=== PATIENT | female | born 1980 | race Caucasian/White ===

== ENCOUNTER 2017-10-26 11:37 | Emergency (ER) | payer BC, OTHER ==
[2017-10-26] MEDS ORDERED: NA CHLORIDE 0.9% 1,000 ML ONE (12:13)
[2017-10-26] MEDS ORDERED: PROMETHAZINE 25 MG/ML VIAL ONE (12:13)
[2017-10-26] MEDS ORDERED: PANTOPRAZOLE 40 MG INJ ONE (12:13)
[2017-10-26 12:20] LABS: Absolute Lymphocytes (CBC) 2.6 K/uL (0.7-4.9); Absolute Monocytes 1.2 K/uL (0.1-1.3); Absolute Neutrophil 9.5 K/uL (1.8-8.0); Basophils % 0.4 % (0-1.3); Eosinophils % 0.8 % (0-4.4); Hematocrit 29.5 % (36.0-45.0); Lymphocytes % 19.3 % (15.3-44.8); MCH 21.1 pg (27.0-35.0); MCV 67.6 fL (80-100); MPV 8.6 fL (7.6-11.3); Monocytes % 8.7 % (3.3-12.3); RBC Red Blood Cell Count 4.36 M/uL (3.86-4.86)
[2017-10-26 13:02] LABS: Blood Morphology Comment NOTED (NOT SEEN); Hypochromasia 1+; Platelet Estimate ADEQ; Urine White Blood Cell Casts OK
[2017-10-26 13:32] LABS: Urine Amorphous Sediment 3+ /HPF (NONE SEEN); Urine Bacteria <20 /HPF (<20); Urine Culture Reflex Order NOT NEEDED; Urine RBC <5 /HPF (NONE SEEN)
[2017-10-26 14:00] LABS: Potassium 3.3 mmol/L (3.5-5.1); Sodium Level 138 mmol/L (136-145)
[2017-10-26 14:01] LABS: ALT/SGPT 19 U/L (12-78); AST/SGOT 14 U/L (15-37); Alkaline Phosphatase 89 U/L (45-117); BUN Blood Urea Nitrogen 12 mg/dL (7-18); Bicarbonate 29 mmol/L (21-32); Glucose Level 100 mg/dL (74-106)
[2017-10-26 14:02] LABS: Albumin 3.9 g/dL (3.4-5.0); Bilirubin Direct < 0.1 mg/dL (0-0.2); Bilirubin Total 0.4 mg/dL (0.2-1.0); Protein, Total 7.8 g/dL (6.4-8.2)
--- NOTE | 2017-10-26 14:37 | RAD REPORT ---
EXAM DESCRIPTION: CT - Stone Protocol - 10/26/2017 2:28 pm CLINICAL HISTORY: Abdominal pain, possible GI bleed COMPARISON: CT imaging December 2013 TECHNIQUE: All CT scans are performed using dose optimization technique as appropriate and may inclu de automated exposure control or mA/KV adjustment according to patient size. Axial 5 mm thick images were obtained without oral or IV contrast. Sagittal and coronal reformatted i mages were generated and reviewed. FINDINGS: No suspicious findings in the lung bases. The liver, spleen, and pancreas show no suspicious findings for a non IV contrast study. Gallbladder and biliary tree are also without suspicious finding. Gallstones can be occult on CT imaging. No hydronephrosis or suspicious mass in either kidney. Isodense masses and pyelonephritis are not exc luded. No urinary bladder abnormality. Uterus and ovaries show no suspicious findings. No dilated bowel loops or bowel wall thickening. No free air, free fluid or inflammatory stranding. N o bowel mass, wall thickening or adjacent stranding. A few small mesenteric lymph nodes are present. No bulky lymphadenopathy, hernia or omental thickening. No suspicious bony findings. Overall exam sensitivity is decreased when no contrast is administered. IMPRESSION: Non-contrast CT abdomen study shows no significant or suspicious finding.
[2017-10-26 14:39] LABS: Amylase Level 32 U/L (25-115); Lipase 187 U/L (73-393)
--- NOTE | 2017-10-26 15:01 | EDPHYS ---
Physician Documentation [facility] Name: Yohana Reeves Age: 37 yrs Sex: Female : 1980 Arrival Date: 10/26/2017 Time: 11:42 Bed 17 Private MD: Rolo Mckinnon ED Physician Yasmani Gaston HPI: 10/26 13:23 This 37 yrs old Female presents to ER via Ambulatory with complaints of snw Abnormal Lab Results, Vomiting. 13:23 The patient presents to the emergency department fatigue and pt found to be anemic per snw PCP, sent to ED to r/o GIB . Onset: The symptoms/episode began/occurred gradually, at an unknown time. Abdominal pain: described as. Associated signs and symptoms: Pertinent positives: near-syncope, vomiting, fatigue. Severity of symptoms: At their worst the symptoms were moderate. The patient has not experienced similar symptoms in the past. The patient has been recently seen by a physician: the patient's primary care provider, Dr. Jean 1 week(s) ago, with similar presenting complaints, and was sent to the [facility] Emergency Department for further evaluation. 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 - Social history:: Smoking status: Patient uses tobacco products, smokes one-half pack cigarettes per day. - Ebola Screening: : No symptoms or risks identified at this time. ROS: 13:22 Eyes: Negative for injury, pain, redness, and discharge, ENT: Negative for injury, snw pain, and discharge, Neck: Negative for injury, pain, and swelling, Cardiovascular: Negative for chest pain, palpitations, and edema, Respiratory: Negative for shortness of breath, cough, wheezing, and pleuritic chest pain, Back: Negative for injury and pain, : Negative for injury, bleeding, discharge, and swelling, MS/Extremity: Negative for injury and deformity, Skin: Negative for injury, rash, and discoloration, Neuro: Negative for headache, weakness, numbness, tingling, and seizure. 13:22 Constitutional: Positive for body aches, malaise, poor PO intake. 13:22 Abdomen/GI: Positive for nausea, vomiting. Exam: 12:00 Constitutional: This is a well developed, well nourished patient who is awake, alert, snw and in no acute distress. Pt states she has been feeling malaise, fatigue for 1 year, worsened over the past week. Saw Dr. Jean for some labwork. Sent to ED for possible GIB. Head/Face: Normocephalic, atraumatic. Eyes: Pupils equal round and reactive to light, extra-ocular motions intact. Lids and lashes normal. Conjunctiva and sclera are non-icteric and not injected. Cornea within normal limits. Periorbital areas with no swelling, redness, or edema. ENT: Nares patent. No nasal discharge, no septal abnormalities noted. Tympanic membranes are normal and external auditory canals are clear. Oropharynx with no redness, swelling, or masses, exudates, or evidence of obstruction, uvula midline. Mucous membranes moist. Neck: Trachea midline, no thyromegaly or masses palpated, and no cervical lymphadenopathy. Supple, full range of motion without nuchal rigidity, or vertebral point tenderness. No Meningismus. Chest/axilla: Normal chest wall appearance and motion. Nontender with no deformity. No lesions are appreciated. Cardiovascular: Regular rate and rhythm with a normal S1 and S2. No gallops, murmurs, or rubs. Normal PMI, no JVD. No pulse deficits. Respiratory: Lungs have equal breath sounds bilaterally, clear to auscultation and percussion. No rales, rhonchi or wheezes noted. No increased work of breathing, no retractions or nasal flaring. Abdomen/GI: Soft, mildly tender to suprapubic area, with normal bowel sounds. No distension or tympany. No guarding or rebound. Guaiac negative Back: No spinal tenderness. No costovertebral tenderness. Full range of motion. Skin: Warm, dry with normal turgor. Normal color with no rashes, no lesions, and no evidence of cellulitis. MS/ Extremity: Pulses equal, no cyanosis. Neurovascular intact. Full, normal range of motion. Neuro: Awake and alert, GCS 15, oriented to person, place, time, and situation. Cranial nerves II-XII grossly intact. Motor strength 5/5 in all extremities. Sensory grossly intact. Cerebellar exam normal. Normal gait. Vital Signs: 11:47 BP 120 / 60; Pulse 77; Resp 16 S; Temp 97.9(TE); Pulse Ox 97% on R/A; Weight 73.94 kg aa5 (R); Height 5 ft. 2 in. (157.48 cm) (R); Pain 8/10; 13:01 BP 107 / 68; Pulse 63; Resp 13; Pulse Ox 99% on R/A; mh5 13:47 BP 107 / 63; Pulse 68; Resp 15; Pulse Ox 98% on R/A; mh5 14:56 BP 125 / 69; Pulse 67; Resp 15; Pulse Ox 100% on R/A; mh5 11:47 Body Mass Index 29.81 (73.94 kg, 157.48 cm) aa5 MDM: 11:49 Patient medically screened. snw 15:16 Data reviewed: vital signs, nurses notes. Data interpreted: Pulse oximetry: on room air snw is 100 %. Interpretation: normal. Counseling: I had a detailed discussion with the patient and/or guardian regarding: the historical points, exam findings, and any diagnostic results supporting the discharge/admit diagnosis, lab results, radiology results, the need for outpatient follow up, to return to the emergency department if symptoms worsen or persist or if there are any questions or concerns that arise at home. Special discussion: Based on the patient's Hx, exam, and Dx evaluation, there is no indication for emergent surgery or inpatient Tx. It is understood by the patient/guardian that if the Sx's persist or worsen they need to return immediately for re-evaluation. Based on the history and exam findings, there is no indication for further emergent testing or inpatient evaluation. I discussed with the patient/guardian the need to see the producer for further evaluation of the symptoms. I discussed with the patient/guardian the need to see the primary care provider for further evaluation of the symptoms. 10/26 11:59 Order name: Amylase, Serum; Complete Time: 14:58 snw 10/26 11:59 Order name: Basic Metabolic Panel; Complete Time: 14:58 snw 10/26 11:59 Order name: CBC with Diff; Complete Time: 13:12 snw 10/26 11:59 Order name: Creatinine for Radiology; Complete Time: 12:47 snw 10/26 11:59 Order name: Hepatic Function; Complete Time: 14:58 snw 10/26 11:59 Order name: Lipase; Complete Time: 14:58 snw 10/26 11:59 Order name: Urine Microscopic Only; Complete Time: 13:43 snw 10/26 11:59 Order name: TSH; Complete Time: 14:58 snw 10/26 12:20 Order name: CBC Smear Scan; Complete Time: 13:12 EDNY 10/26 12:21 Order name: Type and Screen Tube method; Complete Time: 13:12 EDNY 10/26 12:27 Order name: Urine Dipstick--Ancillary (enter results) 10/26 12:27 Order name: Urine --Ancillary (enter results) 10/26 13:23 Order name: ABO/RH no charge; Complete Time: 13:25 EDNY 10/26 11:59 Order name: Urine Test (obtain specimen); Complete Time: 12:39 snw 10/26 11:59 Order name: IV Saline Lock; Complete Time: 12:01 snw 10/26 11:59 Order name: Labs collected and sent; Complete Time: 12:39 snw 10/26 11:59 Order name: Urine Dipstick-Ancillary (obtain specimen); Complete Time: 12:39 snw 10/26 13:47 Order name: CT Stone Protocol; Complete Time: 14:39 snw Administered Medications: 12:25 Drug: NS 0.9% 1000 ml Route: IV; Rate: 125 ml/hr; Site: right antecubital; jl7 15:17 Follow up: Response: No adverse reaction; IV Status: IV converted to saline lock; Order jl7 to discontinue infusion; IV Intake: 325ml 12:26 Drug: ProTONIX 40 mg Route: IVP; Site: right antecubital; jl7 13:00 Follow up: Response: No adverse reaction jl7 12:28 Drug: Phenergan 6.25 mg Route: IVP; Site: right antecubital; jl7 13:00 Follow up: Response: No adverse reaction; Nausea is decreased jl7 15:10 Drug: TORadol 30 mg Route: IVP; Site: right antecubital; jl7 15:10 Follow up: Response: Medication administered at discharge. jl7 Disposition: 10/26/17 15:00 Discharged to Home. Impression: Iron deficiency anemia, unspecified, Abdominal tenderness. - Condition is Stable. - Discharge Instructions: Iron Deficiency Anemia, Adult, Iron-Rich Diet, Potassium Content of Foods, Abdominal Pain, Women, Hypokalemia. - Prescriptions for Bentyl 20 mg Oral Tablet - take 1 tablet by ORAL route every 6 hours As needed; 20 tablet. promethazine 25 mg Oral Tablet - take 1 tablet by ORAL route every 6 hours As needed; 20 tablet. - Medication Reconciliation Form, Thank You Letter, Antibiotic Education, Prescription Opioid Use, Work release form form. - Follow up: Private Physician; When: 1 - 2 days; Reason: Recheck today's complaints, Continuance of care, Re-evaluation by your physician. Follow up: Emergency Department; When: As needed; Reason: Worsening of condition. Addendum: 10/29/2017 06:17 Co-signature as Attending Physician, Yasmani Gaston MD. g s Signatures: Dispatcher [employer] [facility] Ashley Kingsley, LINUX UNIX ENGINEER-C LINUX UNIX ENGINEER-Csnw Tianna Henry, RN RN aa5 Kb Martinez RN RN jl7 Yasmani Gaston MD MD gs Corrections: (The following items were deleted from the chart) 10/26 12:21 12:00 TYPE AND SCREEN+[id number].BRZ ordered. [facility] 15:31 15:00 10/26/2017 15:00 Discharged to Home. Impression: Iron deficiency anemia, jl7 unspecified; Abdominal tenderness. Condition is Stable. Forms are Medication Reconciliation Form, Thank You Letter, Antibiotic Education, Prescription Opioid Use. Follow up: Private Physician; When: 1 - 2 days; Reason: Recheck today's complaints, Continuance of care, Re-evaluation by your physician. Follow up: Emergency Department; When: As needed; Reason: Worsening of condition. snw
--- NOTE | 2017-10-26 15:01 | ER ---
Nurse's Notes [facility] Name: Yohana Reeves Age: 37 yrs Sex: Female : 1980 Arrival Date: 10/26/2017 Time: 11:42 Bed 17 Private MD: Rolo Mckinnon Diagnosis: Iron deficiency anemia, unspecified;Abdominal tenderness Presentation: 10/26 11:45 Presenting complaint: Patient states: Dr. Jean sent me here for a possible GI bleed. Pt aa5 reports having blood work done 10/20/17 and showed Hemoglobin 8.5, Hematocrit 29.7, and Iron 12. Pt c/o abd pain, N/V. Transition of care: patient was not received from another setting of care. Onset of symptoms was October 2017. Risk Assessment: Do you want to hurt yourself or someone else? Patient reports no desire to harm self or others. Initial Sepsis Screen: Does the patient meet any 2 criteria? No. Patient's initial sepsis screen is negative. Does the patient have a suspected source of infection? No. Patient's initial sepsis screen is negative. Care prior to arrival: None. 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 - Social history:: Smoking status: Patient uses tobacco products, smokes one-half pack cigarettes per day. - Ebola Screening: : No symptoms or risks identified at this time. Screenin:10 Abuse screen: Denies threats or abuse. Denies injuries from another. Nutritional jl7 screening: No deficits noted. Tuberculosis screening: No symptoms or risk factors identified. Fall Risk IV access (20 points). Total Mora Fall Scale indicates No Risk (0-24 pts). Assessment: 12:10 General: Appears in no apparent distress. uncomfortable, Behavior is calm, cooperative, jl7 appropriate for age. Pain: Denies pain. Neuro: Level of Consciousness is awake, alert, obeys commands, Oriented to person, place, time, situation. Cardiovascular: Patient's skin is warm and dry. Respiratory: Airway is patent Respiratory effort is even, unlabored, Respiratory pattern is regular, symmetrical. GI: Abdomen is round non-distended, Reports nausea, vomiting. : No signs and/or symptoms were reported regarding the genitourinary system. EENT: No signs and/or symptoms were reported regarding the EENT system. Derm: Skin is dry, Skin is pale, Skin temperature is warm. 13:00 Reassessment: Patient and/or family updated on plan of care and expected duration. Pain jl7 level reassessed. Patient is alert, oriented x 3, equal unlabored respirations, skin warm/dry/pink. 13:45 Reassessment: Pt reports intermittent lower abdominal pain, rated 7/10, does not jl7 radiate, feels sharp. Provider notified, CT ordered. 13:53 Reassessment: Chemistry orthodontic lab technician reports results will be complete in 10 min. jl7 14:30 Reassessment: Patient and/or family updated on plan of care and expected duration. Pain jl7 level reassessed. Patient is alert, oriented x 3, equal unlabored respirations, skin warm/dry/pink. 15:16 Reassessment: Provider at bedside discussing plan of care. jl7 Vital Signs: 11:47 BP 120 / 60; Pulse 77; Resp 16 S; Temp 97.9(TE); Pulse Ox 97% on R/A; Weight 73.94 kg aa5 (R); Height 5 ft. 2 in. (157.48 cm) (R); Pain 8/10; 13:01 BP 107 / 68; Pulse 63; Resp 13; Pulse Ox 99% on R/A; mh5 13:47 BP 107 / 63; Pulse 68; Resp 15; Pulse Ox 98% on R/A; mh5 14:56 BP 125 / 69; Pulse 67; Resp 15; Pulse Ox 100% on R/A; mh5 11:47 Body Mass Index 29.81 (73.94 kg, 157.48 cm) aa5 ED Course: 11:42 Patient arrived in ED. mr 11:42 Rolo Mckinnon MD is Private Physician. mr 11:47 Triage completed. aa5 11:47 Arm band placed on. aa5 11:48 Ashley Kings[facility]NP-C [facility]. snw 11:49 Yasmani Gaston MD is Attending Physician. snw 12:01 Kb Martinez, FÁTIMA is Primary Nurse. jl7 12:01 Served as a clinical operations manager during rectal exam. jl7 12:04 Initial lab(s) drawn, by me, sent to lab. Urine collected: clean catch specimen. jl7 Inserted saline lock: 20 gauge in right antecubital area, using aseptic technique. Blood collected. 12:10 Patient has correct armband on for positive identification. Placed in gown. Bed in low jl7 position. Call light in reach. Side rails up X 1. Pulse ox on. NIBP on. Warm blanket given. 13:00 Awaiting lab results. jl7 13:53 Awaiting lab results. jl7 14:24 CT completed. Patient tolerated procedure well. Patient moved to CT. Patient moved back mw3 from CT. 14:25 CT Stone Protocol In Process Unspecified. EDMS Administered Medications: 12:25 Drug: NS 0.9% 1000 ml Route: IV; Rate: 125 ml/hr; Site: right antecubital; jl7 15:17 Follow up: Response: No adverse reaction; IV Status: IV converted to saline lock; Order jl7 to discontinue infusion; IV Intake: 325ml 12:26 Drug: ProTONIX 40 mg Route: IVP; Site: right antecubital; jl7 13:00 Follow up: Response: No adverse reaction jl7 12:28 Drug: Phenergan 6.25 mg Route: IVP; Site: right antecubital; jl7 13:00 Follow up: Response: No adverse reaction; Nausea is decreased jl7 15:10 Drug: TORadol 30 mg Route: IVP; Site: right antecubital; jl7 15:10 Follow up: Response: Medication administered at discharge. jl7 Intake: 15:17 IV: 325ml; Total: 325ml. jl7 Outcome: 15:00 Discharge ordered by . snw 15:31 Patient left the ED. jl7 Signatures: Dispatcher [employer] EDMS Ashley Kingsley, JOEL DIAMOND DIE MAKER-Sonya Elkins CarlTianna, RN RN Sonya Jay Kb Rivas RN RN jl7 Ai Victoria mw3 Corrections: (The following items were deleted from the chart) 19:18 16:40 Response: No adverse reaction; Pain is decreased jl7 jl7
[2017-10-26] MEDS ORDERED: KETOROLAC 30 MG/ML INJ ONE (15:16)
[2017-10-26 15:36] VITALS: TEMP 97.9
[2017-10-26 15:40] VITALS: BP 125/69; O2SAT 100
[2017-10-26 15:47] LABS: Urine Blood NEGATIVE (NEG); Urine Glucose NEGATIVE (NEG); Urine Protein TRACE (NEG); Urine Specific Gravity 1.025 (1.005-1.030); Urine pH 5.5 (5.0-7.0)
== END 2017-10-26 15:31 | disposition home or self-care (01) ==
LOC: ER 11:37
DX: D50.9 Iron deficiency anemia, unspecified (principal); R10.819 Abdominal tenderness, unspecified site; F17.210 Nicotine dependence, cigarettes, uncomplicated
CPT/HCPCS: 36415; 74176; 76377; 80048; 80076; 81003; 81015; 81025; 82150; 83690; 84443; 85025; 86850; 86900; 86901; 96361; 96374; 96375; 99284; C9113; J2550; J7030

== ENCOUNTER 2018-03-08 09:43 | Emergency (ER) | payer OTHER ==
--- NOTE | 2018-03-08 11:09 | RAD REPORT ---
EXAM DESCRIPTION: RAD - Chest Pa And Lat (2 Views) - 03/08/2018 11:02 am CLINICAL HISTORY: Cough;Chest pain Chest pain. COMPARISON: Chest Single View dated 08/20/2016; CHEST SINGLE VIEW dated 02/28/2015; CHEST SINGLE VIEW dated 06/28/2013; CHEST SINGLE VIEW dated 03/18/2012 FINDINGS: The lungs are clear. The heart is normal in size. No displaced fractures. IMPRESSION: No acute or concerning finding suspected.
[2018-03-08] MEDS ORDERED: ONDANSETRON 4 MG (ODT) TAB ONE (11:26)
[2018-03-08] MEDS ORDERED: KETOROLAC 30 MG/ML INJ ONE (11:55)
--- NOTE | 2018-03-08 11:56 | EDPHYS ---
Physician Documentation [facility] Name: Yohana Reeves Age: 37 yrs Sex: Female : 1980 Arrival Date: 03/08/2018 Time: 09:46 Bed 20 Private MD: Jordan Jean T ED Physician Blade Haas HPI: 03/08 10:24 This 37 yrs old Female presents to ER via Ambulatory with complaints of Chest rn Pain, Shortness Of Breath. 10:24 The patient or guardian reports cough, that is intermittent, described as mild, with no rn sputum. Onset: The symptoms/episode began/occurred 2 day(s) ago. Severity of symptoms: At their worst the symptoms were mild, in the emergency department the symptoms are unchanged. 10:24 Modifying factors: The symptoms are alleviated by nothing, the symptoms are aggravated rn by nothing. The patient has not experienced similar symptoms in the past. The patient has not recently seen a physician. REports cough, sob, congestion, chest pain that shoots to back, no hemoptysis, + subjective fever. . 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 - Social history:: Smoking status: Patient uses tobacco products, smokes one-half pack cigarettes per day. - Ebola Screening: : Patient negative for fever greater than or equal to 101.5 degrees Fahrenheit, and additional compatible Ebola Virus Disease symptoms Patient denies exposure to infectious person Patient denies travel to an Ebola-affected area in the 21 days before illness onset No symptoms or risks identified at this time. - Family history:: not pertinent. - Hospitalizations: : No recent hospitalization is reported. ROS: 10:24 Constitutional: + fever and chills Eyes: Negative for injury, pain, redness, and internist, ENT: + sore throat and nasal congestion Neck: Negative for injury, pain, and swelling, Cardiovascular: + chest pain Respiratory: + cough and sob Abdomen/GI: Negative for abdominal pain, + nausea and diarrhea MS/Extremity: Negative for injury and deformity, Skin: Negative for injury, rash, and discoloration, Neuro: Negative for numbness, tingling, and seizure. Exam: 10:24 Constitutional: This is a well developed, well nourished patient who is awake, alert, rn and in no acute distress. Head/Face: Normocephalic, atraumatic. Eyes: Pupils equal round and reactive to light, extra-ocular motions intact. Lids and lashes normal. Conjunctiva and sclera are non-icteric and not injected. Cornea within normal limits. Periorbital areas with no swelling, redness, or edema. ENT: + nasal congestion and nasal speech, MMM, no stridor, no exudate or swelling in pharynx, + non-tender bilateral cervical LAD Cardiovascular: Regular rate and rhythm with a normal S1 and S2. No pulse deficits. Respiratory: Lungs have equal breath sounds bilaterally, clear to auscultation. No increased work of breathing, no retractions or nasal flaring. Abdomen/GI: soft, non-tender Skin: Warm, dry MS/ Extremity: Pulses equal, no cyanosis. Neurovascular intact. Full, normal range of motion. Equal circumference. Neuro: Awake and alert, GCS 15, oriented to person, place, time, and situation. Cranial nerves II-XII grossly intact. Motor strength 5/5 in all extremities. Sensory grossly intact. Cerebellar exam normal. Normal gait. Vital Signs: 10:09 BP 122 / 64; Pulse 77; Resp 16; Temp 98.0; Pulse Ox 100% on R/A; Weight 70.31 kg; iw Height 5 ft. 2 in. (157.48 cm); Pain 8/10; 11:10 BP 119 / 86; Pulse 94; Resp 16; Pulse Ox 98% on R/A; ca1 10:09 Body Mass Index 28.35 (70.31 kg, 157.48 cm) iw MDM: 10:13 Patient medically screened. rn 11:45 Differential Diagnosis: Bronchitis Influenza Upper Respiratory Infection Viral Syndrome rn Pneumonia. Data reviewed: vital signs, nurses notes, lab test result(s), EKG, radiologic studies, plain films, and as a result, I will discharge patient. Counseling: I had a detailed discussion with the patient and/or guardian regarding: the historical points, exam findings, and any diagnostic results supporting the discharge/admit diagnosis, lab results, radiology results, the need for outpatient follow up, to return to the emergency department if symptoms worsen or persist or if there are any questions or concerns that arise at home. Special discussion: Based on the patient's history, exam, and Dx evaluation, there is no indication for emergent intervention or inpatient Tx. It is understood by the patient/guardian that if the Sx's persist or worsen they need to return immediately for re-evaluation. I discussed with the patient/guardian in detail that at this point there is no indication for admission to the hospital. It is understood, however, that if the symptoms persist or worsen the patient needs to return immediately for re-evaluation. 03/08 10:16 Order name: Strep; Complete Time: 11:16 ss 03/08 10:16 Order name: Flu; Complete Time: 11:16 ss 03/08 10:17 Order name: XRAY Chest Pa And Lat (2 Views); Complete Time: 11:16 rn 03/08 11:09 Order name: Throat Culture EDMS 03/08 10:17 Order name: EKG; Complete Time: 10:18 rn 03/08 10:17 Order name: EKG - Nurse/Tech; Complete Time: 10:22 rn Administered Medications: 11:25 Drug: Zofran 4 mg Route: PO; ca1 11:52 Follow up: Response: Nausea is decreased hb 11:52 Drug: TORadol 30 mg Route: IM; Site: left deltoid; hb Disposition: 03/08/18 11:46 Discharged to Home. Impression: Pleurisy, Bronchitis, not specified as acute or chronic. - Condition is Stable. - Discharge Instructions: Pleurisy, Cough, Adult. - Prescriptions for Ibuprofen 800 mg Oral Tablet - take 1 tablet by ORAL route every 12 hours As needed take with food; 20 tablet. Zithromax Z- Vaughn 250 mg Oral Tablet - take 1 tablet by ORAL route as directed for 5 days Day 1 - take two (2) tablets one time. Day 2, 3, 4 , 5 take one (1) tablet once daily.; 6 tablet. - Work release form, Medication Reconciliation Form, Thank You Letter, Antibiotic Education, Prescription Opioid Use form. - Follow up: Private Physician; When: As needed; Reason: Recheck today's complaints, Re-evaluation by your physician. - Problem is new. - Symptoms have improved. Signatures: Dispatcher [employer] Rose Morin RN RN iw Nieto, Roman, MD MD rn Baxter, Heather, RN RN Acob, FÁTIMA Chun RN ca1 Corrections: (The following items were deleted from the chart) 12:26 11:46 03/08/2018 11:46 Discharged to Home. Impression: Pleurisy; Bronchitis, not ca1 specified as acute or chronic. Condition is Stable. Forms are Medication Reconciliation Form, Thank You Letter, Antibiotic Education, Prescription Opioid Use. Follow up: Private Physician; When: As needed; Reason: Recheck today's complaints, Re-evaluation by your physician. Problem is new. Symptoms have improved. rn
--- NOTE | 2018-03-08 11:56 | ER ---
Nurse's Notes [facility] Name: Yohana Reeves Age: 37 yrs Sex: Female : 1980 Arrival Date: 03/08/2018 Time: 09:46 Bed 20 Private MD: Jordan Jean T Diagnosis: Pleurisy;Bronchitis, not specified as acute or chronic Presentation: 03/08 10:06 Presenting complaint: Patient states: feels like she has pneumonia, has had non iw productive cough, also has had vomiting and diarrhea, started thurs, this morning stated having left sided chest pain shooting to her back, intermittent fever X 2 days. Transition of care: patient was not received from another setting of care. Onset of symptoms was March 03, 2018. Risk Assessment: Do you want to hurt yourself or someone else? Patient reports no desire to harm self or others. Initial Sepsis Screen: Does the patient meet any 2 criteria? No. Patient's initial sepsis screen is negative. Does the patient have a suspected source of infection? No. Patient's initial sepsis screen is negative. Care prior to arrival: None. 10:06 Method Of Arrival: Ambulatory iw 10:06 Acuity: NICOLASA 3 iw OPERATIONS/DISPATCH: 10:09 LMP 01/11/2018 iw Historical: - Allergies: 10:09 NKDA; iw - Home Meds: 10:09 Ziac 5-6.25 mg Oral tab once daily [Active]; aspirin 81 mg Oral TbEC 1 tab once daily iw [Active]; Zanaflex 4 mg Oral tab nightly [Active]; hydrocodone-acetaminophen 5-325 mg Oral tab twice a day [Active]; - PMHx: 10:09 Myocardial infarction; Herniated disc; mitral valve prolapse; iw - PSHx: 10:09 ; iw 10:10 Tubal ligation; iw - Immunization history:: Adult Immunizations not up to date. - Social history:: Smoking status: Patient uses tobacco products, smokes one-half pack cigarettes per day. - Ebola Screening: : Patient negative for fever greater than or equal to 101.5 degrees Fahrenheit, and additional compatible Ebola Virus Disease symptoms Patient denies exposure to infectious person Patient denies travel to an Ebola-affected area in the 21 days before illness onset No symptoms or risks identified at this time. - Family history:: not pertinent. - Hospitalizations: : No recent hospitalization is reported. Screenin:28 Abuse screen: Denies threats or abuse. Denies injuries from another. Nutritional ss screening: No deficits noted. Tuberculosis screening: No symptoms or risk factors identified. Never had TB. Fall Risk None identified. Assessment: 10:28 General: Appears uncomfortable, ill, Behavior is calm, cooperative, Reports feeling ill ss for x 5 days. fatigue for x 5 days. Denies fever. Pain: Complains of pain in mid-sternal area Pain radiates to back Pain currently is 8 out of 10 on a pain scale. Quality of pain is described as sharp, Pain began "this morning" Is continuous, Aggravated by deep breathing. Neuro: Level of Consciousness is awake, alert, obeys commands, Oriented to person, place, time, situation. Cardiovascular: Capillary refill < 3 seconds is brisk in bilateral fingers Patient's skin is warm and dry. Respiratory: Reports shortness of breath that may be because of nasal congestion Airway is patent Respiratory effort is even, unlabored, Respiratory pattern is regular, symmetrical. GI: Patient currently denies abdominal pain, diarrhea, nausea, vomiting. : No signs and/or symptoms were reported regarding the genitourinary system. EENT: Nares are clear Oral mucosa is moist. Throat is clear Reports nasal congestion since 5 days ago nasal discharge that is watery since 5 days ago. Derm: Skin is intact, is healthy with good turgor, Skin is dry, Skin is pink, warm \\T\\ dry. normal. 11:26 Reassessment: Pt c/o left lateral chest pain and nausea, Dr. Haas notified, Zofran hb administered as ordered. Vital Signs: 10:09 BP 122 / 64; Pulse 77; Resp 16; Temp 98.0; Pulse Ox 100% on R/A; Weight 70.31 kg; iw Height 5 ft. 2 in. (157.48 cm); Pain 8/10; 11:10 BP 119 / 86; Pulse 94; Resp 16; Pulse Ox 98% on R/A; ca1 10:09 Body Mass Index 28.35 (70.31 kg, 157.48 cm) iw ED Course: 09:46 Patient arrived in ED. sb2 09:46 Jordan Jean MD is Private Physician. sb2 10:07 Triage completed. iw 10:09 Arm band placed on. iw 10:13 Blade Haas MD is Attending Physician. rn 10:22 Flu Sent. jmm 10:22 Strep Sent. jmm 10:23 EKG done, by cinetechnician. reviewed by Blade Haas MD. at1 10:28 Rochelle Siddiqui, RN is Primary Nurse. ss 10:28 Patient has correct armband on for positive identification. Bed in low position. Call ss light in reach. Side rails up X 1. Pulse ox on. NIBP on. 10:28 Patient maintains SpO2 saturation greater than 95% on room air. ss 11:01 X-ray completed. Patient tolerated procedure well. Patient moved back from radiology. jb2 11:02 XRAY Chest Pa And Lat (2 Views) In Process Unspecified. EDMS Administered Medications: 11:25 Drug: Zofran 4 mg Route: PO; ca1 11:52 Follow up: Response: Nausea is decreased hb 11:52 Drug: TORadol 30 mg Route: IM; Site: left deltoid; hb Outcome: 11:46 Discharge ordered by MD. rn 12:26 Patient left the ED. ca1 Signatures: Dispatcher [employer] EDMS Lance Smart PA PA Avinash Oliver jb2 Rose Sims, RN RN iw Blade Haas MD MD rn Smirch, Shelby, RN RN Elise Hurd, coin machine collector supervisor EKG Tat1 Adelita Richmond, RN RN Maggie Leal sb2 Lay Montana RN RN ca1
--- NOTE | 2018-03-08 12:39 | EKG ---
Test Date: 2018-03-08 Test Time: 10:17:25 Full Stack Software Developer: CHAD MEASUREMENT RESULTS: Intervals: Rate: 79 MT: 110 QRSD: 82 QT: 400 QTc: 458 [place]: P: 69 MT: 110 QRS: 70 T: 52 INTERPRETIVE STATEMENTS: Sinus rhythm with short MT Otherwise normal ECG Compared to ECG 08/20/2016 14:35:29 Short MT interval now present Sinus tachycardia no longer present T-wave abnormality no longer present Electronically Signed On 03-08-18 12:38:49 CLOUD SUBJECT MATTER EXPERT by Zeyad Brown
[2018-03-08 20:04] VITALS: TEMP 98
[2018-03-08 20:06] VITALS: BP 119/86; O2SAT 98
== END 2018-03-08 12:26 | disposition home or self-care (01) ==
LOC: ER 09:43
DX: J40 Bronchitis, not specified as acute or chronic (principal); F17.210 Nicotine dependence, cigarettes, uncomplicated; I25.2 Old myocardial infarction; I34.1 Nonrheumatic mitral (valve) prolapse; Z79.82 Long term (current) use of aspirin; Z79.891 Long term (current) use of opiate analgesic; Z79.899 Other long term (current) drug therapy
CPT/HCPCS: 71046; 87070; 87081; 87804; 93005; 96372; 99284

== ENCOUNTER 2018-03-08 23:49 | Emergency (ER) | payer OTHER ==
[2018-03-09] MEDS ORDERED: NA CHLORIDE 0.9% 1,000 ML ONE (00:39)
[2018-03-09] MEDS ORDERED: MORPHINE 4 MG/ML SYR ONE ×2 (00:39→03:28)
[2018-03-09] MEDS ORDERED: ONDANSETRON 4 MG/2 ML VIAL ONE (00:39)
[2018-03-09 00:52] LABS: Absolute Lymphocytes (CBC) 3.3 K/uL (0.7-4.9); Absolute Monocytes 0.7 K/uL (0.1-1.3); Absolute Neutrophil 12.3 K/uL (1.8-8.0); Eosinophils % 1.6 % (0-4.4); Hematocrit 33.8 % (36.0-45.0); Lymphocytes % 19.5 % (15.3-44.8); MCV 65.3 fL (80-100); MPV 9.3 fL (7.6-11.3); Monocytes % 4.2 % (3.3-12.3); RBC Red Blood Cell Count 5.17 M/uL (3.86-4.86)
[2018-03-09 01:21] LABS: ALT/SGPT 19 U/L (12-78); AST/SGOT 8 U/L (15-37); Albumin 3.9 g/dL (3.4-5.0); Alkaline Phosphatase 102 U/L (45-117); BUN Blood Urea Nitrogen 16 mg/dL (7-18); Bicarbonate 28 mmol/L (21-32); Bilirubin Direct < 0.1 mg/dL (0-0.2); Bilirubin Total 0.3 mg/dL (0.2-1.0); Glucose Level 115 mg/dL (74-106); Lipase 294 U/L (73-393); Potassium 3.4 mmol/L (3.5-5.1); Protein, Total 7.7 g/dL (6.4-8.2); Sodium Level 137 mmol/L (136-145)
[2018-03-09 02:04] LABS: Blood Morphology Comment NOTED (NOT SEEN); Urine White Blood Cell Casts OK
[2018-03-09 02:06] LABS: Hypochromasia 1+; Platelet Estimate ADEQ
[2018-03-09] MEDS ORDERED: KETOROLAC 30 MG/ML INJ ONE (02:07)
--- NOTE | 2018-03-09 02:45 | ER ---
Nurse's Notes [facility] Name: Yohana Reeves Age: 37 yrs Sex: Female : 1980 Arrival Date: 03/08/2018 Time: 23:51 Bed 5 Private MD: Jordan Jean T Diagnosis: Vomiting;Diarrhea, unspecified;Unspecified abdominal pain Presentation: 03/09 00:02 Presenting complaint: Patient states: LLQ abdominal pain that began at 1600 today, lp1 vomited x 1; Denies any diarrhea, fever. Transition of care: patient was not received from another setting of care. Onset of symptoms was March 08, 2018 at 16:00. Risk Assessment: Do you want to hurt yourself or someone else? Patient reports no desire to harm self or others. Initial Sepsis Screen: Does the patient meet any 2 criteria? No. Patient's initial sepsis screen is negative. Does the patient have a suspected source of infection? No. Patient's initial sepsis screen is negative. Care prior to arrival: None. 00:02 Method Of Arrival: Wheelchair lp1 00:02 Acuity: NICOLASA 3 lp1 WOOL GROWER: 00:06 LMP N/A - Irregular menses lp1 Historical: - Allergies: 00:06 NKDA; lp1 - Home Meds: 00:06 aspirin 81 mg Oral TbEC 1 tab once daily [Active]; Bystolic Oral [Active]; lp1 hydrocodone-acetaminophen 5-325 mg Oral tab twice a day [Active]; Imipramine Oral [Active]; tizanidine Oral [Active]; Xanax Oral [Active]; Zanaflex 4 mg Oral tab nightly [Active]; Ziac 5-6.25 mg Oral tab once daily [Active]; Zolpidem Tartrate Oral [Active]; - PMHx: 00:06 Herniated disc; mitral valve prolapse; Myocardial infarction; Hypertension; Colitis; lp1 - PSHx: 00:06 ; lp1 - Immunization history:: Adult Immunizations up to date. - Social history:: Smoking status: Patient uses tobacco products, smokes one-half pack cigarettes per day. - Ebola Screening: : No symptoms or risks identified at this time. Screenin:06 Abuse screen: Denies threats or abuse. Denies injuries from another. Nutritional lp1 screening: No deficits noted. Tuberculosis screening: No symptoms or risk factors identified. Fall Risk None identified. Assessment: 00:30 General: Appears in no apparent distress. uncomfortable, Behavior is calm, cooperative, tl1 appropriate for age. Pain: Complains of pain in left lower quadrant. Neuro: Level of Consciousness is awake, alert, obeys commands, Oriented to person, place, time, situation. Cardiovascular: Denies chest pain. Respiratory: Reports cough that is Airway is patent Trachea midline Respiratory effort is even, unlabored, Breath sounds are clear bilaterally. GI: Abdomen is non-distended, Bowel sounds present X 4 quads. hyperactive in right upper quadrant, left upper quadrant, right lower quadrant and left lower quadrant Abd is soft Abdomen is tender to palpation in left lower quadrant Reports lower abdominal pain, diarrhea, nausea, vomiting. : No signs and/or symptoms were reported regarding the genitourinary system. EENT: No signs and/or symptoms were reported regarding the EENT system. 02:26 Reassessment: Patient appears in no apparent distress at this time. Patient and/or tl2 family updated on plan of care and expected duration. Pain level reassessed. Patient is alert, oriented x 3, equal unlabored respirations, skin warm/dry/pink. pt having multiple bowel movements. Vital Signs: 00:06 BP 150 / 84; Pulse 87; Resp 18; Temp 98.3(O); Pulse Ox 98% on R/A; Weight 70.31 kg; lp1 Height 5 ft. 2 in. (157.48 cm); Pain 10/10; 01:40 BP 144 / 76; Pulse 59; Resp 18; Pulse Ox 100% on R/A; tl2 02:26 BP 122 / 72; Pulse 67; Resp 18; Pulse Ox 100% on R/A; tl2 03:39 BP 129 / 83; Pulse 69; Resp 17; Temp 98.5; Pulse Ox 99% ; Pain 3/10; tl1 00:06 Body Mass Index 28.35 (70.31 kg, 157.48 cm) lp1 ED Course: 03/08 23:51 Patient arrived in ED. es 23:52 Jordan Jean MD is Private Physician. es 23:59 [facility] pm1 23:59 Yasmani Gaston MD is Attending Physician. pm1 03/09 00:04 Triage completed. lp1 00:06 Arm band placed on left wrist. lp1 00:07 Patient has correct armband on for positive identification. Placed in gown. Bed in low lp1 position. Call light in reach. Pulse ox on. NIBP on. 00:25 Inserted saline lock: 20 gauge in right antecubital area, using aseptic technique. lp1 Blood collected. 00:32 Marilou Yanez RN is Primary Nurse. tl1 01:[address] via wheelchair. kw1 01:26 CT Stone Protocol In Process Unspecified. EDMS 01:26 CT completed. Patient tolerated procedure well. Patient moved back from CT. kw1 02:44 Jordan Jean MD is Referral Physician. pm1 03:40 No provider procedures requiring assistance completed. IV discontinued, intact, tl1 bleeding controlled, No redness/swelling at site. Pressure dressing applied. Administered Medications: 00:37 Drug: Zofran 4 mg Route: IVP; Site: right antecubital; bb 03:00 Follow up: Response: No adverse reaction; Marked relief of symptoms; Nausea is decreasedtl1 00:37 Drug: morphine 4 mg Route: IVP; Site: right antecubital; bb 03:00 Follow up: Response: No adverse reaction; Marked relief of symptoms; Pain is decreased tl1 00:37 Drug: NS 0.9% 1000 ml Route: IV; Rate: 1000 ml; Site: right antecubital; bb 01:30 Follow up: IV Status: Completed infusion tl1 02:05 Drug: TORadol 30 mg Route: IVP; Site: right antecubital; tl2 03:01 Follow up: Response: No adverse reaction; Marked relief of symptoms; Pain is decreased tl1 03:19 Drug: morphine 4 mg Route: IVP; Site: right antecubital; tl2 03:37 Follow up: Response: No adverse reaction; Marked relief of symptoms; Pain is decreased tl1 Outcome: 02:45 Discharge ordered by . pm1 03:40 Discharged to home via wheelchair, with family. tl1 03:40 Condition: improved 03:40 Discharge instructions given to patient, family, Instructed on discharge instructions, follow up and referral plans. medication usage, Demonstrated understanding of instructions, follow-up care, medications, Prescriptions given X 3. 03:41 Patient left the ED. tl1 Signatures: Dispatcher [employer] Iliana Madrigal Brenda, RN RN bb Maite Grijalva, RN RN lp1 Marilou Yanez RN RN tl1 Marcelino Darby, LEE EGG BUYER pm1 Wendy Valencia RN RN tl2 Mary Olivas
--- NOTE | 2018-03-09 02:45 | EDPHYS ---
Physician Documentation [facility] Name: Yohana Reeves Age: 37 yrs Sex: Female : 1980 Arrival Date: 03/08/2018 Time: 23:51 Bed 5 Private MD: Jordan Jean T ED Physician Yasmani Gaston HPI: 03/09 02:00 This 37 yrs old Female presents to ER via Wheelchair with complaints of pm1 Vomiting, Diarrhea, Abdominal Pain. 02:00 The patient presents to the emergency department with vomiting, diarrhea, Left flank pm1 pain. Onset: The symptoms/episode began/occurred 3 day(s) ago. Possible causes: unknown. The symptoms are aggravated by nothing. The symptoms are alleviated by nothing. Associated signs and symptoms: Pertinent negatives: dysuria, fever. Severity of symptoms: in the emergency department the symptoms are worse. The patient has been recently seen at the [facility] Emergency Department, for unrelated complaints, cough - 3 days ago. 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 LMP N/A - Irregular menses lp1 Historical: - Allergies: 00:06 NKDA; lp1 - Home Meds: 00:06 aspirin 81 mg Oral TbEC 1 tab once daily [Active]; Bystolic Oral [Active]; lp1 hydrocodone-acetaminophen 5-325 mg Oral tab twice a day [Active]; Imipramine Oral [Active]; tizanidine Oral [Active]; Xanax Oral [Active]; Zanaflex 4 mg Oral tab nightly [Active]; Ziac 5-6.25 mg Oral tab once daily [Active]; Zolpidem Tartrate Oral [Active]; - PMHx: 00:06 Herniated disc; mitral valve prolapse; Myocardial infarction; Hypertension; Colitis; lp1 - PSHx: 00:06 ; lp1 - Immunization history:: Adult Immunizations up to date. - Social history:: Smoking status: Patient uses tobacco products, smokes one-half pack cigarettes per day. - Ebola Screening: : No symptoms or risks identified at this time. ROS: 02:00 Constitutional: Negative for fever, chills, and weight loss, Eyes: Negative for injury, pm1 pain, redness, and discharge, ENT: Negative for injury, pain, and discharge, Neck: Negative for injury, pain, and swelling, Cardiovascular: Negative for chest pain, palpitations, and edema, Respiratory: Negative for shortness of breath, cough, wheezing, and pleuritic chest pain. 02:00 : Negative for injury, bleeding, discharge, and swelling, MS/Extremity: Negative for injury and deformity, Skin: Negative for injury, rash, and discoloration, Neuro: Negative for headache, weakness, numbness, tingling, and seizure. 02:00 Abdomen/GI: Positive for abdominal pain, nausea, vomiting, and diarrhea, Negative for constipation, bowel movement this AM with solid stool. 02:00 Back: Positive for flank pain, on the left. Exam: 02:00 Constitutional: This is a well developed, well nourished patient who is awake, alert, pm1 and in no acute distress. Head/Face: Normocephalic, atraumatic. Eyes: Pupils equal round and reactive to light, extra-ocular motions intact. Lids and lashes normal. Conjunctiva and sclera are non-icteric and not injected. Cornea within normal limits. Periorbital areas with no swelling, redness, or edema. ENT: Nares patent. No nasal discharge, no septal abnormalities noted. Tympanic membranes are normal and external auditory canals are clear. Oropharynx with no redness, swelling, or masses, exudates, or evidence of obstruction, uvula midline. Mucous membranes moist. Neck: Trachea midline, no thyromegaly or masses palpated, and no cervical lymphadenopathy. Supple, full range of motion without nuchal rigidity, or vertebral point tenderness. No Meningismus. Chest/axilla: Normal chest wall appearance and motion. Nontender with no deformity. No lesions are appreciated. Cardiovascular: Regular rate and rhythm with a normal S1 and S2. No gallops, murmurs, or rubs. Normal PMI, no JVD. No pulse deficits. Respiratory: Lungs have equal breath sounds bilaterally, clear to auscultation and percussion. No rales, rhonchi or wheezes noted. No increased work of breathing, no retractions or nasal flaring. Abdomen/GI: Soft, non-tender, with normal bowel sounds. No distension or tympany. No guarding or rebound. No evidence of tenderness throughout. 02:00 Skin: Warm, dry with normal turgor. Normal color with no rashes, no lesions, and no evidence of cellulitis. MS/ Extremity: Pulses equal, no cyanosis. Neurovascular intact. Full, normal range of motion. 02:00 Back: pain, that is mild, of the left low back, normal spinal alignment noted. 02:00 Neuro: Orientation: is normal, Motor: is normal, moves all fours. Vital Signs: 00:06 BP 150 / 84; Pulse 87; Resp 18; Temp 98.3(O); Pulse Ox 98% on R/A; Weight 70.31 kg; lp1 Height 5 ft. 2 in. (157.48 cm); Pain 10/10; 01:40 BP 144 / 76; Pulse 59; Resp 18; Pulse Ox 100% on R/A; tl2 02:26 BP 122 / 72; Pulse 67; Resp 18; Pulse Ox 100% on R/A; tl2 03:39 BP 129 / 83; Pulse 69; Resp 17; Temp 98.5; Pulse Ox 99% ; Pain 3/10; tl1 00:06 Body Mass Index 28.35 (70.31 kg, 157.48 cm) lp1 MDM: 00:23 Patient medically screened. pm1 02:40 ED course: Patient offered disimpaction or enema. Patient refused. Therefore will send pm1 the patient home with Sánchezcolax. 02:41 Data reviewed: vital signs. Data interpreted: Pulse oximetry: on room air is 100 %. pm1 Interpretation: normal. Counseling: I had a detailed discussion with the patient and/or guardian regarding: the historical points, exam findings, and any diagnostic results supporting the discharge/admit diagnosis, lab results, radiology results, the need for outpatient follow up, to return to the emergency department if symptoms worsen or persist or if there are any questions or concerns that arise at home. 03/09 00:23 Order name: Urine Dipstick--Ancillary (enter results) em1 03/09 00:23 Order name: Urine --Ancillary (enter results) em1 03/09 00:26 Order name: Basic Metabolic Panel; Complete Time: : pm1 03/09 00:26 Order name: CBC with Diff; Complete Time: 02:25 pm1 03/09 00:26 Order name: Hepatic Function; Complete Time: : pm1 03/09 00:26 Order name: Lipase; Complete Time: : pm1 03/09 00:26 Order name: IV Saline Lock; Complete Time: 00:28 pm1 03/09 00:26 Order name: CT Stone Protocol pm1 03/09 01:03 Order name: CBC Smear Scan; Complete Time: 02:25 EDMS 03/09 00:26 Order name: Labs collected and sent; Complete Time: 00:33 pm1 Administered Medications: 00:37 Drug: Zofran 4 mg Route: IVP; Site: right antecubital; bb 03:00 Follow up: Response: No adverse reaction; Marked relief of symptoms; Nausea is decreasedtl1 00:37 Drug: morphine 4 mg Route: IVP; Site: right antecubital; bb 03:00 Follow up: Response: No adverse reaction; Marked relief of symptoms; Pain is decreased tl1 00:37 Drug: NS 0.9% 1000 ml Route: IV; Rate: 1000 ml; Site: right antecubital; bb 01:30 Follow up: IV Status: Completed infusion tl1 02:05 Drug: TORadol 30 mg Route: IVP; Site: right antecubital; tl2 03:01 Follow up: Response: No adverse reaction; Marked relief of symptoms; Pain is decreased tl1 03:19 Drug: morphine 4 mg Route: IVP; Site: right antecubital; tl2 03:37 Follow up: Response: No adverse reaction; Marked relief of symptoms; Pain is decreased tl1 Disposition: 03/09/18 02:45 Discharged to Home. Impression: Vomiting, Diarrhea, unspecified, Unspecified abdominal pain. - Condition is Stable. - Discharge Instructions: Abdominal Pain, Adult, Diarrhea, Adult, Nausea and Vomiting, Adult, Viral Gastroenteritis, Adult. - Prescriptions for Bentyl 20 mg Oral Tablet - take 1 tablet by ORAL route every 6 hours As needed; 20 tablet. Zofran 4 mg Oral Tablet - take 1 tablet by ORAL route every 12 hours As needed; 20 tablet. Dulcolax 10 mg Rectal Suppository - insert 1 suppository by RECTAL route every 6 hours As needed; 10 suppository. - Family Work Release, Medication Reconciliation Form, Thank You Letter, Antibiotic Education, Prescription Opioid Use form. - Follow up: Emergency Department; When: As needed; Reason: Worsening of condition. Follow up: Jordan Jean MD; When: 2 - 3 days; Reason: Recheck today's complaints, Continuance of care, Re-evaluation by your physician. - Problem is new. - Symptoms have improved. Signatures: Dispatcher [employer] EDMS Karmen Harding, RN RN bb Maite Grijalva RN RN lp1 Marilou Yanez RN RN tl1 Marcelino Darby, LEE IRRIGATOR GRAVITY FLOW pm1 Wendy Valencia RN RN tl2 Corrections: (The following items were deleted from the chart) 03:41 02:45 03/09/2018 02:45 Discharged to Home. Impression: Vomiting; Diarrhea, unspecified; tl1 Unspecified abdominal pain. Condition is Stable. Forms are Medication Reconciliation Form, Thank You Letter, Antibiotic Education, Prescription Opioid Use. Follow up: Emergency Department; When: As needed; Reason: Worsening of condition. Follow up: Jordan Jean; When: 2 - 3 days; Reason: Recheck today's complaints, Continuance of care, Re-evaluation by your physician. Problem is new. Symptoms have improved. pm1
[2018-03-09 03:46] LABS: Urine Blood NEGATIVE (NEG); Urine Glucose NEGATIVE (NEG); Urine Protein 1+ (NEG); Urine Specific Gravity >1.030 (1.005-1.030); Urine pH 5.5 (5.0-7.0)
[2018-03-09 05:40] VITALS: BP 129/83; TEMP 98.5; O2SAT 99
--- NOTE | 2018-03-09 08:23 | RAD REPORT ---
EXAM DESCRIPTION: CT - Stone Protocol - 03/09/2018 5:32 am CLINICAL HISTORY: Abdominal pain. Left lower quadrant pain with vomiting COMPARISON: October 2017 TECHNIQUE: Computed axial tomography of the abdomen pelvis was obtained without oral or IV contrast. Lack of IV and oral contrast limits evaluation of solid organs, bowel, and vessels. Coronal reformat alistair images were obtained and reviewed. Preliminary report generated by [facility] radi[employer] and reviewe d prior to dictation All CT scans are performed using dose optimization technique as appropriate and may include automated exposure control or mA/KV adjustment according to patient size. FINDINGS: A renal calculus is not seen. An ureteral calculus is not noted. A bladder calculus is not present. The liver, spleen, pancreas and adrenals appear grossly normal There is no evidence of diverticulitis. The appendix appears normal. Fluid is present within non dilated bowel. Rectum is mildly distended with stool. Tiny umbilical hernia. 23 millimeter left ovarian cyst without significant free fluid IMPRESSION: Negative for a genitourinary calculus Fluid within nondilated bowel may indicate an enteritis
== END 2018-03-09 03:41 | disposition home or self-care (01) ==
LOC: ER 23:49
DX: R19.7 Diarrhea, unspecified (principal); R10.9 Unspecified abdominal pain; F17.210 Nicotine dependence, cigarettes, uncomplicated; I10 Essential (primary) hypertension; I25.2 Old myocardial infarction; Z79.82 Long term (current) use of aspirin
CPT/HCPCS: 36415; 74176; 76377; 80048; 80076; 81003; 81025; 83690; 85025; 96361; 96374; 96375; 99284; J2405; J7030

== ENCOUNTER 2018-05-24 13:41 | Emergency (ER) | payer OTHER ==
[2018-05-24] MEDS ORDERED: ONDANSETRON 4 MG/2 ML VIAL ONE (15:14)
[2018-05-24 15:31] LABS: ALT/SGPT 16 U/L (12-78); AST/SGOT 8 U/L (15-37); Albumin 4.1 g/dL (3.4-5.0); Alkaline Phosphatase 112 U/L (45-117); BUN Blood Urea Nitrogen 9 mg/dL (7-18); Bicarbonate 27 mmol/L (21-32); Bilirubin Direct < 0.1 mg/dL (0-0.2); Bilirubin Total 0.2 mg/dL (0.2-1.0); Glucose Level 97 mg/dL (74-106); Magnesium 2.3 mg/dL (1.8-2.4); NT PRO-BNP 45 pg/mL (<125); Sodium Level 139 mmol/L (136-145); Troponin (Emerg Dept Use Only) < 0.02 ng/mL (0.0-0.045)
--- NOTE | 2018-05-24 15:32 | RAD REPORT ---
EXAM DESCRIPTION: RAD - Chest Single View - 05/24/2018 3:02 pm CLINICAL HISTORY: CHEST PAIN Chest pain. COMPARISON: Chest Pa And Lat (2 Views) dated 03/08/2018; Chest Single View dated 08/20/2016; CHEST SI NGLE VIEW dated 02/28/2015; CHEST SINGLE VIEW dated 06/28/2013 FINDINGS: Portable technique limits examination quality. The lungs are grossly clear. The heart is normal in size. No displaced fractures. IMPRESSION: No acute intrathoracic process suspected.
[2018-05-24 15:33] LABS: Absolute Lymphocytes (CBC) 2.7 K/uL (0.7-4.9); Absolute Monocytes 0.8 K/uL (0.1-1.3); Absolute Neutrophil 7.4 K/uL (1.8-8.0); Basophils % 0.2 % (0-1.3); Eosinophils % 1.8 % (0-4.4); Lymphocytes % 24.6 % (15.3-44.8); MPV 9.7 fL (7.6-11.3); Monocytes % 7.3 % (3.3-12.3); RBC Red Blood Cell Count 5.03 M/uL (3.86-4.86)
[2018-05-24] MEDS ORDERED: KETOROLAC 30 MG/ML INJ ONE (15:38)
[2018-05-24] MEDS ORDERED: ASPIRIN 81 MG CHEWABLE TABLET ONE (15:38)
[2018-05-24] MEDS ORDERED: FENTANYL CITR 100 MCG/2 ML ONE (15:38)
--- NOTE | 2018-05-24 16:07 | ER ---
Nurse's Notes [facility] Name: Yohana Reeves Age: 37 yrs Sex: Female : 1980 Arrival Date: 05/24/2018 Time: 13:46 Bed 28 Private MD: Rolo Mckinnon Diagnosis: Chest pain on breathing;Other chest pain-Chest wall pain Presentation: 05/24 14:04 Presenting complaint: Patient states: mid-sternal chest pain that began today. Pt also aa5 reports headache. Transition of care: patient was not received from another setting of care. Onset of symptoms was May 24, 2018. Risk Assessment: Do you want to hurt yourself or someone else? Patient reports no desire to harm self or others. Initial Sepsis Screen: Does the patient meet any 2 criteria? No. Patient's initial sepsis screen is negative. Does the patient have a suspected source of infection? No. Patient's initial sepsis screen is negative. Care prior to arrival: None. 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 - Social history:: Smoking status: Patient uses tobacco products, smokes one-half pack cigarettes per day. - Ebola Screening: : No symptoms or risks identified at this time. Screenin:26 Abuse screen: Denies threats or abuse. Nutritional screening: No deficits noted. tl3 Tuberculosis screening: No symptoms or risk factors identified. Fall Risk None identified. Assessment: 14:26 Reassessment: pt has OR history, pain is only with cough and deep breathing. General: tl3 Appears uncomfortable, slender, well groomed, well developed, well nourished, Behavior is calm, cooperative, appropriate for age. Pain: Complains of pain in xyphoid area and mid-sternal area Pain does not radiate. Pain began 2-3 days ago. Neuro: Level of Consciousness is awake, alert, obeys commands, Oriented to person, place, time, situation, Appropriate for age. Cardiovascular: Reports chest pain, with deep breathing and cough Heart tones S1 S2 present Patient's skin is warm and dry. Respiratory: Airway is patent Respiratory effort is even, unlabored, Respiratory pattern is regular, symmetrical. GI: No signs and/or symptoms were reported involving the gastrointestinal system. : No signs and/or symptoms were reported regarding the genitourinary system. 16:48 Reassessment: Patient appears in no apparent distress at this time. No changes from tl3 previously documented assessment. Patient and/or family updated on plan of care and expected duration. Pain level reassessed. Patient is alert, oriented x 3, equal unlabored respirations, skin warm/dry/pink. at bedside, pt being discharged. Vital Signs: 14:05 BP 123 / 80; Pulse 77; Resp 16 S; Temp 97.6(TE); Pulse Ox 100% on R/A; Weight 71.21 kg aa5 (R); Height 5 ft. 2 in. (157.48 cm) (R); Pain 7/10; 14:26 BP 111 / 68; Pulse 75; Resp 20; tl3 15:58 BP 103 / 67 Supine; Pulse 54; Resp 12; Pulse Ox 100% on R/A; Pain 6/10; jp3 16:01 BP 109 / 63 RA Sitting (auto/reg); Pulse 60; Resp 12 S; Pulse Ox 100% on R/A; Pain 6/10;jp3 16:03 BP 109 / 73 RA Standing (auto/reg); Pulse 70; Resp 13 S; Pulse Ox 100% on R/A; Pain jp3 8/10; 16:48 BP 108 / 69; Pulse 62; Resp 18; tl3 14:05 Body Mass Index 28.72 (71.21 kg, 157.48 cm) aa5 15:58 Pt reported "Pressure NOT Pain"/ No Dizziness jp3 16:01 "about the same as supine" jp3 16:03 Pt reported "lightheadedness and pressure now 8/10" jp3 ED Course: 13:46 Patient arrived in ED. mr 13:46 Rolo Mckinnon MD is Private Physician. mr 14:03 Arm band placed on. aa5 14:04 Triage completed. aa5 14:07 Debi Calvo, FÁTIMA is Primary Nurse. tl3 14:12 EKG done, by parts technician. reviewed by Yasmani Gaston MD. 3 14:26 Patient has correct armband on for positive identification. Bed in low position. Call tl3 light in reach. Side rails up X 1. outside sales advertising executive on. 14:31 Cyrus Obrien PA is PHCP. jr8 14:31 Yasmani Gaston MD is Attending Physician. jr8 14:46 No provider procedures requiring assistance completed. Inserted saline lock: 20 gauge tl3 in left antecubital area, using aseptic technique. Blood collected. Patient maintains SpO2 saturation greater than 95% on room air. 15:00 X-ray completed. Portable x-ray completed in exam room. Patient tolerated procedure mh1 well. 15:01 XRAY Chest (1 view) In Process Unspecified. EDMO 16:05 Rolo Mckinnon MD is Referral Physician. jr8 16:48 IV discontinued, intact, bleeding controlled, No redness/swelling at site. Pressure tl3 dressing applied. Administered Medications: 15:09 Drug: Zofran 4 mg Route: IVP; Infused Over: 2 mins; Site: left antecubital; tl3 15:37 Follow up: Response: No adverse reaction tl3 15:37 Drug: Aspirin Chewable Tablet 324 mg Route: PO; tl3 16:51 Follow up: Response: No adverse reaction tl3 15:37 Drug: fentaNYL (PF) 50 mcg Route: IVP; Infused Over: 2 mins; Site: left antecubital; tl3 16:50 Follow up: Response: Pain is decreased tl3 16:16 Drug: TORadol 30 mg Route: IVP; Site: left antecubital; mg2 16:49 Follow up: Response: Pain is decreased tl3 Outcome: 16:05 Discharge ordered by . jr8 16:48 Discharged to home ambulatory. tl3 16:48 Condition: stable 16:48 Discharge instructions given to patient, family, Instructed on discharge instructions, follow up and referral plans. Demonstrated understanding of instructions, follow-up care, medications, Prescriptions given X 2. 16:53 Patient left the ED. tl3 Signatures: Dispatcher [employer] [facility] Cherelle Ellsworth Martha mh1 Tianna Henry RN RN aa5 Cyrus Obrien PA PA jr8 Debi Calvo RN RN tl3 Rob Tidwell RN RN mg2 [place] Cramer sm3 Primo Rebolledo jp3
--- NOTE | 2018-05-24 16:07 | EDPHYS ---
Physician Documentation [facility] Name: Yohana Reeves Age: 37 yrs Sex: Female : 1980 Arrival Date: 05/24/2018 Time: 13:46 Bed 28 Private MD: Rolo Mckinnon ED Physician Yasmani Gaston HPI: 05/24 14:47 This 37 yrs old Female presents to ER via Ambulatory with complaints of Chest jr8 Pain. 14:47 The patient or guardian reports chest pain that is located primarily in the substernal jr8 area. The pain does not radiate. Associated signs and symptoms: Pertinent positives: cough, Pertinent negatives: diaphoresis, dizziness, lower extremity swelling, lightheadedness, nausea, near syncope, palpitations, shortness of breath, syncope, vomiting. The chest pain is described as dull. Duration: The patient or guardian reports a single episode, that is still ongoing, and unchanged. Modifying factors: The symptoms are alleviated by nothing. the symptoms are aggravated by deep breath. Severity of pain: At its worst the pain was moderate in the emergency department the pain is unchanged. The patient has not experienced similar symptoms in the past. The patient has not recently seen a physician. 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 - Social history:: Smoking status: Patient uses tobacco products, smokes one-half pack cigarettes per day. - Ebola Screening: : No symptoms or risks identified at this time. ROS: 14:47 Eyes: Negative for injury, pain, redness, and discharge, ENT: Negative for injury, jr8 pain, and discharge, Neck: Negative for injury, pain, and swelling, Respiratory: Negative for shortness of breath, cough, wheezing, and pleuritic chest pain, Abdomen/GI: Negative for abdominal pain, nausea, vomiting, diarrhea, and constipation, Back: Negative for injury and pain, MS/Extremity: Negative for injury and deformity, Skin: Negative for injury, rash, and discoloration, Neuro: Negative for headache, weakness, numbness, tingling, and seizure. 14:47 Cardiovascular: Positive for chest pain, Negative for edema, orthopnea, palpitations, paroxysmal nocturnal dyspnea. Exam: 14:47 Eyes: Pupils equal round and reactive to light, extra-ocular motions intact. Lids and jr8 lashes normal. Conjunctiva and sclera are non-icteric and not injected. Cornea within normal limits. Periorbital areas with no swelling, redness, or edema. ENT: Nares patent. No nasal discharge, no septal abnormalities noted. Tympanic membranes are normal and external auditory canals are clear. Oropharynx with no redness, swelling, or masses, exudates, or evidence of obstruction, uvula midline. Mucous membranes moist. Neck: Trachea midline, no thyromegaly or masses palpated, and no cervical lymphadenopathy. Supple, full range of motion without nuchal rigidity, or vertebral point tenderness. No Meningismus. Cardiovascular: Regular rate and rhythm with a normal S1 and S2. No gallops, murmurs, or rubs. Normal PMI, no JVD. No pulse deficits. Respiratory: Lungs have equal breath sounds bilaterally, clear to auscultation and percussion. No rales, rhonchi or wheezes noted. No increased work of breathing, no retractions or nasal flaring. Abdomen/GI: Soft, non-tender, with normal bowel sounds. No distension or tympany. No guarding or rebound. No evidence of tenderness throughout. Back: No spinal tenderness. No costovertebral tenderness. Full range of motion. Pain to paraspinous region of mid back that reproduces chest pain Skin: Warm, dry with normal turgor. Normal color with no rashes, no lesions, and no evidence of cellulitis. MS/ Extremity: Pulses equal, no cyanosis. Neurovascular intact. Full, normal range of motion. Neuro: Awake and alert, GCS 15, oriented to person, place, time, and situation. Cranial nerves II-XII grossly intact. Motor strength 5/5 in all extremities. Sensory grossly intact. Cerebellar exam normal. Normal gait. 16:04 Chest/axilla: Inspection: normal, Palpation: tenderness, that is mild, of the jr8 mid-sternal area, that partially reproduces the patient's complaints, Axilla: are normal, Breasts: are normal, Lymph nodes: lymphadenopathy is not appreciated. Vital Signs: 14:05 BP 123 / 80; Pulse 77; Resp 16 S; Temp 97.6(TE); Pulse Ox 100% on R/A; Weight 71.21 kg aa5 (R); Height 5 ft. 2 in. (157.48 cm) (R); Pain 7/10; 14:26 BP 111 / 68; Pulse 75; Resp 20; tl3 15:58 BP 103 / 67 Supine; Pulse 54; Resp 12; Pulse Ox 100% on R/A; Pain 6/10; jp3 16:01 BP 109 / 63 RA Sitting (auto/reg); Pulse 60; Resp 12 S; Pulse Ox 100% on R/A; Pain 6/10;jp3 16:03 BP 109 / 73 RA Standing (auto/reg); Pulse 70; Resp 13 S; Pulse Ox 100% on R/A; Pain jp3 8/10; 16:48 BP 108 / 69; Pulse 62; Resp 18; tl3 14:05 Body Mass Index 28.72 (71.21 kg, 157.48 cm) aa5 15:58 Pt reported "Pressure NOT Pain"/ No Dizziness jp3 16:01 "about the same as supine" jp3 16:03 Pt reported "lightheadedness and pressure now 8/10" jp3 MDM: 14:31 Patient medically screened. jr8 16:03 HEART Score: History: Slightly Suspicious (0), ECG: Normal (0), Age: < or = 45 years jr8 (0), Risk Factors: 1 or 2 risk factors (1), [Hypertension] Troponin: < or = 1 x Normal Limit (0). Data reviewed: vital signs, nurses notes, lab test result(s), EKG, radiologic studies, plain films, and as a result, I will discharge patient. Data interpreted: Pulse oximetry: on room air is 100 %. Interpretation: normal. Counseling: I had a detailed discussion with the patient and/or guardian regarding: the historical points, exam findings, and any diagnostic results supporting the discharge/admit diagnosis, lab results, radiology results, the need for outpatient follow up, a family practitioner, to return to the emergency department if symptoms worsen or persist or if there are any questions or concerns that arise at home. 05/24 14:45 Order name: Basic Metabolic Panel; Complete Time: 15:35 tl3 05/24 14:45 Order name: CBC with Diff tl3 05/24 14:45 Order name: LFT's; Complete Time: 15:35 tl3 05/24 14:45 Order name: Magnesium; Complete Time: 15:35 tl3 05/24 14:45 Order name: NT PRO-BNP; Complete Time: 15:35 tl3 05/24 14:45 Order name: PT-INR; Complete Time: 15:26 tl3 05/24 14:45 Order name: Troponin (emerg Dept Use Only); Complete Time: 15:35 tl3 05/24 14:45 Order name: XRAY Chest (1 view); Complete Time: 15:35 tl3 05/24 14:45 Order name: EKG; Complete Time: 14:46 tl3 05/24 15:45 Order name: CBC Smear Scan EDMS 05/24 14:45 Order name: Cardiac monitoring; Complete Time: 14:45 tl3 05/24 14:45 Order name: EKG - Nurse/Tech; Complete Time: 14:45 tl3 05/24 14:45 Order name: IV Saline Lock; Complete Time: 14:45 tl3 05/24 14:45 Order name: Labs collected and sent; Complete Time: 14:45 tl3 05/24 14:45 Order name: O2 Per Protocol; Complete Time: 14:45 tl3 05/24 14:45 Order name: O2 Sat Monitoring; Complete Time: 14:46 tl3 Administered Medications: 15:09 Drug: Zofran 4 mg Route: IVP; Infused Over: 2 mins; Site: left antecubital; tl3 15:37 Follow up: Response: No adverse reaction tl3 15:37 Drug: Aspirin Chewable Tablet 324 mg Route: PO; tl3 16:51 Follow up: Response: No adverse reaction tl3 15:37 Drug: fentaNYL (PF) 50 mcg Route: IVP; Infused Over: 2 mins; Site: left antecubital; tl3 16:50 Follow up: Response: Pain is decreased tl3 16:16 Drug: TORadol 30 mg Route: IVP; Site: left antecubital; mg2 16:49 Follow up: Response: Pain is decreased tl3 Disposition: 17:16 Co-signature as Attending Physician, Yasmani Gaston MD. Disposition: 05/24/18 16:05 Discharged to Home. Impression: Chest pain on breathing, Other chest pain - Chest wall pain. - Condition is Stable. - Discharge Instructions: Chest Wall Pain. - Prescriptions for Ibuprofen 800 mg Oral Tablet - take 1 tablet by ORAL route every 12 hours As needed take with food; 20 tablet. Cyclobenzaprine 10 mg Oral Tablet - take 1 tablet by ORAL route every 8 hours As needed; 30 tablet. - Medication Reconciliation Form, Thank You Letter, Antibiotic Education, Prescription Opioid Use form. - Follow up: Rolo Mckinnon MD; When: 5 - 6 days; Reason: Recheck today's complaints, Continuance of care, Re-evaluation by your physician. - Problem is new. - Symptoms have improved. Signatures: Dispatcher [employer] EDMS Tianna Henry, RN RN aa5 Cyrus Obrien PA PA jr8 Yasmani Gaston MD MD gs Debi Calvo RN RN tl3 Rob Tidwell RN RN mg2 Corrections: (The following items were deleted from the chart) 16:05 14:47 Eyes: Pupils equal round and reactive to light, extra-ocular motions intact. Lids jr8 and lashes normal. Conjunctiva and sclera are non-icteric and not injected. Cornea within normal limits. Periorbital areas with no swelling, redness, or edema. ENT: Nares patent. No nasal discharge, no septal abnormalities noted. Tympanic membranes are normal and external auditory canals are clear. Oropharynx with no redness, swelling, or masses, exudates, or evidence of obstruction, uvula midline. Mucous membranes moist. Neck: Trachea midline, no thyromegaly or masses palpated, and no cervical lymphadenopathy. Supple, full range of motion without nuchal rigidity, or vertebral point tenderness. No Meningismus. Cardiovascular: Regular rate and rhythm with a normal S1 and S2. No gallops, murmurs, or rubs. Normal PMI, no JVD. No pulse deficits. Respiratory: Lungs have equal breath sounds bilaterally, clear to auscultation and percussion. No rales, rhonchi or wheezes noted. No increased work of breathing, no retractions or nasal flaring. Abdomen/GI: Soft, non-tender, with normal bowel sounds. No distension or tympany. No guarding or rebound. No evidence of tenderness throughout. Back: No spinal tenderness. No costovertebral tenderness. Full range of motion. Skin: Warm, dry with normal turgor. Normal color with no rashes, no lesions, and no evidence of cellulitis. MS/ Extremity: Pulses equal, no cyanosis. Neurovascular intact. Full, normal range of motion. Neuro: Awake and alert, GCS 15, oriented to person, place, time, and situation. Cranial nerves II-XII grossly intact. Motor strength 5/5 in all extremities. Sensory grossly intact. Cerebellar exam normal. Normal gait. jr8 16:53 16:05 05/24/2018 16:05 Discharged to Home. Impression: Chest pain on breathing; Other tl3 chest pain - Chest wall pain. Condition is Stable. Forms are Medication Reconciliation Form, Thank You Letter, Antibiotic Education, Prescription Opioid Use. Follow up: Rolo Mckinnon; When: 5 - 6 days; Reason: Recheck today's complaints, Continuance of care, Re-evaluation by your physician. Problem is new. Symptoms have improved. jr8
[2018-05-24 16:46] LABS: Anisocytosis SLIGHT; Blood Morphology Comment NOTED (NOT SEEN); Hypochromasia 1+; Platelet Estimate ADEQ; Urine White Blood Cell Casts OK
--- NOTE | 2018-05-24 17:25 | EKG ---
Test Date: 2018-05-24 Test Time: 14:06:32 Diving Board Assembler: ANEUDY MEASUREMENT RESULTS: Intervals: Rate: 73 [place]: 98 QRSD: 82 QT: 402 QTc: 442 [place]: P: 55 NJ: 98 QRS: 72 T: 56 INTERPRETIVE STATEMENTS: Sinus rhythm with short [place] Otherwise normal ECG Compared to ECG 03/08/2018 10:17:25 No significant changes Electronically Signed On 05-24-18 17:25:04 FIELD WORKER by Zeyad Brown
[2018-05-24 18:33] VITALS: TEMP 97.6; O2SAT 100
[2018-05-24 18:39] VITALS: BP 108/69
== END 2018-05-24 16:53 | disposition home or self-care (01) ==
LOC: ER 13:41
DX: R07.89 Other chest pain (principal); I10 Essential (primary) hypertension; I25.2 Old myocardial infarction; F17.210 Nicotine dependence, cigarettes, uncomplicated
CPT/HCPCS: 36415; 71045; 80048; 80076; 83735; 83880; 84484; 85025; 85610; 93005; 96374; 96375; 99285; J2405; J3010

== ENCOUNTER 2019-11-15 11:20 | Emergency (ER) | payer OTHER ==
--- OUTSIDE RECORDS SUMMARY | 2019-11-15 11:43 | XMS REPORT | Continuity of Care Document ---
:1980 Author Organization [facility] t Address [address] [place] [address] Dr. Perea. [address] [place] [address] Care Team Providers Name Role Phone Stacey Isabel Attending Clinician Payers Payer Name Policy Type Policy Number Effective Date Expiration Date S ource Problems This patient has no known problems. Allergies, Adverse Reactions, Alerts Allergy Allergy Status Severity Reaction(s) Onset Inactive Treating Comm ents Source Name Type Date Date Clinician ally [place] Active [facility] subsalic 7-29 Clear ylate 00:00: Jones 00 [facility] Medications This patient has no known medications. Procedures This patient has no known procedures. Encounters Start End Encounter Admission Attending Care Care Encounter Source Date/Time Date/Time Type Type Clinicians Facility Department ID 2019-06-02 2019-06-02 Emergency Chris [facility] [id number] 11:18:34 14:43:00 Candido Leon [id number] [place] [id number] [place] [id number] Results Test Description Test Time Test Comments Results Result Comments Source - XR CHEST 1 V 2019-02-22 Name: VIC JAMES 19:54:00 [facility] Silviano : 1980 Age/S: 38 / F [address] Unit #: [id number] Loc: [place] [address] Phys: Génesis King MD Acct: [id number] Dis Date: Status: ADM IN PHONE #: [phone] Exam Date: 02/22/20191940 FAX #: Reason: SOB EXAMS: CPT: [id number] XR CHEST 1 V 50456 Fluoro Time: DAP (Gy m2): Air Kerma (mGy): DICTATION LOCATION: 8 HISTORY: Female, 38 years of age with SOB EXAM: CHEST X-RAY, ONE VIEW COMPARISON: Correlation made with CT abdomen and pelvis performed 02/19/2019 COMMENT: Frontal view of the chest is provided. There are mild perihilar interstitial opacities. No lobar consolidation or mass lesion. Small right pleural effusion noted. Cardiac silhouette is within normal limits. No acute bony abnormalities. IMPRESSION: Mild perihilar edema and small right pleural effusion. at 1954 Reported and signed by: Caridad Vyas MD CC: Jordan Jean MD; Cony Partida MD; Génesis King MD PAGE 1 Signed Report Name: VIC JAMES [place] : 1980 Age/S: 38 / F [address] Unit #: [id number] Loc: [place] [address] Phys: Génesis King MD Acct: [id number] Dis Date: Status: ADM IN PHONE #: [phone] Exam Date: 02/22/20191940 FAX #: Reason: SOB EXAMS: CPT: [id number] XR CHEST 1 V 28088 Fluoro Time: DAP (Gy m2): Air Kerma (mGy): <Continued> Technologist: Jordan Chacon, RT(R)(CT) Trnscb Date/Time: 02/22/2019 (1953) [email or web address] Orig Print D/T: S: 02/22/2019 (1956) PAGE 2 Signed Report - [facility] 2019-02-22 Name: 15:32:00 VIC JAMES [place] : 1980 Age/S: 38 / F [address] Unit #: [id number] Loc: [place] [address] Phys: Génesis King MD Acct: [id number] Dis Date: Status: ADM IN PHONE #: [phone] Exam Date: 02/22/2019 1200 FAX #: Reason: back pain EXAMS: CPT: [id number] US RETRO LTD 31000 EXAMINATION: - US RETRO LTD. LOCATION: T18. HISTORY: Back pain, pyelonephritis. COMPARISON: CT abdomen/pelvis 02/19/19. FINDINGS: Sonographic evaluation of the kidneys and bladder was performed utilizing velez scale, pulse Doppler and color flow imaging. The right kidney measures 12.7 cm and the left kidney measures 13 cm. The parenchymal echogenicity is within normal limits on both sides. There is no hydronephrosis. No calculus is identified. Possible 0.9 x 2.0 cm hypoechoic region in right upper pole renal pelvis. Urinary bladder is distended. Bilateral ureteral jets noted. IMPRESSION: No hydronephrosis. Possible 0.9 x 2.0 cm hypoechoic/cystic appearing region in right upper pole renal pelvis, nonspecific. Consider short-term follow-up given history of pyelonephritis and recent CT findings. at 1532 Reported and signed by: Thuan Ricardo M.D. CC: Jordan Jean MD; Cony Partida MD; Génesis King MD Technologist: Nina Andrews, RT(R),RDMS(AB) Trnscb Date/Time: 02/22/2019 (1532) [email or web address] PAGE 1 Signed Report Name: VIC JAMES [facility] : 1980 Age/S: 38 / F [address] Unit #: [id number] Loc: [place] [address] Phys: Génesis King MD Acct: [id number] Dis Date: Status: ADM IN PHONE #: [phone] Exam Date: 02/22/2019 1200 FAX #: Reason: back pain EXAMS: CPT: [id number] US RETRO LTD 92757 <Continued> Orig Print D/T: S: 02/22/2019 (1535) Probe: PAGE 2 Signed Report CBC W/AUTO DIFF 2019-02-22 12:09:00 Test Item Value Reference Range Interpretation Comme nts WHITE BLOOD CELL (test code = 9.9 K/mm3 3.5-11.0 N WBC) RED BLOOD CELL (test code = RBC) 3.37 M/mm3 4.70-6.10 L HEMOGLOBIN (test code = HGB) 8.9 G/DL 10.4-14.9 L HEMATOCRIT (test code = HCT) 28.5 % 31.5-44.1 L MEAN CELL VOLUME (test code = 84.6 Fl 84.5-98.6 N MCV) MEAN CELL HGB (test code = MCH) 26.4 pg 27.0-34.2 L MEAN CELL HGB CONCETRATION (test 31.2 G/DL 31.5-34.0 L code = MCHC) PLATELET COUNT (test code = PLT) 246.0 K/mm3 150-450 N MEAN PLATELET VOLUME (test code 10.10 fL 7.0-10.5 N = MPV) NEUTROPHIL % (test code = NT%) 74.9 % 40-76 N LYMPHOCYTE % (test code = LY%) 14.9 % 20.5-51.1 L MONOCYTE % (test code = MO%) 9.0 % 1.7-9.3 N EOSINOPHIL % (test code = EO%) 1.0 % 0.0-6.0 N BASOPHIL % (test code = BA%) 0.2 % 0.0-2.0 N NEUTROPHIL # (test code = NT#) 7.37 K/mm3 1.8-7.6 N LYMPHOCYTE # (test code = LY#) 1.5 K/mm3 0.6-3.2 N MONOCYTE # (test code = MO#) 0.9 K/mm3 0.3-1.1 N EOSINOPHIL # (test code = EO#) 0.1 K/mm3 0.0-0.4 N BASOPHIL # (test code = BA#) 0.0 K/mm3 0.0-0.1 N MANUAL DIFF REQUIRED (test code NO DIFF/SCN CRITERIA SLIDE REVIEW CONSISTANT WITH = MDIFF) AUTO DIFFERENTI AL. RBC [id number] 12:09:00 Test Item Value Reference Range Interpretation Comments ANISOCYTOSIS (test code = 1+ NONE ANISO) MICROCYTOSIS (test code = 1+ ON SCAN NONE MICR) PLATELET ESTIMATE (test ADEQUATE THOUSAND ADEQUATE code = PLTEST) PLATELET MORPHOLOGY (test NORMAL code = PLTMORPH) CBC W/AUTO [id number] 12:08:00 Test Item Value Reference Range Interpretation Comments WHITE BLOOD CELL (test code = 9.9 K/mm3 3.5-11.0 N WBC) RED BLOOD CELL (test code = RBC) 3.37 M/mm3 4.70-6.10 L HEMOGLOBIN (test code = HGB) 8.9 G/DL 10.4-14.9 L HEMATOCRIT (test code = HCT) 28.5 % 31.5-44.1 L MEAN CELL VOLUME (test code = 84.6 Fl 84.5-98.6 N MCV) MEAN CELL HGB (test code = MCH) 26.4 pg 27.0-34.2 L MEAN CELL HGB CONCETRATION (test 31.2 G/DL 31.5-34.0 L code = MCHC) PLATELET COUNT (test code = PLT) 246.0 K/mm3 150-450 N MEAN PLATELET VOLUME (test code = 10.10 fL 7.0-10.5 N MPV) NEUTROPHIL % (test code = NT%) 74.9 % 40-76 N LYMPHOCYTE % (test code = LY%) 14.9 % 20.5-51.1 L MONOCYTE % (test code = MO%) 9.0 % 1.7-9.3 N EOSINOPHIL % (test code = EO%) 1.0 % 0.0-6.0 N BASOPHIL % (test code = BA%) 0.2 % 0.0-2.0 N NEUTROPHIL # (test code = NT#) 7.37 K/mm3 1.8-7.6 N LYMPHOCYTE # (test code = LY#) 1.5 K/mm3 0.6-3.2 N MONOCYTE # (test code = MO#) 0.9 K/mm3 0.3-1.1 N EOSINOPHIL # (test code = EO#) 0.1 K/mm3 0.0-0.4 N BASOPHIL # (test code = BA#) 0.0 K/mm3 0.0-0.1 N MANUAL DIFF REQUIRED (test code = NO DIFF/SCN CRITERIA MDIFF) CBC W/AUTO [id number] 12:08:00 Test Item Value Reference Range Interpretation Comments WHITE BLOOD CELL (test code = 9.9 K/mm3 3.5-11.0 N WBC) RED BLOOD CELL (test code = RBC) 3.37 M/mm3 4.70-6.10 L HEMOGLOBIN (test code = HGB) 8.9 G/DL 10.4-14.9 L HEMATOCRIT (test code = HCT) 28.5 % 31.5-44.1 L MEAN CELL VOLUME (test code = 84.6 Fl 84.5-98.6 N MCV) MEAN CELL HGB (test code = MCH) 26.4 pg 27.0-34.2 L MEAN CELL HGB CONCETRATION (test 31.2 G/DL 31.5-34.0 L code = MCHC) PLATELET COUNT (test code = PLT) 246.0 K/mm3 150-450 N MEAN PLATELET VOLUME (test code = 10.10 fL 7.0-10.5 N MPV) NEUTROPHIL % (test code = NT%) 74.9 % 40-76 N LYMPHOCYTE % (test code = LY%) 14.9 % 20.5-51.1 L MONOCYTE % (test code = MO%) 9.0 % 1.7-9.3 N EOSINOPHIL % (test code = EO%) 1.0 % 0.0-6.0 N BASOPHIL % (test code = BA%) 0.2 % 0.0-2.0 N NEUTROPHIL # (test code = NT#) 7.37 K/mm3 1.8-7.6 N LYMPHOCYTE # (test code = LY#) 1.5 K/mm3 0.6-3.2 N MONOCYTE # (test code = MO#) 0.9 K/mm3 0.3-1.1 N EOSINOPHIL # (test code = EO#) 0.1 K/mm3 0.0-0.4 N BASOPHIL # (test code = BA#) 0.0 K/mm3 0.0-0.1 N MANUAL DIFF REQUIRED (test code = NO DIFF/SCN CRITERIA MDIFF) RBC [id number] 12:08:00 Test Item Value Reference Range Interpretation Comments ANISOCYTOSIS (test code = 1+ NONE ANISO) MICROCYTOSIS (test code = 1+ ON SCAN NONE MICR) PLATELET ESTIMATE (test ADEQUATE THOUSAND ADEQUATE code = PLTEST) PLATELET MORPHOLOGY (test NORMAL code = PLTMORPH) CBC W/AUTO [id number] 12:08:00 Test Item Value Reference Range Interpretation Comments WHITE BLOOD CELL (test code = 9.9 K/mm3 3.5-11.0 N WBC) RED BLOOD CELL (test code = RBC) 3.37 M/mm3 4.70-6.10 L HEMOGLOBIN (test code = HGB) 8.9 G/DL 10.4-14.9 L HEMATOCRIT (test code = HCT) 28.5 % 31.5-44.1 L MEAN CELL VOLUME (test code = 84.6 Fl 84.5-98.6 N MCV) MEAN CELL HGB (test code = MCH) 26.4 pg 27.0-34.2 L MEAN CELL HGB CONCETRATION (test 31.2 G/DL 31.5-34.0 L code = MCHC) PLATELET COUNT (test code = PLT) 246.0 K/mm3 150-450 N MEAN PLATELET VOLUME (test code = 10.10 fL 7.0-10.5 N MPV) NEUTROPHIL % (test code = NT%) 74.9 % 40-76 N LYMPHOCYTE % (test code = LY%) 14.9 % 20.5-51.1 L MONOCYTE % (test code = MO%) 9.0 % 1.7-9.3 N EOSINOPHIL % (test code = EO%) 1.0 % 0.0-6.0 N BASOPHIL % (test code = BA%) 0.2 % 0.0-2.0 N NEUTROPHIL # (test code = NT#) 7.37 K/mm3 1.8-7.6 N LYMPHOCYTE # (test code = LY#) 1.5 K/mm3 0.6-3.2 N MONOCYTE # (test code = MO#) 0.9 K/mm3 0.3-1.1 N EOSINOPHIL # (test code = EO#) 0.1 K/mm3 0.0-0.4 N BASOPHIL # (test code = BA#) 0.0 K/mm3 0.0-0.1 N MANUAL DIFF REQUIRED (test code = NO DIFF/SCN CRITERIA MDIFF) BASIC METABOLIC [id number] 07:07:00 Test Item Value Reference Range Interpretation Comments SODIUM (test code = NA) 144 mmol/L 134-147 N POTASSIUM (test code = 3.2 mmol/L 3.4-5.0 L K) CHLORIDE (test code = 113 mmol/L 100-108 H CL) CARBON DIOXIDE (test 26 mmol/L 21-32 N code = CO2) ANION GAP (test code = 5.0 GAP calc 4.0-15.0 N GAP) GLUCOSE (test code = 93 MG/DL 70-110 N GLU) BLOOD UREA NITROGEN 5 MG/DL 7-18 L (test code = BUN) GLOMERULAR FILTRATION >=60 max estimate >60 RATE (test code = GFR) estGFR CREATININE (test code = 0.5 MG/DL 0.6-1.0 L CREAT) CALCIUM (test code = CA) 7.8 MG/DL 8.5-10.1 L CBC W/AUTO [id number] 06:58:00 Test Item Value Reference Range Interpretation Comments WHITE BLOOD CELL (test code = 9.9 K/mm3 3.5-11.0 N WBC) RED BLOOD CELL (test code = RBC) 3.37 M/mm3 4.70-6.10 L HEMOGLOBIN (test code = HGB) 8.9 G/DL 10.4-14.9 L HEMATOCRIT (test code = HCT) 28.5 % 31.5-44.1 L MEAN CELL VOLUME (test code = 84.6 Fl 84.5-98.6 N MCV) MEAN CELL HGB (test code = MCH) 26.4 pg 27.0-34.2 L MEAN CELL HGB CONCETRATION (test 31.2 G/DL 31.5-34.0 L code = MCHC) PLATELET COUNT (test code = PLT) 246.0 K/mm3 150-450 N MEAN PLATELET VOLUME (test code = 10.10 fL 7.0-10.5 N MPV) NEUTROPHIL % (test code = NT%) % 40-76 N LYMPHOCYTE % (test code = LY%) % 20.5-51.1 L MONOCYTE % (test code = MO%) % 1.7-9.3 N EOSINOPHIL % (test code = EO%) % 0.0-6.0 N BASOPHIL % (test code = BA%) % 0.0-2.0 N NEUTROPHIL # (test code = NT#) K/mm3 1.8-7.6 N LYMPHOCYTE # (test code = LY#) K/mm3 0.6-3.2 N MONOCYTE # (test code = MO#) K/mm3 0.3-1.1 N EOSINOPHIL # (test code = EO#) K/mm3 0.0-0.4 N BASOPHIL # (test code = BA#) K/mm3 0.0-0.1 N MANUAL DIFF REQUIRED (test code = DIFF/SCN CRITERIA MDIFF) PROCALCITONIN (PCT)2019-02-20 03:05:00 Test Item Value Reference Range Interpretation Comments PROCALCITONIN (PCT) 0.22 ng/mL 0.00-0.05 H PROCALCI TONIN (PCT) (test code = PROCAL) NORMAL RANGE (ADULT): <0.05 NG/ML. * a concentration < 0.5 ng/mL represent s a low risk of severe sepsis and/or septic s hock.* a concentration > 2 ng/mL represents a hi gh risk of severe seps is and/or septic shock.Neverthel ess, concentrations <0.5 ng/mL do not ex clude aninfection, on account of localized in fections (withoutsystemi c signs) which can be as sociated with such lowconcentratio ns, or a systemic infect ion in its initialstag es (< 6 hours). Further more, increased procalcitoninca n occur without infecti on. PCT concentrations between 0.5and 2.0 ng/m L should be interpreted taking into account thepatient's hi story. It is recommend ed to retest PCT with in6-24 hours if any concentrations <2 ng/mL are obtained. PROCALCITONIN (PCT)2019-02-20 03:05:00 Test Item Value Reference Range Interpretation Comments PROCALCITONIN (PCT) 0.22 ng/mL 0.00-0.05 A PROCALCI TONIN (PCT) (test code = PROCAL) NORMAL RANGE (ADULT): <0.05 NG/ML. * a concentration < 0.5 ng/mL represent s a low risk of severe sepsis and/or septic s hock.* a concentration > 2 ng/mL represents a hi gh risk of severe seps is and/or septic shock.Neverthel ess, concentrations <0.5 ng/mL do not ex clude aninfection, on account of localized in fections (withoutsystemi c signs) which can be as sociated with such lowconcentratio ns, or a systemic infect ion in its initialstag es (< 6 hours). Further more, increased procalcitoninca n occur without infecti on. PCT concentrations between 0.5and 2.0 ng/m L should be interpreted taking into account thepatient's hi story. It is recommend ed to retest PCT with in6-24 hours if any concentrations <2 ng/mL are obtained. - CT ABD PELVIS [id number] 20:34:00 Name: [facility]NT[facility] [place] : 1980 Age/S: 38 / F [address] Unit #: [id number] Loc: [place] [address] Phys: Cony Partida MD Acct: [id number] Dis Date: Status: ADM IN PHONE #: [phone] Exam Date: 02/19/20192024 FAX #: Reason: acute PN, possible ureteral stone EXAMS: CPT: [id number] CT ABD PELVIS W/CONT 13789 CT Abdomen and Pelvis with contrast. Location: Clinical indication: 38-year-old with pyelonephritis and possible ureteral stone. Comparison: None Technique: Computed axial images were obtained from the diaphragms through the pubic symphysis following IV administration of 100 mL Isovue-300. Up to date CT equipment and radiation dose reduction technique were utilized. Findings: Abdomen: Lung bases are clear. The liver, gallbladder, spleen, adrenal glands, and pancreas are without acute abnormality. There is heterogeneous enhancement of the right renal cortex, with adjacent mild hazy inflammation. Findings are consistent with pyelonephritis. No ureteral calculus or hydronephrosis. Left kidney is unremarkable. Bowel is unremarkable. Pelvis: Normal appe ndix. Uterus is present. No bladder is partially distended. No free pelvic fluid. No acuteosseous abnormality. Impression: 1. Right renal pyelonephritis. 2. No ureteral calculus or hydronephrosis. at 2033 Reported and signed by: Jatinder Funez M.D. CC: Jordan Jean MD; Cony Partida MD Technologist:Celia Cedeño, RT(R)(CT) CTDI: DLP: Trnscb Date/Time: 02/19/2019 (2033) [id number] Orig Print D/T: S: 02/19/2019 (2036) PAGE 1 Signed ReportUA RFLX MICR CULT IF [id number] 19:43:00 Test Item Value Reference Range Interpretation Comments UA COLOR (test code = YELLOW discript YEL/STRAW COLU) UA APPEARANCE (test code CLEAR discript CLEAR = APPU) UA GLUCOSE DIPSTICK (test NEGATIVE mg/dL NEG code = DGLUU) UA BILIRUBIN DIPSTICK NEGATIVE mg/dL NEG (test code = BILU) UA KETONE DIPSTICK (test 3+ mg/dL NEG A code = KETU) UA SPECIFIC GRAVITY (test 1.020 SG 1.005-1.030 code = SGU) UA BLOOD DIPSTICK (test 2+ mg/DL NEG A code = LUIZA) UA PH DIPSTICK (test code 6.0 pH UNITS 5.0-7.0 = RONNA) UA PROTEIN DIPSTICK (test TRACE mg/dL NEG A code = PROU) UA UROBILINIOGEN DIPSTICK 0.2 mg/dL <2.0 (test code = URO) UA NITRITE DIPSTICK (test NEGATIVE SCREEN NEG code = BRITTA) UA LEUKOCYTE ESTERASE 1+ Leuk/mcL NEGATIVE A DIPSTICK (test code = LEUU) UA WBC (test code = WBCU) 10-20 #WBC/HPF 0-3 A UA RBC (test code = RBCU) 1-3 #RBC/HPF 0-3 UA BACTERIA (test code = TRACE /HPF NONE-TRACE BACU) UA SQUAMOUS CELLS (test TRACE /HPF NONE code = SQU) UA CULTURE NEEDED? (test YES,WBC>10 & EPI<25 Culture CHK code = UACULT) Criteria SOURCE OF URINE: CLEAN CATCHIndication for culture: Flank PainUA RFLX MICR CULT IF [id number] 19:28:00 Test Item Value Reference Range Interpretation Comments UA COLOR (test code = COLU) YELLOW discript YEL/STRAW UA APPEARANCE (test code = CLEAR discript CLEAR APPU) UA GLUCOSE DIPSTICK (test NEGATIVE mg/dL NEG code = DGLUU) UA BILIRUBIN DIPSTICK (test NEGATIVE mg/dL NEG code = BILU) UA KETONE DIPSTICK (test code 3+ mg/dL NEG A = KETU) UA SPECIFIC GRAVITY (test 1.020 SG 1.005-1.030 code = SGU) UA BLOOD DIPSTICK (test code 2+ mg/DL NEG A = LUIZA) UA PH DIPSTICK (test code = 6.0 pH UNITS 5.0-7.0 RONNA) UA PROTEIN DIPSTICK (test TRACE mg/dL NEG A code = PROU) UA UROBILINIOGEN DIPSTICK 0.2 mg/dL <2.0 (test code = URO) UA NITRITE DIPSTICK (test NEGATIVE SCREEN NEG code = BRITTA) UA LEUKOCYTE ESTERASE 1+ Leuk/mcL NEGATIVE A DIPSTICK (test code = LEUU) UA CULTURE NEEDED? (test code Criteria Culture CHK = UACULT) SOURCE OF URINE: CLEAN CATCHIndication for culture: Flank PainHCG SERUM 2019-02-19 19:08:00 Test Item Value Reference Range Interpretation Comments HCG SERUM (test < 1 mi-IU/ML 0-6 N 0 - 6 NOT code = HCG) > 6 SUGGESTIVE OF EARLY RISES TWO FOLD EVERY 2 DAYS; SUGGES T RECONFIRMING AF TER 2 DAYS. 150,000-200,[address] TRIMESTER 10,00 0 - 50,000 2ND & 3RD TRIMESTER LACTIC [id number] 18:52:00 Test Item Value Reference Range Interpretation Comments LACTIC ACID (test code = LACT) 0.7 mmol/L 0.4-2.0 N CBC W/AUTO [id number] 17:55:00 Test Item Value Reference Range Interpretation Comments WHITE BLOOD CELL (test 18.4 K/mm3 3.5-11.0 H code = WBC) RED BLOOD CELL (test 3.88 M/mm3 4.70-6.10 L code = RBC) HEMOGLOBIN (test code 10.2 G/DL 10.4-14.9 L = HGB) HEMATOCRIT (test code 33.0 % 31.5-44.1 N = HCT) MEAN CELL VOLUME (test 85.1 Fl 84.5-98.6 N code = MCV) MEAN CELL HGB (test 26.3 pg 27.0-34.2 L code = MCH) MEAN CELL HGB 30.9 G/DL 31.5-34.0 L CONCETRATION (test code = MCHC) PLATELET COUNT (test 224.0 K/mm3 150-450 N code = PLT) MEAN PLATELET VOLUME 11.00 fL 7.0-10.5 H (test code = MPV) NEUTROPHIL % (test 84.6 % 40-76 H code = NT%) LYMPHOCYTE % (test 5.0 % 20.5-51.1 L code = LY%) MONOCYTE % (test code 10.2 % 1.7-9.3 H = MO%) EOSINOPHIL % (test 0.1 % 0.0-6.0 N code = EO%) BASOPHIL % (test code 0.1 % 0.0-2.0 N = BA%) NEUTROPHIL # (test 15.61 K/mm3 1.8-7.6 H code = NT#) LYMPHOCYTE # (test 0.9 K/mm3 0.6-3.2 N code = LY#) MONOCYTE # (test code 1.9 K/mm3 0.3-1.1 H = MO#) EOSINOPHIL # (test 0.0 K/mm3 0.0-0.4 N code = EO#) BASOPHIL # (test code 0.0 K/mm3 0.0-0.1 N = BA#) MANUAL DIFF REQUIRED NO DIFF/SCN CRITERIA SLIDE R EVIEW (test code = MDIFF) CONSISTA NT WITH AUTO DIFFERENTIAL. RBC [id number] 17:55:00 Test Item Value Reference Range Interpretation Comments ANISOCYTOSIS (test code = ANISO) 1+ NONE CBC W/AUTO [id number] 17:54:00 Test Item Value Reference Range Interpretation Comments WHITE BLOOD CELL (test 18.4 K/mm3 3.5-11.0 H code = WBC) RED BLOOD CELL (test 3.88 M/mm3 4.70-6.10 L code = RBC) HEMOGLOBIN (test code 10.2 G/DL 10.4-14.9 L = HGB) HEMATOCRIT (test code 33.0 % 31.5-44.1 N = HCT) MEAN CELL VOLUME (test 85.1 Fl 84.5-98.6 N code = MCV) MEAN CELL HGB (test 26.3 pg 27.0-34.2 L code = MCH) MEAN CELL HGB 30.9 G/DL 31.5-34.0 L CONCETRATION (test code = MCHC) PLATELET COUNT (test 224.0 K/mm3 150-450 N code = PLT) MEAN PLATELET VOLUME 11.00 fL 7.0-10.5 H (test code = MPV) NEUTROPHIL % (test 84.6 % 40-76 H code = NT%) LYMPHOCYTE % (test 5.0 % 20.5-51.1 L code = LY%) MONOCYTE % (test code 10.2 % 1.7-9.3 H = MO%) EOSINOPHIL % (test 0.1 % 0.0-6.0 N code = EO%) BASOPHIL % (test code 0.1 % 0.0-2.0 N = BA%) NEUTROPHIL # (test 15.61 K/mm3 1.8-7.6 H code = NT#) LYMPHOCYTE # (test 0.9 K/mm3 0.6-3.2 N code = LY#) MONOCYTE # (test code 1.9 K/mm3 0.3-1.1 H = MO#) EOSINOPHIL # (test 0.0 K/mm3 0.0-0.4 N code = EO#) BASOPHIL # (test code 0.0 K/mm3 0.0-0.1 N = BA#) MANUAL DIFF REQUIRED NO DIFF/SCN CRITERIA SLIDE R TOBYW (test code = MDIFF) CONSISTA NT WITH AUTO DIFFERENTIAL. CBC W/AUTO [id number] 17:54:00 Test Item Value Reference Range Interpretation Comments WHITE BLOOD CELL (test 18.4 K/mm3 3.5-11.0 H code = WBC) RED BLOOD CELL (test 3.88 M/mm3 4.70-6.10 L code = RBC) HEMOGLOBIN (test code 10.2 G/DL 10.4-14.9 L = HGB) HEMATOCRIT (test code 33.0 % 31.5-44.1 N = HCT) MEAN CELL VOLUME (test 85.1 Fl 84.5-98.6 N code = MCV) MEAN CELL HGB (test 26.3 pg 27.0-34.2 L code = MCH) MEAN CELL HGB 30.9 G/DL 31.5-34.0 L CONCETRATION (test code = MCHC) PLATELET COUNT (test 224.0 K/mm3 150-450 N code = PLT) MEAN PLATELET VOLUME 11.00 fL 7.0-10.5 H (test code = MPV) NEUTROPHIL % (test 84.6 % 40-76 H code = NT%) LYMPHOCYTE % (test 5.0 % 20.5-51.1 L code = LY%) MONOCYTE % (test code 10.2 % 1.7-9.3 H = MO%) EOSINOPHIL % (test 0.1 % 0.0-6.0 N code = EO%) BASOPHIL % (test code 0.1 % 0.0-2.0 N = BA%) NEUTROPHIL # (test 15.61 K/mm3 1.8-7.6 H code = NT#) LYMPHOCYTE # (test 0.9 K/mm3 0.6-3.2 N code = LY#) MONOCYTE # (test code 1.9 K/mm3 0.3-1.1 H = MO#) EOSINOPHIL # (test 0.0 K/mm3 0.0-0.4 N code = EO#) BASOPHIL # (test code 0.0 K/mm3 0.0-0.1 N = BA#) MANUAL DIFF REQUIRED NO DIFF/SCN CRITERIA SLIDE R EVIEW (test code = MDIFF) CONSISTA NT WITH AUTO DIFFERENTIAL. BASIC METABOLIC [id number] 17:43:00 Test Item Value Reference Range Interpretation Comments SODIUM (test code = NA) 137 mmol/L 134-147 N POTASSIUM (test code = 3.3 mmol/L 3.4-5.0 L K) CHLORIDE (test code = 106 mmol/L 100-108 N CL) CARBON DIOXIDE (test 25 mmol/L 21-32 N code = CO2) ANION GAP (test code = 6.0 GAP calc 4.0-15.0 N GAP) GLUCOSE (test code = 86 MG/DL 70-110 N GLU) BLOOD UREA NITROGEN 7 MG/DL 7-18 N (test code = BUN) GLOMERULAR FILTRATION >=60 max estimate >60 RATE (test code = GFR) estGFR CREATININE (test code = 0.6 MG/DL 0.6-1.0 N CREAT) CALCIUM (test code = CA) 7.4 MG/DL 8.5-10.1 L LACTIC DEHYDROGENASE(LDH)[id number] 17:43:00 Test Item Value Reference Range Interpretation Comments LACTIC DEHYDROGENASE(LDH) (test 131 Unit/L 84-246 N code = LDH) LACTIC [id number] 17:43:00 Test Item Value Reference Range Interpretation Comments LACTIC ACID (test code = LACT) 0.8 mmol/L 0.4-2.0 N BASIC METABOLIC [id number] 17:36:00 Test Item Value Reference Range Interpretation Comments SODIUM (test code = NA) 137 mmol/L 134-147 N POTASSIUM (test code = K) 3.3 mmol/L 3.4-5.0 L CHLORIDE (test code = CL) 106 mmol/L 100-108 N CARBON DIOXIDE (test code = CO2) 25 mmol/L 21-32 N ANION GAP (test code = GAP) 6.0 GAP calc 4.0-15.0 N GLUCOSE (test code = GLU) 86 MG/DL 70-110 N BLOOD UREA NITROGEN (test code = 7 MG/DL 7-18 N BUN) GLOMERULAR FILTRATION RATE (test estGFR >60 code = GFR) CREATININE (test code = CREAT) MG/DL 0.6-1.0 CALCIUM (test code = CA) 7.4 MG/DL 8.5-10.1 L LACTIC DEHYDROGENASE(LDH)2019-02-19 17:36:00 Test Item Value Reference Range Interpretation Comments LACTIC DEHYDROGENASE(LDH) (test code Unit/L 84-246 = LDH) CBC W/AUTO [id number] 17:35:00 Test Item Value Reference Range Interpretation Comments WHITE BLOOD CELL (test code = 18.4 K/mm3 3.5-11.0 H WBC) RED BLOOD CELL (test code = RBC) 3.88 M/mm3 4.70-6.10 L HEMOGLOBIN (test code = HGB) 10.2 G/DL 10.4-14.9 L HEMATOCRIT (test code = HCT) 33.0 % 31.5-44.1 N MEAN CELL VOLUME (test code = 85.1 Fl 84.5-98.6 N MCV) MEAN CELL HGB (test code = MCH) 26.3 pg 27.0-34.2 L MEAN CELL HGB CONCETRATION (test 30.9 G/DL 31.5-34.0 L code = MCHC) PLATELET COUNT (test code = PLT) 224.0 K/mm3 150-450 N MEAN PLATELET VOLUME (test code = 11.00 fL 7.0-10.5 H MPV) NEUTROPHIL % (test code = NT%) % 40-76 H LYMPHOCYTE % (test code = LY%) % 20.5-51.1 L MONOCYTE % (test code = MO%) % 1.7-9.3 H EOSINOPHIL % (test code = EO%) % 0.0-6.0 N BASOPHIL % (test code = BA%) % 0.0-2.0 N NEUTROPHIL # (test code = NT#) K/mm3 1.8-7.6 H LYMPHOCYTE # (test code = LY#) K/mm3 0.6-3.2 N MONOCYTE # (test code = MO#) K/mm3 0.3-1.1 H EOSINOPHIL # (test code = EO#) K/mm3 0.0-0.4 N BASOPHIL # (test code = BA#) K/mm3 0.0-0.1 N MANUAL DIFF REQUIRED (test code = DIFF/SCN CRITERIA MDIFF)
[2019-11-15] MEDS ORDERED: ONDANSETRON 4 MG/2 ML VIAL ONE (11:54)
[2019-11-15] MEDS ORDERED: KETOROLAC 30 MG/ML INJ ONE (11:54)
[2019-11-15] MEDS ORDERED: CEFTRIAXONE/SWI 1gm 1 GM/10 ML SYR ONE (11:54)
[2019-11-15] MEDS ORDERED: MORPHINE 2 MG/ML SYR ONE (11:54)
[2019-11-15] MEDS ORDERED: NA CHLORIDE 0.9% 1,000 ML ONE (11:55)
[2019-11-15 12:14] LABS: Absolute Lymphocytes (CBC) 2.1 K/uL (0.7-4.9); Basophils % 0.5 % (0-1.3); Hematocrit 42.5 % (36.0-45.0); Lymphocytes % 23.5 % (15.3-44.8); MPV 10.1 fL (7.6-11.3); RBC Red Blood Cell Count 4.86 M/uL (3.86-4.86)
[2019-11-15 12:29] LABS: Albumin 3.9 g/dL (3.4-5.0); Bilirubin Total 0.2 mg/dL (0.2-1.0); Potassium 4.1 mmol/L (3.5-5.1); Protein, Total 7.6 g/dL (6.4-8.2)
--- NOTE | 2019-11-15 12:35 | RAD REPORT ---
EXAM DESCRIPTION: CT - Stone Protocol - 11/15/2019 12:26 pm CLINICAL HISTORY: Flank pain. Flank pain;Kidney stones COMPARISON: Stone Protocol dated 03/09/2018 TECHNIQUE: Axial images were obtained without oral or IV contrast. Lack of contrast limits solid org an and vascular assessment. The [id number] spans the entirety of the system partially obscuring uppermost abdomen and lung bases. Coronal reformatted images were obtained and reviewed. All CT scans are performed using dose optimization technique as appropriate and may include automated exposure control or mA/KV adjustment according to patient size. FINDINGS: The lower lung mohan are clear. Imaged portions of the liver and spleen show no suspicious findings on non-contrast imaging. The panc reas and adrenal glands are normal. No pathologic lymphadenopathy in the abdomen or pelvis. No urinary tract stones or obstructive uropathy. No bowel obstruction, free air, free fluid or abscess. Normal appendix noted. No significant bony abnormality. IMPRESSION: No urinary tract stones or obstructive uropathy.
--- NOTE | 2019-11-15 13:51 | ER ---
Nurse's Notes [facility] Name: Yohana Reeves Age: 39 yrs Sex: Female : 1980 Arrival Date: 11/15/2019 Time: 11:21 Bed 6 Private MD: Diagnosis: Dysuria Presentation: 11/14 11:42 Chief complaint: Patient states: trouble urinating, urgency, frequency X 2 days, also iw has left flank pain, hx of kidney stones. Coronavirus screen: Client denies travel out of the [place] in the last 14 days. chills. Ebola Screen: Patient negative for fever greater than or equal to 101.5 degrees Fahrenheit, and additional compatible Ebola Virus Disease symptoms Patient denies exposure to infectious person. Patient denies travel to an Ebola-affected area in the 21 days before illness onset. No symptoms or risks identified at this time. Initial Sepsis Screen: Does the patient meet any 2 criteria? No. Patient's initial sepsis screen is negative. Does the patient have a suspected source of infection? No. Patient's initial sepsis screen is negative. Risk Assessment: Do you want to hurt yourself or someone else? Patient reports no desire to harm self or others. Onset of symptoms was November 14, 2019. 11:42 Method Of Arrival: Ambulatory iw 11:42 Acuity: NICOLASA 3 iw Triage Assessment: 12:09 General: Appears in no apparent distress. uncomfortable, ill, Behavior is calm, bp cooperative, appropriate for age. Pain: Complains of pain in left mid back and left low back. EENT: Reports pain. Neuro: Level of Consciousness is awake, alert, obeys commands. Historical: - Allergies: 11:46 No Known Allergies; iw - Home Meds: 11:46 Prozac 40 mg Oral cap 1 cap once daily [Active]; Abilify 15 mg oral tab 1 tab once iw daily [Active]; hydrocodone-acetaminophen 5-325 mg Oral tab 1 tab every 4-6 hours [Active]; losartan oral oral [Active]; Bystolic oral oral once daily [Active]; - PMHx: 11:46 Kidney stones; iw - PSHx: 11:46 ; iw - Immunization history:: Adult Immunizations not up to date. - Social history:: Smoking status: Patient reports the use of cigarette tobacco products, smokes one-half pack cigarettes per day. - Family history:: not pertinent. Screenin:10 Abuse screen: Denies threats or abuse. Denies injuries from another. Nutritional bp screening: No deficits noted. Tuberculosis screening: No symptoms or risk factors identified. Fall Risk None identified. Assessment: 12:10 General: SEE TRIAGE NOTE. bp 12:47 Reassessment: PT RETURNED FROM CT. ALL CURRENT ORDERS COMPLETED, RESULTS PENDING. GI: bp Bowel sounds present X 4 quads. Abd is soft X 4 quads. 14:17 Reassessment: PT D/C HOME AMBULATORY, DX WITH DYSURIA. bp Vital Signs: 11:42 BP 124 / 93; Pulse 105; Resp 16 S; Temp 97.7; Pulse Ox 99% on R/A; Weight 77.11 kg; iw Height 5 ft. 5 in. (165.10 cm); Pain 8/10; 12:47 BP 126 / 78; Pulse 84; Resp 16; Pulse Ox 97% ; bp 14:17 BP 105 / 85; Pulse 73; Resp 16; Temp 98.1; Pulse Ox 100% ; bp 11:42 Body Mass Index 28.29 (77.11 kg, 165.10 cm) iw ED Course: 11:21 Patient arrived in ED. ag5 11:31 Scott Mari MD is Attending Physician. israel 11:33 Rolo Simental, RN is Primary Nurse. bp 11:43 Triage completed. iw 11:46 Arm band placed on. iw 11:55 Patient has correct armband on for positive identification. Bed in low position. Call bp light in reach. Side rails up X2. 11:55 No provider procedures requiring assistance completed. Inserted saline lock: 20 gauge bp in right forearm, using aseptic technique. Blood collected. 12:26 CT Stone Protocol In Process Unspecified. EDMS 13:49 Brois Myles MD is Referral Physician. israel 14:20 IV discontinued, intact, bleeding controlled, No redness/swelling at site. Pressure bp dressing applied. Administered Medications: 11:55 Drug: NS 0.9% 1000 ml Route: IV; Rate: 1 bolus; Site: right forearm; bp 14:20 Follow up: IV Status: Completed infusion; IV Intake: 1000ml bp 11:55 Drug: TORadol 30 mg Route: IVP; Site: right forearm; bp 14:11 Follow up: Response: Pain is decreased bp 11:55 Drug: Rocephin 1 grams Route: IV; Rate: per protocol; Site: right forearm; bp 14:20 Follow up: IV Status: Completed infusion; IV Intake: 20ml bp 11:55 Drug: Zofran (Ondansetron) 4 mg Route: IVP; Site: right forearm; bp 14:11 Follow up: Response: Nausea is decreased bp 11:55 Drug: morphine 2 mg Route: IVP; Site: right forearm; bp 14:11 Follow up: Response: Pain is decreased bp Intake: 14:20 IV: 1000ml; Total: 1000ml. bp 14:20 IV: 20ml; Total: 1020ml. bp Outcome: 13:50 Discharge ordered by . israel 14:19 Discharged to home ambulatory. bp 14:19 Condition: stable 14:19 Discharge instructions given to patient, Instructed on discharge instructions, follow up and referral plans. medication usage, Demonstrated understanding of instructions, follow-up care, medications, Prescriptions given X 2. 14:20 Patient left the ED. bp Signatures: Dispatcher [employer] EDMT Scott Mari MD MD cha Williams, Irene, RN RN iw Rolo Simental RN RN David Armstrong ag5 Corrections: (The following items were deleted from the chart) 11:46 11:43 Allergies: NKDA [Inactive]; israel lozano
--- NOTE | 2019-11-15 13:51 | EDPHYS ---
Physician Documentation [facility] Name: Yohana Reeves Age: 39 yrs Sex: Female : 1980 Arrival Date: 11/15/2019 Time: 11:21 Bed 6 Private MD: THELMA Physician Scott Mari HPI: 11/14 11:41 This 39 yrs old Female presents to ER via Unassigned with complaints of israel Possible Kidney Stone. 11:41 The patient complains of pain in the left low back and left mid back. The pain radiates israel to the left low back and left mid back. Onset: The symptoms/episode began/occurred 3 day(s) ago. Modifying factors: The symptoms are alleviated by nothing. Associated signs and symptoms: Pertinent positives: dysuria, urinary frequency. Severity of pain: At its worst the pain was moderate in the emergency department the pain is unchanged. The patient has experienced a previous episode, last year. Historical: - Allergies: 11:46 No Known Allergies; iw - Home Meds: 11:46 Prozac 40 mg Oral cap 1 cap once daily [Active]; Abilify 15 mg oral tab 1 tab once iw daily [Active]; hydrocodone-acetaminophen 5-325 mg Oral tab 1 tab every 4-6 hours [Active]; losartan oral oral [Active]; Bystolic oral oral once daily [Active]; - PMHx: 11:46 Kidney stones; iw - PSHx: 11:46 ; iw - Immunization history:: Adult Immunizations not up to date. - Social history:: Smoking status: Patient reports the use of cigarette tobacco products, smokes one-half pack cigarettes per day. - Family history:: not pertinent. ROS: 11:43 Constitutional: Negative for fever, chills, and weight loss, Eyes: Negative for injury, israel pain, redness, and discharge, ENT: Negative for injury, pain, and discharge, Neck: Negative for injury, pain, and swelling, Cardiovascular: Negative for chest pain, palpitations, and edema, Respiratory: Negative for shortness of breath, cough, wheezing, and pleuritic chest pain, Abdomen/GI: Negative for abdominal pain, nausea, vomiting, diarrhea, and constipation, : Negative for injury, bleeding, discharge, and swelling, MS/Extremity: Negative for injury and deformity, Skin: Negative for injury, rash, and discoloration, Neuro: Negative for headache, weakness, numbness, tingling, and seizure, Psych: Negative for depression, anxiety, suicide ideation, homicidal ideation, and hallucinations, Allergy/Immunology: Negative for hives, rash, and allergies, Endocrine: Negative for neck swelling, polydipsia, polyuria, polyphagia, and marked weight changes, Hematologic/Lymphatic: Negative for swollen nodes, abnormal bleeding, and unusual bruising. 11:43 Back: Positive for flank pain, on the left. Exam: 11:43 Constitutional: This is a well developed, well nourished patient who is awake, alert, israel and in no acute distress. Head/Face: Normocephalic, atraumatic. Eyes: Pupils equal round and reactive to light, extra-ocular motions intact. Lids and lashes normal. Conjunctiva and sclera are non-icteric and not injected. Cornea within normal limits. Periorbital areas with no swelling, redness, or edema. ENT: Nares patent. No nasal discharge, no septal abnormalities noted. Tympanic membranes are normal and external auditory canals are clear. Oropharynx with no redness, swelling, or masses, exudates, or evidence of obstruction, uvula midline. Mucous membranes moist. Neck: Trachea midline, no thyromegaly or masses palpated, and no cervical lymphadenopathy. Supple, full range of motion without nuchal rigidity, or vertebral point tenderness. No Meningismus. Chest/axilla: Normal chest wall appearance and motion. Nontender with no deformity. No lesions are appreciated. Cardiovascular: Regular rate and rhythm with a normal S1 and S2. No gallops, murmurs, or rubs. Normal PMI, no JVD. No pulse deficits. Respiratory: Lungs have equal breath sounds bilaterally, clear to auscultation and percussion. No rales, rhonchi or wheezes noted. No increased work of breathing, no retractions or nasal flaring. Abdomen/GI: Soft, non-tender, with normal bowel sounds. No distension or tympany. No guarding or rebound. No evidence of tenderness throughout. Skin: Warm, dry with normal turgor. Normal color with no rashes, no lesions, and no evidence of cellulitis. MS/ Extremity: Pulses equal, no cyanosis. Neurovascular intact. Full, normal range of motion. Neuro: Awake and alert, GCS 15, oriented to person, place, time, and situation. Cranial nerves II-XII grossly intact. Motor strength 5/5 in all extremities. Sensory grossly intact. Cerebellar exam normal. Normal gait. Psych: Awake, alert, with orientation to person, place and time. Behavior, mood, and affect are within normal limits. 11:43 Back: pain, that is mild, that is moderate, ROM is normal, normal spinal alignment noted, CVA tenderness, that is mild, that is moderate, is noted on the left, muscle spasm, is not present. Vital Signs: 11:42 BP 124 / 93; Pulse 105; Resp 16 S; Temp 97.7; Pulse Ox 99% on R/A; Weight 77.11 kg; iw Height 5 ft. 5 in. (165.10 cm); Pain 8/10; 12:47 BP 126 / 78; Pulse 84; Resp 16; Pulse Ox 97% ; bp 14:17 BP 105 / 85; Pulse 73; Resp 16; Temp 98.1; Pulse Ox 100% ; bp 11:42 Body Mass Index 28.29 (77.11 kg, 165.10 cm) iw MDM: 11:32 Patient medically screened. israel 11:46 Data reviewed: vital signs, nurses notes. Data interpreted: bus monitor: rate is israel 105 beats/min, Pulse oximetry: on room air is 99 %. Counseling: I had a detailed discussion with the patient and/or guardian regarding: the historical points, exam findings, and any diagnostic results supporting the discharge/admit diagnosis, lab results, radiology results, the need for outpatient follow up, for definitive care, a urologist. 13:46 Differential diagnosis: nephrolithiasis, pyelonephritis, UTI, diverticulitis. [facility] Medication response: Zofran partially relieved the patient's nausea. ED course: pt still complaines of left flank pain and dysuria, no rash, abd is benign. 11/14 11:38 Order name: CBC with Diff; Complete Time: 13:28 [facility] 11/14 11:38 Order name: Comprehensive Metabolic Panel; Complete Time: 13:28 [facility] 11/14 11:38 Order name: CT Stone Protocol; Complete Time: 13:28 [facility] 11/14 11:38 Order name: Urine Culture [facility] 11/14 12:35 Order name: Urine Dipstick--Ancillary (enter results) 11/14 12:35 Order name: Urine --Ancillary (enter results) 11/14 11:38 Order name: Urine Dipstick-Ancillary (obtain specimen); Complete Time: 12:04 [facility] 11/14 11:38 Order name: Urine Test (obtain specimen); Complete Time: 12:04 [facility] Administered Medications: 11:55 Drug: NS 0.9% 1000 ml Route: IV; Rate: 1 bolus; Site: right forearm; bp 14:20 Follow up: IV Status: Completed infusion; IV Intake: 1000ml bp 11:55 Drug: TORadol 30 mg Route: IVP; Site: right forearm; bp 14:11 Follow up: Response: Pain is decreased bp 11:55 Drug: Rocephin 1 grams Route: IV; Rate: per protocol; Site: right forearm; bp 14:20 Follow up: IV Status: Completed infusion; IV Intake: 20ml bp 11:55 Drug: Zofran (Ondansetron) 4 mg Route: IVP; Site: right forearm; bp 14:11 Follow up: Response: Nausea is decreased bp 11:55 Drug: morphine 2 mg Route: IVP; Site: right forearm; bp 14:11 Follow up: Response: Pain is decreased bp Disposition: 11/15/19 13:50 Discharged to Home. Impression: Dysuria. - Condition is Stable. - Discharge Instructions: Dysuria. - Prescriptions for ketorolac 10 mg Oral tablet - take 1 tablet by ORAL route every 6 hours for up to 5 days total use; 12 tablet. Cipro 250 mg Oral Tablet - take 1 tablet by ORAL route every 12 hours; 14 tablet. - Medication Reconciliation Form, Thank You Letter, Antibiotic Education, Prescription Opioid Use form. - Work release form (11/16/19 10:14). bd - Follow up: Private Physician; When: 2 - 3 days; Reason: Recheck today's complaints, Continuance of care, Re-evaluation by your physician. Follow up: Boris Myles MD; When: 2 - 3 days; Reason: Recheck today's complaints, Re-evaluation by your physician. - Problem is new. - Symptoms have improved. Signatures: Dispatcher [employer] EDMS Scott Mari MD MD cha Williams, Irene, RN RN iw Peltier, Brian, RN RN Makayla Gallego Corrections: (The following items were deleted from the chart) 11:46 11:43 Allergies: NKDA [Inactive]; israel iw 14:20 13:50 11/15/2019 13:50 Discharged to Home. Impression: Dysuria. Condition is Stable. bp Forms are Medication Reconciliation Form, Thank You Letter, Antibiotic Education, Prescription Opioid Use. Follow up: Private Physician; When: 2 - 3 days; Reason: Recheck today's complaints, Continuance of care, Re-evaluation by your physician. Follow up: Boris Myles; When: 2 - 3 days; Reason: Recheck today's complaints, Re-evaluation by your physician. Problem is new. Symptoms have improved. israel
[2019-11-15 13:52] LABS: Urine Blood NEGATIVE (NEG); Urine Glucose NEGATIVE (NEG); Urine Protein NEGATIVE (NEG)
[2019-11-15 14:47] VITALS: BP 105/85; TEMP 98.1; O2SAT 100
== END 2019-11-15 14:20 | disposition home or self-care (01) ==
LOC: ER 11:20
DX: R30.0 Dysuria (principal); Z87.442 Personal history of urinary calculi; F17.210 Nicotine dependence, cigarettes, uncomplicated
CPT/HCPCS: 87088; 85025; 87086; 36415; 81025; 81003; 80053; 76377; 74176; J2270; J0696; J7030; J2405; 96365; 96366; 96375; 99284

== ENCOUNTER 2019-11-17 12:03 | Emergency (ER) | payer OTHER ==
[2019-11-17] MEDS ORDERED: NA CHLORIDE 0.9% 250 ML ONE (13:28)
[2019-11-17] MEDS ORDERED: METOCLOPRAMIDE 10 MG/2mL INJ ONE (13:28)
[2019-11-17] MEDS ORDERED: DIPHENHYDRAMINE 50 MG/ML VIAL ONE (13:28)
[2019-11-17 13:30] LABS: Absolute Lymphocytes (CBC) 2.1 K/uL (0.7-4.9); Basophils % 0.6 % (0-1.3); Hematocrit 42.2 % (36.0-45.0); Lymphocytes % 21.8 % (15.3-44.8); MPV 10.4 fL (7.6-11.3); RBC Red Blood Cell Count 4.87 M/uL (3.86-4.86)
--- OUTSIDE RECORDS SUMMARY | 2019-11-17 13:35 | XMS REPORT | Continuity of Care Document ---
:1980 Author Organization [facility] t Address [address] [place] [address] [address] [place] [address] Care Team Providers Name Role Phone Stacey Isabel Attending Clinician Payers Payer Name Policy Type Policy Number Effective Date Expiration Date S ource Problems This patient has no known problems. Allergies, Adverse Reactions, Alerts Allergy Allergy Status Severity Reaction(s) Onset Inactive Treating Comm ents Source Name Type Date Date Clinician ally [place] Active [facility] 7-29 Clear ylate 00:00: Jones 00 [facility] Medications This patient has no known medications. Procedures This patient has no known procedures. Encounters Start End Encounter Admission Attending Care Care Encounter Source Date/Time Date/Time Type Type Clinicians Facility Department ID 2019-06-02 2019-06-02 Emergency Chris [facility] [id number] 11:18:34 14:43:00 Candido Leon [id number] [place] [id number] [place] [id number] Results Test Description Test Time Test Comments Results Result Comments Source - XR CHEST 1 V 2019-02-22 Name: VCI JAMES 19:54:00 [facility] Silviano : 1980 Age/S: 38 / F [address] Unit #: [id number] Loc: [place] [address] Phys: Génesis King MD Acct: [id number] Dis Date: Status: ADM IN PHONE #: [phone] Exam Date: 02/22/20191940 FAX #: Reason: SOB EXAMS: CPT: [id number] XR CHEST 1 V 20707 Fluoro Time: DAP (Gy m2): Air Kerma [...] PAGE 1 Signed Report Name: VIC JAMES [place] : 1980 Age/S: 38 / F [address] Unit #: [id number] Loc: [place] [address] Phys: Génesis King MD Acct: [id number] Dis Date: Status: ADM IN PHONE #: [phone] Exam Date: 02/22/20191940 FAX #: Reason: SOB EXAMS: CPT: [id number] XR CHEST 1 V 11069 Fluoro Time: DAP (Gy m2): Air Kerma (mGy): <Continued> Technologist: Jordan Chacon, RT(R)(CT) Trnscb Date/Time: 02/22/2019 (1953) tLITW Orig Print D/T: S: 02/22/2019 (1956) PAGE 2 Signed Report - [facility] 2019-02-22 Name: 15:32:00 VIC JAMES [place] : 1980 Age/S: 38 / F [address] Unit #: [id number] Loc: [place] [address] Phys: Génesis King MD Acct: [id number] Dis Date: Status: ADM IN PHONE #: [phone] Exam Date: 02/22/2019 1200 FAX #: Reason: back pain EXAMS: CPT: [id number] [employer] RETRO LTD 61289 EXAMINATION: - US RETRO LTD. LOCATION: T18. [...] PAGE 1 Signed Report Name: VIC JAMES [facility] : 1980 Age/S: 38 / F [address] Unit #: [id number] Loc: [place] [address] Phys: Génesis King MD Acct: [id number] Dis Date: Status: ADM IN PHONE #: [phone] Exam Date: 02/22/2019 1200 FAX #: Reason: back pain EXAMS: CPT: [id number] [employer] [address]2546 <Continued> Orig Print D/T: S: 02/22/2019 (1535) [...] WITH = MDIFF) AUTO DIFFERENTI AL. RBC [id number] 12:09:00 Test Item Value Reference Range Interpretation Comments ANISOCYTOSIS (test code = 1+ NONE ANISO) MICROCYTOSIS (test code = 1+ ON SCAN NONE MICR) PLATELET ESTIMATE (test ADEQUATE THOUSAND ADEQUATE code = PLTEST) PLATELET MORPHOLOGY (test NORMAL code = PLTMORPH) CBC W/AUTO [id number] 12:08:00 Test Item Value Reference Range Interpretation [...] = NO DIFF/SCN CRITERIA MDIFF) CBC W/AUTO [id number] 12:08:00 Test Item Value Reference Range Interpretation [...] code = NO DIFF/SCN CRITERIA MDIFF) RBC [id number] 12:08:00 Test Item Value Reference Range Interpretation Comments ANISOCYTOSIS (test code = 1+ NONE ANISO) MICROCYTOSIS (test code = 1+ ON SCAN NONE MICR) PLATELET ESTIMATE (test ADEQUATE THOUSAND ADEQUATE code = PLTEST) PLATELET MORPHOLOGY (test NORMAL code = PLTMORPH) CBC W/AUTO [id number] 12:08:00 Test Item Value Reference Range Interpretation [...] = NO DIFF/SCN CRITERIA MDIFF) BASIC METABOLIC [id number] 07:07:00 Test Item Value Reference Range Interpretation [...] CA) 7.8 MG/DL 8.5-10.1 L CBC W/AUTO [id number] 06:58:00 Test Item Value Reference Range Interpretation [...] ng/mL are obtained. - CT ABD PELVIS [id number] 20:34:00 [facility] [place] : 1980 Age/S: 38 / F [address] Unit #: [id number] Loc: [place] [address] Phys: Cony Partida MD Acct: [id number] Dis Date: Status: ADM IN PHONE #: [phone] Exam Date: 02/19/20192024 FAX #: Reason: acute PN, possible ureteral stone EXAMS: CPT: [id number] CT ABD PELVIS W/CONT 51763 CT Abdomen and Pelvis with contrast. Location: [...] 1 Signed ReportUA RFLX MICR CULT IF [id number] 19:43:00 Test Item Value Reference Range Interpretation [...] culture: Flank PainUA RFLX MICR CULT IF [id number] 19:28:00 Test Item Value Reference Range Interpretation [...] - 50,000 2ND & 3RD TRIMESTER LACTIC [id number] 18:52:00 Test Item Value Reference Range Interpretation Comments LACTIC ACID (test code = LACT) 0.7 mmol/L 0.4-2.0 N CBC W/AUTO [id number] 17:55:00 Test Item Value Reference Range Interpretation [...] MDIFF) CONSISTA NT WITH AUTO DIFFERENTIAL. RBC [id number] 17:55:00 Test Item Value Reference Range Interpretation Comments ANISOCYTOSIS (test code = ANISO) 1+ NONE CBC W/AUTO [id number] 17:54:00 Test Item Value Reference Range Interpretation [...] CONSISTA NT WITH AUTO DIFFERENTIAL. CBC W/AUTO [id number] 17:54:00 Test Item Value Reference Range Interpretation [...] CONSISTA NT WITH AUTO DIFFERENTIAL. BASIC METABOLIC [id number] 17:43:00 Test Item Value Reference Range Interpretation [...] Unit/L 84-246 N code = LDH) LACTIC [id number] 17:43:00 Test Item Value Reference Range Interpretation Comments LACTIC ACID (test code = LACT) 0.8 mmol/L 0.4-2.0 N BASIC METABOLIC [id number] 17:36:00 Test Item Value Reference Range Interpretation [...] code Unit/L 84-246 = LDH) CBC W/AUTO [id number] 17:35:00 Test Item Value Reference Range Interpretation [...]
[2019-11-17 13:42] LABS: ALT/SGPT 20 U/L (12-78); AST/SGOT 9 U/L (15-37); Albumin 3.8 g/dL (3.4-5.0); Alkaline Phosphatase 105 U/L (45-117); BUN Blood Urea Nitrogen 8 mg/dL (7-18); Bicarbonate 28 mmol/L (21-32); Bilirubin Direct < 0.1 mg/dL (0-0.2); Bilirubin Total 0.2 mg/dL (0.2-1.0); Glucose Level 88 mg/dL (74-106); Lipase 113 U/L (73-393); Potassium 3.9 mmol/L (3.5-5.1); Protein, Total 7.5 g/dL (6.4-8.2); Sodium Level 141 mmol/L (136-145)
--- NOTE | 2019-11-17 14:32 | RAD REPORT ---
EXAM DESCRIPTION: CTAbdomen Pelvis W Contrast - 11/17/2019 2:15 pm CLINICAL HISTORY: Abdominal pain. lower abdominal pain, diarrhea COMPARISON: CT ABD PELVIS W CONTRAST dated 12/22/2013; CT ABD PELVIS W CONTRAST dated 10/13/2013; CT AB D PELVIS W CONTRAST dated 03/18/2012; Stone Protocol dated 11/15/[address]NIQUE: [address] CT imaging of the abdomen and pelvis was performed with 100 ml non-ionic IV cont rast. All CT scans are performed using dose optimization technique as appropriate and may include automated exposure control or mA/KV adjustment according to patient size. FINDINGS: The lung bases are clear. The liver demonstrates fatty liver infiltration. The spleen, pancreas, adrenal glands and kidneys are within normal limits. No bowel obstruction, free air, free fluid or abscess. The appendix is normal. No evidence of signi ficant lymphadenopathy. No suspicious bony findings. IMPRESSION: No acute intra-abdominal or pelvic finding. Fatty liver.
[2019-11-17] MEDS ORDERED: ONDANSETRON 4 MG/2 ML VIAL ONE (14:53)
[2019-11-17] MEDS ORDERED: FENTANYL CITR 100 MCG/2 ML ONE (14:53)
--- NOTE | 2019-11-17 15:37 | ER ---
Nurse's Notes [facility] Name: Yohana Reeves Age: 39 yrs Sex: Female : 1980 Arrival Date: 11/17/2019 Time: 12:04 Bed 19 Private MD: Diagnosis: Gastrointestinal hemorrhage, unspecified;Lower abdominal pain, unspecified Presentation: 11/16 12:26 Chief complaint: Patient states: N/V continues since visit here 2 days ago. Had bright ll1 red blood in stool today. Stopped taking cipro. Coronavirus screen: Client denies travel out of the [place] in the last 14 days. At this time, the client does not indicate any symptoms associated with coronavirus-19. Coronavirus screen: The client reports previous COVID testing was negative. Ebola Screen: Patient denies travel to an Ebola-affected area in the 21 days before illness onset. Initial Sepsis Screen: Does the patient meet any 2 criteria? HR > 90 bpm. Risk Assessment: Do you want to hurt yourself or someone else? Patient reports no desire to harm self or others. Onset of symptoms was November 15, 2019. 12:26 Method Of Arrival: Ambulatory ll1 12:26 Acuity: NICOLASA 3 ll1 15:14 Initial Sepsis Screen: Does the patient have a suspected source of infection? No. ph Patient's initial sepsis screen is negative. Triage Assessment: 12:59 General: Appears. ph Historical: - Allergies: 12:26 No Known Drug Allergies; ll1 - PMHx: 12:26 Kidney stones; GI Bleed; ll1 - PSHx: 12:26 ; ll1 - Immunization history:: Flu vaccine is not up to date. - Social history:: Smoking status: Patient reports the use of cigarette tobacco products, smokes one-half pack cigarettes per day, Patient uses alcohol, occasionally. Patient/guardian denies using street drugs. Screenin:45 Abuse screen: Denies threats or abuse. Denies injuries from another. Nutritional ph screening: No deficits noted. Tuberculosis screening: No symptoms or risk factors identified. Fall Risk None identified. Assessment: 13:15 General: Appears in no apparent distress. comfortable, well groomed, Behavior is ph cooperative, appropriate for age, anxious, Denies fever, feeling ill. Pain: Complains of pain in abdomen. Neuro: Level of Consciousness is awake, alert, obeys commands, Oriented to person, place, time, situation. Cardiovascular: Capillary refill < 3 seconds in bilateral fingers Patient's skin is warm and dry. Respiratory: Airway is patent Respiratory effort is even, unlabored, Respiratory pattern is regular, symmetrical. GI: Abdomen is round non-distended, Reports lower abdominal pain, upper abdominal pain, bloody stool, nausea, vomiting. Derm: Skin is intact, is healthy with good turgor, Skin is pink, warm \T\ dry. Musculoskeletal: Circulation, motion, and sensation intact. Range of motion: intact in all extremities. 14:35 Reassessment: Patient appears in no apparent distress at this time. Patient and/or ph family updated on plan of care and expected duration. Pain level reassessed. Patient is alert, oriented x 3, equal unlabored respirations, skin warm/dry/pink. Pt continues to c/o abdominal pain, ERP notified, see MAR. 15:38 Reassessment: Patient appears in no apparent distress at this time. Patient and/or ph family updated on plan of care and expected duration. Pain level reassessed. Patient is alert, oriented x 3, equal unlabored respirations, skin warm/dry/pink. Pt d/c home, instructed to follow up w/ GI. Vital Signs: 12:26 BP 112 / 76; Pulse 104; Resp 18; Temp 98.3; Pulse Ox 98% ; Weight 77.11 kg; Height 5 ll1 ft. 2 in. (157.48 cm); Pain 8/10; 14:15 BP 118 / 74; Pulse 66; Resp 18; Pulse Ox 100% on R/A; ph 15:12 BP 118 / 84; Pulse 67; Resp 18; Temp 97.8; Pulse Ox 99% on R/A; ph 12:26 Body Mass Index 31.09 (77.11 kg, 157.48 cm) 1 ED Course: 12:04 Patient arrived in ED. fj1 12:29 Triage completed. ll1 12:29 Arm band placed on Patient placed in an exam room, on a stretcher. 1 12:31 Lance Smart PA is PHCP. [facility] 12:31 Alvin Zavala MD is Attending Physician. [facility] 12:36 Jael Dang RN is Primary Nurse. ph 12:45 Patient has correct armband on for positive identification. Placed in gown. Bed in low ph position. Call light in reach. Side rails up X 1. Pulse ox on. NIBP on. Door closed. Noise minimized. Lights dimmed. Warm blanket given. 13:00 Inserted saline lock: 20 gauge in right antecubital area, using aseptic technique. ph Blood collected. 15:13 No provider procedures requiring assistance completed. ph 15:35 Get Treviño MD is Referral Physician. [facility] 15:54 IV discontinued, intact, bleeding controlled, No redness/swelling at site. Pressure ph dressing applied. Administered Medications: 13:28 Drug: NS 0.9% 250 ml Route: IV; Rate: bolus; Site: right antecubital; ph 14:15 Follow up: Response: No adverse reaction; IV Status: Completed infusion; IV Intake: ph 250ml 13:29 Drug: Reglan 20 mg Route: IVP; Site: right antecubital; ph 15:10 Follow up: Response: No adverse reaction ph 13:29 Drug: diphenhydrAMINE 12.5 mg Route: IVP; Site: right antecubital; ph 15:10 Follow up: Response: No adverse reaction ph 14:51 Drug: fentaNYL (PF) 50 mcg Route: IVP; Site: right antecubital; ph 15:10 Follow up: Response: No adverse reaction; Pain is decreased; RASS: Alert and Calm (0) ph Intake: 14:15 IV: 250ml; Total: 250ml. ph Outcome: 15:37 Discharge ordered by . [facility] 15:54 Discharged to home ambulatory. ph 15:54 Condition: good 15:54 Discharge instructions given to patient, Instructed on discharge instructions, follow up and referral plans. medication usage, Demonstrated understanding of instructions, follow-up care, medications, Prescriptions given X 2. 15:55 Patient left the ED. ph Signatures: Lance Smart PA PA jmm Hall, Patricia, RN RN ph Edd Rinaldi 1 Francisca Miller RN RN ll1 Corrections: (The following items were deleted from the chart) 15:10 15:09 Response: No adverse reaction ph ph
--- NOTE | 2019-11-17 15:37 | EDPHYS ---
Physician Documentation [facility] Name: Yohana Reeves Age: 39 yrs Sex: Female : 1980 Arrival Date: 11/17/2019 Time: 12:04 Bed 19 Private MD: ED Physician Alvin Zavala HPI: 11/16 12:43 This 39 yrs old Female presents to ER via Ambulatory with complaints of jmm Bloody Stools, Vomiting. 12:43 The patient presents with abdominal pain. Onset: The symptoms/episode began/occurred jmm gradually, 2 day(s) ago. The symptoms do not radiate. Associated signs and symptoms: Pertinent positives: nausea and vomiting, bloody stools. The symptoms are described as achy, sharp. This is a 39 year old female with a history of kidney stones that presents to the ED with complaints of multiple episodes of vomiting, lower abdominal pain. Patient she noted bright red blood with her bowel movement. Denies rectal pain. Patient states having a history of GI bleeding. Patient recently seen in the ED and prescribed cipro for dysuria. . Historical: - Allergies: 12:26 No Known Drug Allergies; ll1 - PMHx: 12:26 Kidney stones; GI Bleed; ll1 - PSHx: 12:26 ; ll1 - Immunization history:: Flu vaccine is not up to date. - Social history:: Smoking status: Patient reports the use of cigarette tobacco products, smokes one-half pack cigarettes per day, Patient uses alcohol, occasionally. Patient/guardian denies using street drugs. ROS: 12:43 Constitutional: Negative for fever, chills, and weight loss, Cardiovascular: Negative jmm for chest pain, palpitations, and edema, Respiratory: Negative for shortness of breath, cough, wheezing, and pleuritic chest pain. 12:43 Abdomen/GI: Positive for abdominal pain, nausea and vomiting, rectal bleeding. 12:43 : Negative for urinary symptoms. 12:43 All other systems are negative. Exam: 12:43 Constitutional: This is a well developed, well nourished patient who is awake, alert, jmm and in no acute distress. Head/Face: atraumatic. Eyes: EOMI, no conjunctival erythema appreciated ENT: Moist Mucus Membranes Neck: Trachea midline, Supple Chest/axilla: Normal chest wall appearance and motion. Cardiovascular: Regular rate and rhythm. No edema appreciated Respiratory: Normal respirations, no respiratory distress appreciated Back: Normal ROM Skin: General appearance color normal MS/ Extremity: Moves all extremities, no obvious deformities appreciated, no edema noted to the lower extremities Neuro: Awake and alert, normal gait Psych: Behavior is normal, Mood is normal, Patient is cooperative and pleasant 12:43 Abdomen/GI: Inspection: abdomen appears normal, Bowel sounds: normal, Palpation: soft, mild abdominal tenderness, in the suprapubic area, right lower quadrant and left lower quadrant. 12:43 Back: CVA tenderness, that is mild, is noted bilaterally. Vital Signs: 12:26 BP 112 / 76; Pulse 104; Resp 18; Temp 98.3; Pulse Ox 98% ; Weight 77.11 kg; Height 5 ll1 ft. 2 in. (157.48 cm); Pain 8/10; 14:15 BP 118 / 74; Pulse 66; Resp 18; Pulse Ox 100% on R/A; ph 15:12 BP 118 / 84; Pulse 67; Resp 18; Temp 97.8; Pulse Ox 99% on R/A; ph 12:26 Body Mass Index 31.09 (77.11 kg, 157.48 cm) ll1 MDM: 12:43 Patient medically screened. [facility] 15:33 Data reviewed: vital signs, nurses notes. [facility] 15:33 Counseling: I had a detailed discussion with the patient and/or guardian regarding: the [facility] historical points, exam findings, and any diagnostic results supporting the discharge/admit diagnosis, lab results, radiology results, the need for outpatient follow up, to return to the emergency department if symptoms worsen or persist or if there are any questions or concerns that arise at home. ED course: Patient is alert and non toxic in appearance in the ED. Patient is able to tolerate PO. H/H WNL. CT negative. I do not suspect an acutely threatening process. Patient is a patient of Dr. Treviño. Patient is advised to follow up with Dr. Wilkins for reevaluation and otherwise given strict return precautions. Patient understood and agrees with the plan of care. . 08 12:54 Order name: CBC with Diff [facility] 11/16 12:56 Order name: Group A Streptococcus Rapid Sc [facility] 11/16 12:56 Order name: Basic Metabolic Panel [facility] 11/16 12:56 Order name: Hepatic Function [facility] 11/16 12:56 Order name: Lipase [facility] 11/16 12:57 Order name: Type And Screen [facility] 11/16 13:33 Order name: CBC with Automated Diff; Complete Time: 13:47 EDMS 11/16 13:42 Order name: Basic Metabolic Panel; Complete Time: 13:47 EDMS 11/16 13:42 Order name: Liver (Hepatic) Function; Complete Time: 13:47 EDMS 11/16 13:42 Order name: Lipase; Complete Time: 13:47 EDMS 11/16 14:22 Order name: Type and Screen; Complete Time: 14:24 [facility] 11/16 15:02 Order name: Urine Dipstick--Ancillary (enter results) 11/16 12:54 Order name: Urine Dipstick-Ancillary (obtain specimen); Complete Time: 15:11 [facility] 11/16 12:56 Order name: IV Saline Lock; Complete Time: 13:19 [facility] 11/16 12:56 Order name: Labs collected and sent; Complete Time: 13:19 [facility] 11/16 13:48 Order name: CT Abd/Pelvis - IV Contrast Only [facility] 11/16 14:33 Order name: CT; Complete Time: 14:34 [facility] 11/16 15:02 Order name: Urine --Ancillary (enter results) bd Administered Medications: 13:28 Drug: NS 0.9% 250 ml Route: IV; Rate: bolus; Site: right antecubital; ph 14:15 Follow up: Response: No adverse reaction; IV Status: Completed infusion; IV Intake: ph 250ml 13:29 Drug: Reglan 20 mg Route: IVP; Site: right antecubital; ph 15:10 Follow up: Response: No adverse reaction ph 13:29 Drug: diphenhydrAMINE 12.5 mg Route: IVP; Site: right antecubital; ph 15:10 Follow up: Response: No adverse reaction ph 14:51 Drug: fentaNYL (PF) 50 mcg Route: IVP; Site: right antecubital; ph 15:10 Follow up: Response: No adverse reaction; Pain is decreased; RASS: Alert and Calm (0) ph Disposition: 11/17 07:58 Co-signature as Attending Physician, Alvin Zavala MD I agree with the assessment and kdr plan of care. Disposition: 11/17/19 15:37 Discharged to Home. Impression: Gastrointestinal hemorrhage, unspecified, Lower abdominal pain, unspecified. - Condition is Stable. - Discharge Instructions: Abdominal Pain, Adult, Gastrointestinal Bleeding. - Prescriptions for Zofran ODT 4 mg Oral tablet,disintegrating - place 1 tablet by TRANSLINGUAL route every 4-6 hours; 20 tablet. Ultracet 37.5- 325 mg Oral Tablet - take 1 tablet by ORAL route every 6 hours - for up to 5 days; do not exceed 8 tablets per day.; 20 tablet. - Medication Reconciliation Form, Thank You Letter, Antibiotic Education, Prescription Opioid Use, Work release form form. - Follow up: Get Treviño MD; When: 2 - 3 days; Reason: Recheck today's complaints, Continuance of care, Re-evaluation by your physician. Signatures: Dispatcher [employer] EDMS Alvin Zavala MD MD kdr Mickail, Joel, PA PA jmm Hall, Patricia RN RN ph Francisca Milelr RN RN ll1 Corrections: (The following items were deleted from the chart) 11/16 12:56 12:54 IV Saline Lock ordered. shashi danielle 15:55 15:37 11/17/2019 15:37 Discharged to Home. Impression: Gastrointestinal hemorrhage, ph unspecified; Lower abdominal pain, unspecified. Condition is Stable. Forms are Medication Reconciliation Form, Thank You Letter, Antibiotic Education, Prescription Opioid Use. Follow up: Gte Treviño; When: 2 - 3 days; Reason: Recheck today's complaints, Continuance of care, Re-evaluation by your physician. donnie
[2019-11-17 16:18] VITALS: BP 118/84; TEMP 97.8; O2SAT 99
[2019-11-17 16:41] LABS: Urine Blood NEGATIVE (NEG); Urine Glucose NEGATIVE (NEG); Urine Protein NEGATIVE (NEG); Urine Specific Gravity 1.015 (1.005-1.030)
== END 2019-11-17 15:55 | disposition home or self-care (01) ==
LOC: ER 12:03
DX: K92.2 Gastrointestinal hemorrhage, unspecified (principal); F17.210 Nicotine dependence, cigarettes, uncomplicated
CPT/HCPCS: 85025; 80048; 36415; 86900; 86850; 81025; 86901; 80076; 81003; 83690; 74177; Q9967; J2765; J1200; J3010; J7050; J2405; 96361; 96374; 96375; 99284

== ENCOUNTER 2020-05-15 11:56 | Emergency (ER) | payer OTHER ==
--- OUTSIDE RECORDS SUMMARY | 2020-05-15 12:10 | XMS REPORT | Summary of Care ---
:1980 Author Organization [facility] - [facility] Address [address] [place] [id number] Care Team Providers Name Role Phone Pcp, Does Not Have A Primary Care Provider Reason for Referral MRI/CAT Scan (STAT) Status Reason Specialty Diagnoses / Referred By Referred To Procedures Contact Contact New Request Diagnostic Diagnoses Chest pain, unspecified type Ann Cardozo Radiology Procedures CT Head W/O Contrast J, DO [address] [place], [place] [id number] Reason for Visit Reason Comments Headache Auth/Cert Status Reason Specialty Diagnoses / Referred By Referred To Procedures Contact Contact Emergency Medicine [facility] ergency Dept [address] [place] [address] Fax: Encounter Details Date Type Department Care Team Description 04/27/2020 Emergency [facility]-Emergency Ann Cardozo, Chest p ain, unspecified type (Primary Dx); Department DO Migraine without status migrainosus, not intractable, unspecified migraine type [id number] [place] [address] [phone] Allergies No Known Allergiesdocumented as of this encounter (statuses as of 04/27/2020) Medications Medication Sig Dispensed Refills Start Date End Date Status nebivolol HCl Take by mouth 0 A ctive (BYSTOLIC ORAL) daily. zolpidem (AMBIEN) 10 Take 10 mg by 0 Active mg tablet mouth at bedtime. FLUoxetine (PROZAC) Take 80 mg by 0 Active 40 mg capsule mouth daily. ARIPiprazole Take 5 mg by 0 Acti ve (ABILIFY) 5 mg mouth daily. tablet HYDROcodone-acetamin Take 1 tablet 0 Active ophen (NORCO) 5-325 by mouth 2 mg tablet (two) times daily. venlafaxine XR Take 75 mg by 0 A ctive (EFFEXOR XR) 75 mg mouth daily 24 hr capsule with breakfast. ondansetron 4 mg Take 2 tablets 20 tablet 0 01/24/2020 Active tabletIndications: by mouth every Abdominal pain, 8 (eight) unspecified hours as abdominal location, needed for Pyelonephritis Nausea and Vomiting (N/V). traMADoL 50 mg Take 1 tablet 20 tablet 0 01/24/2020 Discontinued tabletIndications: by mouth every 1 acute pain 6 (six) hours as needed for Pain (scale 4-6). Indications: acute pain documented as of this encounter (statuses as of 04/27/2020) Active Problems Problem Noted Date Tachycardia 02/08/2020 Family history of early CAD 02/08/2020 Chest pain 02/07/2020 Obesity (BMI 30-39.9) 02/07/2020 Right lower quadrant abdominal pain 01/04/2019 RLQ abdominal pain 01/04/2019 Anxiety 01/04/2019 Chronic low back pain 01/04/2019 documented as of this encounter (statuses as of 04/27/2020) Social History Tobacco Use Types Packs/Day Years Used Date Former Smoker Cigarettes Quit: 12/05/19 Smokeless Tobacco: Never Used Comments: rarely Alcohol Use Drinks/Week oz/Week Comments Yes occasionally Sex Assigned at Date Recorded Not on file COVID-19 Exposure Response Date Recorded In the last month, have you been in contact with No / Unsure 04/27/2020 11:23 AM QA AUDITOR someone who was confirmed or suspected to have Coronavirus / COVID-19? documented as of this encounter Last Filed Vital Signs Vital Sign Reading Time Taken Comments Blood Pressure 112/87 04/27/2020 5:25 PM QA AUDITOR Pulse 78 04/27/2020 5:25 PM QA AUDITOR Temperature 37.1 C (98.7 F) 04/27/2020 11:24 AM QA AUDITOR Respiratory Rate 18 04/27/2020 5:25 PM QA AUDITOR Oxygen Saturation 99% 04/27/2020 5:25 PM QA AUDITOR Inhaled Oxygen Concentration - - Weight 77.1 kg (170 lb) 04/27/2020 11:24 AM QA AUDITOR Height 157.5 cm (5' 2") 04/27/2020 11:24 AM QA AUDITOR Body Mass Index 31.09 04/27/2020 11:24 AM QA AUDITOR documented in this encounter Discharge Instructions Ann Herron, - 1DIAGNOSIS 1. Migraine Headache NO LIFE-THREATENING FINDINGS ON TODAY'S EXAM. PROCEDURES IN THE ER TODAY: Blood work EKG CT head MEDICATIONS ADMINISTERED IN THE ER TODAY: IV fluids Stadol Decadron Esgic Benadryl Haldol Toradol Ativan Reglan Zofran Phenergan Imitrex IV fluids YOUR PRESCRIPTIONS AND IUPT-HAL-PFDNUAO MEDICATION RECOMMENDATIONS: None SPECIAL CARE INSTRUCTIONS: None FOLLOW-UP RECOMMENDATIONS: RECOMMEND FOLLOW-UP WITH A PRIMARY CARE PROVIDER OR SPECIALIST IN 2-5 DAYS, ESPECIALLY IF NO IMPROVEMENT IN SYMPTOMS. TO FOLLOW-UP WITHIN THE [facility], TRY THESE OPTIONS (CLINIC APPOINTMENTS AVAILABLE ON MNTT-YS-FCPB BASIS): 1. SCHEDULE AN APPOINTMENT ONLINE AT WWW.[facility] 2. OR CALL THE [facility] AT OR 3. OR CALL YOUR [facility] PHYSICIAN'S OFFICE DIRECTLY IF YOU ARE ALREADY AN ESTABLISHED [facility] PATIENT. OR, YOU MAY FOLLOW-UP WITH A PROVIDER OF YOUR CHOICE, SUCH : 1. A PHYSICIAN OF YOUR CHOICE 2. [facility], . LOCATIONS IN [facility] 3. [facility], [address] [place] [address]; [phone] RETURN TO ER FOR WORSENING OF SYMPTOMS. AttachmentsThe following attachments cannot be sent through Care Everywhere. Headache, Migraine: Stages and Treatment ([place]ese)documented in this encounter ED Notes Nayely Tompkins RN - 04/27/2020 11:24 AM CSTHeadache x3 days. Concerned for her loss of appetite. She has taken hydrocodone, Aleve with no relief. Ann Shepard, - 04/27/2020 11:20 AM CST [facility] Emergency Department Note Patient Name: Yohana Reeves Date of : 1980 39 year old female Treatment Room: TX5/TX5 Primary Care Physician: PATIENT DOES NOT HAVE A PCP Patient Escorted by: Self [9] Mode of Arrival: Personal means [1] EMS Treatment Prior to ED Arrival: GROUP PROGRAM MANAGER treatment: Other (comment) GROUP PROGRAM MANAGER treatment comments: aleve Travel and Exposure Screening: Symptoms Does patient have any of these symptoms?: (not recorded) Exposure Screening Has patient had contact with someone with a communicable disease in the last month?: (not recorded) Diseases exposed to:: (not recorded) Is Patient ?: (not recorded) Exposure Date: (not recorded) Chief Complaint: Chief Complaint Patient presents with Headache History of Present Illness: Patient presents for eval for REY x 3 days. No injury or trauma. No fevers. No neck pain or stiffness. No weakness to arms/legs. REY worse with bright lights or loud sounds. Has tried some otc meds and not helping. Had norco around 0800 and it has not helped. Has h/o migraines and this feels likeher priors. Nausea but no vomiting. No cp or sob. No cough or URI sx. Here for eval. Past Medical History/Immunizations: Past Medical History: Diagnosis Date Anxiety and depression Lumbar disc herniation Myocardial infarction in 2003 with child c section Pleurisy Tachycardia Tetanus received in last 5 years: Yes Childhood immunizations: Up-to-date Allergies: No Known Allergies Past Social History: Tobacco Use Former Smoker; Quit 12/04/2018; Smoked: Cigarettes. Smokeless Tobacco: Never used smokeless tobacco. Comments: rarely Alcohol Use Yes. Comments: occasionally Drug Use Never. Past Surgical History: Past Surgical History: Procedure Laterality Date SECTION LAPAROTOMY Review of Systems: Review of Systems Constitutional: Negative for chills and fever. Eyes: Positive for photophobia. Respiratory: Negative for cough and shortness of breath. Cardiovascular: Negative for chest pain. Gastrointestinal: Negative for abdominal pain, nausea and vomiting. Genitourinary: Negative for dysuria. Musculoskeletal: Negative for arthralgias, neck pain and neck stiffness. Skin: Negative for wound. Neurological: Positive for headaches. Psychiatric/Behavioral: Negative for agitation. Physical Exam: ED Triage Vitals [04/27/20 1124] Weight 77.1 kg (170 lb) Actual or estimated Estimated by patient/family report Height 1.575 m (5' 2") BP 121/81 Pulse 89 Resp 17 Temp 37.1 C (98.7 F) Temp source Oral SpO2 99 % Measured on Room air Physical Exam Vitals signs and nursing note reviewed. Constitutional: Appearance: Normal appearance. HENT: Head: Normocephalic and atraumatic. Neck: Musculoskeletal: Normal range of motion and neck supple. No muscular tenderness. Comments: No meningismus Cardiovascular: Rate and Rhythm: Regular rhythm. Pulmonary: Effort: Pulmonary effort is normal. Musculoskeletal: Normal range of motion. Skin: General: Skin is warm and dry. Neurological: General: No focal deficit present. Mental Status: She is alert and oriented to person, place, and time. Radiology: Hospital Encounter on 04/27/20 CT Head W/O Contrast Narrative CT HEAD WITHOUT CONTRAST HISTORY: Headache, acute, normal neuro exam COMPARISON: None. TECHNIQUE: CT axial images of the head were obtained from vertex to skull base. Multiplanar reformats were submitted for review. FINDINGS: The ventricles and sulci are normal in size and configuration. No intracranial abnormality such as hemorrhage, edema, mass-effect, midline shift, hydrocephalus or extra axial fluid collection is appreciated. The basal cisterns are patent. No parenchymal attenuation abnormality. The velez-white matter differentiation is preserved. The calvarium and skull base are intact. The paranasal sinuses and mastoid air cells are clear. Impression No acute intracranial abnormality. Lab Results (24h): Recent Results (from the past 24 hour(s)) Basic Metabolic Panel (NA, K, CL, CO2, GLUCOSE, BUN, CREATININE, CA) Collection Time: 04/27/20 12:41 PM Result Value Ref Range NA 139 135 - 145 mmol/L K 4.1 3.5 - 5.0 mmol/L CL 98 98 - 108 mmol/L CO2 TOTAL 32 (H) 23 - 31 mmol/L AGAP 9 2 - 16 BUN 11 7 - 23 mg/dL GLUCOSE 86 70 - 110 mg/dL CREATININE 0.78 0.50 - 1.04 mg/dL CALCIUM 10.2 8.6 - 10.6 mg/dL eGFR Calculation (Non-) 82.2 mL/min/1.73m2 eGFR Calculation () 99.7 mL/min/1.73m2 Troponin I Collection Time: 04/27/20 12:41 PM Result Value Ref Range TROPONIN I <0.012 <=0.034 ng/mL CBC with Differential Collection Time: 04/27/20 12:41 PM Result Value Ref Range WBC 8.10 4.30 - 11.10 10*3/L RBC 5.23 3.93 - 5.25 10*6/L HGB 15.2 (H) 11.6 - 15.0 g/dL HCT 47.3 (H) 35.7 - 45.2 % MCV 90.4 80.6 - 95.5 fL MCH 29.1 25.9 - 32.8 pg MCHC 32.1 31.6 - 35.1 g/dL RDW-SD 42.5 39.0 - 49.9 fL RDW-CV 12.8 12.0 - 15.5 % PLT 243 166 - 358 10*3/L MPV 11.9 9.5 - 12.9 fL NRBC/100 WBC 0.0 0.0 - 10.0 /100 WBCs NRBC x10^3 <0.01 10*3/L GRAN MAT (NEUT) % 62.6 % IMM GRAN % 0.20 % LYMPH % 26.7 % MONO % 9.0 % EOS % 1.1 % BASO % 0.4 % GRAN MAT x10^3(ANC) 5.07 1.88 - 7.09 10*3/uL IMM GRAN x10^3 <0.03 0.00 - 0.06 10*3/uL LYMPH x10^3 2.16 1.32 - 3.29 10*3/uL MONO x10^3 0.73 0.33 - 0.92 10*3/uL EOS x10^3 0.09 0.03 - 0.39 10*3/uL BASO x10^3 0.03 0.01 - 0.07 10*3/uL Orders and Treatments: Orders Placed This Encounter Procedures CT Head W/O Contrast Basic Metabolic Panel (NA, K, CL, CO2, GLUCOSE, BUN, CREATININE, CA) Troponin I CBC with Differential Orders Placed This Encounter Medications metoclopramide HCl (REGLAN) injection 10 mg diphenhydrAMINE (BENADRYL) injection 25 mg ketorolac (TORADOL) injection 30 mg NaCl 0.9% (NS) bolus infusion 1,000 mL dexamethasone (DECADRON PHOSPHATE) injection 10 mg butorphanol (STADOL) injection 1 mg ondansetron (ZOFRAN (PF)) injection 4 mg SUMAtriptan (IMITREX) injection 6 mg haloperidol lactate (HALDOL) injection 2.5 mg njfqmmzsyd-rqmexohyxgbyo-arki (ESGIC) 50-325-40 mg tablet 1 tablet LORazepam (ATIVAN) injection 1 mg proMETHazine (PHENERGAN) 25 mg in NaCl 0.9% (NS) 50 mL piggyback butorphanol (STADOL) injection 1 mg ED COURSE patient presents for eval for REY x 3 days. Worse with bright lights and loud sounds. No injury or trauma. No fever. No neck pain or stiffness. Tried some otc meds at home and not really helping. Hadnorco around 0800 today. Has h/o migraines. VSS here in the EC. Neck supple without meningismus. No focal neuro deficits. No concern for SAH or bacterial meningitis based on H&P. Will give migraine cocktail. Anticipate discharge home later. 1230 - patient continues with REY and nausea. Will give zofran and stadol. 1320 - patient states nausea improved but REY still present. Will try haldol and imitrex. Will obtain CT head. Will reeval. 1650 - REY improving. Nausea resolved. Patient doing well. Stable here in the EC and is ok for discharge home with PCP f/u. MDM: Coding Scoring Tools: No data recorded Diagnosis/Impression: ICD-10-CM ICD-9-CM 1. Chest pain, unspecified type R07.9 786.50 2. Migraine without status migrainosus, not intractable, unspecified migraine type G43.909 346.90 Disposition/Condition: ED Disposition ED Disposition Condition Comment Disch - Home Stable Discharge Medications: Current Discharge Medication List CONTINUE these medications which have NOT CHANGED Details HYDROcodone-acetaminophen (NORCO) 5-325 mg tablet Take 1 tablet by mouth 2 (two) times daily. ondansetron 4 mg tablet Take 2 tablets by mouth every 8 (eight) hours as needed for Nausea and Vomiting (N/V). Qty: 20 tablet, Refills: 0 Associated Diagnoses: Abdominal pain, unspecified abdominal location; Pyelonephritis venlafaxine XR (EFFEXOR XR) 75 mg 24 hr capsule Take 75 mg by mouth daily with breakfast. ARIPiprazole (ABILIFY) 5 mg tablet Take 5 mg by mouth daily. FLUoxetine (PROZAC) 40 mg capsule Take 80 mg by mouth daily. nebivolol HCl (BYSTOLIC ORAL) Take by mouth daily. zolpidem (AMBIEN) 10 mg tablet Take 10 mg by mouth at bedtime. STOP taking these medications traMADoL 50 mg tablet Comments: Reason for Stopping: Follow-up: Electronically signed by: Ann Cardozo DO 04/27/2020 11:50 AM AUDITOR documented in this encounter Miscellaneous Notes ED Nurse Note - Elise Robins RN - 04/27/2020 5:30 PM CSTPatient assisted to car without incident. Discharge instructions/prscribed medications reviewed with pt with verbalized understanding. NAD, respirations even and unlabored, AOX4. AUDITOR documented in this encounter Plan of Treatment Health Maintenance Due Date Last Done Comments VARICELLA VACCINES (1 of 2 - 1981 2-dose childhood series) Depression Screening 1992 DTaP,Tdap,and Td Vaccines (1 - 10/09/1999 Tdap) PAP SMEAR 2001 INFLUENZA VACCINE (#1) 2019 PNEUMOCOCCAL 0-64 YEARS COMBINED Aged Out No longer eligible based on SERIES patient's age to complete this topic documented as of this encounter Procedures Procedure Name Priority Date/Time Associated Diagnosis Comme nts CT HEAD WO CONTRAST STAT 04/27/2020 1:40 PM Chest pain, R esults for this QA AUDITOR unspecified type procedure a re in the results section. CBC WITH DIFF STAT 04/27/2020 12:41 PM Chest pain, Results for this QA AUDITOR unspecified type procedure a re in the results section. BASIC METABOLIC STAT 04/27/2020 12:41 PM Chest pain, Resul ts for this PANEL (NA, K, CL, QA AUDITOR unspecified type proced ure are in CO2, GLUCOSE, BUN, the resul ts CREATININE, CA) section. TROPONIN I STAT 04/27/2020 12:41 PM Chest pain, Results for this QA AUDITOR unspecified type procedure a re in the results section. HB ECG ROUTINE & STAT 04/27/2020 11:58 AM Chest pain, RHYTHM STRIP QA AUDITOR unspecified type NOTICE OF PRIVACY Routine 04/27/2020 11:21 AM PRACTICES QA AUDITOR CONSENT/REFUSAL FOR Routine 04/27/2020 11:21 AM DIAGNOSIS AND QA AUDITOR TREATMENT documented in this encounter Results CT Head W/O Contrast (04/27/2020 1:40 PM QA AUDITOR) Specimen Impressions Performed At PACS/VR/DOSE No acute intracranial abnormality. Narrative Performed At This result has an attachment that is no t available. CT HEAD WITHOUT CONTRAST PACS/VR/DOSE HISTORY: Headache, acute, normal neuro exam COMPARISON: None. TECHNIQUE: CT axial images of the head were obtained f rom vertex to skull base. Multiplanar reformats were submitted for review. FINDINGS: The ventricles and sulci are normal in size and config uration. No intracranial abnormality such as hemorrhage, edema, ma ss-effect, midline shift, hydrocephalus or extra axial fluid collection i s appreciated. The basal cisterns are patent. No parenchymal attenuation abnormality. The velez-white matter differentiation is preserved. The calvarium and skull base are intact. The paranas al sinuses and mastoid air cells are clear. Procedure Note [facility], Radiant Results Inft User - 2020 1:[address] HEAD WITHOUT CONTRAST HISTORY: Headache, acute, normal neuro e xam COMPARISON: None. TECHNIQUE: CT axial images of the head w ere obtained from vertex to skull base. Multiplanar reformats were submitt ed for review. FINDINGS: The ventricles and sulci are normal in s ize and configuration. No intracranial abnormality such as hemorrh age, edema, mass-effect, midline shift, hydrocephalus or extra axial flui d collection is appreciated. The basal cisterns are patent. No parenchymal attenuation abnormality. The velez-white matter differentiation is preserved. The calvarium and skull base are intact. The paranasal sinuses and mastoid air cells are clear. IMPRESSION No acute intracranial abnormality. Performing Organization Address City/State/Zipcode Phone Number PACS/VR/DOSE CBC with Differential (04/27/2020 12:41 PM QA AUDITOR) [facility] WBC 8.10 4.30 - 11.10 [facility] 10*3/L [facility] RBC 5.23 3.93 - 5.25 [facility] 10*6/L [facility] HGB 15.2 (H) 11.6 - 15.0 [facility] g/dL [facility] HCT 47.3 (H) 35.7 - 45.2 % [facility] MCV 90.4 80.6 - 95.[address] [facility] MCH 29.1 25.9 - 32.[address] [facility] MCHC 32.1 31.6 - 35.1 [facility] g/dL [facility] RDW-SD 42.5 39.0 - 49.[address] [facility] RDW-CV 12.8 12.0 - 15.5 % [facility] PLT 243 166 - 358 [facility] 10*3/L [facility] MPV 11.9 9.5 - 12.[address] [facility] NRBC/100 WBC 0.0 0.0 - 10.0 /100 [facility] WBCs [facility] NRBC x10^3 <0.01 10*3/L [facility] GRAN MAT (NEUT) % 62.6 % [facility] IMM GRAN % 0.20 % [facility] LYMPH % 26.7 % [facility] MONO % 9.0 % [facility] EOS % 1.1 % [facility] BASO % 0.4 % [facility] GRAN MAT x10^3(ANC) 5.07 1.88 - 7.09 [facility] 10*3/uL [facility] IMM GRAN x10^3 <0.03 0.00 - 0.06 [facility] 10*3/uL [facility] LYMPH x10^3 2.16 1.32 - 3.29 [facility] 10*3/uL [facility] MONO x10^3 0.73 0.33 - 0.92 [facility] 10*3/uL [facility] EOS x10^3 0.09 0.03 - 0.39 [facility] 10*3/uL [facility] BASO x10^3 0.03 0.01 - 0.07 [facility] 10*3/uL [facility] Specimen Blood - VENOUS Performing Organization Address City/State/Zipcode Phone Number [facility] CLIA: [id number] [place] [address] LABORATORY [address] [facility] Troponin I (04/27/2020 12:41 PM QA AUDITOR) Pathologist Sig nature TROPONIN I <0.012 <=0.034 ng/mL [facility] Specimen Blood - VENOUS Narrative Performed At Equal or Less than 0.034 ng/ml---Normal [facility] Note: Cardiac troponin begins to rise 3-4 hours after the onset of ischemia. Repeat in 4-6 hours if the sample was drawn within 3-4 hours of the onset of the symptom and found normal. Between 0.035 and 0.120 ng/mL--- Borderline. Questionable myocardial injury or necros is Note: Serial measurement may be necessary to confirm or exclude the diagnosis of myocardial injury or necrosis; Clinical correlation (symptoms, EKGs, imaging studies, and others) required; Repeat in 4-6 hours if clinically indicated. Equal or Higher than 0.121 ng/mL---Abnormal. Myocardial Injury or Necrosis Likely Biotin has been reported to cause a negative bias, interpret results relative to patient's use of biotin. Performing Organization Address City/State/Zipcode Phone Number [facility] CLIA: [id number] [place] [address] LABORATORY 132 [facility] Basic Metabolic Panel (NA, K, CL, CO2, GLUCOSE, BUN, CREATININE, CA) (04/27/2020 12:41 PM QA AUDITOR) [facility] [employer] NA 139 135 - 145 [facility] mmol/L [facility] K 4.1 3.5 - 5.0 [facility] mmol/L [facility] CL 98 98 - 108 mmol/L [facility] CO2 TOTAL 32 (H) 23 - 31 mmol/L [facility] AGAP 9 2 - 16 [facility] BUN 11 7 - 23 mg/dL [facility] GLUCOSE 86 70 - 110 mg/dL [facility] CREATININE 0.78 0.50 - 1.04 [facility] mg/dL [facility] CALCIUM 10.2 8.6 - 10.6 [facility] mg/dL [facility] eGFR Calculation 82.2 mL/min/1.73m2 [facility] (Non-[facility]) [facility] LABOR[facility] Y eGFR Calculation 99.7 mL/min/1.73m2 [facility] LABORATORY Specimen Blood - VENOUS Narrative Performed At [facility] of Glomerular Filtration Rate (GFR) [facility] and Staging of Kidney Disease* + + +- + | GFR (mL/min/1.73 m2) | With Kidney Damage | Without Kidney Damage + + +- + | >90 | Stage one | Normal + + +- + | 60-89 | Stage two | Decreased GFR + + +- + | 30-59 | Stage three | Stage three + + +- + | 15-29 | Stage four | Stage four + + +- + | <15 (or dialysis) | Stage five | Stage five + + +- + *Each stage assumes the associated GFR level has been in effect for at least three months. Stages 1 to 5, with or without kidney disease, indicate chronic kidney disease. Notes: Determination of stages one and two (with eGFR >59mL/min/1.73 m2) requires estimation of kidney damage for at least three months as defined by structural or functional abnormalities of the kidney, manifested by either: Pathological abnormalities or Markers of kidney damage (including abnormalities in the composition of the blood or urine or abnormalities in imaging tests). Performing Organization Address City/State/Zipcode Phone Number [facility] CLIA: [id number] [place], [place] [id number] [address] documented in this encounter Visit Diagnoses Diagnosis Chest pain, unspecified type - Primary Migraine without status migrainosus, not intractable, unspecified migraine type documented in this encounter Administered Medications Medication Order MAR Action Action Date Dose Rate Site yrujmhcctz-sibynqvwbiszk-iwqv Given 04/27/2020 2:40 PM QA AUDITOR 1 ta blet (ESGIC) 50-325-40 mg tablet 1 tablet 1 tablet, Oral, ONCE, 1 dose, Thu04/27/20 at 1530, Routine butorphanol (STADOL) injection 1 mg Given 04/27/2020 12:40 PM QA AUDITOR 1 mg 1 mg, IV Push, ONCE, 1 dose, Thu04/27/20 at 1345, Routine butorphanol (STADOL) injection 1 mg Given 04/27/2020 5:22 PM QA AUDITOR 1 mg 1 mg, IV Push, ONCE, 1 dose, Thu04/27/20 at 1800, Routine dexamethasone (DECADRON PHOSPHATE) injection Given 11:53 AM QA AUDITOR 10 mg 10 mg 10 mg, IV Push, ONCE, 1 dose, 04/27/20 at 1245, STAT diphenhydrAMINE (BENADRYL) injection 25 mg Given 04/27/2020 11:53 AM QA AUDITOR 25 mg 25 mg, Slow IV Push, ONCE, 1 dose, 04/27/20 at 1245, STAT haloperidol lactate (HALDOL) injection 2.5 Given 04/27/2020 1:28 PM QA AUDITOR 2.5 mg mg 2.5 mg, Intravenous, ONCE, 1 dose, Thu04/27/20 at 1430, STAT ketorolac (TORADOL) injection 30 mg Given 04/27/2020 11:53 AM QA AUDITOR 30 mg 30 mg, Slow IV Push, ONCE, 1 dose, Thu04/27/20 at 1200, LORENE, research assistant member approving Restricted medication: ANN CARDOZO LORazepam (ATIVAN) injection 1 mg Given 04/27/2020 2:41 PM QA AUDITOR 1 mg 1 mg, Slow IV Push, ONCE, 1 dose, Thu04/27/20 at 1530, STAT metoclopramide HCl (REGLAN) injection 10 mg Given 04/27/2020 11:53 AM QA AUDITOR 10 mg 10 mg, Slow IV Push, ONCE, 1 dose, Thu04/27/20 at 1245, LORENE NaCl 0.9% (NS) bolus infusion New Bag 04/27/2020 11:52 AM QA AUDITOR 1,000 mL 999 mL/hr 1,000 mL at 999 mL/hr, 1,000 mL, IV Infusion, ONCE, 1 dose, 04/27/20 at 1200, LORENE ondansetron (ZOFRAN (PF)) injection 4 mg Given 04/27/2020 12:40 PM QA AUDITOR 4 mg 4 mg, Slow IV Push, ONCE, 1 dose, 04/27/20 at 1345, LORENE proMETHazine (PHENERGAN) 25 mg in NaCl 0.9% Given 04/27/2020 4:45 PM QA AUDITOR 25 mg (NS) 50 mL piggyback 25 mg, IV Piggyback, ONCE, 1 dose, 04/27/20 at 1645, 50 mL SUMAtriptan (IMITREX) injection 6 mg Given 04/27/2020 1:32 PM QA AUDITOR 6 mg Abdo men-SC 6 mg, Subcutaneous, ONCE, 1 dose, Thu04/27/20 at 1430, LORENE documented in this encounter Insurance Payer Benefit Plan / Subscriber ID Effective Dates Phone Addre ss Type Group [facility] CLAIMS [id number] 2017-Present PPO documented as of this encounter
--- OUTSIDE RECORDS SUMMARY | 2020-05-15 12:10 | XMS REPORT | Continuity of Care Document ---
:1980 Author Organization [facility] t Address [address] [place] [place] [address] Care Team Providers Name Role Phone Edis Sims DO Attending Clinician Travis MALDONADO Attending Clinician Rachelle MALDONADO Attending Clinician Esdras Monterroso Attending Clinician Doctor Unassigned, Name Attending Clinician Unavailable Stacey Isabel Attending Clinician Rachelle MALDONADO Admitting Clinician Payers Payer Name Policy Type Policy Number Effective Date Expiration Date S ource Problems This patient has no known problems. Allergies, Adverse Reactions, Alerts Allergy Allergy Status Severity Reaction(s) Onset Inactive Treating Comm ents Source Name Type Date Date Clinician ally PEARL Active [place] 2009- [facility] subsalic 7-29 Clear ylate 00:00: Jones [address] [place] [address] Medications This patient has no known medications. Procedures This patient has no known procedures. Encounters Start End Encounter Admission Attending Care Care Encounter Source Date/Time Date/Time Type Type Clinicians Facility Department ID 2020-04-27 2020-04-27 Emergency Levi MIJAYE [id number] 11:25:00 18:21:00 Ann Leon 350.1.13.10 [place] 4.2.7.2.686 [place] [address] [id number] 2020-02-07 2020-02-08 Emergency Angelo Robles [facility] 1.2.840. 114 [id number] 14:46:00 14:26:00 ShayyNaun jerry Edward 350.1.13.10 [place] 4.2.7.2.686 [place] [address] [id number] 2020-01-24 2020-01-24 [facility] [id number] 17:12:00 21:15:00 Nohelia Dewitt Edward 350.1.13.10 [place] 4.2.7.2.686 [place] [address] [id number] 2020-01-24 2020-01-24 Orders Doctor LUÍS [id number] 00:00:00 00:00:00 Only Unassigned, SHARON 350.1.13.[address] [facility] 4.2.7.2.686 [id number] 2019-06-02 2019-06-02 [facility] [id number] 11:18:34 14:43:00 Candido Leon 350.1.13.10 [place] 4.2.7.2.686 [place] [address] [id number] Results Test Description Test Time Test Comments Results Result Comments Source - XR CHEST 1 V 2019-02-22 Name: VIC JAMES 19:54:00 [facility] : 1980 Age/S: 38 / F [address] Unit #: [id number] Loc: [place] [address] Phys: Génesis King MD Acct: [id number] Dis Date: Status: ADM IN PHONE #: [phone] Exam Date: 02/22/20191940 FAX #: Reason: SOB EXAMS: CPT: [id number] XR CHEST 1 V 61814 Fluoro Time: DAP (Gy m2): Air Kerma [...] PAGE 1 Signed Report Name: VIC JAMES [facility] : 1980 Age/S: 38 / F [address] Unit #: [id number] Loc: [place] [address] Phys: Génesis King MD Acct: [id number] Dis Date: Status: ADM IN PHONE #: [phone] Exam Date: 02/22/2019 194 FAX #: Reason: SOB EXAMS: CPT: [id number] XR CHEST 1 V 10979 Fluoro Time: DAP (Gy m2): Air Kerma (mGy): <Continued> Technologist: Jordan Chacon, RT(R)(CT) Trnscb Date/Time: 02/22/2019 (1953) tHOMER Orig Print D/T: S: 02/22/2019 (1956) PAGE 2 Signed Report - US RETRO LTD 2019-02-22 Name: 15:32:00 VIC JAMES [facility] : 1980 Age/S: 38 / F [address] Unit #: [id number] Loc: [place] [address] Phys: Génesis King MD Acct: [id number] Dis Date: Status: ADM IN PHONE #: [phone] Exam Date: 02/22/2019 1200 FAX #: Reason: back pain EXAMS: CPT: [id number] [place] [facility] [facility] [address] EXAMINATION: - [facility]. LOCATION: T18. [...] MD; Génesis King MD Technologist: Nina Andrews, RT(R),MILINDMS(AB) Trnpab Date/Time: 02/22/2019 (1538) [email or web address] PAGE 1 Signed Report Name: VIC JAMES [facility] : 1980 Age/S: 38 / F [address] Unit #: [id number] Loc: [place] [address] Phys: Génesis King MD Acct: [id number] Dis Date: Status: ADM IN PHONE #: [phone] Exam Date: 02/22/2019 1200 FAX #: Reason: back pain EXAMS: CPT: [id number] [facility] [address] <Continued> Orig Print D/T: S: 02/22/2019 (5225) Probe: PAGE 2 Signed Report CBC W/AUTO [...] WITH = MDIFF) AUTO DIFFERENTI AL. RBC [id number] 12:09:00 Test Item Value Reference Range Interpretation Comments ANISOCYTOSIS (test code = 1+ NONE ANISO) MICROCYTOSIS (test code = 1+ ON SCAN NONE MICR) PLATELET ESTIMATE (test ADEQUATE THOUSAND ADEQUATE code = PLTEST) PLATELET MORPHOLOGY (test NORMAL code = PLTMORPH) CBC W/AUTO [id number] 12:08:00 Test Item Value Reference Range Interpretation [...] = NO DIFF/SCN CRITERIA MDIFF) CBC W/AUTO [id number] 12:08:00 Test Item Value Reference Range Interpretation [...] code = NO DIFF/SCN CRITERIA MDIFF) RBC [id number] 12:08:00 Test Item Value Reference Range Interpretation Comments ANISOCYTOSIS (test code = 1+ NONE ANISO) MICROCYTOSIS (test code = 1+ ON SCAN NONE MICR) PLATELET ESTIMATE (test ADEQUATE THOUSAND ADEQUATE code = PLTEST) PLATELET MORPHOLOGY (test NORMAL code = PLTMORPH) CBC W/AUTO [id number] 12:08:00 Test Item Value Reference Range Interpretation [...] = NO DIFF/SCN CRITERIA MDIFF) BASIC METABOLIC [id number] 07:07:00 Test Item Value Reference Range Interpretation [...] CA) 7.8 MG/DL 8.5-10.1 L CBC W/AUTO [id number] 06:58:00 Test Item Value Reference Range Interpretation [...] ng/mL are obtained. - CT ABD PELVIS [id number] 20:34:00 Name: VIC JAMES : 1980 Age/S: 38 / F [address] Unit #: [id number] Loc: [place] [address] Phys: Cony Partida MD Acct: [id number] Dis Date: Status: ADM IN PHONE #: [phone] Exam Date: 02/19/20192024 FAX #: Reason: acute PN, possible ureteral stone EXAMS: CPT: [id number] CT ABD PELVIS W/CONT 82462 CT Abdomen and Pelvis with contrast. Location: H9 Clinical indication: 38-year-old with pyelonephritis and possible [...] 1 Signed ReportUA RFLX MICR CULT IF [id number] 19:43:00 Test Item Value Reference Range Interpretation [...] culture: Flank PainUA RFLX MICR CULT IF [id number] 19:28:00 Test Item Value Reference Range Interpretation [...] - 50,000 2ND & 3RD TRIMESTER LACTIC [id number] 18:52:00 Test Item Value Reference Range Interpretation Comments LACTIC ACID (test code = LACT) 0.7 mmol/L 0.4-2.0 N CBC W/AUTO [id number] 17:55:00 Test Item Value Reference Range Interpretation [...] MDIFF) CONSISTA NT WITH AUTO DIFFERENTIAL. RBC [id number] 17:55:00 Test Item Value Reference Range Interpretation Comments ANISOCYTOSIS (test code = ANISO) 1+ NONE CBC W/AUTO [id number] 17:54:00 Test Item Value Reference Range Interpretation [...] CONSISTA NT WITH AUTO DIFFERENTIAL. CBC W/AUTO [id number] 17:54:00 Test Item Value Reference Range Interpretation [...] CONSISTA NT WITH AUTO DIFFERENTIAL. BASIC METABOLIC [id number] 17:43:00 Test Item Value Reference Range Interpretation [...] Unit/L 84-246 N code = LDH) LACTIC [id number] 17:43:00 Test Item Value Reference Range Interpretation Comments LACTIC ACID (test code = LACT) 0.8 mmol/L 0.4-2.0 N BASIC METABOLIC [id number] 17:36:00 Test Item Value Reference Range Interpretation [...] code Unit/L 84-246 = LDH) CBC W/AUTO [id number] 17:35:00 Test Item Value Reference Range Interpretation [...]
--- NOTE | 2020-05-15 16:14 | RAD REPORT ---
EXAM DESCRIPTION: RAD - Foot Right 3 View - 05/15/2020 3:36 pm CLINICAL HISTORY: Swelling;Pain COMPARISON: No comparisons FINDINGS: No fracture, dislocation or periosteal reaction. Patient has early valgus angulation and b union formation at the first MTP joint. No narrowing of the first MTP joint space. No air or foreign body in the soft tissues. IMPRESSION: No fracture or other acute right foot finding. Early valgus angulation/bunion deformity at the first MTP joint.
--- NOTE | 2020-05-15 16:23 | EDPHYS ---
Physician Documentation [facility] Name: Yohana Reeves Age: 39 yrs Sex: Female : 1980 Arrival Date: 05/15/2020 Time: 12:02 Bed 10 Private MD: ED Physician Mayra Panchal HPI: 05/15 18:08 This 39 yrs old Female presents to ER via Wheelchair with complaints of Fall kb Injury. 18:08 Details of fall: The patient fell from an upright position, while standing. Onset: The kb symptoms/episode began/occurred today. Associated injuries: The patient sustained injury to the low back, pain, pain with movement, tenderness, dorsum of right foot. Severity of symptoms: At their worst the symptoms were moderate, in the emergency department the symptoms are unchanged. The patient has not experienced similar symptoms in the past. The patient has not recently seen a physician. Pt reports she rolled her ankle while walking causing her to fall. Reports foot pain and low back pain. States the low back pain is chronic, but the fall made the pain worse. 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 - Social history:: Smoking status: Patient/guardian denies using tobacco, Stopped _ months ago 1. ROS: 17:59 Constitutional: Negative for fever, chills, and weight loss, Cardiovascular: Negative kb for chest pain, palpitations, and edema, Respiratory: Negative for shortness of breath, cough, wheezing, and pleuritic chest pain, Abdomen/GI: Negative for abdominal pain, nausea, vomiting, diarrhea, and constipation, Skin: Negative for injury, rash, and discoloration, Neuro: Negative for headache, weakness, numbness, tingling, and seizure. 17:59 Back: Positive for pain at rest, pain with movement, of the low back area. 17:59 MS/extremity: Positive for pain, swelling, tenderness, of the right ankle. Exam: 18:00 Constitutional: This is a well developed, well nourished patient who is awake, alert, kb and in no acute distress. Head/Face: Normocephalic, atraumatic. Chest/axilla: Normal chest wall appearance and motion. Nontender with no deformity. No lesions are appreciated. Cardiovascular: Regular rate and rhythm with a normal S1 and S2. No gallops, murmurs, or rubs. Normal PMI, no JVD. No pulse deficits. Respiratory: Lungs have equal breath sounds bilaterally, clear to auscultation and percussion. No rales, rhonchi or wheezes noted. No increased work of breathing, no retractions or nasal flaring. Abdomen/GI: Soft, non-tender, with normal bowel sounds. No distension or tympany. No guarding or rebound. No evidence of tenderness throughout. Skin: Warm, dry with normal turgor. Normal color with no rashes, no lesions, and no evidence of cellulitis. Neuro: Awake and alert, GCS 15, oriented to person, place, time, and situation. Cranial nerves II-XII grossly intact. Motor strength 5/5 in all extremities. Sensory grossly intact. Cerebellar exam normal. Normal gait. 18:00 Back: pain, that is moderate, of the low back area, ROM is normal, normal spinal alignment noted. 18:00 Musculoskeletal/extremity: Extremities: grossly normal except: noted in the dorsum of right foot: pain, swelling, tenderness, ROM: limited active range of motion due to pain, Circulation is intact in all extremities. Sensation intact. Weight bearing: able to fully bear weight. Vital Signs: 13:04 BP 107 / 95; Pulse 90; Resp 16; Temp 98.7; Pulse Ox 99% on R/A; Weight 77.11 kg; Height iw 5 ft. 2 in. (157.48 cm); Pain 9/10; 16:42 BP 111 / 86; Pulse 89; Resp 16 S; Pulse Ox 98% on R/A; ca1 13:04 Body Mass Index 31.09 (77.11 kg, 157.48 cm) iw MDM: 14:51 Patient medically screened. kb 16:21 Data reviewed: vital signs, nurses notes. Data interpreted: Pulse oximetry: on room air kb is 99 %. Interpretation: normal. Counseling: I had a detailed discussion with the patient and/or guardian regarding: the historical points, exam findings, and any diagnostic results supporting the discharge/admit diagnosis, radiology results, the need for outpatient follow up, a family practitioner, to return to the emergency department if symptoms worsen or persist or if there are any questions or concerns that arise at home. 05/15 13:37 Order name: Foot Right 3 View XRAY; Complete Time: 16:15 iw 05/15 16:22 Order name: Maciej Wrap; Complete Time: 16:41 kb Administered Medications: 16:08 Drug: [place] (7.5 mg-325 mg) 1 tabs Route: PO; aa5 16:41 Follow up: Response: No adverse reaction; Pain is decreased; RASS: Alert and Calm (0) ca1 Disposition: 18:23 Co-signature as Attending Physician, Mayra Panchal MD. ma2 Disposition: 05/15/20 16:22 Discharged to Home. Impression: Sprain of foot, Low back pain. - Condition is Stable. - Discharge Instructions: Foot Sprain, Musculoskeletal Pain. - Prescriptions for Cyclobenzaprine 10 mg Oral Tablet - take 1 tablet by ORAL route every 8 hours As needed; 21 tablet. Diclofenac Sodium 75 mg Oral Tablet, Delayed Release (E.C.) - take 1 tablet by ORAL route 2 times per day As needed; 30 tablet. - Medication Reconciliation Form, Thank You Letter, Antibiotic Education, Prescription Opioid Use form. - Follow up: Emergency Department; When: As needed; Reason: Worsening of condition. Follow up: Private Physician; When: 2 - 3 days; Reason: Recheck today's complaints, Continuance of care, Re-evaluation by your physician. Signatures: Dispatcher [employer] Dorothy Espinosa FNP-C FNP-[place] RN RN Tianna Espino RN RN aa5 Mayra Panchal MD MD ma2 Lay Montana RN RN ca1 Corrections: (The following items were deleted from the chart) 16:43 16:22 05/15/2020 16:22 Discharged to Home. Impression: Sprain of foot; Low back pain. ca1 Condition is Stable. Forms are Medication Reconciliation Form, Thank You Letter, Antibiotic Education, Prescription Opioid Use. Follow up: Emergency Department; When: As needed; Reason: Worsening of condition. Follow up: Private Physician; When: 2 - 3 days; Reason: Recheck today's complaints, Continuance of care, Re-evaluation by your physician. kb
--- NOTE | 2020-05-15 16:23 | ER ---
Nurse's Notes [facility] Name: Yohana Reeves Age: 39 yrs Sex: Female : 1980 Arrival Date: 05/15/2020 Time: 12:02 Bed 10 Private MD: Diagnosis: Sprain of foot;Low back pain Presentation: 05/15 13:03 Chief complaint: Patient states: tripped over her feet at home and now her back and iw right foot are hurting, landed on her back, did not hit head. 13:03 Acuity: NICOLASA 4 iw 13:03 Method Of Arrival: Wheelchair iw 13:04 Coronavirus screen: At this time, the client does not indicate any symptoms associated iw with coronavirus-19. Ebola Screen: Patient negative for fever greater than or equal to 101.5 degrees Fahrenheit, and additional compatible Ebola Virus Disease symptoms Patient denies exposure to infectious person. Patient denies travel to an Ebola-affected area in the 21 days before illness onset. No symptoms or risks identified at this time. Initial Sepsis Screen: Does the patient meet any 2 criteria? No. Patient's initial sepsis screen is negative. Does the patient have a suspected source of infection? No. Patient's initial sepsis screen is negative. Risk Assessment: Do you want to hurt yourself or someone else? Patient reports no desire to harm self or others. Onset of symptoms was May 15, 2020. 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 - Social history:: Smoking status: Patient/guardian denies using tobacco, Stopped _ months ago 1. Screenin:50 Abuse screen: Denies threats or abuse. Nutritional screening: No deficits noted. aa5 Tuberculosis screening: No symptoms or risk factors identified. Fall Risk None identified. Assessment: 14:50 General: Appears comfortable, Behavior is calm, cooperative. Pain: Complains of pain in aa5 right foot and back. Neuro: Level of Consciousness is awake, alert, obeys commands, Oriented to person, place, time, situation. Cardiovascular: Patient's skin is warm and dry. Respiratory: Airway is patent Respiratory effort is even, unlabored, Respiratory pattern is regular, symmetrical. GI: No signs and/or symptoms were reported involving the gastrointestinal system. : No signs and/or symptoms were reported regarding the genitourinary system. EENT: No signs and/or symptoms were reported regarding the EENT system. Derm: Skin is pink, warm \T\ dry. Musculoskeletal: Range of motion: intact in all extremities. 16:08 Reassessment: Patient is alert, oriented x 3, equal unlabored respirations, skin aa5 warm/dry/pink. Awaiting x-ray results. . 16:42 Reassessment: Patient appears in no apparent distress at this time. Patient is alert, ca1 oriented x 3, equal unlabored respirations, skin warm/dry/pink. Vital Signs: 13:04 BP 107 / 95; Pulse 90; Resp 16; Temp 98.7; Pulse Ox 99% on R/A; Weight 77.11 kg; Height iw 5 ft. 2 in. (157.48 cm); Pain 9/10; 16:42 BP 111 / 86; Pulse 89; Resp 16 S; Pulse Ox 98% on R/A; ca1 13:04 Body Mass Index 31.09 (77.11 kg, 157.48 cm) iw ED Course: 12:02 Patient arrived in ED. ds1 13:04 Triage completed. iw 14:50 Patient has correct armband on for positive identification. aa5 14:51 Dorothy Cedeño FNP-C is PHCP. kb 14:51 Mayra Panchal MD is Attending Physician. kb 15:06 Tianna Henry, FÁTIMA is Primary Nurse. aa5 15:36 Foot Right 3 View XRAY In Process Unspecified. EDMS 16:42 Patient did not have IV access during this emergency room visit. Maciej wrap to right ca1 ankle. 16:42 No provider procedures requiring assistance completed. ca1 Administered Medications: 16:08 Drug: [place] (7.5 mg-325 mg) 1 tabs Route: PO; aa5 16:41 Follow up: Response: No adverse reaction; Pain is decreased; RASS: Alert and Calm (0) ca1 Outcome: 16:22 Discharge ordered by MD. lynn 16:42 Discharged to home via wheelchair, with significant other. ca1 16:42 Condition: stable 16:42 Discharge instructions given to patient. 16:42 Discharge instructions given to patient, Instructed on discharge instructions, follow up and referral plans. medication usage, Demonstrated understanding of instructions, follow-up care, medications, Prescriptions given X 2. 16:43 Patient left the ED. ca1 Signatures: Dispatcher [employer] EDMS Dorothy Cedeño, LOOM TUNER-C LOOM TUNER-Laura Wadsworth ds1 Rose Sims, RN Tianna Holland RN RN aa5 Lay Montana RN RN ca1
[2020-05-15] MEDS ORDERED: HYDROCODONE/APAP 7.5/325 MG TAB ONE (16:24)
[2020-05-15 17:03] VITALS: BP 111/86; O2SAT 98
[2020-05-15 17:04] VITALS: TEMP 98.7
== END 2020-05-15 16:43 | disposition home or self-care (01) ==
LOC: ER 11:56
DX: S93.601A Unspecified sprain of right foot, initial encounter (principal); M54.5 Low back pain; Z87.891 Personal history of nicotine dependence; G89.29 Other chronic pain; W19.XXXA Unspecified fall, initial encounter
CPT/HCPCS: 99284

== ENCOUNTER 2020-07-26 16:01 | Emergency (ER) | payer OTHER ==
--- OUTSIDE RECORDS SUMMARY | 2020-07-26 16:04 | XMS REPORT | Continuity of Care Document ---
:1980 Author Organization [facility] t Address [address] [place] [place] [address] Care Team Providers Name Role Phone Vikas LASSITER Attending Clinician Edis Sims DO Attending Clinician Travis MALDONADO [...] Type Date Date Clinician ally [place]AR[place] Active [place] [facility] subsalic 7-29 Clear ylate 00:00: Jones 00 [facility] Medications This patient has no known medications. Procedures This patient has no known procedures. Encounters Start End Encounter Admission Attending Care Care Encounter Source Date/Time Date/Time Type Type Clinicians Facility Department ID 2020-07-23 2020-07-23 Emergency Bean, [facility] [id number] 11:40:00 15:16:00 Alice Edward 350.1.13.10 [place] 4.2.7.2.686 [place] [address] [id number] 2020-04-27 2020-04-27 Emergency Levi, [facility] [id number] 11:25:00 18:21:00 Ann Randhawa Edward 350.1.13.10 [place] 4.2.7.2.686 [place] [address] [id number] 2020-02-07 2020-02-08 Emergency Angelo Robles [facility] 1.2.840. 114 [id number] 14:46:00 14:26:00 Naun Bush 350.1.13.10 [place] 4.2.7.2.686 [place] [address] [id number] 2020-01-24 2020-01-24 Emergency Bubba [facility] [id number] 17:12:00 21:15:00 Nohelia Leon 350.1.13.10 [place] 4.2.7.2.686 [place] [address] [id number] 2020-01-24 2020-01-24 Orders Doctor LUÍS [id number] 00:00:00 00:00:00 Only Unassigned, SHARON 350.1.13.10 [facility] .2.7.2.686 [id number] 2019-06-02 2019-06-02 Emergency Chris [facility] 1.2.840.114 [id number] 11:18:34 14:43:00 Candido Leon 350.1.13.10 [place] 4.2.7.2.686 [place] [address] [id number] Results Test Description Test Time Test Comments Results Result Comments Source - XR CHEST 1 V 2019-02-22 Name: [facility]CI JAMES 19:54:[address] [facility] : 1980 Age/S: 38 / F [id number] Unit #: [id number] Loc: [place] [address] Phys: Génesis King MD Acct: [id number] Dis Date: Status: ADM IN PHONE #: [phone] Exam Date: 02/22/20191940 FAX #: Reason: SOB EXAMS: CPT: [id number] XR CHEST 1 V 88518 Fluoro Time: DAP (Gy m2): Air Kerma (mGy): DICTATION LOCATION: H48 HISTORY: Female, 38 years of age with [...] PAGE 1 Signed Report [facility] [place] : 1980 Age/S: 38 / F [address] Unit #: [id number] Loc: [place] [address] Phys: Génesis King MD Acct: [id number] Dis Date: Status: ADM IN PHONE #: [phone] Exam Date: 02/22/20191940 FAX #: Reason: SOB EXAMS: CPT: [id number] XR CHEST 1 V 27973 Fluoro Time: DAP (Gy m2): Air Kerma (mGy): <Continued> Technologist: Jordan Chacon, RT(R)(CT) Trnscb Date/Time: 02/22/2019 (1953) DarionW Orig Print D/T: S: 02/22/2019 (1956) PAGE 2 Signed Report - [facility] 2019-02-22 Name: 15:32:00 VIC JAMES [place] : 1980 Age/S: 38 / F [address] Unit #: [id number] Loc: [place] [address] Phys: Génesis King MD Acct: [id number] Dis Date: Status: ADM IN PHONE #: [phone] Exam Date: 02/22/2019 1200 FAX #: Reason: back pain EXAMS: CPT: [id number] US RETRO LTD [address] EXAMINATION: - US RETRO LTD. LOCATION: T18. [...] Nina Andrews, RT(R),RDMS(AB) Trnscb Date/Time: 02/22/2019 (1532) BarbieANS4 PAGE 1 Signed Report Name: VIC JAMES [facility] : 1980 Age/S: 38 / F [address] [address] Unit #: [id number] Loc: [place] [address] Phys: Génesis King MD Acct: [id number] Dis Date: Status: ADM IN PHONE #: [phone] Exam Date: 02/22/2019 1200 FAX #: Reason: back pain EXAMS: CPT: [id number] US RETRO LTD [address] <Continued> Orig Print D/T: S: 02/22/2019 (1535) [...] WITH = MDIFF) AUTO DIFFERENTI AL. RBC [id number] 12:09:00 Test Item Value Reference Range Interpretation Comments ANISOCYTOSIS (test code = 1+ NONE ANISO) MICROCYTOSIS (test code = 1+ ON SCAN NONE MICR) PLATELET ESTIMATE (test ADEQUATE THOUSAND ADEQUATE code = PLTEST) PLATELET MORPHOLOGY (test NORMAL code = PLTMORPH) CBC W/AUTO [id number] 12:08:00 Test Item Value Reference Range Interpretation [...] = NO DIFF/SCN CRITERIA MDIFF) CBC W/AUTO [id number] 12:08:00 Test Item Value Reference Range Interpretation [...] code = NO DIFF/SCN CRITERIA MDIFF) RBC [id number] 12:08:00 Test Item Value Reference Range Interpretation Comments ANISOCYTOSIS (test code = 1+ NONE ANISO) MICROCYTOSIS (test code = 1+ ON SCAN NONE MICR) PLATELET ESTIMATE (test ADEQUATE THOUSAND ADEQUATE code = PLTEST) PLATELET MORPHOLOGY (test NORMAL code = PLTMORPH) CBC W/AUTO [id number] 12:08:00 Test Item Value Reference Range Interpretation [...] = NO DIFF/SCN CRITERIA MDIFF) BASIC METABOLIC [id number] 07:07:00 Test Item Value Reference Range Interpretation [...] CA) 7.8 MG/DL 8.5-10.1 L CBC W/AUTO [id number] 06:58:00 Test Item Value Reference Range Interpretation [...] ng/mL are obtained. - CT ABD PELVIS [id number] 20:34:00 Name: VIC JAMES [place] : 1980 Age/S: 38 / F [address] Unit #: [id number] Loc: [place] [address] Phys: Cony Partida MD Acct: [id number] Dis Date: Status: ADM IN PHONE #: [phone] Exam Date: 02/19/20192024 FAX #: Reason: acute PN, possible ureteral stone EXAMS: CPT: [id number] CT ABD PELVIS W/CONT [address] CT Abdomen and Pelvis with contrast. Location: [...] Jordan Jean MD; Cony Partida MD Technologist:Celia Cedeño RT(R)(CT) CTDI: DLP: Trnscb Date/Time: 02/19/2019 (2033) [email or web address] Orig Print D/T: S: 02/19/2019 (2036) PAGE 1 Signed ReportUA RFLX MICR CULT IF [id number] 19:43:00 Test Item Value Reference Range Interpretation [...] culture: Flank PainUA RFLX MICR CULT IF [id number] 19:28:00 Test Item Value Reference Range Interpretation [...] - 50,000 2ND & 3RD TRIMESTER LACTIC [id number] 18:52:00 Test Item Value Reference Range Interpretation Comments LACTIC ACID (test code = LACT) 0.7 mmol/L 0.4-2.0 N CBC W/AUTO [id number] 17:55:00 Test Item Value Reference Range Interpretation [...] MDIFF) CONSISTA NT WITH AUTO DIFFERENTIAL. RBC [id number] 17:55:00 Test Item Value Reference Range Interpretation Comments ANISOCYTOSIS (test code = ANISO) 1+ NONE CBC W/AUTO [id number] 17:54:00 Test Item Value Reference Range Interpretation [...] CONSISTA NT WITH AUTO DIFFERENTIAL. CBC W/AUTO [id number] 17:54:00 Test Item Value Reference Range Interpretation [...] CONSISTA NT WITH AUTO DIFFERENTIAL. BASIC METABOLIC [id number] 17:43:00 Test Item Value Reference Range Interpretation [...] Unit/L 84-246 N code = LDH) LACTIC [id number] 17:43:00 Test Item Value Reference Range Interpretation Comments LACTIC ACID (test code = LACT) 0.8 mmol/L 0.4-2.0 N BASIC METABOLIC [id number] 17:36:00 Test Item Value Reference Range Interpretation [...] code Unit/L 84-246 = LDH) CBC W/AUTO [id number] 17:35:00 Test Item Value Reference Range Interpretation [...]
[2020-07-26] MEDS ORDERED: MORPHINE 4 MG/ML SYR ONE (20:24)
[2020-07-26] MEDS ORDERED: ONDANSETRON 4 MG/2 ML VIAL ONE ×2 (20:24→21:42)
[2020-07-26] MEDS ORDERED: NA CHLORIDE 0.9% 1,000 ML ONE (20:40)
[2020-07-26 20:47] LABS: Absolute Lymphocytes (CBC) 3.6 K/uL (0.7-4.9); Basophils % 0.5 % (0-1.3); Hematocrit 44.5 % (36.0-45.0); Lymphocytes % 27.8 % (15.3-44.8); MPV 10.3 fL (7.6-11.3); RBC Red Blood Cell Count 5.07 M/uL (3.86-4.86)
[2020-07-26 20:52] LABS: Urine Blood Negative (Negative); Urine Glucose Negative (Negative); Urine Protein Negative (Negative); Urine pH 6.5 (5.0-7.0)
[2020-07-26 21:05] LABS: ALT/SGPT 19 U/L (12-78); AST/SGOT 7 U/L (15-37); Albumin 4.1 g/dL (3.4-5.0); BUN Blood Urea Nitrogen 10 mg/dL (7-18); Bicarbonate 28 mmol/L (21-32); Bilirubin Direct < 0.1 mg/dL (0-0.2); Bilirubin Total 0.2 mg/dL (0.2-1.0); Glucose Level 97 mg/dL (74-106); Lipase 173 U/L (73-393); Potassium 3.7 mmol/L (3.5-5.1); Protein, Total 8.2 g/dL (6.4-8.2); Sodium Level 141 mmol/L (136-145)
[2020-07-26 21:18] LABS: Alkaline Phosphatase 139 U/L (45-117)
[2020-07-26] MEDS ORDERED: METOCLOPRAMIDE 10 MG/2mL INJ ONE (21:48)
[2020-07-26] MEDS ORDERED: LORazepam 2 MG/ML VIAL ONE (21:48)
--- NOTE | 2020-07-26 23:44 | EDPHYS ---
Physician Documentation [facility] Name: Yohana Reeves Age: 39 yrs Sex: Female : 1980 Arrival Date: 07/26/2020 Time: 16:04 Bed 27 Private MD: ED Physician Blade Haas HPI: 07/26 19:44 This 39 yrs old Female presents to ER via Ambulatory with complaints of jmm Abdominal Pain, Vomiting. 19:44 The patient presents with abdominal pain. Onset: The symptoms/episode began/occurred jmm gradually, 4 day(s) ago. The symptoms do not radiate. Associated signs and symptoms: Pertinent positives: vomiting, Pertinent negatives: diarrhea, fever. The symptoms are described as achy, sharp. Modifying factors: The symptoms are alleviated by nothing, the symptoms are aggravated by nothing. This is a 39 year old female with a history of chronic back pain that presents to the ED with complaints of lower abdominal pain beginning this past Thursday. Denies fever. Patient states she has had multiple episodes of vomiting. Denies diarrhea. Was evaluated at [place] ED and discharged with normal CT. Patient states the symptoms have worsened since. . 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 - Social history:: Smoking status: Patient reports the use of cigarette tobacco products, smokes one-half pack cigarettes per day. ROS: 19:44 Constitutional: Negative for fever, chills, and weight loss, Cardiovascular: Negative jmm for chest pain, palpitations, and edema, Respiratory: Negative for shortness of breath, cough, wheezing, and pleuritic chest pain. 19:44 Abdomen/GI: Positive for abdominal pain. 19:44 All other systems are negative. Exam: 19:44 Constitutional: This is a well developed, well nourished patient who is awake, alert, jmm and in no acute distress. Head/Face: atraumatic. Eyes: EOMI, no conjunctival erythema appreciated ENT: Moist Mucus Membranes Neck: Trachea midline, Supple Chest/axilla: Normal chest wall appearance and motion. Cardiovascular: Regular rate and rhythm. No edema appreciated Respiratory: Normal respirations, no respiratory distress appreciated 19:44 Back: Normal ROM Skin: General appearance color normal MS/ Extremity: Moves all extremities, no obvious deformities appreciated, no edema noted to the lower extremities Neuro: Awake and alert, normal gait Psych: Behavior is normal, Mood is normal, Patient is cooperative and pleasant 19:44 Abdomen/GI: Inspection: abdomen appears normal, Bowel sounds: normal, Palpation: soft, mild abdominal tenderness, in the right lower quadrant. Vital Signs: 16:27 BP 103 / 77; Pulse 105; Resp 17; Temp 98.5; Pulse Ox 98% ; Weight 81.65 kg; Height 5 ll1 ft. 2 in. (157.48 cm); Pain 9/10; 20:27 BP 143 / 100; Pulse 72; Resp 16 S; Pulse Ox 100% on R/A; bb 21:34 BP 135 / 86; Pulse 63; Resp 18 S; Pulse Ox 99% on R/A; bb 22:30 BP 126 / 85; Pulse 76; Resp 17; Pulse Ox 98% ; rr5 23:50 BP 117 / 89; Pulse 69; Resp 16; Pulse Ox 98% ; rr5 16:27 Body Mass Index 32.92 (81.65 kg, 157.48 cm) ll1 MDM: 19:44 Patient medically screened. donnie 23:42 Data reviewed: vital signs, nurses notes. Counseling: I had a detailed discussion with shashi the patient and/or guardian regarding: the historical points, exam findings, and any diagnostic results supporting the discharge/admit diagnosis, lab results, radiology results, the need for outpatient follow up, to return to the emergency department if symptoms worsen or persist or if there are any questions or concerns that arise at home. ED course: Patient advised to follow up with gi for further evaluation. patient is otherwise given strict return precautions. Patient understood and agrees with the plan of care. . 07/26 19:46 Order name: Basic Metabolic Panel; Complete Time: 21:22 [facility] 07/26 19:46 Order name: CBC with Diff; Complete Time: 21:02 [facility] 07/26 19:46 Order name: Hepatic Function; Complete Time: 21:22 [facility] 07/26 19:46 Order name: Lipase; Complete Time: 21: [facility] 07/26 20:52 Order name: Urine Dipstick-Ancillary; Complete Time: 21:02 [facility] 07/26 20:57 Order name: Urine --Ancillary (enter results); Complete Time: 21:37 [facility] 07/26 19:46 Order name: CT Abd/Pelvis - IV Contrast Only [facility] 07/26 22:47 Order name: US Pelvis Complete [facility] 07/26 19:46 Order name: IV Saline Lock; Complete Time: 20:24 [facility] 07/26 19:46 Order name: Labs collected and sent; Complete Time: 20:24 [facility] 07/26 19:46 Order name: Urine Dipstick-Ancillary (obtain specimen); Complete Time: 20:45 [facility] 07/26 19:46 Order name: Urine Test (obtain specimen); Complete Time: 20:45 [facility] Administered Medications: 20:15 Drug: Zofran (Ondansetron) 4 mg Route: IVP; Site: right antecubital; bb 21:12 Follow up: Response: No adverse reaction bb 20:17 Drug: morphine 4 mg Route: IVP; Site: right antecubital; bb 21:11 Follow up: Response: No adverse reaction; Pain is decreased; RASS: Alert and Calm (0) bb 20:25 Drug: NS 0.9% 1000 ml Route: IV; Rate: 1 bolus; Site: right antecubital; bb 21:25 Drug: Zofran (Ondansetron) 4 mg Route: IVP; Site: right antecubital; rr5 22:20 Follow up: Response: No adverse reaction rr5 21:34 Drug: Ativan (LORazepam) 1 mg Route: IVP; Site: right antecubital; rr5 22:30 Follow up: Response: No adverse reaction rr5 21:35 Drug: Reglan (metoCLOPramide) 10 mg Route: IVP; Site: right antecubital; rr5 22:30 Follow up: Response: No adverse reaction rr5 23:33 Drug: TORadol (ketorolac) 30 mg Route: IVP; Site: right antecubital; rr5 23:50 Follow up: Response: No adverse reaction; Medication administered at discharge. rr5 Disposition: 07/27 04:48 Co-signature as Attending Physician, Blade Haas MD. rn Disposition: 07/26/20 23:44 Discharged to Home. Impression: Lower abdominal pain, unspecified, Constipation, unspecified. - Condition is Stable. - Discharge Instructions: Abdominal Pain, Adult, Constipation, Adult. - Medication Reconciliation Form, Thank You Letter, Antibiotic Education, Prescription Opioid Use form. - Follow up: Yazan De La Cruz MD; When: 2 - 3 days; Reason: Recheck today's complaints, Continuance of care, Re-evaluation by your physician. Signatures: Dispatcher [employer] EDMS Lance Smart PA PA jmm Ballard, Brenda RN RN Blade Taylor MD MD rn Roque, Raymond, RN RN rr5 Francisca Miller RN RN ll1 Corrections: (The following items were deleted from the chart) 07/26 23:52 23:44 07/26/2020 23:44 Discharged to Home. Impression: Lower abdominal pain, rr5 unspecified; Constipation, unspecified. Condition is Stable. Forms are Medication Reconciliation Form, Thank You Letter, Antibiotic Education, Prescription Opioid Use. Follow up: Yazan De La Cruz; When: 2 - 3 days; Reason: Recheck today's complaints, Continuance of care, Re-evaluation by your physician. shashi
--- NOTE | 2020-07-26 23:44 | ER ---
Nurse's Notes [facility] Name: Yohana Reeves Age: 39 yrs Sex: Female : 1980 Arrival Date: 07/26/2020 Time: 16:04 Bed 27 Private MD: Diagnosis: Lower abdominal pain, unspecified;Constipation, unspecified Presentation: 07/26 16:27 Chief complaint: Patient states: R mid abd pain with N/V for 5 days. Was seen at [address] Thursday, blood work, CT, and ultrasound found nothing specific. Abd pain and N/V has gotten worse so she came in for eval. again. Coronavirus screen: Client denies travel out of the [place] in the last 14 days. fever, nausea, vomiting. Client presents with at least one sign or symptom that may indicate coronavirus-19. Standard/surgical mask placed on the client. Ebola Screen: Patient denies travel to an Ebola-affected area in the 21 days before illness onset. Initial Sepsis Screen: Does the patient meet any 2 criteria? HR > 90 bpm. No. Patient's initial sepsis screen is negative. Does the patient have a suspected source of infection? Yes: Acute abdominal pain. Risk Assessment: Do you want to hurt yourself or someone else? Patient reports no desire to harm self or others. Onset of symptoms was July 21, 2020. 16:27 Method Of Arrival: Ambulatory [facility] 16:27 Acuity: NICOLASA 3 1 Historical: - Allergies: 16:30 No Known Allergies; 1 - PMHx: 16:30 GI Bleed; Kidney stones; heart attack due to trauma; [facility] - PSHx: 16:30 ; 1 - Immunization history:: Client reports receiving the 2nd dose of the Covid vaccine, Flu vaccine is up to date. - Social history:: Smoking status: Patient reports the use of cigarette tobacco products, smokes one-half pack cigarettes per day. Screenin:05 Abuse screen: Denies threats or abuse. Nutritional screening: No deficits noted. bb Tuberculosis screening: No symptoms or risk factors identified. Fall Risk None identified. Assessment: 20:05 General: Appears in no apparent distress. uncomfortable, Behavior is calm, cooperative. bb Pain: Complains of pain in abdomen. Neuro: Level of Consciousness is awake, alert, obeys commands, Oriented to person, place, time, situation. Cardiovascular: No deficits noted. Respiratory: Respiratory effort is even, unlabored, Respiratory pattern is regular. GI: Abdomen is round Bowel sounds present X 4 quads. Abd is soft X 4 quads. Derm: Skin is pink, warm \T\ dry. Musculoskeletal: Circulation, motion, and sensation intact. 21:11 Reassessment: Patient is alert, oriented x 3, equal unlabored respirations, skin bb warm/dry/pink. pt to CT scan via wheelchair accompanied by mechanical laboratory technician. 21:25 Reassessment: Patient appears in no apparent distress at this time. back from CT scan rr5 complaining of nausea and pain, ED provider aware with order made and carried out. 22:30 Reassessment: Patient appears in no apparent distress at this time. Patient is alert, rr5 oriented x 3, equal unlabored respirations, skin warm/dry/pink. provider with order for ultrasound Patient states symptoms have not improved. 23:50 Reassessment: Patient appears in no apparent distress at this time. Patient is alert, rr5 oriented x 3, equal unlabored respirations, skin warm/dry/pink. discharge instruction given and explained without complaints made. Vital Signs: 16:27 BP 103 / 77; Pulse 105; Resp 17; Temp 98.5; Pulse Ox 98% ; Weight 81.65 kg; Height 5 ll1 ft. 2 in. (157.48 cm); Pain 9/10; 20:27 BP 143 / 100; Pulse 72; Resp 16 S; Pulse Ox 100% on R/A; bb 21:34 BP 135 / 86; Pulse 63; Resp 18 S; Pulse Ox 99% on R/A; bb 22:30 BP 126 / 85; Pulse 76; Resp 17; Pulse Ox 98% ; rr5 23:50 BP 117 / 89; Pulse 69; Resp 16; Pulse Ox 98% ; rr5 16:27 Body Mass Index 32.92 (81.65 kg, 157.48 cm) 1 ED Course: 16:04 Patient arrived in ED. mr 16:29 Triage completed. 1 16:30 Arm band placed on. [facility] 19:26 Lance Smart PA is [facility] 19:26 Blade Haas MD is Attending Physician. [facility] 20:05 Patient has correct armband on for positive identification. Placed in gown. Bed in low bb position. Call light in reach. Side rails up X 1. Pulse ox on. NIBP on. Warm blanket given. 20:15 Initial lab(s) drawn, by me, sent to lab. Inserted saline lock: 20 gauge in right bb antecubital area, using aseptic technique. Blood collected. 20:24 Karmen Harding RN is Primary Nurse. bb 23:43 Yazan De La Cruz MD is Referral Physician. shashi 23:50 No provider procedures requiring assistance completed. IV discontinued, intact, rr5 bleeding controlled, No redness/swelling at site. Pressure dressing applied. 07/27 10:09 CT Abd/Pelvis - IV Contrast Only In Process Unspecified. EDMS Administered Medications: 07/26 20:15 Drug: Zofran (Ondansetron) 4 mg Route: IVP; Site: right antecubital; bb 21:12 Follow up: Response: No adverse reaction bb 20:17 Drug: morphine 4 mg Route: IVP; Site: right antecubital; bb 21:11 Follow up: Response: No adverse reaction; Pain is decreased; RASS: Alert and Calm (0) bb 20:25 Drug: NS 0.9% 1000 ml Route: IV; Rate: 1 bolus; Site: right antecubital; bb 21:25 Drug: Zofran (Ondansetron) 4 mg Route: IVP; Site: right antecubital; rr5 22:20 Follow up: Response: No adverse reaction rr5 21:34 Drug: Ativan (LORazepam) 1 mg Route: IVP; Site: right antecubital; rr5 22:30 Follow up: Response: No adverse reaction rr5 21:35 Drug: Reglan (metoCLOPramide) 10 mg Route: IVP; Site: right antecubital; rr5 22:30 Follow up: Response: No adverse reaction rr5 23:33 Drug: TORadol (ketorolac) 30 mg Route: IVP; Site: right antecubital; rr5 23:50 Follow up: Response: No adverse reaction; Medication administered at discharge. rr5 Outcome: 23:44 Discharge ordered by . shashi 23:50 Discharged to home ambulatory. rr5 23:50 Condition: stable 23:50 Discharge instructions given to patient, Instructed on discharge instructions, follow up and referral plans. Demonstrated understanding of instructions, follow-up care. 23:52 Patient left the ED. rr5 Signatures: Dispatcher [employer] EDMS Lance Smart PA PA jmm Rivera, Mary mr HardingKarmen, RN RN bb Yuriy Henning RN RN rr5 Francisca Miller RN RN ll1
[2020-07-26] MEDS ORDERED: KETOROLAC 30 MG/ML INJ ONE (23:49)
[2020-07-27] VITALS: TEMP 98.5
[2020-07-27 00:36] VITALS: BP 135/86; O2SAT 99
--- NOTE | 2020-07-27 08:27 | RAD REPORT ---
EXAM DESCRIPTION: US - Pelvis Complete - 07/26/2020 11:14 pm CLINICAL HISTORY: pelvic pain Pelvic pain. COMPARISON: TRANSVAGINAL STUDY PROBE dated 04/04/2011 FINDINGS: The uterus is normal in size, shape and echotexture. The uterus measures 8.9 x 5.2 x 3.2 c m. The endometrial stripe measures 4 mm, normal. The right ovary was obscured by bowel gas. The left ovary measures 2.2 x 1.8 x 1.4 cm. Normal blood f low is seen to the left ovary. No ovarian or parovarian lesions. No adnexal masses. No significant pelvic ascites. IMPRESSION: Unremarkable examination, except for nonvisualization of the right ovary due to bowel ga s.
--- NOTE | 2020-07-27 11:46 | RAD REPORT ---
EXAM DESCRIPTION: CT Abdomen and Pelvis With Intravenous Contrast CLINICAL HISTORY: Abdominal pain TECHNIQUE: Axial computed tomography images of the abdomen and pelvis with intravenous contrast. S agittal and coronal reformatted images were created and reviewed. This CT exam was performed using one or more of the following dose reduction techniques: automated exposure control, adjustment of t he mA and/or kV according to patient size, and/or use of iterative reconstruction technique. COMPARISON: No relevant prior studies available. FINDINGS: Limitations: None. Lung bases: No abnormality noted. Pleural space: No abnormality noted. Heart: No abnormality noted. Mediastinum: No abnormality noted. ABDOMEN: Liver: No abnormality noted. Gallbladder and bile ducts: No calcified stones or surrounding fluid. Pancreas: Homogeneous enhancement. No mass, inflammation or ductal dilation. Spleen: No abnormality noted. Adrenals: Visualized portions appear normal. Kidneys and ureters: Homogeneous enhancement. No mass, hydronephrosis or stone. Tiny stones could be obscured by contrast. Stomach and bowel: Moderate to large amount of diffuse colonic stool present with scattered diff use diverticula noted. No diverticulitis, obstruction, hemorrhage or thickening. PELVIS: Appendix: Well seen and appears normal. Bladder: No filling defects to suggest mass or large stone. No inflammation. Reproductive: No abnormalities noted. ABDOMEN and PELVIS: Intraperitoneal space: No free air. No significant fluid collection. Bones/joints: No acute change noted. Soft tissues: No abnormality noted. Vasculature: No abdominal aortic aneurysm. Lymph nodes: No pathologically enlarged lymph nodes. IMPRESSION: Moderate to large amounts of diffuse colonic stool and diverticulosis. No obstruction or inflammation. Electronically signed by: Makayla Robles MD 07/26/2020 9:58 PM CDT Due to temporary technical issues with the PACS/Fluency reporting system, reports are being signed by the in house radiologist without review as a courtesy to ensure prompt reporting. The interpreting r adiologist is fully responsible for the content of the report.
== END 2020-07-26 23:52 | disposition home or self-care (01) ==
LOC: ER 16:01
DX: K59.00 Constipation, unspecified (principal); F17.210 Nicotine dependence, cigarettes, uncomplicated
CPT/HCPCS: 85025; 80048; 36415; 81025; 80076; 81003; 83690; 74177; 76856; 96375; 96374; 99284; Q9967; J2765; J7030; J2405 ×2

== ENCOUNTER 2020-10-11 15:18 | Emergency (ER) | payer OTHER ==
--- OUTSIDE RECORDS SUMMARY | 2020-10-11 15:26 | XMS REPORT | Continuity of Care Document ---
:1980 Author Organization [facility] t Address [address] [place] [place] [address] Care Team Providers Name Role Phone Jay Pierce Attending Clinician [phone] Vikas LASSITER Attending Clinician Edis Sims DO [...] Type Date Date Clinician ally [place] Active [place] [facility] subsalic 11-08 Clear ylate 00:00: Jones 00 [facility] Medications This patient has no known medications. Procedures This patient has no known procedures. Encounters Start End Encounter Admission Attending Care Care Encounter Source Date/Time Date/Time Type Type Clinicians Facility Department ID 2020-08-24 2020-08-24 Outpatient TAYLOR Pierce [id number] 00:00:00 00:00:00 Alex [id number] Jay [id number] 2020-07-23 2020-07-23 Emergency Bean, [facility] [id number] 11:40:00 15:16:00 Alice Leon 350.1.13.10 [place] 4.2.7.2.686 [place] [id number] 2020-04-27 2020-04-27 Emergency Levi, [facility] [id number] 11:25:00 18:21:00 Ann Leon 350.1.13.10 [place] 4.2.7.2.686 [place] [id number] 2020-02-07 2020-02-08 Emergency Angelo Robles [facility] 1.2.840. 114 [id number] 14:46:00 14:26:00 Naun Bush 350.1.13.10 [place] 4.2.7.2.686 [place] [id number] 2020-01-24 2020-01-24 Emergency Bubba [facility] [id number] 17:12:00 21:15:00 Nohelia Leon [id number] [place] [id number] [place] [id number] 2020-01-24 2020-01-24 Orders Doctor LUÍS [id number] 00:00:00 00:00:00 Only Unassigned, SHARON 350.1.13.10 [place] [facility] 4.2.7.2.686 [id number] 2019-06-02 2019-06-02 Emergency Chris [facility] 1.2.840.114 [id number] 11:18:34 14:43:00 Candido Leon 350.1.13.10 [place] 4.2.7.2.686 [place] [id number] Results Test Description Test Time Test Comments Results Result Comments Source - XR CHEST 1 V 2019-02-22 Name: VIC JAMES 19:54:00 [facility] : 1980 Age/S: 38 / F [id number] [address] Unit #: [id number] Loc: [place] [address] Phys: Génesis King MD Acct: [id number] Dis Date: Status: ADM IN PHONE #: [phone] Exam Date: 02/22/20191940 FAX #: Reason: SOB EXAMS: CPT: [id number] XR CHEST 1 V 71013 Fluoro Time: DAP (Gy m2): Air Kerma [...] PAGE 1 Signed Report Name: VIC JAMES [facility] : 1980 Age/S: 38 / F [address] [address] Unit #: [id number] Loc: [place] [address] Phys: Génesis King MD Acct: [id number] Dis Date: Status: ADM IN PHONE #: [phone] Exam Date: 02/22/20191940 FAX #: Reason: SOB EXAMS: CPT: [id number] XR CHEST 1 V 22139 Fluoro Time: DAP (Gy m2): Air Kerma (mGy): <Continued> Technologist: Jordan Chacon, RT(R)(CT) Trnscb Date/Time: 02/22/2019 (1953) Talya Orig Print D/T: S: 02/22/2019 (1956) PAGE 2 Signed Report - [facility] 2019-02-22 Name: 15:32:00 VIC JAMES [place] : 1980 Age/S: 38 / F [address] [address] Unit #: [id number] Loc: [place] [address] Phys: Génesis King MD Acct: [id number] Dis Date: Status: ADM IN PHONE #: [phone] Exam Date: 02/22/2019 1200 FAX #: Reason: back pain EXAMS: CPT: [id number] US RETRO LTD 82747 EXAMINATION: - US RETRO LTD. LOCATION: T18. [...] PAGE 1 Signed Report Name: VIC JAMES : 1980 Age/S: 38 / F [address] [address] Unit #: [id number] Loc: [place] [address] Phys: Génesis King MD Acct: [id number] Dis Date: Status: ADM IN PHONE #: [phone] Exam Date: 02/22/2019 1200 FAX #: Reason: back pain EXAMS: CPT: [id number] [facility] [address] <Continued> Orig Print D/T: S: 02/22/2019 (1535) [...] WITH = MDIFF) AUTO DIFFERENTI AL. RBC [id number] 12:09:00 Test Item Value Reference Range Interpretation Comments ANISOCYTOSIS (test code = 1+ NONE ANISO) MICROCYTOSIS (test code = 1+ ON SCAN NONE MICR) PLATELET ESTIMATE (test ADEQUATE THOUSAND ADEQUATE code = PLTEST) PLATELET MORPHOLOGY (test NORMAL code = PLTMORPH) CBC W/AUTO [id number] 12:08:00 Test Item Value Reference Range Interpretation [...] = NO DIFF/SCN CRITERIA MDIFF) CBC W/AUTO [id number] 12:08:00 Test Item Value Reference Range Interpretation [...] code = NO DIFF/SCN CRITERIA MDIFF) RBC [id number] 12:08:00 Test Item Value Reference Range Interpretation Comments ANISOCYTOSIS (test code = 1+ NONE ANISO) MICROCYTOSIS (test code = 1+ ON SCAN NONE MICR) PLATELET ESTIMATE (test ADEQUATE THOUSAND ADEQUATE code = PLTEST) PLATELET MORPHOLOGY (test NORMAL code = PLTMORPH) CBC W/AUTO [id number] 12:08:00 Test Item Value Reference Range Interpretation [...] = NO DIFF/SCN CRITERIA MDIFF) BASIC METABOLIC [id number] 07:07:00 Test Item Value Reference Range Interpretation [...] CA) 7.8 MG/DL 8.5-10.1 L CBC W/AUTO [id number] 06:58:00 Test Item Value Reference Range Interpretation [...] ng/mL are obtained. - CT ABD PELVIS [id number] 20:34:00 Name: VIC JAMES [facility] : 1980 Age/S: 38 / F [address] [facility] [address] Unit #: [id number] Loc: [place] [address] Phys: Cony Partida MD Acct: [id number] Dis Date: Status: ADM IN PHONE #: [phone] Exam Date: 02/19/20192024 FAX #: Reason: acute PN, possible ureteral stone EXAMS: CPT: [id number] CT ABD PELVIS W/CONT [address] CT Abdomen and Pelvis with contrast. Location: [...] CC: Jordan Jean MD; Cony Partida MD Technologist:RT Evita(R)(CT) CTDI: DLP: Trnscb Date/Time: 02/19/2019 (2033) [id number] Orig Print D/T: S: 02/19/2019 (2036) PAGE 1 Signed ReportUA RFLX MICR CULT IF [id number] 19:43:00 Test Item Value Reference Range Interpretation [...] culture: Flank PainUA RFLX MICR CULT IF [id number] 19:28:00 Test Item Value Reference Range Interpretation [...] - 50,000 2ND & 3RD TRIMESTER LACTIC [id number] 18:52:00 Test Item Value Reference Range Interpretation Comments LACTIC ACID (test code = LACT) 0.7 mmol/L 0.4-2.0 N CBC W/AUTO [id number] 17:55:00 Test Item Value Reference Range Interpretation [...] MDIFF) CONSISTA NT WITH AUTO DIFFERENTIAL. RBC [id number] 17:55:00 Test Item Value Reference Range Interpretation Comments ANISOCYTOSIS (test code = ANISO) 1+ NONE CBC W/AUTO [id number] 17:54:00 Test Item Value Reference Range Interpretation [...] CONSISTA NT WITH AUTO DIFFERENTIAL. CBC W/AUTO [id number] 17:54:00 Test Item Value Reference Range Interpretation [...] CONSISTA NT WITH AUTO DIFFERENTIAL. BASIC METABOLIC [id number] 17:43:00 Test Item Value Reference Range Interpretation [...] Unit/L 84-246 N code = LDH) LACTIC [id number] 17:43:00 Test Item Value Reference Range Interpretation Comments LACTIC ACID (test code = LACT) 0.8 mmol/L 0.4-2.0 N BASIC METABOLIC [id number] 17:36:00 Test Item Value Reference Range Interpretation [...] code Unit/L 84-246 = LDH) CBC W/AUTO [id number] 17:35:00 Test Item Value Reference Range Interpretation [...]
--- NOTE | 2020-10-11 17:48 | RAD REPORT ---
EXAM DESCRIPTION: CT - Head Brain Wo Cont - 10/11/2020 5:26 pm CLINICAL HISTORY: PAIN COMPARISON: HEAD BRAIN W O CONTRAST dated 07/02/2015 TECHNIQUE: Axial 5 mm thick images of the head were obtained without IV contrast. All CT scans are performed using dose optimization technique as appropriate and may include automated exposure control or mA/KV adjustment according to patient size. FINDINGS: No intracranial hemorrhage, mass, edema or shift of mid-line structures. No acute infarcti on changes seen. No abnormal extra-axial fluid collections. Ventricles are normal. Mastoid air cells and visualized portions of the paranasal sinuses are clear. No acute bony findings. No significant change from comparison. IMPRESSION: Negative non-contrast CT head examination.
[2020-10-11] MEDS ORDERED: DIPHENHYDRAMINE 50 MG/ML VIAL ONE (18:26)
[2020-10-11] MEDS ORDERED: METOCLOPRAMIDE 10 MG/2mL INJ ONE ×2 (18:26→18:27)
[2020-10-11] MEDS ORDERED: NA CHLORIDE 0.9% 250 ML ONE (18:26)
[2020-10-11] MEDS ORDERED: dexAMETHasone 10 MG/ML VIAL ONE (19:15)
[2020-10-11] MEDS ORDERED: KETOROLAC 30 MG/ML INJ ONE (19:26)
[2020-10-11] MEDS ORDERED: ONDANSETRON 4 MG/2 ML VIAL ONE (19:26)
--- NOTE | 2020-10-11 20:10 | EDPHYS ---
Physician Documentation [facility] Name: Yohana Reeves Age: 40 yrs Sex: Female : 1980 Arrival Date: 10/11/2020 Time: 15:19 Bed 6 Private MD: Scott Plata HPI: 10/11 17:49 This 40 yrs old Female presents to ER via Ambulatory with complaints of jmm Headache, Nausea/Vomiting. 17:49 The patient complains of pain to the forehead, right jainism and left jainism. Onset: The jmm symptoms/episode began/occurred gradually, 3 day(s) ago. Associated signs and symptoms: Pertinent positives: vomiting. The patient has experienced similar episodes in the past. 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 - Social history:: Smoking status: Patient denies any tobacco usage or history of. ROS: 17:49 Constitutional: Negative for fever, chills, and weight loss, Cardiovascular: Negative jmm for chest pain, palpitations, and edema, Respiratory: Negative for shortness of breath, cough, wheezing, and pleuritic chest pain. 17:49 Abdomen/GI: Positive for vomiting. 17:49 Neuro: Positive for headache. 17:49 All other systems are negative. Exam: 17:49 Constitutional: This is a well developed, well nourished patient who is awake, alert, jmm and in no acute distress. Head/Face: atraumatic. Eyes: EOMI, no conjunctival erythema appreciated ENT: Moist Mucus Membranes Neck: Trachea midline, Supple Chest/axilla: Normal chest wall appearance and motion. Cardiovascular: Regular rate and rhythm. No edema appreciated Respiratory: Normal respirations, no respiratory distress appreciated Abdomen/GI: Non distended, soft Back: Normal ROM Skin: General appearance color normal MS/ Extremity: Moves all extremities, no obvious deformities appreciated, no edema noted to the lower extremities Neuro: Awake and alert, normal gait Psych: Behavior is normal, Mood is normal, Patient is cooperative and pleasant Vital Signs: 17:55 BP 122 / 95; Pulse 92; Resp 20; Pulse Ox 100% on R/A; kg 18:30 BP 125 / 83; Pulse 80; Resp 20; Pulse Ox 100% on R/A; kg 20:30 BP 120 / 78; Pulse 78; Resp 18; Pulse Ox 98% ; ea MDM: 17:49 Patient medically screened. [facility] 20:06 Data reviewed: vital signs, nurses notes. Counseling: I had a detailed discussion with shashi the patient and/or guardian regarding: the historical points, exam findings, and any diagnostic results supporting the discharge/admit diagnosis, lab results, radiology results, the need for outpatient follow up, to return to the emergency department if symptoms worsen or persist or if there are any questions or concerns that arise at home. ED course: Headache mildly relieved. Patient advised to follow up with neuro for further evaluation. Patient otherwise given strict return precautions. patient understood and agrees with the plan of care . 10/11 16:39 Order name: CT Head Brain wo Cont; Complete Time: 17:52 ph 10/11 18:00 Order name: Saline Lock; Complete Time: 18:01 [facility] Administered Medications: 18:00 Drug: diphenhydrAMINE 12.5 mg Route: IVP; Site: right antecubital; kg 18:10 Drug: Reglan (metoCLOPramide) 20 mg Route: IVP; Site: right antecubital; kg 18:55 Drug: Decadron - Dexamethasone 10 mg Route: IVP; Site: right antecubital; kg 19:10 Drug: Zofran (Ondansetron) 4 mg Route: IVP; Site: right antecubital; kg 19:10 Drug: Ketorolac 30 mg Route: IVP; Site: right antecubital; kg Disposition: 10/12 07:35 Co-signature as Attending Physician, Scott Mari MD I agree with the assessment and [facility] plan of care. Disposition Summary: 10/11/20 20:09 Discharge Ordered Location: Home [facility] Condition: Stable jm Diagnosis - Headache jmm Followup: jmm - With: Private Physician - When: 2 - 3 days - Reason: Recheck today's complaints, Continuance of care, Re-evaluation by your physician Discharge Instructions: - Discharge Summary Sheet [facility] - Migraine Headache [facility] Forms: - Medication Reconciliation Form jmm - Thank You Letter jmm - Antibiotic Education jmm - Prescription Opioid Use jm Signatures: Dispatcher [employer] Scott Vigil MD MD cha Mickail, Joel, PA PA jmm Hall, Patricia, RN RN Rosi Gonzales RN RN kg
--- NOTE | 2020-10-11 20:10 | ER ---
Nurse's Notes [facility] Name: Yohana Reeves Age: 40 yrs Sex: Female : 1980 Arrival Date: 10/11/2020 Time: 15:19 Bed 6 Private MD: Diagnosis: Headache Presentation: 10/11 15:52 Chief complaint: Patient states: Migraine x 3 days, reports pain in middle of forehead ph area, also reports nausea, sensitivity to light and sound and a short period of blurred vision. OTC meds not working, reports hx of migraines but has not had one in some time. Coronavirus screen: Client denies travel out of the [place] in the last 14 days. Ebola Screen: No symptoms or risks identified at this time. Initial Sepsis Screen: Does the patient meet any 2 criteria? No. Patient's initial sepsis screen is negative. Does the patient have a suspected source of infection? No. Patient's initial sepsis screen is negative. Risk Assessment: Do you want to hurt yourself or someone else? Patient reports no desire to harm self or others. Onset of symptoms was October 11, 2020. 15:52 Method Of Arrival: Ambulatory ph 15:52 Acuity: NICOLASA 3 ph Triage Assessment: 17:49 Headache History: The patient has had previous headaches and this one is similar to kg previous episodes. General: Appears uncomfortable, Behavior is calm, cooperative, appropriate for age, quiet. Pain: Also complains of. Pain: Complains of pain in forehead, right druze and left druze Pain currently is 8 out of 10 on a pain scale. at worst was 9 out of 10 on a pain scale. level that patient reports is acceptable is 3 out of 10 on a pain scale. Quality of pain is described as. 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 - Social history:: Smoking status: Patient denies any tobacco usage or history of. Screenin:49 Abuse screen: Denies threats or abuse. Denies injuries from another. Nutritional kg screening: No deficits noted. Tuberculosis screening: No symptoms or risk factors identified. Fall Risk None identified. No fall in past 12 months (0 pts). No secondary diagnosis (0 pts). No IV (0 pts). Ambulatory Aid- None/Bed Rest/Nurse Assist (0 pts). Gait- Normal/Bed Rest/Wheelchair (0 pts) Mental Status- Oriented to own ability (0 pts). Total Mora Fall Scale indicates No Risk (0-24 pts). Assessment: 17:46 General: Appears in no apparent distress. Behavior is calm, cooperative, appropriate kg for age, quiet. Pain: Complains of pain in forehead, right druze and left druze Pain does not radiate. Pain currently is 8 out of 10 on a pain scale. at worst was 9 out of 10 on a pain scale. level that patient reports is acceptable is 3 out of 10 on a pain scale. Quality of pain is described as throbbing, pulsating, Pt stated, "constant, fullness" Pain began 2-3 days ago. Neuro: No deficits noted. Cardiovascular: No deficits noted. Heart tones S1 S2. Respiratory: Airway is patent Trachea midline Respiratory effort is even, unlabored, relaxed, Respiratory pattern is regular, Breath sounds are clear bilaterally. GI: Reports nausea, vomiting. : No deficits noted. EENT: Reports photophobia since three days ago. Derm: No deficits noted. Musculoskeletal: No deficits noted. 20:48 Reassessment: Patient and/or family updated on plan of care and expected duration. Pain ea level reassessed. Patient is alert, oriented x 3, equal unlabored respirations, skin warm/dry/pink. Discharge instruction given to patient verbalized the understanding of instruction. Pt left ED ambulatory accompanied by family. Pt tolerating well. Vital Signs: 17:55 BP 122 / 95; Pulse 92; Resp 20; Pulse Ox 100% on R/A; kg 18:30 BP 125 / 83; Pulse 80; Resp 20; Pulse Ox 100% on R/A; kg 20:30 BP 120 / 78; Pulse 78; Resp 18; Pulse Ox 98% ; ea ED Course: 15:19 Patient arrived in ED. as 15:55 Triage completed. ph 15:57 Arm band placed on Patient placed in waiting room. ph 17:26 CT Head Brain wo Cont In Process Unspecified. EDMS 17:37 Rosi Gonzales, RN is Primary Nurse. kg 17:38 Lance Smart PA is PHCP. [facility] 17:38 Scott Mari MD is Attending Physician. [facility] 17:49 No provider procedures requiring assistance completed. kg 17:55 Patient has correct armband on for positive identification. Bed in low position. Call kg light in reach. Side rails up X2. 18:00 Inserted saline lock: 20 gauge in right antecubital area, using aseptic technique. kg 20:49 IV discontinued, intact, bleeding controlled, No redness/swelling at site. Pressure ea dressing applied. Administered Medications: 18:00 Drug: diphenhydrAMINE 12.5 mg Route: IVP; Site: right antecubital; kg 18:10 Drug: Reglan (metoCLOPramide) 20 mg Route: IVP; Site: right antecubital; kg 18:55 Drug: Decadron - Dexamethasone 10 mg Route: IVP; Site: right antecubital; kg 19:10 Drug: Zofran (Ondansetron) 4 mg Route: IVP; Site: right antecubital; kg 19:10 Drug: Ketorolac 30 mg Route: IVP; Site: right antecubital; kg Outcome: 20:09 Discharge ordered by . [facility] 20:49 Discharged to home ea 20:49 Condition: stable 20:49 Discharge instructions given to patient, Instructed on discharge instructions, follow up and referral plans. Demonstrated understanding of instructions, follow-up care. 20:50 Patient left the ED. ea Signatures: Dispatcher [employer] EDIA Lance Smart PA PA jmm Martinez, Amelia as Hall, Patricia, RN RN Padmini Perez RN RN ea Rosi Gonzales, RN RN kg
[2020-10-11 21:24] VITALS: BP 120/78; O2SAT 98
== END 2020-10-11 20:50 | disposition home or self-care (01) ==
LOC: ER 15:18
DX: R51.9 Headache, unspecified (principal)
CPT/HCPCS: 70450; 96375; 96374; 99283; J2765 ×2; J1200; J1100; J7050; J2405

== ENCOUNTER 2020-11-19 19:57 | Emergency (ER) | payer OTHER ==
--- OUTSIDE RECORDS SUMMARY | 2020-11-19 20:01 | XMS REPORT | Continuity of Care Document ---
:1980 Author Organization [facility] t Address [address] [place] [place] [address] Care Team Providers Name Role Phone Jay Pierce Attending Clinician [phone] Vikas LASSITER Attending Clinician Edis Sims DO Attending Clinician Travis MALDONADO Attending Clinician Rachelle MALDONADO Attending Clinician Esdras Monterroso Attending Clinician Doctor Unassigned, Name Attending Clinician Unavailable Stacey Isabel Attending Clinician Racehlle MALDONADO Admitting Clinician Payers Payer Name Policy Type Policy Number Effective Date Expiration Date S ource Problems This patient has no known problems. Allergies, Adverse Reactions, Alerts Allergy Allergy Status Severity Reaction(s) Onset Inactive Treating Comm ents Source Name Type Date Date Clinician ally PEARL Active [facility] subsalic 11-08 Clear ylate 00:00: Jones 00 [facility] Medications This patient has no known medications. Procedures This patient has no known procedures. Encounters Start End Encounter Admission Attending Care Care Encounter Source Date/Time Date/Time Type Type Clinicians Facility Department ID 2020-08-24 2020-08-24 Outpatient TAYLOR Pierce [id number] 00:00:00 00:00:00 Alex [id number] Jay [id number] 2020-07-23 2020-07-23 Emergency Bean, [facility] [id number] 11:40:00 15:16:00 Alice Leon 350.1.13.10 [place] 4.2.7.2.686 [place] [id number] 2020-04-27 2020-04-27 Emergency Levi, [facility] [id number] 11:25:00 18:21:00 Ann Leon 350.1.13.10 [place] 4.2.7.2.686 [place] [id number] 2020-02-07 2020-02-08 Emergency Angelo Robles [facility] 1.2.840. 114 [id number] 14:46:00 14:26:00 Naun Bush 350.1.13.10 [place] 4.2.7.2.686 [place] [id number] 2020-01-24 2020-01-24 Emergency Bubba [facility] [id number] 17:12:00 21:15:00 Nohelia Leon 350.1.13.10 [place] 4.2.7.2.686 [place] [id number] 2020-01-24 2020-01-24 Orders Doctor LUÍS [id number] 00:00:00 00:00:00 Only Unassigned, SHARON 350.1.13.10 [place] [facility] 4.2.7.2.686 [id number] 2019-06-02 2019-06-02 Emergency Chris [facility] [id number] 11:18:34 14:43:00 Candido Leon 350.1.13.10 [place] 4.2.7.2.686 [place] [id number] Results Test Description Test Time Test Comments Results Result Comments Source - XR CHEST 1 V 2019-02-22 Name: VIC JAMES 19:54:00 [facility] : 1980 Age/S: 38 / F [address] Unit #: [id number] Loc: [place] [address] Phys: Génesis King MD Acct: [id number] Dis Date: Status: ADM IN PHONE #: [phone] Exam Date: 02/22/20191940 FAX #: Reason: SOB EXAMS: CPT: [id number] XR CHEST 1 V 11115 Fluoro Time: DAP (Gy m2): Air Kerma [...] PAGE 1 Signed Report Name: VIC JAMES [facility] : 1980 Age/S: 38 / F [address] Unit #: [id number] Loc: [place] [address] Phys: Génesis King MD Acct: [id number] Dis Date: Status: ADM IN PHONE #: [phone] Exam Date: 02/22/20191940 FAX #: Reason: SOB EXAMS: CPT: [id number] XR CHEST 1 V 73023 Fluoro Time: DAP (Gy m2): Air Kerma (mGy): <Continued> Technologist: Jordan Chacon, RT(R)(CT) Trnscb Date/Time: 02/22/2019 (1953) Talya Orig Print D/T: S: 02/22/2019 (1956) PAGE 2 Signed Report - RETRO [facility] 2019-02-22 Name: 15:32:00 VIC JAMES [place] : 1980 Age/S: 38 / F [address] Unit #: [id number] Loc: [place] [address] Phys: Génesis King MD Acct: [id number] Dis Date: Status: ADM IN PHONE #: [phone] Exam Date: 02/22/2019 1200 FAX #: Reason: back pain EXAMS: CPT: [id number] US RETRO LTD 70421 EXAMINATION: - US RETRO LTD. LOCATION: T18. [...] JAMES : 1980 Age/S: 38 / F [address] [address] Unit #: [id number] Loc: [place] [address] Phys: Génesis King MD Acct: [id number] Dis Date: Status: ADM IN PHONE #: [phone] Exam Date: 02/22/2019 1200 FAX #: Reason: back pain EXAMS: CPT: [id number] [facility] [address] <Continued> Orig Print D/T: S: 02/22/2019 (1535) [...] WITH = MDIFF) AUTO DIFFERENTI AL. RBC [id number] 12:09:00 Test Item Value Reference Range Interpretation Comments ANISOCYTOSIS (test code = 1+ NONE ANISO) MICROCYTOSIS (test code = 1+ ON SCAN NONE MICR) PLATELET ESTIMATE (test ADEQUATE THOUSAND ADEQUATE code = PLTEST) PLATELET MORPHOLOGY (test NORMAL code = PLTMORPH) CBC W/AUTO [id number] 12:08:00 Test Item Value Reference Range Interpretation [...] = NO DIFF/SCN CRITERIA MDIFF) CBC W/AUTO [id number] 12:08:00 Test Item Value Reference Range Interpretation [...] code = NO DIFF/SCN CRITERIA MDIFF) RBC [id number] 12:08:00 Test Item Value Reference Range Interpretation Comments ANISOCYTOSIS (test code = 1+ NONE ANISO) MICROCYTOSIS (test code = 1+ ON SCAN NONE MICR) PLATELET ESTIMATE (test ADEQUATE THOUSAND ADEQUATE code = PLTEST) PLATELET MORPHOLOGY (test NORMAL code = PLTMORPH) CBC W/AUTO [id number] 12:08:00 Test Item Value Reference Range Interpretation [...] = NO DIFF/SCN CRITERIA MDIFF) BASIC METABOLIC [id number] 07:07:00 Test Item Value Reference Range Interpretation [...] CA) 7.8 MG/DL 8.5-10.1 L CBC W/AUTO [id number] 06:58:00 Test Item Value Reference Range Interpretation [...] ng/mL are obtained. - CT ABD PELVIS [id number] 20:34:00 Name: VIC JAMES [facility] : 1980 Age/S: 38 / F [address] [facility] [address] Unit #: [id number] Loc: [place] [address] Phys: Cony Partida MD Acct: [id number] Dis Date: Status: ADM IN PHONE #: [phone] Exam Date: 02/19/20192024 FAX #: Reason: acute PN, possible ureteral stone EXAMS: CPT: [id number] CT ABD PELVIS W/CONT 30917 CT Abdomen and Pelvis with contrast. Location: [...] 1 Signed ReportUA RFLX MICR CULT IF [id number] 19:43:00 Test Item Value Reference Range Interpretation [...] culture: Flank PainUA RFLX MICR CULT IF [id number] 19:28:00 Test Item Value Reference Range Interpretation [...] - 50,000 2ND & 3RD TRIMESTER LACTIC [id number] 18:52:00 Test Item Value Reference Range Interpretation Comments LACTIC ACID (test code = LACT) 0.7 mmol/L 0.4-2.0 N CBC W/AUTO [id number] 17:55:00 Test Item Value Reference Range Interpretation [...] MDIFF) CONSISTA NT WITH AUTO DIFFERENTIAL. RBC [id number] 17:55:00 Test Item Value Reference Range Interpretation Comments ANISOCYTOSIS (test code = ANISO) 1+ NONE CBC W/AUTO [id number] 17:54:00 Test Item Value Reference Range Interpretation [...] CONSISTA NT WITH AUTO DIFFERENTIAL. CBC W/AUTO [id number] 17:54:00 Test Item Value Reference Range Interpretation [...] CONSISTA NT WITH AUTO DIFFERENTIAL. BASIC METABOLIC [id number] 17:43:00 Test Item Value Reference Range Interpretation [...] Unit/L 84-246 N code = LDH) LACTIC [id number] 17:43:00 Test Item Value Reference Range Interpretation Comments LACTIC ACID (test code = LACT) 0.8 mmol/L 0.4-2.0 N BASIC METABOLIC [id number] 17:36:00 Test Item Value Reference Range Interpretation [...] code Unit/L 84-246 = LDH) CBC W/AUTO [id number] 17:35:00 Test Item Value Reference Range Interpretation [...]
--- NOTE | 2020-11-19 21:19 | RAD REPORT ---
EXAM DESCRIPTION: RAD - Chest Single View - 11/19/2020 9:12 pm CLINICAL HISTORY: Chest pain;Cough COMPARISON: Chest Single View dated 05/24/2018; Chest Pa And Lat (2 Views) dated 03/08/2018; Chest Si ngle View dated 08/20/2016; CHEST SINGLE VIEW dated 02/28/2015 FINDINGS: Decreased lung volumes. No evidence of edema or pneumonia. The heart size is within normal limits.No acute osseous abnormality. No significant pleural effusions or pneumothorax. IMPRESSION: No acute cardiopulmonary disease.
[2020-11-19] MEDS ORDERED: NA CHLORIDE 0.9% 500 ML ONE (22:53)
[2020-11-19] MEDS ORDERED: AZITHROMYCIN 250 MG TAB ONE (22:53)
[2020-11-19] MEDS ORDERED: ASPIRIN 81 MG CHEWABLE TABLET ONE (22:53)
[2020-11-19] MEDS ORDERED: predniSONE 20 MG TAB ONE (22:53)
[2020-11-19 23:09] LABS: Absolute Lymphocytes (CBC) 1.6 K/uL (0.7-4.9); Basophils % 0.3 % (0-1.3); Hematocrit 42.4 % (36.0-45.0); Lymphocytes % 14.6 % (15.3-44.8); MPV 9.8 fL (7.6-11.3); RBC Red Blood Cell Count 4.76 M/uL (3.86-4.86)
[2020-11-19 23:28] LABS: ALT/SGPT 32 U/L (12-78); AST/SGOT 25 U/L (15-37); Albumin 3.8 g/dL (3.4-5.0); Alkaline Phosphatase 140 U/L (45-117); BUN Blood Urea Nitrogen 6 mg/dL (7-18); Bicarbonate 29 mmol/L (21-32); Bilirubin Total 0.3 mg/dL (0.2-1.0); Glucose Level 95 mg/dL (74-106); Potassium 3.8 mmol/L (3.5-5.1); Protein, Total 7.5 g/dL (6.4-8.2); Sodium Level 139 mmol/L (136-145); Troponin (Emerg Dept Use Only) < 0.02 ng/mL (0.0-0.045)
[2020-11-20] MEDS ORDERED: HYDROCODONE/CHLORPHEN 5 ML/OSYR ONE (00:01)
--- NOTE | 2020-11-20 00:25 | EDPHYS ---
Physician Documentation [facility] Name: Yohana Reeves Age: 40 yrs Sex: Female : 1980 Arrival Date: 11/19/2020 Time: 19:59 Bed 12 Private MD: Jordan Jean T ED Physician Scott Mari HPI: 11/19 21:54 This 40 yrs old Female presents to ER via Ambulatory with complaints of + For israel covid, chest pain, cough. 21:54 The patient has shortness of breath at rest, with light activity. Onset: The israel symptoms/episode began/occurred 2 day(s) ago. Duration: The symptoms are intermittent, with episodes lasting seconds at a time. The patient's shortness of breath is aggravated by coughing, is alleviated by rest. The patient or guardian reports cough, difficulty breathing, flu symptoms. Onset: The symptoms/episode began/occurred 1 week(s) ago. Modifying factors: The symptoms are alleviated by nothing. the symptoms are aggravated by nothing. Associated signs and symptoms: The patient has no apparent associated signs or symptoms. Severity of symptoms: At their worst the symptoms were mild in the emergency department the symptoms are unchanged. Associated signs and symptoms: Pertinent positives: chest pain, fever, rhinorrhea. 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 - Social history:: Smoking status: Patient/guardian denies using tobacco, Stopped _ months ago 3. - Family history:: not pertinent. ROS: 21:54 Constitutional: Negative for fever, chills, and weight loss, Eyes: Negative for injury, israel pain, redness, and discharge, ENT: Negative for injury, pain, and discharge, Neck: Negative for injury, pain, and swelling, Cardiovascular: Negative for chest pain, palpitations, and edema, Abdomen/GI: Negative for abdominal pain, nausea, vomiting, diarrhea, and constipation, Back: Negative for injury and pain, : Negative for injury, bleeding, discharge, and swelling, MS/Extremity: Negative for injury and deformity, Skin: Negative for injury, rash, and discoloration, Neuro: Negative for headache, weakness, numbness, tingling, and seizure, Psych: Negative for depression, anxiety, suicide ideation, homicidal ideation, and hallucinations, Allergy/Immunology: Negative for hives, rash, and allergies, Endocrine: Negative for neck swelling, polydipsia, polyuria, polyphagia, and marked weight changes, Hematologic/Lymphatic: Negative for swollen nodes, abnormal bleeding, and unusual bruising. 21:54 Respiratory: Positive for cough, shortness of breath, at rest. Exam: 21:54 Constitutional: This is a well developed, well nourished patient who is awake, alert, israel and in no acute distress. Head/Face: Normocephalic, atraumatic. Eyes: Pupils equal round and reactive to light, extra-ocular motions intact. Lids and lashes normal. Conjunctiva and sclera are non-icteric and not injected. Cornea within normal limits. Periorbital areas with no swelling, redness, or edema. ENT: Nares patent. No nasal discharge, no septal abnormalities noted. Tympanic membranes are normal and external auditory canals are clear. Oropharynx with no redness, swelling, or masses, exudates, or evidence of obstruction, uvula midline. Mucous membranes moist. Neck: Trachea midline, no thyromegaly or masses palpated, and no cervical lymphadenopathy. Supple, full range of motion without nuchal rigidity, or vertebral point tenderness. No Meningismus. Chest/axilla: Normal chest wall appearance and motion. Nontender with no deformity. No lesions are appreciated. Cardiovascular: Regular rate and rhythm with a normal S1 and S2. No gallops, murmurs, or rubs. Normal PMI, no JVD. No pulse deficits. Respiratory: Lungs have equal breath sounds bilaterally, clear to auscultation and percussion. No rales, rhonchi or wheezes noted. No increased work of breathing, no retractions or nasal flaring. Abdomen/GI: Soft, non-tender, with normal bowel sounds. No distension or tympany. No guarding or rebound. No evidence of tenderness throughout. Back: No spinal tenderness. No costovertebral tenderness. Full range of motion. Skin: Warm, dry with normal turgor. Normal color with no rashes, no lesions, and no evidence of cellulitis. MS/ Extremity: Pulses equal, no cyanosis. Neurovascular intact. Full, normal range of motion. Neuro: Awake and alert, GCS 15, oriented to person, place, time, and situation. Cranial nerves II-XII grossly intact. Motor strength 5/5 in all extremities. Sensory grossly intact. Cerebellar exam normal. Normal gait. Psych: Awake, alert, with orientation to person, place and time. Behavior, mood, and affect are within normal limits. 21:54 Musculoskeletal/extremity: DVT Exam: No signs of deep vein thrombosis. no pain, no swelling, no tenderness, negative Homans' sign noted on exam, no appreciated bluish discoloration, no erythema, no increased warmth. 23:27 ECG was reviewed by the Attending Physician. [facility] Vital Signs: 20:54 BP 112 / 84; Pulse 101; Resp 18 S; Temp 98.5(O); Pulse Ox 100% on R/A; Weight 79.38 kg bb (R); Height 5 ft. 2 in. (157.48 cm) (R); Pain 9/10; 20:54 Body Mass Index 32.01 (79.38 kg, 157.48 cm) bb MDM: 21:39 Patient medically screened. [facility] 21:57 Differential diagnosis: bronchitis, flu, URI. Antibiotic administration: The patient is [facility] discharged and will get outpatient antibiotics, Zithromax. The patient's Wells Deep Vein Thrombosis Score was calculated as follows: Total Score: 0-2 Pts- Low Risk. The patient's pulmonary embolism risk score was calculated as follows: Total Score: 0-2 points. This patient was found to be at low risk for a pulmonary embolism by using the Well's assessment criteria. Immunization status:. Data reviewed: vital signs, nurses notes, lab test result(s), EKG, radiologic studies, CT scan, plain films. Data interpreted: cardiac monitor: rate is 101 beats/min, rhythm is regular, Pulse oximetry: on room air is 100 %. Test interpretation: by ED physician or midlevel provider: ECG, plain radiologic studies. Counseling: I had a detailed discussion with the patient and/or guardian regarding: the historical points, exam findings, and any diagnostic results supporting the discharge/admit diagnosis, lab results, radiology results, the need for outpatient follow up, for definitive care, a family practitioner. 11/19 21:53 Order name: CBC with Diff; Complete Time: 23:28 [facility] 11/19 21:53 Order name: Comprehensive Metabolic Panel; Complete Time: 23:47 [place] 11/19 20:59 Order name: XRAY Chest (1 view); Complete Time: 21:50 bb 11/19 21:53 Order name: CT Chest For PE Angio [facility] 11/19 21:53 Order name: Troponin (emerg Dept Use Only); Complete Time: 23:47 [place] 11/19 21:53 Order name: EKG; Complete Time: 21:53 [facility] 11/19 21:53 Order name: EKG - Nurse/Tech; Complete Time: 23:28 [place] EC:27 Rate is 87 beats/min. Rhythm is regular. QRS [place] is Normal. IN interval is normal. QRS [place]rael interval is normal. QT interval is normal. No Q waves. T waves are Normal. No ST changes noted. Clinical impression: NSR w/ Non-specific ST/T Changes and No evidence of ischemia. Interpreted by me. Reviewed by me. Administered Medications: 22:40 Drug: NS 0.9% 500 ml Route: IV; Rate: bolus; Site: right antecubital; kg 23:41 Follow up: Response: No adverse reaction; IV Status: Completed infusion; IV Intake: kg 500ml 22:40 Drug: Aspirin Chewable Tablet 162 mg Route: PO; kg 23:17 Follow up: Response: No adverse reaction kg 22:40 Drug: predniSONE 40 mg Route: PO; kg 23:17 Follow up: Response: No adverse reaction kg 22:40 Drug: Zithromax (azithromycin) 500 mg Route: PO; kg 23:17 Follow up: Response: No adverse reaction kg 23:41 Drug: Tussionex Pennkinetic ER (chlorpheniramine-hydrocodone) Suspension 5 ml Route: PO;kg 11/20 00:04 Follow up: Response: No adverse reaction kg 00:47 Drug: Ketorolac 30 mg Route: IVP; Site: right antecubital; em 00:48 Follow up: Response: Medication administered at discharge. em Disposition Summary: 11/20/20 00:24 Discharge Ordered Location: Home [facility] Problem: new [facility] Symptoms: have improved [facility] Condition: Stable [facility] Diagnosis - Coronavirus infection, unspecified - covid 19 israel - Dyspnea israel - Chest pain, unspecified [place]rael Followup: [facility] - With: - When: 2 - 3 days - Reason: Recheck today's complaints, Continuance of care, Re-evaluation by your physician Followup: [facility] - With: Tip Ojeda MD - When: 2 - 3 days - Reason: Recheck today's complaints, Re-evaluation by your physician Discharge Instructions: - Discharge Summary Sheet [facility] - Nonspecific Chest Pain, Adult [place] - Upper Respiratory Infection, Adult [facility] - Nonspecific Chest Pain, Adult, [id number] [facility] - Viral Respiratory Infection, Haom-Qf-Zion [facility] - Aspirin and Your Heart [facility] - COVID-19 [facility] - Viral Illness, Adult [facility] Forms: - Medication Reconciliation Form [facility] - Thank You Letter [facility] - Antibiotic Education [facility] - Prescription Opioid Use [facility] Prescriptions: - Pepcid 20 mg Oral Tablet - take 1 tablet by ORAL route every 12 hours for 15 days; 30 tablet; Refills: 0, [facility] Product Selection Permitted - Zithromax Z-Vaughn 250 mg Oral Tablet - take 1 tablet by ORAL route as directed for 5 days Day 1 - take two (2) tablets [facility] one time. Day 2, 3, 4 , 5 take one (1) tablet once daily.; 6 tablet; Refills: 0, Product Selection Permitted - Prednisone 20 mg Oral Tablet - take 2 tablets by ORAL route once daily for 5 days; 10 tablet; Refills: 0, [facility] Product Selection Permitted Signatures: Dispatcher [employer] Scott Vigil MD MD cha Munoz, Edgar, RN RN Karmen Cardenas RN RN Rosi Kothari RN RN kg Corrections: (The following items were deleted from the chart) 11/19 20:58 20:56 Immunization history: Adult Immunizations up to date, Client reports receiving bb the 2nd dose of the Covid vaccine, bb 20:58 20:56 Social history: Smoking status: Patient denies any tobacco usage or history of. bbbb
--- NOTE | 2020-11-20 00:25 | ER ---
Nurse's Notes [facility] Name: Yohana Reeves Age: 40 yrs Sex: Female : 1980 Arrival Date: 11/19/2020 Time: 19:59 Bed 12 Private MD: Jordan Jean T Diagnosis: Coronavirus infection, unspecified-covid 19;Dyspnea;Chest pain, unspecified Presentation: 11/19 20:54 Chief complaint: Patient states: she tested positive for Covid a week ago but symptoms bb are getting worse she feels SOB with difficulty breathing which started today. Coronavirus screen: difficulty breathing, shortness of breath, Client reports previous positive COVID test result. Ebola Screen: No symptoms or risks identified at this time. Initial Sepsis Screen: Does the patient meet any 2 criteria? No. Patient's initial sepsis screen is negative. Does the patient have a suspected source of infection? Yes: Productive cough/pneumonia. Risk Assessment: Do you want to hurt yourself or someone else? Patient reports no desire to harm self or others. Onset of symptoms was November 19, 2020. 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 - Social history:: Smoking status: Patient/guardian denies using tobacco, Stopped _ months ago 3. - Family history:: not pertinent. Screenin/10 00:47 Abuse screen: Denies threats or abuse. Nutritional screening: No deficits noted. em Tuberculosis screening: No symptoms or risk factors identified. Fall Risk None identified. Assessment: 00:48 General: Appears in no apparent distress. comfortable, Behavior is calm, cooperative, em appropriate for age. Pain: Complains of pain in chest. Neuro: Level of Consciousness is awake, alert, obeys commands, Oriented to person, place, time, situation. Cardiovascular: Capillary refill < 3 seconds Patient's skin is warm and dry. Respiratory: Airway is patent Respiratory effort is even, unlabored, Respiratory pattern is regular, symmetrical. Derm: Skin is intact, is healthy with good turgor, Skin is pink, warm \T\ dry. Musculoskeletal: Capillary refill < 3 seconds, Range of motion: intact in all extremities. Vital Signs: 11/19 20:54 BP 112 / 84; Pulse 101; Resp 18 S; Temp 98.5(O); Pulse Ox 100% on R/A; Weight 79.38 kg bb (R); Height 5 ft. 2 in. (157.48 cm) (R); Pain 9/10; 20:54 Body Mass Index 32.01 (79.38 kg, 157.48 cm) bb ED Course: 19:59 Patient arrived in ED. es 20:01 Jordan Jean MD is Private Physician. es 20:56 Triage completed. bb 20:56 Arm band placed on Patient placed in waiting room, Patient notified of wait time. bb 21:11 XRAY Chest (1 view) In Process Unspecified. EDMS 21:39 Scott Mari MD is Attending Physician. [place] 22:07 Rosi Gonzales, FÁTIMA is Primary Nurse. kg 22:35 Inserted saline lock: 20 gauge in right antecubital area, using aseptic technique. kg 23:59 CT Chest For PE Angio In Process Unspecified. EDMS 08 00:24 Jordan Jean MD is Referral Physician. [place] 00:24 Tip Ojeda MD is Referral Physician. [place] 00:47 Patient has correct armband on for positive identification. Adult w/ patient. em 00:47 No provider procedures requiring assistance completed. IV discontinued, intact, em bleeding controlled, No redness/swelling at site. Pressure dressing applied. Administered Medications: 11/19 22:40 Drug: NS 0.9% 500 ml Route: IV; Rate: bolus; Site: right antecubital; kg 23:41 Follow up: Response: No adverse reaction; IV Status: Completed infusion; IV Intake: kg 500ml 22:40 Drug: Aspirin Chewable Tablet 162 mg Route: PO; kg 23:17 Follow up: Response: No adverse reaction kg 22:40 Drug: predniSONE 40 mg Route: PO; kg 23:17 Follow up: Response: No adverse reaction kg 22:40 Drug: Zithromax (azithromycin) 500 mg Route: PO; kg 23:17 Follow up: Response: No adverse reaction kg 23:41 Drug: Tussionex Pennkinetic ER (chlorpheniramine-hydrocodone) Suspension 5 ml Route: PO;kg 11/20 00:04 Follow up: Response: No adverse reaction kg 00:47 Drug: Ketorolac 30 mg Route: IVP; Site: right antecubital; em 00:48 Follow up: Response: Medication administered at discharge. em Intake: 11/19 23:41 IV: 500ml; Total: 500ml. kg Outcome: 11/20 00:24 Discharge ordered by . [place]rael 00:47 Discharged to home ambulatory. em 00:47 Condition: stable 00:47 Discharge instructions given to patient, Instructed on discharge instructions, follow up and referral plans. medication usage, Demonstrated understanding of instructions, follow-up care, medications, Prescriptions given X 3. 00:49 Patient left the ED. em Signatures: Dispatcher [employer] EDScott Lindsay MD MD cha Salyer, Jaime Harrell RN RN em Karmen Harding RN RN bb Rosi Gonzales RN RN kg Corrections: (The following items were deleted from the chart) 11/19 20:58 20:56 Immunization history: Adult Immunizations up to date, Client reports receiving bb the 2nd dose of the Covid vaccine, bb 20:58 20:56 Social history: Smoking status: Patient denies any tobacco usage or history of. bbbb
[2020-11-20 00:54] VITALS: BP 112/84; TEMP 98.5; O2SAT 100
[2020-11-20] MEDS ORDERED: KETOROLAC 30 MG/ML INJ ONE (01:00)
--- NOTE | 2020-11-20 07:56 | EKG ---
Test Date: 2020-11-19 Test Time: 23:17:22 Sticker Machine Operator: LEIF MEASUREMENT RESULTS: Intervals: Rate: 87 ID: [id number] QRSD: 80 QT: 372 QTc: 447 Mittie: P: 65 ID: [id number] QRS: 69 T: 43 INTERPRETIVE STATEMENTS: Normal sinus rhythm Normal ECG Compared to ECG 05/24/2018 14:06:32 Short ID interval no longer present Electronically Signed On 11-20-20 07:55:58 CDT by Jr Ernandez
--- NOTE | 2020-11-20 12:35 | RAD REPORT ---
EXAM DESCRIPTION: CT - Chest For Pe Angio - 11/20/2020 6:34 am CLINICAL HISTORY: The patient is 40 years old and is Female; DYSPNEA TECHNIQUE: Axial computed tomographic angiography images of the chest with intravenous contrast. S agittal and coronal reformatted images were created and reviewed. This CT exam was performed using one or more of the following dose reduction techniques: automated exposure control, adjustment of t he mA and/or kV according to patient size, and/or use of iterative reconstruction technique. MIP re constructed images were created and reviewed. COMPARISON: No relevant prior studies available. FINDINGS: Pulmonary arteries: Unremarkable. No pulmonary embolism. Aorta: No acute findings. No thoracic aortic aneurysm. Lungs: Unremarkable. No mass. No consolidation. Pleural space: Unremarkable. No significant effusion. No pneumothorax. Heart: Unremarkable. No cardiomegaly. No significant pericardial effusion. No evidence of R V dysfunction. Bones/joints: No acute fracture. No dislocation. Soft tissues: Unremarkable. Lymph nodes: Unremarkable. No enlarged lymph nodes. IMPRESSION: No acute finding. No evidence of pulmonary embolism. Electronically signed by: Boris Membreno MD 11/20/2020 12:08 AM CDT Due to temporary technical issues with the PACS/Fluency reporting system, reports are being signed by the in house radiologists without review as a courtesy to insure prompt reporting. The interpreting radiologist is fully responsible for the content of the report.
== END 2020-11-20 00:49 | disposition home or self-care (01) ==
LOC: ER 19:57
DX: U07.1 COVID-19 (principal); R06.00 Dyspnea, unspecified; I25.2 Old myocardial infarction
CPT/HCPCS: 96361; 93005; 85025; 36415; 84484; 80053; 71275; 71045; 96374; 99284; Q9967; J7512; J7040

== ENCOUNTER 2021-02-17 17:47 | Inpatient (IN) | payer OTHER ==
--- NOTE | 2021-02-17 18:58 | RAD REPORT ---
EXAM DESCRIPTION: CT - Head Brain Wo Cont - 02/17/2021 6:40 pm CLINICAL HISTORY: Blurred vision COMPARISON: October 2020 TECHNIQUE: Computed axial tomography of the head was obtained. IV contrast was not requested. All CT scans are performed using dose optimization technique as appropriate and may include automated exposure control or mA/KV adjustment according to patient size. FINDINGS: An intracranial bleed is not seen . The ventricles are normal in caliber. No extra-axial fluid collection is noted. Fluid within the sinuses/ mastoids is not seen. IMPRESSION: No acute intracranial abnormality is seen. If patient's symptoms persist MRI of the bra in would be recommended.
[2021-02-17 19:37] LABS: Urine Blood Negative (Negative); Urine Glucose Negative (Negative); Urine Protein Negative (Negative); Urine Specific Gravity 1.025 (1.005-1.030)
[2021-02-17] MEDS ORDERED: METOCLOPRAMIDE 10 MG/2mL INJ ONE (19:51)
[2021-02-17] MEDS ORDERED: DIPHENHYDRAMINE 50 MG/ML VIAL ONE (19:51)
[2021-02-17] MEDS ORDERED: TETRACAINE HCL 0.5% 4ML OPTH ONE (19:51)
[2021-02-17 19:53] LABS: Absolute Lymphocytes (CBC) 2.8 K/uL (0.7-4.9); Basophils % 0.4 % (0-1.3); Lymphocytes % 23.4 % (15.3-44.8); MPV 9.7 fL (7.6-11.3); RBC Red Blood Cell Count 4.81 M/uL (3.86-4.86)
[2021-02-17 20:03] LABS: Protime INR 1.01
[2021-02-17 20:07] LABS: Albumin 4.1 g/dL (3.4-5.0); BUN Blood Urea Nitrogen 12 mg/dL (7-18); Bicarbonate 28 mmol/L (21-32); Bilirubin Direct < 0.1 mg/dL (0-0.2); Glucose Level 92 mg/dL (74-106); Magnesium 2.2 mg/dL (1.8-2.4); Potassium 3.8 mmol/L (3.5-5.1); Sodium Level 139 mmol/L (136-145)
[2021-02-17 20:11] LABS: Barbiturates NEGATIVE (NEGATIVE); Benzodiazepines NEGATIVE (NEGATIVE); Cocaine NEGATIVE (NEGATIVE); METHAMPHETAM NEGATIVE (NEGATIVE); Methadone NEGATIVE (NEGATIVE); Opiates NEGATIVE (NEGATIVE); Phencyclidine NEGATIVE (NEGATIVE); THC Cannibis NEGATIVE (NEGATIVE)
[2021-02-17 20:14] LABS: ALT/SGPT 44 U/L (12-78); AST/SGOT 15 U/L (15-37); Alkaline Phosphatase 135 U/L (45-117); Bilirubin Total 0.3 mg/dL (0.2-1.0); NT PRO-BNP 83 pg/mL (<125); Protein, Total 7.8 g/dL (6.4-8.2); Troponin (Emerg Dept Use Only) < 0.02 ng/mL (0.0-0.045)
--- NOTE | 2021-02-17 20:19 | RAD REPORT ---
EXAM DESCRIPTION: Peter Single View02/17/2021 7:52 pm CLINICAL HISTORY: Hypertension COMPARISON: November 2020 FINDINGS: The lungs appear clear of acute infiltrate. The heart is normal size IMPRESSION: No acute abnormalities displayed
[2021-02-17] MEDS ORDERED: FLUORESCEIN SODIUM 1 MG/WRAP ONE (20:43)
--- NOTE | 2021-02-17 21:12 | ER ---
Nurse's Notes [facility] Name: Yohana Reeves Age: 40 yrs Sex: Female : 1980 Arrival Date: 02/17/2021 Time: 17:48 Bed 7 Private MD: Diagnosis: Blurred Vision, Headache;Gait Abnormality, Memory Abnormality Presentation: 02/17 17:51 Chief complaint: Patient states: i started having blurry vision on Thursday and it has tw2 progressively gotten worse. i woke up this morning and i have a really bad headache. i have taken tylenol and aleve and it hasnt gone away. i took my blood pressure 3 times today and it was elevated. it was 149/109 the last time. Chief complaint: Patient states: this sounds really crazy but i feel like there is pressure in my eye. and my said my pupils look dilated. i saw a neurologist the end of January because i was getting off balance. they scheduled the MRI but it is not until the . i do have a hx of migraines but they never cause me to have any vision problems. also i dont think this correlates but i am having trouble urinating. i feel the urge but it is slow to come out. Coronavirus screen: At this time, the client does not indicate any symptoms associated with coronavirus-19. Ebola Screen: Patient denies travel to an Ebola-affected area in the 21 days before illness onset. Initial Sepsis Screen: Does the patient meet any 2 criteria? HR > 90 bpm. No. Patient's initial sepsis screen is negative. Does the patient have a suspected source of infection? No. Patient's initial sepsis screen is negative. Risk Assessment: Do you want to hurt yourself or someone else? Patient reports no desire to harm self or others. Onset of symptoms was February 17, 2021. 17:51 Method Of Arrival: Ambulatory tw2 17:51 Acuity: NICOLASA 2 tw2 Triage Assessment: 17:55 General: Appears in no apparent distress. uncomfortable, Behavior is calm, cooperative, tw2 appropriate for age. Pain: Complains of pain in "pressure behind my eyes and radiates back". EENT: pupils dilated. 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 - Social history:: Smoking status: Patient denies any tobacco usage or history of. Screenin:23 Abuse screen: Denies threats or abuse. Nutritional screening: No deficits noted. vg1 Tuberculosis screening: No symptoms or risk factors identified. Fall Risk No fall in past 12 months (0 pts). No secondary diagnosis (0 pts). No IV (0 pts). Ambulatory Aid- None/Bed Rest/Nurse Assist (0 pts). Gait- Normal/Bed Rest/Wheelchair (0 pts) Mental Status- Oriented to own ability (0 pts). Total Mora Fall Scale indicates No Risk (0-24 pts). Assessment: 18:16 General: Appears in no apparent distress. comfortable, Behavior is calm, cooperative. vg1 Pain: Complains of pain in head, right eye, left eye Pain currently is 8 out of 10 on a pain scale. Pain began 2-3 days ago. Also complains of nausea. Neuro: Level of Consciousness is awake, alert, obeys commands, Oriented to person, place, time, situation, Pupils are Pupil Size: Right eye appears to be 8 mm and Left eye appears to be 7. MANASA eyes react to light dilated, Reports eye pressure. Cardiovascular: Patient's skin is warm and dry. Respiratory: Airway is patent Respiratory effort is even, unlabored. GI: Abdomen is flat, Reports nausea, Patient currently denies diarrhea, vomiting. : No signs and/or symptoms were reported regarding the genitourinary system. EENT: Eyes MANASA pupil dilation. Derm: Skin is intact, is healthy with good turgor. Musculoskeletal: Circulation, motion, and sensation intact. 19:22 Reassessment: Pt ambulate to bathroom with steady gait noted. Pt is with urine cup and dc2 instructed on sample. at side. NAD. 21:02 Reassessment: Pt updated on POC regarding admission, voices understanding. dc2 Vital Signs: 17:51 BP 120 / 92; Pulse 112; Resp 17; Temp 97.5(TE); Pulse Ox 100% on R/A; Weight 77.11 kg tw2 (R); Height 5 ft. 2 in. (157.48 cm); Pain 8/10; 18:23 BP 132 / 100; Pulse 95; Resp 16; Pulse Ox 100% ; vg1 02/18 00:00 BP 123 / 88; Pulse 78; Resp 17; Temp 97.5; Pulse Ox 99% ; Pain 6/10; dc2 02/17 17:51 Body Mass Index 31.09 (77.11 kg, 157.48 cm) tw2 ED Course: 02/17 17:48 Patient arrived in ED. ds1 17:54 Triage completed. tw2 17:54 Arm band placed on. tw2 18:00 Lelia Shaikh, RN is Primary Nurse. vg1 18:23 Patient has correct armband on for positive identification. Bed in low position. Call vg1 light in reach. Side rails up X 1. 18:40 CT Head Brain wo Cont In Process Unspecified. EDMS 19:01 Jarod Ferris MD is Attending Physician. mh7 19:17 Report given to Zandra SHINE. vg1 19:30 No apparent distress. Resting quietly. 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 Pulse ox on. NIBP on. dc2 19:30 Inserted saline lock: 20 gauge in right antecubital area, using aseptic technique. dc2 Blood collected. 19:40 Assist provider with eye exam using Performed by Zandra Plasencia Patient tolerated. dc2 19:40 EYE exam manasa 20/70 Left 20/200 Right 20/100. dc2 19:42 Basic Metabolic Panel Sent. dc2 19:42 CBC with Diff Sent. dc2 19:42 LFT's Sent. dc2 19:42 Magnesium Sent. dc2 19:43 NT PRO-BNP Sent. dc2 19:52 XRAY Chest (1 view) In Process Unspecified. EDMS 20:52 ED physician to see patient. dc2 21:10 Mayra Carpenter MD is Hospitalizing Provider. 7 21:42 COVID-19 SARS RT PCR (Document "Date of Onset" if Symptomatic) Sent. dc2 23:52 Primary Nurse role handed off by Lelia Shaikh RN tt3 23:57 Zandra Plasencia RN is Primary Nurse. dc2 02/18 00:05 IV is patent, dc2 Administered Medications: 02/17 19:00 Drug: Reglan (metoCLOPramide) 10 mg Route: IVP; Site: right antecubital; dc2 20:00 Follow up: Response: Pain is decreased dc2 19:50 Drug: Benadryl (diphenhydrAMINE) 50 mg Route: IVP; Site: right antecubital; dc2 20:45 Follow up: Response: Pain is decreased dc2 21:00 Drug: Tetracaine Drops 0.5 % 1 drops Route: Ophthalmic; Site: both eyes; dc2 21:30 Follow up: Response: No adverse reaction dc2 21:15 Drug: Fluorescein Strip 2 strip Route: Ophthalmic; Site: both eyes; dc2 21:20 Drug: NS 0.9% 1000 ml Route: IV; Rate: 1000 ml; Infused Over: 1 hrs; Site: right dc2 antecubital; Delivery: Primary tubing; 22:20 Follow up: IV Status: Completed infusion; IV Intake: 1000ml dc2 21:20 Drug: Dilaudid (HYDROmorphone) 1 mg Route: IVP; Site: right antecubital; dc2 21:30 Follow up: Response: Pain is decreased dc2 21:23 Drug: Decadron - Dexamethasone 10 mg Route: IVP; Site: right antecubital; dc2 21:30 Follow up: Response: No adverse reaction dc2 Intake: 22:20 IV: 1000ml; Total: 1000ml. dc2 Outcome: 21:12 Decision to Hospitalize by Provider. 7 02/18 00:06 Admitted to Tele accompanied by tech, room 223, with chart, Report called to FÁTIMA Alexandre dc2 Condition: stable 00:14 Patient left the ED. dc2 Signatures: Dispatcher [employer] EDFL Laura Allen ds1 Greta Campbell RN RN tw2 Lelia Shaikh RN RN vg1 Jarod Ferris MD MD [facility] Estiven Harrison tt3 Shawn Plasenciaise, RN RN dc2 Corrections: (The following items were deleted from the chart) 02/17 17:58 17:51 Chief complaint: Patient states: this sounds really crazy but i feel like there tw2 is pressure in my eye. and my said my pupils look dilated. i saw a neurologist the end of January because i was getting off balance. they scheduled the MRI but it is not until the . i do have a hx of migraines but they never cause me to have any vision problems. tw2
--- NOTE | 2021-02-17 21:13 | EDPHYS ---
Physician Documentation [facility] Name: Yohana Reeves Age: 40 yrs Sex: Female : 1980 Arrival Date: 02/17/2021 Time: 17:48 Bed 7 Private MD: ED Physician Jarod Ferris HPI: 02/17 19:05 This 40 yrs old Female presents to ER via Ambulatory with complaints of mh7 Blurred Vision. 19:05 The patient is experiencing blurred vision, to both eyes, caused by an unknown mh7 mechanism. Onset: The symptoms/episode began/occurred 2 day(s) ago. 19:05 Duration: the symptoms are intermittent. mh7 19:05 Aggravated by nothing. Alleviated by nothing. Associated signs and symptoms: Pertinent mh7 positives: headache, Pertinent negatives: chills, dizziness, ear ache, fever, runny nose. Patient does not utilize any form of vision correction. 19:05 Severity of symptoms: At their worst the symptoms were moderate last night, in the [facility] emergency department the symptoms are unchanged. 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 - Social history:: Smoking status: Patient denies any tobacco usage or history of. ROS: 19:05 Constitutional: Negative for fever, chills, and weight loss, ENT: Negative for injury, mh7 pain, and discharge, Neck: Negative for injury, pain, and swelling, Cardiovascular: Negative for chest pain, palpitations, and edema, Respiratory: Negative for shortness of breath, cough, wheezing, and pleuritic chest pain, Abdomen/GI: Negative for abdominal pain, nausea, vomiting, diarrhea, and constipation, Back: Negative for injury and pain, : Negative for injury, bleeding, discharge, and swelling, MS/Extremity: Negative for injury and deformity, Skin: Negative for injury, rash, and discoloration. 19:05 Psych: Negative for depression, anxiety, suicide ideation, homicidal ideation, and hallucinations, Allergy/Immunology: Negative for hives, rash, and allergies, Endocrine: Negative for neck swelling, polydipsia, polyuria, polyphagia, and marked weight changes, Hematologic/Lymphatic: Negative for swollen nodes, abnormal bleeding, and unusual bruising. 19:05 Neuro: Negative for altered mental status, dizziness, hearing loss, loss of consciousness, numbness, seizure activity, speech changes, syncope, near syncope, tingling, tinnitus, tremor, visual changes, weakness. Exam: 19:05 Constitutional: This is a well developed, well nourished patient who is awake, alert, mh7 and in no acute distress. Head/Face: Normocephalic, atraumatic. ENT: Nares patent. No nasal discharge, no septal abnormalities noted. Tympanic membranes are normal and external auditory canals are clear. Oropharynx with no redness, swelling, or masses, exudates, or evidence of obstruction, uvula midline. Mucous membranes moist. Neck: Trachea midline, no thyromegaly or masses palpated, and no cervical lymphadenopathy. Supple, full range of motion without nuchal rigidity, or vertebral point tenderness. No Meningismus. Chest/axilla: Normal chest wall appearance and motion. Nontender with no deformity. No lesions are appreciated. Cardiovascular: Regular rate and rhythm with a normal S1 and S2. No gallops, murmurs, or rubs. Normal PMI, no JVD. No pulse deficits. Respiratory: Lungs have equal breath sounds bilaterally, clear to auscultation and percussion. No rales, rhonchi or wheezes noted. No increased work of breathing, no retractions or nasal flaring. Abdomen/GI: Soft, non-tender, with normal bowel sounds. No distension or tympany. No guarding or rebound. No evidence of tenderness throughout. Back: No spinal tenderness. No costovertebral tenderness. Full range of motion. Skin: Warm, dry with normal turgor. Normal color with no rashes, no lesions, and no evidence of cellulitis. MS/ Extremity: Pulses equal, no cyanosis. Neurovascular intact. Full, normal range of motion. Neuro: Awake and alert, GCS 15, oriented to person, place, time, and situation. Cranial nerves II-XII grossly intact. Motor strength 5/5 in all extremities. Sensory grossly intact. Cerebellar exam normal. Normal gait. Psych: Awake, alert, with orientation to person, place and time. Behavior, mood, and affect are within normal limits. 20:25 Eyes: Periorbital structures: appear normal, Pupils: equal, round, and reactive to mh7 light and accomodation, Extraocular movements: intact throughout, Conjunctiva: normal, Corneas: are normal, Sclera: no appreciated abnormality, Lids and lashes: appear normal, funduscopic exam reveals no obvious abnormalities, Visual mohan: are intact, Nystagmus: is not appreciated, Intraocular pressure: right eye = 18mmHg, left eye = 18mmHg, No slit-lamp available. 20:45 Visual Acuity: I have reviewed the nursing documentation. [facility] Vital Signs: 17:51 BP 120 / 92; Pulse 112; Resp 17; Temp 97.5(TE); Pulse Ox 100% on R/A; Weight 77.11 kg tw2 (R); Height 5 ft. 2 in. (157.48 cm); Pain 8/10; 18:23 BP 132 / 100; Pulse 95; Resp 16; Pulse Ox 100% ; vg1 02/18 00:00 BP 123 / 88; Pulse 78; Resp 17; Temp 97.5; Pulse Ox 99% ; Pain 6/10; dc2 02/17 17:51 Body Mass Index 31.09 (77.11 kg, 157.48 cm) tw2 MDM: 02/17 21:09 Differential diagnosis: Corneal abrasion of both eyes. Corneal ulcer of both eyes. mh7 Foreign body in both eyes. Acute iritis of both eyes. Acute glaucoma in both eyes. Ultraviolet keratitis in both eyes. Data reviewed: vital signs, nurses notes, old medical records, lab test result(s), cardiac enzymes, CBC, electrolytes, urinalysis, urine drug screen, UPT: negative EKG, radiologic studies, CT scan, plain films. Data interpreted: Pulse oximetry: on room air. 21:09 Counseling: I had a detailed discussion with the patient and/or guardian regarding: the [facility] historical points, exam findings, and any diagnostic results supporting the discharge/admit diagnosis, the presence of at least one elevated blood pressure reading (>120/80) during this emergency department visit, lab results, radiology results, the need for further work-up and treatment in the hospital. Response to treatment: the patient's symptoms have mildly improved after treatment. 21:09 Physician consultation: Leif Qiu MD was contacted at 21:00, regarding patient's [facility] condition, and will see patient in inpatient room, would like admission per Dr. Mayra Carpenter MD. 21:12 Patient medically screened. [facility] 02/17 19:19 Order name: Basic Metabolic Panel [facility] 02/17 19:19 Order name: CBC with Diff [facility] 02/17 19:19 Order name: LFT's; Complete Time: 20:17 [facility] 02/17 19:19 Order name: Magnesium; Complete Time: 20:17 [facility] 02/17 19:19 Order name: NT PRO-BNP; Complete Time: 20:17 [facility] 02/17 19:19 Order name: PT-INR; Complete Time: 20:17 [facility] 02/17 18:03 Order name: CT Head Brain wo Cont; Complete Time: 19:10 sp3 02/17 19:19 Order name: Troponin (emerg Dept Use Only); Complete Time: 20:17 [facility] 02/17 19:19 Order name: UDS; Complete Time: 20:17 [facility] 02/17 19:19 Order name: ESR; Complete Time: 20:29 [facility] 02/17 19:20 Order name: Basic Metabolic Panel; Complete Time: 20:17 [facility] 02/17 19:20 Order name: CBC with Automated Diff; Complete Time: 20:29 [facility] 02/17 19:37 Order name: Urine Dipstick-Ancillary; Complete Time: 20:17 [facility] 02/17 21:39 Order name: COVID-19 SARS RT PCR (Document "Date of Onset" if Symptomatic); Complete tt3 Time: 00:04 02/17 19:19 Order name: XRAY Chest (1 view); Complete Time: 20:29 [facility] 02/17 19:19 Order name: EKG; Complete Time: 19:21 [facility] 02/17 19:19 Order name: Cardiac monitoring; Complete Time: 23:53 7 02/17 19:19 Order name: EKG - Nurse/Tech; Complete Time: 23:53 7 02/17 19:19 Order name: IV Saline Lock; Complete Time: 19:42 7 02/17 19:19 Order name: Labs collected and sent; Complete Time: 19:42 [facility] 02/17 19:19 Order name: O2 Per Protocol; Complete Time: 19:42 [facility] 02/17 19:19 Order name: O2 Sat Monitoring; Complete Time: 19:42 7 02/17 22:25 Order name: CONS Physician Consult; Complete Time: 23:53 [facility] 02/17 19:19 Order name: Urine Dipstick-Ancillary (obtain specimen); Complete Time: 19:43 [facility] 02/17 19:19 Order name: Urine Test (obtain specimen); Complete Time: 19:43 [facility] 02/17 19:20 Order name: Visual Acuity; Complete Time: 20:16 7 Administered Medications: 19:00 Drug: Reglan (metoCLOPramide) 10 mg Route: IVP; Site: right antecubital; dc2 20:00 Follow up: Response: Pain is decreased dc2 19:50 Drug: Benadryl (diphenhydrAMINE) 50 mg Route: IVP; Site: right antecubital; dc2 20:45 Follow up: Response: Pain is decreased dc2 21:00 Drug: Tetracaine Drops 0.5 % 1 drops Route: Ophthalmic; Site: both eyes; dc2 21:30 Follow up: Response: No adverse reaction dc2 21:15 Drug: Fluorescein Strip 2 strip Route: Ophthalmic; Site: both eyes; dc2 21:20 Drug: NS 0.9% 1000 ml Route: IV; Rate: 1000 ml; Infused Over: 1 hrs; Site: right dc2 antecubital; Delivery: Primary tubing; 22:20 Follow up: IV Status: Completed infusion; IV Intake: 1000ml dc2 21:20 Drug: Dilaudid (HYDROmorphone) 1 mg Route: IVP; Site: right antecubital; dc2 21:30 Follow up: Response: Pain is decreased dc2 21:23 Drug: Decadron - Dexamethasone 10 mg Route: IVP; Site: right antecubital; dc2 21:30 Follow up: Response: No adverse reaction dc2 Disposition Summary: 02/17/21 21:12 Hospitalization Ordered Hospitalization Status: Inpatient Admission [facility] Provider: Mayra Carpenter Location: Telemetry/MedSurg (Inpatient) [facility] Condition: Stable [facility] Problem: new mh7 Symptoms: have improved mh7 Bed/Room Type: Standard [facility] Room Assignment: 223(02/17/21 23:28) mw Diagnosis - Blurred Vision, Headache 7 - Gait Abnormality, Memory Abnormality [facility] Forms: - Medication Reconciliation Form [facility] - SBAR form [facility] Signatures: Dispatcher [employer] EDCristel Sandoval RN RN mw Greta Campbell RN RN tw2 Jraod Ferris MD MD [facility] Erinn, FÁTIMA De Paz RN dc2 Corrections: (The following items were deleted from the chart) 19:34 19:05 Severity of symptoms: in the emergency department the symptoms [place] [id number] 23:28 21:12 7 mw
--- NOTE | 2021-02-17 23:24 | P.HP ---
Certification for Inpatient Patient admitted to: Observation With expected LOS: <2 Midnights Patient will require the following post-hospital care: None Practitioner: I am a practitioner with admitting privileges, knowledge of patient current condition, hospital course, and medical plan of care. Services: Services provided to patient in accordance with Admission requirements found in Title 42 Section 412.3 of the Code of Federal Regulations Patient History Date of Service: 02/17/21 Reason for admission: blurry vision, unsteady gait History of Present Illness: Ms. Reeves is a 40 yo F with history of migraines and HTN who presents with blurry vision beginning on Thursday. She also reports dilated pupils and pressure behind both of her eyes as well as a severe headache not relieved with OTC medications. She says the blurry vision has continued to worsen. She has never had vision problems with her migraines in the past. She saw a neurologist last month for intermittent gait disturbance, balance issues and memory loss for the past few months. She is scheduled to have an MRI on 02/28. She also reports numbness in her left leg and trouble urinating. Her BP has also been mor elevated than usual. WBC 12.1, Cr 1.42, GFR 41. CT head without findings. Allergies No Known Drug Allergies Allergy (Verified 06/26/15 08:51) Unknown Home Medications: Zolpidem Tartrate [Ambien*] 10 mg PO BEDTIME 07/07/12 Nebivolol HCl [Bystolic] 5 mg PO DAILY 06/25/15 Topiramate [Topamax] 50 mg PO BEDTIME #60 tablet 06/26/15 - Past Medical/Surgical History Diabetic: No -: migraine -: HTN -: CA- 2003 -: DISC HERNIATION L5 S1 -: AFIB -: MYTRAL VALVE PROLAPSE -: GIB -: RLS -: depression/anxiety -: kidney stone -: x 3 -: exlap secondary to ce section - Family History Father -: Heart disease, Diabetes, Cancer Notes: . recently Mother -: Cancer Notes: ovarian - Social History Smoking Status: Former smoker (quit 6 months ago) Alcohol use: Yes CD- Drugs: No Caffeine use: Yes Place of Residence: Home Review of Systems 10-point ROS is otherwise unremarkable General: Unremarkable Eyes: Vision Change (double vision), As per HPI ENT: Unremarkable Respiratory: Unremarkable Cardiovascular: Unremarkable Gastrointestinal: Unremarkable Genitourinary: Urgency Musculoskeletal: Unremarkable Integumentary: Unremarkable Neurological: Numbness, Incoordination, Confusion, As per HPI Lymphatics: Unremarkable Physical Examination - Physical Exam General: Alert, In no apparent distress HEENT: Atraumatic, PERRLA, Mucous membr. moist/pink, EOMI, Sclerae nonicteric Neck: Supple, 2+ carotid pulse no bruit, No LAD, Without JVD or thyroid abnormality Respiratory: Clear to auscultation bilaterally, Normal air movement Cardiovascular: Regular rate/rhythm, Normal S1 S2 Gastrointestinal: Normal bowel sounds, No tenderness Musculoskeletal: No tenderness Integumentary: No rashes Neurological: Normal speech, Normal strength at 5/5 x4 extr, Normal tone, Normal affect Lymphatics: No axilla or inguinal lymphadenopathy - Studies Laboratory Data (last 24 hrs) 02/17/21 19:30: PT 11.6, INR 1.01 02/17/21 19:30: WBC 12.10 H, Hgb 14.4, Hct 43.0, Plt Count 257 02/17/21 19:30: Sodium 139, Potassium 3.8, BUN 12, Creatinine 1.42 H, Glucose 92, Magnesium 2.2, Total Bilirubin 0.3, AST 15, ALT 44, Alkaline Phosphatase 135 H Assessment and Plan - Problems (Diagnosis) (1) Headache Current Visit: Yes Status: Acute Qualifiers: Headache type: unspecified Headache chronicity pattern: acute headache Intractability: intractable Qualified Code(s): R51.9 - Headache, unspecified (2) Blurry vision Current Visit: Yes Status: Acute (3) HTN (hypertension) Current Visit: Yes Status: Chronic Qualifiers: Hypertension type: primary hypertension Qualified Code(s): I10 - Essential (primary) hypertension - Plan neurology consulted MRI, MRA brain without contrast in the AM hydralazine PRN for BP spikes pain control as needed reconcile and continue home medications thyroid, B13 levels pending gentle IVF hydration DVT ppx Discharge Plan: Home Plan to discharge in: 24 Hours - Advance Directives Does patient have a Living Will: No Does patient have a Durable POA for Healthcare: No - Code Status/Comfort Care Code Status Assessed: Yes (full code ) Critical Care: No Time Spent Managing Pts Care (In Minutes): 70
[2021-02-18] MEDS ORDERED: ACETAMINOPHEN 500 MG TAB PO PRN (00:17)
[2021-02-18] MEDS ORDERED: ONDANSETRON 4 MG/2 ML VIAL IV PRN (00:17)
[2021-02-18] MEDS ORDERED: HYDRALAZINE HCL 20 MG/ML VIAL IV PRN (00:17)
[2021-02-18] MEDS: HYDROCODONE/APAP 5/325 MG TAB PO PRN ×2 (01:28→07:23)
[2021-02-18] MEDS: NA CHLORIDE 0.9% 1,000 ML IV SCH ×2 (01:32→13:09)
[2021-02-18] MEDS ORDERED: HYDROMORPHONE HCL 0.5 MG/0.5 ML INJ IV STA (02:48)
[2021-02-18 04:36] LABS: Absolute Lymphocytes (CBC) 0.8 K/uL (0.7-4.9); Basophils % 0.1 % (0-1.3); Hematocrit 40.1 % (36.0-45.0); Lymphocytes % 8.9 % (15.3-44.8); MPV 9.7 fL (7.6-11.3); RBC Red Blood Cell Count 4.43 M/uL (3.86-4.86)
[2021-02-18 05:10] LABS: Albumin 3.5 g/dL (3.4-5.0); Bilirubin Total 0.3 mg/dL (0.2-1.0); Magnesium 2.2 mg/dL (1.8-2.4); Phosphorus 2.7 mg/dL (2.5-4.9); Potassium 4.4 mmol/L (3.5-5.1); Thyroid Stimulating Hormone 0.979 uIU/mL (0.360-3.740)
[2021-02-18 05:33] LABS: Blood Morphology Comment NOT SEEN (NOT SEEN); Platelet Estimate ADEQ
--- NOTE | 2021-02-18 08:20 | RAD REPORT ---
EXAM DESCRIPTION: MRI - MRA Head Wo Cont - 02/18/2021 8:00 am CLINICAL HISTORY: Blurred vision COMPARISON: None. TECHNIQUE: Magnetic resonance angiogram was performed. 3D MIPS reconstruction performed FINDINGS: The anterior cerebral, middle cerebral, posterior cerebral, distal internal carotid and ba silar arteries do not demonstrate a significant stenosis. origin right posterior cerebral artery An aneurysm is not displayed. IMPRESSION: No acute abnormality is displayed
--- NOTE | 2021-02-18 08:20 | RAD REPORT ---
EXAM DESCRIPTION: MRI - Brain Wo Cont - 02/18/2021 8:00 am CLINICAL HISTORY: Blurred vision COMPARISON: Head CT February 17, 2021 TECHNIQUE: Axial, sagittal, and coronal magnetic resonance images of the brain were obtained. FINDINGS: No significant abnormal signal within the brain Diffusion-weighted/ADC mapping does not reveal evidence of acute infarction. The ventricles are normal caliber. An extra-axial fluid collection is not noted. Fluid within the sinuses/mastoids is not seen IMPRESSION: No acute intracranial abnormality noted
[2021-02-18] MEDS: ENOXAPARIN 40 MG/0.4 ML SQ SCH (08:22)
[2021-02-18] MEDS: MORPHINE 2 MG/ML SYR IV PRN ×2 (12:00→19:59)
[2021-02-18] MEDS ORDERED: UBRELVY 100 MG PO SCH (15:00)
--- NOTE | 2021-02-18 16:27 | P.DS ---
Admission Date: 02/17/21 Discharge Date: 02/18/21 Disposition: ROUTINE DISCHARGE Discharge Condition: FAIR Reason for Admission: blurry vision, unsteady gait - Problems (1) Blurry vision Current Visit: Yes Status: Acute (2) Headache Current Visit: Yes Status: Acute Qualifiers: Headache type: unspecified Headache chronicity pattern: acute headache Intractability: intractable Qualified Code(s): R51.9 - Headache, unspecified (3) HTN (hypertension) Current Visit: Yes Status: Chronic Qualifiers: Hypertension type: primary hypertension Qualified Code(s): I10 - Essential (primary) hypertension (4) Complicated migraine Onset Date: 06/26/15 Current Visit: No Status: Acute Brief History of Present Illness: Ms. Reeves is a 40 yo F with history of migraines and HTN who presented with blurry vision. She also reports dilated pupils and pressure behind both of her eyes as well as a severe headache not relieved with OTC medications. She stated the blurry vision continued to worsen. She has never had vision problems with her migraines in the past. She saw a neurologist last month for intermittent gait disturbance, balance issues and memory loss for the past few months. She was scheduled to have an MRI on 02/28. She also reports numbness in her left leg and trouble urinating. Her BP has also been more elevated than usual. WBC 12.1, Cr 1.42, GFR 41. CT head without findings. Patient hospitalized for further management. Hospital Course: Patient placed on the observation on the medical floor. Headache and eye pain were controlled with IV morphine and oral [place]. MRI of the brain done did not show any acute disease. Patient seen by neurology-Dr. Qiu and complicated migraine suspected. Dr. Qiu recommended a trial of Ubrelvy. There was also a concern for acute glaucoma. Her blood pressure was well controlled during the hospital stay. Patient tolerated diet. She is ambulatory. No acute CVA. No evidence of multiple sclerosis. Patient deemed stable for discharge. She is given referral to see Dr. Pal for evaluation for the blurry vision and possible acute glaucoma. She will also follow with Dr. Fishman as an outpatient. Vital Signs/Physical Exam: Temp Pulse Resp BP Pulse Ox 97.2 F 67 16 123/86 97 02/18/21 16:00 02/18/21 16:00 02/18/21 16:00 02/18/21 16:00 02/18/21 16:00 General: Alert, In no apparent distress, Oriented x3 HEENT: Mucous membr. moist/pink Neck: JVD not distended Respiratory: Clear to auscultation bilaterally, Normal air movement Cardiovascular: Regular rate/rhythm, Normal S1 S2, No murmurs Gastrointestinal: Soft and benign, Non-distended, No tenderness Musculoskeletal: No swelling, No tenderness Integumentary: No rashes, No erythema Neurological: Normal speech, Normal strength at 5/5 x4 extr Laboratory Data at Discharge: WBC 8.80 K/uL (4.3-10.9) D 02/18/21 03:56 Hgb 13.3 g/dL (12.0-15.0) 02/18/21 03:56 Hct 40.1 % (36.0-45.0) 02/18/21 03:56 Plt Count 234 K/uL (152-406) 02/18/21 03:56 PT 11.6 SECONDS (9.5-12.5) 02/17/21 19:30 INR 1.01 02/17/21 19:30 Sodium 137 mmol/L (136-145) 02/18/21 03:56 Potassium 4.4 mmol/L (3.5-5.1) 02/18/21 03:56 BUN 11 mg/dL (7-18) 02/18/21 03:56 Creatinine 0.98 mg/dL (0.55-1.3) 02/18/21 03:56 Glucose 137 mg/dL (74-106) H 02/18/21 03:56 Phosphorus 2.7 mg/dL (2.5-4.9) 02/18/21 03:56 Magnesium 2.2 mg/dL (1.8-2.4) 02/18/21 03:56 Total Bilirubin 0.3 mg/dL (0.2-1.0) 02/18/21 03:56 AST 14 U/L (15-37) L 02/18/21 03:56 ALT 36 U/L (12-78) 02/18/21 03:56 Alkaline Phosphatase 123 U/L (45-117) H 02/18/21 03:56 Triglycerides 70 mg/dL (<150) 02/18/21 03:56 Cholesterol 176 mg/dL (<200) 02/18/21 03:56 HDL Cholesterol 44 mg/dL (40-60) 02/18/21 03:56 Cholesterol/HDL Ratio 4.00 02/18/21 03:56 Home Medications: Fluoxetine HCl [Prozac] 40 mg PO BID 02/18/21 Losartan Potassium [Cozaar] 25 mg PO DAILY 02/18/21 Venlafaxine HCl [Effexor XR] 150 mg PO DAILY 02/18/21 Diet: AHA Activity: Ad francine Followup: Brian Pal MD [OUTSIDE PHYSICIAN] - 1 Week NONE,NONE [Primary Care Provider] - 1-2 Weeks
--- NOTE | 2021-02-18 16:40 | P.PN ---
Subjective Date of Service: 02/18/21 Chief Complaint: blurry vision, unsteady gait Patient complaining of headache, bilateral eye pain. She denies any limb weakness. Also complaining of chest pain. Physical Examination - Vital Signs Temperature: 97.2 F Blood Pressure: 123/86 Pulse: 67 Respirations: 16 Pulse Ox (%): 97 - Physical Exam General: Alert, In no apparent distress, Oriented x3 HEENT: Normocephalic, Mucous membr. moist/pink Neck: Supple, JVD not distended Respiratory: Clear to auscultation bilaterally, Normal air movement Cardiovascular: No edema, Regular rate/rhythm, Normal S1 S2, No murmurs Gastrointestinal: Normal bowel sounds, Soft and benign, Non-distended, No tenderness Musculoskeletal: No swelling Integumentary: No rashes, No erythema Neurological: Normal speech, Normal strength at 5/5 x4 extr, Cranial nerves 3-12 intact - Studies Laboratory Data (last 24 hrs) 02/17/21 19:30: PT 11.6, INR 1.01 02/17/21 19:30: WBC 12.10 H, Hgb 14.4, Hct 43.0, Plt Count 257 02/17/21 19:30: Sodium 139, Potassium 3.8, BUN 12, Creatinine 1.42 H, Glucose 92, Magnesium 2.2, Total Bilirubin 0.3, AST 15, ALT 44, Alkaline Phosphatase 135 H Assessment And Plan - Current Problems (Diagnosis) (1) Blurry vision Current Visit: Yes Status: Acute (2) Headache Current Visit: Yes Status: Acute Qualifiers: Headache type: unspecified Headache chronicity pattern: acute headache Intractability: intractable Qualified Code(s): R51.9 - Headache, unspecified (3) HTN (hypertension) Current Visit: Yes Status: Chronic Qualifiers: Hypertension type: primary hypertension Qualified Code(s): I10 - Essential (primary) hypertension (4) Complicated migraine Onset Date: 06/26/15 Current Visit: No Status: Acute - Plan Dr. Qiu input appreciated. Patient started on Ubrelvy. Continue IV and oral opioids as needed for pain. Patient is ambulatory. MRI of the brain results reviewed and shows no acute disease. MRI of the brain unremarkable. Differential diagnosis: Complex migraine, acute glaucoma. Continue supportive measures. Ophthalmology consult. Blood pressure readings are within normal limits. Continue home antihypertensives. Resume home medications.
--- NOTE | 2021-02-18 18:25 | EKG ---
Test Date: 2021-02-17 Test Time: 19:54:48 Flotation Tender: GERARD MEASUREMENT RESULTS: Intervals: Rate: 87 IN: 116 QRSD: 76 QT: 382 QTc: 459 [place]: P: 72 IN: 116 QRS: 74 T: 74 INTERPRETIVE STATEMENTS: Normal sinus rhythm Normal ECG Compared to ECG 11/19/2020 23:17:22 No significant changes Electronically Signed On 02-18-21 18:23:34 PATHOLOGY LABORATORY DIRECTOR by Jr Ernandez
[2021-02-18] MEDS: FLUOXETINE 20 MG CAP PO SCH (20:00)
[2021-02-18] MEDS ORDERED: HOME MED 1 EA UNK (Fluoxetine Hcl [Prozac] 40 MG Capsule) PO SCH (21:00)
[2021-02-18 23:25] VITALS: BMI 31.1
--- NOTE | 2021-02-18 23:48 | CON ---
Reason For Consultation: Consultation called because of severe headache with blurred vision. History Of Present Illness: Ms. Reeves is a 40-year-old right-handed patient with multipl e medical problems including hypertension, migraine, myocardial infarction, atrial fibrillation, mitr al valve prolapse, restless legs syndrome, and depression who comes to [facility] with a 3- to 4-day history of pain and pressure behind the eyes along with blurred vision. Some difficulty wit h her balance, coordination, and was admitted for neurological workup. Her past history does include severe migraine with which she typically has nausea with some vomiting. Occasionally pounding pain rated at 10/10. She was seen most recently by neurologist, Dr. Dipti Peacock in [place], who did a work up including brain imaging, which did not reveal any significant abnormalities. Prior medications fo r headache prophylaxis include Topamax and Depakote along with Imitrex, which have not worked. At [facility], she received morphine without improvement in headaches. She was ruled out for str araceli as noted and blood work revealed initially slightly elevated white blood cell count, but after hy dration it was normal. Hemoglobin and hematocrit unremarkable. Chemistries showed initially creatin ine of 1.42 consistent with dehydration. Once rehydrated, creatinine is 0.98. Alkaline phosphatase was slightly elevated. Otherwise unremarkable basic metabolic panel with liver function studies. Ur inalysis was negative. Toxicology included a negative urine drug screen and COVID-19 test was negati ve. Her chest x-ray showed no significant abnormalities. MRA of her head showed origin in the right posterior cerebral artery, but was otherwise unremarkable. She was given a sample of Ubrelvy 100 mg for acute headache treatment. Medication is actually being noted by the pharmacy and the dina ent will receive it later today. Past Medical History: As noted. Allergies: NO KNOWN DRUG ALLERGIES. Medications: At home, Ambien 10 mg at bedtime, Bystolic 5 mg daily, Topamax 50 mg at bedtime. Past Surgical History: Three C-sections, exploratory lap following . Family History: Heart disease, diabetes, cancer in father who recently. Mother with can cer and ovarian cancer. Social History: Smoked, but quit 6 months ago. occasionally drinks alcohol and caffeinated beverage s. No IV drug abuse. Review of Systems: As indicated, she has had headaches in the past. Does have some incoordination, balance problems, co nfusion, disorientation, and otherwise no focal numbness or weakness. No respiratory issues. No car diovascular issues. No dermatological issues. She does report some urinary retention complaints. Physical Examination: Vital Signs: Blood pressure 120/86, pulse 67, respiratory rate 16, temperature 97.2, O2 saturation 9 7% to 98% on room air. Weight 170 pounds, height 5 feet 2 inches, BMI 31.1. General: Ms. Reeves is resting in bed. She is in mild distress because of headache. HEENT: She is normocephalic, atraumatic. Sclerae anicteric. Oropharynx is moist and pink. Neck: Supple. Chest: Clear. Heart: Regular. Extremities: Show no significant clubbing, cyanosis, or edema. Neurological: She is alert and oriented to person, place, situation and she follows all commands lise ropriately. She has no cranial nerve deficits. No focal motor, sensory, coordination, or gait abnor malities. Assessment: Ms. Reeves is a 40-year-old patient with significant migraine with aura. She has multi ple comorbid conditions as indicated above. She has failed multiple medications for headache prophyl axis and abortive treatment. Plan: 1.We will start the Ubrelvy 100 mg up to 2 daily for headache abortive treatment. 2.Once the patient is discharged and follow up in clinic, we will start Qulipta 60 mg daily for migr jayy prophylaxis. 3.She is instructed to drink 8 glasses of water daily. 4.She is instructed to start chelated magnesium 100 mg daily. 5.Maintain headache diary. 6.Follow up in Dr. Qiu's clinic 1 month after discharge. Please note, she does have slightly d ilated pupils bilaterally, and it is recommended that she be followed up by an medical director of hospice to rul e out closed angle glaucoma. LB/ALEKSANDR Voice ID: [id number] Report ID: [id number]
[2021-02-19] MEDS: HYDROCODONE/APAP 5/325 MG TAB PO PRN ×2 (01:03→08:52)
[2021-02-19 04:12] LABS: Absolute Lymphocytes (CBC) 3.3 K/uL (0.7-4.9); Basophils % 0.5 % (0-1.3); Hematocrit 39.3 % (36.0-45.0); MPV 9.5 fL (7.6-11.3); RBC Red Blood Cell Count 4.42 M/uL (3.86-4.86)
[2021-02-19 04:32] LABS: C-Reactive Protein 9.48 mg/L (<3.00); Magnesium 2.3 mg/dL (1.8-2.4); Potassium 4.2 mmol/L (3.5-5.1)
[2021-02-19] MEDS: MORPHINE 2 MG/ML SYR IV PRN ×2 (05:46→11:15)
[2021-02-19] MEDS ORDERED: POLYVINYL ALCOHOL 1.4% 15 ML EACH EYE PRN (07:54)
[2021-02-19] MEDS: ENOXAPARIN 40 MG/0.4 ML SQ SCH (08:50)
[2021-02-19] MEDS: FLUOXETINE 20 MG CAP PO SCH (08:51)
[2021-02-19] MEDS ORDERED: LOSARTAN POTASSIUM 50 MG TABLET PO SCH (09:00)
[2021-02-19] MEDS ORDERED: VENLAFAXINE HCL XR 75 MG CAP PO SCH (09:00)
[2021-02-19] MEDS ORDERED: HOME MED 1 EA UNK (Venlafaxine Hcl [Effexor Xr] 150 MG Cap.Er.24h) PO SCH (09:00)
[2021-02-19] MEDS ORDERED: KETOROLAC OPTHALMIC 5 ML BOT EACH EYE SCH (09:00)
[2021-02-19] MEDS ORDERED: HOME MED 1 EA UNK (Losartan Potassium [Cozaar] 25 MG Tablet) PO SCH (09:00)
[2021-02-19 09:49] VITALS: O2SAT 96
[2021-02-19] MEDS ORDERED: PROCHLORPERAZINE 5 MG TAB PO ONE (11:00)
[2021-02-19] MEDS ORDERED: KETOROLAC 30 MG/ML INJ IV ONE (11:45)
--- NOTE | 2021-02-19 14:03 | CON ---
History Of Present Illness: The patient is a white female who was admitted for severe eye pain and headache that was diagnosed as a complicated migraine and acute narrow angle glaucoma. She has been treated with morphine in the hospital. Her eye pain was 8 at the time of admission and is now 5 to 6 on a scale of 10. She states her blood pressure was high during the time of the admission, but not markedly high. She also has had blurred vision that became worse over the weekend. This started the Thursday before admission. She has not taken any eyedrops and has not been given any eyedrops for glaucoma. Her past ocular history is negative. Past ocular procedures are negative. Past Medical History: She has had GA due to blood loss associated with a C- section. She has had 3 C sections. She has had a GI bleed that was repaired. She has a history of migraine and depression. Allergies: SHE HAS NO KNOWN DRUG ALLERGIES. Medications: Include losartan 25 mg p.o. daily, Prozac 80 mg p.o. daily, Ambien 10 mg p.o. daily, Effexor 150 mg p.o. daily, and she has been given morphine and Dilaudid in the hospital for pain. Physical Examination: General: She is alert and oriented x3. Ear, Nose, and Throat: Negative. Lungs: Negative. Cardiovascular: Negative. GI: Negative. : Negative. Musculoskeletal: Negative. Skin and Breasts: Negative. Neurologic: She has a headache. Endocrine: Negative. Immunologic: Negative. Hematologic: Negative. Psychological: She does have depression. Social History: She quit smoking 6 months ago and is . Ocular Examination: On ocular examination, her near vision in each eye is 20/60. Her tactile intra-ocular pressure is within normal limits. Her pupils are sluggish, but reactive and to light and reactive at near. There is no afferent pupillary defect. Her versions are normal. She is orthophoric. Her confrontation mohan are normal in both eyes. On anterior segment examination, she has no lagophthalmos in either eye. Her conjunctiva is clear. There is no injection. Her cornea is clear in both eyes. Her anterior chambers formed. Her iris is round and she may have a mild degree of nuclear sclerotic cataract OU. Dilation was contraindicated due to the possibility of narrow angle, but with 28 diopter lens, was able to examine her optic nerve. She had no disc edema in either eye. Her cup-to-disc ratio was 0.6 with a vertical cup in the right and 0.5 in the left. Her macula appeared normal. Impression: The patient has eye pain of unknown etiology. She has also glaucoma suspect based on her optic nerve. The plan is to use Artificial Tears every 2 hours and Acular b.i.d. in both eyes and she is to follow up with Dr. Vera as soon as possible after discharge for gonioscopy and further evaluation. DANIEL/ALEKSANDR Voice ID: [id number] Report ID: [id number] JOB
--- NOTE | 2021-02-19 15:56 | P.DS ---
Admission Date: 02/18/21 Discharge Date: 02/19/21 Disposition: ROUTINE DISCHARGE Discharge Condition: FAIR Reason for Admission: blurry vision, unsteady gait Procedures: CT head (02/17): FINDINGS: An intracranial bleed is not seen . The ventricles are normal in caliber. No extra-axial fluid collection is noted. Fluid within the sinuses/ mastoids is not seen. IMPRESSION: No acute intracranial abnormality is seen. If patient's symptoms persist MRI of the brain would be recommended. CXR (02/17): IMPRESSION: No acute abnormalities displayed MRI brain (02/18): IMPRESSION: No acute intracranial abnormality noted MRI brain (02/18): IMPRESSION: No acute abnormality is displayed Problem list Ocular pain, with blurry vision, possible glaucoma Migraine, history of migraines Hypertension Brief History of Present Illness: 40 yo F with history of migraines and HTN who presented with blurry vision. She also reports dilated pupils and pressure behind both of her eyes as well as a severe headache not relieved with OTC medications. She stated the blurry vision continued to worsen. She has never had vision problems with her migraines in the past. She saw a neurologist last month for intermittent gait disturbance, balance issues and memory loss for the past few months. She was scheduled to have an MRI on 02/28. She also reports numbness in her left leg and trouble urinating. Her BP has also been more elevated than usual. WBC 12.1, Cr 1.42, GFR 41. CT head without findings. Patient hospitalized for further management. Hospital Course: Patient underwent extensive neuro evaluation as noted above. Imaging negative for any acute process. She was treated symptomatically with opioid pain medication with temporary relief. She had more improvement with Toradol and Compazine. Neurology was consulted, recommended Ubrelvy. Possibly had some improvement with this medication, however reported some slight chest discomfort 1 hour after taking his medication and did not want to continue on this. She was instructed to maintain a headache diary, to consider follow-up with Dr. Qiu. Given her significant migraine history, Dr. Reece also recommended to follow-up with Dr. Peter in [place], a migraine specialist. Ophthalmology was consulted under the recommendation with Dr. Qiu due to concerns/need to rule out closed angle glaucoma. Ophthalmology evaluated patient, noted possible glaucoma, patient was started on ketorolac eyedrops and artificial tears. Patient was deemed stable, and can follow-up LORENE in the office for further evaluation/testing. On day of discharge, patient's vision had improved, headache had improved, and was overall feeling better. Discussed possibly starting steroids/monitoring 1 more night. Patient stated she was ready and requested to be discharged home Vital Signs/Physical Exam: Temp Pulse Resp BP Pulse Ox 97.4 F 73 18 113/71 92 02/19/21 12:00 02/19/21 12:00 02/19/21 12:00 02/19/21 12:00 02/19/21 12:00 General: Alert, In no apparent distress, Oriented x3 HEENT: Mucous membr. moist/pink, EOMI, Sclerae nonicteric Neck: No LAD Respiratory: Clear to auscultation bilaterally Cardiovascular: No edema, Regular rate/rhythm Gastrointestinal: Soft and benign, Non-distended, No tenderness Musculoskeletal: No erythema, No tenderness Integumentary: No rashes, No significant lesion Neurological: Normal speech, Normal strength at 5/5 x4 extr, Normal affect Laboratory Data at Discharge: WBC 11.20 K/uL (4.3-10.9) H D 02/19/21 03:34 Hgb 13.2 g/dL (12.0-15.0) 02/19/21 03:34 Hct 39.3 % (36.0-45.0) 02/19/21 03:34 Plt Count 233 K/uL (152-406) 02/19/21 03:34 PT 11.6 SECONDS (9.5-12.5) 02/17/21 19:30 INR 1.01 02/17/21 19:30 Sodium 137 mmol/L (136-145) 02/19/21 03:34 Potassium 4.2 mmol/L (3.5-5.1) 02/19/21 03:34 BUN 13 mg/dL (7-18) 02/19/21 03:34 Creatinine 0.96 mg/dL (0.55-1.3) 02/19/21 03:34 Glucose 91 mg/dL (74-106) 02/19/21 03:34 Phosphorus 2.7 mg/dL (2.5-4.9) 02/18/21 03:56 Magnesium 2.3 mg/dL (1.8-2.4) 02/19/21 03:34 Total Bilirubin 0.3 mg/dL (0.2-1.0) 02/18/21 03:56 AST 14 U/L (15-37) L 02/18/21 03:56 ALT 36 U/L (12-78) 02/18/21 03:56 Alkaline Phosphatase 123 U/L (45-117) H 02/18/21 03:56 Troponin I < 0.02 ng/mL (0.0-0.045) 02/18/21 17:07 Triglycerides 70 mg/dL (<150) 02/18/21 03:56 Cholesterol 176 mg/dL (<200) 02/18/21 03:56 HDL Cholesterol 44 mg/dL (40-60) 02/18/21 03:56 Cholesterol/HDL Ratio 4.00 02/18/21 03:56 Home Medications: Fluoxetine HCl [Prozac] 40 mg PO BID 02/18/21 Losartan Potassium [Cozaar] 25 mg PO DAILY 02/18/21 Venlafaxine HCl [Effexor XR] 150 mg PO DAILY 02/18/21 Ketorolac Opth [Acular 0.5% Opth Drops*] 1 drops EACH EYE BID bot 02/19/21 POLYV ALC 1.4% Opth [Liquiflim Tears 1.4%*] 1 drops EACH EYE Q2HP PRN btl 02/19/21 Diet: AHA Activity: Ad francine Followup: Brian Pal MD [OUTSIDE PHYSICIAN] - 1 Week NONE,NONE [Primary Care Provider] - 1-2 Weeks Time spent managing pt's care (in minutes): 45
[2021-02-19 18:50] VITALS: BP 97/61; TEMP 97.3
--- NOTE | 2021-02-20 11:25 | EKG ---
Test Date: 2021-02-18 Test Time: 16:59:18 Clocksmith: DARRELL MEASUREMENT RESULTS: Intervals: Rate: 72 WI: 120 QRSD: 78 QT: 406 QTc: 444 [place]: P: 75 WI: 120 QRS: 73 T: 69 INTERPRETIVE STATEMENTS: Normal sinus rhythm Nonspecific T wave abnormality Abnormal ECG Compared to ECG 02/17/2021 19:54:48 T-wave abnormality now present Electronically Signed On 02-20-21 11:20:53 TRANSPORTATION EQUIPMENT PAINTER by Jr Ernandez
--- NOTE | 2021-02-20 11:25 | EKG ---
Test Date: 2021-02-18 Test Time: 17:01:08 [employer]: DARRELL MEASUREMENT RESULTS: Intervals: Rate: 128 OR: QRSD: 136 QT: 162 QTc: 236 [place]: P: OR: QRS: 213 T: 0 INTERPRETIVE STATEMENTS: Less than 4 QRS complexes detected, no interpretation possible Compared to ECG 02/18/2021 16:59:18 Sinus rhythm no longer present T-wave abnormality no longer present Electronically Signed On 02-20-21 11:20:52 TAPERING MACHINE OPERATOR by Jr Ernandez
== END 2021-02-19 16:45 | disposition home or self-care (01) | DRG 125 ==
LOC: ER 17:47 → ERHOLD 22:23 → 2ND 02-18 00:03 → OBSVTOIN 02-18 18:21
PROVIDERS: ADMIT Internal Medicine; ATTEND Hospitalist
DX: H40.213 Acute angle-closure glaucoma, bilateral (principal); G43.109 Migraine with aura, not intractable, without status migrainosus; H57.13 Ocular pain, bilateral; I10 Essential (primary) hypertension; I25.2 Old myocardial infarction; Z79.899 Other long term (current) drug therapy; Z87.891 Personal history of nicotine dependence; Z20.822 Contact with and (suspected) exposure to COVID-19
CPT/HCPCS: 36415; 70450; 70544; 70551; 71045; 80048; 80053; 80061; 80076; 80307; 81003; 82607; 83735; 83880; 84100; 84439; 84443; 84484; 85025; 85610; 85652; 86140; 93005; 94760; 96361; 96374; 96375; 99285; G0378; J1170; J1200; J1650; J2270; J2405; J2765; J7030; Q0164; U0003

== ENCOUNTER 2021-06-28 11:52 | Emergency (ER) | payer BC, OTHER ==
--- OUTSIDE RECORDS SUMMARY | 2021-06-28 11:57 | XMS REPORT | Continuity of Care Document ---
:1980 Author Organization [facility] t Address [address] [place] [address] Dr. [address]. [address] [place] [address] Care Team Providers Name Role Phone Pcp, Does Not Have A Primary Care Physician [facility] Main Attending Clinician Unavailable Flaquita MALDONADO Attending Clinician FLAQUITA Attending Clinician Unavailable Doctor Unassigned, Name Attending Clinician Unavailable Celio Attending Clinician Unavailable Jay Pierce Attending Clinician [phone] Vikas LASSITER Attending Clinician Edis Cardozo DO Attending Clinician Travis MALDONADO Attending Clinician Rachelle MALDONADO Attending Clinician Bubba LLOYD S Attending Clinician James LASSITER B Attending Clinician Stacey RAMIREZ Attending Clinician Unavailable Celio Admitting Clinician Unavailable Rachelle MALDONADO Admitting Clinician Stacey RAMIREZ Admitting Clinician Unavailable Payers Payer Name Policy Type Policy Number Effective Date Expiration Date S freddy TML [employer] CLAIMS [id number] 2017 00:00:00 TML - [facility] [id number] 2017 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 PLAN 00:00:00 [facility] TRUE CHOICE (PPO) Problems Condition Condition Condition Status Onset Resolution Last Treating Co mments Source Name Details Category Date Date Treatment Clinician Date Tachycardi Tachycardi Disease Active 2019-04 U nivers a a 0-28 ity of 00:00: [place] [address] Medical Branch Family Family Disease Active 2019-04 Univers history of history of 0-28 it y of early CAD early CAD 00:00: [address] Branch Chest pain Chest pain Disease Active 2019-04 U nivers 0-27 ity of 00:00: [place] [address] Medical Branch Obesity Obesity Disease Active 2019-04 Univers (BMI (BMI 0-27 ity of 30-39.9) 30-39.9) 00:00: [place] [address] Medical Branch RLQ RLQ Disease Active 2018- Univers abdominal abdominal 9-24 ity of pain pain 00:00: [address] Branch Anxiety Anxiety Disease Active 2019- Univers 9-24 ity of 00:: [place] [address] Medical Branch Chronic Chronic Disease Active 2018- Univers low back low back 9-24 ity of pain pain 00:00: [address] Allergies, Adverse Reactions, Alerts Allergy Allergy Status Severity Reaction(s) Onset Inactive Treating Comm ents Source Name Type Date Date Clinician ally DA Active [facility] subsalic 7-29 Clear ylate 00:00: [address] NO KNOWN Drug Active Univers ALLERGIE Class ity of S [facility] Social History Social Habit Start Date Stop Date Quantity Comments Source Exposure to Not sure [facility] SARS-CoV-2 [place] [facility] (event) Branch Alcohol intake 2020-07-23 2020-07-23 Current drinker of Un iversity of 00:00:00 00:00:00 alcohol (finding) [place] [facility] ed[facility] Branch History SDOH 2020-02-08 2020-02-08 99 University o f Alcohol Frequency 00:00:00 00:00:00 [place] [facility] ed[facility] History SDOH 2020-02-08 2020-02-08 99 University o f Alcohol Std 00:00:00 00:00:00 [place] [facility] Drinks Branch History SDOH 2020-02-08 2020-02-08 99 University o f Alcohol Binge 00:00:00 00:00:00 [place] [facility] Tobacco Comment 2020-02-07 2020-02-07 rarely Universit y of 00:00:00 00:00:00 [facility] Alcohol Comment 2020-02-07 2020-02-07 occasionally Univers ity of 00:00:00 00:00:00 [facility] Cigarettes smoked 2020-01-24 2020-01-24 Univers ity of current (pack per 00:00:00 00:00:00 [facility] ) - Reported [place] Tobacco use and 2019-01-04 2019-01-04 Never used Universit y of exposure 00:00:00 00:00:00 [facility] History of 2018-12-04 Cigarette Smoker Universi ty of tobacco use 00:00:00 [facility] Sex Ass[birth year] At [birth year] Universit y of 00:00:00 00:00:00 [facility] Smoking Status Start Date Stop Date Source Former smoker 2019-01-04 00:00:00 2019-01-04 00:00:00 Universi ty of [facility] Medications Ordered Filled Start Stop Current Ordering Indication Dosage Frequency Signature Comments Components Source Medication Medication Date Date Medication? Clinician (SIG) Name Name morpHINE 2020- No 4mg 4 mg, Slow Un carol injection 4 07-23 IV Push, ity of mg 19:15: 18:10 ONCE, 1 [place] 00 :00 dose, [facility] Medical 07/23/20 at [place] 1415, STAT ondansetron 2020- No 4mg 4 mg, Slow Univers (ZOFRAN 07-23 IV Push, ity of (PF)) 18:00: 16:55 ONCE, 1 [place] injection 4 00 :00 dose, Mon Med ical mg 07/23/20 at [place] 1300, LORENE ketorolac 2020- No 30mg 30 mg, Unive rs (TORADOL) 07-23 Slow IV ity of injection 18:00: 16:55 Push, [place] 30 mg 00 :00 ONCE, 1 Medical dose, [facility] 07/23/20 at 1300, LORENE
Fa culty member approving Restricted medication : MEGAN LYONS iohexol 2020- No [id number] 120mL 120 mL, Univers (OMNIPAQUE 07-23 Intravenou it y of 350 17:15: 17:10 s, ONCE, 1 [place] BULK-150 00 :00 dose, Mon Medica l mL) 07/23/20 at [place] injection 1215, 120 mL Routine ondansetron Yes [id number] 4mg Take 1 Univers (ZOFRAN 4-12 tablet by ity of ODT) 4 mg 00:00: mouth [place] disintegrat 00 every 8 Medic al ing tablet (eight) Branch hours as needed for Nausea and Vomiting (N/V). ondansetron Yes [id number] 4mg Take 1 Univers (ZOFRAN 4-12 tablet by ity of ODT) 4 mg 00:00: mouth [place] disintegrat 00 every 8 Medic al ing tablet (eight) Branch hours as needed for Nausea and Vomiting (N/V). ondansetron Yes [id number] 4mg Take 1 Univers (ZOFRAN 4-12 tablet by ity of ODT) 4 mg 00:00: mouth [place] disintegrat 00 every 8 Medic al ing tablet (eight) Branch hours as needed for Nausea and Vomiting (N/V). butorphanol 2020- No 1mg 1 mg, IV U nivers (STADOL) 04-28 Push, ity of injection 1 00:00: 23:22 ONCE, 1 [place] mg 00 :00 dose, Fri Medical 04/27/20 at Branch 1800, Routine proMETHazin 2020- No 25mg 25 mg, IV Univers e 04-27 Piggyback, ity of (PHENERGAN) 22:45: 22:45 ONCE, 1 [place] 25 mg in 00 :00 dose, Fri Medica l NaCl 0.9% 04/27/20 at [facility] ch (NS) 50 mL 1645, 50 piggyback mL LORazepam 2020- No 1mg 1 mg, Slow U nivers (ATIVAN) 04-27 IV Push, ity of injection 1 21:30: 20:41 ONCE, 1 [place] mg 00 :00 dose, Fri Medical 04/27/20 at Branch 1530, STAT butalbital- 2020- No 1{tbl} 1 tablet, Univers acetaminoph 04-27 Oral, ity of en-caff 21:30: 20:40 ONCE, 1 [place] (ESGIC) 00 :00 dose, Fri Medical 50-325-40 04/27/20 at Bran ch mg tablet 1 1530, tablet Routine haloperidol 2020- No 2.5mg 2.5 mg, U nivers lactate 04-27 Intravenou ity o f (HALDOL) 20:30: 19:28 s, ONCE, 1 [place] injection 00 :00 dose, Fri Medic al 2.5 mg 04/27/20 at Branch 1430, STAT SUMAtriptan 2020- No 6mg 6 mg, Univ ers (IMITREX) 04-27 Subcutaneo ity of injection 6 20:30: 19:32 us, ONCE, [place] mg 00 :00 1 dose, Medical Fri Branch 04/27/20 at 1430, LORENE ondansetron 2020- No 4mg 4 mg, Slow Univers (ZOFRAN 04-27 IV Push, ity of (PF)) 19:45: 18:40 ONCE, 1 [place] injection 4 00 :00 dose, Fri Med ical mg 04/27/20 at Branch 1345, LORENE butorphanol 2020- No 1mg 1 mg, IV U nivers (STADOL) 04-27 Push, ity of injection 1 19:45: 18:40 ONCE, 1 [place] mg 00 :00 dose, Fri Medical 04/27/20 at Branch 1345, Routine dexamethaso 2020- No 10mg 10 mg, IV Univers ne 04-27 Push, ity of (DECADRON 18:45: 17:53 ONCE, 1 [place] PHOSPH[place]) 00 :00 dose, Fri Medi riky injection 04/27/20 at Bran ch 10 mg 1245, STAT diphenhydrA 2020- No 25mg 25 mg, Uni vers MINE 04-27 Slow IV ity of (BENADRYL) 18:45: 17:53 Push, [place] injection 00 :00 ONCE, 1 Medical 25 mg dose, Fri Branch 04/27/20 at 1245, STAT metoclopram 2020- No 10mg 10 mg, Uni vers adarsh HCl 04-27 Slow IV ity of (REGLAN) 18:45: 17:53 Push, [place] injection 00 :00 ONCE, 1 Medical 10 mg dose, Fri Branch 04/27/20 at 1245, LORENE NaCl 0.9% 2020- No 1000mL at 999 Uni vers (NS) bolus 04-27 mL/hr, ity of infusion 18:00: 19:25 1,000 mL, [place] 1,000 mL 00 :00 IV Medical Infusion, Branch ONCE, 1 dose, 04/27/20 at 1200, LORENE ketorolac 2020- No 30mg 30 mg, Unive rs (TORADOL) 04-27 Slow IV ity of injection 18:00: 17:53 Push, [place] 30 mg 00 :00 ONCE, 1 Medical dose, Fri Branch 04/27/20 at 1200, LORENE
Fa culty member approving Restricted medication : ANN CARDOZO nebivolol 2019-04 Yes Take by [facility] ers HCl 0-28 mouth ity of (BYSTOLIC 19:30: daily. [place] ORAL) Medical Branch zolpidem 2019-04 Yes 10mg Take 10 mg Uni vers (AMBIEN) 10 0-28 by mouth ity of mg tablet 19:30: at [place] [address] bedtime. Medical Branch FLUoxetine 2019-04 Yes 80mg Take 80 mg U nivers (PROZAC) 40 0-28 by mouth ity of mg capsule 19:30: daily. [place] [address] Medical Branch ARIPiprazol 2019-04 Yes 5mg Take 5 mg U nivers e (ABILIFY) 0-28 by mouth ity of 5 mg tablet 19:30: daily. [place] HYDROcodone 2019-04 Yes 1{tbl} Take 1 Un carol -acetaminop 0-28 tablet by ity of hen (NORCO) 19:30: mouth 2 [place] 5-325 mg 22 (two) Medical tablet times Branch daily. venlafaxine 2019-04 Yes 75mg Take 75 mg Univers XR (EFFEXOR 0-28 by mouth ity of XR) 75 mg 19:30: daily with [place] 24 hr 22 breakfast. Medical capsule Branch nebivolol 2019-04 Yes Take by [facility] ers HCl 0-28 mouth ity of (BYSTOLIC 19:30: daily. [place] ORAL) 22 Medical Branch zolpidem 2019-04 Yes 10mg Take 10 mg Uni vers (AMBIEN) 10 0-28 by mouth ity of mg tablet 19:30: at [place] [address] bedtime. Medical Branch FLUoxetine 2019-04 Yes 80mg Take 80 mg U nivers (PROZAC) 40 0-28 by mouth ity of mg capsule 19:30: daily. [place] [address] Medical Branch ARIPiprazol 2019-04 Yes 5mg Take 5 mg U nivers e (ABILIFY) 0-28 by mouth ity of 5 mg tablet 19:30: daily. [place] 22 Medical Branch HYDROcodone 2019-04 Yes 1{tbl} Take 1 Un carol -acetaminop 0-28 tablet by ity of hen (NORCO) 19:30: mouth 2 [place] 5-325 mg 22 (two) Medical tablet times Branch daily. venlafaxine 2019-04 Yes 75mg Take 75 mg Univers XR (EFFEXOR 0-28 by mouth ity of XR) 75 mg 19:30: daily with [place] 24 hr 22 breakfast. Medical capsule Branch nebivolol 2019-04 Yes Take by Univ ers HCl 0-28 mouth ity of (BYSTOLIC 19:30: daily. [facility]) Medical Branch zolpidem 2019-04 Yes 10mg Take 10 mg Uni vers (AMBIEN) 10 0-28 by mouth ity of mg tablet 19:30: at [place] [address] bedtime. Medical Branch FLUoxetine 2019-04 Yes 80mg Take 80 mg U nivers (PROZAC) 40 0-28 by mouth ity of mg capsule 19:30: daily. [place] [address] Medical Branch ARIPiprazol 2019-04 Yes 5mg Take 5 mg U nivers e (ABILIFY) 0-28 by mouth ity of 5 mg tablet 19:30: daily. [facility] 22 Medical Branch HYDROcodone 2019-04 Yes 1{tbl} Take 1 Un carol -acetaminop 0-28 tablet by ity of hen (NORCO) 19:30: mouth 2 [place] 5-325 mg 22 (two) Medical tablet times Branch daily. venlafaxine 2019-04 Yes 75mg Take 75 mg Univers XR (EFFEXOR 0-28 by mouth ity of XR) 75 mg 19:30: daily with [place] 24 hr 22 breakfast. Medical capsule Branch nebivolol 2019-04 Yes Take by [facility] ers HCl 0-28 mouth ity of (BYSTOLIC 14:30: daily. [place] ORAL) Medical Branch zolpidem 2019-04 Yes 10mg Take 10 mg Uni vers (AMBIEN) 10 0-28 by mouth ity of mg tablet 14:30: at [place] [address] bedtime. Medical Branch FLUoxetine 2019-04 Yes 80mg Take 80 mg U nivers (PROZAC) 40 0-28 by mouth ity of mg capsule 14:30: daily. [place] [address] Medical Branch ARIPiprazol 2019-04 Yes 5mg Take 5 mg U nivers e (ABILIFY) 0-28 by mouth ity of 5 mg tablet 14:30: daily. [facility] 22 Medical Branch HYDROcodone 2019-04 Yes 1{tbl} Take 1 Un carol -acetaminop 0-28 tablet by ity of hen (NORCO) 14:30: mouth 2 [place] 5-325 mg 22 (two) Medical tablet times Branch daily. venlafaxine 2019-04 Yes 75mg Take 75 mg Univers XR (EFFEXOR 0-28 by mouth ity of XR) 75 mg 14:30: daily with [place] 24 hr 22 breakfast. Medical capsule Branch nebivolol 2019-04 Yes Take by [facility] ers HCl 0-28 mouth ity of (BYSTOLIC 14:30: daily. [place] ORAL) Medical Branch zolpidem 2019-04 Yes 10mg Take 10 mg Uni vers (AMBIEN) 10 0-28 by mouth ity of mg tablet 14:30: at [place] [address] bedtime. Medical Branch FLUoxetine 2019-04 Yes 80mg Take 80 mg U nivers (PROZAC) 40 0-28 by mouth ity of mg capsule 14:30: daily. [place] [address] Medical Branch ARIPiprazol 2019-04 Yes 5mg Take 5 mg U nivers e (ABILIFY) 0-28 by mouth ity of 5 mg tablet 14:30: daily. [facility] 22 Medical Branch HYDROcodone 2019-04 Yes 1{tbl} Take 1 Un carol -acetaminop 0-28 tablet by ity of hen (NORCO) 14:30: mouth 2 [place] 5-325 mg 22 (two) Medical tablet times Branch daily. venlafaxine 2019-04 Yes 75mg Take 75 mg Univers XR (EFFEXOR 0-28 by mouth ity of XR) 75 mg 14:30: daily with [place] 24 hr 22 breakfast. Medical capsule Branch FLUoxetine 2019-04 Yes 80mg 80 mg, Unive rs (PROZAC) 0-28 Oral, ity of capsule 80 14:00: DAILY, [place] mg 00 First dose Medical on Thu02/08/20 at 0900, Until Discontinu ed, Routine ARIPiprazol 2019-04 Yes 5mg 5 mg, Unive rs e (ABILIFY) 0-28 Oral, ity of tablet 5 mg 14:00: DAILY, [place] 00 First dose Medical on Thu02/08/20 at 0900, Until Discontinu ed, Routine pantoprazol 2019-04 Yes 40mg 40 mg, Univ ers e 0-28 Oral, ity of (PROTONIX) 14:00: DAILY, [place] EC tablet 00 First dose Medi riky 40 mg on Thu02/08/20 at 0900, Until Discontinu ed, Routine aspirin 2019-04 Yes 81mg 81 mg, Univers chewable 0- Oral, ity of tablet 81 14:00: DAILY, [place] mg 00 First dose Medical on Thu02/08/20 at 0900, Until Discontinu ed, Routine enoxaparin 2019-04 Yes 40mg 40 mg, Unive rs (LOVENOX) 0- Subcutaneo ity of injection 14:00: us, DAILY, [place] 40 mg 00 First dose Medical on Thu02/08/20 at 0900, Until Discontinu ed, Routine venlafaxine 2019-04 Yes 150mg 150 mg, Un carol XR (EFFEXOR 0-28 Oral, QAM ity of XR) 24 hr 13:00: WITH [place] capsule 150 00 BREAKFAST, Me dical mg First dose Branch on Thu02/08/20 at 0800, Until Discontinu ed, Routine zolpidem 2019-04 Yes 10mg 10 mg, Univers (AMBIEN) 0-28 Oral, QHS, ity o f tablet 10 02:00: First dose [place] mg 00 on [facility] 02/07/20 Branch at 2100, Until Discontinu ed, Routine NaCl 0.9% 2019-04 2020- No IV Univers (NS) IV 0-02-07 Infusion, ity of infusion 02:00: 09:59 at 125 [place] 00 :00 mL/hr, Medical CONTINUOUS Branch , Starting Thu02/07/20 at 2100, Until Thu02/08/20 at 0459, Routine HYDROcodone 2019-04 Yes 1{tbl} 1 tablet, Univers -acetaminop 0 Oral, BID, it y of hen (NORCO 01:00: First dose [place] 5) 5-325 mg 00 on [facility] Medica l tablet 1 02/07/20 Branch tablet at 2000, Until Discontinu ed, Routine nitroglycer 2019-04 Yes .4mg 0.4 mg, Uni vers in Sublingual ity of (NITROSTAT) 00:22: , Q5MIN [place] sublingual 18 PRN, Medical tablet 0.4 Starting Branc h mg 02/07/20 at 192, Until Discontinu ed, Routine, Chest pain morpHINE 2019-04 2020- No 2mg 2 mg, Slow Un carol injection 2 02-08 IV Push, ity of mg 00:21: 00:20 Q4[facility], [place] 44 :44 Starting Medical [facility] Branch 02/07/20 at 192, Until Thu02/08/20 at 192, Routine, Pain (scale 7-10), Chest pain acetaminoph 2019-04 2020- No 1{tbl} 1 tablet, Univers en-codeine 02-09 Oral, ity of (TYLENOL 00:21: 00:20 Q6[facility], [place] #3) 300-30 33 :33 Starting Medic al mg tablet 1 [facility] tablet 02/07/20 at 192, Until [place] 02/09/20 at 192, Routine, Pain (scale 4-6) acetaminoph 2019-04 Yes 650mg 650 mg, Un carol en 0 Oral, ity of (TYLENOL) 00:21: [place], [place] tablet 650 31 Starting Medic al mg [facility] 02/07/20 at 192, Until Discontinu ed, Routine, Pain (scale 1-3) FENTanyl PF 2019-04 2020- No 100ug 100 mcg, Univers (SUBLIMAZE 02-06 Slow IV ity o f (PF)) 23:30: 22:26 Push, [place] injection 00 :00 ONCE, 1 Medical 100 mcg dose, [facility] Branch 02/07/20 at 1830, STAT nitroglycer 2019-04- No .4mg 0.4 mg, Un carol in 02-06 Sublingual ity of (NITROSTAT) 22:30: 21:30 , ONCE, 1 [place] sublingual 00 :00 dose, [facility] Medi riky tablet 0.4 02/07/20 Branc h mg at 1730, LORENE acetaminoph 2019-04- No 975mg 975 mg, U nivers en 02-06 Oral, ity of (TYLENOL) 22:30: 21:30 ONCE, 1 [facility] 975 00 :00 dose, [facility] Medi riky mg 02/07/20 Branch at 1730, LORENE iohexol 2019-04 2020- No 120mL 120 mL, Unive rs (OMNIPAQUE 02-06 Intravenou it y of 350 21:30: 21:30 s, ONCE, 1 [place] BULK-150 00 :00 dose, Tue Medica l mL) 02/07/20 Branch injection at 1630, 120 mL Routine ondansetron 2019-04 2020- No 4mg 4 mg, Slow Univers (ZOFRAN 002-06 IV Push, ity of (PF)) 21:30: 20:30 ONCE, 1 [place] injection 4 00 :00 dose, [facility] Med ical mg 02/07/20 Branch at 1630, LORENE morpHINE 2019-04 2020- No 4mg 4 mg, Slow Un carol injection 4 02-06 IV Push, ity of mg 21:30: 20:30 ONCE, 1 [place] 00 :00 dose, [facility] Medical 02/07/20 Branch at 1630, STAT morpHINE 2019-04 2020- No 4mg 4 mg, Slow Un carol injection 4 0-14 01-24 IV Push, ity of mg 02:15: 01:13 ONCE, 1 [place] 00 :00 dose, [facility] Medical 01/24/20 Branch at 2115, STAT ondansetron 2019-04 2020- No 4mg 4 mg, Slow Univers (ZOFRAN 0-14 - IV Push, ity of (PF)) 02:15: 01:13 ONCE, 1 [place] injection 4 00 :00 dose, Tu Med ical mg 01/24/20 Branch at 2115, [place] HYDROcodone 2019-04 Yes 1{tbl} Take 1 Un carol -acetaminop 0-14 tablet by ity of hen (NORCO) 02:13: mouth 2 [place] 5-325 mg 41 (two) Medical tablet times Branch daily. venlafaxine 2019-04 Yes 75mg Take 75 mg Univers XR (EFFEXOR 0-14 by mouth ity of XR) 75 mg 02:13: daily with [place] 24 hr 41 breakfast. Medical capsule Branch ondansetron 2019-04 2020- No 4mg 4 mg, Slow Univers (ZOFRAN 0-14 10-13 IV Push, ity of (PF)) 01:00: 23:47 ONCE, 1 [place] injection 4 00 :00 dose, [facility] Med ical mg 01/24/20 Branch at 1999, LORENE morpHINE 2019-04 2020- No 4mg 4 mg, Slow Un carol injection 4 0-14 10-13 IV Push, ity of mg 01:00: 23:47 ONCE, 1 [place] 00 :00 dose, Tu Medical 01/24/20 Branch at 2000, STAT iohexol 2019-04 2020- No 120mL 120 mL, Unive rs (OMNIPAQUE 0-13 10-13 Intravenou it y of 350 23:45: 23:45 s, ONCE, 1 [place] BULK-150 00 :00 dose, Tue Medica l mL) 01/24/20 Branch injection at 1845, 120 mL Routine zolpidem 2019-04 Yes 10mg Take 10 mg Uni vers (AMBIEN) 10 0-13 by mouth ity of mg tablet 22:12: at [place] [address] bedtime. Medical Branch FLUoxetine 2019-04 Yes 80mg Take 80 mg U nivers (PROZAC) 40 0-13 by mouth ity of mg capsule 22:12: daily. [place] [address] Medical Branch ARIPiprazol 2019-04 Yes 5mg Take 5 mg U nivers e (ABILIFY) 0-13 by mouth ity of 5 mg tablet 22:12: daily. [place] hydrOXYzine 2019-04 2020- No 25mg Take 25 mg Univers 25 mg 0-13 10-13 by mouth ity of tablet 22:11: 00:00 at bedtime [place] 29 :00 as needed Medical for Branch Itching or Anxiety. HYDROcodone 2019- 2020- No 1{tbl} Take 1 U nivers -acetaminop 0-13 10-13 tablet by it y of hen 7.5-325 22:11: 00:00 mouth 2 [place] mg per 07 :00 (two) Medical tablet times Branch daily. traMADoL 50 2019-04 Yes [id number] 50mg Take 1 Univ ers mg tablet 0-13 tablet by ity o f 00:00: mouth [place] 00 every 6 Medical (six) Branch hours as needed for Pain (scale 4-6). Indication s: acute pain ondansetron 2019- Yes [id number] 8mg Take 2 Univers 4 mg tablet 0-13 tablets by it y of 00:00: mouth [place] 00 every 8 Medical (eight) Branch hours as needed for Nausea and Vomiting (N/V). ondansetron 2019-04 Yes [id number] 8mg Take 2 Univers 4 mg tablet 0-13 tablets by it y of 00:00: mouth [place] 00 every 8 Medical (eight) Branch hours as needed for Nausea and Vomiting (N/V). ondansetron 2019-04 Yes [id number] 8mg Take 2 Univers 4 mg tablet 0-13 tablets by it y of 00:00: mouth [place] 00 every 8 Medical (eight) Branch hours as needed for Nausea and Vomiting (N/V). ondansetron 2019- Yes [id number] 8mg Take 2 Univers 4 mg tablet 0-13 tablets by it y of 00:00: mouth [place] 00 every 8 Medical (eight) Branch hours as needed for Nausea and Vomiting (N/V). ondansetron 2019-04 Yes [id number] 8mg Take 2 Univers 4 mg tablet 0-13 tablets by it y of 00:00: mouth [place] 00 every 8 Medical (eight) Branch hours as needed for Nausea and Vomiting (N/V). ciprofloxac 2019- Yes [id number] 500mg Take 1 Univers in HCl 500 0-13 tablet by ity of mg tablet 00:00: mouth 2 [place] 00 (two) Medical times Branch daily. traMADoL 50 2019- Yes [id number] 50mg Take 1 Univ ers mg tablet 0-13 tablet by ity o f 00:00: mouth [place] 00 every 6 Medical (six) Branch hours as needed for Pain (scale 4-6). Indication s: acute pain ondansetron 2019- Yes [id number] 8mg Take 2 Univers 4 mg tablet 0-13 tablets by it y of 00:00: mouth [place] 00 every 8 Medical (eight) Branch hours as needed for Nausea and Vomiting (N/V). traMADoL 50 2019-04- No [id number] 50mg Take 1 Uni vers mg tablet 0-13 01-15 tablet by ity of 00:00: 00:00 mouth [place] 00 :00 every 6 Medical (six) Branch hours as needed for Pain (scale 4-6). Indication s: acute pain ciprofloxac 2019-04- No [id number] 500mg Take 1 Univers in HCl 500 0-13 10-28 tablet by ity of mg tablet 00:00: 00:00 mouth 2 [place] 00 :00 (two) Medical times Branch daily. dicyclomine 2019- No 20mg 20 mg, Uni vers (BENTYL) -02 06-20 Intramuscu ity of injection 20:45: 20:08 [place], ONCE, [place] 20 mg 00 :00 1 dose, Medical [place] Branch 06/02/19 at 1445, Routine ondansetron 2019- No 4mg 4 mg, Slow Univers (ZOFRAN -02 06-20 IV Push, ity of (PF)) 19:00: 17:54 ONCE, 1 [place] injection 4 00 :00 dose, [place] Med ical mg 06/02/19 at Branch 1300, L[place] morpHINE 2019-2019- No 4mg 4 mg, Slow Un carol injection 4 -02 06-20 IV Push, ity of mg 19:00: 17:54 ONCE, 1 [place] 00 :00 dose, [place] Medical 06/02/19 at Branch 1300, STAT iohexol 2019- 2020- No 120mL 120 mL, Unive rs (OMNIPAQUE -02 06-20 Intravenou it y of 350 18:37: 18:35 s, ONCE, 1 [place] BULK-150 00 :00 dose, [place] Medica l mL) 06/02/19 at Branch injection 1300, 120 mL Routine NaCl 0.9% 2019- 2020- No 1000mL at 999 Uni vers (NS) bolus 2-20 02-20 mL/hr, ity of infusion 17:30: 19:11 1,000 mL, [place] 1,000 mL 00 :00 IV Medical Infusion, Branch ONCE, 1 dose, [place] 06/02/19 at 1130, LORENE dicyclomine 2019-0 Yes [id number] 10mg Take 1 Univers (BENTYL) 10 2-20 capsule by it y of mg capsule 00:00: mouth 4 [place] 00 (four) Medical times Branch daily as needed for Abdominal pain. dicyclomine 2019-0 Yes [id number] 10mg Take 1 Univers (BENTYL) 10 2-20 capsule by it y of mg capsule 00:00: mouth 4 [place] 00 (four) Medical times Branch daily as needed for Abdominal pain. dicyclomine 2020- No [id number] 10mg Take 1 Univers (BENTYL) 10 2-20 10-13 capsule by i ty of mg capsule 00:00: 00:00 mouth 4 [place] 00 :00 (four) Medical times Branch daily as needed for Abdominal pain. traMADol Yes [id number] 50mg Take 1 Univers (ULTRAM) 50 9-28 [id number] tablet by i ty of mg tablet 00:00: mouth [place] 00 every 8 Medical (eight) Branch hours as needed for Pain (scale 4-6). traMADol Yes [id number] 50mg Take 1 Univers (ULTRAM) 50 9-28 [id number] tablet by i ty of mg tablet 00:00: mouth [place] 00 every 8 Medical (eight) Branch hours as needed for Pain (scale 4-6). traMADol 2020- No [id number] 50mg Take 1 Univers (ULTRAM) 50 9-28 10-13 [id number] tablet by ity of mg tablet 00:00: 00:00 mouth [place] 00 :00 every 8 Medical (eight) Branch hours as needed for Pain (scale 4-6). nebivolol 2018- Yes Take by [facility] ers HCl - mouth ity of (BYSTOLIC 20:20: daily. [place] ORAL) 01 Medical Branch zolpidem 2018- Yes 10mg Take 10 mg Uni vers (AMBIEN) 10 -26 by mouth ity of mg tablet 20:20: at [place] 01 bedtime. Medical Branch HYDROcodone 2018- Yes 1{tbl} Take 1 Un carol -acetaminop 9-26 tablet by ity of hen 7.5-325 20:20: mouth 2 [place] mg per (two) Medical tablet times Branch daily. FLUoxetine 2019 Yes 60mg Take 60 mg U nivers (PROZAC) 40 9-26 by mouth ity of mg capsule 20:20: daily. Medical Branch ARIPiprazol Yes 5mg Take 5 mg U nivers e (ABILIFY) 9-26 by mouth ity of 5 mg tablet 20:20: daily. [place] hydrOXYzine Yes 25mg Take 25 mg Univers 25 mg 9-26 by mouth ity of tablet 20:20: at bedtime as needed Medical for Branch Itching or Anxiety. nebivolol Yes Take by [facility] ers HCl 9-26 mouth ity of (BYSTOLIC 20:20: daily. [place] [facility] zolpidem Yes 10mg Take 10 mg Uni vers (AMBIEN) 10 9-26 by mouth ity of mg tablet 20:20: at [place] [id number] bedtime. Medical Branch HYDROcodone Yes 1{tbl} Take 1 Un carol -acetaminop 9-26 tablet by ity of hen 7.5-325 20:20: mouth 2 [place] as mg per (two) Medical tablet times Branch daily. FLUoxetine Yes 60mg Take 60 mg U nivers (PROZAC) 40 9-26 by mouth ity of mg capsule 20:20: daily. Medical Branch ARIPiprazol Yes 5mg Take 5 mg U nivers e (ABILIFY) 9-26 by mouth ity of 5 mg tablet 20:20: daily. [facility] Medical Branch hydrOXYzine Yes 25mg Take 25 mg Univers 25 mg 9-26 by mouth ity of tablet 20:20: at bedtime as needed Medical for Branch Itching or Anxiety. nebivolol Yes Take by [facility] ers HCl 9-26 mouth ity of (BYSTOLIC 20:20: daily. [facility]) Medical Branch Vital Signs Vital Name Observation Time Observation Value Comments Source Heart rate 2020-07-23 19:30:00 75 /min [facility] Oxygen saturation in 2020-07-23 19:30:00 100 /min University of Arterial blood by [facility] riky Pulse oximetry Branch Systolic blood 2020-07-23 18:00:00 142 mm[Hg] Univer sity of pressure [place] [facility] Diastolic blood 2020-07-23 18:00:00 97 mm[Hg] Unive rsity of pressure [place] [facility] Respiratory rate 2020-07-23 18:00:00 20 /min Univ ersity of [place] [facility] Body temperature 2020-07-23 16:37:00 37.11 Elodia Univ ersity of [place] [facility] Body height 2020-07-23 16:37:00 157.5 cm Universi ty [facility] [place] [facility] Body weight 2020-07-23 16:37:00 79.379 kg Universi ty [facility] [place] [facility] BMI 2020-07-23 16:37:00 32.01 kg/m2 Universi [facility] [place] [facility] Heart rate 2020-07-23 19:30:00 75 /min Universi ty [facility] [place] [facility] Oxygen saturation in 2020-07-23 19:30:00 100 /min University of [facility] by [facility] Pulse oximetry Branch Systolic blood 2020-07-23 18:00:00 142 mm[Hg] Univer sity of pressure [place] [facility] Diastolic blood 2020-07-23 18:00:00 97 mm[Hg] Unive rsity of pressure [place] [facility] Respiratory rate 2020-07-23 18:00:00 20 /min Univ ersity of [place] [facility] Body temperature 2020-07-23 16:37:00 37.11 Elodia Univ ersity of [place] [facility] Body height 2020-07-23 16:37:00 157.5 cm Universi ty [facility] [place] [facility] Body weight 2020-07-23 16:37:00 79.379 kg Universi [facility] [place] [facility] BMI 2020-07-23 16:37:00 32.01 kg/m2 [facility] [place] [facility] Systolic blood 2020-04-27 23:25:00 112 mm[Hg] Univer sity of pressure [place] [facility] Diastolic blood 2020-04-27 23:25:00 87 mm[Hg] Unive rsity of pressure [place] [facility] Heart rate 2020-04-27 23:25:00 78 /min Universi ty [facility] [place] [facility] Respiratory rate 2020-04-27 23:25:00 18 /min Univ ersity of [place] [facility] Oxygen saturation in 2020-04-27 23:25:00 99 /min University of [facility] by [facility] Pulse oximetry Branch Body temperature 2020-04-27 17:24:00 37.06 Elodia Univ ersity of [place] [facility] Body height 2020-04-27 17:24:00 157.5 cm Universi ty [facility] [place] [facility] Body weight 2020-04-27 17:24:00 77.111 kg Universi ty [facility] [place] [facility] BMI 2020-04-27 17:24:00 31.09 kg/m2 [facility]i [facility] [place] [facility] Systolic blood 2020-04-27 23:25:00 112 mm[Hg] Univer sity of pressure [place] [facility] Diastolic blood 2020-04-27 23:25:00 87 mm[Hg] Unive rsity of pressure [place] [facility] Heart rate 2020-04-27 23:25:00 78 /min Universi ty [facility] [place] [facility] Respiratory rate 2020-04-27 23:25:00 18 /min Univ ersity of [place] [facility] Oxygen saturation in 2020-04-27 23:25:00 99 /min University [facility] by [facility] Pulse oximetry Branch Body temperature 2020-04-27 17:24:00 37.06 Elodia Univ ersity of [place] [facility] Body height 2020-04-27 17:24:00 157.5 cm Universi ty [facility] [place] [facility] Body weight 2020-04-27 17:24:00 77.111 kg [facility]i [facility] [place] [facility] BMI 2020-04-27 17:24:00 31.09 kg/m2 [facility] [place] [facility] Systolic blood 2020-02-08 16:45:00 114 mm[Hg] Univer sity of pressure [place] [facility] Diastolic blood 2020-02-08 16:45:00 84 mm[Hg] Unive rsity of pressure [place] [facility] Heart rate 2020-02-08 16:45:00 80 /min Universi ty [facility] [place] [facility] Body temperature 2020-02-08 16:45:00 36.06 Elodia Univ ersity of [place] [facility] Respiratory rate 2020-02-08 16:45:00 20 /min Univ ersity of [place] [facility] Oxygen saturation in 2020-02-08 16:45:00 96 /min University of Arterial blood by [place] [facility] riky Pulse oximetry Branch Body height 2020-02-08 00:37:00 152.4 cm Universi ty [facility] [place] [facility] Body weight 2020-02-08 00:37:00 78.019 kg Universi ty [facility] [place] [facility] BMI 2020-02-08 00:37:00 33.59 kg/m2 Universi [facility] [place] [facility] Systolic blood 2020-02-08 16:45:00 114 mm[Hg] Univer sity of pressure [place] [facility] Diastolic blood 2020-02-08 16:45:00 84 mm[Hg] Unive rsity of pressure [place] [facility] Heart rate 2020-02-08 16:45:00 80 /min Universi ty [facility] [place] [facility] Body temperature 2020-02-08 16:45:00 36.06 Elodia Univ ersity of [place] [facility] Respiratory rate 2020-02-08 16:45:00 20 /min Univ ersity of [place] [facility] Oxygen saturation in 2020-02-08 16:45:00 96 /min University of Arterial blood by [place] [facility] riky Pulse oximetry Branch Body height 2020-02-08 00:37:00 152.4 cm Universi ty [facility] [place] [facility] Body weight 2020-02-08 00:37:00 78.019 kg Universi ty [facility] [place] [facility] BMI 2020-02-08 00:37:00 33.59 kg/m2 [facility]i [facility] [place] [facility] Systolic blood 2020-01-25 02:00:00 134 mm[Hg] Univer sity of pressure [place] [facility] Diastolic blood 2020-01-25 02:00:00 94 mm[Hg] Unive rsity of pressure [place] [facility] Heart rate 2020-01-25 02:00:00 83 /min Universi ty [facility] [place] [facility] Oxygen saturation in 2020-01-25 02:00:00 96 /min University of Arterial blood by [facility] riky Pulse oximetry Branch Respiratory rate 2020-01-25 01:00:00 16 /min Univ ersity of [place] [facility] Body temperature 2020-01-24 22:09:00 37.11 Elodia Univ ersity of [place] [facility] Body height 2020-01-24 22:09:00 157.5 cm Universi ty [facility] [place] [facility] Body weight 2020-01-24 22:09:00 78.336 kg Universi [facility] [place] [facility] BMI 2020-01-24 22:09:00 31.59 kg/m2 [facility] [place] [facility] Systolic blood 2020-01-25 02:00:00 134 mm[Hg] Univer sity of pressure [place] [facility] Diastolic blood 2020-01-25 02:00:00 94 mm[Hg] Unive rsity of pressure [place] [facility] Heart rate 2020-01-25 02:00:00 83 /min Universi ty [facility] [place] [facility] Oxygen saturation in 2020-01-25 02:00:00 96 /min University of Arterial blood by [place] [employer] riky Pulse oximetry Branch Respiratory rate 2020-01-25 01:00:00 16 /min Univ ersity of [place] [facility] Body temperature 2020-01-24 22:09:00 37.11 Elodia Univ ersity of [place] [facility] Body height 2020-01-24 22:09:00 157.5 cm Universi ty [facility] [place] [facility] Body weight 2020-01-24 22:09:00 78.336 kg Universi ty [facility] [place] [facility] BMI 2020-01-24 22:09:00 31.59 kg/m2 Universi ty [facility] [place] [facility] Systolic blood 2019-06-02 19:00:00 126 mm[Hg] Univer sity of pressure [place] [facility] Diastolic blood 2019-06-02 19:00:00 81 mm[Hg] Unive rsity of pressure [place] [facility] Heart rate 2019-06-02 19:00:00 86 /min [facility] [place] [facility] Respiratory rate 2019-06-02 19:00:00 17 /min Univ ersity of [place] [facility] Oxygen saturation in 2019-06-02 19:00:00 96 /min University of Arterial blood by [place] [employer] riky Pulse oximetry Branch Body temperature 2019-06-02 17:14:00 36.61 Elodia Univ ersity of [place] [facility] Body height 2019-06-02 17:14:00 157.5 cm Universi ty [facility] [place] [facility] Body weight 2019-06-02 17:14:00 74.844 kg Universi [facility] [place] [facility] BMI 2019-06-02 17:14:00 30.18 kg/m2 [facility] [place] [facility] Systolic blood 2019-06-02 19:00:00 126 mm[Hg] Univer sity of pressure [place] [facility] Diastolic blood 2019-06-02 19:00:00 81 mm[Hg] Unive rsity of pressure [facility] Heart rate 2019-06-02 19:00:00 86 /min [facility] Respiratory rate 2019-06-02 19:00:00 17 /min [facility] Oxygen saturation in 2019-06-02 19:00:00 96 /min [facility] Arterial blood by [facility] Pulse oximetry Branch Body temperature 2019-06-02 17:14:00 36.61 Elodia [facility] Body height 2019-06-02 17:14:00 157.5 cm [facility] Body weight 2019-06-02 17:14:00 74.844 kg [facility] BMI 2019-06-02 17:14:00 30.18 kg/m2 [facility] Procedures Procedure Date / Time Performing Clinician Source Performed ASSIGNMENT OF BENEFITS 2021-06-18 14:59:31 Doctor Unassigned, No [facility] Name [facility] US OVARY TORSION 2020-07-23 19:10:59 Megan Lyons [facility] CT ABDOMEN PELVIS W 2020-07-23 17:15:00 Megan Lyons [facility] CONTRAST [facility] HEPATIC FUNCTION PANEL 2020-07-23 16:49:00 LyonsMegan clark [facility] ([id number]) (ALB,T.PRO,BILI [facility] Branch T,BU/BC,ALT,AST,ALK PHOS) BASIC METABOLIC PANEL 2020-07-23 16:49:00 Megan Lyons [facility] (NA, K, CL, CO2, Medical Branch GLUCOSE, BUN, CREATININE, CA) CBC WITH DIFF 2020-07-23 16:49:00 Megan Lyons [facility] URINALYSIS 2020-07-23 16:49:00 [facility] 2020-07-23 16:48:00 Megan Lyons [facility] NOTICE OF PRIVACY 2020-07-23 16:32:51 Doctor Unassigned, No [facility] PRACTICES Name [facility] CONSENT/REFUSAL FOR 2020-07-23 16:32:01 Doctor Unassigned, No [facility] DIAGNOSIS AND TREATMENT Name Medical [place] HEAD WO CONTRAST 2020-04-27 19:40:14 Ann Cardozo [facility] TROPONIN I 2020-04-27 18:41:00 Ann Cardozo [facility] BASIC METABOLIC PANEL 2020-04-27 18:41:00 Ann Cardozo [facility] (NA, K, CL, CO2, Medical Branch GLUCOSE, BUN, CREATININE, CA) CBC WITH DIFF 2020-04-27 18:41:00 Ann Cardozo [facility] HB ECG ROUTINE & RHYTHM 2020-04-27 17:58:58 Ann Cardozo [facility] NOTICE OF PRIVACY 2020-04-27 17:21:19 Doctor Unassigned, No [facility] PRACTICES Name Medical Branch CONSENT/REFUSAL FOR 2020-04-27 17:21:03 Doctor Unassigned, No [facility]REAT[facility] Name [facility] [place] TROPONIN I 2020-02-08 10:03:00 [facility] METABOLIC PANEL 2020-02-08 10:03:00 Sharon Ovalles [facility] (NA, K, CL, CO2, Medical Branch GLUCOSE, BUN, CREATININE, CA) CBC WITH DIFF 2020-02-08 10:03:00 Josr [facility] TROPONIN I 2020-02-08 04:27:00 Josr [facility] COVID-19 (ID NOW RAPID 2020-02-07 22:40:00 Angelo Robles [facility] TESTING) Medical Branch MAGNESIUM 2020-02-07 22:22:00 Josr [facility] TROPONIN I 2020-02-07 22:22:00 Travis Angelo [facility] THYROID STIMULATING 2020-02-07 22:22:00 Ruby Ovallesherine [facility] HORMONE [facility] LIPID PANEL 2020-02-07 22:22:00 Josr [facility] ([id number])(TOTAL Medical Branch CHOLESTEROL, TRIGLYCERIDES, HDL) CT ABDOMEN PELVIS W 2020-02-07 21:28:58 Angelo Robles [facility] CONTRAST [facility] Branch CT CHEST PULMONARY 2020-02-07 21:28:58 Angelo Robles [facility] ANGIOGRAM [facility] Branch XR CHEST 1 VW 2020-02-07 20:36:36 Angelo Robles [facility] POCT TEST 2020-02-07 20:03:00 Angelo Robles [facility] URINALYSIS 2020-02-07 20:02:00 Angelo Robles [facility] LIPASE 2020-02-07 19:58:00 Angelo Robles [facility] TROPONIN I 2020-02-07 19:58:00 Travis Angelo [facility] HEPATIC FUNCTION PANEL 2020-02-07 19:58:00 Angelo Robles [facility] ([id number]) (ALB,T.PRO,BILI [facility] Branch T,BU/BC,ALT,AST,ALK PHOS) BASIC METABOLIC PANEL 2020-02-07 19:58:00 Angelo Robles [facility] (NA, K, CL, CO2, Medical Branch GLUCOSE, BUN, CREATININE, CA) CBC WITH DIFF 2020-02-07 19:58:00 Angelo Robles [facility] PROTHROMBIN TIME / INR 2020-02-07 19:58:00 Angelo Robles [facility] ACTIVATED PARTIAL 2020-02-07 19:58:00 Angelo Robles [facility] THRMPLAS GLORY [facility] N-TERMINAL PRO-BNP 2020-02-07 19:58:00 Angelo Robles [facility] HB ECG ROUTINE & RHYTHM 2020-02-07 19:51:07 Angelo Robles [facility] CONSENT/REFUSAL FOR 2020-02-07 19:42:57 Doctor Unassigned, No Un [facility] DIAGNOSIS AND TREATMENT Name Medical Branch CT ABDOMEN PELVIS W 2020-01-24 23:32:59 Mark Armijo [facility] CONTRAST [facility] POCT TEST 2020-01-24 23:22:00 Mark Armijo [facility] LIPASE 2020-01-24 22:41:00 Mark Armijo [facility] COMP. METABOLIC PANEL 2020-01-24 22:41:[address] [facility] ([id number]) Medical Branch CBC WITH DIFF 2020-01-24 22:41:00 Bubba [facility] o [facility] URINALYSIS 2020-01-24 22:41:00 Armijo, [facility] o [facility] NOTICE OF PRIVACY 2020-01-24 22:03:28 Doctor Unassigned, No [facility] CONSENT/REFUSAL FOR 2020-01-24 22:03:15 Doctor Unassigned, No Un [facility] [place] DIAGNOSIS AND TREATMENT Name [facility] CT ABDOMEN PELVIS W 2019-06-02 18:46:[address] [facility] CONTRAST [facility] POCT TEST 2019-06-02 17:48:00 Candido Ramirez Univers ity [facility] LIPASE 2019-06-02 17:47:00 Candido Ramirez [facility] COMP. METABOLIC PANEL 2019-06-02 17:47:00 Candido Ramirez Unive [facility] ([id number]) [facility] CBC WITH DIFFERENTIAL 2019-06-02 17:47:00 Candido Ramirez Unive [facility] URINALYSIS 2019-06-02 17:47:00 Candido Ramirez [facility] CONSENT/REFUSAL FOR 2019-06-02 17:08:56 Doctor Unassigned, No Un [facility] [place] DIAGNOSIS AND TREATMENT [facility] Encounters Start End Encounter Admission Attending Care Care Encounter Source Date/Time Date/Time Type Type Clinicians Facility Department ID 2021-02-10 Emergency [facility] [id number] Univers 12:15:04 ity of [facility] 2021-02-09 Emergency [facility] [id number] Univers 17:33:49 ity of [facility] 2021-02-09 Emergency [facility] [id number] Univers 01:23:23 ity of [facility] 2021-02-08 Emergency [facility] [id number] Univers 22:46:53 ity [facility] 2021-06-18 2021-06-18 Publicity Person Radha Smith [facility] Main [facility] 1.2.8 [id number] Univers 08:45:00 09:00:00 Visit Paul [place] [id number] ity [id number] [id number] Ia dical NAL 353 [facility] 2021-06-18 2021-06-18 Outpatient R [facility] [id number] Univers 08:45:00 08:45:00 [id number] ity of [facility] 2021-06-18 2021-06-18 [facility] [id number] Univers 08:45:00 08:45:00 PAUL ity [facility] 2021-06-18 2021-06-18 Orders Doctor LUÍS [id number] Univers 00:00:00 00:00:00 Only Unassigned, SHARON [id number] ity of [place] [facility] [id number] [place] as [phone] [facility] 009 Branch 2020-08-24 2020-08-24 Outpatient GC_[id number] PRIV PRIV [id number] [facility] 02:56:00 02:56:00 Ludwin [id number] [facility] 2020-08-24 2020-08-24 Outpatient Stan, PRIV PRIV [id number] 00:00:00 00:00:00 Alex [id number] tristan [id number] 2020-07-23 2020-07-23 Emergency Lyons, [facility] [id number] 11:40:00 15:16:00 Megan Leon [id number] [place] [id number] [place] [id number] [facility] 2020-07-23 2020-07-23 Emergency Lyons, [facility] [id number] Univers 11:40:00 15:16:00 Megan Leon [id number] i ty of [id number] [id number] [facility] 084 Branch 2020-04-27 2020-04-27 Emergency Levi, [facility] [id number] Univers 11:25:00 18:21:00 Ann [place] [id number] ity of [place] [id number] [facility] [id number] [facility] 084 Branch 2020-04-27 2020-04-27 Emergency Levi [facility] [id number] 11:25:00 18:21:00 Ann Leon [id number] [place] [id number] [place] [id number] [employer] [facility] [employer] 2020-02-07 2020-02-08 Emergency Angelo Robles [facility] 1.2.840. 114 [id number] [facility] 14:46:00 14:26:00 Naun Bush [id number] ity of [place] [id number] [facility] [id number] [place] [id number] Branch 2020-02-07 2020-02-08 Emergency Angelo Robles [facility] 1.2.840. 114 [id number] 14:46:00 14:26:00 Naun Bush [id number] [place] [id number] [place] [id number] [facility] 2020-01-24 2020-01-24 [facility] [id number] [facility] 17:12:00 21:15:00 Mark [place] [id number] i ty of [place] [id number] [facility] [id number] [facility] 084 Branch 2020-01-24 2020-01-24 Emergency [facility] [id number] 17:12:00 21:15:00 Mark [place] [id number] [place] [id number] [place] [id number] [employer] [facility] 2020-01-24 2020-01-24 Orders Doctor LUÍS 1.2.840.114 [id number] 00:00:00 00:00:00 Only Unassigned, SHARON [id number] ity of [place] [facility] [id number] [place] [id number] [facility] 009 Branch 2020-01-24 2020-01-24 Orders Doctor LUÍS 1.2.840.114 [id number] 00:00:00 00:00:00 Only Unassigned, SHARON [id number] [place] [facility] [id number] [facility] 2019-06-02 2019-06-02 Emergency [place], [facility] 1.2.840.114 [id number] Univers 11:18:34 14:43:00 Candido B [place] [id number] i ty [facility] [id number] [facility] [id number] [facility] 084 Branch 2019-06-02 2019-06-02 Emergency X JAMES, [facility] ERT [id number] Univers 11:18:34 14:43:00 CANDIDO ity of [facility] 2019-06-02 2019-06-02 Emergency [place], [facility] 1.2.840.114 [id number] 11:18:34 14:43:00 Candido B [place] [id number] [place] [id number] [place] [id number] [id number] Results Test Test Test Results Result Source Description Time Comments Comments US OVARY 2020-07 Low suspicion for ovarian University of TORSION -12 torsion. Small suspected [facility] 19:26:2 fundal uterine fibroid versus Branch 5 foci of endometrial andsubendometrial microcalcifications.PELVIC ULTRASOUND (TRANSVAGINAL AND LIMITED TRANSABDOMINAL) TECHNIQUE: Transvaginal and limited transabdominal sonography of the pelviswas performed. INDICATION: RLQ pain, CT negative. COMPARISON: Same day CT FINDINGS: Uterus measures 7.9 x 3.3 x 4.3 cm. Few echogenic foci of the uterinefundus are thought to represent a suspected intramural fibroid measuring0.7 x 0.7 x 0.7 cm. This suspected fibroid is in close proximity and/orabuts the endometrial stripe in the region of the fundus. The endometrialecho measures 0.3 cm in thickness, normal. Cervix contains a few nabothiancysts. Evidence of scarring within the lower anterior uterinesegment. Ovaries are normal in size and configuration. The right ovary measures 2.0x 1.4 x 1.7 cm. Right ovary contains a few physiologic follicles. The leftovary measures 2.4 x 1.3 x 2.7 cm and contains a 8 mm follicle. Spectral and color Doppler evaluation of the ovaries demonstrates normalarterial and venous flow. There is no evidence of intraperitoneal fluid. [facility], Radiant Results Inft User - 07/23/2020 2:27 PM CDTPELVIC ULTRASOUND (TRANSVAGINAL AND LIMITED TRANSABDOMINAL)TECHNIQUE: Transvaginal and limited transabdominal sonography of the pelviswas performed.INDICATION: RLQ pain, CT negative. COMPARISON: Same day CTFINDINGS:Uterus measures 7.9 x 3.3 x 4.3 cm. Few echogenic foci of the uterinefundus are thought to represent a suspected intramural fibroid measuring0.7 x 0.7 x 0.7 cm. This suspected fibroid is in close proximity and/orabuts the endometrial stripe in the region of the fundus. The endometrialecho measures 0.3 cm in thickness, normal. Cervix contains a few nabothiancysts. Evidence of scarring within the lower anterior uterinesegment.Ovaries are normal in size and configuration. The right ovary measures 2.0x 1.4 x 1.7 cm. Right ovary contains a few physiologic follicles. The leftovary measures 2.4 x 1.3 x 2.7 cm and contains a 8 mm follicle.Spectral and color Doppler evaluation of the ovaries demonstrates normalarterial and venous flow.There is no evidence of intraperitoneal fluid.IMPRESSIONLow suspicion for ovarian torsion.Small suspected fundal uterine fibroid versus foci of endometrial andsubendometrial microcalcifications. CT ABDOMEN 2020-07 Normal appendix. No Univ ersity of PELVIS W -12 radiographic findings to 365looks ([email or web address]) CONTRAST 17:59:0 explain patient's pain in the Branch [address] ABDOMEN AND PELVIS WITH CONTRAST REASON FOR STUDY: Abdominal pain, fever Nausea/vomiting RLQ abdominal pain,appendicitis suspected (Age >= 14y) COMPARISON: 02/07/2020 and 01/24/2020 TECHNIQUE: Multidetector axial CT images from lung bases through proximalthighs after IV administration of nonionic iodinated contrast material.Coronal and sagittal MPR images also generated. INTRAVENOUS CONTRAST ADMINISTRATION (mL Omnipaque 350): 120. Total DLP: 355 mGy*cm FINDINGS: Lower chest: Bibasilar subsegmental atelectasis. ABDOMEN AND PELVISLiver: Hepatic dome is not fully within [id number]. Mild focal fattyinfiltration at the falciform ligament. No focal suspicious hepaticlesions. Normal hepatic surface contour. Biliary Tract/GB: Partially contracted gallbladder without cholelithiasis.No biliary ductal dilatation. Spleen: No splenomegaly. Pancreas: No pancreatic ductal dilatation. Adrenals: Within normal limits. Kidneys: Kidneys enhance symmetrically. No hydronephrosis ornephrolithiasis. No renal mass. Bowel: Normal appendix. No abnormal bowel dilatation or wall thickening. Peritoneum: No pneumoperitoneum or free fluid. Vasculature: Patent main portal and splenic veins. No appreciableatherosclerotic calcifications in the abdominal aorta. Lymph Nodes: No lymphadenopathy. ? Pelvic organs: Urinary bladder is normal for the degree of distention. Leftovary contains a 1.3 cm follicle. Uterus is present. Abdominal/Pelvic Wall: Tiny fat-containing umbilical hernia. BONES: No acute or aggressive osseous abnormality. Subcentimeter scleroticfoci within the right iliac bone a nonspecific but may represent small boneislands in the absence of history of malignancy (2:93-95), unchanged. [facility], Radiant Results In[facility] User - 07/23/2020 1:00 PM CDTCT ABDOMEN AND PELVIS WITH CONTRASTREASON FOR STUDY: Abdominal pain, fever Nausea/vomiting RLQ abdominal pain,appendicitis suspected (Age >= 14y) COMPARISON: 02/07/2020 and 01/24/2020TECHNIQUE: Multidetector axial CT images from lung bases through proximalthighs after IV administration of nonionic iodinated contrast material.Coronal and sagittal MPR images also generated.INTRAVENOUS CONTRAST ADMINISTRATION (mL Omnipaque 350): 120.Total DLP: 355 mGy*cmFINDINGS: Lower chest: Bibasilar subsegmental atelectasis.ABDOMEN AND PELVISLiver: Hepatic dome is not fully within [id number]. Mild focal fattyinfiltration at the falciform ligament. No focal suspicious hepaticlesions. Normal hepatic surface contour.Biliary Tract/GB: Partially contracted gallbladder without cholelithiasis.No biliary ductal dilatation.Spleen: No splenomegaly.Pancreas: No pancreatic ductal dilatation.Adrenals: Within normal limits.Kidneys: Kidneys enhance symmetrically. No hydronephrosis ornephrolithiasis. No renal mass.Bowel: Normal appendix. No abnormal bowel dilatation or wall thickening.Peritoneum: No pneumoperitoneum or free fluid.Vasculature: Patent main portal and splenic veins. No appreciableatherosclerotic calcifications in the abdominal aorta.Lymph Nodes: No lymphadenopathy. Pelvic organs: Urinary bladder is normal for the degree of distention. Leftovary contains a 1.3 cm follicle. Uterus is present.Abdominal/Pelvic Wall: Tiny fat-containing umbilical hernia.BONES: No acute or aggressive osseous abnormality. Subcentimeter scleroticfoci within the right iliac bone a nonspecific but may represent small boneislands in the absence of history of malignancy (2:93-95), unchanged. IMPRESSIONNormal appendix.No radiographic findings to explain patient's pain in the right lowerquadrant. Basic Metabolic Panel (NA, K, CL, CO2, GLUCOSE, BUN, 2020-07 17:09:38 CREATININE, [place]) Test Item Value Reference Range Interpretation Comme nts NA (test code = 0755811133) 139 mmol/L 135-145 K (test code = 4899113208) 3.9 mmol/L 3.5-5.0 CL (test code = 7394546460) 102 mmol/L 98-108 CO2 TOTAL (test code = 29 mmol/L 23-31 4519498098) AGAP (test code = 4722574008) 2-16 BUN (test code = 0326014861) 13 mg/dL 7-23 GLUCOSE (test code = 2716291708) 98 mg/dL 70-110 CREATININE (test code = 0.76 mg/dL 0.50-1.04 2849682373) CALCIUM (test code = 8835413978) 9.5 mg/dL 8.6-10.6 eGFR (test code = 8892136901) mL/min/1.73m2 JOSH (test code = JOSH) Association of Glomerular Filtration Rate (GFR) and Staging of Kidney Disease* + +--------- + ----+| GFR (mL/min/1.73 m2) ?| With Kidney Damage ?| ?Without Kidney Damage+ +--- + +| ?>90 ?| ?Stage one ?| ? Normal ?+ +-------- + -----+| ?60-89 ?| ?Stage two ?| ? Decreased GFR ? + +--------- + ----+| ?30-59 ?| ?Stage three ?| ? Stage three ? + +--------- + ----+| ?15-29 ?| ?Stage four ? | ? Stage four ?+ +-------- + -----+| ?<15 (or dialysis) ? ?| ?Stage five ? | ? Stage five ?+ +-------- + -----+ *Each stage assumes the associated GFR level has been in effect for at least three months. ?Stages 1 to 5, with or without kidney disease, indicate chronic kidney disease. Notes: Determination of stages one and two (with eGFR >59mL/min/1.73 m2) requires estimation of kidney damage for at least three months as defined by structural or functional abnormalities of the kidney, manifested by either:Pathological abnormalities or Markers of kidney damage (including abnormalities in the composition of the blood or urine or abnormalities in imaging tests). [facility] (ALB, T.PRO, BILI T, BU/BC, ALT, AST, ALK PHOS)2020-07-23 17:09:38 Test Item Value Reference Range Interpretation Comments TOTAL BILI (test code = 4390468046) 0.4 mg/dL 0.1-1.1 BILI UNCON (test code = 4597378387) 0.2 mg/dL 0.1-1.1 BILI CONJ (test code = 3723324551) 0.0 mg/dL 0.0-0.3 T PROTEIN (test code = 4261672247) 6.9 g/dL 6.3-8.2 ALBUMIN (test code = 1071351796) 4.3 g/dL 3.5-5.0 ALK PHOS (test code = 7404274622) 113 U/L 34-122 ALTv (test code = 1742-6) 13 U/L 5-35 AST(SGOT) (test code = 0388708955) 29 U/L 13-40 Lab Interpretation (test code = Normal 26005-7) [facility] HospitalUrinalysis2021-04-12 17:03:52 Test Item Value Reference Range Interpretation Comments APPEARANCE (test code = Clear Clear 7449836090) COLOR (test code = Straw Yellow A 1968305019) PH (test code = 4.8-8.0 6929348197) SP GRAVITY (test code = 1.003-1.030 9655867052) GLU U QUAL (test code = Normal Normal 2400743130) BLOOD (test code = Negative Negative 7769783774) KETONES (test code = Negative Negative 8335520160) PROTEIN (test code = Negative Negative 2887-8) UROBILIN (test code = Normal Normal 5226224886) BILIRUBIN (test code = Negative Negative 2884174938) NITRITE (test code = Negative Negative 8068658579) LEUK ROXANE (test code = 25/uL Negative A 8172265098) RBC/HPF (test code = See_Comment [Autom ated message] 9205430206) The system Team [employer] generated this result transmitted ref erence range: 0 - 3 HP F. The reference range was not used to int erpret this result as normal/abnormal . WBC/HPF (test code = See_Comment [Autom ated message] 8018657974) The system Team [employer] generated this result transmitted ref erence range: 0 - 5 HP F. The reference range was not used to int erpret this result as normal/abnormal . BACTERIA (test code = Few Negative A 7238780795) SQ EPITH (test code = HPF 0406697513) Lab Interpretation (test Abnormal code = 88128-5) [facility] with [id number] 16:55:13 Test Item Value Reference Range Interpretation Comments WBC (test code = See_Comment H [Automated 9262-2) message] The sy stem which generated this result transmitted reference range : 4.30 - 11.10 10*3/?L. The reference range was not used to interpret this result as normal/abnormal . RBC (test code = See_Comment [Automated 069-8) message] The sy stem which generated this result transmitted reference range : 3.93 - 5.25 10*6/?L. The reference range was not used to interpret this result as normal/abnormal . HGB (test code = 14.1 g/dL 11.6-15.0 718-7) HCT (test code = 42.7 % 35.7-45.2 4544-3) MCV (test code = 89.1 fL 80.6-95.5 787-2) MCH (test code = 29.4 pg 25.9-32.8 785-6) MCHC (test code = 33.0 g/dL 31.6-35.1 786-4) RDW-SD (test code = 42.4 fL 39.0-49.9 04474-7) RDW-CV (test code = 12.9 % 12.0-15.5 788-0) PLT (test code = See_Comment [Automated 777-3) message] The sy stem which generated this result transmitted reference range : 166 - 358 10*3/ ?L. The reference r susan was not used to interpret this result as normal/abnormal . MPV (test code = 11.5 fL 9.5-12.9 36419-1) NRBC/100 WBC (test See_Comment [Automat ed code = 0876179084) message] The system which generated this result transmitted reference range : 0.0 - 10.0 /100 WBCs. The refer ence range was not u sed to interpret th is result as normal/abnormal . NRBC x10^3 (test code <0.01 See_Comment [Auto mated = 8508951596) message] The s ystem which generated this result transmitted reference range : 10*3/?L. The reference range was not used to interpret this result as normal/abnormal . GRAN MAT (NEUT) % 65.4 % (test code = 770-8) IMM GRAN % (test code 0.40 % = 3229033861) LYMPH % (test code = 24.9 % 736-9) MONO % (test code = 7.7 % 5905-5) EOS % (test code = 1.1 % 713-8) BASO % (test code = 0.5 % 706-2) GRAN MAT x10^3(ANC) 7.44 10*3/uL 1.88-7.09 H (test code = 6447496147) IMM GRAN x10^3 (test 0.05 10*3/uL 0.00-0.06 code = 5583669504) LYMPH x10^3 (test code 2.83 10*3/uL 1.32-3.29 = 731-0) MONO x10^3 (test code 0.88 10*3/uL 0.33-0.92 = 742-7) EOS x10^3 (test code = 0.12 10*3/uL 0.03-0.39 711-2) BASO x10^3 (test code 0.06 10*3/uL 0.01-0.07 = 704-7) Lab Interpretation Abnormal (test code = 98526-5) [facility] HospitalPO[facility] [id number] 16:48:00 Test Item Value Reference Range Interpretation Comments POCT PREG (test code = 1605) negative On board controls acceptable with C present Line (test code = 3574) Lab Interpretation (test code = Normal 39306-0) [facility] Head W/O Djbsnifd5286-80-71 19:42:08 No acute intracranial abnormality. CT HEAD WITHOUT CONTRAST HISTORY: Headache, acute, normal neuro exam COMPARISON: ?None. TECHNIQUE: CT axial images of the head were obtained from vertex to skullbase. Multiplanar reformats were submitted for review. FINDINGS: The ventricles and sulci are normal in size and configuration. Nointracranial abnormality such as hemorrhage, edema, mass- effect, midlineshift, hydrocephalus or extra axial fluid collection is appreciated. Thebasal cisterns are patent. No parenchymal attenuation abnormality. The velez-white matterdifferentiation is preserved. The calvarium an d skull base are intact. ?The paranasal sinuses and mastoidair cells are clear. [facility], Radiant Results In[facility] User - 04/27/2020 1:43 PM CSTCT HEAD WITHOUT CONTRASTHISTORY: Headache, acute, normal neuro exam COMPARISON: None.TECHNIQUE: CT axial images of the head were obtained from vertex to skullbase. Multiplanar reformats were submitted for review.FINDINGS:The ventricles and sulci are normal in size and configuration. Nointracranial abnormality such as hemorrhage, edema, mass-effect, midlineshift, hydrocephalus or extra axial fluid collection is appreciated. Thebasal cisterns are patent.No parenchymal attenuation abnormality. The velez-white matterdifferentiation is preserved.The calvarium and skull base are intact. The paranasal sinuses and mastoidair cells are clear.IMPRESSIONNo acute intracranial abnormality.[facility] HospitalTroponin [id number] 19:09:00 Test Item Value Reference Range Interpretation Comments TROPONIN I (test <0.012 See_Comment [Automated code = 0424489284) message] The system which generated this result transmitted reference range : <=0.034 ng/mL. The reference range was not used to interpr et this result as normal/abnormal . JOSH (test code = Equal or Less than JOSH) 0.034 ng/ml---Normal ?Note: Cardiac troponin begins to rise 3-4 hours after the onset of ischemia. Repeat in 4-6 hours if the sample was drawn within 3-4 hours of the onset of the symptom and found normal. Between 0.035 and 0.120 ng/mL--- Borderline. Questionable myocardial injury or necrosis ? ?Note: Serial measurement may be necessary to confirm or exclude the diagnosis of myocardial injury or necrosis; Clinical correlation (symptoms, EKGs, imaging studies, and others) required; Repeat in 4-6 hours if clinically indicated. ? Equal or Higher than 0.121 ng/mL---Abnormal. Myocardial Injury or Necrosis Likely ? Biotin has been reported to cause a negative bias, interpret results relative to patient's use of biotin. ? Lab Interpretation Normal (test code = 01688-4) [facility] (NA, K, CL, CO2, GLUCOSE, BUN, CREATININE, [place])2020-04-27 18:58:00 Test Item Value Reference Range Interpretation Comments NA (test code = 139 mmol/L 135-145 4230237964) K (test code = 4.1 mmol/L 3.5-5 0353953451) CL (test code = 98 mmol/L 98-108 4178621269) CO2 TOTAL (test code = 32 mmol/L 23-31 H 5173004059) AGAP (test code = 2-16 6448987362) BUN (test code = 11 mg/dL 7-23 3223967699) GLUCOSE (test code = 86 mg/dL 70-110 1268285203) CREATININE (test code = 0.78 mg/dL 0.5-1.04 0564207507) CALCIUM (test code = 10.2 mg/dL 8.6-10.6 0093341892) eGFR Calculation mL/min/1.73m2 (Non-) (test code = 3175576070) eGFR Calculation mL/min/1.73m2 () (test code = 3975581907) JOSH (test code = JOSH) Association of Glomerular Filtration Rate (GFR) and Staging of Kidney Disease* + --+ --+ ------+| GFR (mL/min/1.73 m2) ?| With Kidney Damage ?| ?Without Kidney Damage+ --------+ --------+ +| ?>90 ?| ?Stage one ?| ? Normal ?+ ---+ ---+ -------+| ?60-89 ?| ?Stage two ?| ? Decreased GFR ? + --+ --+ ------+| ?30-59 ?| ?Stage three ?| ? Stage three ? + --+ --+ ------+| ?15-29 ?| ?Stage four ? | ? Stage four ?+ ---+ ---+ -------+| ?<15 (or dialysis) ? ?| ?Stage five ? | ? Stage five ?+ ---+ ---+ -------+ *Each stage assumes the associated GFR level has been in effect for at least three months. ?Stages 1 to 5, with or without kidney disease, indicate chronic kidney disease. Notes: Determination of stages one and two (with eGFR >59mL/min/1.73 m2) requires estimation of kidney damage for at least three months as defined by structural or functional abnormalities of the kidney, manifested by either:Pathological abnormalities or Markers of kidney damage (including abnormalities in the composition of the blood or urine or abnormalities in imaging tests). Lab Interpretation Abnormal (test code = 44435-9) [facility] with [id number] 18:54:00 Test Item Value Reference Range Interpretation Comments WBC (test code = See_Comment [Automated 0547-2) message] The sy stem which generated this result transmitted reference range : 4.30 - 11.10 10*3/?L. The reference range was not used to interpret this result as normal/abnormal . RBC (test code = See_Comment [Automated 693-6) message] The sy stem which generated this result transmitted reference range : 3.93 - 5.25 10*6/?L. The reference range was not used to interpret this result as normal/abnormal . HGB (test code = 15.2 g/dL 11.6-15 H 718-7) HCT (test code = 47.3 % 35.7-45.2 H 4544-3) MCV (test code = 90.4 fL 80.6-95.5 787-2) MCH (test code = 29.1 pg 25.9-32.8 785-6) MCHC (test code = 32.1 g/dL 31.6-35.1 786-4) RDW-SD (test code = 42.5 fL 39-49.9 69826-9) RDW-CV (test code = 12.8 % 12-15.5 788-0) PLT (test code = See_Comment [Automated 777-3) message] The sy stem which generated this result transmitted reference range : 166 - 358 10*3/ ?L. The reference r susan was not used to interpret this result as normal/abnormal . MPV (test code = 11.9 fL 9.5-12.9 70579-3) NRBC/100 WBC (test See_Comment [Automat ed code = 1261597508) message] The system which generated this result transmitted reference range : 0.0 - 10.0 /100 WBCs. The refer ence range was not u sed to interpret th is result as normal/abnormal . NRBC x10^3 (test code <0.01 See_Comment [Auto mated = 6472167115) message] The s ystem which generated this result transmitted reference range : 10*3/?L. The reference range was not used to interpret this result as normal/abnormal . GRAN MAT (NEUT) % 62.6 % (test code = 770-8) IMM GRAN % (test code 0.20 % = 2750171282) LYMPH % (test code = 26.7 % 736-9) MONO % (test code = 9.0 % 5905-5) EOS % (test code = 1.1 % 713-8) BASO % (test code = 0.4 % 706-2) GRAN MAT x10^3(ANC) 5.07 10*3/uL 1.88-7.09 (test code = 3540186237) IMM GRAN x10^3 (test <0.03 0-0.06 code = 2625197333) LYMPH x10^3 (test code 2.16 10*3/uL 1.32-3.29 = 731-0) MONO x10^3 (test code 0.73 10*3/uL 0.33-0.92 = 742-7) EOS x10^3 (test code = 0.09 10*3/uL 0.03-0.39 711-2) BASO x10^3 (test code 0.03 10*3/uL 0.01-0.07 = 704-7) Lab Interpretation Abnormal (test code = 42884-5) [facility] HospitalRodo [id number] 11:05:00 Test Item Value Reference Range Interpretation Comments TROPONIN I (test <0.012 See_Comment [Automated code = 1174120605) message] The system which generated this result transmitted reference range : <=0.034 ng/mL. The reference range was not used to interpr et this result as normal/abnormal . JOSH (test code = Equal or Less than JOSH) 0.034 ng/ml---Normal ?Note: Cardiac troponin begins to rise 3-4 hours after the onset of ischemia. Repeat in 4-6 hours if the sample was drawn within 3-4 hours of the onset of the symptom and found normal. Between 0.035 and 0.120 ng/mL--- Borderline. Questionable myocardial injury or necrosis ? ?Note: Serial measurement may be necessary to confirm or exclude the diagnosis of myocardial injury or necrosis; Clinical correlation (symptoms, EKGs, imaging studies, and others) required; Repeat in 4-6 hours if clinically indicated. ? Equal or Higher than 0.121 ng/mL---Abnormal. Myocardial Injury or Necrosis Likely ? Biotin has been reported to cause a negative bias, interpret results relative to patient's use of biotin. ? Lab Interpretation Normal (test code = 21845-6) [facility] Metabolic Panel (NA, K, CL, CO2, GLUCOSE, BUN, CREATININE, [place])2020-02-08 10:55:00 Test Item Value Reference Range Interpretation Comments NA (test code = 138 mmol/L 135-145 9334886321) K (test code = 4.1 mmol/L 3.5-5 6367796698) CL (test code = 104 mmol/L 98-108 7282200449) CO2 TOTAL (test code = 26 mmol/L 23-31 2455089137) AGAP (test code = 2-16 1710751061) BUN (test code = 14 mg/dL 7-23 4942930550) GLUCOSE (test code = 94 mg/dL 70-110 4767319568) CREATININE (test code 0.91 mg/dL 0.5-1.04 = 4827078101) CALCIUM (test code = 9.0 mg/dL 8.6-10.6 5949081873) eGFR Calculation mL/min/1.73m2 (Non-) (test code = 2990136079) eGFR Calculation mL/min/1.73m2 () (test code = 9456185377) JOSH (test code = JOSH) Association of Glomerular Filtration Rate (GFR) and Staging of Kidney Disease* + -+ + ---+| GFR (mL/min/1.73 m2) ?| With Kidney Damage ?| ?Without Kidney Damage+ -------+ ------+ ---------+| ?>90 ?| ?Stage one ?| ? Normal ?+ --+ -+ ----+| ?60-89 ?| ?Stage two ?| ? Decreased GFR ? + -+ + ---+| ?30-59 ?| ?Stage three ?| ? Stage three ? + -+ + ---+| ?15-29 ?| ?Stage four ? | ? Stage four ?+ --+ -+ ----+| ?<15 (or dialysis) ? ?| ?Stage five ? | ? Stage five ?+ --+ -+ ----+ *Each stage assumes the associated GFR level has been in effect for at least three months. ?Stages 1 to 5, with or without kidney disease, indicate chronic kidney disease. Notes: Determination of stages one and two (with eGFR >59mL/min/1.73 m2) requires estimation of kidney damage for at least three months as defined by structural or functional abnormalities of the kidney, manifested by either:Pathological abnormalities or Markers of kidney damage (including abnormalities in the composition of the blood or urine or abnormalities in imaging tests). [facility] with [id number] 10:26:00 Test Item Value Reference Range Interpretation Comments WBC (test code = See_Comment [Automated message] 6690-2) The system Team [employer] generated this result transmitted ref erence range: 4.30 - 1 1.10 10*3/?L. The re ference range was not u sed to interpret this result as normal/abnor mal. RBC (test code = See_Comment [Automated message] 789-8) The system Team [employer] generated this result transmitted ref erence range: 3.93 - 5 .25 10*6/?L. The re ference range was not u sed to interpret this result as normal/abnor mal. HGB (test code = 12.3 g/dL 11.6-15 718-7) HCT (test code = 38.1 % 35.7-45.2 4544-3) MCV (test code = 91.4 fL 80.6-95.5 787-2) MCH (test code = 29.5 pg 25.9-32.8 785-6) MCHC (test code = 32.3 g/dL 31.6-35.1 786-4) RDW-SD (test code 45.3 fL 39-49.9 = 06833-1) RDW-CV (test code 13.4 % 12-15.5 = 788-0) PLT (test code = See_Comment [Automated message] 777-3) The system Team [employer] generated this result transmitted ref erence range: 166 - 35 8 10*3/?L. The re ference range was not u sed to interpret this result as normal/abnor mal. MPV (test code = 11.9 fL 9.5-12.9 17656-7) NRBC/100 WBC (test See_Comment [Automat ed message] code = 0736829222) The [employer] which generated this result transmitted ref erence range: 0.0 - 10 .0 /100 WBCs. The refer ence range was not u sed to interpret this result as normal/abnor mal. NRBC x10^3 (test <0.01 See_Comment [Automated message] code = 1343400753) The syste m which generated this result transmitted ref erence range: 10*3/?L. The reference range was not used to interpr et this result as normal/abnormal . GRAN MAT (NEUT) % 63.9 % (test code = 770-8) IMM GRAN % (test 0.40 % code = 2494765307) LYMPH % (test code 26.9 % = 736-9) MONO % (test code 6.7 % = 5905-5) EOS % (test code = 1.6 % 713-8) BASO % (test code 0.5 % = 706-2) GRAN MAT 4.94 10*3/uL 1.88-7.09 x10^3(ANC) (test code = 3110392718) IMM GRAN x10^3 0.03 10*3/uL 0-0.06 (test code = 4946844580) LYMPH x10^3 (test 2.08 10*3/uL 1.32-3.29 code = 731-0) MONO x10^3 (test 0.52 10*3/uL 0.33-0.92 code = 742-7) EOS x10^3 (test 0.12 10*3/uL 0.03-0.39 code = 711-2) BASO x10^3 (test 0.04 10*3/uL 0.01-0.07 code = 704-7) [facility] [id number] 05:34:00 Test Item Value Reference Range Interpretation Comments TROPONIN I (test <0.012 See_Comment [Automated code = 5410716219) message] The system which generated this result transmitted reference range : <=0.034 ng/mL. The reference range was not used to interpr et this result as normal/abnormal . JOSH (test code = Equal or Less than JOSH) 0.034 ng/ml---Normal ?Note: Cardiac troponin begins to rise 3-4 hours after the onset of ischemia. Repeat in 4-6 hours if the sample was drawn within 3-4 hours of the onset of the symptom and found normal. Between 0.035 and 0.120 ng/mL--- Borderline. Questionable myocardial injury or necrosis ? ?Note: Serial measurement may be necessary to confirm or exclude the diagnosis of myocardial injury or necrosis; Clinical correlation (symptoms, EKGs, imaging studies, and others) required; Repeat in 4-6 hours if clinically indicated. ? Equal or Higher than 0.121 ng/mL---Abnormal. Myocardial Injury or Necrosis Likely ? Biotin has been reported to cause a negative bias, interpret results relative to patient's use of biotin. ? Lab Interpretation Normal (test code = 54803-0) [facility] Hospital[facility]ulating Hormone (TSH)2020-02-08 02:02:00 Test Item Value Reference Range Interpretation Comments TSH (test code = See_Comment [Automated message] 9295777631) The system Team [employer] generated this result transmitted ref erence range: 0.45 - 4 .70 mIU/L. The refe rence range was not u sed to interpret this result as normal/abnor mal. Lab Interpretation (test Normal code = 51649-0) [facility] HospitalMagnesium [id number] 01:31:00 Test Item Value Reference Range Interpretation Comments MAGNESIUM (test code = 7566787704) 2.1 mg/dL 1.7-2.4 Lab Interpretation (test code = Normal 57550-2) [facility] Hospital[facility]id Panel (Total Cholesterol, Triglycerides, HDL)2020-02-08 01:31:00 Test Item Value Reference Range Interpretation Comments CHOL (test code = 220 mg/dL 120-200 H 1961340903) HDL (test code = 44 mg/dL >50 L 5581590069) HDLC RATIO (test code = See_Comment H [Au tomated message] 3558685866) The system Team [employer] generated this result transmit alistair reference range : <=4.5. The refe rence range was not u sed to interpret th is result as normal/abnormal . TRIG (test code = 179 mg/dL 30-170 H 3971135193) LDL CHOL (test code = 140 mg/dL See_Comment [Auto mated message] 51348-0) The system Team [employer] generated this result transmit alistair reference range : <=160. The refe rence range was not u sed to interpret th is result as normal/abnormal . VLDL (test code = 36 mg/dL 5-60 2188626215) Lab Interpretation (test Abnormal code = 71773-2) 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 It is used under Emergency Use Authorization (EUA) by FDA. The limit of detection (LOD) of the assay is 125 Genome Equivalents/mL. A positive result is indicative of the presence of SARS-CoV-2 RNA. ?Clinical correlation with patient history and other diagnostic information is necessary to determine patient infection status. A negative (Not Detected) result does not preclude SARS-CoV-2 infection. In patients with clinical symptoms and other tests that are consistent with SARS-CoV-2 infection, negative results should be treated as presumptive negative and a new specimen should be tested with alternative PCR molecular test. Invalid: Please collect a new specimen for repeat patient testing if clinically indicated. Lab Interpretation Normal (test code = 16821-8) [facility] [id number] 22:52:00 Test Item Value Reference Range Interpretation Comments TROPONIN I (test <0.012 See_Comment [Automated code = 8994122071) message] The system which generated this result transmitted reference range : <=0.034 ng/mL. The reference range was not used to interpr et this result as normal/abnormal . JOSH (test code = Equal or Less than JOSH) 0.034 ng/ml---Normal ?Note: Cardiac troponin begins to rise 3-4 hours after the onset of ischemia. Repeat in 4-6 hours if the sample was drawn within 3-4 hours of the onset of the symptom and found normal. Between 0.035 and 0.120 ng/mL--- Borderline. Questionable myocardial injury or necrosis ? ?Note: Serial measurement may be necessary to confirm or exclude the diagnosis of myocardial injury or necrosis; Clinical correlation (symptoms, EKGs, imaging studies, and others) required; Repeat in 4-6 hours if clinically indicated. ? Equal or Higher than 0.121 ng/mL---Abnormal. Myocardial Injury or Necrosis Likely ? Biotin has been reported to cause a negative bias, interpret results relative to patient's use of biotin. ? Lab Interpretation Normal (test code = 16638-5) [facility] W [id number] 21:53:30CT Abdomen and Pelvis with intravenous contrast. CLINICAL HISTORY: Abdominal infection including peritonitis. DOSE: Up-to-date CT equipment and radiation dose reduction techniques wereemployed. CTDIvol: 7.65 mGy. DLP: 371 mGy-cm. TECHNIQUE : Contiguous axial imaging from the level of the lung basesthr ough the pubic symphysis were performed after the uncomplicatedadministration of Omnipaque contrast material. Coronal and sagittalreconstructions were obtained. Auto mA and/or iterative reconstruction wereused to reduce radiation dose. FINDINGS: Comparison is made with 01/24/2020 studies. Lower lungs:Clear. Liver, Gallbladder and Spleen: Liver is slightly enlarged, 17.5 cm inlength. Spleen is approximately 11 x 3.8 cm. No focal lesions detected inthe liver or in the spleen. No calcified gallstones.Biliary ducts and thepancreatic duct appear of normal size. Peritoneum: ?No free air or free fluid. No lymphadenopathy. Pancreas and Adrenals: ?Unremarkable pancreas and adrenal glands. Kidneys and Ureters: ?No visible calculi in the renal collecting systems. No hydroureter or hydronephrosis. Vessels: Normal. Retroperitoneum: No abnormal fluid or lymphadenopathy. Bowel: Mild constipation, generalized diverticulosis of large bowel notedwithout any focal changes of diverticulitis. Normal appendix is v isualized. 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 No large adnexal masses or freefluid in the pelvis. Bones: Mild lumbar levoscoliosis. No acute findings. Soft tissues: Unremarkable. CONCLUSION: No acute intra-abdominal or pelvic abnormalities detected. [facility], Radiant Results Inft User - 02/07/2020 4:54 PM CDTCT Abdomen and Pelvis with intravenous contrast.CLINICAL HISTORY: Abdominal infection including peritonitis.DOSE: Up-to-date CT equipment and radiation dose reduction te rasheed wereemployed. CTDIvol: 7.65 mGy. DLP: 371 mGy-cm.TECHNIQUE : Contiguous axial imaging from the level of the lung basesthrough the pubic symphysis were performed after the uncomplicatedadministration of Omnipaque contrast material. Coronal and sagittalreconstructions were obtained. Auto mA and/or iterative reconstruction wereused to reduce radiation dose.FINDINGS: Comparison is made with 01/24/2020 studies.Lower lungs: Clear.Liver, Gallbladder and Spleen: Liver is slightly enlarged, 17.5 cm inlength. Spleen is approximately 11 x 3.8 cm. No focal lesions detected inthe liver or in the spleen. No calcified gallstones. Biliary ducts and thepancreatic duct appear of normal size.Peritoneum: Nofree air or free fluid. No lymphadenopathy.Pancreas and Adrenals: Unremarkable pancreas and adrenalglands.Kidneys and Ureters: No visible calculi in the renal collecting systems. No hydroureter or hydronephrosis. Vessels: Normal.Retroperitoneum: No abnormal fluid or lymphadenopathy.Bowel: Mild cons tipation, generalized diverticulosis of large bowel notedwithout any focal changes of diverticulitis. 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 No large adn exal masses or free fluid in the pelvis.Bones: Mild lumbar levoscoliosis. No acute findings.Soft tissues: Unremarkable.CONCLUSION: No acute intra-abdominal or pelvic abnormalities detected.[facility] CHEST PULMONARY [id number] 21:48:38 No acute or chronic pulmonary embolus up to the segmental level. Preliminary Report Dictated by Resident: Radha Cee ?MD. Asad, have reviewed this study and agree with theabove report.PROCEDURE: CT ANGIO CHEST WITH CONTRAST - PE PROTOCOL CLINICAL INDICATION: Shortness of breath ? COMPARISON: Chest x-ray dated 02/07/2020. TECHNIQUE: ?Helical CTwas performed and reconstructed at 1.25 mm slicethickness from lung bases to apices using 120 mL Isovue 370 intravenouscontrast, without complication. ? 3D axial MIPS and coronal MPRS weregenerated under radiologist supervision, and reviewed to further defineanatomy and possible pathology. ? (DFOV = 40 cm) FINDINGS: PULMONARY ARTERIES: Enhancement is homogeneous and adequate and there is no acute orchronicpulmonary embolism up to the segmental level. The opacification anddiameter of the main pulmonary trunk, right and left pulmonary arteries arenormal. CHEST: Lower neck/thyroid: Unremarkable. Lungs: No focal consolidation or nodules are identified. Central airway: The central airway is patent. Pleura: No pleural effusion, thickening or pneumothorax. Thoracic aorta and great vessels: ?Common origin of the right innominateartery and left common carotid artery is noted. The opacification anddiameter of the thoracic aorta are normal. Heart and pericardium: No detectable coronary arterial calcific ation.Unremarkable cardiac morphology and pericardium. Lymph nodes: No enlarged thoracic lymph nodes. Mediastinum: Unremarkable. Thoracic spine and chest wall: Unremarkable, with normal thoracic vertebralbody heights. Other Lines/Tubes/Devices/Hardware: None Visualized upper abdomen: The liver is not f ully visualized but thought rolanda enlarged and demonstrates mild diffuse hypodensity, in keeping withfatty infiltration. The remaining visualized upper intradermal structuresappear unremarkable. [facility], Radiant Results Inft User - 02/07/2020 4:49 PM CDTPROCEDURE: CT ANGIOCHEST WITH CONTRAST - PE PROTOCOLCLINICAL INDICATION: Shortness of breath COMPARISON: Chest x-ray dated 02/07/2020.TECHNIQUE: Helical CT was performed and reconstructed at 1.25 mm slicethickness from lung bases to apices using 120 mL Isovue 370 intravenouscontrast, without complication. 3D axial MIPS and coronal MPRS weregenerated under radiologist supervision, and reviewed to further defineanatomy and possible pathology. (DFOV = 40 cm)FINDINGS:PULMONARY ARTERIES: Enhancement is homogeneous and adequate and there is no acute or chronicpulmonary embolism up to the segmental level. The opacification anddiameter of the main pulmonary trunk, right and left pulmonary arteries arenormal.CHEST:Lower neck/thyroid: Unremarkable.Lungs: No focal consolidation or nodules are identified.Central airway:The central airway is patent.Pleura: No pleural effusion, thickening or pneumothorax.Thoracic aorta and great vessels: Common origin of the right innominateartery and left common carotid artery is noted. The opacification anddiameter of the thoracic aorta are normal.Heart and pericardium: No detectable coronary arterial calcification.Unremarkable cardiac morphology and pericardium.Lymph nodes: No enlarged thoracic lymph nodes.Mediastinum: Unremarkable.Thoracic spine and chest wall: Unremarkable, wit h normal thoracic vertebralbody heights.Other Lines/Tubes/Devices/Hardware: NoneVisualized upper abdomen: The liver is not fully visualized but thought rolanda enlarged and demonstrates mild diffuse hypodensity, in keeping withfatty infiltration. The remaining visualized upper intradermal structuresappear unremarkable. IMPRESSIONNo acute or chronic pulmonary embolus up to the segmental level. Preliminary Report Dictated by Resident: Radha Knox MD., have reviewed this study and agree with theabove report.[facility] HospitalUrinalysis2020-10-27 20:52:00 Test Item Value Reference Range Interpretation Comments APPEARANCE (test code = Clear Clear 3291814666) COLOR (test code = Straw Yellow A 5789759788) PH (test code = 4.8-8.0 4872685529) SP GRAVITY (test code = 1.003-1.030 0290337113) GLU U QUAL (test code = Normal Normal 2652619618) BLOOD (test code = Negative Negative 8316100261) KETONES (test code = Negative Negative 3515445109) PROTEIN (test code = Negative Negative 2887-8) UROBILIN (test code = Normal Normal 9564335131) BILIRUBIN (test code = Negative Negative 9291576180) NITRITE (test code = Negative Negative 8014391010) LEUK ROXANE (test code = Negative Negative 5819918851) RBC/HPF (test code = See_Comment [Autom ated message] 1465588565) The system Team [employer] generated this result transmitted ref erence range: 0 - 3 HP F. The reference range was not used to int erpret this result as normal/abnormal . WBC/HPF (test code = See_Comment [Autom ated message] 1842531842) The system Team [employer] generated this result transmitted ref erence range: 0 - 5 HP F. The reference range was not used to int erpret this result as normal/abnormal . BACTERIA (test code = Few Negative A 3216494052) MUCOUS (test code = Slight Negative LPF A 6337048783) SQ EPITH (test code = HPF 3788803729) Lab Interpretation (test Abnormal code = 25505-3) [facility] 1 [id number] 20:38:53HISTORY: Chest pain. TECHNIQUE: Portable AP erect view of the chest is obtained. No prior cheststudyavailable for comparison. FINDINGS: No acute pneumonia. No pneumothorax or pleural effusion orpulmonary congestion detected. Cardiac size is within normal limits. CONCLUSIONS: No signs of acute cardiopulmonary disease.[facility], Radiant Results Inft User - 02/07/2020 3:40 PM CDTHISTORY: Chest pain.TECHNIQUE: Portable AP erect view of the chest is obtained. No prior cheststudy available for comparison.FINDINGS: No acute pneumonia. No pneumothorax or pleural effusion orpulmonary congestion detected. Cardiac size is within normal limits. CONCLUSIONS: No signs of acute cardiopulmonary disease. [facility] [id number] 20:36:00 Test Item Value Reference Range Interpretation Comments TROPONIN I (test <0.012 See_Comment [Automated code = 9937029765) message] The system which generated this result transmitted reference range : <=0.034 ng/mL. The reference range was not used to interpr et this result as normal/abnormal . JOSH (test code = Equal or Less than JOSH) 0.034 ng/ml---Normal ?Note: Cardiac troponin begins to rise 3-4 hours after the onset of ischemia. Repeat in 4-6 hours if the sample was drawn within 3-4 hours of the onset of the symptom and found normal. Between 0.035 and 0.120 ng/mL--- Borderline. Questionable myocardial injury or necrosis ? ?Note: Serial measurement may be necessary to confirm or exclude the diagnosis of myocardial injury or necrosis; Clinical correlation (symptoms, EKGs, imaging studies, and others) required; Repeat in 4-6 hours if clinically indicated. ? Equal or Higher than 0.121 ng/mL---Abnormal. Myocardial Injury or Necrosis Likely ? Biotin has been reported to cause a negative bias, interpret results relative to patient's use of biotin. ? Lab Interpretation Normal (test code = 84973-3) [facility] HospitalN-TERMINAL [id number] 20:33:00 Test Item Value Reference Range Interpretation Comments NT-proBNP (test code 53 pg/mL See_Comment [Autom ated = 0083841910) message] The system which generated this result transmitted reference range : <=125. The reference range was not used to interpret this result as normal/abnormal . JOSH (test code = JOSH) Biotin has been reported to cause a negative bias, interpret results relative to patient's use of biotin. Lab Interpretation Normal (test code = 00458-1) [facility] HospitalaPTT2020-10-27 20:29:00 Test Item Value Reference Range Interpretation Comments APTT Patient (test See_Comment [Automat ed code = 3173-2) message] The system which generated this result transmitted reference range : 23 - 38 Seconds . The reference range was not used to interpr et this result as normal/abnormal . JOSH (test code = JOSH) The [facility] patient population mean normal value for aPTT is 30 seconds. Lab Interpretation Normal (test code = 83662-5) [facility] HospitalProthrombin Time (PT) / [id number] 20:27:00 Test Item Value Reference Range Interpretation Comments PROTIME PATIENT (test See_Comment [Auto mated message] code = 5964-2) The system [employer] generated this result transmitted ref erence range: 12.0 - 1 4.7 Seconds. The re ference range was not u sed to interpret this result as normal/abnor mal. INR (test code = 6301-6) Nor mal INR <1.1; Warfarin Therap eutic range 2.0 to 3. 0 or 2.5 to 3.5, dep ending upon the indica tions. Lab Interpretation (test Normal code = 00936-0) [facility] Metabolic Panel (NA, K, CL, CO2, GLUCOSE, BUN, CREATININE, CA)2020-02-07 20:24:00 Test Item Value Reference Range Interpretation Comments NA (test code = 138 mmol/L 135-145 1925949569) K (test code = 3.9 mmol/L 3.5-5 8439325645) CL (test code = 98 mmol/L 98-108 6986724554) CO2 TOTAL (test code = 32 mmol/L 23-31 H 4314936848) AGAP (test code = 2-16 3630933594) BUN (test code = 13 mg/dL 7-23 8430314033) GLUCOSE (test code = 103 mg/dL 70-110 4827610166) CREATININE (test code = 1.33 mg/dL 0.5-1.04 H 2459925516) CALCIUM (test code = 10.0 mg/dL 8.6-10.6 7637707573) eGFR Calculation mL/min/1.73m2 (Non-) (test code = 8426100630) eGFR Calculation mL/min/1.73m2 () (test code = 3026732579) JOSH (test code = JOSH) Association of Glomerular Filtration Rate (GFR) and Staging of Kidney Disease* + --+ --+ ------+| GFR (mL/min/1.73 m2) ?| With Kidney Damage ?| ?Without Kidney Damage+ --------+ --------+ +| ?>90 ?| ?Stage one ?| ? Normal ?+ ---+ ---+ -------+| ?60-89 ?| ?Stage two ?| ? Decreased GFR ? + --+ --+ ------+| ?30-59 ?| ?Stage three ?| ? Stage three ? + --+ --+ ------+| ?15-29 ?| ?Stage four ? | ? Stage four ?+ ---+ ---+ -------+| ?<15 (or dialysis) ? ?| ?Stage five ? | ? Stage five ?+ ---+ ---+ -------+ *Each stage assumes the associated GFR level has been in effect for at least three months. ?Stages 1 to 5, with or without kidney disease, indicate chronic kidney disease. Notes: Determination of stages one and two (with eGFR >59mL/min/1.73 m2) requires estimation of kidney damage for at least three months as defined by structural or functional abnormalities of the kidney, manifested by either:Pathological abnormalities or Markers of kidney damage (including abnormalities in the composition of the blood or urine or abnormalities in imaging tests). Lab Interpretation Abnormal (test code = 67538-5) [facility] HospitalHepatic Function Panel (ALB, T.PRO, BILI T, BU/BC, ALT, AST, ALK PHOS)2020-02-07 20:24:00 Test Item Value Reference Range Interpretation Comments TOTAL BILI (test code = 9309773067) 0.4 mg/dL 0.1-1.1 BILI UNCON (test code = 4900805212) 0.3 mg/dL 0.1-1.1 BILI CONJ (test code = 7585789268) 0.0 mg/dL 0-0.3 T PROTEIN (test code = 2596655095) 7.4 g/dL 6.3-8.2 ALBUMIN (test code = 2462396074) 4.4 g/dL 3.5-5 ALK PHOS (test code = 0701639875) 99 U/L 34-122 ALTv (test code = 1742-6) 16 U/L 5-35 AST(SGOT) (test code = 4728113729) 19 U/L 13-40 Lab Interpretation (test code = Normal 76566-7) [facility] HospitalLipase [id number] 20:24:00 Test Item Value Reference Range Interpretation Comments LIPASE (test code = 0891151992) 393 U/L 0-220 H Lab Interpretation (test code = Abnormal 21159-8) [facility] with [id number] 20:19:00 Test Item Value Reference Range Interpretation Comments WBC (test code = See_Comment [Automated message] 6690-2) The system Team [employer] generated this result transmitted ref erence range: 4.30 - 1 1.10 10*3/?L. The re ference range was not u sed to interpret this result as normal/abnor mal. RBC (test code = See_Comment [Automated message] 789-8) The system Team [employer] generated this result transmitted ref erence range: 3.93 - 5 .25 10*6/?L. The re ference range was not u sed to interpret this result as normal/abnor mal. HGB (test code = 14.5 g/dL 11.6-15 718-7) HCT (test code = 43.3 % 35.7-45.2 4544-3) MCV (test code = 89.8 fL 80.6-95.5 787-2) MCH (test code = 30.1 pg 25.9-32.8 785-6) MCHC (test code = 33.5 g/dL 31.6-35.1 786-4) RDW-SD (test code 43.5 fL 39-49.9 = 07779-8) RDW-CV (test code 13.2 % 12-15.5 = 788-0) PLT (test code = See_Comment [Automated message] 777-3) The system Team [employer] generated this result transmitted ref erence range: 166 - 35 8 10*3/?L. The re ference range was not u sed to interpret this result as normal/abnor mal. MPV (test code = 12.1 fL 9.5-12.9 65636-9) NRBC/100 WBC (test See_Comment [Automat ed message] code = 9160034939) The syste m which generated this result transmitted ref erence range: 0.0 - 10 .0 /100 WBCs. The refer ence range was not u sed to interpret this result as normal/abnor mal. NRBC x10^3 (test <0.01 See_Comment [Automated message] code = 0619324690) The syste m which generated this result transmitted ref erence range: 10*3/?L. The reference range was not used to interpr et this result as normal/abnormal . GRAN MAT (NEUT) % 62.9 % (test code = 770-8) IMM GRAN % (test 0.50 % code = 8381752490) LYMPH % (test code 26.9 % = 736-9) MONO % (test code 7.8 % = 5905-5) EOS % (test code = 1.2 % 713-8) BASO % (test code 0.7 % = 706-2) GRAN MAT 6.08 10*3/uL 1.88-7.09 x10^3(ANC) (test code = 5636710835) IMM GRAN x10^3 0.05 10*3/uL 0-0.06 (test code = 5414317957) LYMPH x10^3 (test 2.61 10*3/uL 1.32-3.29 code = 731-0) MONO x10^3 (test 0.76 10*3/uL 0.33-0.92 code = 742-7) EOS x10^3 (test 0.12 10*3/uL 0.03-0.39 code = 711-2) BASO x10^3 (test 0.07 10*3/uL 0.01-0.07 code = 704-7) [facility] HospitalPOCT [id number] 20:03:00 Test Item Value Reference Range Interpretation Comments POCT PREG (test code = 1605) Negative On board controls acceptable with Present C Line (test code = 3574) POCT PREG LOT # (test code = 3575) [id number] POCT PREG TEST DATE (test 07/11/2021 code = 3576) Lab Interpretation (test code = Normal 38916-4) [facility] ABDOMEN PELVIS W [id number] 00:58:03Impression: 1. Bilateral pyelonephritis.2. Mild right renal cortical scarring.3. Mild hepatomegaly. RL: 460 End of Report Ordering Physician: MARK ARMIJO History: Acute generalized abdominal pain. Technique: CT abdomen and pelvis with intravenous contrast. Thisexamination was performed according to ALARA principles. Comparison: None. Findings: The liver is mildly enlarged. The gallbladder, spleen, pancreas, andadrenal glands are unremarkable. There is subtle cortical hypoenhancementwithin the superior poles of both kidneys, best appreciated on coronal andsagittal images. There is no hydronephrosis. Right renal cortical scarringispresent. Evaluation of the stomach is limited by lack of distention, butno gross gastric abnormalities are apparent. No uterine or adnexal abnormalities are evident. The urinary bladder isunremarkable in appearance. There is no evidence of colitis ordiverticulitis. The appendix is normal. There is no bowel obstruction.There is no free intraperitoneal fluid or free intraperitoneal air. Theincluded lung bases are clear. The included bony structures areunremarkable. [facility], Radiant Results Inft User - 01/24/2020 7:59 PM CDTOrdering Physician: MARK Dewitt FOLEYHistory: Acute generalized abdominal pain.Technique: CT abdomen and pelvis with intravenous contrast. Thisexamination was performed according to ALARA principles.Comparison: None.Findings: The liver is mildly enlarged. The gallbladder, spleen, pancreas, andadrenal glands are unremarkable. There is subtle cortical hypoenhancementwithin the superior poles of both kidneys, best appreciated on coronal andsagittal images. There is no hydronephrosis. Right renal cortical scarringis present. Evaluation of the stomach is limited by lack of distention, butno gross gastric abnormalities are apparent.No uterine or adnexal abnormalities are evident. The urinary bladder isunremarkable in appearance. There is no evidence of colitis ordiverticulitis. The appendix is normal. There is no bowel obstruction.There is no free intraperitoneal fluid or free intraperitoneal air. Theincluded lung bases are clear. The included bony structures areunremarkable.IMPRESSIONImpression: 1. Bilateral pyelonephritis.2. Mild right renal cortical scarring.3. Mild hepatomegaly.RL: 460End of Report UnSt[facility]PO[facility] TEST 2020-01-24 23:22:00 Test Item Value Reference Range Interpretation Comments POCT PREG (test code = 1605) negative On board controls acceptable with present C Line (test code = 3574) POCT PREG LOT # (test code = 3575) [id number] POCT PREG TEST DATE (test 2020-11-10 code = 3576) Lab Interpretation (test code = Normal 14607-5) [facility] HospitalURINALYSIS2020-10-13 23:21:00 Test Item Value Reference Range Interpretation Comments APPEARANCE (test code = Hazy Clear A 5572696792) COLOR (test code = Yellow Yellow 3374820559) PH (test code = 4.8-8.0 2993654073) SP GRAVITY (test code = 1.003-1.030 7869413086) GLU U QUAL (test code = Normal Normal 0969153738) BLOOD (test code = Negative Negative 5979582195) KETONES (test code = Negative Negative 5731986361) PROTEIN (test code = Negative Negative 2887-8) UROBILIN (test code = Normal Normal 5890048534) BILIRUBIN (test code = Negative Negative 2299684790) NITRITE (test code = Negative Negative 8487605853) LEUK ROXANE (test code = 250/uL Negative A 6442403491) RBC/HPF (test code = See_Comment [Autom ated message] 1684239140) The system Team [employer] generated this result transmitted ref erence range: 0 - 3 HP F. The reference range was not used to int erpret this result as normal/abnormal . WBC/HPF (test code = See_Comment H [Autom ated message] 4723191222) The system Team [employer] generated this result transmitted ref erence range: 0 - 5 HP F. The reference range was not used to int erpret this result as normal/abnormal . BACTERIA (test code = Moderate Negative A 6756483684) MUCOUS (test code = Slight Negative LPF A 1435306939) SQ EPITH (test code = HPF 8834847779) Lab Interpretation (test Abnormal code = 61600-1) [facility] HospitalCOM. METABOLIC PANEL (46675)2020-01-24 23:01:00 Test Item Value Reference Range Interpretation Comments NA (test code = 139 mmol/L 135-145 0098650992) K (test code = 4.0 mmol/L 3.5-5 5128630994) CL (test code = 98 mmol/L 98-108 6631798182) CO2 TOTAL (test code = 30 mmol/L 23-31 5154636623) AGAP (test code = 2-16 4071319046) BUN (test code = 13 mg/dL 7-23 5477933087) GLUCOSE (test code = 105 mg/dL 70-110 0390417434) CREATININE (test code 1.00 mg/dL 0.5-1.04 = 7109700881) TOTAL BILI (test code 0.5 mg/dL 0.1-1.1 = 8584341383) CALCIUM (test code = 10.4 mg/dL 8.6-10.6 7977892675) T PROTEIN (test code = 7.7 g/dL 6.3-8.2 0968400687) ALBUMIN (test code = 4.5 g/dL 3.5-5 5669501940) ALK PHOS (test code = 118 U/L 34-122 2637650078) ALTv (test code = 30 U/L 5-35 1742-6) AST(SGOT) (test code = 22 U/L 13-40 [id number]) eGFR Calculation mL/min/1.73m2 (Non-) (test code = 0979160978) eGFR Calculation mL/min/1.73m2 () (test code = 7222547051) JOSH (test code = JOSH) Association of Glomerular Filtration Rate (GFR) and Staging of Kidney Disease* + -+ + ---+| GFR (mL/min/1.73 m2) ?| With Kidney Damage ?| ?Without Kidney Damage+ -------+ ------+ ---------+| ?>90 ?| ?Stage one ?| ? Normal ?+ --+ -+ ----+| ?60-89 ?| ?Stage two ?| ? Decreased GFR ? + -+ + ---+| ?30-59 ?| ?Stage three ?| ? Stage three ? + -+ + ---+| ?15-29 ?| ?Stage four ? | ? Stage four ?+ --+ -+ ----+| ?<15 (or dialysis) ? ?| ?Stage five ? | ? Stage five ?+ --+ -+ ----+ *Each stage assumes the associated GFR level has been in effect for at least three months. ?Stages 1 to 5, with or without kidney disease, indicate chronic kidney disease. Notes: Determination of stages one and two (with eGFR >59mL/min/1.73 m2) requires estimation of kidney damage for at least three months as defined by structural or functional abnormalities of the kidney, manifested by either:Pathological abnormalities or Markers of kidney damage (including abnormalities in the composition of the blood or urine or abnormalities in imaging tests). [facility] 23:00:00 Test Item Value Reference Range Interpretation Comments LIPASE (test code = 0604556214) 125 U/L 0-220 Lab Interpretation (test code = Normal 14748-1) [facility] WITH [id number] 22:55:00 Test Item Value Reference Range Interpretation Comments WBC (test code = See_Comment [Automated message] 1590-2) The system Team [employer] generated this result transmitted ref erence range: 4.30 - 1 1.10 10*3/?L. The re ference range was not u sed to interpret this result as normal/abnor mal. RBC (test code = See_Comment [Automated message] 679-8) The system Team [employer] generated this result transmitted ref erence range: 3.93 - 5 .25 10*6/?L. The re ference range was not u sed to interpret this result as normal/abnor mal. HGB (test code = 14.8 g/dL 11.6-15 718-7) HCT (test code = 44.7 % 35.7-45.2 4544-3) MCV (test code = 89.6 fL 80.6-95.5 787-2) MCH (test code = 29.7 pg 25.9-32.8 785-6) MCHC (test code = 33.1 g/dL 31.6-35.1 786-4) RDW-SD (test code 43.5 fL 39-49.9 = 21552-1) RDW-CV (test code 13.3 % 12-15.5 = 788-0) PLT (test code = See_Comment [Automated message] 787-3) The system Team [employer] generated this result transmitted ref erence range: 166 - 35 8 10*3/?L. The re ference range was not u sed to interpret this result as normal/abnor mal. MPV (test code = 11.6 fL 9.5-12.9 59708-4) NRBC/100 WBC (test See_Comment [Automat ed message] code = 7231653267) The syste m which generated this result transmitted ref erence range: 0.0 - 10 .0 /100 WBCs. The refer ence range was not u sed to interpret this result as normal/abnor mal. NRBC x10^3 (test <0.01 See_Comment [Automated message] code = 1658918430) The syste m which generated this result transmitted ref erence range: 10*3/?L. The reference range was not used to interpr et this result as normal/abnormal . GRAN MAT (NEUT) % 59.7 % (test code = 770-8) IMM GRAN % (test 0.40 % code = 3027356015) LYMPH % (test code 29.5 % = 736-9) MONO % (test code 8.2 % = 5905-5) EOS % (test code = 1.7 % 713-8) BASO % (test code 0.5 % = 706-2) GRAN MAT 5.93 10*3/uL 1.88-7.09 x10^3(ANC) (test code = 7925148962) IMM GRAN x10^3 0.04 10*3/uL 0-0.06 (test code = 0518172631) LYMPH x10^3 (test 2.93 10*3/uL 1.32-3.29 code = 731-0) MONO x10^3 (test 0.81 10*3/uL 0.33-0.92 code = 742-7) EOS x10^3 (test 0.17 10*3/uL 0.03-0.39 code = 711-2) BASO x10^3 (test 0.05 10*3/uL 0.01-0.07 code = 704-7) [facility] P[facility] W [id number] 19:13:50CT Abdomen and Pelvis with intravenous contrast. CLINICAL HISTORY: Acute generalized abdominal pain.DOSE: Up-to-date CT equipment and radiation dose reduction techniques wereemployed. CTDIvol: 7.23 mGy. DLP: 351 mGy-cm. TECHNIQUE : Contiguous axial imaging from the level of the lung basesthrough the pubic symphysis were performed after the uncomplicatedadministration of Omnipaque contrast material.Coronal and sagittalreconstructions were obtained. Auto mA and/or iterative reconstruction wereused to reduce radiation dose. FINDINGS: ? Lower lungs: Clear. No pleural effusion or pericardial effusion. Liver, Gallbladder and Spleen: Liver is approximately 17.3 cm in length andspleen is 11.5 x 4.5 cm.No focal liver lesions are detected. Unusualanatomy noted with one of the right lower hepatic vein directly enteringIVC just above the right renal vein. No calcified gallstones. Biliary duct is of normal size. Pancreatic duct isslightly dilated without any apparent cause. Peritoneum: ?No free air or free fluid. Subcentimeter lymph nodes are seenin the right lower quadrant of the abdomen. Pancreas andAdrenals: ?Unremarkable pancreas and adrenal glands. Kidneys and Ureters: ?No visible calculi in therenal collecting systems. No hydroureter. The right ureter is slightly dilated without any apparentcause. No enhancing kidney lesions. Vessels: Normal. Retroperitoneum: No abnormal fluid or lymphadenopathy. Bowel: Mild diverticulosis of the sigmoid and descending colon notedwithout any acute changes of diverticulitis. Normal appendix is visualized.Small bowel gas pattern is unremarkable. Bladder and R eproductive Organs: No gross pathology is seen in theunopacified urinary bladder. Cysts are present in both ovaries, largestappears to be in the right ovary of 2.2 cm size, could be physiologic.Minimalfree fluid noted in the cul-de-sac. Bones: Mild lumbar levoscoliosis is noted. No aggressive bone les ions orcompression deformity seen in the lower thoracic or lumbar vertebralbodies. Soft tissues: Unremarkable. CONCLUSION: No acute intra- abdominal or intrapelvic abnormalities detected.Please see additional comments above. [facility], Radiant Results Inft User - 06/02/2019 1:14 PM CSTCT Abdomen and Pelvis with intravenous contrast.CLINICAL HISTORY: Acute generalized abdominal pain.DOSE: Up-to-date CTequipment and radiation dose reduction techniques wereemployed. CTDIvol: 7.23 mGy. DLP: 351 mGy-cm.TECHNIQUE : Contiguous axial imaging from the level of the lung basesthrough the pubic symphysis were performed after the uncomplicatedadministration of Omnipaque contrast material. Coronal and sagittalreconstructions were obtained. Auto mA and/or iterative reconstruction wereused to reduce radiation dose.FINDINGS: Lower lungs: Clear. No pleural effusion or pericardial effusion.Liver, Gallbladder and Spleen: Liver is approximately 17.3 cm in length andspleen is 11.5 x 4.5 cm. No focal liver lesions are detected. Unusualanatomy noted with one of the right lower hepatic vein directly enteringIVC just above the right renal vein.No calcified gallstones. Biliary duct is of normal size. Pancreatic duct isslightly dilated without any apparent cause.Peritoneum: No free air or free fluid. Subcentimeter lymph nodes are seenin the right lower quadrant of the abdomen.Pancreas and Adrenals: Unremarkable pancreas and adrenal glands.Kidneys and Ureters: No visible calculi in the renal collecting systems. Nohydroureter. The right ureter is slightly dilated without any apparentcause. No enhancing kidney lesions. Vessels: Normal.Retroperitoneum: No abnormal fluid or lymphadenopathy.Bowel: Mild diverticulosis of the sigmoid and descending colon notedwithout any acute changes of diverticulitis. Normal appendix is visualized.Small bowel gas pattern is unremarkable.Bladder and Reproductive Organs: No gross pathology is seen in theunopacified urinary bladder. Cysts are present in both ovaries, largestappears to be in the right ovary of 2.2 cm size, could be physiologic.Minimal free fluid noted in the cul-de-sac.Bones: Mild lumbar levoscoliosis is noted. No aggressive bone lesions orcompression deformity seen in the lower thoracic or lumbar vertebralbodies.Soft tissues: Unremarkable.CONCLUSION: No acute intra-abdominal or intrapelvic abnormalities detected.Please see additional comments above.[facility] [id number] 18:13:00 Test Item Value Reference Range Interpretation Comments APPEARANCE (test code = Clear Clear 5957035230) COLOR (test code = Yellow Yellow 5891251413) PH (test code = 4.8-8.0 8690970335) SP GRAVITY (test code = 1.003-1.030 7053629169) GLU U QUAL (test code = Normal Normal 7088790404) BLOOD (test code = Negative Negative 7828890710) KETONES (test code = Negative Negative 1801642652) PROTEIN (test code = Negative Negative 2887-8) UROBILIN (test code = Normal Normal 9280779768) BILIRUBIN (test code = Negative Negative 9511829426) NITRITE (test code = Negative Negative 7290546248) LEUK ROXANE (test code = Negative Negative 8341398458) RBC/HPF (test code = See_Comment [Autom ated message] 9089387440) The system Team [employer] generated this result transmitted ref erence range: 0 - 3 HP F. The reference range was not used to int erpret this result as normal/abnormal . WBC/HPF (test code = See_Comment [Autom ated message] 1013808575) The system Team [employer] generated this result transmitted ref erence range: 0 - 5 HP F. The reference range was not used to int erpret this result as normal/abnormal . BACTERIA (test code = Negative Negative 8255004924) MUCOUS (test code = Slight Negative LPF A 7459577381) SQ EPITH (test code = HPF 6724594780) Lab Interpretation (test Abnormal code = 93953-8) [facility] HospitalCOMP. METABOLIC PANEL (12416)2019-06-02 18:09:00 Test Item Value Reference Range Interpretation Comments NA (test code = 138 mmol/L 135-145 2136200619) K (test code = 4.2 mmol/L 3.5-5 6545061204) CL (test code = 102 mmol/L 98-108 0758985707) CO2 TOTAL (test code = 27 mmol/L 23-31 8278800995) AGAP (test code = 2-16 6434364776) BUN (test code = 12 mg/dL 7-23 7960569623) GLUCOSE (test code = 93 mg/dL 70-110 7706651724) CREATININE (test code 0.73 mg/dL 0.5-1.04 = 1510208851) TOTAL BILI (test code 0.4 mg/dL 0.1-1.1 = 5940512385) CALCIUM (test code = 9.5 mg/dL 8.6-10.6 4132722559) T PROTEIN (test code = 7.3 g/dL 6.3-8.2 4129378964) ALBUMIN (test code = 4.6 g/dL 3.5-5 4461955621) ALK PHOS (test code = 84 U/L 34-122 1636357576) ALTv (test code = 12 U/L 5-35 1742-6) AST(SGOT) (test code = 21 U/L 13-40 3521527286) eGFR Calculation mL/min/1.73m2 (Non-) (test code = 1352325079) eGFR Calculation mL/min/1.73m2 () (test code = 5796519219) JOSH (test code = JOSH) Association of Glomerular Filtration Rate (GFR) and Staging of Kidney Disease* + -+ + ---+| GFR (mL/min/1.73 m2) ?| With Kidney Damage ?| ?Without Kidney Damage+ -------+ ------+ ---------+| ?>90 ?| ?Stage one ?| ? Normal ?+ --+ -+ ----+| ?60-89 ?| ?Stage two ?| ? Decreased GFR ? + -+ + ---+| ?30-59 ?| ?Stage three ?| ? Stage three ? + -+ + ---+| ?15-29 ?| ?Stage four ? | ? Stage four ?+ --+ -+ ----+| ?<15 (or dialysis) ? ?| ?Stage five ? | ? Stage five ?+ --+ -+ ----+ *Each stage assumes the associated GFR level has been in effect for at least three months. ?Stages 1 to 5, with or without kidney disease, indicate chronic kidney disease. Notes: Determination of stages one and two (with eGFR >59mL/min/1.73 m2) requires estimation of kidney damage for at least three months as defined by structural or functional abnormalities of the kidney, manifested by either:Pathological abnormalities or Markers of kidney damage (including abnormalities in the composition of the blood or urine or abnormalities in imaging tests). [facility] HospitalLipase [id number] 18:09:00 Test Item Value Reference Range Interpretation Comments LIPASE (test code = 5506790311) 108 U/L 0-220 Lab Interpretation (test code = Normal 59823-1) [facility] WITH [id number] 18:01:00 Test Item Value Reference Range Interpretation Comments WBC (test code = See_Comment [Automated message] 6690-2) The system Team [employer] generated this result transmitted ref erence range: 4.30 - 1 1.10 10*3/?L. The re ference range was not u sed to interpret this result as normal/abnor mal. RBC (test code = See_Comment [Automated message] 979-8) The system Team [employer] generated this result transmitted ref erence range: 3.93 - 5 .25 10*6/?L. The re ference range was not u sed to interpret this result as normal/abnor mal. HGB (test code = 13.5 g/dL 11.6-15 718-7) HCT (test code = 42.0 % 35.7-45.2 4544-3) MCV (test code = 89.4 fL 80.6-95.5 787-2) MCH (test code = 28.7 pg 25.9-32.8 785-6) MCHC (test code = 32.1 g/dL 31.6-35.1 786-4) RDW-SD (test code 46.2 fL 39-49.9 = 19107-1) RDW-CV (test code 14.1 % 12-15.5 = 788-0) PLT (test code = See_Comment [Automated message] 777-3) The system Team [employer] generated this result transmitted ref erence range: 166 - 35 8 10*3/?L. The re ference range was not u sed to interpret this result as normal/abnor mal. MPV (test code = 10.8 fL 9.5-12.9 47939-7) NRBC/100 WBC (test See_Comment [Automat ed message] code = 3600151300) The syste [employer] which generated this result transmitted ref erence range: 0.0 - 10 .0 /100 WBCs. The refer ence range was not u sed to interpret this result as normal/abnor mal. NRBC x10^3 (test <0.01 See_Comment [Automated message] code = 1571504631) The syste m which generated this result transmitted ref erence range: 10*3/?L. The reference range was not used to interpr et this result as normal/abnormal . GRAN MAT (NEUT) % 69.9 % (test code = 770-8) IMM GRAN % (test 0.70 % code = 2618215769) LYMPH % (test code 21.2 % = 736-9) MONO % (test code 6.2 % = 5905-5) EOS % (test code = 1.4 % 713-8) BASO % (test code 0.6 % = 706-2) GRAN MAT 6.08 10*3/uL 1.88-7.09 x10^3(ANC) (test code = 8151356713) IMM GRAN x10^3 0.06 10*3/uL 0-0.06 (test code = 4654637380) LYMPH x10^3 (test 1.84 10*3/uL 1.32-3.29 code = 731-0) MONO x10^3 (test 0.54 10*3/uL 0.33-0.92 code = 742-7) EOS x10^3 (test 0.12 10*3/uL 0.03-0.39 code = 711-2) BASO x10^3 (test 0.05 10*3/uL 0.01-0.07 code = 704-7) [facility] HospitalPOCT Test, [id number] 17:48:00 Test Item Value Reference Range Interpretation Comments POCT PREG (test code = 1605) negative POCT PREG LOT # (test code = 3575) [id number] POCT PREG TEST DATE (test 11/10/2020 code = 3576) Lab Interpretation (test code = Normal 12960-8) [facility]- XR CHEST 1 [id number] 19:54:00 Name: VIC JAMES [facility] : 1980 Age/S: 38 / F [address] Unit #: [id number] Loc: [place] [address] Phys: Génesis King MD Acct: [id number] Dis Date: Status: ADM IN PHONE #: [phone] Exam Date: 02/22/20191940 FAX #: Reason: SOB EXAMS: CPT: [id number] XR CHEST 1 V 68520 Fluoro Time: DAP (Gy m2): Air Kerma (mGy): DICTATION LOCATION: H48 HISTORY: Female, 38 years of age with SOB EXAM: CHEST X-RAY, ONE VIEW COMPARISON: Correlation made with CT abdomen and pelvis performed 02/19/2019 COMMENT: Frontal view of the chest is provided. There are mild perihilar interstitial opacities. No lobar consolidation or mass lesion. Small right pleural effusion noted. Cardiac silhouette iswithin normal limits. No acute bony abnormalities. IMPRESSION: Mild perihilar edema and small right pleural effusion. at 4 Reported and signed by: Caridad Vyas MD CC: Jordan Jean MD; Cony Partida MD; Génesis King MD PAGE 1 Signed Report Name: VIC JAMES [facility] : 1980 Age/S: 38 / F [address] Unit #: [id number] Loc: [place] [address] Phys: Génesis King MD Acct: [id number] Dis Date: Status: ADM IN PHONE #: [phone] Exam Date: 02/22/20191940 FAX #: Reason: SOB EXAMS: CPT: [id number] XR CHEST 1 V 89064Sbyajs Time: DAP (Gy m2): Air Kerma (mGy): <Continued> Technologist: Jordan Chacon, RT(R)(CT) Trnscb Date/Time: 02/22/2019 (1953) [email or web address] Orig Print D/T: S: 02/22/2019 (1956) PAGE 2 Signed Report- RETRO [id number] 15:32:00 Name: VIC JAMES [place] : 1980 Age/S: 38 / F [address] Unit #: [id number] Loc: [place] [address] Phys: Génesis King MD Acct: [id number] Dis Date: Status: ADM IN PHONE #: [phone] Exam Date: 02/22/2019 1200 FAX #: Reason: back pain EXAMS: CPT: [id number] US RETRO LTD 03503 EXAMINATION: - US RETRO LTD. LOCATION: T18. [...] signed by: Thuan Ricardo M.D. CC: Jordan Cartwright MD; Cony Partida MD; Génesis King MD Technologist: Nina Andrews, RT(R),IMAN(AB) [facility] b Date/Time: 02/22/2019 (1532) tLYR.[email or web address] PAGE 1 Signed Report Name: VIC JAMES [facility] : 1980 Age/S: 38 / F [address] Unit #: [id number] Loc: [place] [address] Phys: Génesis King MD Acct: [id number] Dis Date: Status: ADM IN PHONE #: [phone] Exam Date: 02/22/2019 1200 FAX #: Reason: back pain EXAMS: CPT: [id number] US RETRO LTD [address] <Continued> Orig Print D/T: S: 02/22/2019 (1854) Probe: PAGE 2 Signed ReportCBC W/AUTO DIFF 2019-02-22 12:09:00 Test Item Value Reference Range Interpretation Comments WHITE BLOOD CELL (test 9.9 K/mm3 3.5-11.0 N code = WBC) RED BLOOD CELL (test 3.37 M/mm3 4.70-6.10 L code = RBC) HEMOGLOBIN (test code 8.9 G/DL 10.4-14.9 L = HGB) HEMATOCRIT (test code 28.5 % 31.5-44.1 L = HCT) MEAN CELL VOLUME (test 84.6 Fl 84.5-98.6 N code = MCV) MEAN CELL HGB (test 26.4 pg 27.0-34.2 L code = MCH) MEAN CELL HGB 31.2 G/DL 31.5-34.0 L CONCETRATION (test code = MCHC) PLATELET COUNT (test 246.0 K/mm3 150-450 N code = PLT) MEAN PLATELET VOLUME 10.10 fL 7.0-10.5 N (test code = MPV) NEUTROPHIL % (test 74.9 % 40-76 N code = NT%) LYMPHOCYTE % (test 14.9 % 20.5-51.1 L code = LY%) MONOCYTE % (test code 9.0 % 1.7-9.3 N = MO%) EOSINOPHIL % (test 1.0 % 0.0-6.0 N code = EO%) BASOPHIL % (test code 0.2 % 0.0-2.0 N = BA%) NEUTROPHIL # (test 7.37 K/mm3 1.8-7.6 N code = NT#) LYMPHOCYTE # (test 1.5 K/mm3 0.6-3.2 N code = LY#) MONOCYTE # (test code 0.9 K/mm3 0.3-1.1 N = MO#) EOSINOPHIL # (test 0.1 K/mm3 0.0-0.4 N code = EO#) BASOPHIL # (test code 0.0 K/mm3 0.0-0.1 N = BA#) MANUAL DIFF REQUIRED NO DIFF/SCN CRITERIA SLIDE R TOBYW (test code = MDIFF) CONSISTA NT WITH AUTO DIFFERENTIAL. RBC [id number] 12:09:00 Test Item Value Reference Range Interpretation Comments ANISOCYTOSIS (test code = 1+ NONE ANISO) MICROCYTOSIS (test code = 1+ ON SCAN NONE MICR) PLATELET ESTIMATE (test ADEQUATE THOUSAND ADEQUATE code = PLTEST) PLATELET MORPHOLOGY (test NORMAL code = PLTMORPH) CBC W/AUTO [id number] 12:08:00 Test Item Value Reference Range Interpretation [...] = NO DIFF/SCN CRITERIA MDIFF) CBC W/AUTO [id number] 12:08:00 Test Item Value Reference Range Interpretation [...] code = NO DIFF/SCN CRITERIA MDIFF) RBC [id number] 12:08:00 Test Item Value Reference Range Interpretation Comments ANISOCYTOSIS (test code = 1+ NONE ANISO) MICROCYTOSIS (test code = 1+ ON SCAN NONE MICR) PLATELET ESTIMATE (test ADEQUATE THOUSAND ADEQUATE code = PLTEST) PLATELET MORPHOLOGY (test NORMAL code = PLTMORPH) CBC W/AUTO [id number] 12:08:00 Test Item Value Reference Range Interpretation [...] = NO DIFF/SCN CRITERIA MDIFF) BASIC METABOLIC [id number] 07:07:00 Test Item Value Reference Range Interpretation [...] CA) 7.8 MG/DL 8.5-10.1 L CBC W/AUTO [id number] 06:58:00 Test Item Value Reference Range Interpretation [...] ng/mL are obtained. - CT ABD PELVIS [id number] 20:34:00 Name: VIC JAMES [place] : 1980 Age/S: 38 / F [address] [address] Unit #: [id number] Loc: [place] [address] Phys: Cony Partida MD Acct: [id number] Dis Date: Status: ADM IN PHONE #: [phone] Exam Date: 02/19/20192024 FAX #: Reason: acute PN, possible ureteral stone EXAMS: CPT: [id number] CT ABD PELVIS W/CONT 36829 CT Abdomen and Pelvis with contrast. Location: [...] RT(R)(CT) CTDI: DLP: Trnscb Date/Time: 02/19/2019 (2033) [email or web address] Orig Print D/T: S: 02/19/2019 (2036) PAGE 1 Signed ReportUA RFLX MICR CULT IF [id number] 19:43:00 Test Item Value Reference Range Interpretation [...] culture: Flank PainUA RFLX MICR CULT IF [id number] 19:28:00 Test Item Value Reference Range Interpretation [...] - 50,000 2ND & 3RD TRIMESTER LACTIC [id number] 18:52:00 Test Item Value Reference Range Interpretation Comments LACTIC ACID (test code = LACT) 0.7 mmol/L 0.4-2.0 N CBC W/AUTO [id number] 17:55:00 Test Item Value Reference Range Interpretation [...] MDIFF) CONSISTA NT WITH AUTO DIFFERENTIAL. RBC [id number] 17:55:00 Test Item Value Reference Range Interpretation Comments ANISOCYTOSIS (test code = ANISO) 1+ NONE CBC W/AUTO [id number] 17:54:00 Test Item Value Reference Range Interpretation [...] CONSISTA NT WITH AUTO DIFFERENTIAL. CBC W/AUTO [id number] 17:54:00 Test Item Value Reference Range Interpretation [...] CONSISTA NT WITH AUTO DIFFERENTIAL. BASIC METABOLIC [id number] 17:43:00 Test Item Value Reference Range Interpretation [...] Unit/L 84-246 N code = LDH) LACTIC [id number] 17:43:00 Test Item Value Reference Range Interpretation Comments LACTIC ACID (test code = LACT) 0.8 mmol/L 0.4-2.0 N BASIC METABOLIC [id number] 17:36:00 Test Item Value Reference Range Interpretation [...] code Unit/L 84-246 = LDH) CBC W/AUTO [id number] 17:35:00 Test Item Value Reference Range Interpretation [...] DIFF REQUIRED (test code = DIFF/SCN CRITERIA MDIFF)"
[2021-06-28 15:07] LABS: Urine Blood Trace-intact (Negative); Urine Glucose Negative (Negative); Urine Protein Negative (Negative); Urine Specific Gravity >=1.030 (1.005-1.030); Urine pH 5.5 (5.0-7.0)
[2021-06-28] MEDS ORDERED: ONDANSETRON 4 MG/2 ML VIAL ONE (15:42)
[2021-06-28] MEDS ORDERED: NA CHLORIDE 0.9% 1,000 ML ONE (15:42)
[2021-06-28] MEDS ORDERED: KETOROLAC 30 MG/ML INJ ONE (16:26)
[2021-06-28 16:27] LABS: Absolute Lymphocytes (CBC) 2.5 K/uL (0.7-4.9); Hematocrit 43.4 % (36.0-45.0); Lymphocytes % 21.2 % (15.3-44.8); MPV 9.1 fL (7.6-11.3); RBC Red Blood Cell Count 4.79 M/uL (3.86-4.86)
[2021-06-28 16:32] LABS: Bilirubin Total 0.5 mg/dL (0.2-1.0); Potassium 3.9 mmol/L (3.5-5.1); Protein, Total 8.1 g/dL (6.4-8.2)
[2021-06-28 16:50] LABS: Urine Bacteria >50 /HPF (<20); Urine RBC NONE SEEN /HPF (NONE SEEN)
--- NOTE | 2021-06-28 17:23 | RAD REPORT ---
EXAM DESCRIPTION: CT - Stone Protocol - 06/28/2021 5:10 pm CLINICAL HISTORY: Flank pain. FLANK PAIN COMPARISON: Abdomen Pelvis W Contrast dated 07/26/2020 TECHNIQUE: Axial images were obtained without oral or IV contrast. Lack of contrast limits solid org an and vascular assessment. The gomof-hp-hrtj spans the entirety of the system partially obscuring uppermost abdomen and lung bases. Coronal reformatted images were obtained and reviewed. All CT scans are performed using dose optimization technique as appropriate and may include automated exposure control or mA/KV adjustment according to patient size. FINDINGS: The lower lung mohan are clear. Imaged portions of the liver and spleen show no suspicious findings on non-contrast imaging. The panc reas and adrenal glands are normal. No pathologic lymphadenopathy in the abdomen or pelvis. No urinary tract stones or obstructive uropathy. No bowel obstruction, free air, free fluid or abscess. Normal appendix noted.Mild sigmoid diverticulo sis coli without diverticulitis No significant bony abnormality. IMPRESSION: No urinary tract stones or obstructive uropathy.
[2021-06-28] MEDS ORDERED: FENTANYL CITR 100 MCG/2 ML ONE (17:40)
[2021-06-28] MEDS ORDERED: CEFTRIAXONE 1000 MG/VIAL ONE (17:50)
--- NOTE | 2021-06-28 18:02 | RAD REPORT ---
EXAM DESCRIPTION: US - Abdomen Exam Limited - 06/28/2021 5:53 pm CLINICAL HISTORY: FLANK PAIN COMPARISON: ABDOMINAL EXAM LIMITED dated 12/22/2013 FINDINGS: The gallbladder demonstrates no gallstones. No pericholecystic fluid or gallbladder wall t hickening. The common bile duct is normal measuring 4 mm. The liver demonstrates no findings of intrahepatic biliary dilatation. IMPRESSION: Unremarkable examination.
[2021-06-28] MEDS ORDERED: ONDANSETRON 4 MG (ODT) TAB ONE (18:25)
--- NOTE | 2021-06-28 18:38 | ER ---
Nurse's Notes [facility] Name: Yohana Reeves Age: 40 yrs Sex: Female : 1980 Arrival Date: 06/28/2021 Time: 11:55 Bed 14 Private MD: Diagnosis: UTI/ Urinary tract infection, site not specified;Bradycardia, unspecified Presentation: 06/28 12:10 Chief complaint: Patient states: Oliguria, urinary frequency, L back pain for 3 days. ll1 Feels feverish, but no temp taken. BP and pulse have been lower than her normal for 2 days. Coronavirus screen: Vaccine status: Patient reports receiving the 2nd dose of the covid vaccine. Client denies travel out of the [place] in the last 14 days. At this time, the client does not indicate any symptoms associated with coronavirus-19. Ebola Screen: Patient denies travel to an Ebola-affected area in the 21 days before illness onset. Initial Sepsis Screen: Does the patient meet any 2 criteria? No. Patient's initial sepsis screen is negative. Does the patient have a suspected source of infection? Yes: Dysuria/Frequency/Urgency/UTI. Risk Assessment: Do you want to hurt yourself or someone else? Patient reports no desire to harm self or others. Onset of symptoms was June 26, 2021. 12:10 Method Of Arrival: Ambulatory ll1 12:10 Acuity: NICOLASA 3 ll1 Triage Assessment: 12:13 General: Appears in no apparent distress. Behavior is calm, cooperative, appropriate ll1 for age. Pain: Complains of pain in L back. Neuro: No deficits noted. Cardiovascular: Reports low BP and HR. : Reports urgency, urinary frequency. 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 - Social history:: Smoking status: Patient/guardian denies using tobacco, the patient reports quitting approximately 1 years ago. Screenin:28 Abuse screen: Denies threats or abuse. Nutritional screening: No deficits noted. ss7 Tuberculosis screening: No symptoms or risk factors identified. Fall Risk None identified. Assessment: 15:28 General: Appears in no apparent distress. comfortable, Behavior is calm, cooperative, ss7 appropriate for age. Pain: Complains of pain in abdomen and back. Neuro: No deficits noted. Cardiovascular: Heart tones S1 S2 Rhythm is sinus bradycardia. Respiratory: Breath sounds are clear bilaterally. GI: No deficits noted. Abdomen is distended, Bowel sounds present X 4 quads. : Reports inability to void, urinary frequency. EENT: No deficits noted. Derm: No deficits noted. Musculoskeletal: No deficits noted. 16:17 Reassessment: cbc misplaced by lab. Will send another one. SS. 7 17:41 Reassessment: US at bedside. Will start abx after ultrasound is complete. No ss7 improvement of pain post toradol. MARK Campa notified. VO given for fentanyl 25 IVP. Given prior to US beginning. . Vital Signs: 12:10 BP 132 / 74; Pulse 60; Resp 16; Temp 98.1; Pulse Ox 99% ; Weight 83.91 kg; Height 5 ft. ll1 2 in. (157.48 cm); Pain 8/10; 15:28 BP 127 / 73; Pulse 50; Resp 18; Pulse Ox 100% on R/A; ss7 16:30 BP 122 / 68; Pulse 43; Resp 18; Pulse Ox 100% on R/A; ss7 17:17 BP 113 / 67; Pulse 48; Resp 18; Pulse Ox 100% on R/A; ss7 18:30 BP 102 / 62; Pulse 48; Resp 20; Pulse Ox 100% on R/A; ss7 12:10 Body Mass Index 33.84 (83.91 kg, 157.48 cm) ll1 ED Course: 11:55 Patient arrived in ED. ja2 12:12 Triage completed. ll1 12:13 Arm band placed on. 1 15:07 Urine Dipstick-Ancillary Sent. 5 15:07 Urine collected: clean catch specimen, clear. 5 15:16 Benita Aranda RN is Primary Nurse. 7 15:16 Urine --Ancillary (enter results) Sent. 7 15:19 Scott Campa PA is PHCP. cp 15:19 Mayra Panchal MD is Attending Physician. cp 15:28 Patient has correct armband on for positive identification. Placed in gown. Bed in low ss7 position. Call light in reach. Side rails up X2. 15:28 No provider procedures requiring assistance completed. ss7 15:48 CBC with Automated Diff Sent. ss7 15:48 CBC with Diff Sent. ss7 15:48 CMP Sent. ss7 15:48 Lipase Sent. ss7 17:10 CT Stone Protocol In Process Unspecified. EDMS 17:43 Urine Culture Sent. ss7 17:52 US Abdomen Limited: RUQ In Process Unspecified. EDMS 18:40 EKG done, by ED staff, reviewed by Scott FLORES. dh3 18:54 IV discontinued, intact. ss7 Administered Medications: 15:45 Drug: NS 0.9% 1000 ml Route: IV; Rate: 1 bolus; Site: right antecubital; ss7 15:45 Drug: Zofran (Ondansetron) 4 mg Route: IVP; Site: right antecubital; ss7 16:32 Drug: Ketorolac 15 mg Route: IVP; Site: right antecubital; ss7 17:43 Follow up: Response: Pain is increased ss7 17:40 Drug: fentaNYL (PF) 25 mcg Route: IVP; Site: right antecubital; ss7 17:55 Drug: Rocephin - (cefTRIAXone) 1 grams Route: IVPB; Infused Over: 30 mins; Site: right ss7 antecubital; Outcome: 18:37 Discharge ordered by MD. cp 18:54 Discharged to home ambulatory, with family. ss7 18:54 Condition: good 18:54 Discharge instructions given to patient, Instructed on discharge instructions, follow up and referral plans. Demonstrated understanding of instructions, follow-up care. 19:03 Patient left the ED. ss7 Addendum: 07/01/2021 17:08 Addendum: Culture Results: Positive urine culture. No further action required. Bacteria s s sensitive to prescribed antibiotic. Phone call Attempt #1 MARK Walters recommended to stop Bactrim and call Amoxicillin 875 mg 1 tab PO BID x10 days #20. Called in to pharmacy of choice, [facility] pharmacy in [place]. Signatures: Dispatcher [employer] EDMS Smirch, Rochelle, RN RN ss Scott Campa PA PA cp Martinez, Maria [facility] Gill Ayala [facility] Francisca Miller RN RN 1 Ashlyn Asencio Shana, RN RN ss7 Corrections: (The following items were deleted from the chart) 06/28 15:51 15:31 Home Meds: Lisinopril Oral; 7 7 15:51 15:31 Home Meds: bisoprolol-hydrochlorothiazide oral; ss7 7
--- NOTE | 2021-06-28 18:38 | EDPHYS ---
Physician Documentation [facility] Name: Yohana Reeves Age: 40 yrs Sex: Female : 1980 Arrival Date: 06/28/2021 Time: 11:55 Bed 14 Private MD: ED Physician Mayra Panchal HPI: 06/28 15:20 This 40 yrs old Female presents to ER via Ambulatory with complaints of Urinary cp Problem, LOW BLOOD PRESSURE. 15:20 The patient presents with urinary symptoms, frequency. cp 15:20 Onset: The symptoms/episode began/occurred 3 day(s) ago. cp 15:20 Associated signs and symptoms: Pertinent positives: fever, low back pain, Pertinent cp negatives: constipation, diarrhea, vomiting. Severity of symptoms: in the emergency department the symptoms are unchanged, despite home interventions. Patient reports concern for low blood pressure and low heart rate today. 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 - Social history:: Smoking status: Patient/guardian denies using tobacco, the patient reports quitting approximately 1 years ago. ROS: 15:30 Constitutional: Negative for fever, poor PO intake. cp 15:30 Eyes: Negative for injury, pain, redness, and discharge. cp 15:30 ENT: Negative for drainage from ear(s), ear pain, sore throat, difficulty swallowing, difficulty handling secretions. 15:30 Cardiovascular: Negative for chest pain, edema, palpitations. 15:30 Respiratory: Negative for cough, shortness of breath, wheezing. 15:30 Abdomen/GI: Negative for abdominal pain, vomiting, diarrhea, constipation. 15:30 Back: Positive for low back pain. 15:30 : Positive for urinary symptoms. 15:30 Neuro: Negative for altered mental status, dizziness, headache, numbness, syncope, weakness. 15:30 All other systems are negative. Exam: 15:33 Constitutional: The patient appears in no acute distress, alert, awake, cp non-diaphoretic, non-toxic, well developed, well nourished. 15:33 Head/Face: Normocephalic, atraumatic. cp 15:33 Eyes: Periorbital structures: appear normal, Conjunctiva: normal, no exudate, no injection, Sclera: no appreciated abnormality, Lids and lashes: appear normal, bilaterally. 15:33 ENT: External ear(s): are unremarkable, Nose: is normal, Mouth: Lips: moist, Oral mucosa: normal, Posterior pharynx: Airway: no evidence of obstruction, patent, Tonsils: are normal in appearance, erythema, is not appreciated, exudate, is not appreciated. 15:33 Neck: ROM/movement: is normal, is supple, without pain, no range of motions limitations, no meningismus. 15:33 Chest/axilla: Inspection: normal. 15:33 Cardiovascular: Rate: bradycardic, Rhythm: regular, Edema: is not appreciated, JVD: is not appreciated. 15:33 Respiratory: the patient does not display signs of respiratory distress, Respirations: normal, no use of accessory muscles, no retractions, labored breathing, is not present, Breath sounds: are clear throughout, no decreased breath sounds, no stridor, no wheezing. 15:33 Abdomen/GI: Inspection: abdomen appears normal, Bowel sounds: active, all quadrants, Palpation: abdomen is soft and non-tender, in all quadrants. 15:33 Back: pain, that is moderate, of the low back area and mid back area, ROM is painful, with all movement. 15:33 Neuro: Orientation: to person, place \T\ time. Mentation: is normal, Motor: moves all fours, strength is normal, Sensation: is normal. 18:32 ECG was reviewed by the Attending Physician. cp Vital Signs: 12:10 BP 132 / 74; Pulse 60; Resp 16; Temp 98.1; Pulse Ox 99% ; Weight 83.91 kg; Height 5 ft. ll1 2 in. (157.48 cm); Pain 8/10; 15:28 BP 127 / 73; Pulse 50; Resp 18; Pulse Ox 100% on R/A; ss7 16:30 BP 122 / 68; Pulse 43; Resp 18; Pulse Ox 100% on R/A; ss7 17:17 BP 113 / 67; Pulse 48; Resp 18; Pulse Ox 100% on R/A; ss7 18:30 BP 102 / 62; Pulse 48; Resp 20; Pulse Ox 100% on R/A; ss7 12:10 Body Mass Index 33.84 (83.91 kg, 157.48 cm) ll1 MDM: 15:26 Patient medically screened. cp 16:00 Differential diagnosis: appendicitis, kidney stone, urinary tract infection, sepsis, cp cardiac arrythmia. 18:35 Physician consultation: Jaciel Mathis MD was contacted at 18:35, regarding consult, cp patient's condition, wants patient to stop beta elgin meds and monitor HR and can f/u with him or primary ground support equipment fitter in clinic. 18:36 Data reviewed: vital signs, nurses notes, lab test result(s), EKG, radiologic studies, cp CT scan, I have discussed the patient's presentation/case with the attending Emergency Department Physician;. 18:36 Test interpretation: by ED physician or midlevel provider: ECG. Counseling: I had a cp detailed discussion with the patient and/or guardian regarding: the historical points, exam findings, and any diagnostic results supporting the discharge/admit diagnosis, lab results, radiology results, the need for outpatient follow up, a ground support equipment fitter, a family practitioner, stop beta elign meds and f/u with ground support equipment fitter. 06/28 15:06 Order name: Urine Dipstick-Ancillary; Complete Time: 15:30 EDMS 06/28 15:30 Interpretation: Normal except: UBLD Trace-intact; UESTR Trace. cp 06/28 15:11 Order name: Urine --Ancillary (enter results); Complete Time: 16:21 eb 06/28 15:30 Order name: Urine Microscopic Only; Complete Time: 16:57 cp 06/28 16:58 Interpretation: Normal except: UBACT >50; SQEPI 10-20. cp 06/28 15:32 Order name: CBC with Diff cp 06/28 15:32 Order name: CMP cp 06/28 15:32 Order name: Lipase cp 06/28 15:32 Order name: CT Stone Protocol; Complete Time: 17:26 cp 06/28 15:32 Order name: CBC with Automated Diff; Complete Time: 16:57 EDMS 06/28 16:58 Interpretation: Normal except: WBC 11.60; RDW 15.4. cp 06/28 15:32 Order name: Comprehensive Metabolic Panel; Complete Time: 16:57 EDMS 06/28 18:08 Interpretation: Normal except: AST 14; GLOB 4.1; A/G 1.0. cp 06/28 15:32 Order name: Lipase; Complete Time: 16:57 EDMS 06/28 16:51 Order name: Urine Culture EDUT 06/28 17:27 Order name: US Abdomen Limited: RUQ; Complete Time: 18:06 cp 06/28 18:07 Interpretation: Report reviewed. cp 06/28 15:32 Order name: IV Saline Lock; Complete Time: 15:48 cp 06/28 15:32 Order name: Labs collected and sent; Complete Time: 15:48 cp 06/28 18:07 Order name: EKG; Complete Time: 18:08 cp 06/28 18:07 Order name: EKG - Nurse/Tech; Complete Time: 18:51 cp EC:32 Rate is 48 beats/min. Rhythm is regular. MI interval is normal. QRS interval is normal. cp QT interval is prolonged at 538 msec. T waves are Inverted in lead aVR. Interpreted by me. Reviewed by me. Administered Medications: 15:45 Drug: NS 0.9% 1000 ml Route: IV; Rate: 1 bolus; Site: right antecubital; ss7 15:45 Drug: Zofran (Ondansetron) 4 mg Route: IVP; Site: right antecubital; ss7 16:32 Drug: Ketorolac 15 mg Route: IVP; Site: right antecubital; ss7 17:43 Follow up: Response: Pain is increased ss7 17:40 Drug: fentaNYL (PF) 25 mcg Route: IVP; Site: right antecubital; ss7 17:55 Drug: Rocephin - (cefTRIAXone) 1 grams Route: IVPB; Infused Over: 30 mins; Site: right ss7 antecubital; Disposition Summary: 06/28/21 18:37 Discharge Ordered Location: Home cp Problem: new cp Symptoms: have improved cp Condition: Stable cp Diagnosis - UTI/ Urinary tract infection, site not specified cp - Bradycardia, unspecified cp Followup: cp - With: Private Physician - When: 2 - 3 days - Reason: bradycardia Discharge Instructions: - Discharge Summary Sheet cp - Bradycardia, Adult cp - Urinary Tract Infection, Adult cp Forms: - Medication Reconciliation Form cp - Thank You Letter cp - Antibiotic Education cp - Prescription Opioid Use cp Prescriptions: - Bactrim DS 800-160 mg Oral Tablet - take 1 tablet by ORAL route every 12 hours for 7 days; 14 tablet; Refills: 0, cp Product Selection Permitted - Zofran 4 mg Oral Tablet - take 1 tablet by ORAL route every 12 hours As needed; 20 tablet; Refills: 0, cp Product Selection Permitted - Diclofenac Sodium 75 mg Oral tablet,delayed release (DR/EC) - take 1 tablet by ORAL route 2 times per day; 20 tablet; Refills: 0, Product cp Selection Permitted Signatures: Dispatcher [employer] EDMS Scott Campa PA PA cp Francisca Miller RN RN ll1 Benita Aranda RN RN ss7 Corrections: (The following items were deleted from the chart) 15:51 15:31 Home Meds: Lisinopril Oral; ss7 ss7 15:51 15:31 Home Meds: bisoprolol-hydrochlorothiazide oral; ss7 ss7 18:08 18:08 Normal except: AST 14. cp cp
[2021-06-28 19:18] VITALS: TEMP 98.1
[2021-06-28 19:19] VITALS: O2SAT 100
[2021-06-28 19:23] VITALS: BP 102/62
--- NOTE | 2021-07-01 08:26 | EKG ---
Test Date: 2021-06-28 Test Time: 18:25:21 Appraiser Timber: NADIYA MEASUREMENT RESULTS: Intervals: Rate: 48 ID: [id number] QRSD: 84 QT: 538 QTc: 480 [place]: P: 63 ID: [id number] QRS: 69 T: 54 INTERPRETIVE STATEMENTS: Sinus bradycardia Prolonged QT Abnormal ECG Compared to ECG 02/18/2021 17:02:21 Prolonged QT interval now present Sinus rhythm no longer present T-wave abnormality no longer present Electronically Signed On 07-01-21 08:21:12 CDT by Jr Ernandez
== END 2021-06-28 19:03 | disposition home or self-care (01) ==
LOC: ER 11:52
DX: N39.0 Urinary tract infection, site not specified (principal); R00.1 Bradycardia, unspecified; M54.50 Low back pain, unspecified; I25.2 Old myocardial infarction; Z87.442 Personal history of urinary calculi
CPT/HCPCS: 93005; 87088; 85025; 87086; 36415; 81025; 87077; 87186; 83690; 80053; 76377; 74176; 76705; 96375; 96374; 99284; J3010; J7030; J2405; 81003; 81015

== ENCOUNTER 2022-03-14 10:11 | Emergency (ER) | payer BC ==
--- OUTSIDE RECORDS SUMMARY | 2022-03-14 10:21 | XMS REPORT | Continuity of Care Document ---
:1980 Author Organization [facility] t Address [address] [place] [place] [address] Care Team Providers Name Role Phone Pcp, Patient Does Not Have A Primary Care Physician [phone] ELISE RICE Attending Clinician Unavailable Jagjit LEARNING SUPPORT AIDE, Elise Arvizu Attending Clinician [phone] Pob, [facility] Main Attending Clinician Unavailable Ariel Britt MD Attending Clinician ARIEL BRITT Attending Clinician Unavailable Doctor Unassigned, [place] Attending Clinician Unavailable Paul Sams MD Attending Clinician PAUL SAMS Attending Clinician Unavailable _[email or web address]_Stan_Edis Attending Clinician Unavailable Alex Pierce Attending Clinician [phone] Megan Aranda Attending Clinician Ann Cardozo DO Attending Clinician Angelo Robles MD Attending Clinician Naun Bush MD Attending Clinician Mark Monterroso Attending Clinician Candido Isabel Attending Clinician CANDIDO RAMIREZ Attending Clinician Unavailable [email or web address] Admitting Clinician Unavailable Naun Bush MD Admitting Clinician CANDIDO RAMIREZ Admitting Clinician Unavailable Payers Payer Name Policy Type Policy Number Effective Date Expiration Date Esdras hayes TML GB CLAIMS [id number] 2017 00:00:00 BCBS PPO POS EPO CHOICE [id number] 2021 00:00:00 TML - [facility] [id number] 2017 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 PLAN 00:00:00 [place] TRUE CHOICE (PPO) Problems Condition Condition Condition Status Onset Resolution Last Treating Co mments Source Name Details Category Date Date Treatment Clinician Date Tachycardi Tachycardi Disease Active 2019-04 U nivers a a 0-28 ity of 00:00: [place] [address] Medical Branch Family Family Disease Active 2019-04 Univers history of history of 0-28 it y of early CAD early CAD 00:00: [facility] Medical Branch Chest pain Chest pain Disease Active 2019-04 U nivers 0-27 ity of 00:00: [place] [address] Medical Branch Obesity Obesity Disease Active 2019-04 Univers (BMI (BMI 0-27 ity of 30-39.9) 30-39.9) 00:00: [place] [facility] RLQ RLQ Disease Active 2019- Univers abdominal abdominal 9-24 ity of pain pain 00:00: [place] [facility] Anxiety Anxiety Disease Active 2019 Univers 9-24 ity of 00:: [place] [facility] Chronic Chronic Disease Active 2019- Univers low back low back 9-24 ity of pain pain 00:00: [place] [facility] Anemia Anemia Problem Active [facility] 8-01 Medical 00:00: 00 Hypertensi Hypertensi Problem Active [facility] ve ve 8- Medical disorder Disorder 00:00: 00 Hyperchole Hyperchole Problem Active [facility] sterolemia sterolemia 8- Me dical 00:00: 00 Allergies, Adverse Reactions, Alerts Allergy Allergy Status Severity Reaction(s) Onset Inactive Treating Comm ents Source Name Type Date Date Clinician bismuttavo DA Active [facility] 7-29 Clear ylate 00:00: [facility] NO KNOWN Drug Active Univers ALLERGIE Class ity of [facility] NO KNOWN Allergy Active [facility] Social History Social Habit Start Date Stop Date Quantity Comments Source History of Cigarette Smoker NOREEN Pierce tobacco use [facility] Tobacco use and 2021-10-15 2021-10-[address] Rachel kes exposure 00:00:00 00:00:00 [facility] Alcohol intake 2021-10-15 2021-10-15 Ex-drinker NOREEN Batresk es 00:00:00 00:00:00 (finding) [facility] Exposure to 2021-06-16 2021-07-16 Not sure University of SARS-CoV-2 00:00:00 09:15:00 [facility] (event) Branch History SDOH 2020-02-08 2020-02-08 99 University o f Alcohol Frequency 00:00:00 00:00:00 [facility] edical Branch History SDOH 2020-02-08 2020-02-08 99 University o f Alcohol Std 00:00:00 00:00:00 [place] [facility] Dr[facility] Branch History SDOH 2020-02-08 2020-02-08 99 University o f Alcohol Binge 00:00:00 00:00:00 [place] [facility] Tobacco Comment 2020-02-07 2020-02-07 rarely Universit y of 00:00:00 00:00:00 [facility] Branch Alcohol Comment 2020-02-07 2020-02-07 occasionally Univers ity of 00:00:00 00:00:00 [facility] Cigarettes smoked 2020-01-24 2020-01-24 Univers ity of current (pack per 00:00:00 00:00:00 [facility]) - Reported Branch Sex Assigned At [birth year] NOREEN Fernandez 00:00:00 00:00:00 [facility] Smoking Status Start Date Stop Date Source Heavy Tobacco Smoker [facility] Former smoker 2021-10-15 00:00:00 2021-10-15 00:00:[address] [facility] Medications Ordered Filled Start Stop Current Ordering Indication Dosage Frequency Signature Comments Components Source Medication Medication Date Date Medication? Clinician (SIG) Name Name benzonatate Yes 100mg Take [address] (TESSALON) 7-05 mg by [facility] 100 MG 14:24: mouth 3 Medical capsule 12 (three) Center times daily as needed for Cough. meloxicam Yes 15mg QD Take [address] (MOBIC) 15 7-05 by mouth [facility] MG tablet 14:24: daily. Medica l 12 Center montelukast Yes 10mg QD Take [address] (SINGULAIR) 7-05 by mouth Luke s 10 mg 14:24: nightly. Medical tablet 12 Center butalbital- 2021- No 1{tbl} Take [address] acetaminoph 10-15 07-10 tablet by Rachel whittington en-caffeine 00:00: 23:59 mouth Medi riky (FIORICET, 00 :00 every 6 Center ESGIC) (six) 50-325-40 hours as mg per needed for tablet Headaches for up to 5 days. morpHINE No 4mg 4 mg, Slow Un carol injection 4 07-23 IV Push, ity of mg 19:15: 18:10 ONCE, 1 [place] 00 :00 dose, Mon Medical 07/23/20 at Branch 1415, STAT ondansetron 2020- No 4mg 4 mg, Slow Univers (ZOFRAN 07-23 IV Push, ity of (PF)) 18:00: 16:55 ONCE, 1 [place] injection 4 00 :00 dose, Mon Med ical mg 07/23/20 at Branch 1300, LORENE ketorolac 2020- No 30mg 30 mg, Unive rs (TORADOL) 07-23 Slow IV ity of injection 18:00: 16:55 Push, [place] 30 mg 00 :00 ONCE, 1 Medical dose, Mon [place] 07/23/20 at 1300, LORENE
Fa culty member approving Restricted medication : MEGAN LYONS iohexol 2020- No [id number] 120mL 120 mL, Univers (OMNIPAQUE 07-23 Intravenou it y of 350 17:15: 17:10 s, ONCE, 1 [place] BULK-150 00 :00 dose, Mon Medica l mL) 07/23/20 at Branch injection 1215, 120 mL Routine ondansetron Yes [id number] 4mg Take 1 Univers (ZOFRAN 4-12 tablet by ity of ODT) 4 mg 00:00: mouth [place] disintegrat 00 every 8 Medic al ing tablet (eight) Branch hours as needed for Nausea and Vomiting (N/V). ondansetron 2020-0 Yes [id number] 4mg Take 1 Univers (ZOFRAN 4-12 tablet by ity of ODT) 4 mg 00:00: mouth [place] disintegrat 00 every 8 Medic al ing tablet (eight) Branch hours as needed for Nausea and Vomiting (N/V). ondansetron 2020-0 Yes [id number] 4mg Take 1 Univers (ZOFRAN 4-12 tablet by ity of ODT) 4 mg 00:00: mouth [place] disintegrat 00 every 8 Medic al ing tablet (eight) Branch hours as needed for Nausea and Vomiting (N/V). ondansetron 2020-0 Yes [id number] 4mg Take 1 Univers (ZOFRAN 4-12 tablet by ity of ODT) 4 mg 00:00: mouth [place] disintegrat 00 every 8 Medic al ing tablet (eight) Branch hours as needed for Nausea and Vomiting (N/V). ondansetron 2020-0 Yes [id number] 4mg Take 1 Univers (ZOFRAN 4-12 tablet by ity of ODT) 4 mg 00:00: mouth [place] disintegrat 00 every 8 Medic al ing tablet (eight) Branch hours as needed for Nausea and Vomiting (N/V). ondansetron 2020-0 Yes [id number] 4mg Take 1 Univers (ZOFRAN 4-12 tablet by ity of ODT) 4 mg 00:00: mouth [place] disintegrat 00 every 8 Medic al ing tablet (eight) Branch hours as needed for Nausea and Vomiting (N/V). ondansetron 2020-0 Yes [id number] 4mg Take 1 Univers (ZOFRAN 4-12 tablet by ity of ODT) 4 mg 00:00: mouth [place] disintegrat 00 every 8 Medic al ing tablet (eight) Branch hours as needed for Nausea and Vomiting (N/V). butorphanol 2020-0 2020- No 1mg 1 mg, IV U nivers (STADOL) 16 -15 Push, ity of injection 1 00:00: 23:22 ONCE, 1 [place] mg 00 :00 dose, Fri Medical 04/27/20 at Branch 1800, Routine proMETHazin 2020- No 25mg 25 mg, IV Univers e 04-27 Piggyback, ity of (PHENERGAN) 22:45: 22:45 ONCE, 1 [place] 25 mg in 00 :00 dose, Fri Medica l NaCl 0.9% 04/27/20 at Bran ch (NS) 50 mL 1645, 50 piggyback [...] Fri Branch 04/27/20 at 1245, STAT metoclopram No 10mg 10 mg, Uni vers adarsh HCl 04-27 Slow IV ity of (REGLAN) 18:45: 17:53 Push, [place] injection 00 :00 ONCE, 1 Medical 10 [...] ANN CARDOZO nebivolol 2019-04 Yes Take by Unive rs HCl 0-28 mouth ity of (BYSTOLIC 19:30: daily. [place] ORAL) 22 Medical Branch zolpidem 2019-04 Yes 10mg Take 10 mg Uni vers (AMBIEN) 10 0-28 by mouth ity of mg tablet 19:30: at [place] [address] bedtime. Medical Branch FLUoxetine 2019-04 Yes 80mg Take 80 mg U nivers (PROZAC) 40 0-28 by mouth ity of mg capsule 19:30: daily. [address] ARIPiprazol 2019-04 Yes 5mg Take 5 mg U nivers e (ABILIFY) 0-28 by mouth ity of 5 mg tablet 19:30: daily. [address] Branch HYDROcodone 2019-04 Yes 1{tbl} Take 1 [...] capsule Branch nebivolol 2019-04 Yes Take by Unive rs HCl 0-28 mouth ity of (BYSTOLIC 19:30: daily. [place] [address] Medical Branch zolpidem 2019-04 Yes 10mg Take 10 mg Uni vers (AMBIEN) 10 0-28 by mouth ity of mg tablet 19:30: at [place] [address] bedtime. Medical Branch FLUoxetine 2019-04 Yes 80mg Take 80 mg U nivers (PROZAC) 40 0-28 by mouth ity of mg capsule 19:30: daily. [address] ARIPiprazol 2019-04 Yes 5mg Take 5 mg U nivers e (ABILIFY) 0-28 by mouth ity of 5 mg tablet 19:30: daily. [address] HYDROcodone 2019-04 Yes 1{tbl} Take 1 Un [...] capsule Branch nebivolol 2019-04 Yes Take by Unive rs HCl 0-28 mouth ity of (BYSTOLIC 19:30: daily. [place] ORAL) 22 Medical Branch zolpidem 2019-04 Yes 10mg Take 10 mg Uni vers (AMBIEN) 10 0-28 by mouth ity of mg tablet 19:30: at [place] [address] bedtime. Medical Branch FLUoxetine 2019-04 Yes 80mg Take 80 mg U nivers (PROZAC) 40 0-28 by mouth ity of mg capsule 19:30: daily. [place] [address] Medical Branch ARIPiprazol 2019-04 Yes 5mg Take 5 mg U nivers e (ABILIFY) 0-28 by mouth ity of 5 mg tablet 19:30: daily. [facility] 22 Medical Branch HYDROcodone 2019-04 Yes 1{tbl} [...] capsule Branch nebivolol 2019-04 Yes Take by Unive rs HCl 0-28 mouth ity of (BYSTOLIC 14:30: [facility]. [facility] Medical Branch zolpidem 2019-04 Yes 10mg Take 10 mg Uni vers (AMBIEN) 10 0-28 by mouth ity of mg tablet 14:30: at [place] [address] bedtime. Medical Branch FLUoxetine 2019-04 Yes 80mg Take 80 mg U nivers (PROZAC) 40 0-28 by mouth ity of mg capsule 14:30: daily. [place] [address] Medical Branch ARIPiprazol 2019-04 Yes 5mg Take 5 mg U nivers e (ABILIFY) 0-28 by mouth ity of 5 mg tablet 14:30: daily. [place] [address] Medical Branch HYDROcodone 2019-04 Yes 1{tbl} Take [...] capsule Branch nebivolol 2019-04 Yes Take by Unive rs HCl 0-28 mouth ity of (BYSTOLIC 14:30: daily. [place] ORAL) Medical Branch zolpidem 2019-04 Yes 10mg Take 10 mg Uni vers (AMBIEN) 10 0-28 by mouth ity of mg tablet 14:30: at [place] [address] bedtime. Medical Branch FLUoxetine 2019-04 Yes 80mg Take 80 mg U nivers (PROZAC) 40 0-28 by mouth ity of mg capsule 14:30: daily. [place] [address] Medical Branch ARIPiprazol 2019-04 Yes 5mg Take 5 mg U nivers e (ABILIFY) 0-28 by mouth ity of 5 mg tablet 14:30: daily. [address] Branch HYDROcodone 2019-04 Yes 1{tbl} Take 1 [...] capsule Branch nebivolol 2019-04 Yes Take by Unive rs HCl 0-28 mouth ity of (BYSTOLIC 14:30: daily. [place] ORAL) Medical Branch zolpidem 2019-04 Yes 10mg Take 10 mg Uni vers (AMBIEN) 10 0-28 by mouth ity of mg tablet 14:30: at [place] [address] bedtime. Medical Branch FLUoxetine 2019-04 Yes 80mg Take 80 mg U nivers (PROZAC) 40 0-28 by mouth ity of mg capsule 14:30: daily. [place] [address] Medical Branch ARIPiprazol 2019-04 Yes 5mg Take 5 mg U nivers e (ABILIFY) 0-28 by mouth ity of 5 mg tablet 14:30: daily. [facility] 22 [facility] HYDROcodone 2019-04 Yes 1{tbl} Take 1 [...] capsule Branch nebivolol 2019-04 Yes Take by Unive rs HCl 0-28 mouth ity of (BYSTOLIC 14:30: daily. [place] ORAL) Medical Branch zolpidem 2019-04 Yes 10mg Take 10 mg Uni vers (AMBIEN) 10 0-28 by mouth ity of mg tablet 14:30: at [place] [address] bedtime. Medical Branch FLUoxetine 2019-04 Yes 80mg Take 80 mg U nivers (PROZAC) 40 0-28 by mouth ity of mg capsule 14:30: daily. [place] [address] Medical Branch ARIPiprazol 2019-04 Yes 5mg Take 5 mg U nivers e (ABILIFY) 0-28 by mouth ity of 5 mg tablet 14:30: daily. [facility] s 22 Medical Branch HYDROcodone 2019-04 Yes [...] capsule Branch nebivolol 2019-04 Yes Take by Unive rs HCl 0-28 mouth ity of (BYSTOLIC 14:30: daily. [place] ORAL) Medical Branch zolpidem 2019-04 Yes 10mg Take 10 mg Uni vers (AMBIEN) 10 0-28 by mouth ity of mg tablet 14:30: at [place] [address] bedtime. Medical Branch FLUoxetine 2019-04 Yes 80mg Take 80 mg U nivers (PROZAC) 40 0-28 by mouth ity of mg capsule 14:30: daily. [place] [address] Medical Branch ARIPiprazol 2019-04 Yes 5mg Take 5 mg U nivers e (ABILIFY) 0-28 by mouth ity of 5 mg tablet 14:30: daily. [facility] 22 Medical Branch HYDROcodone 2019-04 Yes 1{tbl} [...] capsule Branch nebivolol 2019-04 Yes Take by Unive rs HCl 0-28 mouth ity of (BYSTOLIC 14:30: daily. [place] ORAL) 22 Medical Branch zolpidem 2019-04 Yes 10mg Take 10 mg Uni vers (AMBIEN) 10 0-28 by mouth ity of mg tablet 14:30: at [place] [address] bedtime. Medical Branch FLUoxetine 2019-04 Yes 80mg Take 80 mg U nivers (PROZAC) 40 0-28 by mouth ity of mg capsule 14:30: daily. [place] [address] Medical Branch ARIPiprazol 2019-04 Yes 5mg Take 5 mg U nivers e (ABILIFY) 0-28 by mouth ity of 5 mg tablet 14:30: daily. [facility] Medical Branch HYDROcodone 2019-04 Yes 1{tbl} Take [...] First dose Medi riky 40 mg on Thu Branch 02/08/20 at 0900, Until Discontinu ed, Routine aspirin 2019-04 Yes 81mg 81 mg, Univers chewable 0-28 Oral, ity of tablet 81 14:00: DAILY, [place] mg 00 First dose Medical on Thu Branch 02/08/20 at 0900, Until Discontinu ed, Routine enoxaparin 2019-04 Yes 40mg 40 mg, Unive rs (LOVENOX) 028 Subcutaneo ity of injection 14:00: [place], DAILY, [place] 40 mg 00 First dose Medical on Thu Branch 02/08/20 at 0900, Until Discontinu ed, Routine venlafaxine 2019-04 Yes 150mg 150 mg, Un carol XR (EFFEXOR 0-28 Oral, QAM ity of XR) 24 hr 13:00: WITH [place] capsule 150 00 BREAKFAST, Me dical mg First dose Branch on Thu02/08/20 at 0800, Until Discontinu ed, Routine zolpidem 2019-04 Yes 10mg 10 mg, Univers (AMBIEN) 0 Oral, QHS, ity o f tablet 10 02:00: First dose [place] mg 00 on [facility] 02/07/20 Branch at 2100, Until Discontinu ed, Routine NaCl 0.9% 2019-04 2020- No IV Univers (NS) IV 002-07 Infusion, ity of infusion 02:00: 09:59 at 125 [place] 00 :00 mL/hr, Medical CONTINUOUS Branch , Starting Thu02/07/20 at 2100, Until Thu02/08/20 at 0459, Routine HYDROcodone 2019-04 Yes 1{tbl} 1 tablet, Univers -acetaminop 0-28 Oral, BID, it y of hen (NORCO 01:00: First dose [place] 5) 5-325 mg 00 on [facility] Medic l tablet 1 02/07/20 Branch tablet at 2000, Until Discontinu ed, Routine nitroglycer 2019-04 Yes .4mg 0.4 mg, Uni vers in 0- Sublingual ity of (NITROSTAT) 00:22: , Q5MIN [place] as sublingual 18 PRN, Medical tablet 0.4 Starting Branc h mg Thu02/07/20 at 1922, Until Discontinu ed, Routine, Chest pain morpHINE 2020-1 2020- No 2mg 2 mg, Slow Un carol injection 2 02-08 IV Push, ity of mg 00:21: 00:20 Q4[facility], [place] 44 :44 Starting Medical [facility] 02/07/20 at 192, Until 02/08/20 at 192, Routine, Pain (scale 7-10), Chest pain acetaminoph 2019-04 2020- No 1{tbl} 1 tablet, Univers en-codeine 02-09 Oral, ity of (TYLENOL 00:21: 00:20 Q6RN, [place] #3) 300-30 33 :33 Starting Medic al mg tablet 1 [facility] tablet 02/07/20 at 192, Until [place] 02/09/20 at 192, Routine, Pain (scale 4-6) acetaminoph 2019-04 Yes 650mg 650 mg, Un carol en Oral, ity of (TYLENOL) 00:21: Q6[place], [place] tablet 650 31 Starting Medic al mg [facility] 02/07/20 at 192, Until Discontinu ed, Routine, Pain (scale 1-3) FENTanyl PF 2019-04- No 100ug 100 mcg, Univers (SUBLIMAZE 02-06 Slow IV ity o f (PF)) 23:30: 22:26 Push, [place] injection 00 :00 ONCE, 1 Medical 100 mcg dose, [facility] 02/07/20 at 1830, STAT nitroglycer 2019-04- No .4mg 0.4 mg, Un carol in 02-06 Sublingual ity of (NITROSTAT) 22:30: 21:30 , ONCE, 1 [place] sublingual 00 :00 dose, [facility] Medi riky tablet 0.4 02/07/20 Branc h mg at 1730, LORENE acetaminoph 2019-04- No 975mg 975 mg, U nivers en 02-06 Oral, ity of (TYLENOL) 22:30: 21:30 ONCE, 1 [place] tablet 975 00 :00 dose, Tue Medi riky mg 02/07/20 Branch at 1730, LORENE iohexol 2019-04 2020- No 120mL 120 mL, Unive rs (OMNIPAQUE 0-27 10-27 Intravenou it y of 350 21:30: 21:30 s, ONCE, 1 [place] BULK-150 00 :00 dose, Tue Medica l mL) 02/07/20 Branch injection at 1630, 120 mL Routine ondansetron 2019-04 2020- No 4mg 4 mg, Slow Univers (ZOFRAN 0-27 10-27 IV Push, ity of (PF)) 21:30: 20:30 ONCE, 1 [place] injection 4 00 :00 dose, Tue Med ical mg 02/07/20 Branch at 1630, LORENE morpHINE 2019-04 2020- No 4mg 4 mg, Slow Un carol injection 4 0-27 10-27 IV Push, ity of mg 21:30: 20:30 ONCE, 1 [place] 00 :00 dose, [facility] Medical 02/07/20 Branch at 1630, STAT morpHINE 2019-04 2020- No 4mg 4 mg, Slow Un carol injection 4 0-14 10-14 IV Push, ity of mg 02:15: 01:13 ONCE, 1 [place] 00 :00 dose, [facility] Medical 01/24/20 Branch at 2115, STAT ondansetron 2019-04 2020- No 4mg 4 mg, Slow Univers (ZOFRAN 0-14 10-14 IV Push, ity of (PF)) 02:15: 01:13 ONCE, 1 [place] injection 4 00 :00 dose, Tue Med ical mg 01/24/20 Branch at 2115, [...] ity of (PF)) 01:00: 23:47 ONCE, 1 [place] injection 4 00 :00 dose, Tue Med ical mg 01/24/20 Branch at 2000, LORENE morpHINE 2020-1 2020- No 4mg 4 mg, Slow Un carol injection 4 0-14 10-13 IV Push, ity of mg 01:00: 23:47 ONCE, 1 [place] 00 :00 dose, Tue Medical 01/24/20 Branch at 2000, STAT iohexol 2019-04 2020- No 120mL 120 mL, Unive rs (OMNIPAQUE 0-13 10-13 Intravenou it y of 350 23:45: 23:45 s, ONCE, 1 [place] BULK-150 00 :00 dose, Tue Medica l mL) 01/24/20 Branch injection at 1845, 120 mL Routine zolpidem 2019- Yes 10mg Take 10 mg Uni vers (AMBIEN) 10 0-13 by mouth ity of mg tablet 22:12: at [place] [address] bedtime. Medical Branch FLUoxetine 2019-04 Yes 80mg Take 80 mg U nivers (PROZAC) 40 0-13 by mouth ity of mg capsule 22:12: daily. Medical Branch ARIPiprazol 2019- Yes 5mg Take 5 mg U nivers e (ABILIFY) 0-13 by mouth ity of 5 mg tablet 22:12: [place]. [place] 07 [place] hydrOXYzine 2019-04 2020- No 25mg Take 25 mg Univers 25 mg 0-13 10-13 by mouth ity of tablet 22:11: 00:00 at [place]time [place] 29 :00 as needed Medical for Branch Itching or Anxiety. HYDROcodone 2019-04 2020- No 1{tbl} Take 1 U nivers -acetaminop 0-13 10-13 tablet by it y of hen 7.5-325 22:11: 00:00 mouth 2 [place] mg per 07 :00 (two) Medical tablet times Branch daily. traMADoL 50 2019- Yes [id number] 50mg Take 1 Univ ers mg tablet 0-13 tablet by ity o f 00:00: mouth [place] 00 every 6 Medical (six) Branch hours as needed for Pain (scale 4-6). Indication s: acute pain ondansetron 2019- Yes [id number] 8mg Take 2 Univers 4 mg tablet 0-13 tablets by it y of 00:00: mouth [place] 00 every 8 Medical (eight) Branch hours as needed for Nausea and Vomiting (N/V). ondansetron 2019- Yes [id number] 8mg Take 2 Univers 4 mg tablet 0-13 tablets by it y of 00:00: mouth [place] 00 every 8 Medical (eight) Branch hours as needed for Nausea and Vomiting (N/V). ondansetron 2020-1 Yes [id number] 8mg Take 2 Univers 4 mg tablet 0-13 tablets by it y of 00:00: mouth [place] 00 every 8 Medical (eight) Branch hours as needed for Nausea and Vomiting (N/V). ondansetron 2020-1 Yes [id number] 8mg Take 2 Univers 4 mg tablet 0-13 tablets by it y of 00:00: mouth [place] 00 every 8 Medical (eight) Branch hours as needed for Nausea and Vomiting (N/V). ondansetron 2020-1 Yes [id number] 8mg Take 2 Univers 4 mg tablet 0-13 tablets by it y of 00:00: mouth [place] 00 every 8 Medical (eight) Branch hours as needed for Nausea and Vomiting (N/V). ondansetron 2020-1 Yes [id number] 8mg Take 2 Univers 4 mg tablet 0-13 tablets by it y of 00:00: mouth [place] 00 every 8 Medical (eight) Branch hours as needed for Nausea and Vomiting (N/V). ondansetron 2020-1 Yes [id number] 8mg Take 2 Univers 4 mg tablet 0-13 tablets by it y of 00:00: mouth [place] 00 every 8 Medical (eight) Branch hours as needed for Nausea and Vomiting (N/V). ondansetron 2020-1 Yes [id number] 8mg Take 2 Univers 4 mg tablet 0-13 tablets by it y of 00:00: mouth [place] 00 every 8 Medical (eight) Branch hours as needed for Nausea and Vomiting (N/V). ondansetron 2020-1 Yes [id number] 8mg Take 2 Univers 4 mg tablet 0-13 tablets by it y of 00:00: mouth [place] 00 every 8 Medical (eight) Branch hours as needed for Nausea and Vomiting (N/V). ciprofloxac 2020-1 Yes [id number] 500mg Take 1 Univers in HCl 500 0-13 tablet by ity of mg tablet 00:00: mouth 2 [place] 00 (two) Medical times Branch daily. traMADoL 50 2020-1 Yes [id number] 50mg Take 1 Univ ers mg tablet 0-13 tablet by ity o f 00:00: mouth [place] 00 every 6 Medical (six) Branch hours as needed for Pain (scale 4-6). Indication s: acute pain ondansetron 2019- Yes [id number] 8mg Take 2 Univers 4 mg tablet [...] Indication s: acute pain ciprofloxac 2019-04- No [id number] 500mg Take 1 Univers in HCl 500 0-13 10-28 tablet by ity of mg tablet 00:00: 00:00 mouth 2 [place] 00 :00 (two) Medical times Branch daily. dicyclomine 2019-2019- No 20mg 20 mg, Uni vers (BENTYL) 06-02- Intramuscu ity of injection 20:45: 20:08 lar, ONCE, [place] 20 mg 00 :00 1 dose, Medical [place] Branch 06/02/19 at 1445, Routine ondansetron 2019- No 4mg 4 mg, Slow Univers (ZOFRAN 06-02- IV Push, ity of (PF)) 19:00: 17:54 ONCE, 1 [place] injection 4 00 :00 dose, [place] Med ical mg 06/02/19 at Branch 1300, LORENE morpHINE 2019-2019- No 4mg 4 mg, Slow Un carol injection 4 06-02-20 IV Push, ity of mg 19:00: 17:54 ONCE, 1 [place] 00 :00 dose, [place] Medical 06/02/19 at Branch 1300, STAT iohexol 2019-2019- No 120mL 120 mL, Unive rs (OMNIPAQUE 06-02- Intravenou it y of 350 18:37: 18:35 s, ONCE, 1 [place] BULK-150 00 :00 dose, [place] Medica l mL) 06/02/19 at Branch injection 1300, 120 mL Routine NaCl 0.9% 2019-2019- No 1000mL at 999 Uni vers (NS) bolus 2-20 02-20 mL/hr, ity of infusion 17:30: 19:11 1,000 mL, [place] 1,000 mL 00 :00 IV Medical Infusion, Branch ONCE, 1 dose, [place] 06/02/19 at 1130, LORENE dicyclomine Yes [id number] 10mg Take 1 Univers (BENTYL) 10 2-20 capsule by it y of mg capsule 00:00: mouth 4 [place] (four) Medical times Branch daily as needed for Abdominal pain. dicyclomine Yes [id number] 10mg Take 1 Univers (BENTYL) 10 2-20 capsule by it y of mg capsule 00:00: mouth 4 [place] 00 (four) Medical times Branch daily as needed for Abdominal pain. dicyclomine 2019- No [id number] 10mg Take 1 Univers (BENTYL) 10 2-20 10-13 capsule by i ty of mg capsule 00:00: 00:00 mouth 4 [place] 00 :00 (four) Medical times Branch daily as needed for Abdominal pain. traMADol Yes [id number] 50mg Take 1 Univers (ULTRAM) 50 9-28 [id number] tablet by i ty of mg tablet 00:00: mouth [place] 00 every 8 Medical (eight) Branch hours as needed for Pain (scale 4-6). traMADol Yes [id number] 50mg Take 1 Univers (ULTRAM) 50 9-28 [id number] tablet by i ty of mg tablet 00:00: mouth [place] 00 every 8 Medical (eight) Branch hours as needed for Pain (scale 4-6). traMADol 2020- No [id number] 50mg Take 1 Univers (ULTRAM) 50 9-28 10-13 [id number] tablet by ity of mg tablet 00:00: 00:00 mouth [place] 00 :00 every 8 Medical (eight) Branch hours as needed for Pain (scale 4-6). nebivolol Yes Take by Unive rs HCl - mouth ity of (BYSTOLIC 20:20: daily. [place] ORAL) 01 Medical Branch zolpidem 2018- Yes 10mg Take 10 mg Uni vers (AMBIEN) 10 - by mouth ity of mg tablet 20:20: at [place] 01 bedtime. Medical Branch HYDROcodone 2018-0 Yes 1{tbl} Take 1 Un carol -acetaminop [...] ity of 5 mg tablet 20:20[place] hydrOXYzine Yes 25mg Take 25 mg Univers 25 mg 9-26 by mouth ity of tablet 20:20: at bedtime as needed Medical for Branch Itching or Anxiety. nebivolol Yes Take by Unive rs HCl 9-26 mouth ity of (BYSTOLIC 20:20: daily. [place] [facility]) [facility] zolpidem Yes 10mg Take 10 mg Uni vers (AMBIEN) 10 9-26 by mouth ity of mg tablet 20:20: at [place] [id number] bedtime. Medical Branch HYDROcodone Yes 1{tbl} Take [...] ity of 5 mg tablet 20:20: [facility] hydrOXYzine Yes 25mg Take 25 mg Univers 25 mg 9-26 by mouth ity of tablet 20:20: at bedtime as needed Medical for Branch Itching or Anxiety. nebivolol Yes Take by Unive rs HCl 9-26 mouth ity of (BYSTOLIC 20:20: daily. [place] [facility] [facility] Branch Abilify Abilify No Abilify [facility] alprazolam alprazolam No alprazolam [facility] 0.5 mg 0.5 mg 0.5 mg Medical tablet TAKE tablet TAKE tablet 1 TABLET BY 1 TABLET BY TAKE 1 MOUTH DAILY MOUTH DAILY TABLET BY NEEDED NEEDED MOUTH ANXIETY MAY ANXIETY MAY DAILY MAKE DROWSY MAKE DROWSY NEEDED ANXIETY MAY MAKE DROWSY aripiprazol aripiprazol No aripiprazo [facility] e 2 mg e 2 mg le 2 mg Medical tablet TAKE tablet TAKE tablet 1 TABLET BY 1 TABLET BY TAKE 1 MOUTH ONCE MOUTH ONCE TABLET BY DAILY DAILY MOUTH ONCE DAILY aripiprazol aripiprazol No aripiprazo [facility] e 5 mg e 5 mg le 5 mg Medical tablet TAKE tablet TAKE tablet 1 & 1/2 1 & 1/2 TAKE 1 & TABLETS BY TABLETS BY 1/2 MOUTH MOUTH TABLETS BY NIGHTLY NIGHTLY MOUTH NIGHTLY azithromyci azithromyci No azithromyc [facility] n 250 mg n 250 mg in 250 mg Me dical tablet TAKE tablet TAKE tablet 2 TABLETS 2 TABLETS TAKE 2 NOW; THEN 1 NOW; THEN 1 TABLETS TABLET TABLET NOW; THEN DAILY UNTIL DAILY UNTIL 1 TABLET ALL TAKEN. ALL TAKEN. DAILY UNTIL ALL TAKEN. benztropine benztropine No benztropin [facility] 0.5 mg 0.5 mg e 0.5 mg Medical tablet TAKE tablet TAKE tablet 1 TABLET BY 1 TABLET BY TAKE 1 MOUTH AT MOUTH AT TABLET BY BEDTIME BEDTIME MOUTH AT BEDTIME bromphenira bromphenira No bromphenir [facility] mine-pseudo mine-pseudo amine-pseu Medical ephedrine-D ephedrine-D doephedrin M 2 mg-30 M 2 mg-30 e-DM 2 mg-10 mg/5 mg-10 mg/5 mg-30 mL oral mL oral mg-10 mg/5 syrup TAKE syrup TAKE mL oral 1 1 syrup TAKE TEASPOONFUL TEASPOONFUL 1 O EVERY 6 O EVERY 6 TEASPOONFU HOURS HOURS L O EVERY NEEDED FOR NEEDED FOR 6 HOURS COUGH COUGH NEEDED FOR COUGH cefuroxime cefuroxime No cefuroxime [facility] axetil 500 axetil 500 axetil 500 Medical mg tablet mg tablet mg tablet TAKE 1 TAKE 1 TAKE 1 TABLET BY TABLET BY TABLET BY MOUTH 2 MOUTH 2 MOUTH 2 TIMES DAILY TIMES DAILY TIMES UNTIL ALL UNTIL ALL DAILY TAKEN TAKEN UNTIL ALL TAKEN clindamycin clindamycin No clindamyci [facility] HCl 300 mg HCl 300 mg n HCl 300 Medical capsule capsule mg capsule TAKE 1 TAKE 1 TAKE 1 CAPSULE BY CAPSULE BY CAPSULE BY MOUTH 4 MOUTH 4 MOUTH 4 TIMES DAILY TIMES DAILY TIMES FOR 10 DAYS FOR 10 DAYS DAILY FOR 10 DAYS clonazepam clonazepam No clonazepam [facility] 0.5 mg 0.5 mg 0.5 mg Medical tablet TAKE tablet TAKE tablet 1 TABLET BY 1 TABLET BY TAKE 1 MOUTH DAILY MOUTH DAILY TABLET BY NEEDED NEEDED MOUTH FOR ANXIETY FOR ANXIETY DAILY MAY MAKE MAY MAKE NEEDED FOR DROWSY DROWSY ANXIETY MAY MAKE DROWSY estradiol-n estradiol-n No 1 Q1D estradiol- [facility] orethindron orethindron norethindr Medical e acet 1 e acet 1 one acet 1 mg-0.5 mg mg-0.5 mg mg-0.5 mg tablet Take tablet Take tablet 1 tablet 1 tablet Take 1 every day every day tablet by oral by oral every day route. route. by oral route. fluoxetine fluoxetine No fluoxetine [facility] 20 mg 20 mg 20 mg Medical capsule capsule capsule TAKE 1 TAKE 1 TAKE 1 CAPSULE BY CAPSULE BY CAPSULE BY MOUTH 3 MOUTH 3 MOUTH 3 TIMES DAILY TIMES DAILY TIMES DAILY fluoxetine fluoxetine No fluoxetine [facility] 40 mg 40 mg 40 mg Medical capsule capsule capsule TAKE 2 TAKE 2 TAKE 2 CAPSULES BY CAPSULES BY CAPSULES MOUTH DAILY MOUTH DAILY BY MOUTH DAILY hydrocodone hydrocodone No hydrocodon [facility] 10 10 e 10 Medical mg-acetamin mg-acetamin mg-acetami ophen 325 ophen 325 nophen 325 mg tablet mg tablet mg tablet TAKE 1 TAKE 1 TAKE 1 TABLET TABLET TABLET TWICE A DAY TWICE A DAY TWICE A DAY hydroxyzine hydroxyzine No hydroxyzin [facility] pamoate 25 pamoate 25 e pamoate Medical mg capsule mg capsule 25 mg TAKE 1 TAKE 1 capsule CAPSULE BY CAPSULE BY TAKE 1 MOUTH AT MOUTH AT CAPSULE BY BEDTIME & 1 BEDTIME & 1 MOUTH AT CAPSULE CAPSULE BEDTIME & NEEDED FOR NEEDED FOR 1 CAPSULE INCREASED INCREASED NEEDED ANXIETY MAY ANXIETY MAY FOR MAKE DROWSY MAKE DROWSY INCREASED ANXIETY MAY MAKE DROWSY ibuprofen ibuprofen No ibuprofen [facility] 600 mg 600 mg 600 mg Medical tablet TAKE tablet TAKE tablet 1 TABLET BY 1 TABLET BY TAKE 1 MOUTH 4 MOUTH 4 TABLET BY TIMES DAILY TIMES DAILY MOUTH 4 NEEDED NEEDED TIMES FOR PAIN FOR PAIN DAILY (SCALE 4 6) (SCALE 4 6) NEEDED FOR PAIN (SCALE 4 6) lorazepam lorazepam No lorazepam [facility] 0.5 mg 0.5 mg 0.5 mg Medical tablet TAKE tablet TAKE tablet 1 TABLET BY 1 TABLET BY TAKE 1 MOUTH DAILY MOUTH DAILY TABLET BY NEEDED NEEDED MOUTH FOR ANXIETY FOR ANXIETY DAILY MAY MAKE MAY MAKE NEEDED FOR DROWSY MUST DROWSY MUST ANXIETY LAST 30 LAST 30 MAY MAKE DAYS DAYS DROWSY MUST LAST 30 DAYS methylpredn methylpredn No methylpred [facility] isolone 4 isolone 4 nisolone 4 Medical mg tablets mg tablets mg tablets in a dose in a dose in a dose pack SEE pack SEE pack SEE PACK; DAY1 PACK; DAY1 PACK; DAY1 6TABS; DAY2 6TABS; DAY2 6TABS; 5TAB; DAY3 5TAB; DAY3 DAY2 5TAB; 4TAB; DAY4 4TAB; DAY4 DAY3 4TAB; 3TAB; DAY5 3TAB; DAY5 DAY4 3TAB; 2TAB; DAY6 2TAB; DAY6 DAY5 2TAB; 1. WITH 1. WITH DAY6 1. FOOD FOOD WITH FOOD oseltamivir oseltamivir No oseltamivi [facility] 75 mg 75 mg r 75 mg Medical capsule capsule capsule TAKE 1 TAKE 1 TAKE 1 CAPSULE BY CAPSULE BY CAPSULE BY MOUTH EVERY MOUTH EVERY MOUTH 12 HOURS 12 HOURS EVERY 12 UNTIL ALL UNTIL ALL HOURS TAKEN TAKEN UNTIL ALL TAKEN prednisone prednisone No prednisone [facility] 10 mg 10 mg 10 mg Medical tablet TAKE tablet TAKE tablet 4 TABLETS 4 TABLETS TAKE 4 BY MOUTH BY MOUTH TABLETS BY ONCE DAILY ONCE DAILY MOUTH ONCE FOR 3 DAYS FOR 3 DAYS DAILY FOR 3 DAYS ProAir HFA ProAir HFA No ProAir HFA [facility] 90 90 90 Medical mcg/actuati mcg/actuati mcg/actuat on aerosol on aerosol ion inhaler inhaler aerosol SHAKE SHAKE inhaler INHALE 2 INHALE 2 SHAKE PUFF(S) PUFF(S) INHALE 2 INTO LUNGS INTO LUNGS PUFF(S) EVERY 4 EVERY 4 INTO LUNGS HOURS HOURS EVERY 4 NEEDED FOR NEEDED FOR HOURS FOR FOR NEEDED FOR WHEEZING WHEEZING FOR WHEEZING quetiapine quetiapine No quetiapine [facility] 400 mg 400 mg 400 mg Medical tablet TAKE tablet TAKE tablet 1/2 TO 1 1/2 TO 1 TAKE 1/2 TABLET BY TABLET BY TO 1 MOUTH AT MOUTH AT TABLET BY BEDTIME BEDTIME MOUTH AT BEDTIME tizanidine tizanidine No tizanidine [facility] 4 mg tablet 4 mg tablet 4 mg M edical TAKE 1 TAKE 1 tablet TABLET BY TABLET BY TAKE 1 MOUTH ONCE MOUTH ONCE TABLET BY DAILY DAILY MOUTH ONCE NEEDED MAY NEEDED MAY DAILY MAKE DROWSY MAKE DROWSY NEEDED MAY MAKE DROWSY tramadol 50 tramadol 50 No tramadol [facility] mg tablet mg tablet 50 mg Medi riky TAKE 1 TAKE 1 tablet TABLET BY TABLET BY TAKE 1 MOUTH ONCE MOUTH ONCE TABLET BY DAILY DAILY MOUTH ONCE NEEDED MAY NEEDED MAY DAILY MAKE DROWSY MAKE DROWSY NEEDED MAY MAKE DROWSY trazodone trazodone No trazodone [facility] 100 mg 100 mg 100 mg Medical tablet TAKE tablet TAKE tablet 2 TABLETS 2 TABLETS TAKE 2 BY MOUTH BY MOUTH TABLETS BY DAILY DAILY MOUTH DAILY trazodone trazodone No trazodone [facility] 150 mg 150 mg 150 mg Medical tablet TAKE tablet TAKE tablet 1 TABLET BY 1 TABLET BY TAKE 1 MOUTH AT MOUTH AT TABLET BY BEDTIME BEDTIME MOUTH AT NEEDED NEEDED BEDTIME NEEDED trazodone trazodone No trazodone [facility] 50 mg 50 mg 50 mg Medical tablet TAKE tablet TAKE tablet 1 OR 2 1 OR 2 TAKE 1 OR TABLETS BY TABLETS BY 2 TABLETS MOUTH ONCE MOUTH ONCE BY MOUTH DAILY DAILY ONCE DAILY NEEDED NEEDED NEEDED Virtussin Virtussin No Virtussin [facility] AC 10 AC 10 AC 10 Medical mg-100 mg/5 mg-100 mg/5 mg-100 mL oral mL oral mg/5 mL liquid TAKE liquid TAKE oral 1-1/2 1-1/2 liquid TEASPOONSFU TEASPOONSFU TAKE 1-1/2 L BY MOUTH L BY MOUTH TEASPOONSF EVERY DAY EVERY DAY UL BY WITH A WITH A MOUTH GLASS OF GLASS OF EVERY DAY WATER MAY WATER MAY WITH A MAKE DROWSY MAKE DROWSY GLASS OF WATER MAY MAKE DROWSY Ziac Ziac No Ziac [facility] Vital Signs Vital Name Observation Time Observation Value Comments Source HEIGHT 2021-10-15 11:42:00 157.5 cm WEIGHT 2021-10-15 11:42:00 83.915 kg HEIGHT 2021-10-15 11:42:00 157.5 cm WEIGHT 2021-10-15 11:42:00 83.915 kg BP Diastolic 2020-08-24 00:00:00 90 mm[Hg] Ting Mauricio edical Height 2020-08-24 00:00:00 62 [in_i] Ting rosado BMI (Body Mass 2020-08-24 00:00:00 32 kg/m2 [facility] Medical Index) BP Systolic 2020-08-24 00:00:00 124 mm[Hg] Ting rosado Body Weight 2020-08-24 00:00:00 175 [lb_av] Ting rosado Heart rate 2020-07-23 19:30:00 75 /min [facility] [place] [facility] Oxygen saturation in 2020-07-23 19:30:00 100 /min [facility] Arterial blood by [facility] Pulse oximetry Branch Systolic blood 2020-07-23 18:00:00 142 mm[Hg] Univer sity of pressure [place] [facility] Diastolic blood 2020-07-23 18:00:00 97 mm[Hg] Unive rsity of pressure [place] [facility] Respiratory rate 2020-07-23 18:00:00 20 /min Univ ersity [facility] [place] [facility] Body temperature 2020-07-23 16:37:00 37.11 Elodia [facility] [place] [facility] Body height 2020-07-23 16:37:00 157.5 cm [facility] [place] [facility] Body weight 2020-07-23 16:37:00 79.379 kg [facility] [place] [facility] BMI 2020-07-23 16:37:00 32.01 kg/m2 [facility] [place] [facility] Heart rate 2020-07-23 19:30:00 75 /min [facility] [place] [facility] Oxygen saturation in 2020-07-23 19:30:00 100 /min [facility] Arterial blood by [facility] Pulse oximetry Branch Systolic blood 2020-07-23 18:00:00 142 mm[Hg] Univer sity of pressure [place] [facility] Diastolic blood 2020-07-23 18:00:00 97 mm[Hg] Unive rsity of pressure [place] [facility] Respiratory rate 2020-07-23 18:00:00 20 /min Univ [facility] [place] [facility] Body temperature 2020-07-23 16:37:00 37.11 Elodia [facility] [place] [facility] Body height 2020-07-23 16:37:00 157.5 cm [facility] [place] [facility] Body weight 2020-07-23 16:37:00 79.379 kg [facility] [place] [facility] BMI 2020-07-23 16:37:00 32.01 kg/m2 [facility] [place] [facility] Systolic blood 2020-04-27 23:25:00 112 mm[Hg] Univer sity of pressure [place] [facility] Diastolic blood 2020-04-27 23:25:00 87 mm[Hg] Unive rsity of pressure [place] [facility] Heart rate 2020-04-27 23:25:00 78 /min [facility] [place] [facility] Respiratory rate 2020-04-27 23:25:00 18 /min [facility] [place] [facility] Oxygen saturation in 2020-04-27 23:25:00 99 /min [facility] Arterial blood by [place] [facility] Pulse oximetry Branch Body temperature 2020-04-27 17:24:00 37.06 Elodia [facility] [place] [facility] Body height 2020-04-27 17:24:00 157.5 cm [facility] [place] [facility] Body weight 2020-04-27 17:24:00 77.111 kg [facility] [place] [facility] BMI 2020-04-27 17:24:00 31.09 kg/m2 [facility] [place] [facility] Systolic blood 2020-04-27 23:25:00 112 mm[Hg] Univer sity of pressure [place] [facility] Diastolic blood 2020-04-27 23:25:00 87 mm[Hg] Unive rsity of pressure [place] [facility] Heart rate 2020-04-27 23:25:00 78 /min [facility] [place] [facility] Respiratory rate 2020-04-27 23:25:00 18 /min Univ [facility] [place] [facility] Oxygen saturation in 2020-04-27 23:25:00 99 /min [facility] Arterial blood by [place] [facility] Pulse oximetry Branch Body temperature 2020-04-27 17:24:00 37.06 Elodia [facility] [place] [facility] Body height 2020-04-27 17:24:00 157.5 cm [facility] [place] [facility] Body weight 2020-04-27 17:24:00 77.111 kg [facility] [place] [facility] BMI 2020-04-27 17:24:00 31.09 kg/m2 [facility] [place] [facility] Systolic blood 2020-02-08 16:45:00 114 mm[Hg] Univer sity of pressure [place] [facility] Diastolic blood 2020-02-08 16:45:00 84 mm[Hg] Unive rsity of pressure [place] [facility] Heart rate 2020-02-08 16:45:00 80 /min [facility] [place] [facility] Body temperature 2020-02-08 16:45:00 36.06 Elodia Univ [facility] [place] [facility] Respiratory rate 2020-02-08 16:45:00 20 /min [facility] [place] [facility] Oxygen saturation in 2020-02-08 16:45:00 96 /min [facility] Arterial blood by [place] [facility] Pulse oximetry Branch Body height 2020-02-08 00:37:00 152.4 cm [facility] [place] [facility] Body weight 2020-02-08 00:37:00 78.019 kg [facility] [place] [facility] BMI 2020-02-08 00:37:00 33.59 kg/m2 [facility] [place] [facility] Systolic blood 2020-02-08 16:45:00 114 mm[Hg] Univer sity of pressure [place] [facility] Diastolic blood 2020-02-08 16:45:00 84 mm[Hg] Unive rsity of pressure [place] [facility] Heart rate 2020-02-08 16:45:00 80 /min [facility] [place] [facility] Body temperature 2020-02-08 16:45:00 36.06 Elodia [facility] [place] [facility] Respiratory rate 2020-02-08 16:45:00 20 /min Univ [facility] [place] [facility] Oxygen saturation in 2020-02-08 16:45:00 96 /min [facility] Arterial blood by [place] [facility] Pulse oximetry Branch Body height 2020-02-08 00:37:00 152.4 cm [facility] [place] [facility] Body weight 2020-02-08 00:37:00 78.019 kg [facility] [place] [facility] BMI 2020-02-08 00:37:00 33.59 kg/m2 [facility] [place] [facility] Systolic blood 2020-01-25 02:00:00 134 mm[Hg] Univer sity of pressure [place] [facility] Diastolic blood 2020-01-25 02:00:00 94 mm[Hg] Unive rsity of pressure [place] [facility] Heart rate 2020-01-25 02:00:00 83 /min [facility] [place] [facility] Oxygen saturation in 2020-01-25 02:00:00 96 /min [facility] Arterial blood by [place] [facility] Pulse oximetry Branch Respiratory rate 2020-01-25 01:00:00 16 /min Univ ers[facility] [place] [facility] Body temperature 2020-01-24 22:09:00 37.11 Elodia [facility] [place] [facility] Body height 2020-01-24 22:09:00 157.5 cm [facility] [place] [facility] Body weight 2020-01-24 22:09:00 78.336 kg [facility] [place] [facility] BMI 2020-01-24 22:09:00 31.59 kg/m2 [facility] [place] [facility] Systolic blood 2020-01-25 02:00:00 134 mm[Hg] Univer sity of pressure [place] [facility] Diastolic blood 2020-01-25 02:00:00 94 mm[Hg] Unive rsity of pressure [place] [facility] Heart rate 2020-01-25 02:00:00 83 /min [facility] [place] [facility] Oxygen saturation in 2020-01-25 02:00:00 96 /min [facility] Arterial blood by [facility] riky Pulse oximetry Branch Respiratory rate 2020-01-25 01:00:00 16 /min Univ [facility] [place] [facility] Body temperature 2020-01-24 22:09:00 37.11 Elodia [facility] [place] [facility] Body height 2020-01-24 22:09:00 157.5 cm [facility] [place] [facility] Body weight 2020-01-24 22:09:00 78.336 kg [facility] [place] [facility] BMI 2020-01-24 22:09:00 31.59 kg/m2 [facility] [place] [facility] Systolic blood 2019-06-02 19:00:00 126 mm[Hg] Univer sity of pressure [place] [facility] Diastolic blood 2019-06-02 19:00:00 81 mm[Hg] Unive rsity of pressure [place] [facility] Heart rate 2019-06-02 19:00:00 86 /min [facility] [place] [facility] Respiratory rate 2019-06-02 19:00:00 17 /min Univ [facility] [place] [facility] Oxygen saturation in 2019-06-02 19:00:00 96 /min [facility] Arterial blood by [place] [facility] Pulse oximetry Branch Body temperature 2019-06-02 17:14:00 36.61 Elodia [facility] [place] [facility] Body height 2019-06-02 17:14:00 157.5 cm [facility] [place] [facility] [place] Body weight 2019-06-02 17:14:00 74.844 kg [facility] [place] [facility] BMI 2019-06-02 17:14:00 30.18 kg/m2 [facility] ty [facility] [place] [facility] Systolic blood 2019-06-02 19:00:00 126 mm[Hg] Univer sity of pressure [place] [facility] Diastolic blood 2019-06-02 19:00:00 81 mm[Hg] Unive rsity of pressure [facility] Heart rate 2019-06-02 19:00:00 86 /min [facility]i ty [facility] [place] [facility] Respiratory rate 2019-06-02 19:00:00 17 /min [facility] in 2019-06-02 19:00:00 96 /min University Arterial blood by [facility] Pulse oximetry Branch Body temperature 2019-06-02 17:14:00 36.61 Elodia [facility] ersity of [place] [facility] Body height 2019-06-02 17:14:00 157.5 cm [facility]i [facility] [place] [facility] Body weight 2019-06-02 17:14:00 74.844 kg [facility] [place] [facility] BMI 2019-06-02 17:14:00 30.18 kg/m2 Univers[facility] ty [facility] [place] [facility] Systolic blood 2021-10-15 17:34:00 121 mm[Hg] [facility] Diastolic blood 2021-10-15 17:34:00 69 mm[Hg] [facility] Heart rate 2021-10-15 17:34:00 68 /min [facility] Respiratory rate 2021-10-15 17:34:00 18 /min [facility] Oxygen saturation in 2021-10-15 17:34:00 100 /min [facility] Arterial blood by Medical nter Pulse oximetry Body temperature 2021-10-15 11:42:00 36.83 Elodia [facility] Body height 2021-10-15 11:42:00 157.5 cm [facility] Body weight 2021-10-15 11:42:00 83.915 kg [facility] BMI 2021-10-15 11:42:00 33.84 kg/m2 [facility] Procedures Procedure Date / Time Performing Clinician Source Performed CT BRAIN WITHOUT IV 2021-10-15 12:42:00 Elise Rice [facility] CONTRAST [facility] PHYSICIAN ORDERS 2021-08-13 05:01:00 [facility] ASSIGNMENT OF BENEFITS 2021-07-16 14:15:53 Doctor Unassigned, No [facility] ASSIGNMENT OF BENEFITS 2021-06-18 14:59:31 Doctor Unassigned, No [facility] ULTRASOUND OF PELVIS 2020-08-24 00:00:00 [facility] US OVARY TORSION 2020-07-23 19:10:59 [facility]BD[facility] PELVIS W 2020-07-23 17:15:00 Megan Lyons [facility] HEPATIC FUNCTION PANEL 2020-07-23 16:49:00 LyonsMegan clark [facility] ([id number]) (ALB,T.PRO,BILI Medical Branch T,BU/BC,ALT,AST,ALK PHOS) BASIC METABOLIC PANEL 2020-07-23 16:49:00 [facility] (NA, K, CL, CO2, Medical [place] GLUCOSE, BUN, CREATININE, CA) CBC WITH DIFF 2020-07-23 16:49:00 [facility] URINALYSIS 2020-07-23 16:49:00 [facility] POCT TEST 2020-07-23 16:48:00 Megan Lyons [facility] NOTICE OF PRIVACY 2020-07-23 16:32:51 Doctor Unassigned, No Univ [facility] PRACTICES [facility] CONSENT/REFUSAL FOR 2020-07-23 16:32:01 Doctor Unassigned, No [facility] CT HEAD WO CONTRAST 2020-04-27 19:40:14 Ann Cardozo [facility] TROPONIN I 2020-04-27 18:41:00 Ann Cardozo [facility] [place] [facility] BASIC METABOLIC PANEL 2020-04-27 18:41:00 Ann Cardozo [facility] (NA, K, CL, CO2, Medical Branch GLUCOSE, BUN, CREATININE, CA) CBC WITH DIFF 2020-04-27 18:41:00 Ann Cardozo [facility] HB ECG ROUTINE & RHYTHM 2020-04-27 17:58:58 Ann Cardozo [facility] Branch NOTICE OF PRIVACY 2020-04-27 17:21:19 Doctor Unassigned, No [facility] PRACTICES Name Medical Branch CONSENT/REFUSAL FOR 2020-04-27 17:21:03 [facility] Name Medical Branch TROPONIN I 2020-02-08 10:03:00 [facility] BASIC METABOLIC PANEL 2020-02-08 10:03:00 [facility] ([facility], K, CL, CO2, Medical Branch GLUCOSE, BUN, CREATININE, CA) CBC WITH DIFF 2020-02-08 10:03:00 [facility] TROPONIN I 2020-02-08 04:27:00 [facility] COVID-19 (ID NOW RAPID 2020-02-07 22:40:00 Angelo Robles [facility] TESTING) Medical Branch MAGNESIUM 2020-02-07 22:22:00 [facility] TROPONIN I 2020-02-07 22:22:00 Angelo Robles [facility] THYROID STIMULATING 2020-02-07 22:22:00 Sharon Ovalles [facility] HORMONE Medical Branch LIPID PANEL 2020-02-07 22:22:00 Josr [facility] ([id number])(TOTAL Medical Branch CHOLESTEROL, TRIGLYCERIDES, HDL) CT ABDOMEN PELVIS W 2020-02-07 21:28:58 Angelo Robles [facility] CONTRAST [facility] Branch CT CHEST PULMONARY 2020-02-07 21:28:58 Angelo Robles [facility] ANGIOGRAM Medical Branch XR CHEST 1 VW 2020-02-07 20:36:36 Angelo Robles [facility] POCT TEST 2020-02-07 20:03:00 Angelo Robles [facility] URINALYSIS 2020-02-07 20:02:00 Angelo Robles [facility] LIPASE 2020-02-07 19:58:00 Robles Angelo [facility] TROPONIN I 2020-02-07 19:58:00 Angelo Robles [facility] HEPATIC FUNCTION PANEL 2020-02-07 19:58:00 Angelo Robles [facility] ([id number]) (ALB,T.PRO,BILI Medical Branch T,BU/BC,ALT,AST,ALK PHOS) BASIC METABOLIC PANEL 2020-02-07 19:58:00 [facility] (NA, K, CL, CO2, Medical Branch GLUCOSE, BUN, CREATININE, CA) CBC WITH DIFF 2020-02-07 19:58:00 Robles [facility] PROTHROMBIN TIME / INR 2020-02-07 19:58:00 Angelo Robles [facility] ACTIVATED PARTIAL 2020-02-07 19:58:00 [facility] THRMPLAS GLORY [facility] N-TERMINAL PRO-BNP 2020-02-07 19:58:00 Angelo Robles [facility] HB ECG ROUTINE & RHYTHM 2020-02-07 19:51:07 Angelo Robles [facility] CONSENT/REFUSAL FOR 2020-02-07 19:42:57 Doctor Unassigned, No Un [facility] DIAGNOSIS AND TREATMENT Name Medical Branch CT ABDOMEN PELVIS W 2020-01-24 23:32:59 Mark Armijo [facility] CONTRAST [facility] POCT TEST 2020-01-24 23:22:00 Mark Armijo [facility] LIPASE 2020-01-24 22:41:00 Mark Armijo [facility] COMP. METABOLIC PANEL 2020-01-24 22:41:00 Mark Armijo [facility] ([id number]) Medical Branch CBC WITH DIFF 2020-01-24 22:41:00 Mark Armijo [facility] URINALYSIS 2020-01-24 22:41:00 Mark Armijo [facility] NOTICE OF PRIVACY 2020-01-24 22:03:28 Doctor Unassigned, No Univ [facility] PRACTICES Name [facility] CONSENT/REFUSAL FOR 2020-01-24 22:03:15 Doctor Unassigned, No Un iversity [facility] DIAGNOSIS AND TREATMENT Name [facility] CT ABDOMEN PELVIS W 2019-06-02 18:46:40 Candido Ramirez [facility] CONTRAST [facility] POCT TEST 2019-06-02 17:48:00 Candido Ramirez [facility] LIPASE 2019-06-02 17:47:00 Candido Ramirez [facility] COMP. METABOLIC PANEL 2019-06-02 17:47:00 Candido Ramirez [facility] ([id number]) [facility] [facility] CBC WITH DIFFERENTIAL 2019-06-02 17:47:00 [facility] URINALYSIS 2019-06-02 17:47:00 Candido Ramirez [facility] CONSENT/REFUSAL FOR 2019-06-02 17:08:56 Doctor Unassigned, No [facility] [place] [facility] TREATMENT Name [facility] Gi Tract Capsule 2017-11-10 00:00:00 [facility] Medical Plan of Care Planned Activity Planned Date Details Comments Source Future Scheduled 2022-10-[address] [facility] Test 00:00:00 [facility] r Screening (12+) [code = Tobacco Cessation Counseling and Screening (12+)] Future Scheduled 2021-12-[address] [facility] Test 00:00:00 (#1) [code = [facility] INFLUENZA VACCINE (#1)] Future Scheduled 2021-04-[address] [facility] Test 00:00:00 (12+) [code = [facility] DEPRESSION SCREENING (12+)] Future Scheduled [address] [facility] 00:[facility]:00 malignant neoplasm of Medica l Center cervix (procedure) [code = 746256593] Future Scheduled [address] [facility] 00:[facility]:00 (procedure) [code = [facility] 67626576] Future Scheduled 1999-10-09 DTAP/TDAP/TD VACCINES [facility] 00:00:00 (1 - Tdap) [code = Medical C enter DTAP/TDAP/TD VACCINES (1 - Tdap)] Future Scheduled 1998 HEPATITIS C SCREENING [facility] 00:00:00 [code = HEPATITIS C Medical Center SCREENING] Future Scheduled 1981-04-09 COVID-19 VACCINE (#1) [facility] Test 00:00:00 [code = COVID-[address] VACCINE (#1)] Encounters Start End Encounter Admission Attending Care Care Encounter Source Date/Time Date/Time Type Type Clinicians Facility Department ID 2021-02-10 Emergency [facility] [id number] Univers 12:15:04 ity [facility] 2021-02-09 Emergency [facility] [id number] Univers 17:33:49 ity [facility] 2021-02-09 Emergency [facility] [id number] Univers 01:23:23 ity [facility] 2021-02-08 Emergency [facility] [id number] Univers 22:46:53 ity [facility] 2021-10-15 2021-10-15 Emergency ER JAGJIT, [facility] Emergency [id number] [facility] 14:24:00 17:37:00 [place] 2021-10-15 2021-10-15 Emergency Jagjit [facility] [id number] [facility] [address] 14:24:00 17:37:00 [facility] 2021-10-15 2021-10-[address] [facility] [id number] [facility] 00:00:00 00:00:00 [facility] 2021-08-13 2021-08-13 Real Property Evaluator Luis, Radha Lab Main [facility] 1.2.8 40.114 [id number] Univers 12:15:00 12:30:00 Visit Ariel Britt 350.1.13.1 0 Kapil 4.2.7.2.686 Jessica BRADFORD [id number] Va dical [address] 2021-08-13 2021-08-13 Outpatient R BALWINDER [facility] [id number] Univers 12:15:00 12:15:00 ARIEL feliciano [facility] 2021-08-13 2021-08-13 Orders Doctor STALEY 1.2.840.114 [id number] Univers 00:00:00 00:00:00 Only Unassigned, SHARON 350.1.13.10 ity of [place] [facility] 4.2.7.2.686 Craig as [id number] [address] 2021-07-16 2021-07-16 Real Property Evaluator Luis, Adc Lab Main [facility] 1.2.8 40.114 [id number] Univers 09:30:00 09:45:00 Visit Paul Sams 350.1.13.10 [place] [phone] [place] dic[address] 2021-07-16 2021-07-16 [facility] [id number] [facility] 09:30:00 09:30:00 PAUL itgraciela [facility] 2021-07-16 2021-07-16 Orders Doctor STALEY 1.2.840.114 [id number] Univers 00:00:00 00:00:00 Only Unassigned, SHARON 350.1.13.10 ity of [place] [facility] 4.2.7.2.686 [place] [id number] [address] 2021-06-18 2021-06-18 Outpatient [facility] [id number] Univers 08:45:00 10:27:48 PAUL itgraciela [facility] 2021-06-18 2021-06-18 Real Property Evaluator Luis, Adc Lab Main [facility] 1.2.8 40.114 [id number] Univers 08:45:00 09:00:00 Visit Paul Sams 350.1.13.10 [place] [id number] [place] [address] 2021-06-18 2021-06-18 Orders Doctor LUÍS Del Cid2.840.114 [id number] Univers 00:00:00 00:00:00 Only Unassigned, SHARON 350.1.13.10 ity of [place] [facility] 4.2.7.2.686 [facility] [id number] [facility] 009 Branch 2020-08-24 2020-08-24 Outpatient GC_SWHAOMC_ PRIV PRIV [id number] [facility] 02:56:00 02:56:00 Ludwin [id number] Medic al 2020-08-24 2020-08-24 Outpatient Stan PRIV PRIV [id number] 00:00:00 00:00:00 Alex [id number] Rodgertristan [id number] 2020-08-24 2020-08-24 Alex PRIV [facility] 14 [facility] 00:00:00 00:00:00 tristan [facility] - Medic al DILLON Pierce_LARRY_ MD: [id number] [facility], [address], [place] [address] , Ph. 2020-07-23 2020-07-23 Emergency [facility], [facility] 1.2.840.114 [id number] [facility] 11:40:00 15:16:00 Megan Leon 350.1.13.10 i ty of [place] 4.2.7.2.686 [facility] [id number] [facility] 084 Branch 2020-07-23 2020-07-23 Emergency [facility], [facility] 1.2.840.114 [id number] 11:40:00 15:16:00 Megan Leon 350.1.13.10 [place] 4.2.7.2.686 [place] [id number] [facility] 2020-04-27 2020-04-27 Emergency [facility] 1.2.840.114 [id number] [facility] 11:25:00 18:21:00 Ann Leon 350.1.13.10 ity of [place] 4.2.7.2.686 [facility] [id number] [facility] 084 Branch 2020-04-27 2020-04-27 Emergency [facility] 1.2.840.114 [id number] 11:25:00 18:21:00 Ann Leon 350.1.13.10 [place] 4.2.7.2.686 [place] [id number] 2020-02-07 2020-02-08 Emergency Angelo Robles [facility] 1.2.840. 114 [id number] [facility] 14:46:00 14:26:00 Naun [place] 350.1.13.10 ity of [place] 4.2.7.2.686 [facility] [id number] [facility] 081 Branch 2020-02-07 2020-02-08 Emergency Angelo Robles [facility] 1.2.840. 114 [id number] 14:46:00 14:26:00 ShayyNaun jerryton 350.1.13.10 [place] 4.2.7.2.686 [place] [id number] 08 2020-01-24 2020-01-24 Emergency Armijo, [facility] 1.2.619.618 [id number] [facility] 17:12:00 21:15:00 Mark Esdras Leon 350.1.13.10 i ty of [place] 4.2.7.2.686 [facility] [id number] [place] [id number] Branch 2020-01-24 2020-01-24 Emergency Armijo, [facility] 1.2.467.416 [id number] 17:12:00 21:15:00 Mark Dewitt Edward 350.1.13.10 [place] 4.2.7.2.686 [place] [id number] 08 2020-01-24 2020-01-24 Orders Doctor STALEY 1.2.840.114 [id number] Univers 00:00:00 00:00:00 Only Unassigned, SHARON 350.1.13.10 ity of [place] [facility] 4.2.7.2.686 [facility] [id number] [facility] 009 Branch 2020-01-24 2020-01-24 Orders Doctor STALEY 1.2.840.114 [id number] 00:00:00 00:00:00 Only Unassigned, SHARON 350.1.13.10 [place] [facility] 4.2.7.2.686 [id number] 2019-06-02 2019-06-02 Emergency James [facility] 1.2.840.114 [id number] Univers 11:18:34 14:43:00 Candido Leon 350.1.13.10 i ty of [place] 4.2.7.2.686 [facility] [id number] [facility] 08 Branch 2019-06-02 2019-06-02 Emergency X JAMES, [facility] ERT [id number] [facility] 11:18:34 14:43:00 CANDIDO ity of [facility] 2019-06-02 2019-06-[address] [facility] 1.2.840.114 [id number] 11:18:34 14:43:00 Candido Leon 350.1.13.10 [place] 4.2.7.2.686 [place] [id number] 084 Results Test Test Test Results Result Source Description Time Comments Comments CT, BRAIN, 2021-10 Unlisted WITHOUT -05 Reason for CONTRAST 12:56:0 Exam - [facility] 0 Click Yes CENTERName: VIC JAMES and Tammie BOWLES : 1980 Sex: Reason F Below->No FINAL REPORT CT Head without contrast CLINICAL HISTORY: Headache, acute, normal neuro exam TECHNIQUE: Contiguous axial CT images through the head without contrast. This exam was performed according to the departmental dose optimization program which includes automated exposure control, adjustment of the mA and/or kV according to the patient size, and/or use of an iterative reconstruction technique. COMPARISON: None FINDINGS: There is no CT evidence of acute infarct or intracranial hemorrhage. There is no hydrocephalus, midline shift, or apparent mass effect. There are no extra-axial fluid collections. The skull is intact. The visualized paranasal sinuses are well-aerated. IMPRESSION: No CT evidence of acute infarct, hemorrhage, or hydrocephalus. Signed: Michael Maciel MDReport Verified Date/Time: 10/15/2021 12:56:49 OVARY 2020-07 Low suspicion for ovarian [facility] of TORSION -12 torsion. Small suspected [facility] 19:26:2 fundal uterine fibroid versus Branch 5 [...] of PELVIS W -12 radiographic findings to [employer] CONTRAST 17:59:0 explain patient's pain in the [...] PELVISLiver: Hepatic dome is not fully within kdgji-cv-gaeu. Mild focal fattyinfiltration at the falciform ligament. [...] absence of history of malignancy (2:93-95), unchanged. [facility], Radiant Results Inft User - 07/23/2020 1:00 [...] PELVISLiver: Hepatic dome is not fully within mcvlp-sy-cviy. Mild focal fattyinfiltration at the falciform ligament. [...] Interpretation Comme nts NA (test code = 6343085845) 139 mmol/L 135-145 K (test code = 9805003504) 3.9 mmol/L 3.5-5.0 CL (test code = 2723135431) 102 mmol/L 98-108 CO2 TOTAL (test code = 29 mmol/L 23-31 2369792139) AGAP (test code = 3330822452) 2-16 BUN (test code = 4220310176) 13 mg/dL 7-23 GLUCOSE (test code = 4865109514) 98 mg/dL 70-110 CREATININE (test code = 0.76 mg/dL 0.50-1.04 8876299879) CALCIUM (test code = 1251712771) 9.5 mg/dL 8.6-10.6 eGFR (test code = 6140328042) mL/min/1.73m2 JOSH (test code = JOSH) Association [...] or urine or abnormalities in imaging tests). [facility] (ALB, T.PRO, BILI T, BU/BC, ALT, AST, ALK PHOS)2020-07-23 17:09:38 Test Item Value Reference Range Interpretation Comments TOTAL BILI (test code = 0633708893) 0.4 mg/dL 0.1-1.1 BILI UNCON (test code = 6825736547) 0.2 mg/dL 0.1-1.1 BILI CONJ (test code = 9524908237) 0.0 mg/dL 0.0-0.3 T PROTEIN (test code = 8821987452) 6.9 g/dL 6.3-8.2 ALBUMIN (test code = 7269885261) 4.3 g/dL 3.5-5.0 ALK PHOS (test code = 1685978762) 113 U/L 34-122 ALTv (test code = 1742-6) 13 U/L 5-35 AST(SGOT) (test code = 7978000990) 29 U/L 13-40 Lab Interpretation (test code = Normal 80115-4) [facility] CenterUrinalysis2021-04-12 17:03:52 Test Item Value Reference Range Interpretation Comments APPEARANCE (test code = Clear Clear 5226864645) COLOR (test code = Straw Yellow A 1211825688) PH (test code = 4.8-8.0 2303623413) SP GRAVITY (test code = 1.003-1.030 9912403519) GLU U QUAL (test code = Normal Normal 4968714787) BLOOD (test code = Negative Negative 2257675668) KETONES (test code = Negative Negative 4626725199) PROTEIN (test code = Negative Negative 2887-8) UROBILIN (test code = Normal Normal 4111522568) BILIRUBIN (test code = Negative Negative 7887615519) NITRITE (test code = Negative Negative 1161927237) LEUK ROXANE (test code = 25/uL Negative A 0444129496) RBC/HPF (test code = See_Comment [Autom ated message] 8138857598) The system [employer] generated this result transmitted ref erence range: 0 - 3 HP F. The reference range was not used to int erpret this result as normal/abnormal . WBC/HPF (test code = See_Comment [Autom ated message] 4653329063) The system [employer] generated this result transmitted ref erence range: 0 - 5 HP F. The reference range was not used to int erpret this result as normal/abnormal . BACTERIA (test code = Few Negative A 1745513576) SQ EPITH (test code = HPF 9050440339) Lab Interpretation (test Abnormal code = 07105-4) [facility] with [id number] 16:55:13 Test Item Value Reference Range Interpretation Comments WBC (test code = See_Comment H [Automated 6690-2) message] The sy stem which generated this result transmitted reference range : 4.30 - 11.10 10*3/?L. The reference range was not used to interpret this result as normal/abnormal . RBC (test code = See_Comment [Automated 789-8) message] The sy stem which generated this [...] RDW-SD (test code = 42.4 fL 39.0-49.9 39880-4) RDW-CV (test code = 12.9 % 12.0-15.5 788-0) PLT (test code = See_Comment [Automated 777-3) message] The sy stem which generated this result transmitted reference range : 166 - 358 10*3/ ?L. The reference r susan was not used to interpret this result as normal/abnormal . MPV (test code = 11.5 fL 9.5-12.9 73609-5) NRBC/100 WBC (test See_Comment [Automat ed code = 3348396373) message] The system which generated this result transmitted reference range : 0.0 - 10.0 /100 WBCs. The refer ence range was not u sed to interpret th is result as normal/abnormal . NRBC x10^3 (test code <0.01 See_Comment [Auto mated = 3055884877) message] The s ystem which generated this result transmitted reference range : 10*3/?L. The reference range was not used to interpret this result as normal/abnormal . GRAN MAT (NEUT) % 65.4 % (test code = 770-8) IMM GRAN % (test code 0.40 % = 3306798105) LYMPH % (test code = 24.9 % 736-9) MONO % (test code = 7.7 % 5905-5) EOS % (test code = 1.1 % 713-8) BASO % (test code = 0.5 % 706-2) GRAN MAT x10^3(ANC) 7.44 10*3/uL 1.88-7.09 H (test code = 1364580969) IMM GRAN x10^3 (test 0.05 10*3/uL 0.00-0.06 code = 0777170179) LYMPH x10^3 (test code 2.83 10*3/uL 1.32-3.29 = 731-0) MONO x10^3 (test code 0.88 10*3/uL 0.33-0.92 = 742-7) EOS x10^3 (test code = 0.12 10*3/uL 0.03-0.39 711-2) BASO x10^3 (test code 0.06 10*3/uL 0.01-0.07 = 704-7) Lab Interpretation Abnormal (test code = 02585-8) [facility] Center[facility] [id number] 16:48:00 Test Item Value Reference Range Interpretation Comments POCT PREG (test code = 1605) negative On board controls acceptable with C present Line (test code = 3574) Lab Interpretation (test code = Normal 80026-4) [facility] Head W/O [id number] 19:42:08 No acute intracranial abnormality. CT HEAD [...] The velez-white matterdifferentiation is preserved. The calvarium and skull base are intact. ?The paranasal sinuses and mastoidair cells are clear. [facility], Radiant ResultsInft User - 04/27/2020 1:43 PM CSTCT HEAD WITHOUT CONTRASTHISTORY: Headache, acute, normal neuro exam COMPARISON: None.TECHNIQUE: CT axial images of the head were obtained from vertex to skullbase. Multiplanar reformats were submitted for review.FINDINGS:The ventricles and sulci are normal in size andconfiguration. Nointracranial abnormality such as hemorrhage, edema, mass-effect, midlineshift, hydrocephalus or extra axial fluid collection is appreciated. Thebasal cisterns are patent.No parenchymalattenuation abnormality. The velez-white matterdifferentiation is preserved.The calvarium and skull base are intact. The paranasal sinuses and mastoidair cells are clear.IMPRESSIONNo acute intracranial abnormality.[facility] CenterTroponin I 2020-04-27 19:09:00 Test Item Value Reference Range Interpretation Comments TROPONIN I (test <0.012 See_Comment [Automated code = 2494910321) message] The system which generated this result [...] ? Lab Interpretation Normal (test code = 12862-9) [facility] (NA, K, CL, CO2, GLUCOSE, BUN, CREATININE, CA)2020-04-27 18:58:00 Test Item Value Reference Range Interpretation Comments NA (test code = 139 mmol/L 135-145 0171169217) K (test code = 4.1 mmol/L 3.5-5 4399540927) CL (test code = 98 mmol/L 98-108 3351128665) CO2 TOTAL (test code = 32 mmol/L 23-31 H 9367527033) AGAP (test code = 2-16 6172109571) BUN (test code = 11 mg/dL 7-23 7029243246) GLUCOSE (test code = 86 mg/dL 70-110 2792866069) CREATININE (test code = 0.78 mg/dL 0.5-1.04 5306160017) CALCIUM (test code = 10.2 mg/dL 8.6-10.6 7454636799) eGFR Calculation mL/min/1.73m2 (Non-) (test code = 8718703333) eGFR Calculation mL/min/1.73m2 () (test code = 2860316574) JOSH (test code = JOSH) Association of [...] tests). Lab Interpretation Abnormal (test code = 71415-9) [facility] with [id number] 18:54:00 Test Item Value Reference Range Interpretation Comments WBC (test code = See_Comment [Automated 7703-2) message] The sy stem which generated this result transmitted reference range : 4.30 - 11.10 10*3/?L. The reference range was not used to interpret this result as normal/abnormal . RBC (test code = See_Comment [Automated 962-8) message] The sy stem which generated this [...] RDW-SD (test code = 42.5 fL 39-49.9 44350-1) RDW-CV (test code = 12.8 % 12-15.5 788-0) PLT (test code = See_Comment [Automated 977-3) message] The sy stem which generated this result transmitted reference range : 166 - 358 10*3/ ?L. The reference r susan was not used to interpret this result as normal/abnormal . MPV (test code = 11.9 fL 9.5-12.9 52509-7) NRBC/100 WBC (test See_Comment [Automat ed code = 2008760304) message] The system which generated this result transmitted reference range : 0.0 - 10.0 /100 WBCs. The refer ence range was not u sed to interpret th is result as normal/abnormal . NRBC x10^3 (test code <0.01 See_Comment [Auto mated = 1155376867) message] The s ystem which generated this result transmitted reference range : 10*3/?L. The reference range was not used to interpret this result as normal/abnormal . GRAN MAT (NEUT) % 62.6 % (test code = 770-8) IMM GRAN % (test code 0.20 % = 5262032237) LYMPH % (test code = 26.7 % 736-9) MONO % (test code = 9.0 % 5905-5) EOS % (test code = 1.1 % 713-8) BASO % (test code = 0.4 % 706-2) GRAN MAT x10^3(ANC) 5.07 10*3/uL 1.88-7.09 (test code = 0642218042) IMM GRAN x10^3 (test <0.03 0-0.06 code = 5341941868) LYMPH x10^3 (test code 2.16 10*3/uL 1.32-3.29 = 731-0) MONO x10^3 (test code 0.73 10*3/uL 0.33-0.92 = 742-7) EOS x10^3 (test code = 0.09 10*3/uL 0.03-0.39 711-2) BASO x10^3 (test code 0.03 10*3/uL 0.01-0.07 = 704-7) Lab Interpretation Abnormal (test code = 65762-8) [facility] CenterRodo [id number] 11:05:00 Test Item Value Reference Range Interpretation Comments TROPONIN I (test <0.012 See_Comment [Automated code = 9890263164) message] The system which generated this result [...] ? Lab Interpretation Normal (test code = 08395-3) [facility] Metabolic Panel (NA, K, CL, CO2, GLUCOSE, BUN, CREATININE, CA)2020-02-08 10:55:00 Test Item Value Reference Range Interpretation Comments NA (test code = 138 mmol/L 135-145 8567453049) K (test code = 4.1 mmol/L 3.5-5 2488608944) CL (test code = 104 mmol/L 98-108 1274345255) CO2 TOTAL (test code = 26 mmol/L 23-31 5785802073) AGAP (test code = 2-16 8479984351) BUN (test code = 14 mg/dL 7-23 2647138037) GLUCOSE (test code = 94 mg/dL 70-110 9274036484) CREATININE (test code 0.91 mg/dL 0.5-1.04 = 2199922891) CALCIUM (test code = 9.0 mg/dL 8.6-10.6 0494911305) eGFR Calculation mL/min/1.73m2 (Non-) (test code = 6107009504) eGFR Calculation mL/min/1.73m2 () (test code = 8252626676) JOSH (test code = JOSH) Association of [...] or urine or abnormalities in imaging tests). [facility] with Mbpjkmedzghd9624-57-07 10:26:00 Test Item Value Reference Range Interpretation Comments WBC (test code = See_Comment [Automated message] 6690-2) The system [employer] generated this result transmitted ref erence range: 4.30 - 1 1.10 10*3/?L. The re ference range was not u sed to interpret this result as normal/abnor mal. RBC (test code = See_Comment [Automated message] 789-8) The system [employer] generated this result transmitted ref erence range: [...] RDW-SD (test code 45.3 fL 39-49.9 = 37733-1) RDW-CV (test code 13.4 % 12-15.5 = 788-0) PLT (test code = See_Comment [Automated message] 777-3) The system [employer] generated this result transmitted ref erence range: 166 - 35 8 10*3/?L. The re ference range was not u sed to interpret this result as normal/abnor mal. MPV (test code = 11.9 fL 9.5-12.9 72757-1) NRBC/100 WBC (test See_Comment [Automat ed message] code = 4437631016) The syste m which generated this result transmitted ref erence range: 0.0 - 10 .0 /100 WBCs. The refer ence range was not u sed to interpret this result as normal/abnor mal. NRBC x10^3 (test <0.01 See_Comment [Automated message] code = 4887509865) The syste m which generated this result transmitted ref erence range: 10*3/?L. The reference range was not used to interpr et this result as normal/abnormal . GRAN MAT (NEUT) % 63.9 % (test code = 770-8) IMM GRAN % (test 0.40 % code = 5873560835) LYMPH % (test code 26.9 % = 736-9) MONO % (test code 6.7 % = 5905-5) EOS % (test code = 1.6 % 713-8) BASO % (test code 0.5 % = 706-2) GRAN MAT 4.94 10*3/uL 1.88-7.09 x10^3(ANC) (test code = 3070872568) IMM GRAN x10^3 0.03 10*3/uL 0-0.06 (test code = 2775349260) LYMPH x10^3 (test 2.08 10*3/uL 1.32-3.29 code = 731-0) MONO x10^3 (test 0.52 10*3/uL 0.33-0.92 code = 742-7) EOS x10^3 (test 0.12 10*3/uL 0.03-0.39 code = 711-2) BASO x10^3 (test 0.04 10*3/uL 0.01-0.07 code = 704-7) [facility] CenterTroponin [id number] 05:34:00 Test Item Value Reference Range Interpretation Comments TROPONIN I (test <0.012 See_Comment [Automated code = 2884405589) message] The system which generated this result [...] ? Lab Interpretation Normal (test code = 66991-2) [facility] CenterThyroid Stimulating Hormone (TSH)2020-02-08 02:02:00 Test Item Value Reference Range Interpretation Comments TSH (test code = See_Comment [Automated message] 7324879387) The system [employer] generated this result transmitted ref erence range: 0.45 - 4 .70 mIU/L. The refe rence range was not u sed to interpret this result as normal/abnor mal. Lab Interpretation (test Normal code = 35650-4) [facility] CenterMagnesium [id number] 01:31:00 Test Item Value Reference Range Interpretation Comments MAGNESIUM (test code = 7955481271) 2.1 mg/dL 1.7-2.4 Lab Interpretation (test code = Normal 00625-9) [facility] CenterLipid Panel (Total Cholesterol, Triglycerides, HDL)2020-02-08 01:31:00 Test Item Value Reference Range Interpretation Comments CHOL (test code = 220 mg/dL 120-200 H 8222347752) HDL (test code = 44 mg/dL >50 L 9937221658) HDLC RATIO (test code = See_Comment H [Au tomated message] 9019123294) The system [employer] generated this result transmit alistair reference range : <=4.5. The refe rence range was not u sed to interpret th is result as normal/abnormal . TRIG (test code = 179 mg/dL 30-170 H 8072637996) LDL CHOL (test code = 140 mg/dL See_Comment [Auto mated message] 53927-0) The system [employer] generated this result transmit alistair reference range : <=160. The refe rence range was not u sed to interpret th is result as normal/abnormal . VLDL (test code = 36 mg/dL 5-60 3095737130) Lab Interpretation (test Abnormal code = 64593-3) [facility] CenterCOVID-19 (ID NOW RAPID TESTING)2020-02-07 23:26:00 Test Item Value Reference Range Interpretation Comments SARS-CoV-2 Rapid ID NOW Not Detected Not Detected (test code = 72199-5) JOSH (test code = JOSH) ID NOW COVID-19 Assay is an isothermal nucleic acid amplification test intended for the qualitative detection of nucleic acid from SARS-CoV-2 viral RNA in nasopharyngeal (LEARNING SUPPORT AIDE) specimens. It is used under Emergency Use [...] indicated. Lab Interpretation Normal (test code = 74081-4) [facility] [id number] 22:52:00 Test Item Value Reference Range Interpretation Comments TROPONIN I (test <0.012 See_Comment [Automated code = 2774973869) message] The system which generated this result [...] ? Lab Interpretation Normal (test code = 25020-9) [facility] [id number] 21:53:30CT Abdomen and Pelvis with intravenous contrast. [...] Comparison is made with 01/24/2020 studies. Lower lungs: Clear. Liver, Gallbladder and Spleen: Liver is slightly [...] focal changes of diverticulitis. Normal appendix is visualized. Bladder and Reproductive Organs: Unremarkable unopacified urinary bladder.Bicornuate shapeduterus noted with thickened endometrium which could bephysiologic. No large adnexal masses or free fluid in the pelvis. Bones: Mild lumbar levoscoliosis. No acute findings. Soft tissues: Unremarkable. CONCLUSION: No acute intra-abdominal or pelvic abnormalities detected. [facility], Radiant Results Inft User - 02/07/2020 4:54 PM CDTCT Abdomen and Pelvis with intravenous contrast.CLINICAL HISTORY: Abdominal infection including peritonitis.DOSE: Up-to-date CT equipment and radiation dose reduction techniques wereemployed. CTDIvol: 7.65 mGy. DLP: 371 mGy-cm.TECHNIQUE [...] and thepancreatic duct appear of normal size.Peritoneum: No free airor free fluid. No lymphadenopathy.Pancreas and Adrenals: Unremarkable pancreas and adrenal glands.Kidneys and Ureters: No visible calculi in the renal collecting systems. No hydroureter or hydronephrosi s. Vessels: Normal.Retroperitoneum: No abnormal fluid or lymphadenopathy.Bowel: Mild constipation, generalized diverticulosis of large bowel notedwithout any focal changes of diverticulitis. 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 No large adnexal massesor free fluid in the pelvis.Bones: Mild lumbar levoscoliosis. No acute findings.Soft tissues: Unremarkable.CONCLUSION: No acute intra-abdominal or pelvic abnormalities detected.[facility] CHEST PULMONARY [id number] 21:48:38 No acute or chronic pulmonary embolus up to the segmental level. Preliminary Report Dictated by Resident: Radha Cee ?MD. Asad, have reviewed this study and agree with theabove report.PROCEDURE: CT ANGIO CHEST WITH CONTRAST - PE PROTOCOL CLINICAL INDICATION: Shortness of breath ? COMPARISON: Chest x-ray dated 02/07/2020. TECHNIQUE: ?Helical CT was performed and reconstructed at 1.25 mm slicethickness from lung bases to apices using 120 mL Isovue 370 intravenouscontrast, without complication. ? 3D axial MIPS and coronal MPRS weregenerated under radiologist supervision, and reviewed to further defineanatomy and possible pathology. ? (DFOV = 40cm) FINDINGS: PULMONARY ARTERIES: Enhancement is homogeneous and [...] Heart and pericardium: No detectable coronary arterial calcificati on.Unremarkable cardiac morphology and pericardium. Lymph nodes: No enlarged thoracic lymph nodes. Mediastinum: Unremarkable. Thoracic spine and chest wall: Unremarkable, with normal thoracic vertebralbody heights. Other Lines/Tubes/Devices/Hardware: None Visualized upper abdomen: The liver is not fully visualized but thought rolanda enlarged and demonstrates mild diffuse hypodensity, in keeping withfatty infiltration. The remaining visualized upper intradermal structuresappear unremarkable. [facility], Radiant Results Inft User - 02/07/2020 4:49 PM CDTPROCEDURE: CT ANGIO CHEST WITH CONTRAST - PE PROTOCOLCLINICAL INDICATION: Shortness [...] 40 cm)FINDINGS:PULMONARY ARTERIES: Enhancement is homogeneous and adequateand there is no acute or chronicpulmonary embolism up to the segmental level. The opacification anddiameter of the main pulmonary trunk, right and left pulmonary arteries arenormal.CHEST:Lower neck/thyroid: Unremarkable.Lungs: No focal consolidation or nodules are identified.Central airway: The central airway is patent.Pleura: No pleural effusion, thickening or pneumothorax.Thoracic aorta and great vessels: Common origin of the right innominateartery and left common carotid artery is noted. The opacification anddiameter of the thoracic aorta are normal.Heart and pericardium: No detectable coronary arterial calcification.Unremarkable cardiac morphology and pericardium.Lymph nodes: No enlarged thoracic lymph nodes.Mediastinum: Unremarkable.Thoracic spine and chest wall: Unremarkable, with normal thoracic vertebralbody heights.Other Lines/Tubes/Devices/Hardware: NoneVisualized upper abdomen: The liver is not fully visualized but thought rolanda enlarged and demonstrates mild diffuse hypodensity, in keeping withfatty infiltration. The remaining visualized upper intradermal structuresappear unremarkable. IMPRESSIONNo acute or chronic pulmonary embolus up to the segmental level. Preliminary Report Dictated by Resident: Radha Knox MD., have reviewed this study and agree with theabove report.[facility] CenterUrinalysis2020-10-27 20:52:00 Test Item Value Reference Range Interpretation Comments APPEARANCE (test code = Clear Clear 8257709844) COLOR (test code = Straw Yellow A 6768815812) PH (test code = 4.8-8.0 3888200922) SP GRAVITY (test code = 1.003-1.030 5481308649) GLU U QUAL (test code = Normal Normal 7498965393) BLOOD (test code = Negative Negative 1374883309) KETONES (test code = Negative Negative 8855636841) PROTEIN (test code = Negative Negative 2887-8) UROBILIN (test code = Normal Normal 1008458922) BILIRUBIN (test code = Negative Negative 2406338070) NITRITE (test code = Negative Negative 0563393066) LEUK ROXANE (test code = Negative Negative 7407120317) RBC/HPF (test code = See_Comment [Autom ated message] 6523629243) The system Spotzer generated this result transmitted ref erence range: 0 - 3 HP F. The reference range was not used to int erpret this result as normal/abnormal . WBC/HPF (test code = See_Comment [Autom ated message] 6404618857) The system Spotzer generated this result transmitted ref erence range: 0 - 5 HP F. The reference range was not used to int erpret this result as normal/abnormal . BACTERIA (test code = Few Negative A 6314625930) MUCOUS (test code = Slight Negative LPF A 8026469526) SQ EPITH (test code = HPF 7006469206) Lab Interpretation (test Abnormal code = 72725-6) [facility] 1 [id number] 20:38:53HISTORY: Chest pain. TECHNIQUE: Portable AP erect [...] CONCLUSIONS: No signs of acute cardiopulmonary disease. [facility] [id number] 20:36:00 Test Item Value Reference Range Interpretation Comments TROPONIN I (test <0.012 See_Comment [Automated code = 0327343052) message] The system which generated this result [...] ? Lab Interpretation Normal (test code = 10481-6) [facility] [id number] 20:33:00 Test Item Value Reference Range Interpretation Comments NT-proBNP (test code 53 pg/mL See_Comment [Autom ated = 2924562313) message] The system which generated this result transmitted reference range : <=125. The reference range was not used to interpret this result as normal/abnormal . JOSH (test code = JOSH) Biotin has been reported to cause a negative bias, interpret results relative to patient's use of biotin. Lab Interpretation Normal (test code = 04965-8) [facility] CenteraPTT2020-10-27 20:29:00 Test Item Value Reference Range Interpretation Comments APTT Patient (test See_Comment [Automat ed code = 3173-2) message] The system which generated this result transmitted reference range : 23 - 38 Seconds . The reference range was not used to interpr et this result as normal/abnormal . JOSH (test code = JOSH) The [facility] patient population mean normal value for aPTT is 30 seconds. Lab Interpretation Normal (test code = 84983-2) [facility] CenterProthrombin Time (PT) / [id number] 20:27:00 Test Item Value Reference Range Interpretation Comments PROTIME PATIENT (test See_Comment [Auto mated message] code = 5964-2) The system wh ich generated this result transmitted ref erence range: 12.0 - 1 4.7 Seconds. The re ference range was not u sed to interpret this result as normal/abnor mal. INR (test code = 6301-6) Nor mal INR <1.1; Warfarin Therap eutic range 2.0 to 3. 0 or 2.5 to 3.5, dep ending upon the indica tions. Lab Interpretation (test Normal code = 80708-9) [facility] CenterBasi Metabolic Panel (NA, K, CL, CO2, GLUCOSE, BUN, CREATININE, CA)2020-02-07 20:24:00 Test Item Value Reference Range Interpretation Comments NA (test code = 138 mmol/L 135-145 4147241830) K (test code = 3.9 mmol/L 3.5-5 6391552242) CL (test code = 98 mmol/L 98-108 6573451278) CO2 TOTAL (test code = 32 mmol/L 23-31 H 1951175229) AGAP (test code = 2-16 0197022815) BUN (test code = 13 mg/dL 7-23 0029281432) GLUCOSE (test code = 103 mg/dL 70-110 0594727562) CREATININE (test code = 1.33 mg/dL 0.5-1.04 H 0076797731) CALCIUM (test code = 10.0 mg/dL 8.6-10.6 2634475108) eGFR Calculation mL/min/1.73m2 (Non-) (test code = 5506232888) eGFR Calculation mL/min/1.73m2 () (test code = 2676057656) JOSH (test code = OJSH) Association of Glomerular Filtration Rate (GFR) and [...] tests). Lab Interpretation Abnormal (test code = 80038-8) [facility] CenterHepatic Function Panel (ALB, T.PRO, BILI T, BU/BC, ALT, AST, ALK PHOS)2020-02-07 20:24:00 Test Item Value Reference Range Interpretation Comments TOTAL BILI (test code = 2882535756) 0.4 mg/dL 0.1-1.1 BILI UNCON (test code = 2973544011) 0.3 mg/dL 0.1-1.1 BILI CONJ (test code = 0725577307) 0.0 mg/dL 0-0.3 T PROTEIN (test code = 7153597853) 7.4 g/dL 6.3-8.2 ALBUMIN (test code = 5466299347) 4.4 g/dL 3.5-5 ALK PHOS (test code = 9676661650) 99 U/L 34-122 ALTv (test code = 1742-6) 16 U/L 5-35 AST(SGOT) (test code = 9818929047) 19 U/L 13-40 Lab Interpretation (test code = Normal 24252-9) [facility] CenterLipase [id number] 20:24:00 Test Item Value Reference Range Interpretation Comments LIPASE (test code = 4931267606) 393 U/L 0-220 H Lab Interpretation (test code = Abnormal 09268-7) [facility] CenterCB with [id number] 20:19:00 Test Item Value Reference Range Interpretation Comments WBC (test code = See_Comment [Automated message] 6690-2) The system Spotzer generated this result transmitted ref erence range: 4.30 - 1 1.10 10*3/?L. The re ference range was not u sed to interpret this result as normal/abnor mal. RBC (test code = See_Comment [Automated message] 789-8) The system Spotzer generated this result transmitted ref erence range: [...] RDW-SD (test code 43.5 fL 39-49.9 = 11265-8) RDW-CV (test code 13.2 % 12-15.5 = 788-0) PLT (test code = See_Comment [Automated message] 777-3) The system whic h generated this result transmitted ref erence range: 166 - 35 8 10*3/?L. The re ference range was not u sed to interpret this result as normal/abnor mal. MPV (test code = 12.1 fL 9.5-12.9 11101-0) NRBC/100 WBC (test See_Comment [Automat ed message] code = 2285726838) The syste m which generated this result transmitted ref erence range: 0.0 - 10 .0 /100 WBCs. The refer ence range was not u sed to interpret this result as normal/abnor mal. NRBC x10^3 (test <0.01 See_Comment [Automated message] code = 3079023680) The syste m which generated this result transmitted ref erence range: 10*3/?L. The reference range was not used to interpr et this result as normal/abnormal . GRAN MAT (NEUT) % 62.9 % (test code = 770-8) IMM GRAN % (test 0.50 % code = 3463286443) LYMPH % (test code 26.9 % = 736-9) MONO % (test code 7.8 % = 5905-5) EOS % (test code = 1.2 % 713-8) BASO % (test code 0.7 % = 706-2) GRAN MAT 6.08 10*3/uL 1.88-7.09 x10^3(ANC) (test code = 6057553402) IMM GRAN x10^3 0.05 10*3/uL 0-0.06 (test code = 8395418836) LYMPH x10^3 (test 2.61 10*3/uL 1.32-3.29 code = 731-0) MONO x10^3 (test 0.76 10*3/uL 0.33-0.92 code = 742-7) EOS x10^3 (test 0.12 10*3/uL 0.03-0.39 code = 711-2) BASO x10^3 (test 0.07 10*3/uL 0.01-0.07 code = 704-7) [facility] CenterPOCT [id number] 20:03:00 Test Item Value Reference Range Interpretation Comments POCT PREG (test code = 1605) Negative On board controls acceptable with Present C Line (test code = 3574) POCT PREG LOT # (test code = 3575) [id number] POCT PREG TEST DATE (test 07/11/2021 code = 3576) Lab Interpretation (test code = Normal 52940-0) [facility] ABDOMEN PELVIS W [id number] 00:58:03Impression: 1. Bilateral pyelonephritis.2. Mild right renal [...] by lack of distention, butno gross gastric abnormalitiesare apparent. No uterine or adnexal abnormalities are evident. The urinary bladder isunremarkable in appearance. There is no evidence of colitis ordiverticulitis. The appendix is normal. There is no bowel obstruction.There is no free intraperitoneal fluid or free intraperitoneal air. Theincluded lung bases are clear. The included bony structures areunremarkable. [facility], Radiant Results Inft User - 01/24/2020 7:59 PM CDTOrdering Physician: MARK ARMIJOHistory: Acute generalized abdominal pain.Technique: CT abdomen and pelvis with intravenous contrast. Thisexamination was performed according to ALARA principles.Comparison: None.Findings: The liver is mildly enlarged. The gallbladder, spleen, pancreas, andadrenal glands are unremarkable. There is subtle cortical hypoenhancementwithin the superior poles of both kidneys, best appreciated on coronal andsagittal images. There is no hydronephrosis. Rightrenal cortical scarringis present. Evaluation of the stomach is limited by lack of distention, butnogross gastric abnormalities are apparent.No uterine or adnexal [...] cortical scarring.3. Mild hepatomegaly.RL: 460End of Report UnHouston Methodist West HospitalPOMA TEST 2020-01-24 23:22:00 Test Item Value Reference Range Interpretation Comments POCT PREG (test code = 1605) negative On board controls acceptable with present C Line (test code = 3574) POCT PREG LOT # (test code = 3575) [id number] POCT PREG TEST DATE (test 2020-11-10 code = 3576) Lab Interpretation (test code = Normal 67825-4) [facility] CenterURINALYSIS2020-10-13 23:21:00 Test Item Value Reference Range Interpretation Comments APPEARANCE (test code = Hazy Clear A 0377515308) COLOR (test code = Yellow Yellow 1100568706) PH (test code = 4.8-8.0 5493065843) SP GRAVITY (test code = 1.003-1.030 7854046247) GLU U QUAL (test code = Normal Normal 5423552393) BLOOD (test code = Negative Negative 5161677628) KETONES (test code = Negative Negative 7982435694) PROTEIN (test code = Negative Negative 2887-8) UROBILIN (test code = Normal Normal 6437812662) BILIRUBIN (test code = Negative Negative 2390020561) NITRITE (test code = Negative Negative 0495746234) LEUK ROXANE (test code = 250/uL Negative A 8434292987) RBC/HPF (test code = See_Comment [Autom ated message] 7425223463) The system Spotzer generated this result transmitted ref erence range: 0 - 3 HP F. The reference range was not used to int erpret this result as normal/abnormal . WBC/HPF (test code = See_Comment H [Autom ated message] 7164408147) The system Spotzer generated this result transmitted ref erence range: 0 - 5 HP F. The reference range was not used to int erpret this result as normal/abnormal . BACTERIA (test code = Moderate Negative A 0221597733) MUCOUS (test code = Slight Negative LPF A 1386059354) SQ EPITH (test code = HPF 0179525275) Lab Interpretation (test Abnormal code = 62282-8) [facility]. METABOLIC PANEL (47477)2020-01-24 23:01:00 Test Item Value Reference Range Interpretation Comments NA (test code = 139 mmol/L 135-145 6564997484) K (test code = 4.0 mmol/L 3.5-5 0978370184) CL (test code = 98 mmol/L 98-108 0605903920) CO2 TOTAL (test code = 30 mmol/L 23-31 1849333300) AGAP (test code = 2-16 6008519393) BUN (test code = 13 mg/dL 7-23 3102433348) GLUCOSE (test code = 105 mg/dL 70-110 5570998786) CREATININE (test code 1.00 mg/dL 0.5-1.04 = 2026507809) TOTAL BILI (test code 0.5 mg/dL 0.1-1.1 = 7641979831) CALCIUM (test code = 10.4 mg/dL 8.6-10.6 0824624739) T PROTEIN (test code = 7.7 g/dL 6.3-8.2 9861761156) ALBUMIN (test code = 4.5 g/dL 3.5-5 1472600610) ALK PHOS (test code = 118 U/L 34-122 0225497210) ALTv (test code = 30 U/L 5-35 1742-6) AST(SGOT) (test code = 22 U/L 13-40 0864756157) eGFR Calculation mL/min/1.73m2 (Non-) (test code = 2356487966) eGFR Calculation mL/min/1.73m2 () (test code = 3969372794) JOSH (test code = JOSH) Association of [...] or urine or abnormalities in imaging tests). [facility] CenterLIPASE2020-10-13 23:00:00 Test Item Value Reference Range Interpretation Comments LIPASE (test code = 1466308376) 125 U/L 0-220 Lab Interpretation (test code = Normal 75155-2) [facility] CenterCB WITH [id number] 22:55:00 Test Item Value Reference Range Interpretation Comments WBC (test code = See_Comment [Automated message] 6690-2) The system Spotzer generated this result transmitted ref erence range: 4.30 - 1 1.10 10*3/?L. The re ference range was not u sed to interpret this result as normal/abnor mal. RBC (test code = See_Comment [Automated message] 789-8) The system Spotzer generated this result transmitted ref erence range: [...] RDW-SD (test code 43.5 fL 39-49.9 = 29315-0) RDW-CV (test code 13.3 % 12-15.5 = 788-0) PLT (test code = See_Comment [Automated message] 777-3) The system Spotzer generated this result transmitted ref erence range: 166 - 35 8 10*3/?L. The re ference range was not u sed to interpret this result as normal/abnor mal. MPV (test code = 11.6 fL 9.5-12.9 92548-6) NRBC/100 WBC (test See_Comment [Automat ed message] code = 2470779545) The syste m which generated this result transmitted ref erence range: 0.0 - 10 .0 /100 WBCs. The refer ence range was not u sed to interpret this result as normal/abnor mal. NRBC x10^3 (test <0.01 See_Comment [Automated message] code = 0669276620) The syste m which generated this result transmitted ref erence range: 10*3/?L. The reference range was not used to interpr et this result as normal/abnormal . GRAN MAT (NEUT) % 59.7 % (test code = 770-8) IMM GRAN % (test 0.40 % code = 9895390203) LYMPH % (test code 29.5 % = 736-9) MONO % (test code 8.2 % = 5905-5) EOS % (test code = 1.7 % 713-8) BASO % (test code 0.5 % = 706-2) GRAN MAT 5.93 10*3/uL 1.88-7.09 x10^3(ANC) (test code = 7149305350) IMM GRAN x10^3 0.04 10*3/uL 0-0.06 (test code = 7598453735) LYMPH x10^3 (test 2.93 10*3/uL 1.32-3.29 code = 731-0) MONO x10^3 (test 0.81 10*3/uL 0.33-0.92 code = 742-7) EOS x10^3 (test 0.17 10*3/uL 0.03-0.39 code = 711-2) BASO x10^3 (test 0.05 10*3/uL 0.01-0.07 code = 704-7) [facility] W [id number] 19:13:50CT Abdomen and Pelvis with intravenous contrast. [...] right lower quadrant of the abdomen. Pancreas and Adrenals: ?Unremarkable pancreas and adrenal glands. Kidneys and Ureters: ?No visible calculi in the renal collecting systems. No hydroureter. The right ureter is slightly dilated without any apparentcause. No enhancing kidney lesions. Vessels: Normal. Retroperitoneum: No abnormal fluid or lymphadenopathy. Bowel: Mild diverticulosis of the sigmoid and descending colon notedwithout any acute changes ofdiverticulitis. Normal appendix is visualized.Small bowel gas pattern is unremarkable. Bladder and Reproductive Organs: No gross pathology is seen in theunopacified urinary bladder. Cysts are present in both ovaries, largestappears to be in the right ovary of 2.2 cm size, could be physiologic.Minimal free fluid noted in the cul-de-sac. Bones: Mild lumbar levoscoliosis is noted. No aggressive bone lesions orcompression deformity seen in the lower thoracic or lumbar vertebralbodies. Soft tissues: Unremarkable. CONCLUSION: No acute intra-abdominal or intrapelvic abnormalities detected.Please see additional comments above. [facility], Radiant Results Inft User - 06/02/2019 1:14 PM CSTCT Abdomen and Pelvis with intravenous contrast.CLINICAL HISTORY: Acute generalized abdominal pain.DOSE: Up-to-date CT [...] pleural effusion or pericardial effusion.Liver, Gallbladder and Spleen:Liver is approximately 17.3 cm in length andspleen [...] of the abdomen.Pancreas and Adrenals: Unremarkable pancreas andadrenal glands.Kidneys and Ureters: No visible calculi in the renal collecting systems. No hydroureter. The right ureter is slightly dilated without any apparentcause. No enhancing kidney lesions. Vessels: Normal.Retroperitoneum: No abnormal fluid or lymphadenopathy.Bowel: Mild diverticulosis of the sigmoid and descending colon notedwithout any acute changes of diverticulitis. Normal appendix is visua lized.Small bowel gas pattern is unremarkable.Bladder and Reproductive Organs: No gross pathology isseen in theunopacified urinary bladder. Cysts are present in both ovaries, largestappears to be in the right ovary of 2.2 cm size, could be physiologic.Minimal free fluid noted in the cul-de-sac.Bones:Mild lumbar levoscoliosis is noted. No aggressive bone lesions orcompression deformity seen in the lower thoracic or lumbar vertebralbodies.Soft tissues: Unremarkable.CONCLUSION: No acute intra-abdominal or intrapelvic abnormalities detected.Please see additional comments above.[facility] [id number] 18:13:00 Test Item Value Reference Range Interpretation Comments APPEARANCE (test code = Clear Clear 4570151821) COLOR (test code = Yellow Yellow 5826737318) PH (test code = 4.8-8.0 6440112397) SP GRAVITY (test code = 1.003-1.030 2015660608) GLU U QUAL (test code = Normal Normal 0191794683) BLOOD (test code = Negative Negative 4026761232) KETONES (test code = Negative Negative 1531445958) PROTEIN (test code = Negative Negative 2887-8) UROBILIN (test code = Normal Normal 9751712818) BILIRUBIN (test code = Negative Negative 2213057379) NITRITE (test code = Negative Negative 3755630520) LEUK ROXANE (test code = Negative Negative 5994901395) RBC/HPF (test code = See_Comment [Autom ated message] 4035704039) The system Spotzer generated this result transmitted ref erence range: 0 - 3 HP F. The reference range was not used to int erpret this result as normal/abnormal . WBC/HPF (test code = See_Comment [Autom ated message] 5618175697) The system Spotzer generated this result transmitted ref erence range: 0 - 5 HP F. The reference range was not used to int erpret this result as normal/abnormal . BACTERIA (test code = Negative Negative 1829603574) MUCOUS (test code = Slight Negative LPF A 6605237558) SQ EPITH (test code = HPF 5442645235) Lab Interpretation (test Abnormal code = 92363-8) [facility] CenterCOM. METABOLIC PANEL (62470)2019-06-02 18:09:00 Test Item Value Reference Range Interpretation Comments NA (test code = 138 mmol/L 135-145 4321328472) K (test code = 4.2 mmol/L 3.5-5 2227947895) CL (test code = 102 mmol/L 98-108 2558423506) CO2 TOTAL (test code = 27 mmol/L 23-31 4777741481) AGAP (test code = 2-16 8642895693) BUN (test code = 12 mg/dL 7-23 3403169073) GLUCOSE (test code = 93 mg/dL 70-110 9263349897) CREATININE (test code 0.73 mg/dL 0.5-1.04 = 3806695055) TOTAL BILI (test code 0.4 mg/dL 0.1-1.1 = 0031683600) CALCIUM (test code = 9.5 mg/dL 8.6-10.6 1243819851) T PROTEIN (test code = 7.3 g/dL 6.3-8.2 2081884677) ALBUMIN (test code = 4.6 g/dL 3.5-5 5927860073) ALK PHOS (test code = 84 U/L 34-122 2954682736) ALTv (test code = 12 U/L 5-35 1742-6) AST(SGOT) (test code = 21 U/L 13-40 0762897838) eGFR Calculation mL/min/1.73m2 (Non-) (test code = 1033869489) eGFR Calculation mL/min/1.73m2 () (test code = 2933679596) JOSH (test code = JOSH) Association of [...] or urine or abnormalities in imaging tests). [facility] [id number] 18:09:00 Test Item Value Reference Range Interpretation Comments LIPASE (test code = 3131762092) 108 U/L 0-220 Lab Interpretation (test code = Normal 14909-7) [facility] WITH [id number] 18:01:00 Test Item Value Reference Range Interpretation Comments WBC (test code = See_Comment [Automated message] 6690-2) The system [employer] generated this result transmitted ref erence range: 4.30 - 1 1.10 10*3/?L. The re ference range was not u sed to interpret this result as normal/abnor mal. RBC (test code = See_Comment [Automated message] 789-8) The system [employer] generated this result transmitted ref erence range: [...] RDW-SD (test code 46.2 fL 39-49.9 = 21425-8) RDW-CV (test code 14.1 % 12-15.5 = 788-0) PLT (test code = See_Comment [Automated message] 777-3) The system whic h generated this result transmitted ref erence range: 166 - 35 8 10*3/?L. The re ference range was not u sed to interpret this result as normal/abnor mal. MPV (test code = 10.8 fL 9.5-12.9 53754-3) NRBC/100 WBC (test See_Comment [Automat ed message] code = 5617662550) The syste m which generated this result transmitted ref erence range: 0.0 - 10 .0 /100 WBCs. The refer ence range was not u sed to interpret this result as normal/abnor mal. NRBC x10^3 (test <0.01 See_Comment [Automated message] code = 2735688512) The syste m which generated this result transmitted ref erence range: 10*3/?L. The reference range was not used to interpr et this result as normal/abnormal . GRAN MAT (NEUT) % 69.9 % (test code = 770-8) IMM GRAN % (test 0.70 % code = 4639401141) LYMPH % (test code 21.2 % = 736-9) MONO % (test code 6.2 % = 5905-5) EOS % (test code = 1.4 % 713-8) BASO % (test code 0.6 % = 706-2) GRAN MAT 6.08 10*3/uL 1.88-7.09 x10^3(ANC) (test code = 9686632744) IMM GRAN x10^3 0.06 10*3/uL 0-0.06 (test code = 8072979235) LYMPH x10^3 (test 1.84 10*3/uL 1.32-3.29 code = 731-0) MONO x10^3 (test 0.54 10*3/uL 0.33-0.92 code = 742-7) EOS x10^3 (test 0.12 10*3/uL 0.03-0.39 code = 711-2) BASO x10^3 (test 0.05 10*3/uL 0.01-0.07 code = 704-7) [facility] Test, [id number] 17:48:00 Test Item Value Reference Range Interpretation Comments POCT PREG (test code = 1605) negative POCT PREG LOT # (test code = 3575) [id number] POCT PREG TEST DATE (test 11/10/2020 code = 3576) Lab Interpretation (test code = Normal 79914-4) [facility]- XR CHEST 1 [id number] 19:54:00 [facility] [place] [facility] 1980 Age/S: 38 / F [address] [address] Unit #: [id number] Loc: [place] [address] Phys: Génesis King MD Acct: [id number] Dis Date: Status: ADM IN PHONE #: [phone] Exam Date: 02/22/20191940 FAX #: Reason: SOB EXAMS: CPT: [id number] XR CHEST 1 V 29133 Fluoro Time: DAP (Gy m2): Air Kerma [...] MD; Cony Partida MD; Génesis King MD PAGE1 Signed Report [facility]: [facility] [place] [facility] 1980 Age/S: 38 / F [address] Unit #: [id number] Loc: [place] [address] Phys: Génesis King MD Acct: [id number] Dis Date: Status: ADM IN PHONE #: [phone] Exam Date: 02/22/2019 1941 FAX #: Reason: SOB EXAMS: CPT: [id number] CHEST 1 V 68997 Fluoro Time: DAP (Gy m2): Air Kerma (mGy): (Continued) Technologist: Jordan Chacon, RT(R)(CT) Trnscb Date/Time: 02/22/2019 (1953) [email or web address] Orig Print D/T: S: 02/22/2019 (1956) PAGE 2 Signed Report- US RETRO [id number] 15:32:00 Name: VIC JAMES [place] : 1980 Age/S: 38 / F [address] [address] Unit #: [id number] Loc: [place] [address] Phys: Génesis King MD Acct: [id number] Dis Date: Status: ADM IN PHONE #: [phone] Exam Date: 02/22/2019 1200 FAX #: Reason: back pain EXAMS: CPT: [id number] US RETRO LTD 98697 EXAMINATION: - US RETRO LTD. LOCATION: T18. HISTORY: Back pain, pyelonephritis. COMPARISON:CT abdomen/pelvis 02/19/19. FINDINGS: Sonographic evaluation of the kidneys and bladder was performed utilizing velez scale, pulse Doppler and color flow imaging. The right kidney measures 12.7 cm and the left kidney measures 13 cm. The parenchymal echogenicity is within normal limits on both sides. There is no hydronephrosis. No calculus is identified. Possible 0.9 x 2.0 cm hypoechoic region in right u pper pole renal pelvis. Urinary bladder is distended. Bilateral ureteral jets noted. IMPRESSION: Nohydronephrosis. Possible 0.9 x 2.0 cm hypoechoic/cystic appearing region in right upper pole renal pelvis, nonspecific. Consider short- term follow-up given history of pyelonephritis and recent CT findings. at 1532 Reported andsigned by: Thuan Ricardo M.D. CC: Jordan Jean MD; Cony Partida MD; Génesis King MD Technologist: Nina Andrews, RT(R),IMAN(AB) Trnscb Date/Time: 02/22/2019 (1532) BarbieANS4 PAGE 1 Signed Report Name: VIC JAMES [place] : 1980 Age/S: 38 / F [address] [address] Unit #: [id number] Loc: [place] [address] Phys: Génesis King MD Acct: [id number] Dis Date: Status: ADM IN PHONE #: [phone] Exam Date: 02/22/2019 1200 FAX #: Reason: back pain EXAMS: CPT: [id number] [facility] [address] (Continued) Orig Print D/T: S: 02/22/2019 (1535) Probe: PAGE 2 Signed ReportCBC W/AUTO [id number] 12:09:00 Test Item Value Reference Range Interpretation [...] MDIFF) CONSISTA NT WITH AUTO DIFFERENTIAL. RBC [id number] 12:09:00 Test Item Value Reference Range Interpretation Comments ANISOCYTOSIS (test code = 1+ NONE ANISO) MICROCYTOSIS (test code = 1+ ON SCAN NONE MICR) PLATELET ESTIMATE (test ADEQUATE THOUSAND ADEQUATE code = PLTEST) PLATELET MORPHOLOGY (test NORMAL code = PLTMORPH) CBC W/AUTO [id number] 12:08:00 Test Item Value Reference Range Interpretation [...] = NO DIFF/SCN CRITERIA MDIFF) CBC W/AUTO [id number] 12:08:00 Test Item Value Reference Range Interpretation [...] code = NO DIFF/SCN CRITERIA MDIFF) RBC [id number] 12:08:00 Test Item Value Reference Range Interpretation Comments ANISOCYTOSIS (test code = 1+ NONE ANISO) MICROCYTOSIS (test code = 1+ ON SCAN NONE MICR) PLATELET ESTIMATE (test ADEQUATE THOUSAND ADEQUATE code = PLTEST) PLATELET MORPHOLOGY (test NORMAL code = PLTMORPH) CBC W/AUTO [id number] 12:08:00 Test Item Value Reference Range Interpretation [...] = NO DIFF/SCN CRITERIA MDIFF) BASIC METABOLIC [id number] 07:07:00 Test Item Value Reference Range Interpretation [...] CA) 7.8 MG/DL 8.5-10.1 L CBC W/AUTO [id number] 06:58:00 Test Item Value Reference Range Interpretation [...] represents a hi gh risk of severe sepsi s and/or septic shock.Neverthel ess, concentrations <0.5 ng/mL [...] represents a hi gh risk of severe sepsi s and/or septic shock.Neverthel ess, concentrations <0.5 ng/mL [...] ng/mL are obtained. - CT ABD PELVIS [id number] 20:34:00 Name: VIC JAMES [facility] : 1980 Age/S: 38 / F [address] [facility] Unit #: [id number] Loc: [place] [address] Phys: Cony Partida MD Acct: [id number] Dis Date: Status: ADM IN PHONE #: [phone] Exam Date: 02/19/20192024 FAX #: Reason: acute PN, possible ureteral stone EXAMS: CPT: [id number] CT ABD PELVIS W/CONT 379[address] CT Abdomen and Pelvis with contrast. Location: [...] is heterogeneous enhancement of the right renal cortex,with adjacent mild hazy inflammation. Findings are consistent with pyelonephritis. No ureteral calculus or hydronephrosis. Left kidney is unremarkable. Bowel is unremarkable. Pelvis: Normal appendix. Uterus is present. No bladder is partially distended. No free pelvic fluid. No acute osseous abnormality. Impression: 1. Right renal pyelonephritis. 2. No ureteral calculus or hydronephrosis. at 2033 Reported and signed by: Jatinder Funez M.D. CC: Jordan Jean MD; Cony Partida MD Technologist:Celia Cedeño RT(R)(CT) CTDI: DLP: Trnscb Date/Time: 02/19/2019 (2033) t.[email or web address] Orig Print D/T: S: 02/19/2019 (2036) PAGE 1 Signed ReportUA RFLX MICR CULT IF [id number] 19:43:00 Test Item Value Reference Range Interpretation [...] culture: Flank PainUA RFLX MICR CULT IF [id number] 19:28:00 Test Item Value Reference Range Interpretation [...] mi-IU/ML 0-6 N 0 - 6 NOT P REGNANT > 6 code = HCG) SUGGESTIVE OF E LOAN RISES TWO FOLD EVERY 2 DAYS; S UGGEST RECONFIRMING AF TER 2 DAYS. 150,000-2 00[address] TRIMESTER 10 ,000 - 50,000 2ND & 3R D TRIMESTER LACTIC [id number] 18:52:00 Test Item Value Reference Range Interpretation Comments LACTIC ACID (test code = LACT) 0.7 mmol/L 0.4-2.0 N CBC W/AUTO [id number] 17:55:00 Test Item Value Reference Range Interpretation [...] MDIFF) CONSISTA NT WITH AUTO DIFFERENTIAL. RBC [id number] 17:55:00 Test Item Value Reference Range Interpretation Comments ANISOCYTOSIS (test code = ANISO) 1+ NONE CBC W/AUTO [id number] 17:54:00 Test Item Value Reference Range Interpretation [...] CONSISTA NT WITH AUTO DIFFERENTIAL. CBC W/AUTO [id number] 17:54:00 Test Item Value Reference Range Interpretation [...] CONSISTA NT WITH AUTO DIFFERENTIAL. BASIC METABOLIC [id number] 17:43:00 Test Item Value Reference Range Interpretation [...] Unit/L 84-246 N code = LDH) LACTIC [id number] 17:43:00 Test Item Value Reference Range Interpretation Comments LACTIC ACID (test code = LACT) 0.8 mmol/L 0.4-2.0 N BASIC METABOLIC [id number] 17:36:00 Test Item Value Reference Range Interpretation [...] code Unit/L 84-246 = LDH) CBC W/AUTO [id number] 17:35:00 Test Item Value Reference Range Interpretation [...]
[2022-03-14 10:57] LABS: Absolute Lymphocytes (CBC) 1.7 K/uL (0.7-4.9); Hematocrit 41.9 % (36.0-45.0); Lymphocytes % 21.4 % (15.3-44.8); MCV 84.2 fL (80-100); MPV 9.1 fL (7.6-11.3); RBC Red Blood Cell Count 4.98 M/uL (3.86-4.86)
[2022-03-14 11:04] LABS: Protime INR 0.96
[2022-03-14 11:16] LABS: Bilirubin Total 0.4 mg/dL (0.2-1.0); Potassium 4.1 mmol/L (3.5-5.1); Protein, Total 7.7 g/dL (6.4-8.2)
[2022-03-14 11:34] LABS: Urine Blood Negative (Negative); Urine Glucose Negative (Negative); Urine Protein Negative (Negative); Urine Specific Gravity 1.015 (1.005-1.030)
[2022-03-14] MEDS ORDERED: ONDANSETRON 4 MG/2 ML VIAL ONE (11:38)
[2022-03-14] MEDS ORDERED: NA CHLORIDE 0.9% 1,000 ML ONE (11:38)
[2022-03-14] MEDS ORDERED: KETOROLAC 30 MG/ML INJ ONE (11:38)
--- NOTE | 2022-03-14 11:56 | RAD REPORT ---
EXAM DESCRIPTION: CTAbdomen Pelvis W Contrast - 03/14/2022 11:43 am CLINICAL HISTORY: r/o pyelonephritis COMPARISON: Abdomen Pelvis W Contrast dated 07/26/2020; Abdomen Pelvis W Contrast dated 11/17/2019; CT ABD PELVIS W CONTRAST dated 12/22/2013; CT ABD PELVIS W CONTRAST dated 10/13/2013 TECHNIQUE: CT of the abdomen and pelvis was performed with IV contrast. All CT scans are performed using dose optimization technique as appropriate and may include automated exposure control or mA/KV adjustment according to patient size. FINDINGS: Lower chest: No acute abnormality. Liver: No acute abnormality or suspicious lesions. Biliary: No biliary ductal dilatation. Stomach: No significant focal abnormality. Duodenum: No significant focal abnormality. Pancreas: No significant abnormality. Spleen: No significant abnormality. Adrenal: No suspicious lesions. Kidney/ureter: No hydronephrosis. No renal calculi. Retroperitoneum: No retroperitoneal adenopathy. Vascular: No aneurysm. Bowel: No significant focal abnormality. Normal appendix. Peritoneum: No ascites or free air. Bladder: Grossly unremarkable. Reproductive: No adnexal masses. Bones: No acute fracture. Other: n/a IMPRESSION: No acute intra-abdominal or pelvic finding. No urinary tract calculi or hydronephrosis. Normal appendix.
--- NOTE | 2022-03-14 13:08 | EDPHYS ---
Physician Documentation [facility] Name: Yohana Reeves Age: 41 yrs Sex: Female : 1980 Arrival Date: 03/14/2022 Time: 10:15 Bed 7 Private MD: ED Physician Blade Haas HPI: 03/14 14:33 This 41 yrs old Female presents to ER via Ambulatory with complaints of Flu Symptoms. kb 14:33 The patient complains of pain in the left flank. The pain does not radiate. Onset: The kb symptoms/episode began/occurred yesterday. Modifying factors: The symptoms are alleviated by nothing. the symptoms are aggravated by nothing. Associated signs and symptoms: Pertinent positives: dysuria, fever. Severity of pain: At its worst the pain was moderate in the emergency department the pain is unchanged. The patient has experienced similar episodes in the past. The patient has been recently seen by a physician: 1 week(s) ago. Pt reports she recently took a course of cipro for a UTI. States she started having low grade fever, left flank pian and dysuria since yesterday. 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 kb3 Historical: - Allergies: 10:24 No Known Allergies; kb3 - Home Meds: 10:24 Ambien 10 mg Oral tab 1 tab once daily [Active]; bisoprolol-hydrochlorothiazide Oral kb3 [Active]; hydrocodone-acetaminophen 5-325 mg Oral tab 1 tab every 4-6 hours [Active]; Lopressor 50 mg Oral tab [Active]; Prozac 20 mg Oral cap 1 cap 2 times per day [Active]; Latuda 80 mg oral tab 1 tab once daily [Active]; Lamictal 200 mg Oral tab 1 tab once daily [Active]; - PMHx: 10:24 GI Bleed; heart attack due to trauma; Kidney stones; Migraine; Depressive disorder; kb3 Chronic back pain; - Immunization history:: Adult Immunizations up to date, Client reports receiving the 2nd dose of the Covid vaccine, Last tetanus immunization: up to date. - Social history:: Smoking status: Patient denies any tobacco usage or history of. ROS: 14:28 Respiratory: Negative for shortness of breath, cough, wheezing, and pleuritic chest kb pain. 14:28 Constitutional: Positive for fever, malaise. 14:28 Back: Positive for flank pain, on the left. 14:28 : Positive for burning with urination. 14:28 All other systems are negative. Exam: 14:28 Constitutional: This is a well developed, well nourished patient who is awake, alert, kb and in no acute distress. Head/Face: Normocephalic, atraumatic. ENT: Moist Mucous membranes Cardiovascular: Regular rate and rhythm with a normal S1 and S2. No gallops, murmurs, or rubs. No pulse deficits. Respiratory: Respirations even and unlabored. No increased work of breathing. Talking in full sentences Abdomen/GI: Soft, non-tender. No distention Skin: Warm, dry with normal turgor. Normal color. MS/ Extremity: Pulses equal, no cyanosis. Neurovascular intact. Full, normal range of motion. Neuro: Awake and alert, GCS 15, oriented to person, place, time, and situation. Moves all extremities. Normal gait. Psych: Awake, alert, with orientation to person, place and time. Behavior, mood, and affect are within normal limits. 14:28 Back: CVA tenderness, that is mild, is noted on the left. Vital Signs: 10:21 BP 93 / 82; Pulse 82; Resp 91; Temp 98.5; Pulse Ox 99% ; Weight 86.18 kg; Height 5 ft. kb3 2 in. (157.48 cm); Pain 9/10; 10:32 BP 128 / 90; Pulse 76; Resp 16; Pulse Ox 97% on R/A; vg1 11:00 BP 113 / 74; Pulse 68; Resp 14; Pulse Ox 99% on R/A; vg1 10:21 Body Mass Index 34.75 (86.18 kg, 157.48 cm) kb3 MDM: 10:20 Patient medically screened. kb 14:28 Data reviewed: vital signs, nurses notes. Data interpreted: Pulse oximetry: on room air kb is 99 %. Interpretation: normal. Counseling: I had a detailed discussion with the patient and/or guardian regarding: the historical points, exam findings, and any diagnostic results supporting the discharge/admit diagnosis, lab results, radiology results, the need for outpatient follow up, a family practitioner, to return to the emergency department if symptoms worsen or persist or if there are any questions or concerns that arise at home. 03/14 10:25 Order name: Blood Culture Adult (2) kb 03/14 10:25 Order name: CBC with Diff; Complete Time: 11:06 kb 03/14 10:25 Order name: CMP; Complete Time: 11:23 kb 03/14 10:25 Order name: Lactate w/ 2H reflex if indic.; Complete Time: 11:23 kb 03/14 10:25 Order name: Protime (+inr); Complete Time: 11:06 kb 03/14 10:25 Order name: Ptt, Activated; Complete Time: 11:06 kb 03/14 10:25 Order name: Urine Microscopic Only; Complete Time: 11:59 kb 03/14 10:25 Order name: CT Abd/Pelvis - IV Contrast Only; Complete Time: 11:59 kb 03/14 11:35 Order name: Urine Dipstick-Ancillary; Complete Time: 11:40 EDMS 03/14 11:58 Order name: Urine --Ancillary (enter results); Complete Time: 13:14 eb 03/14 10:25 Order name: IV Saline Lock - Large Bore; Complete Time: 10:45 kb 03/14 10:25 Order name: Labs collected and sent; Complete Time: 10:45 kb Administered Medications: 11:48 Drug: NS 0.9% 1000 ml Route: IV; Rate: 1000 ml; Site: right antecubital; vg1 11:49 Drug: Zofran (Ondansetron) 4 mg Route: IVP; Site: right antecubital; vg1 11:51 Drug: Ketorolac 15 mg Route: IVP; Site: right antecubital; vg1 Disposition: 18:53 Co-signature as Attending Physician, Blade Haas MD. rn Disposition Summary: 03/14/22 13:08 Discharge Ordered Location: Home kb Problem: new kb Symptoms: are unchanged kb Condition: Stable kb Diagnosis - UTI/ Urinary tract infection, site not specified kb Followup: kb - With: Emergency Department - When: As needed - Reason: Worsening of condition Followup: kb - With: Private Physician - When: 2 - 3 days - Reason: Recheck today's complaints, Continuance of care, Re-evaluation by your physician Discharge Instructions: - Discharge Summary Sheet kb - Urinary Tract Infection, Adult, [id number]-jp-Iubt kb Forms: - Medication Reconciliation Form kb - Thank You Letter kb - Antibiotic Education kb - Prescription Opioid Use kb - Work release form ss Prescriptions: - Augmentin 875-125 mg Oral Tablet - take 1 tablet by ORAL route every 12 hours for 10 days; 20 tablet; Refills: 0, kb Product Selection Permitted Signatures: Dispatcher [employer] EDMS Dorothy Cedeño, NATHANC SRAVANI-Blade Stovall MD MD rn Garcia, Victoria, RN RN vg1 Carol Kelly RN RN kb3 Corrections: (The following items were deleted from the chart) 10:25 10:24 Home Meds: losartan 50 mg Oral tab 1 tab once daily; kb3 kb3
--- NOTE | 2022-03-14 13:08 | ER ---
Nurse's Notes [facility] Name: Yohana Reeves Age: 41 yrs Sex: Female : 1980 Arrival Date: 03/14/2022 Time: 10:15 Bed 7 Private MD: Diagnosis: UTI/ Urinary tract infection, site not specified Presentation: 03/14 10:21 Chief complaint: Patient states: kidney infection 2 weeks ago, took Cipro x7 days. kb3 States she began feeling unwell again yesterday with nausea, dysuria, left lower abdominal pain radiating into left flank. Coronavirus screen: Vaccine status: Patient reports receiving the 2nd dose of the covid vaccine. Client denies travel out of the [place] in the last 14 days. Ebola Screen: Patient negative for fever greater than or equal to 101.5 degrees Fahrenheit, and additional compatible Ebola Virus Disease symptoms Patient denies exposure to infectious person. Patient denies travel to an Ebola-affected area in the 21 days before illness onset. No symptoms or risks identified at this time. Initial Sepsis Screen: Does the patient meet any 2 criteria? No. Patient's initial sepsis screen is negative. Does the patient have a suspected source of infection? No. Patient's initial sepsis screen is negative. Risk Assessment: Do you want to hurt yourself or someone else? Patient reports no desire to harm self or others. Onset of symptoms was March 13, 2022. 10:21 Method Of Arrival: Ambulatory kb3 10:21 Acuity: NICOLASA 3 kb3 Triage Assessment: 10:24 General: Appears in no apparent distress. Behavior is calm, cooperative. Pain: kb3 Complains of pain in left low back Pain radiates to left lower quadrant Pain currently is 9 out of 10 on a pain scale. : Reports burning with urination, cramping, urgency, urinary frequency. 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 kb3 Historical: - Allergies: 10:24 No Known Allergies; kb3 - Home Meds: 10:24 Ambien 10 mg Oral tab 1 tab once daily [Active]; bisoprolol-hydrochlorothiazide Oral kb3 [Active]; hydrocodone-acetaminophen 5-325 mg Oral tab 1 tab every 4-6 hours [Active]; Lopressor 50 mg Oral tab [Active]; Prozac 20 mg Oral cap 1 cap 2 times per day [Active]; Latuda 80 mg oral tab 1 tab once daily [Active]; Lamictal 200 mg Oral tab 1 tab once daily [Active]; - PMHx: 10:24 GI Bleed; heart attack due to trauma; Kidney stones; Migraine; Depressive disorder; kb3 Chronic back pain; - Immunization history:: Adult Immunizations up to date, Client reports receiving the 2nd dose of the Covid vaccine, Last tetanus immunization: up to date. - Social history:: Smoking status: Patient denies any tobacco usage or history of. Screenin:35 Abuse screen: Denies threats or abuse. Nutritional screening: No deficits noted. vg1 Tuberculosis screening: No symptoms or risk factors identified. Fall Risk No fall in past 12 months (0 pts). No secondary diagnosis (0 pts). IV access (20 points). Ambulatory Aid- None/Bed Rest/Nurse Assist (0 pts). Gait- Normal/Bed Rest/Wheelchair (0 pts) Mental Status- Oriented to own ability (0 pts). Total Mora Fall Scale indicates No Risk (0-24 pts). Assessment: 10:35 General: Appears in no apparent distress. uncomfortable, Behavior is calm, cooperative. vg1 Pain: Complains of pain in posterior aspect of left lateral abdomen and left lower quadrant Pain currently is 9 out of 10 on a pain scale. Pain began 1 day ago. Neuro: Level of Consciousness is awake, alert, obeys commands, Oriented to person, place, time, situation. Cardiovascular: Patient's skin is warm and dry. Respiratory: Airway is patent Respiratory effort is even, unlabored. GI: Abdomen is flat, non-distended, Reports diarrhea, nausea. : Reports pain with urination, urinary frequency. EENT: No signs and/or symptoms were reported regarding the EENT system. Derm: Skin is pink, warm \T\ dry. 11:38 Reassessment: Patient appears in no apparent distress at this time. No changes from vg1 previously documented assessment. Patient and/or family updated on plan of care and expected duration. Pain level reassessed. Patient is alert, oriented x 3, equal unlabored respirations, skin warm/dry/pink. Vital Signs: 10:21 BP 93 / 82; Pulse 82; Resp 91; Temp 98.5; Pulse Ox 99% ; Weight 86.18 kg; Height 5 ft. kb3 2 in. (157.48 cm); Pain 9/10; 10:32 BP 128 / 90; Pulse 76; Resp 16; Pulse Ox 97% on R/A; vg1 11:00 BP 113 / 74; Pulse 68; Resp 14; Pulse Ox 99% on R/A; vg1 10:21 Body Mass Index 34.75 (86.18 kg, 157.48 cm) kb3 ED Course: 10:15 Patient arrived in ED. rg4 10:19 Dorothy Cedeño, [facility] kb 10:19 Blade Haas MD is Attending Physician. kb 10:24 Triage completed. kb3 10:24 Arm band placed on right wrist. kb3 10:27 Lelia Shaikh, RN is Primary Nurse. vg1 10:33 Patient has correct armband on for positive identification. Placed in gown. Bed in low mm9 position. Call light in reach. Side rails up X 1. Warm blanket given. Pulse ox on. NIBP on. 10:35 Initial lab(s) drawn, by me, sent to lab. Inserted saline lock: 20 gauge in right vg1 antecubital area, using aseptic technique. Blood collected. 10:39 First set of blood cultures drawn R AC. vg1 10:58 Second set of blood cultures drawn L AC. vg1 11:45 CT Abd/Pelvis - IV Contrast Only In Process Unspecified. EDMS 13:41 No provider procedures requiring assistance completed. ss 13:41 IV discontinued, intact, bleeding controlled, No redness/swelling at site. Pressure ss dressing applied. Administered Medications: 11:48 Drug: NS 0.9% 1000 ml Route: IV; Rate: 1000 ml; Site: right antecubital; vg1 11:49 Drug: Zofran (Ondansetron) 4 mg Route: IVP; Site: right antecubital; vg1 11:51 Drug: Ketorolac 15 mg Route: IVP; Site: right antecubital; vg1 Medication: 10:35 VIS not applicable for this client. vg1 Outcome: 13:08 Discharge ordered by . kb 13:41 Discharged to home ambulatory. ss 13:41 Condition: good 13:41 Discharge instructions given to patient, Instructed on discharge instructions, follow up and referral plans. medication usage, Demonstrated understanding of instructions, follow-up care, medications, Prescriptions given X 1. 13:41 Patient left the ED. ss Signatures: Dispatcher [employer] EDDorothy Mancia, JOEL LASSITER-Rochelle Murphy RN RN ss Mabel Shaikh4 Lelia Shaikh RN RN vg1 Carol Kelly RN RN kb3 Sonya Rodriguez mm9 Corrections: (The following items were deleted from the chart) 10:25 10:24 Home Meds: losartan 50 mg Oral tab 1 tab once daily; kb3 kb3 13:41 13:41 Patient did not have IV access during this emergency room visit. ss ss
[2022-03-14 13:11] LABS: Urine Specific Gravity/Preg 1.015 (1.005-1.030)
[2022-03-14 13:46] VITALS: TEMP 98.5
[2022-03-14 13:48] VITALS: BP 113/74; O2SAT 99
== END 2022-03-14 13:41 | disposition home or self-care (01) ==
LOC: ER 10:11
DX: N39.0 Urinary tract infection, site not specified (principal)
CPT/HCPCS: 87040 ×2; 85025; 36415; 81025; 85610; 83605; 85730; 80053; 74177; 96375; 96374; 99284; Q9967; J7030; J2405; 81003; 81015

== ENCOUNTER 2022-03-20 11:55 | Emergency (ER) | payer BC ==
--- OUTSIDE RECORDS SUMMARY | 2022-03-20 12:04 | XMS REPORT | Continuity of Care Document ---
:1980 Author Organization [facility] t Address [address] [place] [address] Dr. Perea. [address] [place] [address] Care Team Providers Name Role Phone No, Pcp [facility] Primary Care Physician Unavailable Dwayne HOWARD, Elise Arvizu Attending Clinician [phone] ELISE RICE Attending Clinician Unavailable Pob, [facility] Main Attending Clinician Unavailable Ariel Britt MD Attending Clinician ARIEL BRITT Attending Clinician Unavailable Doctor Unassigned, [place] Attending Clinician Unavailable Paul Sams MD Attending Clinician PAUL SAMS Attending Clinician Unavailable _[facility] Attending Clinician Unavailable Alex Pierce Attending Clinician [phone] Megan Aranda Attending Clinician Ann Cardozo DO Attending Clinician Angelo Robles MD Attending Clinician Naun Bush MD Attending Clinician Mark Monterroso Attending Clinician Candido Isabel Attending Clinician CANDIDO RAMIREZ Attending Clinician Unavailable _[facility]oper_J Admitting Clinician Unavailable Naun Bush MD Admitting Clinician CANDIDO RAMIREZ Admitting Clinician Unavailable Payers Payer Name Policy Type Policy Number Effective Date Expiration Date Esdras hayes TML GBRP CLAIMS [id number] 2017 00:00:00 [facility] [id number] 2017 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 PLAN 00:00:00 [place] TRUE CHOICE (PPO) Problems Condition Condition Condition Status Onset Resolution Last Treating Co mments Source Name Details Category Date Date Treatment Clinician Date Tachycardi Tachycardi Disease Active 2019- U nivers a a 0-28 ity of 00:00: [address] Branch Family Family Disease Active 2019- Univers history of history of 0-28 it y of early CAD early CAD 00:00: [address] Chest pain Chest pain Disease Active 2019-04 U nivers 0-27 ity of 00:00: [address] Branch Obesity Obesity Disease Active 2019-04 Univers (BMI (BMI 0-27 ity of 30-39.9) 30-39.9) 00:00: [address] Branch RLQ RLQ Disease Active 2019- Univers abdominal abdominal 9-24 ity of pain pain 00:00: [address] Branch Anxiety Anxiety Disease Active 2019- Univers 9-24 ity of 00:00: [address] Branch Chronic Chronic Disease Active 2019-0 Univers low back low back 9-24 ity of pain pain 00:00: [address] Branch Anemia Anemia Problem Active [facility]- Medical 00:00: 00 Hypertensi Hypertensi Problem Active [facility] ve ve 8- Medical disorder Disorder 00:00: 00 Hyperchole Hyperchole Problem Active [facility] sterolemia sterolemia 8- Me dical 00:00: 00 Allergies, Adverse Reactions, Alerts Allergy Allergy Status Severity Reaction(s) Onset Inactive Treating Comm ents Source Name Type Date Date Clinician bismutmendez DA Active [facility] subsalic 7-29 Clear ylate 00:00: Jones 00 [facility] NO KNOWN Drug Active [facility] ALLERGIE Class ity of S [facility] NO KNOWN Allergy Active [facility] Social History Social Habit Start Date Stop Date Quantity Comments Source History of Cigarette Smoker [facility] Tobacco use and 2021-10-15 2021-10-15 Never used NOREEN Fernandez exposure 00:00:00 00:00:00 [facility] Alcohol intake 2021-10-15 2021-10-15 Ex-drinker NOREEN Lynn es 00:00:00 00:00:00 [facility]finding[facility] Exposure to 2021-06-16 2021-07-16 Not sure University SARS-CoV-2 00:00:00 09:15:00 [facility] (event) Branch History SDOH 2020-02-08 2020-02-08 99 University o f Alcohol Frequency 00:00:00 00:00:00 [facility] edical Branch History SDOH 2020-02-08 2020-02-08 99 University o f Alcohol Std 00:00:00 00:00:00 [place] [facility] Branch History SDCA 2020-02-08 2020-02-08 99 University o f Alcohol Binge 00:00:00 00:00:00 [place] [facility] Tobacco Comment 2020-02-07 2020-02-07 rarely Universit y of 00:00:00 00:00:00 [facility] Alcohol Comment 2020-02-07 2020-02-07 occasionally Univers ity of 00:00:00 00:00:00 [facility] Cigarettes smoked 2020-01-24 2020-01-24 Univers ity of current (pack per 00:00:00 00:00:00 [facility] ) - Reported Branch Sex Assigned At [birth year] NOREEN Fernandez 00:00:00 00:00:00 [facility] Smoking Status Start Date Stop Date Source Heavy Tobacco Smoker [facility] Former smoker 2021-10-15 00:00:00 2021-10-15 00:00:00 [facility] Medications Ordered Filled Start Stop Current Ordering Indication Dosage Frequency Signature Comments Components Source Medication Medication Date Date Medication? Clinician (SIG) Name Name benzonatate Yes 100mg Take [address] (TESSALON) 7-05 mg by [facility] 100 MG 14:24: mouth 3 Medical capsule 12 (three) Center times daily as needed for Cough. meloxicam 2022-0 Yes 15mg QD Take [address] (MOBIC) 15 7-05 by mouth [facility] MG tablet 14:24: daily. Medica l 12 [place] benzonatate 0 Yes 100mg Take [address] (TESSALON) 7-05 mg by [facility] 100 MG 14:24: mouth 3 Medical capsule 12 (three) Center times daily as needed for Cough. meloxicam 0 Yes 15mg QD Take [address] (MOBIC) 15 7-05 by mouth [facility] MG tablet 14:24: daily. Medica l 12 [place] montelukast Yes 10mg QD Take [address] [facility] (SINGULAIR) 7-05 by mouth Luke [facility] 10 mg 14:24: nightly. Medical tablet 12 [place] montelukast Yes 10mg QD Take [address] (SINGULAIR) 7-05 by mouth Luke s 10 mg 14:24: nightly. Medical tablet 12 [place] butalbital- 2021- No 1{tbl} Take [address] acetaminoph 7-05 07-10 tablet by Rachel kes en-caffeine 00:00: 23:59 mouth Medi riky (FIORICET, 00 :00 every 6 Center ESGIC) (six) 50-325-40 hours as mg per needed for tablet Headaches for up to 5 days. butalbital- 2021- No 1{tbl} Take [address] acetaminoph 7-05 07-10 tablet by Rachel kes en-caffeine 00:00: 23:59 mouth Medi riky (FIORICET, 00 :00 every 6 Center ESGIC) (six) 50-325-40 hours as mg per needed for tablet Headaches for up to 5 days. morpHINE 2020- No 4mg 4 mg, Slow Un carol injection 4 07-23 IV Push, ity of mg 19:15: 18:10 ONCE, 1 [place] 00 :00 dose, [facility] Medical 07/23/20 at Branch 1415, STAT ondansetron 2020- No 4mg 4 mg, Slow Univers (ZOFRAN 07-2312 IV Push, ity of (PF)) 18:00: 16:55 ONCE, 1 [place] injection 4 00 :00 dose, Mon Med ical mg 4/12/21 at Branch 1300, LOR[place] ketorolac 2020- No 30mg 30 mg, Unive rs (TORADOL) 07-23 Slow IV ity of injection 18:00: 16:55 Push, [place] 30 mg 00 :00 ONCE, 1 Medical dose, Mon Branch 07/23/20 at 1300, LORENE
Fa culty member approving Restricted medication : MEGAN LYONS iohexol 2020- No [id number] 120mL 120 mL, Univers (OMNIPAQUE 07-23 Intravenou it y of 350 17:15: 17:10 s, ONCE, 1 [place] BULK-150 00 :00 dose, Mon Medica l mL) 07/23/20 at Branch injection 1215, 120 mL Routine ondansetron Yes [id number] 4mg Take 1 Univers (ZOFRAN 4-12 tablet by ity of ODT) 4 mg 00:00: mouth [place] disintegrat 00 every 8 Medic al ing tablet (eight) Branch hours as needed for Nausea and Vomiting (N/V). ondansetron Yes [id number] 4mg Take 1 Univers (ZOFRAN 4-12 tablet by ity of ODT) 4 mg 00:00: mouth [place] disintegrat 00 every 8 Medic al ing tablet (eight) Branch hours as needed for Nausea and Vomiting (N/V). ondansetron Yes [id number] 4mg Take 1 Univers (ZOFRAN 4-12 tablet by ity of ODT) 4 mg 00:00: mouth [place] disintegrat 00 every 8 Medic al ing tablet (eight) Branch hours as needed for Nausea and Vomiting (N/V). ondansetron Yes [id number] 4mg Take 1 Univers (ZOFRAN 4-12 tablet by ity of ODT) 4 mg 00:00: mouth [place] disintegrat 00 every 8 Medic al ing tablet (eight) Branch hours as needed for Nausea and Vomiting (N/V). ondansetron Yes [id number] 4mg Take 1 Univers (ZOFRAN 4-12 tablet by ity of ODT) 4 mg 00:00: mouth [place] disintegrat 00 every 8 Medic al ing tablet (eight) Branch hours as needed for Nausea and Vomiting (N/V). ondansetron Yes [id number] 4mg Take 1 Univers (ZOFRAN 4-12 tablet by ity of ODT) 4 mg 00:00: mouth [place] disintegrat 00 every 8 Medic al ing tablet (eight) Branch hours as needed for Nausea and Vomiting (N/V). ondansetron Yes [id number] 4mg Take 1 Univers (ZOFRAN 4-12 tablet [...] Medical 04/27/20 at Branch 1800, Routine proMETHazin No 25mg 25 mg, IV Univers e 04-27 Piggyback, ity of (PHENERGAN) 22:45: 22:45 ONCE, 1 [place] 25 mg in 00 :00 dose, Fri Medica l NaCl 0.9% 04/27/20 at Bran ch (NS) 50 mL 1645, 50 piggyback mL LORazepam No 1mg 1 mg, Slow U nivers (ATIVAN) 04-27 IV Push, ity of injection 1 21:30: 20:41 ONCE, 1 [place] mg 00 :00 dose, Fri Medical 04/27/20 at Branch 1530, STAT butalbital- 2020- No 1{tbl} 1 tablet, Univers acetaminoph 04-27 Oral, ity of en-caff 21:30: 20:40 ONCE, 1 [place] (ESGIC) 00 :00 dose, Fri Medical 50-325-40 04/27/20 at [facility] ch mg tablet 1 1530, tablet Routine [...] 1 dose, 04/27/20 at 1200, [place] ketorolac 0 2020- No 30mg 30 mg, Unive rs (TORADOL) 04-27 Slow IV ity of injection 18:00: 17:53 Push, [place] 30 mg 00 :00 ONCE, 1 Medical dose, Fri Branch 04/27/20 at 1200, LORENE
Fa culty member approving Restricted medication : ANN CARDOZO nebivolol 2019-04 Yes Take by Unive rs HCl 0-28 mouth ity of (BYSTOLIC 19:30: daily. [place] ORAL) Medical Branch zolpidem 2019-04 Yes 10mg Take 10 mg Uni vers (AMBIEN) 10 0-28 by mouth ity of mg tablet 19:30: at [place] [address] bedtime. Medical Branch FLUoxetine 2019-04 Yes 80mg Take 80 mg U nivers (PROZAC) 40 0-28 by mouth ity of mg capsule 19:30: daily. [place] [address] Medical Branch ARIPiprazol 2019-04 Yes 5mg Take 5 mg U nivers e (ABILIFY) 0-28 by mouth ity of 5 mg tablet 19:30: [place]. [place] HYDROcodone 2019-04 Yes [...] 0-28 mouth ity of (BYSTOLIC 19:30: daily. [place] ORAL) Medical Branch zolpidem 2019-04 Yes 10mg Take 10 mg Uni vers (AMBIEN) 10 0-28 by mouth ity of mg tablet 19:30: at [place] [address] bedtime. Medical Branch FLUoxetine 2019-04 Yes 80mg Take 80 mg U nivers (PROZAC) 40 0-28 by mouth ity of mg capsule 19:30: daily. [address] Branch ARIPiprazol 2019-04 Yes 5mg Take 5 mg U nivers e (ABILIFY) 0-28 by mouth ity of 5 mg tablet 19:30: daily. [facility] Branch HYDROcodone 2019-04 Yes 1{tbl} Take 1 [...] 0-28 mouth ity of (BYSTOLIC 19:30: daily. [place] ORAL) Medical Branch zolpidem 2019-04 Yes 10mg Take 10 mg Uni vers (AMBIEN) 10 0-28 by mouth ity of mg tablet 19:30: at [place] [address] bedtime. Medical Branch FLUoxetine 2019-04 Yes 80mg Take 80 mg U nivers (PROZAC) 40 0-28 by mouth ity of mg capsule 19:30: daily. [address] Branch ARIPiprazol 2019-04 Yes 5mg Take 5 mg U nivers e (ABILIFY) 0-28 by mouth ity of 5 mg tablet 19:30: daily. [facility] [address] [facility] Branch HYDROcodone 2019-04 Yes 1{tbl} Take 1 [...] 0-28 mouth ity of (BYSTOLIC 14:30: daily. [place] ORAL) 22 Medical Branch zolpidem 2019-04 Yes 10mg Take 10 mg Uni vers (AMBIEN) 10 0-28 by mouth ity of mg tablet 14:30: at [place] [address] bedtime. Medical Branch FLUoxetine 2019-04 Yes 80mg Take 80 mg U nivers (PROZAC) 40 0-28 by mouth ity of mg capsule 14:30: daily. [address] Branch ARIPiprazol 2019-04 Yes 5mg Take 5 mg U nivers e (ABILIFY) 0-28 by mouth ity of 5 mg tablet 14:30: daily. [facility] [address] [facility] Branch HYDROcodone 2019-04 Yes 1{tbl} Take 1 [...] 0-28 mouth ity of (BYSTOLIC 14:30: daily. [place] [address] Medical Branch zolpidem 2019-04 Yes 10mg Take 10 mg Uni vers (AMBIEN) 10 0-28 by mouth ity of mg tablet 14:30: at [place] [address] bedtime. Medical Branch FLUoxetine 2019-04 Yes 80mg Take 80 mg U nivers (PROZAC) 40 0-28 by mouth ity of mg capsule 14:30: daily. [address] ARIPiprazol 2019-04 Yes 5mg Take 5 mg U nivers e (ABILIFY) 0-28 by mouth ity of 5 mg tablet 14:30: daily. [facility] 22 Medical Branch HYDROcodone 2019-04 Yes 1{tbl} [...] 0-28 mouth ity of (BYSTOLIC 14:30: daily. [place] [address] Medical Branch zolpidem 2019-04 Yes 10mg Take 10 mg Uni vers (AMBIEN) 10 0-28 by mouth ity of mg tablet 14:30: at [place] [address] bedtime. Medical Branch FLUoxetine 2019-04 Yes 80mg Take 80 mg U nivers (PROZAC) 40 0-28 by mouth ity of mg capsule 14:30: daily. [address] ARIPiprazol 2019-04 Yes 5mg Take 5 mg U nivers e (ABILIFY) 0-28 by mouth ity of 5 mg tablet 14:30: daily. [address] Branch HYDROcodone 2019-04 Yes 1{tbl} Take [...] 0-28 mouth ity of (BYSTOLIC 14:30: daily. [place] [address] Medical Branch zolpidem 2019-04 Yes 10mg Take 10 mg Uni vers (AMBIEN) 10 0-28 by mouth ity of mg tablet 14:30: at [place] [address] bedtime. Medical Branch FLUoxetine 2019-04 Yes 80mg Take 80 mg U nivers (PROZAC) 40 0-28 by mouth ity of mg capsule 14:30: daily. [address] ARIPiprazol 2019-04 Yes 5mg Take 5 mg U nivers e (ABILIFY) 0-28 by mouth ity of 5 mg tablet 14:30: daily. [address] HYDROcodone 2019-04 Yes 1{tbl} Take 1 [...] 0-28 mouth ity of (BYSTOLIC 14:30: daily. [place] ORAL) 22 Medical Branch zolpidem 2019-04 Yes 10mg Take 10 mg Uni vers (AMBIEN) 10 0-28 by mouth ity of mg tablet 14:30: at [place] [address] bedtime. Medical Branch FLUoxetine 2019-04 Yes 80mg Take 80 mg U nivers (PROZAC) 40 0-28 by mouth ity of mg capsule 14:30: daily. [place] [address] Medical Branch ARIPiprazol 2019-04 Yes 5mg Take 5 mg U nivers e (ABILIFY) 0-28 by mouth ity of 5 mg tablet 14:30: daily. [place] [address] Medical Branch HYDROcodone 2019-04 Yes 1{tbl} Take [...] 0-28 mouth ity of (BYSTOLIC 14:30: daily. [facility]) Medical Branch zolpidem 2019-04 Yes 10mg Take 10 mg Uni vers (AMBIEN) 10 0-28 by mouth ity of mg tablet 14:30: at [place] [address] bedtime. Medical Branch FLUoxetine 2019-04 Yes 80mg Take 80 mg U nivers (PROZAC) 40 0-28 by mouth ity of mg capsule 14:30: daily. [place] [address] Medical Branch ARIPiprazol 2019-04 Yes 5mg Take 5 mg U nivers e (ABILIFY) 0-28 by mouth ity of 5 mg tablet 14:30: daily. [facility] [address] [facility] Branch HYDROcodone 2019-04 Yes 1{tbl} Take 1 [...] 02/08/20 at 0900, Until Discontinu ed, Routine ARIPiprazol [...] Yes 40mg 40 mg, Unive rs (LOVENOX) 0-28 Subcutaneo ity of injection 14:00: us, DAILY, [...] First dose [place] mg 00 on [facility] 02/07/20 Branch at 2100, Until Discontinu ed, Routine NaCl 0.9% 2019-04 2020- No IV Univers (NS) IV 0-07 02- Infusion, ity of infusion 02:00: 09:59 at 125 [place] 00 :00 mL/hr, Medical CONTINUOUS Branch , Starting Thu02/07/20 at 2100, Until Thu02/08/20 at 0459, Routine HYDROcodone 2019-04 Yes 1{tbl} 1 tablet, Univers -acetaminop 0-28 Oral, BID, it y of hen (NORCO 01:00: First dose [place] 5) 5-325 mg 00 on [facility] Medica l tablet 1 02/07/20 Branch tablet at 2000, Until Discontinu ed, Routine nitroglycer 2019-04 Yes .4mg 0.4 mg, Uni vers in 0-28 Sublingual ity of (NITROSTAT) 00:22: , Q5MIN [place] as sublingual 18 PRN, Medical tablet 0.4 Starting Branc h mg [facility] 02/07/20 at 192, Until Discontinu ed, Routine, Chest pain morpHINE 2019-04 2020- No 2mg 2 mg, Slow Un carol injection 2 0- 10- IV Push, ity of mg 00:21: 00:20 [place], [place] 44 :44 Starting Medical [facility] 02/07/20 at 192, Until Thu02/08/20 at 1920, Routine, Pain (scale 7-10), Chest pain acetaminoph 2019-04 2020- No 1{tbl} 1 tablet, Univers en-codeine 0- 10-30 Oral, ity of (TYLENOL 00:21: 00:20 Q6[facility], [place] #3) 300-30 33 :33 Starting Medic al mg tablet 1 [facility] tablet 02/07/20 at 192, Until [place] 02/09/20 at 1920, Routine, Pain (scale 4-6) acetaminoph 2019-04 Yes 650mg 650 mg, Un carol en 0-28 Oral, ity of (TYLENOL) 00:21: [place], [place] tablet 650 31 Starting Medic al mg [facility] 02/07/20 at 192, Until Discontinu ed, Routine, Pain (scale 1-3) FENTanyl PF 2019-04 2020- No 100ug 100 mcg, Univers (SUBLIMAZE 0-06 02- Slow IV ity o f (PF)) 23:30: 22:26 Push, [place] injection 00 :00 ONCE, 1 Medical 100 mcg dose, [facility] 02/07/20 at 1830, STAT nitroglycer 2019-04- No .4mg 0.4 mg, Un carol in 02-06 Sublingual ity of (NITROSTAT) 22:30: 21:30 , ONCE, 1 [place] sublingual 00 :00 dose, e Medi riky tablet 0.4 02/07/20 Branc h mg at 1730, LORENE acetaminoph 2019-04- No 975mg 975 mg, U nivers en 02-06 Oral, ity of (TYLENOL) 22:30: 21:30 [facility] dose, Tue Medi riky mg 02/07/20 Branch at 1730, LORENE iohexol 2019-04- No 120mL 120 mL, Unive rs (OMNIPAQUE 02-06 Intravenou it y of 350 21:30: 21:30 s, ONCE, 1 [place] BULK-150 00 :00 dose, Tue Medica l mL) 02/07/20 Branch injection at 1630, 120 mL Routine ondansetron 2019-04 2020- No 4mg 4 mg, Slow Univers (ZOFRAN 0-27 IV Push, ity of (PF)) 21:30: 20:30 ONCE, 1 [place] injection 4 00 :00 dose, Tue Med ical mg 02/07/20 Branch at 1630, LOR[place] morpHINE 2019-04- No 4mg 4 mg, Slow Un carol injection 4 027 -27 IV Push, ity of mg 21:30: 20:30 ONCE, 1 [place] 00 :00 dose, [facility] Medical 02/07/20 Branch at 1630, STAT morpHINE 2019-04 2020- No 4mg 4 mg, Slow Un carol injection 4 0-14 10-14 IV Push, ity of mg 02:15: 01:13 ONCE, 1 [place] 00 :00 dose, [facility] 01/24/20 Branch at 2115, STAT ondansetron 2019-04 2020- No 4mg 4 mg, Slow Univers (ZOFRAN 0-14 10-14 IV Push, ity of (PF)) 02:15: 01:13 ONCE, 1 [place] injection 4 00 :00 dose, Tue Med ical mg 10/13/20 Branch at 2115, [place] HYDROcodone 2019-04 Yes [...] hr 41 breakfast. Medical capsule Branch ondansetron 2019-04- No 4mg 4 mg, Slow Univers (ZOFRAN 0-14 10-13 IV Push, ity of (PF)) 01:00: 23:47 ONCE, 1 [place] injection 4 00 :00 dose, [facility] Med ical mg 01/24/20 Branch at 1999, LORENE morpHINE 2019-04- No 4mg 4 mg, Slow Un carol injection 4 0-14 10-13 IV Push, ity of mg 01:00: 23:47 ONCE, 1 [place] 00 :00 dose, [facility] Medical 01/24/20 Branch at 1999, STAT iohexol 2019-04- No 120mL 120 mL, Unive rs (OMNIPAQUE 0-13 10-13 Intravenou it y of 350 23:45: 23:45 s, ONCE, 1 [place] BULK-150 00 :00 dose, Tue Medica l mL) 01/24/20 Branch injection at 1845, 120 mL Routine zolpidem 2019-04 Yes 10mg Take 10 mg Uni vers (AMBIEN) 10 0-13 by mouth ity of mg tablet 22:12: at [place] [address] bedtime. Medical Branch FLUoxetine 2019-04 Yes 80mg Take 80 mg U nivers (PROZAC) 40 0-13 by mouth ity of mg capsule 22:12: daily. [place] [address] Medical Branch ARIPiprazol 2019-04 Yes 5mg Take 5 mg U nivers e (ABILIFY) 0-13 by mouth ity of 5 mg tablet 22:12: [place]. [place] hydrOXYzine 2019-04 2020- No 25mg Take 25 mg Univers 25 mg 0-13 10-13 by mouth ity of tablet 22:11: 00:00 at [place]time [place] :00 as needed Medical for Branch Itching or Anxiety. HYDROcodone 2020-1 2020- No 1{tbl} Take 1 U nivers [...] Indication s: acute pain ondansetron 2019- Yes [id number] 8mg Take 2 Univers 4 mg tablet 0-13 tablets by it y of 00:00: mouth [place] 00 every 8 Medical (eight) Branch hours as needed for Nausea and Vomiting (N/V). ondansetron 2019- Yes [id number] 8mg Take 2 Univers 4 mg tablet 0-13 tablets by it y of 00:00: mouth [place] 00 every 8 Medical (eight) Branch hours as needed for Nausea and Vomiting (N/V). ondansetron 2019- Yes [id number] 8mg Take 2 Univers 4 mg tablet 0-13 tablets by it y of 00:00: mouth [place] 00 every 8 Medical (eight) Branch hours as needed for Nausea and Vomiting (N/V). ondansetron 2019- Yes [id number] 8mg Take 2 Univers 4 mg tablet 0-13 tablets by it y of 00:00: mouth [place] 00 every 8 Medical (eight) Branch hours as needed for Nausea and Vomiting (N/V). ondansetron 2019- Yes [id number] 8mg Take 2 Univers 4 mg tablet 0-13 tablets by it y of 00:00: mouth [place] 00 every 8 Medical (eight) Branch hours as needed for Nausea and Vomiting (N/V). ondansetron 2019- Yes [id number] 8mg Take 2 Univers 4 mg tablet 0-13 tablets by it y of 00:00: mouth [place] 00 every 8 Medical (eight) Branch hours as needed for Nausea and Vomiting (N/V). ondansetron 2019- Yes [id number] 8mg Take 2 Univers 4 mg tablet 0-13 tablets by it y of 00:00: mouth [place] 00 every 8 Medical (eight) Branch hours as needed for Nausea and Vomiting (N/V). ondansetron 2019-04 Yes [id number] 8mg Take 2 Univers 4 mg tablet 0-13 tablets by it y of 00:00: mouth [place] 00 every 8 Medical (eight) Branch hours as needed for Nausea and Vomiting (N/V). ondansetron 2019-04 Yes [id number] 8mg Take 2 Univers 4 mg tablet 0-13 tablets by it y of 00:00: mouth [place] 00 every 8 Medical (eight) Branch hours as needed for Nausea and Vomiting (N/V). ciprofloxac 2019-04 Yes [id number] 500mg Take 1 Univers in HCl 500 0-13 tablet by ity of mg tablet 00:00: mouth 2 [place] 00 (two) Medical times Branch daily. traMADoL 50 2019-04 Yes [id number] 50mg Take 1 Univ ers mg tablet 0-13 tablet by ity o f 00:00: mouth [place] 00 every 6 Medical (six) Branch hours as needed for Pain (scale 4-6). Indication s: acute pain ondansetron 2019-04 Yes [id number] 8mg Take 2 Univers 4 mg tablet [...] Indication s: acute pain ciprofloxac 2019-04- No [id number] 500mg Take 1 Univers in HCl 500 0-13 10-28 tablet by ity of mg tablet 00:00: 00:00 mouth 2 [place] :00 (two) Medical times Branch daily. dicyclomine 2019- No 20mg 20 mg, Uni vers (BENTYL) 2-20 02-20 Intramuscu ity of injection 20:45: 20:08 lar, ONCE, [place] 20 mg 00 :00 1 dose, Medical [place] Branch 06/02/19 at 1445, Routine ondansetron 2019- No 4mg 4 mg, Slow Univers (ZOFRAN 2-20 02-20 IV Push, ity of (PF)) 19:00: 17:54 ONCE, 1 [place] injection 4 00 :00 dose, [place] Med ical mg 06/02/19 at Branch 1300, LORENE morpHINE 2019-2019- No 4mg 4 mg, Slow Un carol injection 4 -20 -20 IV Push, ity of mg 19:00: 17:54 ONCE, 1 [place] 00 :00 dose, [place] Medical 06/02/19 at Branch 1300, STAT iohexol 2019-2019- No 120mL 120 mL, Unive rs (OMNIPAQUE 2-20 -20 Intravenou it y of 350 18:37: 18:35 s, ONCE, 1 [place] BULK-150 00 :00 dose, [place] Medica l mL) 06/02/19 at Branch injection 1300, 120 mL Routine NaCl 0.9% 2019- No 1000mL at 999 Uni vers (NS) bolus 2-20 02-20 mL/hr, ity of infusion 17:30: 19:11 1,000 mL, [place] 1,000 mL 00 :00 IV Medical Infusion, Branch ONCE, 1 dose, [place] 06/02/19 at 1130, LORENE dicyclomine 2020-0 Yes [id number] 10mg Take 1 Univers (BENTYL) 10 2-20 capsule by it y of mg capsule 00:00: mouth 4 [place] (four) Medical times Branch daily as needed for Abdominal pain. dicyclomine 2020-0 Yes [id number] 10mg Take 1 Univers (BENTYL) 10 2-20 capsule by it y of mg capsule 00:00: mouth 4 [place] (four) Medical times Branch daily as needed for Abdominal pain. dicyclomine 2019-0 2020- No [id number] 10mg Take 1 Univers (BENTYL) 10 2-20 10-13 capsule by i ty of mg capsule 00:00: 00:00 mouth 4 [place] 00 :00 (four) Medical times Branch daily as needed for Abdominal pain. traMADol Yes [id number] 50mg Take 1 Univers (ULTRAM) 50 9-28 [id number] tablet by i ty of mg tablet 00:00: mouth [place] 00 every 8 Medical (eight) Branch hours as needed for Pain (scale 4-6). traMADol Yes [id number] 50mg Take 1 Univers (ULTRAM) 50 9-28 [id number] tablet by i ty of mg tablet 00:00: mouth [place] 00 every 8 Medical (eight) Branch hours as needed for Pain (scale 4-6). traMADol 2019- 2020- No [id number] 50mg Take 1 Univers (ULTRAM) 50 01-08 [id number] tablet by ity of mg tablet 00:00: 00:00 mouth [place] 00 :00 every 8 Medical (eight) Branch hours as needed for Pain (scale 4-6). nebivolol Yes Take by Unive rs HCl - mouth ity of (BYSTOLIC 20:20: daily. [place] ORAL) Medical Branch zolpidem Yes 10mg Take 10 mg Uni vers (AMBIEN) 10 - by mouth ity of mg tablet 20:20: at [place] [address] bedtime. Medical Branch HYDROcodone Yes 1{tbl} Take 1 Un carol -acetaminop -26 tablet by ity of hen 7.5-325 20:20: mouth 2 [place] mg per (two) Medical tablet times Branch daily. FLUoxetine Yes 60mg Take 60 mg U nivers (PROZAC) 40 01-06 by mouth ity of mg capsule 20:20: daily. Medical Branch ARIPiprazol Yes 5mg Take 5 mg U nivers e (ABILIFY) - by mouth ity of 5 mg tablet 20:20: [place] hydrOXYzine Yes 25mg Take 25 mg Univers 25 mg 01-06 by mouth ity of tablet 20:20: at bedtime [place] [id number] as needed Medical for Branch Itching or Anxiety. nebivolol Yes Take by Unive rs HCl - mouth ity of (BYSTOLIC 20:20: daily. [place] ORAL[place] [facility] zolpidem Yes 10mg Take 10 mg Uni vers (AMBIEN) 10 - by mouth ity of mg tablet 20:20: at [place] [address] bedtime. Medical Branch HYDROcodone 2019 Yes 1{tbl} Take 1 Un carol -acetaminop 9-26 tablet by ity of hen 7.5-325 20:20: mouth 2 [place] as mg per (two) Medical tablet times Branch daily. FLUoxetine 2019-0 Yes 60mg Take 60 mg U nivers (PROZAC) 40 01-06 by mouth ity of mg capsule 20:20: daily. [place] [facility] ARIPiprazol Yes 5mg Take 5 mg U nivers e (ABILIFY) 01-06 by mouth ity of 5 mg tablet 20:20: [facility] hydrOXYzine Yes 25mg Take 25 mg Univers 25 mg 01-06 by mouth ity of tablet 20:20: at bedtime [place] [id number] as needed Medical for Branch Itching or Anxiety. nebivolol Yes Take by Unive rs HCl 01-06 mouth ity of (BYSTOLIC 20:20: daily. [place] OR[place] [facility] Branch Abilify Abilify No Abilify [...] MAY MAKE DROWSY Ziac Ziac No Ziac [facility] Medical Vital Signs Vital Name Observation Time Observation Value Comments Source HEIGHT 2021-10-15 11:42:00 157.5 cm WEIGHT 2021-10-15 11:42:00 83.915 kg HEIGHT 2021-10-15 11:42:00 157.5 cm WEIGHT 2021-10-15 11:42:00 83.915 kg HEIGHT 2021-10-15 11:42:00 157.5 cm WEIGHT 2021-10-15 11:42:00 83.915 kg BP Diastolic 2020-08-24 00:00:00 90 mm[Hg] Ting rosado Height 2020-08-24 00:00:00 62 [in_i] [facility] BMI (Body Mass 2020-08-24 00:00:00 32 kg/m2 [facility] Index) BP Systolic 2020-08-24 00:00:00 124 mm[Hg] Ting rosado Body Weight 2020-08-24 00:00:00 175 [lb_av] Ting [facility] Heart rate 2020-07-23 19:30:00 75 /min [facility] Oxygen saturation in 2020-07-23 19:30:00 100 /min [facility] Arterial blood by [facility] Pulse oximetry Branch Systolic blood 2020-07-23 18:00:00 142 mm[Hg] Univer sity of pressure [facility] Diastolic blood 2020-07-23 18:00:00 97 mm[Hg] Unive rsity of pressure [facility] Respiratory rate 2020-07-23 18:00:00 20 /min [facility] Body temperature 2020-07-23 16:37:00 37.11 Elodia [facility] Body height 2020-07-23 16:37:00 157.5 cm [facility] Body weight 2020-07-23 16:37:00 79.379 kg [facility] BMI 2020-07-23 16:37:00 32.01 kg/m2 [facility] [place] [facility] Heart rate 2020-07-23 19:30:00 75 /min [facility] [place] [facility] Oxygen saturation in 2020-07-23 19:30:00 100 /min University of Arterial blood by [facility] Pulse oximetry Branch Systolic blood 2020-07-23 18:00:00 142 mm[Hg] Univer sity of pressure [place] [facility] Diastolic blood 2020-07-23 18:00:00 97 mm[Hg] Unive rsity of pressure [place] [facility] Respiratory rate 2020-07-23 18:00:00 20 /min Univ ersity [facility] [place] [facility] Body temperature 2020-07-23 16:37:00 37.11 Elodia Univ ersity [facility] [place] [facility] Body height 2020-07-23 16:37:00 157.5 cm [facility] [place] [facility] Body weight 2020-07-23 16:37:00 79.379 kg [facility] [place] [facility] BMI 2020-07-23 16:37:00 32.01 kg/m2 [facility] [place] [facility] Systolic blood 2020-04-27 23:25:00 112 mm[Hg] Univer sity of pressure [place] [facility] Diastolic blood 2020-04-27 23:25:00 87 mm[Hg] Unive rsity of pressure [place] [facility] Heart rate 2020-04-27 23:25:00 78 /min [facility] [place] [facility] Respiratory rate 2020-04-27 23:25:00 18 /min Univ ersity [facility] [place] [facility] Oxygen saturation in 2020-04-27 23:25:00 99 /min University of Arterial blood by [facility] Pulse oximetry Branch Body temperature 2020-04-27 17:24:00 37.06 Elodia Univ ersity [facility] [place] [facility] Body height 2020-04-27 17:24:00 157.5 cm [facility] [place] [facility] Body weight 2020-04-27 17:24:00 77.111 kg [facility] [place] [facility] BMI 2020-04-27 17:24:00 31.09 kg/m2 [facility] [place] [facility] Systolic blood 2020-04-27 23:25:00 112 mm[Hg] Univer sity of pressure [place] [facility] Diastolic blood 2020-04-27 23:25:00 87 mm[Hg] Unive rsity of pressure [place] [facility] Heart rate 2020-04-27 23:25:00 78 /min [facility] [place] [facility] Respiratory rate 2020-04-27 23:25:00 18 /min Univ ersity [facility] [place] [facility] Oxygen saturation in 2020-04-27 23:25:00 99 /min University of Arterial blood by [place] [email or web address] riky Pulse oximetry Branch Body temperature 2020-04-27 17:24:00 37.06 Elodia Univ ersity [facility] [place] [facility] Body height 2020-04-27 17:24:00 157.5 cm [facility] [place] [facility] Body weight 2020-04-27 17:24:00 77.111 kg [facility] [place] [facility] BMI 2020-04-27 17:24:00 31.09 kg/m2 [facility] [place] [facility] Systolic blood 2020-02-08 16:45:00 114 mm[Hg] Univer sity of pressure [place] [facility] Diastolic blood 2020-02-08 16:45:00 84 mm[Hg] Unive rsity of pressure [place] [facility] Heart rate 2020-02-08 16:45:00 80 /min [facility] [place] [facility] Body temperature 2020-02-08 16:45:00 36.06 Elodia Univ ersity [facility] [place] [facility] Respiratory rate 2020-02-08 16:45:00 20 /min Univ ersity [facility] [place] [facility] Oxygen saturation in 2020-02-08 16:45:00 96 /min University of Arterial blood by [place] [email or web address] riky Pulse oximetry Branch Body height 2020-02-08 00:37:00 152.4 cm [facility] [place] [facility] Body weight 2020-02-08 00:37:00 78.019 kg [facility] [place] [facility] BMI 2020-02-08 00:37:00 33.59 kg/m2 [facility] [place] [facility] Systolic blood 2020-02-08 16:45:00 114 mm[Hg] Univer sity of pressure [place] [facility] Diastolic blood 2020-02-08 16:45:00 84 mm[Hg] Unive rsity of pressure [place] [facility] Heart rate 2020-02-08 16:45:00 80 /min [facility] [place] [facility] Body temperature 2020-02-08 16:45:00 36.06 Elodia Univ ersity [facility] [place] [facility] Respiratory rate 2020-02-08 16:45:00 20 /min Univ ersity [facility] [place] [facility] Oxygen saturation in 2020-02-08 16:45:00 96 /min University of Arterial blood by [place] [facility] Pulse oximetry Branch Body height 2020-02-08 00:37:00 152.4 cm [facility] [place] [facility] Body weight 2020-02-08 00:37:00 78.019 kg [facility] [place] [facility] BMI 2020-02-08 00:37:00 33.59 kg/m2 [facility] [place] [facility] Systolic blood 2020-01-25 02:00:00 134 mm[Hg] Univer sity of pressure [place] [facility] Diastolic blood 2020-01-25 02:00:00 94 mm[Hg] Unive rsity of pressure [place] [facility] Heart rate 2020-01-25 02:00:00 83 /min [facility] [place] [facility] Oxygen saturation in 2020-01-25 02:00:00 96 /min University of Arterial blood by [place] [email or web address] riky Pulse oximetry Branch Respiratory rate 2020-01-25 01:00:00 16 /min Univ ersity [facility] [place] [facility] Body temperature 2020-01-24 22:09:00 37.11 Elodia Univ ersity [facility] [place] [facility] Body height 2020-01-24 22:09:00 157.5 cm [facility] [place] [facility] Body weight 2020-01-24 22:09:00 78.336 kg [facility] [place] [facility] BMI 2020-01-24 22:09:00 31.59 kg/m2 [facility] [place] [facility] Systolic blood 2020-01-25 02:00:00 134 mm[Hg] Univer sity of pressure [place] [facility] Diastolic blood 2020-01-25 02:00:00 94 mm[Hg] Unive rsity of pressure [place] [facility] Heart rate 2020-01-25 02:00:00 83 /min [facility] [place] [facility] Oxygen saturation in 2020-01-25 02:00:00 96 /min University of Arterial blood by [place] [email or web address] riky Pulse oximetry Branch Respiratory rate 2020-01-25 01:00:00 16 /min Univ ersity [facility] [place] [facility] Body temperature 2020-01-24 22:09:00 37.11 Elodia Univ [facility] [place] [facility] Body height 2020-01-24 22:09:00 157.5 cm [facility] [place] [facility] Body weight 2020-01-24 22:09:00 78.336 kg [facility] [place] [facility] BMI 2020-01-24 22:09:00 31.59 kg/m2 [facility] [place] [facility] Systolic blood 2019-06-02 19:00:00 126 mm[Hg] Univer sity of pressure [place] [facility] Diastolic blood 2019-06-02 19:00:00 81 mm[Hg] Unive rsity of pressure [place] [facility] Heart rate 2019-06-02 19:00:00 86 /min [facility] [place] [facility] Respiratory rate 2019-06-02 19:00:00 17 /min Univ [facility] [place] [facility] Oxygen saturation in 2019-06-02 19:00:00 96 /min University of Arterial blood by [place] [facility] Pulse oximetry Branch Body temperature 2019-06-02 17:14:00 36.61 Elodia Univ ersity [facility] [place] [facility] Body height 2019-06-02 17:14:00 157.5 cm [facility] [place] [facility] Body weight 2019-06-02 17:14:00 74.844 kg [facility] [place] [facility] BMI 2019-06-02 17:14:00 30.18 kg/m2 [facility] [place] [facility] Systolic blood 2019-06-02 19:00:00 126 mm[Hg] Univer sity of pressure [place] [facility] Diastolic blood 2019-06-02 19:00:00 81 mm[Hg] Unive rsity of pressure [place] [facility] Heart rate 2019-06-02 19:00:00 86 /min [facility] [place] [facility] Respiratory rate 2019-06-02 19:00:00 17 /min Univ [facility] [place] [facility] Oxygen saturation in 2019-06-02 19:00:00 96 /min University of Arterial blood by [place] [facility] Pulse oximetry Branch Body temperature 2019-06-02 17:14:00 36.61 Elodia Univ [facility] [place] [facility] Body height 2019-06-02 17:14:00 157.5 cm [facility] [place] [facility] Body weight 2019-06-02 17:14:00 74.844 kg [facility] [place] [facility] BMI 2019-06-02 17:14:00 30.18 kg/m2 [facility] Systolic blood 2021-10-15 17:34:00 121 mm[Hg] [facility] pressure [facility] Diastolic blood 2021-10-15 17:34:00 69 mm[Hg] [facility] Heart rate 2021-10-15 17:34:00 68 /min [facility] Respiratory rate 2021-10-15 17:34:00 18 /min [facility] Oxygen saturation in 2021-10-15 17:34:00 100 /min [facility] Arterial blood by Medical Ce nter Pulse oximetry Body temperature 2021-10-15 11:42:00 36.83 Elodia [facility] Body height 2021-10-15 11:42:00 157.5 cm [facility] Body weight 2021-10-15 11:42:00 83.915 kg [facility] BMI 2021-10-15 11:42:00 33.84 kg/m2 [facility] Procedures Procedure Date / Time Performing Clinician Source Performed CT BRAIN WITHOUT IV 2021-10-15 12:42:00 Elise [facility] PHYSICIAN ORDERS 2021-08-13 05:01:00 Doctor Unassigned, No [facility] ASSIGNMENT OF BENEFITS 2021-07-16 14:15:53 Doctor Unassigned, No [facility] ASSIGNMENT OF BENEFITS 2021-06-18 14:59:31 Doctor Unassigned, No [facility] ULTRASOUND OF PELVIS 2020-08-24 00:00:00 [facility] US OVARY TORSION 2020-07-23 19:10:59 Megan Lyons [facility] CT ABDOMEN PELVIS W 2020-07-23 17:15:00 Megan Lyons [facility] CONTRAST [facility] Branch HEPATIC FUNCTION PANEL 2020-07-23 16:49:00 Megan Lyons [facility] ([id number]) (ALB,T.PRO,BILI Medical Branch T,BU/BC,ALT,AST,ALK PHOS) BASIC METABOLIC PANEL 2020-07-23 16:49:00 Lyons, [facility] (NA, K, CL, CO2, Medical Branch GLUCOSE, BUN, CREATININE, CA) CBC WITH DIFF 2020-07-23 16:49:00 Megan Lyons [facility] URINALYSIS 2020-07-23 16:49:00 Megan Lyons [facility] POCT TEST 2020-07-23 16:48:00 Megan Lyons [facility] NOTICE OF PRIVACY 2020-07-23 16:32:51 Doctor Unassigned, No [facility] CONSENT/REFUSAL FOR 2020-07-23 16:32:01 Doctor Unassigned, No [facility] [place] DIAGNOSIS AND TREATMENT Name [facility] CT HEAD WO CONTRAST 2020-04-27 19:40:14 Ann Cardozo [facility] TROPONIN I 2020-04-27 18:41:00 Ann Cardozo [facility] BASIC METABOLIC PANEL 2020-04-27 18:41:00 Ann Cardozo [facility] (NA, K, CL, CO2, Medical Branch GLUCOSE, BUN, CREATININE, CA) CBC WITH DIFF 2020-04-27 18:41:00 Ann Cardozo [facility] HB ECG ROUTINE & RHYTHM 2020-04-27 17:58:58 Ann Cardozo [facility] NOTICE OF PRIVACY 2020-04-27 17:21:19 Doctor Unassigned, No [facility] CONSENT/REFUSAL FOR 2020-04-27 17:21:03 Doctor [facility]igned, No [facility] Name [facility] TROPONIN I 2020-02-08 10:03:00 Sharon Ovalles [facility] BASIC METABOLIC PANEL 2020-02-08 10:03:00 Sharon Ovalles [facility] (NA, K, CL, CO2, Medical Branch GLUCOSE, BUN, CREATININE, CA) CBC WITH DIFF 2020-02-08 10:03:00 Josr Sharon [facility] TROPONIN I 2020-02-08 04:27:00 Josr [facility] COVID-19 (ID NOW RAPID 2020-02-07 22:40:00 Angelo Robles [facility] TESTING) Medical Branch MAGNESIUM 2020-02-07 22:22:00 Josr [facility] TROPONIN I 2020-02-07 22:22:[address] [facility] [place] THYROID STIMULATING 2020-02-07 22:22:00 Josr [facility] HORMONE [facility] Branch LIPID PANEL 2020-02-07 22:22:00 Josr [facility] ([id number])(TOTAL Medical Branch CHOLESTEROL, TRIGLYCERIDES, HDL) CT ABDOMEN PELVIS W 2020-02-07 21:28:58 Travis [facility] CONTRAST [facility] CT CHEST PULMONARY 2020-02-07 21:28:58 Travis Angelo [facility] ANGIOGRAM [facility] Branch XR CHEST 1 VW 2020-02-07 20:36:[address] [facility] [place] POCT TEST 2020-02-07 20:03:00 Angelo Robles [facility] URINALYSIS 2020-02-07 20:02:00 Travis Angelo [facility] LIPASE 2020-02-07 19:58:[address] [facility] [place] TROPONIN I 2020-02-07 [facility]:58:[facility] 2020-02-07 19:58:00 Angelo Robles [facility] ([id number]) (ALB,T.PRO,BILI [facility] Branch T,BU/BC,ALT,AST,ALK PHOS) BASIC METABOLIC PANEL 2020-02-07 19:58:00 Angelo Robles [facility] (NA, K, CL, CO2, Medical Branch GLUCOSE, BUN, CREATININE, CA) CBC WITH DIFF 2020-02-07 19:58:[address] [facility] [place] PROTHROMBIN TIME / INR 2020-02-07 19:58:00 Angelo Robles [facility] ACTIVATED PARTIAL 2020-02-07 19:58:00 Travis [facility] THRMPLAS GLORY [facility] N-TERMINAL PRO-BNP 2020-02-07 19:58:00 Travis Angelo [facility] HB ECG ROUTINE & RHYTHM 2020-02-07 19:51:07 Angelo Robles [facility] Medical Branch CONSENT/REFUSAL FOR 2020-02-07 19:42:57 Doctor Unassigned, No [facility] [place] DIAGNOSIS AND TREATMENT Name Medical Branch CT ABDOMEN PELVIS W 2020-01-24 23:32:59 Mark Armijo [facility] CONTRAST Medical Branch POCT TEST 2020-01-24 23:22:00 Mark Armijo [facility] Medical Branch LIPASE 2020-01-24 22:41:00 Mark Armijo [facility] o [facility] COMP. METABOLIC PANEL 2020-01-24 22:41:00 Mark Armijo [facility] ([id number]) Medical Branch CBC WITH DIFF 2020-01-24 22:41:00 Armijo, [facility] URINALYSIS 2020-01-24 22:41:00 [place] [facility] NOTICE OF PRIVACY 2020-01-24 22:03:28 Doctor Unassigned, No [facility] PRACTICES Name Medical Branch CONSENT/REFUSAL FOR 2020-01-24 22:03:15 Doctor Unassigned, No [facility] [place] DIAGNOSIS AND TREATMENT Name Medical Branch CT ABDOMEN PELVIS W 2019-06-02 18:46:40 Candido Ramirez [facility] POCT TEST 2019-06-02 17:48:00 Candido Ramirez [facility] LIPASE 2019-06-02 17:47:00 Candido Ramirez [facility] COMP. METABOLIC PANEL 2019-06-02 17:47:00 Candido Ramirez [facility] ([id number]) Medical Branch CBC WITH DIFFERENTIAL 2019-06-02 17:47:00 Candido Ramirez [facility] URINALYSIS 2019-06-02 17:47:00 Candido Ramirez [facility] CONSENT/REFUSAL FOR 2019-06-02 17:08:56 Doctor Unassigned, No [facility] [place] DIAGNOSIS AND TREATMENT Name Medical Branch Gi Tract Capsule 2017-11-10 00:00:00 [facility] Plan of Care Planned Activity Planned Date Details Comments Source Future Scheduled 2022-10-[address] [facility] Test 00:00:00 [facility] Scre[facility] (12+) [code = Tobacco Cessation Counseling and Screening (12+)] Future Scheduled 2022-10-[address] [facility] Test 00:00:00 [facility] Screening (12+) [code = Tobacco Cessation Counseling and Screening (12+)] Future Scheduled 2021-12-[address] [facility] Test 00:00:00 (#1) [code = [facility] Center INFLUENZA VACCINE (#1)] Future Scheduled 2021-12-[address] [facility] Test 00:00:00 (#1) [code = [facility] INFLUENZA VACCINE (#1)] Future Scheduled 2021-04-[address] [facility] Test 00:00:00 (12+) [code = [facility] DEPRESSION SCREENING (12+)] Future Scheduled 2021-04-[address] [facility] Test 00:00:00 (12+) [code = [facility] DEPRESSION SCREENING (12+)] Future Scheduled [address] [facility] 00:[facility]:00 malignant neoplasm of Medica l Center cervix (procedure) [code = 054291888] Future Scheduled [address] [facility] Test 00:00:00 malignant neoplasm of Medica l Center cervix (procedure) [code = 794870003] Future Scheduled [address] [facility] Test 00:00:00 (procedure) [code = [facility] [id number]] Future Scheduled [address] [facility] Test 00:00:00 (procedure) [code = [facility] [id number]] Future Scheduled 1999-10-09 DTAP/TDAP/TD VACCINES [facility] 00:00:00 (1 - Tdap) [code = Medical C enter DTAP/TDAP/TD VACCINES (1 - Tdap)] Future Scheduled 1999-10-09 DTAP/TDAP/TD VACCINES [facility] Test 00:00:00 (1 - Tdap) [code = Medical C enter DTAP/TDAP/TD VACCINES (1 - Tdap)] Future Scheduled 1998 HEPATITIS C [facility]CRE[facility]ING [facility] 00:00:00 [code = HEPATITIS C Medical Center SCREENING] Future Scheduled 1998 HEPATITIS C [facility] 00:00:00 [code = HEPATITIS C Medical Center SCREENING] Future Scheduled 1981-04-09 COVID-19 VACCINE (#1) [facility] 00:00:00 [code = COVID-[address] VACCINE (#1)] Future Scheduled 1981-04-09 COVID-19 VACCINE (#1) [facility] 00:00:00 [code = COVID-[address] VACCINE (#1)] Encounters Start End Encounter Admission Attending Care Care Encounter Source Date/Time Date/Time Type Type Clinicians Facility Department ID 2021-02-10 Emergency [facility] [id number] Univers 12:15:04 ity [facility] 2021-02-09 Emergency [facility] [id number] Univers [facility] Emergency [facility] [id number] Univers 01:23:23 ity [facility] 2021-02-08 Emergency [facility] [id number] Univers 22:46[facility]53 [facility] 2021-10-15 2021-10-15 Emergency Rice, [facility] [id number] 14:24:00 17:37:00 [facility] 2021-10-15 2021-10-15 Emergency Rice, [facility] [id number] 14:24:00 17:37:00 [facility] 2021-10-15 2021-10-15 Emergency ER RICE, [facility] Emergency [id number] SLS 14:24:00 17:37:00 BAYAMON 2021-10-15 2021-10-15 Travel [facility] [id number] [facility] 00:00:00 [facility] 2021-10-15 2021-10-15 Travel [facility] [id number] [facility] 00:[facility] 00:[facility]00 [facility] 2021-08-13 2021-08-13 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 Luis, Adc Lab Main [facility] 1.2.8 40.114 [id number] Univers 12:15:00 12:30:00 Visit Ariel BrittKALEIGH [id number] 0 ity [facility] [id number] [id number] [address] 2021-08-13 2021-08-13 [facility] [id number] Univers 12:15:00 12:15:00 ARIEL itgraciela [facility] 2021-08-13 2021-08-13 Orders Doctor LUÍS [id number] Univers 00:00:00 00:00:00 Only Unassigned, SHARON [id number] ity of [place] [facility] [id number] Craig as [phone] [address] 2021-07-16 2021-07-16 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 Luis, Adc Lab Main [facility] 1.2.8 40.114 [id number] Univers 09:30:00 09:45:00 Visit Brittany Paul HERNANDEZ [id number] ity [facility] [id number] [phone] [address] 2021-07-16 2021-07-16 Outpatient [facility] [id number] Univers 09:30:00 09:30:00 PAUL feliciano [facility] 2021-07-16 2021-07-16 Orders Doctor STALEY 1.2.840.114 [id number] Univers 00:00:00 00:00:00 Only Unassigned, SHARON [id number] ity of [place] [facility] [id number] Craig as [phone] [address] 2021-06-18 2021-06-18 [facility]patient [facility] [id number] Univers 08:45:00 10:27:48 PAUL feliciano [facility] 2021-06-18 2021-06-18 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 Luis, Adc Lab Main [facility] 1.2.8 40.114 [id number] Univers 08:45:00 09:00:00 Visit Paul Sams [id number] ity of [id number] [id number] Vt dical NAL [address] [facility] 2021-06-18 2021-06-18 Orders Doctor LUÍS [id number] Univers 00:00:00 00:00:00 Only Unassigned, SHARON [id number] ity of [place] [facility] [id number] Craig as [phone] [facility] riky 009 Branch 2020-08-24 2020-08-24 Outpatient _RONAL_ PRIV PRIV [id number] [facility] 02:56:00 02:56:00 Ludwin [id number] Medic al 2020-08-24 2020-08-24 Outpatient TAYLOR Pierce PRIV [id number] 00:00:00 00:00:00 Alex [id number] Jay [id number] 2020-08-24 2020-08-24 Alex PRIV [facility] [id number] [facility] 00:00:00 00:00:00 tristan [facility] - Medic darian Pierce GC_LARRY_ MD: [id number]* [place], [address], [place] [address] , Ph. 2020-07-23 2020-07-23 Emergency Lyons, [facility] [id number] Univers 11:40:00 15:16:00 Megan Hernandez [id number] i ty of [id number] [id number] [facility] 084 Branch 2020-07-23 2020-07-23 Emergency Lyons, [facility] 1.2.840.114 [id number] 11:40:00 15:16:00 Megan Vivian [id number] [place] [id number] [place] [id number] [id number] 2020-04-27 2020-04-27 Emergency Levi, [facility] 1.2.840.114 [id number] [facility] 11:25:00 18:21:00 Ann Edis Hernandez [id number] ity of [place] [id number] [facility] [id number] [address] 2020-04-27 2020-04-27 [facility] 1.2.840.114 [id number] 11:25:00 18:21:00 Ann Edis Hernandez [id number] [place] [id number] [place] [id number] [facility] 2020-02-07 2020-02-08 Emergency Angelo Robles [facility] 1.2.840. 114 [id number] [facility] 14:46:00 14:26:00 Naun Bush 350.1.13.10 ity of [place] 4.2.7.[address] [place] [phone] 2020-02-07 2020-02-08 Emergency Angelo Robles [facility] 1.2.840. 114 [id number] 14:46:00 14:26:00 Naun Bush 350.1.13.10 [place] 4.2.7.2.686 [place] [phone] [facility] 2020-01-24 2020-01-24 [facility] 1.2.026.724 [id number] [facility] 17:12:00 21:15:00 Mark Hernandez 350.1.13.10 i ty of [place] 4.2.7.[address] [place] [phone] 2020-01-24 2020-01-[address] [facility] 1.2.093.531 [id number] 17:12:00 21:15:00 Mark Hernandez 350.1.13.10 [place] 4.2.7.2.686 [place] [phone] [facility] 2020-01-24 2020-01-24 Orders Doctor LUÍS 1.2.840.114 [id number] [facility] 00:00:00 00:00:00 Only Unassigned, SHARON 350.1.13.10 ity of [place] [facility] 4.2.7.2.686 [place] [phone] [facility] [address] 2020-01-24 2020-01-24 Orders Doctor LUÍS 1.2.840.114 [id number] 00:00:00 00:00:00 Only Unassigned, SHARON 350.1.13.10 [place] [facility] 4.2.7.2.686 [phone] 009 2019-06-02 2019-06-02 Emergency [facility] 1.2.840.114 [id number] Univers 11:18:34 14:43:00 Candido B Edward 350.1.13.10 i ty [facility] 4.2.7.2.686 [facility] [place] [phone] [facility] [address] 2019-06-02 2019-06-02 Emergency [facility] [id number] Univers 11:18:34 14:43:00 CANDIDO ity of [facility] 2019-06-02 2019-06-02 Emergency [facility] 1.2.840.114 [id number] 11:18:34 14:43:00 Candido B Edward 350.1.13.[address]686 [place] [phone] 084 Results Test Test Test Results Result Source Description Time Comments Comments CT, BRAIN, 2021-10 Unlisted WITHOUT -05 Reason for CONTRAST 12:56:0 Exam - [facility] 0 Click Yes CENTERName: VIC JAMES [...] TORSION -12 torsion. Small suspected [facility] 19:26:2 fundal uterine fibroid versus Branch 5 [...] of PELVIS W -12 radiographic findings to [place] [employer] CONTRAST 17:59:0 explain patient's pain in the [...] PELVISLiver: Hepatic dome is not fully within nqjqu-ah-hwso. Mild focal fattyinfiltration at the falciform ligament. [...] PELVISLiver: Hepatic dome is not fully within nwnst-ah-icvg. Mild focal fattyinfiltration at the falciform ligament. [...] Interpretation Comme nts NA (test code = 1979233659) 139 mmol/L 135-145 K (test code = 5762440036) 3.9 mmol/L 3.5-5.0 CL (test code = 2644998614) 102 mmol/L 98-108 CO2 TOTAL (test code = 29 mmol/L 23-31 1011061649) AGAP (test code = 7347025275) 2-16 BUN (test code = 5253944936) 13 mg/dL 7-23 GLUCOSE (test code = 3201014776) 98 mg/dL 70-110 CREATININE (test code = 0.76 mg/dL 0.50-1.04 7013187995) CALCIUM (test code = 2786935575) 9.5 mg/dL 8.6-10.6 eGFR (test code = 6347513858) mL/min/1.73m2 JOSH (test code = JOSH) Association [...] or urine or abnormalities in imaging tests). [facility] (ALB, T.PRO, BILI T, BU/BC, ALT, AST, ALK PHOS)2020-07-23 17:09:38 Test Item Value Reference Range Interpretation Comments TOTAL BILI (test code = 0876822092) 0.4 mg/dL 0.1-1.1 BILI UNCON (test code = 8013845620) 0.2 mg/dL 0.1-1.1 BILI CONJ (test code = 2987456397) 0.0 mg/dL 0.0-0.3 T PROTEIN (test code = 3994071810) 6.9 g/dL 6.3-8.2 ALBUMIN (test code = 5166759740) 4.3 g/dL 3.5-5.0 ALK PHOS (test code = 9876342452) 113 U/L 34-122 ALTv (test code = 1742-6) 13 U/L 5-35 AST(SGOT) (test code = 4607955061) 29 U/L 13-40 Lab Interpretation (test code = Normal 38889-4) [facility] HospitalUrinalysis2021-04-12 17:03:52 Test Item Value Reference Range Interpretation Comments APPEARANCE (test code = Clear Clear 2396012559) COLOR (test code = Straw Yellow A 2162876009) PH (test code = 4.8-8.0 3388615566) SP GRAVITY (test code = 1.003-1.030 4199636585) GLU U QUAL (test code = Normal Normal 6203298323) BLOOD (test code = Negative Negative 9751091866) KETONES (test code = Negative Negative 4775088439) PROTEIN (test code = Negative Negative 2887-8) UROBILIN (test code = Normal Normal 5132392673) BILIRUBIN (test code = Negative Negative 6063500464) NITRITE (test code = Negative Negative 9964947018) LEUK ROXANE (test code = 25/uL Negative A 6354645829) RBC/HPF (test code = See_Comment [Autom ated message] 4272426469) The system [employer] generated this result transmitted ref erence range: 0 - 3 HP F. The reference range was not used to int erpret this result as normal/abnormal . WBC/HPF (test code = See_Comment [Autom ated message] 4043153398) The system [employer] generated this result transmitted ref erence range: 0 - 5 HP F. The reference range was not used to int erpret this result as normal/abnormal . BACTERIA (test code = Few Negative A 7755617628) SQ EPITH (test code = HPF 4077691024) Lab Interpretation (test Abnormal code = 48120-2) [facility] with Ywblbdtgelrj3381-31-74 16:55:13 Test Item Value Reference Range Interpretation [...] RDW-SD (test code = 42.4 fL 39.0-49.9 02854-1) RDW-CV (test code = 12.9 % 12.0-15.5 788-0) PLT (test code = See_Comment [Automated 777-3) message] The sy stem which generated this result transmitted reference range : 166 - 358 10*3/ ?L. The reference r susan was not used to interpret this result as normal/abnormal . MPV (test code = 11.5 fL 9.5-12.9 62786-3) NRBC/100 WBC (test See_Comment [Automat ed code = 4191248056) message] The system which generated this result transmitted reference range : 0.0 - 10.0 /100 WBCs. The refer ence range was not u sed to interpret th is result as normal/abnormal . NRBC x10^3 (test code <0.01 See_Comment [Auto mated = 3433320197) message] The s ystem which generated this result transmitted reference range : 10*3/?L. The reference range was not used to interpret this result as normal/abnormal . GRAN MAT (NEUT) % 65.4 % (test code = 770-8) IMM GRAN % (test code 0.40 % = 1225213737) LYMPH % (test code = 24.9 % 736-9) MONO % (test code = 7.7 % 5905-5) EOS % (test code = 1.1 % 713-8) BASO % (test code = 0.5 % 706-2) GRAN MAT x10^3(ANC) 7.44 10*3/uL 1.88-7.09 H (test code = 4001949837) IMM GRAN x10^3 (test 0.05 10*3/uL 0.00-0.06 code = 1395834128) LYMPH x10^3 (test code 2.83 10*3/uL 1.32-3.29 = 731-0) MONO x10^3 (test code 0.88 10*3/uL 0.33-0.92 = 742-7) EOS x10^3 (test code = 0.12 10*3/uL 0.03-0.39 711-2) BASO x10^3 (test code 0.06 10*3/uL 0.01-0.07 = 704-7) Lab Interpretation Abnormal (test code = 59311-5) [facility] Fkbt5380-61-44 16:48:00 Test Item Value Reference Range Interpretation Comments POCT PREG (test code = 1605) negative On board controls acceptable with C present Line (test code = 3574) Lab Interpretation (test code = Normal 74181-5) [facility] HospitalCT Head W/O Hgcglgnw0024-58-39 19:42:08 No acute intracranial abnormality. CT HEAD [...] and mastoidair cells are clear.IMPRESSIONNo acute intracranial abnormality.[facility] HospitalTroponin I 2020-04-27 19:09:00 Test Item Value Reference Range Interpretation Comments TROPONIN I (test <0.012 See_Comment [Automated code = 9128987852) message] The system which generated this result [...] ? Lab Interpretation Normal (test code = 43323-2) [facility] (NA, K, CL, CO2, GLUCOSE, BUN, CREATININE, CA)2020-04-27 18:58:00 Test Item Value Reference Range Interpretation Comments NA (test code = 139 mmol/L 135-145 1065200985) K (test code = 4.1 mmol/L 3.5-5 7294724003) CL (test code = 98 mmol/L 98-108 3935609395) CO2 TOTAL (test code = 32 mmol/L 23-31 H 3633358754) AGAP (test code = 2-16 1247885786) BUN (test code = 11 mg/dL 7-23 9097609431) GLUCOSE (test code = 86 mg/dL 70-110 9817602348) CREATININE (test code = 0.78 mg/dL 0.5-1.04 4464074096) CALCIUM (test code = 10.2 mg/dL 8.6-10.6 2378312694) eGFR Calculation mL/min/1.73m2 (Non-) (test code = 8618820432) eGFR Calculation mL/min/1.73m2 () (test code = 6243799962) JOSH (test code = JOSH) Association of [...] tests). Lab Interpretation Abnormal (test code = 38859-5) [facility] with Bsnlmtcyuded2625-77-65 18:54:00 Test Item Value Reference Range Interpretation Comments WBC (test code = See_Comment [Automated 4261-2) message] The sy stem which generated this result transmitted reference range : 4.30 - 11.10 10*3/?L. The reference range was not used to interpret this result as normal/abnormal . RBC (test code = See_Comment [Automated 201-8) message] The sy stem which generated this [...] RDW-SD (test code = 42.5 fL 39-49.9 89147-1) RDW-CV (test code = 12.8 % 12-15.5 788-0) PLT (test code = See_Comment [Automated 777-3) message] The sy stem which generated this result transmitted reference range : 166 - 358 10*3/ ?L. The reference r susan was not used to interpret this result as normal/abnormal . MPV (test code = 11.9 fL 9.5-12.9 50010-6) NRBC/100 WBC (test See_Comment [Automat ed code = 5602890897) message] The system which generated this result transmitted reference range : 0.0 - 10.0 /100 WBCs. The refer ence range was not u sed to interpret th is result as normal/abnormal . NRBC x10^3 (test code <0.01 See_Comment [Auto mated = 6893603927) message] The s ystem which generated this result transmitted reference range : 10*3/?L. The reference range was not used to interpret this result as normal/abnormal . GRAN MAT (NEUT) % 62.6 % (test code = 770-8) IMM GRAN % (test code 0.20 % = 4995957945) LYMPH % (test code = 26.7 % 736-9) MONO % (test code = 9.0 % 5905-5) EOS % (test code = 1.1 % 713-8) BASO % (test code = 0.4 % 706-2) GRAN MAT x10^3(ANC) 5.07 10*3/uL 1.88-7.09 (test code = 8087744273) IMM GRAN x10^3 (test <0.03 0-0.06 code = 5176537296) LYMPH x10^3 (test code 2.16 10*3/uL 1.32-3.29 = 731-0) MONO x10^3 (test code 0.73 10*3/uL 0.33-0.92 = 742-7) EOS x10^3 (test code = 0.09 10*3/uL 0.03-0.39 711-2) BASO x10^3 (test code 0.03 10*3/uL 0.01-0.07 = 704-7) Lab Interpretation Abnormal (test code = 23220-2) [facility] HospitalTramandan [id number] 11:05:00 Test Item Value Reference Range Interpretation Comments TROPONIN I (test <0.012 See_Comment [Automated code = 1474202495) message] The system which generated this result [...] ? Lab Interpretation Normal (test code = 57148-7) [facility] HospitalBasi Metabolic Panel (NA, K, CL, CO2, GLUCOSE, BUN, CREATININE, CA)2020-02-08 10:55:00 Test Item Value Reference Range Interpretation Comments NA (test code = 138 mmol/L 135-145 5299324141) K (test code = 4.1 mmol/L 3.5-5 8223776050) CL (test code = 104 mmol/L 98-108 2818317345) CO2 TOTAL (test code = 26 mmol/L 23-31 5748035999) AGAP (test code = 2-16 7539042538) BUN (test code = 14 mg/dL 7-23 3611421110) GLUCOSE (test code = 94 mg/dL 70-110 5490195082) CREATININE (test code 0.91 mg/dL 0.5-1.04 = 6651297614) CALCIUM (test code = 9.0 mg/dL 8.6-10.6 0205153357) eGFR Calculation mL/min/1.73m2 (Non-) (test code = 4212228351) eGFR Calculation mL/min/1.73m2 () (test code = 9038443318) JOSH (test code = JOSH) Association of [...] or urine or abnormalities in imaging tests). [facility] with Rvwzsexenbqw6560-42-08 10:26:00 Test Item Value Reference Range Interpretation Comments WBC (test code = See_Comment [Automated message] 6690-2) The system [employer] generated this result transmitted ref erence range: 4.30 - 1 1.10 10*3/?L. The re ference range was not u sed to interpret this result as normal/abnor mal. RBC (test code = See_Comment [Automated message] 889-8) The system [employer] generated this result transmitted ref erence range: [...] RDW-SD (test code 45.3 fL 39-49.9 = 81604-3) RDW-CV (test code 13.4 % 12-15.5 = 788-0) PLT (test code = See_Comment [Automated message] 267-3) The system [employer] generated this result transmitted ref erence range: 166 - 35 8 10*3/?L. The re ference range was not u sed to interpret this result as normal/abnor mal. MPV (test code = 11.9 fL 9.5-12.9 86538-9) NRBC/100 WBC (test See_Comment [Automat ed message] code = 8399905096) The syste [employer] which generated this result transmitted ref erence range: 0.0 - 10 .0 /100 WBCs. The refer ence range was not u sed to interpret this result as normal/abnor mal. NRBC x10^3 (test <0.01 See_Comment [Automated message] code = 1641601690) The syste m which generated this result transmitted ref erence range: 10*3/?L. The reference range was not used to interpr et this result as normal/abnormal . GRAN MAT (NEUT) % 63.9 % (test code = 770-8) IMM GRAN % (test 0.40 % code = 5088115888) LYMPH % (test code 26.9 % = 736-9) MONO % (test code 6.7 % = 5905-5) EOS % (test code = 1.6 % 713-8) BASO % (test code 0.5 % = 706-2) GRAN MAT 4.94 10*3/uL 1.88-7.09 x10^3(ANC) (test code = 6102560180) IMM GRAN x10^3 0.03 10*3/uL 0-0.06 (test code = 3211660774) LYMPH x10^3 (test 2.08 10*3/uL 1.32-3.29 code = 731-0) MONO x10^3 (test 0.52 10*3/uL 0.33-0.92 code = 742-7) EOS x10^3 (test 0.12 10*3/uL 0.03-0.39 code = 711-2) BASO x10^3 (test 0.04 10*3/uL 0.01-0.07 code = 704-7) [facility] [id number] 05:34:00 Test Item Value Reference Range Interpretation Comments TROPONIN I (test <0.012 See_Comment [Automated code = 3325333249) message] The system which generated this result [...] ? Lab Interpretation Normal (test code = 86951-7) [facility] HospitalThyroid Stimulating Hormone (TSH)2020-02-08 02:02:00 Test Item Value Reference Range Interpretation Comments TSH (test code = See_Comment [Automated message] 6092919825) The system [employer] generated this result transmitted ref erence range: 0.45 - 4 .70 mIU/L. The refe rence range was not u sed to interpret this result as normal/abnor mal. Lab Interpretation (test Normal code = 67936-3) [facility] HospitalMagnesium Fbvwn1350-18-22 01:31:00 Test Item Value Reference Range Interpretation Comments MAGNESIUM (test code = 0538336621) 2.1 mg/dL 1.7-2.4 Lab Interpretation (test code = Normal 84806-5) [facility] HospitalLipid Panel (Total Cholesterol, Triglycerides, HDL)2020-02-08 01:31:00 Test Item Value Reference Range Interpretation Comments CHOL (test code = 220 mg/dL 120-200 H 5270318608) HDL (test code = 44 mg/dL >50 L 8549457606) HDLC RATIO (test code = See_Comment H [Au tomated message] 4046146623) The system [employer] generated this result transmit alistair reference range : <=4.5. The refe rence range was not u sed to interpret th is result as normal/abnormal . TRIG (test code = 179 mg/dL 30-170 H 4509675676) LDL CHOL (test code = 140 mg/dL See_Comment [Auto mated message] 41892-5) The system [employer] generated this result transmit alistair reference range : <=160. The refe rence range was not u sed to interpret th is result as normal/abnormal . VLDL (test code = 36 mg/dL 5-60 1646877929) Lab Interpretation (test Abnormal code = 45295-4) [facility] HospitalCOVID-19 (ID NOW RAPID TESTING)2020-02-07 23:26:00 Test Item Value Reference Range Interpretation Comments SARS-CoV-2 Rapid ID NOW Not Detected Not Detected (test code = 91903-2) JOSH (test code = JOSH) ID NOW COVID-19 Assay is an isothermal nucleic acid amplification test intended for the qualitative detection of nucleic acid from SARS-CoV-2 viral RNA in nasopharyngeal (EDUCATIONAL TECHNOLOGY SPECIALIST) specimens. It is used under Emergency Use [...] indicated. Lab Interpretation Normal (test code = 31917-1) [facility] HospitalTROPONIN [id number] 22:52:00 Test Item Value Reference Range Interpretation Comments TROPONIN I (test <0.012 See_Comment [Automated code = 3054628524) message] The system which generated this result [...] ? Lab Interpretation Normal (test code = 39210-0) [facility] HospitalCT ABDOMEN PELVIS W PEVLXIEC6611-37-51 21:53:30CT Abdomen and Pelvis with intravenous contrast. [...] Unremarkable.CONCLUSION: No acute intra-abdominal or pelvic abnormalities detected.[facility] CHEST PULMONARY PJLSVGLHQ4370-49-03 21:48:38 No acute or chronic pulmonary embolus up to the segmental level. Preliminary Report Dictated by Resident: Radha Cee MD., have reviewed this study and agree [...] reviewed this study and agree with theabove report.[facility] HospitalUrinalysis2020-10-27 20:52:00 Test Item Value Reference Range Interpretation Comments APPEARANCE (test code = Clear Clear 1026708668) COLOR (test code = Straw Yellow A 2227575795) PH (test code = 4.8-8.0 0811949902) SP GRAVITY (test code = 1.003-1.030 4047783241) GLU U QUAL (test code = Normal Normal 3688989657) BLOOD (test code = Negative Negative 4927394658) KETONES (test code = Negative Negative 1787494982) PROTEIN (test code = Negative Negative 2887-8) UROBILIN (test code = Normal Normal 5433210451) BILIRUBIN (test code = Negative Negative 4152575122) NITRITE (test code = Negative Negative 9681247676) LEUK ROXANE (test code = Negative Negative 8844299594) RBC/HPF (test code = See_Comment [Autom ated message] 3693060037) The system [employer] generated this result transmitted ref erence range: 0 - 3 HP F. The reference range was not used to int erpret this result as normal/abnormal . WBC/HPF (test code = See_Comment [Autom ated message] 7015276913) The system [employer] generated this result transmitted ref erence range: 0 - 5 HP F. The reference range was not used to int erpret this result as normal/abnormal . BACTERIA (test code = Few Negative A 2205014019) MUCOUS (test code = Slight Negative LPF A 9981995290) SQ EPITH (test code = HPF 4108525558) Lab Interpretation (test Abnormal code = 67323-7) [facility] 1 [id number] 20:38:53HISTORY: Chest pain. TECHNIQUE: Portable AP erect [...] CONCLUSIONS: No signs of acute cardiopulmonary disease. [facility] [id number] 20:36:00 Test Item Value Reference Range Interpretation Comments TROPONIN I (test <0.012 See_Comment [Automated code = 9220293131) message] The system which generated this result [...] ? Lab Interpretation Normal (test code = 10454-8) [facility] HospitalN-TERMINAL OUK-FDH8936-07-27 20:33:00 Test Item Value Reference Range Interpretation Comments NT-proBNP (test code 53 pg/mL See_Comment [Autom ated = 5216662295) message] The system which generated this result transmitted reference range : <=125. The reference range was not used to interpret this result as normal/abnormal . JOSH (test code = JOSH) Biotin has been reported to cause a negative bias, interpret results relative to patient's use of biotin. Lab Interpretation Normal (test code = 17416-4) [facility] HospitalaPTT2020-10-27 20:29:00 Test Item Value Reference Range Interpretation Comments APTT Patient (test See_Comment [Automat ed code = 3173-2) message] The system which generated this result transmitted reference range : 23 - 38 Seconds . The reference range was not used to interpr et this result as normal/abnormal . JOSH (test code = JOSH) The [facility] patient population mean normal value for aPTT is 30 seconds. Lab Interpretation Normal (test code = 37443-8) [facility] HospitalProthrombin Time (PT) / [id number] 20:27:00 Test Item Value Reference Range Interpretation [...] tions. Lab Interpretation (test Normal code = 93915-7) [facility]Bab[facility] Metabolic Panel (NA, K, CL, CO2, GLUCOSE, BUN, CREATININE, CA)2020-02-07 20:24:00 Test Item Value Reference Range Interpretation Comments NA (test code = 138 mmol/L 135-145 1396703497) K (test code = 3.9 mmol/L 3.5-5 0440232199) CL (test code = 98 mmol/L 98-108 5705586839) CO2 TOTAL (test code = 32 mmol/L 23-31 H 5231336971) AGAP (test code = 2-16 1983719846) BUN (test code = 13 mg/dL 7-23 5958140286) GLUCOSE (test code = 103 mg/dL 70-110 9728444032) CREATININE (test code = 1.33 mg/dL 0.5-1.04 H 7781598067) CALCIUM (test code = 10.0 mg/dL 8.6-10.6 1357990070) eGFR Calculation mL/min/1.73m2 (Non-) (test code = 0695323211) eGFR Calculation mL/min/1.73m2 () (test code = 3786214058) JOSH (test code = JOSH) Association of [...] tests). Lab Interpretation Abnormal (test code = 88567-1) [facility] HospitalHepatic Function Panel (ALB, T.PRO, BILI T, BU/BC, ALT, AST, ALK PHOS)2020-02-07 20:24:00 Test Item Value Reference Range Interpretation Comments TOTAL BILI (test code = 1897794375) 0.4 mg/dL 0.1-1.1 BILI UNCON (test code = 8579437001) 0.3 mg/dL 0.1-1.1 BILI CONJ (test code = 1629287538) 0.0 mg/dL 0-0.3 T PROTEIN (test code = 9730491157) 7.4 g/dL 6.3-8.2 ALBUMIN (test code = 0764120173) 4.4 g/dL 3.5-5 ALK PHOS (test code = 5958035092) 99 U/L 34-122 ALTv (test code = 1742-6) 16 U/L 5-35 AST(SGOT) (test code = 9842901568) 19 U/L 13-40 Lab Interpretation (test code = Normal 39337-6) [facility] HospitalLipase [id number] 20:24:00 Test Item Value Reference Range Interpretation Comments LIPASE (test code = 5503840770) 393 U/L 0-220 H Lab Interpretation (test code = Abnormal 46370-4) [facility] HospitalCBC with Tucmghmolcci1430-85-48 20:19:00 Test Item Value Reference Range Interpretation Comments WBC (test code = See_Comment [Automated message] 6690-2) The system [employer] generated this result transmitted ref erence range: 4.30 - 1 1.10 10*3/?L. The re ference range was not u sed to interpret this result as normal/abnor mal. RBC (test code = See_Comment [Automated message] 789-8) The system whic h generated this result [...] RDW-SD (test code 43.5 fL 39-49.9 = 06382-9) RDW-CV (test code 13.2 % 12-15.5 = 788-0) PLT (test code = See_Comment [Automated message] 777-3) The system [employer] generated this result transmitted ref erence range: 166 - 35 8 10*3/?L. The re ference range was not u sed to interpret this result as normal/abnor mal. MPV (test code = 12.1 fL 9.5-12.9 50158-2) NRBC/100 WBC (test See_Comment [Automat ed message] code = 4864502731) The syste m which generated this result transmitted ref erence range: 0.0 - 10 .0 /100 WBCs. The refer ence range was not u sed to interpret this result as normal/abnor mal. NRBC x10^3 (test <0.01 See_Comment [Automated message] code = 8148366011) The syste m which generated this result transmitted ref erence range: 10*3/?L. The reference range was not used to interpr et this result as normal/abnormal . GRAN MAT (NEUT) % 62.9 % (test code = 770-8) IMM GRAN % (test 0.50 % code = 6512411488) LYMPH % (test code 26.9 % = 736-9) MONO % (test code 7.8 % = 5905-5) EOS % (test code = 1.2 % 713-8) BASO % (test code 0.7 % = 706-2) GRAN MAT 6.08 10*3/uL 1.88-7.09 x10^3(ANC) (test code = 1399252249) IMM GRAN x10^3 0.05 10*3/uL 0-0.06 (test code = 3388370726) LYMPH x10^3 (test 2.61 10*3/uL 1.32-3.29 code = 731-0) MONO x10^3 (test 0.76 10*3/uL 0.33-0.92 code = 742-7) EOS x10^3 (test 0.12 10*3/uL 0.03-0.39 code = 711-2) BASO x10^3 (test 0.07 10*3/uL 0.01-0.07 code = 704-7) [facility] HospitalPOIN Mnqr7250-13-21 20:03:00 Test Item Value Reference Range Interpretation Comments POCT PREG (test code = 1605) Negative On board controls acceptable with Present C Line (test code = 3574) POCT PREG LOT # (test code = 3575) [id number] POCT PREG TEST DATE (test 07/11/2021 code = 3576) Lab Interpretation (test code = Normal 28399-6) [facility] ABDOMEN PELVIS W GOLLVWGS6172-09-14 00:58:03Impression: 1. Bilateral pyelonephritis.2. Mild right renal [...] cortical scarring.3. Mild hepatomegaly.RL: 460End of Report [facility]PO[facility] 2020-01-24 23:22:00 Test Item Value Reference Range Interpretation Comments POCT PREG (test code = 1605) negative On board controls acceptable with present C Line (test code = 3574) POCT PREG LOT # (test code = 3575) [id number] POCT PREG TEST DATE (test 2020-11-10 code = 3576) Lab Interpretation (test code = Normal 11825-7) [facility]00 Test Item Value Reference Range Interpretation Comments APPEARANCE (test code = Hazy Clear A 4817873474) COLOR (test code = Yellow Yellow 9180746598) PH (test code = 4.8-8.0 6643089255) SP GRAVITY (test code = 1.003-1.030 8735970123) GLU U QUAL (test code = Normal Normal 9189786374) BLOOD (test code = Negative Negative 1888142732) KETONES (test code = Negative Negative 0548635688) PROTEIN (test code = Negative Negative 2887-8) UROBILIN (test code = Normal Normal 7691884420) BILIRUBIN (test code = Negative Negative 8728135633) NITRITE (test code = Negative Negative 9165883391) LEUK ROXANE (test code = 250/uL Negative A 5548279311) RBC/HPF (test code = See_Comment [Autom ated message] 1065051458) The system [employer] generated this result transmitted ref erence range: 0 - 3 HP F. The reference range was not used to int erpret this result as normal/abnormal . WBC/HPF (test code = See_Comment H [Autom ated message] 1680898555) The system [employer] generated this result transmitted ref erence range: 0 - 5 HP F. The reference range was not used to int erpret this result as normal/abnormal . BACTERIA (test code = Moderate Negative A 8459381044) MUCOUS (test code = Slight Negative LPF A 7567655363) SQ EPITH (test code = HPF 6242573668) Lab Interpretation (test Abnormal code = 44125-5) [facility] (30737)2020-01-24 23:01:00 Test Item Value Reference Range Interpretation Comments NA (test code = 139 mmol/L 135-145 1377137549) K (test code = 4.0 mmol/L 3.5-5 3890771910) CL (test code = 98 mmol/L 98-108 6434098011) CO2 TOTAL (test code = 30 mmol/L 23-31 8618569913) AGAP (test code = 2-16 5456097554) BUN (test code = 13 mg/dL 7-23 1599400305) GLUCOSE (test code = 105 mg/dL 70-110 8400487707) CREATININE (test code 1.00 mg/dL 0.5-1.04 = 2444373047) TOTAL BILI (test code 0.5 mg/dL 0.1-1.1 = 7202632458) CALCIUM (test code = 10.4 mg/dL 8.6-10.6 7092129610) T PROTEIN (test code = 7.7 g/dL 6.3-8.2 4510211847) ALBUMIN (test code = 4.5 g/dL 3.5-5 0849331933) ALK PHOS (test code = 118 U/L 34-122 1523118042) ALTv (test code = 30 U/L 5-35 1742-6) AST(SGOT) (test code = 22 U/L 13-40 6702568821) eGFR Calculation mL/min/1.73m2 (Non-) (test code = 5231294440) eGFR Calculation mL/min/1.73m2 () (test code = 6666234566) JOSH (test code = JOSH) Association of [...] or urine or abnormalities in imaging tests). [facility]:00 Test Item Value Reference Range Interpretation Comments LIPASE (test code = 3684606210) 125 U/L 0-220 Lab Interpretation (test code = Normal 58877-6) [facility] WITH [id number] 22:55:00 Test Item Value Reference Range Interpretation Comments WBC (test code = See_Comment [Automated message] 6690-2) The system [employer] generated this result transmitted ref erence range: 4.30 - 1 1.10 10*3/?L. The re ference range was not u sed to interpret this result as normal/abnor mal. RBC (test code = See_Comment [Automated message] 789-8) The system [employer] generated this result transmitted ref erence range: [...] RDW-SD (test code 43.5 fL 39-49.9 = 01992-1) RDW-CV (test code 13.3 % 12-15.5 = 788-0) PLT (test code = See_Comment [Automated message] 777-3) The system [employer] generated this result transmitted ref erence range: 166 - 35 8 10*3/?L. The re ference range was not u sed to interpret this result as normal/abnor mal. MPV (test code = 11.6 fL 9.5-12.9 62295-0) NRBC/100 WBC (test See_Comment [Automat ed message] code = 2199743792) The [employer] which generated this result transmitted ref erence range: 0.0 - 10 .0 /100 WBCs. The refer ence range was not u sed to interpret this result as normal/abnor mal. NRBC x10^3 (test <0.01 See_Comment [Automated message] code = 9754909015) The syste m which generated this result transmitted ref erence range: 10*3/?L. The reference range was not used to interpr et this result as normal/abnormal . GRAN MAT (NEUT) % 59.7 % (test code = 770-8) IMM GRAN % (test 0.40 % code = 1933955169) LYMPH % (test code 29.5 % = 736-9) MONO % (test code 8.2 % = 5905-5) EOS % (test code = 1.7 % 713-8) BASO % (test code 0.5 % = 706-2) GRAN MAT 5.93 10*3/uL 1.88-7.09 x10^3(ANC) (test code = 6103783681) IMM GRAN x10^3 0.04 10*3/uL 0-0.06 (test code = 9873743435) LYMPH x10^3 (test 2.93 10*3/uL 1.32-3.29 code = 731-0) MONO x10^3 (test 0.81 10*3/uL 0.33-0.92 code = 742-7) EOS x10^3 (test 0.17 10*3/uL 0.03-0.39 code = 711-2) BASO x10^3 (test 0.05 10*3/uL 0.01-0.07 code = 704-7) [facility] [id number] 19:13:50CT Abdomen and Pelvis with intravenous contrast. [...] intrapelvic abnormalities detected.Please see additional comments above. [facility], Radiant Results Inft User - 06/02/2019 1:14 [...] or intrapelvic abnormalities detected.Please see additional comments above.[facility] [id number] 18:13:00 Test Item Value Reference Range Interpretation Comments APPEARANCE (test code = Clear Clear 7907254819) COLOR (test code = Yellow Yellow 2581308301) PH (test code = 4.8-8.0 4880824867) SP GRAVITY (test code = 1.003-1.030 2128673479) GLU U QUAL (test code = Normal Normal 7887890025) BLOOD (test code = Negative Negative 1282137107) KETONES (test code = Negative Negative 6062411595) PROTEIN (test code = Negative Negative 2887-8) UROBILIN (test code = Normal Normal 8114098884) BILIRUBIN (test code = Negative Negative 1901207101) NITRITE (test code = Negative Negative 1287141665) LEUK ROXANE (test code = Negative Negative 5050578574) RBC/HPF (test code = See_Comment [Autom ated message] 3471630176) The system whic h generated this result transmitted ref erence range: 0 - 3 HP F. The reference range was not used to int erpret this result as normal/abnormal . WBC/HPF (test code = See_Comment [Autom ated message] 9075487966) The system [employer] generated this result transmitted ref erence range: 0 - 5 HP F. The reference range was not used to int erpret this result as normal/abnormal . BACTERIA (test code = Negative Negative 5663673496) MUCOUS (test code = Slight Negative LPF A 9306706089) SQ EPITH (test code = HPF 0821672115) Lab Interpretation (test Abnormal code = 15754-2) [facility]. METABOLIC PANEL (13091)2019-06-02 18:09:00 Test Item Value Reference Range Interpretation Comments NA (test code = 138 mmol/L 135-145 9446044364) K (test code = 4.2 mmol/L 3.5-5 1898376021) CL (test code = 102 mmol/L 98-108 3072340344) CO2 TOTAL (test code = 27 mmol/L 23-31 8433359357) AGAP (test code = 2-16 1095503306) BUN (test code = 12 mg/dL 7-23 2049791256) GLUCOSE (test code = 93 mg/dL 70-110 7525898659) CREATININE (test code 0.73 mg/dL 0.5-1.04 = 2812724529) TOTAL BILI (test code 0.4 mg/dL 0.1-1.1 = 2886443402) CALCIUM (test code = 9.5 mg/dL 8.6-10.6 3605880113) T PROTEIN (test code = 7.3 g/dL 6.3-8.2 1940195751) ALBUMIN (test code = 4.6 g/dL 3.5-5 1269252732) ALK PHOS (test code = 84 U/L 34-122 4596532346) ALTv (test code = 12 U/L 5-35 1742-6) AST(SGOT) (test code = 21 U/L 13-40 6309014488) eGFR Calculation mL/min/1.73m2 (Non-) (test code = 7216967497) eGFR Calculation mL/min/1.73m2 () (test code = 3696775436) JOSH (test code = JOSH) Association of [...] or urine or abnormalities in imaging tests). [facility] [id number] 18:09:00 Test Item Value Reference Range Interpretation Comments LIPASE (test code = 8164957963) 108 U/L 0-220 Lab Interpretation (test code = Normal 52227-4) [facility]CBC WITH [id number] 18:01:00 Test Item Value Reference Range Interpretation Comments WBC (test code = See_Comment [Automated message] 6690-2) The system [employer] generated this result transmitted ref erence range: 4.30 - 1 1.10 10*3/?L. The re ference range was not u sed to interpret this result as normal/abnor mal. RBC (test code = See_Comment [Automated message] 789-8) The system whic h generated this result [...] RDW-SD (test code 46.2 fL 39-49.9 = 36206-5) RDW-CV (test code 14.1 % 12-15.5 = 788-0) PLT (test code = See_Comment [Automated message] 777-3) The system [employer] generated this result transmitted ref erence range: 166 - 35 8 10*3/?L. The re ference range was not u sed to interpret this result as normal/abnor mal. MPV (test code = 10.8 fL 9.5-12.9 46325-6) NRBC/100 WBC (test See_Comment [Automat ed message] code = 5780455144) The syste m which generated this result transmitted ref erence range: 0.0 - 10 .0 /100 WBCs. The refer ence range was not u sed to interpret this result as normal/abnor mal. NRBC x10^3 (test <0.01 See_Comment [Automated message] code = 0087298892) The syste m which generated this result transmitted ref erence range: 10*3/?L. The reference range was not used to interpr et this result as normal/abnormal . GRAN MAT (NEUT) % 69.9 % (test code = 770-8) IMM GRAN % (test 0.70 % code = 1062385891) LYMPH % (test code 21.2 % = 736-9) MONO % (test code 6.2 % = 5905-5) EOS % (test code = 1.4 % 713-8) BASO % (test code 0.6 % = 706-2) GRAN MAT 6.08 10*3/uL 1.88-7.09 x10^3(ANC) (test code = 1183388459) IMM GRAN x10^3 0.06 10*3/uL 0-0.06 (test code = 5913253261) LYMPH x10^3 (test 1.84 10*3/uL 1.32-3.29 code = 731-0) MONO x10^3 (test 0.54 10*3/uL 0.33-0.92 code = 742-7) EOS x10^3 (test 0.12 10*3/uL 0.03-0.39 code = 711-2) BASO x10^3 (test 0.05 10*3/uL 0.01-0.07 code = 704-7) [facility] Test, [id number] 17:48:00 Test Item Value Reference Range Interpretation Comments POCT PREG (test code = 1605) negative POCT PREG LOT # (test code = 3575) [id number] POCT PREG TEST DATE (test 11/10/2020 code = 3576) Lab Interpretation (test code = Normal 06202-7) [facility]- XR CHEST 1 [id number] 19:54:00 [facility] 1980 Age[facility]S: 38 / F [address] Unit #: [id number] Loc: [place] [address] Phys: Génesis King MD Acct: [id number] Dis Date: Status: ADM IN PHONE #: [phone] Exam Date: 02/22/20191940 FAX #: Reason: SOB EXAMS: CPT: [id number] XR CHEST 1 V 29019 Fluoro Time: DAP (Gy m2): Air Kerma [...] PAGE 1 Signed Report Name: VIC JAMES [place] : 1980 Age/S: 38 / F [address] #: [id number] Loc: [place] [address] Phys: Génesis King MD Acct: [id number] Dis Date: Status: ADM IN PHONE #: [phone] Exam Date: 02/22/2019 194 FAX #: Reason: SOB EXAMS: CPT: [id number] XR CHEST 1 V 16989 Fluoro Time: DAP (Gy m2): Air Kerma (mGy): (Continued) Technologist: Jordan Chacon, RT(R)(CT) Trnscb Date/Time: 02/22/2019 (1953) BarbieCLW Orig Print D/T: S: 02/22/2019 (1956)PAGE 2 Signed Report- US RETRO [id number] 15:32:00 Name: VIC JAMES [place] : 1980 Age/S: 38 / F [address] Unit #: [id number] Loc: [place] [address] Phys: Génesis King MD Acct: [id number] Dis Date: Status: ADM IN PHONE #: [phone] Exam Date: 02/22/2019 1200 FAX #: Reason: back pain EXAMS: CPT: [id number] US RET[facility] LTD [address] EXAMINATION: - US RETRO LTD. LOCATION: T18. [...] hypoechoic/cystic appearing region in right upper pole renalpelvis, nonspecific. Consider short- term follow-up given history of pyelonephritis and recent CT findings. at 1532 Reported and signed by: Thuan Ricardo M.D. CC: Jordan Jean MD; Cony Partida MD; Génesis King MD Technologist: Nina Andrews, RT(R),IMAN(AB) Trnneb Date/Time: 02/22/2019 (1532) BarbieANS4 PAGE 1 Signed Report Name: VIC JAMES [place] : 1980 Age/S: 38 / F [address] Unit #: [id number] Loc: [place] [address] Phys: Génesis King MD Acct: [id number] Dis Date: Status: ADM IN PHONE #: [phone] Exam Date: 02/22/2019 1200 FAX #: Reason: back pain EXAMS: CPT: [id number] [facility] [address] (Continued) Orig Print D/T: S: 02/22/2019 (1535) Probe: PAGE 2 Signed ReportCBC W/AUTO [id number] 12:09:00 Test Item Value Reference Range Interpretation [...] MDIFF) CONSISTA NT WITH AUTO DIFFERENTIAL. RBC [id number] 12:09:00 Test Item Value Reference Range Interpretation Comments ANISOCYTOSIS (test code = 1+ NONE ANISO) MICROCYTOSIS (test code = 1+ ON SCAN NONE MICR) PLATELET ESTIMATE (test ADEQUATE THOUSAND ADEQUATE code = PLTEST) PLATELET MORPHOLOGY (test NORMAL code = PLTMORPH) CBC W/AUTO [id number] 12:08:00 Test Item Value Reference Range Interpretation [...] = NO DIFF/SCN CRITERIA MDIFF) CBC W/AUTO [id number] 12:08:00 Test Item Value Reference Range Interpretation [...] code = NO DIFF/SCN CRITERIA MDIFF) RBC [id number] 12:08:00 Test Item Value Reference Range Interpretation Comments ANISOCYTOSIS (test code = 1+ NONE ANISO) MICROCYTOSIS (test code = 1+ ON SCAN NONE MICR) PLATELET ESTIMATE (test ADEQUATE THOUSAND ADEQUATE code = PLTEST) PLATELET MORPHOLOGY (test NORMAL code = PLTMORPH) CBC W/AUTO [id number] 12:08:00 Test Item Value Reference Range Interpretation [...] = NO DIFF/SCN CRITERIA MDIFF) BASIC METABOLIC [id number] 07:07:00 Test Item Value Reference Range Interpretation [...] CA) 7.8 MG/DL 8.5-10.1 L CBC W/AUTO [id number] 06:58:00 Test Item Value Reference Range Interpretation [...] ng/mL are obtained. - CT ABD PELVIS [id number] 20:34:00 Name: V[facility] J[facility] : 1980 Age/S: 38 / F [address] [facility] [address] Unit #: [id number] Loc: [place] [address] Phys: Cony Partida MD Acct: [id number] Dis Date: Status: ADM IN PHONE#: [phone] Exam Date: 02/19/20192024 FAX #: Reason: acute PN, possible ureteral stone EXAMS: CPT: [id number] CT ABD PELVIS W/CONT 92222 CT Abdomen and Pelvis with contrast. Location: H9 Clinicalindication: 38-year-old with pyelonephritis and possible ureteral stone. Comparison: None Technique: Computed axial images were obtained from the diaphragms through the pubic symphysis following IV administration of 100 mL Isovue-300. Up to date CT equipment and radiation dose reduction technique wereutilized. Findings: Abdomen: Lung bases are clear. The liver, gallbladder, spleen, adrenal glands, a nd pancreas are without acute abnormality. There is [...] RT(R)(CT) CTDI: DLP: Trnscb Date/Time: 02/19/2019 (2033) tLYR.RB24 Orig Print D/T: S: 02/19/2019 (2036) PAGE 1 Signed ReportUA RFLX MICR CULT IF [id number] 19:43:00 Test Item Value Reference Range Interpretation [...] culture: Flank PainUA RFLX MICR CULT IF [id number] 19:28:00 Test Item Value Reference Range Interpretation [...] LOAN RISES TWO FOLD EVERY 2 DAYS; SUGGEST RECONFIRMING AF TER 2 DAYS. 150,000-2 [address] TRIMESTER 10 ,000 - 50,000 2ND & 3R D TRIMESTER LACTIC [id number] 18:52:00 Test Item Value Reference Range Interpretation Comments LACTIC ACID (test code = LACT) 0.7 mmol/L 0.4-2.0 N CBC W/AUTO [id number] 17:55:00 Test Item Value Reference Range Interpretation [...] MDIFF) CONSISTA NT WITH AUTO DIFFERENTIAL. RBC [id number] 17:55:00 Test Item Value Reference Range Interpretation Comments ANISOCYTOSIS (test code = ANISO) 1+ NONE CBC W/AUTO [id number] 17:54:00 Test Item Value Reference Range Interpretation [...] MANUAL DIFF REQUIRED NO DIFF/SCN CRITERIA SLIDE Judy MASTERSON (test code = MDIFF) CONSISTA NT WITH AUTO DIFFERENTIAL. CBC W/AUTO [id number] 17:54:00 Test Item Value Reference Range Interpretation [...] MANUAL DIFF REQUIRED NO DIFF/SCN CRITERIA SLIDE Judy MASTERSON (test code = MDIFF) CONSISTA NT WITH AUTO DIFFERENTIAL. BASIC METABOLIC [id number] 17:43:00 Test Item Value Reference Range Interpretation [...] Unit/L 84-246 N code = LDH) LACTIC [id number] 17:43:00 Test Item Value Reference Range Interpretation Comments LACTIC ACID (test code = LACT) 0.8 mmol/L 0.4-2.0 N BASIC METABOLIC [id number] 17:36:00 Test Item Value Reference Range Interpretation [...] code Unit/L 84-246 = LDH) CBC W/AUTO [id number] 17:35:00 Test Item Value Reference Range Interpretation [...]
[2022-03-20 12:30] LABS: Absolute Lymphocytes (CBC) 2.3 K/uL (0.7-4.9); Hematocrit 41.3 % (36.0-45.0); MCV 84.6 fL (80-100); MPV 9.1 fL (7.6-11.3); RBC Red Blood Cell Count 4.89 M/uL (3.86-4.86)
[2022-03-20] MEDS ORDERED: ONDANSETRON 4 MG/2 ML VIAL ONE (12:44)
[2022-03-20] MEDS ORDERED: KETOROLAC 30 MG/ML INJ ONE (12:44)
[2022-03-20] MEDS ORDERED: ASPIRIN 81 MG CHEWABLE TABLET ONE (12:50)
[2022-03-20 12:53] LABS: Albumin 3.7 g/dL (3.4-5.0); Bilirubin Direct 0.1 mg/dL (0-0.2); Bilirubin Total 0.3 mg/dL (0.2-1.0); Magnesium 2.4 mg/dL (1.8-2.4); Potassium 3.9 mmol/L (3.5-5.1); Protein, Total 7.2 g/dL (6.4-8.2); Troponin High Sensitivity 3.5 pg/mL (<58.9)
--- NOTE | 2022-03-20 12:57 | RAD REPORT ---
EXAM DESCRIPTION: RAD - Chest Single View - 03/20/2022 12:45 pm CLINICAL HISTORY: CHEST PAIN Chest pain. COMPARISON: Chest Single View dated 02/17/2021; Chest Single View dated 11/19/2020; Chest Single View d ated 05/24/2018; Chest Pa And Lat (2 Views) dated 03/08/2018 FINDINGS: Portable technique limits examination quality. The lungs are grossly clear. The heart is normal in size. No displaced fractures. IMPRESSION: No acute intrathoracic process suspected.
[2022-03-20 13:12] LABS: SARS-COV-2 RT PCR NEGATIVE (NEGATIVE)
--- NOTE | 2022-03-20 13:26 | ER ---
Nurse's Notes [facility] Name: Yohana Reeves Age: 41 yrs Sex: Female : 1980 Arrival Date: 03/20/2022 Time: 11:58 Bed 7 Private MD: Diagnosis: Chest pain, unspecified Presentation: 03/20 12:05 Chief complaint: Patient states: While in ED w/ daughter pt began to experience L sided ph chest pain radiating to L side of neck, describes as "sharp and heavy feeling." Also reports SOB and mild nausea, hx of MT "due to trauma" 18 years ago, also reports hx of anxiety. Coronavirus screen: Vaccine status: Patient reports receiving the 2nd dose of the covid vaccine. Ebola Screen: No symptoms or risks identified at this time. Initial Sepsis Screen: Does the patient meet any 2 criteria? No. Patient's initial sepsis screen is negative. Does the patient have a suspected source of infection? No. Patient's initial sepsis screen is negative. Risk Assessment: Do you want to hurt yourself or someone else? Patient reports no desire to harm self or others. Onset of symptoms was March 20, 2022. 12:05 Method Of Arrival: Ambulatory ph 12:05 Acuity: NICOLASA 3 ph Triage Assessment: 12:09 General: Appears in no apparent distress. uncomfortable, Behavior is cooperative, ph appropriate for age, anxious. Pain: Complains of pain in anterior aspect of left upper chest Pain radiates to neck. Neuro: Level of Consciousness is awake, alert, obeys commands, Oriented to person, place, time, situation. Cardiovascular: Reports chest pain, nausea, shortness of breath, Capillary refill < 3 seconds in bilateral fingers Patient's skin is warm and dry. Rhythm is sinus rhythm. Respiratory: Airway is patent Respiratory effort is even, unlabored, Respiratory pattern is regular, symmetrical. Derm: Skin is healthy with good turgor, Skin is pink, warm \\T\\ dry. Musculoskeletal: Circulation, motion, and sensation intact. Range of motion: intact in all extremities. Historical: - Allergies: 12:10 No Known Drug Allergies; ph - Home Meds: 12:08 Ambien 10 mg Oral tab 1 tab once daily [Active]; Lamictal 200 mg Oral tab 1 tab once ph daily [Active]; Latuda 80 mg Oral tab 1 tab once daily [Active]; Prozac 20 mg Oral cap 1 cap 2 times per day [Active]; - PMHx: 12:08 chronic back pain; depressive disorder; GI Bleed; heart attack due to trauma; Kidney ph stones; Migraine; - PSHx: 12:08 section; Emergency laparotomy; ph - Immunization history:: Adult Immunizations unknown. - Social history:: Smoking status: Patient denies any tobacco usage or history of. Screenin:10 Abuse screen: Denies threats or abuse. Denies injuries from another. Nutritional ph screening: No deficits noted. Tuberculosis screening: No symptoms or risk factors identified. Fall Risk None identified. Assessment: 12:11 General: SEE TRIAGE ASSESSMENT. ph 13:15 Reassessment: NAD, VSS, pt c/o chest pain 8-12/21, RESEARCH STUDY ASSISTANT Ashley notified, no new orders at this time. Vital Signs: 12:05 BP 140 / 92; Pulse 86; Resp 18; Temp 97.8; Pulse Ox 100% on R/A; Weight 87.09 kg; ph Height 5 ft. 2 in. (157.48 cm); 13:00 BP 120 / 88; Pulse 77; Resp 18; Pulse Ox 99% on R/A; ph 13:45 BP 118 / 78; Pulse 71; Resp 18; Temp 98.0; Pulse Ox 99% on R/A; ph 12:05 Body Mass Index 35.12 (87.09 kg, 157.48 cm) ph ED Course: 11:58 Patient arrived in ED. ph 12:02 Ashley Taylor FNP-C [facility]. snw 12:02 Blade Haas MD is Attending Physician. snw 12:08 Triage completed. ph 12:09 Arm band placed on Patient placed in an exam room, on a stretcher, on application technical designer, ph on pulse oximetry. 12:10 Patient has correct armband on for positive identification. Bed in low position. Call ph light in reach. Side rails up X 1. Client placed on continuous cardiac and pulse oximetry monitoring. NIBP monitoring applied. 12:11 Patient maintains SpO2 saturation greater than 95% on room air. ph 12:20 Inserted saline lock: 22 gauge in right antecubital area, using aseptic technique. ph Blood collected. 12:47 XRAY Chest (1 view) In Process Unspecified. EDMS 12:48 Jael Dang, RN is Primary Nurse. ph 13:48 No provider procedures requiring assistance completed. IV discontinued, intact, ph bleeding controlled, No redness/swelling at site. Pressure dressing applied. Administered Medications: 12:46 Drug: Zofran (Ondansetron) 4 mg Route: IVP; Site: right antecubital; ph 13:00 Follow up: Response: No adverse reaction ph 12:52 Drug: Aspirin Chewable Tablet 324 mg Route: PO; ph 13:00 Follow up: Response: No adverse reaction ph 12:52 Drug: Ketorolac 30 mg Route: IVP; Site: right antecubital; ph 13:00 Follow up: Response: No adverse reaction ph Medication: 12:10 VIS not applicable for this client. ph Outcome: 13:26 Discharge ordered by . snw 13:48 Patient left the ED. ph 13:48 Discharged to home ambulatory, with family. ph 13:48 Condition: good 13:48 Discharge instructions given to patient, Instructed on discharge instructions, follow up and referral plans. medication usage, Demonstrated understanding of instructions, follow-up care, medications, Prescriptions given X 1. Signatures: Dispatcher [employer] EDMS Ashley Taylor, HELPER COORDINATOR-C HELPER COORDINATOR-Csnw Jael Dang, RN RN ph
--- NOTE | 2022-03-20 13:27 | EDPHYS ---
Physician Documentation [facility] Name: Yohana Reeves Age: 41 yrs Sex: Female : 1980 Arrival Date: 03/20/2022 Time: 11:58 Bed 7 Private MD: ED Physician Blade Haas HPI: 03/20 13:18 This 41 yrs old Female presents to ER via Ambulatory with complaints of Chest Pain. snw 13:18 The patient or guardian reports chest pain that is located primarily in the substernal snw area. Onset: suddenly, while awaiting Daughter's test results in ED. The pain does not radiate. Associated signs and symptoms: The patient has no apparent associated signs or symptoms. The chest pain is described as a pressure. Duration: The patient or guardian reports a single episode, that is still ongoing. Severity of pain: At its worst the pain was moderate. The patient has not recently seen a physician. Historical: - Allergies: 12:10 No Known Drug Allergies; ph - Home Meds: 12:08 Ambien 10 mg Oral tab 1 tab once daily [Active]; Lamictal 200 mg Oral tab 1 tab once ph daily [Active]; Latuda 80 mg Oral tab 1 tab once daily [Active]; Prozac 20 mg Oral cap 1 cap 2 times per day [Active]; - PMHx: 12:08 chronic back pain; depressive disorder; GI Bleed; heart attack due to trauma; Kidney ph stones; Migraine; - PSHx: 12:08 section; Emergency laparotomy; ph - Immunization history:: Adult Immunizations unknown. - Social history:: Smoking status: Patient denies any tobacco usage or history of. ROS: 13:24 Constitutional: Negative for fever, chills, and weight loss, Eyes: Negative for injury, snw pain, redness, and discharge, ENT: Negative for injury, pain, and discharge, Neck: Negative for injury, pain, and swelling, Respiratory: Negative for shortness of breath, cough, wheezing, and pleuritic chest pain, Abdomen/GI: Negative for abdominal pain, nausea, vomiting, diarrhea, and constipation, Back: Negative for injury and pain, : Negative for injury, bleeding, discharge, and swelling, MS/Extremity: Negative for injury and deformity, Skin: Negative for injury, rash, and discoloration, Neuro: Negative for headache, weakness, numbness, tingling, and seizure, Psych: Negative for depression, anxiety, suicide ideation, homicidal ideation, and hallucinations. 13:24 Cardiovascular: Positive for chest pain, of the chest. Exam: 13:27 Constitutional: This is a well developed, well nourished patient who is awake, alert, snw and in no acute distress. Head/Face: Normocephalic, atraumatic. Eyes: Pupils equal round and reactive to light, extra-ocular motions intact. Lids and lashes normal. Conjunctiva and sclera are non-icteric and not injected. Cornea within normal limits. Periorbital areas with no swelling, redness, or edema. ENT: Nares patent. No nasal discharge, no septal abnormalities noted. Tympanic membranes are normal and external auditory canals are clear. Oropharynx with no redness, swelling, or masses, exudates, or evidence of obstruction, uvula midline. Mucous membranes moist. Neck: Trachea midline, no thyromegaly or masses palpated, and no cervical lymphadenopathy. Supple, full range of motion without nuchal rigidity, or vertebral point tenderness. No Meningismus. Chest/axilla: Normal chest wall appearance and motion. Nontender with no deformity. No lesions are appreciated. Cardiovascular: Regular rate and rhythm with a normal S1 and S2. No gallops, murmurs, or rubs. Normal PMI, no JVD. No pulse deficits. Respiratory: Lungs have equal breath sounds bilaterally, clear to auscultation and percussion. No rales, rhonchi or wheezes noted. No increased work of breathing, no retractions or nasal flaring. Abdomen/GI: Soft, non-tender, with normal bowel sounds. No distension or tympany. No guarding or rebound. No evidence of tenderness throughout. Back: No spinal tenderness. No costovertebral tenderness. Full range of motion. Skin: Warm, dry with normal turgor. Normal color with no rashes, no lesions, and no evidence of cellulitis. MS/ Extremity: Pulses equal, no cyanosis. Neurovascular intact. Full, normal range of motion. Neuro: Awake and alert, GCS 15, oriented to person, place, time, and situation. Cranial nerves II-XII grossly intact. Motor strength 5/5 in all extremities. Sensory grossly intact. Cerebellar exam normal. Normal gait. Psych: Awake, alert, with orientation to person, place and time. Behavior, mood, and affect are within normal limits. Vital Signs: 12:05 BP 140 / 92; Pulse 86; Resp 18; Temp 97.8; Pulse Ox 100% on R/A; Weight 87.09 kg; ph Height 5 ft. 2 in. (157.48 cm); 13:00 BP 120 / 88; Pulse 77; Resp 18; Pulse Ox 99% on R/A; ph 13:45 BP 118 / 78; Pulse 71; Resp 18; Temp 98.0; Pulse Ox 99% on R/A; ph 12:05 Body Mass Index 35.12 (87.09 kg, 157.48 cm) ph MDM: 12:03 Patient medically screened. snw 13:24 HEART Score: History: Slightly Suspicious (0), ECG: Non specific repolarization snw disturbance / LBTB / PM (1), Age: < or = 45 years (0), Risk Factors: No Risk Factors Known (0), Troponin: < or = 1 x Normal Limit (0), Total Score = 1. The patient was given aspirin in the Emergency Department. Data reviewed: vital signs, nurses notes. 13:27 Special discussion: Based on the patient's history, exam, and Dx evaluation, there is snw no indication for emergent intervention or inpatient Tx. It is understood by the patient/guardian that if the Sx's persist or worsen they need to return immediately for re-evaluation. Based on the history and exam findings, there is no indication for further emergent testing or inpatient evaluation. I discussed with the patient/guardian the need to see the emg technician for further evaluation of the symptoms. I discussed with the patient/guardian the need to see the primary care provider for further evaluation of the symptoms. 12 12:01 Order name: Basic Metabolic Panel; Complete Time: 12:54 snw 03/20 12:01 Order name: CBC with Diff; Complete Time: 12:42 snw 03/20 12:01 Order name: LFT's; Complete Time: 12:54 snw 03/20 12:01 Order name: Magnesium; Complete Time: 12:54 snw 03/20 12:01 Order name: Troponin HS; Complete Time: 12:54 snw 12/08 12:01 Order name: COVID-19/FLU A+B/RSV; Complete Time: 13:17 snw 03/20 12:01 Order name: XRAY Chest (1 view); Complete Time: 13:02 snw 03/20 12:01 Order name: EKG; Complete Time: 12:02 snw 03/20 12:01 Order name: Cardiac monitoring; Complete Time: 12:10 snw 03/20 12:01 Order name: EKG - Nurse/Tech; Complete Time: 12:52 snw 03/20 12:01 Order name: IV Saline Lock; Complete Time: 12:52 snw 03/20 12:01 Order name: Labs collected and sent; Complete Time: 12:52 snw 03/20 12:01 Order name: O2 Per Protocol; Complete Time: 12:10 snw 03/20 12:01 Order name: O2 Sat Monitoring; Complete Time: 12:10 snw EC:42 Rate is 79 beats/min. Rhythm is regular. QRS Simms is Normal. T waves are Inverted in snw leads III, aVR. T waves are Flattened in leads V4, V5, V6. Clinical impression: NSR w/ Non-specific ST/T Changes. Administered Medications: 12:46 Drug: Zofran (Ondansetron) 4 mg Route: IVP; Site: right antecubital; ph 13:00 Follow up: Response: No adverse reaction ph 12:52 Drug: Aspirin Chewable Tablet 324 mg Route: PO; ph 13:00 Follow up: Response: No adverse reaction ph 12:52 Drug: Ketorolac 30 mg Route: IVP; Site: right antecubital; ph 13:00 Follow up: Response: No adverse reaction ph Disposition: 14:20 Co-signature as Attending Physician, Blade Haas MD. rn Disposition Summary: 03/20/22 13:26 Discharge Ordered Location: Home snw Condition: Stable snw Diagnosis - Chest pain, unspecified snw Followup: snw - With: Emergency Department - When: As needed - Reason: Worsening of condition Followup: snw - With: Private Physician - When: 2 - 3 days - Reason: Recheck today's complaints, Continuance of care, Re-evaluation by your physician Discharge Instructions: - Discharge Summary Sheet snw - Nonspecific Chest Pain, Adult snw - Hypertension, Adult snw - How to Take Your Blood Pressure, [id number] snw - Aspirin and Your Heart snw Forms: - Medication Reconciliation Form snw - Thank You Letter snw - Antibiotic Education snw - Prescription Opioid Use snw Prescriptions: - Pepcid 20 mg Oral Tablet - take 1 tablet by ORAL route once daily; 20 tablet; Refills: 0, Product snw Selection Permitted Signatures: Dispatcher [employer] EDAshley Combs FNP-C FIELD CASE MANAGER-Csnw Blade Haas MD MD rn Jael Dang RN RN ph
[2022-03-20 15:30] VITALS: TEMP 97.8
[2022-03-20 15:35] VITALS: BP 120/88; O2SAT 99
--- NOTE | 2022-03-21 17:40 | EKG ---
Test Date: 2022-03-20 Test Time: 12:36:41 On Air Announcer: PH MEASUREMENT RESULTS: Intervals: Rate: 79 RI: 134 QRSD: 80 QT: 396 QTc: 454 Gratz: P: 53 RI: 134 QRS: 55 T: 27 INTERPRETIVE STATEMENTS: Normal sinus rhythm Nonspecific T wave abnormality Abnormal ECG Compared to ECG 06/28/2021 18:25:21 T-wave abnormality now present Sinus bradycardia no longer present Prolonged QT interval no longer present Electronically Signed On 03-21-22 17:37:56 G[employer] WELL DRILLING MANAGER by Jaciel Mathis
== END 2022-03-20 13:48 | disposition home or self-care (01) ==
LOC: ER 11:55
DX: R07.89 Other chest pain (principal); Z20.822 Contact with and (suspected) exposure to COVID-19; F32.A Depression, unspecified
CPT/HCPCS: 93005; 85025; 80048; 36415; 83735; 80076; 84484; 0241U; 71045; 96375; 96374; 99285; J2405

== ENCOUNTER 2022-06-03 14:22 | Emergency (ER) | payer BC ==
--- OUTSIDE RECORDS SUMMARY | 2022-06-03 14:30 | XMS REPORT | Continuity of Care Document ---
:1980 Author Organization [facility] t Address [address] [place] [place] [address] Care Team Providers Name Role Phone No, Pcp [facility] Primary Care Physician Unavailable ANGEL ATKINS Attending Clinician Unavailable ELISE RICE Attending Clinician Unavailable Jagjit DRYWALL FINISHER, Elise Arvizu Attending Clinician [phone] Pob, [facility] Attending Clinician Unavailable Ariel Britt MD Attending Clinician ARIEL BRITT Attending Clinician Unavailable Doctor Unassigned, [place] Attending Clinician Unavailable Paul Sams MD Attending Clinician PAUL SAMS Attending Clinician Unavailable DILLON_[email or web address]_Ludwin Attending Clinician Unavailable Alex Pierce Attending Clinician [phone] Megan Aranda Attending Clinician Ann Cardozo DO Attending Clinician Angelo Robles MD Attending Clinician Naun Bush MD Attending Clinician Mark Monterroso Attending Clinician Candido Isabel Attending Clinician CANDIDO RAMIREZ Attending Clinician Unavailable [email or web address] Admitting Clinician Unavailable Naun Bush MD Admitting Clinician CANDIDO RAMIREZ Admitting Clinician Unavailable Payers Payer Name Policy Type Policy Number Effective Date Expiration Date Esdras hayes [id number] PPO AND OUT OF [id number] 2021 [facility] 00:00:00 TML GBRP CLAIMS [id number] 2017 00:00:00 BCBS PPO POS EPO CHOICE [id number] 2021 00:00:00 TML - INTERGOVERNMENTAL [id number] 2017 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 PLAN 00:00:00 - [place] TRUE CHOICE (PPO) Problems Condition Condition Condition Status Onset Resolution Last Treating Co mments Source Name Details Category Date Date Treatment Clinician Date Tachycardi Tachycardi Disease Active 2019- U nivers a a 0-28 ity of 00:: [place] [facility] Family Family Disease Active 2019- Univers history of history of 0-28 it y of early CAD early CAD [place] [facility] Chest pain Chest pain Disease Active 2019- U nivers 0-27 ity of 00:00: [place] [facility] Obesity Obesity Disease Active 2019- Univers (BMI (BMI 0-27 ity of 30-39.9) 30-39.9) 00:00: [place] [facility] RLQ RLQ Disease Active 2019- Univers abdominal abdominal 9-24 ity of pain pain 00:00: Medical Branch Anxiety Anxiety Disease Active 2019- Univers 9-24 ity of 00:00: [place] [facility] Chronic Chronic Disease Active 2019- Univers low back low back 9-24 ity of pain pain 00:00: [place] [facility] Hyperchole Hyperchole Problem Active [facility] sterolemia sterolemia 11-11 Me dical 00:00: 00 Anemia Anemia Problem Active [facility]- Medical 00:00: 00 Hypertensi Hypertensi Problem Active [facility] ve ve 11-11 Medical disorder Disorder 00:00: 00 Allergies, Adverse Reactions, Alerts Allergy Allergy Status Severity Reaction(s) Onset Inactive Treating Comm ents Source Name Type Date Date Clinician ally PEARL Active RI 2009- [facility] subsalic 7-29 Clear ylate 00:00: Jones 00 [facility] NO KNOWN Allergy Active [facility] NO KNOWN Drug Active Univers ALLERGIE Class ity of S [facility] Social History Social Habit Start Date Stop Date Quantity Comments Source History of Cigarette Smoker [facility] tobacco use [facility] Tobacco use and 2021-10-15 2021-10-[address] [facility] [address] [facility] exposure 00:00:00 00:00:00 [facility] Alcohol intake 2021-10-15 2021-10-15 Ex-drinker [facility] 00:[facility] Exposure to 2021-06-16 2021-07-16 Not sure University of SARS-CoV-2 00:00:00 09:15:00 [place] [facility] (event) Branch History SDOH 2020-02-08 2020-02-08 99 University o f Alcohol Frequency 00:00:00 00:00:00 [place] [facility] edical [facility] History SDOH 2020-02-08 2020-02-08 99 University o f Alcohol Std 00:00:00 00:00:00 [place] [facility] Drinks Branch History SDOH 2020-02-08 2020-02-08 99 University o f Alcohol Binge 00:00:00 00:00:00 [place] [facility] Tobacco Comment 2020-02-07 2020-02-07 rarely Universit y of 00:00:00 00:00:00 [facility] Alcohol Comment 2020-02-07 2020-02-07 occasionally Univers ity of 00:00:00 00:00:00 [facility] Cigarettes smoked 2020-01-24 2020-01-24 Univers ity of current (pack per 00:00:00 00:00:00 [facility] ed) - Reported Branch Sex Assigned At [address] [facility] 00:00:00 00:00:00 [facility] Smoking Status Start Date Stop Date Source Heavy Tobacco Smoker [facility] Former smoker 2021-10-15 00:00:00 2021-10-15 00:00:00 [facility] Medications Ordered Filled Start Stop Current Ordering Indication Dosage Frequency Signature Comments Components Source Medication Medication Date Date Medication? Clinician (SIG) Name Name benzonatate Yes 100mg Take [address] (TESSALON) 7-05 mg by [facility] 100 MG 14:24: mouth 3 Medical capsule 12 (three) Center times daily as needed for Cough. meloxicam 2021-0 Yes 15mg QD Take [address] (MOBIC) 15 7-05 by mouth [facility] MG tablet 14:24: daily. Medica l [address] [place] montelukast Yes 10mg QD Take [address] (SINGULAIR) 7-05 by mouth Luke s 10 mg 14:24: nightly. Medical tablet [address] [place] benzonatate Yes 100mg Take [address] (TESSALON) 7-05 mg by [facility] 100 MG 14:24: mouth 3 Medical capsule 12 (three) Center times daily as needed for Cough. meloxicam Yes 15mg QD Take [address] (MOBIC) 15 7-05 by mouth [facility] MG tablet 14:24: daily. Medica l [address] [place] [address] montelukast Yes 10mg QD Take [address] (SINGULAIR) 7-05 by mouth Luke s 10 mg 14:24: nightly. Medical tablet 12 [place] benzonatate Yes 100mg Take [address] (TESSALON) 7-05 mg by [facility] 100 MG 14:24: mouth 3 Medical capsule 12 (three) Center times daily as needed for Cough. meloxicam 0 Yes 15mg QD Take [address] (MOBIC) 15 7-05 by mouth [facility] MG tablet 14:24: daily. Medica l [address] [place] [address] montelukast Yes 10mg QD Take [address] (SINGULAIR) 7-05 by mouth Luke s 10 mg 14:24: nightly. Medical tablet 12 [place] butalbital- 2021- No 1{tbl} Take [address] acetaminoph 7-05 07-10 tablet by Rachel [place] en-caffeine 00:00: 23:59 mouth Medi riky (FIORICET, 00 :00 every 6 Center ESGIC) (six) 50-325-40 hours as mg per needed for tablet Headaches for up to 5 days. butalbital- 2021- No 1{tbl} Take [address] acetaminoph 7-05 07-10 tablet by Rachel [place] en-caffeine 00:00: [...] ity of mg 19:15: 18:10 ONCE, 1 [place] 00 :00 dose, Mon Medical 07/23/20 at Branch 1415, STAT ondansetron 2020- No 4mg 4 mg, Slow Univers (ZOFRAN 07-23 IV Push, ity of (PF)) 18:00: 16:55 ONCE, 1 [place] injection 4 00 :00 dose, Mon Med ical mg 07/23/20 at Branch 1300, LORENE ketorolac 2020- No 30mg 30 mg, Unive rs (TORADOL) 07-23 Slow IV ity of injection 18:00: 16:55 Push, [place] 30 mg 00 :00 ONCE, 1 Medical dose, Mon [place] 07/23/20 at 1300, LORENE
Fa culty member approving Restricted medication : MEGAN LYONS iohexol 2020- No [id number] 120mL 120 mL, Univers (OMNIPAQUE 07-23 Intravenou it y of 350 17:15: 17:10 s, ONCE, 1 [place] BULK-150 00 :00 dose, Mon Medica l mL) 07/23/20 at Branch injection 1215, 120 mL Routine ondansetron Yes [id number] 4mg Take 1 Univers (ZOFRAN -12 tablet by ity of ODT) 4 mg 00:00: mouth [place] disintegrat 00 every 8 Medic al ing tablet (eight) Branch hours as needed for Nausea and Vomiting (N/V). ondansetron 2020-0 Yes [id number] 4mg Take 1 Univers (ZOFRAN 4-12 tablet by ity of ODT) 4 mg 00:00: mouth [place] disintegrat 00 every 8 Medic al ing tablet (eight) Branch hours as needed for Nausea and Vomiting (N/V). ondansetron 2020-0 Yes [id number] 4mg Take 1 Univers (ZOFRAN 4-12 tablet by ity of ODT) 4 mg 00:00: mouth [place] disintegrat 00 every 8 Medic al ing tablet (eight) Branch hours as needed for Nausea and Vomiting (N/V). ondansetron 2020-0 Yes [id number] 4mg Take 1 Univers (ZOFRAN 4-12 tablet by ity of ODT) 4 mg 00:00: mouth [place] disintegrat 00 every 8 Medic al ing tablet (eight) Branch hours as needed for Nausea and Vomiting (N/V). ondansetron 2020-0 Yes [id number] 4mg Take 1 Univers (ZOFRAN 4-12 tablet by ity of ODT) 4 mg 00:00: mouth [place] disintegrat 00 every 8 Medic al ing tablet (eight) Branch hours as needed for Nausea and Vomiting (N/V). ondansetron 2020-0 Yes [id number] 4mg Take 1 Univers (ZOFRAN 4-12 tablet by ity of ODT) 4 mg 00:00: mouth [place] disintegrat 00 every 8 Medic al ing tablet (eight) Branch hours as needed for Nausea and Vomiting (N/V). ondansetron 2020-0 Yes [id number] 4mg Take 1 Univers (ZOFRAN 4-12 tablet by ity of ODT) 4 mg 00:00: mouth [place] disintegrat 00 every 8 Medic al ing tablet (eight) Branch hours as needed for Nausea and Vomiting (N/V). butorphanol 0 2020- No 1mg 1 mg, IV U nivers (STADOL) 16 15 Push, ity of injection 1 00:00: 23:22 [...] :00 dose, Fri Medical 50-325-40 04/27/20 at [facility] ch mg tablet 1 1530, tablet [...] mg 00 :00 1 dose, Medical Fri [place] 04/27/20 at 1430, LORENE ondansetron 2020- No [...] Medical 04/27/20 at Branch 1345, Routine dexamethaso No 10mg 10 mg, IV Univers ne [...] 0-28 mouth ity of (BYSTOLIC 19:30: daily. [place] ORAL) 22 Medical Branch zolpidem 2019-04 Yes 10mg Take 10 mg Uni vers (AMBIEN) 10 0-28 by mouth ity of mg tablet 19:30: at [place] 22 bedtime. Medical Branch FLUoxetine 2019-04 Yes 80mg Take 80 mg U nivers (PROZAC) 40 0-28 by mouth ity of mg capsule 19:30: daily. [address] Branch ARIPiprazol 2019-04 Yes 5mg Take 5 mg U nivers e (ABILIFY) 0-28 by mouth ity of 5 mg tablet 19:30: daily. [address] Branch HYDROcodone 2019-04 Yes 1{tbl} Take [...] 0-28 mouth ity of (BYSTOLIC 19:30: daily. [place] [address] Medical Branch zolpidem 2019-04 Yes 10mg Take 10 mg Uni vers (AMBIEN) 10 0-28 by mouth ity of mg tablet 19:30: at [place] [address] bedtime. Medical Branch FLUoxetine 2019-04 Yes 80mg Take 80 mg U nivers (PROZAC) 40 0-28 by mouth ity of mg capsule 19:30: daily. [address] ARIPiprazol 2019-04 Yes 5mg Take 5 mg U nivers e (ABILIFY) 0-28 by mouth ity of 5 mg tablet 19:30: daily. [address] HYDROcodone 2019-04 Yes 1{tbl} Take 1 [...] 0-28 mouth ity of (BYSTOLIC 19:30: daily. [place] [address] Medical Branch zolpidem 2019-04 Yes 10mg Take 10 mg Uni vers (AMBIEN) 10 0-28 by mouth ity of mg tablet 19:30: at [place] [address] bedtime. Medical Branch FLUoxetine 2019-04 Yes 80mg Take 80 mg U nivers (PROZAC) 40 0-28 by mouth ity of mg capsule 19:30: daily. [address] ARIPiprazol 2019-04 Yes 5mg Take 5 mg U nivers e (ABILIFY) 0-28 by mouth ity of 5 mg tablet 19:30: daily. [address] HYDROcodone 2019-04 Yes 1{tbl} Take 1 [...] 0-28 mouth ity of (BYSTOLIC 14:30: daily. [address] zolpidem 2019-04 Yes 10mg Take 10 mg Uni vers (AMBIEN) 10 0-28 by mouth ity of mg tablet 14:30: at [place] [address] bedtime. Medical Branch FLUoxetine 2019-04 Yes 80mg Take 80 mg U nivers (PROZAC) 40 0-28 by mouth ity of mg capsule 14:30: daily. [address] ARIPiprazol 2019-04 Yes 5mg Take 5 mg U nivers e (ABILIFY) 0-28 by mouth ity of 5 mg tablet 14:30: daily. [address] HYDROcodone 2019-04 Yes 1{tbl} Take 1 [...] 0-28 mouth ity of (BYSTOLIC 14:30: daily. [place] ORAL) 22 Medical Branch zolpidem 2019-04 Yes 10mg Take 10 mg Uni vers (AMBIEN) 10 0-28 by mouth ity of mg tablet 14:30: at [place] [address] bedtime. Medical Branch FLUoxetine 2019-04 Yes 80mg Take 80 mg U nivers (PROZAC) 40 0-28 by mouth ity of mg capsule 14:30: daily. [place] [address] Medical Branch ARIPiprazol 2019-04 Yes 5mg Take 5 mg U nivers e (ABILIFY) 0-28 by mouth ity of 5 mg tablet 14:30: daily. [place] 22 [place] Branch HYDROcodone [...] 0-28 mouth ity of (BYSTOLIC 14:30: daily. [facility]) Medical Branch zolpidem 2019-04 Yes 10mg Take 10 mg Uni vers (AMBIEN) 10 0-28 by mouth ity of mg tablet 14:30: at [place] [address] bedtime. Medical Branch FLUoxetine 2019-04 Yes 80mg Take 80 mg U nivers (PROZAC) 40 0-28 by mouth ity of mg capsule 14:30: daily. [place] [address] Medical Branch ARIPiprazol 2019-04 Yes 5mg Take 5 mg U nivers e (ABILIFY) 0-28 by mouth ity of 5 mg tablet 14:30: daily. [place] 22 Medical Branch HYDROcodone [...] 0-28 mouth ity of (BYSTOLIC 14:30: daily. [place] ORAL) Medical Branch zolpidem 2019-04 Yes 10mg Take 10 mg Uni vers (AMBIEN) 10 0-28 by mouth ity of mg tablet 14:30: at [place] [address] bedtime. Medical Branch FLUoxetine 2019-04 Yes 80mg Take 80 mg U nivers (PROZAC) 40 0-28 by mouth ity of mg capsule 14:30: daily. [place] [address] Medical Branch ARIPiprazol 2019-04 Yes 5mg Take 5 mg U nivers e (ABILIFY) 0-28 by mouth ity of 5 mg tablet 14:30: daily. [place] [address] Medical Branch HYDROcodone 2019-04 Yes 1{tbl} Take [...] 0-28 mouth ity of (BYSTOLIC 14:30: daily. [place] ORAL) Medical Branch zolpidem 2019-04 Yes 10mg Take 10 mg Uni vers (AMBIEN) 10 0-28 by mouth ity of mg tablet 14:30: at [place] [address] bedtime. Medical Branch FLUoxetine 2019-04 Yes 80mg Take 80 mg U nivers (PROZAC) 40 0-28 by mouth ity of mg capsule 14:30: daily. [place] [address] Medical Branch ARIPiprazol 2019-04 Yes 5mg Take 5 mg U nivers e (ABILIFY) 0-28 by mouth ity of 5 mg tablet 14:30: daily. [facility] 22 Medical Branch HYDROcodone 2019-04 [...] 0-28 mouth ity of (BYSTOLIC 14:30: daily. [place] ORAL) 22 Medical Branch zolpidem 2019-04 Yes 10mg Take 10 mg Uni vers (AMBIEN) 10 0-28 by mouth ity of mg tablet 14:30: at [place] [address] bedtime. Medical Branch FLUoxetine 2019-04 Yes 80mg Take 80 mg U nivers (PROZAC) 40 0-28 by mouth ity of mg capsule 14:30: daily. [place] 22 Medical Branch ARIPiprazol 2019-04 Yes 5mg Take 5 mg U nivers e (ABILIFY) 0-28 by mouth ity of 5 mg tablet 14:30: daily. [place] 22 [place] Branch HYDROcodone [...] 0-28 Oral, ity of (PROTONIX) 14:00: DAILY, [place] EC tablet 00 First dose Medi riky [...] ity of XR) 24 hr 13:00: WITH [place] capsule 150 00 BREAKFAST, Me dical mg First dose Branch on Thu02/08/20 at 0800, Until Discontinu ed, Routine zolpidem 2019-04 Yes 10mg 10 mg, Univers (AMBIEN) 0-28 Oral, QHS, ity o f tablet 10 02:00: First dose [place] mg 00 on Thu [facility] 02/07/20 Branch at 2100, Until Discontinu ed, Routine NaCl 0.9% 2019-04- No IV Univers (NS) IV 002-07 Infusion, ity of infusion 02:00: 09:59 at 125 [place] 00 :00 mL/hr, Medical CONTINUOUS Branch , Starting Thu02/07/20 at 2100, Until Thu02/08/20 at 0459, Routine HYDROcodone 2019-04 Yes 1{tbl} 1 tablet, Univers -acetaminop 0-28 Oral, BID, it y of hen (NORCO 01:00: First dose [place] 5) 5-325 mg 00 on [facility] l tablet 1 02/07/20 Branch tablet at 2000, Until Discontinu ed, Routine nitroglycer 2019-04 Yes .4mg 0.4 mg, Uni vers in 0-28 Sublingual ity of (NITROSTAT) 00:22: , Q5MIN [place] as sublingual 18 PRN, Medical tablet 0.4 Starting Branc h mg 02/07/20 at 1922, Until Discontinu ed, Routine, Chest pain morpHINE 2019-04 2020- No 2mg 2 mg, Slow Un carol injection 2 0- IV Push, ity of mg 00:21: 00:20 Q4HPRN, [place] 44 :44 Starting Medical [facility] 02/07/20 at 192, Until 02/08/20 at 192, Routine, Pain (scale 7-10), Chest pain acetaminoph 2019-04 2020- No 1{tbl} 1 tablet, Univers en-codeine 030 Oral, ity of (TYLENOL 00:21: 00:20 Q6HPRN, [place] #3) 300-30 33 :33 Starting Medic al mg tablet 1 [facility] tablet 02/07/20 at 192, Until [facility] 02/09/20 at 192, Routine, Pain (scale 4-6) acetaminoph 2019-04 Yes 650mg 650 mg, Un carol en Oral, ity of (TYLENOL) 00:21: [facility] [place] tablet 650 31 Starting Medic al mg [facility] 02/07/20 at 192, Until Discontinu ed, Routine, Pain (scale 1-3) FENTanyl PF 2019-04 2020- No 100ug 100 mcg, Univers (SUBLIMAZE 02-06 Slow IV ity o f (PF)) 23:30: 22:26 Push, [place] injection 00 :00 ONCE, 1 Medical 100 mcg dose, [facility] 02/07/20 at 1830, STAT nitroglycer 2019-04 2020- No .4mg 0.4 mg, Un carol in 02-06 Sublingual ity of (NITROSTAT) 22:30: 21:30 , ONCE, 1 [place] sublingual 00 :00 dose, [facility] Medi riky tablet 0.4 02/07/20 Branc h mg at 1730, LORENE acetaminoph 2019-04 2020- No 975mg 975 mg, U nivers en 02-06 Oral, ity of (TYLENOL) 22:30: 21:30 ONCE, 1 [place] tablet 975 00 :00 dose, e Medi riky mg 02/07/20 Branch at 1730, LORENE iohexol 2019-04 2020- No 120mL 120 mL, Unive rs (OMNIPAQUE 02-06 Intravenou it y of 350 21:30: 21:30 s, ONCE, 1 [place] BULK-150 00 :00 dose, Tue Medica l mL) 02/07/20 Branch injection at 1630, 120 mL Routine ondansetron 2019-04- No 4mg 4 mg, Slow Univers (ZOFRAN 0-27 10-27 IV Push, ity of (PF)) 21:30: 20:30 ONCE, 1 [place] injection 4 00 :00 dose, Tue Med ical mg 02/07/20 Branch at 1630, LORENE morpHINE 2019-04 2020- No 4mg 4 mg, Slow Un carol injection 4 0-27 10-27 IV Push, ity of mg 21:30: 20:30 ONCE, 1 [place] 00 :00 dose, [facility] Medical 02/07/20 Branch at 1630, STAT morpHINE 2019-04 2020- No 4mg 4 mg, Slow Un carol injection 4 0-14 10-14 IV Push, ity of mg 02:15: 01:13 ONCE, 1 [place] 00 :00 dose, [facility] 01/24/20 Branch at 2115, STAT ondansetron 2019-04- No 4mg 4 mg, Slow Univers (ZOFRAN 0-14 10-14 IV Push, ity of (PF)) 02:15: 01:13 ONCE, 1 [place] injection 4 00 :00 dose, Tue Med [...] ity of (PF)) 01:00: 23:47 ONCE, 1 [place] injection 4 00 :00 dose, Tue Med ical mg 01/24/20 Branch at 2000, LORENE morpHINE 2019-04 2020- No 4mg 4 mg, Slow Un carol injection 4 0-14 10-13 IV Push, ity of mg 01:00: 23:47 ONCE, 1 [place] 00 :00 dose, Tue Medical 01/24/20 Branch at 2000, STAT iohexol 2019-04 2020- No 120mL 120 mL, Unive rs (OMNIPAQUE 0-13 10-13 Intravenou it y of 350 23:45: 23:45 s, ONCE, 1 [place] BULK-150 00 :00 dose, Tue Medica l mL) 01/24/20 Branch injection at 1845, 120 mL Routine zolpidem 2019-04 Yes 10mg Take 10 mg Uni vers (AMBIEN) 10 0-13 by mouth ity of mg tablet 22:12: at [place] [address] bedtime. Medical Branch FLUoxetine 2019-04 Yes 80mg [...] tablet by ity o f 00:00: mouth [place] 00 every 6 Medical (six) Branch hours as needed for Pain (scale 4-6). Indication s: acute pain ondansetron 2019-04 Yes [id number] 8mg Take 2 Univers 4 mg tablet 0-13 tablets by it y of 00:00: mouth [place] 00 every 8 Medical (eight) Branch hours as needed for Nausea and Vomiting (N/V). ondansetron 2019-04 Yes [id number] 8mg Take 2 Univers 4 mg tablet 0-13 tablets by it y of 00:00: mouth [place] 00 every 8 Medical (eight) Branch hours as needed for Nausea and Vomiting (N/V). ondansetron 2020-1 Yes [id number] 8mg Take 2 Univers 4 mg tablet 0-13 tablets by it y of 00:00: mouth [place] 00 every 8 Medical (eight) Branch hours as needed for Nausea and Vomiting (N/V). ondansetron 2020-1 Yes [id number] 8mg Take 2 Univers 4 mg tablet 0-13 tablets by it y of 00:00: mouth [place] 00 every 8 Medical (eight) Branch hours as needed for Nausea and Vomiting (N/V). ondansetron 2020-1 Yes [id number] 8mg Take 2 Univers 4 mg tablet 0-13 tablets by it y of 00:00: mouth [place] 00 every 8 Medical (eight) Branch hours as needed for Nausea and Vomiting (N/V). ondansetron 2020-1 Yes [id number] 8mg Take 2 Univers 4 mg tablet 0-13 tablets by it y of 00:00: mouth [place] 00 every 8 Medical (eight) Branch hours as needed for Nausea and Vomiting (N/V). ondansetron 2020-1 Yes [id number] 8mg Take 2 Univers 4 mg tablet 0-13 tablets by it y of 00:00: mouth [place] 00 every 8 Medical (eight) Branch hours as needed for Nausea and Vomiting (N/V). ondansetron 2020-1 Yes [id number] 8mg Take 2 Univers 4 mg tablet 0-13 tablets by it y of 00:00: mouth [place] 00 every 8 Medical (eight) Branch hours as needed for Nausea and Vomiting (N/V). ondansetron 2020-1 Yes [id number] 8mg Take 2 Univers 4 mg tablet 0-13 tablets by it y of 00:00: mouth [place] 00 every 8 Medical (eight) Branch hours as needed for Nausea and Vomiting (N/V). ciprofloxac 2020-1 Yes [id number] 500mg Take 1 Univers in HCl 500 0-13 tablet by ity of mg tablet 00:00: mouth 2 [place] 00 (two) Medical times Branch daily. traMADoL 50 2020-1 Yes [id number] 50mg Take 1 Univ ers mg tablet 0-13 tablet by ity o f 00:00: mouth [place] 00 every 6 Medical (six) Branch hours as needed for Pain (scale 4-6). Indication s: acute pain ondansetron 2020-1 Yes [id number] 8mg Take 2 Univers 4 mg tablet [...] Indication s: acute pain ciprofloxac 2019-04- No [id number] 500mg Take 1 Univers in HCl 500 [...] No 4mg 4 mg, Slow Univers (ZOFRAN 2-02 06-20 IV Push, ity of (PF)) 19:00: 17:54 ONCE, 1 [place] injection 4 00 :00 dose, [place] Med ical mg 06/02/19 at Branch 1300, LORENE morpHINE 2019-2019- No 4mg 4 mg, Slow Un carol injection 4 -02 06-20 IV Push, ity of mg 19:00: 17:54 ONCE, 1 [place] 00 :00 dose, [place] Medical 06/02/19 at Branch 1300, STAT iohexol 2019- No 120mL 120 mL, Unive rs (OMNIPAQUE 06-02-20 Intravenou it y of 350 18:37: 18:35 s, ONCE, 1 [place] BULK-150 00 :00 dose, [place] Medica l mL) 06/02/19 at Branch injection 1300, 120 mL Routine NaCl 0.9% 2019-2019- No 1000mL at 999 Uni vers (NS) bolus 2-20 02-20 mL/hr, ity of infusion 17:30: 19:11 1,000 mL, [place] 1,000 mL 00 :00 IV Medical Infusion, Branch ONCE, 1 dose, [place] 06/02/19 at 1130, LORENE dicyclomine 2019-0 Yes [id number] 10mg Take 1 Univers (BENTYL) 10 2-20 capsule by it y of mg capsule 00:00: mouth 4 [place] 00 (four) Medical times Branch daily as needed for Abdominal pain. dicyclomine 2019-0 Yes [id number] 10mg Take 1 Univers (BENTYL) 10 2-20 capsule by it y of mg capsule 00:00: mouth 4 [place] 00 (four) Medical times Branch daily as needed for Abdominal pain. dicyclomine 2019- 2020- No [id number] 10mg Take 1 Univers (BENTYL) 10 2-20 10-13 capsule by i ty of mg capsule 00:00: 00:00 mouth 4 [place] 00 :00 (four) Medical times Branch daily as needed for Abdominal pain. traMADol Yes [id number] 50mg Take 1 Univers (ULTRAM) 50 9- [id number] tablet by i ty of mg tablet 00:00: mouth [place] 00 every 8 Medical (eight) Branch hours as needed for Pain (scale 4-6). traMADol Yes [id number] 50mg Take 1 Univers (ULTRAM) 50 9-28 [id number] tablet by i ty of mg tablet 00:00: mouth [place] 00 every 8 Medical (eight) Branch hours as needed for Pain (scale 4-6). traMADol 2020- No [id number] 50mg Take 1 Univers (ULTRAM) 50 9-28 10-13 [id number] tablet by ity of mg tablet 00:00: 00:00 mouth [place] 00 :00 every 8 Medical (eight) Branch hours as needed for Pain (scale 4-6). nebivolol 2018- Yes Take by Unive rs HCl - mouth ity of (BYSTOLIC 20:20: daily. [place] ORAL) 01 Medical Branch zolpidem 2018-0 Yes 10mg Take 10 mg Uni vers [...] ity of 5 mg tablet 20:20: daily. [facility] s Medical Branch hydrOXYzine Yes 25mg Take 25 mg Univers 25 mg 9-26 by mouth ity of tablet 20:20: at bedtime [place] as needed Medical for Branch Itching or Anxiety. nebivolol Yes Take by Unive rs HCl 9- mouth ity of (BYSTOLIC 20:20: daily. [facility] Medical Branch zolpidem Yes 10mg Take 10 mg Uni vers (AMBIEN) 10 9- by mouth ity of mg tablet 20:20: at [place] [address] bedtime. Medical Branch HYDROcodone Yes 1{tbl} Take 1 Un carol -acetaminop 9- tablet by ity of hen 7.5-325 20:20: mouth 2 [place] mg per (two) Medical tablet times Branch daily. FLUoxetine Yes 60mg Take 60 mg U nivers (PROZAC) 40 9-26 by mouth ity of mg capsule 20:20: daily. Medical Branch ARIPiprazol Yes 5mg Take 5 mg U nivers e (ABILIFY) 9-26 by mouth ity of 5 mg tablet 20:20: daily. [facility] s Medical Branch hydrOXYzine Yes 25mg Take 25 mg Univers 25 mg 9-26 by mouth ity of tablet 20:20: at bedtime [place] as needed Medical for Branch Itching or Anxiety. nebivolol Yes Take by Unive rs HCl 9-26 mouth ity of (BYSTOLIC 20:20: daily. [facility]) Medical Branch Abilify Abilify No Abilify [facility] [...] rosado Height 2020-08-24 00:00:00 62 [in_i] Ting rosado BMI (Body Mass 2020-08-24 00:00:00 32 kg/m2 [facility] Medical Index) BP Systolic 2020-08-24 00:00:00 124 mm[Hg] Ting rosado Body Weight 2020-08-24 00:00:00 175 [lb_av] Ting rosado Heart rate 2020-07-23 19:30:00 75 /min Universi ty of [place] Medical Branch Oxygen saturation in 2020-07-23 19:30:00 100 /min University of Arterial blood by [facility] Pulse oximetry Branch Systolic blood 2020-07-23 18:00:00 142 mm[Hg] [facility] Diastolic blood 2020-07-23 18:00:00 97 mm[Hg] [facility] Respiratory rate 2020-07-23 18:00:00 20 /min [facility] Body temperature 2020-07-23 16:37:00 37.11 Elodia [facility] Body height 2020-07-23 16:37:00 157.5 cm [facility] Body weight 2020-07-23 16:37:00 79.379 kg [facility] BMI 2020-07-23 16:37:00 32.01 kg/m2 [facility] Heart rate 2020-07-23 19:30:00 75 /min [facility] Oxygen saturation in 2020-07-23 19:30:00 100 /min University of Arterial blood by [facility] riky Pulse oximetry Branch Systolic blood 2020-07-23 18:00:00 142 mm[Hg] [facility] Diastolic blood 2020-07-23 18:00:00 97 mm[Hg] [facility] Respiratory rate 2020-07-23 18:00:00 20 /min [facility] Body temperature 2020-07-23 16:37:00 37.11 Elodia [facility] Body height 2020-07-23 16:37:00 157.5 cm [facility] Body weight 2020-07-23 16:37:00 79.379 kg [facility] BMI 2020-07-23 16:37:00 32.01 kg/m2 [facility] Systolic blood 2020-04-27 23:25:00 112 mm[Hg] [facility] Diastolic blood 2020-04-27 23:25:00 87 mm[Hg] [facility] Heart rate 2020-04-27 23:25:00 78 /min [facility] Respiratory rate 2020-04-27 23:25:00 18 /min [facility] Oxygen saturation in 2020-04-27 23:25:00 99 /min University of Arterial blood by [place] [employer] riky Pulse oximetry Branch Body temperature 2020-04-27 17:24:00 37.06 Elodia [facility] Body height 2020-04-27 17:24:00 157.5 cm [facility] Body weight 2020-04-27 17:24:00 77.111 kg [facility] BMI 2020-04-27 17:24:00 31.09 kg/m2 [facility] Systolic blood 2020-04-27 23:25:00 112 mm[Hg] [facility] Diastolic blood 2020-04-27 23:25:00 87 mm[Hg] [facility] Heart rate 2020-04-27 23:25:00 78 /min [facility] Respiratory rate 2020-04-27 23:25:00 18 /min [facility] Oxygen saturation in 2020-04-27 23:25:00 99 /min University of Arterial blood by [place] [employer] riky Pulse oximetry Branch Body temperature 2020-04-27 17:24:00 37.06 Elodia [facility] Body height 2020-04-27 17:24:00 157.5 cm [facility] Body weight 2020-04-27 17:24:00 77.111 kg [facility] BMI 2020-04-27 17:24:00 31.09 kg/m2 [facility] Systolic blood 2020-02-08 16:45:00 114 mm[Hg] [facility] Diastolic blood 2020-02-08 16:45:00 84 mm[Hg] [facility] Heart rate 2020-02-08 16:45:00 80 /min [facility] Body temperature 2020-02-08 16:45:00 36.06 Elodia [facility] Respiratory rate 2020-02-08 16:45:00 20 /min [facility] Oxygen saturation in 2020-02-08 16:45:00 96 /min University of Arterial blood by [place] [employer] riky Pulse oximetry Branch Body height 2020-02-08 00:37:00 152.4 cm [facility] Body weight 2020-02-08 00:37:00 78.019 kg [facility] BMI 2020-02-08 00:37:00 33.59 kg/m2 [facility] Systolic blood 2020-02-08 16:45:00 114 mm[Hg] [facility] Diastolic blood 2020-02-08 16:45:00 84 mm[Hg] [facility] Heart rate 2020-02-08 16:45:00 80 /min [facility] Body temperature 2020-02-08 16:45:00 36.06 Elodia [facility] Respiratory rate 2020-02-08 16:45:00 20 /min [facility] Oxygen saturation in 2020-02-08 16:45:00 96 /min University of Arterial blood by [place] [employer] riky Pulse oximetry Branch Body height 2020-02-08 00:37:00 152.4 cm [facility] Body weight 2020-02-08 00:37:00 78.019 kg [facility] BMI 2020-02-08 00:37:00 33.59 kg/m2 [facility] Systolic blood 2020-01-25 02:00:00 134 mm[Hg] [facility] Diastolic blood 2020-01-25 02:00:00 94 mm[Hg] [facility] Heart rate 2020-01-25 02:00:00 83 /min [facility] Oxygen saturation in 2020-01-25 02:00:00 96 /min [facility] blood by [place] [facility]xim[facility] Respiratory rate 2020-01-25 01:00:00 16 /min [facility] Body temperature 2020-01-24 22:09:00 37.11 Elodia [facility] Body height 2020-01-24 22:09:00 157.5 cm [facility] Body weight 2020-01-24 22:09:00 78.336 kg [facility] BMI 2020-01-24 22:09:00 31.59 kg/m2 [facility] Systolic blood 2020-01-25 02:00:00 134 mm[Hg] [facility] Diastolic blood 2020-01-25 02:00:00 94 mm[Hg] [facility] Heart rate 2020-01-25 02:00:00 83 /min [facility] Oxygen saturation in 2020-01-25 02:00:00 96 /min University of Arterial blood by [facility] riky Pulse oximetry Branch Respiratory rate 2020-01-25 01:00:00 16 /min [facility] Body temperature 2020-01-24 22:09:00 37.11 Elodia [facility] Body height 2020-01-24 22:09:00 157.5 cm [facility] Body weight 2020-01-24 22:09:00 78.336 kg [facility] BMI 2020-01-24 22:09:00 31.59 kg/m2 [facility] Systolic blood 2019-06-02 19:00:00 126 mm[Hg] [facility] Diastolic blood 2019-06-02 19:00:00 81 mm[Hg] [facility] Heart rate 2019-06-02 19:00:00 86 /min [facility] Respiratory rate 2019-06-02 19:00:00 17 /min [facility] Oxygen saturation in 2019-06-02 19:00:00 96 /min [facility]ial blood by [place] [facility]xim[facility] Body temperature 2019-06-02 17:14:00 36.61 Elodia [facility] Body height 2019-06-02 17:14:00 157.5 cm Universi ty of [facility] Body weight 2019-06-02 17:14:00 74.844 kg Universi ty of [facility] BMI 2019-06-02 17:14:00 30.18 kg/m2 Universi ty of [facility] Systolic blood 2019-06-02 19:00:00 126 mm[Hg] Univer sity of pressure [facility] Diastolic blood 2019-06-02 19:00:00 81 mm[Hg] Unive rsity of [facility] Heart rate 2019-06-02 19:00:00 86 /min Universi ty of [facility] Respiratory rate 2019-06-02 19:00:00 17 /min [facility] O[facility] saturation in 2019-06-02 19:00:00 96 /min University Arterial blood by [facility] Pulse oximetry Branch Body temperature 2019-06-02 17:14:00 36.61 Elodia [facility] Body height 2019-06-02 17:14:00 157.5 cm [facility] [place] [facility] [place] Body weight 2019-06-02 17:14:00 74.844 kg Universi ty of [facility] BMI 2019-06-02 17:14:00 30.18 kg/m2 Universi ty [facility] Systolic blood 2021-10-15 17:34:00 121 mm[Hg] [facility] Diastolic blood 2021-10-15 17:34:00 69 mm[Hg] [facility] Heart rate 2021-10-15 17:34:00 68 /min [facility] Respiratory rate 2021-10-15 17:34:00 18 /min [facility] Oxygen saturation in 2021-10-15 17:34:00 100 /min [facility] Arterial blood by Medical nter Pulse oximetry Body temperature 2021-10-15 11:42:00 36.83 Elodia [facility] Body height 2021-10-15 11:42:00 157.5 cm [facility] Body weight 2021-10-15 11:42:00 83.915 kg [facility] BMI 2021-10-15 11:42:00 33.84 kg/m2 [facility] Procedures Procedure Date / Time Performing Clinician Source Performed CT BRAIN WITHOUT IV 2021-10-15 12:42:00 Elise Rice [facility] PHYSICIAN ORDERS 2021-08-13 05:01:00 Doctor Unassigned, No [facility] ASSIGNMENT OF BENEFITS 2021-07-16 14:15:53 Doctor Unassigned, No [facility] ASSIGNMENT OF BENEFITS 2021-06-18 14:59:31 Doctor Unassigned, No [facility] ULTRASOUND OF PELVIS 2020-08-24 00:00:00 [facility] OVARY TORSION 2020-07-23 19:10:59 [facility] W 2020-07-23 17:15:00 Megan Lyons [facility] HEPATIC FUNCTION PANEL 2020-07-23 16:49:00 LyonsMegan clark [facility] ([id number]) (ALB,T.PRO,BILI [facility] T,BU/BC,ALT,AST,ALK PHOS) BASIC METABOLIC PANEL 2020-07-23 16:49:00 [facility] Megan [facility] (NA, K, CL, CO2, Medical [place] GLUCOSE, BUN, CREATININE, CA) CBC WITH DIFF 2020-07-23 16:49:00 Vikas [facility] URINALYSIS 2020-07-23 16:49:00 Vikas [facility] POCT TEST 2020-07-23 16:48:[address] [facility] NOTICE OF PRIVACY 2020-07-23 16:32:51 Doctor Unassigned, No Univ [facility] PRACTICES [facility] CONSENT/REFUSAL FOR 2020-07-23 16:32:01 Doctor Unassigned, No [facility] HEAD WO CONTRAST 2020-04-27 19:40:14 Ann [facility] TROPONIN I 2020-04-27 18:41:[address] [facility] BASIC METABOLIC PANEL 2020-04-27 18:41:00 Ann Cardozo [facility] (NA, K, CL, CO2, Medical Branch GLUCOSE, BUN, CREATININE, CA) CBC WITH DIFF 2020-04-27 18:41:[address] [facility] HB ECG ROUTINE & RHYTHM 2020-04-27 17:58:58 Ann Cardozo [facility] Branch NOTICE OF PRIVACY 2020-04-27 17:21:19 Doctor Unassigned, No [facility] PRACTICES Name Medical Branch CONSENT/REFUSAL FOR 2020-04-27 17:21:03 Doctor Unassigned, No [facility] DIAGNOSIS AND TREATMENT Name Medical Branch TROPONIN I 2020-02-08 10:03:00 Josr [facility] BASIC METABOLIC PANEL 2020-02-08 10:03:00 Ruby Ovallesherine [facility] (NA, K, CL, CO2, Medical Branch GLUCOSE, BUN, CREATININE, CA) CBC WITH DIFF 2020-02-08 10:03:00 Josr [facility] TROPONIN I 2020-02-08 04:27:00 Josr [facility] COVID-19 (ID NOW RAPID 2020-02-07 22:40:00 Angelo Robles [facility] TESTING) Medical Branch MAGNESIUM 2020-02-07 22:22:00 Josr [facility] TROPONIN I 2020-02-07 22:22:00 Angelo Robles [facility] THYROID STIMULATING 2020-02-07 22:22:00 Sharon Ovalles [facility] HORMONE [facility] LIPID PANEL 2020-02-07 22:22:00 Josr [facility] ([id number])(TOTAL Medical Branch CHOLESTEROL, TRIGLYCERIDES, HDL) CT ABDOMEN PELVIS W 2020-02-07 21:28:58 Angleo Robles [facility] CONTRAST [facility] CT CHEST PULMONARY 2020-02-07 21:28:58 Angelo Robles [facility] ANGIOGRAM Medical Branch XR CHEST 1 VW 2020-02-07 20:36:36 Angelo Robles [facility] POCT TEST 2020-02-07 20:03:00 Angelo Robles [facility] URINALYSIS 2020-02-07 20:02:00 Angelo Robles [facility] LIPASE 2020-02-07 19:58:00 Travis Angelo [facility] TROPONIN I 2020-02-07 19:58:00 Angelo Robles [facility] HEPATIC FUNCTION PANEL 2020-02-07 19:58:00 Angelo Robles [facility] ([id number]) (ALB,T.PRO,BILI [facility] T,BU/BC,ALT,AST,ALK PHOS) BASIC METABOLIC PANEL 2020-02-07 19:58:00 Angelo Robles [facility] (NA, K, CL, CO2, Medical Branch GLUCOSE, BUN, CREATININE, CA) CBC WITH DIFF 2020-02-07 19:58:00 Angelo Robles [facility] PROTHROMBIN TIME / INR 2020-02-07 19:58:00 Angelo Robles [facility] ACTIVATED PARTIAL 2020-02-07 19:58:00 Angelo Robles [facility] THRMPLAS [facility] N-TERMINAL PRO-BNP 2020-02-07 19:58:[address] [facility] HB ECG ROUTINE & RHYTHM 2020-02-07 19:51:07 Angelo Robles [facility] CONSENT/REFUSAL FOR 2020-02-07 19:42:57 Doctor Unassigned, No Un [facility] DIAGNOSIS AND TREATMENT Name Medical Branch CT ABDOMEN PELVIS W 2020-01-24 23:32:59 Mark Armijo [facility] CONTRAST [facility] POCT TEST 2020-01-24 23:22:00 Mark Armijo [facility] LIPASE 2020-01-24 22:41:00 Mark Armijo [facility] COMP. METABOLIC PANEL 2020-01-24 22:41:00 Mark Armijo [facility] ([id number]) Medical Branch CBC WITH DIFF 2020-01-24 22:41:00 Mark Armijo [facility] URINALYSIS 2020-01-24 22:41:00 Mark Armijo [facility] NOTICE OF PRIVACY 2020-01-24 22:03:28 Doctor Unassigned, No [facility] Name [facility] CONSENT/REFUSAL FOR 2020-01-24 22:03:15 Doctor Unassigned, No [facility] [place] DIAGNOSIS AND TREATMENT Name [facility] CT ABDOMEN PELVIS W 2019-06-02 18:46:40 Candido Ramirez [facility] CONTRAST [facility] POCT TEST 2019-06-02 17:48:[address] [facility] LIPASE 2019-06-02 17:47:00 Candido Ramirez [facility] COMP. METABOLIC PANEL 2019-06-02 17:47:00 Candiod Ramirez [facility] ([id number]) [facility] CBC WITH DIFFERENTIAL 2019-06-02 17:47:00 Candido Ramirez [facility] URINALYSIS 2019-06-02 17:47:00 Candido Ramirez [facility] CONSENT/REFUSAL FOR 2019-06-02 17:08:56 Doctor Unassigned, No [facility] TREATMENT Name [facility] Gi Tract Capsule 2017-11-10 00:00:00 [facility] Medical Plan of Care Planned Activity Planned [...] Cessation Counseling and Screening (12+)] Future Scheduled 2022-04-[address] [facility] Test 00:00:00 (12+) [code = [facility] DEPRESSION SCREENING (12+)] Future Scheduled 2021-12-[address] [facility] Test 00:00:00 (#1) [code = [facility] INFLUENZA VACCINE (#1)] Future Scheduled 2021-12-[address] [facility] Test 00:00:00 (#1) [code = Medical Center INFLUENZA VACCINE (#1)] Future Scheduled 2021-12-[address] [facility] Test 00:00:00 (#1) [code = [facility] INFLUENZA VACCINE (#1)] Future Scheduled 2021-04-[address] [facility] Test 00:00:00 (12+) [code = [facility] DEPRESSION SCREENING (12+)] Future Scheduled 2021-04-[address] [facility] Test 00:00:00 (12+) [code = [facility] DEPRESSION SCREENING (12+)] Future Scheduled [address] [facility] 00:[facility]00 [facility]procedure) [code = 121111787] Future Scheduled [address] [facility] Test 00:00:00 [facility] cervix (procedure) [code = 456329696] Future Scheduled [address] [facility] Test 00:00:00 [facility] cervix (procedure) [code = 345708668] Future Scheduled [address] [facility] Test 00:00:00 (procedure) [code = [facility] 83991481] Future Scheduled [address] [facility] Test 00:00:00 (procedure) [code = [facility] 47359874] Future Scheduled [address] [facility] Test 00:00:00 (procedure) [code = [facility] 57499859] Future Scheduled 1999-10-09 DTAP/TDAP/TD VACCINES CH I [...] Date/Time Type Type Clinicians Facility Department ID 2022-04-02 Outpatient [facility] [id number] [place] 13:15:41 [id number] [facility] 2021-02-10 Emergency [facility] [id number] Univers 12:15:04 ity [facility] 2021-02-09 Emergency [facility] [id number] Univers 17:33:49 ity [facility] 2021-02-09 Emergency [facility] [id number] Univers 01:23:23 ity [facility] 2021-02-08 Emergency [facility] [id number] [facility]-21 2022-05-21 Outpatient [facility] [id number] [place] 09:30:00 09:30:00 ANGEL Key [facility] 2021-10-15 2021-10-15 Emergency [id number] [facility] 14:24:00 17:37:00 ELISE 2021-10-15 2021-10-[address] [id number] 14:24:00 17:37:00 [facility] 2021-10-15 2021-10-15 Emergency Jagjit [facility] [id number] 14:24:00 17:37:00 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 Aide Teacher Luis, Adc Lab Main [facility] 1.2.8 40.114 [id number] Univers 12:15:00 12:30:00 Visit Ariel Britt [id number] 0 ity [id number] [phone] Ga dical NAL [address] [place] [address] 2021-08-13 2021-08-13 [facility] [id number] Univers 12:15:00 12:15:00 ARIEL ity [facility] 2021-08-13 2021-08-13 Orders Doctor LUÍS [id number] Univers 00:00:00 00:00:00 Only Unassigned, SHARON [id number] ity of [place] [facility] [id number] Craig as [phone] [address] 2021-07-16 2021-07-16 Paraprofessional Aide Teacher Luis, Adc Lab Main [facility] 1.2.8 40.114 [id number] Univers 09:30:00 09:45:00 Visit Paul Sams [id number] [id number] [id number] Ga dical NAL [address] [place] [address] 2021-07-16 2021-07-16 Outpatient [facility] [id number] Univers 09:30:00 09:30:00 PAUL itgraciela [facility] 2021-07-16 2021-07-16 Orders Doctor LUÍS 1.2.840.114 [id number] Univers 00:00:00 00:00:00 Only Unassigned, SHARON [id number] ity of [place] [facility] [id number] Craig as [phone] [address] 2021-06-18 2021-06-18 Outpatient R FLAQUITA [facility] [id number] Univers 08:45:00 10:27:48 PAUL [facility] 2021-06-18 2021-06-18 Paraprofessional Aide Teacher Luis, Adc Lab Main [facility] 1.2.8 40.114 [id number] Univers 08:45:00 09:00:00 Visit Paul Sams [id number] [place]y [id number] [id number] Ga dic[address] 2021-06-18 2021-06-18 Orders Doctor LUÍS 1.2.840.114 [id number] Univers 00:00:00 00:00:00 Only Unassigned, SHARON [id number] ity of [place] [facility] [id number] Craig as [phone] [address] 2020-08-24 2020-08-24 Outpatient GC_RONAL_ PRIV PRIV [id number] [facility] 02:56:00 02:56:00 Lduwin [id number] Medic al 2020-08-24 2020-08-24 Outpatient TAYLOR Pirece [id number] 00:00:00 00:00:00 Alex [id number] Jay [id number] 2020-08-24 2020-08-24 Alex VAZQUEZ HI - [facility] 14 [facility] 00:00:00 00:00:00 Jay [facility] - Medic KAREN Colmenares_ MD: [id number] [facility]* [place], [address], [place] [address] , Ph. 2020-07-23 2020-07-23 Emergency Lyons, [facility] 1.2.840.114 [id number] 11:40:00 15:16:00 Megan Edward [id number] [place] [id number] [place] [id number] [id number] 2020-07-23 2020-07-23 Emergency Lyons, [facility] 1.2.840.114 [id number] [facility] 11:40:00 15:16:00 Meganleeann Leon [id number] i ty of [place] [id number] [facility] [id number] [address] 2020-04-27 2020-04-27 Emergency Levi, [facility] 1.2.840.114 [id number] 11:25:00 18:21:00 Ann Leon [id number] [place] [address] [place] [address] [id number] [facility] 2020-04-27 2020-04-27 Emergency Levi, [facility] 1.2.840.114 [id number] [facility] 11:25:00 18:21:00 Ann Leon [id number] ity of [place] 4.2.7.2.6 [facility] [id number] [address] 2020-02-07 2020-02-08 Emergency Angelo Robles [facility] 1.2.840. 114 [id number] 14:46:00 14:26:00 Naun Bush [id number] [place] [id number] [place] [id number] [facility] 2020-02-07 2020-02-08 Emergency Angelo Robles [place] 1.2.840. 114 [id number] [facility] 14:46:00 14:26:00 Naun Bush [id number] ity of [place] 4.2.7.2.[address] [place] [id number] 2020-01-24 2020-01-24 Emergency Bubba, [facility] [id number] 17:12:00 21:15:00 Mark Leon [id number] [place] [id number] [place] [id number] [facility] 2020-01-24 2020-01-24 Emergency Armijo, [facility] [id number] [facility] 17:12:00 21:15:00 Mark [place] [id number] i ty of [place] [id number] [facility] [id number] [address] 2020-01-24 2020-01-24 Orders Doctor LUÍS 1.2.840.114 [id number] 00:00:00 00:00:00 Only Unassigned, SHARON [id number] [place] [facility] 4.2.7.2.68 [id number] [facility] 2020-01-24 2020-01-24 Orders Doctor LUÍS 1.2.840.114 [id number] [facility] 00:00:00 00:00:00 Only Unassigned, SHARON [id number] ity of [place] [facility] [id number] [facility] [phone] [address] 2019-06-02 2019-06-02 Emergency [facility] 1.2.840.114 [id number] 11:18:34 14:43:00 Candidograciela [place] [id number] [place] [id number] [place] [id number] [facility] 2019-06-02 2019-06-02 [facility] 1.2.840.114 [id number] Univers 11:18:34 14:43:00 Candido B [place] [id number] i ty of [place] [id number] [facility] [id number] [address] 2019-06-02 2019-06-02 Emergency X JAMES, [facility] ERT [id number] Univers 11:18:34 14:43:00 CANDIDO ity of [facility] Results Test Test Test Results Result Source Description Time Comments Comments CT, BRAIN, 2021-10 Unlisted WITHOUT -05 Reason for CONTRAST 12:56:0 Exam - [facility] 0 Click Yes CENTERName: Mallory JAMES : 1980 Sex: Reason F Below->No FINAL [...] University of TORSION -12 torsion. Small suspected [facility] 19:26:2 fundal uterine fibroid versus Branch 5 [...] There is no evidence of intraperitoneal fluid. [facility] [facility], Radiant Results Inft User - 07/23/2020 2:27 [...] PELVIS W -12 radiographic findings to [facility] CONTRAST 17:59:0 explain patient's pain in the [...] PELVISLiver: Hepatic dome is not fully within [id number]-jf-ygdw. Mild focal fattyinfiltration at the falciform ligament. [...] PELVISLiver: Hepatic dome is not fully within gsvbw-wl-bqcg. Mild focal fattyinfiltration at the falciform ligament. [...] Interpretation Comme nts NA (test code = 6245477193) 139 mmol/L 135-145 K (test code = 1457627988) 3.9 mmol/L 3.5-5.0 CL (test code = 6581611379) 102 mmol/L 98-108 CO2 TOTAL (test code = 29 mmol/L 23-31 1295983654) AGAP (test code = 0812875884) 2-16 BUN (test code = 4630791980) 13 mg/dL 7-23 GLUCOSE (test code = 7119894116) 98 mg/dL 70-110 CREATININE (test code = 0.76 mg/dL 0.50-1.04 2265993241) CALCIUM (test code = 4411776366) 9.5 mg/dL 8.6-10.6 eGFR (test code = 1920001983) mL/min/1.73m2 JOSH (test code = JOSH) Association [...] or urine or abnormalities in imaging tests). [facility] (ALB, T.PRO, BILI T, BU/BC, ALT, AST, ALK PHOS)2020-07-23 17:09:38 Test Item Value Reference Range Interpretation Comments TOTAL BILI (test code = 8634970143) 0.4 mg/dL 0.1-1.1 BILI UNCON (test code = 0420509018) 0.2 mg/dL 0.1-1.1 BILI CONJ (test code = 7035924293) 0.0 mg/dL 0.0-0.3 T PROTEIN (test code = 8146439241) 6.9 g/dL 6.3-8.2 ALBUMIN (test code = 5242892940) 4.3 g/dL 3.5-5.0 ALK PHOS (test code = 6811280600) 113 U/L 34-122 ALTv (test code = 1742-6) 13 U/L 5-35 AST(SGOT) (test code = 4944490247) 29 U/L 13-40 Lab Interpretation (test code = Normal 87947-9) [facility]ennial[facility]inalysis2021-04-12 17:03:52 Test Item Value Reference Range Interpretation Comments APPEARANCE (test code = Clear Clear 3181723456) COLOR (test code = Straw Yellow A 9712681404) PH (test code = 4.8-8.0 3823469260) SP GRAVITY (test code = 1.003-1.030 6977202243) GLU U QUAL (test code = Normal Normal 7661398440) BLOOD (test code = Negative Negative 1441419891) KETONES (test code = Negative Negative 2952188043) PROTEIN (test code = Negative Negative 2887-8) UROBILIN (test code = Normal Normal 9898119445) BILIRUBIN (test code = Negative Negative 3066328747) NITRITE (test code = Negative Negative 7334060472) LEUK ROXANE (test code = 25/uL Negative A 7789216133) RBC/HPF (test code = See_Comment [Autom ated message] 6020710376) The system [employer] generated this result transmitted ref erence range: 0 - 3 HP F. The reference range was not used to int erpret this result as normal/abnormal . WBC/HPF (test code = See_Comment [Autom ated message] 4898351642) The system [employer] generated this result transmitted ref erence range: 0 - 5 HP F. The reference range was not used to int erpret this result as normal/abnormal . BACTERIA (test code = Few Negative A 0199370995) SQ EPITH (test code = HPF 3314444416) Lab Interpretation (test Abnormal code = 75432-0) [facility] with Mcchhoillwsf3000-74-35 16:55:13 Test Item Value Reference Range Interpretation Comments WBC (test code = See_Comment H [Automated 7590-2) message] The sy stem which generated this result transmitted reference range : 4.30 - 11.10 10*3/?L. The reference range was not used to interpret this result as normal/abnormal . RBC (test code = See_Comment [Automated 489-8) message] The sy stem which generated this [...] RDW-SD (test code = 42.4 fL 39.0-49.9 34690-6) RDW-CV (test code = 12.9 % 12.0-15.5 788-0) PLT (test code = See_Comment [Automated 777-3) message] The sy stem which generated this result transmitted reference range : 166 - 358 10*3/ ?L. The reference r susan was not used to interpret this result as normal/abnormal . MPV (test code = 11.5 fL 9.5-12.9 49098-4) NRBC/100 WBC (test See_Comment [Automat ed code = 2948510410) message] The system which generated this result transmitted reference range : 0.0 - 10.0 /100 WBCs. The refer ence range was not u sed to interpret th is result as normal/abnormal . NRBC x10^3 (test code <0.01 See_Comment [Auto mated = 1257805858) message] The s ystem which generated this result transmitted reference range : 10*3/?L. The reference range was not used to interpret this result as normal/abnormal . GRAN MAT (NEUT) % 65.4 % (test code = 770-8) IMM GRAN % (test code 0.40 % = 5855639114) LYMPH % (test code = 24.9 % 736-9) MONO % (test code = 7.7 % 5905-5) EOS % (test code = 1.1 % 713-8) BASO % (test code = 0.5 % 706-2) GRAN MAT x10^3(ANC) 7.44 10*3/uL 1.88-7.09 H (test code = 1806204890) IMM GRAN x10^3 (test 0.05 10*3/uL 0.00-0.06 code = 9084820933) LYMPH x10^3 (test code 2.83 10*3/uL 1.32-3.29 = 731-0) MONO x10^3 (test code 0.88 10*3/uL 0.33-0.92 = 742-7) EOS x10^3 (test code = 0.12 10*3/uL 0.03-0.39 711-2) BASO x10^3 (test code 0.06 10*3/uL 0.01-0.07 = 704-7) Lab Interpretation Abnormal (test code = 15623-5) [facility]ennialPOMD Jtdb2051-36-45 16:48:00 Test Item Value Reference Range Interpretation Comments POCT PREG (test code = 1605) negative On board controls acceptable with C present Line (test code = 3574) Lab Interpretation (test code = Normal 37676-9) [facility] Head W/O Dhczxyxi2914-92-39 19:42:08 No acute intracranial abnormality. CT HEAD [...] paranasal sinuses and mastoidair cells are clear. [facility], Radiant ResultsInft User - 04/27/2020 1:43 PM [...] and mastoidair cells are clear.IMPRESSIONNo acute intracranial abnormality.[facility]ennialTroponin I 2020-04-27 19:09:00 Test Item Value Reference Range Interpretation Comments TROPONIN I (test <0.012 See_Comment [Automated code = 1263372623) message] The system which generated this result [...] ? Lab Interpretation Normal (test code = 43833-0) [facility] Met[facility] (NA, K, CL, CO2, GLUCOSE, BUN, CREATININE, CA)2020-04-27 18:58:00 Test Item Value Reference Range Interpretation Comments NA (test code = 139 mmol/L 135-145 4981179350) K (test code = 4.1 mmol/L 3.5-5 5759192891) CL (test code = 98 mmol/L 98-108 1855606156) CO2 TOTAL (test code = 32 mmol/L 23-31 H 6302550502) AGAP (test code = 2-16 5578515674) BUN (test code = 11 mg/dL 7-23 9423552944) GLUCOSE (test code = 86 mg/dL 70-110 7996760120) CREATININE (test code = 0.78 mg/dL 0.5-1.04 3107886509) CALCIUM (test code = 10.2 mg/dL 8.6-10.6 6169978052) eGFR Calculation mL/min/1.73m2 (Non-) (test code = 8983817854) eGFR Calculation mL/min/1.73m2 () (test code = 3473101066) JOSH (test code = JOSH) Association of [...] tests). Lab Interpretation Abnormal (test code = 49243-8) [facility] with Qckudjflibnh0689-77-54 18:54:00 Test Item Value Reference Range Interpretation Comments WBC (test code = See_Comment [Automated 6690-2) message] The sy stem which [...] RDW-SD (test code = 42.5 fL 39-49.9 61105-4) RDW-CV (test code = 12.8 % 12-15.5 788-0) PLT (test code = See_Comment [Automated 777-3) message] The sy stem which generated this result transmitted reference range : 166 - 358 10*3/ ?L. The reference r susan was not used to interpret this result as normal/abnormal . MPV (test code = 11.9 fL 9.5-12.9 35964-5) NRBC/100 WBC (test See_Comment [Automat ed code = 1162982600) message] The system which generated this result transmitted reference range : 0.0 - 10.0 /100 WBCs. The refer ence range was not u sed to interpret th is result as normal/abnormal . NRBC x10^3 (test code <0.01 See_Comment [Auto mated = 8251653539) message] The s ystem which generated this result transmitted reference range : 10*3/?L. The reference range was not used to interpret this result as normal/abnormal . GRAN MAT (NEUT) % 62.6 % (test code = 770-8) IMM GRAN % (test code 0.20 % = 7151463622) LYMPH % (test code = 26.7 % 736-9) MONO % (test code = 9.0 % 5905-5) EOS % (test code = 1.1 % 713-8) BASO % (test code = 0.4 % 706-2) GRAN MAT x10^3(ANC) 5.07 10*3/uL 1.88-7.09 (test code = 8258685122) IMM GRAN x10^3 (test <0.03 0-0.06 code = 8856534205) LYMPH x10^3 (test code 2.16 10*3/uL 1.32-3.29 = 731-0) MONO x10^3 (test code 0.73 10*3/uL 0.33-0.92 = 742-7) EOS x10^3 (test code = 0.09 10*3/uL 0.03-0.39 711-2) BASO x10^3 (test code 0.03 10*3/uL 0.01-0.07 = 704-7) Lab Interpretation Abnormal (test code = 20750-7) [id number] 11:05:00 Test Item Value Reference Range Interpretation Comments TROPONIN I (test <0.012 See_Comment [Automated code = 0684767935) message] The system which generated this result [...] ? Lab Interpretation Normal (test code = 46704-7) [facility] Metabolic Panel (NA, K, CL, CO2, GLUCOSE, BUN, CREATININE, CA)2020-02-08 10:55:00 Test Item Value Reference Range Interpretation Comments NA (test code = 138 mmol/L 135-145 9472758468) K (test code = 4.1 mmol/L 3.5-5 5423950655) CL (test code = 104 mmol/L 98-108 7631634477) CO2 TOTAL (test code = 26 mmol/L 23-31 6383472250) AGAP (test code = 2-16 7212352877) BUN (test code = 14 mg/dL 7-23 0011170524) GLUCOSE (test code = 94 mg/dL 70-110 7822496556) CREATININE (test code 0.91 mg/dL 0.5-1.04 = 7122466616) CALCIUM (test code = 9.0 mg/dL 8.6-10.6 5367250950) eGFR Calculation mL/min/1.73m2 (Non-) (test code = 8966622530) eGFR Calculation mL/min/1.73m2 () (test code = 7445179930) JOSH (test code = JOSH) Association of [...] or urine or abnormalities in imaging tests). [facility] with Hxfmhkbghtfr8060-29-53 10:26:00 Test Item Value Reference Range Interpretation Comments WBC (test code = See_Comment [Automated message] 1390-2) The system [employer] generated this result transmitted ref erence range: 4.30 - 1 1.10 10*3/?L. The re ference range was not u sed to interpret this result as normal/abnor mal. RBC (test code = See_Comment [Automated message] 629-8) The system [employer] generated this result transmitted ref erence range: [...] RDW-SD (test code 45.3 fL 39-49.9 = 42039-0) RDW-CV (test code 13.4 % 12-15.5 = 788-0) PLT (test code = See_Comment [Automated message] 867-3) The system [employer] generated this result transmitted ref erence range: 166 - 35 8 10*3/?L. The re ference range was not u sed to interpret this result as normal/abnor mal. MPV (test code = 11.9 fL 9.5-12.9 90524-9) NRBC/100 WBC (test See_Comment [Automat ed message] code = 9716916812) The syste m which generated this result transmitted ref erence range: 0.0 - 10 .0 /100 WBCs. The refer ence range was not u sed to interpret this result as normal/abnor mal. NRBC x10^3 (test <0.01 See_Comment [Automated message] code = 0809054020) The syste m which generated this result transmitted ref erence range: 10*3/?L. The reference range was not used to interpr et this result as normal/abnormal . GRAN MAT (NEUT) % 63.9 % (test code = 770-8) IMM GRAN % (test 0.40 % code = 1492528318) LYMPH % (test code 26.9 % = 736-9) MONO % (test code 6.7 % = 5905-5) EOS % (test code = 1.6 % 713-8) BASO % (test code 0.5 % = 706-2) GRAN MAT 4.94 10*3/uL 1.88-7.09 x10^3(ANC) (test code = 3953552249) IMM GRAN x10^3 0.03 10*3/uL 0-0.06 (test code = 7191383931) LYMPH x10^3 (test 2.08 10*3/uL 1.32-3.29 code = 731-0) MONO x10^3 (test 0.52 10*3/uL 0.33-0.92 code = 742-7) EOS x10^3 (test 0.12 10*3/uL 0.03-0.39 code = 711-2) BASO x10^3 (test 0.04 10*3/uL 0.01-0.07 code = 704-7) [facility] CentennialRodo [id number] 05:34:00 Test Item Value Reference Range Interpretation Comments TROPONIN I (test <0.012 See_Comment [Automated code = 8630666930) message] The system which generated this result [...] ? Lab Interpretation Normal (test code = 74989-5) [facility]ennialThyroid Stimulating Hormone (TSH)2020-02-08 02:02:00 Test Item Value Reference Range Interpretation Comments TSH (test code = See_Comment [Automated message] 4865824694) The system [employer] generated this result transmitted ref erence range: 0.45 - 4 .70 mIU/L. The refe rence range was not u sed to interpret this result as normal/abnor mal. Lab Interpretation (test Normal code = 82106-1) [facility] CentennialMagnesium [id number] 01:31:00 Test Item Value Reference Range Interpretation Comments MAGNESIUM (test code = 0163393086) 2.1 mg/dL 1.7-2.4 Lab Interpretation (test code = Normal 89842-8) [facility]ennialLipid Panel (Total Cholesterol, Triglycerides, HDL)2020-02-08 01:31:00 Test Item Value Reference Range Interpretation Comments CHOL (test code = 220 mg/dL 120-200 H 5352201020) HDL (test code = 44 mg/dL >50 L 3147779794) HDLC RATIO (test code = See_Comment H [Au tomated message] 0379226388) The system [employer] generated this result transmit alistair reference range : <=4.5. The refe rence range was not u sed to interpret th is result as normal/abnormal . TRIG (test code = 179 mg/dL 30-170 H 0412915482) LDL CHOL (test code = 140 mg/dL See_Comment [Auto mated message] 39698-7) The system [employer] generated this result transmit alistair reference range : <=160. The refe rence range was not u sed to interpret th is result as normal/abnormal . VLDL (test code = 36 mg/dL 5-60 2635735604) Lab Interpretation (test Abnormal code = 31764-2) [facility]ennialCOVID-19 (ID NOW RAPID TESTING)2020-02-07 23:26:00 Test Item Value Reference Range Interpretation Comments SARS-CoV-2 Rapid ID NOW Not Detected Not Detected (test code = 89544-3) JOSH (test code = JOSH) ID NOW COVID-19 Assay is an isothermal nucleic acid amplification test intended for the qualitative detection of nucleic acid from SARS-CoV-2 viral RNA in nasopharyngeal ([employer]) specimens. It is used under Emergency Use [...] indicated. Lab Interpretation Normal (test code = 50151-1) [facility] CentennialTROPONIN [id number] 22:52:00 Test Item Value Reference Range Interpretation Comments TROPONIN I (test <0.012 See_Comment [Automated code = 9419520811) message] The system which generated this result [...] ? Lab Interpretation Normal (test code = 09609-8) [facility] CentennialCT ABDOMEN PELVIS W [id number] 21:53:30CT Abdomen and Pelvis with intravenous contrast. [...] No acute intra-abdominal or pelvic abnormalities detected. [facility], Radiant Results Inft User - 02/07/2020 4:54 [...] Unremarkable.CONCLUSION: No acute intra-abdominal or pelvic abnormalities detected.[facility] CentennialCT CHEST PULMONARY [id number] 21:48:38 No acute or chronic pulmonary embolus [...] reviewed this study and agree with theabove report.[facility] CentennialUrinalysis2020-10-27 20:52:00 Test Item Value Reference Range Interpretation Comments APPEARANCE (test code = Clear Clear 1235664259) COLOR (test code = Straw Yellow A 1225687026) PH (test code = 4.8-8.0 2968951141) SP GRAVITY (test code = 1.003-1.030 3121384466) GLU U QUAL (test code = Normal Normal 6880624716) BLOOD (test code = Negative Negative 4152283509) KETONES (test code = Negative Negative 8448184260) PROTEIN (test code = Negative Negative 2887-8) UROBILIN (test code = Normal Normal 0350253310) BILIRUBIN (test code = Negative Negative 4065411165) NITRITE (test code = Negative Negative 6151657766) LEUK ROXANE (test code = Negative Negative 8566533259) RBC/HPF (test code = See_Comment [Autom ated message] 6643818989) The system [employer] generated this result transmitted ref erence range: 0 - 3 HP F. The reference range was not used to int erpret this result as normal/abnormal . WBC/HPF (test code = See_Comment [Autom ated message] 9576053508) The system [employer] generated this result transmitted ref erence range: 0 - 5 HP F. The reference range was not used to int erpret this result as normal/abnormal . BACTERIA (test code = Few Negative A 4314241844) MUCOUS (test code = Slight Negative LPF A 0062144698) SQ EPITH (test code = HPF 6767787601) Lab Interpretation (test Abnormal code = 06515-6) [facility] 1 Maqv0891-05-39 20:38:53HISTORY: Chest pain. TECHNIQUE: Portable AP erect view of the chest is obtained. No prior cheststudyavailable for comparison. FINDINGS: No acute pneumonia. No pneumothorax or pleural effusion orpulmonary congestion detected. Cardiac size is within normal limits. CONCLUSIONS: No signs of acute cardiopulmonary disease.[facility], Radiant Results Inft User - 02/07/2020 3:40 PM CDTHISTORY: Chest pain.TECHNIQUE: Portable AP erect view of the chest is obtained. No prior cheststudy available for comparison.FINDINGS: No acute pneumonia. No pneumothorax or pleural effusion orpulmonary congestion detected. Cardiac size is within normal limits. CONCLUSIONS: No signs of acute cardiopulmonary disease. [facility] [id number] 20:36:00 Test Item Value Reference Range Interpretation Comments TROPONIN I (test <0.012 See_Comment [Automated code = 2308967955) message] The system which generated this result [...] ? Lab Interpretation Normal (test code = 40582-0) [facility] CentennialN-TERMINAL [id number]-[id number] 20:33:00 Test Item Value Reference Range Interpretation Comments NT-proBNP (test code 53 pg/mL See_Comment [Autom ated = 7523241526) message] The system which generated this result transmitted reference range : <=125. The reference range was not used to interpret this result as normal/abnormal . JOSH (test code = JOSH) Biotin has been reported to cause a negative bias, interpret results relative to patient's use of biotin. Lab Interpretation Normal (test code = 26790-4) [facility] CentennialaPTT2020-10-27 20:29:00 Test Item Value Reference Range Interpretation Comments APTT Patient (test See_Comment [Automat ed code = 3173-2) message] The system which generated this result transmitted reference range : 23 - 38 Seconds . The reference range was not used to interpr et this result as normal/abnormal . JOSH (test code = JOSH) The [facility] patient population mean normal value for aPTT is 30 seconds. Lab Interpretation Normal (test code = 47130-7) [facility] CentennialProthrombin Time (PT) / [id number] 20:27:00 Test Item Value Reference Range Interpretation Comments PROTIME PATIENT (test See_Comment [Auto mated message] code = 5964-2) The system [employer] generated this result transmitted ref erence range: 12.0 - 1 4.7 Seconds. The re ference range was not u sed to interpret this result as normal/abnor mal. INR (test code = 6301-6) Nor mal INR <1.1; Warfarin Therap eutic range 2.0 to 3. 0 or 2.5 to 3.5, dep ending upon the indica tions. Lab Interpretation (test Normal code = 81341-3) [facility] (NA, K, CL, CO2, GLUCOSE, BUN, CREATININE, CA)2020-02-07 20:24:00 Test Item Value Reference Range Interpretation Comments NA (test code = 138 mmol/L 135-145 8067120878) K (test code = 3.9 mmol/L 3.5-5 2771738481) CL (test code = 98 mmol/L 98-108 2271833078) CO2 TOTAL (test code = 32 mmol/L 23-31 H 3993383395) AGAP (test code = 2-16 2001680270) BUN (test code = 13 mg/dL 7-23 7945050211) GLUCOSE (test code = 103 mg/dL 70-110 9315304890) CREATININE (test code = 1.33 mg/dL 0.5-1.04 H 1327593410) CALCIUM (test code = 10.0 mg/dL 8.6-10.6 9815040768) eGFR Calculation mL/min/1.73m2 (Non-) (test code = 0740039855) eGFR Calculation mL/min/1.73m2 () (test code = 0748061695) JOSH (test code = JOSH) Association of [...] tests). Lab Interpretation Abnormal (test code = 68326-0) [facility]ennialHepatic Function Panel (ALB, T.PRO, BILI T, BU/BC, ALT, AST, ALK PHOS)2020-02-07 20:24:00 Test Item Value Reference Range Interpretation Comments TOTAL BILI (test code = 7923658156) 0.4 mg/dL 0.1-1.1 BILI UNCON (test code = 4043826803) 0.3 mg/dL 0.1-1.1 BILI CONJ (test code = 2636365152) 0.0 mg/dL 0-0.3 T PROTEIN (test code = 1906746564) 7.4 g/dL 6.3-8.2 ALBUMIN (test code = 4470883824) 4.4 g/dL 3.5-5 ALK PHOS (test code = 4182854200) 99 U/L 34-122 ALTv (test code = 1742-6) 16 U/L 5-35 AST(SGOT) (test code = 0536405497) 19 U/L 13-40 Lab Interpretation (test code = Normal 18044-3) [facility] CentennialLipase Kregt9291-25-63 20:24:00 Test Item Value Reference Range Interpretation Comments LIPASE (test code = 5291230904) 393 U/L 0-220 H Lab Interpretation (test code = Abnormal 94279-3) [facility]ennialCBC with Afznaqdkcviy9162-42-17 20:19:00 Test Item Value Reference Range Interpretation Comments WBC (test code = See_Comment [Automated message] 6690-2) The system [employer] generated this result transmitted ref erence range: 4.30 - 1 1.10 10*3/?L. The re ference range was not u sed to interpret this result as normal/abnor mal. RBC (test code = See_Comment [Automated message] 649-8) The system [employer] generated this result transmitted ref erence range: [...] RDW-SD (test code 43.5 fL 39-49.9 = 88246-2) RDW-CV (test code 13.2 % 12-15.5 = 788-0) PLT (test code = See_Comment [Automated message] 587-3) The system [employer] generated this result transmitted ref erence range: 166 - 35 8 10*3/?L. The re ference range was not u sed to interpret this result as normal/abnor mal. MPV (test code = 12.1 fL 9.5-12.9 26370-2) NRBC/100 WBC (test See_Comment [Automat ed message] code = 4965810970) The syste [place] which generated this result transmitted ref erence range: 0.0 - 10 .0 /100 WBCs. The refer ence range was not u sed to interpret this result as normal/abnor mal. NRBC x10^3 (test <0.01 See_Comment [Automated message] code = 3527629021) The syste m which generated this result transmitted ref erence range: 10*3/?L. The reference range was not used to interpr et this result as normal/abnormal . GRAN MAT (NEUT) % 62.9 % (test code = 770-8) IMM GRAN % (test 0.50 % code = 2627992888) LYMPH % (test code 26.9 % = 736-9) MONO % (test code 7.8 % = 5905-5) EOS % (test code = 1.2 % 713-8) BASO % (test code 0.7 % = 706-2) GRAN MAT 6.08 10*3/uL 1.88-7.09 x10^3(ANC) (test code = 2099285114) IMM GRAN x10^3 0.05 10*3/uL 0-0.06 (test code = 5813808602) LYMPH x10^3 (test 2.61 10*3/uL 1.32-3.29 code = 731-0) MONO x10^3 (test 0.76 10*3/uL 0.33-0.92 code = 742-7) EOS x10^3 (test 0.12 10*3/uL 0.03-0.39 code = 711-2) BASO x10^3 (test 0.07 10*3/uL 0.01-0.07 code = 704-7) [facility]ennialPOMD Qoqb4425-78-86 20:03:00 Test Item Value Reference Range Interpretation Comments POCT PREG (test code = 1605) Negative On board controls acceptable with Present C Line (test code = 3574) POCT PREG LOT # (test code = 3575) [id number] POCT PREG TEST DATE (test 07/11/2021 code = 3576) Lab Interpretation (test code = Normal 07878-5) [facility] ABDOMEN PELVIS W [id number] 00:58:03Impression: 1. Bilateral pyelonephritis.2. Mild right renal [...] cortical scarring.3. Mild hepatomegaly.RL: 460End of Report UnB[facility] PflugervillePOCT TEST 2020-01-24 23:22:00 Test Item Value Reference Range Interpretation Comments POCT PREG (test code = 1605) negative On board controls acceptable with present C Line (test code = 3574) POCT PREG LOT # (test code = 3575) [id number] POCT PREG TEST DATE (test 2020-11-10 code = 3576) Lab Interpretation (test code = Normal 47447-5) [facility]ennialURINALYSIS2020-10-13 23:21:00 Test Item Value Reference Range Interpretation Comments APPEARANCE (test code = Hazy Clear A 2450082823) COLOR (test code = Yellow Yellow 5929794056) PH (test code = 4.8-8.0 2659236998) SP GRAVITY (test code = 1.003-1.030 4154146700) GLU U QUAL (test code = Normal Normal 0335483454) BLOOD (test code = Negative Negative 0266136870) KETONES (test code = Negative Negative 6201207540) PROTEIN (test code = Negative Negative 2887-8) UROBILIN (test code = Normal Normal 2483324320) BILIRUBIN (test code = Negative Negative 9786891483) NITRITE (test code = Negative Negative 8538324581) LEUK ROXANE (test code = 250/uL Negative A 6907567303) RBC/HPF (test code = See_Comment [Autom ated message] 3148695418) The system [employer] generated this result transmitted ref erence range: 0 - 3 HP F. The reference range was not used to int erpret this result as normal/abnormal . WBC/HPF (test code = See_Comment H [Autom ated message] 8543474559) The system [employer] generated this result transmitted ref erence range: 0 - 5 HP F. The reference range was not used to int erpret this result as normal/abnormal . BACTERIA (test code = Moderate Negative A 5149399173) MUCOUS (test code = Slight Negative LPF A 0802320939) SQ EPITH (test code = HPF 1688051350) Lab Interpretation (test Abnormal code = 13416-2) [facility] MET[facility]OLIC PANEL (76563)2020-01-24 23:01:00 Test Item Value Reference Range Interpretation Comments NA (test code = 139 mmol/L 135-145 5898668618) K (test code = 4.0 mmol/L 3.5-5 8985842549) CL (test code = 98 mmol/L 98-108 3193940038) CO2 TOTAL (test code = 30 mmol/L 23-31 7985746675) AGAP (test code = 2-16 3086653983) BUN (test code = 13 mg/dL 7-23 0248659689) GLUCOSE (test code = 105 mg/dL 70-110 7436305134) CREATININE (test code 1.00 mg/dL 0.5-1.04 = 5357519351) TOTAL BILI (test code 0.5 mg/dL 0.1-1.1 = 6008516425) CALCIUM (test code = 10.4 mg/dL 8.6-10.6 6303708079) T PROTEIN (test code = 7.7 g/dL 6.3-8.2 9415669501) ALBUMIN (test code = 4.5 g/dL 3.5-5 2689986137) ALK PHOS (test code = 118 U/L 34-122 3039008749) ALTv (test code = 30 U/L 5-35 1742-6) AST(SGOT) (test code = 22 U/L 13-40 3081014140) eGFR Calculation mL/min/1.73m2 (Non-) (test code = 0148280998) eGFR Calculation mL/min/1.73m2 () (test code = 2146722020) JOSH (test code = JOSH) Association of [...] or urine or abnormalities in imaging tests). [facility]2020-10-13 23:00:00 Test Item Value Reference Range Interpretation Comments LIPASE (test code = 1939292717) 125 U/L 0-220 Lab Interpretation (test code = Normal 78989-9) [facility] WITH [id number] 22:55:00 Test Item Value Reference Range Interpretation Comments WBC (test code = See_Comment [Automated message] 6690-2) The system [employer] generated this result transmitted ref erence range: 4.30 - 1 1.10 10*3/?L. The re ference range was not u sed to interpret this result as normal/abnor mal. RBC (test code = See_Comment [Automated message] 789-8) The system [employer] generated this result transmitted ref erence range: [...] RDW-SD (test code 43.5 fL 39-49.9 = 21039-7) RDW-CV (test code 13.3 % 12-15.5 = 788-0) PLT (test code = See_Comment [Automated message] 777-3) The system [employer] generated this result transmitted ref erence range: 166 - 35 8 10*3/?L. The re ference range was not u sed to interpret this result as normal/abnor mal. MPV (test code = 11.6 fL 9.5-12.9 51741-9) NRBC/100 WBC (test See_Comment [Automat ed message] code = 7741727184) The syste m which generated this result transmitted ref erence range: 0.0 - 10 .0 /100 WBCs. The refer ence range was not u sed to interpret this result as normal/abnor mal. NRBC x10^3 (test <0.01 See_Comment [Automated message] code = 7644882124) The syste m which generated this result transmitted ref erence range: 10*3/?L. The reference range was not used to interpr et this result as normal/abnormal . GRAN MAT (NEUT) % 59.7 % (test code = 770-8) IMM GRAN % (test 0.40 % code = 4903432780) LYMPH % (test code 29.5 % = 736-9) MONO % (test code 8.2 % = 5905-5) EOS % (test code = 1.7 % 713-8) BASO % (test code 0.5 % = 706-2) GRAN MAT 5.93 10*3/uL 1.88-7.09 x10^3(ANC) (test code = 3346067239) IMM GRAN x10^3 0.04 10*3/uL 0-0.06 (test code = 6830622666) LYMPH x10^3 (test 2.93 10*3/uL 1.32-3.29 code = 731-0) MONO x10^3 (test 0.81 10*3/uL 0.33-0.92 code = 742-7) EOS x10^3 (test 0.17 10*3/uL 0.03-0.39 code = 711-2) BASO x10^3 (test 0.05 10*3/uL 0.01-0.07 code = 704-7) [facility] P[facility] W [id number] 19:13:50CT Abdomen and Pelvis with intravenous contrast. [...] intrapelvic abnormalities detected.Please see additional comments above. [facility], Radiant Results Inft User - 06/02/2019 1:14 [...] or intrapelvic abnormalities detected.Please see additional comments above.[facility] [id number] 18:13:00 Test Item Value Reference Range Interpretation Comments APPEARANCE (test code = Clear Clear 4192779379) COLOR (test code = Yellow Yellow 0094858326) PH (test code = 4.8-8.0 5315392622) SP GRAVITY (test code = 1.003-1.030 7342902282) GLU U QUAL (test code = Normal Normal 9763351993) BLOOD (test code = Negative Negative 8896148073) KETONES (test code = Negative Negative 4676560650) PROTEIN (test code = Negative Negative 2887-8) UROBILIN (test code = Normal Normal 6948657200) BILIRUBIN (test code = Negative Negative 3330821200) NITRITE (test code = Negative Negative 7559426017) LEUK ROXANE (test code = Negative Negative 6738063301) RBC/HPF (test code = See_Comment [Autom ated message] 6508976761) The system [employer] generated this result transmitted ref erence range: 0 - 3 HP F. The reference range was not used to int erpret this result as normal/abnormal . WBC/HPF (test code = See_Comment [Autom ated message] 2238858840) The system [employer] generated this result transmitted ref erence range: 0 - 5 HP F. The reference range was not used to int erpret this result as normal/abnormal . BACTERIA (test code = Negative Negative 0087215486) MUCOUS (test code = Slight Negative LPF A 5584440131) SQ EPITH (test code = HPF 4104962383) Lab Interpretation (test Abnormal code = 43110-6) [facility]. METABOLIC PANEL (69703)2019-06-02 18:09:00 Test Item Value Reference Range Interpretation Comments NA (test code = 138 mmol/L 135-145 6688457853) K (test code = 4.2 mmol/L 3.5-5 4210468532) CL (test code = 102 mmol/L 98-108 6266455162) CO2 TOTAL (test code = 27 mmol/L 23-31 1316827211) AGAP (test code = 2-16 9472556799) BUN (test code = 12 mg/dL 7-23 3087833940) GLUCOSE (test code = 93 mg/dL 70-110 4145889545) CREATININE (test code 0.73 mg/dL 0.5-1.04 = 9034603887) TOTAL BILI (test code 0.4 mg/dL 0.1-1.1 = 4495868077) CALCIUM (test code = 9.5 mg/dL 8.6-10.6 3982509226) T PROTEIN (test code = 7.3 g/dL 6.3-8.2 4815971184) ALBUMIN (test code = 4.6 g/dL 3.5-5 3091910882) ALK PHOS (test code = 84 U/L 34-122 3650329636) ALTv (test code = 12 U/L 5-35 1742-6) AST(SGOT) (test code = 21 U/L 13-40 2960561472) eGFR Calculation mL/min/1.73m2 (Non-) (test code = 2810028040) eGFR Calculation mL/min/1.73m2 () (test code = 4754537143) JOSH (test code = JOSH) Association of [...] or urine or abnormalities in imaging tests). [facility] [id number] 18:09:00 Test Item Value Reference Range Interpretation Comments LIPASE (test code = 9258269566) 108 U/L 0-220 Lab Interpretation (test code = Normal 85136-4) [facility] WITH [id number] 18:01:00 Test Item Value Reference Range Interpretation Comments WBC (test code = See_Comment [Automated message] 6690-2) The system [employer] generated this result transmitted ref erence range: 4.30 - 1 1.10 10*3/?L. The re ference range was not u sed to interpret this result as normal/abnor mal. RBC (test code = See_Comment [Automated message] 309-8) The system [employer] generated this result transmitted ref erence range: [...] RDW-SD (test code 46.2 fL 39-49.9 = 95275-4) RDW-CV (test code 14.1 % 12-15.5 = 788-0) PLT (test code = See_Comment [Automated message] 347-3) The system [employer] generated this result transmitted ref erence range: 166 - 35 8 10*3/?L. The re ference range was not u sed to interpret this result as normal/abnor mal. MPV (test code = 10.8 fL 9.5-12.9 65839-3) NRBC/100 WBC (test See_Comment [Automat ed message] code = 4067949651) The syste [place] which generated this result transmitted ref erence range: 0.0 - 10 .0 /100 WBCs. The refer ence range was not u sed to interpret this result as normal/abnor mal. NRBC x10^3 (test <0.01 See_Comment [Automated message] code = 8268161989) The syste m which generated this result transmitted ref erence range: 10*3/?L. The reference range was not used to interpr et this result as normal/abnormal . GRAN MAT (NEUT) % 69.9 % (test code = 770-8) IMM GRAN % (test 0.70 % code = 0661418645) LYMPH % (test code 21.2 % = 736-9) MONO % (test code 6.2 % = 5905-5) EOS % (test code = 1.4 % 713-8) BASO % (test code 0.6 % = 706-2) GRAN MAT 6.08 10*3/uL 1.88-7.09 x10^3(ANC) (test code = 1075077321) IMM GRAN x10^3 0.06 10*3/uL 0-0.06 (test code = 2885775410) LYMPH x10^3 (test 1.84 10*3/uL 1.32-3.29 code = 731-0) MONO x10^3 (test 0.54 10*3/uL 0.33-0.92 code = 742-7) EOS x10^3 (test 0.12 10*3/uL 0.03-0.39 code = 711-2) BASO x10^3 (test 0.05 10*3/uL 0.01-0.07 code = 704-7) [facility] Test, [id number] 17:48:00 Test Item Value Reference Range Interpretation Comments POCT PREG (test code = 1605) negative POCT PREG LOT # (test code = 3575) [id number] POCT PREG TEST DATE (test 11/10/2020 code = 3576) Lab Interpretation (test code = Normal 74737-3) [facility] X[facility] CHEST 1 [id number] 19:54:00 Name: VIC JAMES [facility] : 1980 Age/S: 38 / F [address] [place] Unit #: [id number] Loc: [place] [address] Phys: Génesis King MD Acct: [id number] Dis Date: Status: ADM IN PHONE #: [phone] Exam Date: 02/22/20191940 FAX #: Reason: SOB EXAMS: CPT: [id number] XR CHEST 1 V 96909 Fluoro Time: DAP (Gy m2): Air Kerma [...] edema and small right pleural effusion. at [facility]4 Reported and signed by: Caridad Vyas MD CC: Jordan Jean MD; Cony Partida MD; Génesis King MD PAGE 1 Signed Report Name: VIC JAMES [place] : 1980 Age/S: 38 / F [address] [place] Unit #: [id number] Loc: [place] [address] Phys: Génesis King MD Acct: [id number] Dis Date: Status: ADM IN PHONE #: [phone] Exam Date: 02/22/20191940 FAX #: Reason: SOB EXAMS: CPT: [id number] XR CHEST 1 V 98700 Fluoro Time: DAP (Gy m2): Air Kerma (mGy): (Continued) Technologist: Jordan Chacon, RT(R)(CT) Trnscb Date/Time: 02/22/2019 (1953) Talya Orig Print D/T: S: 02/22/2019 (1956) PAGE 2 Signed Report- RETRO [id number] 15:32:00 Name: VIC JAMES [place] : 1980 Age/S: 38 / F [address] [place] Unit #: [id number] Loc: [place] [address] Phys: Génesis King MD Acct: [id number] Dis Date: Status: ADM IN PHON E #: [phone] Exam Date: 02/22/2019 1200 FAX #: Reason: back pain EXAMS: CPT: [id number] US RETRO LTD 43036 EXAMINATION: - US RETRO LTD. LOCATION: T18. [...] Nina Andrews, RT(R),RDMS(AB) Trnscb Date/Time: 02/22/2019 (1532) [email or web address] PAGE 1 Signed Report Name: VIC JAMES [place] : 1980 Age/S: 38 / F [address] [place] Unit #: [id number] Loc: [place] [address] Phys: Génesis King MD Acct: [id number] Dis Date: Status: ADM IN PHONE #: [phone] Exam Date: 02/22/2019 1200 FAX #: Reason: back pain EXAMS: CPT: [id number] USRETRO LTD 33608 (Continued) Orig Print D/T: S: 02/22/2019 (1535) Probe: PAGE 2 Signed ReportCBC W/AUTO [id number] 12:09:00 Test Item Value Reference Range Interpretation [...] MDIFF) CONSISTA NT WITH AUTO DIFFERENTIAL. RBC [id number] 12:09:00 Test Item Value Reference Range Interpretation Comments ANISOCYTOSIS (test code = 1+ NONE ANISO) MICROCYTOSIS (test code = 1+ ON SCAN NONE MICR) PLATELET ESTIMATE (test ADEQUATE THOUSAND ADEQUATE code = PLTEST) PLATELET MORPHOLOGY (test NORMAL code = PLTMORPH) CBC W/AUTO [id number] 12:08:00 Test Item Value Reference Range Interpretation [...] = NO DIFF/SCN CRITERIA MDIFF) CBC W/AUTO [id number] 12:08:00 Test Item Value Reference Range Interpretation [...] code = NO DIFF/SCN CRITERIA MDIFF) RBC [id number] 12:08:00 Test Item Value Reference Range Interpretation Comments ANISOCYTOSIS (test code = 1+ NONE ANISO) MICROCYTOSIS (test code = 1+ ON SCAN NONE MICR) PLATELET ESTIMATE (test ADEQUATE THOUSAND ADEQUATE code = PLTEST) PLATELET MORPHOLOGY (test NORMAL code = PLTMORPH) CBC W/AUTO [id number] 12:08:00 Test Item Value Reference Range Interpretation [...] = NO DIFF/SCN CRITERIA MDIFF) BASIC METABOLIC [id number] 07:07:00 Test Item Value Reference Range Interpretation [...] CA) 7.8 MG/DL 8.5-10.1 L CBC W/AUTO [id number] 06:58:00 Test Item Value Reference Range Interpretation [...] ng/mL are obtained. - CT ABD PELVIS [id number] 20:34:00 Name: VIC JAMES [facility] : 1980 Age/S: 38 / F [address] [place] Unit #: [id number] Loc: [place] [address] Phys: Cony Partida MD Acct: [id number] Dis Date: Status: ADM IN PHONE#: [phone] Exam Date: 02/19/20192024 FAX #: Reason: acute PN, possible ureteral stone EXAMS: CPT: [id number] CT ABD PELVIS W/CONT 72500 CT Abdomen and Pelvis with contrast. Location: Clinicalindication: 38-year-old with pyelonephritis and possible ureteral [...] 2. No ureteral calculus or hydronephrosis. at 2034 Reported and signed by: Jatinder Funez M.D. CC: Jordan Jean MD; Cony Partida MD Technologist:Celia Davidson, RT(R)(CT) CTDI: DLP: Trnscb Date/Time: 02/19/2019 (2033) BarbieRB24 Orig Print D/T: S: 02/19/2019 (2036) PAGE 1 Signed ReportUA RFLX MICR CULT IF [id number] 19:43:00 Test Item Value Reference Range Interpretation [...] culture: Flank PainUA RFLX MICR CULT IF [id number] 19:28:00 Test Item Value Reference Range Interpretation [...] 50,000 2ND & 3R D TRIMESTER LACTIC [id number] 18:52:00 Test Item Value Reference Range Interpretation Comments LACTIC ACID (test code = LACT) 0.7 mmol/L 0.4-2.0 N CBC W/AUTO [id number] 17:55:00 Test Item Value Reference Range Interpretation [...] MDIFF) CONSISTA NT WITH AUTO DIFFERENTIAL. RBC [id number] 17:55:00 Test Item Value Reference Range Interpretation Comments ANISOCYTOSIS (test code = ANISO) 1+ NONE CBC W/AUTO [id number] 17:54:00 Test Item Value Reference Range Interpretation [...] CONSISTA NT WITH AUTO DIFFERENTIAL. CBC W/AUTO [id number] 17:54:00 Test Item Value Reference Range Interpretation [...] CONSISTA NT WITH AUTO DIFFERENTIAL. BASIC METABOLIC [id number] 17:43:00 Test Item Value Reference Range Interpretation [...] Unit/L 84-246 N code = LDH) LACTIC [id number] 17:43:00 Test Item Value Reference Range Interpretation Comments LACTIC ACID (test code = LACT) 0.8 mmol/L 0.4-2.0 N BASIC METABOLIC [id number] 17:36:00 Test Item Value Reference Range Interpretation [...] code Unit/L 84-246 = LDH) CBC W/AUTO [id number] 17:35:00 Test Item Value Reference Range Interpretation [...]
[2022-06-03] MEDS ORDERED: METOCLOPRAMIDE 10 MG/2mL INJ ONE (16:39)
[2022-06-03] MEDS ORDERED: DIPHENHYDRAMINE 50 MG/ML VIAL ONE (16:40)
[2022-06-03] MEDS ORDERED: dexAMETHasone 10 MG/ML VIAL ONE (16:40)
[2022-06-03] MEDS ORDERED: NA CHLORIDE 0.9% 500 ML ONE (16:40)
[2022-06-03] MEDS ORDERED: KETOROLAC 30 MG/ML INJ ONE (16:40)
--- NOTE | 2022-06-03 17:55 | ER ---
Nurse's Notes [facility] Name: Yohana Reeves Age: 41 yrs Sex: Female : 1980 Arrival Date: 06/03/2022 Time: 14:34 Bed 10 Private MD: Diagnosis: Headache Presentation: 06/03 14:44 Chief complaint: Patient states: she has had a headache, nausea, vomiting, and blurry ap3 vision for three days now. patient reports that it feels like someone is trying to "squeeze my head" patient states she has a history of migraines. Coronavirus screen: At this time, the client does not indicate any symptoms associated with coronavirus-19. Ebola Screen: No symptoms or risks identified at this time. Initial Sepsis Screen: Does the patient meet any 2 criteria? No. Patient's initial sepsis screen is negative. Does the patient have a suspected source of infection? No. Patient's initial sepsis screen is negative. Risk Assessment: Do you want to hurt yourself or someone else? Patient reports no desire to harm self or others. Onset of symptoms was May 31, 2022. 14:44 Method Of Arrival: Ambulatory ap3 14:44 Acuity: NICOLASA 3 ap3 Triage Assessment: 14:46 Headache History: The patient has had previous headaches and this one is similar to ap3 previous episodes. General: Appears uncomfortable, Behavior is calm, cooperative. Pain: Complains of pain in whole head Pain radiates to neck Pain currently is 7 out of 10 on a pain scale. Pain began gradually, 2-3 days ago. Also complains of nausea, photophobia. Neuro: Level of Consciousness is awake, alert, obeys commands, Oriented to person, place, time, situation, Gait is steady, Speech is normal. Cardiovascular: Patient's skin is warm and dry. Respiratory: Airway is patent Respiratory effort is even, unlabored, Respiratory pattern is regular, symmetrical. GI: Reports nausea, vomiting. Historical: - Allergies: 14:46 No Known Allergies; ap3 - PMHx: 14:46 chronic back pain; depressive disorder; GI Bleed; heart attack due to trauma; Kidney ap3 stones; Migraine; - Immunization history:: Client reports receiving the 2nd dose of the Covid vaccine, Flu vaccine is not up to date. - Social history:: Smoking status: Patient denies any tobacco usage or history of. Screenin:47 [facility] ED Fall Risk Assessment (Adult) History of falling in the last 3 months, ap3 including since admission No falls in past 3 months (0 pts). Abuse screen: Denies threats or abuse. Nutritional screening: No deficits noted. Tuberculosis screening: No symptoms or risk factors identified. Assessment: 16:40 Reassessment: Patient is alert, oriented x 3, equal unlabored respirations, skin aa5 warm/dry/pink. Pain: Complains of pain in head. 16:59 Reassessment: Patient appears in no apparent distress at this time. Patient is alert, ap3 oriented x 3, equal unlabored respirations, skin warm/dry/pink. Vital Signs: 14:44 BP 134 / 79; Pulse 96; Resp 18; Temp 98.5; Pulse Ox 99% ; Weight 83.91 kg; Height 5 ft. ap3 2 in. (157.48 cm); Pain 7/10; 16:59 BP 129 / 77; Pulse 89; Resp 18; Pulse Ox 99% on R/A; ap3 14:44 Body Mass Index 33.84 (83.91 kg, 157.48 cm) ap3 ED Course: 14:34 Patient arrived in ED. as 14:46 Triage completed. ap3 14:48 Lance Smart PA is PHCP. jmm 14:48 Arm band placed on left wrist. ap3 14:49 Blade Haas MD is Attending Physician. jmm 16:40 Inserted saline lock: 20 gauge in right antecubital area, using aseptic technique. aa5 16:59 Elise Forde, FÁTIMA is Primary Nurse. ap3 16:59 Patient has correct armband on for positive identification. Placed in gown. Bed in low ap3 position. Call light in reach. Side rails up X2. Pulse ox on. NIBP on. Door closed. Noise minimized. Warm blanket given. 16:59 No provider procedures requiring assistance completed. ap3 17:54 Leif Qiu MD is Referral Physician. jmm 18:18 IV discontinued, intact, bleeding controlled, No redness/swelling at site. ld1 Administered Medications: 16:40 Drug: NS 0.9% 500 ml Route: IV; Rate: bolus; Site: right antecubital; aa5 16:40 Drug: diphenhydrAMINE 12.5 mg Route: IVP; Site: right antecubital; aa5 16:40 Drug: Ketorolac 30 mg Route: IVP; Site: right antecubital; aa5 16:42 Drug: Decadron - Dexamethasone 10 mg Route: IVP; Site: right antecubital; aa5 16:44 Drug: Reglan (metoCLOPramide) 20 mg Route: IVP; Site: right antecubital; aa5 Medication: 14:48 VIS not applicable for this client. ap3 Outcome: 17:54 Discharge ordered by MD. shashi 18:17 Discharged to home ambulatory, with family. ld1 18:17 Condition: stable 18:17 Discharge instructions given to patient, Instructed on discharge instructions, follow up and referral plans. Demonstrated understanding of instructions, follow-up care, medications, Prescriptions given X 3. 18:18 Patient left the ED. ld1 Signatures: Lance Smart PA PA jmm Martinez, Amelia as Calderon, Audri RN RN aa5 Elise Forde RN RN ap3 Treasure Echols RN RN ld1
--- NOTE | 2022-06-03 17:55 | EDPHYS ---
Physician Documentation [facility] – [place], [place] Name: Yohana Reeves Age: 41 yrs Sex: Female : 1980 Arrival Date: 06/03/2022 Time: 14:34 Bed 10 Private MD: ED Physician Blade Haas HPI: 06/03 14:49 This 41 yrs old Female presents to ER via Ambulatory with complaints of Headache, jmm Nausea/Vomiting. 14:49 This is a 41-year-old female with history of chronic back pain, depression, migraines jmm that presents emerged part with complaints of migraine which has been ongoing for 3 days without any relief from prescribed Imitrex. Also complains of nausea and vomiting which she states is consistent with previous migraines. Denies fever, neck stiffness, unilateral weakness, different character of migraine.. Historical: - Allergies: 14:46 No Known Allergies; ap3 - PMHx: 14:46 chronic back pain; depressive disorder; GI Bleed; heart attack due to trauma; Kidney ap3 stones; Migraine; - Immunization history:: Client reports receiving the 2nd dose of the Covid vaccine, Flu vaccine is not up to date. - Social history:: Smoking status: Patient denies any tobacco usage or history of. ROS: 14:49 Constitutional: Negative for fever, chills, and weight loss, Cardiovascular: Negative jmm for chest pain, palpitations, and edema, Respiratory: Negative for shortness of breath, cough, wheezing, and pleuritic chest pain. 14:49 Neuro: Positive for headache. 14:49 All other systems are negative. Exam: 14:49 Constitutional: This is a well developed, well nourished patient who is awake, alert, jmm and in no acute distress. Head/Face: atraumatic. Eyes: EOMI, no conjunctival erythema appreciated ENT: Moist Mucus Membranes Neck: Trachea midline, Supple Chest/axilla: Normal chest wall appearance and motion. Cardiovascular: Regular rate and rhythm. No edema appreciated Respiratory: Normal respirations, no respiratory distress appreciated Abdomen/GI: Non distended Back: Normal ROM Skin: General appearance color normal MS/ Extremity: Moves all extremities, no obvious deformities appreciated, no edema noted to the lower extremities Neuro: Awake and alert Psych: Behavior is normal, Mood is normal, Patient is cooperative and pleasant Vital Signs: 14:44 BP 134 / 79; Pulse 96; Resp 18; Temp 98.5; Pulse Ox 99% ; Weight 83.91 kg; Height 5 ft. ap3 2 in. (157.48 cm); Pain 7/10; 16:59 BP 129 / 77; Pulse 89; Resp 18; Pulse Ox 99% on R/A; ap3 14:44 Body Mass Index 33.84 (83.91 kg, 157.48 cm) ap3 MDM: 14:[address] [facility] 17:53 Data reviewed: vital signs, nurses notes. Management of patient was discussed with the jmm following:. I considered the following discharge prescriptions or medication management in the emergency department Medications were administered in the Emergency Department. See MAR. Test considered but Not performed: CT: Same character as previous headaches. Counseling: I had a detailed discussion with the patient and/or guardian regarding: the historical points, exam findings, and any diagnostic results supporting the discharge/admit diagnosis, the need for outpatient follow up, to return to the emergency department if symptoms worsen or persist or if there are any questions or concerns that arise at home. ED course: Headache is relieved in the ED. I do not currently suspect subarachnoid hemorrhage or meningitis. Patient advised to follow-up with her neurologist and otherwise given strict return precautions. Patient understood and agrees plan of care.. 06/03 14:49 Order name: Saline Lock; Complete Time: 16:50 [facility] Administered Medications: 16:40 Drug: NS 0.9% 500 ml Route: IV; Rate: bolus; Site: right antecubital; aa5 16:40 Drug: diphenhydrAMINE 12.5 mg Route: IVP; Site: right antecubital; aa5 16:40 Drug: Ketorolac 30 mg Route: IVP; Site: right antecubital; aa5 16:42 Drug: Decadron - Dexamethasone 10 mg Route: IVP; Site: right antecubital; aa5 16:44 Drug: Reglan (metoCLOPramide) 20 mg Route: IVP; Site: right antecubital; aa5 Disposition Summary: 06/03/22 17:54 Discharge Ordered Location: Home [facility] Condition: Stable [facility] Diagnosis - Headache [facility] Followup: [facility] - With: Leif Qiu MD - When: 2 - 3 days - Reason: Recheck today's complaints, Continuance of care, Re-evaluation by your physician Discharge Instructions: - Discharge Summary Sheet jm - Migraine Headache [facility] Forms: - Medication Reconciliation Form [facility] - Thank You Letter shashi - Antibiotic Education darius - Prescription Opioid Use [facility] Addendum: 06/04/2022 19:53 Co-signature as Attending Physician, Blade Haas MD I reviewed the patient's care r n provided by the Advanced Practice Provider and agree with the diagnosis and treatment plan. Signatures: Lance Smart PA PA jmm Nieto, Roman, MD MD rn Calderon, Audri RN RN aa5 Elise Forde RN RN ap3
[2022-06-03 18:25] VITALS: BP 129/77; O2SAT 99
[2022-06-03 18:26] VITALS: TEMP 98.5
== END 2022-06-03 18:18 | disposition home or self-care (01) ==
LOC: ER 14:22
DX: R51.9 Headache, unspecified (principal); R11.2 Nausea with vomiting, unspecified
CPT/HCPCS: 96375; 96374; 99284; J2765; J1200; J1100; J7040

== ENCOUNTER 2022-09-23 11:10 | Emergency (ER) | payer BC ==
--- OUTSIDE RECORDS SUMMARY | 2022-09-23 11:18 | XMS REPORT | Continuity of Care Document ---
:1980 Author Organization [facility] t Address [address] [place] [address] [place] [id number] Care Team Providers Name Role Phone None, None Primary Care Physician CAITIE SHIPLEY Attending Clinician Unavailable Caitie Klein Attending Clinician ANGEL ATKINS Attending Clinician Unavailable ELISE RICE Attending Clinician Unavailable Jagjit CERTIFIED CODER, Elise Attending Clinician Pob, [facility] Main Attending Clinician Unavailable Ariel Britt MD Attending Clinician ARIEL BRITT Attending Clinician Unavailable Doctor Unassigned, [place] Attending Clinician Unavailable Paul Sams MD Attending Clinician PAUL SAMS Attending Clinician Unavailable _SWAMBER_Stan_Edis Attending Clinician Unavailable Alex Pierce Attending Clinician [phone] Megan Aranda Attending Clinician Ann Cardozo DO Attending Clinician Angelo Robles MD Attending Clinician Naun Bush MD Attending Clinician Mark Monterroso Attending Clinician Candido Isabel Attending Clinician CANDIDO RAMIREZ Attending Clinician Unavailable CAITIE SHIPLEY Admitting Clinician Unavailable [email or web address] Admitting Clinician Unavailable Naun Bush MD Admitting Clinician CANDIDO RAMIREZ Admitting Clinician Unavailable Payers Payer Name Policy Type Policy Number Effective Date Expiration Date S ource [place] OF [id number] 2021 [facility] 00:00:00 TML GBRP CLAIMS [id number] 2017 00:00:00 [place] [id number] 2021 00:00:00 BCBS PPO POS EPO CHOICE [id number] 2021 00:00:00 [facility] [id number] 2017 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 PLAN 00:00:00 [place] ([place] Problems Condition Condition Condition Status Onset Resolution Last Treating Co mments Source Name Details Category Date Date Treatment Clinician Date Tachycardi Tachycardi Disease Active 2019-04 U nivers a a 0-28 ity of 00:: [place] [facility] Family Family Disease Active 2019-04 Univers history of history of 0-28 it y of early CAD early CAD 00:[facility] Chest pain Chest pain Disease Active 2019-04 U nivers 0-27 ity of 00:: [facility] Obesity Obesity Disease Active 2019-04 Univers (BMI (BMI 0-27 ity of 30-39.9) 30-39.9) 00:00: [facility] RLQ RLQ Disease Active 2019- Univers abdominal abdominal 9-24 ity of pain pain 00:00: [facility] Anxiety Anxiety Disease Active 2019- Univers 9-24 ity of 00:00: [facility] Chronic Chronic Disease Active 2019 Univers low back low back 9-24 ity of pain pain 00:00: [facility] Anemia Anemia Problem Active [facility]- Medical 00:00: 00 Hypertensi Hypertensi Problem Active [facility] ve ve 11-11 Medical disorder Disorder 00:00: 00 Hyperchole Hyperchole Problem Active [facility] sterolemia sterolemia 11-11 Me dical 00:00: 00 Allergies, Adverse Reactions, Alerts Allergy Allergy Status Severity Reaction(s) Onset Inactive Treating Comm ents Source Name Type Date Date Clinician ally PEALR Active [place] [facility] subsalic 7-29 Clear ylate 00:00: Jones 00 [facility] NO KNOWN Drug Active [facility] ALLERGIE Class ity of S [facility] NO KNOWN Allergy Active [facility] Social History Social Habit Start Date Stop Date Quantity Comments Source History of Cigarette [facility]oker [facility] tobacco use Exposure to 2022-06-23 2022-07-03 Not sure [facility] SARS-CoV-2 00:00:00 10:38:00 (event) Tobacco use and 2022-07-03 2022-07-03 Smokeless tobacco [facility] exposure 00:00:00 00:00:00 non-user Alcohol intake 2021-10-15 2021-10-15 Ex-drinker [facility] 00:00:00 00:00:00 (finding) [facility] History SDOH 2020-02-08 2020-02-08 99 University o f Alcohol Frequency 00:00:00 00:00:00 [facility] History SDOH 2020-02-08 2020-02-08 99 University o f Alcohol Std 00:00:00 00:00:00 [place] [facility] History SDOH 2020-02-08 2020-02-08 99 University o f Alcohol Binge 00:00:00 00:00:00 [place] [facility] Tobacco Comment 2020-02-07 2020-02-07 rarely Universit y of 00:00:00 00:00:00 [place] [facility] Alcohol Comment 2020-02-07 2020-02-07 occasionally Univers ity of 00:00:00 00:00:00 [facility] Branch Cigarettes smoked 2020-01-24 2020-01-24 Univers ity of current (pack per 00:00:00 00:00:00 [facility]) - Reported Branch Sex Assigned At [birth year] NOREEN Batres kes 00:00:00 00:00:00 [facility] Center Smoking Status Start Date Stop Date Source Heavy Tobacco Smoker [facility] Ex-smoker 2022-07-03 00:00:00 2022-07-03 00:00:00 [facility] Medications Ordered Filled Start Stop Current Ordering Indication Dosage Frequency Signature Comments Components Source Medication Medication Date Date Medication? Clinician (SIG) Name Name naomie- 2022- No 1{tbl} 1 tablet, Univers acetaminoph 09-15 Oral, ity of en-caff 15:00: 16:51 ONCE, 1 [place] (ESGIC) 00 :00 dose, On Medical 50-325-40 Thu09/15/22 Bran ch mg tablet 1 at 1000, tablet LORENE FENTanyl PF No 25ug 25 mcg, Un carol (SUBLIMAZE 09-15 Slow IV ity o f (PF)) 14:45: 14:33 Push, [place] injection 00 :00 ONCE, 1 Medical 25 mcg dose, On Branch Thu09/15/22 at 0945, STAT dicyclomine No 20mg 20 mg, Uni vers (BENTYL) 09-15 Intramuscu ity of injection 14:45: 13:48 lar, ONCE, [place] 20 mg 00 :00 1 dose, On Medical Thu09/15/22 Branch at 0945, LORENE NaCl 0.9% 2022- No 1000mL at 999 Uni vers (NS) bolus 09-15 mL/hr, ity of infusion 14:45: 15:49 1,000 mL, [place] as 1,000 mL 00 :00 IV Medical Infusion, Branch ONCE, 1 dose, On Thu09/15/22 at 0945, STAT iopamidol 2022- No [id number] 130mL 130 mL, Univers (ISOVUE 09-15 Intravenou ity o f 370-500 mL) 14:20: 14:20 s, ONCE, 1 [place] injection 00 :00 dose, On Medica l 130 mL Thu09/15/22 Branch at 0945, Routine cefTRIAXone 2022- No 1000mg 1,000 mg, Univers (ROCEPHIN) 09-15 IV ity of 1,000 mg in 14:15: 14:25 Piggyback, [place] NaCl 0.9% 00 :00 ONCE, 1 Medical (NS) 100 mL dose, On Bran ch MINI-BAG Thu09/15/22 at 0915, Administer over 30 Minutes, 100 mL
Reas on for Anti-Infec tive: Documented Infection< br>Documen alistair Infection Site: Urine<br&g t;Duration of Therapy: 7 days ketorolac 2022- No 30mg 30 mg, Unive rs (TORADOL) 09-15 Slow IV ity of injection 14:00: 13:48 Push, [place] 30 mg 00 :00 ONCE, 1 Medical dose, On Branch Thu09/15/22 at 0900, LORENE famotidine No 20mg 20 mg, Univ ers (PEPCID 09-15 Slow IV ity of (PF)) 13:45: 13:49 Push, [place] injection 00 :00 ONCE, 1 Medical 20 mg dose, On Branch Thu09/15/22 at 0845, LORENE diphenhydrA No 12.5mg 12.5 mg, Univers MINE 09-15 Slow IV ity of (BENADRYL) 13:45: 13:49 Push, [place] injection 00 :00 ONCE, 1 Medical 12.5 mg dose, On Branch Thu09/15/22 at 0845, LORENE metoclopram 2022- No 5mg 5 mg, Slow Univers adarsh HCl 09-15 IV Push, ity of (REGLAN) 13:45: 13:49 ONCE, 1 [place] injection 5 00 :00 dose, On Medi riky mg Thu09/15/22 Branch at 0845, LORENE dicyclomine Yes [id number] 20mg Take 1 Univers 20 mg 09-15 tablet by ity of tablet 00:00: mouth 4 [place] 00 (four) Medical times Branch daily as needed for Abdominal pain. cefdinir 2022- Yes [id number] 300mg Take 1 Univers 300 mg 09-15 capsule by ity of capsule 00:00: 04:59 mouth [place] 00 :00 every 12 Medical (twelve) Branch hours for 7 days. lamoTRIgine Yes 200mg QD Take 200 U T (LaMICtal) 3-23 mg by Health 200 MG 11:03: mouth 1 tablet 19 (one) time each day. Lurasidone 2022-0 Yes 120mg QD Take 120 UT HCl 3-23 mg by Health (Latuda) 11:02: mouth 1 120 MG 47 (one) time tablet each day with breakfast. venlafaxine 2022-0 Yes 75mg Take 75 mg UT XR 3-23 by mouth. Health (Effexor-XR 11:02: ) 75 MG 24 08 hr capsule montelukast 2022-0 Yes 10mg Take 10 mg UT (Singulair) 3-23 by mouth Heal th 10 MG 11:02: if needed. tablet 08 HYDROcodone 0 Yes 1{tbl} Take 1 UT -acetaminop 3-23 tablet by [facility] hen (Stacy) 11:02: mouth if 5-325 MG 08 needed. tablet zolpidem 2022-0 Yes 10mg Take 10 mg UT (Ambien) 10 3-23 by mouth. Hea lth MG tablet 11:02: 07 FLUoxetine 0 Yes 80mg Take 80 mg U T (PROzac) 40 3-23 by mouth. Hea lth MG capsule 11:02: 07 meloxicam 0 Yes 15mg QD Take [address] [facility] [address] (MOBIC) 15 7-05 by mouth [facility] tablet 14:24: daily. Medica l [place] montelukast Yes 10mg QD Take [address] [facility] (SINGULAIR) 7-05 by mouth [facility] 10 mg 14:24: nightly. Medical tablet 12 Center benzonatate 0 Yes 100mg Take [address] (TESSALON) 7-05 mg by [facility] 100 MG 14:24: mouth 3 Medical capsule 12 (three) Center times daily as needed for Cough. meloxicam 0 Yes 15mg QD Take [address] (MOBIC) 15 7-05 by mouth [facility] MG tablet 14:24: daily. Medica l 12 [place] montelukast 0 Yes 10mg QD Take [address] [facility] (SINGULAIR) 7-05 by mouth Luke [facility] 10 mg 14:24: nightly. Medical tablet 12 [place] benzonatate 0 Yes 100mg Take [address] (TESSALON) 7-05 mg by [facility] 100 MG 14:24: mouth 3 Medical capsule 12 (three) Center times daily as needed for Cough. meloxicam 2021-0 Yes 15mg QD Take [address] (MOBIC) 15 7-05 by mouth [facility] MG tablet 14:24: daily. Medica l 12 [place] montelukast 0 Yes 10mg QD Take [address] [facility] (SINGULAIR) 7-05 by mouth Luke s 10 mg 14:24: nightly. Medical tablet 12 [place] benzonatate 2021-0 Yes 100mg Take [address] (TESSALON) 7-05 mg by [facility] 100 MG 14:24: mouth 3 Medical capsule 12 (three) Center times daily as needed for Cough. meloxicam 2021-0 Yes 15mg QD Take [address] (MOBIC) 15 7-05 by mouth [facility] MG tablet 14:24: daily. Medica l [address] [place] [address] montelukast 0 Yes 10mg QD Take [address] [facility] (SINGULAIR) 7-05 by mouth Luke s 10 mg 14:24: nightly. Medical tablet [address] [place] [address] benzonatate 0 Yes 100mg Take [address] (TESSALON) 7-05 mg by [facility] 100 MG 14:24: mouth 3 Medical capsule 12 (three) Center times daily as needed for Cough. meloxicam 2021-0 Yes 15mg QD Take [address] (MOBIC) 15 7-05 by mouth [facility] MG tablet 14:24: daily. Medica l [address] [place] [address] montelukast 0 Yes 10mg QD Take [address] (SINGULAIR) 7-05 by mouth Luke [facility] 10 mg 14:24: nightly. Medical tablet 12 [place] benzonatate 2021-0 Yes 100mg Take [address] (TESSALON) 7-05 mg by [facility] 100 MG 14:24: mouth 3 Medical capsule 12 (three) Center times daily as needed for Cough. butalbital- 2021- No 1{tbl} Take [address] acetaminoph 7-05 07-10 tablet by Rachel kes en-caffeine 00:00: 23:59 mouth Medi riky (FIORICET, 00 :00 every 6 Center ESGIC) (six) 50-325-40 hours as mg per needed for tablet Headaches for up to 5 days. butalbital- 2021-2021- No 1{tbl} Take [address] [...] 4 mg, Slow Un carol injection 4 07-23-12 IV Push, ity of mg 19:15: 18:10 ONCE, 1 [place] 00 :00 dose, Mon Medical 07/23/20 at Branch 1415, STAT ondansetron No 4mg 4 mg, Slow Univers (ZOFRAN 07-23-12 IV Push, ity of (PF)) 18:00: 16:55 [...] medication : MEGAN LYONS iohexol 2020- No [id number] 120mL 120 mL, Univers (OMNIPAQUE 07-23 Intravenou it y of 350 17:15: 17:10 s, ONCE, 1 [place] BULK-150 00 :00 dose, Mon Medica l mL) 07/23/20 at Branch injection 1215, 120 mL Routine ondansetron Yes [id number] 4mg Take 1 Univers (ZOFRAN 4-12 tablet by ity of ODT) 4 mg 00:00: mouth [place] disintegrat 00 every 8 Medic al ing tablet (eight) Branch hours as needed for Nausea and Vomiting (N/V). ondansetron Yes [id number] 4mg Take 1 Univers (ZOFRAN 4-12 tablet by ity of ODT) 4 mg 00:00: mouth [place] disintegrat 00 every 8 Medic al ing tablet (eight) Branch hours as needed for Nausea and Vomiting (N/V). ondansetron Yes [id number] 4mg Take 1 Univers (ZOFRAN 4-12 tablet by ity of ODT) 4 mg 00:00: mouth [place] disintegrat 00 every 8 Medic al ing tablet (eight) Branch hours as needed for Nausea and Vomiting (N/V). ondansetron Yes [id number] 4mg Take 1 Univers (ZOFRAN 4-12 tablet by ity of ODT) 4 mg 00:00: mouth [place] disintegrat 00 every 8 Medic al ing tablet (eight) Branch hours as needed for Nausea and Vomiting (N/V). ondansetron 2020-0 Yes [id number] 4mg Take 1 Univers (ZOFRAN 4-12 tablet by ity of ODT) 4 mg 00:00: mouth [place] disintegrat 00 every 8 Medic al ing tablet (eight) Branch hours as needed for Nausea and Vomiting (N/V). ondansetron 0 Yes [id number] 4mg Take 1 Univers (ZOFRAN 4-12 tablet by ity of ODT) 4 mg 00:00: mouth [place] disintegrat 00 every 8 Medic al ing tablet (eight) Branch hours as needed for Nausea and Vomiting (N/V). ondansetron 2020-0 Yes [id number] 4mg Take 1 Univers (ZOFRAN 4-12 tablet by ity of ODT) 4 mg 00:00: mouth [place] disintegrat 00 every 8 Medic al ing tablet (eight) Branch hours as needed for Nausea and Vomiting (N/V). ondansetron 0 Yes [id number] 4mg Take 1 Univers (ZOFRAN 4-12 tablet [...] mg tablet 1 1530, tablet Routine haloperidol 0 2020- No 2.5mg 2.5 mg, U nivers [...] 0-28 mouth ity of (BYSTOLIC 19:30: daily. [place] ORAL) 22 Medical Branch zolpidem 2019-04 Yes 10mg Take 10 mg Uni vers (AMBIEN) 10 0-28 by mouth ity of mg tablet 19:30: at [place] [address] bedtime. Medical Branch FLUoxetine 2019-04 Yes 80mg Take 80 mg U nivers (PROZAC) 40 0-28 by mouth ity of mg capsule 19:30: daily. [place] [address] Medical Branch ARIPiprazol 2019-04 Yes 5mg Take [...] 0-28 mouth ity of (BYSTOLIC 19:30: daily. [facility]) 22 Medical Branch zolpidem 2019-04 Yes 10mg Take 10 mg Uni vers (AMBIEN) 10 0-28 by mouth ity of mg tablet 19:30: at [place] [address] bedtime. Medical Branch FLUoxetine 2019-04 Yes 80mg Take 80 mg U nivers (PROZAC) 40 0-28 by mouth ity of mg capsule 19:30: daily. [address] ARIPiprazol 2019-04 Yes 5mg Take 5 mg U nivers e (ABILIFY) 0-28 by mouth ity of 5 mg tablet 19:30: daily. [address] HYDROcodone 2019-04 Yes 1{tbl} Take 1 [...] 0-28 mouth ity of (BYSTOLIC 19:30: daily. [address] Branch zolpidem 2019-04 Yes 10mg Take 10 mg Uni vers (AMBIEN) 10 0-28 by mouth ity of mg tablet 19:30: at [place] [address] bedtime. Medical Branch FLUoxetine 2019-04 Yes 80mg Take 80 mg U nivers (PROZAC) 40 0-28 by mouth ity of mg capsule 19:30: daily. [address] ARIPiprazol 2019-04 Yes 5mg Take 5 mg U nivers e (ABILIFY) 0-28 by mouth ity of 5 mg tablet 19:30: daily. [address] HYDROcodone 2019-04 Yes 1{tbl} Take 1 [...] 0-28 mouth ity of (BYSTOLIC 14:30: daily. [place] ORAL) 22 Medical Branch zolpidem 2019-04 Yes 10mg Take 10 mg Uni vers (AMBIEN) 10 0-28 by mouth ity of mg tablet 14:30: at [place] [address] bedtime. Medical Branch FLUoxetine 2019-04 Yes 80mg Take 80 mg U nivers (PROZAC) 40 0-28 by mouth ity of mg capsule 14:30: daily. [place] [address] Medical Branch ARIPiprazol 2019-04 Yes 5mg Take 5 mg U nivers e (ABILIFY) 0-28 by mouth ity of 5 mg tablet 14:30: daily. [facility] 22 Medical Branch HYDROcodone 2019-04 Yes [...] 0-28 mouth ity of (BYSTOLIC 14:30: daily. [facility]) Medical Branch zolpidem 2019-04 Yes 10mg Take 10 mg Uni vers (AMBIEN) 10 0-28 by mouth ity of mg tablet 14:30: at [place] [address] bedtime. Medical Branch FLUoxetine 2019-04 Yes 80mg Take 80 mg U nivers (PROZAC) 40 0-28 by mouth ity of mg capsule 14:30: daily. [place] [address] Medical Branch ARIPiprazol 2019-04 Yes 5mg Take 5 mg U nivers e (ABILIFY) 0-28 by mouth ity of 5 mg tablet 14:30: daily. [place] [address] Medical Branch HYDROcodone 2019-04 Yes 1{tbl} Take [...] 0-28 mouth ity of (BYSTOLIC 14:30: daily. [place] ORAL) Medical Branch zolpidem 2019-04 Yes 10mg Take 10 mg Uni vers (AMBIEN) 10 0-28 by mouth ity of mg tablet 14:30: at [place] [address] bedtime. Medical Branch FLUoxetine 2019-04 Yes 80mg Take 80 mg U nivers (PROZAC) 40 0-28 by mouth ity of mg capsule 14:30: daily. [place] [address] Medical Branch ARIPiprazol 2019-04 Yes 5mg Take 5 mg U nivers e (ABILIFY) 0-28 by mouth ity of 5 mg tablet 14:30: daily. [address] Branch HYDROcodone 2019-04 Yes 1{tbl} Take [...] 0-28 mouth ity of (BYSTOLIC 14:30: daily. [place] ORAL) Medical Branch zolpidem 2019-04 Yes 10mg Take 10 mg Uni vers (AMBIEN) 10 0-28 by mouth ity of mg tablet 14:30: at [place] [address] bedtime. Medical Branch FLUoxetine 2019-04 Yes 80mg Take 80 mg U nivers (PROZAC) 40 0-28 by mouth ity of mg capsule 14:30: daily. [place] [address] Medical Branch ARIPiprazol 2019-04 Yes 5mg Take 5 mg U nivers e (ABILIFY) 0-28 by mouth ity of 5 mg tablet 14:30: daily. [facility] 22 Medical Branch HYDROcodone 2019-04 Yes [...] 0-28 mouth ity of (BYSTOLIC 14:30: daily. [place] ORAL) Medical Branch zolpidem 2019-04 Yes 10mg Take 10 mg Uni vers (AMBIEN) 10 0-28 by mouth ity of mg tablet 14:30: at [place] [address] bedtime. Medical Branch FLUoxetine 2019-04 Yes 80mg Take 80 mg U nivers (PROZAC) 40 0-28 by mouth ity of mg capsule 14:30: daily. [place] [address] Medical Branch ARIPiprazol 2019-04 Yes 5mg Take 5 mg U nivers e (ABILIFY) 0-28 by mouth ity of 5 mg tablet 14:30: daily. [facility] 22 Medical Branch HYDROcodone 2019-04 Yes [...] 0-28 mouth ity of (BYSTOLIC 14:30: daily. [place] ORAL) Medical Branch zolpidem 2019-04 Yes 10mg Take 10 mg Uni vers (AMBIEN) 10 0-28 by mouth ity of mg tablet 14:30: at [place] [address] bedtime. Medical Branch FLUoxetine 2019-04 Yes 80mg Take 80 mg U nivers (PROZAC) 40 0-28 by mouth ity of mg capsule 14:30: daily. [place] [address] Medical Branch ARIPiprazol 2019-04 Yes 5mg Take 5 mg U nivers e (ABILIFY) 0-28 by mouth ity of 5 mg tablet 14:30: daily. [facility] 22 Medical Branch HYDROcodone 2019-04 Yes [...] 0-28 mouth ity of (BYSTOLIC 14:30: daily. [place] ORAL) Medical Branch zolpidem 2019-04 Yes 10mg Take 10 mg Uni vers (AMBIEN) 10 0-28 by mouth ity of mg tablet 14:30: at [place] [address] bedtime. Medical Branch FLUoxetine 2019-04 Yes 80mg Take 80 mg U nivers (PROZAC) 40 0-28 by mouth ity of mg capsule 14:30: daily. [place] [address] Medical Branch ARIPiprazol 2019-04 Yes 5mg Take 5 mg U nivers e (ABILIFY) 0-28 by mouth ity of 5 mg tablet 14:30: daily. [facility] Medical Branch HYDROcodone 2019-04 Yes 1{tbl} [...] 0-28 Oral, ity of (PROTONIX) 14:00: DAILY, [place] EC tablet 00 First dose Medi riky [...] ity of XR) 24 hr 13:00: WITH [place] capsule 150 00 BREAKFAST, Me dical mg First dose Branch on Thu02/08/20 at 0800, Until Discontinu ed, Routine zolpidem 2019-04 Yes 10mg 10 mg, Univers (AMBIEN) 0 Oral, QHS, ity o f tablet 10 02:00: First dose [place] mg 00 on [facility] 02/07/20 Branch at 2100, Until Discontinu ed, Routine NaCl 0.9% 2019-04 No IV Univers (NS) IV 002-07 Infusion, ity of infusion 02:00: 09:59 at 125 [place] 00 :00 mL/hr, Medical CONTINUOUS Branch , Starting Thu02/07/20 at 2100, Until Thu02/08/20 at 0459, Routine HYDROcodone 2019-04 Yes 1{tbl} 1 tablet, Univers -acetaminop 0 Oral, BID, it y of hen (NORCO 01:00: First dose [place] 5) 5-325 mg 00 on [facility] l tablet 1 02/07/20 Branch tablet at 2000, Until Discontinu ed, Routine nitroglycer 2019-04 Yes .4mg 0.4 mg, Uni vers in 0 Sublingual ity of (NITROSTAT) 00:22: , Q5MIN [place] as sublingual 18 PRN, Medical tablet 0.4 Starting Branc h mg 02/07/20 at 1922, Until Discontinu ed, Routine, Chest pain morpHINE 2019-04- No 2mg 2 mg, Slow Un carol injection 2 02-08 IV Push, ity [facility] mg 00:21: [facility] [place] 44 :44 Starting Medical [facility] 02/07/20 at 192, Until 02/08/20 at 192, Routine, Pain (scale 7-10), Chest pain acetaminoph 2019-04 2020- No 1{tbl} 1 tablet, Univers en-codeine 02-09 Oral, ity of (TYLENOL 00:21: 00:20 Q6RN, [place] #3) 300-30 33 :33 Starting Medic al mg tablet 1 [facility] tablet 02/07/20 at 192, Until [place] 02/09/20 at 192, Routine, Pain (scale 4-6) acetaminoph 2019-04 Yes 650mg 650 mg, Un carol en Oral, ity of (TYLENOL) 00:21: Q6[place], [place] tablet 650 31 Starting Medic al mg [facility] 02/07/20 at 192, Until Discontinu ed, Routine, Pain (scale 1-3) FENTanyl PF 2019-04- No 100ug 100 mcg, Univers (SUBLIMAZE 02-06 Slow IV ity o f (PF)) 23:30: 22:26 Push, [place] injection 00 :00 ONCE, 1 Medical 100 mcg dose, [facility] 02/07/20 at 1830, STAT nitroglycer 2019-04- No .4mg 0.4 mg, Un carol in 02-06 Sublingual ity of (NITROSTAT) 22:30: 21:30 , ONCE, 1 [place] sublingual 00 :00 dose, [facility] Medi riky tablet 0.4 02/07/20 [...] of 350 21:30: 21:30 s, ONCE, 1 [place] BULK-150 00 :00 dose, Tue Medica l mL) 02/07/20 Branch injection at 1630, 120 mL Routine ondansetron 2019-04 2020- No 4mg 4 mg, Slow Univers (ZOFRAN 0-27 10-27 IV Push, ity of (PF)) 21:30: 20:30 ONCE, 1 [place] injection 4 00 :00 dose, Tue Med ical mg 02/07/20 Branch at 1630, LORENE morpHINE 2019-04 2020- No 4mg 4 mg, Slow Un carol injection 4 0-27 10-27 IV Push, ity of mg 21:30: 20:30 ONCE, 1 [place] 00 :00 dose, [facility] Medical 02/07/20 Branch at 1630, STAT morpHINE 2019-04 2020- No 4mg 4 mg, Slow Un carol injection 4 0-14 10-14 IV Push, ity of mg 02:15: 01:13 ONCE, 1 [place] 00 :00 dose, [facility] Medical 01/24/20 Branch at 2115, STAT ondansetron 2019-04 2020- No 4mg 4 mg, Slow Univers (ZOFRAN 0-14 10-14 IV Push, ity of (PF)) 02:15: 01:13 ONCE, 1 [place] injection 4 00 :00 dose, Tue Med [...] ity of (PF)) 01:00: 23:47 ONCE, 1 [place] injection 4 00 :00 dose, Tue Med ical mg 01/24/20 Branch at 2000, LORENE morpHINE 2019-04 2020- No 4mg 4 mg, Slow Un carol injection 4 0-14 10-13 IV Push, ity of mg 01:00: 23:47 ONCE, 1 [place] 00 :00 dose, Tue Medical 01/24/20 Branch at 2000, STAT iohexol 2019-04 2020- No 120mL 120 mL, Unive rs (OMNIPAQUE 0-13 10-13 Intravenou it y of 350 23:45: 23:45 s, ONCE, 1 [place] BULK-150 00 :00 dose, Tue Medica l mL) 01/24/20 Branch injection at 1845, 120 mL Routine zolpidem 2019-04 Yes 10mg Take 10 mg Uni vers (AMBIEN) 10 0-13 by mouth ity of mg tablet 22:12: at [place] [address] bedtime. Medical Branch FLUoxetine 2019-04 Yes 80mg Take 80 mg U nivers (PROZAC) 40 0-13 by mouth ity of mg capsule 22:12: daily. [place] [address] Medical Branch ARIPiprazol 2019- Yes 5mg Take [...] tablet by ity o f 00:00: mouth [place] 00 every 6 Medical (six) Branch hours as needed for Pain (scale 4-6). Indication s: acute pain ondansetron 2019- Yes [id number] 8mg Take 2 Univers 4 mg tablet 0-13 tablets by it y of 00:00: mouth [place] [address] every 8 Medical (eight) Branch hours as needed for Nausea and Vomiting (N/V). ondansetron 2019-1 Yes [id number] 8mg Take 2 Univers 4 mg tablet 0-13 tablets by it y of 00:00: mouth [place] 00 every 8 Medical (eight) Branch hours as needed for Nausea and Vomiting (N/V). ondansetron 2020-1 Yes [id number] 8mg Take 2 Univers 4 mg tablet 0-13 tablets by it y of 00:00: mouth [place] 00 every 8 Medical (eight) Branch hours as needed for Nausea and Vomiting (N/V). ondansetron 2020-1 Yes [id number] 8mg Take 2 Univers 4 mg tablet 0-13 tablets by it y of 00:00: mouth [place] 00 every 8 Medical (eight) Branch hours as needed for Nausea and Vomiting (N/V). ondansetron 2020-1 Yes [id number] 8mg Take 2 Univers 4 mg tablet 0-13 tablets by it y of 00:00: mouth [place] 00 every 8 Medical (eight) Branch hours as needed for Nausea and Vomiting (N/V). ondansetron 2020-1 Yes [id number] 8mg Take 2 Univers 4 mg tablet 0-13 tablets by it y of 00:00: mouth [place] 00 every 8 Medical (eight) Branch hours as needed for Nausea and Vomiting (N/V). ondansetron 2020-1 Yes [id number] 8mg Take 2 Univers 4 mg tablet 0-13 tablets by it y of 00:00: mouth [place] 00 every 8 Medical (eight) Branch hours as needed for Nausea and Vomiting (N/V). ondansetron 2020-1 Yes [id number] 8mg Take 2 Univers 4 mg tablet 0-13 tablets by it y of 00:00: mouth [place] 00 every 8 Medical (eight) Branch hours as needed for Nausea and Vomiting (N/V). ondansetron 2020-1 Yes [id number] 8mg Take 2 Univers 4 mg tablet 0-13 tablets by it y of 00:00: mouth [place] 00 every 8 Medical (eight) Branch hours as needed for Nausea and Vomiting (N/V). ondansetron 2020-1 Yes [id number] 8mg Take 2 Univers 4 mg tablet 0-13 tablets by it y of 00:00: mouth [place] 00 every 8 Medical (eight) Branch hours as needed for Nausea and Vomiting (N/V). ciprofloxac 2020-1 Yes [id number] 500mg Take 1 Univers in HCl 500 [...] Indication s: acute pain ondansetron 2019-04 Yes [id number] 8mg Take 2 Univers 4 mg tablet [...] Indication s: acute pain ciprofloxac 2019-04- No [id number] 500mg Take 1 Univers in HCl 500 [...] No 4mg 4 mg, Slow Univers (ZOFRAN 06-02 IV Push, ity of (PF)) 19:00: 17:54 [...] 06/02/19 at 1130, LORENE dicyclomine 2019-0 Yes [id number] 10mg Take 1 Univers (BENTYL) 10 2-20 capsule by it y of mg capsule [place]:00[place] (four[place] Medical times Branch daily as needed for Abdominal pain. dicyclomine 2019-0 Yes [id number] 10mg Take 1 Univers (BENTYL) 10 2-20 capsule by [place] y of mg capsule [place] ([place] Medical times Branch daily as needed for Abdominal pain. dicyclomine 0 2019- No [id number] 10mg Take 1 Univers (BENTYL) 10 2-20 10-13 capsule by i ty of mg capsule 00:00: 00:00 mouth 4 [place] 00 :00 (four) Medical times Branch daily as needed for Abdominal pain. traMADol Yes [id number] 50mg Take 1 Univers (ULTRAM) 50 9- [id number] tablet by i ty of mg tablet 00:00: mouth [place] 00 every 8 Medical (eight) Branch hours as needed for Pain (scale 4-6). traMADol Yes [id number] 50mg Take 1 Univers (ULTRAM) 50 9-28 [id number] tablet by i ty of mg tablet 00:00: mouth [place] 00 every 8 Medical (eight) Branch hours as needed for Pain (scale 4-6). traMADol 2020- No [id number] 50mg Take 1 Univers (ULTRAM) 50 9-28 10-13 [id number] tablet by ity of mg tablet 00:00: 00:00 mouth [place] 00 :00 every 8 Medical (eight) Branch hours as needed for Pain (scale 4-6). nebivolol Yes Take by Unive rs HCl - mouth ity of (BYSTOLIC 20:20: daily. [place] ORAL) 01 Medical Branch zolpidem Yes 10mg Take 10 mg Uni vers (AMBIEN) 10 9-26 by mouth ity of mg tablet 20:20: at [place] bedtime. Medical Branch HYDROcodone 2019 Yes 1{tbl} [...] ity of 5 mg tablet 20:20: daily. [facility] Medical Branch hydrOXYzine Yes 25mg Take 25 mg Univers 25 mg 9-26 by mouth ity of tablet 20:20: at bedtime [place] as needed Medical for Branch Itching or Anxiety. nebivolol Yes Take by Unive rs HCl 9-26 mouth ity of (BYSTOLIC 20:20: daily. [place] ORAL) Medical Branch zolpidem Yes 10mg Take 10 mg Uni vers (AMBIEN) 10 9-26 by mouth ity of mg tablet 20:20: at [place] [address] bedtime. Medical Branch HYDROcodone Yes 1{tbl} Take [...] ity of 5 mg tablet 20:20: daily. [facility] Medical Branch hydrOXYzine Yes 25mg Take 25 mg Univers 25 mg 9-26 by mouth ity of tablet 20:20: at bedtime [place] as needed Medical for Branch Itching or Anxiety. nebivolol Yes Take by Unive rs HCl 9 mouth ity of (BYSTOLIC 20:20: daily. [place] ORAL) 01 Medical Branch Abilify Abilify No Abilify [facility] [...] Name Observation Time Observation Value Comments Source Systolic blood 2022-09-15 17:00:00 107 mm[Hg] Univer sity of pressure [facility] Diastolic blood 2022-09-15 17:00:00 79 mm[Hg] Unive rsity of pressure [facility] Heart rate 2022-09-15 17:00:00 86 /[facility] 2022-09-15 17:00:00 16 /min Univ [facility] Oxygen saturation in 2022-09-15 17:00:00 100 /min [facility] blood by [facility] Pulse oximetry Branch Body temperature 2022-09-15 13:03:00 36.61 Elodia [facility] [place] [facility] Body weight 2022-09-15 13:03:00 79.379 kg Universi [facility] BMI 2022-09-15 13:03:00 32.01 kg/m2 [facility] Systolic blood 2022-07-03 15:56:00 117 mm[facility]Hg] [facility] Diastolic blood 2022-07-03 15:56:00 78 mm[Hg] [facility] Heart rate 2022-07-03 15:56:00 77 [facility] Body height 2022-07-03 15:56:00 [facility]5 [facility] Body weight 2022-07-03 15:56:00 83[facility]915 [facility] BMI 2022-07-03 15:56:00 33.84 [facility] HEIGHT 2021-10-15 11:42:00 157.5 cm WEIGHT 2021-10-15 11:42:00 83.915 kg HEIGHT 2021-10-15 11:42:00 157.5 cm WEIGHT 2021-10-15 11:42:00 83.915 kg HEIGHT 2021-10-15 11:42:00 157.5 cm WEIGHT 2021-10-15 11:42:00 83.915 kg BP Diastolic 2020-08-24 00:00:00 90 mm[Hg] Ting Mauricio edical Height 2020-08-24 00:00:00 62 [in_i] Ting rosado BMI (Body Mass 2020-08-24 00:00:00 32 kg/m2 [facility] Medical Index) BP Systolic 2020-08-24 00:00:00 124 mm[Hg] Ting Mauricio edical Body Weight 2020-08-24 00:00:00 175 [lb_av] Ting rosado Heart rate 2020-07-23 19:30:00 75 /min [facility] [place] [facility] Oxygen saturation in 2020-07-23 19:30:00 100 /min University of Arterial blood by [facility] Pulse oximetry Branch Systolic blood 2020-07-23 18:00:00 142 mm[Hg] Univer sity of pressure [place] [facility] Diastolic blood 2020-07-23 18:00:00 97 mm[Hg] Unive rsity of pressure [place] [facility] Respiratory rate 2020-07-23 18:00:00 20 /min Univ ers[facility] [place] [facility] Body temperature 2020-07-23 16:37:00 37.11 Elodia Univ [facility] [place] [facility] Body height 2020-07-23 16:37:00 157.5 cm [facility] [place] [facility] Body weight 2020-07-23 16:37:00 79.379 kg [facility] [place] [facility] BMI 2020-07-23 16:37:00 32.01 kg/m2 [facility] [place] [facility] Heart rate 2020-07-23 19:30:00 75 /min [facility] [place] [facility] Oxygen saturation in 2020-07-23 19:30:00 100 /min University of Arterial blood by [facility] Pulse oximetry Branch Systolic blood 2020-07-23 18:00:00 142 mm[Hg] Univer sity of pressure [place] [facility] Diastolic blood 2020-07-23 18:00:00 97 mm[Hg] Unive rsity of pressure [place] [facility] Respiratory rate 2020-07-23 18:00:00 20 /min Univ ers[facility] [place] [facility] Body temperature 2020-07-23 16:37:00 37.11 Elodia Univ [facility] [place] [facility] Body height 2020-07-23 16:37:00 157.5 cm [facility] [place] [facility] Body weight 2020-07-23 16:37:00 79.379 kg [facility] [place] [facility] BMI 2020-07-23 16:37:00 32.01 kg/m2 [facility] [place] [facility] Systolic blood 2020-04-27 23:25:00 112 mm[Hg] Univer sity of pressure [place] [facility] Diastolic blood 2020-04-27 23:25:00 87 mm[Hg] Unive rsity of pressure [place] [facility] Heart rate 2020-04-27 23:25:00 78 /min [facility] [place] [facility] Respiratory rate 2020-04-27 23:25:00 18 /min Univ [facility] [place] [facility] Oxygen saturation in 2020-04-27 23:25:00 99 /min University of Arterial blood by [facility] Pulse oximetry Branch Body temperature 2020-04-27 17:24:00 37.06 Elodia Univ [facility] [place] [facility] Body height 2020-04-27 17:24:00 157.5 cm [facility] [place] [facility] Body weight 2020-04-27 17:24:00 77.111 kg [facility] [place] [facility] BMI 2020-04-27 17:24:00 31.09 kg/m2 [facility] [place] [facility] Systolic blood 2020-04-27 23:25:00 112 mm[Hg] Univer sity of pressure [place] [facility] Diastolic blood 2020-04-27 23:25:00 87 mm[Hg] Unive rsity of pressure [place] [facility] Heart rate 2020-04-27 23:25:00 78 /min [facility] [place] [facility] Respiratory rate 2020-04-27 23:25:00 18 /min Univ [facility] [place] [facility] Oxygen saturation in 2020-04-27 23:25:00 99 /min University of Arterial blood by [facility] Pulse oximetry Branch Body temperature 2020-04-27 17:24:00 37.06 Elodia Univ ersity [facility] [place] [facility] Body height 2020-04-27 17:24:00 157.5 cm [facility] [place] [facility] Body weight 2020-04-27 17:24:00 77.111 kg [facility] [place] [facility] BMI 2020-04-27 17:24:00 31.09 kg/m2 [facility] [place] [facility] Systolic blood 2020-02-08 16:45:00 114 mm[Hg] Univer sity of pressure [place] [facility] Diastolic blood 2020-02-08 16:45:00 84 mm[Hg] Unive rsity of pressure [place] [facility] Heart rate 2020-02-08 16:45:00 80 /min [facility] [place] [facility] Body temperature 2020-02-08 16:45:00 36.06 Elodia Univ [facility] [place] [facility] Respiratory rate 2020-02-08 16:45:00 20 /min Univ ersity [facility] [place] [facility] Oxygen saturation in 2020-02-08 16:45:00 96 /min University of Arterial blood by [facility] riky Pulse oximetry Branch Body height 2020-02-08 00:37:00 152.4 cm [facility] [place] [facility] Body weight 2020-02-08 00:37:00 78.019 kg [facility] [place] [facility] BMI 2020-02-08 00:37:00 33.59 kg/m2 [facility] [place] [facility] Systolic blood 2020-02-08 16:45:00 114 mm[Hg] Univer sity of pressure [place] [facility] Diastolic blood 2020-02-08 16:45:00 84 mm[Hg] Unive rsity of pressure [place] [facility] Heart rate 2020-02-08 16:45:00 80 /min [facility] [place] [facility] Body temperature 2020-02-08 16:45:00 36.06 Elodia Univ [facility] [place] [facility] Respiratory rate 2020-02-08 16:45:00 20 /min Univ [facility] [place] [facility] Oxygen saturation in 2020-02-08 16:45:00 96 /min University of Arterial blood by [facility] Pulse oximetry Branch Body height 2020-02-08 00:37:00 152.4 cm [facility] [place] [facility] Body weight 2020-02-08 00:37:00 78.019 kg [facility] [place] [facility] BMI 2020-02-08 00:37:00 33.59 kg/m2 [facility] [place] [facility] Systolic blood 2020-01-25 02:00:00 134 mm[Hg] Univer sity of pressure [place] [facility] Diastolic blood 2020-01-25 02:00:00 94 mm[Hg] Unive rsity of pressure [place] [facility] Heart rate 2020-01-25 02:00:00 83 /min [facility] [place] [facility] Oxygen saturation in 2020-01-25 02:00:00 96 /min University of Arterial blood by [facility] Pulse oximetry Branch Respiratory rate 2020-01-25 01:00:00 16 /min Univ ers[facility] [place] [facility] Body temperature 2020-01-24 22:09:00 37.11 Elodia Univ [facility] [place] [facility] Body height 2020-01-24 22:09:00 157.5 cm [facility] [place] [facility] Body weight 2020-01-24 22:09:00 78.336 kg [facility] [place] [facility] BMI 2020-01-24 22:09:00 31.59 kg/m2 [facility] [place] [facility] Systolic blood 2020-01-25 02:00:00 134 mm[Hg] Univer sity of pressure [place] [facility] Diastolic blood 2020-01-25 02:00:00 94 mm[Hg] Unive rsity of pressure [place] [facility] Heart rate 2020-01-25 02:00:00 83 /min [facility] [place] [facility] Oxygen saturation in 2020-01-25 02:00:00 96 /min University of Arterial blood by [place] [employer] riky Pulse oximetry Branch Respiratory rate 2020-01-25 01:00:00 16 /min Univ ersity [facility] [place] [facility] Body temperature 2020-01-24 22:09:00 37.11 Elodia Univ [facility] [place] [facility] Body height 2020-01-24 22:09:00 157.5 cm [facility] [place] [facility] Body weight 2020-01-24 22:09:00 78.336 kg [facility] [place] [facility] BMI 2020-01-24 22:09:00 31.59 kg/m2 [facility] [place] [facility] Systolic blood 2019-06-02 19:00:00 126 mm[Hg] Univer sity of pressure [place] [facility] Diastolic blood 2019-06-02 19:00:00 81 mm[Hg] Unive rsity of pressure [place] [facility] Heart rate 2019-06-02 19:00:00 86 /min [facility] [place] [facility] Respiratory rate 2019-06-02 19:00:00 17 /min Univ [facility] [place] [facility] Oxygen saturation in 2019-06-02 19:00:00 96 /min [facility] of Arterial blood by [place] [employer] riky Pulse oximetry Branch Body temperature 2019-06-02 17:14:00 36.61 Elodia Univ [facility] [place] [facility] Body height 2019-06-02 17:14:00 157.5 cm [facility] [place] [facility] Body weight 2019-06-02 17:14:00 74.844 kg [facility] [place] [facility] BMI 2019-06-02 17:14:00 30.18 kg/m2 [facility] [place] [facility] Systolic blood 2019-06-02 19:00:00 126 mm[Hg] Univer sity of pressure [facility] Diastolic blood 2019-06-02 19:00:00 81 mm[Hg] Unive rsity of [facility] Heart rate 2019-06-02 19:00:00 86 /min Universi ty [facility] Respiratory rate 2019-06-02 19:00:00 17 /min [facility] Oxygen saturation in 2019-06-02 19:00:00 96 /min University Arterial blood by [facility] Pulse oximetry Branch Body temperature 2019-06-02 17:14:00 36.61 Elodia [facility] Body height 2019-06-02 17:14:00 157.5 [facility] Body weight 2019-06-02 17:14:00 74.844 kg [facility] BMI 2019-06-02 17:14:00 30.18 kg/m2 [facility] Systolic blood 2021-10-15 17:34:00 121 mm[Hg] [facility] Diastolic blood 2021-10-15 17:34:00 69 mm[Hg] [facility] Heart rate 2021-10-15 17:34:00 68 /min [facility] Respiratory rate 2021-10-15 17:34:00 18 /min [facility] Oxygen saturation in 2021-10-15 17:34:00 100 /min [facility] Arterial blood by Medical nter Pulse oximetry Body temperature 2021-10-15 11:42:00 36.83 Elodia [facility] Body height 2021-10-15 11:42:00 157.5 cm [facility] Body weight 2021-10-15 11:42:00 83.915 kg [facility] BMI 2021-10-15 11:42:00 33.84 kg/m2 [facility] Procedures Procedure Date / Time Performing Clinician Source Performed CT ANGIOGRAM 2022-09-15 14:32:00 Violetta, [facility] ABDOMEN/PELVIS Medical Branch LIPASE 2022-09-15 13:30[facility] 2022-09-15 13:30:00 [facility] ([id number]) (ALB,T.PRO,BILI Medical Branch T,BU/BC,ALT,AST,ALK PHOS) BASIC METABOLIC PANEL 2022-09-15 13:30:00 Caitie Shipley [facility] (NA, K, CL, CO2, Medical Branch GLUCOSE, BUN, CREATININE, CA) CBC WITH DIFF 2022-09-15 13:30:00 Violetta [facility] URINALYSIS 2022-09-15 13:30[facility] 2022-09-15 13:30[facility] FOR 2022-09-15 12:57:18 [facility] CT BRAIN WITHOUT IV 2021-10-15 12:42:00 Elise Rice [facility] CONTRAST Center PHYSICIAN ORDERS 2021-08-13 05:01:00 Doctor Unassigned, No General acute hospital ASSIGNMENT OF BENEFITS 2021-07-16 14:15:53 Doctor Unassigned, No [facility] ASSIGNMENT OF BENEFITS 2021-06-18 14:59:31 Doctor Unassigned, No [facility] ULTRASOUND OF PELVIS 2020-08-24 00:00:00 [facility] US OVARY TORSION 2020-07-23 19:10:59 Megan Lyons [facility] CT ABDOMEN PELVIS W 2020-07-23 17:15:00 Megan Lyons [facility] CONTRAST [facility] HEPATIC FUNCTION PANEL 2020-07-23 16:49:00 Megan Lyons [facility] ([id number]) (ALB,T.PRO,[facility] Medical [place] T,BU/BC,ALT,AST,ALK PHOS) BASIC METABOLIC PANEL 2020-07-23 16:49:00 Megan Lyons [facility] (NA, K, CL, CO2, Medical Branch GLUCOSE, BUN, CREATININE, CA) CBC WITH DIFF 2020-07-23 16:49:00 Megan Lyons [facility] URINALYSIS 2020-07-23 16:49:00 Megan Lyons [facility] POCT TEST 2020-07-23 16:48:00 Megan Lyons [facility] NOTICE OF PRIVACY 2020-07-23 16:32:51 Doctor Unassigned, No [facility] [place] [facility]USAL FOR 2020-07-23 16:32:01 Doctor Unassigned, No [facility] [place] DIAGNOSIS AND TREATMENT Name [facility] CT HEAD WO CONTRAST 2020-04-27 19:40:14 Ann Card[facility] TROPONIN I 2020-04-27 18:41:00 Ann Cardozo [facility] BASIC METABOLIC PANEL 2020-04-27 18:41:00 Ann Cardozo [facility] (NA, K, CL, CO2, Medical Branch GLUCOSE, BUN, CREATININE, CA) CBC WITH DIFF 2020-04-27 18:41:00 Ann Cardozo [facility] HB ECG ROUTINE & RHYTHM 2020-04-27 17:58:58 Ann Cardozo [facility] NOTICE OF PRIVACY 2020-04-27 17:21:19 Doctor Unassigned, No [facility] CONSENT/REFUSAL FOR 2020-04-27 17:21:03 Doctor Unassigned, No [facility] [place] DIAGNOSIS AND TREATMENT Name [facility] TROPONIN I 2020-02-08 10:03:00 Sharon Ovalles [facility] BASIC METABOLIC PANEL 2020-02-08 10:03:00 Sharon Ovalles [facility] (NA, K, CL, CO2, Medical Branch GLUCOSE, BUN, CREATININE, CA) CBC WITH DIFF 2020-02-08 10:03:00 Ruby Ovallesherine [facility] TROPONIN I 2020-02-08 04:27:00 Josr, [facility] COVID-19 (ID NOW RAPID 2020-02-07 22:40:00 Angelo Robles [facility] TESTING) Medical Branch MAGNESIUM 2020-02-07 22:22:00 Josr [facility] TROPONIN I 2020-02-07 22:22:00 Travis [facility] THYROID STIMULATING 2020-02-07 22:22:00 Josr [facility] HORMONE [facility] LIPID PANEL 2020-02-07 22:22:00 [id number]TOTAL Medical Branch CHOLESTEROL, TRIGLYCERIDES, HDL) CT ABDOMEN PELVIS W 2020-02-07 21:28:58 Angelo Robles [facility] CONTRAST [facility] CT CHEST PULMONARY 2020-02-07 21:28:58 Angelo Robles [facility] ANGIOGRAM [facility] XR CHEST 1 VW 2020-02-07 20:36:36 Travis [facility] POCT TEST 2020-02-07 20:03:00 Angelo Robles [facility] URINALYSIS 2020-02-07 20:02:00 Angelo Robles [facility] LIPASE 2020-02-07 19:58:00 Travis [facility] TROPONIN I 2020-02-07 19:58:00 Travis Angelo [facility] HEPATIC FUNCTION PANEL 2020-02-07 19:58:00 Angelo Robles [facility] ([id number]) (ALB,T.PRO,BILI [facility] [place] [facility] T,BU/BC,ALT,AST,ALK PHOS) BASIC METABOLIC PANEL 2020-02-07 19:58:00 Angelo Robles [facility] (NA, K, CL, CO2, Medical Branch GLUCOSE, BUN, CREATININE, CA) CBC WITH DIFF 2020-02-07 19:58:00 Angelo Robles [facility] PROTHROMBIN TIME / INR 2020-02-07 19:58:00 Angelo Robles [facility] ACTIVATED PARTIAL 2020-02-07 19:58:00 Angelo Robles [facility] N-TERMINAL PRO-BNP 2020-02-07 19:58:00 Angelo Robles [facility] HB ECG ROUTINE & RHYTHM 2020-02-07 19:51:07 Angelo Robles [facility] CONSENT/REFUSAL FOR 2020-02-07 19:42:57 Doctor Unassigned, No [facility] [place] DIAGNOSIS AND TREATMENT Name Medical Branch CT ABDOMEN PELVIS W 2020-01-24 23:32:59 Mark Armijo [facility] CONTRAST Medical Branch POCT TEST 2020-01-24 23:22:00 Mark Armijo [facility] Medical Branch LIPASE 2020-01-24 22:41:00 Mark [facility] COMP. METABOLIC PANEL 2020-01-24 22:41:00 Mark Armijo [facility] ([id number]) Medical Branch CBC WITH DIFF 2020-01-24 22:41:00 Mark Armijo [facility] Branch URINALYSIS 2020-01-24 22:41:00 Mark Armijo [facility] NOTICE OF PRIVACY 2020-01-24 22:03:28 Doctor Unassigned, No [facility] CONSENT/REFUSAL FOR 2020-01-24 22:03:15 Doctor Unassigned, No [facility] [place] DIAGNOSIS AND TREATMENT Name Medical Branch CT ABDOMEN PELVIS W 2019-06-02 18:46:40 Candido Ramirez [facility] CONTRAST Medical Branch POCT TEST 2019-06-02 17:48:00 Candido Ramirez [facility] Medical Branch LIPASE 2019-06-02 17:47:00 Candido Ramirez [facility] Medical [place] COMP. METABOLIC PANEL 2019-06-02 17:47:00 Candido Ramirez [facility] ([id number]) Medical Branch CBC WITH DIFFERENTIAL 2019-06-02 17:47:00 Candido Ramirez [facility] URINALYSIS 2019-06-02 17:47:00 Candido Ramirez [facility] CONSENT/REFUSAL FOR 2019-06-02 17:08:56 Doctor Unassigned, No [facility] [place] DIAGNOSIS AND TREATMENT Name Medical Branch Gi Tract Capsule 2017-11-10 00:00:00 [facility] Tubal [facility] Caesarean Section [facility] Medical Plan of Care Planned Activity Planned Date Details Comments Source Future Scheduled 2022-12-[address] [facility] Test 00:00:00 (Season Ended) [code Medical Center = INFLUENZA VACCINE (Season Ended)] Future Scheduled 2022-12-[address] [facility] Test 00:00:00 (Season Ended) [code Medical Center = Influenza Vaccine (Season Ended)] Future Scheduled 2022-10-[address] [facility]00 (12+) [code = Medical Center DEPRESSION SCREENING (12+)] Future Scheduled 2022-04-[address] [facility] Test 00:00:00 (12+) [code = Medical Center DEPRESSION SCREENING (12+)] Future Scheduled 2022-04-[address] [facility] Test 00:00:00 (12+) [code = Medical Center DEPRESSION SCREENING (12+)] Future Scheduled 2021-12-[address] [facility] Test 00:00:00 (#1) [code = [facility] INFLUENZA VACCINE (#1)] Future Scheduled 2021-12-[address] [facility] Test 00:00:00 (#1) [code = [facility] INFLUENZA VACCINE (#1)] Future Scheduled 2021-12-[address] [facility] Test 00:00:00 (#1) [code = [facility] INFLUENZA VACCINE (#1)] Future Scheduled 2021-04-[address] [facility] Test 00:00:00 (12+) [code = [facility] DEPRESSION SCREENING (12+)] Future Scheduled 2021-04-[address] [facility] Test 00:00:00 (12+) [code = [facility] DEPRESSION SCREENING (12+)] Future Scheduled [address] [facility] 00:[facility]:00 malignant neoplasm of Medica l Center cervix (procedure) [code = 088124494] Future Scheduled [address] [facility] 00:00:00 malignant neoplasm of [facility] Center cervix (procedure) [code = 723487963] Future Scheduled [address] [facility] [facility] 00:00:00 malignant neoplasm of Medica [facility] Center cervix (procedure) [code = 900364859] Future Scheduled [address] [facility] 00:00:00 malignant neoplasm of Medica [facility] Center cervix (procedure) [code = 270796262] Future Scheduled [address] [facility] 00:00:00 malignant neoplasm of Medica l Center cervix (procedure) [code = 954562324] Future Scheduled [address] [facility] 00:[facility]:00 (procedure) [code = [facility] [id number]] Future Scheduled [address] [facility] 00:00:00 (procedure) [code = [facility] 30140569] Future Scheduled [address] [facility] 00:00:00 (procedure) [code = [facility] 78814520] Future Scheduled [address] [facility] 00:00:00 (procedure) [code = [facility] 98686058] Future Scheduled [address] [facility] 00:00:00 (procedure) [code = [facility] 76363880] Future Scheduled 1999-10-09 DTAP/TDAP/TD VACCINES CH I [...] 1981-04-09 COVID-19 VACCINE (#1) [facility] 00:00:00 [code = COVID-[address] VACCINE (#1)] Encounters Start End Encounter Admission Attending Care Care Encounter Source Date/Time Date/Time Type Type Clinicians Facility Department ID 2022-08-[address] [facility] [id number] [place] 15:19:06 [id number] [facility] 2022-07-[address] [facility] [id number] [place] 10:37:25 [id number] [facility] 2022-07-[address] [facility] [id number] [place] 15:48:54 [id number] [facility] 2022-04-[address] [facility] [id number] [place] 13:15:41 [id number] [facility] 2021-02-10 Emergency [facility] [id number] Univers 12:15:04 ity [facility] 2021-02-09 Emergency [facility] [id number] Univers 17:33:49 ity [facility] 2021-02-09 Emergency [facility] [id number] Univers 01:23:23 ity [facility] 2021-02-08 Emergency [facility] [id number] Univers 22:46:53 ity [facility] 2022-09-15 2022-09-15 Emergency X [facility] ERT [id number] Univers 08:09:00 13:17:00 CYNISE ity [facility] 2022-09-15 2022-09-15 Emergency [facility] 1.2.022.434 [id number] Univers 08:09:00 13:17:00 Caitie HERNANDEZ 350.1.13.10 i ty [facility] 4.2.7.2.686 [facility] [id number] [facility] [address] 2022-08-25 2022-08-25 Outpatient [facility] [id number] [place] 13:45:00 13:45:00 ANGEL [facility] 2022-07-03 2022-07-03 Office ATKINS, RUST 6400 1.2.840.114 [id number] [place] 10:45:00 10:45:00 Visit ANGEL NAGEL 350.1.13.58 [facility] 9.2.7.2.686 [id number] 1 2022-05-21 2022-05-[address] [facility] [id number] [place] 09:30:00 09:30:00 ANGEL [facility] 2021-10-15 2021-10-15 Emergency ER JAGJIT, [facility] Emergency [id number] [facility] 14:24:00 17:37:00 [place] 2021-10-15 2021-10-15 Emergency [place], [facility] [id number] 14:24:00 17:37:00 [facility] 2021-10-15 2021-10-15 Emergency Rice, [facility] [id number] 14:24:00 17:37:00 [facility] 2021-10-15 2021-10-[address] [facility] [id number] [facility] 00:[facility]00 [facility] 2021-10-15 2021-10-[address] [facility] [id number] [facility] 00:[facility] 00:[facility]:00 [facility] 2021-08-13 2021-08-13 Mental Hygienist Radha Smith Lab Main [facility] 1.2.8 40.114 [id number] Univers 12:15:00 12:30:00 Visit Ariel Britt 350.1.13.1 0 ity [facility] 4.2.7.2.686 Jessica BRADFORD [id number] [address] 2021-08-13 2021-08-13 Outpatient Judy BRITT [facility] [id number] Univers 12:15:00 12:15:00 ARIEL ity [facility] 2021-08-13 2021-08-13 Orders Doctor LUÍS 1.2.840.114 [id number] 00:00:00 00:00:00 Only Unassigned, SHARON 350.1.13.10 ity of [place] [facility] 4.2.7.2.686 Craig as [phone] [address] 2021-07-16 2021-07-16 Mental Hygienist Luis, Adc Lab Main [facility] 1.2.8 40.114 [id number] Univers 09:30:00 09:45:00 Visit Paul Sams 350.1.13.10 it[place] [id number] Ne dical NAL 353 [facility] 2021-07-16 2021-07-16 [facility] [id number] Univers 09:30:00 09:30:00 PAUL itgraciela [facility] 2021-07-16 2021-07-16 Orders Doctor LUÍS 1.2.840.114 [id number] Univers 00:00:00 00:00:00 Only Unassigned, SHARON 350.1.13.10 ity of [place] [facility] 4.2.7.2.686 Rcaig as [phone] [address] 2021-06-18 2021-06-18 [facility] [id number] Univers 08:45:00 10:27:48 PAUL itgraciela [facility] 2021-06-18 2021-06-18 Mental Hygienist Luis, Adc Lab Main [facility] 1.2.8 40.114 [id number] Univers 08:45:00 09:00:00 Visit Paul Sams DAVID 350.1.13.10 it[place] [id number] Ne dical NAL [address] [place] [address] 2021-06-18 2021-06-18 Orders Doctor STALEY 1.2.840.114 [id number] Univers 00:00:00 00:00:00 Only Unassigned, SHARON 350.1.13.10 ity of [place] [facility] 4.2.7.2.686 Craig as [id number] [address] 2020-08-24 2020-08-24 Outpatient GC_SWHAOMC_ PRIV PRIV [id number] [facility] 02:56:00 02:56:00 Ludwin [id number] [facility] 2020-08-24 2020-08-24 Outpatient TAYLOR Pierce [facility] [id number] 00:00:00 00:00:00 Alex [id number] Jay [id number] 2020-08-24 2020-08-24 Alex [facility] [id number] [facility] 00:00:00 00:00:00 [facility] darian Pierce, GC_SWHAOMC_ : [address]* [place], [address], [place] [address] , Ph. 2020-07-23 2020-07-23 Emergency [facility], [facility] 1.2.840.114 [id number] 11:40:00 15:16:00 Megan Hernandez 350.1.13.10 [place] 4.2.7.2.686 [place] [id number] 084 2020-07-23 2020-07-23 Emergency [facility], IAMB 1.2.840.114 [id number] [facility] 11:40:00 15:16:00 Megan Hernandez 350.1.13.10 i ty of [place] 4.2.7.2.686 [facility] [phone] [place] [address] [address] 2020-04-27 2020-04-27 Emergency Levi, [facility] 1.2.840.114 [id number] 11:25:00 18:21:00 Ann Hernandez 350.1.13.10 [place] 4.2.7.2.686 [place] [id number] [facility] 2020-04-27 2020-04-27 Emergency Levi, [facility] 1.2.840.114 [id number] [facility] 11:25:00 18:21:00 Ann Hernandez 350.1.13.10 ity of [place] 4.2.7.2.686 [facility] [id number] [place] 166844 [place] 2020-02-07 2020-02-08 Emergency Angelo Robles [facility] 1.2.840. 114 [id number] 14:46:00 14:26:00 Naun Bush 350.1.13.10 [place] 4.2.7.2.686 [place] [id number] 081 2020-02-07 2020-02-08 Emergency Angelo Robles [facility] 1.2.840. 114 [id number] [facility] 14:46:00 14:26:00 Naun Bush 350.1.13.10 ity of [place] 4.2.7.2.686 [facility] [id number] [address] 2020-01-24 2020-01-24 Emergency [place], [facility] 1.2.428.120 [id number] 17:12:00 21:15:00 Mark Dewitt [place] 350.1.13.[address] [place] [address] [place] [address] [id number] [facility] 2020-01-24 2020-01-24 Emergency Armijo, [facility] 1.2.003.168 [id number] [facility] 17:12:00 21:15:00 Mark Dewitt David 350.1.13.10 i ty of [place] 4.2.7.2.[address] [place] [phone] 2020-01-24 2020-01-24 Orders Doctor LUÍS 1.2.840.114 [id number] 00:00:00 00:00:00 Only Unassigned, SHARON 350.1.13.[address] [place] [facility] 4.2.7.2.686 [id number] [facility] 2020-01-24 2020-01-24 Orders Doctor LUÍS 1.2.840.114 [id number] [facility] 00:00:00 00:00:00 Only Unassigned, SHARON 350.1.13.10 ity of [place] [facility] 4.2.7.2.686 [facility] [phone] [place] [address] [address] 2019-06-02 2019-06-02 Emergency [place], [facility] 1.2.840.114 [id number] 11:18:34 14:43:00 Candido B [place] 350.1.13.10 [place] 4.2.7.2.686 [place] [phone] [facility] 2019-06-02 2019-06-02 Emergency [place], [facility] 1.2.840.114 [id number] [facility] 11:18:34 14:43:00 Candido B [place] 350.1.13.10 i [place] 4.2.7.2.686 [facility] [id number] [place] [address] [address] 2019-06-02 2019-06-02 Emergency Duc RAMIREZ [facility] ERT [id number] Univers 11:18:34 14:43:00 CANDIDO feliciano of [facility] Results Test Description Test Time Test Comments Results Result Comments Source BASIC METABOLIC PANEL (NA, K, CL, CO2, GLUCOSE, BUN, 2022-09 14:12:52 CREATININE, CA) Test Item Value Reference Range Interpretation Comme nts NA (test code = 4620904279) 140 mmol/L 135-145 K (test code = 3751243493) 4.2 mmol/L 3.5-5.0 CL (test code = 0131935668) 104 mmol/L 98-108 CO2 TOTAL (test code = 3156822552) 21 mmol/L 23-31 L AGAP (test code = 2091491343) 15 2-16 BUN (test code = 6440039029) 11 mg/dL 7-23 GLUCOSE (test code = 1431774825) 125 mg/dL 70-110 H CREATININE (test code = 0.81 mg/dL 0.50-1.04 6800574904) CALCIUM (test code = 3945615742) 10.4 mg/dL 8.6-10.6 eGFR (test code = 8217310663) 77.9 mL/min/1.73m2 JOSH (test code = JOSH) Association of Glomerular Filtration Rate (GFR) and Staging of Kidney Disease* + +-------- + ------+| GFR (mL/min/1.73 m2) ?| With Kidney Damage ?| ?Without Kidney Damage+ +-- + +| ?>90 ?| ?Stage one ?| ? Normal ?+ +------- + -------+| ?60-89 ?| ?Stage two ?| ? Decreased GFR ? + +-------- + ------+| ?30-59 ?| ?Stage three ?| ? Stage three ? + +-------- + ------+| ?15-29 ?| ?Stage four ? | ? Stage four ?+ +------- + -------+| ?<15 (or dialysis) ? ?| ?Stage five ? | ? Stage five ?+ +------- + -------+ *Each stage assumes the associated GFR [...] or abnormalities in imaging tests). Lab Interpretation (test code = Abnormal 26857-0) [facility] (18115) (ALB,T.PRO,BILI T,BU/BC,ALT,AST,ALK PHOS)2022-09-15 14:12:52 Test Item Value Reference Range Interpretation Comments TOTAL BILI (test code = 8107896107) 0.5 mg/dL 0.1-1.1 BILI UNCON (test code = 9924990817) 0.3 mg/dL 0.1-1.1 BILI CONJ (test code = 4764797560) 0.0 mg/dL 0.0-0.3 T PROTEIN (test code = 5630480820) 7.7 g/dL 6.3-8.2 ALBUMIN (test code = 1155154310) 4.9 g/dL 3.5-5.0 ALK PHOS (test code = 5445814968) 100 U/L 34-122 ALTv (test code = 1742-6) 29 U/L 5-35 AST(SGOT) (test code = 8223659708) 28 U/L 13-40 Lab Interpretation (test code = Normal 55857-1) [facility] Center[facility]IPASE2023-06-05 14:12:52 Test Item Value Reference Range Interpretation Comments LIPASE (test code = 5896679972) 137 U/L 0-220 Lab Interpretation (test code = Normal 78588-0) [facility] CenterCBC WITH [id number] 13:49:51 Test Item Value Reference Range Interpretation Comments WBC (test code = 10.62 See_Comment [Automated 0090-2) message] The sy stem which generated this result transmitted reference range : 4.30 - 11.10 10*3/?L. The reference range was not used to interpret this result as normal/abnormal . RBC (test code = 5.32 See_Comment H [Automated 789-8) message] The sy stem which generated this result transmitted reference range : 3.93 - 5.25 10*6/?L. The reference range was not used to interpret this result as normal/abnormal . HGB (test code = 15.7 g/dL 11.6-15.0 H 718-7) HCT (test code = 46.4 % 35.7-45.2 H 4544-3) MCV (test code = 87.2 fL 80.6-95.5 787-2) MCH (test code = 29.5 pg 25.9-32.8 785-6) MCHC (test code = 33.8 g/dL 31.6-35.1 786-4) RDW-SD (test code = 43.9 fL 39.0-49.9 42428-0) RDW-CV (test code = 13.9 % 12.0-15.5 788-0) PLT (test code = 308 See_Comment [Automated 777-3) message] The sy stem which generated this result transmitted reference range : 166 - 358 10*3/ ?L. The reference r susan was not used to interpret this result as normal/abnormal . MPV (test code = 11.2 fL 9.5-12.9 09478-3) NRBC/100 WBC (test 0.0 See_Comment [Automat ed code = 0247628746) message] The system which generated this result transmitted reference range : 0.0 - 10.0 /100 WBCs. The refer ence range was not u sed to interpret th is result as normal/abnormal . NRBC x10^3 (test code See_Comment [Auto mated = 2584310107) message] The s ystem which generated this result transmitted reference range : 10*3/?L. The reference range was not used to interpret this result as normal/abnormal . GRAN MAT (NEUT) % 71.0 % (test code = 770-8) IMM GRAN % (test code 0.40 % = 5006352058) LYMPH % (test code = 21.0 % 736-9) MONO % (test code = 5.8 % 5905-5) EOS % (test code = 1.3 % 713-8) BASO % (test code = 0.5 % 706-2) GRAN MAT x10^3(ANC) 7.54 10*3/uL 1.88-7.09 H (test code = 7585436121) IMM GRAN x10^3 (test 0.04 10*3/uL 0.00-0.06 code = 7145523300) LYMPH x10^3 (test code 2.23 10*3/uL 1.32-3.29 = 731-0) MONO x10^3 (test code 0.62 10*3/uL 0.33-0.92 = 742-7) EOS x10^3 (test code = 0.14 10*3/uL 0.03-0.39 711-2) BASO x10^3 (test code 0.05 10*3/uL 0.01-0.07 = 704-7) Lab Interpretation Abnormal (test code = 76792-4) [facility] CenterPO[facility] [id number] 13:30:00 Test Item Value Reference Range Interpretation Comments POCT PREG (test code = 1605) Negative On board controls acceptable with C Yes Line (test code = 3574) POCT PREG LOT # (test code = 3575) [id number] POCT PREG TEST DATE (test 57322391 code = 3576) Lab Interpretation (test code = Normal 85777-1) [facility] CenterCT, BRAIN, WITHOUT [id number] 12:56:00 Unlisted Reason for Exam - Click Yes and Enter Reason Below->No [facility] CENTERName: VIC REEVESANINE : 1980 Sex: FFINAL REPORT CT Head without contrast CLINICAL HISTORY: [...] Michael Maciel MDReport Verified Date/Time: 10/15/2021 12:56:49 US OVARY [id number] 19:26:25 Low suspicion for ovarian torsion. Small suspected fundal uterine fibroid versus foci of endometrial andsubendometrial microcalcifications.PELVIC ULTRASOUND (TRANSVAGINAL [...] 2.0x 1.4 x 1.7 cm. Right ovary containsa few physiologic follicles. The leftovary measures 2.4 [...] uterine fibroid versus foci of endometrial andsubendometrial microcalcifications.[facility] CenterCT ABDOMEN PELVIS W [id number] 17:59:04 Normal appendix. No radiographic findings to explain patient's pain in the right lowerquadrant.CT AB DOMEN AND PELVIS WITH CONTRAST REASON FOR STUDY: Abdominal pain, fever Nausea/vomiting RLQ abdominalpain,appendicitis suspected (Age >= 14y) COMPARISON: 02/07/2020 and 01/24/2020 TECHNIQUE: Multidetector axial CT images from lung bases through proximalthighs after IV administration of nonionic iodi nated contrast material.Coronal and sagittal MPR images also generated. INTRAVENOUS CONTRAST ADMINISTRATION (mL Omnipaque 350): 120. Total DLP: 355 mGy*cm FINDINGS: Lower chest: Bibasilar subsegmental atelectasis. ABDOMEN AND PELVISLiver: Hepatic dome is not fully within ybrxe-kr-feiv. Mild focal fatty infiltration at the falciform ligament. No focal suspicious [...] fever Nausea/vomiting RLQ abdominal pain,appendicitis suspected (Age >=14y) COMPARISON: 02/07/2020 and 01/24/2020TECHNIQUE: Multidetector axial CT images from lung bases through proximalthighs after IV administration of nonionic iodinated contrast material.Coronal and sagittal MPR images also generated.INTRAVENOUS CONTRAST ADMINISTRATION (mL Omnipaque 350): 120.Total DLP: 355 mGy*cmFINDINGS: Lower chest: Bibasilar subsegmental atelectasis.ABDOMEN AND PELVISLiver: Hepatic dome is not fully within ibdch-rh-fuhm. Mild focal fattyinfiltration at the falciform ligament. No focal suspicious hepaticlesions. Normal hepatic surface contour.Biliary Tract/GB: Partially contracted gallbladder without cholelithiasis.No biliary ductal dilatation.Spleen: No splenomegaly.Pancreas: No pancreatic ductal dilatation.Adrenals: Within normal limits.Kidneys: Kidneys enhance symmetrically.No hydronephrosis ornephrolithiasis. No renal mass.Bowel: Normal appendix. [...] to explain patient's pain in the right lowerquadrant.[facility] Metabolic Panel (NA, K, CL, CO2, GLUCOSE, BUN, CREATININE, CA)2020-07-23 17:09:38 Test Item Value Reference Range Interpretation Comments NA (test code = 139 mmol/L 135-145 4445563712) K (test code = 3.9 mmol/L 3.5-5.0 6177553756) CL (test code = 102 mmol/L 98-108 8680595753) CO2 TOTAL (test code 29 mmol/L 23-31 = 7985031049) AGAP (test code = 2-16 6234299490) BUN (test code = 13 mg/dL 7-23 3804339322) GLUCOSE (test code = 98 mg/dL 70-110 1330974513) CREATININE (test code 0.76 mg/dL 0.50-1.04 = 1945437577) CALCIUM (test code = 9.5 mg/dL 8.6-10.6 2714786867) eGFR (test code = mL/min/1.73m2 4093160279) JOSH (test code = JOSH) Association of Glomerular Filtration Rate (GFR) and Staging of Kidney Disease* + + +- +| GFR (mL/min/1.73 m2) ?| With Kidney Damage ?| ?Without Kidney Damage+ ------+ ----+ ------+| ?>90 ?| ?Stage one ?| ? Normal ?+ -+ + -+| ?60-89 ?| ?Stage two ?| ? Decreased GFR ? + + +- +| ?30-59 ?| ?Stage three ?| ? Stage three ? + + +- +| ?15-29 ?| ?Stage four ? | ? Stage four ?+ -+ + -+| ?<15 (or dialysis) ? ?| ?Stage five ? | ? Stage five ?+ -+ + -+ *Each stage assumes the associated GFR level [...] or urine or abnormalities in imaging tests). [facility] Function Panel (ALB, T.PRO, BILI T, BU/BC, ALT, AST, ALK PHOS)2020-07-23 17:09:38 Test Item Value Reference Range Interpretation Comments TOTAL BILI (test code = 9859953946) 0.4 mg/dL 0.1-1.1 BILI UNCON (test code = 9392897569) 0.2 mg/dL 0.1-1.1 BILI CONJ (test code = 3638359947) 0.0 mg/dL 0.0-0.3 T PROTEIN (test code = 3880162386) 6.9 g/dL 6.3-8.2 ALBUMIN (test code = 9473275518) 4.3 g/dL 3.5-5.0 ALK PHOS (test code = 5962560227) 113 U/L 34-122 ALTv (test code = 1742-6) 13 U/L 5-35 AST(SGOT) (test code = 4584903504) 29 U/L 13-40 Lab Interpretation (test code = Normal 12679-8) [facility] CenterUrinalysis2021-04-12 17:03:52 Test Item Value Reference Range Interpretation Comments APPEARANCE (test code = Clear Clear 1769215780) COLOR (test code = Straw Yellow A 4823917597) PH (test code = 4.8-8.0 4274592310) SP GRAVITY (test code = 1.003-1.030 3496107897) GLU U QUAL (test code = Normal Normal 1906590077) BLOOD (test code = Negative Negative 5824683089) KETONES (test code = Negative Negative 6938945634) PROTEIN (test code = Negative Negative 2887-8) UROBILIN (test code = Normal Normal 4390137097) BILIRUBIN (test code = Negative Negative 1977799433) NITRITE (test code = Negative Negative 1093246580) LEUK ROXANE (test code = 25/uL Negative A 8818663293) RBC/HPF (test code = See_Comment [Autom ated message] 6661921861) The system [employer] generated this result transmitted ref erence range: 0 - 3 HP F. The reference range was not used to int erpret this result as normal/abnormal . WBC/HPF (test code = See_Comment [Autom ated message] 3203717570) The system [employer] generated this result transmitted ref erence range: 0 - 5 HP F. The reference range was not used to int erpret this result as normal/abnormal . BACTERIA (test code = Few Negative A 4036251678) SQ EPITH (test code = HPF 4055796430) Lab Interpretation (test Abnormal code = 80466-2) [facility] with [id number] 16:55:13 Test Item Value Reference Range Interpretation Comments WBC (test code = See_Comment H [Automated 8790-2) message] The sy stem which generated this result transmitted reference range : 4.30 - 11.10 10*3/?L. The reference range was not used to interpret this result as normal/abnormal . RBC (test code = See_Comment [Automated 609-8) message] The sy stem which generated this [...] RDW-SD (test code = 42.4 fL 39.0-49.9 14233-4) RDW-CV (test code = 12.9 % 12.0-15.5 788-0) PLT (test code = See_Comment [Automated 777-3) message] The sy stem which generated this result transmitted reference range : 166 - 358 10*3/ ?L. The reference r susan was not used to interpret this result as normal/abnormal . MPV (test code = 11.5 fL 9.5-12.9 48610-0) NRBC/100 WBC (test See_Comment [Automat ed code = 0840220457) message] The system which generated this result transmitted reference range : 0.0 - 10.0 /100 WBCs. The refer ence range was not u sed to interpret th is result as normal/abnormal . NRBC x10^3 (test code <0.01 See_Comment [Auto mated = 5928396364) message] The s ystem which generated this result transmitted reference range : 10*3/?L. The reference range was not used to interpret this result as normal/abnormal . GRAN MAT (NEUT) % 65.4 % (test code = 770-8) IMM GRAN % (test code 0.40 % = 8839683016) LYMPH % (test code = 24.9 % 736-9) MONO % (test code = 7.7 % 5905-5) EOS % (test code = 1.1 % 713-8) BASO % (test code = 0.5 % 706-2) GRAN MAT x10^3(ANC) 7.44 10*3/uL 1.88-7.09 H (test code = 3738694753) IMM GRAN x10^3 (test 0.05 10*3/uL 0.00-0.06 code = 6113350693) LYMPH x10^3 (test code 2.83 10*3/uL 1.32-3.29 = 731-0) MONO x10^3 (test code 0.88 10*3/uL 0.33-0.92 = 742-7) EOS x10^3 (test code = 0.12 10*3/uL 0.03-0.39 711-2) BASO x10^3 (test code 0.06 10*3/uL 0.01-0.07 = 704-7) Lab Interpretation Abnormal (test code = 96346-0) [facility] CenterPO[facility] [id number] 16:48:00 Test Item Value Reference Range Interpretation Comments POCT PREG (test code = 1605) negative On board controls acceptable with C present Line (test code = 3574) Lab Interpretation (test code = Normal 52587-8) [facility] Head W/O [id number] 19:42:08 No acute intracranial abnormality. CT HEAD [...] paranasal sinuses and mastoidair cells are clear. [facility], Radiant ResultsInft User - 04/27/2020 [...] and mastoidair cells are clear.IMPRESSIONNo acute intracranial abnormality.[facility] CenterTroponin I 2020-04-27 19:09:00 Test Item Value Reference Range Interpretation Comments TROPONIN I (test <0.012 See_Comment [Automated code = 0444397517) message] The system which generated this result [...] ? Lab Interpretation Normal (test code = 31977-4) [facility] (NA, K, CL, CO2, GLUCOSE, BUN, CREATININE, CA)2020-04-27 18:58:00 Test Item Value Reference Range Interpretation Comments NA (test code = 139 mmol/L 135-145 7114788943) K (test code = 4.1 mmol/L 3.5-5 2848829082) CL (test code = 98 mmol/L 98-108 8036663909) CO2 TOTAL (test code = 32 mmol/L 23-31 H 6834161536) AGAP (test code = 2-16 0604059202) BUN (test code = 11 mg/dL 7-23 7273129953) GLUCOSE (test code = 86 mg/dL 70-110 9864784024) CREATININE (test code = 0.78 mg/dL 0.5-1.04 3948179531) CALCIUM (test code = 10.2 mg/dL 8.6-10.6 0193240526) eGFR Calculation mL/min/1.73m2 (Non-) (test code = 6557555649) eGFR Calculation mL/min/1.73m2 () (test code = 5274420249) JOSH (test code = JOSH) Association of [...] tests). Lab Interpretation Abnormal (test code = 15494-4) [facility] with Thfcjvcpdchw9807-98-10 18:54:00 Test Item Value Reference Range Interpretation Comments WBC (test code = See_Comment [Automated 3754-2) message] The sy stem which generated this result transmitted reference range : 4.30 - 11.10 10*3/?L. The reference range was not used to interpret this result as normal/abnormal . RBC (test code = See_Comment [Automated 583-1) message] The sy stem which generated this [...] RDW-SD (test code = 42.5 fL 39-49.9 92077-1) RDW-CV (test code = 12.8 % 12-15.5 788-0) PLT (test code = See_Comment [Automated 777-3) message] The sy stem which generated this result transmitted reference range : 166 - 358 10*3/ ?L. The reference r susan was not used to interpret this result as normal/abnormal . MPV (test code = 11.9 fL 9.5-12.9 12528-4) NRBC/100 WBC (test See_Comment [Automat ed code = 9576584288) message] The system which generated this result transmitted reference range : 0.0 - 10.0 /100 WBCs. The refer ence range was not u sed to interpret th is result as normal/abnormal . NRBC x10^3 (test code <0.01 See_Comment [Auto mated = [id number]) message] The s ystem which generated this result transmitted reference range : 10*3/?L. The reference range was not used to interpret this result as normal/abnormal . GRAN MAT (NEUT) % 62.6 % (test code = 770-8) IMM GRAN % (test code 0.20 % = [id number]) LYMPH % (test code = 26.7 % 736-9) MONO % (test code = 9.0 % 5905-5) EOS % (test code = 1.1 % 713-8) BASO % (test code = 0.4 % 706-2) GRAN MAT x10^3(ANC) 5.07 10*3/uL 1.88-7.09 (test code = [id number]) IMM GRAN x10^3 (test <0.03 0-0.06 code = [id number]) LYMPH x10^3 (test code 2.16 10*3/uL 1.32-3.29 = 731-0) MONO x10^3 (test code 0.73 10*3/uL 0.33-0.92 = 742-7) EOS x10^3 (test code = 0.09 10*3/uL 0.03-0.39 711-2) BASO x10^3 (test code 0.03 10*3/uL 0.01-0.07 = 704-7) Lab Interpretation Abnormal (test code = 56139-6) [facility] CenterTroponin [id number] 11:05:00 Test Item Value Reference Range Interpretation Comments TROPONIN I (test <0.012 See_Comment [Automated code = 1064345430) message] The system which generated this result [...] ? Lab Interpretation Normal (test code = 15751-3) [facility] CenterBasi Metabolic Panel (NA, K, CL, CO2, GLUCOSE, BUN, CREATININE, CA)2020-02-08 10:55:00 Test Item Value Reference Range Interpretation Comments NA (test code = 138 mmol/L 135-145 3849559027) K (test code = 4.1 mmol/L 3.5-5 5739586607) CL (test code = 104 mmol/L 98-108 0582407649) CO2 TOTAL (test code = 26 mmol/L 23-31 4963215735) AGAP (test code = 2-16 6273096047) BUN (test code = 14 mg/dL 7-23 6027238180) GLUCOSE (test code = 94 mg/dL 70-110 4152109403) CREATININE (test code 0.91 mg/dL 0.5-1.04 = 3159599321) CALCIUM (test code = 9.0 mg/dL 8.6-10.6 8734952010) eGFR Calculation mL/min/1.73m2 (Non-) (test code = 4117196573) eGFR Calculation mL/min/1.73m2 () (test code = 8181890204) JOSH (test code = JOSH) Association of [...] or urine or abnormalities in imaging tests). [facility] with Yprvbmqtcefx7471-13-82 10:26:00 Test Item Value Reference Range Interpretation Comments WBC (test code = See_Comment [Automated message] 6690-2) The system [employer] generated this result transmitted ref erence range: 4.30 - 1 1.10 10*3/?L. The re ference range was not u sed to interpret this result as normal/abnor mal. RBC (test code = See_Comment [Automated message] 789-8) The system [employer] generated this result transmitted ref erence range: [...] RDW-SD (test code 45.3 fL 39-49.9 = 88968-3) RDW-CV (test code 13.4 % 12-15.5 = 788-0) PLT (test code = See_Comment [Automated message] 777-3) The system [employer] generated this result transmitted ref erence range: 166 - 35 8 10*3/?L. The re ference range was not u sed to interpret this result as normal/abnor mal. MPV (test code = 11.9 fL 9.5-12.9 73132-2) NRBC/100 WBC (test See_Comment [Automat ed message] code = 8962358287) The [employer] which generated this result transmitted ref erence range: 0.0 - 10 .0 /100 WBCs. The refer ence range was not u sed to interpret this result as normal/abnor mal. NRBC x10^3 (test <0.01 See_Comment [Automated message] code = 1503977539) [employer] which generated this result transmitted ref erence range: 10*3/?L. The reference range was not used to interpr et this result as normal/abnormal . GRAN MAT (NEUT) % 63.9 % (test code = 770-8) IMM GRAN % (test 0.40 % code = 1109214857) LYMPH % (test code 26.9 % = 736-9) MONO % (test code 6.7 % = 5905-5) EOS % (test code = 1.6 % 713-8) BASO % (test code 0.5 % = 706-2) GRAN MAT 4.94 10*3/uL 1.88-7.09 x10^3(ANC) (test code = 3486504379) IMM GRAN x10^3 0.03 10*3/uL 0-0.06 (test code = 4783029224) LYMPH x10^3 (test 2.08 10*3/uL 1.32-3.29 code = 731-0) MONO x10^3 (test 0.52 10*3/uL 0.33-0.92 code = 742-7) EOS x10^3 (test 0.12 10*3/uL 0.03-0.39 code = 711-2) BASO x10^3 (test 0.04 10*3/uL 0.01-0.07 code = 704-7) [facility] CenterSebmillie e. hale hospitalerasmo [id number] 05:34:00 Test Item Value Reference Range Interpretation Comments TROPONIN I (test <0.012 See_Comment [Automated code = 6435907050) message] The system which generated this result [...] ? Lab Interpretation Normal (test code = 41399-9) [facility] CenterThyroid Stimulating Hormone (TSH)2020-02-08 02:02:00 Test Item Value Reference Range Interpretation Comments TSH (test code = See_Comment [Automated message] 8333320195) The system [employer] generated this result transmitted ref erence range: 0.45 - 4 .70 mIU/L. The refe rence range was not u sed to interpret this result as normal/abnor mal. Lab Interpretation (test Normal code = 31107-2) [facility] CenterMagnesium [id number] 01:31:00 Test Item Value Reference Range Interpretation Comments MAGNESIUM (test code = 1015582169) 2.1 mg/dL 1.7-2.4 Lab Interpretation (test code = Normal 37828-9) [facility] CenterLipid Panel (Total Cholesterol, Triglycerides, HDL)2020-02-08 01:31:00 Test Item Value Reference Range Interpretation Comments CHOL (test code = 220 mg/dL 120-200 H 1921450375) HDL (test code = 44 mg/dL >50 L 1025440028) HDLC RATIO (test code = See_Comment H [Au tomated message] 6514098887) The system [employer] generated this result transmit alistair reference range : <=4.5. The refe rence range was not u sed to interpret th is result as normal/abnormal . TRIG (test code = 179 mg/dL 30-170 H 9302270279) LDL CHOL (test code = 140 mg/dL See_Comment [Auto mated message] 66922-6) The system [employer] generated this result transmit alistair reference range : <=160. The refe rence range was not u sed to interpret th is result as normal/abnormal . VLDL (test code = 36 mg/dL 5-60 1314173421) Lab Interpretation (test Abnormal code = 53799-6) [facility] CenterCOVID-19 (ID NOW RAPID TESTING)2020-02-07 23:26:00 Test Item Value Reference Range Interpretation Comments SARS-CoV-2 Rapid ID NOW Not Detected Not Detected (test code = 11744-4) JOSH (test code = JOSH) ID NOW COVID-19 Assay is an isothermal nucleic acid amplification test intended for the qualitative detection of nucleic acid from SARS-CoV-2 viral RNA in nasopharyngeal (CERTIFIED CODER) specimens. It is used under Emergency Use [...] indicated. Lab Interpretation Normal (test code = 13835-7) [facility] CenterTROPONIN [id number] 22:52:00 Test Item Value Reference Range Interpretation Comments TROPONIN I (test <0.012 See_Comment [Automated code = 0269128605) message] The system which generated this result [...] ? Lab Interpretation Normal (test code = 81691-3) [facility] CenterCT ABDOMEN PELVIS W [id number] 21:53:30CT Abdomen and Pelvis with intravenous contrast. [...] Unremarkable.CONCLUSION: No acute intra-abdominal or pelvic abnormalities detected.[facility] CenterCT CHEST PULMONARY EAWLSYPBH7910-14-07 21:48:38 No acute or chronic pulmonary embolus [...] reviewed this study and agree with theabove report.[facility] CenterUrinalysis2020-10-27 20:52:00 Test Item Value Reference Range Interpretation Comments APPEARANCE (test code = Clear Clear 6858823489) COLOR (test code = Straw Yellow A 9052280714) PH (test code = 4.8-8.0 0070157379) SP GRAVITY (test code = 1.003-1.030 5949100125) GLU U QUAL (test code = Normal Normal 5103178279) BLOOD (test code = Negative Negative 8194088532) KETONES (test code = Negative Negative 0688318601) PROTEIN (test code = Negative Negative 2887-8) UROBILIN (test code = Normal Normal 6438423954) BILIRUBIN (test code = Negative Negative 7561917912) NITRITE (test code = Negative Negative 9219606499) LEUK ROXANE (test code = Negative Negative 6492177961) RBC/HPF (test code = See_Comment [Autom ated message] 0338150752) The system [employer] generated this result transmitted ref erence range: 0 - 3 HP F. The reference range was not used to int erpret this result as normal/abnormal . WBC/HPF (test code = See_Comment [Autom ated message] 6601288553) The system [employer] generated this result transmitted ref erence range: 0 - 5 HP F. The reference range was not used to int erpret this result as normal/abnormal . BACTERIA (test code = Few Negative A 0728760354) MUCOUS (test code = Slight Negative LPF A 4015701968) SQ EPITH (test code = HPF 9899929016) Lab Interpretation (test Abnormal code = 33220-9) [facility] 1 [id number] 20:38:53HISTORY: Chest pain. TECHNIQUE: Portable AP erect [...] CONCLUSIONS: No signs of acute cardiopulmonary disease. [facility] [id number] 20:36:00 Test Item Value Reference Range Interpretation Comments TROPONIN I (test <0.012 See_Comment [Automated code = 1716445578) message] The system which generated this result [...] ? Lab Interpretation Normal (test code = 87290-8) [facility] CenterN-TERMINAL [id number] 20:33:00 Test Item Value Reference Range Interpretation Comments NT-proBNP (test code 53 pg/mL See_Comment [Autom ated = 4153442472) message] The system which generated this result transmitted reference range : <=125. The reference range was not used to interpret this result as normal/abnormal . JOSH (test code = JOSH) Biotin has been reported to cause a negative bias, interpret results relative to patient's use of biotin. Lab Interpretation Normal (test code = 65718-7) [facility] CenteraPTT2020-10-27 20:29:00 Test Item Value Reference Range Interpretation Comments APTT Patient (test See_Comment [Automat ed code = 3173-2) message] The system which generated this result transmitted reference range : 23 - 38 Seconds . The reference range was not used to interpr et this result as normal/abnormal . JOSH (test code = JOSH) The [facility] patient population mean normal value for aPTT is 30 seconds. Lab Interpretation Normal (test code = 27424-0) [facility] CenterProthrombin Time (PT) / [id number] 20:27:00 Test Item Value Reference Range Interpretation [...] tions. Lab Interpretation (test Normal code = 22217-5) [facility] Metabolic Panel (NA, K, CL, CO2, GLUCOSE, BUN, CREATININE, CA)2020-02-07 20:24:00 Test Item Value Reference Range Interpretation Comments NA (test code = 138 mmol/L 135-145 1757872873) K (test code = 3.9 mmol/L 3.5-5 3962307597) CL (test code = 98 mmol/L 98-108 3507451669) CO2 TOTAL (test code = 32 mmol/L 23-31 H 2862750622) AGAP (test code = 2-16 3076337799) BUN (test code = 13 mg/dL 7-23 7493485063) GLUCOSE (test code = 103 mg/dL 70-110 4834445673) CREATININE (test code = 1.33 mg/dL 0.5-1.04 H 9578747929) CALCIUM (test code = 10.0 mg/dL 8.6-10.6 4143005517) eGFR Calculation mL/min/1.73m2 (Non-) (test code = 9246901107) eGFR Calculation mL/min/1.73m2 () (test code = 8449793894) JOSH (test code = JOSH) Association of [...] tests). Lab Interpretation Abnormal (test code = 01321-3) [facility] CenterHepatic Function Panel (ALB, T.PRO, BILI T, BU/BC, ALT, AST, ALK PHOS)2020-02-07 20:24:00 Test Item Value Reference Range Interpretation Comments TOTAL BILI (test code = 2370741391) 0.4 mg/dL 0.1-1.1 BILI UNCON (test code = 6079291558) 0.3 mg/dL 0.1-1.1 BILI CONJ (test code = 2776808677) 0.0 mg/dL 0-0.3 T PROTEIN (test code = 4860647603) 7.4 g/dL 6.3-8.2 ALBUMIN (test code = 0552492862) 4.4 g/dL 3.5-5 ALK PHOS (test code = 6142878306) 99 U/L 34-122 ALTv (test code = 1742-6) 16 U/L 5-35 AST(SGOT) (test code = 9141638807) 19 U/L 13-40 Lab Interpretation (test code = Normal 25374-9) [facility] CenterLipase [id number] 20:24:00 Test Item Value Reference Range Interpretation Comments LIPASE (test code = 5169050149) 393 U/L 0-220 H Lab Interpretation (test code = Abnormal 33988-9) [facility] CenterCBC with Urtzvruioxnl0091-77-28 20:19:00 Test Item Value Reference Range Interpretation Comments WBC (test code = See_Comment [Automated message] 6690-2) The system [employer] generated this result transmitted ref erence range: 4.30 - 1 1.10 10*3/?L. The re ference range was not u sed to interpret this result as normal/abnor mal. RBC (test code = See_Comment [Automated message] 769-8) The system [employer] generated this result transmitted ref erence range: [...] RDW-SD (test code 43.5 fL 39-49.9 = 07893-0) RDW-CV (test code 13.2 % 12-15.5 = 788-0) PLT (test code = See_Comment [Automated message] 777-3) The system [employer] generated this result transmitted ref erence range: 166 - 35 8 10*3/?L. The re ference range was not u sed to interpret this result as normal/abnor mal. MPV (test code = 12.1 fL 9.5-12.9 62823-3) NRBC/100 WBC (test See_Comment [Automat ed message] code = 0729235501) The [employer] which generated this result transmitted ref erence range: 0.0 - 10 .0 /100 WBCs. The refer ence range was not u sed to interpret this result as normal/abnor mal. NRBC x10^3 (test <0.01 See_Comment [Automated message] code = 9692857625) The syste m which generated this result transmitted ref erence range: 10*3/?L. The reference range was not used to interpr et this result as normal/abnormal . GRAN MAT (NEUT) % 62.9 % (test code = 770-8) IMM GRAN % (test 0.50 % code = 8064447869) LYMPH % (test code 26.9 % = 736-9) MONO % (test code 7.8 % = 5905-5) EOS % (test code = 1.2 % 713-8) BASO % (test code 0.7 % = 706-2) GRAN MAT 6.08 10*3/uL 1.88-7.09 x10^3(ANC) (test code = 1595977859) IMM GRAN x10^3 0.05 10*3/uL 0-0.06 (test code = 8647525814) LYMPH x10^3 (test 2.61 10*3/uL 1.32-3.29 code = 731-0) MONO x10^3 (test 0.76 10*3/uL 0.33-0.92 code = 742-7) EOS x10^3 (test 0.12 10*3/uL 0.03-0.39 code = 711-2) BASO x10^3 (test 0.07 10*3/uL 0.01-0.07 code = 704-7) [facility] CenterPOCT [id number] 20:03:00 Test Item Value Reference Range Interpretation Comments POCT PREG (test code = 1605) Negative On board controls acceptable with Present C Line (test code = 3574) POCT PREG LOT # (test code = 3575) [id number] POCT PREG TEST DATE (test 07/11/2021 code = 3576) Lab Interpretation (test code = Normal 21492-3) [facility] ABDOMEN PELVIS W [id number] 00:58:03Impression: 1. Bilateral pyelonephritis.2. Mild right renal [...] cortical scarring.3. Mild hepatomegaly.RL: 460End of Report UnD[facility]coll [facility] HospitalPOCT TEST 2020-01-24 23:22:00 Test Item Value Reference Range Interpretation Comments POCT PREG (test code = 1605) negative On board controls acceptable with present C Line (test code = 3574) POCT PREG LOT # (test code = 3575) [id number] POCT PREG TEST DATE (test 2020-11-10 code = 3576) Lab Interpretation (test code = Normal 88800-1) [facility] CenterURINALYSIS2020-10-13 23:21:00 Test Item Value Reference Range Interpretation Comments APPEARANCE (test code = Hazy Clear A 6223847483) COLOR (test code = Yellow Yellow 9412306527) PH (test code = 4.8-8.0 1095034744) SP GRAVITY (test code = 1.003-1.030 4923059088) GLU U QUAL (test code = Normal Normal 9664785033) BLOOD (test code = Negative Negative 1286212353) KETONES (test code = Negative Negative 0545363367) PROTEIN (test code = Negative Negative 2887-8) UROBILIN (test code = Normal Normal 7120476357) BILIRUBIN (test code = Negative Negative 0048495977) NITRITE (test code = Negative Negative 5621053573) LEUK ROXANE (test code = 250/uL Negative A 3101485154) RBC/HPF (test code = See_Comment [Autom ated message] 6166114355) The system [employer] generated this result transmitted ref erence range: 0 - 3 HP F. The reference range was not used to int erpret this result as normal/abnormal . WBC/HPF (test code = See_Comment H [Autom ated message] 9107144043) The system [employer] generated this result transmitted ref erence range: 0 - 5 HP F. The reference range was not used to int erpret this result as normal/abnormal . BACTERIA (test code = Moderate Negative A 8599393322) MUCOUS (test code = Slight Negative LPF A 3246309407) SQ EPITH (test code = HPF 6674592718) Lab Interpretation (test Abnormal code = 56913-4) [facility]. METABOLIC PANEL (79697)2020-01-24 23:01:00 Test Item Value Reference Range Interpretation Comments NA (test code = 139 mmol/L 135-145 2760292959) K (test code = 4.0 mmol/L 3.5-5 4849881030) CL (test code = 98 mmol/L 98-108 0898890295) CO2 TOTAL (test code = 30 mmol/L 23-31 0349305117) AGAP (test code = 2-16 0398525131) BUN (test code = 13 mg/dL 7-23 0815588582) GLUCOSE (test code = 105 mg/dL 70-110 2560784508) CREATININE (test code 1.00 mg/dL 0.5-1.04 = 8331820374) TOTAL BILI (test code 0.5 mg/dL 0.1-1.1 = 0399132635) CALCIUM (test code = 10.4 mg/dL 8.6-10.6 4662833712) T PROTEIN (test code = 7.7 g/dL 6.3-8.2 2936592822) ALBUMIN (test code = 4.5 g/dL 3.5-5 0964097087) ALK PHOS (test code = 118 U/L 34-122 8562061811) ALTv (test code = 30 U/L 5-35 1742-6) AST(SGOT) (test code = 22 U/L 13-40 5009894959) eGFR Calculation mL/min/1.73m2 (Non-) (test code = 2375202940) eGFR Calculation mL/min/1.73m2 () (test code = 7463951430) JOSH (test code = JOSH) Association of [...] or urine or abnormalities in imaging tests). [facility] CenterLIPASE2020-10-13 23:00:00 Test Item Value Reference Range Interpretation Comments LIPASE (test code = 0724404835) 125 U/L 0-220 Lab Interpretation (test code = Normal 58051-6) [facility] CenterCB WITH [id number] 22:55:00 Test Item Value Reference Range Interpretation Comments WBC (test code = See_Comment [Automated message] 6690-2) The system [employer] generated this result transmitted ref erence range: 4.30 - 1 1.10 10*3/?L. The re ference range was not u sed to interpret this result as normal/abnor mal. RBC (test code = See_Comment [Automated message] 799-8) The system [employer] generated this result transmitted ref erence range: [...] RDW-SD (test code 43.5 fL 39-49.9 = 52182-0) RDW-CV (test code 13.3 % 12-15.5 = 788-0) PLT (test code = See_Comment [Automated message] 777-3) The system [employer] generated this result transmitted ref erence range: 166 - 35 8 10*3/?L. The re ference range was not u sed to interpret this result as normal/abnor mal. MPV (test code = 11.6 fL 9.5-12.9 95037-8) NRBC/100 WBC (test See_Comment [Automat ed message] code = 7299118672) The syste m which generated this result transmitted ref erence range: 0.0 - 10 .0 /100 WBCs. The refer ence range was not u sed to interpret this result as normal/abnor mal. NRBC x10^3 (test <0.01 See_Comment [Automated message] code = 0963904085) The syste m which generated this result transmitted ref erence range: 10*3/?L. The reference range was not used to interpr et this result as normal/abnormal . GRAN MAT (NEUT) % 59.7 % (test code = 770-8) IMM GRAN % (test 0.40 % code = 5148851296) LYMPH % (test code 29.5 % = 736-9) MONO % (test code 8.2 % = 5905-5) EOS % (test code = 1.7 % 713-8) BASO % (test code 0.5 % = 706-2) GRAN MAT 5.93 10*3/uL 1.88-7.09 x10^3(ANC) (test code = 2119601292) IMM GRAN x10^3 0.04 10*3/uL 0-0.06 (test code = 7854953292) LYMPH x10^3 (test 2.93 10*3/uL 1.32-3.29 code = 731-0) MONO x10^3 (test 0.81 10*3/uL 0.33-0.92 code = 742-7) EOS x10^3 (test 0.17 10*3/uL 0.03-0.39 code = 711-2) BASO x10^3 (test 0.05 10*3/uL 0.01-0.07 code = 704-7) [facility] CenterCT ABDOMEN PELVIS W [id number] 19:13:50CT Abdomen and Pelvis with intravenous contrast. [...] intrapelvic abnormalities detected.Please see additional comments above. [facility], Radiant Results Inft User - [...] or intrapelvic abnormalities detected.Please see additional comments above.[facility] Wvuxsdrvei7372-92-14 18:13:00 Test Item Value Reference Range Interpretation Comments APPEARANCE (test code = Clear Clear 0965364580) COLOR (test code = Yellow Yellow 9939955413) PH (test code = 4.8-8.0 3711446068) SP GRAVITY (test code = 1.003-1.030 9092772286) GLU U QUAL (test code = Normal Normal 1361666276) BLOOD (test code = Negative Negative 8788610413) KETONES (test code = Negative Negative 1916913415) PROTEIN (test code = Negative Negative 2887-8) UROBILIN (test code = Normal Normal 1639774674) BILIRUBIN (test code = Negative Negative 5821910006) NITRITE (test code = Negative Negative 6687730511) LEUK ROXANE (test code = Negative Negative 5995809860) RBC/HPF (test code = See_Comment [Autom ated message] 1006008406) The system [employer] generated this result transmitted ref erence range: 0 - 3 HP F. The reference range was not used to int erpret this result as normal/abnormal . WBC/HPF (test code = See_Comment [Autom ated message] 6854749713) The system [employer] generated this result transmitted ref erence range: 0 - 5 HP F. The reference range was not used to int erpret this result as normal/abnormal . BACTERIA (test code = Negative Negative 8172972093) MUCOUS (test code = Slight Negative LPF A 8822746380) SQ EPITH (test code = HPF 8309357952) Lab Interpretation (test Abnormal code = 50756-3) [facility]. METABOLIC PANEL (14001)2019-06-02 18:09:00 Test Item Value Reference Range Interpretation Comments NA (test code = 138 mmol/L 135-145 6145240465) K (test code = 4.2 mmol/L 3.5-5 7648542067) CL (test code = 102 mmol/L 98-108 5227386757) CO2 TOTAL (test code = 27 mmol/L 23-31 3092975226) AGAP (test code = 2-16 5681751089) BUN (test code = 12 mg/dL 7-23 8101218436) GLUCOSE (test code = 93 mg/dL 70-110 1063778468) CREATININE (test code 0.73 mg/dL 0.5-1.04 = 8405270477) TOTAL BILI (test code 0.4 mg/dL 0.1-1.1 = 6346444684) CALCIUM (test code = 9.5 mg/dL 8.6-10.6 2973407650) T PROTEIN (test code = 7.3 g/dL 6.3-8.2 0994838214) ALBUMIN (test code = 4.6 g/dL 3.5-5 0684239631) ALK PHOS (test code = 84 U/L 34-122 8714397231) ALTv (test code = 12 U/L 5-35 1742-6) AST(SGOT) (test code = 21 U/L 13-40 1729136553) eGFR Calculation mL/min/1.73m2 (Non-) (test code = 3603695642) eGFR Calculation mL/min/1.73m2 () (test code = 3944350011) JOSH (test code = JOSH) Association of [...] or urine or abnormalities in imaging tests). [facility] CenterLipase Kjmhb2986-25-94 18:09:00 Test Item Value Reference Range Interpretation Comments LIPASE (test code = 8664014970) 108 U/L 0-220 Lab Interpretation (test code = Normal 63922-9) [facility] CenterCBC WITH [id number] 18:01:00 Test Item Value Reference Range Interpretation Comments WBC (test code = See_Comment [Automated message] 6690-2) The system [employer] generated this result transmitted ref erence range: 4.30 - 1 1.10 10*3/?L. The re ference range was not u sed to interpret this result as normal/abnor mal. RBC (test code = See_Comment [Automated message] 049-8) The system [employer] generated this result transmitted ref erence range: [...] RDW-SD (test code 46.2 fL 39-49.9 = 28060-7) RDW-CV (test code 14.1 % 12-15.5 = 788-0) PLT (test code = See_Comment [Automated message] 777-3) The system [employer] generated this result transmitted ref erence range: 166 - 35 8 10*3/?L. The re ference range was not u sed to interpret this result as normal/abnor mal. MPV (test code = 10.8 fL 9.5-12.9 68312-5) NRBC/100 WBC (test See_Comment [Automat ed message] code = 2910017392) The [employer]ste [employer] which generated this result transmitted ref erence range: 0.0 - 10 .0 /100 WBCs. The refer ence range was not u sed to interpret this result as normal/abnor mal. NRBC x10^3 (test <0.01 See_Comment [Automated message] code = 1834658428) The syste m which generated this result transmitted ref erence range: 10*3/?L. The reference range was not used to interpr et this result as normal/abnormal . GRAN MAT (NEUT) % 69.9 % (test code = 770-8) IMM GRAN % (test 0.70 % code = 1570351373) LYMPH % (test code 21.2 % = 736-9) MONO % (test code 6.2 % = 5905-5) EOS % (test code = 1.4 % 713-8) BASO % (test code 0.6 % = 706-2) GRAN MAT 6.08 10*3/uL 1.88-7.09 x10^3(ANC) (test code = 3408680489) IMM GRAN x10^3 0.06 10*3/uL 0-0.06 (test code = 0886422553) LYMPH x10^3 (test 1.84 10*3/uL 1.32-3.29 code = 731-0) MONO x10^3 (test 0.54 10*3/uL 0.33-0.92 code = 742-7) EOS x10^3 (test 0.12 10*3/uL 0.03-0.39 code = 711-2) BASO x10^3 (test 0.05 10*3/uL 0.01-0.07 code = 704-7) [facility] CenterPOCT Test, Aihak6690-08-48 17:48:00 Test Item Value Reference Range Interpretation Comments POCT PREG (test code = 1605) negative POCT PREG LOT # (test code = 3575) [id number] POCT PREG TEST DATE (test 11/10/2020 code = 3576) Lab Interpretation (test code = Normal 50423-7) [facility]- XR CHEST 1 [id number] 19:54:00 Name: VIC REEVES [facility] : 1980 Age/S: 38 / F [address] Unit #: [id number] Loc: [place] [address] Phys: Génesis King MD Acct: [id number] Dis Date: Status: ADM IN PHONE #: [phone] Exam Date: 02/22/20191940 FAX #: Reason: SOB EXAMS: CPT: [id number] XR CHEST 1 V 24890 Fluoro Time: DAP (Gy m2): Air Kerma (mGy): DICTATION LOCATION: H48 HISTORY: Female, 38 years ofage with SOB EXAM: CHEST X-RAY, ONE VIEW [...] King MD PAGE1 Signed Report Name: VIC REEVES [place] : 1980 Age/S: 38 / F [address] [id number] Loc: [place] [address] Phys: Génesis King MD Acct: [id number] Dis Date: Status: ADM IN PHONE #: [phone] Exam Date: 02/22/2019 194 FAX #: Reason: SOB EXAMS: CPT: [id number] XR CHEST 1 V 32801 Fluoro Time: DAP (Gy m2): Air Kerma (mGy): (Continued) Technologist: Jordan Chacon, RT(R)(CT) Trnscb Date/Time: 02/22/2019 (1953) [email or web address] Orig Print D/T: S: 02/22/2019 (1956) PAGE 2 Signed Report- US RETRO [id number] 15:32:00 Name: VIC REEVES [place] : 1980 Age/S: 38 / F [address] Unit #: [id number] Loc: [place] [address] Phys: Génesis King MD Acct: [id number] Dis Date: Status: ADM IN DUTCH NE #: [phone] Exam Date: 02/22/2019 1200 FAX #: Reason: back pain EXAMS: CPT: [id number] US RETRO LTD 54969 EXAMINATION: - US RETRO LTD. LOCATION: T18. HISTORY: Back pain, pyelonephritis. COMPARISON: CT abdomen/pelvis 02/19/19. FINDINGS: Sonographic evaluation of the kidneys and bladder was performed utilizing velez scale, pulse Doppler and color flow imaging. The right kidney measures 12.7 cm and the left kidney measures 13 cm. The parenchymal echogenicity is within normal limits on both sides.There is no hydronephrosis. No calculus is identified. [...] Génesis King MD Technologist: Nina Andrews, RT(R),MILINDMS(AB) Trnmdb Date/Time: 02/22/2019 (1532) [email or web address] PAGE 1 Signed Report Name: VIC REEVES [place] : 1980 Age/S: 38 / F [address] Unit #: [id number] Loc: [place] [address] Phys: Génesis King MD Acct: [id number] Dis Date: Status: ADM IN PHONE #: [phone] Exam Date: 02/22/2019 1200 FAX #: Reason: back pain EXAMS: CPT: [id number] RETRO LTD 09649 (Continued) Orig Print D/T: S: 02/22/2019 (1535) Probe: PAGE 2 Signed ReportCBC W/AUTO [id number] 12:09:00 Test Item Value Reference Range Interpretation [...] MDIFF) CONSISTA NT WITH AUTO DIFFERENTIAL. RBC [id number] 12:09:00 Test Item Value Reference Range Interpretation Comments ANISOCYTOSIS (test code = 1+ NONE ANISO) MICROCYTOSIS (test code = 1+ ON SCAN NONE MICR) PLATELET ESTIMATE (test ADEQUATE THOUSAND ADEQUATE code = PLTEST) PLATELET MORPHOLOGY (test NORMAL code = PLTMORPH) CBC W/AUTO [id number] 12:08:00 Test Item Value Reference Range Interpretation [...] = NO DIFF/SCN CRITERIA MDIFF) CBC W/AUTO [id number] 12:08:00 Test Item Value Reference Range Interpretation [...] code = NO DIFF/SCN CRITERIA MDIFF) RBC [id number] 12:08:00 Test Item Value Reference Range Interpretation Comments ANISOCYTOSIS (test code = 1+ NONE ANISO) MICROCYTOSIS (test code = 1+ ON SCAN NONE MICR) PLATELET ESTIMATE (test ADEQUATE THOUSAND ADEQUATE code = PLTEST) PLATELET MORPHOLOGY (test NORMAL code = PLTMORPH) CBC W/AUTO [id number] 12:08:00 Test Item Value Reference Range Interpretation [...] = NO DIFF/SCN CRITERIA MDIFF) BASIC METABOLIC [id number] 07:07:00 Test Item Value Reference Range Interpretation [...] CA) 7.8 MG/DL 8.5-10.1 L CBC W/AUTO [id number] 06:58:00 Test Item Value Reference Range Interpretation [...] ng/mL are obtained. - CT ABD PELVIS [id number] 20:34:00 Name: VIC REEVES [place] : 1980 Age/S: 38 / F [address] Unit #: [id number] Loc: [place] [address] Phys: Cony Partida MD Acct: [id number] Dis Date: Status: ADM IN PHONE#: [phone] Exam Date: 02/19/20192024 FAX #: Reason: acute PN, possible ureteral stone EXAMS: CPT: [id number] CT ABD PELVIS W/CONT 370[address] CT Abdomen and Pelvis with contrast. Location: H9 Clinical indication: 38-year-old with pyelonephritis and possible ureteral stone. Comparison: None Technique: C omputed axial images were obtained from the diaphragms [...] hydronephrosis. at 2033 Reported and signed by: Idania Lawrence CC: Jordan Jean MD; Cony Partida MD Technologist:Celia Cedeño RT(R)(CT) CTDI: DLP: Trnscb Date/Time: 02/19/2019 (2033) [email or web address] Orig Print D/T: S: 02/19/2019 (2036) PAGE 1 Signed ReportUA RFLX MICR CULT IF [id number] 19:43:00 Test Item Value Reference Range Interpretation [...] culture: Flank PainUA RFLX MICR CULT IF [id number] 19:28:00 Test Item Value Reference Range Interpretation [...] code = HCG) SUGGESTIVE OF E LOAN RISE S TWO FOLD EVERY 2 DA YS; SUGGEST RECONFI RMING AFTER 2 DAYS. 150,000-200,[address] TRIMESTER 10,00 0 - 50,000 2ND & 3R D TRIMESTER LACTIC [id number] 18:52:00 Test Item Value Reference Range Interpretation Comments LACTIC ACID (test code = LACT) 0.7 mmol/L 0.4-2.0 N CBC W/AUTO [id number] 17:55:00 Test Item Value Reference Range Interpretation [...] MDIFF) CONSISTA NT WITH AUTO DIFFERENTIAL. RBC [id number] 17:55:00 Test Item Value Reference Range Interpretation Comments ANISOCYTOSIS (test code = ANISO) 1+ NONE CBC W/AUTO [id number] 17:54:00 Test Item Value Reference Range Interpretation [...] CONSISTA NT WITH AUTO DIFFERENTIAL. CBC W/AUTO [id number] 17:54:00 Test Item Value Reference Range Interpretation [...] DIFF REQUIRED NO DIFF/SCN CRITERIA SLIDE R [place] (test code = MDIFF) CONSISTA NT WITH AUTO DIFFERENTIAL. BASIC METABOLIC [id number] 17:43:00 Test Item Value Reference Range Interpretation [...] Unit/L 84-246 N code = LDH) LACTIC [id number] 17:43:00 Test Item Value Reference Range Interpretation Comments LACTIC ACID (test code = LACT) 0.8 mmol/L 0.4-2.0 N BASIC METABOLIC [id number] 17:36:00 Test Item Value Reference Range Interpretation [...] code Unit/L 84-246 = LDH) CBC W/AUTO [id number] 17:35:00 Test Item Value Reference Range Interpretation [...] REQUIRED (test code = DIFF/SCN CRITERIA MDIFF) Notes Date/Time Note Provider Source 2019-02-23 09:00:00-00:00 [facility] ([facility]) Discharge Summary REPORT#:[id number] REPORT STATUS: Signed DATE:02/23/19 TIME:899 PATIENT: VIC REEVES UNIT #: [id number] ROOM/BED: [place] [address] : 80 AGE: 38 SEX: F ATTEND: Kushal Partida MD ADM AUTHOR: Génesis King MD * ALL edits or amendments must be made on the [employer]computer document * General Information Date of admission: Observation Start Date: Date of admission: 02/19/19 Date of discharge: 02/23/19 Admission diagnosis: R flank pain Discharge diagnosis: OBSTRUCTIVE UROPATHY / R pyelonephrtitis - migdalia r with IVF and Antibx - cultures neg and patient feels better R pyelonephritis R upper pole renal cyst Severe sepsis secondary to R Pyelonephritis Depression and other comorbidities resume home meds and adjust as needed better with IVF and Antibx, will dc home on 10 days of PO antibx, patient better and wants to go home Hospital course: OBSTRUCTIVE UROPATHY / R pyelonephrtitis - migdalia r with IVF and Antibx - cultures neg and patient feels better R pyelonephritis R upper pole renal cyst Severe sepsis secondary to R Pyelonephritis Depression and other comorbidities resume home meds and adjust as needed better with IVF and Antibx, will dc home on 10 days of PO antibx, patient better and wants to go home Consultants: urology Pt. condition on discharge: improved, stable Objective VS/I O Last Documented: Result Date Time Pulse Ox 96 02/23 718 B/P 158/97 02/23 718 B/P Mean 117.4 02/23 718 O2 Delivery Room air 02/23 718 Temp 98.1 02/23 718 Pulse 60 02/23 718 Resp 18 02/23 718 O2 Flow Rate 2.214180 02/22 2014 24 hour I O ending at 0700: 02/23 0700 02/22 1900 Intake Total 960.00 280 Output Total Balance 960.00 280 Intake, IV 600.00 Intake, Oral 360 280 Number Voids 1 Patient Weight Weight (lb): 155 Weight (oz): 6.81 Weight (kg): 70.500 General appearance: alert ENT: normal nose Cardiovascular: regular rate rhythm GI: soft Extremities: moves all Skin: dry Discharge Instructions Activity: as tolerated Prescriptions: on chart Discharge management: greater than 30 mins at 0905 RPT #: [id number] END OF REPORT 2019-02-22 22:45:00-00:00 [facility] Urology Progress Note REPORT#:[id number] REPORT STATUS: Signed DATE:02/22/19 TIME:2244 PATIENT: VIC REEVES UNIT #: [id number] ROOM/BED: [place] [address] : 80 AGE: 38 SEX: F ATTEND: Kushal Partida MD ADM AUTHOR: Art Nguyen MD * ALL edits or amendments must be made on the [employer]/computer document * Subjective Chief Complaint: pyelonephritis Comments: having pain on right side, now bilateral flank no dysuria Objective Physical Exam VS/I O: Last Documented: Result Date Time O2 Delivery Nasal cannula 02/22 2014 O2 Flow Rate 2.238241 02/22 2014 Pulse Ox 100 02/22 1954 B/P 130/69 02/22 1954 B/P Mean 89.2 02/22 1954 Temp 98.8 02/22 1954 Pulse 69 02/22 1954 Resp 16 02/22 1954 24 hour I O ending at 0700: 02/22 0700 02/21 1900 Intake Total Output Total Balance Number 1 Bowel Movements Patient Weight Weight (lb): 155 Weight (oz): 6.81 Weight (kg): 70.500 Head/Eyes: atraumatic, EOMI, normocephalic Respiratory: no distress, aerating well, symmetr ic expansion Extremities: no edema, no clubbing, no cyanosis Diagnosis, Assessment Plan Free Text A P: A: pyelonephritis ? passed stone, though more likely ureteritis/py elonephritis P:On rocephin abx per primary cultures negative, though urine culture contamin ated no urologic procedural intervention repeat renal US noted, no hydronephrosis ?right renal cyst likely artifcat Electronically Signed by Art Nguyen MD on 02/11 06/01 at 2248 RPT #: [id number] END OF REPORT 2019-02-22 09:58:00-00:00 [facility] ([facility]) Hospitalist Progress Note REPORT#:[id number] REPORT STATUS: Signed DATE:02/22/19 TIME:957 PATIENT: VIC REEVES UNIT #: [id number] ROOM/BED: [place] [address] : 80 AGE: 38 SEX: F ATTEND: Kushal Partida MD ADM AUTHOR: Génesis King MD * ALL edits or amendments must be made on the [employer]/computer document * Subjective Chief Complaint: c/o L flank pain, no nausea, no vomiting, no fev er Review of Systems Constitutional: Reports: chills, fever, generalized weakness. Skin: Denies: bruising. Allergy/Immun: Denies: itching. Eyes: Denies: redness, discharge. ENT: Denies: hearing loss. Respiratory: Denies: SOB. Cardiovascular: Denies: chest pain. GI: Reports: nausea, vomiting. : Reports: dysuria, flank pain. Musculoskeletal: Denies: extremity swelling. Heme: Denies: bleeding. Neuro: Denies: confusion. Psych: Denies: agitation. Objective General VS/I O: Vital Signs: Date Time Temp Pulse Resp B/P B/P Pulse O2 O2 F low FiO2 Mean Ox Delivery Rate 02/22 0703 98.4 61 17 117/73 87.9 96 Room air 02/22 0339 99.3 69 18 118/77 90.8 94 02/22 0025 98.4 61 15 128/77 93.9 95 02/21 1901 98.6 58 18 122/79 93.1 94 02/21 1530 98.1 75 18 129/86 100.3 98 Room air 02/21 1143 98.1 51 17 106/64 77.6 96 Room air 24 hour I O ending at 0700: 02/22 0700 02/21 1900 Intake Total Output Total Balance Number 1 Bowel Movements Patient Weight Weight (lb): 155 Weight (oz): 6.81 Weight (kg): 70.500 Physical Exam General appearance: alert Head/Eyes: atraumatic ENT: normal nose Neck: full range of motion Cardiovascular: normal capillary refill, regular rate rhythm Respiratory: aerating well, no distress Abdomen: tenderness, normal bowel sounds, soft, no distention, no guarding Genitourinary: urine Rectal: deferred Extremities: moves all, normal capillary refill, normal range of motion, no edema Neuro/FUEL HANDLER: alert, 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 OBSTRUCTIVE UROPATHY with minimal dil atation of R ureter- report from [facility] CT A/P WITHOUT CONTRAST possibly passed ureteral stone will do Toradol prn for inflammatory pain consulted urology Dr Nguyen Repeat CT shows no stone but R Pyelo 2, Acute PN ua from outside ER with moderate leucocytes, nit rites, proteinuria and large blood continue IV ceftriaxone repeat UA here with pyuria Blood cx pending and lactic acid neg PCT 0.22 3. Severe sepsis with low BP, tachycradia here, leucocytosis wbc 18.4 2/2 acute PN IV abx IVF 4. Depression and other comorbidities resume home meds and adjust as needed DVT Px- no anticoagulation needed patient young and ambulatory Continue antibx, appreciate urology consult, fol low up labs L flank pain today , new, check renal US, likely ms spasm, add dilaudid at 1000 RPT #: [id number] END OF REPORT 2019-02-21 20:37:00-00:00 [facility] ([facility]) Urology Progress Note REPORT#:[id number] REPORT STATUS: Signed DATE:02/21/19 TIME:2036 PATIENT: VIC REEVES UNIT #: [id number] ROOM/BED: [place] [address] : 80 AGE: 38 SEX: F ATTEND: Kristopher Partida MD ADM AUTHOR: Art Nguyen MD * ALL edits or amendments must be made on the [employer]/computer document * Subjective Chief Complaint: pyelonephritis Comments: pain improving along with fevers eating well denies dysuria, hematuria Objective Physical Exam VS/I O: Last Documented: Result Date Time Pulse Ox 94 02/21 1901 B/P 122/79 02/21 1901 B/P Mean 93.1 02/21 1901 Temp 98.6 02/21 1901 Pulse 58 02/21 1901 Resp 18 02/21 1901 O2 Delivery Room air 02/21 1530 24 hour I O ending at 0700: 02/21 0700 02/20 1900 Intake Total 2550.00 520 Output Total Balance 2550.00 520 Intake, IV 1750.00 Intake, Oral 800 520 Number Voids 3 1 Patient Weight Weight (lb): 155 Weight (oz): 6.81 Weight (kg): 70.500 General appearance: alert, awake, oriented, no a cute distress, pleasant Head/Eyes: atraumatic, EOMI, normocephalic Respiratory: no distress, aerating well, symmetr ic expansion Extremities: no edema, no clubbing, no cyanosis Results Results: no new labs Diagnosis, Assessment Plan Free Text A P: A: pyelonephritis ? passed stone, though more likely ureteritis P:On rocephin abx per primary cultures prelim negative, though urine culture c ontaminated no urologic procedural intervention Electronically Signed by Art Nguyen MD on 02/11 05/01 at 2047 RPT #: [id number] END OF REPORT 2019-02-21 10:37:00-00:00 [facility] Hospitalist Progress Note REPORT#:[id number] REPORT STATUS: Signed DATE:02/21/19 TIME:1037 PATIENT: VIC REEVES UNIT #: [id number] ROOM/BED: 309-1 : 80 AGE: 38 SEX: F ATTEND: Kushal Partida MD ADM AUTHOR: Génesis King MD * ALL edits or amendments must be made on the [employer] document * Subjective Chief Complaint: R flank pain 09/20 today fevers improving, no nausea, no vomiting Review of Systems Constitutional: Reports: chills, fever, generalized weakness. Skin: Denies: bruising. Allergy/Immun: Denies: itching. Eyes: Denies: redness, discharge. ENT: Denies: hearing loss. Respiratory: Denies: SOB. Cardiovascular: Denies: chest pain. GI: Reports: nausea, vomiting. : Reports: dysuria, flank pain. Musculoskeletal: Denies: extremity swelling. Heme: Denies: bleeding. Neuro: Denies: confusion. Psych: Denies: agitation. Objective General VS/I O: Vital Signs: Date Time Temp Pulse Resp B/P B/P Pulse O2 O2 Flow FiO2 Mean Ox Delivery Rate 02/21 0731 98.6 65 16 118/80 92.6 95 Room air 02/21 0357 100.6 78 16 120/81 94.0 97 02/21 0038 99.1 73 16 116/79 91.5 96 02/20 2109 74 16 110/72 85.0 99 02/20 2109 74 16 110/72 85.0 99 02/20 1958 98.8 64 16 91/65 73.5 99 02/20 1651 98.8 65 18 98/56 70.1 97 02/20 1651 98.8 65 18 98/56 70.1 97 02/20 1209 98.4 86 16 92/56 67.7 97 02/20 1209 98.4 86 16 92/56 67.7 97 24 hour I O ending at 0700: 02/21 0700 02/20 1900 Intake Total 2550.00 520 Output Total Balance 2550.00 520 Intake, IV 1750.00 Intake, Oral 800 520 Number Voids 3 1 Patient Weight Weight (lb): 155 Weight (oz): 6.81 Weight (kg): 70.500 Physical Exam General appearance: alert, awake Head/Eyes: atraumatic ENT: normal nose Neck: full range of motion Cardiovascular: normal capillary refill, regular rate rhythm Respiratory: aerating well, no distress Abdomen: tenderness, normal bowel sounds, soft, no distention, no guarding Genitourinary: urine Rectal: deferred Extremities: moves all, normal capillary refill, normal range of motion, no edema Neuro/FUEL HANDLER: alert, 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 OBSTRUCTIVE UROPATHY with minimal dil atation of R ureter- report from [facility] ER CT A/P WITHOUT CONTRAST possibly passed ureteral stone will do Toradol prn for inflammatory pain consulted urology Dr Nguyen Repeat CT shows no stone but R Pyelo 2, Acute PN ua from outside ER with moderate leucocytes, nit rites, proteinuria and large blood continue IV ceftriaxone repeat UA here with pyuria Blood cx pending and lactic acid neg PCT 0.22 3. Severe sepsis with low BP, tachycradia here, leucocytosis wbc 18.4 2/2 acute PN IV abx IVF 4. Depression and other comorbidities resume home meds and adjust as needed DVT Px- no anticoagulation needed patient young and ambulatory Continue antibx, await urology consult, follow u p labs at 1039 RPT #: [id number] END OF REPORT 2019-02-20 22:11:00-00:00 [id number] [address] PATIENT NAME: VIC REEVES ADMIT DATE: 9 ACCOUNT NO: [id number] ROOM NO: L.309 AGE: 38 REPORT TYPE: CONSULTATION SEX: F ADMITTING PHYSICIAN: Cnoy Partida MD ATTENDING PHYSICIAN: Cony Partida MD CONSULTATION DATE: 02/20/2019 CONSULTING PHYSICIAN: Art Nguyen MD CONSULTING PHYSICIAN: Art Nguyen MD REQUESTING PHYSICIAN: Cony Partida MD REASON FOR REQUEST: Hydronephrosis. HISTORY OF PRESENT ILLNESS: Ms. Reeves is a ple asant 38-year-old female who went to an outside Emergency Room yesterday seco ndary to severe right-sided flank pain. The pain was reported to radiate to the right lower quadrant, she underwent CT imaging. There were no findings of any calculus; however, there were findings of dilation of the right ureter, l eft foot inflammatory changes of the right kidney. The patient was admitted se condary to continued pain. REVIEW OF SYSTEMS: No fevers, no chills. No naus ea, no vomiting. No chest pain, no shortness of breath. No dysuria, no elyse ss hematuria. Otherwise, negative on 10-point review of systems. PAST MEDICAL HISTORY: Depression, chronic back p ain and some tachycardia. PAST SURGICAL HISTORY: None. SOCIAL HISTORY: Negative x3. FAMILY HISTORY: Noncontributory. PHYSICAL EXAMINATION: VITAL SIGNS: Her T-max is 98.8, pulse 64, blood pressure 110/72. GENERAL: The patient in no acute distress, alert , awake and oriented. HEENT: Atraumatic and normocephalic. EOMI. NECK: Supple. Trachea midline. LUNGS: Normal respiratory effort. ABDOMEN: Nondistended. Moderate right CVA tender ness. EXTREMITIES: No gross deficits or edema. LABORATORY DATA: Creatinine of 0.7, BUN 7. Her white count is 18.4, hemoglobin count of 10.2. Urinalysis on admission shows pos itive for rbc's, negative nitrites, 1+ leukocyte esterase. PATIENT NAME: VIC REEVES 3001 Imaging shows a right pyelonephritis, right uret eral calculus. Her medical history is unremarkable. ASSESSMENT AND PLAN: This is a 38-year-old female, presentation consistent with a right pyelonephritis, including dilati on, unclear whether she passed a stone and she has continued to experience significant pain symptoms along with leukocytosis. I agree with broad-spectrum antibi otics with Rocephin, will follow up with the urine culture which will be w ith symptomatic control with Toradol as needed. We will continue to follow a long with you. Further recommendations are pending. Dictated By: Art Nguyen MD WT: CON:L.YANET/NAVARRO/LEX Conf#: [id number]/DID#: [id number] Authenticated and Edited by Art Nguyen MD On 10:33:45 PM Electronically Signed by Art Nguyen MD on at 2235 PATIENT NAME: VIC REEVES [id number] 2019-02-20 12:46:00-00:00 [facility] Hospitalist Progress Note REPORT#:[id number] REPORT STATUS: Signed DATE:02/20/19 TIME:1246 PATIENT: VIC REEVES UNIT #: [id number] ROOM/BED: [place] [address] : 80 AGE: 38 SEX: F ATTEND: Kushal Partida MD ADM AUTHOR: Cony Partida MD * ALL edits or amendments must be made on the [employer]/computer document * Subjective Chief Complaint: R flank pain fevers Review of Systems Neuro: Denies: confusion. Objective General VS/I O: Vital Signs: Date Time Temp Pulse Resp B/P B/P Pulse O2 O2 F low FiO2 Mean Ox Delivery Rate 02/20 1209 36.9 86 16 92/56 67.7 97 02/20 0740 36.8 77 16 102/65 77.6 97 02/20 0428 38.1 85 16 92/48 63.0 100 02/20 0011 36.9 70 16 109/71 83.6 96 02/19 1919 37.4 89 16 98/61 73.1 99 Room air 02/19 1747 36.7 111 104/69 80.9 99 Room air 02/19 1650 38.1 80 19 96/57 70 Nasal cannula 24 hour I O ending at 0700: 02/20 0700 02/19 1900 Intake Total 800.00 Output Total Balance 800.00 Intake, IV 800.00 Number Voids 4 Patient 70.5 kg Weight Weight Bed scale Measurement Method Patient Weight Weight (lb): 155 Weight (oz): 6.81 Weight (kg): 70.500 Physical Exam General appearance: alert, awake Cardiovascular: normal capillary refill, regular rate rhythm Respiratory: aerating well, no distress Abdomen: tenderness, normal bowel sounds, soft, no distention, no guarding Extremities: moves all, normal capillary refill, normal range of motion, no edema Neuro/FUEL HANDLER: alert, oriented X 3 Psychiatry: normal affect Results Findings/Data: Laboratory Tests 02/19 02/19 02/19 1815 1815 1700 Chemistry Lactic Acid (0.4 - 2.0 mmol/L) 0.7 0.8 Procalcitonin (0.00 - 0.05 ng/mL) 0.22 H 02/19 1700 Chemistry Sodium (134 - 147 mmol/L) 137 Potassium (3.4 - 5.0 mmol/L) 3.3 L Chloride (100 - 108 mmol/L) 106 Carbon Dioxide (21 - 32 mmol/L) 25 Anion Gap (4.0 - 15.0 GAP calc) 6.0 BUN (7 - 18 MG/DL) 7 Creatinine (0.6 - 1.0 MG/DL) 0.6 Glomerular Filtr Rate (>60 estGFR) >=60 max est imate Glucose (70 - 110 MG/DL) 86 Calcium (8.5 - 10.1 MG/DL) 7.4 L Lactate Dehydrogenase (84 - 246 Unit/L) 131 Laboratory Tests 02/19 1700 Hematology WBC (3.5 - 11.0 K/mm3) 18.4 H RBC (4.70 - 6.10 M/mm3) 3.88 L Hgb (10.4 - 14.9 G/DL) 10.2 L Hct (31.5 - 44.1 %) 33.0 MCV (84.5 - 98.6 Fl) 85.1 MCH (27.0 - 34.2 pg) 26.3 L MCHC (31.5 - 34.0 G/DL) 30.9 L Plt Count (150 - 450 K/mm3) 224.0 MPV (7.0 - 10.5 fL) 11.00 H Neut % (Auto) (40 - 76 %) 84.6 H Lymph % (Auto) (20.5 - 51.1 %) 5.0 L [place] % (Auto) (1.7 - 9.3 %) 10.2 H Eos % (Auto) (0.0 - 6.0 %) 0.1 Baso % (Auto) (0.0 - 2.0 %) 0.1 Neut # (Auto) (1.8 - 7.6 K/mm3) 15.61 H Lymph # (Auto) (0.6 - 3.2 K/mm3) 0.9 [place] # (Auto) (0.3 - 1.1 K/mm3) 1.9 H Eos # (Auto) (0.0 - 0.4 K/mm3) 0.0 Baso # (Auto) (0.0 - 0.1 K/mm3) 0.0 Add Manual Diff (CRITERIA DIFF/SCN) NO Anisocytosis (NONE) 1+ Laboratory Tests 02/19 1830 Miscellaneous Maternal Serum HCG (0 - 6 mi-IU/ML) < 1 Laboratory Tests 02/19 1900 Urines Urine Color (YEL/STRAW discript) YELLOW Urine Appearance (CLEAR discript) CLEAR Urine pH (5.0 - 7.0 pH UNITS) 6.0 Ur Specific [place] (1.005 - 1.030 SG) 1.020 Urine Protein (NEG mg/dL) TRACE H Urine Glucose (UA) (NEG mg/dL) NEGATIVE Urine Ketones (NEG mg/dL) 3+ H Urine Blood (NEG mg/DL) 2+ H Urine Nitrite (NEG SCREEN) NEGATIVE Urine Bilirubin (NEG mg/dL) NEGATIVE Urine Urobilinogen (<2.0 mg/dL) 0.2 Ur Leukocyte Esterase (NEGATIVE Leuk/mcL) 1+ H Urine RBC (0 - 3 #RBC/HPF) 1-3 Urine WBC (0 - 3 #WBC/HPF) 10-20 H Ur Squamous Epith Cells (NONE /HPF) TRACE Urine Bacteria (NONE - TRACE /HPF) TRACE Urine Culture Screen (Culture CHK Criteria) YES ,WBC>10 EPI<25 Radiology data: Recent Impressions: CAT SCAN - CT ABD PELVIS W/CONT 02/19 2021 Report Impression - Status: SIGNED Entered: 02/19/20192036 Impression: 1. Right renal pyelonephritis. 2. No ureteral calculus or hydronephrosis. Impression By: [email or web address] - Jatinder Funez M.D. Diagnosis, Assessment Plan Free Text DxA P Notes Free Text DxA P Notes: 1. OBSTRUCTIVE UROPATHY with minimal dil atation of R ureter- report from [facility] ER CT A/P WITHOUT CONTRAST possibly passed ureteral stone will do Toradol prn for inflammatory pain consulted urology Dr Nguyen will get further imaging to evaluate the obstruc tive uropathy. CT A/P with contrast neg 2, Acute PN ua from outside ER with moderate leucocytes, nit rites, proteinuria and large blood continue IV ceftriaxone repeat UA here with pyuria Blood cx pending and lactic acid neg PCT 0.22 3. Severe sepsis with low BP, tachycradia here, leucocytosis wbc 18.4 2/2 acute PN IV abx IVF 4. Depression and other comorbidities resume home meds and adjust as needed DVT Px- no anticoagulation needed patient young and ambulatory I have ordered a PICC line as BP has been border line low Electronically Signed by Cony Partida MD on 02/11 at 1251 RPT #: [id number] END OF REPORT 2019-02-19 17:53:00-00:00 [facility] ([facility]) Hospitalist History Physical REPORT#:[id number] REPORT STATUS: Signed DATE:02/19/19 TIME:1753 PATIENT: VIC REEVES UNIT #: [id number] ROOM/BED: [place] [id number] : 80 AGE: 38 SEX: F ATTEND: Kushal Partida MD ADM AUTHOR: Cony Partida MD * ALL edits or amendments must be made on the [employer]/computer document * History of Present Illness HPI Chief complaint: R flank pain PCP: PCP: Jordan Jean MD HPI: 38 yo white female admitted as a transfe r from [facility] ER. She has PMH of depression, insomnia, chronic back pain. 1 week now has severe R flan k pain that radiates to the RLQ and pelvic area and is constant up to 10/10 [place] rity. No ameliorating factor. had N/V x 1 today. she has been having dysuria and hematuria. Now has w eakness and dizziness. CT at [facility] ER with d ocumentation of likely recent passage of right sided ureteral stone as no urolith iasis but residual obstructive uropathy with minimal dilatation of ureter. She was given 3 L NS and IV ceftriaxone 1 g and sent over here. At bedside BP has been borderline low down to 80 s but responds to IVF and currently 110 systolic. She has abd pain, dizzin ess and headache PMH depression insomina chronic back pain tachycardia PSH none SH no smoking, alcohol or illicit drug use FH Reviewed and non contributpry to current illness Allergies NKDA Home meds reviewd, see MAR History Medication/Allergy-Vaccine Hx Home Medications: ARIPiprazole (ABILIFY) 5 MG PO DAILY FLUoxetine (PROzac) 80 MG PO DAILY HYDROcodone/APAP (NORCO 5/325) 1 TAB PO BID NEBIVOLOL (BYSTOLIC) 5 MG PO DAILY traZODone (DESYREL) 150 MG PO BEDTIME Allergies: Coded Allergies: bismuth subsalicylate (From Pepto-Bismol) (Mild, RASH 11/08/09) Review of Systems Constitutional: Reports: chills, fever, generalized weakness. Skin: Denies: bruising. Allergy/Immun: Denies: itching. Eyes: Denies: redness, discharge. ENT: Denies: hearing loss. Respiratory: Denies: SOB. Cardiovascular: Denies: chest pain. GI: Reports: nausea, vomiting. : Reports: dysuria, flank pain. Musculoskeletal: Denies: extremity swelling. Heme: Denies: bleeding. Neuro: Reports: dizziness. Psych: Denies: agitation. Objective General VS/I O: Vital Signs: Date Time Temp Pulse Resp B/P B/P Pulse O2 O2 F low FiO2 Mean Ox Delivery Rate 02/19 1747 36.7 111 104/69 80.9 99 Room air 02/19 1650 38.1 80 19 96/57 70 Nasal cannula Patient Weight Weight (lb): 155 Weight (oz): 6.81 Weight (kg): 70.500 Physical Exam General appearance: alert, awake Cardiovascular: normal capillary refill, regular rate rhythm Respiratory: aerating well, no distress Abdomen: tenderness, normal bowel sounds, soft, no distention, no guarding Extremities: moves all, normal capillary refill, normal range of motion, no edema Neuro/FUEL HANDLER: alert, oriented X 3 Psychiatry: normal affect Results Findings/Data: Laboratory Tests 02/19 02/19 1700 1700 Chemistry Sodium (134 - 147 mmol/L) 137 Potassium (3.4 - 5.0 mmol/L) 3.3 L Chloride (100 - 108 mmol/L) 106 Carbon Dioxide (21 - 32 mmol/L) 25 Anion Gap (4.0 - 15.0 GAP calc) 6.0 BUN (7 - 18 MG/DL) 7 Creatinine (0.6 - 1.0 MG/DL) 0.6 Glomerular Filtr Rate (>60 estGFR) >=60 max est imate Glucose (70 - 110 MG/DL) 86 Lactic Acid (0.4 - 2.0 mmol/L) 0.8 Calcium (8.5 - 10.1 MG/DL) 7.4 L Lactate Dehydrogenase (84 - 246 Unit/L) 131 Laboratory Tests 02/19 1700 Hematology WBC (3.5 - 11.0 K/mm3) 18.4 H RBC (4.70 - 6.10 M/mm3) 3.88 L Hgb (10.4 - 14.9 G/DL) 10.2 L Hct (31.5 - 44.1 %) 33.0 MCV (84.5 - 98.6 Fl) 85.1 MCH (27.0 - 34.2 pg) 26.3 L MCHC (31.5 - 34.0 G/DL) 30.9 L Plt Count (150 - 450 K/mm3) 224.0 MPV (7.0 - 10.5 fL) 11.00 H Neut % (Auto) (40 - 76 %) 84.6 H Lymph % (Auto) (20.5 - 51.1 %) 5.0 L [place] % (Auto) (1.7 - 9.3 %) 10.2 H Eos % (Auto) (0.0 - 6.0 %) 0.1 Baso % (Auto) (0.0 - 2.0 %) 0.1 Neut # (Auto) (1.8 - 7.6 K/mm3) 15.61 H Lymph # (Auto) (0.6 - 3.2 K/mm3) 0.9 [place] # (Auto) (0.3 - 1.1 K/mm3) 1.9 H Eos # (Auto) (0.0 - 0.4 K/mm3) 0.0 Baso # (Auto) (0.0 - 0.1 K/mm3) 0.0 Add Manual Diff (CRITERIA DIFF/SCN) NO Anisocytosis (NONE) 1+ Diagnosis, Assessment Plan Free Text DxA P Notes Free Text DxA P Notes: 1. OBSTRUCTIVE UROPATHY with minimal dil atation of R ureter- report from [facility] CT A/P WITHOUT CONTRAST possibly passed ureteral stone will do Toradol prn for inflammatory pain consult urology Dr Nguyen will get further imaging to evaluate the obstruc tive uropathy. With contrast 2, Acute PN ua from outside ER with moderate leucocytes, nit rites, proteinuria and large blood continue IV ceftriaxone repeat UA here Blood cx and lactic acid 3. Severe sepsis with low BP, tachycradia here, leucocytosis wbc 18.4 2/2 acute PN IV abx IVF 4. Depression and other comorbidities resume home meds and adjust as needed DVT Px- no anticoagulation needed patient young and ambulatory Electronically Signed by Cony Partida MD on 12/30 at 1810 RPT #: [id number] END OF REPORT"
[2022-09-23] MEDS ORDERED: MORPHINE 4 MG/ML SYR ONE ×2 (11:54→13:08)
[2022-09-23] MEDS ORDERED: ONDANSETRON 4 MG/2 ML VIAL ONE (11:54)
[2022-09-23] MEDS ORDERED: METOCLOPRAMIDE 10 MG/2mL INJ ONE (11:54)
[2022-09-23] MEDS ORDERED: NA CHLORIDE 0.9% 1,000 ML ONE (11:54)
[2022-09-23] MEDS ORDERED: dexAMETHasone 10 MG/ML VIAL ONE (11:54)
[2022-09-23 12:00] LABS: Absolute Lymphocytes (CBC) 2.7 K/uL (0.7-4.9); Hematocrit 40.6 % (36.0-45.0); Lymphocytes % 25.3 % (15.3-44.8); MPV 8.9 fL (7.6-11.3); RBC Red Blood Cell Count 4.72 M/uL (3.86-4.86)
[2022-09-23 12:11] LABS: Protime INR 0.93
[2022-09-23 12:14] LABS: Potassium 3.8 mEq/L (3.5-5.1)
--- NOTE | 2022-09-23 12:19 | RAD REPORT ---
EXAM DESCRIPTION: CT - Head Brain Wo Cont - 09/23/2022 12:06 pm CLINICAL HISTORY: HEADACHE COMPARISON: Head Brain Wo Cont dated 02/17/2021; Head Brain Wo Cont dated 10/11/2020 TECHNIQUE: All CT scans are performed using dose optimization technique as appropriate and may inclu de automated exposure control or mA/KV adjustment according to patient size. FINDINGS: No intracranial hemorrhage, hydrocephalus or extra-axial fluid collection.No areas of brai n edema or evidence of midline shift. The paranasal sinuses and mastoids are clear. The calvarium is intact. IMPRESSION: No acute intracranial abnormality.
[2022-09-23] MEDS ORDERED: KETOROLAC 30 MG/ML INJ ONE ×2 (13:09→14:11)
[2022-09-23] MEDS ORDERED: KETAMINE HCL IN 0.9 % NACL 50 MG/5 ML SYRINGE IV ONE (14:24)
[2022-09-23] MEDS ORDERED: NA CHLORIDE 0.9% 50 ML ONE (14:25)
--- NOTE | 2022-09-23 15:09 | ER ---
Nurse's Notes [facility] Name: Yohana Reeves Age: 41 yrs Sex: Female : 1980 Arrival Date: 09/23/2022 Time: 11:10 Bed 16 Private MD: Diagnosis: Migraine without aura, not intractable Presentation: 09/23 11:15 Chief complaint: Patient states: Migraine headache x 1 week, seen previously at [facility] and given meds that helped temporarily, chest pain that started last night, worse w/ deep breathing, also reports nausea but no vomiting, sensitive to light and sound, has hx of migraines. Is alos currently on antibiotics for UTI. Coronavirus screen: Vaccine status: Patient reports receiving the 2nd dose of the covid vaccine. Ebola Screen: No symptoms or risks identified at this time. Initial Sepsis Screen: Does the patient meet any 2 criteria? No. Patient's initial sepsis screen is negative. Does the patient have a suspected source of infection? No. Patient's initial sepsis screen is negative. Risk Assessment: Do you want to hurt yourself or someone else? Patient reports no desire to harm self or others. Onset of symptoms was September 23, 2022. 11:15 Method Of Arrival: Ambulatory 11:15 Acuity: NICOLASA 3 ph Historical: - Allergies: 11:18 No Known Drug Allergies; ph - PMHx: 11:18 chronic back pain; depressive disorder; GI Bleed; heart attack due to trauma; Kidney ph stones; Migraine; - PSHx: 11:18 section; Emergency laparotomy; ph - Immunization history:: Adult Immunizations unknown. - Social history:: Smoking status: Patient denies any tobacco usage or history of. - Family history:: not pertinent. - Hospitalizations: : No recent hospitalization is reported. Screenin:29 [facility] ED Fall Risk Assessment (Adult) History of falling in the last 3 months, kc6 including since admission No falls in past 3 months (0 pts) Confusion or Disorientation No (0 pts) Intoxicated or Sedated No (0 pts) Impaired Gait No (0 pts) Mobility Assist Device Used No (0 pt) Altered Elimination No (0 pt) Score/Fall Risk Level 0 - 2 = Low Risk Oriented to surroundings, Maintained a safe environment, Educated pt \T\ family on fall prevention, incl call for assistance when getting out of bed, Assessed \T\ reinforced patient's understanding of fall precautions, Hourly rounding (assess needs \T\ fall precautionary measures) done. Abuse screen: Denies threats or abuse. Denies injuries from another. Nutritional screening: No deficits noted. Tuberculosis screening: No symptoms or risk factors identified. Assessment: 11:30 General: Appears in no apparent distress. comfortable, Behavior is calm, cooperative, kc6 appropriate for age. Pain: Complains of pain in chest and forehead Pain does not radiate. Pain currently is 10 out of 10 on a pain scale. Quality of pain is described as throbbing, Pain began 2-3 days ago. Is continuous. Neuro: Batres Agitation-Sedation Scale (RASS): 0 - Alert and Calm Level of Consciousness is awake, alert, obeys commands, Oriented to person, place, time, situation, Appropriate for age. Cardiovascular: Capillary refill < 3 seconds. Respiratory: Airway is patent Trachea midline Respiratory effort is even, unlabored, Respiratory pattern is regular, symmetrical. GI: No signs and/or symptoms were reported involving the gastrointestinal system. : No signs and/or symptoms were reported regarding the genitourinary system. EENT: No signs and/or symptoms were reported regarding the EENT system. Derm: No signs and/or symptoms reported regarding the dermatologic system. Skin is intact, Skin is pink, warm \T\ dry. Musculoskeletal: No signs and/or symptoms reported regarding the musculoskeletal system. Circulation, motion, and sensation intact. Capillary refill < 3 seconds, Range of motion: intact in all extremities. 12:30 Reassessment: Patient appears in no apparent distress at this time. No changes from kc6 previously documented assessment. Patient and/or family updated on plan of care and expected duration. Pain level reassessed. Patient is alert, oriented x 3, equal unlabored respirations, skin warm/dry/pink. 13:30 Reassessment: Patient appears in no apparent distress at this time. No changes from kc6 previously documented assessment. Patient and/or family updated on plan of care and expected duration. Pain level reassessed. Patient is alert, oriented x 3, equal unlabored respirations, skin warm/dry/pink. 14:30 Reassessment: Patient appears in no apparent distress at this time. No changes from kc6 previously documented assessment. Patient and/or family updated on plan of care and expected duration. Pain level reassessed. Patient is alert, oriented x 3, equal unlabored respirations, skin warm/dry/pink. Vital Signs: 11:15 BP 132 / 75; Pulse 92; Resp 18; Temp 99.1; Pulse Ox 98% on R/A; Weight 86.18 kg; Height mb9 5 ft. 2 in. ; 12:13 BP 114 / 64; Pulse 72; Resp 17; Pulse Ox 99% on R/A; mb9 13:09 BP 119 / 63; Pulse 78; Resp 14 S; Pulse Ox 95% on R/A; Pain 10/10; kc6 14:09 BP 103 / 55; Pulse 82; Resp 14 S; Pulse Ox 92% on R/A; Pain 10/10; kc6 15:03 BP 103 / 55; Pulse 71; Resp 14 S; Pulse Ox 95% on R/A; kc6 11:15 Body Mass Index 34.75 (86.18 kg, 157.48 cm) mb9 13:09 Pain Scale: Adult kc6 14:09 Pain Scale: Adult kc6 Goodman Coma Score: 15:07 Eye Response: spontaneous(4). Motor Response: obeys commands(6). Verbal Response: rn oriented(5). Total: 15. ED Course: 11:12 Patient arrived in ED. mr 11:14 Blade Haas MD is Attending Physician. rn 11:18 Triage completed. ph 11:19 Arm band placed on Patient placed in an exam room. ph 11:21 Susannah Hameed, RN is Primary Nurse. kc6 11:29 Patient has correct armband on for positive identification. Placed in gown. Bed in low kc6 position. Call light in reach. Side rails up X2. Adult w/ patient. Client placed on continuous cardiac and pulse oximetry monitoring. NIBP monitoring applied. trousseau consultant on. 11:45 Inserted saline lock: 20 gauge in left wrist, using aseptic technique. Blood collected. kc6 Patient maintains SpO2 saturation greater than 95% on room air. 12:08 CT Head Brain wo Cont In Process Unspecified. EDMS 15:21 No provider procedures requiring assistance completed. IV discontinued, intact, kc6 bleeding controlled, No redness/swelling at site. Pressure dressing applied. Administered Medications: 11:55 Drug: metoCLOPramide IVP 10 mg Route: IVP; Site: left wrist; kc6 13:42 Follow up: Response: No adverse reaction kc6 11:55 Drug: Decadron - Dexamethasone IVP 10 mg Route: IVP; Site: left wrist; kc6 13:42 Follow up: Response: No adverse reaction kc6 11:55 Drug: morphine IVP or IV 4 mg Route: IVP; Infused Over: 4 mins; Site: left wrist; kc6 13:42 Follow up: Response: No adverse reaction; Pain is unchanged, physician notified; RASS: kc6 Alert and Calm (0) 11:55 Drug: NS 0.9% IV 1000 ml Route: IV; Rate: 1000 ml; Site: left wrist; kc6 13:42 Follow up: Response: No adverse reaction; IV Status: Completed infusion; IV Intake: kc6 1000ml 11:55 Drug: Ondansetron IVP 4 mg Route: IVP; Site: left wrist; kc6 13:42 Follow up: Response: No adverse reaction kc6 13:08 Drug: Ketorolac IVP 30 mg Route: IVP; Site: left wrist; kc6 13:42 Follow up: Response: No adverse reaction kc6 13:08 Drug: morphine IVP or IV 4 mg Route: IVP; Infused Over: 4 mins; Site: left wrist; kc6 13:42 Follow up: Response: No adverse reaction; RASS: Alert and Calm (0) kc6 14:25 Drug: Ketorolac IVP 15 mg Route: IVP; Site: left wrist; kc6 15:22 Follow up: Response: No adverse reaction; Pain is decreased kc6 14:25 Drug: Ketamine IVP 0.2 mg/kg Route: IVP; Site: left wrist; kc6 15:22 Follow up: Response: No adverse reaction; Pain is decreased; RASS: Alert and Calm (0) kc6 Medication: 15:22 VIS not applicable for this client. kc6 Intake: 13:42 IV: 1000ml; Total: 1000ml. kc6 Outcome: 15:08 Discharge ordered by rn 15:21 Discharged to home ambulatory, with significant other. kc6 15:21 Condition: stable 15:21 Discharge instructions given to patient, Instructed on discharge instructions, follow up and referral plans. medication usage, Demonstrated understanding of instructions, follow-up care, medications, Prescriptions given X 1. 15:22 Patient left the ED. kc6 Signatures: Dispatcher [employer] THELMAMS Ellsworth Cherelle jones Blade Haas MD MD rn Hall, Patricia, RN RN Susannah Thurman RN RN kc6 Cherelle Baires RN RN mb9 Corrections: (The following items were deleted from the chart) 12:18 11:15 BP 132 / 75; Pulse 92bpm; Resp 18bpm; Pulse Ox 98% RA; Temp 99.1F; 8.62 kg; mb9 Height 5 ft. 2 in.; BMI: 3.48; ph
--- NOTE | 2022-09-23 15:09 | EDPHYS ---
Physician Documentation [facility] Name: Yohana Reeves Age: 41 yrs Sex: Female : 1980 Arrival Date: 09/23/2022 Time: 11:10 Bed 16 Private MD: ED Physician Blade Haas HPI: 09/23 11:42 This 41 yrs old Female presents to ER via Ambulatory with complaints of Headache. rn 11:42 The patient complains of pain to the forehead. The patient describes the headache as rn aching, throbbing. Onset: The symptoms/episode began/occurred 1 week(s) ago. Associated signs and symptoms: Pertinent positives: nausea, Pertinent negatives: altered mental status, fever, neck stiffness, vision changes, vision loss. Severity of symptoms: At its worst the pain was moderate, "similar to past headaches", in the emergency department the pain is unchanged. Headache History: The patient has had previous headaches and this one is more severe than previous episodes. The symptoms are alleviated by nothing. the symptoms are aggravated by nothing. The patient has experienced similar episodes in the past. Pt reports used to get more frequent migraines, stopped taking Topamax because hadn't had a headache in a while, now migraine for 1 week, no trauma, no fever. Was seen at [facility], discharged, hasn't resolved so came here for reeval. . Historical: - Allergies: 11:18 No Known Drug Allergies; ph - PMHx: 11:18 chronic back pain; depressive disorder; GI Bleed; heart attack due to trauma; Kidney ph stones; Migraine; - PSHx: 11:18 section; Emergency laparotomy; ph - Immunization history:: Adult Immunizations unknown. - Social history:: Smoking status: Patient denies any tobacco usage or history of. - Family history:: not pertinent. - Hospitalizations: : No recent hospitalization is reported. ROS: 11:42 Constitutional: Negative for fever, chills, and weight loss, Eyes: Negative for injury, rn pain, redness, and discharge, ENT: Negative for injury, pain, and discharge, Neck: Negative for injury, pain, and swelling, Cardiovascular: Negative for palpitations, and edema, Respiratory: Negative for shortness of breath, cough, wheezing, and pleuritic chest pain, Abdomen/GI: Negative for abdominal pain, vomiting, diarrhea, and constipation, Back: Negative for injury and pain, MS/Extremity: Negative for injury and deformity, Skin: Negative for injury, rash, and discoloration, Neuro: Negative for weakness, numbness, tingling, and seizure. Exam: 11:42 Constitutional: This is a well developed, well nourished patient who is awake, alert, rn and in no acute distress. Head/Face: Normocephalic, atraumatic. Eyes: Pupils equal round and reactive to light, extra-ocular motions intact. Neck: Trachea midline, no masses palpated, and no cervical lymphadenopathy. Supple, full range of motion without nuchal rigidity, or vertebral point tenderness. No Meningismus. Cardiovascular: Regular rate and rhythm. No pulse deficits. Respiratory: No increased work of breathing, no retractions or nasal flaring. Abdomen/GI: Soft, non-tender Skin: Warm, dry MS/ Extremity: Pulses equal, no cyanosis. Neuro: Awake and alert, GCS 15, oriented to person, place, time, and situation. Cranial nerves II-XII grossly intact. Motor strength 5/5 in all extremities. Sensory grossly intact. Cerebellar exam normal. 12:57 ECG was reviewed by the Attending Physician. rn Vital Signs: 11:15 BP 132 / 75; Pulse 92; Resp 18; Temp 99.1; Pulse Ox 98% on R/A; Weight 86.18 kg; Height mb9 5 ft. 2 in. ; 12:13 BP 114 / 64; Pulse 72; Resp 17; Pulse Ox 99% on R/A; mb9 13:09 BP 119 / 63; Pulse 78; Resp 14 S; Pulse Ox 95% on R/A; Pain 10/10; kc6 14:09 BP 103 / 55; Pulse 82; Resp 14 S; Pulse Ox 92% on R/A; Pain 10/10; kc6 15:03 BP 103 / 55; Pulse 71; Resp 14 S; Pulse Ox 95% on R/A; kc6 11:15 Body Mass Index 34.75 (86.18 kg, 157.48 cm) mb9 13:09 Pain Scale: Adult kc6 14:09 Pain Scale: Adult kc6 Nasra Coma Score: 15:07 Eye Response: spontaneous(4). Motor Response: obeys commands(6). Verbal Response: rn oriented(5). Total: 15. MDM: 11:14 Patient medically screened. rn 15:07 Differential diagnosis: cluster headache, hypertensive headache, intracerebral rn hemorrhage, migraine, tension headache, vasomotor headache. Data reviewed: vital signs, nurses notes, lab test result(s), radiologic studies, CT scan, and as a result, I will discharge patient. Counseling: I had a detailed discussion with the patient and/or guardian regarding: the historical points, exam findings, and any diagnostic results supporting the discharge/admit diagnosis, lab results, radiology results, the need for outpatient follow up, to return to the emergency department if symptoms worsen or persist or if there are any questions or concerns that arise at home. Response to treatment: the patient's symptoms have mildly improved after treatment, and as a result, I will discharge patient. Special discussion: I discussed with the patient/guardian in detail that at this point there is no indication for admission to the hospital. It is understood, however, that if the symptoms persist or worsen the patient needs to return immediately for re-evaluation. 09/23 11:36 Order name: CBC with Diff; Complete Time: 12:16 rn 09/23 11:36 Order name: Basic Metabolic Panel; Complete Time: 12:16 rn 09/23 11:36 Order name: Protime (+inr); Complete Time: 12:16 rn 09/23 11:36 Order name: Ptt, Activated; Complete Time: 12:16 rn 09/23 14:15 Order name: LAB Add On bd 09/23 14:21 Order name: Troponin High Sensitivity; Complete Time: 14:35 EDMS 09/23 11:36 Order name: CT Head Brain wo Cont; Complete Time: 12:43 rn 09/23 11:36 Order name: IV Start; Complete Time: 11:45 rn EC:57 Rate is 88 beats/min. Rhythm is regular. QRS [place] is Normal. [place] interval is normal. QRS rn interval is normal. QT interval is normal. No Q waves. T waves are Normal. No ST changes noted. Clinical impression: Normal ECG. Interpreted by me. Reviewed by me. Administered Medications: 11:55 Drug: metoCLOPramide IVP 10 mg Route: IVP; Site: left wrist; kc6 13:42 Follow up: Response: No adverse reaction [facility] 11:55 Drug: Decadron - Dexamethasone IVP 10 mg Route: IVP; Site: left wrist; kc6 13:42 Follow up: Response: No adverse reaction kc6 11:55 Drug: morphine IVP or IV 4 mg Route: IVP; Infused Over: 4 mins; Site: left wrist; kc6 13:42 Follow up: Response: No adverse reaction; Pain is unchanged, physician notified; RASS: kc6 Alert and Calm (0) 11:55 Drug: NS 0.9% IV 1000 ml Route: IV; Rate: 1000 ml; Site: left wrist; kc6 13:42 Follow up: Response: No adverse reaction; IV Status: Completed infusion; IV Intake: kc6 1000ml 11:55 Drug: Ondansetron IVP 4 mg Route: IVP; Site: left wrist; kc6 13:42 Follow up: Response: No adverse reaction kc6 13:08 Drug: Ketorolac IVP 30 mg Route: IVP; Site: left wrist; kc6 13:42 Follow up: Response: No adverse reaction kc6 13:08 Drug: morphine IVP or IV 4 mg Route: IVP; Infused Over: 4 mins; Site: left wrist; kc6 13:42 Follow up: Response: No adverse reaction; RASS: Alert and Calm (0) kc6 14:25 Drug: Ketorolac IVP 15 mg Route: IVP; Site: left wrist; kc6 15:22 Follow up: Response: No adverse reaction; Pain is decreased kc6 14:25 Drug: Ketamine IVP 0.2 mg/kg Route: IVP; Site: left wrist; kc6 15:22 Follow up: Response: No adverse reaction; Pain is decreased; RASS: Alert and Calm (0) kc6 Disposition Summary: 09/23/22 15:08 Discharge Ordered Location: Home rn Problem: an acute exacerbation rn Symptoms: have improved rn Condition: Stable rn Diagnosis - Migraine without aura, not intractable rn Followup: rn - With: Private Physician - When: As needed - Reason: Recheck today's complaints, Re-evaluation by your physician Discharge Instructions: - Discharge Summary Sheet rn - Migraine Headache rn Forms: - Medication Reconciliation Form rn - Thank You Letter rn - Antibiotic cardiac cath rn - Prescription Opioid Use rn - Work release form kc6 Prescriptions: - Topamax 200 mg Oral tablet - take 1 tablet by ORAL route once For migraines; 15 tablet; Refills: 0, Product rn Selection Permitted Signatures: Dispatcher [employer] Blade Viveros MD MD rn Hall, Patricia, RN RN ph Sims, Marcus, DO DO ms3 Susannah Hameed RN RN kc6
[2022-09-23 16:27] VITALS: TEMP 99.1
[2022-09-23 16:32] VITALS: BP 103/55
[2022-09-23 16:34] VITALS: O2SAT 95
--- NOTE | 2022-09-25 13:58 | EKG ---
Test Date: 2022-09-23 Test Time: 11:37:10 Handicapped Teacher: EZRA MEASUREMENT RESULTS: Intervals: Rate: 88 FL: 118 QRSD: 80 QT: 378 QTc: 457 [place]: P: 74 FL: 118 QRS: 73 T: 63 INTERPRETIVE STATEMENTS: Normal sinus rhythm Normal ECG Compared to ECG 03/20/2022 12:36:41 T-wave abnormality no longer present Electronically Signed On 09-25-22 13:55:52 CDT by Jaciel Mathis
== END 2022-09-23 15:22 | disposition home or self-care (01) ==
LOC: ER 11:10
DX: G43.009 Migraine without aura, not intractable, without status migrainosus (principal)
CPT/HCPCS: 96361; 85025; 80048; 36415; 85610; 85730; 84484; 70450; 96375; 96374; 99285; J2765; J1100; J2405; J7030; 93005

== ENCOUNTER 2022-09-24 19:17 | Emergency (ER) | payer BC ==
--- OUTSIDE RECORDS SUMMARY | 2022-09-24 19:24 | XMS REPORT | Continuity of Care Document ---
:1980 Author Organization [facility] t Address [address] [place] [address] [place] [id number] Care Team Providers Name Role Phone None, None Primary Care Physician CAITIE SHIPLEY Attending Clinician Unavailable Caitie Klein Attending Clinician ANGEL ATKINS Attending Clinician Unavailable ELISE RICE Attending Clinician Unavailable Jagjit ALTERATION WORKROOM SUPERVISOR, Elise Attending Clinician Pob, [facility] Main Attending Clinician Unavailable Ariel Britt MD Attending Clinician ARIEL BRITT Attending Clinician Unavailable Doctor Unassigned, [place] Attending Clinician Unavailable Paul Sams MD Attending Clinician PAUL SAMS Attending Clinician Unavailable _SWAMBER_Stan_Edis Attending Clinician Unavailable Alex Pierce Attending Clinician [phone] Megan Aranda Attending Clinician Ann Cardozo DO Attending Clinician Angelo Robles MD Attending Clinician Naun Bush MD Attending Clinician Mark Monterroso Attending Clinician Candido Isabel Attending Clinician CANDIDO RAMIREZ Attending Clinician Unavailable CAITIE SHIPLEY Admitting Clinician Unavailable DILOLN_[email or web address]_J Admitting Clinician Unavailable Naun Bush MD Admitting Clinician CANDIDO RAMIREZ Admitting Clinician Unavailable Payers Payer Name Policy Type Policy Number Effective Date Expiration Date S ource [place] OF [id number] 2021 [facility] 00:00:00 TML GBRP CLAIMS [id number] 2017 00:00:00 [place] [id number] 2021 00:00:00 BCBS PPO POS EPO CHOICE [id number] 2021 00:00:00 [id number] 2017 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 PLAN 00:00:00 - [place] TRUE CHOICE (PPO) Problems Condition Condition Condition Status Onset Resolution Last Treating Co mments Source Name Details Category Date Date Treatment Clinician Date Tachycardi Tachycardi Disease Active 2019-04 U nivers a a 0-28 ity of 00:: [place] [facility] Family Family Disease Active 2019-04 Univers history of history of 0-28 it y of early CAD [place] CAD [place] [facility] Chest pain Chest pain Disease Active 2019-04 U nivers 0-27 ity of 00:: [place] [facility] Obesity Obesity Disease Active 2019-04 Univers (BMI (BMI 0-27 ity of 30-39.9) 30-39.9) 00:00: [facility] RLQ RLQ Disease Active 2019- Univers abdominal abdominal 9-24 ity of pain pain 00:00: [facility] Anxiety Anxiety Disease Active 2019- Univers 9-24 ity of 00:00: [place] [facility] Chronic Chronic Disease Active 2019 Univers low back low back 9-24 ity of pain pain 00:00: [facility] Anemia Anemia Problem Active [facility] 8- Medical 00:00: 00 Hypertensi Hypertensi Problem Active [facility] ve ve 11-11 Medical disorder Disorder 00:00: 00 Hyperchole Hyperchole Problem Active [facility] sterolemia sterolemia 11-11 Me dical 00:00: 00 Allergies, Adverse Reactions, Alerts Allergy Allergy Status Severity Reaction(s) Onset Inactive Treating Comm ents Source Name Type Date Date Clinician ally PEARL Active [facility] subsalic 7-29 Clear ylate 00:00: Jones 00 [facility] NO KNOWN Drug Active [facility] ALLERGIE Class ity of S [facility] NO KNOWN Allergy Active [facility] Social History Social Habit Start Date Stop Date Quantity Comments Source History of Cigarette [facility] tobacco use Exposure to 2022-06-23 2022-07-03 Not sure [facility] SARS-CoV-2 00:00:00 10:38:00 (event) Tobacco use and 2022-07-03 2022-07-03 Smokeless tobacco [facility] exposure 00:00:00 00:00:00 non-user Alcohol intake 2021-10-15 2021-10-15 Ex-drinker [facility] 00:00:00 00:00:00 (finding) [facility] History SDOH 2020-02-08 2020-02-08 99 University o f Alcohol Frequency 00:00:00 00:00:00 [facility] edical Branch History SDOH 2020-02-08 2020-02-08 99 University o f Alcohol Std 00:00:00 00:00:00 [place] [facility] Branch History SDOH 2020-02-08 2020-02-08 99 University o f Alcohol Binge 00:00:00 00:00:00 [place] [facility] Tobacco Comment 2020-02-07 2020-02-07 rarely Universit y of 00:00:00 00:00:00 [place] [facility] Alcohol Comment 2020-02-07 2020-02-07 occasionally Univers ity of 00:00:00 00:00:00 [facility] Branch Cigarettes smoked 2020-01-24 2020-01-24 Univers ity of current (pack per 00:00:00 00:00:00 [facility]) - Reported Branch Sex Assigned At 1980 [...] ity o f (PF)) 14:45: 14:33 Push, [place] injection 00 :00 ONCE, 1 Medical 25 [...] Thu09/15/22 at 0945, STAT iopamidol 2022- No [id number] 130mL 130 mL, Univers (ISOVUE 09-15 Intravenou ity o f 370-500 mL) 14:20: 14:20 s, ONCE, 1 [place] injection 00 :00 dose, On Medica l 130 mL Thu09/15/22 Branch at 0945, Routine cefTRIAXone 2022- No 1000mg 1,000 mg, Univers (ROCEPHIN) 09-15 IV ity of 1,000 mg in 14:15: 14:25 Piggyback, [place] NaCl 0.9% 00 :00 ONCE, 1 Medical [...] IV ity of (PF)) 13:45: 13:49 Push, [place] injection 00 :00 ONCE, 1 Medical 20 mg dose, On Branch Thu09/15/22 at 0845, [place] diphenhydrA No 12.5mg 12.5 mg, Univers MINE 09-15 Slow IV ity of (BENADRYL) 13:45: 13:49 Push, [place] injection 00 :00 ONCE, 1 Medical 12.5 mg dose, On Branch Thu09/15/22 at 0845, L[place] metoclopram 2022- No 5mg 5 mg, Slow Univers adarsh HCl 09-15 IV Push, ity of (REGLAN) 13:45: 13:49 ONCE, 1 [place] injection 5 00 :00 dose, On Medi riky mg Thu09/15/22 Branch at 0845, LORENE dicyclomine Yes [id number] 20mg Take 1 Univers 20 mg 09-15 tablet by ity of tablet 00:00: mouth 4 [place] 00 (four) Medical times Branch daily as needed for Abdominal pain. cefdinir 2022- Yes [id number] 300mg Take 1 Univers 300 mg 09-15 [...] Take 1 UT -acetaminop 3-23 tablet by [facility] hen ([place]) 11:02: mouth if 5-325 MG 08 needed. [...] MG tablet 14:24: daily. Medica l [address] [place] montelukast Yes 10mg QD Take 10 mg [...] MG tablet 14:24: daily. Medica l [address] [place] montelukast 0 Yes 10mg QD Take [address] [facility] (SINGULAIR) 7-05 by mouth Luke s 10 mg 14:24: nightly. Medical tablet 12 [place] benzonatate 0 Yes 100mg Take [address] (TESSALON) 7-05 mg by [facility] 100 MG 14:24: mouth 3 Medical capsule 12 (three) Center times daily as needed for Cough. meloxicam 2-0 Yes 15mg QD Take [address] (MOBIC) 15 7-05 by mouth [facility]ukes MG tablet 14:24: daily. Medica l [address] [place] montelukast 2021-0 Yes 10mg QD Take [address] [facility] [address] (SINGULAIR) 7-05 by mouth Luke s 10 mg 14:24: nightly. Medical tablet 12 [place] benzonatate 2021-0 Yes 100mg Take [address] (TESSALON) 7-05 mg by [facility] 100 MG 14:24: mouth 3 Medical capsule 12 (three) Center times daily as needed for Cough. meloxicam 2021-0 Yes 15mg QD Take [address] (MOBIC) 15 7-05 by mouth [facility]ukes MG tablet 14:24: daily. Medica l [address] [place] [address] montelukast 0 Yes 10mg QD Take [address] [facility] (SINGULAIR) 7-05 by mouth Luke s 10 mg 14:24: nightly. Medical tablet [address] [place] [address] benzonatate 2021-0 Yes 100mg Take [address] (TESSALON) 7-05 mg by [facility] 100 MG 14:24: mouth 3 Medical capsule 12 (three) Center times daily as needed for Cough. meloxicam 2-0 Yes 15mg QD Take [address] (MOBIC) 15 7-05 by mouth [facility]ukes MG tablet 14:24: daily. Medica l [address] [place] [address] montelukast 2021-0 Yes 10mg QD Take [address] [facility] (SINGULAIR) 7-05 by mouth Luke s 10 mg 14:24: nightly. Medical tablet 12 [place] benzonatate 2-0 Yes 100mg Take [address] (TESSALON) 7-05 mg by [facility] 100 MG 14:24: mouth 3 Medical capsule 12 (three) Center times daily as needed for Cough. meloxicam 2-0 Yes 15mg QD Take [address] (MOBIC) 15 7-05 by mouth [facility]ukes MG tablet 14:24: daily. Medica l [address] [place] [address] montelukast 2021-0 Yes 10mg QD Take [address] (SINGULAIR) 7-05 by mouth Luke s 10 mg 14:24: nightly. Medical tablet 12 Center benzonatate Yes 100mg Take 100 C HI [...] ity of mg 19:15: 18:10 ONCE, 1 [place] 00 :00 dose, Mon Medical 07/23/20 at Branch 1415, STAT ondansetron 2020- No 4mg 4 mg, Slow Univers (ZOFRAN 07-23 IV Push, ity of (PF)) 18:00: 16:55 ONCE, 1 [place] injection 4 00 :00 dose, Mon Med ical mg 07/23/20 at Branch 1300, LORENE ketorolac 2020- No 30mg 30 mg, Unive rs (TORADOL) 07-23 Slow IV ity of injection 18:00: 16:55 Push, [place] 30 mg 00 :00 ONCE, 1 Medical dose, [facility] 07/23/20 at 1300, LORENE
Fa culty member approving Restricted medication : MEGAN LYONS iohexol 2020- No [id number] 120mL 120 mL, Univers (OMNIPAQUE 07-23 Intravenou it y of 350 17:15: 17:10 s, ONCE, 1 [place] BULK-150 00 :00 dose, Mon Medica l mL) 07/23/20 at [place] injection 1215, 120 mL Routine ondansetron Yes [id number] 4mg Take 1 Univers (ZOFRAN 4-12 tablet by ity of ODT) 4 mg 00:00: mouth [place] disintegrat 00 every 8 Medic al ing tablet (eight) Branch hours as needed for Nausea and Vomiting (N/V). ondansetron Yes [id number] 4mg Take 1 Univers (ZOFRAN 4-12 tablet by ity of ODT) 4 mg 00:00: mouth [place] disintegrat 00 every 8 Medic al ing tablet (eight) Branch hours as needed for Nausea and Vomiting (N/V). ondansetron 2020-0 Yes [id number] 4mg Take 1 Univers (ZOFRAN 4-12 tablet by ity of ODT) 4 mg 00:00: mouth [place] disintegrat 00 every 8 Medic al ing tablet (eight) Branch hours as needed for Nausea and Vomiting (N/V). ondansetron 2020-0 Yes [id number] 4mg Take 1 Univers (ZOFRAN 4-12 tablet by ity of ODT) 4 mg 00:00: mouth [place] disintegrat 00 every 8 Medic al ing tablet (eight) Branch hours as needed for Nausea and Vomiting (N/V). ondansetron 2020-0 Yes [id number] 4mg Take 1 Univers (ZOFRAN 4-12 tablet by ity of ODT) 4 mg 00:00: mouth [place] disintegrat 00 every 8 Medic al ing tablet (eight) Branch hours as needed for Nausea and Vomiting (N/V). ondansetron 2020-0 Yes [id number] 4mg Take 1 Univers (ZOFRAN 4-12 tablet by ity of ODT) 4 mg 00:00: mouth [place] disintegrat 00 every 8 Medic al ing tablet (eight) Branch hours as needed for Nausea and Vomiting (N/V). ondansetron 2020-0 Yes [id number] 4mg Take 1 Univers (ZOFRAN 4-12 tablet by ity of ODT) 4 mg 00:00: mouth [place] disintegrat 00 every 8 Medic al ing tablet (eight) Branch hours as needed for Nausea and Vomiting (N/V). ondansetron 2020-0 Yes [id number] 4mg Take 1 Univers (ZOFRAN 4-12 tablet [...] ity of en-caff 21:30: 20:40 ONCE, 1 [place] (ESGIC) 00 :00 dose, Fri Medical 50-325-40 04/27/20 at [facility] ch mg tablet 1 1530, tablet [...] mg 00 :00 1 dose, Medical Fri [place] 04/27/20 at 1430, LORENE ondansetron 2020- No [...] 0-28 mouth ity of (BYSTOLIC 19:30: daily. [place] ORAL) 22 Medical Branch zolpidem 2019-04 Yes 10mg Take 10 mg Uni vers (AMBIEN) 10 0-28 by mouth ity of mg tablet 19:30: at [place] 22 bedtime. Medical Branch FLUoxetine 2019-04 Yes 80mg Take 80 mg U nivers (PROZAC) 40 0-28 by mouth ity of mg capsule 19:30: daily. [address] Branch ARIPiprazol 2019-04 Yes 5mg Take 5 mg U nivers e (ABILIFY) 0-28 by mouth ity of 5 mg tablet 19:30: daily. [facility] 22 [facility] Branch HYDROcodone 2019-04 Yes 1{tbl} [...] 0-28 mouth ity of (BYSTOLIC 19:30: daily. [place] [address] Medical Branch zolpidem 2019-04 Yes 10mg Take 10 mg Uni vers (AMBIEN) 10 0-28 by mouth ity of mg tablet 19:30: at [place] [address] bedtime. Medical Branch FLUoxetine 2019-04 Yes 80mg Take 80 mg U nivers (PROZAC) 40 0-28 by mouth ity of mg capsule 19:30: daily. [address] Branch ARIPiprazol 2019-04 Yes 5mg Take 5 mg U nivers e (ABILIFY) 0-28 by mouth ity of 5 mg tablet 19:30: daily. [facility] 22 [facility] Branch HYDROcodone 2019-04 Yes 1{tbl} [...] 0-28 mouth ity of (BYSTOLIC 19:30: daily. [facility]) Medical Branch zolpidem 2019-04 Yes 10mg Take 10 mg Uni vers (AMBIEN) 10 0-28 by mouth ity of mg tablet 19:30: at [place] [address] bedtime. Medical Branch FLUoxetine 2019-04 Yes 80mg Take 80 mg U nivers (PROZAC) 40 0-28 by mouth ity of mg capsule 19:30: daily. [address] Branch ARIPiprazol 2019-04 Yes 5mg Take 5 mg U nivers e (ABILIFY) 0-28 by mouth ity of 5 mg tablet 19:30: daily. [address] Branch HYDROcodone 2019-04 Yes 1{tbl} Take 1 Un caorl -acetaminop 0-28 tablet by ity of hen [...] 0-28 mouth ity of (BYSTOLIC 14:30: daily. [place] [address] Medical Branch zolpidem 2019-04 Yes 10mg Take 10 mg Uni vers (AMBIEN) 10 0-28 by mouth ity of mg tablet 14:30: at [place] [address] bedtime. Medical Branch FLUoxetine 2019-04 Yes 80mg Take 80 mg U nivers (PROZAC) 40 0-28 by mouth ity of mg capsule 14:30: daily. [address] ARIPiprazol 2019-04 Yes 5mg Take 5 mg U nivers e (ABILIFY) 0-28 by mouth ity of 5 mg tablet 14:30: daily. [facility] HYDROcodone 2019-04 Yes 1{tbl} Take 1 Un [...] 0-28 mouth ity of (BYSTOLIC 14:30: daily. [place] [address] Medical Branch zolpidem 2019-04 Yes 10mg Take 10 mg Uni vers (AMBIEN) 10 0-28 by mouth ity of mg tablet 14:30: at [place] [address] bedtime. Medical Branch FLUoxetine 2019-04 Yes 80mg Take 80 mg U nivers (PROZAC) 40 0-28 by mouth ity of mg capsule 14:30: daily. [address] Branch ARIPiprazol 2019-04 Yes 5mg Take 5 mg U nivers e (ABILIFY) 0-28 by mouth ity of 5 mg tablet 14:30: daily. [place] [address] Medical Branch HYDROcodone 2019-04 Yes 1{tbl} Take [...] 0-28 mouth ity of (BYSTOLIC 14:30: daily. [place] ORAL) Medical Branch zolpidem 2019-04 Yes 10mg Take 10 mg Uni vers (AMBIEN) 10 0-28 by mouth ity of mg tablet 14:30: at [place] [address] bedtime. Medical Branch FLUoxetine 2019-04 Yes 80mg Take 80 mg U nivers (PROZAC) 40 0-28 by mouth ity of mg capsule 14:30: daily. [address] Branch ARIPiprazol 2019-04 Yes 5mg Take 5 mg U nivers e (ABILIFY) 0-28 by mouth ity of 5 mg tablet 14:30: daily. [address] Branch HYDROcodone 2019-04 Yes 1{tbl} Take [...] 0-28 mouth ity of (BYSTOLIC 14:30: daily. [place] ORAL) Medical Branch zolpidem 2019-04 Yes 10mg Take 10 mg Uni vers (AMBIEN) 10 0-28 by mouth ity of mg tablet 14:30: at [place] [address] bedtime. Medical Branch FLUoxetine 2019-04 Yes 80mg Take 80 mg U nivers (PROZAC) 40 0-28 by mouth ity of mg capsule 14:30: daily. [place] [address] Medical Branch ARIPiprazol 2019-04 Yes 5mg Take 5 mg U nivers e (ABILIFY) 0-28 by mouth ity of 5 mg tablet 14:30: daily. [address] Branch HYDROcodone 2019-04 Yes 1{tbl} Take [...] 0-28 mouth ity of (BYSTOLIC 14:30: daily. [facility]) Medical Branch zolpidem 2019-04 Yes 10mg Take 10 mg Uni vers (AMBIEN) 10 0-28 by mouth ity of mg tablet 14:30: at [place] [address] bedtime. Medical Branch FLUoxetine 2019-04 Yes 80mg Take 80 mg U nivers (PROZAC) 40 0-28 by mouth ity of mg capsule 14:30: daily. [place] [address] Medical Branch ARIPiprazol 2019-04 Yes 5mg Take 5 mg U nivers e (ABILIFY) 0-28 by mouth ity of 5 mg tablet 14:30: daily. [address] Branch HYDROcodone 2019-04 Yes 1{tbl} Take [...] 0-28 mouth ity of (BYSTOLIC 14:30: daily. [place] ORAL) Medical Branch zolpidem 2019-04 Yes 10mg Take 10 mg Uni vers (AMBIEN) 10 0-28 by mouth ity of mg tablet 14:30: at [place] [address] bedtime. Medical Branch FLUoxetine 2019-04 Yes 80mg Take 80 mg U nivers (PROZAC) 40 0-28 by mouth ity of mg capsule 14:30: daily. [place] [address] Medical Branch ARIPiprazol 2019-04 Yes 5mg Take 5 mg U nivers e (ABILIFY) 0-28 by mouth ity of 5 mg tablet 14:30: daily. [facility] 22 Medical Branch HYDROcodone 2019-04 Yes [...] 0-28 mouth ity of (BYSTOLIC 14:30: daily. [place] ORAL) Medical Branch zolpidem 2019-04 Yes 10mg Take 10 mg Uni vers (AMBIEN) 10 0-28 by mouth ity of mg tablet 14:30: at [place] [address] bedtime. Medical Branch FLUoxetine 2019-04 Yes 80mg Take 80 mg U nivers (PROZAC) 40 0-28 by mouth ity of mg capsule 14:30: daily. [place] [address] Medical Branch ARIPiprazol 2019-04 Yes 5mg Take [...] First dose [place] mg 00 on Thu02/07/20 Branch at 2100, Until Discontinu ed, Routine NaCl 0.9% 2019-04 2020- No IV Univers (NS) IV 02-07 Infusion, ity of infusion 02:00: 09:59 at 125 [place] 00 :00 mL/hr, Medical CONTINUOUS Branch , Starting Thu02/07/20 at 2100, Until Thu02/08/20 at 0459, Routine HYDROcodone 2019-04 Yes 1{tbl} 1 tablet, Univers -acetaminop 0 Oral, BID, it y of hen ([place] 01:00: First dose [place] 5) 5-325 mg 00 on Thu Medica l tablet 1 02/07/20 Branch tablet [...] IV Push, ity of mg 00:21: 00:20 [facility], [place] 44 :44 Starting Medical [facility] 02/07/20 at 192, Until Thu02/08/20 at 192, Routine, Pain (scale 7-10), Chest pain acetaminoph 2019-04 2020- No 1{tbl} 1 tablet, Univers en-codeine 02-09 Oral, ity of (TYLENOL 00:21: [facility] [place] [facility] 300-30 33 :33 Starting Medic al mg tablet 1 [facility] tablet 02/07/20 at 192, Until [place] 02/09/20 at 1920, Routine, Pain (scale 4-6) acetaminoph 2019-04 Yes 650mg 650 mg, Un carol en 0 Oral, ity of (TYLENOL) 00:21: [place], [place] tablet 650 31 Starting Medic al mg [facility] 02/07/20 at 192, Until Discontinu ed, Routine, Pain (scale 1-3) FENTanyl PF 2019-04 2020- No 100ug 100 mcg, Univers (SUBLIMAZE 02-06 Slow IV ity o f (PF)) 23:30: 22:26 Push, [place] injection 00 :00 ONCE, 1 Medical 100 mcg dose, Tue Branch 02/07/20 at 1830, STAT nitroglycer 2019-04- No .4mg 0.4 mg, Un carol in 02-06 Sublingual ity of (NITROSTAT) 22:30: 21:30 , ONCE, 1 [place] sublingual 00 :00 dose, Tue Medi riky tablet 0.4 02/07/20 Branc h [...] of 350 21:30: 21:30 s, ONCE, 1 [place] BULK-150 00 :00 dose, Tue Medica l mL) 02/07/20 Branch injection at 1630, 120 mL Routine ondansetron 2019-04 2020- No 4mg 4 mg, Slow Univers (ZOFRAN 02-06 IV Push, ity of (PF)) 21:30: 20:30 ONCE, 1 [place] injection 4 00 :00 dose, Tue Med ical mg 02/07/20 Branch at 1630, LORENE morpHINE 2019-04 2020- No 4mg 4 mg, Slow Un carol injection 4 02-06 IV Push, ity of mg 21:30: 20:30 ONCE, 1 [place] 00 :00 dose, [facility] Medical 02/07/20 Branch at 1630, STAT morpHINE 2019-04 2020- No 4mg 4 mg, Slow Un carol injection 4 0-01-24 IV Push, ity of mg 02:15: 01:13 ONCE, 1 [place] 00 :00 dose, [facility] Medical 01/24/20 Branch at 2115, STAT ondansetron 2019-04 2020- No 4mg 4 mg, Slow Univers (ZOFRAN 0-01-24 IV Push, ity of (PF)) 02:15: 01:13 [...] ity of (PF)) 01:00: 23:47 ONCE, 1 [place] injection 4 00 :00 dose, [facility] Med ical mg 01/24/20 Branch at 2000, LORENE morpHINE 2019-04 2020- No 4mg 4 mg, Slow Un carol injection 4 0-14 10-13 IV Push, ity of mg 01:00: 23:47 ONCE, 1 [place] 00 :00 dose, Tu Medical 01/24/20 Branch at 2000, STAT iohexol 2019-04 2020- No 120mL 120 mL, Unive rs (OMNIPAQUE 0-13 10- Intravenou it y of 350 23:45: 23:45 s, ONCE, 1 [place] BULK-150 00 :00 dose, e Medica l mL) 01/24/20 Branch injection at 1845, 120 mL Routine zolpidem 2019-04 Yes 10mg Take 10 mg Uni vers (AMBIEN) 10 0-13 by mouth ity of mg tablet 22:12: at [place] [address] bedtime. Medical Branch FLUoxetine 2019-04 Yes 80mg Take 80 mg U nivers (PROZAC) 40 0-13 by mouth ity of mg capsule 22:12: daily. [place] [address] Medical Branch ARIPiprazol 2019-04 Yes 5mg Take [...] Indication s: acute pain ondansetron 2019- Yes [id number] 8mg Take 2 Univers 4 mg tablet 0-13 tablets by it y of 00:00: mouth [place] 00 every 8 Medical (eight) Branch hours as needed for Nausea and Vomiting (N/V). ondansetron 2019-04 Yes [id number] 8mg Take 2 Univers 4 mg tablet 0-13 tablets by it y of 00:00: mouth [place] 00 every 8 Medical (eight) Branch hours as needed for Nausea and Vomiting (N/V). ondansetron 2019-04 Yes [id number] 8mg Take 2 Univers 4 mg tablet 0-13 tablets by it y of 00:00: mouth [place] 00 every 8 Medical (eight) Branch hours as needed for Nausea and Vomiting (N/V). ondansetron 2019- Yes [id number] 8mg Take 2 Univers 4 mg tablet 0-13 tablets by it y of 00:00: mouth [place] 00 every 8 Medical (eight) Branch hours as needed for Nausea and Vomiting (N/V). ondansetron 2019-1 Yes [id number] 8mg Take 2 Univers 4 mg tablet 0-13 tablets by it y of 00:00: mouth [place] 00 every 8 Medical (eight) Branch hours as needed for Nausea and Vomiting (N/V). ondansetron 2019-1 Yes [id number] 8mg Take 2 Univers 4 mg tablet 0-13 tablets by it y of 00:00: mouth [place] 00 every 8 Medical (eight) Branch hours as needed for Nausea and Vomiting (N/V). ondansetron 2019- Yes [id number] 8mg Take 2 Univers 4 mg tablet 0-13 tablets by it y of 00:00: mouth [place] 00 every 8 Medical (eight) Branch hours as needed for Nausea and Vomiting (N/V). ondansetron 2019-04 Yes [id number] 8mg Take 2 Univers 4 mg tablet 0-13 tablets by it y of 00:00: mouth [place] 00 every 8 Medical (eight) Branch hours as needed for Nausea and Vomiting (N/V). ondansetron 2019-04 Yes [id number] 8mg Take 2 Univers 4 mg tablet 0-13 tablets by it y of 00:00: mouth [place] 00 every 8 Medical (eight) Branch hours as needed for Nausea and Vomiting (N/V). ondansetron 2019-04 Yes [id number] 8mg Take 2 Univers 4 mg tablet 0-13 tablets by it y of 00:00: mouth [place] 00 every 8 Medical (eight) Branch hours as needed for Nausea and Vomiting (N/V). ciprofloxac 2019-04 Yes [id number] 500mg Take 1 Univers in HCl 500 [...] Indication s: acute pain ondansetron 2019-04 Yes [id number] 8mg Take 2 Univers 4 mg tablet 0-13 tablets by it y of 00:00: mouth [place] 00 every 8 Medical (eight) Branch hours as needed for Nausea and Vomiting (N/V). traMADoL 50 2019-04 No [id number] 50mg Take 1 Uni vers mg tablet 0-13 01-15 tablet by ity of 00:00: 00:00 mouth [place] 00 :00 every 6 Medical (six) Branch hours as needed for Pain (scale 4-6). Indication s: acute pain ciprofloxac 2019-04- No [id number] 500mg Take 1 Univers in HCl 500 0-13 10-28 tablet by ity of mg tablet 00:00: 00:00 mouth 2 [place] 00 :00 (two) Medical times Branch daily. dicyclomine No 20mg 20 mg, Uni vers (BENTYL) 2-20 02-20 Intramuscu ity of injection 20:45: 20:08 lar, ONCE, [place] 20 mg 00 :00 1 dose, Medical [place] Branch 06/02/19 at 1445, Routine ondansetron 2019-0 2020- No 4mg 4 mg, Slow Univers (ZOFRAN 2-20 02-20 IV Push, ity of (PF)) 19:00: 17:54 ONCE, 1 [place] injection 4 00 :00 dose, [place] Med ical mg 06/02/19 at Branch 1300, LORENE morpHINE 2019-0 2020- No 4mg 4 mg, Slow Un carol injection 4 -20 02-20 IV Push, ity of mg 19:00: 17:54 ONCE, 1 [place] 00 :00 dose, [place] Medical 06/02/19 at Branch 1300, STAT iohexol 2019-0 2020- No 120mL 120 mL, Unive rs (OMNIPAQUE -02 06- Intravenou it y of 350 18:37: 18:35 s, ONCE, 1 [place] BULK-150 00 :00 dose, [place] Medica l mL) 06/02/19 at Branch injection 1300, 120 mL Routine NaCl 0.9% 2019-0 2020- No 1000mL at 999 Uni vers (NS) bolus 2-20 02-20 mL/hr, ity of infusion 17:30: 19:11 1,000 mL, [place] 1,000 mL 00 :00 IV Medical Infusion, Branch ONCE, 1 dose, [place] 06/02/19 at 1130, LORENE dicyclomine 2020-0 Yes [id number] 10mg Take 1 Univers (BENTYL) 10 2-20 capsule by it y of mg capsule 00:00: mouth 4 [place] 00 (four) Medical times Branch daily as needed for Abdominal pain. dicyclomine 2020-0 Yes [id number] 10mg Take 1 Univers (BENTYL) 10 2-20 capsule by it y of mg capsule 00:00: mouth 4 [place] 00 (four) Medical times Branch daily as needed for Abdominal pain. dicyclomine 2020-0 2020- No [id number] 10mg Take 1 Univers (BENTYL) 10 2-20 10-13 capsule by i ty of mg capsule 00:00: 00:00 mouth 4 [place] 00 :00 (four) Medical times Branch daily as needed for Abdominal pain. traMADol Yes [id number] 50mg Take 1 Univers (ULTRAM) 50 9-28 [id number] tablet by i ty of mg tablet 00:00: mouth [place] 00 every 8 Medical (eight) Branch hours as needed for Pain (scale 4-6). traMADol Yes [id number] 50mg Take 1 Univers (ULTRAM) 50 9-28 [id number] tablet by i ty of mg tablet 00:00: mouth [place] 00 every 8 Medical (eight) Branch hours as needed for Pain (scale 4-6). traMADol 2020- No [id number] 50mg Take 1 Univers (ULTRAM) 50 9-28 10-13 [id number] tablet by ity of mg tablet 00:00: 00:00 mouth [place] 00 :00 every 8 Medical (eight) Branch hours as needed for Pain (scale 4-6). nebivolol Yes Take by Unive rs HCl 9-26 mouth ity of (BYSTOLIC 20:20: daily. [place] ORAL) Medical Branch zolpidem Yes 10mg Take 10 mg Uni vers (AMBIEN) 10 9-26 by mouth ity of mg tablet 20:20: at [place] [address] bedtime. Medical Branch HYDROcodone Yes 1{tbl} Take 1 Un carol -acetaminop 9-26 tablet by ity of hen 7.5-325 20:20: mouth 2 [place] as mg per 01 (two) Medical tablet times Branch daily. FLUoxetine [...] mouth ity of tablet 20:20: at bedtime [place] [address] as needed Medical for Branch Itching or Anxiety. nebivolol Yes Take by Unive rs HCl 9-26 mouth ity of (BYSTOLIC 20:20: daily. [place] ORAL) Medical Branch zolpidem Yes 10mg Take 10 mg Uni vers (AMBIEN) 10 01-06 by mouth ity of mg tablet 20:20: at [place] [address] bedtime. Medical Branch HYDROcodone Yes 1{tbl} Take 1 Un carol -acetaminop 01-06 tablet by ity of hen 7.5-325 20:20: mouth 2 [place] as mg per (two) Medical tablet times Branch daily. FLUoxetine Yes 60mg Take 60 mg U nivers (PROZAC) 40 01-06 by mouth ity of mg capsule 20:20: daily. [place] [facility] ARIPiprazol Yes 5mg Take 5 mg U nivers e (ABILIFY) 01-06 by mouth ity of 5 mg tablet 20:20[place] hydrOXYzine Yes 25mg Take 25 mg Univers 25 mg 01-06 by mouth ity of tablet 20:20: at bedtime [place] [address] as needed Medical for Branch Itching or Anxiety. nebivolol Yes Take by Unive rs HCl 01-06 mouth ity of (BYSTOLIC 20:20: daily. [place] ORAL) Medical Branch Abilify Abilify No Abilify [...] Source Systolic blood 2022-09-15 17:00:00 107 mm[Hg] [facility] [place] Diastolic blood 2022-09-15 17:00:00 79 mm[Hg] [facility] Heart rate 2022-09-15 17:00:00 86 /min [facility] Respiratory rate 2022-09-15 17:00:00 16 /min [facility] Oxygen saturation in 2022-09-15 17:00:00 100 /min [facility] Arterial blood by [facility] Pulse oximetry [place] Body temperature 2022-09-15 13:03:00 36.61 Elodia [facility] Body weight 2022-09-15 13:03:00 79.379 kg [facility] BMI 2022-09-15 13:03:00 32.01 kg/m2 [facility] Systolic blood 2022-07-03 15:56:00 117 mm[Hg] [facility] Diastolic blood 2022-07-03 15:56:00 78 mm[Hg] [facility] Heart rate 2022-07-03 15:56:00 77 /min [facility] height 2022-07-03 15:56:00 157[facility]5 [facility] weight 2022-07-03 15:56:00 83.915 [facility] BMI 2022-07-03 15:56:00 33.84 kg/m2 [facility] HEIGHT 2021-10-15 11:42:00 157.5 cm WEIGHT 2021-10-15 11:42:00 83.915 kg HEIGHT 2021-10-15 11:42:00 157.5 cm WEIGHT 2021-10-15 11:42:00 83.915 kg HEIGHT 2021-10-15 11:42:00 157.5 cm WEIGHT 2021-10-15 11:42:00 83.915 kg BP Diastolic 2020-08-24 00:00:00 90 mm[Hg] [facility] Height 2020-08-24 00:00:00 62 [in_i] [facility] BMI (Body Mass 2020-08-24 00:00:00 32 kg/m2 [facility] Index) BP Systolic 2020-08-24 00:00:00 124 mm[Hg] [facility] Body Weight 2020-08-24 00:00:00 175 [lb_av] Ting rosado Heart rate 2020-07-23 19:30:00 75 /min Universi ty of [facility] Oxygen saturation in 2020-07-23 19:30:00 100 /min University of Arterial blood by [facility] Pulse oximetry Branch Systolic blood 2020-07-23 18:00:00 142 mm[Hg] Univer sity of [facility] Diastolic blood 2020-07-23 18:00:00 97 mm[Hg] Unive rsity of [facility] Respiratory rate 2020-07-23 18:00:00 20 /min [facility] 2020-07-23 16:37:00 37.11 Elodia [facility] height 2020-07-23 16:37:00 157.5 cm Universi ty [facility] Branch Body weight 2020-07-23 16:37:00 79.379 kg Universi ty [facility] Branch BMI 2020-07-23 16:37:00 32.01 kg/m2 Universi ty [facility] Branch Heart rate 2020-07-23 19:30:00 75 /min Universi ty [facility] Oxygen saturation in 2020-07-23 19:30:00 100 /min University of Arterial blood by [facility] Pulse oximetry Branch Systolic blood 2020-07-23 18:00:00 142 mm[Hg] Univer sity of pressure [place] [facility] Diastolic blood 2020-07-23 18:00:00 97 mm[Hg] Unive rsity of pressure [place] [facility] Respiratory rate 2020-07-23 18:00:00 20 /min Univ ersity of [place] [facility] Body temperature 2020-07-23 16:37:00 37.11 Elodia Univ ersity of [place] [facility] Body height 2020-07-23 16:37:00 157.5 cm [facility]i ty [facility] [place] [facility] Body weight 2020-07-23 16:37:00 79.379 kg [facility] [place] [facility] BMI 2020-07-23 16:37:00 32.01 kg/m2 [facility] [place] [facility] Systolic blood 2020-04-27 23:25:00 112 mm[Hg] Univer sity of pressure [place] [facility] Diastolic blood 2020-04-27 23:25:00 87 mm[Hg] Unive rsity of pressure [place] [facility] Heart rate 2020-04-27 23:25:00 78 /min [facility]i ty [facility] [place] [facility] Respiratory rate 2020-04-27 23:25:00 18 /min Univ ersity [facility] [place] [facility] Oxygen saturation in 2020-04-27 23:25:00 99 /min University of Arterial blood by [facility] Pulse oximetry Branch Body temperature 2020-04-27 17:24:00 37.06 Elodia Univ ersity of [place] [facility] Body height 2020-04-27 17:24:00 157.5 cm Universi ty [facility] [place] [facility] Body weight 2020-04-27 17:24:00 77.111 kg [facility]i ty [facility] [place] [facility] BMI 2020-04-27 17:24:00 31.09 kg/m2 [facility] [place] [facility] Systolic blood 2020-04-27 23:25:00 112 mm[Hg] Univer sity of pressure [place] [facility] Diastolic blood 2020-04-27 23:25:00 87 mm[Hg] Unive rsity of pressure [place] [facility] Heart rate 2020-04-27 23:25:00 78 /min Universi ty [facility] [place] [facility] Respiratory rate 2020-04-27 23:25:00 18 /min Univ ersity of [place] [facility] Oxygen saturation in 2020-04-27 23:25:00 99 /min University of Arterial blood by [place] [employer] Pulse oximetry Branch Body temperature 2020-04-27 17:24:00 37.06 Elodia Univ ersity of [place] [facility] Body height 2020-04-27 17:24:00 157.5 cm Universi ty [facility] [place] [facility] Body weight 2020-04-27 17:24:00 77.111 kg [facility] [place] [facility] BMI 2020-04-27 17:24:00 31.09 kg/m2 [facility] [place] [facility] Systolic blood 2020-02-08 16:45:00 114 mm[Hg] Univer sity of pressure [place] [facility] Diastolic blood 2020-02-08 16:45:00 84 mm[Hg] Unive rsity of pressure [place] [facility] Heart rate 2020-02-08 16:45:00 80 /min Universi ty [facility] [place] [facility] Body temperature 2020-02-08 16:45:00 36.06 Elodia Univ ersity of [place] [facility] Respiratory rate 2020-02-08 16:45:00 20 /min Univ ersity of [place] [facility] Oxygen saturation in 2020-02-08 16:45:00 96 /min University of Arterial blood by [employer] Pulse oximetry Branch Body height 2020-02-08 00:37:00 152.4 cm Universi ty [facility] [place] [facility] Body weight 2020-02-08 00:37:00 78.019 kg [facility]i ty [facility] [place] [facility] BMI 2020-02-08 00:37:00 33.59 kg/m2 [facility] [place] [facility] Systolic blood 2020-02-08 16:45:00 114 mm[Hg] Univer sity of pressure [place] [facility] Diastolic blood 2020-02-08 16:45:00 84 mm[Hg] Unive rsity of pressure [place] [facility] Heart rate 2020-02-08 16:45:00 80 /min [facility]i ty [facility] [place] [facility] Body temperature 2020-02-08 16:45:00 36.06 Elodia Univ ersity of [place] [facility] Respiratory rate 2020-02-08 16:45:00 20 /min Univ ersity of [place] [facility] Oxygen saturation in 2020-02-08 16:45:00 96 /min University of Arterial blood by [employer] Pulse oximetry Branch Body height 2020-02-08 00:37:00 152.4 cm [facility]i ty [facility] [place] [facility] Body weight 2020-02-08 00:37:00 78.019 kg [facility] [place] [facility] BMI 2020-02-08 00:37:00 33.59 kg/m2 [facility] [place] [facility] Systolic blood 2020-01-25 02:00:00 134 mm[Hg] Univer sity of pressure [place] [facility] Diastolic blood 2020-01-25 02:00:00 94 mm[Hg] Unive rsity of pressure [place] [facility] Heart rate 2020-01-25 02:00:00 83 /min Universi ty [facility] [place] [facility] Oxygen saturation in 2020-01-25 02:00:00 96 /min University of Arterial blood by [place] [employer] Pulse oximetry Branch Respiratory rate 2020-01-25 01:00:00 16 /min Univ ersity of [place] [facility] Body temperature 2020-01-24 22:09:00 37.11 Elodia Univ ersity [facility] [place] [facility] Body height 2020-01-24 22:09:00 157.5 cm [facility]i ty [facility] [place] [facility] Body weight 2020-01-24 22:09:00 78.336 kg [facility] [place] [facility] BMI 2020-01-24 22:09:00 31.59 kg/m2 [facility] [place] [facility] Systolic blood 2020-01-25 02:00:00 134 mm[Hg] Univer sity of pressure [place] [facility] Diastolic blood 2020-01-25 02:00:00 94 mm[Hg] Unive rsity of pressure [place] [facility] Heart rate 2020-01-25 02:00:00 83 /min [facility]i ty [facility] [place] [facility] Oxygen saturation in 2020-01-25 02:00:00 96 /min University of Arterial blood by [place] [employer] Pulse oximetry Branch Respiratory rate 2020-01-25 01:00:00 16 /min Univ ersity of [place] [facility] Body temperature 2020-01-24 22:09:00 37.11 Elodia Univ ersity [facility] [place] [facility] Body height 2020-01-24 22:09:00 157.5 cm [facility] [place] [facility] Body weight 2020-01-24 22:09:00 78.336 kg [facility]i [facility] [place] [facility] BMI 2020-01-24 22:09:00 31.59 kg/m2 [facility] [place] [facility] Systolic blood 2019-06-02 19:00:00 126 mm[Hg] Univer sity of pressure [place] [facility] Diastolic blood 2019-06-02 19:00:00 81 mm[Hg] Unive rsity of pressure [place] [facility] Heart rate 2019-06-02 19:00:00 86 /min [facility]i ty [facility] [place] [facility] Respiratory rate 2019-06-02 19:00:00 17 /min Univ ersity [facility] [place] [facility] Oxygen saturation in 2019-06-02 19:00:00 96 /min University of Arterial blood by [facility] Pulse oximetry Branch Body temperature 2019-06-02 17:14:00 36.61 Elodia Univ ersity of [place] [facility] Body height 2019-06-02 17:14:00 157.5 cm Universi ty [facility] [place] [facility] [place] Body weight 2019-06-02 17:14:00 74.844 kg [facility]i ty [facility] [place] [facility] BMI 2019-06-02 17:14:00 30.18 kg/m2 [facility] [place] [facility] Systolic blood 2019-06-02 19:00:00 126 mm[Hg] Univer sity of pressure [place] [facility] Diastolic blood 2019-06-02 19:00:00 81 mm[Hg] Unive rsity of pressure [place] [facility] Heart rate 2019-06-02 19:00:00 86 /min [facility]i ty [facility] [place] [facility] Respiratory rate 2019-06-02 19:00:00 17 /min Univ ersity [facility] [place] [facility] Oxygen saturation in 2019-06-02 19:00:00 96 /min [facility] of Arterial blood by [facility] Pulse oximetry Branch Body temperature 2019-06-02 17:14:00 36.61 Elodia Univ ersity [facility] [place] [facility] Body height 2019-06-02 17:14:00 157.5 cm [facility]i ty [facility] [place] [facility] Body weight 2019-06-02 17:14:00 74.844 kg [facility] [place] [facility] BMI 2019-06-02 17:14:00 30.18 kg/m2 Universi ty of [facility] Systolic blood 2021-10-15 17:34:00 121 mm[Hg] [facility] Diastolic blood 2021-10-15 17:34:00 69 mm[Hg] [facility] Heart rate 2021-10-15 17:34:00 68 /min [facility] Respiratory rate 2021-10-15 17:34:00 18 /min [facility] Oxygen saturation in 2021-10-15 17:34:00 100 /min [facility] Arterial blood by Medical Ce nter Pulse oximetry Body temperature 2021-10-15 11:42:00 36.83 Elodia [facility] Body height 2021-10-15 11:42:00 157.5 cm [facility] Body weight 2021-10-15 11:42:00 83.915 kg [facility] BMI 2021-10-15 11:42:00 33.84 kg/m2 [facility] Procedures Procedure Date / Time Performing Clinician Source Performed CT ANGIOGRAM 2022-09-15 14:32:00 Caitie Shipley [facility] ABDOMEN/PELVIS Medical Branch LIPASE 2022-09-15 13:30:00 [facility] HEPATIC FUNCTION PANEL 2022-09-15 13:30:[address] [facility] ([id number]) (ALB,T.PRO,BILI Medical Branch T,BU/BC,ALT,AST,ALK PHOS) BASIC METABOLIC PANEL 2022-09-15 13:30:00 C[facility]ie [facility] (NA, K, CL, CO2, Medical Branch GLUCOSE, BUN, CREATININE, CA) CBC WITH DIFF 2022-09-15 13:30:00 [facility] URINALYSIS 2022-09-15 13:30:00 [facility] POCT TEST 2022-09-15 13:30:00 Caitie Shipley [facility] CONSENT/REFUSAL FOR 2022-09-15 12:57:18 Doctor Unassigned, No [facility] CT BRAIN WITHOUT IV 2021-10-15 12:42:00 Elise Rice [facility] PHYSICIAN ORDERS 2021-08-13 05:01:00 Doctor Unassigned, No [facility] Name [facility] Branch ASSIGNMENT OF BENEFITS 2021-07-16 14:15:53 Doctor Unassigned, No [facility] ASSIGNMENT OF BENEFITS 2021-06-18 14:59:31 Doctor Unassigned, No [facility] ULTRASOUND OF PELVIS 2020-08-24 00:00:00 [facility] OVARY TORSION 2020-07-23 19:10:[facility]EL[facility] W 2020-07-23 17:15:00 Megan Lyons [facility] CONTRAST [facility] Branch HEPATIC FUNCTION PANEL 2020-07-23 16:49:00 Vikas [facility] ([id number]) (ALB,T.PRO,BILI Medical Branch T,BU/BC,ALT,AST,ALK PHOS) BASIC METABOLIC PANEL 2020-07-23 16:49:00 [facility] ([facility], K, CL, CO2, Medical Branch GLUCOSE, BUN, CREATININE, CA) CBC WITH DIFF 2020-07-23 16:49:00 Vikas [facility] URINALYSIS 2020-07-23 16:49:00 Vikas [facility] POCT TEST 2020-07-23 16:48:00 Megan [facility] NOTICE OF PRIVACY 2020-07-23 16:32:51 Doctor Unassigned, No [facility] CONSENT/REFUSAL FOR 2020-07-23 16:32:01 Doctor Unassigned, No [facility] DIAGNOSIS AND TREATMENT [facility] CT HEAD WO CONTRAST 2020-04-27 19:40:14 [facility] TROPONIN I 2020-04-27 18:41:00 Ann Cardozo [facility] BASIC METABOLIC PANEL 2020-04-27 18:41:00 Ann Cardozo [facility] (NA, K, CL, CO2, Medical Branch GLUCOSE, BUN, CREATININE, CA) CBC WITH DIFF 2020-04-27 18:41:00 Ann Cardozo [facility] HB ECG ROUTINE & RHYTHM 2020-04-27 17:58:58 Ann Cardozo [facility] NOTICE OF PRIVACY 2020-04-27 17:21:19 Doctor Unassigned, No [facility] PRACTICES Name Medical Branch CONSENT/REFUSAL FOR 2020-04-27 17:21:03 Doctor Unassigned, No [facility] DIAGNOSIS AND TREATMENT Name Medical Branch TROPONIN I 2020-02-08 10:03:00 Josr [facility] BASIC METABOLIC PANEL 2020-02-08 10:03:00 [facility] (NA, K, CL, CO2, Medical Branch GLUCOSE, BUN, CREATININE, CA) CBC WITH DIFF 2020-02-08 10:03:00 [facility] TROPONIN I 2020-02-08 04:27:00 [facility] COVID-19 (ID NOW RAPID 2020-02-07 22:40:[address] [facility] TESTING) Medical Branch MAGNESIUM 2020-02-07 22:22:00 Jos[facility] TROPONIN I 2020-02-07 22:22:00 Travis Angelo [facility] THYROID STIMULATING 2020-02-07 22:22:00 Josr Sharon [facility] HORMONE [facility] Branch LIPID PANEL 2020-02-07 22:22:00 Josr Sharon [facility] ([id number])(TOTAL Medical Branch CHOLESTEROL, TRIGLYCERIDES, HDL) CT ABDOMEN PELVIS W 2020-02-07 21:28:58 Angelo Robles [facility] CONTRAST Medical Branch CT CHEST PULMONARY 2020-02-07 21:28:58 Angelo Robles [facility] ANGIOGRAM Medical Branch XR CHEST 1 VW 2020-02-07 20:36:36 Angelo Robles [facility] POCT TEST 2020-02-07 20:03:00 Angelo Robles [facility] URINALYSIS 2020-02-07 20:02:00 Angelo Robles [facility] LIPASE 2020-02-07 19:58:00 Angelo Robles [facility] TROPONIN I 2020-02-07 19:58:00 Angelo Robles [facility] HEPATIC FUNCTION PANEL 2020-02-07 19:58:[address] [facility] ([id number]) (ALB,T.PRO,BILI Medical Branch T,BU/BC,ALT,AST,ALK PHOS) BASIC METABOLIC PANEL 2020-02-07 19:58:00 Angelo [facility]les [facility] (NA, K, CL, CO2, Medical Branch GLUCOSE, BUN, CREATININE, CA) CBC WITH DIFF 2020-02-07 19:58:00 Angelo Robles [facility] PROTHROMBIN TIME / INR 2020-02-07 19:58:00 Angelo [facility] ACTIVATED PARTIAL 2020-02-07 19:58[facility] N-TERMINAL PRO-BNP 2020-02-07 19:58:00 Angelo Robles [facility] HB ECG ROUTINE & RHYTHM 2020-02-07 19:51:07 Angelo Robles [facility] CONSENT/REFUSAL FOR 2020-02-07 19:42:57 Doctor Unassigned, No [facility] Name Medical [place] CT ABDOMEN PELVIS W 2020-01-24 23:32:59 Mark Armijo [facility] CONTRAST [facility] POCT TEST 2020-01-24 23:22:00 Mark Armijo [facility] LIPASE 2020-01-24 22:41:00 Mark Armijo [facility] COMP. METABOLIC PANEL 2020-01-24 22:41:00 Mark Armijo [facility] ([id number]) Medical Branch CBC WITH DIFF 2020-01-24 22:41:00 Mark Armijo [facility] URINALYSIS 2020-01-24 22:41:00 [place] [facility] NOTICE OF PRIVACY 2020-01-24 22:03:28 Doctor Unassigned, No [facility] PRACTICES Name Medical [place] CONSENT/REFUSAL FOR 2020-01-24 22:03:15 Doctor Unassigned, [facility] Name Medical [place] CT ABDOMEN PELVIS W 2019-06-02 18:46:40 Candido Ramirez [facility] Branch POCT TEST 2019-06-02 17:48:00 Candido [facility] LIPASE 2019-06-02 17:47:00 Candido Ramirez [facility] COMP. METABOLIC PANEL 2019-06-02 17:47:[address] [facility] ([id number]) [facility] CBC WITH DIFFERENTIAL 2019-06-02 17:47:00 Candido [facility] URINALYSIS 2019-06-02 17:47:00 Candido Ramirez [facility] CONSENT/REFUSAL FOR 2019-06-02 17:08:56 Doctor Unassigned, No Un [facility] DIAGNOSIS AND TREATMENT Name Medical Branch Gi Tract Capsule 2017-11-10 00:00:[address] [facility] Medi riky Endoscopy Tubal Ligation [facility] Medical Caesarean Section [facility] Medical Plan of Care Planned Activity Planned Date Details Comments Source Future Scheduled 2022-12-[address] [facility] Test 00:00:00 (Season Ended) [code Medical Center = INFLUENZA VACCINE (Season Ended)] Future Scheduled 2022-12-[address] [facility] Test 00:00:00 (Season Ended) [code Medical Center = Influenza Vaccine (Season Ended)] Future Scheduled 2022-12-[address] [facility] Test 00:00:00 (Season Ended) [code [facility] Center = Influenza Vaccine (Season Ended)] Future [...] Medical Center INFLUENZA VACCINE (#1)] Future Scheduled 2021-04-[address] [facility] Test 00:00:00 (12+) [code = Medical Center DEPRESSION SCREENING (12+)] Future Scheduled 2021-04-[address] [facility] Test 00:00:00 (12+) [code = Medical Center DEPRESSION SCREENING (12+)] Future Scheduled [address] [facility] 00:[facility]:00 malignant neoplasm of Medica l Center cervix (procedure) [code = 360059792] Future Scheduled [address] [facility] 00[facility]00:00 malignant neoplasm of Medica l Center cervix (procedure) [code = 547945784] Future Scheduled [address] [facility] Test 00:00:00 malignant neoplasm of Medica l Center cervix (procedure) [code = 433262834] Future Scheduled [address] [facility] Test 00:00:00 malignant neoplasm of Medica l Center cervix (procedure) [code = 794843999] Future Scheduled [address] [facility] Test 00:00:00 malignant neoplasm of Medica l Center cervix (procedure) [code = 977882042] Future Scheduled [address] [facility] Test 00:00:00 malignant neoplasm of Medica l Center cervix (procedure) [code = 907159931] Future Scheduled [address] [facility] Test 00:00:00 (procedure) [code = [facility] [id number]] Future Scheduled [address] [facility] Test 00:00:00 (procedure) [code = [facility] [id number]] Future Scheduled [address] [facility] Test 00:00:00 (procedure) [code = [facility] [id number]] Future Scheduled [address] [facility] Test 00:00:00 (procedure) [code = [facility] [id number]] Future Scheduled [address] [facility] Test 00:00:00 (procedure) [code = [facility] [id number]] Future Scheduled [address] [facility] Test 00:00:00 (procedure) [code = [facility] [id number]] Future Scheduled 1999-10-09 DTAP/TDAP/TD VACCINES CH I [...] Type Clinicians Facility Department ID 2022-08-16 Outpatient [facility] [id number] [place] 15:19:06 [id number] [facility] 2022-07-03 Outpatient [facility] [id number] [place] 10:37:25 [id number] [facility] 2022-07-02 Outpatient [facility] [id number] [place] 15:48:54 [id number] [facility] 2022-04-02 Outpatient [facility] [id number] [place] 13:15:41 [id number] [facility] 2021-02-10 Emergency [facility] [id number] Univers 12:15:04 ity [facility] 2021-02-09 Emergency [facility] [id number] Univers 17:33:49 ity [facility] 2021-02-09 Emergency [facility] [id number] Univers 01:23:23 ity [facility] 2021-02-08 Emergency [facility] [id number] Univers [facility] 2022-09-15 Emergency X [facility] ERT [id number] Univers 08:09:00 13:17:00 CYNISE ity [facility] 2022-09-15 2022-09-15 Emergency [facility] [id number] Univers 08:09:00 13:17:00 Caitie HERNANDEZ [id number] i ty of [facility] [id number] [facility] [id number] [facility] 084 [place] 2022-08-25 2022-08-25 Outpatient [facility] [id number] [place] 13:45:00 13:45:00 ANGEL [facility] 2022-07-03 2022-07-03 Office [facility] [id number] [place] 10:45:00 10:45:00 Visit ANGEL MOSQUEDA [id number] [facility] [id number] 2022-05-21 2022-05-21 Outpatient [facility] [id number] [place] 09:30:00 09:30:00 ANGEL [facility] 2021-10-15 2021-10-15 Emergency ER JAGJIT, [facility] Emergency [id number] SLS 14:24:00 17:37:00 WILLIS WHARF 2021-10-15 2021-10-15 Emergency [place], [facility] [id number] 14:24[facility] 17:37:[address] [facility] 2021-10-15 2021-10-15 Emergency [place], [facility] [id number] 14:24:[facility] 17:37:00 [facility] 2021-10-15 2021-10-15 Travel [facility] [id number] [facility] St 00:00:00 00:00:00 [facility] 2021-10-15 2021-10-15 Travel [facility] [id number] [facility] 00:[facility]00 [facility] 2021-08-13 2021-08-13 Road Passenger Firer Luis, Radha Lab Main [facility] 1.2.8 40.114 [id number] [facility] 12:15:00 12:30:00 Visit Ariel Britt 350.1.13.1 0 braden [facility] 4.2.7.2.686 Jessica BRADFORD [phone] [address] 2021-08-13 2021-08-13 Outpatient Judy BRITT [facility] [id number] [facility] 12:15:00 12:15:00 ARIEL feliciano [facility] 2021-08-13 2021-08-13 Orders Doctor STALEY 1.2.840.114 [id number] Univers 00:00:00 00:00:00 Only Unassigned, SHARON 350.1.13.10 ity of [place] [facility] 4.2.7.2.686 Craig as [phone] [address] 2021-07-16 2021-07-16 Road Passenger Firer Luis, Adc Lab Main [facility] 1.2.8 40.114 [id number] Univers 09:30:00 09:45:00 Visit Paul Sams 350.1.13.10 [place] [phone] Mi dical NAL 353 [facility] 2021-07-16 2021-07-16 Outpatient [facility] [id number] Univers 09:30:00 09:30:00 PAUL feliciano [facility] 2021-07-16 2021-07-16 Orders Doctor LUÍS Del Cid2.840.114 [id number] Univers 00:00:00 00:00:00 Only Unassigned, SHARON 350.1.13.10 ity of [place] [facility] 4.2.7.2.686 Craig as [id number] [address] 2021-06-18 2021-06-18 Outpatient R [facility] [id number] Univers 08:45:00 10:27:48 PAUL feliciano [facility] 2021-06-18 2021-06-18 Road Passenger Firer Luis, Adc Lab Main [facility] 1.2.8 40.114 [id number] Univers 08:45:00 09:00:00 Visit Paul Sams 350.1.13.10 [place] [phone] Mi dical NAL 353 [facility] 2021-06-18 2021-06-18 Orders Doctor LUÍS Del Cid2.840.114 [id number] Univers 00:00:00 00:00:00 Only Unassigned, SHARON 350.1.13.10 ity of [place] [facility] 4.2.7.2.686 Craig as [phone] [address] 2020-08-24 2020-08-24 Outpatient _[facility]_ PRIV PRIV 506 [id number] [facility] 02:56:00 02:56:00 Ludwin 113501 Medic al 2020-08-24 2020-08-24 Outpatient TAYLOR Pierce [id number] 1-2 00:00:00 00:00:00 Alex [id number] Jay [id number] 2020-08-24 2020-08-24 Alex VAZQUEZ DC - [facility] 14 [facility] 00:00:00 00:00:00 [facility] - Medic al Stan GC_LARRY_ : [address] [facility]* [place], [address], [place] [address] , Ph. 2020-07-23 2020-07-23 Emergency Lyons, [facility] 1.2.840.114 [id number] 11:40:00 15:16:00 Megan eHrnandez 350.1.13.[address] [place] [address] [place] [address] [phone] [facility] 2020-07-23 2020-07-23 Emergency Lyons, [facility] 1.2.840.114 [id number] [facility] 11:40:00 15:16:00 Megan Hernandez 350.1.13.10 i ty of [place] 4.2.7.2.686 [facility] [phone] [address] 2020-04-27 2020-04-27 Emergency Levi, [facility] 1.2.840.114 [id number] 11:25:00 18:21:00 Ann Hernandez 350.1.13.10 [place] [address] [place] [address] [phone] [facility] 2020-04-27 2020-04-27 Emergency Levi, [facility] 1.2.840.114 [id number] [facility] 11:25:00 18:21:00 Ann Hernandez 350.1.13.10 ity of [place] 4.2.7.[address] [place] [address] [phone] [place] [address] [place] 2020-02-07 2020-02-08 Emergency Angeol Robles [facility] 1.2.840. 114 [id number] 14:46:00 14:26:00 Naun Bush Edward 350.1.13.10 [place] 4.2.7.2.686 [place] [phone] 081 2020-02-07 2020-02-08 Emergency Angelo Robles [facility] 1.2.840. 114 [id number] [facility] 14:46:00 14:26:00 Naun Bush 350.1.13.10 ity of [place] 4.2.7.2.686 [facility] [phone] [place] [address] Branch 2020-01-24 2020-01-[address] [facility] 1.2.808.331 [id number] 17:12:00 21:15:00 Mark Dewitt Edward 350.1.13.10 [place] 4.2.7.2.686 [place] [phone] [facility] 2020-01-24 2020-01-[address] [facility] 1.2.673.198 [id number] [facility] 17:12:00 21:15:00 Mark Dewitt Edward 350.1.13.10 i ty of [place] 4.2.7.2.686 [facility] [phone] [place] [address] Branch 2020-01-24 2020-01-24 Orders Doctor STALEY 1.2.840.114 [id number] 00:00:00 00:00:00 Only Unassigned, SHARON 350.1.13.10 [place] [facility] 4.2.7.2.686 [phone] [facility] 2020-01-24 2020-01-24 Orders Doctor STALEY 1.2.840.114 [id number] [facility] 00:00:00 00:00:00 Only Unassigned, SHARON 350.1.13.10 ity of [place] [facility] 4.2.7.2.686 [place] [phone] [place] [address] Branch 2019-06-02 2019-06-02 [facility] 1.2.840.114 [id number] 11:18:34 14:43:00 Candidograciela Hernandez 350.1.13.10 [place] 4.2.7.2.686 [place] [phone] [facility] 2019-06-02 2019-06-02 Emergency [facility] 1.2.840.114 [id number] Univers 11:18:34 14:43:00 Candido Hernandez 350.1.13.10 i ej nisa [place] 4.2.7.2.686 [facility] [phone] [place] [address] [place] 2019-06-02 2019-06-02 Emergency X JAMES, [facility] ERT [id number] Univers 11:18:34 14:43:00 CANDIDO ity of [facility] Results Test Description Test Time Test Comments Results Result Comments Source BASIC METABOLIC PANEL (NA, K, CL, CO2, GLUCOSE, BUN, 2022-09 14:12:52 CREATININE, CA) Test Item Value Reference Range Interpretation Comme nts NA (test code = 2231638227) 140 mmol/L 135-145 K (test code = 6724773707) 4.2 mmol/L 3.5-5.0 CL (test code = 5937527903) 104 mmol/L 98-108 CO2 TOTAL (test code = 7525141154) 21 mmol/L 23-31 L AGAP (test code = 4052864778) 15 2-16 BUN (test code = 6330787923) 11 mg/dL 7-23 GLUCOSE (test code = 2808091850) 125 mg/dL 70-110 H CREATININE (test code = 0.81 mg/dL 0.50-1.04 2248826758) CALCIUM (test code = 8751396778) 10.4 mg/dL 8.6-10.6 eGFR (test code = 0176460617) 77.9 mL/min/1.73m2 JOSH (test code = JOSH) [...] tests). Lab Interpretation (test code = Abnormal 35227-7) [facility]HEPAT[facility] FUNCTION PANEL (67208) (ALB,T.PRO,BILI T,BU/BC,ALT,AST,ALK PHOS)2022-09-15 14:12:52 Test Item Value Reference Range Interpretation Comments TOTAL BILI (test code = 9535601335) 0.5 mg/dL 0.1-1.1 BILI UNCON (test code = 1966510380) 0.3 mg/dL 0.1-1.1 BILI CONJ (test code = 9627940462) 0.0 mg/dL 0.0-0.3 T PROTEIN (test code = 2134791021) 7.7 g/dL 6.3-8.2 ALBUMIN (test code = 9576254526) 4.9 g/dL 3.5-5.0 ALK PHOS (test code = 9480019534) 100 U/L 34-122 ALTv (test code = 1742-6) 29 U/L 5-35 AST(SGOT) (test code = 3113657107) 28 U/L 13-40 Lab Interpretation (test code = Normal 46259-3) [facility] CampusLIPASE2023-06-05 14:12:52 Test Item Value Reference Range Interpretation Comments LIPASE (test code = 7145923421) 137 U/L 0-220 Lab Interpretation (test code = Normal 38912-3) [facility] CampusCBC WITH [id number] 13:49:51 Test Item Value Reference Range Interpretation Comments WBC (test code = 10.62 See_Comment [Automated 6690-2) message] The sy stem [...] RDW-SD (test code = 43.9 fL 39.0-49.9 72599-3) RDW-CV (test code = 13.9 % 12.0-15.5 788-0) PLT (test code = 308 See_Comment [Automated 777-3) message] The sy stem which generated this result transmitted reference range : 166 - 358 10*3/ ?L. The reference r susan was not used to interpret this result as normal/abnormal . MPV (test code = 11.2 fL 9.5-12.9 71735-1) NRBC/100 WBC (test 0.0 See_Comment [Automat ed code = 6384640036) message] The system which generated this result transmitted reference range : 0.0 - 10.0 /100 WBCs. The refer ence range was not u sed to interpret th is result as normal/abnormal . NRBC x10^3 (test code See_Comment [Auto mated = 7431094305) message] The s ystem which generated this result transmitted reference range : 10*3/?L. The reference range was not used to interpret this result as normal/abnormal . GRAN MAT (NEUT) % 71.0 % (test code = 770-8) IMM GRAN % (test code 0.40 % = 2235859979) LYMPH % (test code = 21.0 % 736-9) MONO % (test code = 5.8 % 5905-5) EOS % (test code = 1.3 % 713-8) BASO % (test code = 0.5 % 706-2) GRAN MAT x10^3(ANC) 7.54 10*3/uL 1.88-7.09 H (test code = 3569560880) IMM GRAN x10^3 (test 0.04 10*3/uL 0.00-0.06 code = 1046965865) LYMPH x10^3 (test code 2.23 10*3/uL 1.32-3.29 = 731-0) MONO x10^3 (test code 0.62 10*3/uL 0.33-0.92 = 742-7) EOS x10^3 (test code = 0.14 10*3/uL 0.03-0.39 711-2) BASO x10^3 (test code 0.05 10*3/uL 0.01-0.07 = 704-7) Lab Interpretation Abnormal (test code = 24029-3) [facility] CampusPOCT [id number] 13:30:00 Test Item Value Reference Range Interpretation Comments POCT PREG (test code = 1605) Negative On board controls acceptable with C Yes Line (test code = 3574) POCT PREG LOT # (test code = 3575) [id number] POCT PREG TEST DATE (test 43829724 code = 3576) Lab Interpretation (test code = Normal 40756-7) [facility] CampusCT, BRAIN, WITHOUT [id number] 12:56:00 Unlisted Reason for Exam - Click Yes and Enter Reason Below->No [facility] 1980 Sex: FFINAL REPORT CT Head [...] MDReport Verified Date/Time: 10/15/2021 12:56:49 US OVARY [id number] 19:26:25 Low suspicion for ovarian torsion. Small [...] fibroid versus foci of endometrial andsubendometrial microcalcifications.[facility] CampusCT ABDOMEN PELVIS W [id number] 17:59:04 Normal appendix. No radiographic findings to [...] PELVISLiver: Hepatic dome is not fully within nkdfo-ay-pwmy. Mild focal fatty infiltration at the falciform [...] PELVISLiver: Hepatic dome is not fully within gxqmr-lh-jktz. Mild focal fattyinfiltration at the falciform ligament. [...] to explain patient's pain in the right lowerquadrant.[facility] CampusB[facility] Metabolic Panel (NA, K, CL, CO2, GLUCOSE, BUN, CREATININE, CA)2020-07-23 17:09:38 Test Item Value Reference Range Interpretation Comments NA (test code = 139 mmol/L 135-145 0505320142) K (test code = 3.9 mmol/L 3.5-5.0 9058761974) CL (test code = 102 mmol/L 98-108 9078726157) CO2 TOTAL (test code 29 mmol/L 23-31 = 1020303093) AGAP (test code = 2-16 7037076459) BUN (test code = 13 mg/dL 7-23 9926545560) GLUCOSE (test code = 98 mg/dL 70-110 4567275506) CREATININE (test code 0.76 mg/dL 0.50-1.04 = 0867140725) CALCIUM (test code = 9.5 mg/dL 8.6-10.6 9274425548) eGFR (test code = mL/min/1.73m2 5179082550) JOSH (test code = JOSH) Association of [...] urine or abnormalities in imaging tests). [facility] CampusHepatic Function Panel (ALB, T.PRO, BILI T, BU/BC, ALT, AST, ALK PHOS)2020-07-23 17:09:38 Test Item Value Reference Range Interpretation Comments TOTAL BILI (test code = 8761262250) 0.4 mg/dL 0.1-1.1 BILI UNCON (test code = 5308818226) 0.2 mg/dL 0.1-1.1 BILI CONJ (test code = 1043373236) 0.0 mg/dL 0.0-0.3 T PROTEIN (test code = 4198653374) 6.9 g/dL 6.3-8.2 ALBUMIN (test code = 3208531870) 4.3 g/dL 3.5-5.0 ALK PHOS (test code = 9500638662) 113 U/L 34-122 ALTv (test code = 1742-6) 13 U/L 5-35 AST(SGOT) (test code = 5326859685) 29 U/L 13-40 Lab Interpretation (test code = Normal 42731-6) [facility] CampusUrinalysis2021-04-12 17:03:52 Test Item Value Reference Range Interpretation Comments APPEARANCE (test code = Clear Clear 1997197339) COLOR (test code = Straw Yellow A 5011805189) PH (test code = 4.8-8.0 1772448286) SP GRAVITY (test code = 1.003-1.030 4444434551) GLU U QUAL (test code = Normal Normal 7001878649) BLOOD (test code = Negative Negative 3676032868) KETONES (test code = Negative Negative 0769124718) PROTEIN (test code = Negative Negative 2887-8) UROBILIN (test code = Normal Normal 9048353270) BILIRUBIN (test code = Negative Negative 1881451415) NITRITE (test code = Negative Negative 6193689712) LEUK ROXANE (test code = 25/uL Negative A 5858534565) RBC/HPF (test code = See_Comment [Autom ated message] 4567754775) The system [employer] generated this result transmitted ref erence range: 0 - 3 HP F. The reference range was not used to int erpret this result as normal/abnormal . WBC/HPF (test code = See_Comment [Autom ated message] 5371868776) The system [employer] generated this result transmitted ref erence range: 0 - 5 HP F. The reference range was not used to int erpret this result as normal/abnormal . BACTERIA (test code = Few Negative A 4736589580) SQ EPITH (test code = HPF 5352864936) Lab Interpretation (test Abnormal code = 59918-1) [facility] with Tiaujsvqvfyc6395-41-35 16:55:13 Test Item Value Reference Range Interpretation Comments WBC (test code = See_Comment H [Automated 4790-2) message] The sy stem which generated this result transmitted reference range : 4.30 - 11.10 10*3/?L. The reference range was not used to interpret this result as normal/abnormal . RBC (test code = See_Comment [Automated 197-8) message] The sy stem which generated this [...] RDW-SD (test code = 42.4 fL 39.0-49.9 64200-7) RDW-CV (test code = 12.9 % 12.0-15.5 788-0) PLT (test code = See_Comment [Automated 777-3) message] The sy stem which generated this result transmitted reference range : 166 - 358 10*3/ ?L. The reference r susan was not used to interpret this result as normal/abnormal . MPV (test code = 11.5 fL 9.5-12.9 96329-4) NRBC/100 WBC (test See_Comment [Automat ed code = 6456841313) message] The system which generated this result transmitted reference range : 0.0 - 10.0 /100 WBCs. The refer ence range was not u sed to interpret th is result as normal/abnormal . NRBC x10^3 (test code <0.01 See_Comment [Auto mated = 5461790839) message] The s ystem which generated this result transmitted reference range : 10*3/?L. The reference range was not used to interpret this result as normal/abnormal . GRAN MAT (NEUT) % 65.4 % (test code = 770-8) IMM GRAN % (test code 0.40 % = 5671330238) LYMPH % (test code = 24.9 % 736-9) MONO % (test code = 7.7 % 5905-5) EOS % (test code = 1.1 % 713-8) BASO % (test code = 0.5 % 706-2) GRAN MAT x10^3(ANC) 7.44 10*3/uL 1.88-7.09 H (test code = 2685657869) IMM GRAN x10^3 (test 0.05 10*3/uL 0.00-0.06 code = 0264384386) LYMPH x10^3 (test code 2.83 10*3/uL 1.32-3.29 = 731-0) MONO x10^3 (test code 0.88 10*3/uL 0.33-0.92 = 742-7) EOS x10^3 (test code = 0.12 10*3/uL 0.03-0.39 711-2) BASO x10^3 (test code 0.06 10*3/uL 0.01-0.07 = 704-7) Lab Interpretation Abnormal (test code = 74049-5) [facility] CampusPOCT [id number] 16:48:00 Test Item Value Reference Range Interpretation Comments POCT PREG (test code = 1605) negative On board controls acceptable with C present Line (test code = 3574) Lab Interpretation (test code = Normal 10868-4) [facility] CampusCT Head W/O [id number] 19:42:08 No acute intracranial abnormality. CT HEAD [...] paranasal sinuses and mastoidair cells are clear. [facility], Radiant ResultsInft User - 04/27/2020 1:43 PM [...] mastoidair cells are clear.IMPRESSIONNo acute intracranial abnormality.[facility] CampusTroponin I 2020-04-27 19:09:00 Test Item Value Reference Range Interpretation Comments TROPONIN I (test <0.012 See_Comment [Automated code = 7942301286) message] The system which generated this result [...] ? Lab Interpretation Normal (test code = 90666-0) [facility] CampusBasi Metabolic Panel (NA, K, CL, CO2, GLUCOSE, BUN, CREATININE, CA)2020-04-27 18:58:00 Test Item Value Reference Range Interpretation Comments NA (test code = 139 mmol/L 135-145 6309405596) K (test code = 4.1 mmol/L 3.5-5 2746902159) CL (test code = 98 mmol/L 98-108 2859826693) CO2 TOTAL (test code = 32 mmol/L 23-31 H 5703268278) AGAP (test code = 2-16 3499416889) BUN (test code = 11 mg/dL 7-23 1892071719) GLUCOSE (test code = 86 mg/dL 70-110 4133665435) CREATININE (test code = 0.78 mg/dL 0.5-1.04 5496575067) CALCIUM (test code = 10.2 mg/dL 8.6-10.6 7816123289) eGFR Calculation mL/min/1.73m2 (Non-) (test code = 6353280862) eGFR Calculation mL/min/1.73m2 () (test code = 7290908939) JOSH (test code = JOSH) Association of [...] tests). Lab Interpretation Abnormal (test code = 58156-1) [facility] with [id number] 18:54:00 Test Item Value Reference Range Interpretation Comments WBC (test code = See_Comment [Automated 9515-2) message] The sy stem which generated this result transmitted reference range : 4.30 - 11.10 10*3/?L. The reference range was not used to interpret this result as normal/abnormal . RBC (test code = See_Comment [Automated 819-8) message] The sy stem which generated this [...] RDW-SD (test code = 42.5 fL 39-49.9 32889-0) RDW-CV (test code = 12.8 % 12-15.5 788-0) PLT (test code = See_Comment [Automated 777-3) message] The sy stem which generated this result transmitted reference range : 166 - 358 10*3/ ?L. The reference r susan was not used to interpret this result as normal/abnormal . MPV (test code = 11.9 fL 9.5-12.9 55608-5) NRBC/100 WBC (test See_Comment [Automat ed code = 9444874399) message] The system which generated this result transmitted reference range : 0.0 - 10.0 /100 WBCs. The refer ence range was not u sed to interpret th is result as normal/abnormal . NRBC x10^3 (test code <0.01 See_Comment [Auto mated = 4189258803) message] The s ystem which generated this result transmitted reference range : 10*3/?L. The reference range was not used to interpret this result as normal/abnormal . GRAN MAT (NEUT) % 62.6 % (test code = 770-8) IMM GRAN % (test code 0.20 % = 2682855580) LYMPH % (test code = 26.7 % 736-9) MONO % (test code = 9.0 % 5905-5) EOS % (test code = 1.1 % 713-8) BASO % (test code = 0.4 % 706-2) GRAN MAT x10^3(ANC) 5.07 10*3/uL 1.88-7.09 (test code = 3391434271) IMM GRAN x10^3 (test <0.03 0-0.06 code = 8887519904) LYMPH x10^3 (test code 2.16 10*3/uL 1.32-3.29 = 731-0) MONO x10^3 (test code 0.73 10*3/uL 0.33-0.92 = 742-7) EOS x10^3 (test code = 0.09 10*3/uL 0.03-0.39 711-2) BASO x10^3 (test code 0.03 10*3/uL 0.01-0.07 = 704-7) Lab Interpretation Abnormal (test code = 73037-4) [facility] [id number] 11:05:00 Test Item Value Reference Range Interpretation Comments TROPONIN I (test <0.012 See_Comment [Automated code = 7727311834) message] The system which generated this result [...] ? Lab Interpretation Normal (test code = 83210-4) [facility]Basi Metabolic Panel (NA, K, CL, CO2, GLUCOSE, BUN, CREATININE, CA)2020-02-08 10:55:00 Test Item Value Reference Range Interpretation Comments NA (test code = 138 mmol/L 135-145 6824214832) K (test code = 4.1 mmol/L 3.5-5 0177924694) CL (test code = 104 mmol/L 98-108 9623607119) CO2 TOTAL (test code = 26 mmol/L 23-31 8999953117) AGAP (test code = 2-16 2368858746) BUN (test code = 14 mg/dL 7-23 0216350921) GLUCOSE (test code = 94 mg/dL 70-110 9433303399) CREATININE (test code 0.91 mg/dL 0.5-1.04 = 9057505288) CALCIUM (test code = 9.0 mg/dL 8.6-10.6 9365954671) eGFR Calculation mL/min/1.73m2 (Non-) (test code = 2187429322) eGFR Calculation mL/min/1.73m2 () (test code = 9937137979) JOSH (test code = JOSH) Association of [...] imaging tests). [facility] with Tqltsiuxnaau8037-90-80 10:26:00 Test Item Value Reference Range Interpretation Comments WBC (test code = See_Comment [Automated message] 6690-2) The system [employer] generated this result transmitted ref erence range: 4.30 - 1 1.10 10*3/?L. The re ference range was not u sed to interpret this result as normal/abnor mal. RBC (test code = See_Comment [Automated message] 329-8) The system [employer] generated this result transmitted ref erence range: [...] RDW-SD (test code 45.3 fL 39-49.9 = 71338-4) RDW-CV (test code 13.4 % 12-15.5 = 788-0) PLT (test code = See_Comment [Automated message] 907-3) The system [employer] generated this result transmitted ref erence range: 166 - 35 8 10*3/?L. The re ference range was not u sed to interpret this result as normal/abnor mal. MPV (test code = 11.9 fL 9.5-12.9 39315-8) NRBC/100 WBC (test See_Comment [Automat ed message] code = 8156228809) The [employer] which generated this result transmitted ref erence range: 0.0 - 10 .0 /100 WBCs. The refer ence range was not u sed to interpret this result as normal/abnor mal. NRBC x10^3 (test <0.01 See_Comment [Automated message] code = 2476953329) The [employer] which generated this result transmitted ref erence range: 10*3/?L. The reference range was not used to interpr et this result as normal/abnormal . GRAN MAT (NEUT) % 63.9 % (test code = 770-8) IMM GRAN % (test 0.40 % code = 8263503782) LYMPH % (test code 26.9 % = 736-9) MONO % (test code 6.7 % = 5905-5) EOS % (test code = 1.6 % 713-8) BASO % (test code 0.5 % = 706-2) GRAN MAT 4.94 10*3/uL 1.88-7.09 x10^3(ANC) (test code = 4996493576) IMM GRAN x10^3 0.03 10*3/uL 0-0.06 (test code = 9997945112) LYMPH x10^3 (test 2.08 10*3/uL 1.32-3.29 code = 731-0) MONO x10^3 (test 0.52 10*3/uL 0.33-0.92 code = 742-7) EOS x10^3 (test 0.12 10*3/uL 0.03-0.39 code = 711-2) BASO x10^3 (test 0.04 10*3/uL 0.01-0.07 code = 704-7) [facility] [id number] 05:34:00 Test Item Value Reference Range Interpretation Comments TROPONIN I (test <0.012 See_Comment [Automated code = 1702221852) message] The system which generated this result [...] ? Lab Interpretation Normal (test code = 14103-9) [facility] CampusThyroid Stimulating Hormone (TSH)2020-02-08 02:02:00 Test Item Value Reference Range Interpretation Comments TSH (test code = See_Comment [Automated message] 6230060026) The system [employer] generated this result transmitted ref erence range: 0.45 - 4 .70 mIU/L. The refe rence range was not u sed to interpret this result as normal/abnor mal. Lab Interpretation (test Normal code = 49381-4) [facility] CampusMagnesium [id number] 01:31:00 Test Item Value Reference Range Interpretation Comments MAGNESIUM (test code = 6336672504) 2.1 mg/dL 1.7-2.4 Lab Interpretation (test code = Normal 11577-1) [facility] CampusLipid Panel (Total Cholesterol, Triglycerides, HDL)2020-02-08 01:31:00 Test Item Value Reference Range Interpretation Comments CHOL (test code = 220 mg/dL 120-200 H 7449123419) HDL (test code = 44 mg/dL >50 L 9311152496) HDLC RATIO (test code = See_Comment H [Au tomated message] 7533423105) The system [employer] generated this result transmit alistair reference range : <=4.5. The refe rence range was not u sed to interpret th is result as normal/abnormal . TRIG (test code = 179 mg/dL 30-170 H [id number]) LDL CHOL (test code = 140 mg/dL See_Comment [Auto mated message] 96310-4) The system [employer] generated this result transmit alistair reference range : <=160. The refe rence range was not u sed to interpret th is result as normal/abnormal . VLDL (test code = 36 mg/dL 5-60 [id number]) Lab Interpretation (test Abnormal code = 82862-4) [facility] NOW RAPID TESTING)2020-02-07 23:26:00 Test Item Value Reference Range Interpretation Comments SARS-CoV-2 Rapid ID NOW Not Detected Not Detected (test code = 32879-2) JOSH (test code = JOSH) ID NOW COVID-19 Assay is an isothermal nucleic acid amplification test intended for the qualitative detection of nucleic acid from SARS-CoV-2 viral RNA in nasopharyngeal ([employer]) specimens. It is used under Emergency Use [...] indicated. Lab Interpretation Normal (test code = 43076-9) [facility] CampusTROPOEDWARD [id number] 22:52:00 Test Item Value Reference Range Interpretation Comments TROPONIN I (test <0.012 See_Comment [Automated code = 3693199030) message] The system which generated this result [...] ? Lab Interpretation Normal (test code = 85041-0) [facility] CampusCT ABDOMEN PELVIS W [id number] 21:53:30CT Abdomen and Pelvis with intravenous contrast. [...] Unremarkable.CONCLUSION: No acute intra-abdominal or pelvic abnormalities detected.[facility] CHEST PULMONARY [id number] 21:48:38 No acute or chronic pulmonary embolus [...] segmental level. Preliminary Report Dictated by Resident: Regino Schofield, Radha Kamara MD., have reviewed this study and agree with theabove report.[facility] CampusUrinalysis2020-10-27 20:52:00 Test Item Value Reference Range Interpretation Comments APPEARANCE (test code = Clear Clear 3220597891) COLOR (test code = Straw Yellow A 6256154750) PH (test code = 4.8-8.0 1172452980) SP GRAVITY (test code = 1.003-1.030 4740041325) GLU U QUAL (test code = Normal Normal 3743122083) BLOOD (test code = Negative Negative 4018308489) KETONES (test code = Negative Negative 9323065513) PROTEIN (test code = Negative Negative 2887-8) UROBILIN (test code = Normal Normal 6823287373) BILIRUBIN (test code = Negative Negative 3592379762) NITRITE (test code = Negative Negative 0791253844) LEUK ROXANE (test code = Negative Negative 9809928912) RBC/HPF (test code = See_Comment [Autom ated message] 5613851713) The system [employer] generated this result transmitted ref erence range: 0 - 3 HP F. The reference range was not used to int erpret this result as normal/abnormal . WBC/HPF (test code = See_Comment [Autom ated message] 7551307341) The system [employer] generated this result transmitted ref erence range: 0 - 5 HP F. The reference range was not used to int erpret this result as normal/abnormal . BACTERIA (test code = Few Negative A 6474035692) MUCOUS (test code = Slight Negative LPF A 6964298519) SQ EPITH (test code = HPF 9078827302) Lab Interpretation (test Abnormal code = 60812-4) [facility] 1 [id number] 20:38:53HISTORY: Chest pain. TECHNIQUE: Portable AP erect view of the chest is obtained. No prior cheststudyavailable for comparison. FINDINGS: No acute pneumonia. No pneumothorax or pleural effusion orpulmonary congestion detected. Cardiac size is within normal limits. CONCLUSIONS: No signs of acute cardiopulmonary disease.[facility], Radiant Results Inft User - 02/07/2020 3:40 PM CDTHISTORY: Chest pain.TECHNIQUE: Portable AP erect view of the chest is obtained. No prior cheststudy available for comparison.FINDINGS: No acute pneumonia. No pneumothorax or pleural effusion orpulmonary congestion detected. Cardiac size is within normal limits. CONCLUSIONS: No signs of acute cardiopulmonary disease. [facility] [id number] 20:36:00 Test Item Value Reference Range Interpretation Comments TROPONIN I (test <0.012 See_Comment [Automated code = 5181411378) message] The system which generated this result [...] ? Lab Interpretation Normal (test code = 61728-5) [facility] CampusN-TERMINAL [id number] 20:33:00 Test Item Value Reference Range Interpretation Comments NT-proBNP (test code 53 pg/mL See_Comment [Autom ated = 5425573858) message] The system which generated this result transmitted reference range : <=125. The reference range was not used to interpret this result as normal/abnormal . JOSH (test code = JOSH) Biotin has been reported to cause a negative bias, interpret results relative to patient's use of biotin. Lab Interpretation Normal (test code = 37174-4) [facility] CampusaPTT2020-10-27 20:29:00 Test Item Value Reference Range Interpretation Comments APTT Patient (test See_Comment [Automat ed code = 3173-2) message] The system which generated this result transmitted reference range : 23 - 38 Seconds . The reference range was not used to interpr et this result as normal/abnormal . JOSH (test code = JOSH) The [facility] patient population mean normal value for aPTT is 30 seconds. Lab Interpretation Normal (test code = 95952-7) [facility] CampusProthrombin Time (PT) / [id number] 20:27:00 Test Item Value Reference Range Interpretation [...] tions. Lab Interpretation (test Normal code = 41840-4) [facility] Metabolic Panel (NA, K, CL, CO2, GLUCOSE, BUN, CREATININE, CA)2020-02-07 20:24:00 Test Item Value Reference Range Interpretation Comments NA (test code = 138 mmol/L 135-145 3082519475) K (test code = 3.9 mmol/L 3.5-5 6913801518) CL (test code = 98 mmol/L 98-108 7050192544) CO2 TOTAL (test code = 32 mmol/L 23-31 H 1200181229) AGAP (test code = 2-16 7702941038) BUN (test code = 13 mg/dL 7-23 2055984610) GLUCOSE (test code = 103 mg/dL 70-110 2334469520) CREATININE (test code = 1.33 mg/dL 0.5-1.04 H 5372255171) CALCIUM (test code = 10.0 mg/dL 8.6-10.6 3374915862) eGFR Calculation mL/min/1.73m2 (Non-) (test code = 4411528239) eGFR Calculation mL/min/1.73m2 () (test code = 6108359021) JOSH (test code = JOSH) Association of [...] tests). Lab Interpretation Abnormal (test code = 76718-9) [facility] CampusHepatic Function Panel (ALB, T.PRO, BILI T, BU/BC, ALT, AST, ALK PHOS)2020-02-07 20:24:00 Test Item Value Reference Range Interpretation Comments TOTAL BILI (test code = 2993381473) 0.4 mg/dL 0.1-1.1 BILI UNCON (test code = 5141596289) 0.3 mg/dL 0.1-1.1 BILI CONJ (test code = 8745481072) 0.0 mg/dL 0-0.3 T PROTEIN (test code = 1847895056) 7.4 g/dL 6.3-8.2 ALBUMIN (test code = 7944684194) 4.4 g/dL 3.5-5 ALK PHOS (test code = 7873532677) 99 U/L 34-122 ALTv (test code = 1742-6) 16 U/L 5-35 AST(SGOT) (test code = 0494263679) 19 U/L 13-40 Lab Interpretation (test code = Normal 94982-3) [facility] CampusLipase [id number] 20:24:00 Test Item Value Reference Range Interpretation Comments LIPASE (test code = 4896820542) 393 U/L 0-220 H Lab Interpretation (test code = Abnormal 48075-3) [facility] CampusCBC with Xyvwiagdlqpg1953-25-41 20:19:00 Test Item Value Reference Range Interpretation Comments WBC (test code = See_Comment [Automated message] 6690-2) The system [employer] generated this result transmitted ref erence range: 4.30 - 1 1.10 10*3/?L. The re ference range was not u sed to interpret this result as normal/abnor mal. RBC (test code = See_Comment [Automated message] 179-8) The system [employer] generated this result transmitted ref erence range: [...] RDW-SD (test code 43.5 fL 39-49.9 = 76959-7) RDW-CV (test code 13.2 % 12-15.5 = 788-0) PLT (test code = See_Comment [Automated message] 777-3) The system [employer] generated this result transmitted ref erence range: 166 - 35 8 10*3/?L. The re ference range was not u sed to interpret this result as normal/abnor mal. MPV (test code = 12.1 fL 9.5-12.9 74980-6) NRBC/100 WBC (test See_Comment [Automat ed message] code = 2792334360) The syste m which generated this result transmitted ref erence range: 0.0 - 10 .0 /100 WBCs. The refer ence range was not u sed to interpret this result as normal/abnor mal. NRBC x10^3 (test <0.01 See_Comment [Automated message] code = 1009725978) The syste m which generated this result transmitted ref erence range: 10*3/?L. The reference range was not used to interpr et this result as normal/abnormal . GRAN MAT (NEUT) % 62.9 % (test code = 770-8) IMM GRAN % (test 0.50 % code = 2783905671) LYMPH % (test code 26.9 % = 736-9) MONO % (test code 7.8 % = 5905-5) EOS % (test code = 1.2 % 713-8) BASO % (test code 0.7 % = 706-2) GRAN MAT 6.08 10*3/uL 1.88-7.09 x10^3(ANC) (test code = 6820889973) IMM GRAN x10^3 0.05 10*3/uL 0-0.06 (test code = 7459008745) LYMPH x10^3 (test 2.61 10*3/uL 1.32-3.29 code = 731-0) MONO x10^3 (test 0.76 10*3/uL 0.33-0.92 code = 742-7) EOS x10^3 (test 0.12 10*3/uL 0.03-0.39 code = 711-2) BASO x10^3 (test 0.07 10*3/uL 0.01-0.07 code = 704-7) [facility] CampusPOOK [id number] 20:03:00 Test Item Value Reference Range Interpretation Comments POCT PREG (test code = 1605) Negative On board controls acceptable with Present C Line (test code = 3574) POCT PREG LOT # (test code = 3575) [id number] POCT PREG TEST DATE (test 07/11/2021 code = 3576) Lab Interpretation (test code = Normal 29612-7) [facility] ABDOMEN PELVIS W [id number] 00:58:03Impression: 1. Bilateral pyelonephritis.2. Mild right renal [...] cortical scarring.3. Mild hepatomegaly.RL: 460End of Report UnSouth [facility]burgPOCT TEST 2020-01-24 23:22:00 Test Item Value Reference Range Interpretation Comments POCT PREG (test code = 1605) negative On board controls acceptable with present C Line (test code = 3574) POCT PREG LOT # (test code = 3575) [id number] POCT PREG TEST DATE (test 2020-11-10 code = 3576) Lab Interpretation (test code = Normal 62024-5) [facility] CampusURINALYSIS2020-10-13 23:21:00 Test Item Value Reference Range Interpretation Comments APPEARANCE (test code = Hazy Clear A 1338002378) COLOR (test code = Yellow Yellow 5202621291) PH (test code = 4.8-8.0 7072943407) SP GRAVITY (test code = 1.003-1.030 8974131526) GLU U QUAL (test code = Normal Normal 7428218083) BLOOD (test code = Negative Negative 8699982247) KETONES (test code = Negative Negative 7901035107) PROTEIN (test code = Negative Negative 2887-8) UROBILIN (test code = Normal Normal 1305203529) BILIRUBIN (test code = Negative Negative 4203141273) NITRITE (test code = Negative Negative 5502614197) LEUK ROXANE (test code = 250/uL Negative A 9847295962) RBC/HPF (test code = See_Comment [Autom ated message] 3962118896) The system [employer] generated this result transmitted ref erence range: 0 - 3 HP F. The reference range was not used to int erpret this result as normal/abnormal . WBC/HPF (test code = See_Comment H [Autom ated message] 1541908370) The system [employer] generated this result transmitted ref erence range: 0 - 5 HP F. The reference range was not used to int erpret this result as normal/abnormal . BACTERIA (test code = Moderate Negative A 5641795983) MUCOUS (test code = Slight Negative LPF A 7369223465) SQ EPITH (test code = HPF 0783446616) Lab Interpretation (test Abnormal code = 11018-8) [facility] CampusCOMP. METABOLIC PANEL (86100)2020-01-24 23:01:00 Test Item Value Reference Range Interpretation Comments NA (test code = 139 mmol/L 135-145 8614499143) K (test code = 4.0 mmol/L 3.5-5 5058971283) CL (test code = 98 mmol/L 98-108 6722435850) CO2 TOTAL (test code = 30 mmol/L - 3099306151) AGAP (test code = 2-16 7311075747) BUN (test code = 13 mg/dL 7-23 5860518144) GLUCOSE (test code = 105 mg/dL 70-110 3454114132) CREATININE (test code 1.00 mg/dL 0.5-1.04 = 0306617141) TOTAL BILI (test code 0.5 mg/dL 0.1-1.1 = 2043510009) CALCIUM (test code = 10.4 mg/dL 8.6-10.6 9999796981) T PROTEIN (test code = 7.7 g/dL 6.3-8.2 2640862779) ALBUMIN (test code = 4.5 g/dL 3.5-5 7335360149) ALK PHOS (test code = 118 U/L 34-122 3307089920) ALTv (test code = 30 U/L 5-35 2-6) AST(SGOT) (test code = 22 U/L 13-40 4888328521) eGFR Calculation mL/min/1.73m2 (Non-) (test code = 6529190524) eGFR Calculation mL/min/1.73m2 () (test code = 0418278258) JOSH (test code = JOSH) Association of [...] urine or abnormalities in imaging tests). [facility] CampusLIPASE2020-10-13 23:00:00 Test Item Value Reference Range Interpretation Comments LIPASE (test code = 4777594452) 125 U/L 0-220 Lab Interpretation (test code = Normal 59084-2) [facility] CampusCB WITH [id number] 22:55:00 Test Item Value Reference Range Interpretation Comments WBC (test code = See_Comment [Automated message] 5590-2) The system [employer] generated this result transmitted ref erence range: 4.30 - 1 1.10 10*3/?L. The re ference range was not u sed to interpret this result as normal/abnor mal. RBC (test code = See_Comment [Automated message] 419-8) The system [employer] generated this result transmitted ref erence range: [...] RDW-SD (test code 43.5 fL 39-49.9 = 87813-1) RDW-CV (test code 13.3 % 12-15.5 = 788-0) PLT (test code = See_Comment [Automated message] 497-3) The system [employer] generated this result transmitted ref erence range: 166 - 35 8 10*3/?L. The re ference range was not u sed to interpret this result as normal/abnor mal. MPV (test code = 11.6 fL 9.5-12.9 67533-7) NRBC/100 WBC (test See_Comment [Automat ed message] code = 3571112607) The syste m which generated this result transmitted ref erence range: 0.0 - 10 .0 /100 WBCs. The refer ence range was not u sed to interpret this result as normal/abnor mal. NRBC x10^3 (test <0.01 See_Comment [Automated message] code = 0342109838) The syste m which generated this result transmitted ref erence range: 10*3/?L. The reference range was not used to interpr et this result as normal/abnormal . GRAN MAT (NEUT) % 59.7 % (test code = 770-8) IMM GRAN % (test 0.40 % code = 3503512465) LYMPH % (test code 29.5 % = 736-9) MONO % (test code 8.2 % = 5905-5) EOS % (test code = 1.7 % 713-8) BASO % (test code 0.5 % = 706-2) GRAN MAT 5.93 10*3/uL 1.88-7.09 x10^3(ANC) (test code = 5375967042) IMM GRAN x10^3 0.04 10*3/uL 0-0.06 (test code = 2303496361) LYMPH x10^3 (test 2.93 10*3/uL 1.32-3.29 code = 731-0) MONO x10^3 (test 0.81 10*3/uL 0.33-0.92 code = 742-7) EOS x10^3 (test 0.17 10*3/uL 0.03-0.39 code = 711-2) BASO x10^3 (test 0.05 10*3/uL 0.01-0.07 code = 704-7) [facility] CampusCT ABDOMEN PELVIS W [id number] 19:13:50CT Abdomen and Pelvis with intravenous contrast. [...] intrapelvic abnormalities detected.Please see additional comments above. [facility], Radiant Results Inft User - 06/02/2019 [...] intrapelvic abnormalities detected.Please see additional comments above.[facility] Mexwcurrzg1608-30-05 18:13:00 Test Item Value Reference Range Interpretation Comments APPEARANCE (test code = Clear Clear 1390833335) COLOR (test code = Yellow Yellow 8250546956) PH (test code = 4.8-8.0 6033423455) SP GRAVITY (test code = 1.003-1.030 1470358656) GLU U QUAL (test code = Normal Normal 5151914952) BLOOD (test code = Negative Negative 7877655898) KETONES (test code = Negative Negative 1805106697) PROTEIN (test code = Negative Negative 2887-8) UROBILIN (test code = Normal Normal 9380959401) BILIRUBIN (test code = Negative Negative 7791544326) NITRITE (test code = Negative Negative 8786442046) LEUK ROXANE (test code = Negative Negative 0524553192) RBC/HPF (test code = See_Comment [Autom ated message] 6276453290) The system [employer] generated this result transmitted ref erence range: 0 - 3 HP F. The reference range was not used to int erpret this result as normal/abnormal . WBC/HPF (test code = See_Comment [Autom ated message] 8232542329) The system [employer] generated this result transmitted ref erence range: 0 - 5 HP F. The reference range was not used to int erpret this result as normal/abnormal . BACTERIA (test code = Negative Negative 0049587835) MUCOUS (test code = Slight Negative LPF A 3991620468) SQ EPITH (test code = HPF 5523050546) Lab Interpretation (test Abnormal code = 53952-9) [facility]. METABOLIC PANEL (10254)2019-06-02 18:09:00 Test Item Value Reference Range Interpretation Comments NA (test code = 138 mmol/L 135-145 5152839291) K (test code = 4.2 mmol/L 3.5-5 4079630640) CL (test code = 102 mmol/L 98-108 9018880276) CO2 TOTAL (test code = 27 mmol/L 23-31 5651023864) AGAP (test code = 2-16 7308235006) BUN (test code = 12 mg/dL 7-23 8250077195) GLUCOSE (test code = 93 mg/dL 70-110 8864176535) CREATININE (test code 0.73 mg/dL 0.5-1.04 = 0254613557) TOTAL BILI (test code 0.4 mg/dL 0.1-1.1 = 7757608562) CALCIUM (test code = 9.5 mg/dL 8.6-10.6 1138654823) T PROTEIN (test code = 7.3 g/dL 6.3-8.2 9408294011) ALBUMIN (test code = 4.6 g/dL 3.5-5 5672577940) ALK PHOS (test code = 84 U/L 34-122 1300883889) ALTv (test code = 12 U/L 5-35 1742-6) AST(SGOT) (test code = 21 U/L 13-40 6987829558) eGFR Calculation mL/min/1.73m2 (Non-) (test code = 4755511340) eGFR Calculation mL/min/1.73m2 () (test code = 8680731883) JOSH (test code = JOSH) Association of [...] urine or abnormalities in imaging tests). [facility] CampusLipase Poxpk8783-46-08 18:09:00 Test Item Value Reference Range Interpretation Comments LIPASE (test code = 8723522788) 108 U/L 0-220 Lab Interpretation (test code = Normal 72306-6) [facility] CampusCBC WITH [id number] 18:01:00 Test Item Value Reference Range Interpretation Comments WBC (test code = See_Comment [Automated message] 6690-2) The system [employer] generated this result transmitted ref erence range: 4.30 - 1 1.10 10*3/?L. The re ference range was not u sed to interpret this result as normal/abnor mal. RBC (test code = See_Comment [Automated message] 789-8) The system [employer] generated this result transmitted ref erence range: [...] RDW-SD (test code 46.2 fL 39-49.9 = 48652-9) RDW-CV (test code 14.1 % 12-15.5 = 788-0) PLT (test code = See_Comment [Automated message] 707-3) The system [employer] generated this result transmitted ref erence range: 166 - 35 8 10*3/?L. The re ference range was not u sed to interpret this result as normal/abnor mal. MPV (test code = 10.8 fL 9.5-12.9 36022-2) NRBC/100 WBC (test See_Comment [Automat ed message] code = 9984670379) The syste m which generated this result transmitted ref erence range: 0.0 - 10 .0 /100 WBCs. The refer ence range was not u sed to interpret this result as normal/abnor mal. NRBC x10^3 (test <0.01 See_Comment [Automated message] code = 8076341114) The syste m which generated this result transmitted ref erence range: 10*3/?L. The reference range was not used to interpr et this result as normal/abnormal . GRAN MAT (NEUT) % 69.9 % (test code = 770-8) IMM GRAN % (test 0.70 % code = 1555853235) LYMPH % (test code 21.2 % = 736-9) MONO % (test code 6.2 % = 5905-5) EOS % (test code = 1.4 % 713-8) BASO % (test code 0.6 % = 706-2) GRAN MAT 6.08 10*3/uL 1.88-7.09 x10^3(ANC) (test code = 3771948732) IMM GRAN x10^3 0.06 10*3/uL 0-0.06 (test code = 1210955826) LYMPH x10^3 (test 1.84 10*3/uL 1.32-3.29 code = 731-0) MONO x10^3 (test 0.54 10*3/uL 0.33-0.92 code = 742-7) EOS x10^3 (test 0.12 10*3/uL 0.03-0.39 code = 711-2) BASO x10^3 (test 0.05 10*3/uL 0.01-0.07 code = 704-7) [facility] CampusPOCT Test, [id number] 17:48:00 Test Item Value Reference Range Interpretation Comments POCT PREG (test code = 1605) negative POCT PREG LOT # (test code = 3575) [id number] POCT PREG TEST DATE (test 11/10/2020 code = 3576) Lab Interpretation (test code = Normal 89682-2) [facility]- XR CHEST 1 [id number] 19:54:00 Name: VIC REEVES [facility] : 1980 Age/S: 38 / F [address] Unit #: [id number] Loc: [place] [address] Phys: Génesis King MD Acct: [id number] Dis Date: Status: ADM IN PHONE #: [phone] Exam Date: 02/22/20191940 FAX #: Reason: SOB EXAMS: CPT: [id number] XR CHEST 1 L41171 Fluoro Time: DAP (Gy m2): Air Kerma [...] MD PAGE 1 Signed Report Name: VIC REEVES [place] : 1980 Age/S: 38 / F [address] #: [id number] Loc: [place] [address] Phys: Génesis King MD Acct: [id number] Dis Date: Status: ADM IN PHONE #: [phone] Exam Date: 02/22/2019 1941 FAX #: Reason: SOB EXAMS: CPT: [id number] XR CHEST 1 V 00826 Fluoro Time: DAP (Gy m2): Air Kerma (mGy): (Continued) Technologist: Jordan Chacon, RT(R)(CT) Trnscb Date/Time: 02/22/2019 (1953) [email or web address] Orig Print D/T: S: 02/22/2019 (1956) PAGE 2 Signed Report- US RETRO [id number] 15:32:00 Name: VIC REEVES [place] : 1980 Age/S: 38 / F [address] Unit #: [id number] Loc: [place] [address] Phys: Génesis King MD Acct: [id number] Dis Date: Status: ADM IN PHONE #: [phone] Exam Date: 02/22/2019 1200 FAX #: Reason: back pain EXAMS: CPT: [id number] US RETRO LTD 10867 EXAMINATION: - US RETRO LTD. LOCATION: T18. [...] bladder is distended. Bilateral ureteral jets noted. IMPRESSION:No hydronephrosis. Possible 0.9 x 2.0 cm hypoechoic/cystic appearing region in right upper pole renal pelvis, nonspecific. Consider short- term follow-up given history of pyelonephritis and recent CT findings. at 1532 Reportedand signed by: Thuan Ricardo M.D. CC: Jordan Jean MD; Cony Partida MD; Génesis King MD Technologist: Nina Andrews, RT(R),RDMS(AB) Trnscb Date/Time: 02/22/2019 (1532) BarbieANS4 PAGE 1 SignedReport Name: VIC REEVES [place] : 1980 Age/S: 38 / F [address] Unit #: [id number] Loc: [place] [address] Phys: Génesis King MD Acct: [id number] Dis Date: Status: ADMIN PHONE #: [phone] Exam Date: 02/22/2019 1200 FAX #: Reason: back pain EXAMS: CPT: [id number] US RETRO LTD 36335 (Continued) Orig Print D/T: S: 02/22/2019 (1535) Probe: PAGE 2 Signed ReportCBC W/AUTO DIFF [...] MDIFF) CONSISTA NT WITH AUTO DIFFERENTIAL. RBC [id number] 12:09:00 Test Item Value Reference Range Interpretation Comments ANISOCYTOSIS (test code = 1+ NONE ANISO) MICROCYTOSIS (test code = 1+ ON SCAN NONE MICR) PLATELET ESTIMATE (test ADEQUATE THOUSAND ADEQUATE code = PLTEST) PLATELET MORPHOLOGY (test NORMAL code = PLTMORPH) CBC W/AUTO [id number] 12:08:00 Test Item Value Reference Range Interpretation [...] = NO DIFF/SCN CRITERIA MDIFF) CBC W/AUTO [id number] 12:08:00 Test Item Value Reference Range Interpretation [...] code = NO DIFF/SCN CRITERIA MDIFF) RBC [id number] 12:08:00 Test Item Value Reference Range Interpretation Comments ANISOCYTOSIS (test code = 1+ NONE ANISO) MICROCYTOSIS (test code = 1+ ON SCAN NONE MICR) PLATELET ESTIMATE (test ADEQUATE THOUSAND ADEQUATE code = PLTEST) PLATELET MORPHOLOGY (test NORMAL code = PLTMORPH) CBC W/AUTO [id number] 12:08:00 Test Item Value Reference Range Interpretation [...] = NO DIFF/SCN CRITERIA MDIFF) BASIC METABOLIC [id number] 07:07:00 Test Item Value Reference Range Interpretation [...] CA) 7.8 MG/DL 8.5-10.1 L CBC W/AUTO [id number] 06:58:00 Test Item Value Reference Range Interpretation [...] ng/mL are obtained. - CT ABD PELVIS [id number] 20:34:00 [place] : 1980 Age/S: 38 / F [address] Unit #: [id number] Loc: [place] [address] Phys: Cony Partida MD Acct: [id number] Dis Date: Status: ADM IN PHONE#: [phone] Exam Date: 02/19/20192024 FAX #: Reason: acute PN, possible ureteral stone EXAMS: CPT: [id number] CT ABD PELVIS W/CONT 12604 CT Abdomen and Pelvis with contrast. Location: [...] RT(R)(CT) CTDI: DLP: Trnscb Date/Time: 02/19/2019 (2033) Marian.[email or web address] Orig Print D/T: S: 02/19/2019 (2036) PAGE 1 Signed ReportUA RFLX MICR CULT IF [id number] 19:43:00 Test Item Value Reference Range Interpretation [...] culture: Flank PainUA RFLX MICR CULT IF [id number] 19:28:00 Test Item Value Reference Range Interpretation [...] 50,000 2ND & 3R D TRIMESTER LACTIC [id number] 18:52:00 Test Item Value Reference Range Interpretation Comments LACTIC ACID (test code = LACT) 0.7 mmol/L 0.4-2.0 N CBC W/AUTO [id number] 17:55:00 Test Item Value Reference Range Interpretation [...] MDIFF) CONSISTA NT WITH AUTO DIFFERENTIAL. RBC [id number] 17:55:00 Test Item Value Reference Range Interpretation Comments ANISOCYTOSIS (test code = ANISO) 1+ NONE CBC W/AUTO [id number] 17:54:00 Test Item Value Reference Range Interpretation [...] CONSISTA NT WITH AUTO DIFFERENTIAL. CBC W/AUTO [id number] 17:54:00 Test Item Value Reference Range Interpretation [...] CONSISTA NT WITH AUTO DIFFERENTIAL. BASIC METABOLIC [id number] 17:43:00 Test Item Value Reference Range Interpretation [...] Unit/L 84-246 N code = LDH) LACTIC [id number] 17:43:00 Test Item Value Reference Range Interpretation Comments LACTIC ACID (test code = LACT) 0.8 mmol/L 0.4-2.0 N BASIC METABOLIC [id number] 17:36:00 Test Item Value Reference Range Interpretation [...] code Unit/L 84-246 = LDH) CBC W/AUTO [id number] 17:35:00 Test Item Value Reference Range Interpretation [...] Notes Date/Time Note Provider Source 2019-02-23 09:00:00-00:00 [facility] ([facility]) Discharge Summary REPORT#:[id number] REPORT STATUS: Signed DATE:02/23/19 TIME:899 PATIENT: VIC REEVES UNIT #: [id number] ROOM/BED: [place] [address] : 80 AGE: 38 SEX: F ATTEND: Kushal Partida MD ADM AUTHOR: Génesis King MD * ALL edits or amendments must be made on the [employer]/computer document * General Information Date of admission: [...] Documented: Result Date Time Pulse Ox 96 11/13 0718 B/P 158/97 02/23 718 B/P Mean 117.4 02/23 718 O2 Delivery Room air 02/23 718 Temp 98.1 02/23 718 Pulse 60 02/23 718 Resp 18 02/23 718 O2 Flow Rate 2.531240 02/22 2014 24 hour I O ending [...] than 30 mins at 0905 RPT #: [id number] END OF REPORT 2019-02-22 22:45:00-00:00 [facility] ([facility] Urology Progress Note REPORT#:[id number] REPORT STATUS: Signed DATE:02/22/19 TIME:2244 PATIENT: VIC REEVES UNIT #: [id number] ROOM/BED: [place] [address] : 80 AGE: 38 SEX: F ATTEND: Kushal Partida MD ADM AUTHOR: Art Nguyen MD * ALL edits or amendments must be made on the [employer]/computer document * Subjective Chief Complaint: pyelonephritis Comments: having pain on right side, now bilateral flank no dysuria Objective Physical Exam VS/I O: Last Documented: Result Date Time O2 Delivery Nasal cannula 02/22 2014 O2 Flow Rate 2.132018 02/22 2014 Pulse Ox 100 02/22 1954 [...] on 02/11 06/01 at 2248 RPT #: [id number] END OF REPORT 2019-02-22 09:58:00-00:00 [facility] ([facility]) Hospitalist Progress Note REPORT#:[id number] REPORT STATUS: Signed DATE:02/22/19 TIME:09 PATIENT: VIC REEVES UNIT #: [id number] ROOM/BED: [place] [address] : 80 AGE: 38 SEX: F ATTEND: Kushal Partida MD ADM AUTHOR: Génesis King MD * ALL edits or amendments must be made on the [employer]/computer document * Subjective Chief Complaint: c/o L [...] 61 17 117/73 87.9 96 Room air 11/12 0339 99.3 69 18 118/77 90.8 94 [...] refill, normal range of motion, no edema 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 OBSTRUCTIVE UROPATHY with minimal dil atation of R ureter- report from [place] ER CT A/P WITHOUT CONTRAST possibly passed [...] spasm, add dilaudid at 1000 RPT #: [id number] END OF REPORT 2019-02-21 20:37:00-00:00 [facility] ([facility]) Urology Progress Note REPORT#:[id number] REPORT STATUS: Signed DATE:02/21/19 TIME:2036 PATIENT: VIC REEVES UNIT #: [id number] ROOM/BED: [facility] : 80 AGE: 38 SEX: F ATTEND: Kushal Partida MD ADM AUTHOR: Art Nguyen MD * ALL edits or amendments must be made on the [employer] document * Subjective Chief Complaint: pyelonephritis Comments: pain improving along with fevers eating well denies dysuria, hematuria Objective Physical Exam VS/I O: Last Documented: Result Date Time Pulse Ox 94 02/21 1901 B/P 122/79 02/21 1901 B/P Mean 93.1 02/21 1901 Temp 98.6 02/21 1901 Pulse 58 02/21 190 Resp 18 02/21 190 O2 Delivery Room air 02/21 1530 24 [...] on 02/11 05/01 at 2047 RPT #: [id number] END OF REPORT 2019-02-21 10:37:00-00:00 [facility] ([facility]) Hospitalist Progress Note REPORT#:[id number] REPORT STATUS: Signed DATE:02/21/19 TIME:1037 PATIENT: VIC REEVES UNIT #: [id number] ROOM/BED: [place] [address] : 80 AGE: 38 SEX: F ATTEND: Kushal Partida MD ADM AUTHOR: Génesis King MD * ALL edits or amendments must be made on the [employer]/computer document * Subjective Chief Complaint: R flank [...] F low FiO2 Mean Ox Delivery Rate 02/21 0731 98.6 65 16 118/80 92.6 95 Room air 02/21 0357 100.6 78 16 120/81 94.0 97 02/21 0038 99.1 73 16 116/79 91.5 96 02/20 210 74 16 110/72 85.0 99 02/20 2109 [...] refill, normal range of motion, no edema 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 OBSTRUCTIVE UROPATHY with minimal dil atation of R ureter- report from [place] ER CT A/P WITHOUT CONTRAST possibly passed [...] u p labs at 1039 RPT #: [id number] END OF REPORT 2019-02-20 22:11:00-00:00 [id number] [facility] [address] [place] [id number] PATIENT NAME: VIC REEVES ADMIT DATE: 9 ACCOUNT NO: [id number] ROOM NO: L.309 AGE: 38 REPORT TYPE: CONSULTATION SEX: F ADMITTING PHYSICIAN: Cony Partida MD ATTENDING PHYSICIAN: Cony Partida MD [...] By: Art Nguyen MD WT: CON:L.YANET/NAVARRO/LEX Conf#: [id number]/DID#: [id number] Authenticated and Edited by Art Nguyen MD On 10:33:45 PM Electronically Signed by Art Nguyen MD on at 2235 PATIENT NAME: VIC REEVES 3001 2019-02-20 12:46:00-00:00 [facility] ([facility] Hospitalist Progress Note REPORT#:[id number] REPORT STATUS: Signed DATE:02/20/19 TIME:1246 PATIENT: VIC REEVES UNIT #: [id number] ROOM/BED: [place] [address] : 80 AGE: 38 SEX: F ATTEND: Kushal Partida MD ADM AUTHOR: Cony Partida MD * ALL edits or amendments must be made on the [employer]/computer document * Subjective Chief Complaint: R flank [...] refill, normal range of motion, no edema 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, 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 X 3 Psychiatry: normal affect Results Findings/Data: Laboratory Tests 02/19 02/19 02/19 1815 1815 1700 Chemistry Lactic Acid (0.4 - 2.0 mmol/L) 0.7 0.8 Procalcitonin (0.00 - 0.05 ng/mL) 0.22 H 02/19 170 Chemistry Sodium (134 - 147 mmol/L) 137 [...] - 246 Unit/L) 131 Laboratory Tests 02/19 170 Hematology WBC (3.5 - 11.0 K/mm3) 18.4 [...] (Auto) (20.5 - 51.1 %) 5.0 L [place] % (Auto) (1.7 - 9.3 %) 10.2 H Eos % (Auto) (0.0 - 6.0 %) 0.1 Baso % (Auto) (0.0 - 2.0 %) 0.1 Neut # (Auto) (1.8 - 7.6 K/mm3) 15.61 H Lymph # (Auto) (0.6 - 3.2 K/mm3) 0.9 [place] # (Auto) (0.3 - 1.1 K/mm3) 1.9 H Eos # (Auto) (0.0 - 0.4 K/mm3) 0.0 Baso # (Auto) (0.0 - 0.1 K/mm3) 0.0 Add Manual Diff (CRITERIA DIFF/SCN) NO Anisocytosis (NONE) 1+ Laboratory Tests 02/19 183 Miscellaneous Maternal Serum HCG (0 - 6 mi-IU/ML) < 1 Laboratory Tests 02/19 1900 Urines Urine Color (YEL/STRAW discript) YELLOW Urine Appearance (CLEAR discript) CLEAR Urine pH (5.0 - 7.0 pH UNITS) 6.0 Ur Specific [place] (1.005 - 1.030 SG) 1.020 Urine Protein [...] dil atation of R ureter- report from [place] ER CT A/P WITHOUT CONTRAST possibly passed [...] MD on 02/11 at 1251 RPT #: [id number] END OF REPORT 2019-02-19 17:53:00-00:00 [facility] ([facility]) Hospitalist History Physical REPORT#:[id number] REPORT STATUS: Signed DATE:02/19/19 TIME:1753 PATIENT: VIC REEVES UNIT #: [id number] ROOM/BED: [place] [address] : 80 AGE: 38 SEX: F ATTEND: Kushal Partida MD ADM AUTHOR: Cony Partida MD * ALL edits or amendments must be made on the [employer]/computer document * History of Present Illness HPI Chief complaint: R flank pain PCP: PCP: Jordan Jean MD HPI: 38 yo white female admitted as a transfe r from [facility] ER. She has PMH of depression, insomnia, chronic back pain. 1 week now has severe R flan k pain that radiates to the RLQ and pelvic area and is constant up to 10/10 [place]. No ameliorating factor. had N/V x 1 today. she has been having dysuria and hematuria. Now has w eakness and dizziness. 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
[2022-09-24] MEDS ORDERED: METOCLOPRAMIDE 10 MG/2mL INJ ONE (19:45)
[2022-09-24] MEDS ORDERED: DIPHENHYDRAMINE 50 MG/ML VIAL ONE (19:45)
[2022-09-24] MEDS ORDERED: KETOROLAC 30 MG/ML INJ ONE (19:46)
[2022-09-24] MEDS ORDERED: dexAMETHasone 4 MG/ML VIAL ONE (19:46)
[2022-09-24] MEDS ORDERED: NA CHLORIDE 0.9% 1,000 ML ONE (19:46)
[2022-09-24] MEDS ORDERED: MORPHINE 4 MG/ML SYR ONE (21:07)
--- NOTE | 2022-09-24 21:48 | RAD REPORT ---
EXAM DESCRIPTION: CT - Head Brain Wo Cont - 09/24/2022 9:36 pm CLINICAL HISTORY: HEADACHE COMPARISON: Head Brain Wo Cont dated 09/23/2022; Head Brain Wo Cont dated 02/17/2021 TECHNIQUE: Noncontrast head CT images ad were obtained without IV contrast. Multiplanar reformats we re generated and reviewed. All CT scans are performed using dose optimization technique as appropriate and may include automated exposure control or mA/KV adjustment according to patient size. FINDINGS: No intracranial hemorrhage, mass, or edema. Midline structures are unremarkable. Normal ventricular caliber for age. Parikh-white matter differentiation is preserved, without evidence of acute infarct. No abnormal extra- axial fluid collections. Mastoid air cells and visualized portions of the paranasal sinuses are clear. No acute bony findings. IMPRESSION: No evidence of an acute intracranial process.
--- NOTE | 2022-09-24 21:57 | RAD REPORT ---
EXAM DESCRIPTION: CT - Head angio - 09/24/2022 9:36 pm CLINICAL HISTORY: HEADACHE COMPARISON: Head Brain Wo Cont dated 09/24/2022; Head Brain Wo Cont dated 09/23/2022 TECHNIQUE: Axial CT angiography images of the head was performed with multiplanar and maximum intens ity projection reconstructions. Images performed following intravenous administration of 98mL Isovue 370. All CT scans are performed using dose optimization technique as appropriate and may include automated exposure control or mA/KV adjustment according to patient size. FINDINGS: No evidence of large vessel occlusion. No evidence of aneurysm or dissection flap is detec alistair. No flow-limiting stenosis or vascular malformation identified. Antegrade flow is seen in the vertebral arteries. The vertebral arteries are codominant. The visualized dural venous sinuses are grossly patent. IMPRESSION: No evidence of large vessel occlusion or flow-limiting stenosis.
--- NOTE | 2022-09-24 22:03 | RAD REPORT ---
EXAM DESCRIPTION: CT - Neck Angio - 09/24/2022 9:36 pm CLINICAL HISTORY: HEADACHE COMPARISON: Head Brain Wo Cont dated 09/24/2022; Head angio dated 09/24/2022 TECHNIQUE: Axial CT angiography images of the head was performed with multiplanar and maximum intens ity projection reconstructions. Images performed following intravenous administration of 98mL Isovue 370. All CT scans are performed using dose optimization technique as appropriate and may include automated exposure control or mA/KV adjustment according to patient size. Quantification of carotid stenosis, if any, is performed according to NASCET criteria. FINDINGS: A left aortic arch is identified with normal three vessel configuration of the great vesse ls. No significant flow abnormality is seen of the common carotid bilaterally. No significant stenosis is identified involving the cervical segments of both internal carotid arteri es. Normal flow is seen within both vertebral arteries. IMPRESSION: No significant flow abnormality of the neck vessels is identified. CAROTID STENOSIS REFERENCE USING NASCET CRITERIA: % ICA stenosis = (1 - narrowest ICA diameter/diameter of distal cervical ICA) x 100. Mild - <50% stenosis. Moderate - 50-69% stenosis. Severe - 70-94% stenosis. Near occlusion - 95-99% stenosis. Occluded - 100% stenosis.
[2022-09-24] MEDS ORDERED: PROMETHAZINE INJ 25 MG/ML AMP ONE (22:27)
--- NOTE | 2022-09-24 22:40 | EDPHYS ---
Physician Documentation [facility] Name: Yohana Reeves Age: 41 yrs Sex: Female : 1980 Arrival Date: 09/24/2022 Time: 19:17 Bed 13 Private MD: Edd Friedman ED Physician Violeta Shin HPI: 09/24 19:45 This 41 yrs old Female presents to ER via Ambulatory with complaints of Headache, cp Nausea, Blood Pressure Problem. 19:45 The patient complains of pain to the top of head and forehead. The patient describes cp the headache as aching, constant. Onset: The symptoms/episode began/occurred 1 week(s) ago. Associated signs and symptoms: Pertinent positives: nausea, Photophobia Pertinent negatives: altered mental status, fever, neck stiffness, paresthesias, sinus congestion, sinus tenderness, weakness. Severity of symptoms: in the emergency department the pain is unchanged, despite home interventions. Headache History: Other patient reports history of migraines. The patient has been recently seen at the [facility] Emergency Department, yesterday, for similar complaints prescribed Imitrex for home use w/o relief. Historical: - Allergies: 19:26 No Known Allergies; mb9 - Home Meds: 19:47 Ambien 10 mg Oral tab 1 tab once daily [Active]; bisoprolol-hydrochlorothiazide Oral rv [Active]; hydrocodone-acetaminophen 5-325 mg Oral tab 1 tab every 4-6 hours [Active]; Lamictal 200 mg Oral tab 1 tab once daily [Active]; Latuda 80 mg Oral tab 1 tab once daily [Active]; Lopressor 50 mg Oral tab [Active]; losartan 50 mg Oral tab 1 tab once daily [Active]; Prozac 20 mg Oral cap 1 cap 2 times per day [Active]; Rexulti oral [Active]; - PMHx: 19:26 chronic back pain; heart attack due to trauma; Migraine; GI Bleed; depressive disorder; mb9 Kidney stones; - PSHx: 19:26 section; Emergency laparotomy; mb9 - Immunization history:: Adult Immunizations up to date. - Social history:: Smoking status: Patient denies any tobacco usage or history of. ROS: 19:50 Constitutional: Negative for body aches, chills, fever, poor PO intake. cp 19:50 Eyes: Positive for photophobia. cp 19:50 Neck: Negative for pain with movement, pain at rest, stiffness. 19:50 Cardiovascular: Negative for chest pain, edema, palpitations. 19:50 Respiratory: Negative for cough, shortness of breath, wheezing. 19:50 Abdomen/GI: Positive for nausea, Negative for diarrhea, constipation, active vomiting. 19:50 Neuro: Positive for headache, Negative for altered mental status, weakness. 19:50 All other systems are negative. Exam: 19:55 Constitutional: The patient appears in no acute distress, alert, awake, cp non-diaphoretic, non-toxic, well developed, well nourished, uncomfortable. 19:55 Head/Face: Normocephalic, atraumatic. cp 19:55 Eyes: Periorbital structures: appear normal, Pupils: equal, round, and reactive to light and accomodation, Extraocular movements: intact throughout, Conjunctiva: normal, no exudate, no injection, Sclera: no appreciated abnormality, Lids and lashes: appear normal, bilaterally. 19:55 ENT: External ear(s): are unremarkable, Nose: is normal, Mouth: Lips: moist, Oral mucosa: pink and intact, moist, Posterior pharynx: is normal, airway is patent, no erythema, no exudate. 19:55 Neck: ROM/movement: is normal, is supple, without pain, no range of motions limitations, no meningismus, no nuchal rigidity. 19:55 Chest/axilla: Inspection: normal. 19:55 Cardiovascular: Rate: normal, Rhythm: regular, Edema: is not appreciated, JVD: is not appreciated. 19:55 Respiratory: the patient does not display signs of respiratory distress, Respirations: normal, no use of accessory muscles, no retractions, labored breathing, is not present, Breath sounds: are clear throughout, no decreased breath sounds, no stridor, no wheezing. 19:55 Abdomen/GI: Exam negative for discomfort, distension, guarding, Inspection: abdomen appears normal. 19:55 Back: pain, is absent, ROM is normal. 19:55 Neuro: Orientation: to person, place \T\ time. Mentation: is normal, Motor: moves all fours, strength is normal, Sensation: no obvious gross deficits, Gait: is steady, at a normal pace, without difficulty. Vital Signs: 19:23 BP 127 / 75; Pulse 79; Resp 18; Temp 97.9; Pulse Ox 100% ; Weight 86.18 kg; Height 5 mb9 ft. 2 in. ; Pain 10/10; 20:31 BP 116 / 67; Pulse 71; Resp 17; Pulse Ox 100% on R/A; rv 22:30 BP 118 / 66; Pulse 76; Resp 17; Temp 98; Pulse Ox 99% on R/A; rv 19:23 Body Mass Index 34.75 (86.18 kg, 157.48 cm) mb9 19:23 Pain Scale: Adult mb9 [place] Coma Score: 22:30 Eye Response: spontaneous(4). Motor Response: obeys commands(6). Verbal Response: rv oriented(5). Total: 15. MDM: 19:29 Patient medically screened. cp 20:00 Differential diagnosis: intracerebral hemorrhage, meningitis, meningoencephalitis, cp migraine, sinusitis, subarachnoid bleed, subdural hematoma, tension headache, traumatic injuries. 22:38 Data reviewed: vital signs, nurses notes, radiologic studies, CT scan. 22:38 Consideration of Admission/Observation Escalation of care including cp admission/observation considered. I considered the following discharge prescriptions or medication management in the emergency department Medications were administered in the Emergency Department. See MAR. Test considered but Not performed: Other Details spinal tap. Counseling: I had a detailed discussion with the patient and/or guardian regarding: the historical points, exam findings, and any diagnostic results supporting the discharge/admit diagnosis, radiology results, the need for outpatient follow up, for definitive care, a neurologist, to return to the emergency department if symptoms worsen or persist or if there are any questions or concerns that arise at home. Response to treatment: the patient's symptoms have markedly improved after treatment, and as a result, I will discharge patient. 09/24 20:52 Order name: CT Head Angio; Complete Time: 22: cp 09/24 20:52 Order name: CT Neck Angio; Complete Time: 22: cp 09/24 21:09 Order name: CT Head Brain wo Cont; Complete Time: 22: 09/24 22:10 Interpretation: Report reviewed. 09/24 19:36 Order name: IV; Complete Time: 19:42 cp Administered Medications: 19:45 Drug: NS 0.9% IV 1000 ml Route: IV; Rate: 1 bolus; Site: right antecubital; rv 21:01 Follow up: IV Status: Completed infusion; IV Intake: 1000ml rv 19:45 Drug: metoCLOPramide IVP 10 mg Route: IVP; Site: right antecubital; rv 20:32 Follow up: Response: No adverse reaction rv 19:45 Drug: diphenhydrAMINE IVP 25 mg Route: IVP; Site: right antecubital; rv 20:32 Follow up: Response: No adverse reaction rv 19:45 Drug: Ketorolac IVP 15 mg Route: IVP; Site: right antecubital; rv 20:32 Follow up: Response: No adverse reaction rv 19:45 Drug: Decadron - Dexamethasone IVP 10 mg Route: IVP; Site: right antecubital; rv 20:32 Follow up: Response: No adverse reaction rv 21:01 Drug: morphine IVP or IV 4 mg Route: IVP; Infused Over: 4 mins; Site: right antecubital;rv 22:22 Drug: Promethazine IM 25 mg Route: IM; Site: right deltoid; rv 22:52 Follow up: Response: No adverse reaction rv 22:51 Drug: HYDROmorphone IVP 1 mg Route: IVP; Site: right antecubital; rv 22:52 Follow up: Response: Medication administered at discharge. rv Disposition Summary: 09/24/22 22:39 Discharge Ordered Location: Home cp Problem: an ongoing problem cp Symptoms: have improved cp Condition: Stable cp Diagnosis - Headache cp Followup: cp - With: Leif Qiu MD - When: 1 - 2 days - Reason: Recheck today's complaints Discharge Instructions: - Discharge Summary Sheet cp - Migraine Headache cp Forms: - Medication Reconciliation Form cp - Thank You Letter cp - Antibiotic Education cp - Prescription Opioid Use cp - Work release form eb Prescriptions: - Reglan 10 mg Oral Tablet - take 1 tablet by ORAL route every 6 hours take 30 minutes before meals and at cp bedtime; 20 tablet; Refills: 0, Product Selection Permitted Signatures: Dispatcher [employer] Scott Moss PA PA cp Vicente, Ronaldo, RN RN rv Cherelle Baires RN RN mb9 Corrections: (The following items were deleted from the chart) 19:49 19:31 Urine Microscopic+U.LAB.BRZ ordered. EDMS EDMS 49 19:31 Test, Urine+UC.LAB.BRZ ordered. EDMS EDMS 19:36 CBC+H.LAB.BRZ ordered. EDMS EDMS 19:36 BASIC METABOLIC PANEL+C.LAB.BRZ ordered. EDMS EDMS
--- NOTE | 2022-09-24 22:40 | ER ---
Nurse's Notes [facility] Name: Yohana Reeves Age: 41 yrs Sex: Female : 1980 Arrival Date: 09/24/2022 Time: 19:17 Bed 13 Private MD: Edd Friedman Diagnosis: Headache Presentation: 09/24 19:23 Chief complaint: Patient states: "I've had a migraine over a week and it still hasn't mb9 gone away. I was here yesterday for the same thing. I've been N/V. I took Excedrin migraine, Zofran, and Topamax, nothing is helping. I tried calling a neurologist to make a appointment but they didn't answer. I was told to come here and be reevaluated. Coronavirus screen: Vaccine status: Patient reports receiving the 2nd dose of the covid vaccine. Ebola Screen: No symptoms or risks identified at this time. Initial Sepsis Screen: Does the patient meet any 2 criteria? No. Patient's initial sepsis screen is negative. Does the patient have a suspected source of infection? No. Patient's initial sepsis screen is negative. Risk Assessment: Do you want to hurt yourself or someone else? Patient reports no desire to harm self or others. Onset of symptoms was September 24, 2022. 19:23 Method Of Arrival: Ambulatory [facility] 19:23 Acuity: NICOLASA 3 mb9 Triage Assessment: 19:26 Headache History: The patient has had previous headaches and this one is similar to mb9 previous episodes. General: Appears uncomfortable, Behavior is crying. Pain: Complains of pain in head Pain does not radiate. Pain currently is 10 out of 10 on a pain scale. Quality of pain is described as pulsating, Pain began 1 week agp Is continuous. Neuro: Level of Consciousness is awake, alert, obeys commands, Oriented to person, place, time, situation, Appropriate for age Reports blurred vision dizziness, headache. Respiratory: Airway is patent. GI: Reports nausea. Derm: Skin is pink, warm \\T\\ dry. 19:49 Pain: Also complains of photophobia. rv Historical: - Allergies: 19:26 No Known Allergies; mb9 - Home Meds: 19:47 Ambien 10 mg Oral tab 1 tab once daily [Active]; bisoprolol-hydrochlorothiazide Oral rv [Active]; hydrocodone-acetaminophen 5-325 mg Oral tab 1 tab every 4-6 hours [Active]; Lamictal 200 mg Oral tab 1 tab once daily [Active]; Latuda 80 mg Oral tab 1 tab once daily [Active]; Lopressor 50 mg Oral tab [Active]; losartan 50 mg Oral tab 1 tab once daily [Active]; Prozac 20 mg Oral cap 1 cap 2 times per day [Active]; Rexulti oral [Active]; - PMHx: 19:26 chronic back pain; heart attack due to trauma; Migraine; GI Bleed; depressive disorder; mb9 Kidney stones; - PSHx: 19:26 section; Emergency laparotomy; mb9 - Immunization history:: Adult Immunizations up to date. - Social history:: Smoking status: Patient denies any tobacco usage or history of. Screenin:[address] [facility] ED Fall Risk Assessment (Adult) History of falling in the last 3 months, rv including since admission No falls in past 3 months (0 pts) Confusion or Disorientation No (0 pts) Intoxicated or Sedated No (0 pts) Impaired Gait No (0 pts) Mobility Assist Device Used No (0 pt) Altered Elimination No (0 pt) Score/Fall Risk Level 0 - 2 = Low Risk Oriented to surroundings, Maintained a safe environment, Educated pt \\T\\ family on fall prevention, incl call for assistance when getting out of bed, Assessed \\T\\ reinforced patient's understanding of fall precautions, Provided non-skid footwear, Hourly rounding (assess needs \\T\\ fall precautionary measures) done, Used ambulatory aids as needed (educated on \\T\\ assisted with), Used gait belt as appropriate. Abuse screen: Denies threats or abuse. Denies injuries from another. Nutritional screening: No deficits noted. Tuberculosis screening: No symptoms or risk factors identified. Assessment: 19:45 General: Appears uncomfortable, Behavior is calm, cooperative. Pain: Complains of pain rv in HEAD Pain currently is 8 out of 10 on a pain scale. Neuro: Level of Consciousness is awake, alert, obeys commands, Oriented to person, place, time, situation, Reports headache that is the "worst ever", photophobia. Cardiovascular: Capillary refill < 3 seconds. Respiratory: Airway is patent Respiratory effort is even, unlabored. Derm: Skin is intact. Vital Signs: 19:23 BP 127 / 75; Pulse 79; Resp 18; Temp 97.9; Pulse Ox 100% ; Weight 86.18 kg; Height 5 mb9 ft. 2 in. ; Pain 10/10; 20:31 BP 116 / 67; Pulse 71; Resp 17; Pulse Ox 100% on R/A; rv 22:30 BP 118 / 66; Pulse 76; Resp 17; Temp 98; Pulse Ox 99% on R/A; rv 19:23 Body Mass Index 34.75 (86.18 kg, 157.48 cm) mb9 19:23 Pain Scale: Adult mb9 Nasra Coma Score: 22:30 Eye Response: spontaneous(4). Motor Response: obeys commands(6). Verbal Response: rv oriented(5). Total: 15. ED Course: 19:20 Patient arrived in ED. es 19:21 Edd Friedman MD is Private Physician. es 19:25 Scott Campa PA is PHCP. cp 19:25 Violeta Shin MD is Attending Physician. cp 19:26 Triage completed. mb9 19:26 Arm band placed on. mb9 19:28 Zacarias Morse, FÁTIMA is Primary Nurse. rv 19:30 Inserted saline lock: 20 gauge in right antecubital area, using aseptic technique. rv Blood collected. 19:48 Patient has correct armband on for positive identification. Bed in low position. Call rv light in reach. Side rails up X2. Adult w/ patient. Client placed on continuous cardiac and pulse oximetry monitoring. NIBP monitoring applied. 19:49 No provider procedures requiring assistance completed. rv 21:38 CT Head Angio In Process Unspecified. EDMS 21:38 CT Neck Angio In Process Unspecified. EDMS 21:38 CT Head Brain wo Cont In Process Unspecified. EDMS 22:38 Leif Qiu MD is Referral Physician. cp 22:52 IV discontinued, intact, bleeding controlled, No redness/swelling at site. Pressure rv dressing applied. Administered Medications: 19:45 Drug: NS 0.9% IV 1000 ml Route: IV; Rate: 1 bolus; Site: right antecubital; rv 21:01 Follow up: IV Status: Completed infusion; IV Intake: 1000ml rv 19:45 Drug: metoCLOPramide IVP 10 mg Route: IVP; Site: right antecubital; rv 20:32 Follow up: Response: No adverse reaction rv 19:45 Drug: diphenhydrAMINE IVP 25 mg Route: IVP; Site: right antecubital; rv 20:32 Follow up: Response: No adverse reaction rv 19:45 Drug: Ketorolac IVP 15 mg Route: IVP; Site: right antecubital; rv 20:32 Follow up: Response: No adverse reaction rv 19:45 Drug: Decadron - Dexamethasone IVP 10 mg Route: IVP; Site: right antecubital; rv 20:32 Follow up: Response: No adverse reaction rv 21:01 Drug: morphine IVP or IV 4 mg Route: IVP; Infused Over: 4 mins; Site: right antecubital;rv 22:22 Drug: Promethazine IM 25 mg Route: IM; Site: right deltoid; rv 22:52 Follow up: Response: No adverse reaction rv 22:51 Drug: HYDROmorphone IVP 1 mg Route: IVP; Site: right antecubital; rv 22:52 Follow up: Response: Medication administered at discharge. rv Medication: 19:49 VIS not applicable for this client. rv Intake: 21:01 IV: 1000ml; Total: 1000ml. rv Outcome: 22:39 Discharge ordered by MD. cp 22:52 Discharged to home ambulatory, with family. rv 22:52 Condition: improved 22:52 Discharge instructions given to patient, Instructed on discharge instructions, follow up and referral plans. medication usage, Demonstrated understanding of instructions, follow-up care, medications, Prescriptions given X 1. 22:53 Patient left the ED. rv Signatures: Dispatcher [employer] Iliana Madrigal Corey, PA PA cp Zacarias Morse RN RN rv Cherelle Baires RN RN mb9
[2022-09-24] MEDS ORDERED: HYDROMORPHONE HCL 1 MG/ML INJ ONE (22:52)
[2022-09-25 00:21] VITALS: BP 118/66; TEMP 98; O2SAT 99
== END 2022-09-24 22:53 | disposition home or self-care (01) ==
LOC: ER 19:17
DX: R51.9 Headache, unspecified (principal); F32.A Depression, unspecified
CPT/HCPCS: 96361; 70450; 70496; 70498; 96375; 96372; 96374; 99284; Q9967; J2550; J1100; J2765; J1200; J1170; J7030

== ENCOUNTER 2022-09-25 10:11 | Emergency (ER) | payer BC ==
--- OUTSIDE RECORDS SUMMARY | 2022-09-25 10:33 | XMS REPORT | Continuity of Care Document ---
:1980 Author Organization [facility] t Address [address] [place] [address] [place] [id number] Care Team Providers Name Role Phone None, None Primary Care Physician CAITIE SHIPLEY Attending Clinician Unavailable Caitie Klein Attending Clinician ANGEL ATKINS Attending Clinician Unavailable ELISE RICE Attending Clinician Unavailable Jagjit HANGER OFF, Elise Attending Clinician Pob, [facility] Main Attending Clinician Unavailable Ariel Britt MD Attending Clinician ARIEL BRITT Attending Clinician Unavailable Doctor Unassigned, [place] Attending Clinician Unavailable Paul Sams MD Attending Clinician PAUL SAMS Attending Clinician Unavailable _SWAMBER_Stan_Edis Attending Clinician Unavailable Alex Pierce Attending Clinician [phone] Megan Aranda Attending Clinician Ann Cardozo DO Attending Clinician Angelo Robles MD Attending Clinician Naun Bush MD Attending Clinician Mark Monterroso Attending Clinician Candido Isabel Attending Clinician CANDIDO RAMIREZ Attending Clinician Unavailable CAITIE SHIPLEY Admitting Clinician Unavailable [email or web address]_[email or web address]_J Admitting Clinician Unavailable Naun Bush MD Admitting Clinician CANDIDO RAMIREZ Admitting Clinician Unavailable Payers Payer Name Policy Type Policy Number Effective Date Expiration Date S ource [place] OF [id number] 2021 [facility] 00:00:00 TML GBRP CLAIMS [id number] 2017 00:00:00 [place] [id number] 2021 00:00:00 BCBS PPO POS EPO CHOICE [id number] 2021 00:00:00 [facility] [id number] 2017 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 PLAN 00:00:00 [place] TRUE CHOICE (PPO) Problems Condition Condition Condition Status Onset Resolution Last Treating Co mments Source Name Details Category Date Date Treatment Clinician Date Tachycardi Tachycardi Disease Active 2019-04 U nivers a a 0-28 ity of 00:: [place] [facility] Family Family Disease Active 2019-04 Univers history of history of 0-28 it y of early CAD [place] [facility] Chest pain Chest pain Disease Active 2019-04 U nivers 0-27 ity of 00:: [place] [facility] Obesity Obesity Disease Active 2019-04 Univers (BMI (BMI 0-27 ity of 30-39.9) 30-39.9) 00:00: [facility] RLQ RLQ Disease Active 2019- Univers abdominal abdominal 9-24 ity of pain pain 00:00: [facility] Anxiety Anxiety Disease Active 2019- Univers 9-24 ity of 00:00: [place] [facility] Chronic Chronic Disease Active 2019 Univers low back low back 9-24 ity of pain pain 00:00: [facility] Anemia Anemia Problem Active [facility]- Medical 00:00: 00 Hypertensi Hypertensi Problem Active [facility] ve ve 11-11 Medical disorder Disorder 00:00: 00 Hyperchole Hyperchole Problem Active [facility] sterolemia sterolemia 11-11 Me dical 00:00: 00 Allergies, Adverse Reactions, Alerts Allergy Allergy Status Severity Reaction(s) Onset Inactive Treating Comm ents Source Name Type Date Date Clinician ally [place] Active [place] [facility] subsalic 7-29 Clear ylate 00:00: [facility] 00 [facility] NO KNOWN Drug Active Univers ALLERGIE Class ity of S [facility] NO KNOWN Allergy Active [facility] Social History Social Habit Start Date Stop Date Quantity Comments Source History of Cigarette [facility] tobacco use Exposure to 2022-06-23 2022-07-03 Not sure [facility] SARS-CoV-2 00:00:00 10:38:00 (event) Alcohol intake 2022-07-03 2022-07-03 [facility] 00:00:00 00:00:00 Tobacco use and 2022-07-03 2022-07-03 Smokeless tobacco [facility] exposure 00:00:00 00:00:00 non-user History SDOH 2020-02-08 2020-02-08 99 University o f Alcohol Frequency 00:00:00 00:00:00 [facility] edical Branch History SDOH 2020-02-08 2020-02-08 99 University o f Alcohol Std 00:00:00 00:00:00 [place] [facility] Branch History SDOH 2020-02-08 2020-02-08 99 University o f Alcohol Binge 00:00:00 00:00:00 [facility] al Branch Tobacco Comment 2020-02-07 2020-02-07 rarely Universit y of 00:00:00 00:00:00 [facility] Branch Alcohol Comment 2020-02-07 2020-02-07 occasionally Univers ity of 00:00:00 00:00:00 [facility] Cigarettes smoked 2020-01-24 2020-01-24 Univers ity of current (pack per 00:00:00 00:00:00 [facility] ) - Reported Branch Sex Assigned At [birth year] [facility] 00:00:00 00:00:00 Smoking Status Start Date Stop Date Source Heavy Tobacco Smoker [facility] Ex-smoker 2022-07-03 00:00:00 2022-07-03 [facility] Start Stop Current [...] ity o f (PF)) 14:45: 14:33 Push, [place] injection 00 :00 ONCE, 1 Medical 25 mcg dose, On Branch Thu09/15/22 at 0945, STAT dicyclomine No 20mg 20 mg, Uni vers (BENTYL) 09-15 Intramuscu ity of injection 14:45: 13:48 lar, ONCE, [place] 20 mg 00 :00 1 dose, On Medical Thu09/15/22 Branch at 0945, LORENE NaCl 0.9% No 1000mL at 999 Uni vers (NS) bolus 09-15 mL/hr, ity of infusion 14:45: 15:49 1,000 mL, [place] as 1,000 mL 00 :00 IV Medical Infusion, Branch ONCE, 1 dose, On Thu09/15/22 at 0945, STAT iopamidol 2022- No [id number] 130mL 130 mL, Univers (ISOVUE 09-15 Intravenou ity o f 370-500 mL) 14:20: 14:20 s, ONCE, 1 [place] injection 00 :00 dose, On Medica l 130 mL Thu09/15/22 Branch at 0945, Routine cefTRIAXone No 1000mg 1,000 mg, Univers (ROCEPHIN) 09-1505 IV ity of 1,000 mg in 14:15: 14:25 Piggyback, [place] NaCl 0.9% 00 :00 ONCE, 1 Medical [...] On Branch Thu09/15/22 at 0900, [place]OR[place] famotidine 2022- No 20mg 20 mg, Univ ers (PEPCID 09-15 Slow IV ity of (PF)) 13:45: 13:49 Push, [place] injection 00 :00 ONCE, 1 Medical 20 mg dose, On Branch Thu09/15/22 at 0845, [place] diphenhydrA 2022- No 12.5mg 12.5 mg, Univers MINE 09-15 Slow IV ity of (BENADRYL) 13:45: 13:49 Push, [place] injection 00 :00 ONCE, 1 Medical 12.5 mg dose, On Branch Thu09/15/22 at 0845, [place] metoclopram 2022- No 5mg 5 mg, Slow Univers adarsh HCl 09-15 IV Push, ity of (REGLAN) 13:45: 13:49 ONCE, 1 [place] injection 5 00 :00 dose, On Medi riky mg Thu09/15/22 Branch at 0845, [place] dicyclomine Yes [id number] 20mg Take 1 Univers 20 mg 09-15 tablet by ity of tablet 00:00: mouth 4 [place] 00 (four) Medical times Branch daily as needed for Abdominal pain. cefdinir 0 2022- Yes [id number] 300mg Take 1 Univers 300 mg 09-15 capsule by ity of capsule 00:00: 04:59 mouth [place] 00 :00 every 12 Medical (twelve) Branch hours for 7 days. lamoTRIgine 0 Yes 200mg QD Take 200 U T (LaMICtal) 3-23 mg by Health 200 MG 11:03: mouth 1 tablet 19 (one) time each day. Lurasidone 0 Yes 120mg QD Take 120 UT HCl 3-23 mg by Health (Latuda) 11:02: mouth 1 120 MG 47 (one) time tablet each day with breakfast. venlafaxine 0 Yes 75mg Take 75 mg UT XR 3-23 by mouth. Health (Effexor-XR 11:02: ) 75 MG 24 08 hr capsule montelukast 0 Yes 10mg Take 10 mg UT (Singulair) 3-23 by mouth Heal th 10 MG 11:02: if needed. tablet 08 HYDROcodone 0 Yes 1{tbl} Take 1 UT -acetaminop 3-23 tablet by a lt hen ([place]) 11:02: mouth if 5-325 MG 08 needed. tablet zolpidem 0 Yes 10mg Take 10 mg UT (Ambien) 10 3-23 by mouth. Hea lth MG tablet 11:02: 07 FLUoxetine Yes 80mg Take 80 mg U T (PROzac) 40 3-23 by mouth. Hea lth MG capsule 11:02: 07 benzonatate 2021-0 Yes 100mg Take [address] (TESSALON) 7-05 mg [facility] 100 MG 14:24: mouth 3 Medical capsule 12 (three) Center times daily as needed for Cough. meloxicam 0 Yes 15mg QD Take [address] (MOBIC) 15 7-05 by mouth [facility] MG tablet 14:24: daily. Medica l 12 [place] montelukast 0 Yes 10mg QD Take 10 [...] MG tablet 14:24: daily. Medica l 12 [place] montelukast 0 Yes 10mg QD Take [address] (SINGULAIR) 7-05 by mouth Luke s 10 mg 14:24: nightly. Medical tablet 12 [place] benzonatate 2-0 Yes 100mg Take [address] (TESSALON) 7-05 mg by [facility] 100 MG 14:24: mouth 3 Medical capsule 12 (three) Center times daily as needed for Cough. meloxicam 2-0 Yes 15mg QD Take [address] (MOBIC) 15 7-05 by mouth [facility] MG tablet 14:24: daily. Medica l [address] [place] [address] montelukast 2021-0 Yes 10mg QD Take [address] (SINGULAIR) 7-05 by mouth Luke s 10 mg 14:24: nightly. Medical tablet [address] [place] [address] benzonatate 2021-0 Yes 100mg Take [address] (TESSALON) 7-05 mg by [facility] 100 MG 14:24: mouth 3 Medical capsule 12 (three) Center times daily as needed for Cough. meloxicam 2-0 Yes 15mg QD Take [address] (MOBIC) 15 7-05 by mouth [facility] MG tablet 14:24: daily. Medica l [address] [place] [address] montelukast 2021-0 Yes 10mg QD Take [address] (SINGULAIR) 7-05 by mouth Luke s 10 mg 14:24: nightly. Medical tablet [address] [place] [address] benzonatate 2021-0 Yes 100mg Take [address] (TESSALON) 7-05 mg by [facility] 100 MG 14:24: mouth 3 Medical capsule 12 (three) Center times daily as needed for Cough. meloxicam 2-0 Yes 15mg QD Take [address] (MOBIC) 15 7-05 by mouth [facility] MG tablet 14:24: daily. Medica l [address] [place] [address] montelukast 2021-0 Yes 10mg QD Take [address] (SINGULAIR) 7-05 by mouth Luke s 10 mg 14:24: nightly. Medical tablet [address] [place] [address] benzonatate 2-0 Yes 100mg Take 100 C [...] mg 14:24: nightly. Medical tablet 12 Center butalbitnv- 2021- No 1{tbl} Take 1 C HI [...] tablet Headaches for up to 5 days. butalbitnv- 2021- No 1{tbl} Take [address] acetaminoph 7-05 07-10 tablet by Rachel kes en-caffeine 00:00: 23:59 mouth Medi riky (FIORICET, 00 :00 every 6 Center ESGIC) (six) 50-325-40 hours as mg per needed for tablet Headaches for up to 5 days. butalbitnv- 2021- No 1{tbl} Take 1 C HI [...] ity of mg 19:15: 18:10 ONCE, 1 [place] 00 :00 dose, Mon Medical 07/23/20 at [...] mg 00 :00 ONCE, 1 Medical dose, [facility] 07/23/20 at 1300, LORENE
Fa culty member approving Restricted medication : MEGAN LYONS iohexol 2020- No [id number] 120mL 120 mL, Univers (OMNIPAQUE 07-23 Intravenou it y of 350 17:15: 17:10 s, ONCE, 1 [place] BULK-150 00 :00 dose, Mon Medica l mL) 07/23/20 at Branch injection 1215, 120 mL Routine ondansetron Yes [id number] 4mg Take 1 Univers (ZOFRAN 4-12 tablet by ity of ODT) 4 mg 00:00: mouth [place] disintegrat 00 every 8 Medic al ing tablet (eight) Branch hours as needed for Nausea and Vomiting (N/V). ondansetron Yes [id number] 4mg Take 1 Univers (ZOFRAN 4-12 tablet by ity of ODT) 4 mg 00:00: mouth [place] disintegrat 00 every 8 Medic al ing tablet (eight) Branch hours as needed for Nausea and Vomiting (N/V). ondansetron 2020-0 Yes [id number] 4mg Take 1 Univers (ZOFRAN 4-12 tablet by ity of ODT) 4 mg 00:00: mouth [place] disintegrat 00 every 8 Medic al ing tablet (eight) Branch hours as needed for Nausea and Vomiting (N/V). ondansetron 2020-0 Yes [id number] 4mg Take 1 Univers (ZOFRAN 4-12 tablet by ity of ODT) 4 mg 00:00: mouth [place] disintegrat 00 every 8 Medic al ing tablet (eight) Branch hours as needed for Nausea and Vomiting (N/V). ondansetron 2020-0 Yes [id number] 4mg Take 1 Univers (ZOFRAN 4-12 tablet by ity of ODT) 4 mg 00:00: mouth [place] disintegrat 00 every 8 Medic al ing tablet (eight) Branch hours as needed for Nausea and Vomiting (N/V). ondansetron 2020-0 Yes [id number] 4mg Take 1 Univers (ZOFRAN 4-12 tablet by ity of ODT) 4 mg 00:00: mouth [place] disintegrat 00 every 8 Medic al ing tablet (eight) Branch hours as needed for Nausea and Vomiting (N/V). ondansetron 2020-0 Yes [id number] 4mg Take 1 Univers (ZOFRAN 4-12 tablet by ity of ODT) 4 mg 00:00: mouth [place] disintegrat 00 every 8 Medic al ing tablet (eight) Branch hours as needed for Nausea and Vomiting (N/V). ondansetron 2020-0 Yes [id number] 4mg Take 1 Univers (ZOFRAN 4-12 tablet by ity of ODT) 4 mg 00:00: mouth [place] disintegrat 00 every 8 Medic al ing tablet (eight) Branch hours as needed for Nausea and Vomiting (N/V). butorphanol 2020-2020- No 1mg 1 mg, IV U nivers (STADOL) 04-28 Push, ity of injection 1 00:00: 23:22 ONCE, 1 [place] mg 00 :00 dose, Fri Medical 04/27/20 at Branch 1800, Routine proMETHazin 2020- No 25mg 25 mg, IV Univers e 1-15 01-15 Piggyback, ity of (PHENERGAN) 22:45: 22:45 ONCE, [...] :00 dose, Fri Medical 50-325-40 04/27/20 at [facility] ch mg tablet 1 1530, tablet [...] mg 00 :00 1 dose, Medical Fri [place] 04/27/20 at 1430, LORENE ondansetron 2020- No [...] 0-28 mouth ity of (BYSTOLIC 19:30: daily. [place] ORAL) Medical Branch zolpidem 2019-04 Yes 10mg Take 10 mg Uni vers (AMBIEN) 10 0-28 by mouth ity of mg tablet 19:30: at [place] [address] bedtime. Medical Branch FLUoxetine 2019-04 Yes 80mg Take 80 mg U nivers (PROZAC) 40 0-28 by mouth ity of mg capsule 19:30: daily. [place] 22 Medical Branch ARIPiprazol 2019-04 Yes 5mg Take 5 mg U nivers e (ABILIFY) 0-28 by mouth ity of 5 mg tablet 19:30: daily. [facility] 22 [facility] HYDROcodone 2019-04 Yes 1{tbl} Take 1 Un [...] 0-28 mouth ity of (BYSTOLIC 19:30: daily. [place] [address] Medical Branch zolpidem 2019-04 Yes 10mg Take 10 mg Uni vers (AMBIEN) 10 0-28 by mouth ity of mg tablet 19:30: at [place] [address] bedtime. Medical Branch FLUoxetine 2019-04 Yes 80mg Take 80 mg U nivers (PROZAC) 40 0-28 by mouth ity of mg capsule 19:30: daily. [address] Branch ARIPiprazol 2019-04 Yes 5mg Take 5 mg U nivers e (ABILIFY) 0-28 by mouth ity of 5 mg tablet 19:30: daily. [address] HYDROcodone 2019-04 Yes 1{tbl} Take 1 [...] 0-28 mouth ity of (BYSTOLIC 19:30: daily. [place] [address] Medical Branch zolpidem 2019-04 Yes 10mg Take 10 mg Uni vers (AMBIEN) 10 0-28 by mouth ity of mg tablet 19:30: at [place] [address] bedtime. Medical Branch FLUoxetine 2019-04 Yes 80mg Take 80 mg U nivers (PROZAC) 40 0-28 by mouth ity of mg capsule 19:30: daily. [address] Branch ARIPiprazol 2019-04 Yes 5mg Take 5 mg U nivers e (ABILIFY) 0-28 by mouth ity of 5 mg tablet 19:30: daily. [address] Branch HYDROcodone 2019-04 Yes 1{tbl} Take [...] 0-28 mouth ity of (BYSTOLIC 14:30: daily. [place] [address] Medical Branch zolpidem 2019-04 Yes 10mg Take 10 mg Uni vers (AMBIEN) 10 0-28 by mouth ity of mg tablet 14:30: at [place] [address] bedtime. Medical Branch FLUoxetine 2019-04 Yes 80mg Take 80 mg U nivers (PROZAC) 40 0-28 by mouth ity of mg capsule 14:30: daily. [address] ARIPiprazol 2019-04 Yes 5mg Take 5 mg U nivers e (ABILIFY) 0-28 by mouth ity of 5 mg tablet 14:30: daily. [address] HYDROcodone 2019-04 Yes 1{tbl} Take 1 [...] 0-28 mouth ity of (BYSTOLIC 14:30: daily. [place] [address] Medical Branch zolpidem 2019-04 Yes 10mg Take 10 mg Uni vers (AMBIEN) 10 0-28 by mouth ity of mg tablet 14:30: at [place] [address] bedtime. Medical Branch FLUoxetine 2019-04 Yes 80mg Take 80 mg U nivers (PROZAC) 40 0-28 by mouth ity of mg capsule 14:30: daily. [address] ARIPiprazol 2019-04 Yes 5mg Take 5 mg U nivers e (ABILIFY) 0-28 by mouth ity of 5 mg tablet 14:30: daily. [address] HYDROcodone 2019-04 Yes 1{tbl} Take 1 Un carol -acetaminop 0-28 tablet by ity of hen (NORCO) 14:30: mouth 2 [place] as 5-325 mg 22 (two) Medical tablet times [place] daily. venlafaxine 2019-04 Yes 75mg Take 75 mg Univers XR (EFFEXOR 0-28 by mouth ity of XR) 75 mg 14:30: daily with [place] 24 hr 22 breakfast. Medical capsule Branch nebivolol 2019-04 Yes Take by Unive rs HCl 0-28 mouth ity of (BYSTOLIC 14:30: daily. [address] zolpidem 2019-04 Yes 10mg Take 10 mg Uni vers (AMBIEN) 10 0-28 by mouth ity of mg tablet 14:30: at [place] [address] bedtime. Medical Branch FLUoxetine 2019-04 Yes 80mg Take 80 mg U nivers (PROZAC) 40 0-28 by mouth ity of mg capsule 14:30: daily. [address] ARIPiprazol 2019-04 Yes 5mg Take 5 mg U nivers e (ABILIFY) 0-28 by mouth ity of 5 mg tablet 14:30: daily. [address] HYDROcodone 2019-04 Yes 1{tbl} Take 1 [...] 0-28 mouth ity of (BYSTOLIC 14:30: daily. [place] ORAL) 22 Medical Branch zolpidem 2019-04 Yes 10mg Take 10 mg Uni vers (AMBIEN) 10 0-28 by mouth ity of mg tablet 14:30: at [place] [address] bedtime. Medical Branch FLUoxetine 2019-04 Yes 80mg Take 80 mg U nivers (PROZAC) 40 0-28 by mouth ity of mg capsule 14:30: daily. [place] [address] Medical Branch ARIPiprazol 2019-04 Yes 5mg Take [...] 0-28 mouth ity of (BYSTOLIC 14:30: daily. [facility]) Medical Branch zolpidem 2019-04 Yes 10mg Take 10 mg Uni vers (AMBIEN) 10 0-28 by mouth ity of mg tablet 14:30: at [place] [address] bedtime. Medical Branch FLUoxetine 2019-04 Yes 80mg Take 80 mg U nivers (PROZAC) 40 0-28 by mouth ity of mg capsule 14:30: daily. [place] [address] Medical Branch ARIPiprazol 2019-04 Yes 5mg Take [...] 0-28 mouth ity of (BYSTOLIC 14:30: daily. [place] ORAL) Medical Branch zolpidem 2019-04 Yes 10mg Take 10 mg Uni vers (AMBIEN) 10 0-28 by mouth ity of mg tablet 14:30: at [place] [address] bedtime. Medical Branch FLUoxetine 2019-04 Yes 80mg Take 80 mg U nivers (PROZAC) 40 0-28 by mouth ity of mg capsule 14:30: daily. [place] [address] Medical Branch ARIPiprazol 2019-04 Yes 5mg Take 5 mg U nivers e (ABILIFY) 0-28 by mouth ity of 5 mg tablet 14:30: daily. [place] [address] Medical Branch HYDROcodone 2019-04 Yes 1{tbl} Take [...] 0-28 mouth ity of (BYSTOLIC 14:30: daily. [place] ORAL) Medical Branch zolpidem 2019-04 Yes 10mg Take 10 mg Uni vers (AMBIEN) 10 0-28 by mouth ity of mg tablet 14:30: at [place] [address] bedtime. Medical Branch FLUoxetine 2019-04 Yes 80mg Take 80 mg U nivers (PROZAC) 40 0-28 by mouth ity of mg capsule 14:30: daily. [place] [address] Medical Branch ARIPiprazol 2019-04 Yes 5mg Take 5 mg U nivers e (ABILIFY) 0-28 by mouth ity of 5 mg tablet 14:30: daily. [facility] 22 Medical Branch HYDROcodone [...] Yes 40mg 40 mg, Univ ers e 0- Oral, ity of (PROTONIX) 14:00: DAILY, [place] [...] dose [place] mg 00 on Thu [facility] 02/07/20 Branch at 2100, Until Discontinu ed, Routine NaCl 0.9% 2019-04 2020- No IV Univers (NS) IV 002-07 Infusion, ity of infusion 02:00: 09:59 at 125 [place] 00 :00 mL/hr, Medical CONTINUOUS Branch , Starting Thu02/07/20 at 2100, Until Thu02/08/20 at 0459, Routine HYDROcodone 2019-04 Yes 1{tbl} 1 tablet, Univers -acetaminop 0 Oral, BID, it y of hen (NORCO 01:00: First dose [place] 5) 5-325 mg 00 on Medica l tablet 1 02/07/20 Branch tablet [...] IV Push, ity of mg 00:21: 00:20 Q4[facility], [place] 44 :44 Starting Medical [facility] Branch 02/07/20 at 192, Until Thu02/08/20 at 192, Routine, Pain (scale 7-10), Chest pain acetaminoph 2019-04 2020- No 1{tbl} 1 tablet, Univers en-codeine 02-09 Oral, ity of (TYLENOL 00:21: [facility] [place] #[facility] 300-30 33 :33 Starting Medic al mg tablet [address] [facility] tablet 02/07/20 at 192, Until [place] 02/09/20 at 192, Routine, Pain (scale 4-6) acetaminoph 2019-04 Yes 650mg 650 mg, Un carol en 0 Oral, ity of (TYLENOL) 00:21: Q6[place], [place] tablet 650 31 Starting Medic al mg [facility] 02/07/20 at 192, Until Discontinu ed, Routine, Pain (scale 1-3) FENTanyl PF 2019-04 2020- No 100ug 100 mcg, Univers (SUBLIMAZE 02-06 Slow IV ity o f (PF)) 23:30: 22:26 Push, [place] injection 00 :00 ONCE, 1 Medical 100 mcg dose, [facility] Branch 02/07/20 at 1830, STAT nitroglycer 2019-04- No .4mg 0.4 mg, Un carol in 02-06 Sublingual ity of (NITROSTAT) 22:30: 21:30 , ONCE, 1 [place] sublingual 00 :00 dose, [facility] Medi riky tablet 0.4 02/07/20 Branc h mg at 1730, [facility] acetaminoph 2019-04- No 975mg 975 mg, U nivers en 02-06 Oral, ity of (TYLENOL) 22:30: 21:30 [facility] dose, [facility] Medi riky mg 02/07/20 Branch at 1730, [facility] iohexol 2019-04 2020- No 120mL 120 mL, Unive rs (OMNIPAQUE 02-06 Intravenou it y of 350 21:30: 21:30 s, ONCE, 1 [place] BULK-150 00 :00 dose, Tue Medica l mL) 02/07/20 Branch injection at 1630, 120 mL Routine ondansetron 2019-04 2020- No 4mg 4 mg, Slow Univers (ZOFRAN 002-06 IV Push, ity of (PF)) 21:30: 20:30 ONCE, 1 [place] injection 4 00 :00 dose, [facility] Med ical mg 02/07/20 Branch at 1630, L[place] morpHINE 2019-04 2020- No 4mg 4 mg, Slow Un carol injection 4 02-06 IV Push, ity of mg 21:30: 20:30 ONCE, 1 [place] 00 :00 dose, [facility] Medical 02/07/20 Branch at 1630, STAT morpHINE 2019-04 2020- No 4mg 4 mg, Slow Un carol injection 4 0-14 01-24 IV Push, ity of mg 02:15: 01:13 ONCE, 1 [place] 00 :00 dose, [facility] Medical 01/24/20 Branch at 2115, STAT [...] ity of (PF)) 01:00: 23:47 ONCE, 1 [place] injection 4 00 :00 dose, [facility] Med ical mg 01/24/20 Branch at 1999, L[place] morpHINE 2019-04 2020- No 4mg 4 mg, Slow Un carol injection 4 0-14 10-13 IV Push, ity of mg 01:00: 23:47 ONCE, 1 [place] 00 :00 dose, Tue Medical 01/24/20 Branch at 2000, STAT iohexol 2019-04 2020- No 120mL 120 mL, Unive rs (OMNIPAQUE 0-13 10-13 Intravenou it y of 350 23:45: 23:45 s, ONCE, 1 [place] BULK-150 00 :00 dose, Tue Medica l mL) 01/24/20 Branch injection at 1845, 120 mL Routine zolpidem 2019-04 Yes 10mg Take 10 mg Uni vers (AMBIEN) 10 0-13 by mouth ity of mg tablet 22:12: at [place] [address] bedtime. Medical Branch FLUoxetine 2019-04 Yes 80mg Take 80 mg U nivers (PROZAC) 40 0-13 by mouth ity of mg capsule 22:12: daily. [place] [address] Medical Branch ARIPiprazol 2019-04 Yes 5mg Take [...] tablet by ity o f 00:00: mouth [place] 00 every 6 Medical (six) Branch hours as needed for Pain (scale 4-6). Indication s: acute pain ondansetron 2019- Yes [id number] 8mg Take 2 Univers 4 mg tablet 0-13 tablets by it y of 00:00: mouth every 8 Medical (eight) Branch hours as needed for Nausea and Vomiting (N/V). ondansetron 2019-04 Yes [id number] 8mg Take 2 Univers 4 mg tablet 0-13 tablets by it y of 00:00: mouth every 8 Medical (eight) Branch hours as needed for Nausea and Vomiting (N/V). ondansetron 2019-04 Yes [id number] 8mg Take 2 Univers 4 mg tablet 0-13 tablets by it y of 00:00: mouth [place] 00 every 8 Medical (eight) Branch hours as needed for Nausea and Vomiting (N/V). ondansetron 2019-1 Yes [id number] 8mg Take 2 Univers 4 mg tablet 0-13 tablets by it y of 00:00: mouth 00 every 8 Medical (eight) Branch hours as needed for Nausea and Vomiting (N/V). ondansetron 2019- Yes [id number] 8mg Take 2 Univers 4 mg tablet 0-13 tablets by it y of 00:00: mouth 00 every 8 Medical (eight) Branch hours as needed for Nausea and Vomiting (N/V). ondansetron 2020-1 Yes [id number] 8mg Take 2 Univers 4 mg tablet 0-13 tablets by it y of 00:00: mouth 00 every 8 Medical (eight) Branch hours as needed for Nausea and Vomiting (N/V). ondansetron 2019- Yes [id number] 8mg Take 2 Univers 4 mg tablet 0-13 tablets by it y of 00:00: mouth [place] 00 every 8 Medical (eight) Branch hours as needed for Nausea and Vomiting (N/V). ondansetron 2019-04 Yes [id number] 8mg Take 2 Univers 4 mg tablet 0-13 tablets by it y of 00:00: mouth [place] 00 every 8 Medical (eight) Branch hours as needed for Nausea and Vomiting (N/V). ondansetron 2019-04 Yes [id number] 8mg Take 2 Univers 4 mg tablet 0-13 tablets by it y of 00:00: mouth [place] 00 every 8 Medical (eight) Branch hours as needed for Nausea and Vomiting (N/V). ondansetron 2019-04 Yes [id number] 8mg Take 2 Univers 4 mg tablet 0-13 tablets by it y of 00:00: mouth [place] 00 every 8 Medical (eight) Branch hours as needed for Nausea and Vomiting (N/V). ciprofloxac 2019-04 Yes [id number] 500mg Take 1 Univers in HCl 500 [...] Indication s: acute pain ondansetron 2019-04 Yes [id number] 8mg Take 2 Univers 4 mg tablet [...] Indication s: acute pain ciprofloxac 2019-04- No [id number] 500mg Take 1 Univers in HCl 500 0-13 10-28 tablet by ity of mg tablet 00:00: 00:00 mouth 2 [place] 00 :00 (two) Medical times Branch daily. dicyclomine 2019- No 20mg 20 mg, Uni vers (BENTYL) 2-20 02-20 Intramuscu ity of injection 20:45: 20:08 lar, ONCE, [place] 20 mg 00 :00 1 dose, Medical [place] Branch 06/02/19 at 1445, Routine ondansetron 2019-2019- No 4mg 4 mg, Slow Univers (ZOFRAN [...] No 120mL 120 mL, Unive rs (OMNIPAQUE -20 -20 Intravenou it y of 350 18:37: 18:35 s, ONCE, 1 [place] BULK-150 00 :00 dose, Consuelo Medica l mL) 06/02/19 at Branch injection 1300, 120 mL Routine NaCl 0.9% 2019- No 1000mL at 999 Uni vers (NS) bolus 2-20 02-20 mL/hr, ity of infusion 17:30: 19:11 1,000 mL, [place] as 1,000 mL 00 :00 IV Medical Infusion, Branch ONCE, 1 dose, Consuelo 06/02/19 at 1130, LORENE dicyclomine 2020-0 Yes [id number] 10mg Take 1 Univers (BENTYL) 10 2-20 capsule by it y of mg capsule 00:00: mouth [place] (four) Medical times Branch daily as needed for Abdominal pain. dicyclomine 2020-0 Yes [id number] 10mg Take 1 Univers (BENTYL) 10 2-20 capsule by it y of mg capsule 00:00: [place] (four[place] Medical times Branch daily as needed for Abdominal pain. dicyclomine 2020-0 2020- No [id number] 10mg Take 1 Univers (BENTYL) 10 2-20 10-13 capsule by i ty of mg capsule 00:00: 00:00 mouth 4 [place] 00 :00 (four) Medical times Branch daily as needed for Abdominal pain. traMADol 2018-0 Yes [id number] 50mg Take 1 Univers (ULTRAM) 50 9-28 [id number] tablet by i ty of mg tablet 00:00: mouth [place] 00 every 8 Medical (eight) Branch hours as needed for Pain (scale 4-6). traMADol 2018- Yes [id number] 50mg Take 1 Univers (ULTRAM) 50 9-28 [id number] tablet by i ty of mg tablet 00:00: mouth [place] 00 every 8 Medical (eight) Branch hours as needed for Pain (scale 4-6). traMADol 2018- 2020- No [id number] 50mg Take 1 Univers (ULTRAM) 50 9-28 10-13 [id number] tablet by ity of mg tablet 00:00: 00:00 mouth [place] 00 :00 every 8 Medical (eight) Branch hours as needed for Pain (scale 4-6). nebivolol Yes Take by Unive rs HCl 9-26 mouth ity of (BYSTOLIC 20:20: daily. [place] ORAL) Medical Branch zolpidem Yes 10mg Take 10 mg Uni vers (AMBIEN) 10 9-26 by mouth ity of mg tablet 20:20: at [place] [address] bedtime. Medical Branch HYDROcodone Yes 1{tbl} Take [...] mouth ity of tablet 20:20: at bedtime [place] [address] as needed Medical for Branch Itching or Anxiety. nebivolol Yes Take by Unive rs HCl 9-26 mouth ity of (BYSTOLIC 20:20: daily. [place] ORAL) Medical Branch zolpidem Yes 10mg Take 10 mg Uni vers (AMBIEN) 10 9-26 by mouth ity of mg tablet 20:20: at [place] [address] bedtime. Medical Branch HYDROcodone Yes 1{tbl} Take 1 Un carol -acetaminop - tablet by ity of hen 7.5-325 20:20: mouth 2 [place] as mg per (two) Medical tablet times Branch daily. FLUoxetine Yes 60mg Take 60 mg U nivers (PROZAC) 40 - by mouth ity of mg capsule 20:20: daily. [place] [facility] ARIPiprazol Yes 5mg Take 5 mg U nivers e (ABILIFY) 01-06 by mouth ity of 5 mg tablet 20:20: [place]. [place] hydrOXYzine Yes 25mg Take 25 mg Univers 25 mg 01-06 by mouth ity of tablet 20:20: at bedtime [place] [address] as needed Medical for Branch Itching or Anxiety. nebivolol Yes Take by Unive rs HCl 01-06 mouth ity of (BYSTOLIC 20:20: daily. [place] ORAL) Medical Branch Abilify Abilify No Abilify [...] Systolic blood 2022-09-15 17:00:00 107 mm[Hg] Univer [facility] Diastolic blood 2022-09-15 17:00:00 79 mm[Hg] [facility] Heart rate 2022-09-15 17:00:00 86 /min [facility] Respiratory rate 2022-09-15 17:00:00 16 /min [facility] Oxygen saturation in 2022-09-15 17:00:00 100 /min [facility] Arterial blood by [facility] Pulse oximetry Branch Body temperature 2022-09-15 13:03:00 36.61 Elodia [facility] Body weight 2022-09-15 13:03:00 79.379 kg [facility] BMI 2022-09-15 13:03:00 32.01 kg/m2 [facility] Systolic blood 2022-07-03 15:56:00 117 mm[Hg] [facility] Diastolic blood 2022-07-03 15:56:00 78 mm[Hg] [facility] Heart rate 2022-07-03 15:56:00 77 /[facility] Body height 2022-07-03 15:56:00 157.5 cm [facility] Body weight 2022-07-03 15:56:00 83.915 [facility] BMI 2022-07-03 15:56:00 33.84 kg/m2 [facility] WEIGHT 2021-10-15 11:42:00 83.915 kg HEIGHT 2021-10-15 11:42:00 157.5 cm WEIGHT 2021-10-15 11:42:00 83.915 kg HEIGHT 2021-10-15 11:42:00 157.5 cm BP Diastolic 2020-08-24 00:00:00 90 mm[Hg] Ting Mauricio edjunior Height 2020-08-24 00:00:00 62 [in_i] Ting rosado BMI (Body Mass 2020-08-24 00:00:00 32 kg/m2 [facility] Index) BP Systolic 2020-08-24 00:00:00 124 mm[Hg] Ting rosado Body Weight 2020-08-24 00:00:00 175 [lb_av] Ting rosado Heart rate 2020-07-23 19:30:00 75 /min Universi ty of [facility] Oxygen saturation in 2020-07-23 19:30:00 100 /min University of Arterial blood by [facility] Pulse oximetry Branch Systolic blood 2020-07-23 18:00:00 142 mm[Hg] Univer sity of pressure [facility] Diastolic blood 2020-07-23 18:00:00 97 mm[Hg] Unive rsity of pressure [facility] Respiratory rate 2020-07-23 18:00:00 20 /min Univ ersity of [facility] Body temperature 2020-07-23 16:37:00 37.11 Elodia [facility] Body height 2020-07-23 16:37:00 157.5 cm Universi ty [facility] Body weight 2020-07-23 16:37:00 79.379 kg Universi ty [facility] BMI 2020-07-23 16:37:00 32.01 kg/m2 Universi ty [facility] Heart rate 2020-07-23 19:30:00 75 /min Universi ty [facility] Oxygen saturation in 2020-07-23 19:30:00 100 /min University of Arterial blood by [facility] Pulse oximetry Branch Systolic blood 2020-07-23 18:00:00 142 mm[Hg] Univer sity of pressure [facility] Diastolic blood 2020-07-23 18:00:00 97 mm[Hg] Unive rsity of pressure [place] [facility] Respiratory rate 2020-07-23 18:00:00 20 /min Univ ersity of [place] [facility] Body temperature 2020-07-23 16:37:00 37.11 Elodia Univ ersity [facility] [place] [facility] Body height 2020-07-23 16:37:00 157.5 cm Universi ty [facility] [place] [facility] Body weight 2020-07-23 16:37:00 79.379 kg [facility]i ty [facility] [place] [facility] BMI 2020-07-23 16:37:00 32.01 kg/m2 [facility] [place] [facility] Systolic blood 2020-04-27 23:25:00 112 mm[Hg] Univer sity of pressure [place] [facility] Diastolic blood 2020-04-27 23:25:00 87 mm[Hg] Unive rsity of pressure [place] [facility] Heart rate 2020-04-27 23:25:00 78 /min Universi ty [facility] [place] [facility] Respiratory rate 2020-04-27 23:25:00 18 /min Univ ersity of [place] [facility] Oxygen saturation in 2020-04-27 23:25:00 99 /min University of Arterial blood by [email or web address] [email or web address] Pulse oximetry Branch Body temperature 2020-04-27 17:24:00 37.06 Elodia Univ ersity [facility] [place] [facility] Body height 2020-04-27 17:24:00 157.5 cm Universi ty [facility] [place] [facility] Body weight 2020-04-27 17:24:00 77.111 kg [facility]i ty [facility] [place] [facility] BMI 2020-04-27 17:24:00 31.09 kg/m2 [facility]i ty [facility] [place] [facility] Systolic blood 2020-04-27 23:25:00 112 mm[Hg] Univer sity of pressure [place] [facility] Diastolic blood 2020-04-27 23:25:00 87 mm[Hg] Unive rsity of pressure [place] [facility] Heart rate 2020-04-27 23:25:00 78 /min [facility]i ty [facility] [place] [facility] Respiratory rate 2020-04-27 23:25:00 18 /min Univ ersity of [place] [facility] Oxygen saturation in 2020-04-27 23:25:00 99 /min University of Arterial blood by [employer] Pulse oximetry Branch Body temperature 2020-04-27 17:24:00 37.06 Elodia Univ ersity of [place] [facility] Body height 2020-04-27 17:24:00 157.5 cm [facility]i ty [facility] [place] [facility] Body weight 2020-04-27 17:24:00 77.111 kg [facility]i ty [facility] [place] [facility] BMI 2020-04-27 17:24:00 31.09 kg/m2 [facility] ty [facility] [place] [facility] Systolic blood 2020-02-08 16:45:00 114 mm[Hg] Univer sity of pressure [place] [facility] Diastolic blood 2020-02-08 16:45:00 84 mm[Hg] Unive rsity of pressure [place] [facility] Heart rate 2020-02-08 16:45:00 80 /min Universi ty [facility] [place] [facility] Body temperature 2020-02-08 16:45:00 36.06 Elodia Univ ersity of [place] [facility] Respiratory rate 2020-02-08 16:45:00 20 /min Univ ersity of [place] [facility] Oxygen saturation in 2020-02-08 16:45:00 96 /min University of Arterial blood by [place] [email or web address] Pulse oximetry Branch Body height 2020-02-08 00:37:00 152.4 cm [facility]i ty [facility] [place] [facility] Body weight 2020-02-08 00:37:00 78.019 kg [facility]i ty [facility] [place] [facility] BMI 2020-02-08 00:37:00 33.59 kg/m2 [facility] [place] [facility] Systolic blood 2020-02-08 16:45:00 114 mm[Hg] Univer sity of pressure [place] [facility] Diastolic blood 2020-02-08 16:45:00 84 mm[Hg] Unive rsity of pressure [place] [facility] Heart rate 2020-02-08 16:45:00 80 /min [facility]i ty [facility] [place] [facility] Body temperature 2020-02-08 16:45:00 36.06 Elodia Univ ersity of [place] [facility] Respiratory rate 2020-02-08 16:45:00 20 /min Univ ersity of [place] [facility] Oxygen saturation in 2020-02-08 16:45:00 96 /min University of Arterial blood by [place] [email or web address] Pulse oximetry Branch Body height 2020-02-08 00:37:00 152.4 cm Universi ty [facility] [place] [facility] Body weight 2020-02-08 00:37:00 78.019 kg [facility]i ty [facility] [place] [facility] BMI 2020-02-08 00:37:00 33.59 kg/m2 [facility]i ty [facility] [place] [facility] Systolic blood 2020-01-25 02:00:00 134 mm[Hg] Univer sity of pressure [place] [facility] Diastolic blood 2020-01-25 02:00:00 94 mm[Hg] Unive rsity of pressure [place] [facility] Heart rate 2020-01-25 02:00:00 83 /min Universi ty [facility] [place] [facility] Oxygen saturation in 2020-01-25 02:00:00 96 /min University of Arterial blood by [place] [email or web address] Pulse oximetry Branch Respiratory rate 2020-01-25 01:00:00 16 /min Univ ersity of [place] [facility] Body temperature 2020-01-24 22:09:00 37.11 Elodia Univ ersity [facility] [place] [facility] Body height 2020-01-24 22:09:00 157.5 cm Universi ty [facility] [place] [facility] Body weight 2020-01-24 22:09:00 78.336 kg [facility]i ty [facility] [place] [facility] BMI 2020-01-24 22:09:00 31.59 kg/m2 [facility] ty [facility] [place] [facility] Systolic blood 2020-01-25 02:00:00 134 mm[Hg] Univer sity of pressure [place] [facility] Diastolic blood 2020-01-25 02:00:00 94 mm[Hg] Unive rsity of pressure [place] [facility] Heart rate 2020-01-25 02:00:00 83 /min Universi ty [facility] [place] [facility] Oxygen saturation in 2020-01-25 02:00:00 96 /min University of Arterial blood by [place] [email or web address] Pulse oximetry Branch Respiratory rate 2020-01-25 01:00:00 16 /min Univ ersity of [place] [facility] Body temperature 2020-01-24 22:09:00 37.11 Elodia Univ ersity [facility] [place] [facility] Body height 2020-01-24 22:09:00 157.5 cm Universi ty [facility] [place] [facility] Body weight 2020-01-24 22:09:00 78.336 kg [facility]i ty [facility] [place] [facility] BMI 2020-01-24 22:09:00 31.59 kg/m2 [facility]i ty [facility] [place] [facility] Systolic blood 2019-06-02 19:00:00 126 mm[Hg] Univer sity of pressure [place] [facility] Diastolic blood 2019-06-02 19:00:00 81 mm[Hg] Unive rsity of pressure [place] [facility] Heart rate 2019-06-02 19:00:00 86 /min [facility]i ty [facility] [place] [facility] Respiratory rate 2019-06-02 19:00:00 17 /min Univ ersity of [place] [facility] Oxygen saturation in 2019-06-02 19:00:00 96 /min University of Arterial blood by [facility] Pulse oximetry Branch Body temperature 2019-06-02 17:14:00 36.61 Elodia Univ ersity of [place] [facility] [place] Body height 2019-06-02 17:14:00 157.5 cm Universi ty of [place] [facility] [place] Body weight 2019-06-02 17:14:00 74.844 kg [facility]i ty [facility] [place] [facility] BMI 2019-06-02 17:14:00 30.18 kg/m2 [facility] ty [facility] [place] [facility] Systolic blood 2019-06-02 19:00:00 126 mm[Hg] Univer sity of pressure [place] [facility] [place] Diastolic blood 2019-06-02 19:00:00 81 mm[Hg] Unive rsity of pressure [place] [facility] [place] Heart rate 2019-06-02 19:00:00 86 /min [facility]i ty [facility] [place] [facility] Respiratory rate 2019-06-02 19:00:00 17 /min Univ ersity of [place] [facility] Oxygen saturation in 2019-06-02 19:00:00 96 /min University of Arterial blood by [facility] Pulse oximetry Branch Body temperature 2019-06-02 17:14:00 36.61 Elodia Univ ersity of [place] [facility] [place] Body height 2019-06-02 17:14:00 157.5 cm [facility]i ty [facility] [place] [facility] Body weight 2019-06-02 17:14:00 74.844 kg [facility]i ty [facility] [place] [facility] BMI 2019-06-02 17:14:00 30.18 kg/m2 [facility] [place] [facility] Systolic blood 2021-10-15 17:34:00 121 mm[Hg] [facility] Diastolic blood 2021-10-15 17:34:00 69 mm[Hg] [facility] Heart rate 2021-10-15 17:34:00 68 /min [facility] Respiratory rate 2021-10-15 17:34:00 18 /min [facility] Oxygen saturation in 2021-10-15 17:34:00 100 /min [facility] Arterial blood by Medical Ce nter Pulse oximetry Body temperature 2021-10-15 11:42:00 36.83 Elodia [facility] Body height 2021-10-15 11:42:00 157.5 cm [facility] Body weight 2021-10-15 11:42:00 83.915 kg [facility] BMI 2021-10-15 11:42:00 33.84 kg/m2 [facility] Procedures Procedure Date / Time Performing Clinician Source Performed CT ANGIOGRAM 2022-09-15 14:32:00 Lisa [facility] ABDOMEN/PELVIS Medical Branch LIPASE 2022-09-15 13:30[facility] 2022-09-15 13:30:00 Caitie Shipley [facility] ([id number]) (ALB,T.PRO,BILI Medical Branch T,BU/BC,ALT,AST,ALK PHOS) BASIC METABOLIC PANEL 2022-09-15 13:30:00 Caitie Shipley [facility] (NA, K, CL, CO2, Medical Branch GLUCOSE, BUN, CREATININE, CA) CBC WITH DIFF 2022-09-15 13:30:00 Lisa [facility] URINALYSIS 2022-09-15 13:30:00 [facility] POCT TEST 2022-09-15 13:30:00 Caitie Shipley [facility] CONSENT/REFUSAL FOR 2022-09-15 12:57:18 Doctor Unassigned, No [facility] CT BRAIN WITHOUT IV 2021-10-15 12:42:00 Elise Rice [facility] PHYSICIAN ORDERS 2021-08-13 05:01:00 Doctor Unassigned, No [facility] Medical [place] ASSIGNMENT OF BENEFITS 2021-07-16 14:15:53 Doctor Unassigned, No [facility] ASSIGNMENT OF BENEFITS 2021-06-18 14:59:31 Doctor Unassigned, No [facility] ULTRASOUND OF PELVIS 2020-08-24 00:00:00 [facility] US OVARY TORSION 2020-07-23 19:10:[facility] PELVIS W 2020-07-23 17:15:00 Megan Lyons [facility] CONTRAST [facility] HEPATIC FUNCTION PANEL 2020-07-23 16:49:00 Vikas [facility] ([id number]) (ALB,T.PRO,BILI Medical Branch T,BU/BC,ALT,AST,ALK PHOS) BASIC METABOLIC PANEL 2020-07-23 16:49:00 Vikas [facility] (NA, K, CL, CO2, Medical Branch GLUCOSE, BUN, CREATININE, CA) CBC WITH DIFF 2020-07-23 16:49:00 Vikas [facility] URINALYSIS 2020-07-23 16:49:00 Lyons [facility] POCT TEST 2020-07-23 16:48:00 Megan Lyons [facility] NOTICE OF PRIVACY 2020-07-23 16:32:51 Doctor Unassigned, No [facility] CONSENT/REFUSAL FOR 2020-07-23 16:32:01 Doctor Unassigned, No Un iversity [facility] DIAGNOSIS AND TREATMENT [facility] CT HEAD WO CONTRAST 2020-04-27 19:40:14 Ann Cardozo [facility] TROPONIN I 2020-04-27 18:41:00 Ann Cardozo [facility] BASIC METABOLIC PANEL 2020-04-27 18:41:00 Ann Cardozo [facility] (NA, K, CL, CO2, Medical Branch GLUCOSE, BUN, CREATININE, CA) CBC WITH DIFF 2020-04-27 18:41:00 Ann Cardozo [facility] HB ECG ROUTINE & RHYTHM 2020-04-27 17:58:58 Ann Cardozo [facility] NOTICE OF PRIVACY 2020-04-27 17:21:19 Doctor Unassigned, No [facility] FOR 2020-04-27 17:21:03 Doctor Unassigned, No Un [facility] [place] DIAGNOSIS AND TREATMENT Name Medical Branch TROPONIN I 2020-02-08 10:03:[address] [facility] BASIC METABOLIC PANEL 2020-02-08 10:03:00 Ruby Ovallesherine [facility] (NA, K, CL, CO2, Medical Branch GLUCOSE, BUN, CREATININE, CA) CBC WITH DIFF 2020-02-08 10:03:[address] [facility] TROPONIN I 2020-02-08 04:27:[address] [facility] COVID-19 (ID NOW RAPID 2020-02-07 22:40:00 [facility]) Medical Branch MAGNESIUM 2020-02-07 22:22:[address] [facility] TROPONIN I 2020-02-07 22:22:00 [facility] THYROID STIMULATING 2020-02-07 22:22:00 Josr [facility] HORMONE [facility] LIPID PANEL 2020-02-07 22:22:00 Josr [facility] ([id number])(TOTAL Medical Branch CHOLESTEROL, TRIGLYCERIDES, HDL) CT ABDOMEN PELVIS W 2020-02-07 21:28:[address] [facility] CONTRAST [facility] Branch CT CHEST PULMONARY 2020-02-07 21:28:[address] [facility] ANGIOGRAM Medical Branch XR CHEST 1 VW 2020-02-07 20:36:36 Travis Angelo [facility] POCT TEST 2020-02-07 20:03:[address] [facility] Medical [place] URINALYSIS 2020-02-07 20:02:00 Travis Angelo [facility] LIPASE 2020-02-07 19:58:00 Travis [facility] [place] [facility] TROPONIN I 2020-02-07 19:58:00 [facility] HEPATIC FUNCTION PANEL 2020-02-07 19:58:00 Angelo Robles [facility] ([id number]) (ALB,T.PRO,BILI Medical Branch T,BU/BC,ALT,AST,ALK PHOS) BASIC METABOLIC PANEL 2020-02-07 19:58:00 Angelo Robles [facility] (NA, K, CL, CO2, Medical Branch GLUCOSE, BUN, CREATININE, [place]) CBC WITH DIFF 2020-02-07 19:58:00 Angelo Robles [facility] PROTHROMBIN TIME / INR 2020-02-07 19:58:00 Angelo Robles [facility] ACTIVATED PARTIAL 2020-02-07 19:58:00 Angelo Robles [facility] THRMPLAS GLORY [facility] N-TERMINAL PRO-BNP 2020-02-07 19:58:00 Angelo Robles [facility] HB ECG ROUTINE & RHYTHM 2020-02-07 19:51:07 Angelo Robles [facility] CONSENT/REFUSAL FOR 2020-02-07 19:42:57 Doctor Unassigned, No [facility] Name [facility] Branch CT ABDOMEN PELVIS W 2020-01-24 23:32:59 Mark Armijo [facility] POCT TEST 2020-01-24 23:22:00 Mark Armijo [facility] LIPASE 2020-01-24 22:41:00 Mark Armijo [facility] COMP. METABOLIC PANEL 2020-01-24 22:41:00 Mark Armijo [facility] ([id number]) [facility] CBC WITH DIFF 2020-01-24 22:41:00 Mark Armijo [facility] URINALYSIS 2020-01-24 22:41:00 Mark Armijo [facility] NOTICE OF PRIVACY 2020-01-24 22:03:28 Doctor Unassigned, No [facility] PRACTICES [facility] CONSENT/REFUSAL FOR 2020-01-24 22:03:15 Doctor Unassigned, No [facility] Name [facility] CT ABDOMEN PELVIS W 2019-06-02 18:46:40 Candido Ramirez [facility] Branch POCT TEST 2019-06-02 17:48:00 Candido Ramirez [facility] LIPASE 2019-06-02 17:47:00 Candido Ramirez [facility] COMP. METABOLIC PANEL 2019-06-02 17:47:00 Candido Ramirez [facility] ([id number]) Medical Branch CBC WITH DIFFERENTIAL 2019-06-02 17:47:00 Candido Ramirez [facility] URINALYSIS 2019-06-02 17:47:00 Candido Ramirez [facility] CONSENT/REFUSAL FOR 2019-06-02 17:08:56 Doctor Unassigned, No Un [facility] DIAGNOSIS AND TREATMENT Name Medical Branch Gi Tract Capsule 2017-11-10 00:00:00 [facility] Tubal L[facility] Caesarean Section [facility] Plan of Care Planned Activity Planned [...] Medica l Center cervix (procedure) [code = 130563132] Future Scheduled [address] [facility] 00:00:00 malignant neoplasm of Medica l Center cervix (procedure) [code = 104202835] Future Scheduled [address] [facility] Test 00:00:00 malignant neoplasm of Medica l Center cervix (procedure) [code = 456512854] Future Scheduled [address] [facility] Test 00:00:00 malignant neoplasm of Medica l Center cervix (procedure) [code = 719587688] Future Scheduled [address] [facility] Test 00:00:00 malignant neoplasm of Medica l Center cervix (procedure) [code = 488437299] Future Scheduled [address] [facility] Test 00:00:00 malignant neoplasm of Medica l Center cervix (procedure) [code = 892009209] Future Scheduled [address] [facility] Test 00:00:00 (procedure) [code = [facility] 60908971] Future Scheduled [address] [facility] Test 00:00:00 (procedure) [code = [facility] 88122485] Future Scheduled [address] [facility] Test 00:00:00 (procedure) [code = [facility] 13198812] Future Scheduled [address] [facility] Test 00:00:00 (procedure) [code = [facility] 17323311] Future Scheduled [address] [facility] Test 00:00:00 (procedure) [code = [facility] 85137711] Future Scheduled [address] [facility] Test 00:00:00 (procedure) [code = [facility] 14353571] Future Scheduled 1999-10-09 DTAP/TDAP/TD VACCINES CH I [...] Type Clinicians Facility Department ID 2022-08-16 Outpatient [facility] [id number] [place] 15:19:06 [id number] [facility] 2022-07-03 Outpatient [facility] [id number] [place] 10:37:25 [id number] [facility] 2022-07-02 Outpatient [facility] [id number] [place] 15:48:54 [id number] [facility] 2022-04-02 Outpatient [facility] [id number] [place] 13:15:41 [id number] [facility] 2021-02-10 Emergency [facility] [id number] Univers 12:15:04 ity [facility] 2021-02-09 Emergency [facility] [id number] Univers 17:33:49 ity [facility] 2021-02-09 Emergency [facility] [id number] Univers 01:23:23 ity [facility] 2021-02-08 Emergency [facility] [id number] Univers 22:46:53 ity [facility] 2022-09-15 2022-09-15 Emergency X LISA, [facility] ERT [id number] Univers 08:09:00 13:17:00 CYNISE ity [facility] 2022-09-15 2022-09-15 Emergency Lisa, [facility] [id number] Univers 08:09:00 13:17:00 Caitie FERGUSON [id number] i ty [facility] [id number] [facility] [id number] [place] [id number] Branch 2022-08-25 2022-08-25 Outpatient [facility] [id number] [place] 13:45:00 13:45:00 ANGEL [facility] 2022-07-03 2022-07-03 Office [facility] [id number] [place] 10:45:00 10:45:00 Visit ANGEL NAGEL [id number] [place] [id number] 2022-05-21 2022-05-21 Outpatient [facility]IL[facility]ERT [facility] [id number] [place] 09:30:00 09:30:00 ANGEL [facility] 2021-10-15 2021-10-15 Emergency ER JAGJIT, [facility] [id number] [facility] 14:24:00 17:37:00 ELISE 2021-10-15 2021-10-15 Emergency Jagjit, [facility] [id number] [facility] [address] 14:24:00 17:37:00 [facility] 2021-10-15 2021-10-15 Travel [facility] [id number] [facility] 00:00:00 00:00:00 [facility] 2021-08-13 2021-08-13 Commercial Field Inspector Luis, Adc Lab Main [facility] 1.2.8 40.114 [id number] Univers 12:15:00 12:30:00 Visit Ariel Britt 350.1.13.1 0 ity of [place] [id number] Mn dical NAL 353 [facility] 2021-08-13 2021-08-13 [facility] [id number] Univers 12:15:00 12:15:00 ARIEL ity [facility] 2021-08-13 2021-08-13 Orders Doctor STALEY 1.2.840.114 [id number] Univers 00:00:00 00:00:00 Only Unassigned, SHARON 350.1.13.10 [place] [facility] 4.2.7.2.686 Craig as [phone] [address] 2021-07-16 2021-07-16 Commercial Field Inspector Luis, Adc Lab Main [facility] 1.2.8 40.114 [id number] Univers 09:30:00 09:45:00 Visit Paul Sams 350.1.13.10 ity of [place] [id number] Mn dical NAL 353 [facility] 2021-07-16 2021-07-16 [facility]patient [facility] [id number] Univers 09:30:00 09:30:00 PAUL feliciano [facility] 2021-07-16 2021-07-16 Orders Doctor LUÍS 1.2.840.114 [id number] Univers 00:00:00 00:00:00 Only Unassigned, SHARON 350.1.13.10 [place] [facility] 4.2.7.2.686 Craig as [phone] [address] 2021-06-18 2021-06-18 Outpatient [facility] [id number] Univers 08:45:00 10:27:48 PAUL feliciano [facility] 2021-06-18 2021-06-18 Commercial Field Inspector Luis, Radha Lab Main [facility] 1.2.8 40.114 [id number] Univers 08:45:00 09:00:00 Visit Paul Sams 350.1.13.10 ity [facility] [place] [phone] [address] 2021-06-18 2021-06-18 Orders Doctor LUÍS 1.2.840.114 [id number] Univers 00:00:00 00:00:00 Only Unassigned, SHARON 350.1.13.10 ity of [place] [facility] 4.2.7.2.686 [place] as [phone] [address] 2020-08-24 2020-08-24 Outpatient KAREN_ PRIV PRIV [id number] [facility] 02:56:00 02:56:00 Ludwin [id number] Medic al 2020-08-24 2020-08-24 Outpatient TAYLOR Pierce PRIV [id number] 1-2 00:00:00 00:00:00 Alex [id number] Jay [id number] 2020-08-24 2020-08-24 Alex VAZQUEZ [place] - [facility] 14 [facility] 00:00:00 00:00:00 Jay [facility] Medic KAREN Colmenares_ : [address], [address], [place] [phone] , Ph. 2020-07-23 2020-07-23 Emergency Lyons, [facility] 1.2.840.114 [id number] 11:40:00 15:16:00 Megan Edward 350.1.13.10 [place] 4.2.7.2.686 [place] [id number] [facility] 2020-07-23 2020-07-23 Emergency Lyons, [facility] 1.2.840.114 [id number] [facility] 11:40:00 15:16:00 Megan [place] 350.1.13.10 i ty of [place] 4.2.7.2.686 [facility] [id number] [address] 2020-04-27 2020-04-27 Emergency Levi, [facility] 1.2.840.114 [id number] 11:25:00 18:21:00 Ann Leon 350.1.13.10 [place] 4.2.7.2.686 [place] [id number] [facility] 2020-04-27 2020-04-27 Emergency Levi, [facility] 1.2.840.114 [id number] [facility] 11:25:00 18:21:00 Ann Leon 350.1.13.10 ity of [place] 4.2.7.2.686 [facility] [phone] [place] [address] [place] 2020-02-07 2020-02-08 Emergency Angelo Robles [facility] 1.2.840. 114 [id number] 14:46:00 14:26:00 Naun Bush 350.1.13.10 [place] 4.2.7.2.686 [place] [id number] [facility] 2020-02-07 2020-02-08 Emergency Angelo Robles [facility] 1.2.840. 114 [id number] [facility] 14:46:00 14:26:00 Naun Bush 350.1.13.10 ity of [place] 4.2.7.2.686 [facility] [id number] [place] [address] [place] 2020-01-24 2020-01-[address] [facility] 1.2.857.985 [id number] 17:12:00 21:15:00 Mark Dewitt [place] 350.1.13.10 [place] 4.2.7.2.686 [place] [phone] [facility] 2020-01-24 2020-01-[address] [facility] 1.2.660.053 [id number] Univers 17:12:00 21:15:00 Mark Dewitt [place] 350.1.13.10 i ty of [place] 4.2.7.2.686 [facility] [id number] [address] 2020-01-24 2020-01-24 Orders Doctor LUÍS 1.2.840.114 [id number] 00:00:00 00:00:00 Only Unassigned, SHARON 350.1.13.10 [place] [facility] 4.2.7.2.68 [phone] [facility] 2020-01-24 2020-01-24 Orders Doctor LUÍS 1.2.840.114 [id number] [facility] 00:00:00 00:00:00 Only Unassigned, SHARON 350.1.13.10 ity of [place] [facility] 4.[address].7.[address] [place] [id number] 2019-06-02 2019-06-02 Emergency [facility] 1.2.840.114 [id number] 11:18:34 14:43:00 Candido B [place] 350.1.13.10 [place] [address] [place] [address] [phone] [facility] 2019-06-02 2019-06-02 Emergency [facility] 1.2.840.114 [id number] Univers 11:18:34 14:43:00 Candido B [place] [address] 350.1.13.10 i ty of [place] 4.2.7.2.[address] [place] [phone] 2019-06-02 2019-06-02 Emergency X [facility] ERT [id number] Univers 11:18:34 14:43:00 CANDIDO ity of [facility] Results Test Description Test Time Test Comments Results Result Comments Source BASIC METABOLIC PANEL (NA, K, CL, CO2, GLUCOSE, BUN, 2022-09 14:12:52 CREATININE, CA) Test Item Value Reference Range Interpretation Comme nts NA (test code = 8047593001) 140 mmol/L 135-145 K (test code = 7755411803) 4.2 mmol/L 3.5-5.0 CL (test code = 8292011917) 104 mmol/L 98-108 CO2 TOTAL (test code = 8838572388) 21 mmol/L 23-31 L AGAP (test code = 4008116949) 15 2-16 BUN (test code = 5241684998) 11 mg/dL 7-23 GLUCOSE (test code = 9802885195) 125 mg/dL 70-110 H CREATININE (test code = 0.81 mg/dL 0.50-1.04 6610609812) CALCIUM (test code = 2032992376) 10.4 mg/dL 8.6-10.6 eGFR (test code = 5488947590) 77.9 mL/min/1.73m2 JOSH (test code = JOSH) [...] tests). Lab Interpretation (test code = Abnormal 98827-3) [facility]43537[facility] (ALB,T.PRO,BILI T,BU/BC,ALT,AST,ALK PHOS)2022-09-15 14:12:52 Test Item Value Reference Range Interpretation Comments TOTAL BILI (test code = 8072074991) 0.5 mg/dL 0.1-1.1 BILI UNCON (test code = 8777221053) 0.3 mg/dL 0.1-1.1 BILI CONJ (test code = 2816916811) 0.0 mg/dL 0.0-0.3 T PROTEIN (test code = 9609901711) 7.7 g/dL 6.3-8.2 ALBUMIN (test code = 8867328736) 4.9 g/dL 3.5-5.0 ALK PHOS (test code = 4176737190) 100 U/L 34-122 ALTv (test code = 1742-6) 29 U/L 5-35 AST(SGOT) (test code = 5348130939) 28 U/L 13-40 Lab Interpretation (test code = Normal 63133-6) [facility]2023-[facility] 14:12:52 Test Item Value Reference Range Interpretation Comments LIPASE (test code = 0513884167) 137 U/L 0-220 Lab Interpretation (test code = Normal 28623-3) [facility] CenterCBC WITH [id number] 13:49:51 Test Item Value Reference Range Interpretation Comments WBC (test code = 10.62 See_Comment [Automated 3368-2) message] The sy stem which generated this result transmitted reference range : 4.30 - 11.10 10*3/?L. The reference range was not used to interpret this result as normal/abnormal . RBC (test code = 5.32 See_Comment H [Automated 723-5) message] The sy stem which generated this [...] RDW-SD (test code = 43.9 fL 39.0-49.9 71778-7) RDW-CV (test code = 13.9 % 12.0-15.5 788-0) PLT (test code = 308 See_Comment [Automated 777-3) message] The sy stem which generated this result transmitted reference range : 166 - 358 10*3/ ?L. The reference r susan was not used to interpret this result as normal/abnormal . MPV (test code = 11.2 fL 9.5-12.9 82870-5) NRBC/100 WBC (test 0.0 See_Comment [Automat ed code = 1629972819) message] The system which generated this result transmitted reference range : 0.0 - 10.0 /100 WBCs. The refer ence range was not u sed to interpret th is result as normal/abnormal . NRBC x10^3 (test code See_Comment [Auto mated = 3260621443) message] The s ystem which generated this result transmitted reference range : 10*3/?L. The reference range was not used to interpret this result as normal/abnormal . GRAN MAT (NEUT) % 71.0 % (test code = 770-8) IMM GRAN % (test code 0.40 % = 3085649412) LYMPH % (test code = 21.0 % 736-9) MONO % (test code = 5.8 % 5905-5) EOS % (test code = 1.3 % 713-8) BASO % (test code = 0.5 % 706-2) GRAN MAT x10^3(ANC) 7.54 10*3/uL 1.88-7.09 H (test code = 4251667213) IMM GRAN x10^3 (test 0.04 10*3/uL 0.00-0.06 code = 2304527882) LYMPH x10^3 (test code 2.23 10*3/uL 1.32-3.29 = 731-0) MONO x10^3 (test code 0.62 10*3/uL 0.33-0.92 = 742-7) EOS x10^3 (test code = 0.14 10*3/uL 0.03-0.39 711-2) BASO x10^3 (test code 0.05 10*3/uL 0.01-0.07 = 704-7) Lab Interpretation Abnormal (test code = 18345-8) [facility] CenterPO[facility] [id number] 13:30:00 Test Item Value Reference Range Interpretation Comments POCT PREG (test code = 1605) Negative On board controls acceptable with C Yes Line (test code = 3574) POCT PREG LOT # (test code = 3575) [id number] POCT PREG TEST DATE (test 15727896 code = 3576) Lab Interpretation (test code = Normal 83233-8) [facility] CenterCT, BRAIN, WITHOUT [id number] 12:56:00 Unlisted Reason for Exam - Click Yes and Enter Reason Below->No [facility]ILOC[facility]ACHO SINGHLESLI BOWLES : 1980 Sex: FFINAL REPORT CT Head [...] MDReport Verified Date/Time: 10/15/2021 12:56:49 US OVARY [id number] 19:26:25 Low suspicion for ovarian torsion. Small [...] uterine fibroid versus foci of endometrial andsubendometrial microcalcifications.[facility] CenterCT ABDOMEN PELVIS W [id number] 17:59:04 Normal appendix. No radiographic findings to [...] PELVISLiver: Hepatic dome is not fully within rslib-qz-xmea. Mild focal fatty infiltration at the falciform [...] PELVISLiver: Hepatic dome is not fully within nhtrr-na-atmc. Mild focal fattyinfiltration at the falciform ligament. [...] to explain patient's pain in the right lowerquadrant.[facility] (NA, K, CL, CO2, GLUCOSE, BUN, CREATININE, CA)2020-07-23 17:09:38 Test Item Value Reference Range Interpretation Comments NA (test code = 139 mmol/L 135-145 2934517596) K (test code = 3.9 mmol/L 3.5-5.0 1675365815) CL (test code = 102 mmol/L 98-108 7873248515) CO2 TOTAL (test code 29 mmol/L 23-31 = 6019773448) AGAP (test code = 2-16 8768944189) BUN (test code = 13 mg/dL 7-23 3324314718) GLUCOSE (test code = 98 mg/dL 70-110 0983235014) CREATININE (test code 0.76 mg/dL 0.50-1.04 = 5371189035) CALCIUM (test code = 9.5 mg/dL 8.6-10.6 4522848531) eGFR (test code = mL/min/1.73m2 3293159789) JOSH (test code = JOSH) Association of [...] or urine or abnormalities in imaging tests). [facility] (ALB, T.PRO, BILI T, BU/BC, ALT, AST, ALK PHOS)2020-07-23 17:09:38 Test Item Value Reference Range Interpretation Comments TOTAL BILI (test code = 4648423194) 0.4 mg/dL 0.1-1.1 BILI UNCON (test code = 9449985139) 0.2 mg/dL 0.1-1.1 BILI CONJ (test code = 3780214187) 0.0 mg/dL 0.0-0.3 T PROTEIN (test code = 6179092550) 6.9 g/dL 6.3-8.2 ALBUMIN (test code = 6258171705) 4.3 g/dL 3.5-5.0 ALK PHOS (test code = 8023945115) 113 U/L 34-122 ALTv (test code = 1742-6) 13 U/L 5-35 AST(SGOT) (test code = 3182306168) 29 U/L 13-40 Lab Interpretation (test code = Normal 77791-4) [facility] CenterUrinalysis2021-04-12 17:03:52 Test Item Value Reference Range Interpretation Comments APPEARANCE (test code = Clear Clear 4224420596) COLOR (test code = Straw Yellow A 8768286374) PH (test code = 4.8-8.0 0029368832) SP GRAVITY (test code = 1.003-1.030 5187602043) GLU U QUAL (test code = Normal Normal 5189854326) BLOOD (test code = Negative Negative 2957644838) KETONES (test code = Negative Negative 5900777010) PROTEIN (test code = Negative Negative 2887-8) UROBILIN (test code = Normal Normal 9560207527) BILIRUBIN (test code = Negative Negative 4599814286) NITRITE (test code = Negative Negative 2620027280) LEUK ROXANE (test code = 25/uL Negative A 8532636807) RBC/HPF (test code = See_Comment [Autom ated message] 3818978140) The system Daio generated this result transmitted ref erence range: 0 - 3 HP F. The reference range was not used to int erpret this result as normal/abnormal . WBC/HPF (test code = See_Comment [Autom ated message] 6265549677) The system Daio generated this result transmitted ref erence range: 0 - 5 HP F. The reference range was not used to int erpret this result as normal/abnormal . BACTERIA (test code = Few Negative A 3917267777) SQ EPITH (test code = HPF 5727940154) Lab Interpretation (test Abnormal code = 52790-2) [facility] with [id number] 16:55:13 Test Item Value Reference Range Interpretation Comments WBC (test code = See_Comment H [Automated 7290-2) message] The sy stem which generated this [...] RDW-SD (test code = 42.4 fL 39.0-49.9 03106-6) RDW-CV (test code = 12.9 % 12.0-15.5 788-0) PLT (test code = See_Comment [Automated 777-3) message] The sy stem which generated this result transmitted reference range : 166 - 358 10*3/ ?L. The reference r susan was not used to interpret this result as normal/abnormal . MPV (test code = 11.5 fL 9.5-12.9 10045-6) NRBC/100 WBC (test See_Comment [Automat ed code = 6903493252) message] The system which generated this result transmitted reference range : 0.0 - 10.0 /100 WBCs. The refer ence range was not u sed to interpret th is result as normal/abnormal . NRBC x10^3 (test code <0.01 See_Comment [Auto mated = 5957873351) message] The s ystem which generated this result transmitted reference range : 10*3/?L. The reference range was not used to interpret this result as normal/abnormal . GRAN MAT (NEUT) % 65.4 % (test code = 770-8) IMM GRAN % (test code 0.40 % = 6803768054) LYMPH % (test code = 24.9 % 736-9) MONO % (test code = 7.7 % 5905-5) EOS % (test code = 1.1 % 713-8) BASO % (test code = 0.5 % 706-2) GRAN MAT x10^3(ANC) 7.44 10*3/uL 1.88-7.09 H (test code = 2095661203) IMM GRAN x10^3 (test 0.05 10*3/uL 0.00-0.06 code = 6264594751) LYMPH x10^3 (test code 2.83 10*3/uL 1.32-3.29 = 731-0) MONO x10^3 (test code 0.88 10*3/uL 0.33-0.92 = 742-7) EOS x10^3 (test code = 0.12 10*3/uL 0.03-0.39 711-2) BASO x10^3 (test code 0.06 10*3/uL 0.01-0.07 = 704-7) Lab Interpretation Abnormal (test code = 96929-2) [facility]POCT [id number] 16:48:00 Test Item Value Reference Range Interpretation Comments POCT PREG (test code = 1605) negative On board controls acceptable with C present Line (test code = 3574) Lab Interpretation (test code = Normal 10811-1) [facility] CenterCT Head W/O [id number] 19:42:08 No acute intracranial abnormality. CT HEAD [...] paranasal sinuses and mastoidair cells are clear. [facility], Radiant ResultsInft User - 04/27/2020 1:43 [...] and mastoidair cells are clear.IMPRESSIONNo acute intracranial abnormality.[facility] CenterTroponin I 2020-04-27 19:09:00 Test Item Value Reference Range Interpretation Comments TROPONIN I (test <0.012 See_Comment [Automated code = 1638930901) message] The system which generated this result [...] ? Lab Interpretation Normal (test code = 76312-4) [facility] Met[facility] Panel (NA, K, CL, CO2, GLUCOSE, BUN, CREATININE, CA)2020-04-27 18:58:00 Test Item Value Reference Range Interpretation Comments NA (test code = 139 mmol/L 135-145 6016392086) K (test code = 4.1 mmol/L 3.5-5 4075012485) CL (test code = 98 mmol/L 98-108 2623531314) CO2 TOTAL (test code = 32 mmol/L 23-31 H 2966877128) AGAP (test code = 2-16 9101529198) BUN (test code = 11 mg/dL 7-23 8938540922) GLUCOSE (test code = 86 mg/dL 70-110 3313539709) CREATININE (test code = 0.78 mg/dL 0.5-1.04 0244633224) CALCIUM (test code = 10.2 mg/dL 8.6-10.6 6904014101) eGFR Calculation mL/min/1.73m2 (Non-) (test code = 9741096564) eGFR Calculation mL/min/1.73m2 () (test code = 6017293764) JOSH (test code = JOSH) Association of [...] tests). Lab Interpretation Abnormal (test code = 04406-1) [facility] with [id number] 18:54:00 Test Item Value Reference Range Interpretation Comments WBC (test code = See_Comment [Automated 0191-2) message] The sy stem which generated this result transmitted reference range : 4.30 - 11.10 10*3/?L. The reference range was not used to interpret this result as normal/abnormal . RBC (test code = See_Comment [Automated 686-8) message] The sy stem which generated this [...] RDW-SD (test code = 42.5 fL 39-49.9 62029-0) RDW-CV (test code = 12.8 % 12-15.5 788-0) PLT (test code = See_Comment [Automated 777-3) message] The sy stem which generated this result transmitted reference range : 166 - 358 10*3/ ?L. The reference r susan was not used to interpret this result as normal/abnormal . MPV (test code = 11.9 fL 9.5-12.9 13056-4) NRBC/100 WBC (test See_Comment [Automat ed code = 7512743411) message] The system which generated this result transmitted reference range : 0.0 - 10.0 /100 WBCs. The refer ence range was not u sed to interpret th is result as normal/abnormal . NRBC x10^3 (test code <0.01 See_Comment [Auto mated = 6742179231) message] The s ystem which generated this result transmitted reference range : 10*3/?L. The reference range was not used to interpret this result as normal/abnormal . GRAN MAT (NEUT) % 62.6 % (test code = 770-8) IMM GRAN % (test code 0.20 % = 0556449764) LYMPH % (test code = 26.7 % 736-9) MONO % (test code = 9.0 % 5905-5) EOS % (test code = 1.1 % 713-8) BASO % (test code = 0.4 % 706-2) GRAN MAT x10^3(ANC) 5.07 10*3/uL 1.88-7.09 (test code = 9684914730) IMM GRAN x10^3 (test <0.03 0-0.06 code = 7143680049) LYMPH x10^3 (test code 2.16 10*3/uL 1.32-3.29 = 731-0) MONO x10^3 (test code 0.73 10*3/uL 0.33-0.92 = 742-7) EOS x10^3 (test code = 0.09 10*3/uL 0.03-0.39 711-2) BASO x10^3 (test code 0.03 10*3/uL 0.01-0.07 = 704-7) Lab Interpretation Abnormal (test code = 26833-7) [facility] CenterTroponin [id number] 11:05:00 Test Item Value Reference Range Interpretation Comments TROPONIN I (test <0.012 See_Comment [Automated code = 4239364765) message] The system which generated this result [...] ? Lab Interpretation Normal (test code = 49928-2) [facility] CenterBasi Metabolic Panel (NA, K, CL, CO2, GLUCOSE, BUN, CREATININE, CA)2020-02-08 10:55:00 Test Item Value Reference Range Interpretation Comments NA (test code = 138 mmol/L 135-145 7967013866) K (test code = 4.1 mmol/L 3.5-5 7047424982) CL (test code = 104 mmol/L 98-108 3428358605) CO2 TOTAL (test code = 26 mmol/L 23-31 8598221201) AGAP (test code = 2-16 9214910849) BUN (test code = 14 mg/dL 7-23 5622303300) GLUCOSE (test code = 94 mg/dL 70-110 3284115643) CREATININE (test code 0.91 mg/dL 0.5-1.04 = 1185439912) CALCIUM (test code = 9.0 mg/dL 8.6-10.6 0377983619) eGFR Calculation mL/min/1.73m2 (Non-) (test code = 8647484023) eGFR Calculation mL/min/1.73m2 () (test code = 2540073886) JOSH (test code = JOSH) Association of [...] or urine or abnormalities in imaging tests). [facility] with Fmrnniroyebd7356-38-24 10:26:00 Test Item Value Reference Range Interpretation Comments WBC (test code = See_Comment [Automated message] 6690-2) The system Daio generated this result transmitted ref erence range: 4.30 - 1 1.10 10*3/?L. The re ference range was not u sed to interpret this result as normal/abnor mal. RBC (test code = See_Comment [Automated message] 789-8) The system Daio generated this result transmitted ref erence range: [...] RDW-SD (test code 45.3 fL 39-49.9 = 32689-5) RDW-CV (test code 13.4 % 12-15.5 = 788-0) PLT (test code = See_Comment [Automated message] 777-3) The system Daio generated this result transmitted ref erence range: 166 - 35 8 10*3/?L. The re ference range was not u sed to interpret this result as normal/abnor mal. MPV (test code = 11.9 fL 9.5-12.9 44664-9) NRBC/100 WBC (test See_Comment [Automat ed message] code = 4757763783) The syste m which generated this result transmitted ref erence range: 0.0 - 10 .0 /100 WBCs. The refer ence range was not u sed to interpret this result as normal/abnor mal. NRBC x10^3 (test <0.01 See_Comment [Automated message] code = 6495300542) The syste m which generated this result transmitted ref erence range: 10*3/?L. The reference range was not used to interpr et this result as normal/abnormal . GRAN MAT (NEUT) % 63.9 % (test code = 770-8) IMM GRAN % (test 0.40 % code = 4054843206) LYMPH % (test code 26.9 % = 736-9) MONO % (test code 6.7 % = 5905-5) EOS % (test code = 1.6 % 713-8) BASO % (test code 0.5 % = 706-2) GRAN MAT 4.94 10*3/uL 1.88-7.09 x10^3(ANC) (test code = 8675826000) IMM GRAN x10^3 0.03 10*3/uL 0-0.06 (test code = 6282987353) LYMPH x10^3 (test 2.08 10*3/uL 1.32-3.29 code = 731-0) MONO x10^3 (test 0.52 10*3/uL 0.33-0.92 code = 742-7) EOS x10^3 (test 0.12 10*3/uL 0.03-0.39 code = 711-2) BASO x10^3 (test 0.04 10*3/uL 0.01-0.07 code = 704-7) [facility] CenterRodo [id number] 05:34:00 Test Item Value Reference Range Interpretation Comments TROPONIN I (test <0.012 See_Comment [Automated code = 9756091277) message] The system which generated this result [...] ? Lab Interpretation Normal (test code = 40257-4) [facility] CenterThyroid Stimulating Hormone (TSH)2020-02-08 02:02:00 Test Item Value Reference Range Interpretation Comments TSH (test code = See_Comment [Automated message] 0536188715) The system Daio generated this result transmitted ref erence range: 0.45 - 4 .70 mIU/L. The refe rence range was not u sed to interpret this result as normal/abnor mal. Lab Interpretation (test Normal code = 67231-5) [facility] CenterMagnesium [id number] 01:31:00 Test Item Value Reference Range Interpretation Comments MAGNESIUM (test code = 0816879977) 2.1 mg/dL 1.7-2.4 Lab Interpretation (test code = Normal 97070-3) [facility] CenterLipid Panel (Total Cholesterol, Triglycerides, HDL)2020-02-08 01:31:00 Test Item Value Reference Range Interpretation Comments CHOL (test code = 220 mg/dL 120-200 H 1115572457) HDL (test code = 44 mg/dL >50 L 7124387393) HDLC RATIO (test code = See_Comment H [Au tomated message] 4466229214) The system Daio generated this result transmit alistair reference range : <=4.5. The refe rence range was not u sed to interpret th is result as normal/abnormal . TRIG (test code = 179 mg/dL 30-170 H 9346227168) LDL CHOL (test code = 140 mg/dL See_Comment [Auto mated message] 85133-7) The system Daio generated this result transmit alistair reference range : <=160. The refe rence range was not u sed to interpret th is result as normal/abnormal . VLDL (test code = 36 mg/dL 5-60 [id number]) Lab Interpretation (test Abnormal code = 52915-3) [facility]2020-02-07 23:26:00 Test Item Value Reference Range Interpretation Comments SARS-CoV-2 Rapid ID NOW Not Detected Not Detected (test code = 90006-8) JOSH (test code = JOSH) ID NOW COVID-19 Assay is an isothermal nucleic acid amplification test intended for the qualitative detection of nucleic acid from SARS-CoV-2 viral RNA in nasopharyngeal (HANGER OFF) specimens. It is used under Emergency Use [...] indicated. Lab Interpretation Normal (test code = 18607-1) [facility] [id number] 22:52:00 Test Item Value Reference Range Interpretation Comments TROPONIN I (test <0.012 See_Comment [Automated code = [id number]) message] The system which generated this result [...] ? Lab Interpretation Normal (test code = 31353-1) [facility] [id number] 21:53:30CT Abdomen and Pelvis with intravenous contrast. [...] Unremarkable.CONCLUSION: No acute intra-abdominal or pelvic abnormalities detected.[facility] CHEST PULMONARY [id number] 21:48:38 No acute or chronic pulmonary embolus [...] reviewed this study and agree with theabove report.[facility] CenterUrinalysis2020-[facility] 20:52:00 Test Item Value Reference Range Interpretation Comments APPEARANCE (test code = Clear Clear 3550532662) COLOR (test code = Straw Yellow A 2409372163) PH (test code = 4.8-8.0 5110385210) SP GRAVITY (test code = 1.003-1.030 2104661210) GLU U QUAL (test code = Normal Normal 4412260723) BLOOD (test code = Negative Negative 6710717156) KETONES (test code = Negative Negative 9666363086) PROTEIN (test code = Negative Negative 2887-8) UROBILIN (test code = Normal Normal 2489388024) BILIRUBIN (test code = Negative Negative 2241374028) NITRITE (test code = Negative Negative 0550179199) LEUK ROXANE (test code = Negative Negative 9789797081) RBC/HPF (test code = See_Comment [Autom ated message] 3353011451) The system Daio generated this result transmitted ref erence range: 0 - 3 HP F. The reference range was not used to int erpret this result as normal/abnormal . WBC/HPF (test code = See_Comment [Autom ated message] 5464165201) The system Daio generated this result transmitted ref erence range: 0 - 5 HP F. The reference range was not used to int erpret this result as normal/abnormal . BACTERIA (test code = Few Negative A 1607252357) MUCOUS (test code = Slight Negative LPF A 7838429444) SQ EPITH (test code = HPF 0878445334) Lab Interpretation (test Abnormal code = 53107-8) [facility] 1 [id number] 20:38:53HISTORY: Chest pain. TECHNIQUE: Portable AP erect [...] CONCLUSIONS: No signs of acute cardiopulmonary disease. [id number] 20:36:00 Test Item Value Reference Range Interpretation Comments TROPONIN I (test <0.012 See_Comment [Automated code = 1350028744) message] The system which generated this result [...] ? Lab Interpretation Normal (test code = 06231-0) [facility] [id number] 20:33:00 Test Item Value Reference Range Interpretation Comments NT-proBNP (test code 53 pg/mL See_Comment [Autom ated = 5097160726) message] The system which generated this result transmitted reference range : <=125. The reference range was not used to interpret this result as normal/abnormal . JOSH (test code = JOSH) Biotin has been reported to cause a negative bias, interpret results relative to patient's use of biotin. Lab Interpretation Normal (test code = 75740-6) [facility] 20:29:00 Test Item Value Reference Range Interpretation Comments APTT Patient (test See_Comment [Automat ed code = 3173-2) message] The system which generated this result transmitted reference range : 23 - 38 Seconds . The reference range was not used to interpr et this result as normal/abnormal . JOSH (test code = JOSH) The [facility] patient population mean normal value for aPTT is 30 seconds. Lab Interpretation Normal (test code = 73279-1) [facility] CenterProthrombin Time (PT) / [id number] 20:27:00 Test Item Value Reference Range Interpretation [...] tions. Lab Interpretation (test Normal code = 27361-8) [facility] Center[facility]asi [facility] Panel (NA, K, CL, CO2, GLUCOSE, BUN, CREATININE, CA)2020-02-07 20:24:00 Test Item Value Reference Range Interpretation Comments NA (test code = 138 mmol/L 135-145 0114948668) K (test code = 3.9 mmol/L 3.5-5 3449599025) CL (test code = 98 mmol/L 98-108 5865479372) CO2 TOTAL (test code = 32 mmol/L 23-31 H 3506420625) AGAP (test code = 2-16 7507777888) BUN (test code = 13 mg/dL 7-23 0980658963) GLUCOSE (test code = 103 mg/dL 70-110 5055256293) CREATININE (test code = 1.33 mg/dL 0.5-1.04 H 3171902155) CALCIUM (test code = 10.0 mg/dL 8.6-10.6 9205659793) eGFR Calculation mL/min/1.73m2 (Non-) (test code = 9244219094) eGFR Calculation mL/min/1.73m2 () (test code = 2510297620) JOSH (test code = JOSH) Association of [...] tests). Lab Interpretation Abnormal (test code = 69037-2) [facility] Center[facility] Function Panel (ALB, T.PRO, BILI T, BU/BC, ALT, AST, ALK PHOS)2020-02-07 20:24:00 Test Item Value Reference Range Interpretation Comments TOTAL BILI (test code = 0903773384) 0.4 mg/dL 0.1-1.1 BILI UNCON (test code = 4068258623) 0.3 mg/dL 0.1-1.1 BILI CONJ (test code = 9982769419) 0.0 mg/dL 0-0.3 T PROTEIN (test code = 9166246984) 7.4 g/dL 6.3-8.2 ALBUMIN (test code = 8912648068) 4.4 g/dL 3.5-5 ALK PHOS (test code = 8802515067) 99 U/L 34-122 ALTv (test code = 1742-6) 16 U/L 5-35 AST(SGOT) (test code = 3032862820) 19 U/L 13-40 Lab Interpretation (test code = Normal 89166-1) [facility] CenterLipase [id number] 20:24:00 Test Item Value Reference Range Interpretation Comments LIPASE (test code = 4307833568) 393 U/L 0-220 H Lab Interpretation (test code = Abnormal 37778-3) [facility]CBC with [id number] 20:19:00 Test Item Value Reference Range Interpretation Comments WBC (test code = See_Comment [Automated message] 6690-2) The system Daio generated this result transmitted ref erence range: 4.30 - 1 1.10 10*3/?L. The re ference range was not u sed to interpret this result as normal/abnor mal. RBC (test code = See_Comment [Automated message] 789-8) The system Daio generated this result transmitted ref erence range: [...] RDW-SD (test code 43.5 fL 39-49.9 = 19441-3) RDW-CV (test code 13.2 % 12-15.5 = 788-0) PLT (test code = See_Comment [Automated message] 777-3) The system [employer] h generated this result transmitted ref erence range: 166 - 35 8 10*3/?L. The re ference range was not u sed to interpret this result as normal/abnor mal. MPV (test code = 12.1 fL 9.5-12.9 67927-8) NRBC/100 WBC (test See_Comment [Automat ed message] code = 3675106978) The syste m which generated this result transmitted ref erence range: 0.0 - 10 .0 /100 WBCs. The refer ence range was not u sed to interpret this result as normal/abnor mal. NRBC x10^3 (test <0.01 See_Comment [Automated message] code = 7923733760) The syste m which generated this result transmitted ref erence range: 10*3/?L. The reference range was not used to interpr et this result as normal/abnormal . GRAN MAT (NEUT) % 62.9 % (test code = 770-8) IMM GRAN % (test 0.50 % code = 4655229234) LYMPH % (test code 26.9 % = 736-9) MONO % (test code 7.8 % = 5905-5) EOS % (test code = 1.2 % 713-8) BASO % (test code 0.7 % = 706-2) GRAN MAT 6.08 10*3/uL 1.88-7.09 x10^3(ANC) (test code = 8406218587) IMM GRAN x10^3 0.05 10*3/uL 0-0.06 (test code = 8223506512) LYMPH x10^3 (test 2.61 10*3/uL 1.32-3.29 code = 731-0) MONO x10^3 (test 0.76 10*3/uL 0.33-0.92 code = 742-7) EOS x10^3 (test 0.12 10*3/uL 0.03-0.39 code = 711-2) BASO x10^3 (test 0.07 10*3/uL 0.01-0.07 code = 704-7) [facility] CenterPO[facility] [id number] 20:03:00 Test Item Value Reference Range Interpretation Comments POCT PREG (test code = 1605) Negative On board controls acceptable with Present C Line (test code = 3574) POCT PREG LOT # (test code = 3575) [id number] POCT PREG TEST DATE (test 07/11/2021 code = 3576) Lab Interpretation (test code = Normal 09963-6) [facility] ABDOMEN PELVIS W [id number] 00:58:03Impression: 1. Bilateral pyelonephritis.2. Mild right renal [...] cortical scarring.3. Mild hepatomegaly.RL: 460End of Report [facility] 2020-01-24 23:22:00 Test Item Value Reference Range Interpretation Comments POCT PREG (test code = 1605) negative On board controls acceptable with present C Line (test code = 3574) POCT PREG LOT # (test code = 3575) [id number] POCT PREG TEST DATE (test 2020-11-10 code = 3576) Lab Interpretation (test code = Normal 21893-4) [facility] CenterURINALYSIS2020-10-13 23:21:00 Test Item Value Reference Range Interpretation Comments APPEARANCE (test code = Hazy Clear A 3698743475) COLOR (test code = Yellow Yellow 9050568085) PH (test code = 4.8-8.0 6073034802) SP GRAVITY (test code = 1.003-1.030 1113698290) GLU U QUAL (test code = Normal Normal 0147851983) BLOOD (test code = Negative Negative 9019663079) KETONES (test code = Negative Negative 8093932868) PROTEIN (test code = Negative Negative 2887-8) UROBILIN (test code = Normal Normal 9385777549) BILIRUBIN (test code = Negative Negative 5635303611) NITRITE (test code = Negative Negative 8171846125) LEUK ROXANE (test code = 250/uL Negative A 9302857248) RBC/HPF (test code = See_Comment [Autom ated message] 3256678776) The system Daio generated this result transmitted ref erence range: 0 - 3 HP F. The reference range was not used to int erpret this result as normal/abnormal . WBC/HPF (test code = See_Comment H [Autom ated message] 4732642731) The system Daio generated this result transmitted ref erence range: 0 - 5 HP F. The reference range was not used to int erpret this result as normal/abnormal . BACTERIA (test code = Moderate Negative A 1012028106) MUCOUS (test code = Slight Negative LPF A 8485944997) SQ EPITH (test code = HPF 8837674377) Lab Interpretation (test Abnormal code = 89551-6) [facility]. METABOLIC PANEL (09056)2020-01-24 23:01:00 Test Item Value Reference Range Interpretation Comments NA (test code = 139 mmol/L 135-145 9769778468) K (test code = 4.0 mmol/L 3.5-5 6428413598) CL (test code = 98 mmol/L 98-108 4348625364) CO2 TOTAL (test code = 30 mmol/L 23-31 7815633711) AGAP (test code = 2-16 8671491567) BUN (test code = 13 mg/dL 7-23 1553198046) GLUCOSE (test code = 105 mg/dL 70-110 3177172896) CREATININE (test code 1.00 mg/dL 0.5-1.04 = 1987309821) TOTAL BILI (test code 0.5 mg/dL 0.1-1.1 = 4521801384) CALCIUM (test code = 10.4 mg/dL 8.6-10.6 3982841513) T PROTEIN (test code = 7.7 g/dL 6.3-8.2 9940915715) ALBUMIN (test code = 4.5 g/dL 3.5-5 6022357344) ALK PHOS (test code = 118 U/L 34-122 0782386053) ALTv (test code = 30 U/L 5-35 1742-6) AST(SGOT) (test code = 22 U/L 13-40 5142796585) eGFR Calculation mL/min/1.73m2 (Non-) (test code = 4137591983) eGFR Calculation mL/min/1.73m2 () (test code = 1577337012) JOSH (test code = JOSH) Association of [...] or urine or abnormalities in imaging tests). [facility] CenterLIPASE2020-10-13 23:00:00 Test Item Value Reference Range Interpretation Comments LIPASE (test code = 5872276433) 125 U/L 0-220 Lab Interpretation (test code = Normal 78664-0) [facility] [id number] 22:55:00 Test Item Value Reference Range Interpretation Comments WBC (test code = See_Comment [Automated message] 6690-2) The system Daio generated this result transmitted ref erence range: 4.30 - 1 1.10 10*3/?L. The re ference range was not u sed to interpret this result as normal/abnor mal. RBC (test code = See_Comment [Automated message] 169-8) The system Daio generated this result transmitted ref erence range: [...] RDW-SD (test code 43.5 fL 39-49.9 = 97280-1) RDW-CV (test code 13.3 % 12-15.5 = 788-0) PLT (test code = See_Comment [Automated message] 777-3) The system Daio generated this result transmitted ref erence range: 166 - 35 8 10*3/?L. The re ference range was not u sed to interpret this result as normal/abnor mal. MPV (test code = 11.6 fL 9.5-12.9 63429-8) NRBC/100 WBC (test See_Comment [Automat ed message] code = 8621365048) The syste [email or web address] which generated this result transmitted ref erence range: 0.0 - 10 .0 /100 WBCs. The refer ence range was not u sed to interpret this result as normal/abnor mal. NRBC x10^3 (test <0.01 See_Comment [Automated message] code = 2669881035) The syste m which generated this result transmitted ref erence range: 10*3/?L. The reference range was not used to interpr et this result as normal/abnormal . GRAN MAT (NEUT) % 59.7 % (test code = 770-8) IMM GRAN % (test 0.40 % code = 6866105608) LYMPH % (test code 29.5 % = 736-9) MONO % (test code 8.2 % = 5905-5) EOS % (test code = 1.7 % 713-8) BASO % (test code 0.5 % = 706-2) GRAN MAT 5.93 10*3/uL 1.88-7.09 x10^3(ANC) (test code = 9233648392) IMM GRAN x10^3 0.04 10*3/uL 0-0.06 (test code = 9981279282) LYMPH x10^3 (test 2.93 10*3/uL 1.32-3.29 code = 731-0) MONO x10^3 (test 0.81 10*3/uL 0.33-0.92 code = 742-7) EOS x10^3 (test 0.17 10*3/uL 0.03-0.39 code = 711-2) BASO x10^3 (test 0.05 10*3/uL 0.01-0.07 code = 704-7) [facility] W [id number] 19:13:50CT Abdomen and Pelvis with intravenous contrast. [...] intrapelvic abnormalities detected.Please see additional comments above. [facility], Radiant Results Inft User - 06/02/2019 [...] or intrapelvic abnormalities detected.Please see additional comments above.[facility] Rddzpcdtmf2211-43-28 18:13:00 Test Item Value Reference Range Interpretation Comments APPEARANCE (test code = Clear Clear 8914465128) COLOR (test code = Yellow Yellow 4292668685) PH (test code = 4.8-8.0 5918194953) SP GRAVITY (test code = 1.003-1.030 9509731110) GLU U QUAL (test code = Normal Normal 7934247331) BLOOD (test code = Negative Negative 2953899446) KETONES (test code = Negative Negative 9663759747) PROTEIN (test code = Negative Negative 2887-8) UROBILIN (test code = Normal Normal 8141534939) BILIRUBIN (test code = Negative Negative 0275180929) NITRITE (test code = Negative Negative 9869947772) LEUK ROXANE (test code = Negative Negative 6091090232) RBC/HPF (test code = See_Comment [Autom ated message] 0697040609) The system Daio generated this result transmitted ref erence range: 0 - 3 HP F. The reference range was not used to int erpret this result as normal/abnormal . WBC/HPF (test code = See_Comment [Autom ated message] 4726683091) The system Daio generated this result transmitted ref erence range: 0 - 5 HP F. The reference range was not used to int erpret this result as normal/abnormal . BACTERIA (test code = Negative Negative 0574698713) MUCOUS (test code = Slight Negative LPF A 1195711947) SQ EPITH (test code = HPF 9062798097) Lab Interpretation (test Abnormal code = 65611-9) [facility]. METABOLIC PANEL (99425)2019-06-02 18:09:00 Test Item Value Reference Range Interpretation Comments NA (test code = 138 mmol/L 135-145 9759156173) K (test code = 4.2 mmol/L 3.5-5 2913824239) CL (test code = 102 mmol/L 98-108 2377511325) CO2 TOTAL (test code = 27 mmol/L 23-31 8942542318) AGAP (test code = 2-16 4336543546) BUN (test code = 12 mg/dL 7-23 2311887294) GLUCOSE (test code = 93 mg/dL 70-110 4088934416) CREATININE (test code 0.73 mg/dL 0.5-1.04 = 6039381779) TOTAL BILI (test code 0.4 mg/dL 0.1-1.1 = 9285579163) CALCIUM (test code = 9.5 mg/dL 8.6-10.6 9631080290) T PROTEIN (test code = 7.3 g/dL 6.3-8.2 9212103992) ALBUMIN (test code = 4.6 g/dL 3.5-5 7950163117) ALK PHOS (test code = 84 U/L 34-122 9926775376) ALTv (test code = 12 U/L 5-35 1742-6) AST(SGOT) (test code = 21 U/L 13-40 0555764090) eGFR Calculation mL/min/1.73m2 (Non-) (test code = 0545784094) eGFR Calculation mL/min/1.73m2 () (test code = 7252175821) JOSH (test code = JOSH) Association of [...] or urine or abnormalities in imaging tests). [facility] CenterLipase Dwpor0322-44-47 18:09:00 Test Item Value Reference Range Interpretation Comments LIPASE (test code = 0013839787) 108 U/L 0-220 Lab Interpretation (test code = Normal 96441-2) [facility]CBC WITH [id number] 18:01:00 Test Item Value Reference Range Interpretation Comments WBC (test code = See_Comment [Automated message] 6690-2) The system Daio generated this result transmitted ref erence range: 4.30 - 1 1.10 10*3/?L. The re ference range was not u sed to interpret this result as normal/abnor mal. RBC (test code = See_Comment [Automated message] 789-8) The system Da[employer] generated this result transmitted ref erence range: [...] RDW-SD (test code 46.2 fL 39-49.9 = 03245-6) RDW-CV (test code 14.1 % 12-15.5 = 788-0) PLT (test code = See_Comment [Automated message] 777-3) The system whic h generated this result transmitted ref erence range: 166 - 35 8 10*3/?L. The re ference range was not u sed to interpret this result as normal/abnor mal. MPV (test code = 10.8 fL 9.5-12.9 85107-4) NRBC/100 WBC (test See_Comment [Automat ed message] code = 5482780322) The syste m which generated this result transmitted ref erence range: 0.0 - 10 .0 /100 WBCs. The refer ence range was not u sed to interpret this result as normal/abnor mal. NRBC x10^3 (test <0.01 See_Comment [Automated message] code = 8635397671) The syste m which generated this result transmitted ref erence range: 10*3/?L. The reference range was not used to interpr et this result as normal/abnormal . GRAN MAT (NEUT) % 69.9 % (test code = 770-8) IMM GRAN % (test 0.70 % code = 8953521761) LYMPH % (test code 21.2 % = 736-9) MONO % (test code 6.2 % = 5905-5) EOS % (test code = 1.4 % 713-8) BASO % (test code 0.6 % = 706-2) GRAN MAT 6.08 10*3/uL 1.88-7.09 x10^3(ANC) (test code = 1343798802) IMM GRAN x10^3 0.06 10*3/uL 0-0.06 (test code = 4053553676) LYMPH x10^3 (test 1.84 10*3/uL 1.32-3.29 code = 731-0) MONO x10^3 (test 0.54 10*3/uL 0.33-0.92 code = 742-7) EOS x10^3 (test 0.12 10*3/uL 0.03-0.39 code = 711-2) BASO x10^3 (test 0.05 10*3/uL 0.01-0.07 code = 704-7) [facility]PO[facility] Test, Cewur3720-30-60 17:48:00 Test Item Value Reference Range Interpretation Comments POCT PREG (test code = 1605) negative POCT PREG LOT # (test code = 3575) [id number] POCT PREG TEST DATE (test 11/10/2020 code = 3576) Lab Interpretation (test code = Normal 98575-6) [facility]- XR CHEST 1 [id number] 19:54:00 Name: VIC REEVES [facility] : 1980 Age/S: 38 / F [address] Unit #: [id number] Loc: [place] [address] Phys: Génesis King MD Acct: [id number] Dis Date: Status: ADM IN PHONE #: [phone] Exam Date: 02/22/20191940 FAX #: Reason: SOB EXAMS: CPT: [id number] XR CHEST 1 V 97895 Fluoro Time: DAP (Gy m2): Air Kerma [...] PAGE 1 Signed Report Name: VIC REEVES [place] : 1980 Age/S: 38 / F [address] Unit #: [id number] Loc: [place] [address] Phys: éGnesis King MD Acct: [id number] Dis Date: Status: ADM IN PHONE #: [phone] Exam Date: 02/22/2019 194 FAX #: Reason: SOB EXAMS: CPT: [id number] XR CHEST 1 V 12290 Fluoro Time: DAP (Gy m2): Air Kerma (mGy): (Continued) Technologist: Jordan Chacon, RT(R)(CT) Trnscb Date/Time: 02/22/2019 (1953) [email or web address] Orig Print D/T: S: 02/22/2019 (1956)PAGE 2 Signed Report- US RETRO [id number] 15:32:00 Name: VIC REEVES [place] : 1980 Age/S: 38 / F [address] Unit #: [id number] Loc: [place] [address] Phys: Génesis King MD Acct: [id number] Dis Date: Status: ADM IN PHONE #: [phone] Exam Date: 02/22/2019 1200 FAX #: Reason: back pain EXAMS: CPT: [id number] US RETRO LTD 26213 EXAMINATION: - US RETRO LTD. LOCATION: T18. [...] BarbieANS4 PAGE 1 Signed Report Name: VIC REEVES [place] : 1980 Age/S: 38 / F [address] Unit #: [id number] Loc: [place] [address] Phys: Génesis King MD Acct: [id number] Dis Date: Status: ADM IN PHONE #: [phone] Exam Date: 02/22/2019 1200 FAX #: Reason: back pain EXAMS: CPT: [id number] RETRO LTD 81733 (Continued) Orig Print D/T: S: 02/22/2019 (1535) Probe: PAGE 2 Signed ReportCBC W/AUTO [id number] 12:09:00 Test Item Value Reference Range Interpretation [...] MDIFF) CONSISTA NT WITH AUTO DIFFERENTIAL. RBC [id number] 12:09:00 Test Item Value Reference Range Interpretation Comments ANISOCYTOSIS (test code = 1+ NONE ANISO) MICROCYTOSIS (test code = 1+ ON SCAN NONE MICR) PLATELET ESTIMATE (test ADEQUATE THOUSAND ADEQUATE code = PLTEST) PLATELET MORPHOLOGY (test NORMAL code = PLTMORPH) CBC W/AUTO [id number] 12:08:00 Test Item Value Reference Range Interpretation [...] = NO DIFF/SCN CRITERIA MDIFF) CBC W/AUTO [id number] 12:08:00 Test Item Value Reference Range Interpretation [...] code = NO DIFF/SCN CRITERIA MDIFF) RBC [id number] 12:08:00 Test Item Value Reference Range Interpretation Comments ANISOCYTOSIS (test code = 1+ NONE ANISO) MICROCYTOSIS (test code = 1+ ON SCAN NONE MICR) PLATELET ESTIMATE (test ADEQUATE THOUSAND ADEQUATE code = PLTEST) PLATELET MORPHOLOGY (test NORMAL code = PLTMORPH) CBC W/AUTO [id number] 12:08:00 Test Item Value Reference Range Interpretation [...] = NO DIFF/SCN CRITERIA MDIFF) BASIC METABOLIC [id number] 07:07:00 Test Item Value Reference Range Interpretation [...] CA) 7.8 MG/DL 8.5-10.1 L CBC W/AUTO [id number] 06:58:00 Test Item Value Reference Range Interpretation [...] ng/mL are obtained. - CT ABD PELVIS W/[id number] 20:34:00 Name: VIC REEVES [facility] : 1980 Age/S: 38 / F [address] Unit #: [id number] Loc: [place] [address] Phys: Cony Partida MD Acct: [id number] Dis Date: Status: ADM IN PHONE#: [phone] Exam Date: 02/19/20192024 FAX #: Reason: acute PN, possible ureteral stone EXAMS: CPT: [id number] CT ABD PELVIS W/CONT [address]7829 CT Abdomen and Pelvis with contrast. Location: [...] RT(R)(CT) CTDI: DLP: Trnscb Date/Time: 02/19/2019 (2033) LukeR.RB24 Orig Print D/T: S: 02/19/2019 (2036) PAGE 1 Signed ReportUA RFLX MICR CULT IF [id number] 19:43:00 Test Item Value Reference Range Interpretation [...] culture: Flank PainUA RFLX MICR CULT IF [id number] 19:28:00 Test Item Value Reference Range Interpretation [...] 50,000 2ND & 3R D TRIMESTER LACTIC [id number] 18:52:00 Test Item Value Reference Range Interpretation Comments LACTIC ACID (test code = LACT) 0.7 mmol/L 0.4-2.0 N CBC W/AUTO [id number] 17:55:00 Test Item Value Reference Range Interpretation [...] MDIFF) CONSISTA NT WITH AUTO DIFFERENTIAL. RBC [id number] 17:55:00 Test Item Value Reference Range Interpretation Comments ANISOCYTOSIS (test code = ANISO) 1+ NONE CBC W/AUTO [id number] 17:54:00 Test Item Value Reference Range Interpretation [...] CONSISTA NT WITH AUTO DIFFERENTIAL. CBC W/AUTO [id number] 17:54:00 Test Item Value Reference Range Interpretation [...] CONSISTA NT WITH AUTO DIFFERENTIAL. BASIC METABOLIC [id number] 17:43:00 Test Item Value Reference Range Interpretation [...] Unit/L 84-246 N code = LDH) LACTIC [id number] 17:43:00 Test Item Value Reference Range Interpretation Comments LACTIC ACID (test code = LACT) 0.8 mmol/L 0.4-2.0 N BASIC METABOLIC [id number] 17:36:00 Test Item Value Reference Range Interpretation [...] code Unit/L 84-246 = LDH) CBC W/AUTO [id number] 17:35:00 Test Item Value Reference Range Interpretation [...] Notes Date/Time Note Provider Source 2019-02-23 09:00:00-00:00 [facility] ([facility]) Discharge Summary REPORT#:[id number] REPORT STATUS: Signed DATE:02/23/19 TIME:09 PATIENT: VIC REEVES UNIT #: [id number] ROOM/BED: [place] [address] : [birth year] AGE: 38 SEX: F ATTEND: Kristopher Partida MD ADM AUTHOR: Génesis King MD * ALL edits or amendments must be made on the [employer]/computer document * General Information Date of admission: [...] Resp 18 02/23 718 O2 Flow Rate 2.186570 02/22 2014 24 hour I O ending at 0700: 02/23 1900 Intake Total 960.00 280 Output Total [...] management: greater than 30 mins at 0905 [facility] #: [phone] END OF REPORT 2019-02-22 22:45:00-00:00 [facility] Urology Progress Note REPORT#:[id number] REPORT STATUS: Signed DATE:02/22/19 TIME:2244 PATIENT: VIC REEVES UNIT #: [id number] ROOM/BED: [place] [address] : [birth year] AGE: 38 SEX: F ATTEND: Kushal Partida MD ADM AUTHOR: Art Nguyen MD * ALL edits or amendments must be made on the [employer]computer document * Subjective Chief Complaint: pyelonephritis Comments: having pain on right side, now bilateral flank no dysuria Objective Physical Exam VS/I O: Last Documented: Result Date Time O2 Delivery Nasal cannula 02/22 2014 O2 Flow Rate 2.613205 02/22 2014 Pulse Ox 100 02/22 1954 [...] Nguyen MD on 02/11 06/01 at 2248 [facility] #: [phone] END OF REPORT 2019-02-22 09:58:00-00:00 [facility] ([facility]) Hospitalist Progress Note REPORT#:[id number] REPORT STATUS: Signed DATE:02/22/19 TIME:0958 PATIENT: VIC REEVES UNIT #: [id number] ROOM/BED: [place] [address] : 80 AGE: 38 SEX: F ATTEND: Kushal Partida MD ADM AUTHOR: Génesis King MD * ALL edits or amendments must be made on the [employer]/computer document * Subjective Chief Complaint: c/o L [...] refill, normal range of motion, no edema Neuro/FRONT OFFICE ASSISTANT: alert, 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 OBSTRUCTIVE UROPATHY with minimal dil atation of R ureter- report from [facility] CT A/P WITHOUT CONTRAST possibly passed [...] spasm, add dilaudid at 1000 RPT #: [id number] END OF REPORT 2019-02-21 20:37:00-00:00 [facility] ([facility]) Urology Progress Note REPORT#:[id number] REPORT STATUS: Signed DATE:02/21/19 TIME:2036 PATIENT: VIC REEVES UNIT #: [id number] ROOM/BED: [place] [address] : 80 AGE: 38 SEX: F ATTEND: Kushal Partida MD ADM AUTHOR: Art Nguyen MD * ALL edits or amendments must be made on the el [employer]/computer document * Subjective Chief Complaint: pyelonephritis Comments: [...] O ending at 0700: 02/21 0700 02/20 190 Intake Total 2550.00 520 Output Total Balance [...] on 02/11 05/01 at 2047 RPT #: [id number] END OF REPORT 2019-02-21 10:37:00-00:00 [facility] ([facility]) Hospitalist Progress Note REPORT#:[id number] REPORT STATUS: Signed DATE:02/21/19 TIME:1037 PATIENT: VIC REEVES UNIT #: [id number] ROOM/BED: [place] [address] : 80 AGE: 38 SEX: F ATTEND: Kushal Partida MD ADM AUTHOR: Génesis King MD * ALL edits or amendments must be made on the el [employer]/computer document * Subjective Chief Complaint: R flank [...] refill, normal range of motion, no edema Neuro/FRONT OFFICE ASSISTANT: alert, 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 OBSTRUCTIVE UROPATHY with minimal dil atation of R ureter- report from [facility] CT A/P WITHOUT CONTRAST possibly passed [...] u p labs at 1039 RPT #: [id number] END OF REPORT 2019-02-20 22:11:00-00:00 [id number] [facility] [id number] [place] [id number] PATIENT NAME: VIC REEVES ADMIT DATE: 9 ACCOUNT NO: [id number] ROOM NO: [facility] AGE: 38 REPORT TYPE: CONSULTATION SEX: F [...] pending. Dictated By: Art Nguyen MD WT: CON:LCINDI/NAVARRO/LEX Conf#: [id number]/DID#: [id number] Authenticated and Edited by Art Nguyen MD On 10:33:45 PM Electronically Signed by Art Nguyen MD on at 1550 PATIENT NAME: VIC REEVES 3001 2019-02-20 12:46:00-00:00 [facility] ([facility]) Hospitalist Progress Note REPORT#:[id number] REPORT STATUS: Signed DATE:02/20/19 TIME:1246 PATIENT: VIC REEVES UNIT #: [id number] ROOM/BED: [place] [address] : 80 AGE: 38 SEX: F ATTEND: Kushal Partida MD ADM AUTHOR: Cony Partida MD * ALL edits or amendments must be made on the el [employer]/computer document * Subjective Chief Complaint: R flank [...] refill, normal range of motion, no edema Neuro/FRONT OFFICE ASSISTANT: alert, oriented X 3 Psychiatry: normal affect [...] (Auto) (20.5 - 51.1 %) 5.0 L [place] % (Auto) (1.7 - 9.3 %) 10.2 H Eos % (Auto) (0.0 - 6.0 %) 0.1 Baso % (Auto) (0.0 - 2.0 %) 0.1 Neut # (Auto) (1.8 - 7.6 K/mm3) 15.61 H Lymph # (Auto) (0.6 - 3.2 K/mm3) 0.9 [place] # (Auto) (0.3 - 1.1 K/mm3) 1.9 [...] - 7.0 pH UNITS) 6.0 Ur Specific [place] (1.005 - 1.030 SG) 1.020 Urine Protein [...] dil atation of R ureter- report from [facility] CT A/P WITHOUT CONTRAST possibly passed [...] MD on 02/11 at 1251 RPT #: [id number] END OF REPORT 2019-02-19 17:53:00-00:00 [facility] ([facility]) Hospitalist History Physical REPORT#:[id number] REPORT STATUS: Signed DATE:02/19/19 TIME:1753 PATIENT: VIC REEVES UNIT #: [id number] ROOM/BED: [place] [address] : 80 AGE: 38 SEX: F ATTEND: Kushal Partida MD ADM AUTHOR: Cony Partida MD * ALL edits or amendments must be made on the [employer]/computer document * History of Present Illness HPI Chief complaint: R flank pain PCP: PCP: Jordan Jean MD HPI: 38 yo white female admitted as a transfe r from [facility] ER. She has PMH of depression, insomnia, chronic back pain. 1 week now has severe R flan k pain that radiates to the RLQ and pelvic area and is constant up to 10/10 [place] r[place]. No ameliorating factor. had N/V x 1 today. she has been having dysuria and hematuria. Now has w eakness and dizziness. CT at [facility] ER with d ocumentation of likely recent [...] refill, normal range of motion, no edema Neuro/FRONT OFFICE ASSISTANT: alert, oriented X 3 Psychiatry: normal affect [...] (Auto) (20.5 - 51.1 %) 5.0 L [place] % (Auto) (1.7 - 9.3 %) 10.2 H Eos % (Auto) (0.0 - 6.0 %) 0.1 Baso % (Auto) (0.0 - 2.0 %) 0.1 Neut # (Auto) (1.8 - 7.6 K/mm3) 15.61 H Lymph # (Auto) (0.6 - 3.2 K/mm3) 0.9 [place] # (Auto) (0.3 - 1.1 K/mm3) 1.9 H Eos # (Auto) (0.0 - 0.4 K/mm3) 0.0 Baso # (Auto) (0.0 - 0.1 K/mm3) 0.0 Add Manual Diff (CRITERIA DIFF/SCN) NO Anisocytosis (NONE) 1+ Diagnosis, Assessment Plan Free Text DxA P Notes Free Text DxA P Notes: 1. OBSTRUCTIVE UROPATHY with minimal dil atation of R ureter- report from [facility] CT A/P WITHOUT CONTRAST possibly passed [...] MD on 12/30 at 1810 RPT #: [id number] END OF REPORT"
[2022-09-25] MEDS ORDERED: KETOROLAC 30 MG/ML INJ ONE (10:47)
[2022-09-25] MEDS ORDERED: NA CHLORIDE 0.9% 1,000 ML ONE (10:47)
[2022-09-25] MEDS ORDERED: PROMETHAZINE INJ 25 MG/ML AMP ONE (10:47)
[2022-09-25] MEDS ORDERED: ADENOSINE 6 MG/ 2ML VIAL IV ONE (11:09)
[2022-09-25] MEDS ORDERED: LORazepam 2 MG/ML VIAL ONE ×2 (11:15→11:20)
[2022-09-25 11:38] LABS: Absolute Lymphocytes (CBC) 2.1 K/uL (0.7-4.9); Hematocrit 42.6 % (36.0-45.0); Lymphocytes % 15.9 % (15.3-44.8); MCV 86.5 fL (80-100); MPV 8.9 fL (7.6-11.3); RBC Red Blood Cell Count 4.93 M/uL (3.86-4.86)
[2022-09-25 11:54] LABS: Troponin High Sensitivity 3.1 pg/mL (<58.9)
--- NOTE | 2022-09-25 12:28 | RAD REPORT ---
[facility]54 [facility] CLINICAL HISTORY: CHEST PAIN COMPARISON: Chest Single View dated 03/20/2022; Chest Single View dated 02/17/2021; Chest Single View dated 11/19/2020; Chest Single View dated 05/24/2018 TECHNIQUE: Portable AP view of the chest. FINDINGS: The lungs are clear. No pneumothorax or effusion. The cardiomediastinal contours are unre markable. IMPRESSION: No acute cardiopulmonary process.
[2022-09-25] MEDS ORDERED: HYDROMORPHONE HCL 1 MG/ML INJ ONE (12:32)
--- NOTE | 2022-09-25 12:35 | EDPHYS ---
Physician Documentation [facility] Name: Yohana Reeves Age: 41 yrs Sex: Female : 1980 Arrival Date: 09/25/2022 Time: 10:11 Bed 20 Private MD: Edd Friedman ED Physician Violeta Shin HPI: 09/25 10:29 This 41 yrs old Female presents to ER via Ambulatory with complaints of Headache. sp3 10:29 41-year-old female with a history of chronic migraines, prior kidney stone, multiple sp3 other medical problems now presents to the ED again for recurrent migraine. Patient was seen yesterday evening by midlevel provider who assessed with laboratory values and administered multiple medications including Reglan, Benadryl, morphine, ketorolac, Dilaudid. Patient states that she had resolution but in the middle of the night headache recurred. Patient has aura and feels like it is a standard migraine for her. There are no new or differentiating features of this headache compared to those in the past. There is no recurrent trauma or any other aspect of review of systems makes his headache materially different than her recent prior headaches were her standard migraine pattern.. Historical: - Allergies: 10:24 No Known Drug Allergies; cm10 - PMHx: 10:24 chronic back pain; depressive disorder; GI Bleed; heart attack due to trauma; Kidney cm10 stones; Migraine; - PSHx: 10:24 section; Emergency laparotomy; cm10 - Immunization history:: Adult Immunizations unknown. - Social history:: Smoking status: unknown. ROS: 10:31 Constitutional: Negative for fever, chills, and weight loss, Eyes: Negative for injury, sp3 pain, redness, and discharge, ENT: Negative for injury, pain, and discharge, Neck: Negative for injury, pain, and swelling, Cardiovascular: Negative for chest pain, palpitations, and edema, Respiratory: Negative for shortness of breath, cough, wheezing, and pleuritic chest pain, Abdomen/GI: Negative for abdominal pain, nausea, vomiting, diarrhea, and constipation, Back: Negative for injury and pain, MS/Extremity: Negative for injury and deformity, Skin: Negative for injury, rash, and discoloration, Psych: Negative for depression, anxiety, suicide ideation, homicidal ideation, and hallucinations, Allergy/Immunology: Negative for hives, rash, and allergies, Endocrine: Negative for neck swelling, polydipsia, polyuria, polyphagia, and marked weight changes, Hematologic/Lymphatic: Negative for swollen nodes, abnormal bleeding, and unusual bruising. 10:31 All other systems are negative. Exam: 10:31 Constitutional: This is a well developed, well nourished patient who is awake, alert, sp3 and in no acute distress. Head/Face: Normocephalic, atraumatic. ENT: Nares patent. No nasal discharge, no septal abnormalities noted. External auditory canals are clear. Oropharynx with no redness, swelling, or masses, exudates, or evidence of obstruction, uvula midline. Mucous membranes moist. Neck: Trachea midline, no thyromegaly or masses palpated, and no cervical lymphadenopathy. Supple, full range of motion without nuchal rigidity, or vertebral point tenderness. No Meningismus. Chest/axilla: Normal chest wall appearance and motion. Nontender with no deformity. No lesions are appreciated. Cardiovascular: Regular rate and rhythm with a normal S1 and S2. No gallops, murmurs, or rubs. Normal PMI, no JVD. No pulse deficits. Respiratory: Lungs have equal breath sounds bilaterally, clear to auscultation and percussion. No rales, rhonchi or wheezes noted. No increased work of breathing, no retractions or nasal flaring. Abdomen/GI: Soft, non-tender, with normal bowel sounds. No distension or tympany. No guarding or rebound. No evidence of tenderness throughout. Back: No spinal tenderness. No costovertebral tenderness. Full range of motion. Skin: Warm, dry with normal turgor. Normal color with no rashes, no lesions, and no evidence of cellulitis. MS/ Extremity: Pulses equal, no cyanosis. Neurovascular intact. Full, normal range of motion. Psych: Awake, alert, with orientation to person, place and time. Behavior, mood, and affect are within normal limits. 10:31 Cardiovascular: Rate: tachycardic. 10:31 Neuro: Mild photophobia present. Patient was sunglasses. Neurologically the patient has a normal exam including mental status, speech, motor, sensory, proprioception, cranial nerves.. 11:12 ECG was reviewed by the Attending Physician. EKG demonstrates sinus tachycardia at 126 sp3 bpm with normal intervals, normal QRS, normal axis, normal ST/T changes without any evidence of acute ischemia. Vital Signs: 10:22 BP 142 / 102; Pulse 114; Resp 18; Temp 99; Pulse Ox 97% on R/A; Weight 86.18 kg; Height cm10 5 ft. 2 in. ; Pain 10/10; 10:50 BP 128 / 76; Pulse 84; Resp 18; Pulse Ox 100% ; os 12:28 BP 143 / 101; Pulse 128; Resp 18; Pulse Ox 100% on R/A; Pain 8/10; ld1 12:52 BP 136 / 99; Pulse 102; Resp 18; Pulse Ox 99% on R/A; Pain 2/10; ld1 10:22 Body Mass Index 34.75 (86.18 kg, 157.48 cm) cm10 10:22 Pain Scale: Adult cm10 12:28 Pain Scale: Adult ld1 12:52 Pain Scale: Adult ld1 MDM: 10:22 Patient medically screened. sp3 10:32 Data reviewed: vital signs, nurses notes, old medical records. ED course: 41-year-old sp3 female with recurrent chronic migraine seen yesterday evening. I believe patient may have narcotic rebound headaches and narcotic medications may not be the best course of action for her. Will redose with Phenergan, ketorolac, normal saline. She is try to get into see Dr. Qiu and her appointment is on October 23. Will reassess and continue to treat until appropriate time for likely discharge. No imaging criteria are present and prior imaging has been negative.. 11:11 ED course: Patient had an episode of anxiety and heart rate went up to the 140s. sp3 Initially it. It may be SVT but after EKG is obtained multiple they demonstrate sinus tachycardia without significant ST/T changes. First EKG was at a heart rate of 141 and the next was at 126. When patient calms down, heart rate drops into the low 100s. However to be safe, we will obtain laboratory values including troponin level and a chest x-ray. Will administer 2 mg of Ativan IV to help with anxiety which may also help with her headache which is already improved.. 12:33 ED course: After 1 dose of Dilaudid, patient is better. We will discharge her on sp3 sumatriptan and she can keep her appointment with Dr. Qiu.. 12:37 ED course: Chest x-ray, EKG, laboratory values including D-dimer and troponin are all sp3 negative. Heart rate is in the low 100s as dipped down into the high 80s when patient is calm.. 09/25 11:07 Order name: Basic Metabolic Panel; Complete Time: 12:25 sp3 09/25 11:07 Order name: CBC with Diff; Complete Time: 11:47 sp3 09/25 11:07 Order name: Troponin HS; Complete Time: 12:25 sp3 09/25 11:11 Order name: D-Dimer; Complete Time: 11:47 sp3 09/25 11:07 Order name: XRAY Chest (1 view); Complete Time: 12:36 sp3 09/25 11:07 Order name: EKG; Complete Time: 11:08 sp3 09/25 10:27 Order name: IV Saline Lock; Complete Time: 10:47 sp3 09/25 11:07 Order name: Cardiac monitoring; Complete Time: 11:14 sp3 09/25 11:07 Order name: EKG - Nurse/Tech; Complete Time: 11:14 sp3 09/25 11:07 Order name: Labs collected and sent; Complete Time: 11:14 sp3 Administered Medications: 10:47 Drug: Promethazine IVP 12.5 mg Route: IVP; Site: right forearm; os 11:16 Follow up: Response: No adverse reaction os 10:48 Drug: Ketorolac IVP 30 mg Route: IVP; Site: right forearm; os 11:15 Follow up: Response: No adverse reaction os 10:48 Drug: NS 0.9% IV 1000 ml Route: IV; Rate: 125 ml/hr; Site: right forearm; os 11:15 Follow up: Response: No adverse reaction os 11:15 Drug: Ativan IVP 2 mg Route: IVP; Site: right forearm; os 11:52 Drug: Ativan IVP 2 mg Route: IVP; Site: right antecubital; ld1 12:27 Drug: HYDROmorphone IVP 1 mg Route: IVP; Site: right wrist; ld1 Disposition Summary: 09/25/22 12:34 Discharge Ordered Location: Home sp3 Condition: Stable sp3 Diagnosis - Migraine headaches, anxiety, anxiety induced tachycardia now resolved sp3 Followup: sp3 - With: Leif Qiu MD - When: Upon discharge from the Emergency Department - Reason: Further diagnostic work-up Discharge Instructions: - Discharge Summary Sheet sp3 - Chronic Migraine Headache, [id number] sp3 Forms: - Medication Reconciliation Form sp3 - Thank You Letter sp3 - Antibiotic Education sp3 - Prescription Opioid Use sp3 Prescriptions: - Imitrex 20 mg/Actuation Nasal spray,non-aerosol - inhale 1 spray by INTRANASAL route once daily - x 1 dose; if headache returns, sp3 the dose may be repeated once after 2 hours, not to exceed a total daily dose of 2 sprays; 2 Applicator; Refills: 0, Product Selection Permitted Signatures: Dispatcher [employer] Treasure Purvis, RN RN ld1 Violeta Shin MD MD sp3 David Marshall, RN RN os Rosa Rodriguez RN RN cm10
--- NOTE | 2022-09-25 12:35 | ER ---
Nurse's Notes [facility] Name: Yohana Reeves Age: 41 yrs Sex: Female : 1980 Arrival Date: 09/25/2022 Time: 10:11 Bed 20 Private MD: Edd Friedman Diagnosis: Migraine headaches, anxiety, anxiety induced tachycardia now resolved Presentation: 09/25 10:22 Chief complaint: Patient states: Pt reports migraine x1 week with photophobia, nausea cm10 and anxiety. Pt reports that she was seen here last night for the same complaint and was given "a medication that started with D that helped my pain." Dr. Shin at bedside assessing patient. Coronavirus screen: Vaccine status: Patient reports receiving the 2nd dose of the covid vaccine. Client denies travel out of the [place] in the last 14 days. At this time, the client does not indicate any symptoms associated with coronavirus-19. Ebola Screen: No symptoms or risks identified at this time. 10:22 Method Of Arrival: Ambulatory cm10 10:24 Initial Sepsis Screen: Does the patient meet any 2 criteria? No. Patient's initial cm10 sepsis screen is negative. Does the patient have a suspected source of infection? No. Patient's initial sepsis screen is negative. Risk Assessment: Do you want to hurt yourself or someone else? Patient reports no desire to harm self or others. Onset of symptoms was September 18, 2022. 10:24 Acuity: NICOLASA 3 cm10 Triage Assessment: 10:25 Headache History: The patient has had previous headaches and this one is similar to cm10 previous episodes. General: Appears in no apparent distress. comfortable, Behavior is crying. Pain: Pain currently is 10 out of 10 on a pain scale. Pain began 1 week ago Also complains of nausea, photophobia. Neuro: No deficits noted. Level of Consciousness is awake, alert, Oriented to person, place, time, situation, Quilt Maker are equal bilaterally Moves all extremities. Gait is steady, Speech is normal, Facial symmetry appears normal. Historical: - Allergies: 10:24 No Known Drug Allergies; cm10 - PMHx: 10:24 chronic back pain; depressive disorder; GI Bleed; heart attack due to trauma; Kidney cm10 stones; Migraine; - PSHx: 10:24 section; Emergency laparotomy; cm10 - Immunization history:: Adult Immunizations unknown. - Social history:: Smoking status: unknown. Screenin:30 [facility] ED Fall Risk Assessment (Adult) History of falling in the last 3 months, ml4 including since admission No falls in past 3 months (0 pts) Confusion or Disorientation No (0 pts) Intoxicated or Sedated No (0 pts) Impaired Gait No (0 pts) Mobility Assist Device Used No (0 pt) Altered Elimination No (0 pt) Score/Fall Risk Level 0 - 2 = Low Risk. Abuse screen: Denies threats or abuse. Nutritional screening: No deficits noted. Tuberculosis screening: No symptoms or risk factors identified. Assessment: 11:19 Reassessment: Patient transferred to 20 for closer monitoring. Ativan ordered and ml4 given by FÁTIMA Marshall prior to transferring patient to this RN's care. Per verbal order MD Hien - in 30 min, reassess and anticipate another admin of ativan. 11:22 Reassessment: Patient c/o sharp chest pain \\T\\1102, HR spiked up to 150s. Dr. Shin was os notified. ECG was obtained \\T\\1103. 2nd line started per protocol. Blood work sent to lab for testing. Patient's HR around 120s after 2mg of ativan was administered IV. Report given to Treasure SHINE. Patient moved to room 20 for cardiac monitoring. 11:28 Pain: Complains of pain in head Pain does not radiate. Pain began 2-3 days ago. ml4 Alleviated by medications, but pain returns shortly after meds administered. Neuro: Reports headache in entire Denies blurred vision dizziness, numbness. Respiratory: No deficits noted. 12:27 Reassessment: Pt c/o chest pain. Notified ERP. See MAR for orders. ld1 12:52 Reassessment: Pt d/c IV to right arm. Checked left arm prior to patient leaving - D/C ld1 Left AC IV. Vital Signs: 10:22 BP 142 / 102; Pulse 114; Resp 18; Temp 99; Pulse Ox 97% on R/A; Weight 86.18 kg; Height cm10 5 ft. 2 in. ; Pain 10/10; 10:50 BP 128 / 76; Pulse 84; Resp 18; Pulse Ox 100% ; os 12:28 BP 143 / 101; Pulse 128; Resp 18; Pulse Ox 100% on R/A; Pain 8/10; ld1 12:52 BP 136 / 99; Pulse 102; Resp 18; Pulse Ox 99% on R/A; Pain 2/10; ld1 10:22 Body Mass Index 34.75 (86.18 kg, 157.48 cm) cm10 10:22 Pain Scale: Adult cm10 12:28 Pain Scale: Adult ld1 12:52 Pain Scale: Adult ld1 ED Course: 10:14 Patient arrived in ED. im 10:14 Violeta Shin MD is Attending Physician. sp3 10:14 Edd Frideman MD is Private Physician. im 10:16 Arm band placed on Patient placed in an exam room, on a stretcher. os 10:24 Triage completed. cm10 10:27 David Marshall, FÁTIMA is Primary Nurse. os 11:15 Basic Metabolic Panel Sent. os 11:15 CBC with Diff Sent. os 11:15 Troponin HS Sent. os 11:29 Inserted saline lock: 20 gauge in right forearm, using aseptic technique. os 11:30 Awaiting lab results. ml4 11:31 Patient has correct armband on for positive identification. Bed in low position. Call ml4 light in reach. Side rails up X2. Report received from FÁTIMA Cordova. Client placed on continuous cardiac and pulse oximetry monitoring. NIBP monitoring applied. school lunch monitor on. Door closed. Warm blanket given. 11:56 XRAY Chest (1 view) In Process Unspecified. EDMS 12:34 Leif Qiu MD is Referral Physician. sp3 12:53 No provider procedures requiring assistance completed. IV discontinued, intact, ld1 bleeding controlled, No redness/swelling at site. Administered Medications: 10:47 Drug: Promethazine IVP 12.5 mg Route: IVP; Site: right forearm; os 11:16 Follow up: Response: No adverse reaction os 10:48 Drug: Ketorolac IVP 30 mg Route: IVP; Site: right forearm; os 11:15 Follow up: Response: No adverse reaction os 10:48 Drug: NS 0.9% IV 1000 ml Route: IV; Rate: 125 ml/hr; Site: right forearm; os 11:15 Follow up: Response: No adverse reaction os 11:15 Drug: Ativan IVP 2 mg Route: IVP; Site: right forearm; os 11:52 Drug: Ativan IVP 2 mg Route: IVP; Site: right antecubital; ld1 12:27 Drug: HYDROmorphone IVP 1 mg Route: IVP; Site: right wrist; ld1 Medication: 12:54 VIS not applicable for this client. ld1 Outcome: 12:34 Discharge ordered by . sp3 12:53 Discharged to home ambulatory. ld1 12:53 Condition: stable 12:53 Discharge instructions given to patient, Instructed on discharge instructions, follow up and referral plans. medication usage, Demonstrated understanding of instructions, follow-up care, medications, Prescriptions given X 1. 12:54 Patient left the ED. ld1 Signatures: Dispatcher [employer] EDMS Treasure Crawford RN RN ld1 Violeta Shin MD MD sp3 David Marshall, RN RN os Inge Mon Clarissa RN RN cm10 FÁTIMA JoeIII, Guille, RN RN ml4
[2022-09-25 13:23] VITALS: TEMP 99
[2022-09-25 13:31] VITALS: BP 136/99; O2SAT 99
--- NOTE | 2022-09-29 17:59 | EKG ---
Test Date: 2022-09-25 Test Time: 11:03:08 Convention Services Director: OS MEASUREMENT RESULTS: Intervals: Rate: 126 [place]: 134 QRSD: 74 QT: 286 QTc: 414 [place]: P: 69 [place]: 134 QRS: 73 T: -50 INTERPRETIVE STATEMENTS: Sinus tachycardia ST & T wave abnormality, consider inferior ischemia ST & T wave abnormality, consider anterolateral ischemia Abnormal ECG Compared to ECG 09/23/2022 11:37:10 ST (T wave) deviation now present Possible ischemia now present Sinus rhythm no longer present Electronically Signed On 09-29-22 17:53:37 CDT by Jaciel Mathis
--- NOTE | 2022-09-29 17:59 | EKG ---
Test Date: 2022-09-25 Test Time: 11:09:29 Wire Winding Machine Operator: OS MEASUREMENT RESULTS: Intervals: Rate: 141 OR: 120 QRSD: 74 QT: 360 QTc: 551 [place]: P: 66 OR: 120 QRS: 70 T: 85 INTERPRETIVE STATEMENTS: Sinus tachycardia ST & T wave abnormality, consider inferior ischemia Abnormal ECG Compared to ECG 09/25/2022 11:03:08 No significant changes Electronically Signed On 09-29-22 17:53:10 CDT by Jaciel Mathis
== END 2022-09-25 12:54 | disposition home or self-care (01) ==
LOC: ER 10:11
DX: G43.909 Migraine, unspecified, not intractable, without status migrainosus (principal); F41.9 Anxiety disorder, unspecified; F32.A Depression, unspecified
CPT/HCPCS: 93005 ×2; 85025; 80048; 36415; 85379; 84484; 71045; 99285; J0153; J2550; J1170; J7030

== ENCOUNTER 2022-12-21 00:06 | Emergency (ER) | payer BC ==
--- OUTSIDE RECORDS SUMMARY | 2022-12-21 00:15 | XMS REPORT | Continuity of Care Document ---
:1980 Author Organization [facility] t Address [address] [place] [address] [place] [id number] Care Team Providers Name Role Phone None, None Primary Care Physician Joy Hitchcock RN Attending Clinician Unavailable Linnette Feng RN Attending Clinician Unavailable Ollie Tobar MD Attending Clinician Di Lundberg MD Attending Clinician [phone] Viviane DO Eric Attending Clinician CAITIE SHIPLEY Attending Clinician Unavailable Caitie Klein Attending Clinician ANGEL ATKINS Attending Clinician Unavailable Elise Rice NP Attending Clinician ELISE RICE Attending Clinician Unavailable Pob, [facility] Attending Clinician Unavailable Ariel Britt MD Attending Clinician ARIEL BRITT Attending Clinician Unavailable Doctor Unassigned, [place] Attending Clinician Unavailable Paul Sams MD Attending Clinician PAUL SAMS Attending Clinician Unavailable _LARRY_Stan_Edis Attending Clinician Unavailable Alex Pierce Attending Clinician [phone] Megan Aranda Attending Clinician Ann Cardozo DO Attending Clinician Angelo Robles MD Attending Clinician Naun Bush MD Attending Clinician Bubba LLOYD Mark Esdras Attending Clinician Candido Isabel Attending Clinician CANDIDO RAMIREZ Attending Clinician Unavailable ERIC TAVARES Admitting Clinician Unavailable ACITIE SHIPLEY Admitting Clinician Unavailable DILLON_LARRY_Stan_J Admitting Clinician Unavailable Naun Bush MD Admitting Clinician CANDIDO RAMIREZ Admitting Clinician Unavailable Payers Payer Name Policy Type Policy Number Effective Date Expiration Date S ource [place] OF [id number] 2021 [facility] 00:00:00 TML GBRP CLAIMS [id number] 2017 00:00:00 [place]ML [place] [id number] 2021 00:00:00 TML - [facility] [id number] 2017 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 PLAN 00:00:00 - [place] TRUE CHOICE (PPO) Problems Condition Condition Condition Status Onset Resolution Last Treating Co mments Source Name Details Category Date Date Treatment Clinician Date Intractabl Intractabl Disease Active M ethodi e e 6-16 st headache, headache, 00:00: Hosp se unspecifie unspecifie 00 l d d chronicity chronicity pattern, pattern, unspecifie unspecifie d headache d headache type type Tachycardi Tachycardi Disease Active 2019-04 U nivers a a 0-28 ity of 00:00: [address] Branch Family Family Disease Active 2019-04 Univers history of history of 0-28 it y of early CAD [place] [facility] [place] Chest pain Chest pain Disease Active 2019-04 U nivers 0-27 ity of 00:00: [address] Branch Obesity Obesity Disease Active 2019-04 Univers (BMI (BMI 0-27 ity of 30-39.9) 30-39.9) 00:00: Medical Branch RLQ RLQ Disease Active Univers abdominal abdominal 9-24 ity of pain pain 00:00: Medical Branch Anxiety Anxiety Disease Active Univers 9-24 ity of 00:00: Medical Branch Chronic Chronic Disease Active Univers low back low back 9-24 ity of pain pain 00:00: Medical Branch Anemia Anemia Problem Active [facility] 8- Medical 00:00: 00 Hypertensi Hypertensi Problem Active [facility] ve ve 11-11 Medical disorder Disorder 00:00: 00 Hyperchole Hyperchole Problem Active [facility] sterolemia sterolemia 11-11 Me dical 00:00: 00 Allergies, Adverse Reactions, Alerts Allergy Allergy Status Severity Reaction(s) Onset Inactive Treating Comm ents Source Name Type Date Date Clinician bismuttavo DA Active [place] [facility] subsalic 7-29 Clear ylate 00:00: Jones 00 [facility] NO KNOWN Allergy Active [facility] NO KNOWN Drug Active [facility] [place] [place] ALLERGIE Class ity of S [facility] Social History Social Habit Start Date Stop Date Quantity Comments Source Gender identity [facility] Sexual orientation [facility] History of tobacco Current smoker [facility] History of Social 2022-09-30 2022-09-[address] function 00:00:00 00:00:00 Hospital Tobacco use and 2022-09-27 2022-09-27 Smokeless tobacco Me thodist exposure 00:00:00 00:00:00 non-user Hospital Exposure to 2022-06-23 2022-07-03 Not sure [facility] SARS-CoV-2 (event) 00:00:00 10:38:00 Alcohol intake 2021-10-15 2021-10-15 Ex-drinker NOREEN Lynn es 00:00:00 00:00:00 (finding) Medical Center History [facility] 2020-02-08 2020-02-08 99 University o f Alcohol Frequency 00:00:00 00:00:00 [facility] SDOH 2020-02-08 2020-02-08 99 University o f Alcohol Std Drinks 00:00:00 00:00:00 [facility] History SDOH 2020-02-08 2020-02-08 99 University o f Alcohol Binge 00:00:00 00:00:00 [facility] al Branch Tobacco Comment 2020-02-07 2020-02-07 rarely Universit y of 00:00:00 00:00:00 [facility] Alcohol Comment 2020-02-07 2020-02-07 occasionally Univers ity of 00:00:00 00:00:00 [facility] Cigarettes smoked 2020-01-24 2020-01-24 Univers ity of current (pack per 00:00:00 00:00:00 [place] ) - Reported Branch Sex Assigned At [address] [facility] [address] [facility] 00:00:00 00:00:00 [facility] Center Smoking Status Start Date Stop Date Source Heavy Tobacco Smoker Ting lan Ex-smoker 2022-09-27 00:00:00 2022-09-27 00:00:00 [facility] Medications Ordered Filled Start Stop Current Ordering Indication Dosage Frequency Signature Comments Components Source Medication Medication Date Date Medication? Clinician (SIG) Name Name ALPRAZolam Yes 2mg QD Take 4 Metho di (XANAX) 0.5 6-21 tablets (2 st MG tablet 13:32: mg total) Hos denita 02 by mouth l daily. ARIPiprazol Yes aripiprazo Methodi e (ABILIFY) -[address] 5 MG tablet 13:32: tablet Hosp se 02 TAKE 1 & l 1/2 TABLETS BY MOUTH NIGHTLY bisoproloL- Yes bisoprolol Methodi hydrochloro 6-[address] thiazide 13:32: mg-hydroch Hos denita (ZIAC) 02 lorothiazi l 5-6.25 mg de 6.25 mg per tablet tablet TAKE 1 TABLET BY MOUTH ONCE DAILY traZODone Yes trazodone Met hodi (DESYREL) 6-[address] 50 MG 13:32: tablet Hospita tablet 02 TAKE 1 OR l 2 TABLETS BY MOUTH ONCE DAILY NEEDED zolpidem Yes zolpidem Metho di (AMBIEN) 10 6-[address] mg tablet 13:32: tablet Hospit a 02 TAKE 1 l TABLET BY MOUTH AT BEDTIME NEEDED MAY MAKE DROWSY atorvastati 2022- No 40mg QD Take 1 Met hodi n (LIPITOR) 09-30 tablet (40 s t 40 mg 00:00: 04:59 mg total) Hospit a tablet 00 :00 by mouth l nightly for 30 days. butalbital- 2022- No 1{tbl} Q4H Take 1 M ethodi acetaminoph 09-[address] en-caff 00:00: 04:59 mouth Hospita (FIORICET) 00 :00 every 4 l 50-325-40 (four) mg per hours as tablet needed for headaches for up to 30 days. butalbital- 2022- No 1{tbl} 1 tablet, Univers acetaminoph 09-15 Oral, ity of en-caff 15:00: 16:51 ONCE, 1 [place] (ESGIC) 00 :00 dose, On Medical 50-325-40 Thu09/15/22 Bran ch mg tablet 1 at 1000, tablet LORENE FENTanyl PF No 25ug 25 mcg, Un carol (SUBLIMAZE 09-15 Slow IV ity o f (PF)) 14:45: 14:33 Push, [place] injection 00 :00 ONCE, 1 [...] Thu09/15/22 at 0945, STAT iopamidol 2022- No [id number] 130mL 130 mL, Univers (ISOVUE 09-15 Intravenou ity o f 370-500 mL) 14:20: 14:20 s, ONCE, 1 [place] injection 00 :00 dose, On Medica l 130 mL Thu09/15/22 Branch at 0945, Routine cefTRIAXone 2022- No 1000mg 1,000 mg, Univers (ROCEPHIN) 09-15 IV ity of 1,000 mg in 14:15: 14:25 Piggyback, [place] NaCl 0.9% 00 :00 ONCE, 1 Medical [...] IV ity of (PF)) 13:45: 13:49 Push, [place] injection 00 :00 ONCE, 1 Medical 20 [...] Thu09/15/22 Branch at 0845, LORENE dicyclomine Yes [id number] 20mg Take 1 Univers 20 mg 09-15 tablet by ity of tablet 00:00: mouth 4 [place] 00 (four) Medical times Branch daily as needed for Abdominal pain. cefdinir 2022-0 2022- No [id number] 300mg Take 1 Univers 300 mg 09-15 capsule by ity of capsule 00:00: 04:59 mouth [place] 00 :00 every 12 Medical (twelve) Branch hours for 7 days. lamoTRIgine 2022-0 Yes 200mg QD Take 200 U T (LaMICtal) 3-23 mg by Health 200 MG 11:03: mouth 1 tablet 19 (one) time each day. Lurasidone 2022-0 Yes 120mg QD Take 120 UT HCl 3-23 mg by [facility] (Latuda) 11:02: mouth 1 120 MG 47 [...] Take 1 UT -acetaminop 3-23 tablet by [facility] hen (Fiatt) 11:02: mouth if 5-325 MG 08 needed. tablet zolpidem 0 Yes 10mg Take 10 mg UT (Ambien) 10 3-23 by mouth. Hea lth MG tablet 11:02: 07 FLUoxetine 2022-0 Yes 80mg Take 80 mg U T [...] 14:24: daily. Medica l 12 Center montelukast 2021-0 Yes 10mg QD Take [address] (SINGULAIR) 7-05 by mouth Luke s 10 mg 14:24: nightly. Medical tablet 12 Center benzonatate 2021-0 Yes 100mg Take [address] (TESSALON) 7-05 mg by [facility] 100 MG 14:24: mouth 3 Medical capsule 12 (three) Center times daily as needed for Cough. meloxicam 2021-0 Yes 15mg QD Take [address] (MOBIC) 15 7-05 by mouth [facility]ukes MG tablet 14:24: daily. Medica l [address] [place] [address] montelukast 0 Yes 10mg QD Take [address] (SINGULAIR) 7-05 by mouth Luke s 10 mg 14:24: nightly. Medical tablet [address] [place] [address] benzonatate 2021-0 Yes 100mg Take [address] (TESSALON) 7-05 mg by [facility] 100 MG 14:24: mouth 3 Medical capsule 12 (three) Center times daily as needed for Cough. meloxicam 2021-0 Yes 15mg QD Take [address] (MOBIC) 15 7-05 by mouth [facility]ukes MG tablet 14:24: daily. Medica l [address] [place] [address] montelukast 0 Yes 10mg QD Take [address] (SINGULAIR) 7-05 by mouth Luke s 10 mg 14:24: nightly. Medical tablet [address] [place] [address] benzonatate 0 Yes 100mg Take [address] (TESSALON) 7-05 mg by [facility] 100 MG 14:24: mouth 3 Medical capsule 12 (three) Center times daily as needed for Cough. meloxicam 2021-0 Yes 15mg QD Take [address] (MOBIC) 15 7-05 by mouth [facility]ukes MG tablet 14:24: daily. Medica l [address] [place] [address] montelukast 0 Yes 10mg QD Take [address] (SINGULAIR) 7-05 by mouth Luke s 10 mg 14:24: nightly. Medical tablet [address] [place] [address] benzonatate 2021-0 Yes 100mg Take [address] (TESSALON) 7-05 mg by [facility] 100 MG 14:24: mouth 3 Medical capsule 12 (three) Center times daily as needed for Cough. meloxicam 2021-0 Yes 15mg QD Take [address] (MOBIC) 15 7-05 by mouth [facility]ukes MG tablet 14:24: daily. Medica l [address] [place] [address] montelukast 0 Yes 10mg QD Take [address] (SINGULAIR) 7-05 by mouth Luke s 10 mg 14:24: nightly. Medical tablet 12 [place] benzonatate 2021-0 Yes 100mg Take [address] (TESSALON) 7-05 mg by [facility] 100 MG 14:24: mouth 3 Medical capsule 12 (three) Center times daily as needed for Cough. meloxicam 2021-0 Yes 15mg QD Take [address] (MOBIC) 15 7-05 by mouth Lukes MG tablet 14:24: daily. Medica l 12 [place] montelukast 0 Yes 10mg QD Take [address] (SINGULAIR) 7-05 by mouth Luke s 10 mg 14:24: nightly. Medical tablet 12 [place] benzonatate 0 Yes 100mg Take [address] (TESSALON) 7-05 mg by [facility] 100 MG 14:24: mouth 3 Medical capsule 12 (three) Center times daily as needed for Cough. meloxicam 2021-0 Yes 15mg QD Take [address] (MOBIC) 15 7-05 by mouth [facility]ukes MG tablet 14:24: daily. Medica l [address] [place] [address] montelukast 0 Yes 10mg QD Take [address] (SINGULAIR) 7-05 by mouth Luke s 10 mg 14:24: nightly. Medical tablet 12 [place] butalbital- 2021- No 1{tbl} Take 1 C [...] Headaches for up to 5 days. morpHINE 2020-2020- No 4mg 4 mg, Slow Un carol injection 4 07-23 IV Push, ity of mg 19:15: 18:10 ONCE, 1 [place] 00 :00 dose, Mon Medical 07/23/20 at Branch 1415, STAT ondansetron 2020- No 4mg 4 mg, Slow Univers (ZOFRAN 07-23 IV Push, ity of (PF)) 18:00: 16:55 ONCE, 1 [place] injection 4 00 :00 dose, Mon Med ical mg 07/23/20 at Branch 1300, LORENE ketorolac 2020-2020- No 30mg 30 mg, Unive rs (TORADOL) 07-23 Slow IV ity of injection 18:00: 16:55 Push, [place] 30 mg 00 :00 ONCE, 1 Medical dose, Mon Branch 07/23/20 at 1300, LORENE
[facility] Restricted medication : MEGAN LYONS iohexol 2020- No [id number] 120mL 120 mL, Univers (OMNIPAQUE 07-2312 Intravenou it y of 350 17:15: 17:10 s, ONCE, 1 [place] BULK-150 00 :00 dose, Mon Medica l mL) 07/23/20 at Branch injection 1215, 120 mL Routine ondansetron Yes [id number] 4mg Take 1 Univers (ZOFRAN 4-12 tablet by ity of ODT) 4 mg 00:00: mouth [place] disintegrat 00 every 8 Medic al ing tablet (eight) Branch hours as needed for Nausea and Vomiting (N/V). ondansetron Yes [id number] 4mg Take 1 Univers (ZOFRAN 4-12 tablet by ity of ODT) 4 mg 00:00: mouth [place] disintegrat 00 every 8 Medic al ing tablet (eight) Branch hours as needed for Nausea and Vomiting (N/V). ondansetron Yes [id number] 4mg Take 1 Univers (ZOFRAN 4-12 tablet by ity of ODT) 4 mg 00:00: mouth [place] disintegrat 00 every 8 Medic al ing tablet (eight) Branch hours as needed for Nausea and Vomiting (N/V). ondansetron Yes [id number] 4mg Take 1 Univers (ZOFRAN 4-12 tablet by ity of ODT) 4 mg 00:00: mouth [place] disintegrat 00 every 8 Medic al ing tablet (eight) Branch hours as needed for Nausea and Vomiting (N/V). ondansetron 2020- Yes [id number] 4mg Take 1 Univers (ZOFRAN 4-12 tablet by ity of ODT) 4 mg 00:00: mouth [place] disintegrat 00 every 8 Medic al ing tablet (eight) Branch hours as needed for Nausea and Vomiting (N/V). ondansetron Yes [id number] 4mg Take 1 Univers (ZOFRAN 4-12 tablet by ity of ODT) 4 mg 00:00: mouth [place] disintegrat 00 every 8 Medic al ing tablet (eight) Branch hours as needed for Nausea and Vomiting (N/V). ondansetron Yes [id number] 4mg Take 1 Univers (ZOFRAN 4-12 tablet by ity of ODT) 4 mg 00:00: mouth [place] disintegrat 00 every 8 Medic al ing tablet (eight) Branch hours as needed for Nausea and Vomiting (N/V). ondansetron 2020-0 Yes [id number] 4mg Take 1 Univers (ZOFRAN 4-12 tablet by ity of ODT) 4 mg 00:00: mouth [place] disintegrat 00 every 8 Medic al ing tablet (eight) Branch hours as needed for Nausea and Vomiting (N/V). ondansetron Yes 4mg Take 1 Meth nadya ODT 4-12 tablet (4 st (ZOFRAN-ODT 00:00: mg total) H ospita ) 4 MG 00 by mouth. l disintegrat ing tablet butorphanol 2020- No 1mg 1 mg, IV U nivers (STADOL) 04-28 Push, ity of injection 1 00:00: 23:22 ONCE, 1 [place] mg 00 :00 dose, Fri Medical 04/27/20 at [place] 1800, Routine proMETHazin No 25mg 25 mg, IV Univers e 04-27 Piggyback, ity of (PHENERGAN) 22:45: 22:45 ONCE, 1 [place] 25 mg in 00 :00 dose, Fri Medica l NaCl 0.9% 04/27/20 at [facility] ch (NS) 50 mL 1645, 50 piggyback mL LORazepam No 1mg 1 mg, Slow U nivers (ATIVAN) 04-27 IV Push, ity of injection 1 21:30: 20:41 ONCE, 1 [place] mg 00 :00 dose, Fri Medical 04/27/20 at [place] 1530, STAT butalbital- 2020- No 1{tbl} 1 [...] 0-28 mouth ity of (BYSTOLIC 19:30: daily. [place] ORAL) 22 Medical Branch zolpidem 2019-04 Yes 10mg Take 10 mg Uni vers (AMBIEN) 10 0-28 by mouth ity of mg tablet 19:30: at [place] [address] bedtime. Medical Branch FLUoxetine 2019-04 Yes 80mg Take 80 mg U nivers (PROZAC) 40 0-28 by mouth ity of mg capsule 19:30: daily. [place] [address] Medical Branch ARIPiprazol 2019-04 Yes 5mg Take [...] 0-28 mouth ity of (BYSTOLIC 19:30: daily. [place] ORAL) 22 Medical Branch zolpidem 2019-04 Yes 10mg Take 10 mg Uni vers (AMBIEN) 10 0-28 by mouth ity of mg tablet 19:30: at [place] [address] bedtime. Medical Branch FLUoxetine 2019-04 Yes 80mg Take 80 mg U nivers (PROZAC) 40 0-28 by mouth ity of mg capsule 19:30: daily. [address] ARIPiprazol 2019-04 Yes 5mg Take 5 mg U nivers e (ABILIFY) 0-28 by mouth ity of 5 mg tablet 19:30: daily. [address] HYDROcodone 2019-04 Yes 1{tbl} Take 1 Un carol -acetaminop 0-28 tablet by ity of hen (NORCO) 19:30: mouth 2 [place] as 5-325 mg 22 (two) Medical tablet times [place] daily. venlafaxine 2019-04 Yes 75mg Take 75 mg Univers XR (EFFEXOR 0-28 by mouth ity of XR) 75 mg 19:30: daily with [place] 24 hr 22 breakfast. Medical capsule Branch nebivolol 2019-04 Yes Take by Unive rs HCl 0-28 mouth ity of (BYSTOLIC 19:30: daily. [address] zolpidem 2019-04 Yes 10mg Take 10 mg Uni vers (AMBIEN) 10 0-28 by mouth ity of mg tablet 19:30: at [place] [address] bedtime. Medical Branch FLUoxetine 2019-04 Yes 80mg Take 80 mg U nivers (PROZAC) 40 0-28 by mouth ity of mg capsule 19:30: daily. [address] ARIPiprazol 2019-04 Yes 5mg Take 5 mg U nivers e (ABILIFY) 0-28 by mouth ity of 5 mg tablet 19:30: daily. [address] HYDROcodone 2019-04 Yes 1{tbl} Take 1 [...] 0-28 mouth ity of (BYSTOLIC 14:30: daily. [place] ORAL) 22 Medical Branch zolpidem 2019-04 Yes 10mg Take 10 mg Uni vers (AMBIEN) 10 0-28 by mouth ity of mg tablet 14:30: at [place] [address] bedtime. Medical Branch FLUoxetine 2019-04 Yes 80mg Take 80 mg U nivers (PROZAC) 40 0-28 by mouth ity of mg capsule 14:30: daily. [place] [address] Medical Branch ARIPiprazol 2019-04 Yes 5mg Take 5 mg U nivers e (ABILIFY) 0-28 by mouth ity of 5 mg tablet 14:30: daily. [place] 22 [place] Branch HYDROcodone [...] 0-28 mouth ity of (BYSTOLIC 14:30: daily. [facility]) 22 Medical Branch zolpidem 2019-04 Yes 10mg Take 10 mg Uni vers (AMBIEN) 10 0-28 by mouth ity of mg tablet 14:30: at [place] [address] bedtime. Medical Branch FLUoxetine 2019-04 Yes 80mg Take 80 mg U nivers (PROZAC) 40 0-28 by mouth ity of mg capsule 14:30: daily. [place] [address] Medical Branch ARIPiprazol 2019-04 Yes 5mg Take [...] 0-28 mouth ity of (BYSTOLIC 14:30: daily. [place] ORAL) Medical Branch zolpidem 2019-04 Yes 10mg Take 10 mg Uni vers (AMBIEN) 10 0-28 by mouth ity of mg tablet 14:30: at [place] [address] bedtime. Medical Branch FLUoxetine 2019-04 Yes 80mg Take 80 mg U nivers (PROZAC) 40 0-28 by mouth ity of mg capsule 14:30: daily. [place] [address] Medical Branch ARIPiprazol 2019-04 Yes 5mg Take 5 mg U nivers e (ABILIFY) 0-28 by mouth ity of 5 mg tablet 14:30: daily. [facility] 22 Medical Branch HYDROcodone 2019-04 [...] 0-28 mouth ity of (BYSTOLIC 14:30: daily. [place] ORAL) Medical Branch zolpidem 2019-04 Yes 10mg Take 10 mg Uni vers (AMBIEN) 10 0-28 by mouth ity of mg tablet 14:30: at [place] [address] bedtime. Medical Branch FLUoxetine 2019-04 Yes 80mg Take 80 mg U nivers (PROZAC) 40 0-28 by mouth ity of mg capsule 14:30: daily. [place] [address] Medical Branch ARIPiprazol 2019-04 Yes 5mg Take 5 mg U nivers e (ABILIFY) 0-28 by mouth ity of 5 mg tablet 14:30: daily. [facility] 22 Medical Branch HYDROcodone 2019-04 Yes 1{tbl} [...] 0-28 mouth ity of (BYSTOLIC 14:30: daily. [place] ORAL) Medical Branch zolpidem 2019-04 Yes 10mg Take 10 mg Uni vers (AMBIEN) 10 0-28 by mouth ity of mg tablet 14:30: at [place] [address] bedtime. Medical Branch FLUoxetine 2019-04 Yes 80mg Take 80 mg U nivers (PROZAC) 40 0-28 by mouth ity of mg capsule 14:30: daily. [place] [address] Medical Branch ARIPiprazol 2019-04 Yes 5mg Take 5 mg U nivers e (ABILIFY) 0-28 by mouth ity of 5 mg tablet 14:30: daily. [facility] 22 Medical Branch HYDROcodone 2019-04 [...] 0-28 mouth ity of (BYSTOLIC 14:30: daily. [place] ORAL) Medical Branch zolpidem 2019-04 Yes 10mg Take 10 mg Uni vers (AMBIEN) 10 0-28 by mouth ity of mg tablet 14:30: at [place] [address] bedtime. Medical Branch FLUoxetine 2019-04 Yes 80mg Take 80 mg U nivers (PROZAC) 40 0-28 by mouth ity of mg capsule 14:30: daily. [place] [address] Medical Branch ARIPiprazol 2019-04 Yes 5mg Take 5 mg U nivers e (ABILIFY) 0-28 by mouth ity of 5 mg tablet 14:30: daily. [facility] 22 Medical Branch HYDROcodone 2019-04 [...] 0-28 mouth ity of (BYSTOLIC 14:30: daily. [place] ORAL) Medical Branch zolpidem 2019-04 Yes 10mg Take 10 mg Uni vers (AMBIEN) 10 0-28 by mouth ity of mg tablet 14:30: at [place] [address] bedtime. Medical Branch FLUoxetine 2019-04 Yes 80mg Take 80 mg U nivers (PROZAC) 40 0-28 by mouth ity of mg capsule 14:30: daily. [place] [address] Medical Branch ARIPiprazol 2019-04 Yes 5mg Take 5 mg U nivers e (ABILIFY) 0-28 by mouth ity of 5 mg tablet 14:30: daily. [facility] Medical Branch HYDROcodone 2019-04 Yes 1{tbl} [...] [place] 00 First dose Medical on Thu Branch 02/08/20 at 0900, Until Discontinu ed, Routine pantoprazol [...] 150mg 150 mg, Un carol XR (EFFEXOR 0- Oral, QAM ity of XR) 24 hr 13:00: WITH [place] capsule 150 00 BREAKFAST, Me dical mg First dose Branch on Thu02/08/20 at 0800, Until Discontinu ed, Routine zolpidem 2019-04 Yes 10mg 10 mg, Univers (AMBIEN) 0 Oral, QHS, ity o f tablet 10 02:00: First dose [place] mg 00 on [facility] 02/07/20 Branch at 2100, Until Discontinu ed, Routine NaCl 0.9% 2019-04 2020- No IV Univers (NS) IV 002-07 Infusion, ity of infusion 02:00: 09:59 at 125 [place] 00 :00 mL/hr, Medical CONTINUOUS Branch , Starting Thu02/07/20 at 2100, Until Thu02/08/20 at 0459, Routine HYDROcodone 2019-04 Yes 1{tbl} 1 tablet, Univers -acetaminop 0 Oral, BID, it y of hen (NORCO 01:00: First dose [place] 5) 5-325 mg 00 on [facility] l tablet 1 02/07/20 Branch tablet at [...] IV Push, ity of mg 00:21: 00:20 Q4[facility], [place] 44 :44 Starting Medical [facility] 02/07/20 at 192, Until 02/08/20 at 1920, Routine, Pain (scale 7-10), Chest pain acetaminoph 2019-04 2020- No 1{tbl} 1 tablet, Univers en-codeine 02-09 Oral, ity of (TYLENOL 00:21: 00:20 Q6HPRN, [place] #3) 300-30 33 :33 Starting Medic al mg tablet 1 [facility] tablet 02/07/20 at 192, Until Cons[place] 02/09/20 at 192, Routine, Pain (scale 4-6) acetaminoph 2019-04 Yes 650mg 650 mg, Un carol en Oral, ity of (TYLENOL) 00:21: Q6[place], [place] tablet 650 31 Starting Medic al mg [facility] 02/07/20 at 192, Until Discontinu ed, Routine, Pain (scale 1-3) FENTanyl PF 2019-04 2020- No 100ug 100 mcg, Univers (SUBLIMAZE 02-06 Slow IV ity o f (PF)) 23:30: 22:26 Push, [place] injection 00 :00 ONCE, 1 Medical 100 mcg dose, [facility] 02/07/20 at 1830, STAT nitroglycer 2019-04- No .4mg 0.4 mg, Un carol in 02-06 Sublingual ity of (NITROSTAT) 22:30: 21:30 , ONCE, 1 [place] sublingual 00 :00 dose, [facility] tablet 0.4 02/07/20 Branc h [...] of 350 21:30: 21:30 s, ONCE, 1 [place] BULK-150 00 :00 dose, Tue Medica l mL) 02/07/20 Branch injection at 1630, 120 mL Routine ondansetron 2019-04 2020- No 4mg 4 mg, Slow Univers (ZOFRAN 0-27 10-27 IV Push, ity of (PF)) 21:30: 20:30 ONCE, 1 [place] injection 4 00 :00 dose, Tue Med ical mg 02/07/20 Branch at 1630, LORENE morpHINE 2019-04 2020- No 4mg 4 mg, Slow Un carol injection 4 0-27 10-27 IV Push, ity of mg 21:30: 20:30 ONCE, 1 [place] 00 :00 dose, [facility] Medical 02/07/20 Branch at 1630, STAT morpHINE 2019-04 2020- No 4mg 4 mg, Slow Un carol injection 4 0-14 10-14 IV Push, ity of mg 02:15: 01:13 ONCE, 1 [place] 00 :00 dose, [facility] Medical 01/24/20 Branch at 2115, STAT ondansetron 2019-04 2020- No 4mg 4 mg, Slow Univers (ZOFRAN 0-14 10-14 IV Push, ity of (PF)) 02:15: 01:13 ONCE, 1 [place] injection 4 00 :00 dose, Tue Med [...] ity of (PF)) 01:00: 23:47 ONCE, 1 [place] injection 4 00 :00 dose, Tue Med ical mg 01/24/20 Branch at 2000, LORENE morpHINE 2019-04 2020- No 4mg 4 mg, Slow Un carol injection 4 0-14 10-13 IV Push, ity of mg 01:00: 23:47 ONCE, 1 [place] 00 :00 dose, Tue Medical 01/24/20 Branch at 2000, STAT iohexol 2019- 2020- No 120mL 120 mL, Unive rs (OMNIPAQUE 0-13 10-13 Intravenou it y of 350 23:45: 23:45 s, ONCE, 1 [place] BULK-150 00 :00 dose, Tue Medica l mL) 01/24/20 Branch injection at 1845, 120 mL Routine zolpidem 2019-04 Yes 10mg Take 10 mg Uni vers (AMBIEN) 10 0-13 by mouth ity of mg tablet 22:12: at [place] [address] bedtime. Medical Branch FLUoxetine 2019-04 Yes 80mg Take 80 mg U nivers (PROZAC) 40 0-13 by mouth ity of mg capsule 22:12: daily. [place] [address] Medical Branch ARIPiprazol 2019- Yes 5mg Take [...] tablet by ity o f 00:00: mouth [place] [address] every 6 Medical (six) Branch hours as needed for Pain (scale 4-6). Indication s: acute pain ondansetron 2019- Yes [id number] 8mg Take 2 Univers 4 mg tablet 0-13 tablets by it y of 00:00: mouth [place] [address] every 8 Medical (eight) Branch hours as needed for Nausea and Vomiting (N/V). ondansetron 2020-1 Yes [id number] 8mg Take 2 Univers 4 mg tablet 0-13 tablets by it y of 00:00: mouth [place] 00 every 8 Medical (eight) Branch hours as needed for Nausea and Vomiting (N/V). ondansetron 2020-1 Yes [id number] 8mg Take 2 Univers 4 mg tablet 0-13 tablets by it y of 00:00: mouth [place] 00 every 8 Medical (eight) Branch hours as needed for Nausea and Vomiting (N/V). ondansetron 2020-1 Yes [id number] 8mg Take 2 Univers 4 mg tablet 0-13 tablets by it y of 00:00: mouth [place] 00 every 8 Medical (eight) Branch hours as needed for Nausea and Vomiting (N/V). ondansetron 2020-1 Yes [id number] 8mg Take 2 Univers 4 mg tablet 0-13 tablets by it y of 00:00: mouth [place] 00 every 8 Medical (eight) Branch hours as needed for Nausea and Vomiting (N/V). ondansetron 2020-1 Yes [id number] 8mg Take 2 Univers 4 mg tablet 0-13 tablets by it y of 00:00: mouth [place] 00 every 8 Medical (eight) Branch hours as needed for Nausea and Vomiting (N/V). ondansetron 2020-1 Yes [id number] 8mg Take 2 Univers 4 mg tablet 0-13 tablets by it y of 00:00: mouth [place] 00 every 8 Medical (eight) Branch hours as needed for Nausea and Vomiting (N/V). ondansetron 2020-1 Yes [id number] 8mg Take 2 Univers 4 mg tablet 0-13 tablets by it y of 00:00: mouth [place] 00 every 8 Medical (eight) Branch hours as needed for Nausea and Vomiting (N/V). ondansetron 2020-1 Yes [id number] 8mg Take 2 Univers 4 mg tablet 0-13 tablets by it y of 00:00: mouth [place] 00 every 8 Medical (eight) Branch hours as needed for Nausea and Vomiting (N/V). ondansetron 2020-1 Yes [id number] 8mg Take 2 Univers 4 mg tablet 0-13 tablets by it y of 00:00: mouth [place] 00 every 8 Medical (eight) Branch hours as needed for Nausea and Vomiting (N/V). ciprofloxac 2020-1 Yes [id number] 500mg Take 1 Univers in HCl 500 [...] Indication s: acute pain ondansetron 2019-04 Yes [id number] 8mg Take 2 Univers 4 mg tablet [...] Indication s: acute pain ciprofloxac 2019-04- No [id number] 500mg Take 1 Univers in HCl 500 [...] 4 mg, Slow Un carol injection 4 06-02- IV Push, ity of mg 19:00: 17:54 ONCE, 1 [place] 00 :00 dose, [facility] Medical 06/02/19 at Branch 1300, STAT iohexol 2020- No 120mL 120 mL, Unive rs [...] Consuelo 06/02/19 at 1130, LORENE dicyclomine Yes [id number] 10mg Take 1 Univers (BENTYL) 10 2-20 capsule by it y of mg capsule 00:00: [place] ([place] Medical times Branch daily as needed for Abdominal pain. dicyclomine Yes [id number] 10mg Take 1 Univers (BENTYL) 10 2-20 capsule by [place] y of mg capsule 00:00: [place] ([place] Medical times Branch daily as needed for Abdominal pain. dicyclomine 2019- No [id number] 10mg Take 1 Univers (BENTYL) 10 2-20 10-13 capsule by i ty of mg capsule 00:00: 00:00 mouth 4 [place] 00 :00 (four) Medical times Branch daily as needed for Abdominal pain. traMADol Yes [id number] 50mg Take 1 Univers (ULTRAM) 50 9-28 [id number] tablet by i ty of mg tablet 00:00: mouth [place] 00 every 8 Medical (eight) Branch hours as needed for Pain (scale 4-6). traMADol Yes [id number] 50mg Take 1 Univers (ULTRAM) 50 9-28 [id number] tablet by i ty of mg tablet 00:00: mouth [place] 00 every 8 Medical (eight) Branch hours as needed for Pain (scale 4-6). traMADol 2020- No [id number] 50mg Take 1 Univers (ULTRAM) 50 9-28 10-13 [id number] tablet by ity of mg tablet 00:00: 00:00 mouth [place] 00 :00 every 8 Medical (eight) Branch hours as needed for Pain (scale 4-6). nebivolol Yes Take by Unive rs HCl - mouth ity of (BYSTOLIC 20:20: daily. [place] ORAL) Medical Branch zolpidem Yes 10mg Take 10 mg Uni vers (AMBIEN) 10 9-26 by mouth ity of mg tablet 20:20: at [place] [address] bedtime. Medical Branch HYDROcodone 2019 Yes 1{tbl} [...] ity of 5 mg tablet 20:20: daily. [facility] s Medical Branch hydrOXYzine Yes 25mg Take 25 mg Univers 25 mg 9-26 by mouth ity of tablet 20:20: at bedtime [place] as needed Medical for Branch Itching or Anxiety. nebivolol Yes Take by Unive rs HCl 9-26 mouth ity of (BYSTOLIC 20:20: daily. [place] ORAL) Medical Branch zolpidem Yes 10mg Take 10 mg Uni vers (AMBIEN) 10 9-26 by mouth ity of mg tablet 20:20: at [place] [address] bedtime. Medical Branch HYDROcodone Yes 1{tbl} Take [...] ity of 5 mg tablet 20:20: daily. [facility] s Medical Branch hydrOXYzine Yes 25mg Take 25 mg Univers 25 mg 9-26 by mouth ity of tablet 20:20: at bedtime [place] as needed Medical for Branch Itching or Anxiety. nebivolol Yes Take by [facility] rs HCl 9- mouth ity of (BYSTOLIC 20:20: daily. [place] ORAL) Medical Branch Abilify Abilify No Abilify [...] Source Systolic blood 2022-09-15 17:00:00 107 mm[Hg] Genesiser gregorio of pressure [facility] Diastolic blood 2022-09-15 17:00:00 79 mm[Hg] Unive rsity of pressure [facility] Heart rate 2022-09-15 17:00:00 86 /[facility] 2022-09-15 17:00:00 16 /min [facility] O[facility] saturation in 2022-09-15 17:00:00 100 /min [facility] Arterial blood by [facility] Pulse oximetry Branch Body temperature 2022-09-15 13:03:00 36.61 Elodia Univ ersity of [facility] Body weight 2022-09-15 13:03:00 79.379 kg Universi [facility] BMI 2022-09-15 13:03:00 32.01 kg/m2 [facility] Systolic blood 2022-07-03 15:56:00 117 mm[Hg] [...] edical Height 2020-08-24 00:00:00 62 [in_i] Ting Mauricio edical BMI (Body Mass 2020-08-24 00:00:00 32 kg/m2 [facility] Index) BP Systolic 2020-08-24 00:00:00 124 mm[Hg] Ting Mauricio edical Body Weight 2020-08-24 00:00:00 175 [lb_av] Ting Mauricio edical Heart rate 2020-07-23 19:30:00 75 /min [facility] [place] [facility] Oxygen saturation in 2020-07-23 19:30:00 100 /min University of Arterial blood by [facility] [facility] Pulse oximetry Branch Systolic blood 2020-07-23 18:00:00 142 mm[Hg] Univer sity of pressure [place] [facility] Diastolic blood 2020-07-23 18:00:00 97 mm[Hg] Unive rsity of pressure [place] [facility] Respiratory rate 2020-07-23 18:00:00 20 /min Univ ersity [facility] [place] [facility] Body temperature 2020-07-23 16:37:00 37.11 Elodia Univ ersity [facility] [place] [facility] Body height 2020-07-23 16:37:00 157.5 cm [facility] [place] [facility] Body weight 2020-07-23 16:37:00 79.379 kg [facility] [place] [facility] BMI 2020-07-23 16:37:00 32.01 kg/m2 [facility] [place] [facility] Heart rate 2020-07-23 19:30:00 75 /min [facility] [place] [facility] Oxygen saturation in 2020-07-23 19:30:00 100 /min University of Arterial blood by [facility] [facility] Pulse oximetry Branch Systolic blood 2020-07-23 18:00:00 142 mm[Hg] Univer sity of pressure [place] [facility] Diastolic blood 2020-07-23 18:00:00 97 mm[Hg] Unive rsity of pressure [place] [facility] Respiratory rate 2020-07-23 18:00:00 20 /min Univ ersity [facility] [place] [facility] Body temperature 2020-07-23 16:37:00 37.11 Elodia Univ ersity [facility] [place] [facility] Body height 2020-07-23 16:37:00 157.5 cm [facility] [place] [facility] Body weight 2020-07-23 16:37:00 79.379 kg [facility] [place] [facility] BMI 2020-07-23 16:37:00 32.01 kg/m2 [facility] [place] [facility] Systolic blood 2020-04-27 23:25:00 112 mm[Hg] Univer sity of pressure [place] [facility] Diastolic blood 2020-04-27 23:25:00 87 mm[Hg] Unive rsity of pressure [place] [facility] Heart rate 2020-04-27 23:25:00 78 /min [facility] [place] [facility] Respiratory rate 2020-04-27 23:25:00 18 /min Univ ersity [facility] [place] [facility] Oxygen saturation in 2020-04-27 23:25:00 99 /min University of Arterial blood by [facility] [facility] Pulse oximetry Branch Body temperature 2020-04-27 17:24:00 37.06 Elodia Univ ersity [facility] [place] [facility] Body height 2020-04-27 17:24:00 157.5 cm [facility] [place] [facility] Body weight 2020-04-27 17:24:00 77.111 kg [facility] [place] [facility] BMI 2020-04-27 17:24:00 31.09 kg/m2 [facility] [place] [facility] Systolic blood 2020-04-27 23:25:00 112 mm[Hg] Univer sity of pressure [place] [facility] Diastolic blood 2020-04-27 23:25:00 87 mm[Hg] Unive rsity of pressure [place] [facility] Heart rate 2020-04-27 23:25:00 78 /min [facility] [place] [facility] Respiratory rate 2020-04-27 23:25:00 18 /min Univ ersity [facility] [place] [facility] Oxygen saturation in 2020-04-27 23:25:00 99 /min University of Arterial blood by [facility] [facility] Pulse oximetry Branch Body temperature 2020-04-27 17:24:00 37.06 Elodia Univ ersity [facility] [place] [facility] Body height 2020-04-27 17:24:00 157.5 cm [facility] [place] [facility] Body weight 2020-04-27 17:24:00 77.111 kg [facility] [place] [facility] BMI 2020-04-27 17:24:00 31.09 kg/m2 [facility] [place] [facility] Systolic blood 2020-02-08 16:45:00 114 mm[Hg] Univer sity of pressure [place] [facility] Diastolic blood 2020-02-08 16:45:00 84 mm[Hg] Unive rsity of pressure [place] [facility] Heart rate 2020-02-08 16:45:00 80 /min [facility] [place] [facility] Body temperature 2020-02-08 16:45:00 36.06 Elodia Univ ersity [facility] [place] [facility] Respiratory rate 2020-02-08 16:45:00 20 /min Univ ersity [facility] [place] [facility] Oxygen saturation in 2020-02-08 16:45:00 96 /min University of Arterial blood by [facility] riky Pulse oximetry Branch Body height 2020-02-08 00:37:00 152.4 cm [facility] [place] [facility] Body weight 2020-02-08 00:37:00 78.019 kg [facility] [place] [facility] BMI 2020-02-08 00:37:00 33.59 kg/m2 [facility] [place] [facility] Systolic blood 2020-02-08 16:45:00 114 mm[Hg] Univer sity of pressure [place] [facility] Diastolic blood 2020-02-08 16:45:00 84 mm[Hg] Unive rsity of pressure [place] [facility] Heart rate 2020-02-08 16:45:00 80 /min [facility] [place] [facility] Body temperature 2020-02-08 16:45:00 36.06 Elodia Univ ersity [facility] [place] [facility] Respiratory rate 2020-02-08 16:45:00 20 /min Univ ersity [facility] [place] [facility] Oxygen saturation in 2020-02-08 16:45:00 96 /min University of Arterial blood by [facility] [facility] Pulse oximetry Branch Body height 2020-02-08 00:37:00 152.4 cm [facility] [place] [facility] Body weight 2020-02-08 00:37:00 78.019 kg [facility] [place] [facility] BMI 2020-02-08 00:37:00 33.59 kg/m2 [facility] [place] [facility] Systolic blood 2020-01-25 02:00:00 134 mm[Hg] Univer sity of pressure [place] [facility] Diastolic blood 2020-01-25 02:00:00 94 mm[Hg] Unive rsity of pressure [place] [facility] Heart rate 2020-01-25 02:00:00 83 /min [facility] [place] [facility] Oxygen saturation in 2020-01-25 02:00:00 96 /min University of Arterial blood by [facility] [facility] Pulse oximetry Branch Respiratory rate 2020-01-25 01:00:00 16 /min Univ ersity [facility] [place] [facility] Body temperature 2020-01-24 22:09:00 37.11 Elodia Univ ersity [facility] [place] [facility] Body height 2020-01-24 22:09:00 157.5 cm [facility] [place] [facility] Body weight 2020-01-24 22:09:00 78.336 kg [facility] [place] [facility] BMI 2020-01-24 22:09:00 31.59 kg/m2 [facility] [place] [facility] Systolic blood 2020-01-25 02:00:00 134 mm[Hg] Univer sity of pressure [place] [facility] Diastolic blood 2020-01-25 02:00:00 94 mm[Hg] Unive rsity of pressure [place] [facility] Heart rate 2020-01-25 02:00:00 83 /min [facility] [place] [facility] Oxygen saturation in 2020-01-25 02:00:00 96 /min University of Arterial blood by [place] zhouwu riky Pulse oximetry Branch Respiratory rate 2020-01-25 01:00:00 16 /min Univ ersity [facility] [place] [facility] Body temperature 2020-01-24 22:09:00 37.11 Elodia Univ ersity [facility] [place] [facility] Body height 2020-01-24 22:09:00 157.5 cm [facility] [place] [facility] Body weight 2020-01-24 22:09:00 78.336 kg [facility] [place] [facility] BMI 2020-01-24 22:09:00 31.59 kg/m2 [facility] [place] [facility] Systolic blood 2019-06-02 19:00:00 126 mm[Hg] Univer sity of pressure [place] [facility] Diastolic blood 2019-06-02 19:00:00 81 mm[Hg] Unive rsity of pressure [place] [facility] Heart rate 2019-06-02 19:00:00 86 /min [facility] [place] [facility] Respiratory rate 2019-06-02 19:00:00 17 /min Univ ersity [facility] [place] [facility] Oxygen saturation in 2019-06-02 19:00:00 96 /min University of Arterial blood by [place] zhouwu riky Pulse oximetry Branch Body temperature 2019-06-02 17:14:00 36.61 Elodia Univ ersity [facility] [place] [facility] Body height 2019-06-02 17:14:00 157.5 cm [facility] [place] [facility] Body weight 2019-06-02 17:14:00 74.844 kg [facility] [place] [facility] BMI 2019-06-02 17:14:00 30.18 kg/m2 [facility] [place] [facility] Systolic blood 2019-06-02 19:00:00 126 mm[Hg] Univer sity of pressure [place] [facility] Diastolic blood 2019-06-02 19:00:00 81 mm[Hg] Unive rsity of pressure [facility] Heart rate 2019-06-02 19:00:00 86 /min [facility] Respiratory rate 2019-06-02 19:00:00 17 /min [facility] Oxygen saturation in 2019-06-02 19:00:00 96 /min University Arterial blood by [facility] Pulse oximetry [place] Body temperature 2019-06-02 17:14:00 36.61 Elodia [facility] [place] [facility] Body height 2019-06-02 17:14:00 157.5 cm [facility] Body weight 2019-06-02 17:14:00 74.844 kg [facility] BMI 2019-06-02 17:14:00 30.18 kg/m2 [facility] Heart rate 2022-09-30 13:00:00 69 /min [facility] Systolic blood 2022-09-30 12:57:56 116 mm[Hg] [facility] pressure Diastolic blood 2022-09-30 12:57:56 80 mm[Hg] [facility] pressure Body temperature 2022-09-30 12:57:56 36.11 Elodia [facility] Respiratory rate 2022-09-30 12:57:56 16 /min [facility] Oxygen saturation in 2022-09-30 12:57:56 98 /min [facility] Arterial blood by Pulse oximetry Body weight 2022-09-30 10:31:00 83.87 kg [facility] BMI 2022-09-30 10:31:00 33.82 kg/m2 [facility] Body height 2022-09-27 01:09:00 157.5 cm [facility] Systolic blood 2021-10-15 17:34:00 121 mm[Hg] [facility] Diastolic blood 2021-10-15 17:34:00 69 mm[Hg] [facility] Heart rate 2021-10-15 17:34:00 68 /min [facility] Respiratory rate 2021-10-15 17:34:00 18 /min [facility] Oxygen saturation in 2021-10-15 17:34:00 100 /min [facility] Arterial blood by Medical Ce nter Pulse oximetry Body temperature 2021-10-15 11:42:00 36.83 Elodia [facility] Body height 2021-10-15 11:42:00 157.5 cm [facility] Body weight 2021-10-15 11:42:00 83.915 kg [facility] BMI 2021-10-15 11:42:00 33.84 kg/m2 [facility] Procedures Procedure Date / Time Performing Clinician Source Performed TTE COMPLETE, WO 2022-09-29 22:47:00 [facility] CONTRAST, W DOPPLER ([id number]) IR LUMBAR PUNCTURE 2022-09-29 16:28:05 Nancy [facility] Branden CSF CELL COUNT WITH 2022-09-29 16:17:00 [facility] DIFFERENTIAL Branden GLUCOSE LEVEL, CSF 2022-09-29 16:[facility] I[facility] SYNTHESIS RATE STUDY 2022-09-29 16:17:00 Nancy [facility] Branden OLIGOCLONAL BANDING, CSF 2022-09-29 16:17:00 [facility] US CAROTID DUPLEX 2022-09-29 14:30:00 [facility] BILATERAL BASIC METABOLIC PANEL 2022-09-29 10:27:00 [facility] MAGNESIUM LEVEL 2022-09-29 10:27:00 [facility] PHOSPHORUS LEVEL 2022-09-29 10:27:00 [facility] ESTIMATED GFR 2022-09-29 10:27:00 [facility] HCG QUALITATIVE, URINE 2022-09-28 22:10:00 [facility] SCREEN TROPONIN T 2022-09-28 10:46:00 [facility] LIPID PANEL 2022-09-28 10:46:00 [facility] ECG ED PRELIMINARY 2022-09-28 00:56:19 Ollie Tobar [facility] INTERPRETATION URINE DRUGS OF ABUSE 2022-09-27 23:00:00 [facility] SCREEN LACTIC ACID LEVEL 2022-09-27 23:00:00 [facility] HEMOGLOBIN A1C 2022-09-27 23:00:00 [facility] THYROID STIMULATING 2022-09-27 23:00:00 [facility] HORMONE T4, FREE 2022-09-27 23:00:00 [facility] C-REACTIVE PROTEIN 2022-09-27 23:00:00 [facility] TROPONIN T 2022-09-27 23:00:00 [facility] TROPONIN T 2022-09-27 19:34:00 [facility] CBC WITH PLATELET AND 2022-09-27 11:06:00 [facility] DIFFERENTIAL [facility] COMPREHENSIVE METABOLIC 2022-09-27 11:06:00 [facility] PANEL [place] MAGNESIUM LEVEL 2022-09-27 11:06:00 [facility] [place] [facility] spital [facility] PHOSPHORUS LEVEL 2022-09-27 11:06:00 ToñoCrist[place]balSev[place] [facility]uc[facility] H ospital [facility] SEDIMENTATION RATE 2022-09-27 11:06:00 [facility] [place] ESTIMATED GFR 2022-09-27 11:06:00 ToñoDiist Ho spital [facility] MRI BRAIN WO CONTRAST 2022-09-27 05:19:00 [facility] MRA HEAD WO CONTRAST 2022-09-27 05:19:00 [facility] MRI BRAIN VENOGRAM 2022-09-27 05:00:00 [facility] CBC WITH PLATELET AND 2022-09-27 02:07:00 Ollie Tobar [facility] DIFFERENTIAL PROTHROMBIN TIME WITH INR 2022-09-27 02:07:00 [facility] PARTIAL THROMBOPLASTIN 2022-09-27 02:07:00 [facility] TIME (PTT) C-REACTIVE PROTEIN 2022-09-27 02:07:00 [facility] SEDIMENTATION RATE 2022-09-27 02:07:00 [facility] COMPREHENSIVE METABOLIC 2022-09-27 02:07:00 [facility] [place] [facility] PANEL MAGNESIUM LEVEL 2022-09-27 02:07:00 [facility] PHOSPHORUS LEVEL 2022-09-27 02:07:00 [facility] [place] [facility] HCG QUALITATIVE, SERUM 2022-09-27 02:07:00 [facility] SCREEN ESTIMATED GFR 2022-09-27 02:07:00 [facility] ECG 12-LEAD 2022-09-27 01:14:34 [facility] CT ANGIOGRAM 2022-09-15 14:32:00 [facility] ABDOMEN/PELVIS Medical Branch LIPASE 2022-09-15 13:30:00 [facility] 2022-09-15 13:30:00 Caitie Shipley [facility] ([id number]) (ALB,T.PRO,BILI Medical Branch T,BU/BC,ALT,AST,ALK PHOS) BASIC METABOLIC PANEL 2022-09-15 13:30:00 Caitie Shipley [facility] (NA, K, CL, CO2, GLUCOSE, Medica l Branch BUN, CREATININE, CA) CBC WITH DIFF 2022-09-15 13:30:00 Violetta [facility] URINALYSIS 2022-09-15 13:30:00 Violetta [facility] POCT TEST 2022-09-15 13:30:00 Caitie Shipley [facility] CONSENT/REFUSAL FOR 2022-09-15 12:57:18 Doctor Jesus [facility] DIAGNOSIS AND TREATMENT [place] [facility] BRAIN WITHOUT IV 2021-10-15 12:42:00 Elise Rice [facility] CONTRAST Center PHYSICIAN ORDERS 2021-08-13 05:01:00 Doctor Jesus [facility] [place] [facility] ASSIGNMENT OF BENEFITS 2021-07-16 14:15:53 [facility] [place] [facility] ASSIGNMENT OF BENEFITS 2021-06-18 14:59:31 Doctor Unassigned, [facility] [place] [facility] ULTRASOUND OF PELVIS 2020-08-24 00:00:00 [facility] US OVARY TORSION 2020-07-23 19:10:[address] [facility] PELVIS W 2020-07-23 17:15:00 Megan Lyons [facility] CONTRAST Medical Branch HEPATIC FUNCTION PANEL 2020-07-23 16:49:00 Vikas Megan [facility] ([id number]) (ALB,T.PRO,BILI Medical Branch T,BU/BC,ALT,AST,ALK PHOS) BASIC METABOLIC PANEL 2020-07-23 16:49:00 [facility] (NA, K, CL, CO2, GLUCOSE, Medica l Branch BUN, CREATININE, CA) CBC WITH DIFF 2020-07-23 16:49:00 Vikas [facility] URINALYSIS 2020-07-23 16:49:00 Vikas [facility] POCT TEST 2020-07-23 16:48:00 Megan Lyons [facility] NOTICE OF PRIVACY 2020-07-23 16:32:51 Doctor Lee [facility] PRACTICES [place] [facility] CONSENT/REFUSAL FOR 2020-07-23 16:32:01 Doctor Lee [facility] DIAGNOSIS AND TREATMENT [place] [facility] HEAD WO CONTRAST 2020-04-27 19:40:14 Ann Cardozo [facility] TROPONIN I 2020-04-27 18:41:00 Ann Cardozo [facility] BASIC METABOLIC PANEL 2020-04-27 18:41:00 Ann Cardozo [facility] (NA, K, CL, CO2, GLUCOSE, Medica l Branch BUN, CREATININE, CA) CBC WITH DIFF 2020-04-27 18:41:00 Ann Cardozo [facility] HB ECG ROUTINE & RHYTHM 2020-04-27 17:58:58 Ann Cardozo [facility] STRIP [facility] NOTICE OF PRIVACY 2020-04-27 17:21:19 Doctor Unassigned, [facility]ACT[facility] [facility] CONSENT/REFUSAL FOR 2020-04-27 17:21:03 Doctor Unassigned, [facility] DIAGNOSIS AND TREATMENT [place] [facility] TROPONIN I 2020-02-08 10:03:00 Josr [facility] BASIC METABOLIC PANEL 2020-02-08 10:03:00 Sharon Ovalles [facility] (NA, K, CL, CO2, GLUCOSE, Medica l Branch BUN, CREATININE, CA) CBC WITH DIFF 2020-02-08 10:03:00 Josr [facility] TROPONIN I 2020-02-08 04:27:00 Josr [facility] COVID-19 (ID NOW RAPID 2020-02-07 22:40:00 Angelo Robles [facility] TESTING) Medical Branch MAGNESIUM 2020-02-07 22:22:00 Josr [facility] TROPONIN I 2020-02-07 22:22:00 Travis Angelo [facility] THYROID STIMULATING 2020-02-07 22:22:00 Sharon Ovalles [facility] HORMONE [facility] LIPID PANEL ([id number])(TOTAL 2020-02-07 22:22:00 Sharon Ovalles [facility] CHOLESTEROL, [facility] Branch TRIGLYCERIDES, HDL) CT ABDOMEN PELVIS W 2020-02-07 21:28:58 Angelo Robles [facility] CONTRAST [facility] CT CHEST PULMONARY 2020-02-07 21:28:58 Angelo Robles [facility] ANGIOGRAM Medical Branch XR CHEST 1 VW 2020-02-07 20:36:36 Travis Angelo [facility] POCT TEST 2020-02-07 20:03:00 Angelo Robles [facility] URINALYSIS 2020-02-07 20:02:00 Angelo Robles [facility] LIPASE 2020-02-07 19:58:00 Travis Angelo [facility] TROPONIN I 2020-02-07 19:58:00 Angelo Robles [facility] HEPATIC FUNCTION PANEL 2020-02-07 19:58:00 Angelo Robles [facility] ([id number]) (ALB,T.PRO,BILI Medical Branch T,BU/BC,ALT,AST,ALK PHOS) BASIC METABOLIC PANEL 2020-02-07 19:58:00 Angelo Robles [facility] (NA, K, CL, CO2, GLUCOSE, Medica l Branch BUN, CREATININE, CA) CBC WITH DIFF 2020-02-07 19:58:00 Angelo Robles [facility] PROTHROMBIN TIME / INR 2020-02-07 19:58:00 Angelo Robles [facility] ACTIVATED PARTIAL 2020-02-07 19:58:00 [facility] N-TERMINAL PRO-BNP 2020-02-07 19:58:00 Angelo Robles [facility] HB ECG ROUTINE & RHYTHM 2020-02-07 19:51:07 Angelo Robles [facility] CONSENT/REFUSAL FOR 2020-02-07 19:42:57 Doctor Unassigned, [facility] DIAGNOSIS AND TREATMENT [place] [facility] CT ABDOMEN PELVIS W 2020-01-24 23:32:59 Mark Armijo [facility] CONTRAST [facility] POCT TEST 2020-01-24 23:22:00 Mark Armijo [facility] LIPASE 2020-01-24 22:41:00 Mark Armijo [facility] COMP. METABOLIC PANEL 2020-01-24 22:41:00 Mark Armijo [facility] ([id number]) Medical Julian CBC WITH DIFF 2020-01-24 22:41:00 Mark Armijo [facility] URINALYSIS 2020-01-24 22:41:00 Armijo, Mark S [facility] NOTICE OF PRIVACY 2020-01-24 22:03:28 Doctor [place], [facility] PRACTICES [place] [facility] CONSENT/REFUSAL FOR 2020-01-24 22:03:15 Doctor Jesus [facility] DIAGNOSIS AND TREATMENT [place] [facility] ABDOMEN PELVIS W 2019-06-02 18:46:40 Candido Ramirez [facility] CONTRAST [facility] POCT TEST 2019-06-02 17:48:00 Candido Ramirez [facility] LIPASE 2019-06-02 17:47:00 Candido Ramirez [facility] COMP. METABOLIC PANEL 2019-06-02 17:47:00 Candido Ramirez [facility] ([id number]) [facility] CBC WITH DIFFERENTIAL 2019-06-02 17:47:00 Candido Ramirez [facility] URINALYSIS 2019-06-02 17:47:00 Candiod Ramirez [facility] CONSENT/REFUSAL FOR 2019-06-02 17:08:56 Doctor Jesus [facility] DIAGNOSIS AND TREATMENT [place] [facility] Gi Tract Capsule 2017-11-10 00:00:00 [facility] Endoscopy Tubal Ligation [facility] Caesarean Section [facility] Medical Plan of Care Planned Activity Planned Date Details Comments Source Future Scheduled 2022-12-19 COVID-19 VACCINE (#1) [facility] 00:48:53 [code = COVID-19 VACCINE Hos pital (#1)] Future Scheduled 2022-12-19 Hepatitis C screening [facility] Test 00:48:53 (procedure) [code = Hospital 317508323] Future Scheduled 2022-12-19 Screening for malignant [facility] Test 00:48:53 neoplasm of cervix Hospital (procedure) [code = 867730073] Future Scheduled 2022-12-19 BREAST CANCER SCREENING [facility] Test 00:48:53 [code = BREAST CANCER Hospit al SCREENING] Future Scheduled 2022-12-19 INFLUENZA VACCINE (#1) M ethodist Test 00:48:53 [code = INFLUENZA VACCINE Ho spital (#1)] Future Scheduled 2022-12-12 Influenza Vaccine (#1) [facility] 00:[facility] [code = Influenza Vaccine [facility] (#1)] Future Scheduled 2022-12-12 INFLUENZA VACCINE (Season [facility] Test 00:00:00 Ended) [code = INFLUENZA Med ical Center VACCINE (Season Ended)] Future Scheduled 2022-12-12 Influenza Vaccine (Season [facility] Test 00:00:00 Ended) [code = Influenza Med ical Center Vaccine (Season Ended)] Future Scheduled 2022-12-12 Influenza Vaccine (Season [facility] Test 00:00:00 Ended) [code = Influenza Med ical Center Vaccine (Season Ended)] Future Scheduled 2022-10-[address] [facility] Test 00:00:00 Counseling and Screening Med ical Center (12+) [code = Tobacco Cessation Counseling and Screening (12+)] Future Scheduled 2022-10-[address] [facility] Test 00:00:00 Counseling and Screening Med ical Center (12+) [code = Tobacco Cessation Counseling and Screening (12+)] Future Scheduled 2022-10-[address] [facility] Test 00:00:00 Counseling and Screening Med ical Center (12+) [code = Tobacco Cessation Counseling and Screening (12+)] Future Scheduled 2022-10-[address] [facility] Test 00:00:00 Counseling and Screening Med ical Center (12+) [code = Tobacco Cessation Counseling and Screening (12+)] Future Scheduled 2022-10-[address] [facility] Test 00:00:00 Counseling and Screening Med ical Center (12+) [code = Tobacco Cessation Counseling and Screening (12+)] Future Scheduled 2022-10-[address] [facility] Test 00:00:00 Counseling and Screening Med ical Center (12+) [code = Tobacco Cessation Counseling and Screening (12+)] Future Scheduled 2022-10-[address] [facility] Test 00:00:00 Counseling and Screening Med ical Center (12+) [code = Tobacco Cessation Counseling and Screening (12+)] Future Scheduled 2022-04-[address] [facility] Test 00:00:00 (12+) [code = DEPRESSION Med ical Center SCREENING (12+)] Future Scheduled 2022-04-[address] [facility] Test 00:00:00 (12+) [code = DEPRESSION Med ical Center SCREENING (12+)] Future Scheduled 2022-04-[address] [facility] Test 00:00:00 (12+) [code = DEPRESSION Med ical Center SCREENING (12+)] Future Scheduled 2022-04-[address] [facility] Test 00:00:00 (12+) [code = DEPRESSION Med ical Center SCREENING (12+)] Future Scheduled 2022-04-[address] [facility] Test 00:00:00 (12+) [code = DEPRESSION Med ical Center SCREENING (12+)] Future Scheduled 2021-12-12 INFLUENZA VACCINE (#1) [facility] 00:00:00 [code = INFLUENZA VACCINE Me dical Center (#1)] Future Scheduled 2021-12-12 INFLUENZA VACCINE (#1) [facility] 00:00:00 [code = INFLUENZA VACCINE Me dical Center (#1)] Future Scheduled 2021-12-12 INFLUENZA VACCINE (#1) [facility] 00:00:00 [code = INFLUENZA VACCINE Me dical Center (#1)] Future Scheduled 2021-04-[address] [facility] Test 00:00:00 (12+) [code = DEPRESSION Med ical Center SCREENING (12+)] Future Scheduled 2021-04-[address] [facility] Test 00:00:00 (12+) [code = DEPRESSION Med ical Center SCREENING (12+)] Future Scheduled 2001 Screening for malignant [facility] Test 00:00:00 neoplasm of cervix Medical C enter (procedure) [code = 536298473] Future Scheduled 2001 Screening for malignant [facility] Test 00:00:00 neoplasm of cervix Medical C enter (procedure) [code = 190998896] Future Scheduled 2001 Screening for malignant [facility] Test 00:00:00 neoplasm of cervix Medical C enter (procedure) [code = 741905967] Future Scheduled 2001 Screening for malignant [facility] Test 00:00:00 neoplasm of cervix Medical C enter (procedure) [code = 404426590] Future Scheduled 2001 Screening for malignant [facility] Test 00:00:00 neoplasm of cervix Medical C enter (procedure) [code = 391541196] Future Scheduled 2001 Screening for malignant [facility] Test 00:00:00 neoplasm of cervix Medical C enter (procedure) [code = 789258590] Future Scheduled 2001 Screening for malignant [facility] Test 00:00:00 neoplasm of cervix Medical C enter (procedure) [code = 590304316] Future Scheduled 2000 Lipid panel (procedure) [facility] Test 00:00:00 [code = 94847266] Medical Ce nter Future Scheduled 2000 Lipid panel (procedure) [facility] Test 00:00:00 [code = 64180693] Medical Ce nter Future Scheduled 2000 Lipid panel (procedure) [facility] Test 00:00:00 [code = 95081531] Medical Ce nter Future Scheduled 2000 Lipid panel (procedure) [facility] Test 00:00:00 [code = 94243325] Medical Ce nter Future Scheduled 2000 Lipid panel (procedure) [facility] Test 00:00:00 [code = 46410356] Medical Ce nter Future Scheduled 2000 Lipid panel (procedure) [facility] Test 00:00:00 [code = 74017820] Medical Ce nter Future Scheduled 2000 Lipid panel (procedure) [facility] Test 00:00:00 [code = 61983719] Medical Ce nter Future Scheduled 1999-10-09 DTAP/TDAP/TD VACCINES ([address] [facility] Test 00:00:00 - Tdap) [code = Medical Cent er DTAP/TDAP/TD VACCINES (1 - Tdap)] Future Scheduled 1999-10-09 DTAP/TDAP/TD VACCINES ([address] [facility] Test 00:00:00 - Tdap) [code = Medical Cent er DTAP/TDAP/TD VACCINES (1 - Tdap)] Future Scheduled 1999-10-09 DTAP/TDAP/TD VACCINES ([address] [facility] Test 00:00:00 - Tdap) [code = Medical Cent er DTAP/TDAP/TD VACCINES (1 - Tdap)] Future Scheduled 1999-10-09 DTAP/TDAP/TD VACCINES ([address] [facility] Test 00:00:00 - Tdap) [code = Medical Cent er DTAP/TDAP/TD VACCINES (1 - Tdap)] Future Scheduled 1999-10-09 DTAP/TDAP/TD VACCINES ([address] [facility] Test 00:00:00 - Tdap) [code = Medical Cent er DTAP/TDAP/TD VACCINES (1 - Tdap)] Future Scheduled 1999-10-09 DTAP/TDAP/TD VACCINES ([address] [facility] Test 00:00:00 - Tdap) [code = Medical Cent er DTAP/TDAP/TD VACCINES (1 - Tdap)] Future Scheduled 1999-10-09 DTAP/TDAP/TD VACCINES ([address] [facility] Test 00:00:00 - Tdap) [code = Medical Cent er DTAP/TDAP/TD VACCINES (1 - Tdap)] Future Scheduled [...] HEPATITIS C Medical Center SCREENING] Future Scheduled 1995-10-[address] [facility] Test 00:00:00 virus screening Medical Cent er (procedure) [code = 012256653] Future Scheduled 1981-04-09 COVID-19 VACCINE (#1[facility] 00:00[facility]00 [code = COVID-19 VACCINE Med ical Center (#1)] Future Scheduled 1981-04-09 COVID-19 VACCINE (#1) [facility] 00:00:00 [code = COVID-19 VACCINE Med ical Center (#1)] Future Scheduled 1981-04-09 COVID-19 VACCINE (#1) [facility] 00:00:00 [code = COVID-19 VACCINE Med ical Center (#1)] Future Scheduled 1981-04-09 COVID-19 VACCINE (#1) [facility] 00:00:00 [code = COVID-19 VACCINE Med ical Center (#1)] Future Scheduled 1981-04-09 COVID-19 VACCINE (#1) [facility] 00:00:00 [code = COVID-19 VACCINE Med ical Center (#1)] Future Scheduled 1981-04-09 COVID-19 VACCINE (#1) [facility] 00:00:00 [code = COVID-19 VACCINE Med ical Center (#1)] Future Scheduled 1981-04-09 COVID-19 VACCINE (#1[facility] 00:00:00 [code = COVID-19 VACCINE Med ical Center (#1)] Encounters Start End Encounter Admission Attending Care Care Encounter Source Date/Time Date/Time Type Type Clinicians Facility Department ID 2022-10-06 Outpatient [facility] [id number] [place] 15:21:30 [id number] [facility] 2022-08-16 Outpatient [facility] [id number] [place] 15:19:06 [id number] [facility] 2022-07-03 Outpatient [facility] [id number] [place] 10:37:25 [id number] [facility] 2022-07-02 Outpatient [facility] [id number] [place] 15:48:54 [id number] [facility] 2022-04-02 Outpatient [facility] [id number] [place] 13:15:41 [id number] [facility] 2021-02-10 Emergency [facility] [id number] Univers 12:15:04 ity [facility] 2021-02-09 Emergency [facility] [id number] Univers 17:33:49 ity [facility] 2021-02-09 Emergency [facility] [id number] Univers 01:23:23 ity [facility] 2021-02-08 Emergency [facility] [id number] Univers [facility] 2022-10-03 Patient Coretta 1.2.840.1 [id number] Methodi 00:00:00 00:00:00 Outreach Joy 00967.1.[address] 3.430.2.7 Hospit a .3.695031 l .8 2022-10-03 2022-10-03 Patient Jung, 1.2.840.1 [id number] Methodi 00:00:00 00:00:00 Outreach Linnette [address]92.1.[address] 3.430.2.7 Hospit a .3.749371 l .8 2022-09-26 2022-09-30 Hospital Ollie Tobar 1.2.840.1 [id number] Methodi 20:14:00 13:32:00 Encounter Di Lundberg Foster 56929.1.[address] [facility] 3.430.2.7 Hospita .3.393556 l .8 2022-09-26 2022-09-30 Inpatient [facility] [id number] [place] 00:00:00 00:00:00 [facility] [address] 2022-09-15 2022-09-15 Emergency X [facility] ERT [id number] Univers 08:09:00 13:17:00 CAITIE feliciano [facility] 2022-09-15 2022-09-15 Emergency [facility] 1.2.835.[id number] [facility] [place] 08:09:00 13:17:00 Caitie HERNANDEZ 350.1.13.[address] [facility] 4.2.7.2.686 [facility] [id number] [place] [address] [place] 2022-08-25 2022-08-25 Outpatient ATKINS [facility] [id number] [place] 13:45:00 13:45:00 ANGEL Key [facility] 2022-07-03 2022-07-03 Office ELDA ATKINS 6400 1.2.840.114 [id number] [place] 10:45:00 10:45:00 Visit ANGEL MOSQUEDA 350.1.13.58 [facility] 9.2.7.2.686 [id number] 1 2022-05-21 2022-05-21 Outpatient WILBERT [facility] [id number] [place] 09:30:00 09:30:00 ANGEL Key [facility] 2021-10-15 2021-10-15 Emergency Jagjit, [facility] [id number] 14:24[facility] 17[facility]37[facility]00 [facility] 2021-10-15 2021-10-15 Emergency ER JAGJIT, [facility] Emergency [id number] SLS 14:24:00 17:37:00 WENDELL 2021-10-15 2021-10-15 Travel [facility] [id number] [facility] 00:[facility] 00:00:00 [facility] 2021-08-13 2021-08-13 Page Designer Luis, Adc Lab Main [facility] 1.2.[id number] [facility] [place] 12:15:00 12:30:00 Visit Ariel Britt Esdras DAVID 350.1.13.1 0 [place] [id number] Ut dical NAL [facility] 2021-08-13 2021-08-13 [facility] [id number] [facility] [place] 12:15:00 12:15:00 [facility] ity of [facility] 2021-08-13 2021-08-13 Orders Doctor LUÍS 1.2.840.114 [id number] Univers 00:00:00 00:00:00 Only Unassigned, SHARON 350.1.13.10 ity of [place] [facility] 4.2.7.2.686 Craig as [phone] [address] 2021-07-16 2021-07-16 Page Designer Luis, Adc Lab Main [facility] 1.2.8 40.114 [id number] Univers 09:30:00 09:45:00 Visit Paul Sams 350.1.13.10 [place] [id number] Ut dical NAL [facility] 2021-07-16 2021-07-16 Outpatient [facility] [id number] Univers 09:30:00 09:30:00 PAUL feliciano [facility] 2021-07-16 2021-07-16 Orders Doctor LUÍS 1.2.840.114 [id number] Univers 00:00:00 00:00:00 Only Unassigned, SHARON 350.1.13.10 ity of [place] [facility] 4.2.7.2.686 Craig as [phone] [address] 2021-06-18 2021-06-18 Outpatient [facility] [id number] Univers 08:45:00 10:27:48 PAUL feliciano [facility] 2021-06-18 2021-06-18 Page Designer Luis, Adc Lab Main [facility] 1.2.8 40.114 [id number] Univers 08:45:00 09:00:00 Visit Paul Sams 350.1.13.10 [place] [id number] Ut dical NAL [address] [place] [address] 2021-06-18 2021-06-18 Orders Doctor LUÍS 1.2.840.114 [id number] Univers 00:00:00 00:00:00 Only Unassigned, SHARON 350.1.13.10 ity of [place] [facility] 4.2.7.2.686 Craig as [phone] [address] 2020-08-24 2020-08-24 Outpatient KAREN_ PRIV PRIV [id number] [facility] 02:56:00 02:56:00 Ludwin [id number] Medic al 2020-08-24 2020-08-24 Outpatient TAYLOR Pierce PRIV [id number] 1-2 00:00:00 00:00:00 Alex [id number] Jay [id number] 2020-08-24 2020-08-24 Alex VAZQUEZ [place] - [facility] [id number] [facility] 00:00:00 00:00:00 Jay [facility] - Medic KAREN Colmenares_ : [address], [address], [place] [address] , Ph. 2020-07-23 2020-07-23 Emergency Lyons, [facility] 1.2.840.114 [id number] 11:40:00 15:16:00 Megan [place] 350.1.13.10 [place] 4.2.7.2.686 [place] [id number] [facility] 2020-07-23 2020-07-23 Emergency Lyons, [facility] 1.2.840.[id number] [facility] 11:40:00 15:16:00 Megan Birchwood 350.1.13.10 i ty of [place] 4.2.7.2.686 [facility] [id number] [address] 2020-04-27 2020-04-27 Emergency Levi, [facility] 1.2.840.114 [id number] 11:25:00 18:21:00 Ann Hernandez 350.1.13.10 [place] 4.2.7.2.686 [place] [id number] [facility] 2020-04-27 2020-04-27 Emergency Levi, [facility] 1.2.840.[id number] [facility] [place] 11:25:00 18:21:00 Ann Hernandez 350.1.13.10 ity of [place] 4.2.7.2.686 [facility] [id number] [place] [address] [place] 2020-02-07 2020-02-08 Emergency Angelo Robles [facility] 1.2.840. 114 [id number] 14:46:00 14:26:00 Naun Bush 350.1.13.10 [place] 4.2.7.2.686 [place] [id number] [facility] 2020-02-07 2020-02-08 Emergency Angelo Robles [facility] 1.2.840. [id number] [facility] [place] 14:46:00 14:26:00 Naun Bush 350.1.13.10 ity of [place] 4.2.7.2.686 [facility] [id number] [address] 2020-01-24 2020-01-24 Emergency [facility] 1.2.741.999 [id number] 17:12:00 21:15:00 Mark S [place] 350.1.13.10 [place] 4.2.7.2.686 [place] [id number] [facility] 2020-01-24 2020-01-24 Emergency [facility] 1.2.848.673 [id number] Univers 17:12:00 21:15:00 Mark S [place] 350.1.13.10 i ty of [place] 4.2.7.2.686 [facility] [phone] [address] 2020-01-24 2020-01-24 Orders Doctor STALEY 1.2.840.114 [id number] 00:00:00 00:00:00 Only Unassigned, SHARON 350.1.13.10 [place] [facility] 4.2.7.2.686 [id number] [facility] 2020-01-24 2020-01-24 Orders Doctor STALEY 1.2.840.[id number] [facility] [place] 00:00:00 00:00:00 Only Unassigned, SHARON 350.1.13.10 ity of [place] [facility]OSPITAL 4.2.7.2.686 Craig [id number] [address] 2019-06-02 2019-06-02 Emergency [facility] 1.2.840.114 [id number] 11:18:34 14:43:00 Candido B [place] 350.1.13.10 [place] 4.2.7.2.686 [place] [id number] [facility] 2019-06-02 2019-06-02 Emergency [facility] 1.2.840.114 [id number] Univers 11:18:34 14:43:00 Candido B [place] 350.1.13.10 i ty of [place] 4.2.7.2.686 [facility] [phone] [address] 2019-06-02 2019-06-02 Emergency X JAMES, [facility] ERT [id number] Univers 11:18:34 14:43:00 CANDIDO ity of [facility] Results Test Description Test Time Test Comments Results Result Comments Source ECG 12 lead 2022-09-28 23:03:06 Test Item Value Reference Range Interpretation Comme nts Ventricular rate (test code = 253) 78 Atrial rate (test code = 255) 78 WA interval (test code = 266) 118 QRSD interval (test code = 260) 76 QT interval (test code = 264) 382 QTC interval (test code = 265) 435 P axis 1 (test code = 267) 70 QRS axis 1 (test code = 268) 71 T wave axis (test code = 270) 65 EKG impression (test code = 273) Normal sinus rhythm-Normal ECG-No previous ECGs available- [facility] METABOLIC PANEL (NA, K, CL, CO2, GLUCOSE, BUN, CREATININE, CA)2022-09-15 14:12:52 Test Item Value Reference Range Interpretation Comments NA (test code = 140 mmol/L 135-145 2671609519) K (test code = 4.2 mmol/L 3.5-5.0 8353649575) CL (test code = 104 mmol/L 98-108 0464514283) CO2 TOTAL (test code = 21 mmol/L 23-31 L 2623191411) AGAP (test code = 15 2-16 4183033172) BUN (test code = 11 mg/dL 7-23 0561359042) GLUCOSE (test code = 125 mg/dL 70-110 H 0183134944) CREATININE (test code = 0.81 mg/dL 0.50-1.04 8837833133) CALCIUM (test code = 10.4 mg/dL 8.6-10.6 2147130913) eGFR (test code = 77.9 mL/min/1.73m2 3655637427) JOSH (test code = JOSH) Association of [...] tests). Lab Interpretation Abnormal (test code = 57373-5) [facility] (ALB,T.PRO,BILI T,BU/BC,ALT,AST,ALK PHOS)2022-09-15 14:12:52 Test Item Value Reference Range Interpretation Comments TOTAL BILI (test code = 0404404800) 0.5 mg/dL 0.1-1.1 BILI UNCON (test code = 1745395830) 0.3 mg/dL 0.1-1.1 BILI CONJ (test code = 2991551697) 0.0 mg/dL 0.0-0.3 T PROTEIN (test code = 1952297113) 7.7 g/dL 6.3-8.2 ALBUMIN (test code = 1310296999) 4.9 g/dL 3.5-5.0 ALK PHOS (test code = 1973055180) 100 U/L 34-122 ALTv (test code = 1742-6) 29 U/L 5-35 AST(SGOT) (test code = 6514766319) 28 U/L 13-40 Lab Interpretation (test code = Normal 10250-6) [facility] 14:12:52 Test Item Value Reference Range Interpretation Comments LIPASE (test code = 5573562632) 137 U/L 0-220 Lab Interpretation (test code = Normal 16620-7) [facility] WITH [id number] 13:49:51 Test Item Value Reference Range Interpretation [...] RDW-SD (test code = 43.9 fL 39.0-49.9 34388-2) RDW-CV (test code = 13.9 % 12.0-15.5 788-0) PLT (test code = 308 See_Comment [Automated 777-3) message] The sy stem which generated this result transmitted reference range : 166 - 358 10*3/ ?L. The reference r susan was not used to interpret this result as normal/abnormal . MPV (test code = 11.2 fL 9.5-12.9 43952-2) NRBC/100 WBC (test 0.0 See_Comment [Automat ed code = 5450819173) message] The system which generated this result transmitted reference range : 0.0 - 10.0 /100 WBCs. The refer ence range was not u sed to interpret th is result as normal/abnormal . NRBC x10^3 (test code See_Comment [Auto mated = 2031098446) message] The s ystem which generated this result transmitted reference range : 10*3/?L. The reference range was not used to interpret this result as normal/abnormal . GRAN MAT (NEUT) % 71.0 % (test code = 770-8) IMM GRAN % (test code 0.40 % = 0476558844) LYMPH % (test code = 21.0 % 736-9) MONO % (test code = 5.8 % 5905-5) EOS % (test code = 1.3 % 713-8) BASO % (test code = 0.5 % 706-2) GRAN MAT x10^3(ANC) 7.54 10*3/uL 1.88-7.09 H (test code = 1211612063) IMM GRAN x10^3 (test 0.04 10*3/uL 0.00-0.06 code = 2087117992) LYMPH x10^3 (test code 2.23 10*3/uL 1.32-3.29 = 731-0) MONO x10^3 (test code 0.62 10*3/uL 0.33-0.92 = 742-7) EOS x10^3 (test code = 0.14 10*3/uL 0.03-0.39 711-2) BASO x10^3 (test code 0.05 10*3/uL 0.01-0.07 = 704-7) Lab Interpretation Abnormal (test code = 92402-6) [facility] [id number] 13:30:00 Test Item Value Reference Range Interpretation Comments POCT PREG (test code = 1605) Negative On board controls acceptable with C Yes Line (test code = 3574) POCT PREG LOT # (test code = 3575) [id number] POCT PREG TEST DATE (test 99919208 code = 3576) Lab Interpretation (test code = Normal 28947-8) [facility], BRAIN, WITHOUT [id number] 12:56:00 Unlisted Reason for Exam - Click Yes and Enter Reason Below->No [facility] : 1980 Sex: FFINAL REPORT [...] MDReport Verified Date/Time: 10/15/2021 12:56:49 US OVARY [id number] 19:26:25 Low suspicion for ovarian torsion. Small [...] uterine fibroid versus foci of endometrial andsubendometrial microcalcifications.[facility] PELVIS W [id number] 17:59:04 Normal appendix. No radiographic findings to [...] PELVISLiver: Hepatic dome is not fully within wtjaf-ub-bqwp. Mild focal fatty infiltration at the falciform [...] PELVISLiver: Hepatic dome is not fully within kubis-hr-ccpw. Mild focal fattyinfiltration at the falciform ligament. [...] to explain patient's pain in the right lowerquadrant.[facility] Met[facility] Panel (NA, K, CL, CO2, GLUCOSE, BUN, CREATININE, CA)2020-07-23 17:09:38 Test Item Value Reference Range Interpretation Comments NA (test code = 139 mmol/L 135-145 0592713521) K (test code = 3.9 mmol/L 3.5-5.0 3627607995) CL (test code = 102 mmol/L 98-108 9163562185) CO2 TOTAL (test code 29 mmol/L 23-31 = 4519811698) AGAP (test code = 2-16 9896208734) BUN (test code = 13 mg/dL 7-23 9125481150) GLUCOSE (test code = 98 mg/dL 70-110 9851865741) CREATININE (test code 0.76 mg/dL 0.50-1.04 = 6813060748) CALCIUM (test code = 9.5 mg/dL 8.6-10.6 1440902123) eGFR (test code = mL/min/1.73m2 6926442809) JOSH (test code = JOSH) Association of [...] or urine or abnormalities in imaging tests). [facility]B, T.PRO, BILI T, BU/BC, ALT, AST, ALK PHOS)2020-07-23 17:09:38 Test Item Value Reference Range Interpretation Comments TOTAL BILI (test code = 7521409495) 0.4 mg/dL 0.1-1.1 BILI UNCON (test code = 6771598776) 0.2 mg/dL 0.1-1.1 BILI CONJ (test code = 9677852090) 0.0 mg/dL 0.0-0.3 T PROTEIN (test code = 8941344299) 6.9 g/dL 6.3-8.2 ALBUMIN (test code = 7399917843) 4.3 g/dL 3.5-5.0 ALK PHOS (test code = 9869740908) 113 U/L 34-122 ALTv (test code = 1742-6) 13 U/L 5-35 AST(SGOT) (test code = 4174393520) 29 U/L 13-40 Lab Interpretation (test code = Normal 28535-0) [facility] 17:03:52 Test Item Value Reference Range Interpretation Comments APPEARANCE (test code = Clear Clear 7824850443) COLOR (test code = Straw Yellow A 1704335080) PH (test code = 4.8-8.0 6213141675) SP GRAVITY (test code = 1.003-1.030 5774605009) GLU U QUAL (test code = Normal Normal 4392192191) BLOOD (test code = Negative Negative 6602628915) KETONES (test code = Negative Negative 8207371620) PROTEIN (test code = Negative Negative 2887-8) UROBILIN (test code = Normal Normal 6619681420) BILIRUBIN (test code = Negative Negative 2288885617) NITRITE (test code = Negative Negative 8345851018) LEUK ROXANE (test code = 25/uL Negative A 6506154362) RBC/HPF (test code = See_Comment [Autom ated message] 0897917008) The system [employer] generated this result transmitted ref erence range: 0 - 3 HP F. The reference range was not used to int erpret this result as normal/abnormal . WBC/HPF (test code = See_Comment [Autom ated message] 4370015268) The system [employer] generated this result transmitted ref erence range: 0 - 5 HP F. The reference range was not used to int erpret this result as normal/abnormal . BACTERIA (test code = Few Negative A 5735334843) SQ EPITH (test code = HPF 1542663658) Lab Interpretation (test Abnormal code = 32698-1) [facility] with Nqymbrqsfrdp0493-93-52 16:55:13 Test Item Value Reference Range Interpretation Comments WBC (test code = See_Comment H [Automated 3490-2) message] The sy stem which generated this result transmitted reference range : 4.30 - 11.10 10*3/?L. The reference range was not used to interpret this result as normal/abnormal . RBC (test code = See_Comment [Automated 449-8) message] The sy stem which generated this [...] RDW-SD (test code = 42.4 fL 39.0-49.9 45330-3) RDW-CV (test code = 12.9 % 12.0-15.5 788-0) PLT (test code = See_Comment [Automated 777-3) message] The sy stem which generated this result transmitted reference range : 166 - 358 10*3/ ?L. The reference r susan was not used to interpret this result as normal/abnormal . MPV (test code = 11.5 fL 9.5-12.9 43313-3) NRBC/100 WBC (test See_Comment [Automat ed code = 7155865007) message] The system which generated this result transmitted reference range : 0.0 - 10.0 /100 WBCs. The refer ence range was not u sed to interpret th is result as normal/abnormal . NRBC x10^3 (test code <0.01 See_Comment [Auto mated = 5062918381) message] The s ystem which generated this result transmitted reference range : 10*3/?L. The reference range was not used to interpret this result as normal/abnormal . GRAN MAT (NEUT) % 65.4 % (test code = 770-8) IMM GRAN % (test code 0.40 % = 2848236206) LYMPH % (test code = 24.9 % 736-9) MONO % (test code = 7.7 % 5905-5) EOS % (test code = 1.1 % 713-8) BASO % (test code = 0.5 % 706-2) GRAN MAT x10^3(ANC) 7.44 10*3/uL 1.88-7.09 H (test code = 7900477990) IMM GRAN x10^3 (test 0.05 10*3/uL 0.00-0.06 code = 8808554501) LYMPH x10^3 (test code 2.83 10*3/uL 1.32-3.29 = 731-0) MONO x10^3 (test code 0.88 10*3/uL 0.33-0.92 = 742-7) EOS x10^3 (test code = 0.12 10*3/uL 0.03-0.39 711-2) BASO x10^3 (test code 0.06 10*3/uL 0.01-0.07 = 704-7) Lab Interpretation Abnormal (test code = 86848-9) [facility]PO[facility] [id number] 16:48:00 Test Item Value Reference Range Interpretation Comments POCT PREG (test code = 1605) negative On board controls acceptable with C present Line (test code = 3574) Lab Interpretation (test code = Normal 39043-2) [facility] Head W/O [id number] 19:42:08 No acute intracranial abnormality. CT HEAD [...] paranasal sinuses and mastoidair cells are clear. [facility], Radiant ResultsInft User - 04/27/2020 1:43 PM [...] and mastoidair cells are clear.IMPRESSIONNo acute intracranial abnormality.[facility] HospitalTroponin I 2020-04-27 19:09:00 Test Item Value Reference Range Interpretation Comments TROPONIN I (test <0.012 See_Comment [Automated code = 1929470092) message] The system which generated this result [...] ? Lab Interpretation Normal (test code = 28408-1) [facility] HospitalBasi Metabolic Panel (NA, K, CL, CO2, GLUCOSE, BUN, CREATININE, CA)2020-04-27 18:58:00 Test Item Value Reference Range Interpretation Comments NA (test code = 139 mmol/L 135-145 8592704250) K (test code = 4.1 mmol/L 3.5-5 0547983077) CL (test code = 98 mmol/L 98-108 3896403350) CO2 TOTAL (test code = 32 mmol/L 23-31 H 1529729545) AGAP (test code = 2-16 9555114070) BUN (test code = 11 mg/dL 7-23 0750016563) GLUCOSE (test code = 86 mg/dL 70-110 2743152122) CREATININE (test code = 0.78 mg/dL 0.5-1.04 5630359120) CALCIUM (test code = 10.2 mg/dL 8.6-10.6 7741943846) eGFR Calculation mL/min/1.73m2 (Non-) (test code = 4287843950) eGFR Calculation mL/min/1.73m2 () (test code = 2902088713) JOSH (test code = JOSH) Association of [...] tests). Lab Interpretation Abnormal (test code = 01596-6) [facility] with Cjwzgbeyqufr4930-54-86 18:54:00 Test Item Value Reference Range Interpretation Comments WBC (test code = See_Comment [Automated 6290-2) message] The sy stem which generated this [...] RDW-SD (test code = 42.5 fL 39-49.9 21225-0) RDW-CV (test code = 12.8 % 12-15.5 788-0) PLT (test code = See_Comment [Automated 777-3) message] The sy stem which generated this result transmitted reference range : 166 - 358 10*3/ ?L. The reference r susan was not used to interpret this result as normal/abnormal . MPV (test code = 11.9 fL 9.5-12.9 92066-1) NRBC/100 WBC (test See_Comment [Automat ed code = 7943535535) message] The system which generated this result transmitted reference range : 0.0 - 10.0 /100 WBCs. The refer ence range was not u sed to interpret th is result as normal/abnormal . NRBC x10^3 (test code <0.01 See_Comment [Auto mated = 9048980937) message] The s ystem which generated this result transmitted reference range : 10*3/?L. The reference range was not used to interpret this result as normal/abnormal . GRAN MAT (NEUT) % 62.6 % (test code = 770-8) IMM GRAN % (test code 0.20 % = 0759822070) LYMPH % (test code = 26.7 % 736-9) MONO % (test code = 9.0 % 5905-5) EOS % (test code = 1.1 % 713-8) BASO % (test code = 0.4 % 706-2) GRAN MAT x10^3(ANC) 5.07 10*3/uL 1.88-7.09 (test code = 9131001892) IMM GRAN x10^3 (test <0.03 0-0.06 code = 1988126284) LYMPH x10^3 (test code 2.16 10*3/uL 1.32-3.29 = 731-0) MONO x10^3 (test code 0.73 10*3/uL 0.33-0.92 = 742-7) EOS x10^3 (test code = 0.09 10*3/uL 0.03-0.39 711-2) BASO x10^3 (test code 0.03 10*3/uL 0.01-0.07 = 704-7) Lab Interpretation Abnormal (test code = 08544-8) [facility] HospitalRodo [id number] 11:05:00 Test Item Value Reference Range Interpretation Comments TROPONIN I (test <0.012 See_Comment [Automated code = 9118374541) message] The system which generated this result [...] ? Lab Interpretation Normal (test code = 69901-6) [facility] (NA, K, CL, CO2, GLUCOSE, BUN, CREATININE, CA)2020-02-08 10:55:00 Test Item Value Reference Range Interpretation Comments NA (test code = 138 mmol/L 135-145 2983641443) K (test code = 4.1 mmol/L 3.5-5 4802515487) CL (test code = 104 mmol/L 98-108 2059138751) CO2 TOTAL (test code = 26 mmol/L 23-31 4161894986) AGAP (test code = 2-16 7228163647) BUN (test code = 14 mg/dL 7-23 8616468001) GLUCOSE (test code = 94 mg/dL 70-110 9536951568) CREATININE (test code 0.91 mg/dL 0.5-1.04 = 1538940256) CALCIUM (test code = 9.0 mg/dL 8.6-10.6 5500688605) eGFR Calculation mL/min/1.73m2 (Non-) (test code = 0533039321) eGFR Calculation mL/min/1.73m2 () (test code = 6862193832) JOSH (test code = JOSH) Association of [...] or urine or abnormalities in imaging tests). [facility] with Muguxovogail3107-78-27 10:26:00 Test Item Value Reference Range Interpretation Comments WBC (test code = See_Comment [Automated message] 6690-2) The system [employer] generated this result transmitted ref erence range: 4.30 - 1 1.10 10*3/?L. The re ference range was not u sed to interpret this result as normal/abnor mal. RBC (test code = See_Comment [Automated message] 389-8) The system [employer] generated this result transmitted ref erence range: [...] RDW-SD (test code 45.3 fL 39-49.9 = 96693-7) RDW-CV (test code 13.4 % 12-15.5 = 788-0) PLT (test code = See_Comment [Automated message] 777-3) The system [employer] generated this result transmitted ref erence range: 166 - 35 8 10*3/?L. The re ference range was not u sed to interpret this result as normal/abnor mal. MPV (test code = 11.9 fL 9.5-12.9 87143-6) NRBC/100 WBC (test See_Comment [Automat ed message] code = 7235107910) The syste m which generated this result transmitted ref erence range: 0.0 - 10 .0 /100 WBCs. The refer ence range was not u sed to interpret this result as normal/abnor mal. NRBC x10^3 (test <0.01 See_Comment [Automated message] code = 4960453372) The syste m which generated this result transmitted ref erence range: 10*3/?L. The reference range was not used to interpr et this result as normal/abnormal . GRAN MAT (NEUT) % 63.9 % (test code = 770-8) IMM GRAN % (test 0.40 % code = 5905414038) LYMPH % (test code 26.9 % = 736-9) MONO % (test code 6.7 % = 5905-5) EOS % (test code = 1.6 % 713-8) BASO % (test code 0.5 % = 706-2) GRAN MAT 4.94 10*3/uL 1.88-7.09 x10^3(ANC) (test code = 3065546343) IMM GRAN x10^3 0.03 10*3/uL 0-0.06 (test code = 8319870789) LYMPH x10^3 (test 2.08 10*3/uL 1.32-3.29 code = 731-0) MONO x10^3 (test 0.52 10*3/uL 0.33-0.92 code = 742-7) EOS x10^3 (test 0.12 10*3/uL 0.03-0.39 code = 711-2) BASO x10^3 (test 0.04 10*3/uL 0.01-0.07 code = 704-7) [facility] [id number] 05:34:00 Test Item Value Reference Range Interpretation Comments TROPONIN I (test <0.012 See_Comment [Automated code = 9042076520) message] The system which generated this result [...] ? Lab Interpretation Normal (test code = 96840-6) [facility] HospitalThyroid Stimulating Hormone (TSH)2020-02-08 02:02:00 Test Item Value Reference Range Interpretation Comments TSH (test code = See_Comment [Automated message] 5231340882) The system [employer] generated this result transmitted ref erence range: 0.45 - 4 .70 mIU/L. The refe rence range was not u sed to interpret this result as normal/abnor mal. Lab Interpretation (test Normal code = 94247-1) [facility] HospitalMagnesium [id number] 01:31:00 Test Item Value Reference Range Interpretation Comments MAGNESIUM (test code = 4730361358) 2.1 mg/dL 1.7-2.4 Lab Interpretation (test code = Normal 42043-8) [facility] HospitalLipid Panel (Total Cholesterol, Triglycerides, HDL)2020-02-08 01:31:00 Test Item Value Reference Range Interpretation Comments CHOL (test code = 220 mg/dL 120-200 H 7824745402) HDL (test code = 44 mg/dL >50 L 6683671871) HDLC RATIO (test code = See_Comment H [Au tomated message] 7803046209) The system [employer] generated this result transmit alistair reference range : <=4.5. The refe rence range was not u sed to interpret th is result as normal/abnormal . TRIG (test code = 179 mg/dL 30-170 H 9781498132) LDL CHOL (test code = 140 mg/dL See_Comment [Auto mated message] 47700-0) The system [employer] generated this result transmit alistair reference range : <=160. The refe rence range was not u sed to interpret th is result as normal/abnormal . VLDL (test code = 36 mg/dL 5-60 0084580121) Lab Interpretation (test Abnormal code = 89956-4) [facility] HospitalCOVID-19 (ID NOW RAPID TESTING)2020-02-07 23:26:00 Test Item Value Reference Range Interpretation Comments SARS-CoV-2 Rapid ID NOW Not Detected Not Detected (test code = 23951-6) JOSH (test code = JOSH) ID NOW COVID-19 Assay is an isothermal nucleic acid amplification test intended for the qualitative detection of nucleic acid from SARS-CoV-2 viral RNA in nasopharyngeal (ANALYTICAL RESEARCH CHEMIST) specimens. It is used under Emergency Use [...] indicated. Lab Interpretation Normal (test code = 38223-7) [facility] HospitalTROPONIN [id number] 22:52:00 Test Item Value Reference Range Interpretation Comments TROPONIN I (test <0.012 See_Comment [Automated code = 4608829223) message] The system which generated this result [...] ? Lab Interpretation Normal (test code = 66430-9) [facility] HospitalCT [facility]BDOMEN PELVIS W [id number] 21:53:30CT Abdomen and Pelvis with intravenous contrast. [...] Unremarkable.CONCLUSION: No acute intra-abdominal or pelvic abnormalities detected.[facility] CHEST PULMONARY [id number] 21:48:38 No acute or chronic pulmonary embolus [...] reviewed this study and agree with theabove report.[facility] EsnwyqXaighnvlcs3372-78-43 20:52:00 Test Item Value Reference Range Interpretation Comments APPEARANCE (test code = Clear Clear 9399712118) COLOR (test code = Straw Yellow A 9554127578) PH (test code = 4.8-8.0 3509510186) SP GRAVITY (test code = 1.003-1.030 4530869290) GLU U QUAL (test code = Normal Normal 8573517523) BLOOD (test code = Negative Negative 9157232822) KETONES (test code = Negative Negative 4336579364) PROTEIN (test code = Negative Negative 2887-8) UROBILIN (test code = Normal Normal 7023795764) BILIRUBIN (test code = Negative Negative 9663623843) NITRITE (test code = Negative Negative 5789994274) LEUK ROXANE (test code = Negative Negative 8582602072) RBC/HPF (test code = See_Comment [Autom ated message] 3695511135) The system [employer] generated this result transmitted ref erence range: 0 - 3 HP F. The reference range was not used to int erpret this result as normal/abnormal . WBC/HPF (test code = See_Comment [Autom ated message] 2354916349) The system [employer] generated this result transmitted ref erence range: 0 - 5 HP F. The reference range was not used to int erpret this result as normal/abnormal . BACTERIA (test code = Few Negative A 9180180458) MUCOUS (test code = Slight Negative LPF A 9384765582) SQ EPITH (test code = HPF 2377874572) Lab Interpretation (test Abnormal code = 01894-5) [facility] 1 [id number] 20:38:53HISTORY: Chest pain. TECHNIQUE: Portable AP erect [...] CONCLUSIONS: No signs of acute cardiopulmonary disease. [facility] [id number] 20:36:00 Test Item Value Reference Range Interpretation Comments TROPONIN I (test <0.012 See_Comment [Automated code = 9315780684) message] The system which generated this result [...] ? Lab Interpretation Normal (test code = 10973-0) [facility] HospitalN-TERMINAL [id number] 20:33:00 Test Item Value Reference Range Interpretation Comments NT-proBNP (test code 53 pg/mL See_Comment [Autom ated = 9492116082) message] The system which generated this result transmitted reference range : <=125. The reference range was not used to interpret this result as normal/abnormal . JOSH (test code = JOSH) Biotin has been reported to cause a negative bias, interpret results relative to patient's use of biotin. Lab Interpretation Normal (test code = 39362-2) [facility] HospitalaPTT2020-10-27 20:29:00 Test Item Value Reference Range Interpretation Comments APTT Patient (test See_Comment [Automat ed code = 3173-2) message] The system which generated this result transmitted reference range : 23 - 38 Seconds . The reference range was not used to interpr et this result as normal/abnormal . JOSH (test code = JOSH) The [facility] patient population mean normal value for aPTT is 30 seconds. Lab Interpretation Normal (test code = 89240-8) [facility] HospitalProthrombin Time (PT) / [id number] 20:27:00 Test Item Value Reference Range Interpretation Comments PROTIME PATIENT (test See_Comment [Auto mated message] code = 5964-2) The system [employer] generated this result transmitted ref erence range: 12.0 - 1 4.7 Seconds. The re ference range was not u sed to interpret this result as normal/abnor mal. INR (test code = 6301-6) Nor mal INR <1.1; Warfarin Therap eutic range 2.0 to 3. 0 or 2.5 to 3.5, dep ending upon the indica tions. Lab Interpretation (test Normal code = 25979-9) [facility] Metabolic Panel (NA, K, CL, CO2, GLUCOSE, BUN, CREATININE, CA)2020-02-07 20:24:00 Test Item Value Reference Range Interpretation Comments NA (test code = 138 mmol/L 135-145 9615228852) K (test code = 3.9 mmol/L 3.5-5 7291472079) CL (test code = 98 mmol/L 98-108 6085991216) CO2 TOTAL (test code = 32 mmol/L 23-31 H 4623971728) AGAP (test code = 2-16 0630499714) BUN (test code = 13 mg/dL 7-23 1673341765) GLUCOSE (test code = 103 mg/dL 70-110 0779544935) CREATININE (test code = 1.33 mg/dL 0.5-1.04 H 9150420413) CALCIUM (test code = 10.0 mg/dL 8.6-10.6 3571314126) eGFR Calculation mL/min/1.73m2 (Non-) (test code = 0533374437) eGFR Calculation mL/min/1.73m2 () (test code = 7530807947) JOSH (test code = JOSH) Association of [...] tests). Lab Interpretation Abnormal (test code = 64067-8) [facility] HospitalHepatic Function Panel (ALB, T.PRO, BILI T, BU/BC, ALT, AST, ALK PHOS)2020-02-07 20:24:00 Test Item Value Reference Range Interpretation Comments TOTAL BILI (test code = 5943172848) 0.4 mg/dL 0.1-1.1 BILI UNCON (test code = 1840624560) 0.3 mg/dL 0.1-1.1 BILI CONJ (test code = 5715965513) 0.0 mg/dL 0-0.3 T PROTEIN (test code = 1542088629) 7.4 g/dL 6.3-8.2 ALBUMIN (test code = 5174798390) 4.4 g/dL 3.5-5 ALK PHOS (test code = 5737221985) 99 U/L 34-122 ALTv (test code = 1742-6) 16 U/L 5-35 AST(SGOT) (test code = 2389828221) 19 U/L 13-40 Lab Interpretation (test code = Normal 92072-8) [facility] HospitalLipase [id number] 20:24:00 Test Item Value Reference Range Interpretation Comments LIPASE (test code = 6374553307) 393 U/L 0-220 H Lab Interpretation (test code = Abnormal 55420-1) [facility] with Lnoxpwtwhwrq3309-67-18 20:19:00 Test Item Value Reference Range Interpretation Comments WBC (test code = See_Comment [Automated message] 6690-2) The system [employer] generated this result transmitted ref erence range: 4.30 - 1 1.10 10*3/?L. The re ference range was not u sed to interpret this result as normal/abnor mal. RBC (test code = See_Comment [Automated message] 789-8) The system [employer] generated this result transmitted ref erence range: [...] RDW-SD (test code 43.5 fL 39-49.9 = 11003-6) RDW-CV (test code 13.2 % 12-15.5 = 788-0) PLT (test code = See_Comment [Automated message] 777-3) The system [employer] generated this result transmitted ref erence range: 166 - 35 8 10*3/?L. The re ference range was not u sed to interpret this result as normal/abnor mal. MPV (test code = 12.1 fL 9.5-12.9 58110-8) NRBC/100 WBC (test See_Comment [Automat ed message] code = 2984898494) The syste [employer] which generated this result transmitted ref erence range: 0.0 - 10 .0 /100 WBCs. The refer ence range was not u sed to interpret this result as normal/abnor mal. NRBC x10^3 (test <0.01 See_Comment [Automated message] code = 1599740890) The syste m which generated this result transmitted ref erence range: 10*3/?L. The reference range was not used to interpr et this result as normal/abnormal . GRAN MAT (NEUT) % 62.9 % (test code = 770-8) IMM GRAN % (test 0.50 % code = 3603177505) LYMPH % (test code 26.9 % = 736-9) MONO % (test code 7.8 % = 5905-5) EOS % (test code = 1.2 % 713-8) BASO % (test code 0.7 % = 706-2) GRAN MAT 6.08 10*3/uL 1.88-7.09 x10^3(ANC) (test code = 6915734191) IMM GRAN x10^3 0.05 10*3/uL 0-0.06 (test code = 3853836298) LYMPH x10^3 (test 2.61 10*3/uL 1.32-3.29 code = 731-0) MONO x10^3 (test 0.76 10*3/uL 0.33-0.92 code = 742-7) EOS x10^3 (test 0.12 10*3/uL 0.03-0.39 code = 711-2) BASO x10^3 (test 0.07 10*3/uL 0.01-0.07 code = 704-7) [facility] HospitalPOCT Jyfv1645-87-15 20:03:00 Test Item Value Reference Range Interpretation Comments POCT PREG (test code = 1605) Negative On board controls acceptable with Present C Line (test code = 3574) POCT PREG LOT # (test code = 3575) [id number] POCT PREG TEST DATE (test 07/11/2021 code = 3576) Lab Interpretation (test code = Normal 19710-5) [facility] ABDOMEN PELVIS W RHFZSBLZ7335-35-74 00:58:03Impression: 1. Bilateral pyelonephritis.2. Mild right renal [...] cortical scarring.3. Mild hepatomegaly.RL: 460End of Report [facility] 2020-01-24 23:22:00 Test Item Value Reference Range Interpretation Comments POCT PREG (test code = 1605) negative On board controls acceptable with present C Line (test code = 3574) POCT PREG LOT # (test code = 3575) [id number] POCT PREG TEST DATE (test 2020-11-10 code = 3576) Lab Interpretation (test code = Normal 48723-5) [facility] HospitalURINALYSIS2020-10-13 23:21:00 Test Item Value Reference Range Interpretation Comments APPEARANCE (test code = Hazy Clear A 5263313661) COLOR (test code = Yellow Yellow 7926049920) PH (test code = 4.8-8.0 2834582756) SP GRAVITY (test code = 1.003-1.030 5792626227) GLU U QUAL (test code = Normal Normal 1123653666) BLOOD (test code = Negative Negative 3330281565) KETONES (test code = Negative Negative 9517844960) PROTEIN (test code = Negative Negative 2887-8) UROBILIN (test code = Normal Normal 6329778465) BILIRUBIN (test code = Negative Negative 9930776252) NITRITE (test code = Negative Negative 3563105445) LEUK ROXANE (test code = 250/uL Negative A 7641190784) RBC/HPF (test code = See_Comment [Autom ated message] 1675439952) The system [employer] generated this result transmitted ref erence range: 0 - 3 HP F. The reference range was not used to int erpret this result as normal/abnormal . WBC/HPF (test code = See_Comment H [Autom ated message] 4458346925) The system [employer] generated this result transmitted ref erence range: 0 - 5 HP F. The reference range was not used to int erpret this result as normal/abnormal . BACTERIA (test code = Moderate Negative A 1458503250) MUCOUS (test code = Slight Negative LPF A 9435665375) SQ EPITH (test code = HPF 3527361981) Lab Interpretation (test Abnormal code = 53329-1) [facility] HospitalCOM. METABOLIC PANEL (85935)2020-01-24 23:01:00 Test Item Value Reference Range Interpretation Comments NA (test code = 139 mmol/L 135-145 4962056778) K (test code = 4.0 mmol/L 3.5-5 4056727691) CL (test code = 98 mmol/L 98-108 6854443712) CO2 TOTAL (test code = 30 mmol/L 23-31 8305457106) AGAP (test code = 2-16 3262629029) BUN (test code = 13 mg/dL 7-23 2237850477) GLUCOSE (test code = 105 mg/dL 70-110 9841539326) CREATININE (test code 1.00 mg/dL 0.5-1.04 = 9275971955) TOTAL BILI (test code 0.5 mg/dL 0.1-1.1 = 4165743011) CALCIUM (test code = 10.4 mg/dL 8.6-10.6 2127059970) T PROTEIN (test code = 7.7 g/dL 6.3-8.2 0132097824) ALBUMIN (test code = 4.5 g/dL 3.5-5 2161479605) ALK PHOS (test code = 118 U/L 34-122 8218032210) ALTv (test code = 30 U/L 5-35 1742-6) AST(SGOT) (test code = 22 U/L 13-40 5784138620) eGFR Calculation mL/min/1.73m2 (Non-) (test code = 9276868222) eGFR Calculation mL/min/1.73m2 () (test code = 7681724796) JOSH (test code = JOSH) Association of [...] or urine or abnormalities in imaging tests). [facility] HospitalLIPASE2020-10-[facility] 23:00:00 Test Item Value Reference Range Interpretation Comments LIPASE (test code = 4342934341) 125 U/L 0-220 Lab Interpretation (test code = Normal 44857-8) [facility] WITH [id number] 22:55:00 Test Item Value Reference Range Interpretation Comments WBC (test code = See_Comment [Automated message] 0490-2) The system [employer] generated this result transmitted ref erence range: 4.30 - 1 1.10 10*3/?L. The re ference range was not u sed to interpret this result as normal/abnor mal. RBC (test code = See_Comment [Automated message] 529-8) The system [employer] generated this result transmitted ref erence range: [...] RDW-SD (test code 43.5 fL 39-49.9 = 62626-3) RDW-CV (test code 13.3 % 12-15.5 = 788-0) PLT (test code = See_Comment [Automated message] 717-3) The system whic h generated this result transmitted ref erence range: 166 - 35 8 10*3/?L. The re ference range was not u sed to interpret this result as normal/abnor mal. MPV (test code = 11.6 fL 9.5-12.9 59065-5) NRBC/100 WBC (test See_Comment [Automat ed message] code = 5215932529) The syste m which generated this result transmitted ref erence range: 0.0 - 10 .0 /100 WBCs. The refer ence range was not u sed to interpret this result as normal/abnor mal. NRBC x10^3 (test <0.01 See_Comment [Automated message] code = 9146429003) The syste m which generated this result transmitted ref erence range: 10*3/?L. The reference range was not used to interpr et this result as normal/abnormal . GRAN MAT (NEUT) % 59.7 % (test code = 770-8) IMM GRAN % (test 0.40 % code = 9223799859) LYMPH % (test code 29.5 % = 736-9) MONO % (test code 8.2 % = 5905-5) EOS % (test code = 1.7 % 713-8) BASO % (test code 0.5 % = 706-2) GRAN MAT 5.93 10*3/uL 1.88-7.09 x10^3(ANC) (test code = 1119764255) IMM GRAN x10^3 0.04 10*3/uL 0-0.06 (test code = 7305203255) LYMPH x10^3 (test 2.93 10*3/uL 1.32-3.29 code = 731-0) MONO x10^3 (test 0.81 10*3/uL 0.33-0.92 code = 742-7) EOS x10^3 (test 0.17 10*3/uL 0.03-0.39 code = 711-2) BASO x10^3 (test 0.05 10*3/uL 0.01-0.07 code = 704-7) [facility] [id number] 19:13:50CT Abdomen and Pelvis with intravenous contrast. [...] intrapelvic abnormalities detected.Please see additional comments above. [facility], Radiant Results Inft User - 06/02/2019 1:14 [...] or intrapelvic abnormalities detected.Please see additional comments above.[facility] [id number] 18:13:00 Test Item Value Reference Range Interpretation Comments APPEARANCE (test code = Clear Clear 4716822068) COLOR (test code = Yellow Yellow 0920894124) PH (test code = 4.8-8.0 6828438601) SP GRAVITY (test code = 1.003-1.030 6915195949) GLU U QUAL (test code = Normal Normal 2638379019) BLOOD (test code = Negative Negative 9357317910) KETONES (test code = Negative Negative 0360441348) PROTEIN (test code = Negative Negative 2887-8) UROBILIN (test code = Normal Normal 0340763253) BILIRUBIN (test code = Negative Negative 3029091996) NITRITE (test code = Negative Negative 3884285007) LEUK ROXANE (test code = Negative Negative 1864119612) RBC/HPF (test code = See_Comment [Autom ated message] 1830428413) The system [employer] generated this result transmitted ref erence range: 0 - 3 HP F. The reference range was not used to int erpret this result as normal/abnormal . WBC/HPF (test code = See_Comment [Autom ated message] 7818242672) The system [employer] generated this result transmitted ref erence range: 0 - 5 HP F. The reference range was not used to int erpret this result as normal/abnormal . BACTERIA (test code = Negative Negative 3414158567) MUCOUS (test code = Slight Negative LPF A 8704415195) SQ EPITH (test code = HPF 4558576321) Lab Interpretation (test Abnormal code = 53757-3) [facility]. METABOLIC PANEL (76532)2019-06-02 18:09:00 Test Item Value Reference Range Interpretation Comments NA (test code = 138 mmol/L 135-145 8850246044) K (test code = 4.2 mmol/L 3.5-5 4169389915) CL (test code = 102 mmol/L 98-108 2770455084) CO2 TOTAL (test code = 27 mmol/L 23-31 0314142036) AGAP (test code = 2-16 9195022275) BUN (test code = 12 mg/dL 7-23 2056345667) GLUCOSE (test code = 93 mg/dL 70-110 6195452535) CREATININE (test code 0.73 mg/dL 0.5-1.04 = 6961141912) TOTAL BILI (test code 0.4 mg/dL 0.1-1.1 = 5074803041) CALCIUM (test code = 9.5 mg/dL 8.6-10.6 5729926325) T PROTEIN (test code = 7.3 g/dL 6.3-8.2 7402918488) ALBUMIN (test code = 4.6 g/dL 3.5-5 0650372111) ALK PHOS (test code = 84 U/L 34-122 5212341941) ALTv (test code = 12 U/L 5-35 1742-6) AST(SGOT) (test code = 21 U/L 13-40 6132032202) eGFR Calculation mL/min/1.73m2 (Non-) (test code = 7691361486) eGFR Calculation mL/min/1.73m2 () (test code = 4936472926) JOSH (test code = JOSH) Association of [...] or urine or abnormalities in imaging tests). [facility] [id number] 18:09:00 Test Item Value Reference Range Interpretation Comments LIPASE (test code = 6186236949) 108 U/L 0-220 Lab Interpretation (test code = Normal 29799-1) [facility] WITH [id number] 18:01:00 Test Item Value Reference Range Interpretation Comments WBC (test code = See_Comment [Automated message] 6690-2) The system [employer] generated this result transmitted ref erence range: 4.30 - 1 1.10 10*3/?L. The re ference range was not u sed to interpret this result as normal/abnor mal. RBC (test code = See_Comment [Automated message] 789-8) The system [employer] generated this result transmitted ref erence range: [...] RDW-SD (test code 46.2 fL 39-49.9 = 46425-1) RDW-CV (test code 14.1 % 12-15.5 = 788-0) PLT (test code = See_Comment [Automated message] 777-3) The system [employer] generated this result transmitted ref erence range: 166 - 35 8 10*3/?L. The re ference range was not u sed to interpret this result as normal/abnor mal. MPV (test code = 10.8 fL 9.5-12.9 98958-8) NRBC/100 WBC (test See_Comment [Automat ed message] code = 3815027272) The syste [employer] which generated this result transmitted ref erence range: 0.0 - 10 .0 /100 WBCs. The refer ence range was not u sed to interpret this result as normal/abnor mal. NRBC x10^3 (test <0.01 See_Comment [Automated message] code = 5117618185) The syste m which generated this result transmitted ref erence range: 10*3/?L. The reference range was not used to interpr et this result as normal/abnormal . GRAN MAT (NEUT) % 69.9 % (test code = 770-8) IMM GRAN % (test 0.70 % code = 3669332219) LYMPH % (test code 21.2 % = 736-9) MONO % (test code 6.2 % = 5905-5) EOS % (test code = 1.4 % 713-8) BASO % (test code 0.6 % = 706-2) GRAN MAT 6.08 10*3/uL 1.88-7.09 x10^3(ANC) (test code = 2840259379) IMM GRAN x10^3 0.06 10*3/uL 0-0.06 (test code = 2942221129) LYMPH x10^3 (test 1.84 10*3/uL 1.32-3.29 code = 731-0) MONO x10^3 (test 0.54 10*3/uL 0.33-0.92 code = 742-7) EOS x10^3 (test 0.12 10*3/uL 0.03-0.39 code = 711-2) BASO x10^3 (test 0.05 10*3/uL 0.01-0.07 code = 704-7) [facility], [id number] 17:48:00 Test Item Value Reference Range Interpretation Comments POCT PREG (test code = 1605) negative POCT PREG LOT # (test code = 3575) [id number] POCT PREG TEST DATE (test 11/10/2020 code = 3576) Lab Interpretation (test code = Normal 19662-7) [facility]- XR CHEST 1 [id number] 19:54:00 Name: VIC REEVES [facility] : 1980 Age/S: 38 / F [address] Unit #: [id number] Loc: [place] [address] Phys: Génesis King MD Acct: [id number] Dis Date: Status: ADM IN PHONE #: [phone] Exam Date: 02/22/20191940 FAX #: Reason: SOB EXAMS: CPT: [id number] XR CHEST 1 V 02286 Fluoro Time: DAP (Gy m2): Air Kerma [...] edema and small right pleural effusion. at 1953 Reported and signed by: Caridad Vyas MD CC: Jordan Jean MD; Cony Partida MD; Génesis King MD PAGE1 Signed Report Name: VIC REEVES [place] : 1980 Age/S: 38 / F [address] #: [id number] Loc: [place] [address] Phys: Génesis King MD Acct: [id number] Dis Date: Status: ADM IN PHONE #: [phone] Exam Date: 02/22/20191940 FAX #: Reason: SOB EXAMS: CPT: [id number] XR CHEST 1 V 04859 Fluoro Time: DAP (Gy m2): Air Kerma (mGy): (Continued) Technologist: Jordan Chacon, RT(R)(CT) Trnscb Date/Time: 02/22/2019 (1953) t.CLW Orig Print D/T: S: 02/22/2019 (1956) PAGE 2 Signed Report- RETRO [id number] 15:32:00 Name: VIC REEVES [place] : 1980 Age/S: 38 / F [address] Unit #: [id number] Loc: [place] [address] Phys: Génesis Knig MD Acct: [id number] Dis Date: Status: ADM IN DUTCH NE #: [phone] Exam Date: 02/22/2019 1200 FAX #: Reason: back pain EXAMS: CPT: [id number] US RETRO LTD 79406 EXAMINATION: - US RETRO LTD. LOCATION: T18. [...] Génesis King MD Technologist: Nina Andrews, RT(R),MILINDMS(AB) Trnscb Date/Time: 02/22/2019 (1532) BarbieANS4 PAGE 1 Signed Report Name: VIC REEVES [place] : 1980 Age/S: 38 / F [address] Unit #: [id number] Loc: [place] [address] Phys: Génesis King MD Acct: [id number] Dis Date: Status: ADM IN PHONE #: [phone] Exam Date: 02/22/2019 1200 FAX #: Reason: back pain EXAMS: CPT: [id number] US RETRO LTD 19672 (Continued) Orig Print D/T: S: 02/22/2019 (1535) Probe: PAGE 2 Signed ReportCBC W/AUTO [id number] 12:09:00 Test Item Value Reference Range Interpretation [...] MDIFF) CONSISTA NT WITH AUTO DIFFERENTIAL. RBC [id number] 12:09:00 Test Item Value Reference Range Interpretation Comments ANISOCYTOSIS (test code = 1+ NONE ANISO) MICROCYTOSIS (test code = 1+ ON SCAN NONE MICR) PLATELET ESTIMATE (test ADEQUATE THOUSAND ADEQUATE code = PLTEST) PLATELET MORPHOLOGY (test NORMAL code = PLTMORPH) CBC W/AUTO [id number] 12:08:00 Test Item Value Reference Range Interpretation [...] = NO DIFF/SCN CRITERIA MDIFF) CBC W/AUTO [id number] 12:08:00 Test Item Value Reference Range Interpretation [...] code = NO DIFF/SCN CRITERIA MDIFF) RBC [id number] 12:08:00 Test Item Value Reference Range Interpretation Comments ANISOCYTOSIS (test code = 1+ NONE ANISO) MICROCYTOSIS (test code = 1+ ON SCAN NONE MICR) PLATELET ESTIMATE (test ADEQUATE THOUSAND ADEQUATE code = PLTEST) PLATELET MORPHOLOGY (test NORMAL code = PLTMORPH) CBC W/AUTO [id number] 12:08:00 Test Item Value Reference Range Interpretation [...] = NO DIFF/SCN CRITERIA MDIFF) BASIC METABOLIC [id number] 07:07:00 Test Item Value Reference Range Interpretation [...] CA) 7.8 MG/DL 8.5-10.1 L CBC W/AUTO [id number] 06:58:00 Test Item Value Reference Range Interpretation [...] ng/mL are obtained. - CT ABD PELVIS [id number] 20:34:00 [facility] [facility] 1980 Age/S: 38 / F [address] Unit #: [id number] Loc: [place] [address] Phys: Cony Partida MD Acct: [id number] Dis Date: Status: ADM IN PHONE#: [phone] Exam Date: 02/19/20192024 FAX #: Reason: acute PN, possible ureteral stone EXAMS: CPT: [id number] CT ABD PELVIS W/CONT 05455 CT Abdomen and Pelvis with contrast. Location: [...] 1 Signed ReportUA RFLX MICR CULT IF [id number] 19:43:00 Test Item Value Reference Range Interpretation [...] culture: Flank PainUA RFLX MICR CULT IF [id number] 19:28:00 Test Item Value Reference Range Interpretation [...] 50,000 2ND & 3R D TRIMESTER LACTIC [id number] 18:52:00 Test Item Value Reference Range Interpretation Comments LACTIC ACID (test code = LACT) 0.7 mmol/L 0.4-2.0 N CBC W/AUTO [id number] 17:55:00 Test Item Value Reference Range Interpretation [...] MDIFF) CONSISTA NT WITH AUTO DIFFERENTIAL. RBC [id number] 17:55:00 Test Item Value Reference Range Interpretation Comments ANISOCYTOSIS (test code = ANISO) 1+ NONE CBC W/AUTO [id number] 17:54:00 Test Item Value Reference Range Interpretation [...] CONSISTA NT WITH AUTO DIFFERENTIAL. CBC W/AUTO [id number] 17:54:00 Test Item Value Reference Range Interpretation [...] CONSISTA NT WITH AUTO DIFFERENTIAL. BASIC METABOLIC [id number] 17:43:00 Test Item Value Reference Range Interpretation [...] Unit/L 84-246 N code = LDH) LACTIC [id number] 17:43:00 Test Item Value Reference Range Interpretation Comments LACTIC ACID (test code = LACT) 0.8 mmol/L 0.4-2.0 N BASIC METABOLIC [id number] 17:36:00 Test Item Value Reference Range Interpretation [...] code Unit/L 84-246 = LDH) CBC W/AUTO [id number] 17:35:00 Test Item Value Reference Range Interpretation [...] Notes Date/Time Note Provider Source 2019-02-23 09:00:00-00:00 [facility] ([facility]) Discharge Summary REPORT#:[id number] REPORT STATUS: Signed DATE:02/23/19 TIME:09 PATIENT: VIC REEVES UNIT #: [id number] ROOM/BED: [place] [address] : 80 AGE: 38 SEX: F ATTEND: Kushal Partida MD ADM AUTHOR: Génesis King MD * ALL edits or amendments must be made on the [employer]/computer document * General Information Date of admission: [...] Resp 18 02/23 718 O2 Flow Rate 2.702049 02/22 2014 24 hour I O ending [...] than 30 mins at 0905 RPT #: [id number] END OF REPORT 2019-02-22 22:45:00-00:00 [facility] ([facility] Urology Progress Note REPORT#:[id number] REPORT STATUS: Signed DATE:02/22/19 TIME:2244 PATIENT: VIC REEVES UNIT #: [id number] ROOM/BED: [place] [address] : 80 AGE: 38 SEX: F ATTEND: Kushal Partida MD ADM AUTHOR: Art Nguyen MD * ALL edits or amendments must be made on the el [employer]/computer document * Subjective Chief Complaint: pyelonephritis Comments: having pain on right side, now bilateral flank no dysuria Objective Physical Exam VS/I O: Last Documented: Result Date Time O2 Delivery Nasal cannula 02/22 2014 O2 Flow Rate 2.866118 02/22 2014 Pulse Ox 100 02/22 1954 [...] on 02/11 06/01 at 2248 RPT #: [id number] END OF REPORT 2019-02-22 09:58:00-00:00 [facility] ([facility]) Hospitalist Progress Note REPORT#:[id number] REPORT STATUS: Signed DATE:02/22/19 TIME:09 PATIENT: VIC REEVES UNIT #: [id number] ROOM/BED: [place] [address] : 80 AGE: 38 SEX: F ATTEND: Kushal Partida MD ADM AUTHOR: Génesis King MD * ALL edits or amendments must be made on the [employer]/computer document * Subjective Chief Complaint: c/o L [...] refill, normal range of motion, no edema Neuro/MAIL CARRIER: alert, 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 OBSTRUCTIVE UROPATHY with minimal dil atation of R ureter- report from [place] [facility] CT A/P WITHOUT CONTRAST possibly passed [...] spasm, add dilaudid at 1000 RPT #: [id number] END OF REPORT 2019-02-21 20:37:00-00:00 [facility] Urology Progress Note REPORT#:[id number] REPORT STATUS: Signed DATE:02/21/19 TIME:2036 PATIENT: VIC REEVES UNIT #: [id number] ROOM/BED: [place] [address] : 80 AGE: 38 SEX: F ATTEND: Kristopher Partida MD ADM AUTHOR: Art Nguyen MD * ALL edits or amendments must be made on the [employer] document * Subjective Chief Complaint: pyelonephritis Comments: pain improving along with fevers eating well denies dysuria, hematuria Objective Physical Exam VS/I O: Last Documented: Result Date Time Pulse Ox 94 02/21 1901 B/P 122/79 02/21 1901 B/P Mean 93.1 02/21 1901 Temp 98.6 02/21 190 Pulse 58 02/21 190 Resp 18 02/21 [...] on 02/11 05/01 at 2047 RPT #: [id number] END OF REPORT 2019-02-21 10:37:00-00:00 [facility] ([facility]) Hospitalist Progress Note REPORT#:[id number] REPORT STATUS: Signed DATE:02/21/19 TIME:1037 PATIENT: VIC REEVES UNIT #: [id number] ROOM/BED: [place] [address] : 80 AGE: 38 SEX: F ATTEND: Kushal Partida MD ADM AUTHOR: Génesis King MD * ALL edits or amendments must be made on the [employer]/computer document * Subjective Chief Complaint: R flank [...] Flow FiO2 Mean Ox Delivery Rate 02/21 731 98.6 65 16 118/80 92.6 95 Room air 02/21 0357 100.6 78 16 120/81 94.0 97 02/21 0038 99.1 73 16 116/79 91.5 96 02/20 2109 74 16 110/72 85.0 99 02/20 2109 74 16 110/72 85.0 99 02/20 1958 98.8 64 16 91/65 73.5 99 02/20 1651 98.8 65 18 98/56 70.1 97 02/20 165 98.8 65 18 98/56 70.1 97 02/20 [...] refill, normal range of motion, no edema Neuro/MAIL CARRIER: alert, 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 OBSTRUCTIVE UROPATHY with minimal dil atation of R ureter- report from [place] ER CT A/P WITHOUT CONTRAST possibly passed [...] consult, follow u p labs at 1039 [facility] #: [id number] END OF REPORT 2019-02-20 22:11:00-00:00 [id number] [address] PATIENT NAME: VIC REEVES ADMIT DATE: 9 ACCOUNT NO: [id number] ROOM NO: L.309 AGE: 38 REPORT TYPE: [...] pending. Dictated By: Art Nguyen MD WT: CON:DAWOOD/NAVARRO/LEX Conf#: [id number]/DID#: [id number] Authenticated and Edited by Art Nguyen MD On 10:33:45 PM Electronically Signed by Art Nguyen MD on at 2235 PATIENT NAME: VIC REEVES [id number] 2019-02-20 12:46:00-00:00 [facility] ([facility]) Hospitalist Progress Note REPORT#:[id number] REPORT STATUS: Signed DATE:02/20/19 TIME:1246 PATIENT: VIC REEVES UNIT #: [id number] ROOM/BED: [place] [address] : 80 AGE: 38 SEX: F ATTEND: Kushal Partida MD ADM AUTHOR: Cony Partida MD * ALL edits or amendments must be made on the [employer]/computer document * Subjective Chief Complaint: R flank [...] refill, normal range of motion, no edema Neuro/MAIL CARRIER: alert, oriented X 3 Psychiatry: normal affect [...] (Auto) (20.5 - 51.1 %) 5.0 L [place] % (Auto) (1.7 - 9.3 %) 10.2 H Eos % (Auto) (0.0 - 6.0 %) 0.1 Baso % (Auto) (0.0 - 2.0 %) 0.1 Neut # (Auto) (1.8 - 7.6 K/mm3) 15.61 H Lymph # (Auto) (0.6 - 3.2 K/mm3) 0.9 [place] # (Auto) (0.3 - 1.1 K/mm3) 1.9 [...] - 7.0 pH UNITS) 6.0 Ur Specific [place] (1.005 - 1.030 SG) 1.020 Urine Protein [...] dil atation of R ureter- report from [facility] CT A/P WITHOUT CONTRAST possibly passed ureteral [...] MD on 02/11 at 1251 RPT #: [id number] END OF REPORT 2019-02-19 17:53:00-00:00 [facility] ([facility]) Hospitalist History Physical REPORT#:[id number] REPORT STATUS: Signed DATE:02/19/19 TIME:1753 PATIENT: VIC REEVES UNIT #: [id number] ROOM/BED: [place] [address] : 80 AGE: 38 SEX: F ATTEND: Kushal Partida MD ADM AUTHOR: Cony Partida MD * ALL edits or amendments must be made on the [employer]/computer document * History of Present Illness HPI Chief complaint: R flank pain PCP: PCP: Jordan Jean MD HPI: 38 yo white female admitted as a transfe r from [facility] ER. She has PMH of depression, insomnia, chronic back pain. 1 week now has severe R flan k pain that radiates to the RLQ and pelvic area and is constant up to 10/10 [place] r[place]. No ameliorating factor. had N/V x 1 today. she has been having dysuria and hematuria. Now has w eakness and dizziness. CT at [facility] ER with d ocumentation of likely [...] refill, normal range of motion, no edema Neuro/MAIL CARRIER: alert, oriented X 3 Psychiatry: normal affect [...] (Auto) (20.5 - 51.1 %) 5.0 L [place] % (Auto) (1.7 - 9.3 %) 10.2 H Eos % (Auto) (0.0 - 6.0 %) 0.1 Baso % (Auto) (0.0 - 2.0 %) 0.1 Neut # (Auto) (1.8 - 7.6 K/mm3) 15.61 H Lymph # (Auto) (0.6 - 3.2 K/mm3) 0.9 [place] # (Auto) (0.3 - 1.1 K/mm3) 1.9 H Eos # (Auto) (0.0 - 0.4 K/mm3) 0.0 Baso # (Auto) (0.0 - 0.1 K/mm3) 0.0 Add Manual Diff (CRITERIA DIFF/SCN) NO Anisocytosis (NONE) 1+ Diagnosis, Assessment Plan Free Text DxA P Notes Free Text DxA P Notes: 1. OBSTRUCTIVE UROPATHY with minimal dil atation of R ureter- report from [place] ER CT A/P WITHOUT CONTRAST possibly passed [...] MD on 12/30 at 1810 RPT #: [id number] END OF REPORT"
[2022-12-21] MEDS ORDERED: NA CHLORIDE 0.9% 1,000 ML ONE (01:12)
[2022-12-21] MEDS ORDERED: KETOROLAC 30 MG/ML INJ ONE (01:12)
[2022-12-21 01:20] LABS: Absolute Lymphocytes (CBC) 3.1 K/uL (0.7-4.9); Hematocrit 36.6 % (36.0-45.0); Lymphocytes % 24.9 % (15.3-44.8); MCV 85.1 fL (80-100); MPV 8.6 fL (7.6-11.3); Platelets 279 thou/uL (152-406)
[2022-12-21 01:25] LABS: Specific Gravity 1.018 (1.005-1.030); Urine Bacteria <20 /HPF (<20); Urine Bilirubin NEGATIVE (Negative); Urine Blood Negative (Negative); Urine Clarity Extremely Turbid (Clear); Urine Color Light-Yellow (Yellow); Urine Glucose NEGATIVE (Negative); Urine Protein NEGATIVE (Negative); Urine RBC <5 /HPF (None Seen); Urine Urobilinogen Normal (Normal); Urine WBC Clump Rare /HPF (None Seen); Urine pH 7.5 (5.0-7.0)
[2022-12-21 01:36] LABS: Albumin 3.3 g/dL (3.4-5.0); Bilirubin Total 0.1 mg/dL (0.2-1.0); Potassium 3.9 mEq/L (3.5-5.1); Protein, Total 6.7 g/dL (6.4-8.2)
[2022-12-21] MEDS ORDERED: ONDANSETRON 4 MG/2 ML VIAL ONE (02:51)
[2022-12-21] MEDS ORDERED: MORPHINE 4 MG/ML SYR ONE (02:51)
--- NOTE | 2022-12-21 02:59 | EDPHYS ---
Physician Documentation [facility] Name: Yohana Reeves Age: 42 yrs Sex: Female : 1980 Arrival Date: 12/21/2022 Time: 00:06 Bed 17 Private MD: ED Physician Dar Campoverde HPI: 12/21 06:38 This 42 yrs old Female presents to ER via Ambulatory with complaints of Abdominal Pain, rt Hematuria. 06:38 Patient presents to the ED with right flank pain rating to the suprapubic region, with rt associated hematuria starting today. This is consistent with prior episodes of kidney stones. Denies nausea. Denies other acute complaints at this time, symptoms are moderate severity, aching nature, no other aggravating or alleviating factors.. Historical: - Allergies: 00:40 No Known Allergies; as6 - PMHx: 00:40 chronic back pain; depressive disorder; GI Bleed; heart attack due to trauma; Kidney as6 stones; Migraine; - PSHx: 00:40 section; Emergency laparotomy; as6 - Immunization history:: Client reports receiving the 2nd dose of the Covid vaccine, pfizer x1 moderna x2. - Social history:: Smoking status: Patient denies any tobacco usage or history of. - Family history:: not pertinent. ROS: 06:38 Constitutional: Negative for fever, chills, and weight loss, Cardiovascular: Negative rt for chest pain, palpitations, and edema, Respiratory: Negative for shortness of breath, cough, wheezing, and pleuritic chest pain, MS/Extremity: Negative for injury and deformity, Skin: Negative for injury, rash, and discoloration, Neuro: Negative for headache, weakness, numbness, tingling, and seizure, Psych: Negative for depression, anxiety, suicide ideation, homicidal ideation, and hallucinations. 06:38 Abdomen/GI: Positive for abdominal pain, Negative for vomiting. 06:38 Back: Positive for flank pain, Negative for injury or acute deformity. 06:38 : Positive for hematuria. Exam: 06:38 Constitutional: This is a well developed, well nourished patient who is awake, alert, rt and in no acute distress. Head/Face: Normocephalic, atraumatic. Chest/axilla: Normal chest wall appearance and motion. Nontender with no deformity. No lesions are appreciated. Cardiovascular: Regular rate and rhythm with a normal S1 and S2. No gallops, murmurs, or rubs. Normal PMI, no JVD. No pulse deficits. Respiratory: Lungs have equal breath sounds bilaterally, clear to auscultation and percussion. No rales, rhonchi or wheezes noted. No increased work of breathing, no retractions or nasal flaring. Skin: Warm, dry with normal turgor. Normal color with no rashes, no lesions, and no evidence of cellulitis. MS/ Extremity: Pulses equal, no cyanosis. Neurovascular intact. Full, normal range of motion. Neuro: Awake and alert, GCS 15, oriented to person, place, time, and situation. Cranial nerves II-XII grossly intact. Motor strength 5/5 in all extremities. Sensory grossly intact. Cerebellar exam normal. Normal gait. 06:38 Abdomen/GI: No focal abdominal tenderness, mild right CVAT.. Vital Signs: 00:38 BP 131 / 93; Pulse 114; Resp 18 S; Temp 97.8(O); Pulse Ox 97% on R/A; Weight 88.45 kg as6 (R); Height 5 ft. 2 in. (R); Pain 9/10; 01:45 BP 124 / 77; Pulse 114; Resp 16; Pulse Ox 96% on R/A; jb4 03:15 BP 112 / 83; Pulse 92; Resp 16; Pulse Ox 92% on R/A; jb4 00:38 Body Mass Index 35.67 (88.45 kg, 157.48 cm) as6 00:38 Pain Scale: Adult as6 MDM: 00:39 Patient medically screened. rt 06:38 Differential diagnosis: Ureterolithiasis, pyelonephritis, infected stone, recently rt passed stone. Data reviewed: vital signs, nurses notes. Independent interpretation of the following test(s) in the Emergency Department CT Scan: My interpretation is No hydronephrosis seen on interpretation of the CT scan images. Counseling: I had a detailed discussion with the patient and/or guardian regarding the historical points, exam findings, and any diagnostic results supporting the discharge/admit diagnosis, lab results, radiology results, the need for outpatient follow up. Response to treatment: the patient's symptoms have markedly improved after treatment. 12/21 00:45 Order name: CBC with Diff; Complete Time: 01:52 rt 12/21 00:45 Order name: CMP; Complete Time: rt 12/21 00:45 Order name: UAM; Complete Time: rt 12/21 00:45 Order name: CT Abd/Pelvis - Without Contrast rt Administered Medications: 01:08 Drug: Ketorolac IVP 15 mg Route: IVP; Site: right antecubital; jb4 01:08 Drug: NS 0.9% IV 1000 ml Route: IV; Rate: 1 bolus; Site: right antecubital; jb4 02:53 Drug: morphine IVP or IV 4 mg Route: IVP; Infused Over: 4 mins; Site: right antecubital;jb4 02:53 Drug: Ondansetron IVP 4 mg Route: IVP; Site: right antecubital; jb4 Disposition Summary: 12/21/22 02:59 Discharge Ordered Location: Home rt Problem: new rt Symptoms: have improved rt Condition: Stable rt Diagnosis - Right flank pain rt Followup: rt - With: Private Physician - When: 2 - 3 days - Reason: Followup: rt - With: Emergency Department - When: As needed - Reason: Worsening of condition Discharge Instructions: - Discharge Summary Sheet rt - Flank Pain, Adult rt Forms: - Medication Reconciliation Form rt - Thank You Letter rt - Antibiotic Education rt - Prescription Opioid Use rt - Patient Portal Instructions rt - Leadership Thank You Letter rt Prescriptions: - acetaminophen-codeine 300-30 mg Oral tablet - take 1 tablet by ORAL route every 4 to 6 hours as needed for pain; 12 tablet; rt Refills: 0, Product Selection Permitted Signatures: Dispatcher [employer] [place] RN RN jb4 Ronald Everett RN RN as6 Dar Campoverde MD MD rt
--- NOTE | 2022-12-21 02:59 | ER ---
Nurse's Notes [facility] Name: Yohana Reeves Age: 42 yrs Sex: Female : 1980 Arrival Date: 12/21/2022 Time: 00:06 Bed 17 Private MD: Diagnosis: Right flank pain Presentation: 12/21 00:40 Chief complaint: Patient states: RLQ back radiating to lower back. Coronavirus screen: as6 At this time, the client does not indicate any symptoms associated with coronavirus-19. Ebola Screen: No symptoms or risks identified at this time. Initial Sepsis Screen: Does the patient meet any 2 criteria? No. Patient's initial sepsis screen is negative. Does the patient have a suspected source of infection? No. Patient's initial sepsis screen is negative. Risk Assessment: Do you want to hurt yourself or someone else? Patient reports no desire to harm self or others. Onset of symptoms was December 20, 2022 at 19:00. 00:40 Acuity: NICOLASA 3 as6 00:40 Method Of Arrival: Ambulatory as6 Historical: - Allergies: 00:40 No Known Allergies; as6 - PMHx: 00:40 chronic back pain; depressive disorder; GI Bleed; heart attack due to trauma; Kidney as6 stones; Migraine; - PSHx: 00:40 section; Emergency laparotomy; as6 - Immunization history:: Client reports receiving the 2nd dose of the Covid vaccine, pfizer x1 moderna x2. - Social history:: Smoking status: Patient denies any tobacco usage or history of. - Family history:: not pertinent. Screenin:00 [facility] ED Fall Risk Assessment (Adult) History of falling in the last 3 months, jb4 including since admission No falls in past 3 months (0 pts) Confusion or Disorientation No (0 pts) Score/Fall Risk Level 0 - 2 = Low Risk Oriented to surroundings, Maintained a safe environment. Abuse screen: Denies threats or abuse. Nutritional screening: No deficits noted. Tuberculosis screening: No symptoms or risk factors identified. Assessment: 01:08 General: Appears in no apparent distress. uncomfortable, Behavior is calm, cooperative, jb4 appropriate for age. Pain: Complains of pain in abdomen Pain does not radiate. Pain currently is 9 out of 10 on a pain scale. Neuro: Level of Consciousness is awake, alert, obeys commands, Oriented to person, place, time, situation. Cardiovascular: Patient's skin is warm and dry. Respiratory: Airway is patent Respiratory effort is even, unlabored, Respiratory pattern is regular, symmetrical. GI: Abdomen is round non-distended. : No signs and/or symptoms were reported regarding the genitourinary system. EENT: No signs and/or symptoms were reported regarding the EENT system. Derm: Skin is intact, Skin is pink, warm \T\ dry. 02:02 Reassessment: Patient appears in no apparent distress at this time. Patient and/or jb4 family updated on plan of care and expected duration. Pain level reassessed. Patient is alert, oriented x 3, equal unlabored respirations, skin warm/dry/pink. 03:30 Reassessment: Patient appears in no apparent distress at this time. Patient and/or jb4 family updated on plan of care and expected duration. Pain level reassessed. Patient is alert, oriented x 3, equal unlabored respirations, skin warm/dry/pink. Vital Signs: 00:38 BP 131 / 93; Pulse 114; Resp 18 S; Temp 97.8(O); Pulse Ox 97% on R/A; Weight 88.45 kg as6 (R); Height 5 ft. 2 in. (R); Pain 9/10; 01:45 BP 124 / 77; Pulse 114; Resp 16; Pulse Ox 96% on R/A; jb4 03:15 BP 112 / 83; Pulse 92; Resp 16; Pulse Ox 92% on R/A; jb4 00:38 Body Mass Index 35.67 (88.45 kg, 157.48 cm) as6 00:38 Pain Scale: Adult as6 ED Course: 00:09 Patient arrived in ED. jj6 00:13 Dar Campoverde MD is Attending Physician. rt 00:38 Arm band placed on. as6 00:41 Triage completed. as6 00:53 Gentry lEmore, FÁTIMA is Primary Nurse. jb4 01:36 CT Abd/Pelvis - Without Contrast In Process Unspecified. EDMS 03:00 Patient has correct armband on for positive identification. Bed in low position. Call jb4 light in reach. Side rails up X 1. Client placed on continuous cardiac and pulse oximetry monitoring. NIBP monitoring applied. 03:00 No provider procedures requiring assistance completed. IV discontinued, intact, jb4 bleeding controlled, No redness/swelling at site. Pressure dressing applied. Administered Medications: 01:08 Drug: Ketorolac IVP 15 mg Route: IVP; Site: right antecubital; jb4 01:08 Drug: NS 0.9% IV 1000 ml Route: IV; Rate: 1 bolus; Site: right antecubital; jb4 02:53 Drug: morphine IVP or IV 4 mg Route: IVP; Infused Over: 4 mins; Site: right antecubital;jb4 02:53 Drug: Ondansetron IVP 4 mg Route: IVP; Site: right antecubital; jb4 Outcome: 02:59 Discharge ordered by MD. rt 03:00 Discharged to home ambulatory. jb4 03:00 Condition: stable 03:00 Discharge instructions given to patient, Instructed on discharge instructions, follow up and referral plans. medication usage, Demonstrated understanding of instructions, follow-up care, medications, Prescriptions given X 1. 03:48 Patient left the ED. jb4 Signatures: Dispatcher [employer] EDMS Gentry Elmore, RN RN jb4 Nani Leej6 Ronald Everett RN RN as6 Dar Campoverde MD MD rt Corrections: (The following items were deleted from the chart) 03:48 03:00 Discharge instructions given to patient, Instructed on discharge instructions, jb4 follow up and referral plans. Demonstrated understanding of instructions, follow-up care, jb4
[2022-12-21 03:52] VITALS: TEMP 97.8
[2022-12-21 03:55] VITALS: BP 112/83; O2SAT 92
--- NOTE | 2022-12-22 14:09 | RAD REPORT ---
EXAM DESCRIPTION: CT - Abdomen Pelvis Wo Contrast - 12/21/2022 6:47 am CLINICAL HISTORY: The patient is 42 years old and is Female; r flank pain TECHNIQUE: Axial computed tomography images of the abdomen and pelvis without intravenous contrast. Sagittal and coronal reformatted images were created and reviewed. This CT exam was performed usi ng one or more of the following dose reduction techniques: automated exposure control, adjustment o f the mA and/or kV according to patient size, and/or use of iterative reconstruction technique. COMPARISON: No relevant prior studies available. FINDINGS: Lung bases: There a few nodular groundglass opacities in the left lung base. ABDOMEN: Liver: Hepatomegaly with diffuse hepatic steatosis. Gallbladder and bile ducts: Unremarkable. No calcified stones. No ductal dilation. Pancreas: Unremarkable. No ductal dilation. Spleen: Unremarkable. No splenomegaly. Adrenals: Unremarkable. No mass. Kidneys and ureters: Unremarkable. No obstructing stones. No hydronephrosis. Stomach and bowel: Scattered colonic diverticula. No obstruction. No mucosal thickening. PELVIS: Appendix: The appendix is normal. Bladder: Unremarkable. Reproductive: Unremarkable as visualized. ABDOMEN and PELVIS: Intraperitoneal space: Unremarkable. No free air. No significant fluid collection. Bones/joints: No acute fracture. No dislocation. Soft tissues: Unremarkable. Vasculature: Unremarkable. No abdominal aortic aneurysm. Lymph nodes: Unremarkable. No enlarged lymph nodes. IMPRESSION: 1. Hepatomegaly with diffuse hepatic steatosis. 2. There a few nodular groundglass opacities in the left lung base. Correlate with any concern fo r infection. Electronically signed by: Boris Membreno MD 12/21/2022 1:58 AM CDT Due to temporary technical issues with the PACS/Fluency reporting system, reports are being signed by the in house radiologist without review as a courtesy to ensure prompt reporting. The interpreting r adiologist is fully responsible for the content of the report.
== END 2022-12-21 03:48 | disposition home or self-care (01) ==
LOC: ER 00:06
DX: R10.9 Unspecified abdominal pain (principal); R31.9 Hematuria, unspecified; M54.9 Dorsalgia, unspecified; G43.909 Migraine, unspecified, not intractable, without status migrainosus; I25.2 Old myocardial infarction; F32.A Depression, unspecified
CPT/HCPCS: 85025; 81001; 36415; 80053; 74176; 96375; 96374; 99284; J2405; J7030

== ENCOUNTER 2023-02-19 07:41 | Emergency (ER) | payer BC ==
--- OUTSIDE RECORDS SUMMARY | 2023-02-19 07:49 | XMS REPORT | Continuity of Care Document ---
:1980 Author Organization [facility] t Address [address] [place] [address] [place] [id number] Care Team Providers Name Role Phone None, None Primary Care Physician Joy Hitchcock RN Attending Clinician Unavailable Jung SHINE, Linnette Attending Clinician Unavailable Ollie Tobar MD Attending Clinician Di Lundberg MD Attending Clinician [phone] Viviane VARMA, Eric Attending Clinician [facility] Attending Clinician Unavailable Doctor Unassigned, [place] Attending Clinician Unavailable CAITIE SHIPLEY Attending Clinician Unavailable Caitie Klein Attending Clinician ANGEL ATKINS Attending Clinician Unavailable ELISE DANIELSON Attending Clinician Unavailable Elise Danielson NP Attending Clinician Pob, [facility] Attending Clinician Unavailable Ariel Britt MD Attending Clinician ARIEL BRITT Attending Clinician Unavailable aPul Sams MD Attending Clinician PAUL SAMS Attending Clinician Unavailable Alex Pierce Attending Clinician [phone] Megan Aranda Attending Clinician Ann Cardozo DO Attending Clinician Angelo Robles MD Attending Clinician Naun Bush MD Attending Clinician Mark Monterroso Attending Clinician Candido Isabel Attending Clinician CANDIDO RAMIREZ Attending Clinician Unavailable ERIC TAVARES Admitting Clinician Unavailable DILLON_LARRY_Stan_Edis Admitting Clinician Unavailable CAITIE SHIPLEY Admitting Clinician Unavailable Naun Bush MD Admitting Clinician CANDIDO RAMIREZ Admitting Clinician Unavailable Payers Payer Name Policy Type Policy Number Effective Date Expiration Date S ource [place] OF [id number] 2021 [facility] 00:00:00 TML GBRP CLAIMS [id number] 2017 00:00:00 BCBS PPO POS EPO CHOICE [id number] 2021 00:00:00 TML - INTERGOVERNMENTAL [id number] 2017 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 PLAN 00:00:00 [place] TRUE CHOICE (PPO) Problems Condition Condition Condition [...] nivers a a 0-28 ity of 00:00: [address] Family Family Disease Active 2019-04 Univers history of history of 0-28 [place] y of early CAD [place] [address] [place] [address] Branch Obesity Obesity Disease Active 2019-04 Univers (BMI (BMI 0-27 ity of 30-39.9) 30-39.9) 00:00: Medical Branch Chest pain Chest pain Disease Active 2019-04 U nivers 0-27 ity of 00:00: Medical Branch RLQ RLQ Disease Active [...] Type Date Date Clinician ally PEARL Active DE [facility] subsalic 7-29 Clear ylate 00:00: 00 [facility] NO KNOWN Allergy Active [facility] NO KNOWN Drug Active [facility] ALLERGIE Class ity of S [facility] Social History Social Habit Start Date Stop Date Quantity Comments Source Sexual orientation [facility] History of tobacco Cigarette Smoker [facility]ism use Hospital Gender identity Yazdanism [facility] History of Social 2022-09-30 2022-09-[address] function 00:00:00 00:00:00 Hospital Tobacco use and 2022-09-27 2022-09-27 Smokeless tobacco Me thodist exposure 00:00:00 00:00:00 non-user Hospital Exposure to 2022-06-23 2022-07-03 Not sure [facility] SARS-CoV-2 (event) 00:00:00 10:38:00 Alcohol intake 2021-10-15 2021-10-15 Ex-drinker NOREEN Lynn es 00:00:00 00:00:00 (finding) Medical Center History [facility] 2020-02-08 2020-02-08 99 University o f Alcohol Frequency 00:00:00 00:00:00 [facility] edical Branch History [facility] 2020-02-08 2020-02-08 99 [place] o f Alcohol Std Drinks 00:00:00 00:00:00 [facility] History SDOH 2020-02-08 2020-02-08 99 [place] o f Alcohol Binge 00:00:00 00:00:00 [facility] al Branch Tobacco Comment 2020-02-07 2020-02-07 rarely Universit y of 00:00:00 00:00:00 [facility] Alcohol Comment 2020-02-07 2020-02-07 occasionally Univers ity of 00:00:00 00:00:00 [facility] Cigarettes smoked 2020-01-24 2020-01-24 Univers ity of current (pack per 00:00:00 00:00:00 [place] ) - Reported Branch Sex Assigned At [birth year] NOREEN Fernandez 00:00:00 00:00:00 [facility] Center Smoking Status Start Date Stop Date Source Heavy Tobacco Smoker Ting Vargas riky Ex-smoker 2022-09-27 00:00:00 2022-09-27 00:00:00 [facility] Medications Ordered Filled Start Stop Current Ordering Indication Dosage Frequency Signature Comments Components Source Medication Medication Date Date Medication? Clinician (SIG) Name Name ALPRAZolam Yes 2mg QD Take 4 Metho di (XANAX) 0.5 6-21 tablets (2 st MG tablet 13:32: mg total) Hos denita 02 by mouth l daily. ARIPiprazol Yes aripiprazo Methodi e (ABILIFY) 10-[address] 5 MG tablet 13:32: tablet Hosp se 02 TAKE 1 & l 1/2 TABLETS BY MOUTH NIGHTLY bisoproloL- Yes bisoprolol Methodi hydrochloro -[address] thiazide 13:32: mg-hydroch Hos denita [...] MOUTH AT BEDTIME NEEDED MAY MAKE DROWSY ALPRAZolam 0 Yes 2mg QD Take 4 Metho di (XANAX) 0.5 6-21 tablets (2 st MG tablet 13:32: mg total) Hos denita 02 by mouth l daily. ARIPiprazol Yes aripiprazo Methodi e (ABILIFY) 6- le [address] 5 MG tablet 13:32: tablet Hosp se 02 TAKE 1 & l 1/2 TABLETS BY MOUTH NIGHTLY bisoproloL- Yes bisoprolol Methodi hydrochloro 6-[address] thiazide 13:32: mg-hydroch Hos denita (ZIAC) 02 lorothiazi l 5-6.25 mg de 6.25 mg per tablet tablet TAKE 1 TABLET BY MOUTH ONCE DAILY traZODone Yes trazodone Met hodi (DESYREL) - [address] 50 MG 13:32: tablet Hospita tablet 02 TAKE 1 OR l 2 TABLETS BY MOUTH ONCE DAILY NEEDED zolpidem Yes zolpidem Metho di (AMBIEN) 10 6-[address] mg tablet 13:32: tablet Hospit a 02 TAKE 1 l TABLET BY MOUTH AT BEDTIME NEEDED MAY MAKE DROWSY atorvastati 2022- No 40mg QD Take 1 Met hodi n (LIPITOR) 09-30- tablet (40 s t 40 mg 00:00: 04:59 mg total) Hospit a tablet 00 :00 by mouth l nightly for 30 days. butalbital- 2022- No 1{tbl} Q4H Take 1 M ethodi acetaminoph 09-[address] en-caff 00:00: 04:59 mouth Hospita (FIORICET) 00 :00 every 4 l 50-325-40 (four) mg per hours as tablet needed for headaches for up to 30 days. atorvastati 0 2022- No 40mg QD Take 1 Met hodi n (LIPITOR) 09-30- tablet (40 s t 40 mg 00:00: 04:59 mg total) Hospit a tablet 00 :00 by mouth l nightly for 30 days. butalbital- 2022- No 1{tbl} Q4H Take 1 M ethodi acetaminoph 09-30 07-21 tablet by en-caff 00:00: 04:59 mouth Hospita (FIORICET) 00 :00 every 4 l 50-325-40 (four) mg per hours as tablet needed for headaches for up to 30 days. butalbital- 2022- No 1{tbl} 1 tablet, Univers acetaminoph 09-15 Oral, ity of en-caff 15:00: 16:51 ONCE, 1 [place] (ESGIC) 00 :00 dose, On Medical 50-325-40 [...] Thu09/15/22 at 0945, STAT iopamidol 2022- No [id number] 130mL 130 mL, Univers (ISOVUE 09-15 Intravenou ity o f 370-500 mL) 14:20: 14:20 s, ONCE, 1 [place] injection 00 :00 dose, On Medica l 130 mL Thu09/15/22 Branch at 0945, Routine cefTRIAXone 2022- No 1000mg 1,000 mg, Univers (ROCEPHIN) 09-15 IV ity of 1,000 mg in 14:15: 14:25 Piggyback, [place] NaCl 0.9% 00 :00 ONCE, 1 Medical (NS) 100 mL dose, On Bran ch MINI-BAG Thu09/15/22 at 0915, Administer over 30 Minutes, 100 mL
Reas on for Anti-Infec tive: Documented Infection< br>Documen alistair Infection Site: Urine<br&g t;Duration of Therapy: 7 days ketorolac 0 2022- No 30mg 30 mg, Unive rs (TORADOL) 09-15 Slow IV ity of injection 14:00: 13:48 Push, [place] 30 mg 00 :00 ONCE, 1 Medical dose, On Branch Thu09/15/22 at 0900, LORENE famotidine 2022- No 20mg 20 mg, Univ ers (PEPCID 09-15 Slow IV ity of (PF)) 13:45: 13:49 Push, [place] injection 00 :00 ONCE, 1 Medical 20 mg dose, On Branch Thu09/15/22 at 0845, L[place] diphenhydrA 0 2022- No 12.5mg 12.5 mg, Univers MINE [...] mg Thu09/15/22 Branch at 0845, L[place] dicyclomine 2022-0 Yes [id number] 20mg Take 1 Univers 20 mg 6-05 tablet by ity of tablet 00:00: mouth 4 (four) Medical times Branch daily as needed for Abdominal pain. dicyclomine 2022-0 Yes [id number] 20mg Take 1 Univers 20 mg 6-05 tablet by ity of tablet 00:00: mouth 4 (four) Medical times Branch daily as needed for Abdominal pain. cefdinir 2022-0 2022- No [id number] 300mg Take 1 Univers 300 mg 09-15 [...] Take 120 UT HCl 3-23 mg by [facility] ([place]) 11:02: mouth 1 120 MG [...] Take 1 UT -acetaminop 3-23 tablet by [facility] hen ([place]) 11:02: mouth if 5-325 MG 08 needed. [...] 14:24: daily. Medica l 12 Center montelukast 0 Yes 10mg QD Take 10 [...] Lukes MG tablet 14:24: daily. Medica l [address] [place] [address] montelukast 2-0 Yes 10mg QD Take [address] [facility] (SINGULAIR) 7-05 by mouth Luke s 10 mg 14:24: nightly. Medical tablet [address] [place] [address] benzonatate 2022-0 Yes 100mg Take [address] (TESSALON) 7-05 mg by Lukes 100 MG 14:24: mouth 3 Medical capsule 12 (three) Center times daily as needed for Cough. meloxicam 2-0 Yes 15mg QD Take [address] (MOBIC) 15 7-05 by mouth Lukes MG tablet 14:24: daily. Medica [address] montelukast 2021-0 Yes 10mg QD Take [address] (SINGULAIR) 7-05 by mouth Luke s 10 mg 14:24: nightly. Medical tablet [address] [place] [address] benzonatate 2-0 Yes 100mg Take [address] (TESSALON) 7-05 mg by Lukes 100 MG 14:24: mouth 3 Medical capsule 12 (three) Center times daily as needed for Cough. benzonatate 2022-0 Yes 100mg Take [address] (TESSALON) 7-05 mg by Lukes 100 MG 14:24: mouth 3 Medical capsule 12 (three) Center times daily as needed for Cough. meloxicam 2022-0 Yes 15mg QD Take [address] (MOBIC) 15 7-05 by mouth Lukes MG tablet 14:24: daily. Medica [address] meloxicam 2022-0 Yes 15mg QD Take [address] (MOBIC) 15 7-05 by mouth Lukes MG tablet 14:24: daily. Medica l [address] [place] [address] montelukast 2-0 Yes 10mg QD Take [address] (SINGULAIR) 7-05 by mouth Luke s 10 mg 14:24: nightly. Medical tablet [address] [place] [address] montelukast 2-0 Yes 10mg QD Take [address] (SINGULAIR) 7-05 by mouth Luke s 10 mg 14:24: nightly. Medical tablet [address] [place] benzonatate Yes 100mg Take [address] (TESSALON) 7-05 mg by Lukes 100 MG 14:24: mouth 3 Medical capsule 12 (three) Center times daily as needed for Cough. meloxicam 0 Yes 15mg QD Take [address] (MOBIC) 15 7-05 by mouth Lukes MG tablet 14:24: daily. Medica l [address] [place] [address] montelukast Yes 10mg QD Take [address] (SINGULAIR) 7-05 by mouth Luke s 10 mg 14:24: nightly. Medical tablet 12 [place] benzonatate Yes 100mg Take [address] (TESSALON) 7-05 mg by Lukes 100 MG 14:24: mouth 3 Medical capsule 12 (three) Center times daily as needed for Cough. meloxicam 0 Yes 15mg QD Take [address] (MOBIC) 15 7-05 by mouth Lukes MG tablet 14:24: daily. Medica l [address] [place] [address] montelukast Yes 10mg QD Take [address] (SINGULAIR) 7-05 by mouth Luke s 10 mg 14:24: nightly. Medical tablet 12 [place] benzonatate Yes 100mg Take [address] (TESSALON) 7-05 mg by Lukes 100 MG 14:24: mouth 3 Medical capsule 12 (three) Center times daily as needed for Cough. meloxicam 0 Yes 15mg QD Take [address] (MOBIC) 15 7-05 by mouth Lukes MG tablet 14:24: daily. Medica l [address] [place] [address] montelukast Yes 10mg QD Take [address] (SINGULAIR) 7-05 by mouth Luke s 10 mg 14:24: nightly. Medical tablet [address] [place] [address] butalbital- 2021- No 1{tbl} Take 1 C [...] 4 mg, Slow Un carol injection 4 4-12 04-12 IV Push, ity of mg 19:15: 18:10 ONCE, 1 [place] 00 :00 dose, [facility] Medical 07/23/20 at Branch 1415, STAT ondansetron 2020- No 4mg 4 mg, Slow Univers (ZOFRAN 07-23 IV Push, ity of (PF)) 18:00: 16:55 ONCE, 1 [place] injection 4 00 :00 dose, Mon Med ical mg 07/23/20 at Branch 1300, LORENE ketorolac 2020- No 30mg 30 mg, Unive rs (TORADOL) 07-23 Slow IV ity of injection 18:00: 16:55 Push, [place] 30 mg 00 :00 ONCE, 1 Medical dose, Mon Branch 07/23/20 at 1300, LORENE
Fa culty member approving Restricted medication : MEGAN BEAN iohexol 2020- No [id number] 120mL 120 mL, Univers (OMNIPAQUE 07-23 Intravenou it y of 350 17:15: 17:10 s, ONCE, 1 [place] BULK-150 00 :00 dose, Mon Medica l mL) 07/23/20 at Branch injection 1215, 120 mL Routine ondansetron 2020-0 Yes 4mg Take 1 Meth nadya ODT 4-12 tablet (4 st (ZOFRAN-ODT 00:00: mg total) H ospita ) 4 MG 00 by mouth. l disintegrat ing tablet ondansetron 2020-0 Yes 4mg Take 1 Meth nadya ODT 4-12 tablet (4 st (ZOFRAN-ODT 00:00: mg total) H ospita ) 4 MG 00 by mouth. l disintegrat ing tablet ondansetron 2020-0 Yes [id number] 4mg Take 1 Univers (ZOFRAN 4-12 tablet by ity of ODT) 4 mg 00:00: mouth [place] disintegrat 00 every 8 Medic al ing tablet (eight) Branch hours as needed for Nausea and Vomiting (N/V). ondansetron 1-0 Yes [id number] 4mg Take 1 Univers (ZOFRAN 4-12 tablet by ity of ODT) 4 mg 00:00: mouth [place] disintegrat 00 every 8 Medic al ing tablet (eight) Branch hours as needed for Nausea and Vomiting (N/V). ondansetron 2020-0 Yes [id number] 4mg Take 1 Univers (ZOFRAN 4-12 tablet by ity of ODT) 4 mg 00:00: mouth [place] disintegrat 00 every 8 Medic al ing tablet (eight) Branch hours as needed for Nausea and Vomiting (N/V). ondansetron 2020-0 Yes [id number] 4mg Take 1 Univers (ZOFRAN 4-12 tablet by ity of ODT) 4 mg 00:00: mouth [place] disintegrat 00 every 8 Medic al ing tablet (eight) Branch hours as needed for Nausea and Vomiting (N/V). ondansetron 2020-0 Yes [id number] 4mg Take 1 Univers (ZOFRAN 4-12 tablet by ity of ODT) 4 mg 00:00: mouth [place] disintegrat 00 every 8 Medic al ing tablet (eight) Branch hours as needed for Nausea and Vomiting (N/V). ondansetron 2020-0 Yes [id number] 4mg Take 1 Univers (ZOFRAN 4-12 tablet by ity of ODT) 4 mg 00:00: mouth [place] disintegrat 00 every 8 Medic al ing tablet (eight) Branch hours as needed for Nausea and Vomiting (N/V). ondansetron 2020-0 Yes [id number] 4mg Take 1 Univers (ZOFRAN 4-12 tablet by ity of ODT) 4 mg 00:00: mouth [place] disintegrat 00 every 8 Medic al ing tablet (eight) Branch hours as needed for Nausea and Vomiting (N/V). ondansetron 2020-0 Yes [id number] 4mg Take 1 Univers (ZOFRAN 4-12 tablet by ity of ODT) 4 mg 00:00: mouth [place] disintegrat 00 every 8 Medic al ing tablet (eight) Branch hours as needed for Nausea and Vomiting (N/V). ondansetron 2020-0 Yes [id number] 4mg Take 1 Univers (ZOFRAN 4-12 tablet by ity of ODT) 4 mg 00:00: mouth [place] disintegrat 00 every 8 Medic al ing tablet (eight) Branch hours as needed for Nausea and Vomiting (N/V). butorphanol 0 2020- No 1mg 1 mg, IV U nivers (STADOL) 1-16 01-15 Push, ity of injection 1 00:00: 23:22 [...] dose, Fri Medical 50-325-40 04/27/20 at [facility] ch mg tablet 1 1530, tablet Routine [...] 0-28 mouth ity of (BYSTOLIC 19:30: daily. [place] ORAL) 22 Medical Branch zolpidem 2019-04 Yes 10mg Take 10 mg Uni vers (AMBIEN) 10 0-28 by mouth ity of mg tablet 19:30: at [place] 22 bedtime. Medical Branch FLUoxetine 2019-04 Yes 80mg Take 80 mg U nivers (PROZAC) 40 0-28 by mouth ity of mg capsule 19:30: daily. [place] [address] Medical Branch ARIPiprazol 2019-04 Yes 5mg Take 5 mg U nivers e (ABILIFY) 0-28 by mouth ity of 5 mg tablet 19:30: daily. [facility] s 22 Medical Branch HYDROcodone 2019-04 [...] 0-28 mouth ity of (BYSTOLIC 19:30: daily. [place] [address] Medical Branch zolpidem 2019-04 Yes 10mg Take 10 mg Uni vers (AMBIEN) 10 0-28 by mouth ity of mg tablet 19:30: at [place] [address] bedtime. Medical Branch FLUoxetine 2019-04 Yes 80mg Take 80 mg U nivers (PROZAC) 40 0-28 by mouth ity of mg capsule 19:30: daily. [address] ARIPiprazol 2019-04 Yes 5mg Take 5 mg U nivers e (ABILIFY) 0-28 by mouth ity of 5 mg tablet 19:30: daily. [facility] s 22 Medical Branch HYDROcodone 2019-04 [...] mouth ity of mg tablet 19:30: at [place] [address] bedtime. Medical Branch FLUoxetine 2019-04 Yes 80mg Take 80 mg U nivers (PROZAC) 40 0-28 by mouth ity of mg capsule 19:30: daily. [place] [address] Medical Branch ARIPiprazol 2019-04 Yes 5mg Take 5 mg U nivers e (ABILIFY) 0-28 by mouth ity of 5 mg tablet 19:30: daily. [facility] [place] 22 Medical Branch HYDROcodone 2019-04 Yes 1{tbl} [...] capsule Branch nebivolol 2019-04 [facility]28 mouth ity of (BYSTOLIC 14:30: daily. [facility]) Medical Branch zolpidem 2019-04 Yes 10mg Take 10 mg Uni vers (AMBIEN) 10 0-28 by mouth ity of mg tablet 14:30: at [place] [address] bedtime. Medical Branch FLUoxetine 2019-04 Yes 80mg Take 80 mg U nivers (PROZAC) 40 0-28 by mouth ity of mg capsule 14:30: daily. [address] Branch ARIPiprazol 2019-04 Yes 5mg Take 5 mg U nivers e (ABILIFY) 0-28 by mouth ity of 5 mg tablet 14:30: daily. [place] [address] Medical Branch HYDROcodone 2019-04 Yes 1{tbl} Take [...] 0-28 mouth ity of (BYSTOLIC 14:30: daily. [place] ORAL) Medical Branch zolpidem 2019-04 Yes 10mg Take 10 mg Uni vers (AMBIEN) 10 0-28 by mouth ity of mg tablet 14:30: at [place] [address] bedtime. Medical Branch FLUoxetine 2019-04 Yes 80mg Take 80 mg U nivers (PROZAC) 40 0-28 by mouth ity of mg capsule 14:30: daily. [place] [address] Medical Branch ARIPiprazol 2019-04 Yes 5mg Take 5 mg U nivers e (ABILIFY) 0-28 by mouth ity of 5 mg tablet 14:30: daily. [address] Branch HYDROcodone 2019-04 Yes 1{tbl} Take [...] 0-28 mouth ity of (BYSTOLIC 14:30: daily. [facility]) Medical Branch zolpidem 2019-04 Yes 10mg Take 10 mg Uni vers (AMBIEN) 10 0-28 by mouth ity of mg tablet 14:30: at [place] [address] bedtime. Medical Branch FLUoxetine 2019-04 Yes 80mg Take 80 mg U nivers (PROZAC) 40 0-28 by mouth ity of mg capsule 14:30: daily. [place] [address] Medical Branch ARIPiprazol 2019-04 Yes 5mg Take 5 mg U nivers e (ABILIFY) 0-28 by mouth ity of 5 mg tablet 14:30: daily. [address] Branch HYDROcodone 2019-04 Yes 1{tbl} Take [...] 0-28 mouth ity of (BYSTOLIC 14:30: daily. [place] ORAL) Medical Branch zolpidem 2019-04 Yes 10mg Take 10 mg Uni vers (AMBIEN) 10 0-28 by mouth ity of mg tablet 14:30: at [place] [address] bedtime. Medical Branch FLUoxetine 2019-04 Yes 80mg Take 80 mg U nivers (PROZAC) 40 0-28 by mouth ity of mg capsule 14:30: daily. [place] [address] Medical Branch ARIPiprazol 2019-04 Yes 5mg Take [...] 0-28 mouth ity of (BYSTOLIC 14:30: daily. [place] ORAL) Medical Branch zolpidem 2019-04 Yes 10mg Take 10 mg Uni vers (AMBIEN) 10 0-28 by mouth ity of mg tablet 14:30: at [place] [address] bedtime. Medical Branch FLUoxetine 2019-04 Yes 80mg Take 80 mg U nivers (PROZAC) 40 0-28 by mouth ity of mg capsule 14:30: daily. [place] [address] Medical Branch ARIPiprazol 2019-04 Yes 5mg Take [...] 0-28 mouth ity of (BYSTOLIC 14:30: daily. [place] ORAL) Medical Branch zolpidem 2019-04 Yes 10mg Take 10 mg Uni vers (AMBIEN) 10 0-28 by mouth ity of mg tablet 14:30: at [place] [address] bedtime. Medical Branch FLUoxetine 2019-04 Yes 80mg Take 80 mg U nivers (PROZAC) 40 0-28 by mouth ity of mg capsule 14:30: daily. [place] [address] Medical Branch ARIPiprazol 2019-04 Yes 5mg Take 5 mg U nivers e (ABILIFY) 0-28 by mouth ity of 5 mg tablet 14:30: daily. [facility] [place] 22 Medical Branch HYDROcodone 2019-04 Yes 1{tbl} [...] 0-28 mouth ity of (BYSTOLIC 14:30: daily. [place] ORAL) Medical Branch zolpidem 2019-04 Yes 10mg Take 10 mg Uni vers (AMBIEN) 10 0-28 by mouth ity of mg tablet 14:30: at [place] [address] bedtime. Medical Branch FLUoxetine 2019-04 Yes 80mg Take 80 mg U nivers (PROZAC) 40 0-28 by mouth ity of mg capsule 14:30: daily. [place] [address] Medical Branch ARIPiprazol 2019-04 Yes 5mg Take [...] mouth ity of mg tablet 14:30: at [place] [address] bedtime. Medical Branch FLUoxetine 2019-04 Yes 80mg Take 80 mg U nivers (PROZAC) 40 0-28 by mouth ity of mg capsule 14:30: daily. [place] [address] Medical Branch ARIPiprazol 2019-04 Yes 5mg Take [...] 0-28 Oral, ity of (PROTONIX) 14:00: DAILY, [place] EC tablet 00 First dose Medi riky [...] ity of XR) 24 hr 13:00: WITH [place] capsule 150 00 BREAKFAST, Me dical mg First dose Branch on Thu02/08/20 at 0800, Until Discontinu ed, Routine zolpidem 2019-04 Yes 10mg 10 mg, Univers (AMBIEN) 0 Oral, QHS, ity o f tablet 10 02:00: First dose [place] mg 00 on [facility] 02/07/20 Branch at 2100, Until Discontinu ed, Routine NaCl 0.9% 2019-04 2020- No IV Univers (NS) IV 002-07 Infusion, ity of infusion 02:00: 09:59 at 125 [place] 00 :00 mL/hr, Medical CONTINUOUS Branch , Starting Thu02/07/20 at 2100, Until Thu02/08/20 at 0459, Routine HYDROcodone 2019-04 Yes 1{tbl} 1 tablet, Univers -acetaminop 0-28 Oral, BID, it y of hen (NORCO 01:00: First dose [place] 5) 5-325 mg 00 on [facility] l tablet 1 02/07/20 Branch tablet at 2000, Until Discontinu ed, Routine nitroglycer 2019-04 Yes .4mg 0.4 mg, Uni vers in 0-28 Sublingual ity of (NITROSTAT) 00:22: , Q5MIN [place] as sublingual 18 PRN, Medical tablet 0.4 Starting Branc h mg [facility] 02/07/20 at 192, Until Discontinu ed, Routine, Chest pain morpHINE 2019-04 2020- No 2mg 2 mg, Slow Un carol injection 2 02-08 IV Push, ity of mg 00:21: 00:20 Q4HPRN, [place] 44 :44 Starting Medical [facility] 02/07/20 at 192, Until 02/08/20 at 192, Routine, Pain (scale 7-10), Chest pain acetaminoph 2019-04 2020- No 1{tbl} 1 tablet, Univers en-codeine 02-09 Oral, ity of (TYLENOL 00:21: [facility] [place] #3) 300-30 33 :33 Starting Medic al mg tablet 1 [facility] tablet 02/07/20 at 192, Until [place] 02/09/20 at 192, Routine, Pain (scale 4-6) acetaminoph 2019-04 Yes 650mg 650 mg, Un carol en Oral, ity of (TYLENOL) 00:21: Q6HPRN, [place] tablet 650 31 Starting Medic al mg [facility] 02/07/20 at 192, Until Discontinu ed, Routine, Pain (scale 1-3) FENTanyl PF 2019-04- No 100ug 100 mcg, Univers (SUBLIMAZE 02-06 Slow IV ity o f (PF)) 23:30: 22:26 Push, [place] injection 00 :00 ONCE, 1 Medical 100 mcg dose, [facility] 02/07/20 at 1830, STAT nitroglycer 2019-04- No .4mg 0.4 mg, Un carol in 02-06 Sublingual ity of (NITROSTAT) 22:30: 21:30 , ONCE, 1 [place] sublingual 00 :00 dose, [facility] Medi riky tablet 0.4 02/07/20 Branc h [...] of 350 21:30: 21:30 s, ONCE, 1 [place] BULK-150 00 :00 dose, Tue Medica l [...] 20:30 ONCE, 1 [place] 00 :00 dose, [facility] Medical 02/07/20 Branch at 1630, STAT morpHINE 2019-04 2020- No 4mg 4 mg, Slow Un carol injection 4 0-14 10-14 IV Push, ity of mg 02:15: 01:13 ONCE, 1 [place] 00 :00 dose, [facility] Medical 01/24/20 Branch at 2115, STAT ondansetron 2019-04 2020- No 4mg 4 mg, Slow Univers (ZOFRAN 0-14 10-14 IV Push, ity of (PF)) 02:15: 01:13 ONCE, 1 [place] injection 4 00 :00 dose, Tue Med [...] ity of (PF)) 01:00: 23:47 ONCE, 1 [place] injection 4 00 :00 dose, Tue Med ical mg 01/24/20 Branch at 1999, LORENE morpHINE 2019-04 2020- No 4mg 4 mg, Slow Un carol injection 4 0-14 10-13 IV Push, ity of mg 01:00: 23:47 ONCE, 1 [place] 00 :00 dose, Tue Medical 01/24/20 Branch at 2000, STAT iohexol 2019-04 2020- No 120mL 120 mL, Unive rs (OMNIPAQUE 0-13 10-13 Intravenou it y of 350 23:45: 23:45 s, ONCE, 1 [place] BULK-150 00 :00 dose, [facility] Medica l mL) 01/24/20 Branch injection at 1845, 120 mL Routine zolpidem 2019-04 Yes 10mg Take 10 mg Uni vers (AMBIEN) 10 0-13 by mouth ity of mg tablet 22:12: at [place] [address] bedtime. Medical Branch FLUoxetine 2019-04 Yes 80mg Take 80 mg U nivers (PROZAC) 40 0-13 by mouth ity of mg capsule 22:12: daily. [place] [address] Medical Branch ARIPiprazol 2019-04 Yes 5mg Take [...] tablet by ity o f 00:00: mouth [place] [address] every 6 Medical (six) Branch hours as needed for Pain (scale 4-6). Indication s: acute pain ondansetron 2019- Yes [id number] 8mg Take 2 Univers 4 mg tablet 0-13 tablets by it y of 00:00: mouth [place] [address] every 8 Medical (eight) Branch hours as needed for Nausea and Vomiting (N/V). ondansetron 2020-1 Yes [id number] 8mg Take 2 Univers 4 mg tablet 0-13 tablets by it y of 00:00: mouth [place] 00 every 8 Medical (eight) Branch hours as needed for Nausea and Vomiting (N/V). ondansetron 2020-1 Yes [id number] 8mg Take 2 Univers 4 mg tablet 0-13 tablets by it y of 00:00: mouth [place] 00 every 8 Medical (eight) Branch hours as needed for Nausea and Vomiting (N/V). ondansetron 2020-1 Yes [id number] 8mg Take 2 Univers 4 mg tablet 0-13 tablets by it y of 00:00: mouth [place] 00 every 8 Medical (eight) Branch hours as needed for Nausea and Vomiting (N/V). ondansetron 2020-1 Yes [id number] 8mg Take 2 Univers 4 mg tablet 0-13 tablets by it y of 00:00: mouth [place] 00 every 8 Medical (eight) Branch hours as needed for Nausea and Vomiting (N/V). ondansetron 2020-1 Yes [id number] 8mg Take 2 Univers 4 mg tablet 0-13 tablets by it y of 00:00: mouth [place] 00 every 8 Medical (eight) Branch hours as needed for Nausea and Vomiting (N/V). ondansetron 2020-1 Yes [id number] 8mg Take 2 Univers 4 mg tablet 0-13 tablets by it y of 00:00: mouth [place] 00 every 8 Medical (eight) Branch hours as needed for Nausea and Vomiting (N/V). ondansetron 2020-1 Yes [id number] 8mg Take 2 Univers 4 mg tablet 0-13 tablets by it y of 00:00: mouth [place] 00 every 8 Medical (eight) Branch hours as needed for Nausea and Vomiting (N/V). ondansetron 2020-1 Yes [id number] 8mg Take 2 Univers 4 mg tablet 0-13 tablets by it y of 00:00: mouth [place] 00 every 8 Medical (eight) Branch hours as needed for Nausea and Vomiting (N/V). ondansetron 2020-1 Yes [id number] 8mg Take 2 Univers 4 mg tablet 0-13 tablets by it y of 00:00: mouth [place] 00 every 8 Medical (eight) Branch hours as needed for Nausea and Vomiting (N/V). ondansetron 2020-1 Yes [id number] 8mg Take 2 Univers 4 mg tablet 0-13 tablets by it y of 00:00: mouth [place] 00 every 8 Medical (eight) Branch hours as needed for Nausea and Vomiting (N/V). ciprofloxac 2019-04 Yes [id number] 500mg Take 1 Univers in HCl 500 [...] Indication s: acute pain ondansetron 2019-04 Yes [id number] 8mg Take 2 Univers 4 mg tablet [...] Indication s: acute pain ciprofloxac 2019-04- No [id number] 500mg Take 1 Univers in HCl 500 0-13 10-28 tablet by ity of mg tablet 00:00: 00:00 [place] (two) Medical times Branch daily. dicyclomine 2019- No 20mg 20 mg, Uni vers (BENTYL) 06-02-20 Intramuscu ity of injection 20:45: 20:08 [place], ONCE, [place] 20 mg 00 :00 1 dose, Medical [place] Branch 06/02/19 at 1445, Routine ondansetron 2019- No 4mg 4 mg, Slow Univers (ZOFRAN 06-02-20 IV Push, ity of (PF)) 19:00: 17:54 ONCE, 1 [place] injection 4 00 :00 dose, [facility] Med ical mg 06/02/19 at Branch 1300, LORENE morpHINE 2019- No 4mg 4 mg, Slow Un carol injection 4 06-02-20 IV Push, ity of mg 19:00: 17:54 ONCE, 1 [place] 00 :00 dose, [facility] Medical 06/02/19 at Branch 1300, STAT iohexol 2019- No 120mL 120 mL, Unive rs (OMNIPAQUE 2-02 06-20 Intravenou it y of 350 18:37: 18:35 s, ONCE, 1 [place] BULK-150 00 :00 dose, [facility] Medica l mL) 06/02/19 at Branch injection 1300, 120 mL Routine NaCl 0.9% 2019- No 1000mL at 999 Uni vers (NS) bolus 2-20 02-20 mL/hr, ity of infusion 17:30: 19:11 1,000 mL, [place] 1,000 mL 00 :00 IV Medical Infusion, Branch ONCE, 1 dose, [place] 06/02/19 at 1130, LORENE dicyclomine 0 Yes [id number] 10mg Take 1 Univers (BENTYL) 10 2-20 capsule by it y of mg capsule 00:00: [place] (four) Medical times Branch daily as needed for Abdominal pain. dicyclomine Yes [id number] 10mg Take 1 Univers (BENTYL) 10 2-20 capsule by it y of mg capsule 00:00: [place] (four) Medical times Branch daily as needed for Abdominal pain. dicyclomine 0 2019- No [id number] 10mg Take 1 Univers (BENTYL) 10 2-20 10-13 capsule by i ty of mg capsule 00:00: 00:00 mouth 4 [place] 00 :00 (four) Medical times Branch daily as needed for Abdominal pain. traMADol Yes [id number] 50mg Take 1 Univers (ULTRAM) 50 9-28 [id number] tablet by i ty of mg tablet 00:00: mouth [place] 00 every 8 Medical (eight) Branch hours as needed for Pain (scale 4-6). traMADol 2018-0 Yes [id number] 50mg Take 1 Univers (ULTRAM) 50 9-28 [id number] tablet by i ty of mg tablet 00:00: mouth [place] 00 every 8 Medical (eight) Branch hours as needed for Pain (scale 4-6). traMADol 2020- No [id number] 50mg Take 1 Univers (ULTRAM) 50 9-28 10-13 [id number] tablet by ity of mg tablet 00:00: 00:00 mouth [place] 00 :00 every 8 Medical (eight) Branch hours as needed for Pain (scale 4-6). nebivolol Yes Take by Unive rs HCl 9-26 mouth ity of (BYSTOLIC 20:20: daily. [place] ORAL) Medical Branch zolpidem Yes 10mg Take 10 mg Uni vers (AMBIEN) 10 9-26 by mouth ity of mg tablet 20:20: at [place] [address] bedtime. Medical Branch HYDROcodone Yes 1{tbl} Take [...] mouth ity of tablet 20:20: at bedtime [place] as needed Medical for Branch Itching or Anxiety. nebivolol Yes Take by Unive rs HCl 9-26 mouth ity of (BYSTOLIC 20:20: daily. [place] ORAL) Medical Branch zolpidem Yes 10mg Take 10 mg Uni vers (AMBIEN) 10 9-26 by mouth ity of mg tablet 20:20: at [place] [address] bedtime. Medical Branch HYDROcodone Yes 1{tbl} Take [...] mouth ity of tablet 20:20: at bedtime [place] [address] as needed Medical for Branch Itching or Anxiety. nebivolol Yes Take by Unive rs HCl 01-06 mouth ity of (BYSTOLIC 20:20: daily. [place] ORAL) Medical Branch Abilify Abilify No Abilify [...] MAY MAKE DROWSY Ziac Ziac No Ziac [facility] Vital Signs Vital Name Observation Time Observation Value Comments Source Systolic blood 2022-09-15 17:00:00 107 mm[Hg] Univer sity of [facility] Diastolic blood 2022-09-15 17:00:00 79 mm[Hg] Unive rsity [facility] Heart rate 2022-09-15 17:00:00 86 /min [facility] Respiratory rate 2022-09-15 17:00:00 16 /min [facility] Oxygen saturation in 2022-09-15 17:00:00 100 /min [facility] blood by [facility] Pulse oximetry [place] Body temperature 2022-09-15 13:03:00 36.61 Elodia [facility] Body weight 2022-09-15 13:03:00 79.379 kg [facility] BMI 2022-09-15 13:03:00 32.01 kg/m2 [facility] Systolic blood 2022-07-03 15:56:00 117 mm[Hg] [facility] [...] Height 2020-08-24 00:00:00 62 [in_i] Ting Mauricio pieroical BMI (Body Mass 2020-08-24 00:00:00 32 kg/m2 [facility] Medical Index) BP Systolic 2020-08-24 00:00:00 124 mm[Hg] Ting rosado Body Weight 2020-08-24 00:00:00 175 [lb_av] Ting rosado Heart rate 2020-07-23 19:30:00 75 /min [facility] [place] [facility] Oxygen saturation in 2020-07-23 19:30:00 100 /min University of Arterial blood by [facility] Pulse oximetry Branch Systolic blood 2020-07-23 18:00:00 142 mm[Hg] Univer sity of pressure [place] [facility] Diastolic blood 2020-07-23 18:00:00 97 mm[Hg] Unive rsity of pressure [place] [facility] Respiratory rate 2020-07-23 18:00:00 20 /min Univ ersity of [place] [facility] Body temperature 2020-07-23 16:37:00 37.11 Elodia Univ ersity of [place] [facility] Body height 2020-07-23 16:37:00 157.5 cm [facility] [place] [facility] Body weight 2020-07-23 16:37:00 79.379 kg [facility] [place] [facility] BMI 2020-07-23 16:37:00 32.01 kg/m2 [facility] [place] [facility] Heart rate 2020-07-23 19:30:00 75 /min [facility] [place] [facility] Oxygen saturation in 2020-07-23 19:30:00 100 /min University of Arterial blood by [facility] Pulse oximetry Branch Systolic blood 2020-07-23 18:00:00 142 mm[Hg] Univer sity of pressure [place] [facility] Diastolic blood 2020-07-23 18:00:00 97 mm[Hg] Unive rsity of pressure [place] [facility] Respiratory rate 2020-07-23 18:00:00 20 /min Univ ersity [facility] [place] [facility] Body temperature 2020-07-23 16:37:00 37.11 Elodia Univ ersity [facility] [place] [facility] Body height 2020-07-23 16:37:00 157.5 cm [facility] [place] [facility] Body weight 2020-07-23 16:37:00 79.379 kg [facility] [place] [facility] BMI 2020-07-23 16:37:00 32.01 kg/m2 [facility] [place] [facility] Systolic blood 2020-04-27 23:25:00 112 mm[Hg] Univer sity of pressure [place] [facility] Diastolic blood 2020-04-27 23:25:00 87 mm[Hg] Unive rsity of pressure [place] [facility] Heart rate 2020-04-27 23:25:00 78 /min [facility] [place] [facility] Respiratory rate 2020-04-27 23:25:00 18 /min Univ ersity [facility] [place] [facility] Oxygen saturation in 2020-04-27 23:25:00 99 /min University of Arterial blood by [facility] riky Pulse oximetry Branch Body temperature 2020-04-27 17:24:00 37.06 Elodia Univ ersity of [place] [facility] Body height 2020-04-27 17:24:00 157.5 cm [facility] [place] [facility] Body weight 2020-04-27 17:24:00 77.111 kg [facility] [place] [facility] BMI 2020-04-27 17:24:00 31.09 kg/m2 [facility] [place] [facility] Systolic blood 2020-04-27 23:25:00 112 mm[Hg] Univer sity of pressure [place] [facility] Diastolic blood 2020-04-27 23:25:00 87 mm[Hg] Unive rsity of pressure [place] [facility] Heart rate 2020-04-27 23:25:00 78 /min [facility]i [facility] [place] [facility] Respiratory rate 2020-04-27 23:25:00 18 /min Univ ersity [facility] [place] [facility] Oxygen saturation in 2020-04-27 23:25:00 99 /min University of Arterial blood by [place] [employer] [facility] Pulse oximetry Branch Body temperature 2020-04-27 17:24:00 37.06 Elodia Univ ersity of [place] [facility] Body height 2020-04-27 17:24:00 157.5 cm [facility] [place] [facility] Body weight 2020-04-27 17:24:00 77.111 kg [facility] [place] [facility] BMI 2020-04-27 17:24:00 31.09 kg/m2 [facility] [place] [facility] Systolic blood 2020-02-08 16:45:00 114 mm[Hg] Univer sity of pressure [place] [facility] Diastolic blood 2020-02-08 16:45:00 84 mm[Hg] Unive rsity of pressure [place] [facility] Heart rate 2020-02-08 16:45:00 80 /min [facility] [place] [facility] Body temperature 2020-02-08 16:45:00 36.06 Elodia Univ ersity [facility] [place] [facility] Respiratory rate 2020-02-08 16:45:00 20 /min Univ ersity [facility] [place] [facility] Oxygen saturation in 2020-02-08 16:45:00 96 /min University of Arterial blood by [place] [employer] [facility] Pulse oximetry Branch Body height 2020-02-08 00:37:00 152.4 cm [facility] [place] [facility] Body weight 2020-02-08 00:37:00 78.019 kg [facility] [place] [facility] BMI 2020-02-08 00:37:00 33.59 kg/m2 [facility] [place] [facility] Systolic blood 2020-02-08 16:45:00 114 mm[Hg] Univer sity of pressure [place] [facility] Diastolic blood 2020-02-08 16:45:00 84 mm[Hg] Unive rsity of pressure [place] [facility] Heart rate 2020-02-08 16:45:00 80 /min [facility] [place] [facility] Body temperature 2020-02-08 16:45:00 36.06 Elodia Univ ersity [facility] [place] [facility] Respiratory rate 2020-02-08 16:45:00 20 /min Univ ersity [facility] [place] [facility] Oxygen saturation in 2020-02-08 16:45:00 96 /min University of Arterial blood by [place] [employer] [facility] Pulse oximetry Branch Body height 2020-02-08 [...] 96 /min University of Arterial blood by [place] [employer] [facility]ky Pulse oximetry Branch Respiratory rate 2020-01-25 01:00:00 16 /min Univ ersity [facility] [place] [facility] Body temperature 2020-01-24 22:09:00 37.11 Eloida Univ ers[facility] [place] [facility] Body height 2020-01-24 22:09:00 157.5 cm [facility] [place] [facility] Body weight 2020-01-24 22:09:00 78.336 kg [facility] [place] [facility] BMI 2020-01-24 22:09:00 31.59 kg/m2 [facility] [place] [facility] Systolic blood 2020-01-25 02:00:00 134 mm[Hg] Univer sity of pressure [place] [facility] Diastolic blood 2020-01-25 02:00:00 94 mm[Hg] Unive rsity of pressure [place] [facility] Heart rate 2020-01-25 02:00:00 83 /min [facility]i [facility] [place] [facility] Oxygen saturation in 2020-01-25 02:00:00 96 /min University of Arterial blood by [facility] Pulse oximetry Branch Respiratory rate 2020-01-25 01:00:00 16 /min Univ ersity of [place] [facility] Body temperature 2020-01-24 22:09:00 37.11 Elodia Univ ersity [facility] [place] [facility] Body height 2020-01-24 22:09:00 157.5 cm [facility] [place] [facility] Body weight 2020-01-24 22:09:00 78.336 kg [facility] [place] [facility] BMI 2020-01-24 22:09:00 31.59 kg/m2 [facility] [place] [facility] Systolic blood 2019-06-02 19:00:00 126 mm[Hg] Univer sity of pressure [place] [facility] Diastolic blood 2019-06-02 19:00:00 81 mm[Hg] Unive rsity of pressure [place] [facility] Heart rate 2019-06-02 19:00:00 86 /min [facility] [place] [facility] Respiratory rate 2019-06-02 19:00:00 17 /min Univ ersity [facility] [place] [facility] Oxygen saturation in 2019-06-02 19:00:00 96 /min University of Arterial blood by [facility] riky Pulse oximetry Branch Body temperature 2019-06-02 17:14:00 36.61 Elodia Univ ersity [facility] [place] [facility] Body height 2019-06-02 17:14:00 157.5 cm [facility] [place] [facility] Body weight 2019-06-02 17:14:00 74.844 kg [facility] BMI 2019-06-02 17:14:00 30.18 kg/m2 [facility] Systolic blood 2019-06-02 19:00:00 126 mm[Hg] Univer sity of pressure [facility] Diastolic blood 2019-06-02 19:00:00 81 mm[Hg] Unive rsity of [facility] Heart rate 2019-06-02 19:00:00 86 /min [facility] Respiratory rate 2019-06-02 19:00:00 17 /min [facility] Oxygen saturation in 2019-06-02 19:00:00 96 /min [facility] Arterial blood by [facility] Pulse oximetry [place] Body temperature 2019-06-02 17:14:00 36.61 Elodia [facility] Body height 2019-06-02 17:14:00 157.5 cm [facility] Body weight 2019-06-02 17:14:00 74.844 kg [facility] BMI 2019-06-02 17:14:00 30.18 kg/m2 [facility] Heart rate 2022-09-30 13:00:00 69 /min [facility] Systolic blood 2022-09-30 12:57:56 116 mm[Hg] [facility] pressure Diastolic blood 2022-09-30 12:57:56 80 mm[Hg] [facility] pressure Body temperature 2022-09-30 12:57:56 36.11 Elodia [facility] Respiratory rate 2022-09-30 12:57:56 16 /min [facility] Oxygen saturation in 2022-09-30 12:57:56 98 /min [facility] Arterial blood by Pulse oximetry Body weight 2022-09-30 10:31:00 83.87 kg [facility] BMI 2022-09-30 10:31:00 33.82 kg/m2 [facility] Body height 2022-09-27 01:09:00 157.5 cm [facility] Systolic blood 2021-10-15 17:34:00 121 mm[Hg] [facility] Diastolic blood 2021-10-15 17:34:00 69 mm[Hg] [facility] Heart rate 2021-10-15 17:34:00 68 /min [facility] Respiratory rate 2021-10-15 17:34:00 18 /min [facility] Oxygen saturation in 2021-10-15 17:34:00 100 /min [facility] Arterial blood by Medical Ce nter Pulse oximetry Body temperature 2021-10-15 11:42:00 36.83 Elodia [facility] Body height 2021-10-15 11:42:00 157.5 cm [facility] Body weight 2021-10-15 11:42:00 83.915 kg [facility] BMI 2021-10-15 11:42:00 33.84 kg/m2 [facility] Procedures Procedure Date / Time Performing Clinician Source Performed TTE COMPLETE, WO 2022-09-29 22:47:00 [facility] CONTRAST, W DOPPLER ([id number]) IR LUMBAR PUNCTURE 2022-09-29 16:28:05 [facility] Branden CSF CELL COUNT WITH 2022-09-29 16:17:00 [facility] DIFFERENTIAL Branden GLUCOSE LEVEL, CSF 2022-09-29 16:17:00 [facility] Branden IGG SYNTHESIS RATE STUDY 2022-09-29 16:17:00 [facility] Branden OLIGOCLONAL BANDING, CSF 2022-09-29 16:17:00 [facility] US CAROTID DUPLEX 2022-09-29 14:30:00 [facility] BILATERAL BASIC METABOLIC PANEL 2022-09-29 10:27:00 [facility] MAGNESIUM LEVEL 2022-09-29 10:27:00 [facility] PHOSPHORUS LEVEL 2022-09-29 10:27:00 [facility] ESTIMATED GFR 2022-09-29 10:27:00 [facility] HCG QUALITATIVE, URINE 2022-09-28 22:10:00 [facility] SCREEN TROPONIN T 2022-09-28 10:46:00 [facility] LIPID PANEL 2022-09-28 10:46:00 [facility] ECG ED PRELIMINARY 2022-09-28 00:56:19 Ollie Tobar [facility] INTERPRETATION URINE DRUGS OF ABUSE 2022-09-27 23:00:00 [facility] SCREEN LACTIC ACID LEVEL 2022-09-27 23:00:00 [facility] HEMOGLOBIN A1C 2022-09-27 23:00:00 [facility] THYROID STIMULATING 2022-09-27 23:00:00 [facility] HORMONE T4, FREE 2022-09-27 23:00:00 [facility] C-REACTIVE PROTEIN 2022-09-27 23:00:00 [facility] TROPONIN T 2022-09-27 23:00:00 [facility] TROPONIN T 2022-09-27 19:34:00 [facility] CBC WITH PLATELET AND 2022-09-27 11:06:00 ToñoDi [facility] DIFFERENTIAL [facility] COMPREHENSIVE METABOLIC 2022-09-27 11:06:00 [facility] PANEL [place] MAGNESIUM LEVEL 2022-09-27 11:06:00 Di Lundberg Ho spital [facility] PHOSPHORUS LEVEL 2022-09-27 11:06:00 Di Lundberg H ospital [facility] SEDIMENTATION RATE 2022-09-27 11:06:00 [facility] Foster ESTIMATED GFR 2022-09-27 11:06:00 Di Lundberg Ho spital [facility] MRI BRAIN WO CONTRAST 2022-09-27 05:19:00 Di Lundberg [facility] MRA HEAD WO CONTRAST 2022-09-27 05:19:00 [facility] BRAIN VENOGRAM 2022-09-27 05:00:00 Di Lundberg [facility] Foster CBC WITH PLATELET AND 2022-09-27 02:07:00 [facility] DIFFERENTIAL PROTHROMBIN TIME WITH INR 2022-09-27 02:07:00 [facility] PARTIAL THROMBOPLASTIN 2022-09-27 02:07:00 [facility] TIME (PTT) C-REACTIVE PROTEIN 2022-09-27 02:07:00 [facility] SEDIMENTATION RATE 2022-09-27 02:07:00 [facility] COMPREHENSIVE METABOLIC 2022-09-27 02:07:00 [facility] PANEL MAGNESIUM LEVEL 2022-09-27 02:07:00 [facility] PHOSPHORUS LEVEL 2022-09-27 02:07:00 [facility] HCG QUALITATIVE, SERUM 2022-09-27 02:07:00 [facility] SCREEN ESTIMATED GFR 2022-09-27 02:07:00 [facility] ECG 12-LEAD 2022-09-27 01:14:[address] [facility] [address] ANGIOGRAM 2022-09-15 14:32:00 Violetta [facility] ABDOMEN/PELVIS Medical Branch LIPASE 2022-09-15 13:30:00 [facility] 2022-09-15 13:30:00 Caitie Shipley [facility] ([id number]) (ALB,T.PRO,BILI Medical Branch T,BU/BC,ALT,AST,ALK PHOS) BASIC METABOLIC PANEL 2022-09-15 13:30:00 Caitie Shipley [facility] (NA, K, CL, CO2, GLUCOSE, Medica l Branch BUN, CREATININE, CA) CBC WITH DIFF 2022-09-15 13:30:00 [facility] URINALYSIS 2022-09-15 13:30:00 Caitie Shipley [place] [facility] POCT TEST 2022-09-15 13:30:00 Caitie Shipley [facility] CONSENT/REFUSAL FOR 2022-09-15 12:57:18 Doctor Lee [facility] DIAGNOSIS AND TREATMENT [place] [facility] [place] CT BRAIN WITHOUT IV 2021-10-15 12:42:00 Elise Danielson [facility] PHYSICIAN ORDERS 2021-08-13 05:01:00 [facility] Medical [place] ASSIGNMENT OF BENEFITS 2021-07-16 14:15:53 [facility] [place] [facility] ASSIGNMENT OF BENEFITS 2021-06-18 14:59:31 Doctor Unassstacy, [facility] Medical [place] ULTRASOUND OF PELVIS 2020-08-24 00:00:00 [facility] US OVARY TORSION 2020-07-23 19:10:59 [facility]BDOMEN PELVIS W 2020-07-23 17:15:00 Megan Bean [facility] CONTRAST Medical Branch HEPATIC FUNCTION PANEL 2020-07-23 16:49:00 Megan Bean [facility] ([id number]) (ALB,T.PRO,BILI Medical Branch T,BU/BC,ALT,AST,ALK PHOS) BASIC METABOLIC PANEL 2020-07-23 16:49:00 BeanMegan [facility] (NA, K, CL, CO2, GLUCOSE, Medica l Branch BUN, CREATININE, CA) CBC WITH DIFF 2020-07-23 16:49:00 Megan Bean [facility] URINALYSIS 2020-07-23 16:49:00 Megan Bean [facility] POCT TEST 2020-07-23 16:48:00 Megan Bean [facility] NOTICE OF PRIVACY 2020-07-23 16:32:51 Doctor Lee [facility] PRACTICES [place] [facility] [place] CONSENT/REFUSAL FOR 2020-07-23 16:32:01 Doctor Jesus [facility] DIAGNOSIS AND TREATMENT [place] [facility] [place] CT HEAD WO CONTRAST 2020-04-27 19:40:14 Ann Cardozo [facility] TROPONIN I 2020-04-27 18:41:00 Ann Cardozo [facility] BASIC METABOLIC PANEL 2020-04-27 18:41:00 Ann Cardozo [facility] (NA, K, CL, CO2, GLUCOSE, Medica l Branch BUN, CREATININE, CA) CBC WITH DIFF 2020-04-27 18:41:00 Ann Cardozo [facility] HB ECG ROUTINE & RHYTHM 2020-04-27 17:58:58 Ann Cardozo [facility] NOTICE OF PRIVACY 2020-04-27 17:21:19 Doctor Unassigned, [facility] PRACTICES [place] [facility] [place] CONSENT/REFUSAL FOR 2020-04-27 17:21:03 Doctor Unassstacy, [facility] DIAGNOSIS AND TREATMENT [place] [facility] TROPONIN I 2020-02-08 10:03:00 [facility] BAS[facility]OLIC PANEL 2020-02-08 10:03:00 Ruby Ovallesherine [facility] (NA, K, CL, CO2, GLUCOSE, Medica l Branch BUN, CREATININE, CA) CBC WITH DIFF 2020-02-08 10:03:00 [facility] TROPONIN I 2020-02-08 04:27:00 [facility] COVID-19 (ID NOW RAPID 2020-02-07 22:40:00 Angelo Robles [facility] TESTING) Medical Branch MAGNESIUM 2020-02-07 22:22:00 [facility] TROPONIN I 2020-02-07 22:22:00 Angelo Robles [facility] THYROID STIMULATING 2020-02-07 22:22:00 Sharon Ovalles [facility] HORMONE Medical Branch LIPID PANEL ([id number])(TOTAL 2020-02-07 22:22:00 Sharon Ovalles [facility] CHOLESTEROL, Medical Branch TRIGLYCERIDES, HDL) CT ABDOMEN PELVIS W 2020-02-07 21:28:58 Angelo Robles [facility] CONTRAST [facility] CT CHEST PULMONARY 2020-02-07 21:28:58 Angelo Robles [facility] ANGIOGRAM [facility] XR CHEST 1 VW 2020-02-07 20:36:36 Angelo Robles [facility] POCT TEST 2020-02-07 20:03:00 Angelo Robles [facility] URINALYSIS 2020-02-07 20:02:00 Angelo Robles [facility] LIPASE 2020-02-07 19:58:00 Travis Angelo [facility] TROPONIN I 2020-02-07 19:58:00 Travis Angelo [facility] HEPATIC FUNCTION PANEL 2020-02-07 19:58:00 Angelo Robles [facility] ([id number]) (ALB,T.PRO,BILI Medical [place] T,BU/BC,ALT,AST,ALK PHOS) BASIC METABOLIC PANEL 2020-02-07 19:58:00 Angelo Robles [facility] [facility] (NA, K, CL, CO2, GLUCOSE, Medica l Branch BUN, CREATININE, CA) CBC WITH DIFF 2020-02-07 19:58:00 Angelo Robles [facility] PROTHROMBIN TIME / INR 2020-02-07 19:58:00 Angelo Robles [facility] ACTIVATED PARTIAL 2020-02-07 19:58:00 Angelo Robles [facility] THRMPLAS GLORY [facility] N-TERMINAL PRO-BNP 2020-02-07 19:58:00 Angelo Robles [facility] HB ECG ROUTINE & RHYTHM 2020-02-07 19:51:07 Angelo Robles [facility] [place] CONSENT/REFUSAL FOR 2020-02-07 19:42:57 Doctor Unassigned, [facility] DIAGNOSIS AND TREATMENT [place] [facility] CT ABDOMEN PELVIS W 2020-01-24 23:32:59 Mark Armijo [facility] POCT TEST 2020-01-24 23:22:00 Mark Armijo [facility] LIPASE 2020-01-24 22:41:00 Mark Armijo [facility] COMP. METABOLIC PANEL 2020-01-24 22:41:00 Mark Armijo [facility] ([id number]) Medical Branch CBC WITH DIFF 2020-01-24 22:41:00 Mark Armijo [facility] URINALYSIS 2020-01-24 22:41:00 Mark Armijo [facility] NOTICE OF PRIVACY 2020-01-24 22:03:28 Doctor [place], [facility] PRACTICES [place] [facility] [place] CONSENT/REFUSAL FOR 2020-01-24 22:03:15 Doctor UnassAna Rosa kumar [facility] DIAGNOSIS AND TREATMENT [place] [facility] CT ABDOMEN PELVIS W 2019-06-02 18:46:40 Candido Ramirez [facility] CONTRAST [facility] POCT TEST 2019-06-02 17:48:00 Candido Ramirez [facility] LIPASE 2019-06-02 17:47:00 Candido Ramirez [facility] COMP. METABOLIC PANEL 2019-06-02 17:47:00 Candido Ramirez Univlukasz [facility] ([id number]) [facility] CBC WITH DIFFERENTIAL 2019-06-02 17:47:00 Candido Ramirez Univlukasz [facility] URINALYSIS 2019-06-02 17:47:00 Candido Ramirez [facility] CONSENT/REFUSAL FOR 2019-06-02 17:08:56 Doctor Ana Rosa Lee [facility] DIAGNOSIS AND TREATMENT [place] [facility] Gi Tract Capsule 2017-11-10 00:00:00 [facility] Tubal Ligation [facility] Caesarean Section [facility] Medical Plan of Care Planned Activity Planned Date Details Comments Source Future Scheduled 2023-02-08 COVID-19 VACCINE (#1) [facility] Test 02:36:30 [code = COVID-19 VACCINE Hos pital (#1)] Future Scheduled 2023-02-08 Hepatitis C screening [facility] Test 02:36:30 (procedure) [code = Hospital 720123978] Future Scheduled 2023-02-08 Screening for malignant [facility] Test 02:36:30 neoplasm of cervix Hospital (procedure) [code = 350853778] Future Scheduled 2023-02-08 BREAST CANCER SCREENING [facility] Test 02:36:30 [code = BREAST CANCER Hospit al SCREENING] Future Scheduled 2023-02-08 INFLUENZA VACCINE (#1) M ethodist Test 02:36:30 [code = INFLUENZA VACCINE Ho spital (#1)] Future Scheduled 2022-12-19 COVID-19 VACCINE (#1) [facility] Test 00:48:53 [code = COVID-19 VACCINE Hos pital (#1)] Future Scheduled 2022-12-19 Hepatitis C screening [facility] Test 00:48:53 (procedure) [code = Hospital 416862855] Future Scheduled 2022-12-19 Screening for malignant [facility] Test 00:48:53 neoplasm of cervix Hospital (procedure) [code = 824002201] Future Scheduled 2022-12-19 BREAST CANCER SCREENING [facility] Test 00:48:53 [code = BREAST CANCER Hospit al SCREENING] Future Scheduled 2022-12-19 INFLUENZA VACCINE (#1) M ethodist Test 00:48:53 [code = INFLUENZA VACCINE Ho spital (#1)] Future Scheduled 2022-12-12 Influenza Vaccine (#1) [facility] Test 00:[facility]00 [code = Influenza Vaccine Me dical Center (#1)] Future Scheduled 2022-12-12 Influenza Vaccine (#1[facility] Test 00:00:00 [code = Influenza Vaccine Me dical Center (#1)] Future Scheduled 2022-12-12 INFLUENZA VACCINE (Season [...] cervix Medical C enter (procedure) [code = 509249566] Future Scheduled 2001 Screening for malignant [facility] Test 00:00:00 neoplasm of cervix Medical C enter (procedure) [code = 885855747] Future Scheduled 2001 Screening for malignant [facility] Test 00:00:00 neoplasm of cervix Medical C enter (procedure) [code = 169469367] Future Scheduled 2001 Screening for malignant [facility] Test 00:00:00 neoplasm of cervix Medical C enter (procedure) [code = 735086403] Future Scheduled 2001 Screening for malignant [facility] Test 00:00:00 neoplasm of cervix Medical C enter (procedure) [code = 870660869] Future Scheduled 2001 Screening for malignant [facility] Test 00:00:00 neoplasm of cervix Medical C enter (procedure) [code = 336455157] Future Scheduled 2001 Screening for malignant [facility] Test 00:00:00 neoplasm of cervix Medical C enter (procedure) [code = 450292676] Future Scheduled 2001 Screening for malignant [facility] Test 00:00:00 neoplasm of cervix Medical C enter (procedure) [code = 271946961] Future Scheduled 2000 Lipid panel (procedure) [facility] Test 00:00:00 [code = 48646499] Medical Ce nter Future Scheduled 2000 Lipid panel (procedure) [facility] Test 00:00:00 [code = 22922004] Medical Ce nter Future Scheduled 2000 Lipid panel (procedure) [facility] Test 00:00:00 [code = 77438275] Medical Ce nter Future Scheduled 2000 Lipid panel (procedure) [facility] Test 00:00:00 [code = 52544533] Medical Ce nter Future Scheduled 2000 Lipid panel (procedure) [facility] Test 00:00:00 [code = 53967648] Medical Ce nter Future Scheduled 2000 Lipid panel (procedure) [facility] Test 00:00:00 [code = 30223583] Medical Ce nter Future Scheduled 2000 Lipid panel (procedure) [facility] Test 00:00:00 [code = 24154211] Medical Ce nter Future Scheduled 2000 Lipid panel (procedure) [facility] Test 00:00:00 [code = 76137989] Medical Ce nter Future Scheduled 1999-10-09 DTAP/TDAP/TD [...] screening Medical Cent er (procedure) [code = 707193358] Future Scheduled 1995-10-[address] [facility] Test 00:00:00 virus screening Medical Cent er (procedure) [code = 894080564] Future Scheduled 1981-04-09 COVID-19 VACCINE (#1[facility] 00:00:00 [code = COVID-19 VACCINE [facility] (#1)] Future Scheduled 1981-04-09 COVID-19 VACCINE (#1) [...] Facility Department ID 2022-10-06 Outpatient [facility] [id number] [place] 15:21:30 [id number] [facility] 2022-08-16 Outpatient [facility] [id number] [place] 15:19:06 [id number] [facility] 2022-07-03 Outpatient [facility] [id number] [place] 10:37:25 [id number] [facility] 2022-07-02 Outpatient [facility] [id number] [place] 15:48:54 [id number] [facility] 2022-04-02 Outpatient [facility] [id number] [place] 13:15:41 [id number] [facility] 2021-02-10 Emergency [facility] [id number] Univers 12:15:04 [facility] 2021-02-09 Emergency [facility] [id number] Univers 17:33:49 ity [facility] 2021-02-09 Emergency [facility] [id number] Univers 01:23:23 ity [facility] 2021-02-08 Emergency [facility] [id number] Univers 22:46:53 ity [facility] 2022-10-03 2022-10-03 Patient Udoet, 1.2.840.1 [id number] Methodi 00:00:00 00:00:00 Outreach Joy 32222.1.[address] 3.430.2.7 Hospit a .3.064361 l .8 2022-10-03 2022-10-03 Patient Jung, 1.2.840.1 [id number] Methodi 00:00:00 00:00:00 Outreach Linnette 76722.1.[address] 3.430.2.7 Hospit a .3.160278 l .8 2022-10-03 2022-10-03 Patient Coretta, 1.2.840.1 [id number] Methodi 00:00:00 00:00:00 Outreach Joy 36349.1.[address] 3.430.2.7 Hospit a .3.370002 l .8 2022-10-03 2022-10-03 Patient Jung, 1.2.840.1 [id number] Methodi 00:00:00 00:00:00 Outreach Linnette 87551.1.[address] 3.430.2.7 Hospit a .3.216142 l .8 2022-09-26 2022-09-30 [facility] Ollie Tobar 1.2.840.1 10 [id number] Methodi 20:14:00 13:32:00 Encounter Di Lundberg 15333.1.[address] Kamronju Danielitya 3.430.2.7 Hospita .3.661269 l .8 2022-09-26 2022-09-30 [facility] Ollie Tobar 1.2.840.1 10 [id number] Methodi 20:14:00 13:32:00 Encounter Di Lundberg 54060.1.1 827 Eric Tavares 3.430.2.7 Hospita .3.206204 l .8 2022-09-20 2022-09-20 Outpatient _[facility]_ PRIV PRIV 506 6270-20 [facility] 00:00:00 00:00:00 Ludwin [id number] Medic al 2022-09-17 2022-09-17 Patient Doctor LUÍS 1.2.840.114 [id number] Univers 00:00:00 00:00:00 Secure Msg Unassigned, SHARON 350.1.13.10 ity [facility] 4.2.7.2.686 [facility] [id number] [facility] 019 Branch 2022-09-15 2022-09-15 Emergency X [facility] ERT [id number] Univers 08:09:00 13:17:00 CYNISE ity of [facility] 2022-09-15 2022-09-15 Emergency [facility] 1.2.441.[id number] [facility] 08:09:00 13:17:00 Caitie HERNANDEZ 350.1.13.10 i [facility] 4.2.7.2.686 [facility] [id number] [place] 588134 [place] 2022-08-25 2022-08-25 Outpatient [facility] [id number] [place] 13:45:00 13:45:00 ANGEL Key [facility] 2022-07-03 2022-07-03 Office [facility] 6400 1.2.840.114 [id number] [place] 10:45:00 10:45:00 Visit ANGEL MOSQUEDA 350.1.13.58 [facility] 9.2.7.2.686 [id number] 1 2022-05-21 2022-05-21 Outpatient [facility] [id number] [place] 09:30:00 09:30:00 ANGEL Key [facility] 2021-10-15 2021-10-15 Emergency ER LALO DANIELSON Emergency [id number] [facility] 14:24:00 17:37:00 [place] 2021-10-15 2021-10-[address] [facility] [id number] 14:24:00 17:37:00 [facility] 2021-10-15 2021-10-15 Travel [facility] [id number] [facility] 00:00:[facility] 00:00:00 [facility] 2021-08-13 2021-08-13 Formula Maker Luis, Adc Lab Main [facility] 1.2.8 40.114 [id number] Univers 12:15:00 12:30:00 Visit Ariel Britt 350.1.13.1 0 ity [facility] 4.[place] [phone] [place] dic[address] 2021-08-13 2021-08-13 [facility]patient [facility] [id number] [id number] Univers 12:15:00 12:15:00 ARIEL feliciano [facility] 2021-08-13 2021-08-13 Orders Doctor STALEY 1.2.840.114 [id number] Univers 00:00:00 00:00:00 Only Unassigned, SHARON 350.1.13.10 ity of [place] [facility] 4.2.7.2.686 Craig as [phone] [address] 2021-07-16 2021-07-16 Formula Maker Luis, Adc Lab Main [facility] 1.2.8 40.114 [id number] Univers 09:30:00 09:45:00 Visit Paul Sams 350.1.13.10 ity of [place] [id number] La dical [address] 2021-07-16 2021-07-16 Outpatient [facility] [id number] [id number] Univers 09:30:00 09:30:00 PAUL feliciano [facility] 2021-07-16 2021-07-16 Orders Doctor LUÍS Del Cid2.840.114 [id number] Univers 00:00:00 00:00:00 Only Unassigned, SHARON 350.1.13.10 ity of [place] [facility] 4.2.7.2.686 Craig as [phone] [address] 2021-06-18 2021-06-18 Outpatient [facility] [id number] Univers 08:45:00 10:27:48 PAUL itgraciela [facility] 2021-06-18 2021-06-18 Formula Maker Luis, Adc Lab Main [facility] 1.2.8 40.114 [id number] Univers 08:45:00 09:00:00 Visit Paul Sams 350.1.13.10 ity of [place] [id number] [place] dic[address] 2021-06-18 2021-06-18 Orders Doctor LUÍS 1.2.840.114 [id number] Univers 00:00:00 00:00:00 Only Unassigned, SHARON 350.1.13.10 ity of [place] [facility] 4.2.7.2.686 Craig as [phone] [address] 2020-08-24 2020-08-24 Outpatient KAREN_ PRIV PRIV 506 6270-20 [facility] 02:56:00 02:56:00 Ludwin [id number] Medic al 2020-08-24 2020-08-24 Outpatient TAYLOR Pierce PRIV [id number] 1-2 00:00:00 00:00:00 Alex [id number] Jay [id number] 2020-08-24 2020-08-24 Alex PRIV GA - [facility] [id number] [facility] 00:00:00 00:00:00 [facility] - Medic KAREN Colmenares_ : [address], [address], [place] [address] , Ph. 2020-07-23 2020-07-23 Emergency [facility] 1.2.840.114 [id number] 11:40:00 15:16:00 Megan Hernandez 350.1.13.10 [place] 4.2.7.2.686 [place] [id number] 084 2020-07-23 2020-07-23 Emergency Bean, [facility] 1.2.840.[id number] [facility] 11:40:00 15:16:00 Megan Lewiston 350.1.13.10 i ty of [place] 4.2.7.2.686 [facility] [phone] [address] 2020-04-27 2020-04-27 Emergency Levi, [facility] 1.2.840.114 [id number] 11:25:00 18:21:00 Ann Randhawa Edward 350.1.13.10 [place] 4.2.7.2.686 [place]ah [id number] [facility] 2020-04-27 2020-04-27 Emergency Levi, [facility] 1.2.840.[id number] [facility] 11:25:00 18:21:00 Ann Randhawa Edward 350.1.13.10 ity of [place] 4.2.7.2.686 [facility] [phone] [place] [address] Branch 2020-02-07 2020-02-08 Emergency RoblesAngelo [facility] 1.2.840. 114 [id number] 14:46:00 14:26:00 Naun Bush 350.1.13.10 [place] 4.2.7.2.686 Ramah [id number] [facility] 2020-02-07 2020-02-08 Emergency Travis Angelo [facility] 1.2.840. [id number] [facility] 14:46:00 14:26:00 Naun Bush 350.1.13.10 ity of [place] 4.2.7.2.686 [facility] [phone] [place] [address] Branch 2020-01-24 2020-01-24 Emergency Bubba, [facility] 1.2.544.272 [id number] 17:12:00 21:15:00 Mark Hernandez 350.1.13.10 [place] 4.2.7.2.686 [place]ah [id number] [facility] 2020-01-24 2020-01-24 Emergency [facility] 1.2.605.939 [id number] Univers 17:12:00 21:15:00 Mark S Davison 350.1.13.10 i ty of [place] 4.2.7.2.686 [facility] [id number] [address] 2020-01-24 2020-01-24 Orders Doctor LUÍS 1.2.840.114 [id number] 00:00:00 00:00:00 Only Unassigned, SHARON 350.1.13.10 [place] [facility] 4.2.7.2.686 [id number] 009 2020-01-24 2020-01-24 Orders Doctor LUÍS 1.2.840.114 [id number] Univers 00:00:00 00:00:00 Only Unassigned, SHARON 350.1.13.10 ity [facility] 4.2.7.2.686 [facility] [phone] [address] 2019-06-02 2019-06-02 Emergency [facility] 1.2.840.114 [id number] 11:18:34 14:43:00 Candido B Davison 350.1.13.[address] [place] [address] [place] [address] [id number] [facility] 2019-06-02 2019-06-02 Emergency [facility] 1.2.840.114 [id number] Univers 11:18:34 14:43:00 Candido B Davison 350.1.13.10 i ty of [place] 4.2.7.[address] [place] [address] [phone] 2019-06-02 2019-06-02 Emergency X [facility] ERT [id number] Univers 11:18:34 14:43:00 CANDIDO ity of [facility] Results Test Description Test Time Test Comments Results Result Comments Source ECG 12 lead 2022-09-28 23:03:06 Test Item Value Reference Range Interpretation Comme nts Ventricular rate (test code = 253) 78 Atrial rate (test code = 255) 78 SD interval (test code = 266) 118 QRSD [...] Normal sinus rhythm-Normal ECG-No previous ECGs available- [facility] 12 [id number] 23:03:06 Test Item Value Reference Range Interpretation Comments Ventricular rate (test 78 code = 253) Atrial rate (test code = 78 255) SD interval (test code = 118 266) QRSD interval (test code 76 = 260) QT interval (test code = 382 264) QTC interval (test code 435 = 265) P axis 1 (test code = 70 267) QRS axis 1 (test code = 71 268) T wave axis (test code = 65 270) EKG impression (test Normal sinus code = 273) rhythm-Normal ECG-No previous ECGs available-Electronica lly Signed By Luís North MD ([id number]) on 09/28/2022 6:01:55 PM [facility] METABOLIC PANEL (NA, K, CL, CO2, GLUCOSE, BUN, CREATININE, CA)2022-09-15 14:12:52 Test Item Value Reference Range Interpretation Comments NA (test code = 140 mmol/L 135-145 6645672572) K (test code = 4.2 mmol/L 3.5-5.0 8539658584) CL (test code = 104 mmol/L 98-108 5988580962) CO2 TOTAL (test code = 21 mmol/L 23-31 L 6983037490) AGAP (test code = 15 2-16 3695042545) BUN (test code = 11 mg/dL 7-23 3049974099) GLUCOSE (test code = 125 mg/dL 70-110 H 4382454486) CREATININE (test code = 0.81 mg/dL 0.50-1.04 5533203995) CALCIUM (test code = 10.4 mg/dL 8.6-10.6 8665533537) eGFR (test code = 77.9 mL/min/1.73m2 4108848980) JOSH (test code = JOSH) Association of [...] tests). Lab Interpretation Abnormal (test code = 13362-0) [facility]86210[facility] (ALB,T.PRO,BILI T,BU/BC,ALT,AST,ALK PHOS)2022-09-15 14:12:52 Test Item Value Reference Range Interpretation Comments TOTAL BILI (test code = 0365494255) 0.5 mg/dL 0.1-1.1 BILI UNCON (test code = 0997336088) 0.3 mg/dL 0.1-1.1 BILI CONJ (test code = 6846828001) 0.0 mg/dL 0.0-0.3 T PROTEIN (test code = 2029119331) 7.7 g/dL 6.3-8.2 ALBUMIN (test code = 1344366800) 4.9 g/dL 3.5-5.0 ALK PHOS (test code = 2274106435) 100 U/L 34-122 ALTv (test code = 1742-6) 29 U/L 5-35 AST(SGOT) (test code = 0726335823) 28 U/L 13-40 Lab Interpretation (test code = Normal 10164-8) [facility] 14:12:52 Test Item Value Reference Range Interpretation Comments LIPASE (test code = 9144830578) 137 U/L 0-220 Lab Interpretation (test code = Normal 33331-8) [facility] WITH [id number] 13:49:51 Test Item Value Reference Range Interpretation Comments WBC (test code = 10.62 See_Comment [Automated 5190-2) message] The sy stem which generated this [...] RDW-SD (test code = 43.9 fL 39.0-49.9 87810-1) RDW-CV (test code = 13.9 % 12.0-15.5 788-0) PLT (test code = 308 See_Comment [Automated 777-3) message] The sy stem which generated this result transmitted reference range : 166 - 358 10*3/ ?L. The reference r susan was not used to interpret this result as normal/abnormal . MPV (test code = 11.2 fL 9.5-12.9 48375-3) NRBC/100 WBC (test 0.0 See_Comment [Automat ed code = 5859010506) message] The system which generated this result transmitted reference range : 0.0 - 10.0 /100 WBCs. The refer ence range was not u sed to interpret th is result as normal/abnormal . NRBC x10^3 (test code See_Comment [Auto mated = 8877710439) message] The s ystem which generated this result transmitted reference range : 10*3/?L. The reference range was not used to interpret this result as normal/abnormal . GRAN MAT (NEUT) % 71.0 % (test code = 770-8) IMM GRAN % (test code 0.40 % = 8505443145) LYMPH % (test code = 21.0 % 736-9) MONO % (test code = 5.8 % 5905-5) EOS % (test code = 1.3 % 713-8) BASO % (test code = 0.5 % 706-2) GRAN MAT x10^3(ANC) 7.54 10*3/uL 1.88-7.09 H (test code = 3212455359) IMM GRAN x10^3 (test 0.04 10*3/uL 0.00-0.06 code = 0628659241) LYMPH x10^3 (test code 2.23 10*3/uL 1.32-3.29 = 731-0) MONO x10^3 (test code 0.62 10*3/uL 0.33-0.92 = 742-7) EOS x10^3 (test code = 0.14 10*3/uL 0.03-0.39 711-2) BASO x10^3 (test code 0.05 10*3/uL 0.01-0.07 = 704-7) Lab Interpretation Abnormal (test code = 85954-3) [facility] [id number] 13:30:00 Test Item Value Reference Range Interpretation Comments POCT PREG (test code = 1605) Negative On board controls acceptable with C Yes Line (test code = 3574) POCT PREG LOT # (test code = 3575) [id number] POCT PREG TEST DATE (test 58808674 code = 3576) Lab Interpretation (test code = Normal 63069-6) [facility], BRAIN, WITHOUT [id number] 12:56:00 Unlisted Reason for Exam - Click Yes and Enter Reason Below->No [facility] 1980 Sex: FFINAL REPORT CT Head [...] MDReport Verified Date/Time: 10/15/2021 12:56:49 US OVARY [id number] 19:26:25 Low suspicion for ovarian torsion. Small [...] uterine fibroid versus foci of endometrial andsubendometrial microcalcifications.[facility] Center[facility] ABDOMEN PELVIS W [id number] 17:59:04 Normal appendix. No radiographic findings to [...] PELVISLiver: Hepatic dome is not fully within xckyz-jo-arwi. Mild focal fatty infiltration at the falciform [...] PELVISLiver: Hepatic dome is not fully within miuyn-hb-iqwa. Mild focal fattyinfiltration at the falciform ligament. [...] to explain patient's pain in the right lowerquadrant.[facility] (NA, K, CL, CO2, GLUCOSE, BUN, CREATININE, CA)2020-07-23 17:09:38 Test Item Value Reference Range Interpretation Comments NA (test code = 139 mmol/L 135-145 1619736648) K (test code = 3.9 mmol/L 3.5-5.0 4171932504) CL (test code = 102 mmol/L 98-108 0674688431) CO2 TOTAL (test code 29 mmol/L 23-31 = 1778214735) AGAP (test code = 2-16 3290040784) BUN (test code = 13 mg/dL 7-23 4507695073) GLUCOSE (test code = 98 mg/dL 70-110 2640370324) CREATININE (test code 0.76 mg/dL 0.50-1.04 = 7094557515) CALCIUM (test code = 9.5 mg/dL 8.6-10.6 7794727068) eGFR (test code = mL/min/1.73m2 9965565086) JOSH (test code = JOSH) Association of [...] or urine or abnormalities in imaging tests). [facility] (ALB, T.PRO, BILI T, BU/BC, ALT, AST, ALK PHOS)2020-07-23 17:09:38 Test Item Value Reference Range Interpretation Comments TOTAL BILI (test code = 0505145977) 0.4 mg/dL 0.1-1.1 BILI UNCON (test code = 0955247162) 0.2 mg/dL 0.1-1.1 BILI CONJ (test code = 5916261411) 0.0 mg/dL 0.0-0.3 T PROTEIN (test code = 4289822885) 6.9 g/dL 6.3-8.2 ALBUMIN (test code = 3402002068) 4.3 g/dL 3.5-5.0 ALK PHOS (test code = 4238294293) 113 U/L 34-122 ALTv (test code = 1742-6) 13 U/L 5-35 AST(SGOT) (test code = 4145873060) 29 U/L 13-40 Lab Interpretation (test code = Normal 43103-6) [facility] CenterUrinalysis2021-04-12 17:03:52 Test Item Value Reference Range Interpretation Comments APPEARANCE (test code = Clear Clear 1422912155) COLOR (test code = Straw Yellow A 7085479897) PH (test code = 4.8-8.0 7787150596) SP GRAVITY (test code = 1.003-1.030 8564829400) GLU U QUAL (test code = Normal Normal 7710584976) BLOOD (test code = Negative Negative 3603182174) KETONES (test code = Negative Negative 2095786741) PROTEIN (test code = Negative Negative 2887-8) UROBILIN (test code = Normal Normal 1747053583) BILIRUBIN (test code = Negative Negative 6098363146) NITRITE (test code = Negative Negative 6617668727) LEUK ROXANE (test code = 25/uL Negative A 8160209952) RBC/HPF (test code = See_Comment [Autom ated message] 9584653786) The system Consumr generated this result transmitted ref erence range: 0 - 3 HP F. The reference range was not used to int erpret this result as normal/abnormal . WBC/HPF (test code = See_Comment [Autom ated message] [id number]) The system [employer] generated this result transmitted ref erence range: 0 - 5 HP F. The reference range was not used to int erpret this result as normal/abnormal . BACTERIA (test code = Few Negative A [id number]) SQ EPITH (test code = HPF [id number]) Lab Interpretation (test Abnormal code = 23655-5) [id number] 16:55:13 Test Item Value Reference Range Interpretation Comments WBC (test code = See_Comment H [Automated 9390-2) message] The sy stem which generated this [...] RDW-SD (test code = 42.4 fL 39.0-49.9 95611-4) RDW-CV (test code = 12.9 % 12.0-15.5 788-0) PLT (test code = See_Comment [Automated 777-3) message] The sy stem which generated this result transmitted reference range : 166 - 358 10*3/ ?L. The reference r susan was not used to interpret this result as normal/abnormal . MPV (test code = 11.5 fL 9.5-12.9 99058-3) NRBC/100 WBC (test See_Comment [Automat ed code = 3539978582) message] The system which generated this result transmitted reference range : 0.0 - 10.0 /100 WBCs. The refer ence range was not u sed to interpret th is result as normal/abnormal . NRBC x10^3 (test code <0.01 See_Comment [Auto mated = 1778547608) message] The s ystem which generated this result transmitted reference range : 10*3/?L. The reference range was not used to interpret this result as normal/abnormal . GRAN MAT (NEUT) % 65.4 % (test code = 770-8) IMM GRAN % (test code 0.40 % = 0058819322) LYMPH % (test code = 24.9 % 736-9) MONO % (test code = 7.7 % 5905-5) EOS % (test code = 1.1 % 713-8) BASO % (test code = 0.5 % 706-2) GRAN MAT x10^3(ANC) 7.44 10*3/uL 1.88-7.09 H (test code = 2125659295) IMM GRAN x10^3 (test 0.05 10*3/uL 0.00-0.06 code = 0203211695) LYMPH x10^3 (test code 2.83 10*3/uL 1.32-3.29 = 731-0) MONO x10^3 (test code 0.88 10*3/uL 0.33-0.92 = 742-7) EOS x10^3 (test code = 0.12 10*3/uL 0.03-0.39 711-2) BASO x10^3 (test code 0.06 10*3/uL 0.01-0.07 = 704-7) Lab Interpretation Abnormal (test code = 82179-6) [facility] Plbb2600-[facility]-28 16:48:00 Test Item Value Reference Range Interpretation Comments POCT PREG (test code = 1605) negative On board controls acceptable with C present Line (test code = 3574) Lab Interpretation (test code = Normal 74507-4) [facility]CT [facility] W/O [id number] 19:42:08 No acute intracranial abnormality. CT HEAD [...] and mastoidair cells are clear.IMPRESSIONNo acute intracranial abnormality.[facility] CenterTroponin I 2020-04-27 19:09:00 Test Item Value Reference Range Interpretation Comments TROPONIN I (test <0.012 See_Comment [Automated code = 4873429555) message] The system which generated this result [...] ? Lab Interpretation Normal (test code = 19202-9) [facility] (NA, K, CL, CO2, GLUCOSE, BUN, CREATININE, CA)2020-04-27 18:58:00 Test Item Value Reference Range Interpretation Comments NA (test code = 139 mmol/L 135-145 7897477675) K (test code = 4.1 mmol/L 3.5-5 4554201919) CL (test code = 98 mmol/L 98-108 8842224151) CO2 TOTAL (test code = 32 mmol/L 23-31 H 0018137092) AGAP (test code = 2-16 3971287230) BUN (test code = 11 mg/dL 7-23 6997007687) GLUCOSE (test code = 86 mg/dL 70-110 3629253069) CREATININE (test code = 0.78 mg/dL 0.5-1.04 8936513469) CALCIUM (test code = 10.2 mg/dL 8.6-10.6 7837547775) eGFR Calculation mL/min/1.73m2 (Non-) (test code = 0336053696) eGFR Calculation mL/min/1.73m2 () (test code = 5216497973) JOSH (test code = JOSH) Association of [...] tests). Lab Interpretation Abnormal (test code = 69340-8) [facility] with Zqevzkgcsrdl5720-90-73 18:54:00 Test Item Value Reference Range Interpretation [...] RDW-SD (test code = 42.5 fL 39-49.9 74182-0) RDW-CV (test code = 12.8 % 12-15.5 788-0) PLT (test code = See_Comment [Automated 777-3) message] The sy stem which generated this result transmitted reference range : 166 - 358 10*3/ ?L. The reference r susan was not used to interpret this result as normal/abnormal . MPV (test code = 11.9 fL 9.5-12.9 42250-1) NRBC/100 WBC (test See_Comment [Automat ed code = 4659160946) message] The system which generated this result transmitted reference range : 0.0 - 10.0 /100 WBCs. The refer ence range was not u sed to interpret th is result as normal/abnormal . NRBC x10^3 (test code <0.01 See_Comment [Auto mated = 9544879215) message] The s ystem which generated this result transmitted reference range : 10*3/?L. The reference range was not used to interpret this result as normal/abnormal . GRAN MAT (NEUT) % 62.6 % (test code = 770-8) IMM GRAN % (test code 0.20 % = 9361657809) LYMPH % (test code = 26.7 % 736-9) MONO % (test code = 9.0 % 5905-5) EOS % (test code = 1.1 % 713-8) BASO % (test code = 0.4 % 706-2) GRAN MAT x10^3(ANC) 5.07 10*3/uL 1.88-7.09 (test code = 9402749211) IMM GRAN x10^3 (test <0.03 0-0.06 code = 8633561817) LYMPH x10^3 (test code 2.16 10*3/uL 1.32-3.29 = 731-0) MONO x10^3 (test code 0.73 10*3/uL 0.33-0.92 = 742-7) EOS x10^3 (test code = 0.09 10*3/uL 0.03-0.39 711-2) BASO x10^3 (test code 0.03 10*3/uL 0.01-0.07 = 704-7) Lab Interpretation Abnormal (test code = 16736-6) [facility] [id number] 11:05:00 Test Item Value Reference Range Interpretation Comments TROPONIN I (test <0.012 See_Comment [Automated code = 4539528278) message] The system which generated this result [...] ? Lab Interpretation Normal (test code = 29357-7) [facility] Metabolic Panel (NA, K, CL, CO2, GLUCOSE, BUN, CREATININE, CA)2020-02-08 10:55:00 Test Item Value Reference Range Interpretation Comments NA (test code = 138 mmol/L 135-145 9647043953) K (test code = 4.1 mmol/L 3.5-5 4472530434) CL (test code = 104 mmol/L 98-108 0531165462) CO2 TOTAL (test code = 26 mmol/L 23-31 2562184956) AGAP (test code = 2-16 1719994545) BUN (test code = 14 mg/dL 7-23 6843385860) GLUCOSE (test code = 94 mg/dL 70-110 9151657268) CREATININE (test code 0.91 mg/dL 0.5-1.04 = 4423006777) CALCIUM (test code = 9.0 mg/dL 8.6-10.6 6614311450) eGFR Calculation mL/min/1.73m2 (Non-) (test code = 2456857429) eGFR Calculation mL/min/1.73m2 () (test code = 6858313156) JOSH (test code = JOSH) Association of [...] imaging tests). [facility] with Vnhdjragntrr3767-30-83 10:26:00 Test Item Value Reference Range Interpretation Comments WBC (test code = See_Comment [Automated message] 4490-2) The system Consumr generated this result transmitted ref erence range: 4.30 - 1 1.10 10*3/?L. The re ference range was not u sed to interpret this result as normal/abnor mal. RBC (test code = See_Comment [Automated message] 949-8) The system Consumr generated this result transmitted ref erence range: [...] RDW-SD (test code 45.3 fL 39-49.9 = 32407-9) RDW-CV (test code 13.4 % 12-15.5 = 788-0) PLT (test code = See_Comment [Automated message] 367-3) The system whic h generated this result transmitted ref erence range: 166 - 35 8 10*3/?L. The re ference range was not u sed to interpret this result as normal/abnor mal. MPV (test code = 11.9 fL 9.5-12.9 18104-2) NRBC/100 WBC (test See_Comment [Automat ed message] code = 8823122735) The syste m which generated this result transmitted ref erence range: 0.0 - 10 .0 /100 WBCs. The refer ence range was not u sed to interpret this result as normal/abnor mal. NRBC x10^3 (test <0.01 See_Comment [Automated message] code = 4859952671) The syste m which generated this result transmitted ref erence range: 10*3/?L. The reference range was not used to interpr et this result as normal/abnormal . GRAN MAT (NEUT) % 63.9 % (test code = 770-8) IMM GRAN % (test 0.40 % code = 4864575208) LYMPH % (test code 26.9 % = 736-9) MONO % (test code 6.7 % = 5905-5) EOS % (test code = 1.6 % 713-8) BASO % (test code 0.5 % = 706-2) GRAN MAT 4.94 10*3/uL 1.88-7.09 x10^3(ANC) (test code = 9490999809) IMM GRAN x10^3 0.03 10*3/uL 0-0.06 (test code = 1746853470) LYMPH x10^3 (test 2.08 10*3/uL 1.32-3.29 code = 731-0) MONO x10^3 (test 0.52 10*3/uL 0.33-0.92 code = 742-7) EOS x10^3 (test 0.12 10*3/uL 0.03-0.39 code = 711-2) BASO x10^3 (test 0.04 10*3/uL 0.01-0.07 code = 704-7) [facility] CenterRodo [id number] 05:34:00 Test Item Value Reference Range Interpretation Comments TROPONIN I (test <0.012 See_Comment [Automated code = 5025311404) message] The system which generated this result [...] ? Lab Interpretation Normal (test code = 85715-7) [facility] CenterThyroid Stimulating Hormone (TSH)2020-02-08 02:02:00 Test Item Value Reference Range Interpretation Comments TSH (test code = See_Comment [Automated message] 4935040733) The system Consumr generated this result transmitted ref erence range: 0.45 - 4 .70 mIU/L. The refe rence range was not u sed to interpret this result as normal/abnor mal. Lab Interpretation (test Normal code = 01092-4) [facility] CenterMagnesium [id number] 01:31:00 Test Item Value Reference Range Interpretation Comments MAGNESIUM (test code = 7129569960) 2.1 mg/dL 1.7-2.4 Lab Interpretation (test code = Normal 58324-9) [facility] CenterLipid Panel (Total Cholesterol, Triglycerides, HDL)2020-02-08 01:31:00 Test Item Value Reference Range Interpretation Comments CHOL (test code = 220 mg/dL 120-200 H 3901631344) HDL (test code = 44 mg/dL >50 L 0237324656) HDLC RATIO (test code = See_Comment H [Au tomated message] 6836364419) The system Consumr generated this result transmit alistair reference range : <=4.5. The refe rence range was not u sed to interpret th is result as normal/abnormal . TRIG (test code = 179 mg/dL 30-170 H 4043825097) LDL CHOL (test code = 140 mg/dL See_Comment [Auto mated message] 95638-6) The system Consumr generated this result transmit alistair reference range : <=160. The refe rence range was not u sed to interpret th is result as normal/abnormal . VLDL (test code = 36 mg/dL 5-60 5990590092) Lab Interpretation (test Abnormal code = 51594-4) [facility] CenterCOVID-19 (ID NOW RAPID TESTING)2020-02-07 23:26:00 Test Item Value Reference Range Interpretation Comments SARS-CoV-2 Rapid ID NOW Not Detected Not Detected (test code = 75362-4) JOSH (test code = JOSH) ID NOW COVID-19 Assay is an isothermal nucleic acid amplification test intended for the qualitative detection of nucleic acid from SARS-CoV-2 viral RNA in nasopharyngeal ([employer]) specimens. It is used under Emergency Use [...] indicated. Lab Interpretation Normal (test code = 75559-7) [facility] CenterTROPONIN [id number] 22:52:00 Test Item Value Reference Range Interpretation Comments TROPONIN I (test <0.012 See_Comment [Automated code = 2998406533) message] The system which generated this result [...] ? Lab Interpretation Normal (test code = 03698-3) [facility] CenterCT [facility]BDOMEN PEL[facility] W [id number] 21:53:30CT Abdomen and Pelvis with intravenous contrast. [...] Unremarkable.CONCLUSION: No acute intra-abdominal or pelvic abnormalities detected.[facility] CHEST PULMONARY EVCAFHLVK4376-46-83 21:48:38 No acute or chronic pulmonary embolus [...] reviewed this study and agree with theabove report.[facility] CenterUrinalysis2020-10-27 20:52:00 Test Item Value Reference Range Interpretation Comments APPEARANCE (test code = Clear Clear 1875744834) COLOR (test code = Straw Yellow A 1720978924) PH (test code = 4.8-8.0 9864610523) SP GRAVITY (test code = 1.003-1.030 5612985761) GLU U QUAL (test code = Normal Normal 7414212284) BLOOD (test code = Negative Negative 0314844204) KETONES (test code = Negative Negative 4698729609) PROTEIN (test code = Negative Negative 2887-8) UROBILIN (test code = Normal Normal 0872356573) BILIRUBIN (test code = Negative Negative 2978279168) NITRITE (test code = Negative Negative 0527333081) LEUK ROXANE (test code = Negative Negative 4800616028) RBC/HPF (test code = See_Comment [Autom ated message] 2432463491) The system Consumr generated this result transmitted ref erence range: 0 - 3 HP F. The reference range was not used to int erpret this result as normal/abnormal . WBC/HPF (test code = See_Comment [Autom ated message] 6992049370) The system Consumr generated this result transmitted ref erence range: 0 - 5 HP F. The reference range was not used to int erpret this result as normal/abnormal . BACTERIA (test code = Few Negative A 1553348299) MUCOUS (test code = Slight Negative LPF A 0456843620) SQ EPITH (test code = HPF 9487605621) Lab Interpretation (test Abnormal code = 47314-6) [facility] 1 Mfdj5519-45-69 20:38:53HISTORY: Chest pain. TECHNIQUE: Portable AP erect [...] CONCLUSIONS: No signs of acute cardiopulmonary disease. [facility] [id number] 20:36:00 Test Item Value Reference Range Interpretation Comments TROPONIN I (test <0.012 See_Comment [Automated code = 1880041364) message] The system which generated this result [...] ? Lab Interpretation Normal (test code = 72930-7) [facility] CenterN-TERMINAL [id number] 20:33:00 Test Item Value Reference Range Interpretation Comments NT-proBNP (test code 53 pg/mL See_Comment [Autom ated = 6359127784) message] The system which generated this result transmitted reference range : <=125. The reference range was not used to interpret this result as normal/abnormal . JOSH (test code = JOSH) Biotin has been reported to cause a negative bias, interpret results relative to patient's use of biotin. Lab Interpretation Normal (test code = 92925-7) [facility] CenteraPTT2020-10-27 20:29:00 Test Item Value Reference Range Interpretation Comments APTT Patient (test See_Comment [Automat ed code = 3173-2) message] The system which generated this result transmitted reference range : 23 - 38 Seconds . The reference range was not used to interpr et this result as normal/abnormal . JOSH (test code = JOSH) The [facility] patient population mean normal value for aPTT is 30 seconds. Lab Interpretation Normal (test code = 15004-1) [facility] CenterProthrombin Time (PT) / [id number] 20:27:00 Test Item Value Reference Range Interpretation Comments PROTIME PATIENT (test See_Comment [Auto mated message] code = 5964-2) The system ich generated this result transmitted ref erence range: 12.0 - 1 4.7 Seconds. The re ference range was not u sed to interpret this result as normal/abnor mal. INR (test code = 6301-6) Nor mal INR <1.1; Warfarin Therap eutic range 2.0 to 3. 0 or 2.5 to 3.5, dep ending upon the indica tions. Lab Interpretation (test Normal code = 29772-4) [facility] CenterBasi Metabolic Panel (NA, K, CL, CO2, GLUCOSE, BUN, CREATININE, CA)2020-02-07 20:24:00 Test Item Value Reference Range Interpretation Comments NA (test code = 138 mmol/L 135-145 6458974564) K (test code = 3.9 mmol/L 3.5-5 8303524779) CL (test code = 98 mmol/L 98-108 3767416282) CO2 TOTAL (test code = 32 mmol/L 23-31 H 3694229904) AGAP (test code = 2-16 2074545825) BUN (test code = 13 mg/dL 7-23 8623087123) GLUCOSE (test code = 103 mg/dL 70-110 6826075283) CREATININE (test code = 1.33 mg/dL 0.5-1.04 H 5207880288) CALCIUM (test code = 10.0 mg/dL 8.6-10.6 9740576554) eGFR Calculation mL/min/1.73m2 (Non-) (test code = 6182216966) eGFR Calculation mL/min/1.73m2 () (test code = 1366498801) JOSH (test code = JOSH) Association of [...] tests). Lab Interpretation Abnormal (test code = 00220-7) [facility] CenterHepatic Function Panel (ALB, T.PRO, BILI T, BU/BC, ALT, AST, ALK PHOS)2020-02-07 20:24:00 Test Item Value Reference Range Interpretation Comments TOTAL BILI (test code = 8185686522) 0.4 mg/dL 0.1-1.1 BILI UNCON (test code = 9663819137) 0.3 mg/dL 0.1-1.1 BILI CONJ (test code = 4440749485) 0.0 mg/dL 0-0.3 T PROTEIN (test code = 4556447559) 7.4 g/dL 6.3-8.2 ALBUMIN (test code = 1889771296) 4.4 g/dL 3.5-5 ALK PHOS (test code = 0896401362) 99 U/L 34-122 ALTv (test code = 1742-6) 16 U/L 5-35 AST(SGOT) (test code = 2342769173) 19 U/L 13-40 Lab Interpretation (test code = Normal 97659-5) [facility] CenterLipase Yqjsh6425-26-99 20:24:00 Test Item Value Reference Range Interpretation Comments LIPASE (test code = 6086730522) 393 U/L 0-220 H Lab Interpretation (test code = Abnormal 76548-6) [facility] CenterCBC with Wepmfvlbbrwm2010-30-90 20:19:00 Test Item Value Reference Range Interpretation Comments WBC (test code = See_Comment [Automated message] 6690-2) The system Consumr generated this result transmitted ref erence range: 4.30 - 1 1.10 10*3/?L. The re ference range was not u sed to interpret this result as normal/abnor mal. RBC (test code = See_Comment [Automated message] 709-8) The system Consumr generated this result transmitted ref erence range: [...] RDW-SD (test code 43.5 fL 39-49.9 = 53918-8) RDW-CV (test code 13.2 % 12-15.5 = 788-0) PLT (test code = See_Comment [Automated message] 777-3) The system Consumr generated this result transmitted ref erence range: 166 - 35 8 10*3/?L. The re ference range was not u sed to interpret this result as normal/abnor mal. MPV (test code = 12.1 fL 9.5-12.9 50891-5) NRBC/100 WBC (test See_Comment [Automat ed message] code = 7980638927) The syste m which generated this result transmitted ref erence range: 0.0 - 10 .0 /100 WBCs. The refer ence range was not u sed to interpret this result as normal/abnor mal. NRBC x10^3 (test <0.01 See_Comment [Automated message] code = 3776822671) The syste m which generated this result transmitted ref erence range: 10*3/?L. The reference range was not used to interpr et this result as normal/abnormal . GRAN MAT (NEUT) % 62.9 % (test code = 770-8) IMM GRAN % (test 0.50 % code = 5941304058) LYMPH % (test code 26.9 % = 736-9) MONO % (test code 7.8 % = 5905-5) EOS % (test code = 1.2 % 713-8) BASO % (test code 0.7 % = 706-2) GRAN MAT 6.08 10*3/uL 1.88-7.09 x10^3(ANC) (test code = 3948036225) IMM GRAN x10^3 0.05 10*3/uL 0-0.06 (test code = 5950414785) LYMPH x10^3 (test 2.61 10*3/uL 1.32-3.29 code = 731-0) MONO x10^3 (test 0.76 10*3/uL 0.33-0.92 code = 742-7) EOS x10^3 (test 0.12 10*3/uL 0.03-0.39 code = 711-2) BASO x10^3 (test 0.07 10*3/uL 0.01-0.07 code = 704-7) [facility] CenterPOLA Hjim0314-56-68 20:03:00 Test Item Value Reference Range Interpretation Comments POCT PREG (test code = 1605) Negative On board controls acceptable with Present C Line (test code = 3574) POCT PREG LOT # (test code = 3575) [id number] POCT PREG TEST DATE (test 07/11/2021 code = 3576) Lab Interpretation (test code = Normal 16381-7) [facility] ABDOMEN PELVIS W [id number] 00:58:03Impression: 1. Bilateral pyelonephritis.2. Mild right renal [...] - 01/24/2020 7:59 PM CDTOrdering Physician: MARK CERONEYHistory: Acute generalized abdominal pain.Technique: CT abdomen and [...] cortical scarring.3. Mild hepatomegaly.RL: 460End of Report UnCH[facility]PO[facility] 2020-01-24 23:22:00 Test Item Value Reference Range Interpretation Comments POCT PREG (test code = 1605) negative On board controls acceptable with present C Line (test code = 3574) POCT PREG LOT # (test code = 3575) [id number] POCT PREG TEST DATE (test 2020-11-10 code = 3576) Lab Interpretation (test code = Normal 95092-0) [facility] CenterURINALYSIS2020-10-13 23:21:00 Test Item Value Reference Range Interpretation Comments APPEARANCE (test code = Hazy Clear A 5491912648) COLOR (test code = Yellow Yellow 5450466876) PH (test code = 4.8-8.0 2917445091) SP GRAVITY (test code = 1.003-1.030 1207650562) GLU U QUAL (test code = Normal Normal 3547826877) BLOOD (test code = Negative Negative 4228811405) KETONES (test code = Negative Negative 9127404993) PROTEIN (test code = Negative Negative 2887-8) UROBILIN (test code = Normal Normal 8195015388) BILIRUBIN (test code = Negative Negative 3819688683) NITRITE (test code = Negative Negative 3315468591) LEUK ROXANE (test code = 250/uL Negative A 2720492152) RBC/HPF (test code = See_Comment [Autom ated message] 4208641955) The system Consumr generated this result transmitted ref erence range: 0 - 3 HP F. The reference range was not used to int erpret this result as normal/abnormal . WBC/HPF (test code = See_Comment H [Autom ated message] 9940127114) The system Consumr generated this result transmitted ref erence range: 0 - 5 HP F. The reference range was not used to int erpret this result as normal/abnormal . BACTERIA (test code = Moderate Negative A 3158841259) MUCOUS (test code = Slight Negative LPF A 3700028433) SQ EPITH (test code = HPF 2067502556) Lab Interpretation (test Abnormal code = 34723-0) [facility] CenterCOMP. METABOLIC PANEL (40169)2020-01-24 23:01:00 Test Item Value Reference Range Interpretation Comments NA (test code = 139 mmol/L 135-145 8232023575) K (test code = 4.0 mmol/L 3.5-5 0929728519) CL (test code = 98 mmol/L 98-108 0871407903) CO2 TOTAL (test code = 30 mmol/L 23-31 1774840413) AGAP (test code = 2-16 2447333640) BUN (test code = 13 mg/dL 7-23 6077240863) GLUCOSE (test code = 105 mg/dL 70-110 3583951558) CREATININE (test code 1.00 mg/dL 0.5-1.04 = 4371479089) TOTAL BILI (test code 0.5 mg/dL 0.1-1.1 = 9267220542) CALCIUM (test code = 10.4 mg/dL 8.6-10.6 5435936668) T PROTEIN (test code = 7.7 g/dL 6.3-8.2 8021889410) ALBUMIN (test code = 4.5 g/dL 3.5-5 2047091791) ALK PHOS (test code = 118 U/L 34-122 5058129044) ALTv (test code = 30 U/L 5-35 1742-6) AST(SGOT) (test code = 22 U/L 13-40 5815746441) eGFR Calculation mL/min/1.73m2 (Non-) (test code = 3866959973) eGFR Calculation mL/min/1.73m2 () (test code = 8961374856) JOSH (test code = JOSH) Association of [...] or urine or abnormalities in imaging tests). [facility] CenterLIPASE2020-10-13 23:00:00 Test Item Value Reference Range Interpretation Comments LIPASE (test code = 2592492554) 125 U/L 0-220 Lab Interpretation (test code = Normal 29948-7) [facility] WITH OGKW9456-17-50 22:55:00 Test Item Value Reference Range Interpretation Comments WBC (test code = See_Comment [Automated message] 6690-2) The system Consumr generated this result transmitted ref erence range: 4.30 - 1 1.10 10*3/?L. The re ference range was not u sed to interpret this result as normal/abnor mal. RBC (test code = See_Comment [Automated message] 789-8) The system Consumr generated this result transmitted ref erence range: [...] RDW-SD (test code 43.5 fL 39-49.9 = 73345-5) RDW-CV (test code 13.3 % 12-15.5 = 788-0) PLT (test code = See_Comment [Automated message] 777-3) The system whic h generated this result transmitted ref erence range: 166 - 35 8 10*3/?L. The re ference range was not u sed to interpret this result as normal/abnor mal. MPV (test code = 11.6 fL 9.5-12.9 18418-9) NRBC/100 WBC (test See_Comment [Automat ed message] code = 9563244126) The syste m which generated this result transmitted ref erence range: 0.0 - 10 .0 /100 WBCs. The refer ence range was not u sed to interpret this result as normal/abnor mal. NRBC x10^3 (test <0.01 See_Comment [Automated message] code = 4373084672) The syste m which generated this result transmitted ref erence range: 10*3/?L. The reference range was not used to interpr et this result as normal/abnormal . GRAN MAT (NEUT) % 59.7 % (test code = 770-8) IMM GRAN % (test 0.40 % code = 8425629817) LYMPH % (test code 29.5 % = 736-9) MONO % (test code 8.2 % = 5905-5) EOS % (test code = 1.7 % 713-8) BASO % (test code 0.5 % = 706-2) GRAN MAT 5.93 10*3/uL 1.88-7.09 x10^3(ANC) (test code = 8825971887) IMM GRAN x10^3 0.04 10*3/uL 0-0.06 (test code = 6122102135) LYMPH x10^3 (test 2.93 10*3/uL 1.32-3.29 code = 731-0) MONO x10^3 (test 0.81 10*3/uL 0.33-0.92 code = 742-7) EOS x10^3 (test 0.17 10*3/uL 0.03-0.39 code = 711-2) BASO x10^3 (test 0.05 10*3/uL 0.01-0.07 code = 704-7) [facility]CT [facility] W [id number] 19:13:50CT Abdomen and Pelvis with intravenous contrast. [...] intrapelvic abnormalities detected.Please see additional comments above. Rust, Radiant Results Inft User - 06/02/2019 1:14 [...] or intrapelvic abnormalities detected.Please see additional comments above.[facility] Fvtcfsgadz8556-30-46 18:13:00 Test Item Value Reference Range Interpretation Comments APPEARANCE (test code = Clear Clear 6985220128) COLOR (test code = Yellow Yellow 8219359708) PH (test code = 4.8-8.0 3814596205) SP GRAVITY (test code = 1.003-1.030 2665156981) GLU U QUAL (test code = Normal Normal 2398961333) BLOOD (test code = Negative Negative 7351898444) KETONES (test code = Negative Negative 6534001448) PROTEIN (test code = Negative Negative 2887-8) UROBILIN (test code = Normal Normal 6713077958) BILIRUBIN (test code = Negative Negative 8277236508) NITRITE (test code = Negative Negative 4344193148) LEUK ROXANE (test code = Negative Negative 8851059486) RBC/HPF (test code = See_Comment [Autom ated message] 7785080705) The system Consumr generated this result transmitted ref erence range: 0 - 3 HP F. The reference range was not used to int erpret this result as normal/abnormal . WBC/HPF (test code = See_Comment [Autom ated message] 0057407566) The system Consumr generated this result transmitted ref erence range: 0 - 5 HP F. The reference range was not used to int erpret this result as normal/abnormal . BACTERIA (test code = Negative Negative 5022746492) MUCOUS (test code = Slight Negative LPF A 3425838661) SQ EPITH (test code = HPF 8160400131) Lab Interpretation (test Abnormal code = 71144-4) [facility]. METABOLIC PANEL (38595)2019-06-02 18:09:00 Test Item Value Reference Range Interpretation Comments NA (test code = 138 mmol/L 135-145 7677814677) K (test code = 4.2 mmol/L 3.5-5 4870031999) CL (test code = 102 mmol/L 98-108 0954846214) CO2 TOTAL (test code = 27 mmol/L 23-31 5592331715) AGAP (test code = 2-16 8148987268) BUN (test code = 12 mg/dL 7-23 5822569622) GLUCOSE (test code = 93 mg/dL 70-110 1148638843) CREATININE (test code 0.73 mg/dL 0.5-1.04 = 9508374279) TOTAL BILI (test code 0.4 mg/dL 0.1-1.1 = 9908173528) CALCIUM (test code = 9.5 mg/dL 8.6-10.6 9363805193) T PROTEIN (test code = 7.3 g/dL 6.3-8.2 7877595257) ALBUMIN (test code = 4.6 g/dL 3.5-5 5466930552) ALK PHOS (test code = 84 U/L 34-122 8985128454) ALTv (test code = 12 U/L 5-35 1742-6) AST(SGOT) (test code = 21 U/L 13-40 0714448792) eGFR Calculation mL/min/1.73m2 (Non-) (test code = 7490260484) eGFR Calculation mL/min/1.73m2 () (test code = 0360062777) JOSH (test code = JOSH) Association of [...] or urine or abnormalities in imaging tests). [facility] [id number] 18:09:00 Test Item Value Reference Range Interpretation Comments LIPASE (test code = 4491706528) 108 U/L 0-220 Lab Interpretation (test code = Normal 36591-7) [facility] WITH [id number] 18:01:00 Test Item Value Reference Range Interpretation Comments WBC (test code = See_Comment [Automated message] 6690-2) The system [employer] generated this result transmitted ref erence range: 4.30 - 1 1.10 10*3/?L. The re ference range was not u sed to interpret this result as normal/abnor mal. RBC (test code = See_Comment [Automated message] 789-8) The system [employer] generated this result transmitted ref erence range: [...] RDW-SD (test code 46.2 fL 39-49.9 = 16421-4) RDW-CV (test code 14.1 % 12-15.5 = 788-0) PLT (test code = See_Comment [Automated message] 777-3) The system [employer] generated this result transmitted ref erence range: 166 - 35 8 10*3/?L. The re ference range was not u sed to interpret this result as normal/abnor mal. MPV (test code = 10.8 fL 9.5-12.9 74714-3) NRBC/100 WBC (test See_Comment [Automat ed message] code = 2211101055) The syste m which generated this result transmitted ref erence range: 0.0 - 10 .0 /100 WBCs. The refer ence range was not u sed to interpret this result as normal/abnor mal. NRBC x10^3 (test <0.01 See_Comment [Automated message] code = 3961804035) The syste m which generated this result transmitted ref erence range: 10*3/?L. The reference range was not used to interpr et this result as normal/abnormal . GRAN MAT (NEUT) % 69.9 % (test code = 770-8) IMM GRAN % (test 0.70 % code = 8887424687) LYMPH % (test code 21.2 % = 736-9) MONO % (test code 6.2 % = 5905-5) EOS % (test code = 1.4 % 713-8) BASO % (test code 0.6 % = 706-2) GRAN MAT 6.08 10*3/uL 1.88-7.09 x10^3(ANC) (test code = 3241326881) IMM GRAN x10^3 0.06 10*3/uL 0-0.06 (test code = 3541480290) LYMPH x10^3 (test 1.84 10*3/uL 1.32-3.29 code = 731-0) MONO x10^3 (test 0.54 10*3/uL 0.33-0.92 code = 742-7) EOS x10^3 (test 0.12 10*3/uL 0.03-0.39 code = 711-2) BASO x10^3 (test 0.05 10*3/uL 0.01-0.07 code = 704-7) [facility], [id number] 17:48:00 Test Item Value Reference Range Interpretation Comments POCT PREG (test code = 1605) negative POCT PREG LOT # (test code = 3575) [id number] POCT PREG TEST DATE (test 11/10/2020 code = 3576) Lab Interpretation (test code = Normal 56623-8) [facility]- [facility] CHEST 1 [id number] 19:54:00 Name: VIC JAMES [place] : 1980 Age/S: 38 / F [address] [address] [place] Unit #: [id number] Loc: [place] [address] Phys: Génesis King MD Acct: [id number] Dis Date: Status: ADM IN PHONE #: [phone] Exam Date: 02/22/20191940 FAX #: Reason: SOB EXAMS: CPT: [id number] XR CHEST 1 V 93761 Fluoro Time: DAP (Gy m2): Air Kerma [...] PAGE 1 Signed Report Name: VIC JAMES [place] : 1980 Age/S: 38 / F [address] [address] [place] [address] [place] Unit #: [id number] Loc: [place] [address] Phys: Génesis King MD Acct: [id number] Dis Date: Status: ADM IN PHONE #: [phone] Exam Date: 02/22/20191940 FAX #: Reason: SOB EXAMS: CPT: [id number] XR CHEST 1 V 50176 Fluoro Time: DAP (Gy m2): Air Kerma (mGy): (Continued) Technologist: Babatunde RT(R)(CT) Trnscb Date/Time: 02/22/2019 (1953) Talya Orig Print D/T: S: 02/22/2019 (1956) PAGE 2 Signed Report- [facility] [id number] 15:32:00 Name: VIC JAMES [place] : 1980 Age/S: 38 / F [address] [address] [place] [address] [place] Unit #: [id number] Loc: [place] [address] Phys: Génesis King MD Acct: [id number] Dis Date: Status: ADM IN PHONE #: [phone] Exam Date: 02/22/2019 1200 FAX #: Reason: back pain EXAMS: CPT: [id number] US RETROLTD 21794 EXAMINATION: - US RETRO LTD. LOCATION: T18. [...] 0.9 x 2.0 cm hypoechoic region in rightupper pole renal pelvis. Urinary bladder is distended. [...] Nina Andrews, RT(R),RDMS(AB) Trnscb Date/Time: 02/22/2019 (1532) Marian.ANS4 PAGE 1 Signed Report Name: VIC JAMES [place] : 1980 Age/S: 38 / F [address] [address] [place] Unit #: [id number] Loc: [place] [address] Phys: Génesis King MD Acct: [id number] Dis Date: Status: ADM IN P NICKIE #: [phone] Exam Date: 02/22/2019 1200 FAX #: Reason: back pain EXAMS: CPT: [id number] RETRO LTD 18265 (Continued) Orig Print D/T: S: 02/22/2019 (1532) Probe: PAGE 2 Signed ReportCBC W/AUTO [id number] 12:09:00 Test Item Value Reference Range Interpretation [...] MDIFF) CONSISTA NT WITH AUTO DIFFERENTIAL. RBC [id number] 12:09:00 Test Item Value Reference Range Interpretation Comments ANISOCYTOSIS (test code = 1+ NONE ANISO) MICROCYTOSIS (test code = 1+ ON SCAN NONE MICR) PLATELET ESTIMATE (test ADEQUATE THOUSAND ADEQUATE code = PLTEST) PLATELET MORPHOLOGY (test NORMAL code = PLTMORPH) CBC W/AUTO [id number] 12:08:00 Test Item Value Reference Range Interpretation [...] = NO DIFF/SCN CRITERIA MDIFF) CBC W/AUTO [id number] 12:08:00 Test Item Value Reference Range Interpretation [...] code = NO DIFF/SCN CRITERIA MDIFF) RBC [id number] 12:08:00 Test Item Value Reference Range Interpretation Comments ANISOCYTOSIS (test code = 1+ NONE ANISO) MICROCYTOSIS (test code = 1+ ON SCAN NONE MICR) PLATELET ESTIMATE (test ADEQUATE THOUSAND ADEQUATE code = PLTEST) PLATELET MORPHOLOGY (test NORMAL code = PLTMORPH) CBC W/AUTO [id number] 12:08:00 Test Item Value Reference Range Interpretation [...] = NO DIFF/SCN CRITERIA MDIFF) BASIC METABOLIC [id number] 07:07:00 Test Item Value Reference Range Interpretation [...] CA) 7.8 MG/DL 8.5-10.1 L CBC W/AUTO [id number] 06:58:00 Test Item Value Reference Range Interpretation [...] ng/mL are obtained. - CT ABD PELVIS [id number] 20:34:00 Name: VIC JAMES [facility] : 1980 Age/S: 38 / F [address] [facility] Unit #: [id number] Loc: [place] [address] Phys: Cony Partida MD Acct: [id number] Dis Date: Status: ADM IN PHONE#: [phone] Exam Date: 02/19/20192024 FAX #: Reason: acute PN, possible ureteral stone EXAMS: CPT: [id number] CT ABD PELVIS W/CONT 86221 CT Abdomen and Pelvis with contrast. Location: [...] hydronephrosis. at 2034 Reported and signed by: Idania Lawrence CC: Jordan Jean MD; Cony Partida MD Technologist:RT Evita(R)(CT) CTDI: DLP: Trnscb Date/Time: 02/19/2019 (2033) BarbieRB24 Orig Print D/T: S: 02/19/2019 (2036) PAGE 1 Signed ReportUA RFLX MICR CULT IF [id number] 19:43:00 Test Item Value Reference Range Interpretation [...] culture: Flank PainUA RFLX MICR CULT IF [id number] 19:28:00 Test Item Value Reference Range Interpretation [...] 50,000 2ND & 3R D TRIMESTER LACTIC [id number] 18:52:00 Test Item Value Reference Range Interpretation Comments LACTIC ACID (test code = LACT) 0.7 mmol/L 0.4-2.0 N CBC W/AUTO [id number] 17:55:00 Test Item Value Reference Range Interpretation [...] MDIFF) CONSISTA NT WITH AUTO DIFFERENTIAL. RBC [id number] 17:55:00 Test Item Value Reference Range Interpretation Comments ANISOCYTOSIS (test code = ANISO) 1+ NONE CBC W/AUTO [id number] 17:54:00 Test Item Value Reference Range Interpretation [...] CONSISTA NT WITH AUTO DIFFERENTIAL. CBC W/AUTO [id number] 17:54:00 Test Item Value Reference Range Interpretation [...] CONSISTA NT WITH AUTO DIFFERENTIAL. BASIC METABOLIC [id number] 17:43:00 Test Item Value Reference Range Interpretation [...] Unit/L 84-246 N code = LDH) LACTIC [id number] 17:43:00 Test Item Value Reference Range Interpretation Comments LACTIC ACID (test code = LACT) 0.8 mmol/L 0.4-2.0 N BASIC METABOLIC [id number] 17:36:00 Test Item Value Reference Range Interpretation [...] code Unit/L 84-246 = LDH) CBC W/AUTO [id number] 17:35:00 Test Item Value Reference Range Interpretation [...]
[2023-02-19] MEDS ORDERED: HYDROMORPHONE HCL 1 MG/ML INJ ONE (08:21)
[2023-02-19] MEDS ORDERED: NA CHLORIDE 0.9% 1,000 ML ONE (08:21)
[2023-02-19 08:28] LABS: Hematocrit 38.7 % (36.0-45.0); Lymphocytes % 25.4 % (15.3-44.8); MPV 8.4 fL (7.6-11.3); Platelets 337 thou/uL (152-406); RBC Red Blood Cell Count 4.56 M/uL (3.86-4.86)
[2023-02-19 08:29] LABS: Specific Gravity 1.006 (1.005-1.030)
[2023-02-19 08:30] LABS: Specific Gravity 1.006 (1.005-1.030); Urine Bacteria <20 /HPF (<20); Urine Bilirubin NEGATIVE (Negative); Urine Blood Negative (Negative); Urine Clarity Extremely Turbid (Clear); Urine Color Colorless (Yellow); Urine Glucose NEGATIVE (Negative); Urine Mucus Slight /HPF (None Seen); Urine Protein NEGATIVE (Negative); Urine RBC <5 /HPF (None Seen); Urine Urobilinogen Normal (Normal); Urine pH 8.5 (5.0-7.0)
[2023-02-19] MEDS ORDERED: ONDANSETRON 4 MG/2 ML VIAL ONE (08:33)
[2023-02-19 08:50] LABS: Albumin 3.6 g/dL (3.4-5.0); Bilirubin Total 0.4 mg/dL (0.2-1.0); Potassium 3.3 mEq/L (3.5-5.1); Protein, Total 7.3 g/dL (6.4-8.2); Troponin High Sensitivity 4.8 pg/mL (<58.9)
--- NOTE | 2023-02-19 09:26 | RAD REPORT ---
EXAM DESCRIPTION: CT - Abdomen Pelvis W Contrast - 02/19/2023 9:06 am CLINICAL HISTORY: Abdominal pain COMPARISON: December 2022 TECHNIQUE: Computed axial tomography of the abdomen pelvis was obtained. 100 cc Isovue-300 was admin istered intravenously. Oral contrast was not requested which limits evaluation of bowel and appendix All CT scans are performed using dose optimization technique as appropriate and may include automated exposure control or mA/KV adjustment according to patient size. FINDINGS: Liver is enlarged with fatty infiltration Spleen, pancreas, adrenal and kidneys appear unremarkable. There is no evidence of diverticulitis. Normal appendix. No adnexal mass Small umbilical hernia IMPRESSION: Hepatomegaly with fatty infiltration
--- NOTE | 2023-02-19 09:39 | RAD REPORT ---
EXAM DESCRIPTION: Peter Single View02/19/2023 9:17 am CLINICAL HISTORY: Shortness of breath COMPARISON: September 2022 FINDINGS: The lungs appear clear of acute infiltrate. The heart is normal size IMPRESSION: No acute abnormalities displayed
--- NOTE | 2023-02-19 09:47 | EDPHYS ---
Physician Documentation [facility] Name: Yohana Reeves Age: 42 yrs Sex: Female : 1980 Arrival Date: 02/19/2023 Time: 07:41 Bed 2 Private MD: Edd Friedman ED Physician Violeta Shin HPI: 02/19 07:54 This 42 yrs old Female presents to ER via Unassigned with complaints of Abdominal Pain, sp3 Vomiting, Shortness Of Breath. 07:55 42-year-old female with history of multiple C-sections including one complication which sp3 resulted in an open laparotomy, 1 prior kidney stone history, no other surgical history now presents to the ED with 48 hours of right lower quadrant and right flank pain. Patient also states that she has had some peripheral edema and mild shortness of breath. She states she had 1 episode of "trauma related heart attack" during her hypovolemia episode during her where a major blood vessel was lacerated. She has no ongoing cardiac history. Pain is described as cramping in nature causing her fatigue. She denies fever, chest pain, headache, URI symptoms, upper abdominal pain, left-sided abdominal pain, dysuria, urinary frequency, gross hematuria, syncope, near syncope, known sick contacts, travel history, or any other signs or symptoms at this time. Remainder of ROS is negative.. Historical: - Allergies: 08:02 No Known Allergies; kc6 - PMHx: 08:02 chronic back pain; depressive disorder; GI Bleed; heart attack due to trauma; Kidney kc6 stones; Migraine; - PSHx: 08:02 section; Emergency laparotomy; kc6 - Immunization history:: Client reports receiving the 2nd dose of the Covid vaccine, Flu vaccine is not up to date. - Social history:: Smoking status: Patient denies any tobacco usage or history of. ROS: 07:56 Constitutional: Negative for fever, chills, and weight loss, Eyes: Negative for injury, sp3 pain, redness, and discharge, ENT: Negative for injury, pain, and discharge, Neck: Negative for injury, pain, and swelling, Cardiovascular: Negative for chest pain, palpitations, and edema, Respiratory: Negative for shortness of breath, cough, wheezing, and pleuritic chest pain, Back: Negative for injury and pain, : Negative for injury, bleeding, discharge, and swelling, MS/Extremity: Negative for injury and deformity, Skin: Negative for injury, rash, and discoloration, Neuro: Negative for headache, weakness, numbness, tingling, and seizure, Psych: Negative for depression, anxiety, suicide ideation, homicidal ideation, and hallucinations, Allergy/Immunology: Negative for hives, rash, and allergies, Endocrine: Negative for neck swelling, polydipsia, polyuria, polyphagia, and marked weight changes, 07:56 All other systems are negative, Exam: 07:57 Constitutional: This is a well developed, well nourished patient who is awake, alert, sp3 and in no acute distress. Head/Face: Normocephalic, atraumatic. Eyes: Pupils equal round and reactive to light, extra-ocular motions intact. Lids and lashes normal. Conjunctiva and sclera are non-icteric and not injected. Cornea within normal limits. Periorbital areas with no swelling, redness, or edema. ENT: Nares patent. No nasal discharge, no septal abnormalities noted. External auditory canals are clear. Oropharynx with no redness, swelling, or masses, exudates, or evidence of obstruction, uvula midline. Mucous membranes moist. Neck: Trachea midline, no thyromegaly or masses palpated, and no cervical lymphadenopathy. Supple, full range of motion without nuchal rigidity, or vertebral point tenderness. No Meningismus. Chest/axilla: Normal chest wall appearance and motion. Nontender with no deformity. No lesions are appreciated. Cardiovascular: Regular rate and rhythm with a normal S1 and S2. No gallops, murmurs, or rubs. Normal PMI, no JVD. No pulse deficits. Respiratory: Lungs have equal breath sounds bilaterally, clear to auscultation and percussion. No rales, rhonchi or wheezes noted. No increased work of breathing, no retractions or nasal flaring. Back: No spinal tenderness. No costovertebral tenderness. Full range of motion. Skin: Warm, dry with normal turgor. Normal color with no rashes, no lesions, and no evidence of cellulitis. MS/ Extremity: Pulses equal, no cyanosis. Neurovascular intact. Full, normal range of motion. Neuro: Awake and alert, GCS 15, oriented to person, place, time, and situation. Cranial nerves II-XII grossly intact. Motor strength 5/5 in all extremities. Sensory grossly intact. Cerebellar exam normal. Normal gait. Psych: Awake, alert, with orientation to person, place and time. Behavior, mood, and affect are within normal limits. 07:57 Abdomen/GI: Patient has right lower quadrant abdominal pain and right CVA tenderness. Remainder of abdominal exam is negative. Nonsurgical abdomen noted., 08:51 ECG was reviewed by the Attending Physician. EKG demonstrates normal sinus rhythm at 60 sp3 bpm with normal intervals, normal QRS, normal axis, normal ST/T-segment's without evidence of acute ischemia. Vital Signs: 08:00 BP 117 / 75; Pulse 65; Resp 18 S; Temp 98.2(O); Pulse Ox 95% on R/A; Weight 96.16 kg kc6 (R); Height 5 ft. 2 in. (R); 08:41 BP 102 / 66; Pulse 65; Resp 18; Pulse Ox 98% on 2 lpm NC; ph 09:42 BP 113 / 64; Pulse 70; Resp 17 S; Pulse Ox 100% on 2 lpm NC; kc6 08:00 Body Mass Index 38.77 (96.16 kg, 157.48 cm) kc6 MDM: 08:00 Data reviewed: vital signs, nurses notes, lab test result(s), EKG, radiologic studies. sp3 ED course: 42-year-old with complex surgical history now presents with right lower quadrant and right flank pain. Differential diagnosis includes kidney stone, UTI, pyelonephritis, combination stone/infection, appendicitis, cholecystitis, intestinal pathology, among others. I am not highly suspicious for PHARMACOEPIDEMIOLOGIST pathology or vascular pathology including aortic dissection or aneurysm. Work-up will include laboratory values, chest x-ray, EKG, CT scan of the abdomen and pelvis and general observation. Dilaudid and Zofran for pain control as needed. I also not highly suspicious for acute coronary syndrome or PE however patient did have mild subjective shortness of breath though objectively on exam I find no findings.. 08:02 Patient medically screened. sp3 09:45 ED course: Work-up is negative including laboratory values and CT scan including chest sp3 x-ray. Patient feels better with interventions and there is no emergent pathology or cause for her abdominal pain currently. We will safely discharge patient home with follow-up to her PCP with no further intervention or medication indicated.. 02/19 07:54 Order name: CBC with Diff; Complete Time: 08:51 sp3 02/19 07:54 Order name: CMP; Complete Time: 08:51 sp3 02/19 07:54 Order name: Lipase; Complete Time: 08:51 sp3 02/19 07:54 Order name: Test, Urine; Complete Time: 08:51 sp3 02/19 07:54 Order name: Urinalysis w/ reflexes; Complete Time: 08:51 sp3 02/19 07:54 Order name: NT PRO-BNP; Complete Time: 08:51 sp3 02/19 07:54 Order name: Troponin HS; Complete Time: 08:51 sp3 02/19 07:54 Order name: CT Abd/Pelvis - IV Contrast Only; Complete Time: 09:45 sp3 02/19 07:54 Order name: XRAY Chest (1 view); Complete Time: 09:45 sp3 02/19 07:54 Order name: EKG; Complete Time: 07:54 sp3 02/19 07:54 Order name: IV Saline Lock; Complete Time: 08:24 sp3 02/19 07:54 Order name: Labs collected and sent; Complete Time: 08:24 sp3 02/19 07:54 Order name: Cardiac monitoring; Complete Time: 08:41 sp3 02/19 07:54 Order name: EKG - Nurse/Tech; Complete Time: 08:41 sp3 Administered Medications: 08:24 Drug: NS 0.9% IV 1000 ml IV at 1 bolus Per protocol; 1000 mL bolus Route: IV; Rate: 1 kc6 bolus; Site: right antecubital; 09:56 Follow up: Response: No adverse reaction; IV Status: Completed infusion; IV Intake: kc6 1000ml 08:24 Drug: Ondansetron IVP 4 mg IVP once; over 2 minutes Route: IVP; Site: right antecubital;kc6 09:17 Follow up: Response: No adverse reaction; Nausea is decreased kc6 08:24 Drug: HYDROmorphone IVP 1 mg IVP once Route: IVP; Site: right antecubital; kc6 09:17 Follow up: Response: No adverse reaction; Pain is decreased; RASS: Alert and Calm (0) kc6 Disposition Summary: 02/19/23 09:46 Discharge Ordered Notes: Location: Home sp3 Condition: Stable sp3 Diagnosis - Abdominal pain, Generalized sp3 Followup: sp3 - With: Private Physician - When: Upon discharge from the Emergency Department - Reason: Continuance of care Discharge Instructions: - Discharge Summary Sheet sp3 - Abdominal Pain, Adult sp3 Forms: - Medication Reconciliation Form sp3 - Thank You Letter sp3 - Antibiotic Education sp3 - Prescription Opioid Use sp3 - Patient Portal Instructions sp3 - Leadership Thank You Letter sp3 Signatures: Dispatcher [employer] Violeta Sarabia MD MD sp3 Susannah Hameed RN RN kc6
--- NOTE | 2023-02-19 09:47 | ER ---
Nurse's Notes [facility] Name: Yohana Reeves Age: 42 yrs Sex: Female : 1980 Arrival Date: 02/19/2023 Time: 07:41 Bed 2 Private MD: Edd Friedman Diagnosis: Abdominal pain, Generalized Presentation: 02/19 08:00 Chief complaint: Patient states: right flank pain with n/v and sob and difficulty kc6 urinating. Coronavirus screen: At this time, the client does not indicate any symptoms associated with coronavirus-19. Ebola Screen: No symptoms or risks identified at this time. Initial Sepsis Screen: Does the patient meet any 2 criteria? No. Patient's initial sepsis screen is negative. Does the patient have a suspected source of infection? No. Patient's initial sepsis screen is negative. Risk Assessment: Do you want to hurt yourself or someone else? Patient reports no desire to harm self or others. Onset of symptoms was February 19, 2023. 08:00 Method Of Arrival: Ambulatory kc6 08:00 Acuity: NICOLASA 3 kc6 Triage Assessment: 08:02 General: Appears in no apparent distress. comfortable, Behavior is calm, cooperative, kc6 appropriate for age. Pain: Complains of pain in right flank. EENT: No signs and/or symptoms were reported regarding the EENT system. Neuro: Level of Consciousness is awake, alert, obeys commands, Oriented to person, place, time, situation, Appropriate for age. Cardiovascular: Capillary refill < 3 seconds. Respiratory: Airway is patent Trachea midline Respiratory effort is even, unlabored, Respiratory pattern is regular, symmetrical. GI: Abdomen is flat, non-distended, Bowel sounds present X 4 quads. Abd is soft and non tender X 4 quads. Reports nausea, Patient currently denies vomiting. : Reports inability to void. Derm: No signs and/or symptoms reported regarding the dermatologic system. Skin is intact, is healthy with good turgor, Skin is pink, warm \T\ dry. Musculoskeletal: No signs and/or symptoms reported regarding the musculoskeletal system. Circulation, motion, and sensation intact. Capillary refill < 3 seconds, Range of motion: intact in all extremities. Historical: - Allergies: 08:02 No Known Allergies; kc6 - PMHx: 08:02 chronic back pain; depressive disorder; GI Bleed; heart attack due to trauma; Kidney kc6 stones; Migraine; - PSHx: 08:02 section; Emergency laparotomy; kc6 - Immunization history:: Client reports receiving the 2nd dose of the Covid vaccine, Flu vaccine is not up to date. - Social history:: Smoking status: Patient denies any tobacco usage or history of. Screenin:04 [facility] ED Fall Risk Assessment (Adult) History of falling in the last 3 months, kc6 including since admission No falls in past 3 months (0 pts) Confusion or Disorientation No (0 pts) Intoxicated or Sedated No (0 pts) Impaired Gait No (0 pts) Mobility Assist Device Used No (0 pt) Altered Elimination No (0 pt) Score/Fall Risk Level 0 - 2 = Low Risk. Abuse screen: Denies threats or abuse. Denies injuries from another. Nutritional screening: No deficits noted. Tuberculosis screening: No symptoms or risk factors identified. Assessment: 08:04 Reassessment: please see triage assessment. [facility] 08:42 Reassessment: Patient appears in no apparent distress at this time. Patient and/or ph family updated on plan of care and expected duration. Pain level reassessed. Patient is alert, oriented x 3, equal unlabored respirations, skin warm/dry/pink. 09:42 Reassessment: Patient appears in no apparent distress at this time. No changes from [facility] previously documented assessment. Patient and/or family updated on plan of care and expected duration. Pain level reassessed. Patient is alert, oriented x 3, equal unlabored respirations, skin warm/dry/pink. Vital Signs: 08:00 BP 117 / 75; Pulse 65; Resp 18 S; Temp 98.2(O); Pulse Ox 95% on R/A; Weight 96.16 kg kc6 (R); Height 5 ft. 2 in. (R); 08:41 BP 102 / 66; Pulse 65; Resp 18; Pulse Ox 98% on 2 lpm NC; ph 09:42 BP 113 / 64; Pulse 70; Resp 17 S; Pulse Ox 100% on 2 lpm NC; 6 08:00 Body Mass Index 38.77 (96.16 kg, 157.48 cm) [facility] ED Course: 07:44 Patient arrived in ED. mr 07:45 Edd Friedman MD is Private Physician. mr 07:46 Violeta Shin MD is Attending Physician. sp3 07:50 Susannah Hameed, FÁTIMA is Primary Nurse. kc6 08:02 Triage completed. kc6 08:02 Arm band placed on. kc6 08:04 Patient has correct armband on for positive identification. Placed in gown. Bed in low kc6 position. Call light in reach. Side rails up X2. Client placed on continuous cardiac and pulse oximetry monitoring. NIBP monitoring applied. organisation and methods analyst on. 09:08 CT Abd/Pelvis - IV Contrast Only In Process Unspecified. EDMS 09:17 XRAY Chest (1 view) In Process Unspecified. EDMS 09:57 No provider procedures requiring assistance completed. IV discontinued, intact, kc6 bleeding controlled, No redness/swelling at site. Pressure dressing applied. Administered Medications: 08:24 Drug: NS 0.9% IV 1000 ml IV at 1 bolus Per protocol; 1000 mL bolus Route: IV; Rate: 1 kc6 bolus; Site: right antecubital; 09:56 Follow up: Response: No adverse reaction; IV Status: Completed infusion; IV Intake: kc6 1000ml 08:24 Drug: Ondansetron IVP 4 mg IVP once; over 2 minutes Route: IVP; Site: right antecubital;kc6 09:17 Follow up: Response: No adverse reaction; Nausea is decreased kc6 08:24 Drug: HYDROmorphone IVP 1 mg IVP once Route: IVP; Site: right antecubital; kc6 09:17 Follow up: Response: No adverse reaction; Pain is decreased; RASS: Alert and Calm (0) kc6 Medication: 08:41 VIS not applicable for this client. ph Intake: 09:56 IV: 1000ml; Total: 1000ml. kc6 Outcome: 09:46 Discharge ordered by . sp3 09:57 Discharged to home ambulatory, with significant other, kc6 09:57 Condition: improved 09:57 Discharge instructions given to patient, Instructed on discharge instructions, follow up and referral plans. Demonstrated understanding of instructions, follow-up care, 09:57 Patient left the ED. kc6 Signatures: Dispatcher [employer] EDPA Cherelle Ellsworth, Reg Reg mr Jael Dang, FÁTIMA RN Violeta Shin MD MD sp3 Hameed, Susannah, RN RN kc6
[2023-02-19 10:13] VITALS: TEMP 98.2
[2023-02-19 10:16] VITALS: BP 113/64; O2SAT 100
--- NOTE | 2023-02-21 14:16 | EKG ---
Test Date: 2023-02-19 Test Time: 08:38:35 Internet Manager: EZRA MEASUREMENT RESULTS: Intervals: Rate: 60 MI: 120 QRSD: 84 QT: 438 QTc: 438 [place]: P: 56 MI: 120 QRS: 67 T: 36 INTERPRETIVE STATEMENTS: Normal sinus rhythm Normal ECG Compared to ECG 09/25/2022 11:09:29 Sinus tachycardia no longer present ST (T wave) deviation no longer present Possible ischemia no longer present Electronically Signed On 02-21-23 14:09:02 RESOLUTION REP by Jaciel Mathis
== END 2023-02-19 09:57 | disposition home or self-care (01) ==
LOC: ER 07:41
DX: R10.84 Generalized abdominal pain (principal); Z87.442 Personal history of urinary calculi
CPT/HCPCS: 96361; 93005; 85025; 81001; 36415; 81025; 84484; 83690; 80053; 83880; 74177; 71045; 96375; 96374; 99284; Q9967; J1170; J2405; J7030

== ENCOUNTER 2023-03-10 03:36 | Emergency (ER) | payer BC ==
--- OUTSIDE RECORDS SUMMARY | 2023-03-10 03:45 | XMS REPORT | Continuity of Care Document ---
:1980 Author Organization [facility] t Address [address] [place] [address] [place] [id number] Care Team Providers Name Role Phone None, None Primary Care Physician [facility] Attending Clinician Unavailable Joy Hitchcock RN Attending Clinician Unavailable Linnette Feng RN Attending Clinician Unavailable Ollie Tobar MD Attending Clinician Di Lundberg MD Attending Clinician Gadiraviola VARMA, Danielitya Attending Clinician Doctor Unassigned, [place] Attending Clinician Unavailable CAITIE GONZALEZ Attending Clinician Unavailable Caitie Klein Attending Clinician ANGEL ATKINS Attending Clinician Unavailable Elise Danielson NP Attending Clinician ELISE DANIELSON Attending Clinician Unavailable Pob, [facility] Attending Clinician Unavailable Ariel Britt MD Attending Clinician ARIEL BRITT Attending Clinician Unavailable Paul Soto MD Attending Clinician PAUL SOTO Attending Clinician Unavailable Alex Pierce Attending Clinician [phone] Megan Aranda Attending Clinician Ann Cardozo DO Attending Clinician Angelo Robles MD Attending Clinician Naun Bush MD Attending Clinician Mark Monterroso Attending Clinician Candido Isabel Attending Clinician CANDIDO RAMIREZ Attending Clinician Unavailable DILLON_LARRY_Stan_Edis Admitting Clinician Unavailable ERIC TAVARES Admitting Clinician Unavailable CAITIE GONZALEZ Admitting Clinician Unavailable Naun Bush MD Admitting Clinician CANDIDO RAMIREZ Admitting Clinician Unavailable Payers Payer Name Policy Type Policy Number Effective Date Expiration Date S [place] [id number] 2021 [facility] 00:00:00 TML GBRP CLAIMS [id number] 2017 00:00:00 [place] [id number] 2021 (PPO) 00:00:00 [facility] [id number] 2017 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 PLAN 00:00:00 [place] [...] nivers a a 0-28 ity of 00:00: [address] Branch Family Family Disease Active 2019-04 Univers history of history of 0-28 it y of early CAD [place] CAD [place] [facility] Chest pain Chest pain Disease Active 2019-04 U nivers 0-27 ity of 00:00: [place] [address] Medical Branch Obesity Obesity Disease Active 2019-04 Univers (BMI (BMI 0-27 ity of 30-39.9) 30-39.9) 00:00: [place] [facility] RLQ RLQ Disease Active Univers abdominal abdominal 9-24 ity of pain pain 00:00: [place] [facility] Anxiety Anxiety Disease Active Univers 9-24 ity of 00:00: [place] [facility] Chronic Chronic Disease Active Univers low back low back 9-24 ity of pain pain 00:00: [place] [facility] Hypertensi Hypertensi Problem Active [facility] ve ve 11-11 Medical disorder Disorder 00:00: 00 Hyperchole Hyperchole Problem Active [facility] sterolemia sterolemia 11-11 Me dical 00:00: 00 Anemia Anemia Problem Active [facility] 11-11 Medical 00:00: 00 Allergies, Adverse Reactions, Alerts Allergy Allergy Status Severity Reaction(s) Onset Inactive Treating Comm ents Source Name Type Date Date Clinician ally [place] Active [facility] subsalic 7-29 Clear ylate 00:00: [address] NO KNOWN Allergy [facility] Drug Active [facility] ALLERGIE Class ity of S [facility] Social History Social Habit Start Date Stop Date Quantity Comments Source Sexual orientation [facility] History of tobacco Cigarette Smoker Taoist use Hospital Gender identity Taoist [facility] History of Social 2022-09-30 2022-09-[address] function 00:00:00 00:00:00 Hospital Tobacco use and 2022-09-27 2022-09-27 Smokeless tobacco Me thodist exposure 00:00:00 00:00:00 non-user Hospital Exposure to 2022-06-23 2022-07-03 Not sure [facility] SARS-CoV-2 (event) 00:00:00 10:38:00 Alcohol intake 2021-10-15 2021-10-15 [facility] History [facility] 2020-02-08 2020-02-08 99 University o f Alcohol Frequency 00:00:00 00:00:00 [place] [facility] History SDNE 2020-02-08 2020-02-08 99 [place] o f Alcohol Std Drinks 00:00:00 00:00:00 [place] [facility] History SDOH 2020-02-08 2020-02-08 99 [place] o f Alcohol Binge 00:00:00 00:00:00 [facility] Branch Tobacco Comment 2020-02-07 2020-02-07 rarely Universit y of 00:00:00 00:00:00 [facility] Alcohol Comment 2020-02-07 2020-02-07 occasionally Univers ity of 00:00:00 00:00:00 [facility] Cigarettes smoked 2020-01-24 2020-01-24 Univers ity of current (pack per 00:00:00 00:00:00 [facility] ) - Reported Branch Sex Assigned At [birth year] NOREEN Fernandez 00:00:00 00:00:00 Medical Center Smoking Status Start Date Stop Date Source Heavy Tobacco Smoker [facility] riky Ex-smoker 2022-09-27 00:00:00 2022-09-27 00:00:00 [facility] Medications Ordered Filled Start Stop Current Ordering Indication Dosage Frequency Signature Comments Components Source Medication Medication Date Date Medication? Clinician (SIG) Name Name ALPRAZolam Yes 2mg QD Take 4 Metho di (XANAX) 0.5 6-21 tablets (2 st MG tablet 13:32: mg total) Hos denita 02 by mouth l daily. ARIPiprazol Yes aripiprazo Methodi e (ABILIFY) 6-[address] 5 MG tablet [...] daily. ARIPiprazol Yes aripiprazo Methodi e (ABILIFY) 6-[address] 5 MG tablet [...] AT BEDTIME NEEDED MAY MAKE DROWSY ALPRAZolam Yes 2mg QD Take 4 Metho di (XANAX) 0.5 6-21 tablets (2 st MG tablet 13:32: mg total) Hos denita 02 by mouth l daily. ARIPiprazol Yes aripiprazo Methodi e (ABILIFY) 6-[address] 5 MG tablet [...] TABLETS BY MOUTH ONCE DAILY NEEDED zolpidem 2022-0 Yes zolpidem Metho di (AMBIEN) 10 6-[address] mg tablet 13:32: tablet Hospit a 02 TAKE 1 l TABLET BY MOUTH AT BEDTIME NEEDED MAY MAKE DROWSY atorvastati 2022-3- No 40mg QD Take 1 Met hodi n (LIPITOR) 09-30- tablet (40 s t 40 mg 00:00: 04:59 mg total) Hospit a tablet 00 :00 by mouth l nightly for 30 days. butalbital- 2022-2022- No 1{tbl} Q4H Take 1 M ethodi acetaminoph -30 10- tablet by st en-caff 00:00: 04:59 mouth Hospita (FIORICET) 00 :00 every 4 l 50-325-40 (four) mg per hours as tablet needed for headaches for up to 30 days. atorvastati 2022-0 2022- No 40mg QD Take 1 Met hodi n (LIPITOR) 09-30- tablet (40 s t 40 mg 00:00: 04:59 mg total) Hospit a tablet 00 :00 by mouth l nightly for 30 days. butalbital- 2022-0 2022- No 1{tbl} Q4H Take 1 M ethodi acetaminoph 09-30- tablet by st en-caff 00:00: 04:59 mouth Hospita (FIORICET) 00 :00 every 4 l 50-325-40 (four) mg per hours as tablet needed for headaches for up to 30 days. atorvastati 2022-0 3- No 40mg QD Take 1 Met hodi n (LIPITOR) -30 10- tablet (40 s t 40 mg 00:00: 04:59 mg total) Hospit a tablet 00 :00 by mouth l nightly for 30 days. butalbital- 2022-2022- No 1{tbl} Q4H Take 1 M ethodi acetaminoph -30 10- tablet by st en-caff 00:00: 04:59 mouth [...] On Branch Thu09/15/22 at 0945, STAT dicyclomine 2022- No 20mg 20 mg, Uni vers (BENTYL) [...] Thu09/15/22 at 0945, STAT iopamidol 2022- No [id number] 130mL 130 mL, Univers (ISOVUE 09-15 Intravenou [...] Branch at 0845, LORENE dicyclomine 2022-0 Yes [id number] 20mg Take 1 Univers 20 mg 6-05 tablet by ity of tablet 00:00: mouth 4 00 (four) Medical times Branch daily as needed for Abdominal pain. dicyclomine 2022-0 Yes [id number] 20mg Take 1 Univers 20 mg 6-05 tablet by ity of tablet 00:00: mouth 4 00 (four) Medical times Branch daily as needed for Abdominal pain. cefdinir 2022-0 2022- No [id number] 300mg Take 1 Univers 300 mg 09-15 capsule by ity of capsule 00:00: 04:59 mouth [place] 00 :00 every 12 Medical (twelve) Branch hours for 7 days. lamoTRIgine 2022-0 Yes 200mg QD Take 200 U T (LaMICtal) 3-23 mg by [facility] 200 MG 11:03: mouth 1 tablet 19 [...] Take 1 UT -acetaminop 3-23 tablet by [facility] lth hen (Truro) 11:02: mouth if 5-325 MG 08 needed. [...] times daily as needed for Cough. benzonatate 2-0 Yes 100mg Take [address] (TESSALON) 7-05 mg by [facility] 100 MG 14:24: mouth 3 Medical capsule 12 (three) Center times daily as needed for Cough. meloxicam 2021-0 Yes 15mg QD Take [address] (MOBIC) 15 7-05 by mouth [facility] MG tablet 14:24: daily. Medica l [address] [place] [address] montelukast 2021-0 Yes 10mg QD Take [address] (SINGULAIR) 7-05 by mouth Luke s 10 mg 14:24: nightly. Medical tablet 12 [place] meloxicam 2021-0 Yes 15mg QD Take [address] (MOBIC) 15 7-05 by mouth [facility] MG tablet 14:24: daily. Medica l [address] [place] [address] montelukast 2021-0 Yes 10mg QD Take [address] (SINGULAIR) 7-05 by mouth Luke s 10 mg 14:24: nightly. Medical tablet [address] [place] [address] benzonatate 2021-0 Yes 100mg Take [address] (TESSALON) 7-05 mg by [facility] 100 MG 14:24: mouth 3 Medical capsule 12 (three) Center times daily as needed for Cough. meloxicam 2021-0 Yes 15mg QD Take [address] (MOBIC) 15 7-05 by mouth [facility] MG tablet 14:24: daily. Medica [address] montelukast 0 Yes 10mg QD Take [address] (SINGULAIR) 7-05 by mouth Luke s 10 mg 14:24: nightly. Medical tablet [address] [place] [address] benzonatate 2021-0 Yes 100mg Take [address] (TESSALON) 7-05 mg by [facility] 100 MG 14:24: mouth 3 Medical capsule 12 (three) Center times daily as needed for Cough. meloxicam 2-0 Yes 15mg QD Take [address] (MOBIC) 15 7-05 by mouth [facility] MG tablet 14:24: daily. Medica l [address] [place] [address] montelukast 2021-0 Yes 10mg QD Take [address] (SINGULAIR) 7-05 by mouth Luke s 10 mg 14:24: nightly. Medical tablet 12 [place] benzonatate 2021-0 Yes 100mg Take [address] (TESSALON) 7-05 mg by [facility] 100 MG 14:24: mouth 3 Medical capsule 12 (three) Center times daily as needed for Cough. meloxicam 2022-0 Yes 15mg QD Take [address] (MOBIC) 15 7-05 by mouth [facility] MG tablet 14:24: daily. Medica l [address] [place] [address] 0 Yes 10mg QD Take [address] (SINGULAIR) 7-05 by mouth Luke s 10 mg 14:24: nightly. Medical tablet [address] [place] [address] benzonatate 0 Yes 100mg Take [address] (TESSALON) 7-05 mg by [facility] 100 MG 14:24: mouth 3 Medical capsule 12 (three) Center times daily as needed for Cough. meloxicam 0 Yes 15mg QD Take [address] (MOBIC) 15 7-05 by mouth [facility] MG tablet 14:24: daily. Medica l [address] [place] [address] 0 Yes 10mg QD Take [address] (SINGULAIR) 7-05 by mouth Luke s 10 mg 14:24: nightly. Medical tablet [address] [place] [address] benzonatate 0 Yes 100mg Take [address] (TESSALON) 7-05 mg by [facility] 100 MG 14:24: mouth 3 Medical capsule 12 (three) Center times daily as needed for Cough. meloxicam 0 Yes 15mg QD Take [address] (MOBIC) 15 7-05 by mouth [facility]ukes MG tablet 14:24: daily. Medica l [address] [place] [address] Yes 10mg QD Take [address] (SINGULAIR) 7-05 by mouth Luke s 10 mg 14:24: nightly. Medical tablet [address] [place] [address] benzonatate 0 Yes 100mg Take [address] (TESSALON) 7-05 mg by [facility] 100 MG 14:24: mouth 3 Medical capsule 12 (three) Center times daily as needed for Cough. meloxicam 2021-0 Yes 15mg QD Take [address] (MOBIC) 15 7-05 by mouth [facility] MG tablet 14:24: daily. Medica l [address] [place] [address] Yes 10mg QD Take [address] (SINGULAIR) 7-05 by mouth Luke s 10 mg 14:24: nightly. Medical tablet [address] [place] [address] butalbital- 2021-0 2021- No 1{tbl} Take 1 C HI [...] ity of mg 19:15: 18:10 ONCE, 1 [place] 00 :00 dose, Mon Medical 07/23/20 at Branch 1415, STAT ondansetron 2020- No 4mg 4 mg, Slow Univers (ZOFRAN 07-23 IV Push, ity of (PF)) 18:00: 16:55 ONCE, 1 [place] injection 4 00 :00 dose, Mon Med ical mg 07/23/20 at Branch 1300, LORENE ketorolac 2020- No 30mg 30 mg, Unive rs (TORADOL) 07-23 Slow IV ity of injection 18:00: 16:55 Push, [place] 30 mg 00 :00 ONCE, 1 Medical dose, Mon Branch 07/23/20 at 1300, LORENE
Fa culty member approving Restricted medication : MEGAN BEAN iohexol 2020- No [id number] 120mL 120 mL, Univers (OMNIPAQUE 07-23 Intravenou it y of 350 17:15: 17:10 s, ONCE, 1 [place] BULK-150 00 :00 dose, Mon Medica l [...] by mouth. l disintegrat ing tablet ondansetron 2021-0 Yes 4mg Take 1 Meth nadya ODT 4-12 tablet (4 st (ZOFRAN-ODT 00:00: mg total) H ospita ) 4 MG 00 by mouth. l disintegrat ing tablet ondansetron 2020-0 Yes [id number] 4mg Take 1 Univers (ZOFRAN 4-12 tablet by ity of ODT) 4 mg 00:00: mouth [place] disintegrat 00 every 8 Medic al ing tablet (eight) Branch hours as needed for Nausea and Vomiting (N/V). ondansetron 2021-0 Yes [id number] 4mg Take 1 Univers (ZOFRAN 4-12 tablet by ity of ODT) 4 mg 00:00: mouth [place] disintegrat 00 every 8 Medic al ing tablet (eight) Branch hours as needed for Nausea and Vomiting (N/V). ondansetron 2021-0 Yes [id number] 4mg Take 1 Univers (ZOFRAN 4-12 tablet by ity of ODT) 4 mg 00:00: mouth [place] disintegrat 00 every 8 Medic al ing tablet (eight) Branch hours as needed for Nausea and Vomiting (N/V). ondansetron 2021-0 Yes [id number] 4mg Take 1 Univers (ZOFRAN 4-12 tablet by ity of ODT) 4 mg 00:00: mouth [place] disintegrat 00 every 8 Medic al ing tablet (eight) Branch hours as needed for Nausea and Vomiting (N/V). ondansetron 2021-0 Yes [id number] 4mg Take 1 Univers (ZOFRAN 4-12 tablet by ity of ODT) 4 mg 00:00: mouth [place] disintegrat 00 every 8 Medic al ing tablet (eight) Branch hours as needed for Nausea and Vomiting (N/V). ondansetron 2021-0 Yes [id number] 4mg Take 1 Univers (ZOFRAN 4-12 tablet by ity of ODT) 4 mg 00:00: mouth [place] disintegrat 00 every 8 Medic al ing tablet (eight) Branch hours as needed for Nausea and Vomiting (N/V). ondansetron 2021-0 Yes [id number] 4mg Take 1 Univers (ZOFRAN 4-12 tablet by ity of ODT) 4 mg 00:00: mouth [place] disintegrat 00 every 8 Medic al ing tablet (eight) Branch hours as needed for Nausea and Vomiting (N/V). ondansetron 2021-0 Yes [id number] 4mg Take 1 Univers (ZOFRAN 4-12 tablet by ity of ODT) 4 mg 00:00: mouth [place] disintegrat 00 every 8 Medic al ing tablet (eight) Branch hours as needed for Nausea and Vomiting (N/V). ondansetron 2021-0 Yes [id number] 4mg Take 1 Univers (ZOFRAN 4-12 tablet [...] STAT butalbital- 2020- No 1{tbl} 1 tablet, [facility] acetaminoph 04-27 Oral, ity of en-caff 21:30: 20:40 ONCE, 1 [place] (ESGIC) 00 :00 dose, Fri Medical 50-325-40 04/27/20 at [facility] ch mg tablet 1 1530, tablet [...] IV ity of (BENADRYL) 18:45: 17:53 Push, [place] injection 00 :00 ONCE, 1 Medical 25 mg dose, Fri Branch 04/27/20 at 1245, STAT metoclopram 2020- No 10mg 10 mg, Uni vers adarsh HCl 04-27 Slow IV ity of (REGLAN) 18:45: 17:53 Push, [place] injection 00 :00 ONCE, 1 Medical 10 [...] Fri Branch 04/27/20 at 1200, LORENE
[facility] : ANN CARDOZO nebivolol 2019-04 Yes Take by Unive rs HCl 0-28 mouth ity of (BYSTOLIC 19:30: daily. [place] ORAL) 22 Medical Branch zolpidem 2019-04 Yes 10mg Take 10 mg Uni vers (AMBIEN) 10 0-28 by mouth ity of mg tablet 19:30: at [place] [address] bedtime. Medical Branch FLUoxetine 2019-04 Yes 80mg Take 80 mg U nivers (PROZAC) 40 0-28 by mouth ity of mg capsule 19:30: daily. [place] 22 Medical Branch ARIPiprazol 2019-04 Yes 5mg Take 5 mg U nivers e (ABILIFY) 0-28 by mouth ity of 5 mg tablet 19:30: daily. [facility] 22 Medical Branch HYDROcodone 2019-04 Yes [...] 0-28 mouth ity of (BYSTOLIC 19:30: daily. [place] ORAL) 22 Medical Branch zolpidem 2019-04 Yes 10mg Take 10 mg Uni vers (AMBIEN) 10 0-28 by mouth ity of mg tablet 19:30: at [place] [address] bedtime. Medical Branch FLUoxetine 2019-04 Yes 80mg Take 80 mg U nivers (PROZAC) 40 0-28 by mouth ity of mg capsule 19:30: daily. [place] 22 Medical Branch ARIPiprazol 2019-04 Yes 5mg Take 5 mg U nivers e (ABILIFY) 0-28 by mouth ity of 5 mg tablet 19:30: daily. [facility] 22 Medical Branch HYDROcodone 2019-04 Yes [...] 0-28 mouth ity of (BYSTOLIC 19:30: daily. [place] ORAL) Medical Branch zolpidem 2019-04 Yes 10mg Take 10 mg Uni vers (AMBIEN) 10 0-28 by mouth ity of mg tablet 19:30: at [place] [address] bedtime. Medical Branch FLUoxetine 2019-04 Yes 80mg Take 80 mg U nivers (PROZAC) 40 0-28 by mouth ity of mg capsule 19:30: daily. Medical Branch ARIPiprazol 2019-04 Yes 5mg Take [...] 0-28 mouth ity of (BYSTOLIC 14:30: daily. [place] ORAL) Medical Branch zolpidem 2019-04 Yes 10mg Take 10 mg Uni vers (AMBIEN) 10 0-28 by mouth ity of mg tablet 14:30: at [place] [address] bedtime. Medical Branch FLUoxetine 2019-04 Yes 80mg Take 80 mg U nivers (PROZAC) 40 0-28 by mouth ity of mg capsule 14:30: daily. [place] [address] Medical Branch ARIPiprazol 2019-04 Yes 5mg Take 5 mg U nivers e (ABILIFY) 0-28 by mouth ity of 5 mg tablet 14:30: [place]. [place] 22 [facility] Branch HYDROcodone 2019-04 Yes 1{tbl} Take 1 [...] 0-28 mouth ity of (BYSTOLIC 14:30: daily. [place] ORAL) Medical Branch zolpidem 2019-04 Yes 10mg Take 10 mg Uni vers (AMBIEN) 10 0-28 by mouth ity of mg tablet 14:30: at [place] [address] bedtime. Medical Branch FLUoxetine 2019-04 Yes 80mg Take 80 mg U nivers (PROZAC) 40 0-28 by mouth ity of mg capsule 14:30: daily. [place] [address] Medical Branch ARIPiprazol 2019-04 Yes 5mg Take 5 mg U nivers e (ABILIFY) 0-28 by mouth ity of 5 mg tablet 14:30: daily. [facility] 22 [facility] HYDROcodone 2019-04 Yes 1{tbl} Take 1 [...] 0-28 mouth ity of (BYSTOLIC 14:30: daily. [place] [address] Medical Branch zolpidem 2019-04 Yes 10mg Take 10 mg Uni vers (AMBIEN) 10 0-28 by mouth ity of mg tablet 14:30: at [place] [address] bedtime. Medical Branch FLUoxetine 2019-04 Yes 80mg Take 80 mg U nivers (PROZAC) 40 0-28 by mouth ity of mg capsule 14:30: daily. [place] [address] Medical Branch ARIPiprazol 2019-04 Yes 5mg Take 5 mg U nivers e (ABILIFY) 0-28 by mouth ity of 5 mg tablet 14:30: daily. [facility] 22 Medical Branch HYDROcodone 2019-04 Yes [...] 0-28 mouth ity of (BYSTOLIC 14:30: daily. [place] ORAL) Medical Branch zolpidem 2019-04 Yes 10mg Take 10 mg Uni vers (AMBIEN) 10 0-28 by mouth ity of mg tablet 14:30: at [place] [address] bedtime. Medical Branch FLUoxetine 2019-04 Yes 80mg Take 80 mg U nivers (PROZAC) 40 0-28 by mouth ity of mg capsule 14:30: daily. [place] [address] Medical Branch ARIPiprazol 2019-04 Yes 5mg Take 5 mg U nivers e (ABILIFY) 0-28 by mouth ity of 5 mg tablet 14:30: daily. [facility] 22 Medical Branch HYDROcodone 2019-04 Yes [...] 0-28 mouth ity of (BYSTOLIC 14:30: daily. [place] ORAL) Medical Branch zolpidem 2019-04 Yes 10mg Take 10 mg Uni vers (AMBIEN) 10 0-28 by mouth ity of mg tablet 14:30: at [place] [address] bedtime. Medical Branch FLUoxetine 2019-04 Yes 80mg Take 80 mg U nivers (PROZAC) 40 0-28 by mouth ity of mg capsule 14:30: daily. [address] ARIPiprazol 2019-04 Yes 5mg Take 5 mg U nivers e (ABILIFY) 0-28 by mouth ity of 5 mg tablet 14:30: daily. [address] HYDROcodone 2019-04 Yes 1{tbl} Take 1 [...] 0-28 mouth ity of (BYSTOLIC 14:30: daily. [place] [address] Medical Branch zolpidem 2019-04 Yes 10mg Take 10 mg Uni vers (AMBIEN) 10 0-28 by mouth ity of mg tablet 14:30: at [place] [address] bedtime. Medical Branch FLUoxetine 2019-04 Yes 80mg Take 80 mg U nivers (PROZAC) 40 0-28 by mouth ity of mg capsule 14:30: daily. [address] ARIPiprazol 2019-04 Yes 5mg Take 5 mg U nivers e (ABILIFY) 0-28 by mouth ity of 5 mg tablet 14:30: daily. [address] HYDROcodone 2019-04 Yes 1{tbl} Take 1 [...] 0-28 mouth ity of (BYSTOLIC 14:30: daily. [place] [address] Medical Branch zolpidem 2019-04 Yes 10mg Take 10 mg Uni vers (AMBIEN) 10 0-28 by mouth ity of mg tablet 14:30: at [place] [address] bedtime. Medical Branch FLUoxetine 2019-04 Yes 80mg Take 80 mg U nivers (PROZAC) 40 0-28 by mouth ity of mg capsule 14:30: daily. [address] ARIPiprazol 2019-04 Yes 5mg Take 5 mg U nivers e (ABILIFY) 0-28 by mouth ity of 5 mg tablet 14:30: daily. [address] HYDROcodone 2019-04 Yes 1{tbl} Take 1 [...] 0-28 mouth ity of (BYSTOLIC 14:30: daily. [address] zolpidem 2019-04 Yes 10mg Take 10 mg Uni vers (AMBIEN) 10 0-28 by mouth ity of mg tablet 14:30: at [place] [address] bedtime. Medical Branch FLUoxetine 2019-04 Yes 80mg Take 80 mg U nivers (PROZAC) 40 0-28 by mouth ity of mg capsule 14:30: daily. [address] ARIPiprazol 2019-04 Yes 5mg Take 5 mg U nivers e (ABILIFY) 0-28 by mouth ity of 5 mg tablet 14:30: daily. [address] HYDROcodone 2019-04 Yes 1{tbl} Take 1 [...] Yes 40mg 40 mg, Unive rs (LOVENOX) 0 Subcutaneo ity of injection 14:00: [place], DAILY, [place] 40 mg 00 First dose Medical on Thu Branch 02/08/20 at 0900, Until Discontinu ed, Routine venlafaxine 2019-04 Yes 150mg 150 mg, Un carol XR (EFFEXOR 0- Oral, QAM ity of XR) 24 hr 13:00: WITH [place] capsule 150 00 BREAKFAST, Me dical mg First dose Branch on Thu02/08/20 at 0800, Until Discontinu ed, Routine zolpidem 2019-04 Yes 10mg 10 mg, Univers (AMBIEN) 0- Oral, QHS, ity o f tablet 10 02:00: First dose [place] mg 00 on Thu [facility] 02/07/20 Branch at 2100, Until Discontinu ed, Routine NaCl 0.9% 2019-04 2020- No IV Univers (NS) IV 002-07 Infusion, ity of infusion 02:00: 09:59 at 125 [place] 00 :00 mL/hr, Medical CONTINUOUS Branch , Starting Thu02/07/20 at 2100, Until Thu02/08/20 at 0459, Routine HYDROcodone 2019-04 Yes 1{tbl} 1 tablet, Univers -acetaminop 0-28 Oral, BID, it y of hen (NORCO 01:00: First dose [place] 5) 5-325 mg 00 on [facility] Medica l tablet 1 02/07/20 Branch tablet at 2000, Until Discontinu ed, Routine nitroglycer 2019-04 Yes .4mg 0.4 mg, Uni vers in Sublingual ity of (NITROSTAT) 00:22: , Q5MIN [place] as sublingual 18 PRN, Medical tablet 0.4 Starting Branc h mg [facility] 02/07/20 at 192, Until Discontinu ed, Routine, Chest pain morpHINE 2019-04 2020- No 2mg 2 mg, Slow Un carol injection 2 02-08 IV Push, ity of mg 00:21: 00:20 [facility] [place] 44 :44 Starting Medical [facility] Branch 02/07/20 at 192, Until 02/08/20 at 1920, Routine, Pain (scale 7-10), Chest pain acetaminoph 2019-04 2020- No 1{tbl} 1 tablet, Univers en-codeine 02-09 Oral, ity of (TYLENOL 00:21: 00:20 [facility] [place] #3[facility] 300-30 33 :33 Starting Medic al mg tablet 1 [facility] tablet 02/07/20 at 192, Until Cons[place]o 02/09/20 at 1920, Routine, Pain (scale 4-6) acetaminoph 2019-04 Yes 650mg 650 mg, Un carol en Oral, ity of (TYLENOL) 00:21: [facility], [place] tablet 650 31 Starting Medic al mg [facility] 02/07/20 at 192, Until Discontinu ed, Routine, Pain (scale 1-3) FENTanyl PF 2019-04 2020- No 100ug 100 mcg, Univers (SUBLIMAZE 02-06 Slow IV ity o f (PF)) 23:30: 22:26 Push, [place] injection 00 :00 ONCE, 1 Medical 100 mcg dose, [facility] 02/07/20 at 1830, STAT nitroglycer 2019-04- No .4mg 0.4 mg, Un carol in 02-06 Sublingual ity of (NITROSTAT) 22:30: 21:30 , ONCE, 1 [place] sublingual 00 :00 dose, Tue Medi riky tablet 0.4 02/07/20 Branc h mg at 1730, LORENE acetaminoph 2019-04 2020- No 975mg 975 mg, U nivers en 0-27 02-06 Oral, ity of (TYLENOL) 22:30: 21:30 ONCE, 1 [place] tablet 975 00 :00 dose, Tue Medi riky mg 02/07/20 Branch at 1730, LORENE iohexol 2019-04 2020- No 120mL 120 mL, Unive rs (OMNIPAQUE 0-02-06 Intravenou it y of 350 21:30: 21:30 s, ONCE, 1 [place] BULK-150 00 :00 dose, Tue Medica l mL) 02/07/20 Branch injection at 1630, 120 mL Routine ondansetron 2019-04 2020- No 4mg 4 mg, Slow Univers (ZOFRAN 0-27 -27 IV Push, ity of (PF)) 21:30: 20:30 ONCE, 1 [place] injection 4 00 :00 dose, Tue Med ical mg 02/07/20 Branch at 1630, LORENE morpHINE 2019-04 2020- No 4mg 4 mg, Slow Un carol injection 4 0-27 -27 IV Push, ity of mg 21:30: 20:30 ONCE, 1 [place] 00 :00 dose, [facility] 02/07/20 Branch at 1630, STAT morpHINE 2019- 2020- No 4mg 4 mg, Slow Un carol injection 4 0-14 10-14 IV Push, ity of mg 02:15: 01:13 ONCE, 1 [place] 00 :00 dose, [facility] 01/24/20 Branch at 2115, STAT ondansetron 2019-04 2020- No 4mg 4 mg, Slow Univers (ZOFRAN 0-14 10-14 IV Push, ity of (PF)) 02:15: 01:13 ONCE, 1 [place] injection 4 00 :00 dose, Tue Med ical mg 01/24/20 Branch at 2115, LORENE HYDROcodone 2019- Yes 1{tbl} Take 1 Un carol -acetaminop [...] ity of (PF)) 01:00: 23:47 ONCE, 1 [place] injection 4 00 :00 dose, [facility] Med ical mg 01/24/20 Branch at 1999, LORENE morpHINE 2019-04- No 4mg 4 mg, Slow Un carol injection 4 0-14 10-13 IV Push, ity of mg 01:00: 23:47 ONCE, 1 [place] 00 :00 dose, [facility] 01/24/20 Branch at 1999, STAT iohexol 2019-04 2020- No 120mL 120 mL, Unive rs (OMNIPAQUE 0-13 10-13 Intravenou it y of 350 23:45: 23:45 s, ONCE, 1 [place] BULK-150 00 :00 dose, [facility] Medica l mL) 01/24/20 Branch injection at 1845, 120 mL Routine zolpidem 2019-04 Yes 10mg Take 10 mg Uni vers (AMBIEN) 10 0-13 by mouth ity of mg tablet 22:12: at [place] [address] bedtime. Medical Branch FLUoxetine 2019-04 Yes 80mg Take 80 mg U nivers (PROZAC) 40 0-13 by mouth ity of mg capsule 22:12: daily. [place] [address] Medical Branch ARIPiprazol 2019-04 Yes 5mg Take [...] Medical tablet times Branch daily. traMADoL 50 2020-1 Yes [id number] 50mg Take 1 Univ ers mg tablet 0-13 tablet by ity o f 00:00: mouth [place] 00 every 6 Medical (six) Branch hours as needed for Pain (scale 4-6). Indication s: acute pain ondansetron 2020-1 Yes [id number] 8mg Take 2 Univers 4 mg tablet 0-13 tablets by it y of 00:00: mouth [place] 00 every 8 Medical (eight) Branch hours as needed for Nausea and Vomiting (N/V). ondansetron 2020-1 Yes [id number] 8mg Take 2 Univers 4 mg tablet 0-13 tablets by it y of 00:00: mouth [place] 00 every 8 Medical (eight) Branch hours as needed for Nausea and Vomiting (N/V). ondansetron 2020-1 Yes [id number] 8mg Take 2 Univers 4 mg tablet 0-13 tablets by it y of 00:00: mouth [place] 00 every 8 Medical (eight) Branch hours as needed for Nausea and Vomiting (N/V). ondansetron 2020-1 Yes [id number] 8mg Take 2 Univers 4 mg tablet 0-13 tablets by it y of 00:00: mouth [place] 00 every 8 Medical (eight) Branch hours as needed for Nausea and Vomiting (N/V). ondansetron 2020-1 Yes [id number] 8mg Take 2 Univers 4 mg tablet 0-13 tablets by it y of 00:00: mouth [place] 00 every 8 Medical (eight) Branch hours as needed for Nausea and Vomiting (N/V). ondansetron 2020-1 Yes [id number] 8mg Take 2 Univers 4 mg tablet 0-13 tablets by it y of 00:00: mouth [place] 00 every 8 Medical (eight) Branch hours as needed for Nausea and Vomiting (N/V). ondansetron 2020-1 Yes [id number] 8mg Take 2 Univers 4 mg tablet 0-13 tablets by it y of 00:00: mouth [place] 00 every 8 Medical (eight) Branch hours as needed for Nausea and Vomiting (N/V). ondansetron 2020-1 Yes [id number] 8mg Take 2 Univers 4 mg tablet 0-13 tablets by it y of 00:00: mouth [place] 00 every 8 Medical (eight) Branch hours as needed for Nausea and Vomiting (N/V). ondansetron 2019-04 Yes [id number] 8mg Take 2 Univers 4 mg tablet 0-13 tablets by it y of 00:00: mouth [place] 00 every 8 Medical (eight) Branch hours as needed for Nausea and Vomiting (N/V). ondansetron 2019-04 Yes [id number] 8mg Take 2 Univers 4 mg tablet 0-13 tablets by it y of 00:00: mouth [place] 00 every 8 Medical (eight) Branch hours as needed for Nausea and Vomiting (N/V). ondansetron 2019-04 Yes [id number] 8mg Take 2 Univers 4 mg tablet 0-13 tablets by it y of 00:00: mouth [place] 00 every 8 Medical (eight) Branch hours as needed for Nausea and Vomiting (N/V). ciprofloxac 2019-04 Yes [id number] 500mg Take 1 Univers in HCl 500 [...] Indication s: acute pain ondansetron 2019-04 Yes [id number] 8mg Take 2 Univers 4 mg tablet [...] Indication s: acute pain ciprofloxac 2019-04- No [id number] 500mg Take 1 Univers in HCl 500 [...] of 350 18:37: 18:35 s, ONCE, 1 [place] BULK-150 00 :00 dose, Consuelo Medica l mL) 06/02/19 at Branch injection 1300, 120 mL Routine NaCl 0.9% 0 2019- No 1000mL at 999 Uni vers (NS) bolus 2- 02-20 mL/hr, ity of infusion 17:30: 19:11 1,000 mL, [place] as 1,000 mL 00 :00 IV Medical Infusion, Branch ONCE, 1 dose, Consuelo 06/02/19 at 1130, LORENE dicyclomine 2020-0 Yes [id number] 10mg Take 1 Univers (BENTYL) 10 2-20 capsule by it y of mg capsule 00:00: [place] (four) Medical times Branch daily as needed for Abdominal pain. dicyclomine 2020-0 Yes [id number] 10mg Take 1 Univers (BENTYL) 10 2-20 capsule by it y of mg capsule 00:00: mouth [place] (four) Medical times Branch daily as needed for Abdominal pain. dicyclomine 2020-0 2020- No [id number] 10mg Take 1 Univers (BENTYL) 10 2-20 10-13 capsule by i ty of mg capsule 00:00: 00:00 mouth 4 [place] 00 :00 (four) Medical times Branch daily as needed for Abdominal pain. traMADol 2018-0 Yes [id number] 50mg Take 1 Univers (ULTRAM) 50 9-28 [id number] tablet by i ty of mg tablet 00:00: mouth [place] 00 every 8 Medical (eight) Branch hours as needed for Pain (scale 4-6). traMADol Yes [id number] 50mg Take 1 Univers (ULTRAM) 50 01-08 [id number] tablet by i ty of mg tablet 00:00: mouth [place] 00 every 8 Medical (eight) Branch hours as needed for Pain (scale 4-6). traMADol 2020- No [id number] 50mg Take 1 Univers (ULTRAM) 50 01-08 [id number] tablet by ity of mg tablet 00:00: 00:00 mouth [place] 00 :00 every 8 Medical (eight) Branch hours as needed for Pain (scale 4-6). nebivolol Yes Take by Unive rs HCl - mouth ity of (BYSTOLIC 20:20: daily. [place] ORAL) Medical Branch zolpidem Yes 10mg Take 10 mg Uni vers (AMBIEN) 10 - by mouth ity of mg tablet 20:20: at [place] [address] bedtime. Medical Branch HYDROcodone Yes 1{tbl} Take [...] 25mg Take 25 mg Univers 25 mg - by mouth ity of tablet 20:20: at bedtime [place] [address] as needed Medical for Branch Itching or Anxiety. nebivolol Yes Take by Unive rs HCl - mouth ity of (BYSTOLIC 20:20: daily. [place] ORAL) Medical Branch zolpidem Yes 10mg Take 10 mg Uni vers (AMBIEN) 10 - by mouth ity of mg tablet 20:20: at [place] [address] bedtime. Medical Branch HYDROcodone Yes 1{tbl} Take 1 Un carol -acetaminop 01-06 tablet by ity of hen 7.5-325 20:20: mouth 2 [place] as mg per (two) Medical tablet times Branch daily. FLUoxetine Yes 60mg Take 60 mg U nivers (PROZAC) 40 01-06 by mouth ity of mg capsule 20:20: daily. [place] [facility] ARIPiprazol Yes 5mg Take 5 mg U nivers e (ABILIFY) 01-06 by mouth ity of 5 mg tablet 20:20: [place]. [place] hydrOXYzine Yes 25mg Take 25 mg Univers 25 mg 01-06 by mouth ity of tablet 20:20: at bedtime [place] [address] as needed Medical for Branch Itching or Anxiety. nebivolol Yes Take by Unive rs HCl 01-06 mouth ity of (BYSTOLIC 20:20: daily. [place] ORAL) Medical Branch Abilify Abilify No Abilify [...] Source Systolic blood 2022-09-15 17:00:00 107 mm[Hg] [facility] [place] [facility] Diastolic blood 2022-09-15 17:00:00 79 mm[Hg] [facility] [place] Heart rate 2022-09-15 17:00:00 86 /min [facility] Respiratory rate 2022-09-15 17:00:00 16 /min [facility] Oxygen saturation in 2022-09-15 17:00:00 100 /min [facility] Arterial blood by [facility] Pulse oximetry Branch Body temperature 2022-09-15 13:03:00 36.61 Elodia [facility] Body weight 2022-09-15 13:03:00 79.379 kg [facility] BMI 2022-09-15 13:03:00 32.01 kg/m2 [facility] Systolic blood 2022-07-03 15:56:00 117 mm[Hg] [facility] pressure Diastolic blood 2022-07-03 15:56:00 78 mm[Hg] [...] BMI (Body Mass 2020-08-24 00:00:00 32 kg/m2 [facility] Index) BP Systolic 2020-08-24 00:00:00 124 mm[Hg] Ting rosado Body Weight 2020-08-24 00:00:00 175 [lb_av] Ting rosado Heart rate 2020-07-23 19:30:00 75 /min [facility]i ty [facility] [place] [facility] [place] Oxygen saturation in 2020-07-23 19:30:00 100 /min University of Arterial blood by [place] Rocketick riky Pulse oximetry Branch Systolic blood 2020-07-23 18:00:00 142 mm[Hg] Univer sity of pressure [place] [facility] Diastolic blood 2020-07-23 18:00:00 97 mm[Hg] Unive rsity of pressure [place] [facility] Respiratory rate 2020-07-23 18:00:00 20 /min Univ ersity of [place] [facility] Body temperature 2020-07-23 16:37:00 37.11 Elodia Univ ersity [facility] [place] [facility] Body height 2020-07-23 16:37:00 157.5 cm [facility]i ty [facility] [place] [facility] Body weight 2020-07-23 16:37:00 79.379 kg [facility] [place] [facility] BMI 2020-07-23 16:37:00 32.01 kg/m2 [facility] [place] [facility] Heart rate 2020-07-23 19:30:00 75 /min [facility] [place] [facility] Oxygen saturation in 2020-07-23 19:30:00 100 /min University of Arterial blood by [place] R[facility] riky Pulse oximetry Branch Systolic blood 2020-07-23 18:00:00 142 mm[Hg] Univer sity of pressure [facility] Diastolic blood 2020-07-23 18:00:00 97 mm[Hg] Unive rsity of pressure [facility] Branch Respiratory rate 2020-07-23 18:00:00 20 /min Univ ersity of [place] [facility] Body temperature 2020-07-23 16:37:00 37.11 Elodia Univ ersity of [place] [facility] Body height 2020-07-23 16:37:00 157.5 cm [facility]i ty [facility] [place] [facility] Body weight 2020-07-23 16:37:00 79.379 kg [facility] [place] [facility] BMI 2020-07-23 16:37:00 32.01 kg/m2 [facility] [place] [facility] Systolic blood 2020-04-27 23:25:00 112 mm[Hg] Univer sity of pressure [place] [facility] Diastolic blood 2020-04-27 23:25:00 87 mm[Hg] Unive rsity of pressure [place] [facility] Heart rate 2020-04-27 23:25:00 78 /min [facility]i ty [facility] [place] [facility] Respiratory rate 2020-04-27 23:25:00 18 /min Univ ersity of [place] [facility] Oxygen saturation in 2020-04-27 23:25:00 99 /min University of Arterial blood by [place] [facility] riky Pulse oximetry Branch Body temperature 2020-04-27 17:24:00 37.06 Elodia Univ ersity of [place] [facility] Body height 2020-04-27 17:24:00 157.5 cm [facility] [place] [facility] Body weight 2020-04-27 17:24:00 77.111 kg [facility] [place] [facility] BMI 2020-04-27 17:24:00 31.09 kg/m2 [facility] [place] [facility] Systolic blood 2020-04-27 23:25:00 112 mm[Hg] Univer sity of pressure [place] [facility] Diastolic blood 2020-04-27 23:25:00 87 mm[Hg] Unive rsity of pressure [place] [facility] Heart rate 2020-04-27 23:25:00 78 /min [facility] ty [facility] [place] [facility] Respiratory rate 2020-04-27 23:25:00 18 /min Univ ersity of [place] [facility] Oxygen saturation in 2020-04-27 23:25:00 99 /min University of Arterial blood by [place] [facility] ri[facility] Pulse oximetry Branch Body temperature 2020-04-27 17:24:00 37.06 Elodia Univ ersity of [place] [facility] Body height 2020-04-27 17:24:00 157.5 cm [facility] [place] [facility] Body weight 2020-04-27 17:24:00 77.111 kg [facility] [place] [facility] BMI 2020-04-27 17:24:00 31.09 kg/m2 [facility] [place] [facility] Systolic blood 2020-02-08 16:45:00 114 mm[Hg] Univer sity of pressure [place] [facility] Diastolic blood 2020-02-08 16:45:00 84 mm[Hg] Unive rsity of pressure [place] [facility] Heart rate 2020-02-08 16:45:00 80 /min [facility] [place] [facility] Body temperature 2020-02-08 16:45:00 36.06 Elodia Univ ersity of [place] [facility] Respiratory rate 2020-02-08 16:45:00 20 /min Univ ersity of [place] [facility] Oxygen saturation in 2020-02-08 16:45:00 96 /min University of Arterial blood by [facility] riky Pulse oximetry Branch [facility] 2020-02-08 00:37:00 33.59 kg/m2 [facility] [place] [facility] Body height 2020-02-08 00:37:00 152.4 cm [facility] [place] [facility] Body weight 2020-02-08 00:37:00 78.019 kg [facility] [place] [facility] Systolic blood 2020-02-08 16:45:00 114 mm[Hg] Univer sity of pressure [place] [facility] Diastolic blood 2020-02-08 16:45:00 84 mm[Hg] Unive rsity of pressure [place] [facility] Heart rate 2020-02-08 16:45:00 80 /min [facility] [place] [facility] Body temperature 2020-02-08 16:45:00 36.06 Elodia Univ ersity of [place] [facility] Respiratory rate 2020-02-08 16:45:00 20 /min Univ ersity of [place] [facility] Oxygen saturation in 2020-02-08 16:45:00 96 /min University of Arterial blood by [facility] riky Pulse oximetry Branch [facility] 2020-02-08 00:37:00 33.59 kg/m2 [facility] [place] [facility] Body height 2020-02-08 00:37:00 152.4 cm [facility] [place] [facility] Body weight 2020-02-08 00:37:00 78.019 kg [facility] [place] [facility] Systolic blood 2020-01-25 02:00:00 134 mm[Hg] Univer sity of pressure [place] [facility] Diastolic blood 2020-01-25 02:00:00 94 mm[Hg] Unive rsity of pressure [place] [facility] Heart rate 2020-01-25 02:00:00 83 /min [facility]i ty [facility] [place] [facility] Oxygen saturation in 2020-01-25 02:00:00 96 /min University of Arterial blood by [place] riky Pulse oximetry Branch Respiratory rate 2020-01-25 01:00:00 16 /min Univ ersity of [place] [facility] Body temperature 2020-01-24 22:09:00 37.11 Elodia Univ ersity [facility] [place] [facility] Body height 2020-01-24 22:09:00 157.5 cm [facility] [place] [facility] Body weight 2020-01-24 22:09:00 78.336 kg [facility] [place] [facility] BMI 2020-01-24 22:09:00 31.59 kg/m2 [facility] [place] [facility] Systolic blood 2020-01-25 02:00:00 134 mm[Hg] Univer sity of pressure [place] [facility] Diastolic blood 2020-01-25 02:00:00 94 mm[Hg] Unive rsity of pressure [place] [facility] Heart rate 2020-01-25 02:00:00 83 /min [facility] [place] [facility] Oxygen saturation in 2020-01-25 02:00:00 96 /min University of Arterial blood by [facility] riky Pulse oximetry Branch Respiratory rate 2020-01-25 01:00:00 16 /min Univ ersity of [place] [facility] Body temperature 2020-01-24 22:09:00 37.11 Elodia Univ ersity [facility] [place] [facility] Body height 2020-01-24 22:09:00 157.5 cm [facility] [place] [facility] Body weight 2020-01-24 22:09:00 78.336 kg [facility] [place] [facility] BMI 2020-01-24 22:09:00 31.59 kg/m2 [facility] [place] [facility] Systolic blood 2019-06-02 19:00:00 126 mm[Hg] Univer sity of pressure [place] [facility] Diastolic blood 2019-06-02 19:00:00 81 mm[Hg] Unive rsity of pressure [place] [facility] Heart rate 2019-06-02 19:00:00 86 /min [facility]i ty [facility] [place] [facility] [place] Respiratory rate 2019-06-02 19:00:00 17 /min Univ ersity of [facility] Branch Oxygen saturation in 2019-06-02 19:00:00 96 /min University of Arterial blood by [facility] Pulse oximetry Branch Body temperature 2019-06-02 17:14:00 36.61 Elodia Univ ersity of [facility] Body height 2019-06-02 17:14:00 157.5 cm Universi ty [facility] [place] [facility] [place] Body weight 2019-06-02 17:14:00 74.844 kg [facility]i ty [facility] [place] [facility] BMI 2019-06-02 17:14:00 30.18 kg/m2 Universi ty of [facility] Branch Systolic blood 2019-06-02 19:00:00 126 mm[Hg] Univer sity of pressure [facility] Diastolic blood 2019-06-02 19:00:00 81 mm[Hg] Unive rsity of pressure [facility] Heart rate 2019-06-02 19:00:00 86 /min Universi ty of [facility] Respiratory rate 2019-06-02 19:00:00 17 /min Univ ersity of [facility] Oxygen saturation in 2019-06-02 19:00:00 96 /min University of Arterial blood by [facility] Pulse oximetry Branch Body temperature 2019-06-02 17:14:00 36.61 Elodia [facility] [place] [facility] ersity of [facility] Body height 2019-06-02 17:14:00 157.5 cm Universi ty [facility] [place] [facility] [place] Body weight 2019-06-02 17:14:00 74.844 kg Universi ty of [facility] BMI 2019-06-02 17:14:00 30.18 kg/m2 Universi ty of [facility] Heart rate 2022-09-30 13:00:00 69 /min [facility] [place] [facility] Systolic blood 2022-09-30 12:57:56 116 mm[Hg] Method ist [facility] pressure Diastolic blood 2022-09-30 12:57:56 80 mm[Hg] [facility] pressure Body temperature 2022-09-30 12:57:[address] [facility] Respiratory rate 2022-09-30 12:57:56 16 /min [facility] Oxygen saturation in 2022-09-30 12:57:56 98 /min [facility] [place] Arterial blood by Pulse oximetry Body weight 2022-09-30 10:31:00 83.87 kg [facility] [place] [facility] BMI 2022-09-30 10:31:00 33.82 kg/m2 [facility] [place] [facility] Body height 2022-09-27 01:09:00 157.5 cm [facility] [place] [facility] Systolic blood 2021-10-15 17:34:00 121 mm[Hg] [facility] Diastolic blood 2021-10-15 17:34:00 69 mm[Hg] [facility] Heart rate 2021-10-15 17:34:00 68 /min [facility] Respiratory rate 2021-10-15 17:34:00 18 /min [facility] Oxygen saturation in 2021-10-15 17:34:00 100 /min [facility] Arterial blood by Medical Ce nter Pulse oximetry Body temperature 2021-10-15 11:42:00 36.83 Elodia [facility] Body height 2021-10-15 11:42:00 157.5 cm [facility] Body weight 2021-10-15 11:42:00 83.915 kg [facility] BMI 2021-10-15 11:42:00 33.84 kg/m2 [facility] Procedures Procedure Date / Time Performing Clinician Source Performed TTE COMPLETE, WO 2022-09-29 22:47:00 [facility] CONTRAST, W DOPPLER ([id number]) IR LUMBAR PUNCTURE 2022-09-29 16:28:05 [facility] [place] [facility] CSF CELL COUNT WITH 2022-09-29 16:17[facility] GLUCOSE LEVEL, CSF 2022-09-29 16:17:00 [facility] [place] [facility] Branden IGG SYNTHESIS RATE STUDY 2022-09-29 16:17:00 [facility]en OLIGOCLONAL BANDING, CSF 2022-09-29 16:17:00 [facility] US CAROTID DUPLEX 2022-09-29 14:30:00 [facility] BILATERAL BASIC METABOLIC PANEL 2022-09-29 10:27:00 [facility] MAGNESIUM LEVEL 2022-09-29 10:27:00 [facility] PHOSPHORUS LEVEL 2022-09-29 10:27:00 [facility] ESTIMATED GFR 2022-09-29 10:27:00 [facility] HCG QUALITATIVE, URINE 2022-09-28 22:10:00 [facility] SCREEN TROPONIN T 2022-09-28 10:46:00 [facility] LIPID PANEL 2022-09-28 10:46:00 [facility] ECG ED PRELIMINARY 2022-09-28 00:56:[address] [facility] INTERPRETATION URINE DRUGS OF ABUSE 2022-09-27 23:00:00 [facility] SCREEN LACTIC ACID LEVEL 2022-09-27 23:00:00 [facility] HEMOGLOBIN A1C 2022-09-27 23:00:00 [facility] THYROID STIMULATING 2022-09-27 23:00:00 [facility] HORMONE T4, FREE 2022-09-27 23:00:00 [facility] C-REACTIVE PROTEIN 2022-09-27 23:00:00 [facility] TROPONIN T 2022-09-27 23:00:00 [facility] TROPONIN T 2022-09-27 19:34:00 [facility] CBC WITH PLATELET AND 2022-09-27 11:06:00 ToñoDi [facility] DIFFERENTIAL [place] COMPREHENSIVE METABOLIC 2022-09-27 11:06:[address] [facility] PANEL [place] MAGNESIUM LEVEL 2022-09-27 11:06:00 Di [facility] [place] PHOSPHORUS LEVEL 2022-09-27 11:06:00 Di [facility]berg [facility] [place] SEDIMENTATION RATE 2022-09-27 11:06:00 Di Lundberg [facility] ESTIMATED GFR 2022-09-27 11:06:00 ToñoDi mccurdy [facility] MRI BRAIN WO CONTRAST 2022-09-27 05:19:00 [facility] HEAD WO CONTRAST 2022-09-27 05:19:00 [facility] BRAIN VENOGRAM 2022-09-27 05:00:00 [place] [facility] CBC WITH PLATELET AND 2022-09-27 02:07:00 Amadou [facility] DIFFERENTIAL PROTHROMBIN TIME WITH INR 2022-09-27 02:07[facility]00 [facility] 2022-09-27 02:07:00 Amadou [facility] [place] TIME (PTT) C-REACTIVE PROTEIN 2022-09-27 02:07[facility]00 [facility] 2022-09-27 02:07:00 [facility]HENSIVE METABOLIC 2022-09-27 02:07:00 Amadou [facility] [place] PANEL MAGNESIUM LEVEL 2022-09-27 02:07:00 Amadou [facility] PHOSPHORUS LEVEL 2022-09-27 02:07:00 [facility] HCG QUALITATIVE, SERUM 2022-09-27 02:07:00 [facility] GFR 2022-09-27 02:07:00 [facility] 12-LEAD 2022-09-27 01:14:34 Amadou [facility] CT ANGIOGRAM 2022-09-15 14:32:00 [facility]PELVIS Medical Branch LIPASE 2022-09-15 13:30:00 Lisa [facility] HEPATIC FUNCTION PANEL 2022-09-15 13:30:00 Caitie Gonzalez [facility] ([id number]) (ALB,T.PRO,BILI Medical Branch T,BU/BC,ALT,AST,ALK PHOS) BASIC METABOLIC PANEL 2022-09-15 13:30:00 Caitie Gonzalez [facility] (NA, K, CL, CO2, GLUCOSE, Medica l Branch BUN, CREATININE, CA) CBC WITH DIFF 2022-09-15 13:30:00 [facility] URINALYSIS 2022-09-15 13:30:00 [facility] POCT TEST 2022-09-15 13:30:00 [facility] CONSENT/REFUSAL FOR 2022-09-15 12:57:18 Doctor Unamonica, [facility] DIAGNOSIS AND TREATMENT [place] [facility] [place] CT BRAIN WITHOUT IV 2021-10-15 12:42:00 Elise Danielson [facility] PHYSICIAN ORDERS 2021-08-13 05:01:00 Doctor Unamonica, [facility] [place] [facility] ASSIGNMENT OF BENEFITS 2021-07-16 14:15:53 [facility] [place] [facility] ASSIGNMENT OF BENEFITS 2021-06-18 14:59:31 Doctor Unassigned, [facility] Name Medical [place] ULTRASOUND OF PELVIS 2020-08-24 00:00:00 [facility] US OVARY TORSION 2020-07-23 19:10:59 Megan Bean [facility] CT ABDOMEN PELVIS W 2020-07-23 17:15:00 Megan Bean [facility] CONTRAST Medical Branch HEPATIC FUNCTION PANEL 2020-07-23 16:49:00 Megan Bean [facility] ([id number]) (ALB,T.PRO,BILI Medical Branch T,BU/BC,ALT,AST,ALK PHOS) BASIC METABOLIC PANEL 2020-07-23 16:49:00 Megan Bean [facility] (NA, K, CL, CO2, GLUCOSE, Medica l Branch BUN, CREATININE, CA) CBC WITH DIFF 2020-07-23 16:49:00 Megan Bean [facility] URINALYSIS 2020-07-23 16:49:00 Megan Bean [facility] POCT TEST 2020-07-23 16:48:00 Megan Bean [facility] NOTICE OF PRIVACY 2020-07-23 16:32:51 Doctor Unassigned, [facility]ACTICES [place] [facility] CONSENT/REFUSAL FOR 2020-07-23 16:32:01 Doctor Unamonica [facility] DIAGNOSIS [facility] HEAD WO CONTRAST 2020-04-27 19:40:14 Ann Cardozo [facility] TROPONIN I 2020-04-27 18:41:00 Ann Cardozo [facility] BASIC METABOLIC PANEL 2020-04-27 18:41:00 Ann Cardozo [facility] (NA, K, CL, CO2, GLUCOSE, Medica l Branch BUN, CREATININE, CA) CBC WITH DIFF 2020-04-27 18:41:00 Ann Cardozo [facility] HB ECG ROUTINE & RHYTHM 2020-04-27 17:58:58 Ann Cardozo [facility] NOTICE OF PRIVACY 2020-04-27 17:21:19 Doctor Unatesfayeigned, [facility] CONSENT/REFUSAL FOR 2020-04-27 17:21:03 Doctor Jesus [facility] DIAGNOSIS [facility] T[facility] TROPONIN I 2020-02-08 10:03:00 Sharon Ovalles [facility] BASIC METABOLIC PANEL 2020-02-08 10:03:00 Sharon Ovalles [facility] (NA, K, CL, CO2, GLUCOSE, Medica l Branch BUN, CREATININE, CA) CBC WITH DIFF 2020-02-08 10:03:00 Ruby Ovallesherine [facility] TROPONIN I 2020-02-08 04:27:00 Josr [facility] COVID-19 (ID NOW RAPID 2020-02-07 22:40:00 Angelo Robles [facility] TESTING) Medical Branch MAGNESIUM 2020-02-07 22:22:00 Josr, [facility] TROPONIN I 2020-02-07 22:22:00 Travis Angelo [facility] THYROID STIMULATING 2020-02-07 22:22:[address] [facility] HORMONE [facility] LIPID PANEL ([id number])(TOTAL 2020-02-07 22:22:00 Sharon Ovalles [facility] CHOLESTEROL, [facility] Branch TRIGLYCERIDES, HDL) CT ABDOMEN PELVIS W 2020-02-07 21:28:[address] [facility] CONTRAST [facility] CT CHEST PULMONARY 2020-02-07 21:28:58 Angelo Robles [facility] ANGIOGRAM [facility] XR CHEST 1 VW 2020-02-07 20:36:36 Travis [facility] POCT TEST 2020-02-07 20:03:00 Angelo Robles [facility] URINALYSIS 2020-02-07 20:02:00 Angelo Robles [facility] LIPASE 2020-02-07 19:58:00 Travis [facility] TROPONIN I 2020-02-07 19:58:00 Travis Angelo [facility] HEPATIC FUNCTION PANEL 2020-02-07 19:58:00 Angelo Robles [facility] ([id number]) (ALB,T.PRO,BILI Medical Branch T,BU/BC,ALT,AST,ALK PHOS) BASIC METABOLIC PANEL 2020-02-07 19:58:00 Angelo Robles [facility] (NA, K, CL, CO2, GLUCOSE, Medica l Branch BUN, CREATININE, CA) CBC WITH DIFF 2020-02-07 19:58:00 Angelo Robles [facility] PROTHROMBIN TIME / INR 2020-02-07 19:58:00 Angelo Robles [facility] ACTIVATED PARTIAL 2020-02-07 19:58:00 Angelo Robles [facility] N-TERMINAL PRO-BNP 2020-02-07 19:58:00 Angelo Robles [facility] HB ECG ROUTINE & RHYTHM 2020-02-07 19:51:07 Angelo Robles [facility] CONSENT/REFUSAL FOR 2020-02-07 19:42:57 Doctor Jesus [facility] DIAGNOSIS AND TREATMENT [place] [facility] CT ABDOMEN PELVIS W 2020-01-24 23:32:[address] [facility] CONTRAST Medical Branch POCT TEST 2020-01-24 23:22:[address] [facility] Medical Branch LIPASE 2020-01-24 22:41:00 Mark Mac [facility] COMP. METABOLIC PANEL 2020-01-24 22:41:00 Mark Mac [facility] ([id number]) Medical Branch CBC WITH DIFF 2020-01-24 22:41:00 Mark Mac [facility] URINALYSIS 2020-01-24 22:41:00 Mark Mac [facility] NOTICE OF PRIVACY 2020-01-24 22:03:28 Doctor Jesus [facility] PRACTICES [place] [facility] [place] CONSENT/REFUSAL FOR 2020-01-24 22:03:15 Doctor Jesus [facility] DIAGNOSIS AND TREATMENT [place] [facility] [place] CT ABDOMEN PELVIS W 2019-06-02 18:46:40 Candido Ramirez [facility] CONTRAST Medical Branch POCT TEST 2019-06-02 17:48:00 Candido Ramirez [facility] Medical [place] LIPASE 2019-06-02 17:47:00 Candido Ramirez [facility] COMP. METABOLIC PANEL 2019-06-02 17:47:00 Candido Ramirez [facility] ([id number]) Medical [place] CBC WITH DIFFERENTIAL 2019-06-02 17:47:00 Candido Ramirez [facility] URINALYSIS 2019-06-02 17:47:00 Candido Ramirez [facility] CONSENT/REFUSAL FOR 2019-06-02 17:08:56 Doctor Jesus [facility] DIAGNOSIS AND TREATMENT [place] [facility] [place] Gi Tract Capsule 2017-11-10 00:00:00 [facility] Tubal [facility] Caesarean Section [facility] Medical Plan of Care Planned Activity Planned Date Details Comments Source Future Scheduled 2023-03-10 COVID-19 VACCINE (#1) [facility] Test 03:39:41 [code = COVID-19 VACCINE Hos pital (#1)] Future Scheduled 2023-03-10 Hepatitis C screening [facility] Test 03:39:41 (procedure) [code = Hospital 365825274] Future Scheduled 2023-03-10 Screening for malignant [facility] Test 03:39:41 neoplasm of cervix Hospital (procedure) [code = 525426393] Future Scheduled 2023-03-10 BREAST CANCER SCREENING [facility] Test 03:39:41 [code = BREAST CANCER Hospit al SCREENING] Future Scheduled 2023-03-10 INFLUENZA VACCINE (#1) M ethodist Test 03:39:41 [code = INFLUENZA VACCINE Ho spital (#1)] Future Scheduled 2023-02-08 COVID-19 VACCINE (#1) [facility] Test 02:36:30 [code = COVID-19 VACCINE Hos pital (#1)] Future Scheduled 2023-02-08 Hepatitis C screening [facility] Test 02:36:30 (procedure) [code = Hospital 012195149] Future Scheduled 2023-02-08 Screening for malignant [facility] Test 02:36:30 neoplasm of cervix Hospital (procedure) [code = 386374756] Future Scheduled 2023-02-08 BREAST CANCER SCREENING [facility] Test 02:36:30 [code = BREAST CANCER Hospit al SCREENING] Future Scheduled 2023-02-08 INFLUENZA VACCINE (#1) M ethodist Test 02:36:30 [code = INFLUENZA VACCINE Ho spital (#1)] Future Scheduled 2022-12-19 COVID-19 VACCINE (#1) [facility]ist Test 00:48:53 [code = COVID-19 VACCINE Hos pital (#1)] Future Scheduled 2022-12-19 Hepatitis C screening Me [facility]odist Test 00:48:53 (procedure) [code = Hospital 193199568] Future Scheduled 2022-12-19 Screening for malignant [facility] Test 00:48:53 neoplasm of cervix Hospital (procedure) [code = 146285042] Future Scheduled 2022-12-19 BREAST CANCER SCREENING [facility] Test 00:48:53 [code = BREAST CANCER Hospit [...] [facility] Test 00:[facility]:00 [code = INFLUENZA VACCINE [facility] Center (#1)] Future Scheduled 2021-04-[address] [facility] Test 00:00:00 (12+) [code = DEPRESSION Med ica Center SCREENING (12+)] Future Scheduled 2021-04-[address] [facility] Test 00:00:00 (12+) [code = DEPRESSION [facility] ica Center SCREENING (12+)] Future Scheduled 2001 Screening for malignant [facility] Test 00:00:00 neoplasm of cervix Medical C enter (procedure) [code = 322561198] Future Scheduled 2001 Screening for malignant [facility] Test 00:00:00 neoplasm of cervix Medical C enter (procedure) [code = 227280629] Future Scheduled 2001 Screening for malignant [facility] Test 00:00:00 neoplasm of cervix Medical C enter (procedure) [code = 641293564] Future Scheduled 2001 Screening for malignant [facility] Test 00:00:00 neoplasm of cervix Medical C enter (procedure) [code = 766024476] Future Scheduled 2001 Screening for malignant [facility] Test 00:00:00 neoplasm of cervix Medical C enter (procedure) [code = 017910209] Future Scheduled 2001 Screening for malignant [facility] Test 00:00:00 neoplasm of cervix Medical C enter (procedure) [code = 014788018] Future Scheduled 2001 Screening for malignant [facility] Test 00:00:00 neoplasm of cervix Medical C enter (procedure) [code = 022104745] Future Scheduled 2001 Screening for malignant [facility] Test 00:00:00 neoplasm of cervix Medical C enter (procedure) [code = 226465265] Future Scheduled 2001 Screening for malignant [facility] Test 00:00:00 neoplasm of cervix Medical C enter (procedure) [code = 840984683] Future Scheduled 2000 Lipid panel (procedure) [facility] Test 00:00:00 [code = 71605053] Medical Ce nter Future Scheduled 2000 Lipid panel (procedure) [facility] Test 00:00:00 [code = 21372874] Medical Ce nter Future Scheduled 2000 Lipid panel (procedure) [facility] Test 00:00:00 [code = 51818460] Medical Ce nter Future Scheduled 2000 Lipid panel (procedure) [facility] Test 00:00:00 [code = 35080526] Medical Ce nter Future Scheduled 2000 Lipid panel (procedure) [facility] Test 00:00:00 [code = 65488637] Medical Ce nter Future Scheduled 2000 Lipid panel (procedure) [facility] Test 00:00:00 [code = 51612814] Medical Ce nter Future Scheduled 2000 Lipid panel (procedure) [facility] Test 00:00:00 [code = 61228674] Medical Ce nter Future Scheduled 2000 Lipid panel (procedure) [facility] Test 00:00:00 [code = 00848533] Medical Ce nter Future Scheduled 2000 Lipid panel (procedure) [facility] Test 00:00:00 [code = 06682616] Medical Ce nter Future Scheduled 1999-10-09 DTAP/TDAP/TD [...] screening Medical Cent er (procedure) [code = 625368411] Future Scheduled 1995-10-[address] [facility] 00:00:00 virus screening [facility] Cent er (procedure) [code = 685340107] Future Scheduled 1995-10-09 Human immunodeficiency [facility] Test 00:00:00 virus screening Medical Cent er (procedure) [code = 147209136] Future Scheduled 1981-04-09 COVID-19 VACCINE (#1) CH [...] Type Type Clinicians Facility Department ID 2022-10-06 [facility] [id number] [place] 15:21:30 [id number] [facility] 2022-08-16 Outpatient [facility] [id number] [place] 15:19:06 [id number] [facility] 2022-07-03 Outpatient [facility] [id number] [place] 10:37:25 [id number] [facility] 2022-07-02 Outpatient [facility] [id number] [place] 15:48:54 [id number] [facility] 2022-04-02 Outpatient [facility] [id number] [place] 13:15:41 [id number] [facility] 2021-02-10 Emergency [facility] [id number] Univers 12:15:04 ity of [facility] 2021-02-09 Emergency [facility] [id number] Univers 17:33:[address] [facility] 2021-02-09 Emergency [facility] [id number] Univers 01:23:[address] [facility] 2021-02-08 Emergency [facility] [id number] Univers 22:46:[address] [facility] 2023-03-03 2023-03-03 Outpatient [facility]_ PRIV PRIV [id number] [facility] 00:00:00 00:00:00 Ludwin [id number] Medic al 2023-03-03 2023-03-03 Outpatient GC_[facility]_ PRIV PRIV 506 [id number] [facility] 00:00:00 00:00:00 Ludwin [id number] Medic al 2022-10-03 2022-10-03 Patient Coretta, 1.2.840.1 [id number] Methodi 00:00:00 00:00:00 Outreach Joy [address]25.1.[address] 3.430.2.7 Hospit a .3.156973 l .8 2022-10-03 2022-10-03 Patient Jung, 1.2.840.1 [id number] Methodi 00:00:00 00:00:00 Outreach Linnette [address]15.1.[address] 3.430.2.7 Hospit a .3.057780 l .8 2022-10-03 2022-10-03 Patient Hubersapphiremalvin, 1.2.840.1 [id number] Methodi 00:00:00 00:00:00 Outreach Joy 09605.1.[address] 3.430.2.7 Hospit a .3.363114 l .8 2022-10-03 2022-10-03 Patient Jung, 1.2.840.1 [id number] Methodi 00:00:00 00:00:00 Outreach Linnette [address]277.1.[address] 3.430.2.7 Hospit a .3.269709 l .8 2022-09-26 2022-09-30 [facility] Festus 1.2.840.1 10 [id number] Methodi 20:14:00 13:32:00 Encounter Di Lundberg 74019.1.[address] [employer] 3.430.2.7 Hospita .3.194030 l .8 2022-09-26 2022-09-30 [facility] Festus 1.2.840.1 10 [id number] Methodi 20:14:00 13:32:00 Encounter Di Lundbergim 14587.1.[address] [employer] 3.430.2.7 Hospita .3.300761 l .8 2022-09-20 2022-09-20 Outpatient GC_[facility]_ PRIV PRIV 506 [id number] [facility] 00:00:00 00:00:00 Ludwin [id number] Medic al 2022-09-20 2022-09-20 Outpatient GC_[facility]_ PRIV PRIV 506 [id number] [facility] 00:00:00 00:00:00 Ludwin [id number] Medic al 2022-09-20 2022-09-20 Outpatient GC_[facility]OM[facility]_ PRIV PRIV 506 [id number] [facility] 00:00:00 00:00:00 Ludwin [id number] Medic al 2022-09-17 2022-09-17 Patient Doctor LUÍS 1.2.840.114 [id number] Univers 00:00:00 00:00:00 Secure Msg Unassigned, SHARON 350.1.13.10 ity of [place] [facility] 4.2.7.2.686 [facility] [id number] [facility] 019 Branch 2022-09-15 2022-09-15 Emergency X LISA, MTJAYE ERT [id number] Univers 08:09:00 13:17:00 CYNISE ity of [facility] 2022-09-15 2022-09-15 Emergency Lisa [facility] 1.2.957.204 [id number] Univers 08:09:00 13:17:00 Cynsveta HERNANDEZ 350.1.13.10 i ty [facility] 4.2.7.2.686 [facility] [id number] [facility] 084 Branch 2022-08-25 2022-08-25 Outpatient ATKINS [facility] [id number] [place] 13:45:00 13:45:00 ANGEL Key [facility] 2022-07-03 2022-07-03 Office WILBERT [facility] 6400 1.2.840.114 [id number] [place] 10:45:00 10:45:00 Visit ANGEL NAGEL 350.1.13.58 [place] [address].2.7.2.686 [id number] 1 2022-05-21 2022-05-21 Outpatient ATKINS [facility] [id number] [place] 09:30:00 09:30:00 ANGEL Key [facility] 2021-10-15 2021-10-15 Emergency Jagjit, [facility] [id number] 14:24:00 17:37:00 [facility] 2021-10-15 2021-10-15 Emergency ER JAGJIT, [facility] Emergency [id number] SLS 14:24:00 17:37:00 [place] 2021-10-15 2021-10-15 Travel [facility] [id number] [facility] 00:00:00 00:00:00 [facility] 2021-08-13 2021-08-13 Field Operations Supervisor Luis, Adc Lab Main [facility] 1.2.8 40.114 [id number] [facility] 12:15:00 12:30:00 Visit Ariel Britt 350.1.13.1 0 ity of [place] [facility] 4.2.7.2.[place] [id number] [address] 2021-08-13 2021-08-13 Outpatient R BALWINDER [facility] [id number] Univers 12:15:00 12:15:[address] [facility] 2021-08-13 2021-08-13 Orders Doctor LUÍS 1.2.840.114 [id number] Univers 00:00:00 00:00:00 Only Unassigned, SHARON 350.1.13.10 ity of [place] [facility] 4.2.7.2.686 Craig as [id number] [address] 2021-07-16 2021-07-16 Field Operations Supervisor Luis, Adc Lab Main [facility] 1.2.8 40.114 [id number] Univers 09:30:00 09:45:00 Visit Paul [place] 350.1.13.10 ity of [place] [id number] [address] 2021-07-16 2021-07-16 [facility] [id number] Univers 09:30:00 09:30:[address] [facility] 2021-07-16 2021-07-16 Orders Doctor STALEY 1.2.840.114 [id number] Univers 00:00:00 00:00:00 Only Unassigned, SHARON 350.1.13.10 ity of [place] [facility] 4.2.7.2.686 Craig as [id number] [address] 2021-06-18 2021-06-18 [facility] [id number] Univers 08:45:00 10:27:[address] [facility] 2021-06-18 2021-06-18 Field Operations Supervisor Luis, Adc Lab Main [facility] 1.2.8 40.114 [id number] Univers 08:45:00 09:00:00 Visit Paul Soto 350.1.13.10 ity of [place] 4[place].2.[place] [id number] Me dical NAL 353 Branch [facility] 2021-06-18 2021-06-18 Orders Doctor LUÍS 1.2.840.114 [id number] Univers 00:00:00 00:00:00 Only Unassigned, SHARON 350.1.13.10 ity of [place] [facility] 4.2.7.2.686 Craig [id number] [facility] 009 Branch 2020-08-24 2020-08-24 [facility] PRIV PRIV [id number] [facility] 02:56:00 02:56:00 Ludwin [id number] Medic al 2020-08-24 2020-08-24 Outpatient TAYLOR Pierce PRIV [id number] 00:00:00 00:00:00 Alex [id number] Jay [id number] 2020-08-24 2020-08-24 Alex PRIV [facility] [id number] [facility] 00:00:00 00:00:00 tristan [facility] - Medic al Stan _RONAL_ MD: [id number] [facility]* [place], [address], [place] [address] , Ph. 2020-07-23 2020-07-23 Emergency Bean, [facility] 1.2.840.114 [id number] 11:40:00 15:16:00 Megan Hernandez 350.1.13.10 [place] 4.2.7.2.686 [place] [id number] 2020-07-23 2020-07-23 Emergency Bean, [facility] 1.2.840.114 [id number] [facility] 11:40:00 15:16:00 Megan Hernandez 350.1.13.10 i ty of [place] 4.2.7.2.686 [facility] [id number] [facility] 084 Branch 2020-04-27 2020-04-27 Emergency Levi, [facility] 1.2.840.114 [id number] 11:25:00 18:21:00 Ann Hernandez 350.1.13.10 [place] 4.2.7.2.686 [place] [id number] [facility] 2020-04-27 2020-04-27 Emergency Levi, [facility] 1.2.840.114 [id number] [facility] 11:25:00 18:21:00 Ann Hernandez 350.1.13.10 ity of [place] 4.2.7.2.686 [facility] [id number] [address] 2020-02-07 2020-02-08 Emergency RoblesAngelo [facility] 1.2.840. 114 [id number] 14:46:00 14:26:00 Naun Bush 350.1.13.10 [place] [address] [place] [address] [id number] [facility] 2020-02-07 2020-02-08 Emergency RoblesAngelo [facility] 1.2.840. 114 [id number] [facility] 14:46:00 14:26:00 Naun Bush 350.1.13.10 ity of [place] 4.2.7.2.686 [facility] [id number] [address] 2020-01-24 2020-01-24 Emergency Mac, [facility] 1.2.104.501 [id number] 17:12:00 21:15:00 Mark Esdras Hernandez 350.1.13.10 [place] [address] [place] [address] [id number] [facility] 2020-01-24 2020-01-24 Emergency Mac, [facility] 1.2.444.812 [id number] [facility] 17:12:00 21:15:00 Mark Hernandez 350.1.13.10 i ty of [place] 4.2.7.[address] [place] [id number] 2020-01-24 2020-01-24 Orders Doctor STALEY 1.2.840.114 [id number] 00:00:00 00:00:00 Only Unassigned, SHARON 350.1.13.10 [place] [facility] 4.2.7.2.686 [id number] [facility] 2020-01-24 2020-01-24 Orders Doctor STALEY 1.2.840.114 [id number] [facility] 00:00:00 00:00:00 Only Unassigned, SHARON 350.1.13.10 ity of [place] [facility] 4.2.7.2.686 Craig as [id number] [facility] 009 Branch 2019-06-02 2019-06-02 Emergency [place], [facility] 1.2.840.114 [id number] 11:18:34 14:43:00 Candido [place] 350.1.13.10 [place] 4.2.7.2.686 [place] [id number] [facility] 2019-06-02 2019-06-02 Emergency James, [facility] 1.2.840.114 [id number] Univers 11:18:34 14:43:00 Candido [place] 350.1.13.10 i ty of [place] 4.2.7.2.686 [facility] [place] [id number] [facility] [address] [place] 2019-06-02 2019-06-02 Emergency X JAMES, [facility] ERT [id number] Univers 11:18:34 14:43:00 CANDIDO ity of [facility] Results Test Description Test Test Results Result Source Time Comments Comments Transthoracic 2022-09 Echocardiography Report Taoist Echocardiogram -20 1949 [facility], ospital Complete, (w 14:11:0 [facility] 9, [place], [place] Contrast, Strain 0 [address] Pat.Name: JACOB, and 3D if needed) VIC Lopez.ID: [id number] .Date: 09/29/2022 Refer.MD: ERIC TAVARES DO Exam Time: 4:45:00 PM Study Type:Routine Echo Height: 62in Weight: 188lb BSA: 1.86 m2 Age: 6 1980,41Y Sex: FEMALE BP: 114/62 HR: 61 bpm Sonogrphr: Kristina Rodriguez RDCS Pat. Stat.:Inpatient Room: [facility] Study Status:Final Echo Event ID:[id number] Order ID: [id number] Reason for Study:chest pain Procedures: 2D Echo, Colorflow Doppler, PortableRace: C FINDINGS:------- ---LV: LV size is normal. Concentric left ventricular remodeling. LV EF is normal. Difficult to assess regional wall motion; however it appears grossly normal. Estimated EF is 60-64%.RV: RV size is normal. RV systolic function is normal.LA: LA size is normal.RA: RA size is normal.AO: Aortic root diameter is normal.TONY: There is an anterior space consistent with a prominent epicardial fat pad.AV: No structural AV abnormalities noted.MV: No structural MV abnormalities noted.PV: No structural PV abnormalities noted.TV: No structural TV abnormalities noted.Rod: Hepatic vein pressure is normal, RA pressure < 5mmHg. Normal diastolic function and LV filling pressures.Other: Estimated PA systolic pressure is 21 mmHg, assuming a mean RAP of 5 mmHg. MEASUREMENT S: 2DParasternal Long [place] Ao An 1.8 cm LVPWd 0.93 cm Ao Rtd 2.9 cm Index 1.6 cm/m2 LA Ds 2.7 cm IVSd 1 cm RWT 0.46 LVIDd 4 cm Index 2.1 cm/m2 LV Mass 121 g (87-129) LVIDs 2.5 cm LVM Index 65 g/m2 LV%fs 38 % LVOT 2 cm LA Sng Plane LA Area 13 cm2 (8.8-23.4) LA Vol 30 ml Index 16 ml/m2 LA LngAx 5.4 cm LVOT LVOT Area 3.1 cm2 DOPPLERLVOT Stroke Vol & Cardiac Out LVOT TVI 18 cm HR 63 bpm LVOT LVOT SV 55 ml LVOT CO 3.5 l/min SVi 30 ml/m2 LVOT CI 1.9 l/m/m2TV Pressure Gradient TV PkVel 200 cm/s TV PG 16 mmHg Signed 09/30/2022 09:11 Sergey Whipple MD Pv carotid duplex 2022-09 Vascular Ultrasound Taoist -19 [facility] 18:28:0 Duplex Report [id number] [place] [address] For quality assurance monitor chassis purposes, the categorization of the degree of the stenosis of this exam is based on criteria described in the IAC carotid stenosis grading white paper( www.intersocietal.org/Vasc ular) and Kylie Salinas., Liam Gomez, et al. Carotid artery stenosis: velez-scale and Doppler US diagnosis--Society of Radiologists in Ultrasound Consensus Conference. Radiology. 2003 Nov; 229(2):340-6. Pat.Name: VIC REEVES Pat.ID: [id number] .Date: 09/29/2022 Refer.MD: ERIC TAVARES DO Exam Time: 8:38:00 AM Study Type:Carotid Height: 62in Weight: 188lb BSA: 1.86 m2 Age: 6 1980,41Y Sex: FEMALE Sonogrphr: Erin Staley RVT Pat. Stat.:Inpatient Room: [address] Tape Vol: JJ, CPT - 4: 62539 Echo Event ID:[id number] Order ID: [id number] Reason for Study:Headache, evaluation for GCA. History of HTN. Procedures: Colorflow, Grayscale/2D, Pulsed wave DopplerRace: C SUMMARY:-------- --PHYSICAL ASSESSMENT Blood Pressure Right ___ Left ___CAROTID ARTERY SCANRIGHT: There is smooth intimal lining in the common carotid, bulb,internal and external carotid arteries. Colorflow is normal. There isantegrade flow in the vertebral artery. LEFT: There is smooth intimal lining in the common carotid, bulb,internal and external carotid arteries. Colorflow is normal. There isantegrade flow in the vertebral artery.SUPERFICIAL TEMPORAL ARTERY SCANRIGHT: The common superficial temporal artery, parietal and frontalbranches are compressible without evidence of residual hypoechoicspace upon compression. There are normal color filling with highresistive Doppler waveforms noted in the common superficial temporalartery, parietal and frontal branches. LEFT: The common superficial temporal artery, parietal and frontalbranches are compressible without evidence of residual hypoechoicspace upon compression. There are normal color filling with highresistive Doppler waveforms noted in the common superficial temporalartery, parietal and frontal branches. INTIMA MEASUREMENTVESSEL RIGHT (mm) LEFT (mm)External carotid artery 0.39 0.56Common carotid artery 0.57 0.45 Superficial temporal common 0.17 0.19Parietal artery 0.11 0.12Frontal artery 0.20 0.11 Axillary artery 0.62 0.45 VESSEL VELOCITY PSV (cm/s) RIGHT LEFTCommon Superficial temporal artery 40 Parietal branch 342 47Frontal branch 29 35 PRELIMINARY FINDINGS1. No evidence of halo sign or giant cell arteritis noted in bilateralsuperficial temporal arteries. 2. Normal carotid duplex. PHYSICIAN INTERPRETATIONBilateral carotid artery examination demonstrates no evidence ofatherosclerotic plaque or arterial occlusive disease.No evidence of stenosis in the bulb and internal carotid artery,bilaterally. Both vertebral arteries are antegrade. No ultrasound evidence of temporal arteritis. FINDINGS:------- ---Carotid Findings: Right Left Verteb.Flw Antegrade Antegrade Subclavian Triphasic Triphasic MEASUREMENTS:--- ------- DOPPLERLeft CCA Dist CCA Dist EDV 18.6 cm/s CCA Dist PSV 82.1 cm/sLeft CCA Mid CCA Mid EDV 24.3 cm/s CCA Mid PSV 97.1 cm/sLeft CCA Prox CCA Prox EDV 22.2 cm/s CCA Prox PSV 85.2 cm/sLeft ECA Prox ECA Prox EDV 13.6 cm/s ECA Prox PSV 82.4 cm/sLeft ICA Dist ICA Dist EDV 33.1 cm/s ICA Dist PSV 91.5 cm/sLeft ICA Mid ICA Mid EDV 27.6 cm/s ICA Mid PSV 54.2 cm/sLeft ICA Prox ICA Prox EDV 26.6 cm/s ICA Prox PSV 102 cm/sLeft Subclavian Subclavian PSV 164 cm/s Left Vertebral Vertebral EDV 13.6 cm/s Vertebral PSV 62.3 cm/sRight CCA Dist CCA Dist EDV 17.2 cm/s CCA Dist PSV 76.6 cm/sRight CCA Mid CCA Mid EDV 20 cm/s CCA Mid PSV 73.8 cm/sRight CCA Prox CCA Prox EDV 10.8 cm/s CCA Prox PSV 75.8 cm/sRight ECA Prox ECA Prox EDV 10.8 cm/s ECA Prox PSV 71.4 cm/sRight ICA Dist ICA Dist EDV 47.4 cm/s ICA Dist PSV 84.4 cm/sRight ICA Mid ICA Mid EDV 35.7 cm/s ICA Mid PSV 90.9 cm/sRight ICA Prox ICA Prox EDV 29 cm/s ICA Prox PSV 64.9 cm/sRight Subclavian Subclavian PSV 111 cm/s Right Vertebral Vertebral EDV 14.3 cm/s Vertebral PSV 54.7 cm/sRight ICA/CCA Ratio ICA/CCA PSV 0.879 Left ICA/CCA Ratio ICA/CCA PSV 1.05 Signed 09/29/2022 01:28 PMJoyevgeniy Borrero MD, FACS, RPVI IR Lumbar Puncture 2022-09 EXAMINATION: IR LUMBAR [facility] -19 PUNCTURE CLINICAL HISTORY: Hospital 17:23:5 intractable headache r o 1 IIH COMPARISON: None. Findings: Informed consent was obtained. Lower back was prepped and draped in usual sterile fashion. 1% lidocaine was used for local anesthesia. A 22-gauge 5.0 inch needle was advanced into spinal canal at the L4-L5 level under intermittent fluoroscopic guidance. 15 cc of clear CSF fluid was withdrawn. Opening pressure was 12 cm H2O. No complications. Total fluoroscopic time was 0 minutes. 0 exposure images were obtained. Dose 4.2 mGy. IMPRESSION: Successful fluoroscopic guided lumbar puncture. [id number] ECG 12 lead 2022-09-28 23:03:06 Test Item Value Reference Range Interpretation Comme nts Ventricular rate (test code = 253) 78 Atrial rate (test code = 255) 78 MI interval (test code = 266) 118 QRSD [...] Normal sinus rhythm-Normal ECG-No previous ECGs available- [place] [address] [id number] 23:03:06 Test Item Value Reference Range Interpretation Comments Ventricular rate (test 78 code = 253) Atrial rate (test code = 78 255) MI interval (test code = 118 266) QRSD [...] available-Electronica lly Signed By Luís North MD ([id number]) on 09/28/2022 6:01:55 PM [place] [address] [id number] 23:03:06 Test Item Value Reference Range Interpretation Comments Ventricular rate (test 78 code = 253) Atrial rate (test code = 78 255) MI interval (test code = 118 266) QRSD [...] available-Electronica lly Signed By Luís North MD ([id number]) on 09/28/2022 6:01:55 PM [facility] ED Preliminary Interpretation - Not an [id number] 00:56:19Ollie Tobar MD 09/27/2022 8:01 PMEG ED Preliminary Interpretation - Not an Order Performedby: Ollie Tobar MDAuthorized by: Ollie Tobar MD ECG reviewed by ED Physician in the absence of a smash piecer: yes Interpretation: Interpretation: normal Rate: ECG rate: 78 ECG rateassessment: normal Rhythm: Rhythm: sinus rhythm Ectopy: Ectopy: none QRS: QRS axis: NormalConduction: Conduction: normal ST segments: ST segments: NormalT waves: T waves: normalMRI Brain Gqwakote8237-27-21 05:26:04EXAMINATION: MRI BRAIN VENOGRAM CLINICAL HISTORY: headache TECHNIQUE: Time of flight MR venogram wasperformed of the major intracranial venous sinuses with 3D reconstructions. COMPARISON: None FINDINGS: BRAIN MR VENOGRAM: Normal flow-related signal with no significant stenosis or filling defect within bilateral internal cerebral veins, basal veins of Tere, vein of Adarsh, straight sinus, superior sagittal sinus, transverse and sigmoid sinuses, and internal jugular veins. OTHER: None. IMPRESSION: Unremarkable head MRV with no significant stenosis or evidence of venous thrombosis. [id number] Head Wo [id number] 05:24:32EXAMINATION: MRA HEAD WO CONTRAST CLINICAL HISTORY: headache COMPARISON: MRI from the same date TECHNIQUE: Wolu-sm-cjbltl MRA images of the [place] of [place] vessels were obtained with multiplanar and 3-D reconstructive algorithms. FINDINGS: No focal stenosis or aneurysm of the intracranial internal carotid arteries, middle cerebral arteries, or anterior cerebral arteries. No focal stenosis or aneurysm of the vertebral, basilar, or posterior cerebral arteries. origin of bilateral CITRIX ARCHITECT. IMPRESSION: No focal stenosis or aneurysm of the intracranial circulation. [id number] 2022-09-27 05:22:01EXAMINATION: MRI BRAIN WO CONTRAST CLINICAL HISTORY: headache COMPARISON: None TECHNIQUE: Multiplanar and multisequence MRI imaging of the brain was obtained without contrast. FINDINGS: No evidence of acute intracranial hemorrhage, mass, mass effect, acute infarct or midline shift. Ventricles and sulci are normal in appearance for patient's age. No abnormal susceptibility. Basal cisterns are clear. Major intracranial flow voids are maintained. Orbits are normal in appearance. Visualized paranasal sinuses and mastoid air cells are clear. IMPRESSION: 1. No acute intracranial abnormality. [id number] (NA, K, CL, CO2, GLUCOSE, BUN, CREATININE, CA) 2022-09-15 14:12:52 Test Item Value Reference Range Interpretation Comments NA (test code = 140 mmol/L 135-145 0431424918) K (test code = 4.2 mmol/L 3.5-5.0 5795798218) CL (test code = 104 mmol/L 98-108 9194619315) CO2 TOTAL (test code = 21 mmol/L 23-31 L 6762093163) AGAP (test code = 15 2-16 6391993018) BUN (test code = 11 mg/dL 7-23 8380727845) GLUCOSE (test code = 125 mg/dL 70-110 H 9661682919) CREATININE (test code = 0.81 mg/dL 0.50-1.04 1451553731) CALCIUM (test code = 10.4 mg/dL 8.6-10.6 6633610035) eGFR (test code = 77.9 mL/min/1.73m2 0387695528) JOSH (test code = JOSH) Association of [...] tests). Lab Interpretation Abnormal (test code = 25551-4) [facility] CenterHEPAT[facility] FUNCTION PAN[facility] (43270) (ALB,T.PRO,BILI T,BU/BC,ALT,AST,ALK PHOS)2022-09-15 14:12:52 Test Item Value Reference Range Interpretation Comments TOTAL BILI (test code = 2900399666) 0.5 mg/dL 0.1-1.1 BILI UNCON (test code = 8001883121) 0.3 mg/dL 0.1-1.1 BILI CONJ (test code = 8397961061) 0.0 mg/dL 0.0-0.3 T PROTEIN (test code = 3286551456) 7.7 g/dL 6.3-8.2 ALBUMIN (test code = 7258117530) 4.9 g/dL 3.5-5.0 ALK PHOS (test code = 5137264209) 100 U/L 34-122 ALTv (test code = 1742-6) 29 U/L 5-35 AST(SGOT) (test code = 5662568757) 28 U/L 13-40 Lab Interpretation (test code = Normal 84389-4) [facility] CenterLIPASE2023-06-05 14:12:52 Test Item Value Reference Range Interpretation Comments LIPASE (test code = 8455064531) 137 U/L 0-220 Lab Interpretation (test code = Normal 95212-3) [facility] CenterCBC WITH [id number] 13:49:51 Test Item Value Reference Range Interpretation Comments WBC (test code = 10.62 See_Comment [Automated 1198-2) message] The sy stem which generated this [...] RDW-SD (test code = 43.9 fL 39.0-49.9 60515-2) RDW-CV (test code = 13.9 % 12.0-15.5 788-0) PLT (test code = 308 See_Comment [Automated 777-3) message] The sy stem which generated this result transmitted reference range : 166 - 358 10*3/ ?L. The reference r susan was not used to interpret this result as normal/abnormal . MPV (test code = 11.2 fL 9.5-12.9 80364-3) NRBC/100 WBC (test 0.0 See_Comment [Automat ed code = 7099673476) message] The system which generated this result transmitted reference range : 0.0 - 10.0 /100 WBCs. The refer ence range was not u sed to interpret th is result as normal/abnormal . NRBC x10^3 (test code See_Comment [Auto mated = 5471434792) message] The s ystem which generated this result transmitted reference range : 10*3/?L. The reference range was not used to interpret this result as normal/abnormal . GRAN MAT (NEUT) % 71.0 % (test code = 770-8) IMM GRAN % (test code 0.40 % = 9150502509) LYMPH % (test code = 21.0 % 736-9) MONO % (test code = 5.8 % 5905-5) EOS % (test code = 1.3 % 713-8) BASO % (test code = 0.5 % 706-2) GRAN MAT x10^3(ANC) 7.54 10*3/uL 1.88-7.09 H (test code = 1002744993) IMM GRAN x10^3 (test 0.04 10*3/uL 0.00-0.06 code = 6108411410) LYMPH x10^3 (test code 2.23 10*3/uL 1.32-3.29 = 731-0) MONO x10^3 (test code 0.62 10*3/uL 0.33-0.92 = 742-7) EOS x10^3 (test code = 0.14 10*3/uL 0.03-0.39 711-2) BASO x10^3 (test code 0.05 10*3/uL 0.01-0.07 = 704-7) Lab Interpretation Abnormal (test code = 39331-5) [facility] CenterPOCT [id number] 13:30:00 Test Item Value Reference Range Interpretation Comments POCT PREG (test code = 1605) Negative On board controls acceptable with C Yes Line (test code = 3574) POCT PREG LOT # (test code = 3575) [id number] POCT PREG TEST DATE (test 31054231 code = 3576) Lab Interpretation (test code = Normal 72970-1) [facility] CenterCT, BRAIN, WITHOUT [id number] 12:56:00 Unlisted Reason for Exam - Click Yes and Enter Reason Below->No [facility] 1980 Sex: FFINAL [...] acute infarct, hemorrhage, or hydrocephalus. Signed: Michael Galan MDReport Verified Date/Time: 10/15/2021 12:56:49 US OVARY [id number] 19:26:25 Low suspicion for ovarian torsion. Small [...] uterine fibroid versus foci of endometrial andsubendometrial microcalcifications.[facility] CenterCT ABDOMEN PELVIS W [id number] 17:59:04 Normal appendix. No radiographic findings to [...] PELVISLiver: Hepatic dome is not fully within cknes-mr-vmgs. Mild focal fatty infiltration at the falciform [...] PELVISLiver: Hepatic dome is not fully within ecjhf-dx-vbej. Mild focal fattyinfiltration at the falciform ligament. [...] to explain patient's pain in the right lowerquadrant.[facility] Metabolic Panel (NA, K, CL, CO2, GLUCOSE, BUN, CREATININE, CA)2020-07-23 17:09:38 Test Item Value Reference Range Interpretation Comments NA (test code = 139 mmol/L 135-145 0900217399) K (test code = 3.9 mmol/L 3.5-5.0 9098813556) CL (test code = 102 mmol/L 98-108 5344364611) CO2 TOTAL (test code 29 mmol/L 23-31 = 5205832228) AGAP (test code = 2-16 5655311503) BUN (test code = 13 mg/dL 7-23 8568489864) GLUCOSE (test code = 98 mg/dL 70-110 8134601335) CREATININE (test code 0.76 mg/dL 0.50-1.04 = 7811339341) CALCIUM (test code = 9.5 mg/dL 8.6-10.6 5903509565) eGFR (test code = mL/min/1.73m2 3306216654) JOSH (test code = JOSH) Association of [...] or urine or abnormalities in imaging tests). [facility] CenterHepatic Function Panel (ALB, T.PRO, BILI T, BU/BC, ALT, AST, ALK PHOS)2020-07-23 17:09:38 Test Item Value Reference Range Interpretation Comments TOTAL BILI (test code = 4483702840) 0.4 mg/dL 0.1-1.1 BILI UNCON (test code = 1654924897) 0.2 mg/dL 0.1-1.1 BILI CONJ (test code = 2867999817) 0.0 mg/dL 0.0-0.3 T PROTEIN (test code = 5641637254) 6.9 g/dL 6.3-8.2 ALBUMIN (test code = 6811552171) 4.3 g/dL 3.5-5.0 ALK PHOS (test code = 1090773013) 113 U/L 34-122 ALTv (test code = 1742-6) 13 U/L 5-35 AST(SGOT) (test code = 0123572296) 29 U/L 13-40 Lab Interpretation (test code = Normal 77321-5) [facility] CenterUrinalysis2021-04-12 17:03:52 Test Item Value Reference Range Interpretation Comments APPEARANCE (test code = Clear Clear 9431449934) COLOR (test code = Straw Yellow A 1688868485) PH (test code = 4.8-8.0 7719933546) SP GRAVITY (test code = 1.003-1.030 6378578654) GLU U QUAL (test code = Normal Normal 5364324639) BLOOD (test code = Negative Negative 6177327231) KETONES (test code = Negative Negative 8794758794) PROTEIN (test code = Negative Negative 2887-8) UROBILIN (test code = Normal Normal 9571041789) BILIRUBIN (test code = Negative Negative 1645210518) NITRITE (test code = Negative Negative 8546338542) LEUK ROXANE (test code = 25/uL Negative A 0667889179) RBC/HPF (test code = See_Comment [Autom ated message] 7535420848) The system [employer] generated this result transmitted ref erence range: 0 - 3 HP F. The reference range was not used to int erpret this result as normal/abnormal . WBC/HPF (test code = See_Comment [Autom ated message] 3982239521) The system [employer] generated this result transmitted ref erence range: 0 - 5 HP F. The reference range was not used to int erpret this result as normal/abnormal . BACTERIA (test code = Few Negative A 6961308340) SQ EPITH (test code = HPF 8962372564) Lab Interpretation (test Abnormal code = 04797-9) [facility] with Clwrllmumqpu4799-40-62 16:55:13 Test Item Value Reference Range Interpretation [...] RDW-SD (test code = 42.4 fL 39.0-49.9 99857-6) RDW-CV (test code = 12.9 % 12.0-15.5 788-0) PLT (test code = See_Comment [Automated 777-3) message] The sy stem which generated this result transmitted reference range : 166 - 358 10*3/ ?L. The reference r susan was not used to interpret this result as normal/abnormal . MPV (test code = 11.5 fL 9.5-12.9 06841-6) NRBC/100 WBC (test See_Comment [Automat ed code = 2803846037) message] The system which generated this result transmitted reference range : 0.0 - 10.0 /100 WBCs. The refer ence range was not u sed to interpret th is result as normal/abnormal . NRBC x10^3 (test code <0.01 See_Comment [Auto mated = 0803625109) message] The s ystem which generated this result transmitted reference range : 10*3/?L. The reference range was not used to interpret this result as normal/abnormal . GRAN MAT (NEUT) % 65.4 % (test code = 770-8) IMM GRAN % (test code 0.40 % = 2175522326) LYMPH % (test code = 24.9 % 736-9) MONO % (test code = 7.7 % 5905-5) EOS % (test code = 1.1 % 713-8) BASO % (test code = 0.5 % 706-2) GRAN MAT x10^3(ANC) 7.44 10*3/uL 1.88-7.09 H (test code = 3303899840) IMM GRAN x10^3 (test 0.05 10*3/uL 0.00-0.06 code = 1681905934) LYMPH x10^3 (test code 2.83 10*3/uL 1.32-3.29 = 731-0) MONO x10^3 (test code 0.88 10*3/uL 0.33-0.92 = 742-7) EOS x10^3 (test code = 0.12 10*3/uL 0.03-0.39 711-2) BASO x10^3 (test code 0.06 10*3/uL 0.01-0.07 = 704-7) Lab Interpretation Abnormal (test code = 14950-5) [facility] [id number] 16:48:00 Test Item Value Reference Range Interpretation Comments POCT PREG (test code = 1605) negative On board controls acceptable with C present Line (test code = 3574) Lab Interpretation (test code = Normal 90782-1) [facility] CenterCT Head W/O Leqaetcg4412-96-80 19:42:08 No acute intracranial abnormality. CT HEAD [...] and mastoidair cells are clear.IMPRESSIONNo acute intracranial abnormality.[facility] CenterTroponin I 2020-04-27 19:09:00 Test Item Value Reference Range Interpretation Comments TROPONIN I (test <0.012 See_Comment [Automated code = 2313254928) message] The system which generated this result [...] ? Lab Interpretation Normal (test code = 89768-3) [facility] CenterBasi Metabolic Panel (NA, K, CL, CO2, GLUCOSE, BUN, CREATININE, CA)2020-04-27 18:58:00 Test Item Value Reference Range Interpretation Comments NA (test code = 139 mmol/L 135-145 2403444715) K (test code = 4.1 mmol/L 3.5-5 3447124481) CL (test code = 98 mmol/L 98-108 6324899608) CO2 TOTAL (test code = 32 mmol/L 23-31 H 8549634951) AGAP (test code = 2-16 3462380652) BUN (test code = 11 mg/dL 7-23 2987991503) GLUCOSE (test code = 86 mg/dL 70-110 6154789401) CREATININE (test code = 0.78 mg/dL 0.5-1.04 8351304502) CALCIUM (test code = 10.2 mg/dL 8.6-10.6 2899085579) eGFR Calculation mL/min/1.73m2 (Non-) (test code = 9760165140) eGFR Calculation mL/min/1.73m2 () (test code = 8627463742) JOSH (test code = JOSH) Association of [...] tests). Lab Interpretation Abnormal (test code = 58707-0) [facility] with Qddsjcysfzey3020-32-99 18:54:00 Test Item Value Reference Range Interpretation Comments WBC (test code = See_Comment [Automated 6838-2) message] The sy stem which generated this result transmitted reference range : 4.30 - 11.10 10*3/?L. The reference range was not used to interpret this result as normal/abnormal . RBC (test code = See_Comment [Automated 884-8) message] The sy stem which generated this [...] RDW-SD (test code = 42.5 fL 39-49.9 44136-8) RDW-CV (test code = 12.8 % 12-15.5 788-0) PLT (test code = See_Comment [Automated 777-3) message] The sy stem which generated this result transmitted reference range : 166 - 358 10*3/ ?L. The reference r susan was not used to interpret this result as normal/abnormal . MPV (test code = 11.9 fL 9.5-12.9 19994-8) NRBC/100 WBC (test See_Comment [Automat ed code = 0114728273) message] The system which generated this result transmitted reference range : 0.0 - 10.0 /100 WBCs. The refer ence range was not u sed to interpret th is result as normal/abnormal . NRBC x10^3 (test code <0.01 See_Comment [Auto mated = 1110585106) message] The s ystem which generated this result transmitted reference range : 10*3/?L. The reference range was not used to interpret this result as normal/abnormal . GRAN MAT (NEUT) % 62.6 % (test code = 770-8) IMM GRAN % (test code 0.20 % = 6108917971) LYMPH % (test code = 26.7 % 736-9) MONO % (test code = 9.0 % 5905-5) EOS % (test code = 1.1 % 713-8) BASO % (test code = 0.4 % 706-2) GRAN MAT x10^3(ANC) 5.07 10*3/uL 1.88-7.09 (test code = 9287430712) IMM GRAN x10^3 (test <0.03 0-0.06 code = 7297360322) LYMPH x10^3 (test code 2.16 10*3/uL 1.32-3.29 = 731-0) MONO x10^3 (test code 0.73 10*3/uL 0.33-0.92 = 742-7) EOS x10^3 (test code = 0.09 10*3/uL 0.03-0.39 711-2) BASO x10^3 (test code 0.03 10*3/uL 0.01-0.07 = 704-7) Lab Interpretation Abnormal (test code = 03030-5) [facility] CenterTroponin [id number] 11:05:00 Test Item Value Reference Range Interpretation Comments TROPONIN I (test <0.012 See_Comment [Automated code = 0831853278) message] The system which generated this result [...] ? Lab Interpretation Normal (test code = 11357-0) [facility] CenterBasi Metabolic Panel (NA, K, CL, CO2, GLUCOSE, BUN, CREATININE, CA)2020-02-08 10:55:00 Test Item Value Reference Range Interpretation Comments NA (test code = 138 mmol/L 135-145 9381781365) K (test code = 4.1 mmol/L 3.5-5 4867124798) CL (test code = 104 mmol/L 98-108 1789283598) CO2 TOTAL (test code = 26 mmol/L 23-31 3262773668) AGAP (test code = 2-16 8256909009) BUN (test code = 14 mg/dL 7-23 0761709114) GLUCOSE (test code = 94 mg/dL 70-110 6490660260) CREATININE (test code 0.91 mg/dL 0.5-1.04 = 2057753009) CALCIUM (test code = 9.0 mg/dL 8.6-10.6 5487154042) eGFR Calculation mL/min/1.73m2 (Non-) (test code = 5829958021) eGFR Calculation mL/min/1.73m2 () (test code = 2205702318) JOSH (test code = JOSH) Association of [...] or urine or abnormalities in imaging tests). [facility] with Ahpevboxwidb2548-86-33 10:26:00 Test Item Value Reference Range Interpretation Comments WBC (test code = See_Comment [Automated message] 6690-2) The system [employer] generated this result transmitted ref erence range: 4.30 - 1 1.10 10*3/?L. The re ference range was not u sed to interpret this result as normal/abnor mal. RBC (test code = See_Comment [Automated message] 129-8) The system [employer] generated this result transmitted ref erence range: [...] RDW-SD (test code 45.3 fL 39-49.9 = 11082-8) RDW-CV (test code 13.4 % 12-15.5 = 788-0) PLT (test code = See_Comment [Automated message] 777-3) The system [employer] generated this result transmitted ref erence range: 166 - 35 8 10*3/?L. The re ference range was not u sed to interpret this result as normal/abnor mal. MPV (test code = 11.9 fL 9.5-12.9 89851-4) NRBC/100 WBC (test See_Comment [Automat ed message] code = 4998760675) The syste [employer] which generated this result transmitted ref erence range: 0.0 - 10 .0 /100 WBCs. The refer ence range was not u sed to interpret this result as normal/abnor mal. NRBC x10^3 (test <0.01 See_Comment [Automated message] code = 3924338121) The syste m which generated this result transmitted ref erence range: 10*3/?L. The reference range was not used to interpr et this result as normal/abnormal . GRAN MAT (NEUT) % 63.9 % (test code = 770-8) IMM GRAN % (test 0.40 % code = 5669806651) LYMPH % (test code 26.9 % = 736-9) MONO % (test code 6.7 % = 5905-5) EOS % (test code = 1.6 % 713-8) BASO % (test code 0.5 % = 706-2) GRAN MAT 4.94 10*3/uL 1.88-7.09 x10^3(ANC) (test code = 7225293661) IMM GRAN x10^3 0.03 10*3/uL 0-0.06 (test code = 1086689128) LYMPH x10^3 (test 2.08 10*3/uL 1.32-3.29 code = 731-0) MONO x10^3 (test 0.52 10*3/uL 0.33-0.92 code = 742-7) EOS x10^3 (test 0.12 10*3/uL 0.03-0.39 code = 711-2) BASO x10^3 (test 0.04 10*3/uL 0.01-0.07 code = 704-7) [id number] 05:34:00 Test Item Value Reference Range Interpretation Comments TROPONIN I (test <0.012 See_Comment [Automated code = 5503196538) message] The system which generated this result [...] ? Lab Interpretation Normal (test code = 04493-8) [facility] CenterThyroid Stimulating Hormone (TSH)2020-02-08 02:02:00 Test Item Value Reference Range Interpretation Comments TSH (test code = See_Comment [Automated message] 7373781344) The system [employer] generated this result transmitted ref erence range: 0.45 - 4 .70 mIU/L. The refe rence range was not u sed to interpret this result as normal/abnor mal. Lab Interpretation (test Normal code = 14226-0) [facility] CenterMagnesium [id number] 01:31:00 Test Item Value Reference Range Interpretation Comments MAGNESIUM (test code = 8182351271) 2.1 mg/dL 1.7-2.4 Lab Interpretation (test code = Normal 32334-6) [facility] CenterLipid Panel (Total Cholesterol, Triglycerides, HDL)2020-02-08 01:31:00 Test Item Value Reference Range Interpretation Comments CHOL (test code = 220 mg/dL 120-200 H 1926917612) HDL (test code = 44 mg/dL >50 L 4523354688) HDLC RATIO (test code = See_Comment H [Au tomated message] 6474185148) The system [employer] generated this result transmit alistair reference range : <=4.5. The refe rence range was not u sed to interpret th is result as normal/abnormal . TRIG (test code = 179 mg/dL 30-170 H 4118255279) LDL CHOL (test code = 140 mg/dL See_Comment [Auto mated message] 11028-3) The system [employer] generated this result transmit alistair reference range : <=160. The refe rence range was not u sed to interpret th is result as normal/abnormal . VLDL (test code = 36 mg/dL 5-60 0537271868) Lab Interpretation (test Abnormal code = 35806-2) [facility] CenterCOVID-19 (ID NOW RAPID TESTING)2020-02-07 23:26:00 Test Item Value Reference Range Interpretation Comments SARS-CoV-2 Rapid ID NOW Not Detected Not Detected (test code = 87484-0) JOSH (test code = JOSH) ID NOW COVID-19 Assay is an isothermal nucleic acid amplification test intended for the qualitative detection of nucleic acid from SARS-CoV-2 viral RNA in nasopharyngeal (DIRECTOR OF RESOURCE DEVELOPMENT) specimens. It is used under Emergency Use [...] indicated. Lab Interpretation Normal (test code = 12979-5) [facility] CenterTROPONIN [id number] 22:52:00 Test Item Value Reference Range Interpretation Comments TROPONIN I (test <0.012 See_Comment [Automated code = 1892480238) message] The system which generated this result [...] ? Lab Interpretation Normal (test code = 85432-7) [facility] [id number] 21:53:30CT Abdomen and Pelvis with intravenous contrast. [...] Unremarkable.CONCLUSION: No acute intra-abdominal or pelvic abnormalities detected.[facility] CHEST PULMONARY [id number] 21:48:38 No acute or chronic pulmonary embolus [...] segmental level. Preliminary Report Dictated by Resident: Rahda Knox MD., have reviewed this study and agree with theabove report.[facility] CenterUrinalysis2020-10-27 20:52:00 Test Item Value Reference Range Interpretation Comments APPEARANCE (test code = Clear Clear 2639046146) COLOR (test code = Straw Yellow A 9004027547) PH (test code = 4.8-8.0 0231354059) SP GRAVITY (test code = 1.003-1.030 9461285979) GLU U QUAL (test code = Normal Normal 3392258275) BLOOD (test code = Negative Negative 4120247763) KETONES (test code = Negative Negative 8828391541) PROTEIN (test code = Negative Negative 2887-8) UROBILIN (test code = Normal Normal 7704858611) BILIRUBIN (test code = Negative Negative 9023622922) NITRITE (test code = Negative Negative 1808779120) LEUK ROXANE (test code = Negative Negative 1787007591) RBC/HPF (test code = See_Comment [Autom ated message] 7926350018) The system [employer] generated this result transmitted ref erence range: 0 - 3 HP F. The reference range was not used to int erpret this result as normal/abnormal . WBC/HPF (test code = See_Comment [Autom ated message] 6151137582) The system [employer] generated this result transmitted ref erence range: 0 - 5 HP F. The reference range was not used to int erpret this result as normal/abnormal . BACTERIA (test code = Few Negative A 4988875037) MUCOUS (test code = Slight Negative LPF A 5163038425) SQ EPITH (test code = HPF 6770313166) Lab Interpretation (test Abnormal code = 50083-4) [facility] 1 [id number] 20:38:53HISTORY: Chest pain. TECHNIQUE: Portable AP erect [...] of acute cardiopulmonary disease. [facility] [id number] 20:36:00 Test Item Value Reference Range Interpretation Comments TROPONIN I (test <0.012 See_Comment [Automated code = 5443395122) message] The system which generated this result [...] ? Lab Interpretation Normal (test code = 86912-6) [facility] CenterN-TERMINAL [id number] 20:33:00 Test Item Value Reference Range Interpretation Comments NT-proBNP (test code 53 pg/mL See_Comment [Autom ated = 9272196269) message] The system which generated this result transmitted reference range : <=125. The reference range was not used to interpret this result as normal/abnormal . JOSH (test code = JOSH) Biotin has been reported to cause a negative bias, interpret results relative to patient's use of biotin. Lab Interpretation Normal (test code = 21418-5) [facility] CenteraPTT2020-10-27 20:29:00 Test Item Value Reference Range Interpretation Comments APTT Patient (test See_Comment [Automat ed code = 3173-2) message] The system which generated this result transmitted reference range : 23 - 38 Seconds . The reference range was not used to interpr et this result as normal/abnormal . JOSH (test code = JOSH) The [facility] patient population mean normal value for aPTT is 30 seconds. Lab Interpretation Normal (test code = 13010-3) [facility] CenterProthrombin Time (PT) / [id number] 20:27:00 Test Item Value Reference Range Interpretation [...] tions. Lab Interpretation (test Normal code = 61870-1) [facility] (NA, K, CL, CO2, GLUCOSE, BUN, CREATININE, CA)2020-02-07 20:24:00 Test Item Value Reference Range Interpretation Comments NA (test code = 138 mmol/L 135-145 9841423546) K (test code = 3.9 mmol/L 3.5-5 9189237556) CL (test code = 98 mmol/L 98-108 5866970604) CO2 TOTAL (test code = 32 mmol/L 23-31 H 7503114000) AGAP (test code = 2-16 9946410313) BUN (test code = 13 mg/dL 7-23 0871646924) GLUCOSE (test code = 103 mg/dL 70-110 3431328779) CREATININE (test code = 1.33 mg/dL 0.5-1.04 H 1856328292) CALCIUM (test code = 10.0 mg/dL 8.6-10.6 7173862068) eGFR Calculation mL/min/1.73m2 (Non-) (test code = 4441917525) eGFR Calculation mL/min/1.73m2 () (test code = 1662888165) JOSH (test code = JOSH) Association of [...] tests). Lab Interpretation Abnormal (test code = 34247-5) [facility] CenterHepatic Function Panel (ALB, T.PRO, BILI T, BU/BC, ALT, AST, ALK PHOS)2020-02-07 20:24:00 Test Item Value Reference Range Interpretation Comments TOTAL BILI (test code = 0995334717) 0.4 mg/dL 0.1-1.1 BILI UNCON (test code = 8356696536) 0.3 mg/dL 0.1-1.1 BILI CONJ (test code = 4368877000) 0.0 mg/dL 0-0.3 T PROTEIN (test code = 4144915506) 7.4 g/dL 6.3-8.2 ALBUMIN (test code = 3589223855) 4.4 g/dL 3.5-5 ALK PHOS (test code = 3591003738) 99 U/L 34-122 ALTv (test code = 1742-6) 16 U/L 5-35 AST(SGOT) (test code = 2835973282) 19 U/L 13-40 Lab Interpretation (test code = Normal 15765-9) [facility] CenterLipase [id number] 20:24:00 Test Item Value Reference Range Interpretation Comments LIPASE (test code = 5999486682) 393 U/L 0-220 H Lab Interpretation (test code = Abnormal 97097-5) [facility] CenterCBC with [id number] 20:19:00 Test Item Value Reference Range Interpretation Comments WBC (test code = See_Comment [Automated message] 6690-2) The system [employer] generated this result transmitted ref erence range: 4.30 - 1 1.10 10*3/?L. The re ference range was not u sed to interpret this result as normal/abnor mal. RBC (test code = See_Comment [Automated message] 789-8) The system [employer] generated this result transmitted ref erence range: [...] RDW-SD (test code 43.5 fL 39-49.9 = 93455-1) RDW-CV (test code 13.2 % 12-15.5 = 788-0) PLT (test code = See_Comment [Automated message] 777-3) The system [employer] generated this result transmitted ref erence range: 166 - 35 8 10*3/?L. The re ference range was not u sed to interpret this result as normal/abnor mal. MPV (test code = 12.1 fL 9.5-12.9 63922-2) NRBC/100 WBC (test See_Comment [Automat ed message] code = 4048833370) The syste m which generated this result transmitted ref erence range: 0.0 - 10 .0 /100 WBCs. The refer ence range was not u sed to interpret this result as normal/abnor mal. NRBC x10^3 (test <0.01 See_Comment [Automated message] code = 9843810515) The syste m which generated this result transmitted ref erence range: 10*3/?L. The reference range was not used to interpr et this result as normal/abnormal . GRAN MAT (NEUT) % 62.9 % (test code = 770-8) IMM GRAN % (test 0.50 % code = 6458646580) LYMPH % (test code 26.9 % = 736-9) MONO % (test code 7.8 % = 5905-5) EOS % (test code = 1.2 % 713-8) BASO % (test code 0.7 % = 706-2) GRAN MAT 6.08 10*3/uL 1.88-7.09 x10^3(ANC) (test code = 9134450668) IMM GRAN x10^3 0.05 10*3/uL 0-0.06 (test code = 7833331342) LYMPH x10^3 (test 2.61 10*3/uL 1.32-3.29 code = 731-0) MONO x10^3 (test 0.76 10*3/uL 0.33-0.92 code = 742-7) EOS x10^3 (test 0.12 10*3/uL 0.03-0.39 code = 711-2) BASO x10^3 (test 0.07 10*3/uL 0.01-0.07 code = 704-7) [facility] CenterPOIL [id number] 20:03:00 Test Item Value Reference Range Interpretation Comments POCT PREG (test code = 1605) Negative On board controls acceptable with Present C Line (test code = 3574) POCT PREG LOT # (test code = 3575) [id number] POCT PREG TEST DATE (test 07/11/2021 code = 3576) Lab Interpretation (test code = Normal 33083-3) [facility] ABDOMEN PELVIS W [id number] 00:58:03Impression: 1. Bilateral pyelonephritis.2. Mild right renal cortical scarring.3. Mild hepatomegaly. RL: 460 End of Report Ordering Physician: MARK MAC History: Acute generalized abdominal pain. Technique: CT [...] cortical scarring.3. Mild hepatomegaly.RL: 460End of Report [facility]CH[facility] CenterPOIL TEST 2020-01-24 23:22:00 Test Item Value Reference Range Interpretation Comments POCT PREG (test code = 1605) negative On board controls acceptable with present C Line (test code = 3574) POCT PREG LOT # (test code = 3575) [id number] POCT PREG TEST DATE (test 2020-11-10 code = 3576) Lab Interpretation (test code = Normal 54306-7) [facility] CenterURINALYSIS2020-10-13 23:21:00 Test Item Value Reference Range Interpretation Comments APPEARANCE (test code = Hazy Clear A 4862476277) COLOR (test code = Yellow Yellow 6720246137) PH (test code = 4.8-8.0 6796073503) SP GRAVITY (test code = 1.003-1.030 4236941175) GLU U QUAL (test code = Normal Normal 3101806651) BLOOD (test code = Negative Negative 0063471741) KETONES (test code = Negative Negative 8760300299) PROTEIN (test code = Negative Negative 2887-8) UROBILIN (test code = Normal Normal 2835595496) BILIRUBIN (test code = Negative Negative 7355174499) NITRITE (test code = Negative Negative 8748265176) LEUK ROXANE (test code = 250/uL Negative A 5087969263) RBC/HPF (test code = See_Comment [Autom ated message] 8721507088) The system [employer] generated this result transmitted ref erence range: 0 - 3 HP F. The reference range was not used to int erpret this result as normal/abnormal . WBC/HPF (test code = See_Comment H [Autom ated message] 8397162992) The system [employer] generated this result transmitted ref erence range: 0 - 5 HP F. The reference range was not used to int erpret this result as normal/abnormal . BACTERIA (test code = Moderate Negative A 9553252496) MUCOUS (test code = Slight Negative LPF A 9147821361) SQ EPITH (test code = HPF 5804196040) Lab Interpretation (test Abnormal code = 67250-0) [facility]OL[facility] (60445)2020-01-24 23:01:00 Test Item Value Reference Range Interpretation Comments NA (test code = 139 mmol/L 135-145 4438866414) K (test code = 4.0 mmol/L 3.5-5 0826974168) CL (test code = 98 mmol/L 98-108 1088698079) CO2 TOTAL (test code = 30 mmol/L 23-31 4167795152) AGAP (test code = 2-16 0955042915) BUN (test code = 13 mg/dL 7-23 1973511656) GLUCOSE (test code = 105 mg/dL 70-110 8463100238) CREATININE (test code 1.00 mg/dL 0.5-1.04 = 9029772789) TOTAL BILI (test code 0.5 mg/dL 0.1-1.1 = 1361404258) CALCIUM (test code = 10.4 mg/dL 8.6-10.6 8218289786) T PROTEIN (test code = 7.7 g/dL 6.3-8.2 1509519671) ALBUMIN (test code = 4.5 g/dL 3.5-5 0169779078) ALK PHOS (test code = 118 U/L 34-122 7274026450) ALTv (test code = 30 U/L 5-35 1742-6) AST(SGOT) (test code = 22 U/L 13-40 5208692445) eGFR Calculation mL/min/1.73m2 (Non-) (test code = 0415427372) eGFR Calculation mL/min/1.73m2 () (test code = 6518507822) JOSH (test code = JOSH) Association of [...] or urine or abnormalities in imaging tests). [facility] CenterLIPASE2020-10-13 23:00:00 Test Item Value Reference Range Interpretation Comments LIPASE (test code = 6997746742) 125 U/L 0-220 Lab Interpretation (test code = Normal 31727-7) [facility] WITH [id number] 22:55:00 Test Item Value Reference Range Interpretation Comments WBC (test code = See_Comment [Automated message] 6690-2) The system [employer] generated this result transmitted ref erence range: 4.30 - 1 1.10 10*3/?L. The re ference range was not u sed to interpret this result as normal/abnor mal. RBC (test code = See_Comment [Automated message] 409-8) The system [employer] generated this result transmitted ref erence range: [...] RDW-SD (test code 43.5 fL 39-49.9 = 94914-8) RDW-CV (test code 13.3 % 12-15.5 = 788-0) PLT (test code = See_Comment [Automated message] 347-3) The system [employer] generated this result transmitted ref erence range: 166 - 35 8 10*3/?L. The re ference range was not u sed to interpret this result as normal/abnor mal. MPV (test code = 11.6 fL 9.5-12.9 15768-1) NRBC/100 WBC (test See_Comment [Automat ed message] code = 1670599244) The syste [employer] which generated this result transmitted ref erence range: 0.0 - 10 .0 /100 WBCs. The refer ence range was not u sed to interpret this result as normal/abnor mal. NRBC x10^3 (test <0.01 See_Comment [Automated message] code = 4796740535) The syste m which generated this result transmitted ref erence range: 10*3/?L. The reference range was not used to interpr et this result as normal/abnormal . GRAN MAT (NEUT) % 59.7 % (test code = 770-8) IMM GRAN % (test 0.40 % code = 2820218806) LYMPH % (test code 29.5 % = 736-9) MONO % (test code 8.2 % = 5905-5) EOS % (test code = 1.7 % 713-8) BASO % (test code 0.5 % = 706-2) GRAN MAT 5.93 10*3/uL 1.88-7.09 x10^3(ANC) (test code = 9738008114) IMM GRAN x10^3 0.04 10*3/uL 0-0.06 (test code = 5069059315) LYMPH x10^3 (test 2.93 10*3/uL 1.32-3.29 code = 731-0) MONO x10^3 (test 0.81 10*3/uL 0.33-0.92 code = 742-7) EOS x10^3 (test 0.17 10*3/uL 0.03-0.39 code = 711-2) BASO x10^3 (test 0.05 10*3/uL 0.01-0.07 code = 704-7) [facility] W [id number] 19:13:50CT Abdomen and Pelvis with intravenous contrast. [...] intrapelvic abnormalities detected.Please see additional comments above. [facility], Radiant Results Inft User [...] or intrapelvic abnormalities detected.Please see additional comments above.[facility] [id number] 18:13:00 Test Item Value Reference Range Interpretation Comments APPEARANCE (test code = Clear Clear 4463368207) COLOR (test code = Yellow Yellow 8534096612) PH (test code = 4.8-8.0 0392600408) SP GRAVITY (test code = 1.003-1.030 4378608952) GLU U QUAL (test code = Normal Normal 2334258273) BLOOD (test code = Negative Negative 0104715387) KETONES (test code = Negative Negative 8920021585) PROTEIN (test code = Negative Negative 2887-8) UROBILIN (test code = Normal Normal 0480964937) BILIRUBIN (test code = Negative Negative 8163790443) NITRITE (test code = Negative Negative 2639211367) LEUK ROXANE (test code = Negative Negative 8405747929) RBC/HPF (test code = See_Comment [Autom ated message] 1028160104) The system [employer] generated this result transmitted ref erence range: 0 - 3 HP F. The reference range was not used to int erpret this result as normal/abnormal . WBC/HPF (test code = See_Comment [Autom ated message] 6339304138) The system [employer] generated this result transmitted ref erence range: 0 - 5 HP F. The reference range was not used to int erpret this result as normal/abnormal . BACTERIA (test code = Negative Negative 5642549512) MUCOUS (test code = Slight Negative LPF A 2482943240) SQ EPITH (test code = HPF 9569579074) Lab Interpretation (test Abnormal code = 84403-2) [facility]. METABOLIC PANEL (06621)2019-06-02 18:09:00 Test Item Value Reference Range Interpretation Comments NA (test code = 138 mmol/L 135-145 4927048780) K (test code = 4.2 mmol/L 3.5-5 5164219691) CL (test code = 102 mmol/L 98-108 8779830323) CO2 TOTAL (test code = 27 mmol/L 23-31 7231386428) AGAP (test code = 2-16 2562550114) BUN (test code = 12 mg/dL 7-23 9653792685) GLUCOSE (test code = 93 mg/dL 70-110 9820899930) CREATININE (test code 0.73 mg/dL 0.5-1.04 = 4959420098) TOTAL BILI (test code 0.4 mg/dL 0.1-1.1 = 9931965794) CALCIUM (test code = 9.5 mg/dL 8.6-10.6 0850359171) T PROTEIN (test code = 7.3 g/dL 6.3-8.2 1922853433) ALBUMIN (test code = 4.6 g/dL 3.5-5 3461974415) ALK PHOS (test code = 84 U/L 34-122 6869624639) ALTv (test code = 12 U/L 5-35 1742-6) AST(SGOT) (test code = 21 U/L 13-40 8894857316) eGFR Calculation mL/min/1.73m2 (Non-) (test code = 7129285164) eGFR Calculation mL/min/1.73m2 () (test code = 4030195751) JOSH (test code = JOSH) Association of [...] or urine or abnormalities in imaging tests). [facility] CenterLipase Muhma0133-36-75 18:09:00 Test Item Value Reference Range Interpretation Comments LIPASE (test code = 4172752663) 108 U/L 0-220 Lab Interpretation (test code = Normal 79033-5) [facility] CenterCBC WITH [id number] 18:01:00 Test Item Value Reference Range Interpretation Comments WBC (test code = See_Comment [Automated message] 6690-2) The system [employer] generated this result transmitted ref erence range: [...] RDW-SD (test code 46.2 fL 39-49.9 = 28772-1) RDW-CV (test code 14.1 % 12-15.5 = 788-0) PLT (test code = See_Comment [Automated message] 777-3) The system [employer] generated this result transmitted ref erence range: 166 - 35 8 10*3/?L. The re ference range was not u sed to interpret this result as normal/abnor mal. MPV (test code = 10.8 fL 9.5-12.9 50439-1) NRBC/100 WBC (test See_Comment [Automat ed message] code = 4198958583) The syste m which generated this result transmitted ref erence range: 0.0 - 10 .0 /100 WBCs. The refer ence range was not u sed to interpret this result as normal/abnor mal. NRBC x10^3 (test <0.01 See_Comment [Automated message] code = 4984344334) The syste m which generated this result transmitted ref erence range: 10*3/?L. The reference range was not used to interpr et this result as normal/abnormal . GRAN MAT (NEUT) % 69.9 % (test code = 770-8) IMM GRAN % (test 0.70 % code = 0923986180) LYMPH % (test code 21.2 % = 736-9) MONO % (test code 6.2 % = 5905-5) EOS % (test code = 1.4 % 713-8) BASO % (test code 0.6 % = 706-2) GRAN MAT 6.08 10*3/uL 1.88-7.09 x10^3(ANC) (test code = 5626852146) IMM GRAN x10^3 0.06 10*3/uL 0-0.06 (test code = 5382323710) LYMPH x10^3 (test 1.84 10*3/uL 1.32-3.29 code = 731-0) MONO x10^3 (test 0.54 10*3/uL 0.33-0.92 code = 742-7) EOS x10^3 (test 0.12 10*3/uL 0.03-0.39 code = 711-2) BASO x10^3 (test 0.05 10*3/uL 0.01-0.07 code = 704-7) [facility] CenterPOCT Test, [id number] 17:48:00 Test Item Value Reference Range Interpretation Comments POCT PREG (test code = 1605) negative POCT PREG LOT # (test code = 3575) [id number] POCT PREG TEST DATE (test 11/10/2020 code = 3576) Lab Interpretation (test code = Normal 04505-9) [facility]- XR CHEST 1 [id number] 19:54:00 Name: VIC REEVES [place] : 1980 Age/S: 38 / F [address] Unit #: [id number] Loc: [place] [address] Phys: Génesis King MD Acct: [id number] Dis Date: Status: ADM IN PHONE #: [phone] Exam Date: 02/22/20191940 FAX #: Reason: SOB EXAMS: CPT: [id number] XR CHEST 1 V72430 Fluoro Time: DAP (Gy m2): Air Kerma [...] PAGE 1 Signed Report Name: VIC REEVES [place] : 1980 Age/S: 38 / F [address] Unit #: [id number] Loc: [place] [address] Phys: Génesis King MD Acct: [id number] Dis Date: Status: ADM IN PHONE #: [phone] Exam Date: 02/22/2019 194 FAX #: Reason: SOB EXAMS: CPT: [id number] XR CHEST 1 V 42953 Fluoro Time: DAP (Gy m2): Air Kerma (mGy): (Continued) Technologist: Jordan Chacon, RT(R)(CT) Trnscb Date/Time: 02/22/2019 (1953) t.[email or web address].CLW Orig Print D/T: S: 02/22/2019 (1956)PAGE 2 Signed Report- US RETRO [id number] 15:32:00 Name: VIC REEVES [place] : 1980 Age/S: 38 / F [address] Unit #: [id number] Loc: [place] [address] Phys: Génesis King MD Acct: [id number] Dis Date: Status: ADM IN PHON E #: [phone] Exam Date: 02/22/2019 1200 FAX #: Reason: back pain EXAMS: CPT: [id number] [facility] RET[facility] LTD [address] EXAMINATION: - US RETRO LTD. LOCATION: T18. [...] Génesis King MD Technologist: Nina Andrews, RT(R),IMAN(AB) Trnorb Date/Time: 02/22/2019 (1532) BarbieANS4 PAGE 1 Signed Report Name: VIC REEVES [facility] : 1980 Age/S: 38 / F [address] Unit #:[id number] Loc: [place] [address] Phys: Génesis King MD Acct: [id number] Dis Date: Status: ADMIN PHONE #: [phone] Exam Date: 02/22/2019 1200 FAX #: Reason: back pain EXAMS: CPT: [id number] [facility] LTD [address] (Continued) Orig Print D/T: S: 02/22/2019 (1538) Probe: PAGE 2 Signed ReportCBC W/AUTO [id number] 12:09:00 Test Item Value Reference Range Interpretation [...] MDIFF) CONSISTA NT WITH AUTO DIFFERENTIAL. RBC [id number] 12:09:00 Test Item Value Reference Range Interpretation Comments ANISOCYTOSIS (test code = 1+ NONE ANISO) MICROCYTOSIS (test code = 1+ ON SCAN NONE MICR) PLATELET ESTIMATE (test ADEQUATE THOUSAND ADEQUATE code = PLTEST) PLATELET MORPHOLOGY (test NORMAL code = PLTMORPH) CBC W/AUTO [id number] 12:08:00 Test Item Value Reference Range Interpretation [...] = NO DIFF/SCN CRITERIA MDIFF) CBC W/AUTO [id number] 12:08:00 Test Item Value Reference Range Interpretation [...] code = NO DIFF/SCN CRITERIA MDIFF) RBC [id number] 12:08:00 Test Item Value Reference Range Interpretation Comments ANISOCYTOSIS (test code = 1+ NONE ANISO) MICROCYTOSIS (test code = 1+ ON SCAN NONE MICR) PLATELET ESTIMATE (test ADEQUATE THOUSAND ADEQUATE code = PLTEST) PLATELET MORPHOLOGY (test NORMAL code = PLTMORPH) CBC W/AUTO [id number] 12:08:00 Test Item Value Reference Range Interpretation [...] = NO DIFF/SCN CRITERIA MDIFF) BASIC METABOLIC [id number] 07:07:00 Test Item Value Reference Range Interpretation [...] CA) 7.8 MG/DL 8.5-10.1 L CBC W/AUTO [id number] 06:58:00 Test Item Value Reference Range Interpretation [...] ng/mL are obtained. - CT ABD PELVIS W/[id number] 20:34:00 Name: VIC REEVES [facility] : 1980 Age/S: 38 / F [address] [facility] [address] Unit #: [id number] Loc: [place] [address] Phys: Cony Partida MD Acct: [id number] Dis Date: Status: ADM IN PHONE #: [phone] Exam Date: 02/19/20192024 FAX #: Reason: acute PN, possible ureteral stone EXAMS: CPT: [id number] CT ABD PELVIS W/CONT 51970 CT Abdomen and Pelvis with contrast. Location: H9 Clinical indication: 38-year-old with pyelonephritis and possible ureteral stone. Comparison: None Technique: Co mputed axial images were obtained from the diaphragms through the pubic symphysis following IV administration of 100 mL Isovue-300. Up to date CT equipment and radiation dose reduction technique were utilized. Findings: Abdomen: Lung bases are clear. The liver, gallbladder, spleen, adrenal glands, andpancreas are without acute abnormality. There is heterogeneous [...] 1 Signed ReportUA RFLX MICR CULT IF [id number] 19:43:00 Test Item Value Reference Range Interpretation [...] culture: Flank PainUA RFLX MICR CULT IF [id number] 19:28:00 Test Item Value Reference Range Interpretation [...] 50,000 2ND & 3R D TRIMESTER LACTIC [id number] 18:52:00 Test Item Value Reference Range Interpretation Comments LACTIC ACID (test code = LACT) 0.7 mmol/L 0.4-2.0 N CBC W/AUTO [id number] 17:55:00 Test Item Value Reference Range Interpretation [...] MDIFF) CONSISTA NT WITH AUTO DIFFERENTIAL. RBC [id number] 17:55:00 Test Item Value Reference Range Interpretation Comments ANISOCYTOSIS (test code = ANISO) 1+ NONE CBC W/AUTO [id number] 17:54:00 Test Item Value Reference Range Interpretation [...] CONSISTA NT WITH AUTO DIFFERENTIAL. CBC W/AUTO [id number] 17:54:00 Test Item Value Reference Range Interpretation [...] CONSISTA NT WITH AUTO DIFFERENTIAL. BASIC METABOLIC [id number] 17:43:00 Test Item Value Reference Range Interpretation [...] Unit/L 84-246 N code = LDH) LACTIC [id number] 17:43:00 Test Item Value Reference Range Interpretation Comments LACTIC ACID (test code = LACT) 0.8 mmol/L 0.4-2.0 N BASIC METABOLIC [id number] 17:36:00 Test Item Value Reference Range Interpretation [...] code Unit/L 84-246 = LDH) CBC W/AUTO [id number] 17:35:00 Test Item Value Reference Range Interpretation [...] MDIFF) Notes Date/Time Note Provider Source 2019-02-23 09:00:00 CNlypqocgto278072120462-50-49N57:00:00 [facility]Discharge SummaryREPORT#:[id number] REPORT STATUS: SignedDATE:02/23/19 TIME:09 PATIENT: VIC REEVES UNIT #: [id number]#: [id number] ROOM[facility]DOB: [birth year] AGE: 38 SEX: F ATTEND: Cony Partida [facility] 9 AUTHOR: Génesis King MD * ALL edits or amendments must be made on the electronic/computer document * General InformationDate of admission:Observation Start Date: Date of admission: 02/19/19 Date of discharge: 02/23/19Admission diagnosis:R flank painDischarge diagnosis:OBSTRUCTIVE UROPATHY / R pyelonephrtitis - better with IVF and Antibx - cultures neg and patient feels better R pyelonephritis R upper pole renal cyst Severe sepsis secondary to R Pyelonephritis Depression and other comorbiditiesresume home meds and adjust as needed better with IVF and Antibx, juanito l dc home on 10 days of PO antibx, patient betterand wants to go home Hospital course:OBSTRUCTIVE UROPATHY / R pyelonephrtitis - better with IVF and Antibx - cultures neg and patient feels better R pyelonephritis R upper pole renal cyst Severe sepsis secondary to R Pyelonephritis Depression and other comorbiditiesresume home meds and adjust as needed better with IVF and Antibx, will dc home on 10 days of PO antibx, patient betterand wants to go home Consultants: urologyPt. condition on discharge: improved, stable ObjectiveVS/I OLast Documented: Result Date Time Pulse Ox 96 02/23 718 B/P 158/97 02/23 718 B/P Mean 117.4 02/23 718 O2 Delivery Room air 02/23 718 Temp 98.1 02/23 718 Pulse 60 02/23 718 Resp 18 02/23 8 O2 Flow Rate 2.945835 02/22 2014 24 hour I O ending at 0700: 02/23 0700 02/22 1900 Intake Total 960.00 280 Output Total Balance 960.00 280 Intake, IV 600.00 Intake, Oral 360 280 Number Voids 1 Patient Weight Weight (lb): 155Weight (oz): 6.81Weight (kg): 70.500 General appearance : alertENT: normal noseCardiovascular: regular rat e rhythmGI: softExtremities: moves allSkin: dry Discharge InstructionsActivity: as toleratedPrescriptions: on chartDischarge management: greater than 30 mins at 0905 RPT #: [id number] OF REPORT DSDischarge kmfwkut1970-92-74C30:00:00L.[id number] v ailable for patient iudvNXAKYISGSNQGSG1617-61-89H04:05:42 2019-02-22 22:45:00 [id number]:45:00 [facility] ([facility])Urology Progress NoteREPORT#:[id number] REPORT STATUS: SignedDATE:02/22/19 TIME:2244 PATIENT: VIC REEVES UNIT #: [id number]#: [id number] [address] AGE: 38 SEX: F ATTEND: Cony Partida [facility] DT: 9 AUTHOR: Art Nguyen MD * ALL edits or amendment s must be made on the electronic/computer document * SubjectiveChief Complaint:pyelonephritisComments:having pain on right side, now bilateral flankno dysuria Objective Physical ExamVS/I O:Last Documented: Result Date Time O2 Delivery Nasal cannula 02/22 2014 O2 Flow Rate 2.933452 02/22 2014 Pulse Ox 100 02/22 1954 B/P 130/69 02/22 1954 B/P Mean 89.2 02/22 1954 Temp 98.8 02/22 1954 Pulse 69 02/22 1954 Resp 16 02/22 1954 24 hour I O ending at 0700: 02/22 0700 02/21 1900 Intake Total Output Total Balance Number 1 Bowel Movements Patient Weight Weight (lb): 155Weight (oz): 6.81Weight (kg): 70.500 Head/Eyes: atraumatic, EOMI, normocephalicRespiratory: no distress, aerating well, symmetric expansionExtremities: n o edema, no clubbing, no cyanosis Diagnosis, Assessment PlanFree Text A P:A: pyelonephritis? passed stone, though more likely ureteritis/pyelonephritis P:On rocephinabx per primarycultures negative, though urine culture contaminatedno urologic procedural interventionrepeat renal US noted, no hydronephrosis ?right renal cyst likely artifcat at 2248 RPT #: [id number] OF REPORT PRProgress Vjiu1994-53-57G75:45:00L.[id number] altaf able for patient tflsBSCDVFFRRNBLWN2637-18-06I35:49:08 2019-02-22 09:58:00 [id number]:58:00 [facility] Progress NoteREPORT#:[id number] REPORT STATUS: SignedDATE:02/22/19 TIME:0958 PATIENT: VIC REEVES UNIT #: [id number]#: [id number] [address] AGE: 38 SEX: F ATTEND: Cony Partida [facility] DT: 9 AUTHOR: Génesis King MD * ALL edits or amendments must be made on the electronic/computer document * SubjectiveChief Complaint:c/o L flank pain, no nausea, no vomiting, no fever Review of SystemsConstitutional:Reports: chills, fever, generalized weakness. Skin:Denies: bruising. Allergy/Immun:Denies: itching. Eyes:Denies: redness, discharge. ENT:Denies: hearing loss. Respiratory:Denies: SOB. Cardiovascular:Denies: chest pain. GI:Reports: nausea, vomiting. :Reports: dysuria, flank pain. Musculoskeletal:Denies: extremity swelling. Heme:Denies: bleeding. Neuro:Denies: confusion. Psych:Denies: agitation. Objective GeneralVS/I O:Vital Signs: Date Time Temp Pulse Resp B/P B/P Pulse O2 O2 Flow FiO2 Mean Ox Delivery Rate 02/11 2 0703 98.4 61 17 117/73 87.9 96 Room air 02/22 0339 99.3 69 18 118/77 90.8 94 02/22 0025 98.4 6 1 15 128/77 93.9 95 02/21 1901 98.6 58 18 122/79 93.1 94 02/21 1530 98.1 75 18 129/86 100.3 98 Room air 02/21 1143 98.1 51 17 106/64 77.6 96 Room air 24 hour I O ending at 0700: 02/22 0700 02/21 1900 Intake Total Output Total Balance Number 1 Bowel Movements Patient Weight Weight (lb): 155Weight (oz): 6.81Weight (kg): 70.500 Physical ExamGeneral appearance: alertHead/Eyes: atraumaticENT: normal noseNeck: full range of motionCardiovascular: normal capillary refill, regular rate rhythmRespiratory: aerating well, n o distressAbdomen: tenderness, normal bowel sounds , soft, no distention, no guardingGenitourinary: urineRectal: deferredExtremities: moves all, normal capillary refill, normal range of motion, no edemaNeuro/DOLL MAKER: alert, oriented X 3Skin: dry, intactLymphatics: no lymphadenopathyPsychiatry: normal affect Diagnosis, Assessment Plan Free Text DxA P NotesFree Text DxA P Notes:1. OBSTRUCTIVE UROPATHY with minimal dilatation of R ureter- report from [facility] CT A/P WITHOUT CONTRASTpossibly passed ureteral stonewill do Toradol prn for inflammatory painconsulted urology Dr Burrell CT shows no stone but R Pyelo 2, Acute PNua from outside ER with moderat e leucocytes, nitrites, proteinuria and large bloodcontinue IV ceftriaxonerepeat UA here with pyuriaBlood cx pending and lactic acid negPCT 0.22 3. Severe sepsis with low BP, tachycradia here, leucocytosis wbc 18.42/2 acute PNIV abxIVF 4. Depression and other comorbiditiesresume home meds and adjust as needed DVT Px- no anticoagulation neededpatient young and ambulatory Continue antibx, appreciate urology consult, follow up labs L flank pain today , new , check renal US, likely ms spasm, add dilaudid at 1000 RPT #: [id number] OF REPORT PRProgress Gido9722-00-32J05:58:00L.[id number] l able for patient pdtgQWUYGSDPZEBYJI8381-34-87Y25:00:32 2019-02-21 20:37:00 OQbwrnmdkwa962596409078-89-13T51:37:00 [facility] ([facility])Urology Progress NoteREPORT#:[id number] REPORT STATUS: SignedDATE:02/21/19 TIME:2036 PATIENT: VIC REEVES UNIT #: [id number]#: [id number] [address] AGE: 38 SEX: F ATTEND: Cony Partida [facility] DT: 9 AUTHOR: Art Nguyen MD * ALL edits or amendment s must be made on the electronic/computer document * SubjectiveChief Complaint:pyelonephritisComments:pain improving along with feverseating welldenies dysuria, hematuria Objective Physical ExamVS/I O:Last Documented: Result Date Time Pulse Ox 94 02/21 1901 B/P 122/79 02/21 1901 B/P Mean 93.1 02/21 1901 Temp 98.6 02/21 1901 Pulse 58 02/21 1901 Resp 18 02/21 1901 O2 Delivery Room air 02/21 1530 24 hour I O ending at 0700: 02/21 0700 02/11 0 1900 Intake Total 2550.00 520 Output Total Balance 2550.00 520 Intake, IV 1750.00 Intake, Oral 800 520 Number Voids 3 1 Patient Weight Weight (lb): 155Weight (oz): 6.81Weight (kg): 70.500 General appearance: alert, awake, oriented, no acute distress, pleasantHead/Eyes: atraumatic, EOMI, normocephalicRespiratory: no distress, aerating well, symmetric expansionExtremities: no edema, no clubbing, no cyanosis ResultsResults: no new labs Diagnosis, Assessment PlanFree Text A P:A: pyelonephritis? passed stone, though more likely ureteritis P:On rocephinabx per primarycultures prelim negative, though urine culture contaminatedno urologic procedural intervention at 2047 RPT #: [id number] OF REPORT PRProgress Fhfd6032-93-48J45:37:00L.[id number] l able for patient todmZUPPAKJRFCCGRW2437-13-08I48:47:24 2019-02-21 10:37:00 [id number]:37:00 [facility] ([facility])Hospitalist Progress NoteREPORT#:[id number] REPORT STATUS: SignedDATE:02/21/19 TIME:1037 PATIENT: VIC REEVES UNIT #: [id number]#: [id number] [address] AGE: 38 SEX: F ATTEND: Cony Partida [facility] DT: 9 AUTHOR: Génesis King MD * ALL edits or amendments must be made on the electronic/computer document * SubjectiveChief Complaint:R flank pain 09/20 todayfevers improving, no nausea, no vomiting Review of SystemsConstitutional:Reports: chills, fever, generalized weakness. Skin:Denies: bruising. Allergy/Immun:Denies: itching. Eyes:Denies: redness, discharge. ENT:Denies: hearing loss. Respiratory:Denies: SOB. Cardiovascular:Denies: chest pain. GI:Reports: nausea, vomiting. :Reports: dysuria, flank pain. Musculoskeletal:Denies: extremity swelling. Heme:Denies: bleeding. Neuro:Denies: confusion. Psych:Denies: agitation. Objective GeneralVS/I O:Vital Signs: Date Time Temp Pulse Resp B/P B/P Pulse O2 O2 Flow FiO2 Mean Ox Delivery Rate 02/11 0731 98.6 65 16 118/80 92.6 95 Room air 02/21 0357 100.6 78 16 120/81 94.0 97 02/21 0038 99.1 73 16 116/79 91.5 96 02/20 2109 74 16 110/72 85.0 99 02/20 210 74 16 110/72 85.0 99 02/20 1958 98.8 64 16 91/65 73.5 99 02/20 1651 98.8 65 18 98/56 70.1 97 02/20 1651 98.8 65 18 98/56 70. 1 97 02/20 1209 98.4 86 16 92/56 67.7 97 02/20 120 9 98.4 86 16 92/56 67.7 97 24 hour I O ending at 0700: 02/21 0700 02/20 1900 Intake Total 2550.0 0 520 Output Total Balance 2550.00 520 Intake, IV 1750.00 Intake, Oral 800 520 Number Voids 3 1 Patient Weight Weight (lb): 155Weight (oz): 6.81Weight (kg): 70.500 Physical ExamGeneral appearance: alert, awakeHead/Eyes: atraumaticENT : normal noseNeck: full range of motionCardiovascular: normal capillary refill, regular rate rhythmRespiratory: aerating well, n o distressAbdomen: tenderness, normal bowel sounds , soft, no distention, no guardingGenitourinary: urineRectal: deferredExtremities: moves all, normal capillary refill, normal range of motion, no edemaNeuro/DOLL MAKER: alert, oriented X 3Skin: dry, intactLymphatics: no lymphadenopathyPsychiatry: normal affect Diagnosis, Assessment Plan Free Text DxA P NotesFree Text DxA P Notes:1. OBSTRUCTIVE UROPATHY with minimal dilatation of R ureter- report from [facility] CT A/P WITHOUT CONTRASTpossibly passed ureteral stonewill do Toradol prn for inflammatory painconsulted urology Dr Burrell CT shows no stone but R Pyelo 2, Acute PNua from outside ER with moderat e leucocytes, nitrites, proteinuria and large bloodcontinue IV ceftriaxonerepeat UA here with pyuriaBlood cx pending and lactic acid negPCT 0.22 3. Severe sepsis with low BP, tachycradia here, leucocytosis wbc 18.42/2 acute PNIV abxIVF 4. Depression and other comorbiditiesresume home meds and adjust as needed DVT Px- no anticoagulation neededpatient young and ambulatory Continue antibx, await urology consult, follow up labs at 1039 RPT #: [id number] OF REPORT PRProgress Kudh4091-42-10C52:37:00L.[id number] altaf able for patient hcjuMHYFNHYZEIJUXR0275-67-80J85:39:37 2019-02-20 22:11:00 [id number]:11:992490-7 [address] [place] [address] PATIENT NAME: VIC REEVES ADMIT DATE: 02/19/19ACCOUNT NO: [id number] [facility]GE[facility] 38 REPORT TYPE: CONSULTATION SEX: F ADMITTING PHYSICIAN: Cony Partida MD ATTENDING PHYSICIAN: Cony Partida MD CONSULTATION DATE: 02/20/2019 CONSULTING PHYSICIAN: Art Nguyen MD CONSULTING PHYSICIAN : Art Nguyen MD REQUESTING PHYSICIAN: Cony Partida MD REASON FOR REQUEST: Hydronephrosis. HISTORY OF PRESENT ILLNESS: Ms. Reeves is a pleasant 38-year-old female [facility] secondary to severe right-sided flank pain. The pain was reported to radiate to the right lower quadrant, she underwent CT imaging. There were no findings of any calculus; however, there were findings of dilation of the right ureter, left foot inflammatory changes of the right kidney. The patient was admitted secondary to continued pain . REVIEW OF SYSTEMS: No fevers, no chills. No nausea, no vomiting. No chestpain, no shortness of breath. No dysuria, no gross hematuria. Otherwise,negative on 10-point review of systems . PAST MEDICAL HISTORY: Depression, chronic back pain and some tachycardia. PAST SURGICAL HISTORY : None. SOCIAL HISTORY: Negative x3. FAMILY HISTORY: Noncontributory. PHYSICAL EXAMINATION:VITAL SIGNS: Her T-max is 98.8, puls e 64, blood pressure 110/72.GENERAL: The patient i n no acute distress, alert, awake and oriented.HEENT: Atraumatic and normocephalic. EOMI.NECK: Supple. Trachea midline.LUNGS: Normal respiratory effort.ABDOMEN: Nondistended. Moderate right CVA tenderness.EXTREMITIES: No gross deficits or edema. LABORATORY DATA: Creatinine of 0.7, BUN 7. Her white count is 18.4, hemoglobincount of 10.2. Urinalysis on admission shows positive for rbc's, negativenitrites, 1+ leukocyte esterase. PATIENT NAME: VIC REEVES Imaging shows a right pyelonephritis, right ureteral calculus. Her medicalhistory is unremarkable. ASSESSMENT AND PLAN: This is a 38-year-old female, presentation consistent with a right pyelonephritis, including dilation, unclea r whether she passed a stoneand she has continued to experience significant pain symptoms along withleukocytosis. I agree with broad-spectrum antibiotics with Rocephin, willfollow up with th e urine culture which will be with symptomatic control withToradol as needed. We will continue to follow along with you. Further recommendation s are pending. Dictated By: Art Nguyen MD WT: CON:L.YANET/NAVARRO/LEXDD: 02/20/2019 22:11:41DT: 02/21/2019 07:45:57Conf#: [id number]/DID#: [id number] Authenticated and Edited by Art Nguyen MD On 02/25/19 10:33:45 PM at 1330 PATIENT NAME: VIC REEVES :45:00L.H I [id number] for patient gbvfAYCPZBNQXMJPVM5433-45-47B91:35:56 2019-02-20 12:46:00 [id number]:46:00 [facility])Hospitalist Progress NoteREPORT#:[id number] REPORT STATUS: SignedDATE:02/20/19 TIME:1246 PATIENT: VIC REEVES UNIT #: [id number]#: [id number] [address] AGE: 38 SEX: F ATTEND: Cony Partida DT: 9 AUTHOR: Cony Partida MD * ALL edits or amendment s must be made on the electronic/computer document * SubjectiveChief Complaint:R flank painfevers Review of SystemsNeuro:Denies: confusion. Objective GeneralVS/I O:Vital Signs: Date Time Temp Pulse Resp B/P B/P Pulse O2 O2 Flow FiO2 Mean Ox Delivery Rate 02/20 1209 36.9 86 16 92/56 67.7 97 02/20 0740 36.8 77 16 102/65 77.6 97 02/20 0428 38.1 85 16 92/48 63.0 100 02/20 0011 36.9 70 16 109/71 83.6 96 02/19 1919 37.4 8 9 16 98/61 73.1 99 Room air 02/19 1747 36.7 111 104/69 80.9 99 Room air 02/19 1650 38.1 80 19 96/57 70 Nasal cannula 24 hour I O ending at 0700: 02/20 0700 02/19 1900 Intake Total 800.00 Output Total Balance 800.00 Intake, IV 800.00 Number Voids 4 Patient 70.5 kg Weight Weight Be d scale Measurement Method Patient Weight Weight (lb): 155Weight (oz): 6.81Weight (kg): 70.500 Physical ExamGeneral appearance: alert, awakeCardiovascular: normal capillary refill, regular rate rhythmRespiratory: aerating well, n o distressAbdomen: tenderness, normal bowel sounds , soft, no distention, no guardingExtremities: moves all, normal capillary refill, normal range of motion, no edemaNeuro/DOLL MAKER: alert, oriented X 3Psychiatry: normal affect ResultsFindings/Data:Laboratory Tests 02/19 11/0 9 02/19 1815 1815 1700 Chemistry Lactic Acid (0.4 - 2.0 mmol/L) 0.7 0.8 Procalcitonin (0.00 - 0.05 ng/mL) 0.22 H 02/19 1700 Chemistry Sodium (134 - 147 mmol/L) 137 Potassium (3.4 - 5.0 mmol/L) 3. 3 L Chloride (100 - 108 mmol/L) 106 Carbon Dioxide (21 - 32 mmol/L) 25 Anion Gap (4.0 - 15.0 GAP calc) 6.0 BUN (7 - 18 MG/DL) 7 Creatinine (0.6 - 1.0 MG/DL) 0.6 Glomerular Filtr Rate (>60 estGFR ) >=60 max estimate Glucose (70 - 110 MG/DL) 86 Calcium [...] 450 K/mm3) 224.0 MPV (7.0 - 10.5 fL ) 11.00 H Neut % (Auto) (40 - 76 %) 84.6 H Lymph % (Auto) (20.5 - 51.1 %) 5[address] [place] % (Auto) (1.7 - 9.3 %) 10.2 H Eos % (Auto) (0.0 - 6.0 %) 0.1 Baso % (Auto) (0.0 - 2.0 %) 0.1 Neut # (Auto) (1.8 - 7.6 K/mm3) 15.61 H Lymph # (Auto) (0.6 - 3.2 K/mm3) 0.9 [place] # (Auto) (0.3 - 1.1 K/mm3) 1.9 [...] - 7.0 pH UNITS) 6.0 Ur Specific Snyder (1.005 - 1.030 SG ) 1.020 Urine Protein (NEG mg/dL) TRACE H Urine Glucose (UA) (NEG mg/dL) NEGATIVE Urine Ketones (NEG mg/dL) 3+ H Urine Blood (NEG mg/DL) 2+ H Urine Nitrite (NEG SCREEN) NEGATIVE Urine Bilirubin (NEG mg/dL) NEGATIVE Urine Urobilinoge n (<2.0 mg/dL) 0.2 Ur Leukocyte Esterase (NEGATIV E Leuk/mcL) 1+ H Urine RBC (0 - 3 #RBC/HPF) 1-3 Urine WBC (0 - 3 #WBC/HPF) 10-20 H Ur Squamous Epith Cells (NONE /HPF) TRACE Urine Bacteria (NONE - TRACE /HPF) TRACE Urine Culture Screen (Culture CHK Criteria) YES,WBC>10 EPI<25 Radiology data:Recent Impressions:CAT SCAN - CT ABD PELVIS W/CONT 02/19 2021 Report Impressio n - Status: SIGNED Entered: 02/19/20192036 Impression: 1. Right renal pyelonephritis.2. No ureteral calculus or hydronephrosis.Impression By: [email or web address] - Jatinder Funez M.D. Diagnosis, Assessment Plan Free Text DxA P NotesFree Text DxA P Notes:1. OBSTRUCTIVE UROPATHY with minimal dilatation of R ureter- report from [facility] ER CT A/P WITHOUT CONTRASTpossibly passed ureteral stonewill do Toradol prn for inflammatory painconsulted urology Dr Santos get further imaging to evaluate the obstructive uropathy. CT A/P with contrast neg 2, Acute PNua from outside ER with moderate leucocytes, nitrites, proteinuria and large bloodcontinue IV ceftriaxonerepeat UA here with pyuriaBlood cx pending and lactic acid negPCT 0.22 3. Severe sepsis with low BP, tachycradia here, leucocytosis wbc 18.42/2 acute PNIV abxIVF 4. Depression and other comorbiditiesresume home meds and adjust as needed DVT Px- no anticoagulation neededpatient young and ambulatory I have ordered a PICC line as BP has been borderline low at 1251 RPT #: [id number] OF REPORT PRProgress Uyhi4641-31-66X75:46:00L.[id number] altaf able for patient gtvsDYNPATAZTMMPSC6380-98-52B79:51:29 2019-02-19 17:53:00 [id number]:53:00 [facility] ([facility])Hospitalist History PhysicalREPORT#:[id number] REPORT STATUS: SignedDATE:02/19/19 TIME:1753 PATIENT: VIC REEVES UNIT #: [id number]#: [id number] [address] AGE : 38 SEX: F ATTEND: Cony Partida [facility] DT: 9 AUTHOR: Cony Partida MD * ALL edits or amendment s must be made on the electronic/computer document * History of Present Illness HPIChief complaint: R flank painPCP:PCP: Jordan Jean MD HPI:38 yo white female admitted as a transfer from [facility] ER. She has PMH of depression, insomnia, chronic back pain.1 week now has severe R flank pain that radiates to the RLQ and pelvic area and is constant up to 10/10 severity. No ameliorating factor. had N/V x 1 today. shehas been having dysuria and hematuria. Now has weakness and dizziness. CT at [facility] ER with documentation of likely recent passage of right sidedureteral stone as n o urolithiasis but residual obstructive uropathy with minimaldilatation of ureter.She was given 3 L NS and IV ceftriaxone 1 g and sent over here.A t bedside BP has been borderline low down to 80s but responds to IVF and currently 110 systolic. She has abd pain, dizziness and headache PMHdepressioninsominachronic back paintachycardi a PSHnone SHno smoking, alcohol or illicit drug us e FHReviewed and non contributpry to current illness AllergiesNKDA Home medsreviewd, see MAR History Medication/Allergy-Vaccine HxHome Medications:ARIPiprazole (ABILIFY) 5 MG PO DAILYFLUoxetine (PROzac) 80 MG PO DAILYHYDROcodone/APAP (NORCO 5/325) 1 TAB PO BIDNEBIVOLOL (BYSTOLIC) 5 MG PO DAILYtraZODone (DESYREL) 150 MG PO BEDTIME Allergies:Coded Allergies:bismuth subsalicylate (From Pepto-Bismol) (Mild, RASH 11/08/09) Review of SystemsConstitutional:Reports: chills, fever, generalized weakness. Skin:Denies: bruising. Allergy/Immun:Denies: itching. Eyes:Denies: redness, discharge. ENT:Denies: hearing loss. Respiratory:Denies: SOB. Cardiovascular:Denies: chest pain. GI:Reports: nausea, vomiting. :Reports: dysuria, flank pain. Musculoskeletal:Denies: extremity swelling. Heme:Denies: bleeding. Neuro:Reports: dizziness. Psych:Denies: agitation. Objective GeneralVS/I O:Vital Signs: Date Time Temp Pulse Resp B/P B/P Pulse O2 O2 Flow FiO2 Mean Ox Delivery Rate 9 1747 36.7 111 104/69 80.9 99 Room air 02/19 1650 38.1 80 19 96/57 70 Nasal cannula Patient Weigh t Weight (lb): 155Weight (oz): 6.81Weight (kg): 70.500 Physical ExamGeneral appearance: alert, awakeCardiovascular: normal capillary refill, regular rate rhythmRespiratory: aerating well, n o distressAbdomen: tenderness, normal bowel sounds , soft, no distention, no guardingExtremities: moves all, normal capillary refill, normal range of motion, no edemaNeuro/DOLL MAKER: alert, oriented X 3Psychiatry: normal affect ResultsFindings/Data:Laboratory Tests 02/19 02/19 1700 1700 Chemistry Sodium (134 - 147 mmol/L) 137 Potassium (3.4 - 5.0 mmol/L) 3.3 L Chloride (100 - 108 mmol/L) 106 Carbon Dioxide (21 - 32 mmol/L) 25 Anion Gap (4.0 - 15.0 GAP calc) 6.0 BUN (7 - 18 MG/DL) 7 Creatinine (0.6 - 1.0 MG/DL) 0.6 Glomerular Filtr Rate (>60 estGFR ) >=60 max estimate Glucose (70 - 110 MG/DL) 86 Lactic Acid (0.4 - 2.0 mmol/L) 0.8 Calcium (8.5 - 10.1 MG/DL) 7.4 L Lactate Dehydrogenase (84 - 24 6 Unit/L) 131 Laboratory Tests 02/19 1700 Hematology WBC (3.5 - 11.0 K/mm3) 18.4 H RBC (4.70 - 6.10 M/mm3) 3.88 L Hgb (10.4 - 14.9 G/DL ) 10.2 L Hct (31.5 - 44.1 %) 33.0 MCV (84.5 - 98. 6 Fl) 85.1 MCH (27.0 - 34.2 pg) 26.3 L MCHC (31.5 - 34.0 G/DL) 30.9 L Plt Count (150 - 450 K/mm3) 224.0 MPV (7.0 - 10.5 fL) 11.00 H Neut % (Auto) (40 - 76 %) 84.6 H Lymph % (Auto) (20.5 - 51.1 % ) 5.[address] [place] % (Auto) (1.7 - 9.3 %) 10.2 H Eos % (Auto) (0.0 - 6.0 %) 0.1 Baso % (Auto) (0.0 - 2. 0 %) 0.1 Neut # (Auto) (1.8 - 7.6 K/mm3) 15.61 H Lymph # (Auto) (0.6 - 3.2 K/mm3) 0.9 [place] # (Auto) (0.3 - 1.1 K/mm3) 1.9 H Eos # (Auto) (0.0 - 0.4 K/mm3) 0.0 Baso # (Auto) (0.0 - 0.1 K/mm3) 0.0 Add Manual Diff (CRITERIA DIFF/SCN) NO Anisocytosis (NONE) 1+ Diagnosis, Assessment Kathy n Free Text DxA P NotesFree Text DxA P Notes:1. OBSTRUCTIVE UROPATHY with minimal dilatation of R ureter- report from [facility] CT A/P WITHOUT CONTRASTpossibly passed ureteral stonewill do Toradol prn for inflammatory painconsult urology Dr Santos get further imaging to evaluate the obstructive uropathy. With contrast 2, Acute PNu a from outside ER with moderate leucocytes, nitrites, proteinuria and large bloodcontinue IV ceftriaxonerepeat UA hereBlood cx and lactic aci d 3. Severe sepsis with low BP, tachycradia here, leucocytosis wbc 18.42/2 acute PNIV abxIVF 4. Depression and other comorbiditiesresume home meds and adjust as needed DVT Px- no anticoagulation neededpatient young and ambulatory at 1810 RPT #: [id number] OF REPORT HPHistory and physical aocxbfxwixj0779-12-62A84:53:00L.[id number] 9 AVAvailable for patient vyovDNBZWTVYFBYPWV6334-38-10P77:51:52"
[2023-03-10 05:59] LABS: Absolute Lymphocytes (CBC) 3.1 K/uL (0.7-4.9); Hematocrit 41.2 % (36.0-45.0); Lymphocytes % 31.4 % (15.3-44.8); MCV 85.5 fL (80-100); MPV 8.9 fL (7.6-11.3); Platelets 313 thou/uL (152-406); RBC Red Blood Cell Count 4.82 M/uL (3.86-4.86)
[2023-03-10] MEDS ORDERED: MORPHINE 4 MG/ML SYR ONE (06:04)
[2023-03-10] MEDS ORDERED: CYCLOBENZAPRINE 10 MG TAB ONE (06:04)
[2023-03-10] MEDS ORDERED: KETOROLAC 30 MG/ML INJ ONE (06:04)
[2023-03-10] MEDS ORDERED: ONDANSETRON 4 MG/2 ML VIAL ONE (06:05)
[2023-03-10 06:21] LABS: ALT/SGPT 33 U/L (13-56); AST/SGOT 14 U/L (15-37); Alkaline Phosphatase 131 U/L (45-117); BUN Blood Urea Nitrogen 13 mg/dL (7-18); Bicarbonate 27 mEq/L (21-32); Bilirubin Total 0.2 mg/dL (0.2-1.0); Creatine Phosphokinase 42 U/L (26-192); Glomerular Filtration Rate 67 ml/min (=/>90); Glucose Level 98 mg/dL (74-106); Lipase 60 U/L (13-75); Magnesium 2.4 mg/dL (1.6-2.4); NT PRO-BNP 60 pg/mL (<125); Potassium 3.7 mEq/L (3.5-5.1); Protein, Total 7.9 g/dL (6.4-8.2); Sodium Level 136 mEq/L (136-145); Troponin High Sensitivity 3.3 pg/mL (<58.9)
[2023-03-10 06:23] LABS: Bilirubin Direct < 0.1 mg/dL (0-0.2); Bilirubin Indirect, Calculated ND mg/dL (0.2-0.8)
[2023-03-10 07:16] LABS: Protime INR 0.99
--- NOTE | 2023-03-10 07:18 | ER ---
Nurse's Notes [facility] Name: Yohana Reeevs Age: 42 yrs Sex: Female : 1980 Arrival Date: 03/10/2023 Time: 03:36 Bed 20 Private MD: Diagnosis: Low back pain;Pain in thoracic spine Presentation: 03/10 04:22 Chief complaint: Patient states: CHRONIC BACK PAIN, SOB 2/2 BACK PAIN, SEEN AT PCP Y/D bp WITH L-SPINE XRAY. Coronavirus screen: At this time, the client does not indicate any symptoms associated with coronavirus-19. Ebola Screen: No symptoms or risks identified at this time. Initial Sepsis Screen: Does the patient meet any 2 criteria? No. Patient's initial sepsis screen is negative. Does the patient have a suspected source of infection? No. Patient's initial sepsis screen is negative. Risk Assessment: Do you want to hurt yourself or someone else? Patient reports no desire to harm self or others. Onset of symptoms was March 10, 2023. 04:22 Method Of Arrival: Ambulatory bp 04:22 Acuity: NICOLASA 3 bp Triage Assessment: 04:23 General: Appears in no apparent distress. Behavior is cooperative, appropriate for age, bp anxious. Pain: Complains of pain in back. Respiratory: Reports shortness of breath Onset: The symptoms/episode began/occurred today, the patient has mild shortness of breath. Historical: - Allergies: 04:23 No Known Drug Allergies; bp - PMHx: 04:23 chronic back pain; heart attack due to trauma; Migraine; Kidney stones; GI Bleed; bp depressive disorder; - PSHx: 04:23 section; Emergency laparotomy; bp - Immunization history:: Adult Immunizations up to date. - Social history:: Smoking status: unknown. Assessment: 06:10 Reassessment: Patient appears in no apparent distress at this time. Patient and/or jb4 family updated on plan of care and expected duration. Pain level reassessed. Patient is alert, oriented x 3, equal unlabored respirations, skin warm/dry/pink. 06:54 Reassessment: Patient appears in no apparent distress at this time. Patient and/or jb4 family updated on plan of care and expected duration. Pain level reassessed. Patient is alert, oriented x 3, equal unlabored respirations, skin warm/dry/pink. 08:00 Reassessment: Patient is alert, oriented x 3, equal unlabored respirations, skin aa5 warm/dry/pink. Pt given crackers before [place] administration, pt tolerated well. . Vital Signs: 04:22 BP 117 / 69; Pulse 79; Resp 16; Temp 97.9; Pulse Ox 98% ; Weight 89.36 kg; Height 5 ft. bp 2 in. ; 06:18 BP 128 / 79; Pulse 83; Resp 16; Pulse Ox 97% on R/A; jb4 06:54 BP 112 / 81; Pulse 79; Resp 16; Pulse Ox 96% on R/A; jb4 08:00 BP 108 / 74; Pulse 80; Resp 16 S; Pulse Ox 97% on R/A; aa5 04:22 Body Mass Index 36.03 (89.36 kg, 157.48 cm) bp ED Course: 03:40 Patient arrived in ED. gm2 03:56 Tho Rodriguez MD is Attending Physician. sp4 04:23 Triage completed. bp 04:23 Arm band placed on. bp 05:05 CT Chest Abdomen Pelvis W/O Contrast In Process Unspecified. EDMS 05:40 Inserted saline lock: 18 gauge in right antecubital area, using aseptic technique. jb4 Blood collected. 05:40 Initial lab(s) drawn, by md, sent to lab. First set of blood cultures drawn by me. jb4 06:00 Second set of blood cultures drawn by me. jb4 07:17 Edd Friedman MD is Referral Physician. sp4 08:00 IV discontinued, intact, bleeding controlled, No redness/swelling at site. Pressure aa5 dressing applied. Administered Medications: 06:09 Drug: morphine IVP or IV 4 mg IVP once over 4 mins Route: IVP; Infused Over: 4 mins; jb4 Site: right antecubital; 06:09 Drug: Ketorolac IVP 30 mg IVP once Route: IVP; Site: right antecubital; jb4 06:09 Drug: Ondansetron IVP 4 mg IVP once; over 2 minutes Route: IVP; Site: right antecubital;jb4 06:10 Drug: Cyclobenzaprine PO 10 mg PO once Route: PO; jb4 08:00 Drug: [place] PO 10 mg-325 mg 1 tabs PO once Route: PO; aa5 08:00 Follow up: Response: Medication administered at discharge. aa5 Medication: 08:00 VIS not applicable for this client. aa5 Outcome: 07:18 Discharge ordered by . sp4 08:00 Discharged to home ambulatory, with significant other, aa5 08:00 Condition: stable 08:00 Discharge instructions given to patient, Instructed on discharge instructions, follow up and referral plans. medication usage, Demonstrated understanding of instructions, follow-up care, medications, Prescriptions given X 1, 08:04 Patient left the ED. kb3 Signatures: Dispatcher [employer] EDMS Tianna Henry RN RN aa5 Gentry Elmore RN RN jb4 Rloo Simental RN RN Carol Vázquez, FÁTIMA RN kb3 Tho Rodriguez MD MD sp4 Jeannie Hirsch gm2
--- NOTE | 2023-03-10 07:18 | EDPHYS ---
Physician Documentation [facility] Name: Yohana Reeves Age: 42 yrs Sex: Female : 1980 Arrival Date: 03/10/2023 Time: 03:36 Bed 20 Private MD: ED Physician Tho Rodriguez HPI: 03/10 03:56 This 42 yrs old Female presents to ER via Unassigned with complaints of sp4 Shortness Of Breath, Back Pain. 03:57 PMH - Allergies: No Known Allergies; PMHx: chronic back pain; depressive disorder; GI sp4 Bleed; heart attack due to trauma; Kidney stones; Migraine; PSHx: section; Emergency laparotomy; . Historical: - Allergies: 04:23 No Known Drug Allergies; bp - PMHx: 04:23 chronic back pain; heart attack due to trauma; Migraine; Kidney stones; GI Bleed; bp depressive disorder; - PSHx: 04:23 section; Emergency laparotomy; bp - Immunization history:: Adult Immunizations up to date. - Social history:: Smoking status: unknown. Exam: 08:15 ECG was reviewed by the Attending Physician. EKG time 0 434 normal sinus rhythm with sp4 a rate of 80 Vital Signs: 04:22 BP 117 / 69; Pulse 79; Resp 16; Temp 97.9; Pulse Ox 98% ; Weight 89.36 kg; Height 5 ft. bp 2 in. ; 06:18 BP 128 / 79; Pulse 83; Resp 16; Pulse Ox 97% on R/A; jb4 06:54 BP 112 / 81; Pulse 79; Resp 16; Pulse Ox 96% on R/A; jb4 08:00 BP 108 / 74; Pulse 80; Resp 16 S; Pulse Ox 97% on R/A; aa5 04:22 Body Mass Index 36.03 (89.36 kg, 157.48 cm) bp MDM: 03:57 Patient medically screened. sp4 07:13 ED course: CT - FINDINGS: CHEST: Lungs: Unremarkable. No mass. No consolidation. sp4 Pleural space: No pleural effusion or pneumothorax. Heart: Unremarkable. No cardiomegaly. No significant pericardial effusion. No significant coronary artery calcifications. ABDOMEN: Liver: Enlarged fatty liver. Gallbladder and bile ducts: Unremarkable. No calcified stones. No ductal dilation. Pancreas: Unremarkable. No ductal dilation. Spleen: Unremarkable. No splenomegaly. Adrenals: Unremarkable. No mass. Kidneys and ureters: Unremarkable. No obstructing stones. No hydronephrosis. Stomach and bowel: Colonic diverticulosis. No obstruction. No mucosal thickening. PELVIS: Appendix: The visualized appendix is normal. No pericecal inflammation to suggest acute appendicitis. Bladder: Unremarkable. No stones. Reproductive: Unremarkable as visualized. CHEST, ABDOMEN and PELVIS: Intraperitoneal space: Unremarkable. No significant fluid collection. No free air. Bones/joints: No acute fracture visualized. No hip dislocation. Soft tissues: Unremarkable. Vasculature: Unremarkable. No aortic aneurysm. Lymph nodes: Unremarkable. No enlarged lymph nodes. IMPRESSION: 1. No acute findings in the chest, abdomen or pelvis. 2. Enlarged fatty liver. 3. Colonic diverticulosis. . 03/10 03:58 Order name: CBC with Diff; Complete Time: 07:12 4 03/10 03:58 Order name: CMP; Complete Time: 07:12 4 03/10 03:58 Order name: Lipase; Complete Time: 07:12 4 03/10 03:58 Order name: Blood Culture Adult (2) 03/10 03:58 Order name: CPK; Complete Time: 07:12 4 03/10 03:58 Order name: Hepatic Function; Complete Time: 07:12 4 03/10 03:58 Order name: Magnesium; Complete Time: 07:12 4 03/10 03:58 Order name: NT PRO-BNP; Complete Time: 07:12 4 03/10 03:58 Order name: PT-INR 03/10 03:58 Order name: Ptt, Activated 03/10 03:58 Order name: Troponin HS; Complete Time: 07:12 4 03/10 04:07 Order name: CT Chest Abdomen Pelvis W/O Contrast 03/10 03:58 Order name: EKG; Complete Time: 03:59 4 03/10 03:58 Order name: IV Saline Lock; Complete Time: 05:45 4 03/10 03:58 Order name: Labs collected and sent; Complete Time: 05:45 4 03/10 03:58 Order name: Cardiac monitoring; Complete Time: 05:45 4 03/10 03:58 Order name: EKG - Nurse/Tech; Complete Time: 04:37 4 03/10 03:58 Order name: IV Saline Lock; Complete Time: 05:45 sp4 03/10 03:58 Order name: Labs collected and sent; Complete Time: 05:45 sp4 03/10 03:58 Order name: O2 Per Protocol; Complete Time: 05:45 sp4 03/10 03:58 Order name: O2 Sat Monitoring; Complete Time: 05:45 sp4 EC:15 Rate is 81 beats/min. Rhythm is regular, Normal Sinus Rhythm. QRS [place] is Normal. [place] sp4 interval is normal. QRS interval is normal. QT interval is prolonged. No Q waves. T waves are Normal. No ST changes noted. Clinical impression: No evidence of ischemia. Interpreted by me. Reviewed by me. Administered Medications: 06:09 Drug: morphine IVP or IV 4 mg IVP once over 4 mins Route: IVP; Infused Over: 4 mins; jb4 Site: right antecubital; 06:09 Drug: Ketorolac IVP 30 mg IVP once Route: IVP; Site: right antecubital; jb4 06:09 Drug: Ondansetron IVP 4 mg IVP once; over 2 minutes Route: IVP; Site: right antecubital;jb4 06:10 Drug: Cyclobenzaprine PO 10 mg PO once Route: PO; jb4 08:00 Drug: [place] PO 10 mg-325 mg 1 tabs PO once Route: PO; aa5 08:00 Follow up: Response: Medication administered at discharge. aa5 Disposition Summary: 03/10/23 07:18 Discharge Ordered Notes: Please ask your Primary MD for MRI if the pain is persistent Location: Home sp4 Problem: new sp4 Symptoms: have improved sp4 Condition: Stable sp4 Diagnosis - Low back pain sp4 - Pain in thoracic spine sp4 Followup: sp4 - With: Edd Friedman MD - When: 2 - 3 days - Reason: Recheck today's complaints Discharge Instructions: - Discharge Summary Sheet sp4 - Acute Back Pain, Adult sp4 Forms: - Work release form aa5 - Family Work Release aa5 - Patient Portal Instructions sp4 Prescriptions: - Cyclobenzaprine 10 mg Oral Tablet - take 1 tablet ORAL route every 8 hours As needed; 30 tablet; Refills: 0, sp4 Product Selection Permitted Signatures: Dispatcher [employer] Tianna Cates RN RN aa5 Gentry Elmore, RN RN jb4 Rolo Simental, RN RN bp Tho Rodriguez MD MD sp4
[2023-03-10] MEDS ORDERED: HYDROCODONE/APAP 10/325 TAB ONE (08:09)
[2023-03-10 08:40] VITALS: TEMP 97.9
[2023-03-10 08:42] VITALS: BP 112/81; O2SAT 96
[2023-03-10] MEDS ORDERED: FLUCONAZOLE 100 MG TAB ONE (09:46)
--- NOTE | 2023-03-11 10:35 | RAD REPORT ---
EXAM DESCRIPTION: CT - Chest Abd Pelvis Wo Con - 03/10/2023 5:03 am CLINICAL HISTORY: The patient is 42 years old and is Female; posterior T spinal pain, and left poste rior chest pain TECHNIQUE: Axial computed tomography images of the chest, abdomen and pelvis without intravenous con trast. Sagittal and coronal reformatted images were created and reviewed. This CT exam was perfor med using one or more of the following dose reduction techniques: automated exposure control, adjus tment of the mA and/or kV according to patient size, and/or use of iterative reconstruction technique . COMPARISON: CT abdomen and pelvis February 19, 2023. FINDINGS: CHEST: Lungs: Unremarkable. No mass. No consolidation. Pleural space: No pleural effusion or pneumothorax. Heart: Unremarkable. No cardiomegaly. No significant pericardial effusion. No significant c oronary artery calcifications. ABDOMEN: Liver: Enlarged fatty liver. Gallbladder and bile ducts: Unremarkable. No calcified stones. No ductal dilation. Pancreas: Unremarkable. No ductal dilation. Spleen: Unremarkable. No splenomegaly. Adrenals: Unremarkable. No mass. Kidneys and ureters: Unremarkable. No obstructing stones. No hydronephrosis. Stomach and bowel: Colonic diverticulosis. No obstruction. No mucosal thickening. PELVIS: Appendix: The visualized appendix is normal. No pericecal inflammation to suggest acute appendici tis. Bladder: Unremarkable. No stones. Reproductive: Unremarkable as visualized. CHEST, ABDOMEN and PELVIS: Intraperitoneal space: Unremarkable. No significant fluid collection. No free air. Bones/joints: No acute fracture visualized. No hip dislocation. Soft tissues: Unremarkable. Vasculature: Unremarkable. No aortic aneurysm. Lymph nodes: Unremarkable. No enlarged lymph nodes. IMPRESSION: 1. No acute findings in the chest, abdomen or pelvis. 2. Enlarged fatty liver. 3. Colonic diverticulosis. Electronically signed by: Yahaira Soto MD 03/10/2023 05:51 AM HOME CARE SPECIALIST Due to temporary technical issues with the PACS/Fluency reporting system, reports are being signed by the in house radiologist without review as a courtesy to ensure prompt reporting. The interpreting r adiologist is fully responsible for the content of the report.
--- NOTE | 2023-03-12 15:24 | EKG ---
Test Date: 2023-03-10 Test Time: 04:33:37 Relay Man: SHERRY MEASUREMENT RESULTS: Intervals: Rate: 82 MN: 128 QRSD: 84 QT: 384 QTc: 448 [place]: P: 58 MN: 128 QRS: 47 T: 48 INTERPRETIVE STATEMENTS: Normal sinus rhythm Normal ECG Compared to ECG 02/19/2023 08:38:35 No significant changes Electronically Signed On 03-12-23 15:14:33 PHARMACY SERVICES REPRESENTATIVE by Jaciel Mathis
--- NOTE | 2023-03-12 15:24 | EKG ---
Test Date: 2023-03-10 Test Time: 04:34:17 Outbound Telemarketing Representative: SHERRY MEASUREMENT RESULTS: Intervals: Rate: 81 IL: 124 QRSD: 78 QT: 396 QTc: 460 [place]: P: 64 IL: 124 QRS: 47 T: 41 INTERPRETIVE STATEMENTS: Normal sinus rhythm Prolonged QT Abnormal ECG Compared to ECG 03/10/2023 04:33:37 Prolonged QT interval now present Electronically Signed On 03-12-23 15:14:31 SERVER MANAGER by Jaciel Mathis
== END 2023-03-10 08:04 | disposition home or self-care (01) ==
LOC: ER 03:36
DX: M54.50 Low back pain, unspecified (principal); M54.6 Pain in thoracic spine; R06.02 Shortness of breath
CPT/HCPCS: 93005 ×2; 87040 ×2; 85025; 36415; 83735; 82550; 85610; 85730; 82248; 84484; 83690; 80053; 83880; 71250; 74176; 96375; 96374; 99284; J2405

== ENCOUNTER 2023-04-26 21:26 | Observation (INO) | payer BC ==
[2023-04-26 22:27] LABS: Hematocrit 44.3 % (36.0-45.0); Lymphocytes % 33.8 % (15.3-44.8); MCV 85.6 fL (80-100); MPV 9.2 fL (7.6-11.3); Platelets 240 thou/uL (152-406); RBC Red Blood Cell Count 5.17 M/uL (3.86-4.86)
[2023-04-26] MEDS ORDERED: KETOROLAC 30 MG/ML INJ ONE (22:28)
[2023-04-26] MEDS ORDERED: PROMETHAZINE 25 MG TABLET ONE (22:28)
--- NOTE | 2023-04-26 22:32 | RAD REPORT ---
EXAM DESCRIPTION: RAD - Chest Single View - 04/26/2023 10:21 pm CLINICAL HISTORY: CHEST PAIN Chest pain. COMPARISON: <Comparisons> FINDINGS: Portable technique limits examination quality. The lungs are grossly clear. The heart is normal in size. No displaced fractures. IMPRESSION: No acute intrathoracic process suspected.
[2023-04-26 22:41] LABS: Specific Gravity 1.017 (1.005-1.030)
[2023-04-26 22:44] LABS: Protime INR 1.05
[2023-04-26 22:48] LABS: ALT/SGPT 28 U/L (13-56); AST/SGOT 13 U/L (15-37); Albumin 4.1 g/dL (3.4-5.0); Alkaline Phosphatase 124 U/L (45-117); BUN Blood Urea Nitrogen 11 mg/dL (7-18); Bicarbonate 29 mEq/L (21-32); Bilirubin Direct 0.1 mg/dL (0-0.2); Bilirubin Indirect, Calculated 0.3 mg/dL (0.2-0.8); Bilirubin Total 0.4 mg/dL (0.2-1.0); Glomerular Filtration Rate 43 ml/min (=/>90); Glucose Level 102 mg/dL (74-106); Magnesium 2.1 mg/dL (1.6-2.4); NT PRO-BNP 15 pg/mL (<125); Potassium 3.2 mEq/L (3.5-5.1); Protein, Total 8.4 g/dL (6.4-8.2); Sodium Level 137 mEq/L (136-145)
[2023-04-26 22:49] LABS: Troponin High Sensitivity < 3.0 pg/mL (<58.9)
[2023-04-26] MEDS ORDERED: MORPHINE 4 MG/ML SYR ONE (23:25)
[2023-04-26] MEDS ORDERED: LORAZEPAM 1 MG TABLET ONE (23:45)
[2023-04-26] MEDS ORDERED: ASPIRIN 81 MG CHEWABLE TABLET ONE (23:46)
--- NOTE | 2023-04-27 00:04 | ER ---
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 pt describes the pain as a stabbing pain. Pt reports that she saw her natural foods clerk on Thursday and had an echo done and it was "normal". Coronavirus screen: Vaccine status: Patient reports receiving the 2nd dose of the covid vaccine. Client denies travel out of the [place] in the last 14 days. Ebola Screen: Patient denies travel to an Ebola-affected area in the 21 days before illness onset. No symptoms or risks identified at this time. Initial Sepsis Screen: Does the patient meet any 2 criteria? No. Patient's initial sepsis screen is negative. Does the patient have a suspected source of infection? No. Patient's initial sepsis screen is negative. Risk Assessment: Do you want to hurt yourself or someone else? Patient reports no desire to harm self or others. Onset of symptoms was April 26, 2023. 21:40 Method Of Arrival: Ambulatory cm10 21:40 Acuity: NICOLASA 2 cm10 Triage Assessment: 21:44 General: Appears in no apparent distress. comfortable, Behavior is calm, cooperative. rv Pain: Complains of pain in chest. EENT: No signs and/or symptoms were reported regarding the EENT system. Neuro: Level of Consciousness is awake, alert, obeys commands, Oriented to person, place, time, situation. Cardiovascular: Reports chest pain, Capillary refill < 3 seconds Patient's skin is warm and dry. Respiratory: Airway is patent Respiratory effort is even, unlabored. Historical: - Allergies: 21:39 No Known Allergies; cm10 - PMHx: 21:39 chronic back pain; heart attack due to trauma; depressive disorder; GI Bleed; Kidney cm10 stones; Migraine; Hypertensive disorder; - PSHx: 21:39 Emergency laparotomy; section; cm10 - Immunization history:: Adult Immunizations up to date, Client reports receiving the 2nd dose of the Covid vaccine. - Social history:: Smoking status: Patient denies any tobacco usage or history of. - Family history:: not pertinent. Screenin:43 [place] ED Fall Risk Assessment (Adult) History of falling in the last 3 months, rv including since admission No falls in past 3 months (0 pts) Score/Fall Risk Level 0 - 2 = Low Risk Oriented to surroundings, Maintained a safe environment, Educated pt \\T\\ family on fall prevention, incl call for assistance when getting out of bed, Assessed \\T\\ reinforced patient's understanding of fall precautions. Abuse screen: Denies threats or abuse. Denies injuries from another. Nutritional screening: No deficits noted. Tuberculosis screening: No symptoms or risk factors identified. Assessment: 21:45 Pain: Pain radiates to left arm Pain began suddenly. rv Vital Signs: 21:40 BP 125 / 108; Pulse 122; Resp 18; Temp 97.9; Pulse Ox 100% on R/A; Weight 85.73 kg; cm10 Height 5 ft. 2 in. ; Pain 9/10; 23:27 BP 122 / 81; Pulse 94; Resp 16; Pulse Ox 100% on R/A; rv 04/27 00:30 BP 112 / 81; Pulse 85; Resp 16; Pulse Ox 100% on R/A; rv 01:24 BP 131 / 101; Pulse 110; Resp 20; Temp 98; Pulse Ox 100% on R/A; rv 04/26 21:40 Body Mass Index 34.57 (85.73 kg, 157.48 cm) cm10 04/26 21:40 Pain Scale: Adult cm10 [place] Coma Score: 04/26 23:41 Eye Response: spontaneous(4). Motor Response: obeys commands(6). Verbal Response: sp4 oriented(5). Total: 15. NIH Stroke Scale Scores: 23:41 NIHSS Score: 0 sp4 ED Course: 21:28 Patient arrived in ED. jj6 21:34 Tho Rodriguez MD is Attending Physician. sp4 21:41 Triage completed. cm10 21:41 Arm band placed on Patient placed in an exam room, on a stretcher. cm10 21:42 Zacarias Morse RN is Primary Nurse. rv 21:43 Patient has correct armband on for positive identification. Client placed on continuous rv cardiac and pulse oximetry monitoring. NIBP monitoring applied. shelter monitor on. 21:45 No provider procedures requiring assistance completed. Patient maintains SpO2 rv saturation greater than 95% on room air. 22:23 XRAY Chest (1 view) In Process Unspecified. EDMS 22:37 Inserted saline lock: 20 gauge in left antecubital area, using aseptic technique. Blood rv collected. 23:28 CT Head Angio In Process Unspecified. EDMS 23:28 CT Neck Angio In Process Unspecified. EDMS 23:28 CT Head Brain wo Cont In Process Unspecified. EDMS 04/27 00:03 Tay Meza MD is Hospitalizing Provider. sp4 01:25 Patient admitted, IV remains in place. rv Administered Medications: 04/26 22:37 Drug: Promethazine PO 25 mg PO once Route: PO; rv 23:27 Follow up: Response: No adverse reaction rv 22:37 Drug: Ketorolac IVP 30 mg IVP once Route: IVP; Site: left antecubital; rv 23:27 Follow up: Response: No adverse reaction; Pain is unchanged, physician notified rv 23:27 Drug: morphine IVP or IV 4 mg IVP once over 4 mins Route: IVP; Infused Over: 4 mins; rv Site: left antecubital; 04/27 01:25 Follow up: Response: No adverse reaction rv 04/26 23:48 Drug: Aspirin PO Chewable Tablet 324 mg PO once; 81 mg tablets x 4 Route: PO; rv 04/27 01:25 Follow up: Response: No adverse reaction rv 04/26 23:48 Drug: LORazepam PO 1 mg PO once Route: PO; rv 04/27 01:25 Follow up: Response: No adverse reaction rv 01:41 Drug: Zolpidem PO 10 mg PO once Route: PO; rv 01:41 Follow up: Response: Medication administered at discharge. rv Medication: 04/26 21:43 VIS not applicable for this client. rv Outcome: 04/27 00:04 Decision to Hospitalize by Provider. sp4 01:25 Condition: good rv 01:39 Admitted to Med/surg accompanied by tech, via wheelchair, room 223, with chart, Report rv called to TAMANNA SHINE 01:39 Instructed on the need for admit, 01:40 Patient left the ED. rv NIH Stroke Scale - NIH Stroke Score Date: 04/26/2023 Time: 23:41 Total Score = 0 10. Dysarthria (speech clarity - read or repeat words) - 0(Normal) 11. Extinction and Inattention (visual/tactile/auditory/spatial/personal) - 0(No abnormality) 1a. Level of Consciousness (LOC) - 0(Alert) 1b. Level of Consciousness (LOC) (Month \\T\\ Age) - 0(Both) 1c. LOC Commands (Open \\T\\ Closes Eyes/Student Assistant) - 0(Both) 2. Best Gaze (Lateral Gaze Paresis) - 0(Normal) 3. Visual Field Loss - 0(No visual loss) 4. Facial Palsy - 0(Normal) 5a. Left Arm: Motor (10-second hold) - 0(No drift) 5b. Right Arm: Motor (10-second hold) - 0(No drift) 6a. Left Leg: Motor (5-second hold - always test supine) - 0(No drift) 6b. Right Leg: Motor (5-second hold - always test supine) - 0(No drift) 7. Limb Ataxia (finger/nose \\T\\ heel/eckert - test with eyes open) - 0(Absent) 8. Sensory Loss (pinprick arms/legs/face) - 0(Normal) 9. Best Language: Aphasia (description/naming/reading) - 0(No aphasia) Initials: sp4 Signatures: Dispatcher [employer] EDMS Zacarias Morse RN RN rv Nani Lee6 Tho Rodriguez MD MD sp4 Rosa Rodriguez RN RN cm10
--- NOTE | 2023-04-27 00:04 | EDPHYS ---
Physician Documentation [facility] – [place], [place] Name: Yohana Reeves Age: 42 yrs Sex: Female : 1980 Arrival Date: 04/26/2023 Time: 21:26 Bed 15 Private MD: ED Physician Tho Rodriguez HPI: 04/26 21:34 This 42 yrs old Female presents to ER via Unassigned with complaints of Chest sp4 Pain, Shortness Of Breath, General Weakness, LOW BLOOD PRESSURE. 21:35 PMH - Allergies: No Known Drug Allergies; PMHx: chronic back pain; heart attack due to sp4 trauma; Migraine; Kidney stones; GI Bleed; depressive disorder PSHx: section; Emergency laparotomy; . 23:45 42-year-old presents with complaint of chest pain starting 1 hour prior to presentation sp4 associated with left hand pain and anxiety. Patient states he took Xanax 2 mg p.o. 2 hours prior to arrival for anxiety. Patient also reports unsteady gait for the past 2 days and left-sided arm weakness for the past 2 days for patient had cardiology assessment with echocardiogram on Thursday04/20/2023 which was reportedly normal. Patient was also seen at emergency department in [facility] on 04/20/2023 for abdominal pain and CT was negative. . Historical: - Allergies: 21:39 No Known Allergies; cm10 - PMHx: 21:39 chronic back pain; heart attack due to trauma; depressive disorder; GI Bleed; Kidney cm10 stones; Migraine; Hypertensive disorder; - PSHx: 21:39 Emergency laparotomy; section; cm10 - Immunization history:: Adult Immunizations up to date, Client reports receiving the 2nd dose of the Covid vaccine. - Social history:: Smoking status: Patient denies any tobacco usage or history of. - Family history:: not pertinent. ROS: 23:57 Constitutional: Negative for fever, chills, and weight loss, positive chest pain, sp4 positive left-sided arm weakness. Positive unsteady gait 23:57 All other systems are negative, Exam: 23:42 ECG was reviewed by the Attending Physician. EKG at 2149 reveals sinus tachycardia at a sp4 rate of 124, no ST elevation or depression, rightward axis, otherwise normal EKG. 23:57 Constitutional: This is a well developed, well nourished patient who is awake, alert, sp4 and in no acute distress. Head/Face: Normocephalic, atraumatic. Eyes: Pupils equal round and reactive to light, extra-ocular motions intact. Lids and lashes normal. Conjunctiva and sclera are not injected. Cornea within normal limits. Periorbital areas with no swelling, redness, or edema. ENT: Nares patent. No nasal discharge, no septal abnormalities noted. Tympanic membranes are normal and external auditory canals are clear. Oropharynx with no redness, swelling, or masses, exudates, or evidence of obstruction, uvula midline. Mucous membranes moist. Neck: Trachea midline, no thyromegaly or masses palpated, and no cervical lymphadenopathy. Supple, full range of motion without nuchal rigidity, or vertebral point tenderness. Chest/axilla: Normal chest wall appearance and motion. Nontender with no deformity. No lesions are appreciated. Cardiovascular: Regular rate and rhythm with a normal S1 and S2. No gallops, murmurs, or rubs. Normal PMI, no JVD. No pulse deficits. Respiratory: Lungs have equal breath sounds bilaterally, clear to auscultation and percussion. No rales, rhonchi or wheezes noted. No increased work of breathing, no retractions or nasal flaring. Abdomen/GI: Soft, non-tender, with normal bowel sounds. No distension or tympany. No guarding or rebound. No evidence of tenderness throughout. Back: No spinal tenderness. No costovertebral tenderness. There is sacral decubitus ulcer that is covered by the wound VAC. Skin: Warm, dry with normal turgor. Normal color with no rashes, no lesions, and no evidence of cellulitis. MS/ Extremity: Pulses equal, no cyanosis. Neurovascular intact. Full, normal range of motion. Neuro: Awake and alert, GCS 15, oriented to person, place, time, and situation. Cranial nerves II-XII grossly intact. Sensory grossly intact. Strength with some perceptible mild weakness in the left arm at about 4 out of 5. Otherwise normal motor strength throughout. Psych: Awake, alert, with orientation to person, place and time. Behavior, mood, and affect are within normal limits Vital Signs: 21:40 BP 125 / 108; Pulse 122; Resp 18; Temp 97.9; Pulse Ox 100% on R/A; Weight 85.73 kg; cm10 Height 5 ft. 2 in. ; Pain 9/10; 23:27 BP 122 / 81; Pulse 94; Resp 16; Pulse Ox 100% on R/A; rv 04/27 00:30 BP 112 / 81; Pulse 85; Resp 16; Pulse Ox 100% on R/A; rv 01:24 BP 131 / 101; Pulse 110; Resp 20; Temp 98; Pulse Ox 100% on R/A; rv 04/26 21:40 Body Mass Index 34.57 (85.73 kg, 157.48 cm) cm10 04/26 21:40 Pain Scale: Adult cm10 NIH Stroke Scale Scores: 04/26 23:41 NIHSS Score: 0 sp4 Nasra Coma Score: 23:41 Eye Response: spontaneous(4). Motor Response: obeys commands(6). Verbal Response: sp4 oriented(5). Total: 15. MDM: 21:36 Patient medically screened. sp4 04/27 00:00 Differential diagnosis: acute myocardial infarction, acute pericarditis, anxiety, sp4 coronary artery disease chest wall pain, congestive heart failure esophagitis, gastritis. HEART Score: History: Slightly Suspicious (0), ECG: Normal (0), Age: < or = 45 years (0), Risk Factors: 1 or 2 risk factors (1), Troponin: < or = 1 x Normal Limit (0), Total Score = 1. The patient was given aspirin in the Emergency Department. Data reviewed: vital signs, nurses notes, lab test result(s), EKG, radiologic studies, CT scan, plain films. ED course: CT without contrast - EXAM: CT Head/Brain Without Contrast 04/26/2023 at 11:21 PM HISTORY: left side weakness for 2 days COMPARISON: CT Head/Brain Without Contrast 09/24/2022 TECHNIQUE: Head/brain axial images acquired without contrast. Coronal and sagittal reformats created. Exam performed according to departmental dose-optimization program which includes automated exposure control, adjustment of mA and/or kV according to patient size, and/or use of iterative reconstruction technique. FINDINGS: No midline shift, mass effect, intracranial hemorrhage, or hydrocephalus. Brain parenchyma unremarkable. Paranasal sinuses clear. Tiny bilateral frontal sinuses. Moderate rightward nasal septal deviation. Left middle turbinate rosemary bullosa (normal variant). Mastoid air cells clear. No skull fracture or significant skull lesion. IMPRESSION: Unremarkable CT head/brain without contrast. If there remains strong clinical suspicion of acute ischemic infarct, then MR brain/head recommended (if there are no contraindications). Electronically signed by: Kaylah MALDONADO 04/26/2023 11:50 PM. ED course: EXAM DESCRIPTION: RAD - Chest Single View - 04/26/2023 10:21 pm CLINICAL HISTORY: CHEST PAIN Chest pain. COMPARISON: FINDINGS: Portable technique limits examination quality. The lungs are grossly clear. The heart is normal in size. No displaced fractures. IMPRESSION: No acute intrathoracic process suspected. . 00:02 ED course: EXAM: CTA Head with Contrast 04/26/2023 at 11:22 PM HISTORY: left side sp4 weakness for 2 days COMPARISON: CTA Head with Contrast 09/24/2022 TECHNIQUE: Head CTA axial images acquired with IV contrast. Coronal and sagittal CTA MIPs and MPRs created. Exam performed according to departmental dose-optimization program which includes automated exposure control, adjustment of mA and/or kV according to patient size, and/or use of iterative reconstruction technique. FINDINGS: Both intracranial vertebral, basilar, and both posterior cerebral arteries patent. Atretic right P1 segment and persistent origin of right posterior cerebral artery (normal variant). Both intracranial internal carotid, both middle cerebral, anterior communicating, and both anterior cerebral arteries unremarkable. No evidence of large intracranial arterial occlusion, aneurysm, or AVM. IMPRESSION: Unremarkable CTA Head with Contrast. If there remains strong clinical suspicion of acute ischemic infarct, then MR brain/head recommended (if there are no contraindications). . 01:27 ED course: EXAM: CTA Neck with Contrast HISTORY: left side weakness for 2 days sp4 COMPARISON: CTA Neck with Contrast 09/24/2022 TECHNIQUE: Neck CTA axial images acquired with IV contrast. Coronal and sagittal CTA MIPs and MPRs created. Exam performed according to departmental dose-optimization program which includes automated exposure control, adjustment of mA and/or kV according to patient size, and/or use of iterative reconstruction technique. FINDINGS: Aortic arch unremarkable. Both vertebral arteries unremarkable. Both carotid arteries unremarkable. No significant carotid artery stenosis (by NASCET criteria). Mild cervical spine degenerative disease. All teeth absent. IMPRESSION: Unremarkable CTA Neck with Contrast. 04/26 21:36 Order name: Basic Metabolic Panel; Complete Time: 23:02 4 04/26 21:36 Order name: CBC with Diff; Complete Time: 23:02 4 04/26 21:36 Order name: LFT's; Complete Time: 23:02 04/26 21:36 Order name: Magnesium; Complete Time: 23:02 4 04/26 21:36 Order name: NT PRO-BNP; Complete Time: 23:02 04/26 21:36 Order name: PT-INR; Complete Time: 23:02 4 04/26 21:36 Order name: Troponin HS; Complete Time: 23:02 4 04/26 21:36 Order name: Test, Urine; Complete Time: 23:02 4 04/27 01:18 Order name: CBC with Automated Diff EDMS 04/27 01:18 Order name: CBC with Automated Diff EDMS 04/27 01:18 Order name: Comprehensive Metabolic Panel EDMS 04/27 01:18 Order name: Comprehensive Metabolic Panel EDMS 04/27 01:18 Order name: Troponin High Sensitivity EDMS 04/27 01:18 Order name: Troponin High Sensitivity EDMS 04/27 01:18 Order name: Troponin High Sensitivity EDMS 04/27 01:18 Order name: Troponin High Sensitivity EDMS 04/26 21:36 Order name: XRAY Chest (1 view); Complete Time: 23:02 4 04/26 22:03 Order name: CT Head Angio 04/26 22:03 Order name: CT Neck Angio 4 04/26 22:03 Order name: CT Head Brain wo Cont 4 04/26 21:36 Order name: EKG; Complete Time: 21:36 04/26 21:36 Order name: Cardiac monitoring; Complete Time: :43 04/26 21:36 Order name: EKG - Nurse/Tech; Complete Time: :43 04/26 21:36 Order name: IV Saline Lock; Complete Time: :43 04/26 21:36 Order name: Labs collected and sent; Complete Time: :43 04/26 21:36 Order name: O2 Per Protocol; Complete Time: 21:43 [facility] 04/26 21:36 Order name: O2 Sat Monitoring; Complete Time: :43 EC/14 23:42 Rate is 124 beats/min. Rhythm is regular, Sinus tachycardia. Right axis deviation sp4 noted. ID interval is normal. QRS interval is normal. QT interval is normal. No Q waves. T waves are Normal. No ST changes noted. Clinical impression: No evidence of ischemia. Interpreted by me. Reviewed by me. Administered Medications: 22:37 Drug: Promethazine PO 25 mg PO once Route: PO; rv 23:27 Follow up: Response: No adverse reaction rv 22:37 Drug: Ketorolac IVP 30 mg IVP once Route: IVP; Site: left antecubital; rv 23:27 Follow up: Response: No adverse reaction; Pain is unchanged, physician notified rv 23:27 Drug: morphine IVP or IV 4 mg IVP once over 4 mins Route: IVP; Infused Over: 4 mins; rv Site: left antecubital; 04/27 01:25 Follow up: Response: No adverse reaction rv 04/26 23:48 Drug: Aspirin PO Chewable Tablet 324 mg PO once; 81 mg tablets x 4 Route: PO; rv 04/27 01:25 Follow up: Response: No adverse reaction rv 04/26 23:48 Drug: LORazepam PO 1 mg PO once Route: PO; rv 04/27 01:25 Follow up: Response: No adverse reaction rv 01:41 Drug: Zolpidem PO 10 mg PO once Route: PO; rv 01:41 Follow up: Response: Medication administered at discharge. rv Disposition Summary: 04/27/23 00:04 Hospitalization Ordered Notes: Hospitalization Status: Observation sp4 Provider: Tay Meza spNydia Location: Telemetry/[facility] (observation) sp4 Condition: Stable sp4 Problem: new sp4 Symptoms: have improved sp4 Bed/Room Type: Standard sp4 Room Assignment: 223(04/27/23 01:18) sp Diagnosis - Left arm weakness, atypical chest pain, unsteady gait, evaluation for CVA sp4 Forms: - Medication Reconciliation Form sp4 - SBAR form sp4 - Leadership Thank You Letter sp4 NIH Stroke Scale - NIH Stroke Score Date: 04/26/2023 Time: 23:41 Total Score = 0 10. Dysarthria (speech clarity - read or repeat words) - 0(Normal) 11. Extinction and Inattention (visual/tactile/auditory/spatial/personal) - 0(No abnormality) 1a. Level of Consciousness (LOC) - 0(Alert) 1b. Level of Consciousness (LOC) (Month \T\ Age) - 0(Both) 1c. LOC Commands (Open \T\ Closes Eyes/Auto Cleaner) - 0(Both) 2. Best Gaze (Lateral Gaze Paresis) - 0(Normal) 3. Visual Field Loss - 0(No visual loss) 4. Facial Palsy - 0(Normal) 5a. Left Arm: Motor (10-second hold) - 0(No drift) 5b. Right Arm: Motor (10-second hold) - 0(No drift) 6a. Left Leg: Motor (5-second hold - always test supine) - 0(No drift) 6b. Right Leg: Motor (5-second hold - always test supine) - 0(No drift) 7. Limb Ataxia (finger/nose \T\ heel/eckert - test with eyes open) - 0(Absent) 8. Sensory Loss (pinprick arms/legs/face) - 0(Normal) 9. Best Language: Aphasia (description/naming/reading) - 0(No aphasia) Initials: sp4 Signatures: Dispatcher [employer] EDMS Padma Berry Ronaldo RN RN Tho Mcelroy MD MD sp4 Rosa Rodriguez RN RN cm10 Corrections: (The following items were deleted from the chart) 01:18 00:04 spNydia sp
[2023-04-27] MEDS ORDERED: ONDANSETRON 4 MG/2 ML VIAL IV PRN (01:13)
[2023-04-27] MEDS ORDERED: ACETAMINOPHEN 500 MG TAB PO PRN (01:13)
--- NOTE | 2023-04-27 01:13 | P.HP ---
Certification for Inpatient Patient admitted to: Observation With expected LOS: <2 Midnights Practitioner: I am a practitioner with admitting privileges, knowledge of patient current condition, hospital course, and medical plan of care. Services: Services provided to patient in accordance with Admission requirements found in Title 42 Section 412.3 of the Code of Federal Regulations Patient History Date of Service: 04/27/23 Reason for admission: Chest pain, left-sided weakness History of Present Illness: 42-year-old female with significant past medical history of migraine, hypertension, depression, anxiety, mitral valve prolapse, atrial fibrillation, CAD came to ER with chest pain and left arm weakness. Chest pain is located retrosternally. Nonradiating. Pressure-like feeling. Intermittent. Not associated with any diaphoresis. No fever or chills. No cough. At the time of interview the chest pain is better. Patient also complains of left-sided weak ness especially left upper extremity. No slurring of speech. Denies any headache. No nausea vomiting or diarrhea. No seizure-like activity. Patient had a code stroke and had CT CTA which were negative for any acute stroke and was admitted for closer monitoring and chest pain to rule out ACS Allergies No Known Drug Allergies Allergy (Verified 06/26/15 08:51) Unknown Home medications list reviewed: Yes Home Medications: Duloxetine HCl [Cymbalta] 60 mg PO BID 04/27/23 Zolpidem Tartrate [Ambien*] 10 mg PO BEDTIME 04/27/23 - Past Medical/Surgical History Diabetic: No Past Medical History: Reviewed- Non-Contributory -: migraine -: HTN -: [place]- 2003 -: DISC HERNIATION L5 S1 -: AFIB -: MYTRAL VALVE PROLAPSE -: GIB -: RLS -: depression/anxiety -: kidney stone Past Surgical History: Reviewed- Non-Contributory -: x 3 -: exlap secondary to ce section - Family History Family History: Reviewed- Non-Contributory - Family History Father -: Heart disease, Diabetes, Cancer Notes: . recently Mother -: Cancer Notes: ovarian - Social History Smoking Status: Never smoker Alcohol use: Yes CD- Drugs: No Caffeine use: Yes Review of Systems 10-point ROS is otherwise unremarkable General: Weakness, Malaise Eyes: Unremarkable ENT: Unremarkable Respiratory: Unremarkable Cardiovascular: Chest Pain Gastrointestinal: Unremarkable Genitourinary: Unremarkable Musculoskeletal: Unremarkable Integumentary: Unremarkable Neurological: Weakness, Numbness Physical Examination - Vital Signs Temperature: 98.1 F Blood Pressure: 125/106 Pulse: 98 Respirations: 18 Pulse Ox (%): 98 - Physical Exam General: Alert, In no apparent distress, Oriented x3 HEENT: Atraumatic, Normocephalic Neck: Supple Respiratory: Clear to auscultation bilaterally, Normal air movement Cardiovascular: Regular rate/rhythm, Normal S1 S2, No rubs Capillary refill: <2 Seconds Gastrointestinal: Soft and benign, W/out hepatosplenomegaly, No tenderness Musculoskeletal: No clubbing, No swelling Integumentary: No rashes, No breakdown Neurological: Normal speech, Normal strength at 5/5 x4 extr, Sensation intact, Cranial nerves 3-12 intact, Normal reflexes 2+, Other (Anxious ) Lymphatics: No axilla or inguinal lymphadenopathy - Studies Laboratory Data (last 24 hrs) 04/26/23 04/26/23 04/26/23 22:16 22:16 22:16 WBC 8.80 Hgb 15.2 H Hct 44.3 Plt Count 240 PT 11.5 INR 1.05 Sodium 137 Potassium 3.2 L BUN 11 Creatinine 1.53 H Glucose 102 Magnesium 2.1 Total Bilirubin 0.4 AST 13 L ALT 28 Alkaline Phosphatase 124 H Assessment and Plan - Problems (Diagnosis) (1) TIA (transient ischemic attack) Current Visit: Yes Status: Acute Plan: Left-sided weakness CT CTA was negative Weakness resolving Will get an MRI of the brain Neurology consult if weakness persisting or if MRI is positive Started on aspirin and statin Will get an echocardiogram Monitor closely under telemetry (2) Chest pain Onset Date: 03/01/15 Current Visit: No Status: Acute Plan: Chest pain rule out ACS Serial troponins Monitor closely on telemetry Will get an echocardiogram Aspirin and statin to be continued (3) Anxiety Current Visit: Yes Status: Chronic Plan: Continue home medications and titrate as needed (4) HTN (hypertension) Current Visit: No Status: Chronic Plan: Continue home medications Qualifiers: Hypertension type: primary hypertension Qualified Code(s): I10 - Essential (primary) hypertension (5) Hypokalemia Current Visit: Yes Status: Acute Plan: Hypokalemia noted Renal parameters monitored as well Renal insufficiency noted Will get IV fluids Monitor renal parameters and electrolytes Discharge Plan: Home Plan to discharge in: 24 Hours - Advance Directives Does patient have a Living Will: No Does patient have a Durable POA for Healthcare: No - Code Status/Comfort Care Code Status: Full Code Time Spent Managing Pts Care (In Minutes): 54
[2023-04-27] MEDS ORDERED: ZOLPIDEM TARTRATE 5 MG TABLET ONE (01:34)
[2023-04-27 02:39] VITALS: BMI 33.7
[2023-04-27] MEDS ORDERED: POTASSIUM CL SA 10 MEQ TAB PO ONE ×2 (03:17→03:30)
[2023-04-27] MEDS: MORPHINE 2 MG/ML SYR IV PRN ×3 (03:32→11:34)
[2023-04-27 07:16] VITALS: BP 134/74; TEMP 97.3
--- NOTE | 2023-04-27 08:54 | RAD REPORT ---
EXAM DESCRIPTION: MRI - Brain Wo Cont - 04/27/2023 8:17 am CLINICAL HISTORY: TIA COMPARISON: CT and CT angiogram of the same day TECHNIQUE: Multiplanar multisequence MRI of the brain performed without IV contrast. FINDINGS: Motion artifact somewhat limits evaluation, despite attempts at repeat imaging. No evidence of acute infarct or other diffusion signal abnormality. No evidence of acute intracranial hemorrhage or abnormal extra-axial fluid collections. Ventricular caliber within normal for age. Midline structures are unremarkable. No significant white matter signal abnormality. No mass effect or midline shift. Major vascular flow voids are preserved. Mastoid air cells and paranasal sinuses are clear. IMPRESSION: No acute intracranial process. No evidence of ventriculomegaly or mass effect.
[2023-04-27] MEDS ORDERED: ASPIRIN EC 81 MG TAB PO SCH (09:00)
[2023-04-27] MEDS ORDERED: DULOXETINE 30 MG CAP PO SCH (09:00)
[2023-04-27 09:22] VITALS: O2SAT 96
--- NOTE | 2023-04-27 10:52 | P.DS ---
Admission Date: 04/27/23 Discharge Date: 04/27/23 Disposition: ROUTINE DISCHARGE Discharge Condition: FAIR Reason for Admission: Chest pain, left-sided weakness - Problems (1) Left-sided weakness Status: Acute (2) Chest pain Onset Date: 03/01/15 Status: Acute (3) Anxiety Status: Chronic Brief History of Present Illness: 42-year-old female with significant past medical history of migraine, hypertension, depression, anxiety, mitral valve prolapse, atrial fibrillation, CAD came to ER with chest pain and left arm weakness. Chest pain is located retrosternally. Nonradiating. Pressure-like feeling. Intermittent. Not associated with any diaphoresis. No fever or chills. No cough. At the time of interview the chest pain is better. Patient also complains of left-sided weakness especially left upper extremity. No slurring of speech. Denies any headache. No nausea vomiting or diarrhea. No seizure-like activity. Patient had a code stroke and had CT CTA which were negative for any acute stroke and was admitted for closer monitoring and chest pain to rule out ACS. Hospital Course: Patient placed under observation on the medical floor. Troponin trended negative. Stroke workup with MRI of the brain also came back negative. ACS and stroke ruled out. Her chest pain is likely atypical. Patient has history of anxiety disorder, recently underwent workup for blurry vision including MRI of the brain which was negative. Patient mentioned that she had an echocardiogram done prior to presenting in the ED with came back normal. She follows with cardiology Dr. Higgins and has been informed to follow-up with his voltage inspector to evaluate her for stress test. She has hyperlipidemia for which she is prescribed Lipitor. Patient had no limb weakness during the hospital stay. Vital Signs/Physical Exam: Temp Pulse Resp BP Pulse Ox 97.3 F 109 H 18 134/74 97 04/27/23 07:13 04/27/23 07:13 04/27/23 07:13 04/27/23 07:13 04/27/23 07:13 General: Alert, In no apparent distress, Oriented x3 HEENT: Mucous membr. moist/pink Neck: Supple, JVD not distended Respiratory: Clear to auscultation bilaterally Cardiovascular: Regular rate/rhythm Gastrointestinal: Non-distended Musculoskeletal: No swelling Integumentary: No rashes, No cyanosis Neurological: Other (No focal motor deficit.) Laboratory Data at Discharge: WBC 8.80 thou/uL (4.3-10.9) 04/26/23 22:16 Hgb 15.2 g/dL (12.0-15.0) H 04/26/23 22:16 Hct 44.3 % (36.0-45.0) 04/26/23 22:16 Plt Count 240 thou/uL (152-406) 04/26/23 22:16 PT 11.5 SECONDS (9.5-12.5) 04/26/23 22:16 INR 1.05 04/26/23 22:16 Sodium 137 mEq/L (136-145) 04/26/23 22:16 Potassium 3.2 mEq/L (3.5-5.1) L 04/26/23 22:16 BUN 11 mg/dL (7-18) 04/26/23 22:16 Creatinine 1.53 mg/dL (0.55-1.02) H 04/26/23 22:16 Glucose 102 mg/dL (74-106) 04/26/23 22:16 Magnesium 2.1 mg/dL (1.6-2.4) 04/26/23 22:16 Total Bilirubin 0.4 mg/dL (0.2-1.0) 04/26/23 22:16 AST 13 U/L (15-37) L 04/26/23 22:16 ALT 28 U/L (13-56) 04/26/23 22:16 Alkaline Phosphatase 124 U/L (45-117) H 04/26/23 22:16 Triglycerides 286 mg/dL (<150) H 04/27/23 03:53 Cholesterol 210 mg/dL (<200) H 04/27/23 03:53 HDL Cholesterol 41 mg/dL (40-60) 04/27/23 03:53 Cholesterol/HDL Ratio 5.12 04/27/23 03:53 Home Medications: Aspirin [Aspirin EC] 81 mg PO DAILY #30 tab 04/27/23 Atorvastatin Calcium [Lipitor] 40 mg PO BEDTIME #30 tab 04/27/23 Duloxetine HCl [Cymbalta] 60 mg PO BID 04/27/23 Hydrocodone 5/APAP 325 [[place] 5/325] 1 tab PO Q6H PRN #12 tab 04/27/23 Zolpidem Tartrate [Ambien*] 10 mg PO BEDTIME 04/27/23 New Medications: Aspirin [Aspirin EC] 81 mg PO DAILY #30 tab Atorvastatin Calcium [Lipitor] 40 mg PO BEDTIME #30 tab Hydrocodone 5/APAP 325 [[place] 5/325] 1 tab PO Q6H PRN #12 tab PRN Reason: Pain Physician Discharge Instructions: Please follow up with your voltage inspector as soon as possible. You may need a stress test. Diet: AHA Activity: Ad francine Followup: Edd Friedman MD [Primary Care Provider] - 1-2 Weeks Jaciel Mathis MD [ACTIVE - CAN ADMIT] - Time spent managing pt's care (in minutes): 27
--- NOTE | 2023-04-27 16:57 | EKG ---
Test Date: 2023-04-26 Test Time: 21:49:38 Tester Compressed Gases: AMADOR MEASUREMENT RESULTS: Intervals: Rate: 124 LA: 126 QRSD: 72 QT: 328 QTc: 471 [place]: P: 85 LA: 126 QRS: 90 T: 68 INTERPRETIVE STATEMENTS: Sinus tachycardia Rightward axis Borderline ECG Compared to ECG 03/10/2023 04:34:17 Right-axis deviation now present Sinus rhythm no longer present Prolonged QT interval no longer present Electronically Signed On 04-27-23 16:55:18 CHARGEMASTER ANALYST by Jaciel Mathis
[2023-04-27] MEDS ORDERED: ATORVASTATIN 40 MG TAB PO SCH (21:00)
[2023-04-27] MEDS ORDERED: ZOLPIDEM TARTRATE 10 MG TABLET PO SCH (21:00)
--- NOTE | 2023-04-29 10:58 | RAD REPORT ---
EXAM DESCRIPTION: CT - Head Brain Wo Cont - 04/27/2023 6:00 am CLINICAL HISTORY: Left side weakness for 2 days COMPARISON: CTA Head with Contrast 09/24/2022 TECHNIQUE: Head CTA axial images acquired with IV contrast. Coronal and sagittal CTA MIPs and MPRs c reated. Exam performed according to departmental dose-optimization program which includes automated e xposure control, adjustment of mA and/or kV according to patient size, and/or use of iterative recons truction technique. FINDINGS: Both intracranial vertebral, basilar, and both posterior cerebral arteries patent. Atretic right P1 segment and persistent origin of right posterior cerebral artery (normal varia nt). Both intracranial internal carotid, both middle cerebral, anterior communicating, and both anterior c erebral arteries unremarkable. No evidence of large intracranial arterial occlusion, aneurysm, or AVM. IMPRESSION: Unremarkable CTA Head with Contrast. If there remains strong clinical suspicion of acute ischemic infarct, then MR brain/head recommended (if there are no contraindications). Electronically signed by: Alex Sood MD 04/26/2023 11:59 PM WEIGHER AND CRUSHER Due to temporary technical issues with the PACS/Fluency reporting system, reports are being signed by the in house radiologists without review as a courtesy to insure prompt reporting. The interpreting radiologist is fully responsible for the content of the report.
--- NOTE | 2023-04-29 11:01 | RAD REPORT ---
EXAM DESCRIPTION: CT - Neck Angio - 04/27/2023 6:01 am CLINICAL HISTORY: Left side weakness for 2 days COMPARISON: CTA Neck with Contrast 09/24/2022 TECHNIQUE: Neck CTA axial images acquired with IV contrast. Coronal and sagittal CTA MIPs and MPRs c reated. Exam performed according to departmental dose-optimization program which includes automated e xposure control, adjustment of mA and/or kV according to patient size, and/or use of iterative recons truction technique. FINDINGS: Aortic arch unremarkable. Both vertebral arteries unremarkable. Both carotid arteries unremarkable. No significant carotid artery stenosis (by NASCET criteria). Mild cervical spine degenerative disease. All teeth absent. IMPRESSION: Unremarkable CTA Neck with Contrast Electronically signed by: Alex Sood MD 04/27/2023 12:03 AM SPORTS REPORTER Due to temporary technical issues with the PACS/Fluency reporting system, reports are being signed by the in house radiologists without review as a courtesy to insure prompt reporting. The interpreting radiologist is fully responsible for the content of the report.
--- NOTE | 2023-04-29 11:03 | RAD REPORT ---
EXAM DESCRIPTION: CT - Head angio - 04/27/2023 6:01 am CLINICAL HISTORY: Left side weakness for 2 days COMPARISON: CTA Head with Contrast 09/24/2022 TECHNIQUE: Head CTA axial images acquired with IV contrast. Coronal and sagittal CTA MIPs and MPRs c reated. Exam performed according to departmental dose-optimization program which includes automated e xposure control, adjustment of mA and/or kV according to patient size, and/or use of iterative recons truction technique. FINDINGS: Both intracranial vertebral, basilar, and both posterior cerebral arteries patent. Atretic right P1 segment and persistent origin of right posterior cerebral artery (normal varia nt). Both intracranial internal carotid, both middle cerebral, anterior communicating, and both anterior c erebral arteries unremarkable. No evidence of large intracranial arterial occlusion, aneurysm, or AVM. IMPRESSION: Unremarkable CTA Head with Contrast. If there remains strong clinical suspicion of acute ischemic infarct, then MR brain/head recommended (if there are no contraindications). Electronically signed by: Alex Sood MD 04/26/2023 11:59 PM POTAT[employer] CHIP PACKAGING MACHINE OPERATOR Due to temporary technical issues with the PACS/Fluency reporting system, reports are being signed by the in house radiologists without review as a courtesy to insure prompt reporting. The interpreting radiologist is fully responsible for the content of the report.
== END 2023-04-27 12:59 | disposition home or self-care (01) ==
LOC: ER 21:26 → 2ND 04-27 01:13
PROVIDERS: ADMIT Family Medicine; ATTEND Internal Medicine
DX: R07.9 Chest pain, unspecified (principal); R53.1 Weakness; I10 Essential (primary) hypertension; F32.A Depression, unspecified; F41.9 Anxiety disorder, unspecified; I34.1 Nonrheumatic mitral (valve) prolapse; I48.91 Unspecified atrial fibrillation; I25.10 Atherosclerotic heart disease of native coronary artery without angina pectoris; E87.6 Hypokalemia
CPT/HCPCS: 93005; 85025; 80048; 36415; 83735; 81025; 85610; 80061; 80076; 83036; 84484 ×3; 83880; 70450; 70496; 70498; 71045; 70551; 94760 ×2; 96375; 96374; 99285; Q9967; Q0169; J2270 ×3; G0378 ×2

== ENCOUNTER 2023-07-19 05:26 | Emergency (ER) | payer BC ==
[2023-07-19] MEDS ORDERED: NITROGLYCERIN 0.4 MG/TAB SL ONE (05:48)
[2023-07-19 05:50] LABS: Absolute Basophils 0.1 K/uL (0-0.5); Absolute Eosinophils 0.1 K/uL (0-0.5); Absolute Lymphocytes (CBC) 2.8 K/uL (0.7-4.9); Absolute Monocytes 0.8 K/uL (0.1-1.3); Absolute Neutrophil 5.9 K/uL (1.8-8.0); Basophils % 0.7 % (0-1.3); Eosinophils % 1.1 % (0-4.4); Hematocrit 38.9 % (36.0-45.0); Hemoglobin 13.1 g/dL (12.0-15.0); Lymphocytes % 28.5 % (15.3-44.8); MCH 30.3 pg (27.0-35.0); MCHC 33.7 g/dL (32.0-36.0); MPV 8.7 fL (7.6-11.3); Monocytes % 8.2 % (3.3-12.3); Neutrophils % 61.5 % (41.7-73.7); Platelets 257 thou/uL (152-406); RBC Red Blood Cell Count 4.33 M/uL (3.86-4.86)
[2023-07-19 06:10] LABS: ALT/SGPT 16 U/L (13-56); AST/SGOT 9 U/L (15-37); Albumin 3.3 g/dL (3.4-5.0); Alkaline Phosphatase 106 U/L (45-117); Anion Gap 8.9 mEq/L (5.0-15.0); BUN Blood Urea Nitrogen 15 mg/dL (7-18); Bicarbonate 28 mEq/L (21-32); Bilirubin Total 0.2 mg/dL (0.2-1.0); Globulin 3.4 g/dL (2.3-3.5); Glomerular Filtration Rate 92 ml/min (=/>90); Glucose Level 103 mg/dL (74-106); Magnesium 1.9 mg/dL (1.6-2.4); NT PRO-BNP 259 pg/mL (<125); Potassium 3.9 mEq/L (3.5-5.1); Protein, Total 6.7 g/dL (6.4-8.2); Sodium Level 137 mEq/L (136-145)
[2023-07-19 06:13] LABS: Bilirubin Direct < 0.1 mg/dL (0-0.2); Bilirubin Indirect, Calculated ND mg/dL (0.2-0.8); Troponin High Sensitivity < 3.0 pg/mL (<58.9)
[2023-07-19] MEDS ORDERED: ONDANSETRON 4 MG/2 ML VIAL ONE ×2 (06:21→09:27)
[2023-07-19] MEDS ORDERED: MORPHINE 4 MG/ML SYR ONE (06:22)
[2023-07-19] MEDS ORDERED: ALPRAZOLAM 1 MG TABLET ONE (07:08)
--- NOTE | 2023-07-19 07:45 | RAD REPORT ---
EXAM DESCRIPTION: CT - Chest For Pe Angio - 07/19/2023 7:34 am CLINICAL HISTORY: CHEST PAIN COMPARISON: Chest Abd Pelvis Wo Con dated 03/10/2023; Chest For Pe Angio dated 11/19/2020; Chest For P e Angio dated 08/20/2016 TECHNIQUE: Dynamically enhanced axial 3 mm thick images of the chest were obtained during administra tion of <100> mL Isovue 370 IV contrast. Coronal and oblique reconstruction images were generated and reviewed. Exam utilizes a protocol for optimal evaluation of pulmonary arterial tree. Maximum intensity projections 3D imaging was utilized All CT scans are performed using dose optimization technique as appropriate and may include automated exposure control or mA/KV adjustment according to patient size. FINDINGS: Chest Wall: No suspicious thyroid nodules or pathologic lymphadenopathy. Lungs: No acute abnormality. Pleura: No significant effusions or pneumothorax. Mediastinum/preston: No pathologic lymphadenopathy. Circumferential thickened distal esophagus which cou ld reflect esophagitis . Pulmonary arteries/Aorta: No filling defect identified. No aortic aneurysm. Mild enlargement of the m ain pulmonary artery could indicate pulmonary hypertension. Heart: No significant pericardial effusion. Cardiomegaly. Upper abdomen: No acute abnormality. Bones: No acute abnormality. IMPRESSION: Negative for pulmonary embolism. Question pulmonary artery hypertension. Circumferential thickened distal esophagus could reflect esophagitis.
[2023-07-19] MEDS ORDERED: PANTOPRAZOLE 40 MG INJ ONE (08:33)
--- NOTE | 2023-07-19 08:44 | EDPHYS ---
Physician Documentation [facility] Name: Yohana Perez Age: 42 yrs Sex: Female : 1980 Arrival Date: 07/19/2023 Time: 05:26 Bed 4 Private MD: THELMA Physician Scott Mari HPI: 07/18 06:07 This 42 yrs old Female presents to ER via Ambulatory with complaints of Chest Pain, rt Shortness Of Breath. 06:07 Patient presents to the ED with chest pain, shortness of breath that woke her up. She rt reports the chest pain as a "pressure-like bubble sensation" in her chest. She took some aspirin, had some incomplete relief of her symptoms. Reports ongoing chest pain, shortness of breath. Denies other acute complaints at this time, symptoms are moderate in severity, no other aggravating or alleviating factors.. 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 - Infectious Disease History:: Denies. - Social history:: Smoking status: Reported history of juuling and/or vaping. - Family history:: not pertinent. ROS: 06:07 Constitutional: Negative for fever, chills, and weight loss, Abdomen/GI: Negative for rt abdominal pain, nausea, vomiting, diarrhea, and constipation, MS/Extremity: Negative for injury and deformity, Skin: Negative for injury, rash, and discoloration, Neuro: Negative for headache, weakness, numbness, tingling, and seizure, 06:07 Cardiovascular: Positive for chest pain, Negative for edema, 06:07 Respiratory: Positive for shortness of breath, Negative for cough, Exam: 06:07 Constitutional: This is a well developed, well nourished patient who is awake, alert, rt and in no acute distress. Head/Face: Normocephalic, atraumatic. Chest/axilla: Normal chest wall appearance and motion. Nontender with no deformity. No lesions are appreciated. Cardiovascular: Regular rate and rhythm with a normal S1 and S2. No gallops, murmurs, or rubs. Normal PMI, no JVD. No pulse deficits. Respiratory: Lungs have equal breath sounds bilaterally, clear to auscultation and percussion. No rales, rhonchi or wheezes noted. No increased work of breathing, no retractions or nasal flaring. Abdomen/GI: Soft, non-tender, with normal bowel sounds. No distension or tympany. No guarding or rebound. No evidence of tenderness throughout. Skin: Warm, dry with normal turgor. Normal color with no rashes, no lesions, and no evidence of cellulitis. MS/ Extremity: Pulses equal, no cyanosis. Neurovascular intact. Full, normal range of motion. Neuro: Awake and alert, GCS 15, oriented to person, place, time, and situation. Cranial nerves II-XII grossly intact. Motor strength 5/5 in all extremities. Sensory grossly intact. Cerebellar exam normal. Normal gait. 06:07 ECG was reviewed by the Attending Physician. 08:09 ECG was reviewed by the Attending Physician. [place] Vital Signs: 05:33 BP 153 / 87; Pulse 79; Resp 18; Temp 97.6; Pulse Ox 100% ; Weight 81.65 kg; Height 5 vc1 ft. 2 in. ; Pain 0/10; 06:46 BP 116 / 77; Pulse 79; Resp 13; Pulse Ox 100% on R/A; jw7 07:07 BP 116 / 77; Pulse 76; Resp 16; Pulse Ox 98% on R/A; iw 08:15 BP 99 / 67; Pulse 83; Resp 18; Pulse Ox 97% on R/A; ss 09:36 BP 104 / 63; Pulse 64; Resp 16; Temp 98.1; Pulse Ox 100% on R/A; iw 05:33 Body Mass Index 32.92 (81.65 kg, 157.48 cm) vc1 05:33 Pain Scale: Adult vc1 MDM: 05:33 Patient medically screened. rt 07:44 HEART Score: History: Moderately Suspicious (1), ECG: Non specific repolarization [place] disturbance / LBTB / PM (1), Age: < or = 45 years (0), Risk Factors: 1 or 2 risk factors (1), [Hypertension] [Obesity] Troponin: < or = 1 x Normal Limit (0). The patient was given aspirin in the Emergency Department. RAJEEV Risk Score: TOTAL SCORE = 0. Data reviewed: vital signs, nurses notes, lab test result(s), EKG, radiologic studies. Consideration of Admission/Observation Escalation of care including admission/observation considered. I considered the following discharge prescriptions or medication management in the emergency department Medications were administered in the Emergency Department. See JUN. 07/18 05:39 Order name: Basic Metabolic Panel; Complete Time: 06:14 rt 07/18 05:39 Order name: CBC with Diff; Complete Time: 06:06 rt 07/18 05:39 Order name: LFT's; Complete Time: 06:14 rt 07/18 05:39 Order name: Magnesium; Complete Time: 06:14 rt 07/18 05:39 Order name: NT PRO-BNP; Complete Time: 06:14 rt 07/18 05:39 Order name: Troponin HS; Complete Time: 06:14 rt 07/18 07:10 Order name: Troponin High Sensitivity; Complete Time: 08:40 [facility] 07/18 05:39 Order name: XRAY Chest (1 view) rt 07/18 06:48 Order name: CT Chest For PE Angio; Complete Time: 08:20 rt 07/18 07:10 Order name: EKG; Complete Time: 07:11 [facility] 07/18 05:39 Order name: Cardiac monitoring; Complete Time: 05:40 rt 07/18 05:39 Order name: EKG - Nurse/Tech; Complete Time: 05:40 rt 07/18 05:39 Order name: IV Saline Lock; Complete Time: 05:40 rt 07/18 05:39 Order name: Labs collected and sent; Complete Time: 05:40 rt 07/18 05:39 Order name: O2 Per Protocol; Complete Time: 05:40 rt 07/18 05:39 Order name: O2 Sat Monitoring; Complete Time: 05:40 rt 07/18 07:10 Order name: EKG - Nurse/Tech; Complete Time: 08:09 [facility] EC:07 Rate is 74 beats/min. Rhythm is regular, Sinus Rhythm with No ectopy. QRS [place] is rt Normal. IN interval is normal. QRS interval is normal. QT interval is normal. No Q waves. No ST changes noted. Interpreted by me. 08:09 Rate is 69 beats/min. Rhythm is regular. QRS [place] is Normal. IN interval is normal. QRS [place] interval is normal. QT interval is normal. No Q waves. T waves are Normal. No ST changes noted. Clinical impression: Normal ECG and No evidence of ischemia. Interpreted by me. Reviewed by me. Administered Medications: 05:55 Drug: Nitroglycerin Sublingual 0.4 mg Sublingual once; every five minute if needed x3 jw7 Route: Sublingual; 06:02 Drug: Nitroglycerin Sublingual 0.4 mg Sublingual once; every five minute if needed x3 jw7 Route: Sublingual; 06:08 Drug: Nitroglycerin Sublingual 0.4 mg Sublingual once; every five minute if needed x3 jw7 Route: Sublingual; 06:28 Follow up: Response: No adverse reaction; No change in condition; Pain is unchanged, [facility] physician notified 06:27 Drug: Ondansetron IVP 4 mg IVP once; over 2 minutes Route: IVP; Site: right antecubital;jw 07:14 Follow up: Response: No adverse reaction iw 06:28 Drug: morphine IVP or IV 4 mg IVP once over 4 mins Route: IVP; Infused Over: 4 mins; jw7 Site: right antecubital; 07:14 Follow up: Response: No adverse reaction; Pain is decreased iw 07:11 Drug: ALPRAZolam PO Tablet 2 mg PO once Route: PO; iw 09:22 Follow up: Response: No adverse reaction iw 08:41 Drug: Pantoprazole IVP 40 mg IVP once Route: IVP; Site: right antecubital; iw 09:36 Follow up: Response: No adverse reaction iw 09:22 Drug: GI Cocktail without - (Maalox PO 30 ml, Lidocaine Mucous Membrane 2 % 15 iw ml) PO once Route: PO; 09:36 Follow up: Response: No adverse reaction iw 09:26 Drug: HYDROmorphone IVP 0.5 mg IVP once Route: IVP; Site: right antecubital; iw 09:35 Follow up: Response: No adverse reaction iw 09:26 Drug: Ondansetron IVP 4 mg IVP once; over 2 minutes Route: IVP; Site: right antecubital;iw 09:35 Follow up: Response: No adverse reaction iw Disposition Summary: 07/19/23 08:43 Discharge Ordered Notes: Location: Home [place] Problem: new [place] Symptoms: have improved [place] Condition: Stable [place] Diagnosis - Chest pain, unspecified [place] - Chest pain on breathing [place] - Strain of muscle and tendon of front wall of thorax [place] - Gastro-esophageal reflux disease with esophagitis [place] Followup: [place] - With: Private Physician - When: 2 - 3 days - Reason: Recheck today's complaints, Continuance of care, Re-evaluation by your physician Followup: [place] - With: Lb Jones MD - When: 2 - 3 days - Reason: Recheck today's complaints, Re-evaluation by your physician Discharge Instructions: - Discharge Summary Sheet [place] - Nonspecific Chest Pain, Adult [place] - Chest Wall Pain [place] - Costochondritis [place] - Esophagitis [place] - Gastroesophageal Reflux Disease, Adult [place] - Chest Wall Pain, [id number] [place] - Nonspecific Chest Pain, Adult, [id number] [place] - Aspirin and Your Heart [place] Forms: - Medication Reconciliation Form [place] - Thank You Letter [place] - Antibiotic Education [place] - Prescription Opioid Use [place] - Patient Portal Instructions [place] - Leadership Thank You Letter [place] Prescriptions: - Ibuprofen 600 mg Oral tablet - take 1 tablet ORAL route every 6 hours As needed take with food; 20 tablet; [place] Refills: 0, Product Selection Permitted - Protonix 40 mg Oral Tablet - take 1 tablet ORAL route once daily; 30 tablet; Refills: 0, Product Selection [place] Permitted Signatures: Dispatcher [employer] EDScott Lindsay MD MD cha Williams, Irene RN FÁTIMA iw Linnette Terrazas RN RN vc1 Debbie Cui RN RN jw7 Dar Campoverde MD MD rt Corrections: (The following items were deleted from the chart) 05:40 05:40 BASIC METABOLIC PANEL+C.LAB.BRZ ordered. EDMS EDMS 05:40 05:40 CBC+H.LAB.BRZ ordered. EDMS EDMS 05:40 05:40 HEPATIC FUNCTION+C.LAB.BRZ ordered. EDMS EDMS 05:40 05:40 MAGNESIUM+C.LAB.BRZ ordered. EDMS EDMS 05:40 05:40 PROBNP+C.LAB.BRZ ordered. EDMS EDMS 05:40 05:40 Troponin High Sensitivity+C.LAB.BRZ ordered. EDMS EDMS
--- NOTE | 2023-07-19 08:44 | ER ---
Nurse's Notes [facility] Name: Yohana Perez Age: 42 yrs Sex: Female : 1980 Arrival Date: 07/19/2023 Time: 05:26 Bed 4 Private MD: Diagnosis: Chest pain, unspecified;Chest pain on breathing;Strain of muscle and tendon of front wall of thorax;Gastro-esophageal reflux disease with esophagitis Presentation: 07/18 05:33 Chief complaint: Patient states: got SOB around 0330. Thought I had indigestion took vc1 tums, got worse. Coronavirus screen: At this time, the client does not indicate any symptoms associated with coronavirus-19. Ebola Screen: Patient negative for fever greater than or equal to 101.5 degrees Fahrenheit, and additional compatible Ebola Virus Disease symptoms Patient denies exposure to infectious person. Patient denies travel to an Ebola-affected area in the 21 days before illness onset. No symptoms or risks identified at this time. Initial Sepsis Screen: Does the patient meet any 2 criteria? No. Patient's initial sepsis screen is negative. Does the patient have a suspected source of infection? No. Patient's initial sepsis screen is negative. Risk Assessment: Do you want to hurt yourself or someone else? Patient reports no desire to harm self or others. Onset of symptoms was July 19, 2023 at 03:30. 05:33 Method Of Arrival: Ambulatory vc1 05:33 Acuity: NICOLASA 3 vc1 Triage Assessment: 05:39 General: Appears distressed, Behavior is cooperative, anxious. Pain: Complains of pain vc1 in anterior aspect of right upper chest, anterior aspect of left upper chest, xiphoid area, mid-sternal area, right breast and left breast Pain does not radiate. Pain currently is 6 out of 10 on a pain scale. Quality of pain is described as sharp, Pain began suddenly. Neuro: Level of Consciousness is awake, alert, obeys commands, Oriented to person, place, time, situation, Appropriate for age. Respiratory: Airway is patent Respiratory effort is even, labored, Respiratory pattern is symmetrical, Breath sounds are diminished bilaterally. in left posterior lower lobe and right posterior lower lobe. GI:. Derm: Skin is intact, is healthy with good turgor, Skin temperature is warm. [employer]: 05:40 LMP N/A - Post-menopause, Not vc1 Historical: - Allergies: 05:36 No Known Allergies; vc1 - PMHx: 05:36 chronic back pain; depressive disorder; GI Bleed; heart attack due to trauma; vc1 Hypertensive disorder; Kidney stones; Migraine; - PSHx: 05:36 section; Emergency laparotomy; vc1 - Immunization history:: Adult Immunizations up to date. - Infectious Disease History:: Denies. - Social history:: Smoking status: Reported history of juuling and/or vaping. - Family history:: not pertinent. Screenin:41 [facility] ED Fall Risk Assessment (Adult) History of falling in the last 3 months, vc1 including since admission No falls in past 3 months (0 pts) Confusion or Disorientation No (0 pts) Intoxicated or Sedated No (0 pts) Impaired Gait No (0 pts) Mobility Assist Device Used No (0 pt) Altered Elimination No (0 pt) Score/Fall Risk Level 0 - 2 = Low Risk Oriented to surroundings, Maintained a safe environment, Educated pt \T\ family on fall prevention, incl call for assistance when getting out of bed. 05:43 Abuse screen: Denies threats or abuse. Nutritional screening: No deficits noted. vc1 Tuberculosis screening: No symptoms or risk factors identified. Assessment: 05:45 General: Appears in no apparent distress. uncomfortable, Behavior is cooperative, jw7 anxious. Pain: Complains of pain in chest Pain does not radiate. Pain currently is 6 out of 10 on a pain scale. Quality of pain is described as sharp, Pain began suddenly, Is continuous. Neuro: Level of Consciousness is awake, alert, obeys commands, Oriented to person, place, time, situation. Cardiovascular: Reports None Heart tones S1 S2 present Respiratory: Airway is patent Trachea midline Respiratory effort is even, unlabored, Respiratory pattern is regular, symmetrical. GI: No deficits noted. No signs and/or symptoms were reported involving the gastrointestinal system. : No deficits noted. No signs and/or symptoms were reported regarding the genitourinary system. EENT: No deficits noted. No signs and/or symptoms were reported regarding the EENT system. Derm: No signs and/or symptoms reported regarding the dermatologic system. Musculoskeletal: Circulation, motion, and sensation intact. Range of motion: intact in all extremities. 06:45 Reassessment: Patient appears in no apparent distress at this time. No changes from jw7 previously documented assessment. Patient and/or family updated on plan of care and expected duration. Pain level reassessed. Patient is alert, oriented x 3, equal unlabored respirations, skin warm/dry/pink. 07:06 Reassessment: Patient appears in no apparent distress at this time. General: Appears in iw no apparent distress. Behavior is calm, cooperative. Pain: Complains of pain in chest. Neuro: Level of Consciousness is awake, alert, obeys commands, Oriented to person, place, time, situation, Ticket Manager are Moves all extremities. Full function. Cardiovascular: Reports chest pain, Patient's skin is warm and dry. Respiratory: Respiratory effort is even, unlabored, Respiratory pattern is regular, symmetrical. EENT:. Derm: Skin is intact, is healthy with good turgor. Musculoskeletal: Range of motion: intact in all extremities. 08:05 Reassessment: pt c/o chest pain 9/10, Dr. Mari notified , repeat EKG and troponin iw ordered. 09:20 Reassessment: pt requesting another round of pain meds prior to discharge , Dr. marta Mari notified. Vital Signs: 05:33 BP 153 / 87; Pulse 79; Resp 18; Temp 97.6; Pulse Ox 100% ; Weight 81.65 kg; Height 5 vc1 ft. 2 in. ; Pain 0/10; 06:46 BP 116 / 77; Pulse 79; Resp 13; Pulse Ox 100% on R/A; jw7 07:07 BP 116 / 77; Pulse 76; Resp 16; Pulse Ox 98% on R/A; iw 08:15 BP 99 / 67; Pulse 83; Resp 18; Pulse Ox 97% on R/A; ss 09:36 BP 104 / 63; Pulse 64; Resp 16; Temp 98.1; Pulse Ox 100% on R/A; iw 05:33 Body Mass Index 32.92 (81.65 kg, 157.48 cm) vc1 05:33 Pain Scale: Adult vc1 ED Course: 05:27 Patient arrived in ED. km8 05:30 Dar Campoverde MD is Attending Physician. rt 05:36 Triage completed. vc1 05:37 EKG done, by ED staff, reviewed by Dar Campoverde MD. Initial lab(s) drawn, by me, km8 sent to lab. Inserted saline lock: 20 gauge in right antecubital area, using aseptic technique. Blood collected. 05:39 Arm band placed on left wrist. vc1 05:42 Basic Metabolic Panel Sent. km8 05:42 CBC with Diff Sent. km8 05:42 LFT's Sent. km8 05:42 Magnesium Sent. km8 05:42 NT PRO-BNP Sent. km8 05:42 Troponin HS Sent. km8 05:43 Patient has correct armband on for positive identification. Placed in gown. Bed in low vc1 position. Call light in reach. Side rails up X2. electronic tech on. Pulse ox on. NIBP on. 05:56 XRAY Chest (1 view) In Process Unspecified. EDMS 07:00 Rose Sims, FÁTIMA is Primary Nurse. iw 07:06 Attending Physician role handed off by Dar Campoverde MD israel 07:06 Scott Mari MD is Attending Physician. israel 07:36 CT Chest For PE Angio In Process Unspecified. EDMS 08:02 Troponin High Sensitivity Sent. ty 08:43 Lb Jones MD is Referral Physician. [place] 09:36 No provider procedures requiring assistance completed. IV discontinued, intact, iw bleeding controlled, No redness/swelling at site. Pressure dressing applied. 09:37 Provided Education on: d/c instructions . iw Administered Medications: 05:55 Drug: Nitroglycerin Sublingual 0.4 mg Sublingual once; every five minute if needed x3 jw7 Route: Sublingual; 06:02 Drug: Nitroglycerin Sublingual 0.4 mg Sublingual once; every five minute if needed x3 jw7 Route: Sublingual; 06:08 Drug: Nitroglycerin Sublingual 0.4 mg Sublingual once; every five minute if needed x3 jw7 Route: Sublingual; 06:28 Follow up: Response: No adverse reaction; No change in condition; Pain is unchanged, jw7 physician notified 06:27 Drug: Ondansetron IVP 4 mg IVP once; over 2 minutes Route: IVP; Site: right antecubital;jw7 07:14 Follow up: Response: No adverse reaction iw 06:28 Drug: morphine IVP or IV 4 mg IVP once over 4 mins Route: IVP; Infused Over: 4 mins; jw7 Site: right antecubital; 07:14 Follow up: Response: No adverse reaction; Pain is decreased iw 07:11 Drug: ALPRAZolam PO Tablet 2 mg PO once Route: PO; iw 09:22 Follow up: Response: No adverse reaction iw 08:41 Drug: Pantoprazole IVP 40 mg IVP once Route: IVP; Site: right antecubital; iw 09:36 Follow up: Response: No adverse reaction iw 09:22 Drug: GI Cocktail without - (Maalox PO 30 ml, Lidocaine Mucous Membrane 2 % 15 iw ml) PO once Route: PO; 09:36 Follow up: Response: No adverse reaction iw 09:26 Drug: HYDROmorphone IVP 0.5 mg IVP once Route: IVP; Site: right antecubital; iw 09:35 Follow up: Response: No adverse reaction iw 09:26 Drug: Ondansetron IVP 4 mg IVP once; over 2 minutes Route: IVP; Site: right antecubital;iw 09:35 Follow up: Response: No adverse reaction iw Medication: 05:43 VIS not applicable for this client. vc1 Outcome: 08:43 Discharge ordered by MD. wood 09:36 Discharged to home ambulatory, with family, iw 09:36 Condition: good 09:36 Discharge instructions given to patient, family, Instructed on discharge instructions, follow up and referral plans. medication usage, Demonstrated understanding of instructions, follow-up care, medications, Prescriptions given X 2, 09:37 Patient left the ED. iw Signatures: Dispatcher [employer] EDMS Scott Mari MD MD cha Williams, Irene RN RN iw Rochelle Jung RN RN ss Calcote, Vanessa, RN RN vc1 Debbie Cui RN RN jw7 Dar Campoverde MD MD rt Marx, Katie, RN RN km8 Kvng [place] Corrections: (The following items were deleted from the chart) 06:33 05:45 Musculoskeletal: Circulation, motion, and sensation intact. Range of motion: jw7 intact in all extremities, jw7
[2023-07-19] MEDS ORDERED: MAGNES/ALUMIN/SIMET 30ML UCUP ONE (09:20)
[2023-07-19] MEDS ORDERED: HYDROMORPHONE HCL 0.5 MG/0.5 ML INJ ONE (09:27)
[2023-07-19 20:22] VITALS: O2SAT 100
[2023-07-19 20:57] VITALS: BP 104/63; TEMP 98.1
--- NOTE | 2023-07-20 11:19 | RAD REPORT ---
EXAM DESCRIPTION: RAD - Chest Single View - 07/19/2023 5:54 am CLINICAL HISTORY: The patient is 42 years old and is Female; CHEST PAIN TECHNIQUE: Frontal view of the chest. COMPARISON: No relevant prior studies available. FINDINGS: Lungs: Unremarkable. No consolidation. Pleural space: Unremarkable. No pneumothorax. Heart: Unremarkable. Mediastinum: Unremarkable. Normal mediastinal contour. Bones/joints: No acute findings. IMPRESSION: No acute findings in the chest. Electronically signed by: Boris Membreno MD 07/19/2023 06:05 AM CDT Due to temporary technical issues with the PACS/Fluency reporting system, reports are being signed by the in house radiologist without review as a courtesy to ensure prompt reporting. The interpreting r adiologist is fully responsible for the content of the report
--- NOTE | 2023-07-20 12:44 | EKG ---
Test Date: 2023-07-19 Test Time: 05:31:01 Yoga Instructor: RV MEASUREMENT RESULTS: Intervals: Rate: 74 GA: 122 QRSD: 76 QT: 404 QTc: 448 Aquilla: P: 56 GA: 122 QRS: 53 T: 29 INTERPRETIVE STATEMENTS: Normal sinus rhythm with sinus arrhythmia Nonspecific T wave abnormality Abnormal ECG Compared to ECG 06/16/2023 15:13:34 Sinus tachycardia no longer present T-wave abnormality still present Electronically Signed On 07-20-23 12:41:05 CDT by Jaciel Mathis
--- NOTE | 2023-07-20 12:44 | EKG ---
Test Date: 2023-07-19 Test Time: 08:06:14 Administration Vice President: PRESTON MEASUREMENT RESULTS: Intervals: Rate: 69 WI: 120 QRSD: 76 QT: 426 QTc: 456 Ronan: P: 61 WI: 120 QRS: 61 T: 52 INTERPRETIVE STATEMENTS: Normal sinus rhythm Normal ECG Compared to ECG 07/19/2023 05:31:01 Sinus arrhythmia no longer present T-wave abnormality no longer present Electronically Signed On 07-20-23 12:41:01 CDT by Jaciel Mathis
== END 2023-07-19 09:37 | disposition home or self-care (01) ==
LOC: ER 05:26
DX: R07.1 Chest pain on breathing (principal); S29.011A Strain of muscle and tendon of front wall of thorax, initial encounter; K21.00 Gastro-esophageal reflux disease with esophagitis, without bleeding; I10 Essential (primary) hypertension
CPT/HCPCS: 93005 ×2; 85025; 80048; 36415; 83735; 80076; 84484 ×2; 83880; 71275; 71045; 96375; 96374; 99285; Q9967; C9113; J1170; J2405 ×2

== ENCOUNTER 2023-09-10 11:29 | Inpatient (IN) | payer BC ==
[2023-09-10] MEDS ORDERED: ASPIRIN 325 MG TAB ONE (11:45)
[2023-09-10] MEDS ORDERED: METOPROLOL TARTRATE 5 MG/5 ML INJ IV ONE (11:45)
[2023-09-10] MEDS ORDERED: ONDANSETRON 4 MG/2 ML VIAL ONE (12:00)
[2023-09-10] MEDS ORDERED: MORPHINE 4 MG/ML SYR ONE (12:01)
[2023-09-10 12:03] LABS: Absolute Eosinophils 0.1 K/uL (0-0.5); Absolute Lymphocytes (CBC) 2.7 K/uL (0.7-4.9); Absolute Monocytes 0.8 K/uL (0.1-1.3); Absolute Neutrophil 5.9 K/uL (1.8-8.0); Basophils % 0.4 % (0-1.3); Hematocrit 40.9 % (36.0-45.0); Hemoglobin 13.8 g/dL (12.0-15.0); Lymphocytes % 28.6 % (15.3-44.8); MCH 29.9 pg (27.0-35.0); MCHC 33.7 g/dL (32.0-36.0); MCV 88.8 fL (80-100); MPV 9.4 fL (7.6-11.3); Monocytes % 8.1 % (3.3-12.3); Neutrophils % 61.9 % (41.7-73.7); Platelets 239 thou/uL (152-406); RBC Red Blood Cell Count 4.61 M/uL (3.86-4.86); Red Cell Distribution Width 13.7 % (12.1-15.2)
--- NOTE | 2023-09-10 12:22 | RAD REPORT ---
EXAM DESCRIPTION: RADChest Single View09/10/2023 12:15 pm CLINICAL HISTORY: CHEST PAIN COMPARISON: Chest Single View dated 07/19/2023; Chest Single View dated 06/16/2023; Chest Single View da alistair 04/26/2023; Chest Single View dated 02/19/2023 TECHNIQUE: Portable AP view of the chest. FINDINGS: The lungs are clear. No pneumothorax or effusion. The cardiomediastinal contours are unre markable. IMPRESSION: No acute cardiopulmonary process.
[2023-09-10 12:26] LABS: ALT/SGPT 40 U/L (13-56); Albumin 3.6 g/dL (3.4-5.0); Alkaline Phosphatase 103 U/L (45-117); Anion Gap 7.2 mEq/L (5.0-15.0); BUN Blood Urea Nitrogen 8 mg/dL (7-18); Bicarbonate 30 mEq/L (21-32); Bilirubin Total 0.2 mg/dL (0.2-1.0); Globulin 3.7 g/dL (2.3-3.5); Glomerular Filtration Rate 109 ml/min (=/>90); Glucose Level 87 mg/dL (74-106); Magnesium 2.1 mg/dL (1.6-2.4); NT PRO-BNP 25 pg/mL (<125); Potassium 3.2 mEq/L (3.5-5.1); Protein, Total 7.3 g/dL (6.4-8.2); Sodium Level 140 mEq/L (136-145)
[2023-09-10 12:36] LABS: AST/SGOT < 10 U/L (15-37); Bilirubin Direct < 0.2 mg/dL (0-0.2); Troponin High Sensitivity < 3.0 pg/mL (<58.9)
--- NOTE | 2023-09-10 12:49 | ER ---
Nurse's Notes [facility] Name: Yohana Perez Age: 42 yrs Sex: Female : 1980 Arrival Date: 09/10/2023 Time: 11:29 Bed 14 Private MD: Diagnosis: Chest pain, unspecified Presentation: 09/09 11:40 Chief complaint: Patient states: CP since . Pain when taking a deep breathe and ll1 some pain into jaw area. Had a stress test with [facility], has CT scan ordered 09/21. Coronavirus screen: Client denies travel out of the [place] in the last 14 days. At this time, the client does not indicate any symptoms associated with coronavirus-19. Ebola Screen: Patient denies travel to an Ebola-affected area in the 21 days before illness onset. Initial Sepsis Screen: Does the patient meet any 2 criteria? No. Patient's initial sepsis screen is negative. Does the patient have a suspected source of infection? No. Patient's initial sepsis screen is negative. Risk Assessment: Do you want to hurt yourself or someone else? Patient reports no desire to harm self or others. Onset of symptoms was September 03, 2023. 11:40 Method Of Arrival: Ambulatory ll1 11:40 Acuity: NICOLASA 3 ll1 Triage Assessment: 11:42 General: Appears uncomfortable, Behavior is cooperative, appropriate for age, anxious. ll1 Pain: Complains of pain in chest Pain currently is 8 out of 10 on a pain scale. Quality of pain is described as pressure, Pain began 1 week. Cardiovascular: Reports chest pain. Respiratory: Reports pain with respiration. Historical: - Allergies: 11:40 No Known Allergies; ll1 - PMHx: 11:40 Hypertensive disorder; heart attack due to trauma; GI Bleed; depressive disorder; ll1 Kidney stones; chronic back pain; Migraine; Anxiety; - PSHx: 11:40 section; Emergency laparotomy; ll1 - Immunization history:: Adult Immunizations up to date. - Infectious Disease History:: Denies. - Social history:: Smoking status: Reported history of juuling and/or vaping. Patient/guardian denies using tobacco. Screenin:33 [facility] ED Fall Risk Assessment (Adult) History of falling in the last 3 months, rs5 including since admission No falls in past 3 months (0 pts) Confusion or Disorientation No (0 pts) Intoxicated or Sedated No (0 pts) Impaired Gait No (0 pts) Mobility Assist Device Used No (0 pt) Altered Elimination No (0 pt) Score/Fall Risk Level 0 - 2 = Low Risk Oriented to surroundings, Maintained a safe environment. Abuse screen: Denies threats or abuse. Nutritional screening: No deficits noted. Tuberculosis screening: No symptoms or risk factors identified. Assessment: 11:33 General: Appears in no apparent distress. comfortable, Behavior is calm, cooperative. rs5 Pain: Complains of pain in chest Pain does not radiate. Pain currently is 8 out of 10 on a pain scale. Quality of pain is described as aching, Is continuous. Neuro: Level of Consciousness is awake, alert, obeys commands, Oriented to person, place, time, situation. Cardiovascular: Patient's skin is warm and dry. Rhythm is sinus tachycardia. Respiratory: Airway is patent Respiratory effort is even, unlabored, Respiratory pattern is regular, symmetrical. GI: Abdomen is round non-distended, Abd is soft and non tender X 4 quads. : No signs and/or symptoms were reported regarding the genitourinary system. EENT: No signs and/or symptoms were reported regarding the EENT system. 11:45 Reassessment: Provider of elevated pulse . rs5 12:21 Reassessment: Patient and/or family updated on plan of care and expected duration. Pain rs5 level reassessed. Patient is alert, oriented x 3, equal unlabored respirations, skin warm/dry/pink. Patient denies pain at this time. Patient states feeling better. 12:21 Cardiovascular: Denies chest pain, Rhythm is regular. rs5 13:35 Reassessment: Patient and/or family updated on plan of care and expected duration. Pain rs5 level reassessed. Patient is alert, oriented x 3, equal unlabored respirations, skin warm/dry/pink. 14:07 Reassessment: No changes from previously documented assessment. rs5 14:40 Reassessment: REPORT FAXED FOR 219. bp 15:20 Reassessment: no personnel available at this moment for transport, charge nurse rs5 notified. 15:27 Reassessment: No changes from previously documented assessment. rs5 Vital Signs: 11:40 BP 144 / 70; Pulse 93; Resp 17; Temp 97.8; Pulse Ox 100% on R/A; Weight 78.93 kg; ll1 Height 5 ft. 2 in. ; Pain 8/10; 11:43 BP 127 / 89; Pulse 130; Resp 18; Pulse Ox 99% on R/A; rs5 12:05 BP 121 / 77; Pulse 84; Resp 18; Pulse Ox 99% on R/A; rs5 12:23 BP 125 / 74; Pulse 77; Resp 18; Pulse Ox 99% on R/A; rs5 14:08 BP 126 / 76; Pulse 81; Resp 18; Pulse Ox 99% on R/A; rs5 11:40 Body Mass Index 31.82 (78.93 kg, 157.48 cm) ll1 11:40 Pain Scale: Adult ll1 ED Course: 11:32 Patient arrived in ED. mg5 11:32 Diego Cordova, FÁTIMA is Primary Nurse. rs5 11:33 Violeta Shin MD is Attending Physician. sp3 11:33 Arm band placed on Patient placed in an exam room, on a stretcher. ll1 11:33 Patient has correct armband on for positive identification. Placed in gown. Bed in low rs5 position. Call light in reach. Side rails up X2. Client placed on continuous cardiac and pulse oximetry monitoring. NIBP monitoring applied. electro mechanical designer on. 11:33 No provider procedures requiring assistance completed. rs5 11:42 Triage completed. ll1 12:16 XRAY Chest (1 view) In Process Unspecified. EDMS 12:49 Tip Ojeda MD is Hospitalizing Provider. sp3 13:15 CT Chest For PE Angio In Process Unspecified. EDMS 14:09 IV discontinued, intact, bleeding controlled, No redness/swelling at site. Pressure rs5 dressing applied. Administered Medications: 11:50 Drug: Metoprolol IVP 5 mg IVP once; Hold for SBP <100 or HR <60. Route: IVP; Site: rs5 right antecubital; 12:05 Follow up: Response: No adverse reaction rs5 11:50 Drug: Aspirin PO 325 mg PO once Route: PO; rs5 12:26 Follow up: Response: No adverse reaction rs5 12:00 Drug: morphine IVP or IV 4 mg IVP once over 4 mins Route: IVP; Infused Over: 4 mins; rs5 Site: right antecubital; 12:15 Follow up: Response: No adverse reaction; Pain is decreased rs5 12:00 Drug: Ondansetron IVP 4 mg IVP once; over 2 minutes Route: IVP; Site: right antecubital;rs5 12:15 Follow up: Response: No adverse reaction rs5 Medication: 12:25 VIS not applicable for this client. rs5 Outcome: 12:49 Decision to Hospitalize by Provider. sp3 14:08 Admitted to ER Hold. Please see [facility] for further documentation. rs5 14:08 Condition: stable 14:08 Condition: stable 14:08 Instructed on the need for admit, 15:28 Patient left the ED. rs5 Signatures: Dispatcher [employer] EDRolo Guillory RN RN bp Lewis, Lynsay, RN RN ll1 Violeta Shin MD MD sp3 Diego Cordova RN RN rs5 Kaleigh Munoz mg5 Corrections: (The following items were deleted from the chart) 12:22 12:21 Reassessment: Patient and/or family updated on plan of care and expected rs5 duration. Pain level reassessed. Patient is alert, oriented x 3, equal unlabored respirations, skin warm/dry/pink. Patient denies pain at this time. Patient states feeling better. rs5 12:26 12:25 Response: No adverse reaction rs5 rs5
--- NOTE | 2023-09-10 12:49 | EDPHYS ---
Physician Documentation [facility] Name: Yohana Perez Age: 42 yrs Sex: Female : 1980 Arrival Date: 09/10/2023 Time: 11:29 Bed 14 Private MD: ED Physician Violeta Shin HPI: 09/09 11:42 This 42 yrs old Female presents to ER via Unassigned with complaints of Chest Pain. sp3 11:42 42-year-old female with history of hypertension, prior GI bleed, depression, anxiety sp3 who presents to the ED with chief complaint chest pain since October 04. Patient states that Dr. Hickey performed a cardiac stress on her which she "failed". Her pain has been off and on since then and she has felt heart racing. She called the doctor's office today and allegedly the manager leasing told her to wait until her cardiac CT which is scheduled for September 21. She did not want to wait and presents here is the closest hospital for further evaluation. She denies any additional symptoms including syncope, near syncope, headache, weakness, focal neurological deficit, shortness of breath, back pain, abdominal pain, nausea, vomiting, diarrhea, rash, or any other signs or symptoms on ROS at this time.. Historical: - Allergies: 11:40 No Known Allergies; ll1 - PMHx: 11:40 Hypertensive disorder; heart attack due to trauma; GI Bleed; depressive disorder; ll1 Kidney stones; chronic back pain; Migraine; Anxiety; - PSHx: 11:40 section; Emergency laparotomy; ll1 - Immunization history:: Adult Immunizations up to date. - Infectious Disease History:: Denies. - Social history:: Smoking status: Reported history of juuling and/or vaping. Patient/guardian denies using tobacco. ROS: 11:44 Constitutional: Negative for fever, chills, and weight loss, Eyes: Negative for injury, sp3 pain, redness, and discharge, ENT: Negative for injury, pain, and discharge, Neck: Negative for injury, pain, and swelling, Respiratory: Negative for shortness of breath, cough, wheezing, and pleuritic chest pain, Abdomen/GI: Negative for abdominal pain, nausea, vomiting, diarrhea, and constipation, Back: Negative for injury and pain, MS/Extremity: Negative for injury and deformity, Skin: Negative for injury, rash, and discoloration, Neuro: Negative for headache, weakness, numbness, tingling, and seizure, Psych: Negative for depression, anxiety, suicide ideation, homicidal ideation, and hallucinations, Allergy/Immunology: Negative for hives, rash, and allergies, Endocrine: Negative for neck swelling, polydipsia, polyuria, polyphagia, and marked weight changes, Hematologic/Lymphatic: Negative for swollen nodes, abnormal bleeding, and unusual bruising, 11:44 All other systems are negative, Exam: 11:44 Constitutional: This is a well developed, well nourished patient who is awake, alert, sp3 and in no acute distress. Head/Face: Normocephalic, atraumatic. Eyes: Pupils equal round and reactive to light, extra-ocular motions intact. Lids and lashes normal. Conjunctiva and sclera are non-icteric and not injected. Cornea within normal limits. Periorbital areas with no swelling, redness, or edema. ENT: Nares patent. No nasal discharge, no septal abnormalities noted. External auditory canals are clear. Oropharynx with no redness, swelling, or masses, exudates, or evidence of obstruction, uvula midline. Mucous membranes moist. Neck: Trachea midline, no thyromegaly or masses palpated, and no cervical lymphadenopathy. Supple, full range of motion without nuchal rigidity, or vertebral point tenderness. No Meningismus. Chest/axilla: Normal chest wall appearance and motion. Nontender with no deformity. No lesions are appreciated. Respiratory: Lungs have equal breath sounds bilaterally, clear to auscultation and percussion. No rales, rhonchi or wheezes noted. No increased work of breathing, no retractions or nasal flaring. Abdomen/GI: Soft, non-tender, with normal bowel sounds. No distension or tympany. No guarding or rebound. No evidence of tenderness throughout. Back: No spinal tenderness. No costovertebral tenderness. Full range of motion. Skin: Warm, dry with normal turgor. Normal color with no rashes, no lesions, and no evidence of cellulitis. MS/ Extremity: Pulses equal, no cyanosis. Neurovascular intact. Full, normal range of motion. Neuro: Awake and alert, GCS 15, oriented to person, place, time, and situation. Cranial nerves II-XII grossly intact. Motor strength 5/5 in all extremities. Sensory grossly intact. Cerebellar exam normal. Normal gait. Psych: Awake, alert, with orientation to person, place and time. Behavior, mood, and affect are within normal limits. 11:44 Cardiovascular: Tachycardia in the 130s, 11:44 ECG was reviewed by the Attending Physician. EKG demonstrates sinus tachycardia at 130 bpm with normal intervals, normal QRS, normal axis, nonspecific diffuse ST's ST changes without evidence of acute ischemia. Vital Signs: 11:40 BP 144 / 70; Pulse 93; Resp 17; Temp 97.8; Pulse Ox 100% on R/A; Weight 78.93 kg; ll1 Height 5 ft. 2 in. ; Pain 8/10; 11:43 BP 127 / 89; Pulse 130; Resp 18; Pulse Ox 99% on R/A; rs5 12:05 BP 121 / 77; Pulse 84; Resp 18; Pulse Ox 99% on R/A; rs5 12:23 BP 125 / 74; Pulse 77; Resp 18; Pulse Ox 99% on R/A; rs5 14:08 BP 126 / 76; Pulse 81; Resp 18; Pulse Ox 99% on R/A; rs5 11:40 Body Mass Index 31.82 (78.93 kg, 157.48 cm) ll1 11:40 Pain Scale: Adult ll1 MDM: 11:35 Patient medically screened. sp3 11:45 Data reviewed: vital signs, nurses notes, old medical records, lab test result(s), EKG, sp3 radiologic studies. ED course: 42-year-old female with chest pain since cardiac stress test 4 days ago. Patient is also tachycardic. Differential diagnosis includes acute coronary syndrome, anxiety, other arrhythmia, electrolyte abnormality, among others. Clinically I am not highly suspicious for sepsis, shock, PE, pulmonary pathology, CHF, or any other critical process. Workup will include EKG, chest x-ray, laboratory values and we will treat with Lopressor to help control rate while monitoring blood pressure, and aspirin p.o. x 1. Disposition probable admission with further cardiac consultation.. 12:48 ED course: Initial troponin negative. Heart rate now in the 80s after Lopressor. Will sp3 add on CT scan of the chest PE protocol and UDS. Patient will be admitted to hospitalist service.. 09/09 11:42 Order name: Basic Metabolic Panel; Complete Time: 12:37 sp3 09/09 11:42 Order name: CBC with Diff; Complete Time: 12:28 sp3 09/09 11:42 Order name: LFT's; Complete Time: 12:37 sp3 09/09 11:42 Order name: Magnesium; Complete Time: 12:37 sp3 09/09 11:42 Order name: NT PRO-BNP; Complete Time: 12:37 sp3 09/09 11:42 Order name: PT-INR; Complete Time: 12:28 sp3 09/09 11:42 Order name: Troponin HS; Complete Time: 12:37 sp3 09/09 12:47 Order name: UDS sp3 09/09 14:20 Order name: T4 Free EDMS 09/09 14:20 Order name: Thyroid Stimulating Hormone EDMS 09/09 14:20 Order name: Basic Metabolic Panel EDMS 09/09 14:20 Order name: Basic Metabolic Panel EDMS 09/09 14:20 Order name: CBC with Automated Diff EDMS 09/09 14:20 Order name: CBC with Automated Diff EDMS 09/09 14:20 Order name: Hemoglobin A1c EDMS 09/09 14:20 Order name: Hemoglobin A1c EDMS 09/09 14:20 Order name: Lipid Profile EDMS 09/09 14:20 Order name: Lipid Profile EDMS 09/09 14:20 Order name: Troponin High Sensitivity EDMS 09/09 14:20 Order name: Troponin High Sensitivity EDMS 09/09 14:20 Order name: Troponin High Sensitivity EDMS 09/09 11:42 Order name: XRAY Chest (1 view); Complete Time: 12:28 sp3 09/09 12:47 Order name: CT Chest For PE Angio; Complete Time: 13:24 sp3 09/09 14:22 Order name: Echo with Doppler EDMS 09/09 14:22 Order name: Echo with Doppler EDMS 09/09 11:42 Order name: EKG; Complete Time: 11:42 sp3 09/09 11:42 Order name: Cardiac monitoring; Complete Time: 12:19 sp3 09/09 11:42 Order name: EKG - Nurse/Tech; Complete Time: 12:19 sp3 09/09 11:42 Order name: IV Saline Lock; Complete Time: 12:19 sp3 09/09 11:42 Order name: Labs collected and sent; Complete Time: 12:19 sp3 09/09 11:42 Order name: O2 Per Protocol; Complete Time: 12:19 sp3 09/09 11:42 Order name: O2 Sat Monitoring; Complete Time: 12:19 sp3 09/09 11:42 Order name: NPO; Complete Time: 11:43 sp3 Administered Medications: 11:50 Drug: Metoprolol IVP 5 mg IVP once; Hold for SBP <100 or HR <60. Route: IVP; Site: rs5 right antecubital; 12:05 Follow up: Response: No adverse reaction rs5 11:50 Drug: Aspirin PO 325 mg PO once Route: PO; rs5 12:26 Follow up: Response: No adverse reaction rs5 12:00 Drug: morphine IVP or IV 4 mg IVP once over 4 mins Route: IVP; Infused Over: 4 mins; rs5 Site: right antecubital; 12:15 Follow up: Response: No adverse reaction; Pain is decreased rs5 12:00 Drug: Ondansetron IVP 4 mg IVP once; over 2 minutes Route: IVP; Site: right antecubital;rs5 12:15 Follow up: Response: No adverse reaction rs5 Disposition Summary: 09/10/23 12:49 Hospitalization Ordered Notes: Hospitalization Status: Observation sp3 Provider: Tip Ojeda sp3 Location: Telemetry/MedSurg (observation) sp3 Condition: Stable sp3 Problem: an acute exacerbation sp3 Symptoms: have worsened sp3 Bed/Room Type: Standard sp3 Room Assignment: 219(09/10/23 14:33) bc6 Diagnosis - Chest pain, unspecified sp3 Forms: - Medication Reconciliation Form sp3 - SBAR form sp3 - Leadership Thank You Letter sp3 Signatures: Dispatcher [employer] EDFrancisca Burns RN RN ll1 Violeta Shin MD MD sp3 Diego Cordova RN RN rs5 Judie Silva bc6 Corrections: (The following items were deleted from the chart) 12:47 12:47 Chest For PE Angio+CT.RAD.BRZ ordered. EDMS EDMS 12:47 12:47 URINE DRUG SCREEN+UC.LAB.BRZ ordered. EDMS EDMS 14:33 12:49 sp3 bc6
--- NOTE | 2023-09-10 13:22 | RAD REPORT ---
EXAM DESCRIPTION: CT - Chest For Pe Angio - 09/10/2023 1:13 pm CLINICAL HISTORY: Chest pain. CHEST PAIN COMPARISON: <Comparisons> TECHNIQUE: CT angiogram of the pulmonary arteries was performed with MIP. All CT scans are performed using dose optimization technique as appropriate and may include automated exposure control or mA/KV adjustment according to patient size. FINDINGS: No evidence of pulmonary thromboembolism. No acute aortic finding demonstrated. Mild interstitial pulmonary edema is possible. No significant pericardial or pleural fluid. No concerning bony finding. IMPRESSION: No evidence of pulmonary thromboembolism. Mild possible interstitial pulmonary edema.
[2023-09-10] MEDS ORDERED: KETOROLAC 30 MG/ML INJ ONE (13:37)
--- NOTE | 2023-09-10 13:46 | P.HP ---
Certification for Inpatient Patient admitted to: Observation With expected LOS: <2 Midnights Patient will require the following post-hospital care: None Practitioner: I am a practitioner with admitting privileges, knowledge of patient current condition, hospital course, and medical plan of care. Services: Services provided to patient in accordance with Admission requirements found in Title 42 Section 412.3 of the Code of Federal Regulations Patient History Date of Service: 09/10/23 Reason for admission: Chest pain r/o [place] History of Present Illness: Yohana Perez is a 42-year-old female with past medical history of hypertension, heart attack due to trauma, GI bleed, kidney stones, chronic back pain, migraine, anxiety, GI bleed, depressive disorder who presents to the ED with chief complaint of chest pain. She reports having a history of tachycardia. She recently had a stress test with Dr. Jones, the stresses had and due to her tachycardia around 200. She states she has had chest pain and pressure since of last week. She contacted Dr. Jones's office and was instructed to get her chest CT scan which is scheduled for September. She decided to come to the ED today for further evaluation. On examination she is calm and cooperative, no anxiety noted no distress noted, lung sounds are clear, S1-S2 present, chest pain nonreproducible. Initial vital BP 144 / 70; Pulse 93; Resp 17; Temp 97.8; Pulse Ox 100% on R/A Laboratory evaluation troponin<3.0, potassium 3.2, otherwise unremarkable Chest x-ray reports "The lungs are clear. No pneumothorax or effusion. The cardiomediastinal contours are unremarkable. IMPRESSION: No acute cardiopulmonary process." CTA chest reports "No evidence of pulmonary thromboembolism. Mild possible interstitial pulmonary edema." Yohana will be admitted to hospitalist service for further evaluation and treatment, cardiology consulted Allergies No Known Drug Allergies Allergy (Verified 06/26/15 08:51) Unknown Home Medications: Aspirin [Aspirin EC] 81 mg PO DAILY #30 tab 04/27/23 Atorvastatin Calcium [Lipitor] 40 mg PO BEDTIME #30 tab 04/27/23 Duloxetine HCl [Cymbalta] 60 mg PO BID 04/27/23 Hydrocodone 5/APAP 325 [[place] 5/325] 1 tab PO Q6H PRN #12 tab 04/27/23 Zolpidem Tartrate [Ambien*] 10 mg PO BEDTIME 04/27/23 - Past Medical/Surgical History Diabetic: No -: migraine -: HTN -: [place]- 2003 -: DISC HERNIATION L5 S1 -: AFIB -: MYTRAL VALVE PROLAPSE -: GIB -: RLS -: depression/anxiety -: kidney stone -: x 3 -: exlap secondary to ce section - Family History Father -: Heart disease, Diabetes, Cancer Notes: . recently Mother -: Cancer Notes: ovarian - Social History Alcohol use: Yes CD- Drugs: No Caffeine use: Yes Review of Systems Cardiovascular: Chest Pain (and pressure) Physical Examination - Physical Exam General: Alert, In no apparent distress, Oriented x3 HEENT: Atraumatic, Normocephalic, PERRLA Neck: Supple, 2+ carotid pulse no bruit, JVD not distended Respiratory: Clear to auscultation bilaterally, Normal air movement Cardiovascular: No edema, Normal pulses, Regular rate/rhythm, Normal S1 S2 Capillary refill: <2 Seconds Gastrointestinal: Normal bowel sounds, Soft and benign, No tenderness Musculoskeletal: No swelling Integumentary: No rashes Neurological: Normal speech, Normal tone - Studies Laboratory Data (last 24 hrs) 09/10/23 09/10/23 09/10/23 11:50 11:50 11:50 WBC 9.60 Hgb 13.8 Hct 40.9 Plt Count 239 PT 11.0 INR 1.00 Sodium 140 Potassium 3.2 L BUN 8 Creatinine 0.71 Glucose 87 Magnesium 2.1 Total Bilirubin 0.2 AST < 10 L ALT 40 Alkaline Phosphatase 103 Assessment and Plan - Plan Assessment and plan Chest pain rule out [place] History of [place] due to trauma -Chest x-ray reports "The lungs are clear. No pneumothorax or effusion. The cardiomediastinal contours are unremarkable. IMPRESSION: No acute cardiopulmonary process." -CTA chest reports "No evidence of pulmonary thromboembolism. Mild possible interstitial pulmonary edema." -EKG sinus tachycardia -Troponin<3.0, serial pending -Ordered transthoracic echocardiogram - Consult Cardiology - recommendations appreciated - S/P aspirin 324 mg PO x 1 in ED - aspirin and statin daily - Symptom control with PRN acetaminophen, nitroglycerin, morphine -continuous telemetry -TSH/Free T4, A1c, Lipid panel -continue bisoprolol History of hypertension History of depressive disorder History of anxiety History of migraine History of chronic back pain History of GI bleed -Supportive care -Continue home medications DVT PPx SCD Full code LOS 24 hours Discharge Plan: Home Plan to discharge in: 24 Hours - Advance Directives Does patient have a Living Will: No Does patient have a Durable POA for Healthcare: No
[2023-09-10] MEDS ORDERED: ONDANSETRON 4 MG/2 ML VIAL IV PRN (14:14)
[2023-09-10] MEDS ORDERED: HEPA 1000U/500MLS 2,000 UNIT/1,000 ML BAG IV ONE (15:57)
[2023-09-10] MEDS ORDERED: HEPARIN 5000 UNIT/ML 1 ML VIAL ONE (15:58)
[2023-09-10] MEDS ORDERED: MIDAZOLAM HCL 2 MG/2 ML INJ ONE (15:58)
[2023-09-10] MEDS ORDERED: LIDOCAINE 1% 20 ML MDV ONE (15:58)
[2023-09-10] MEDS ORDERED: VERAPAMIL HCL 10 MG/4 ML VIAL IV ONE (15:58)
[2023-09-10] MEDS ORDERED: CLOPIDOGREL 75 MG TABLET ONE (15:58)
[2023-09-10] MEDS ORDERED: TICAGRELOR 90 MG TABLET PO ONE (15:58)
[2023-09-10] MEDS ORDERED: FENTANYL CITR 100 MCG/2 ML ONE (15:58)
[2023-09-10] MEDS ORDERED: HEPARIN 10,000 UNIT/10 ML VIAL IV ONE (15:58)
[2023-09-10] MEDS: NA CHLORIDE 0.9% 500 ML ONE (15:59)
[2023-09-10] MEDS ORDERED: NITROGLYCERIN 0.4 MG/TAB SL ONE (17:15)
--- NOTE | 2023-09-10 17:37 | CON ---
Date of Consultation: 09/10/2023 Reason For Consultation: Chest pain. History Of Present Illness: 42-year-old female, history of hypertension, history of GI bleed in the past, kidney stones, chronic back pain. Apparently, she has seen a grinding machine operator portable elsewhere and had a stress test last week and it was abnormal and they told her that they just needed to do a cardiac CT angiogram, which is scheduled for September. However, she has been having chest pain, pressure like, retr osternal, radiates to the neck and the jaw, minimal activities, and even at rest and it is becoming m ore progressive, so she presented to the emergency room. Currently, she is having active chest pain. Past Medical History: As outlined above in the HPI. Medications: Refer to reconciliation sheet for detailed list. Allergies: NO KNOWN DRUG ALLERGIES. Family History: No premature coronary artery disease or cancer. Social History: She does not smoke or drink. Does not use any drugs. Review of Systems: All systems reviewed and they were negative except as mentioned in the HPI. Physical Examination: Vital Signs: Reviewed. Head and Neck: Pupils are equal, reactive to light. Intact eye movements. No JVD. No cervical lym phadenopathy. Neck is supple. Thyroid is not enlarged. Lungs: Clear to auscultation bilaterally. No rhonchi, wheezing, or crackles. No accessory muscle u se. Heart: Regular rate and rhythm. No extra sounds. Abdomen: Soft, nontender. Bowel sounds positive. No organomegaly. No masses or hernia. No rigidi ty or rebound. Extremities: No edema, clubbing, or cyanosis. Intact pulses. Skin: No rash. No nodule. Neurologic: Alert, awake, oriented x3. No acute focal deficits appreciated. Lymph Nodes: No cervical or axillary lymphadenopathy. Investigations: BUN 8, creatinine 0.7. Troponin is negative and hemoglobin is 13.8. Assessment And Recommendations: 1.Chest pain, very typical symptoms with abnormal stress test reported, I do not have any records an d CT angiogram of the lungs showed mild pulmonary edema, highly suggestive of unstable angina and keny n though her troponin is negative and she is having active chest pain on and off, at this point, I wi ll take her emergently to the cardiac catheterization laboratory, obtain a coronary angiogram and anna n accordingly. 2.Mild pulmonary edema. Obtain an echo and gentle diuresis with Lasix 20 mg daily and further plan according to the echocardiogram. 3.Dyslipidemia. Continue Lipitor, and further recommendation post coronary angiogram. SR/MODL Voice ID: [id number] Report ID: [id number]
[2023-09-10] MEDS: NITROGLYCERIN 0.4 MG/TAB SL PRN (19:05)
[2023-09-10] MEDS: IPRATROPIUM BROM 0.5MG/2.5ML NEB SCH (20:01)
[2023-09-10] MEDS: LEVALBUTEROL 1.25 MG/3 ML NEB ONE (20:02)
[2023-09-10] MEDS: LEVALBUTEROL 1.25 MG/3 ML NEB NEB SCH (20:04)
[2023-09-10] MEDS: DULERA 200/5 (MOMETASONE/FORMOTEROL) INHALER IH SCH (20:34)
[2023-09-10] MEDS: MORPHINE 4 MG/ML SYR IV PRN (20:35)
[2023-09-10] MEDS: ATORVASTATIN 40 MG TAB PO SCH (20:36)
[2023-09-10] MEDS: predniSONE 20 MG TAB PO SCH (20:38)
[2023-09-10] MEDS ORDERED: predniSONE 20 MG TAB PO SCH (21:00)
[2023-09-10] MEDS ORDERED: ATORVASTATIN 40 MG TAB PO SCH (21:00)
[2023-09-10 21:18] LABS: Thyroid Stimulating Hormone 0.309 uIU/mL (0.358-3.740)
[2023-09-10] MEDS: MIRTAZAPINE 15 MG TAB PO SCH (23:27)
[2023-09-10] MEDS: ACETAMINOPHEN 500 MG TAB PO PRN (23:27)
[2023-09-10] MEDS: ZOLPIDEM TARTRATE 10 MG TABLET PO SCH (23:27)
[2023-09-11] MEDS: ALBUTEROL 2.5 MG/3 ML NEB SOL NEB SCH (01:13)
[2023-09-11 02:49] VITALS: BMI 31.8
--- NOTE | 2023-09-11 03:49 | OP ---
Date of Procedure: 09/10/2023 Surgeon: CANDACE BISWAS Procedure Performed: 1.Selective coronary angiogram. 2.Left heart catheterization. 3.IVUS of proximal left circumflex, which turned out to be significant spasm. Indication: Unstable angina. Access: Right femoral artery 6-Micronesian closed with StarClose. Complications: None. Bleeding: Less than 50 mL. Anesthesia: Total sedation time was 1 hour, used fentanyl and Versed. Description Of Procedure: After risks, benefits, alternatives were explained, the patient agreed to procedure and signed informed consent. The patient was brought into the cardiac catheterization [facility] [place] prepped and draped in a usual sterile fashion. Then, I accessed the right common femoral art erasto using micropuncture kit, ultrasound guidance, and fluoroscopy. We placed a 6-Micronesian [place] she ath and took 6-Micronesian JL4 catheter into the aortic root over a J-wire, engaged left main and took sta ndard views and then exchanged for a 6-Micronesian JR4 catheter, engaged the RCA, took standard views and catheter was pushed over the wire into the LV. Measured the LVEDP. Pullback did not record any grad ient and then gave systemic heparin to assure HCT level above 250 throughout the procedure and took E BU 3.5 into the aortic root over a J-wire, engaged the left main and then took a run-through wire int o the circ and did IVUS, and there was no disease. It was significant spasm of the proximal circ and initially the LAD also was selectively engaged using a JL4 catheter because of a short left main and that caused spasm also of the LAD, but resolved later on. I then removed the catheter and the sheat h, and StarClose was used for closure with good hemostasis. Findings: 1.Left main: Very short and small. No significant disease. 2.LAD: No significant disease, moderate-sized with significant spasm to the proximal segment, resol bhakti afterwards. 3.Left circumflex: [id number] size with proximal haziness and appeared to be significant dis ease, however, was not there at the initial diagnostic part, so it was felt to be spasm, so an IVUS w as done and there was no disease. 4.Right coronary artery: Small size vessel and normal. 5.Elevated LVEDP at 50 mmHg. Conclusion: 1.Significant coronary artery spasm. I did not see any significant disease by IVUS. 2.Elevated LVEDP. Recommendation: Coronary artery vasodilators including nitrates and beta-elgin, and if she continu es to be symptomatic with that, I would further reinvestigate her coronary arteries. SR/MODL Voice ID: [id number] Report ID: [id number]
[2023-09-11] MEDS: HYDROCODONE/APAP 5/325 MG TAB PO PRN (05:10)
[2023-09-11 07:09] LABS: Absolute Eosinophils 0.1 K/uL (0-0.5); Absolute Lymphocytes (CBC) 1.9 K/uL (0.7-4.9); Absolute Monocytes 0.6 K/uL (0.1-1.3); Basophils % 0.4 % (0-1.3); Eosinophils % 1.3 % (0-4.4); Hematocrit 32.8 % (36.0-45.0); Hemoglobin 11.2 g/dL (12.0-15.0); Lymphocytes % 25.1 % (15.3-44.8); MCH 30.3 pg (27.0-35.0); MCHC 34.1 g/dL (32.0-36.0); MCV 88.9 fL (80-100); MPV 9.4 fL (7.6-11.3); Monocytes % 8.1 % (3.3-12.3); Neutrophils % 65.1 % (41.7-73.7); Nucleated Red Blood Cells % 0.1 % (0-0); Platelets 185 thou/uL (152-406); Red Cell Distribution Width 13.4 % (12.1-15.2)
[2023-09-11 07:28] LABS: Anion Gap 4.5 mEq/L (5.0-15.0); Potassium 3.5 mEq/L (3.5-5.1)
[2023-09-11] MEDS ORDERED: METOPROLOL XL 25 MG TAB PO SCH ×2 (09:00→12:00)
[2023-09-11] MEDS ORDERED: ASPIRIN EC 81 MG TAB PO SCH (09:00)
[2023-09-11] MEDS: DULOXETINE 30 MG CAP PO SCH (09:04)
[2023-09-11] MEDS: lamoTRIgine 100 MG TAB PO SCH (09:04)
[2023-09-11] MEDS: ASPIRIN EC 81 MG TAB PO SCH (09:05)
[2023-09-11] MEDS: FUROSEMIDE 20 MG/ 2ML VIAL IV SCH (09:05)
[2023-09-11] MEDS: ISOSORBIDE MONO SR 30 MG TAB PO SCH ×2 (10:14→12:45)
[2023-09-11] MEDS: METOPROLOL TAR 25 MG TAB PO SCH (13:19)
[2023-09-11] MEDS: POTASSIUM CL SA 10 MEQ TAB PO SCH (15:10)
--- NOTE | 2023-09-11 16:48 | P.PN ---
Date of Service: 09/11/23 Subjective Awake and feeling better Tolerated heart No new complaints ROS 10 point ROS as noted above, otherwise negative Physical Exam General: AAOx3, NAD, comfortable HEENT: Atraumatic, Normocephalic, PERRLA Neck: Supple, 2+ carotid pulse no bruit, JVD not distended Respiratory: Clear to auscultation bilaterally, Normal air movement Cardiovascular: No edema, Normal pulses, RRR, Normal S1 S2 Capillary refill: <2 Seconds Gastrointestinal: Normal bowel sounds, Soft and benign on palpation, No tenderness Musculoskeletal: No swelling Integumentary: No rashes Neurological: Normal speech, Normal tone Vitals Reviewed Problem list Chest pain rule out [place] History of AK due to trauma Coronary spasm History of hypertension History of depressive disorder History of anxiety History of migraine History of chronic back pain History of GI bleed Assessment and Plan Chest pain rule out AK History of AK due to trauma -Chest x-ray reports "The lungs are clear. No pneumothorax or effusion. The cardiomediastinal contours are unremarkable. IMPRESSION: No acute cardiopulmonary process." -CTA chest reports "No evidence of pulmonary thromboembolism. Mild possible interstitial pulmonary edema." -EKG sinus tachycardia -Troponin<3.0, 87.7, 377.0 -transthoracic echocardiogram- results pending - Consult Cardiology - Repeat heart cath on Thursday, Heart cath showing coronary spasms - S/P aspirin 324 mg PO x 1 in ED - aspirin, statin, Imdur, metoprolol daily - Symptom control with PRN acetaminophen, nitroglycerin, morphine -continuous telemetry -TSH/Free T4, A1c, Lipid panel History of hypertension History of depressive disorder History of anxiety History of migraine History of chronic back pain History of GI bleed -Supportive care -Continue home medications DVT PPx Lovenox Full code LOS 24 hours
--- NOTE | 2023-09-11 16:53 | EKG ---
Test Date: 2023-09-10 Test Time: 11:37:31 Student Liaison Officer: JERICHO MEASUREMENT RESULTS: Intervals: Rate: 127 MO: 128 QRSD: 76 QT: 300 QTc: 436 [place]: P: 63 MO: 128 QRS: 60 T: 267 INTERPRETIVE STATEMENTS: Sinus tachycardia ST & T wave abnormality, consider inferior ischemia ST & T wave abnormality, consider anterolateral ischemia Abnormal ECG Compared to ECG 07/19/2023 08:06:14 ST (T wave) deviation now present Possible ischemia now present Sinus rhythm no longer present Electronically Signed On 09-11-23 16:49:08 CDT by Jaciel Mathis
[2023-09-11] MEDS: ENOXAPARIN 40 MG/0.4 ML SQ SCH (17:02)
[2023-09-11] MEDS: ALPRAZOLAM 0.5 MG TABLET PO PRN (18:33)
--- NOTE | 2023-09-11 20:28 | PN ---
Date of Progress Note: 09/11/2023 Subjective: Seen by bedside. Continues to have chest pain on and off. Imdur was not started by the time when I saw her. Review of Systems: Very anxious person with significant anxiety and panic attacks as well as chest pain on and off. No nausea, vomiting, diarrhea. No abdominal pain. No dysuria, polyuria, or urinary urgency. All other systems reviewed, they are negative. Physical Examination: Vital Signs: Reviewed. Head and Neck: Pupils are equal, reactive to light. Intact eye movements. No JVD. No cervical lym phadenopathy. Neck supple. Thyroid is not enlarged. Lungs: Clear to auscultation bilaterally. No rhonchi, wheezing, or crackles. No accessory muscle u se. Heart: Regular rate and rhythm. No extra sounds. Abdomen: Soft, nontender. Bowel sounds positive. No organomegaly or cyanosis. Extremities: No edema, clubbing, cyanosis. Intact pulses. Skin: No rashes. No nodule. NEURO: Alert, awake, oriented x3. No acute focal deficits appreciated. Lymph Nodes: No cervical or axillary lymphadenopathy. Investigations: Troponin was 377 this morning. Assessment/recommendations: 1.Elevated troponin with chest pain. It appears to be coronary artery spasm, however it can be a co ronary artery disease, could not tell very well yesterday as at the time the catheter touches her art eries, they end up performing a significant spasm. Plan would be, continue aspirin and start her on Imdur 30 mg daily and also beta-elgin with metoprolol 25 mg twice a day and keep her through the we ekend. If she continues to be symptomatic, we will plan for repeat coronary angiogram. 2.Congestive heart failure. Obtain an echo and plan accordingly. 3.Dyslipidemia. Continue statin. SR/MODL Voice ID: [id number] Report ID: [id number]
[2023-09-11] MEDS ORDERED: ZOLPIDEM TARTRATE 10 MG TABLET PO SCH ×2 (21:00→23:10)
[2023-09-11] MEDS ORDERED: MIRTAZAPINE 15 MG TAB PO SCH (21:00)
[2023-09-11] MEDS ORDERED: MIRTAZAPINE 15 MG TAB PO ONE (22:44)
[2023-09-12 07:23] LABS: Anion Gap 8.8 mEq/L (5.0-15.0); Potassium 3.8 mEq/L (3.5-5.1)
--- NOTE | 2023-09-12 07:37 | P.PN ---
Date of Service: 09/12/23 Subjective Hematoma noted to right groin area, patient states that has increased overnight, holding Lovenox and Sinus tachycardia overnight Imdur started yesterday 09/10 ROS 10 point ROS as noted above, otherwise negative Physical Exam General: Alert and oriented x3, NAD, comfortable HEENT: Atraumatic, Normocephalic, PERRLA Neck: Supple, 2+ carotid pulse no bruit, JVD not distended Respiratory: Clear to auscultation bilaterally, Normal air movement Cardiovascular: sinus tachycardia, Normal S1 S2 present Capillary refill: <2 Seconds Gastrointestinal: Normal bowel sounds, Soft and benign on palpation, No tenderness Musculoskeletal: Swelling hematoma to right groin and upper thigh Integumentary: No rashes Neurological: Normal speech, Normal tone Vitals Reviewed Problem list Chest pain rule out UT History of UT due to trauma Coronary spasm History of hypertension History of depressive disorder History of anxiety History of migraine History of chronic back pain History of GI bleed Assessment and Plan Chest pain rule out UT History of UT due to trauma Status post left heart cath with hematoma to right groin -Chest x-ray reports "The lungs are clear. No pneumothorax or effusion. The cardiomediastinal contours are unremarkable. IMPRESSION: No acute cardiopulmonary process." -CTA chest reports "No evidence of pulmonary thromboembolism. Mild possible interstitial pulmonary edema." -EKG sinus tachycardia -Troponin<3.0, 87.7, 377.0 -transthoracic echocardiogram- results pending -Consult Cardiology - Repeat heart cath on Thursday, Heart cath showing coronary spasms -S/P aspirin 324 mg PO x 1 in ED -aspirin, statin, Imdur, metoprolol daily -Symptom control with PRN acetaminophen, nitroglycerin, morphine -continuous telemetry -TSH/Free T4 0.309/0.97, A1c 4.9, Lipid: triglycerides 145, cholesterol 164, LDL 101, HDL 34 History of hypertension History of depressive disorder History of anxiety History of migraine History of chronic back pain History of GI bleed -Supportive care -Continue home medications DVT PPx Lovenox hold d/t right groin hematoma Full code LOS 2-3 days
--- NOTE | 2023-09-12 07:46 | RAD REPORT ---
EXAM DESCRIPTION: US - Lower Extremity Artery Uni Ltd - 09/12/2023 7:35 am CLINICAL HISTORY: Right Groin Access swelling COMPARISON: No comparisons FINDINGS: Color Doppler, grayscale, and spectral analysis was performed. Hematoma present in the right groin measuring 4.3 cm in long axis. No connection to the femoral arter y to indicate the presence of a pseudoaneurysm. The greater saphenous vein is in close approximation but no evidence of active venous bleeding into the hematoma. Triphasic waveform is present in the common femoral artery, femoral artery, popliteal artery, and pos terior tibial artery. Biphasic flow is present in the dorsalis pedis artery. Waveforms and velocities are within normal limits. IMPRESSION: 1. Right groin hematoma without evidence of arterial pseudoaneurysm. The greater sapheno us vein does run just below the hematoma but no evidence of active bleeding. 2. Multiphasic waveforms in the right lower extremity without evidence of a flow limiting arterial st enosis .
[2023-09-12] MEDS: POTASSIUM CL SA 10 MEQ TAB PO ONE (08:05)
[2023-09-12] MEDS ORDERED: CLOPIDOGREL 75 MG TABLET PO SCH (09:00)
[2023-09-12 09:32] LABS: Absolute Lymphocytes (CBC) 1.2 K/uL (0.7-4.9); Absolute Monocytes 0.3 K/uL (0.1-1.3); Basophils % 0.2 % (0-1.3); Hematocrit 31.5 % (36.0-45.0); Hemoglobin 10.3 g/dL (12.0-15.0); MCH 29.4 pg (27.0-35.0); MCHC 32.7 g/dL (32.0-36.0); MCV 89.9 fL (80-100); MPV 10.6 fL (7.6-11.3); Monocytes % 3.5 % (3.3-12.3); Neutrophils % 83.3 % (41.7-73.7); Platelets 185 thou/uL (152-406); RBC Red Blood Cell Count 3.51 M/uL (3.86-4.86); Red Cell Distribution Width 13.5 % (12.1-15.2)
[2023-09-12 14:43] LABS: Absolute Lymphocytes (CBC) 1.2 K/uL (0.7-4.9); Absolute Monocytes 0.5 K/uL (0.1-1.3); Absolute Neutrophil 9.6 K/uL (1.8-8.0); Basophils % 0.2 % (0-1.3); Hematocrit 31.8 % (36.0-45.0); Hemoglobin 10.5 g/dL (12.0-15.0); Lymphocytes % 10.3 % (15.3-44.8); MCH 29.4 pg (27.0-35.0); MCHC 33.1 g/dL (32.0-36.0); MCV 88.8 fL (80-100); MPV 9.7 fL (7.6-11.3); Monocytes % 4.5 % (3.3-12.3); Platelets 199 thou/uL (152-406); RBC Red Blood Cell Count 3.58 M/uL (3.86-4.86); Red Cell Distribution Width 13.5 % (12.1-15.2)
[2023-09-12 15:09] LABS: Barbiturates NEGATIVE (NEGATIVE); Benzodiazepines POSITIVE (NEGATIVE); Cocaine NEGATIVE (NEGATIVE); METHAMPHETAM NEGATIVE (NEGATIVE); Methadone NEGATIVE (NEGATIVE); Opiates POSITIVE (NEGATIVE); Phencyclidine NEGATIVE (NEGATIVE); THC Cannibis NEGATIVE (NEGATIVE)
--- NOTE | 2023-09-12 16:01 | PN ---
Date of Progress Note: 09/12/2023 Subjective: Seen by bedside. Doing clinically well, just having some chest pain. Still with minima l activities as per her report. Review of Systems: Positive for chest pain. No nausea, vomiting, diarrhea. No abdominal pain. No dysuria, polyuria, o r urgency. All other systems reviewed are negative. Objective: Vital Signs: Reviewed. Head and Neck: Pupils are equal, reactive to light. Intact eye movements. No JVD. No cervical lym phadenopathy. Neck: Supple. Thyroid is not enlarged. Lungs: Clear to auscultation bilaterally. No rhonchi, rales, or crackles. No accessory muscle use. Heart: Regular rate and rhythm. No extra sounds. Abdomen: Soft, nontender. Bowel sounds positive. No organomegaly. No masses or hernia. No rigidi ty or rebound. Extremities: No edema, clubbing, cyanosis. Intact pulses Skin: No rash. Neurologic: Alert, awake, oriented x3. No acute focal deficits appreciated. Investigations: Troponins 66 down from 377. BUN is 9, creatinine 0.82, and hemoglobin 10.3. Assessment/recommendations: 1.Kqk-XM-ubyjbyzsk myocardial infarction. Coronary angiogram was not very clear that she has diseas e. She does have narrowing of her multiple arteries, but it appeared to be spasm to the catheter jamar angélica them. Continue Imdur for now and add metoprolol 25 mg twice a day. Baby aspirin to be continu ed and we will plan for repeat coronary angiogram on Thursday. 2.Groin hematoma, small. We will monitor her H and H, repeated later today. 3.Dyslipidemia. Continue Lipitor. 4.Severe anxiety disorder. Continue current management and I would recommend that she will see a ps ychiatrist as an outpatient. SR/MODL Voice ID: [id number] Report ID: [id number]
[2023-09-12] MEDS: METOPROLOL TAR 25 MG TAB PO SCH (17:52)
[2023-09-12] MEDS: HYDROCODONE/APAP 7.5/325 MG TAB PO PRN (20:40)
[2023-09-13 07:02] LABS: Hematocrit 30.4 % (36.0-45.0); Hemoglobin 10.2 g/dL (12.0-15.0); MCH 30.1 pg (27.0-35.0); MCHC 33.5 g/dL (32.0-36.0); MCV 89.9 fL (80-100); MPV 9.7 fL (7.6-11.3); Platelets 185 thou/uL (152-406); RBC Red Blood Cell Count 3.38 M/uL (3.86-4.86); Red Cell Distribution Width 13.4 % (12.1-15.2)
--- NOTE | 2023-09-13 11:16 | P.PN ---
Date of Service: 09/13/23 Subjective Feeling better No acute events overnight ROS 10 point ROS as noted above, otherwise negative Physical Exam General: Alert and oriented x3, NAD, comfortable HEENT: Atraumatic, Normocephalic, PERRLA Neck: Supple, 2+ carotid pulse no bruit, JVD not distended Respiratory: Clear to auscultation bilaterally, Normal air movement Cardiovascular: sinus tachycardia, Normal S1 S2 present Capillary refill: <2 Seconds Gastrointestinal: Normal bowel sounds, Soft and benign on palpation, No tenderness Musculoskeletal: Swelling, hematoma to right groin and upper thigh Integumentary: No rashes Neurological: Normal speech, Normal tone Vitals Reviewed Problem list Chest pain rule out NV History of NV due to trauma Coronary spasm History of hypertension History of depressive disorder History of anxiety History of migraine History of chronic back pain History of GI bleed Plan Chest pain rule out NV History of NV due to trauma Status post left heart cath with hematoma to right groin -Chest x-ray reports "The lungs are clear. No pneumothorax or effusion. The cardiomediastinal contours are unremarkable. IMPRESSION: No acute cardiopulmonary process." -CTA chest reports "No evidence of pulmonary thromboembolism. Mild possible interstitial pulmonary edema." -Troponin<3.0, 87.7, 377.0, 66.0 -transthoracic echocardiogram- results pending -Consult Cardiology - Repeat heart cath on Thursday, Heart cath showing coronary spasms -aspirin, statin, Imdur, metoprolol daily -continuous telemetry History of hypertension History of depressive disorder History of anxiety History of migraine History of chronic back pain History of GI bleed -Supportive care -Home meds continued DVT PPx Lovenox hold d/t right groin hematoma Full code LOS 2-3 days
[2023-09-13 13:06] LABS: Magnesium 2.3 mg/dL (1.6-2.4); Phosphorus 3.3 mg/dL (2.5-4.9); Potassium 3.8 mEq/L (3.5-5.1)
[2023-09-13] MEDS: POTASSIUM 25 MEQ EFFERV TAB PO ONE (14:22)
--- NOTE | 2023-09-14 07:58 | ECHO ---
HEIGHT: 5 ft 2 in WEIGHT: 174 lb 0 oz DATE OF STUDY: 09/11/[address]: Elham Linares NP 2-DIMENSIONAL: YES M.MODE: YES DOPPLER: YES COLOR FLOW: YES TDS: PORTABLE: YES DEFINITY: BUBBLE STUDY: DIAGNOSIS: CHEST PAIN/ TACHYCARDIA CARDIAC HISTORY: CATHERIZATION: YES SURGERY: PROSTHETIC VALVE: PACEMAKER: MEASUREMENTS (cm) DIASTOLIC (NORMALS) SYSTOLIC (NORMALS) IVSd 1.0 (0.6-1.2) LA Diam 3.0 (1.9-4.0) LVEF 67% LVIDd 3.8 (3.5-5.7) LVIDs 2.4 (2.0-3.5) %FS 36% LVPWd 0.8 (0.6-1.2) Ao Diam 2.9 (2.0-3.7) 2 DIMENSIONAL ASSESSMENT: RIGHT ATRIUM: NORMAL LEFT ATRIUM: NORMAL RIGHT VENTRICLE: NORMAL LEFT VENTRICLE: NORMAL TRICUSPID VALVE: NORMAL MITRAL VALVE: NORMAL PULMONIC VALVE: MILD PULMONIC INSUFFICIENCY AORTIC VALVE: NORMAL PERICARDIAL EFFUSION: NONE AORTIC ROOT: NORMAL LEFT VENTRICULAR WALL MOTION: NORMAL DOPPLER/COLOR FLOW: NORMAL COMMENTS: 1. NORMAL LEFT VENTRICULAR EJECTION FRACTION 60-65% 2. NORMAL WALL MOTION 3. NORMAL DIASTOLIC FUNCTION 4. MILD PULMONIC INSUFFICIENCY TECHNOLOGIST: AZEEM SILVA
[2023-09-14 09:49] LABS: Magnesium 2.3 mg/dL (1.6-2.4); Phosphorus 3.5 mg/dL (2.5-4.9); Potassium 3.7 mEq/L (3.5-5.1)
[2023-09-14] MEDS: NA CHLORIDE 0.9% 500 ML ONE (12:59)
[2023-09-14] MEDS ORDERED: FENTANYL CITR 100 MCG/2 ML ONE (13:23)
[2023-09-14] MEDS ORDERED: HEPA 1000U/500MLS 2,000 UNIT/1,000 ML BAG IV ONE (13:23)
[2023-09-14] MEDS ORDERED: MIDAZOLAM HCL 2 MG/2 ML INJ ONE (13:23)
[2023-09-14] MEDS ORDERED: HEPARIN 5000 UNIT/ML 1 ML VIAL ONE (13:24)
[2023-09-14] MEDS ORDERED: ATROPINE SULF 1 MG/10 ML SYR IV ONE (13:24)
[2023-09-14] MEDS ORDERED: TICAGRELOR 90 MG TABLET PO ONE (13:24)
[2023-09-14] MEDS ORDERED: HEPARIN 10,000 UNIT/10 ML VIAL IV ONE (13:24)
[2023-09-14] MEDS ORDERED: CLOPIDOGREL 75 MG TABLET ONE (13:25)
[2023-09-14] MEDS ORDERED: ASPIRIN 325 MG TAB ONE (13:25)
[2023-09-14] MEDS ORDERED: LIDOCAINE 1% 20 ML MDV ONE (13:29)
--- NOTE | 2023-09-14 14:05 | EKG ---
Test Date: 2023-09-14 Test Time: 10:39:39 Gas Cutter: CHAD MEASUREMENT RESULTS: Intervals: Rate: 90 [place]: 122 QRSD: 74 QT: 352 QTc: 430 [place]: P: 63 [place]: 122 QRS: 57 T: 59 INTERPRETIVE STATEMENTS: Normal sinus rhythm Normal ECG Compared to ECG 09/13/2023 18:51:04 No significant changes Electronically Signed On 09-14-23 14:04:18 CDT by Jaciel Mathis
[2023-09-14] MEDS ORDERED: NALOXONE 0.4 MG/ML VIAL ONE (14:06)
[2023-09-14] MEDS ORDERED: FLUMAZENIL 0.1 MG/ML (5 mL VIAL) IV ONE (14:06)
--- NOTE | 2023-09-14 14:07 | EKG ---
Test Date: 2023-09-13 Test Time: 18:51:04 Etl Application Developer: JOSE MEASUREMENT RESULTS: Intervals: Rate: 70 [place]: 122 QRSD: 80 QT: 414 QTc: 447 [place]: P: 61 [place]: 122 QRS: 55 T: 36 INTERPRETIVE STATEMENTS: Normal sinus rhythm Normal ECG Compared to ECG 09/13/2023 02:09:34 T-wave abnormality no longer present Electronically Signed On 09-14-23 14:04:51 CDT by Jaciel Mathis
--- NOTE | 2023-09-14 14:08 | EKG ---
Test Date: 2023-09-13 Test Time: 02:09:34 Scrubber Machine Tender: BERTIN MEASUREMENT RESULTS: Intervals: Rate: 83 MO: 116 QRSD: 74 QT: 368 QTc: 432 [place]: P: 54 MO: 116 QRS: 61 T: 57 INTERPRETIVE STATEMENTS: Normal sinus rhythm Nonspecific T wave abnormality Abnormal ECG Compared to ECG 09/10/2023 11:37:31 T-wave abnormality now present Sinus tachycardia no longer present ST (T wave) deviation no longer present Possible ischemia no longer present Electronically Signed On 09-14-23 14:05:06 CDT by Jaciel Mathis
[2023-09-14 15:14] VITALS: O2SAT 95
--- NOTE | 2023-09-14 17:46 | P.PN ---
Date of Service: 09/14/23 Subjective Feeling better No acute events overnight Evaluated by cardiology today ROS 10 point ROS as noted above, otherwise negative Physical Exam General: Alert and oriented x3, NAD, comfortable HEENT: Atraumatic, Normocephalic, PERRLA Neck: Supple, 2+ carotid pulse no bruit, JVD not distended Respiratory: Clear to auscultation bilaterally, Normal air movement Cardiovascular: sinus tachycardia, Normal S1 S2 present Capillary refill: <2 Seconds Gastrointestinal: Normal bowel sounds, Soft and benign on palpation, No tenderness Musculoskeletal: Swelling, hematoma to right groin and upper thigh Integumentary: No rashes Neurological: Normal speech, Normal tone Vitals Reviewed Problem list Chest pain rule out VA History of VA due to trauma Coronary spasm History of hypertension History of depressive disorder History of anxiety History of migraine History of chronic back pain History of GI bleed Plan Chest pain rule out VA History of VA due to trauma Status post left heart cath with hematoma to right groin -Chest x-ray reports "The lungs are clear. No pneumothorax or effusion. The cardiomediastinal contours are unremarkable. IMPRESSION: No acute cardiopulmonary process." -CTA chest reports "No evidence of pulmonary thromboembolism. Mild possible interstitial pulmonary edema." -Troponin<3.0, 87.7, 377.0, 66.0 -transthoracic echocardiogram- results pending -Consult Cardiology - Repeat heart cath performed, results pending at this time -aspirin, statin, Imdur, metoprolol daily -continuous telemetry History of hypertension History of depressive disorder History of anxiety History of migraine History of chronic back pain History of GI bleed -Supportive care -Home meds continued DVT PPx Lovenox hold d/t right groin hematoma Full code LOS 1 day
--- NOTE | 2023-09-14 19:49 | PN ---
Date of Progress Note: 09/14/2023 Subjective: Seen at bedside. She kept having chest pain on and off throughout the week and troponin was borderline elevated, and the patient despite the Imdur, continuing to have chest pain. Review of Systems: Positive for chest pain. No shortness of breath. No nausea, vomiting, diarrhea. No abdominal pain. No dysuria, polyuria, or urgency. All other systems reviewed, they are negative. Physical Examination: Vital Signs: Reviewed. Head and Neck: Pupils are equal, reactive to light. Intact eye movements. No JVD. No cervical lym phadenopathy. Neck is supple. Thyroid is not enlarged. Lungs: Clear to auscultation bilaterally. No rhonchi, wheezing, or crackles. No accessory muscle u se. Heart: Regular rate and rhythm. No extra sounds. Abdomen: Soft, nontender. Bowel sounds positive. No organomegaly. No masses or hernia. No rigidi ty or rebound. Extremities: No edema, clubbing, cyanosis. Intact pulses. Skin: No rash. Neurologic: Alert, awake, oriented x3. No acute focal deficits appreciated. Investigation: Labs reviewed. Assessment/recommendation: 1.Elevated troponin, likely demand. However, she is having active chest pain and she has significan t coronary spasms on the cath on Thursday, however, I was not sure the ostial circ that was diseased or not. She has been on Imdur throughout the week and I will plan for coronary angiogram today and to have a definitive answer on this issue and plan accordingly. 2.Coronary artery vasospasm. Continue Imdur 30 mg and try to introduce beta-elgin and titrate bet a-elgin for a better heart rate. She has significant anxiety disorder. 3.Hematoma of the right groin, very small. We will monitor. SR/MODL Voice ID: [id number] Report ID: [id number]
[2023-09-14] MEDS: POTASSIUM 25 MEQ EFFERV TAB PO ONE (20:41)
--- NOTE | 2023-09-15 01:02 | OP ---
Date of Procedure: 09/14/2023 Surgeon: CANDACE BISWAS Procedure Performed: Selective coronary angiogram. Indication: Kcr-NI-jhhibdook myocardial infarction. Access: Left common femoral artery 6-Cymraes, closed with 6-Cymraes Angio-Seal. Complications: None. Bleeding: Less than 50 mL. Anesthesia: Total sedation time is 30 minutes, used fentanyl and Versed. Description Of Procedure: After risks, benefits, and alternatives were explained, the patient agreed to procedure and signed informed consent. The patient was brought into the cardiac catheterization laboratory, prepped and draped in usual sterile fashion. Then, I accessed left common femoral artery using micropuncture kit, ultrasound guidance, fluoroscopy, placed a 6-Cymraes [place] sheath and too k 6-Cymraes JR4 catheter into the aortic root over a J-wire, engaged left main, took standard views, t adithya I removed the catheter and the sheath and placed 6-Cymraes Angio-Seal with good hemostasis. Findings: 1.Left main, very short and normal. 2.LAD, normal, large vessel, normal diagonal branches, no stenosis. 3.Left circumflex, very large, normal, and the spasm is completely resolved and there is no disease. 4.RCA was not injected, noted to be normal. Conclusion: Normal coronary arteries and her symptoms are due to coronary artery vasospasm. Recommendation: Beta-elgin and nitrates can be released and follow up [facility] 1 to 2 [facility] at [facility] eD[facility]en MILLARD/ALEKSANDR Voice ID: [id number] Report ID: [id number]
--- NOTE | 2023-09-15 10:44 | P.DS ---
Admission Date: 09/11/23 Discharge Date: 09/15/23 Disposition: ROUTINE DISCHARGE Discharge Condition: GOOD Reason for Admission: Chest pain r/o [place] Consultations: Cardiology- Dr. Mathis Procedures: Left heart cath- Normal coronaries Brief History of Present Illness: Yohana Perez is a 42-year-old female with past medical history of hypertension, heart attack due to trauma, GI bleed, kidney stones, chronic back pain, migraine, anxiety, GI bleed, depressive disorder who presents to the ED with chief complaint of chest pain. She reports having a history of tachycardia. She recently had a stress test with Dr. Jones, the stresses had and due to her tachycardia around 200. She states she has had chest pain and pressure since of last week. She contacted Dr. Jones's office and was instructed to get her chest CT scan which is scheduled for September. She decided to come to the ED today for further evaluation. On examination she is calm and cooperative, no anxiety noted no distress noted, lung sounds are clear, S1-S2 present, chest pain nonreproducible. Hospital Course: Problem list Chest pain rule out [place] History of [place] due to trauma Coronary spasm History of hypertension History of depressive disorder History of anxiety History of migraine History of chronic back pain History of GI bleed Patient was admitted to the hospital for chest pain, she was evaluated by cardiology who recommended heart catheterization be performed, she had a heart catheterization performed on 09/10 but had significant coronary artery spasm, for that reason a repeat heart catheterization was performed on 09/14 which did not show any significant CAD. Echocardiogram was also performed which showed normal EF, normal wall motion, normal diastolic dysfunction, mild pulmonic insufficiency. Cardiology recommends addition of isosorbide mononitrate, metoprolol tartrate complaints of her bisoprolol for symptomatic control and follow-up as an outpatient. Please follow-up with your primary care doctor in 1 to 2 weeks Please also follow-up with cardiologyDr. Mathis Stop taking bisoprolol Prescription sent to the pharmacy for new medications including: isosorbide mononitrate 30 mg once daily to help prevent vasospasm Metoprolol titrate 25 mg by mouth twice daily Vital Signs/Physical Exam: Temp Pulse Resp BP Pulse Ox 97.0 F 65 16 101/63 94 09/15/23 08:00 09/15/23 08:00 09/15/23 08:00 09/15/23 08:00 09/15/23 08:00 General: Alert, In no apparent distress, Oriented x3 HEENT: Atraumatic, PERRLA Neck: Supple, JVD not distended Respiratory: Clear to auscultation bilaterally, Normal air movement Cardiovascular: Regular rate/rhythm, Normal S1 S2 Gastrointestinal: Normal bowel sounds Musculoskeletal: No tenderness Integumentary: No rashes Neurological: Normal speech, Normal tone Laboratory Data at Discharge: WBC 9.30 thou/uL (4.3-10.9) 09/13/23 06:31 Hgb 10.2 g/dL (12.0-15.0) L 09/13/23 06:31 Hct 30.4 % (36.0-45.0) L 09/13/23 06:31 Plt Count 185 thou/uL (152-406) 09/13/23 06:31 PT 11.0 SECONDS (9.5-12.5) 09/10/23 11:50 INR 1.00 09/10/23 11:50 Sodium 137 mEq/L (136-145) 09/12/23 06:38 Potassium 3.7 mEq/L (3.5-5.1) 09/14/23 09:16 BUN 9 mg/dL (7-18) 09/12/23 06:38 Creatinine 0.82 mg/dL (0.55-1.02) 09/12/23 06:38 Glucose 153 mg/dL (74-106) H 09/12/23 06:38 Phosphorus 3.5 mg/dL (2.5-4.9) 09/14/23 09:16 Magnesium 2.3 mg/dL (1.6-2.4) 09/14/23 09:16 Total Bilirubin 0.2 mg/dL (0.2-1.0) 09/10/23 11:50 AST < 10 U/L (15-37) L 09/10/23 11:50 ALT 40 U/L (13-56) 09/10/23 11:50 Alkaline Phosphatase 103 U/L (45-117) 09/10/23 11:50 Triglycerides 145 mg/dL (<150) 09/11/23 06:45 Cholesterol 164 mg/dL (<200) 09/11/23 06:45 HDL Cholesterol 34 mg/dL (40-60) L 09/11/23 06:45 Cholesterol/HDL Ratio 4.82 09/11/23 06:45 Home Medications: Aspirin [Aspirin EC] 81 mg PO DAILY #30 tab 04/27/23 Atorvastatin Calcium [Lipitor] 40 mg PO BEDTIME #30 tab 04/27/23 Duloxetine HCl [Cymbalta] 60 mg PO BID 04/27/23 Hydrocodone 5/APAP 325 [[place] 5/325*] 1 tab PO Q6H PRN #12 tab 04/27/23 Zolpidem Tartrate [Ambien*] 10 mg PO BEDTIME 04/27/23 Alprazolam [Xanax] TID* 09/10/23 Cariprazine HCl [Vraylar] PO DAILY 09/10/23 Mirtazapine 1 PO BEDTIME 09/10/23 lamoTRIgine [Lamictal] 200 mg PO DAILY 09/10/23 Isosorbide Mononitrate [Isosorbide Mononitrate ER] 30 mg PO DAILY #30 tab 09/15/23 Metoprolol Tartrate 25 mg PO BID #60 tab 09/15/23 New Medications: Isosorbide Mononitrate [Isosorbide Mononitrate ER] 30 mg PO DAILY #30 tab Metoprolol Tartrate 25 mg PO BID #60 tab Physician Discharge Instructions: Patient was admitted to the hospital for chest pain, she was evaluated by cardiology who recommended heart catheterization be performed, she had a heart catheterization performed on 09/10 but had significant coronary artery spasm, for that reason a repeat heart catheterization was performed on 09/14 which did not show any significant CAD. Echocardiogram was also performed which showed normal EF, normal wall motion, normal diastolic dysfunction, mild pulmonic insufficiency. Cardiology recommends addition of isosorbide mononitrate, metoprolol tartrate complaints of her bisoprolol for symptomatic control and follow-up as an outpatient. Please follow-up with your primary care doctor in 1 to 2 weeks Please also follow-up with cardiologyDr. Delfina Stop taking bisoprolol Prescription sent to the pharmacy for new medications including: isosorbide mononitrate 30 mg once daily to help prevent vasospasm Metoprolol titrate 25 mg by mouth twice daily Diet: Regular Activity: Ad francine Followup: Edd Friedman MD [Primary Care Provider] - 1-2 Weeks Jaciel Mathis MD [ACTIVE - CAN ADMIT] - 1-2 Weeks Time spent managing pt's care (in minutes): 35
[2023-09-15 10:49] VITALS: BP 101/63; TEMP 97
== END 2023-09-15 09:43 | disposition home or self-care (01) | DRG 282 ==
LOC: ER 11:29 → ERHOLD 14:14 → 2ND 14:56 → OBSVTOIN 09-11 16:41
PROVIDERS: ADMIT Internal Medicine Sleep Medicine; ATTEND Hospitalist
PROC: 4A023N7 Measurement of Cardiac Sampling and Pressure, Left Heart, Percutaneous Approach (ICD-10-PCS; principal; 2023-09-10)
PROC: B2111ZZ Fluoroscopy of Multiple Coronary Arteries using Low Osmolar Contrast (ICD-10-PCS; 2023-09-10)
PROC: B41G1ZZ Fluoroscopy of Left Lower Extremity Arteries using Low Osmolar Contrast (ICD-10-PCS; 2023-09-14)
DX: I20.1 Angina pectoris with documented spasm (principal); I21.A1 Myocardial infarction type 2; I10 Essential (primary) hypertension; F32.A Depression, unspecified; E78.5 Hyperlipidemia, unspecified; F41.9 Anxiety disorder, unspecified; G89.29 Other chronic pain; M54.9 Dorsalgia, unspecified; S30.1XXA Contusion of abdominal wall, initial encounter; I25.2 Old myocardial infarction; Z63.4 Disappearance and death of family member; Z79.82 Long term (current) use of aspirin; Z79.899 Other long term (current) drug therapy
CPT/HCPCS: 36415; 71045; 71275; 76937; 80048; 80061; 80076; 80307; 83036; 83735; 83880; 84100; 84132; 84439; 84443; 84484; 85025; 85027; 85347; 85610; 92978; 93005; 93306; 93454; 93458; 93926; 94640; 96374; 96375; 99152; 99153; 99285; C1760; C1893; G0269; G0378; J0461; J1644; J1650; J1940; J2001; J2250; J2310; J2405; J3010; J3535; J7040; J7512; J7613; J7614; J7644; Q9966; Q9967

== ENCOUNTER 2024-01-15 10:29 | Emergency (ER) | payer BC ==
[2024-01-15 11:02] LABS: Absolute Basophils 0.1 K/uL (0-0.5); Absolute Eosinophils 0.2 K/uL (0-0.5); Absolute Lymphocytes (CBC) 2.4 K/uL (0.7-4.9); Absolute Monocytes 0.6 K/uL (0.1-1.3); Absolute Neutrophil 6.4 K/uL (1.8-8.0); Basophils % 0.6 % (0-1.3); Eosinophils % 1.9 % (0-4.4); Hematocrit 41.1 % (36.0-45.0); Hemoglobin 13.8 g/dL (12.0-15.0); Lymphocytes % 24.6 % (15.3-44.8); MCH 29.4 pg (27.0-35.0); MCHC 33.5 g/dL (32.0-36.0); MCV 87.7 fL (80-100); MPV 9.8 fL (7.6-11.3); Monocytes % 6.5 % (3.3-12.3); Neutrophils % 66.4 % (41.7-73.7); Platelets 281 thou/uL (152-406); RBC Red Blood Cell Count 4.69 M/uL (3.86-4.86); Red Cell Distribution Width 14.6 % (12.1-15.2)
[2024-01-15 11:08] LABS: PT Prothrombin Time 11.2 SECONDS (9.4-12.5)
[2024-01-15 11:21] LABS: Anion Gap 8.1 mEq/L (5.0-15.0); Potassium 4.1 mEq/L (3.5-5.1); Troponin High Sensitivity 3.9 pg/mL (<58.9)
[2024-01-15] MEDS ORDERED: MORPHINE 4 MG/ML SYR ONE (11:41)
[2024-01-15] MEDS ORDERED: ONDANSETRON 4 MG/2 ML VIAL ONE (11:41)
--- NOTE | 2024-01-15 12:01 | RAD REPORT ---
EXAMINATION: ONE VIEW CHEST XR CLINICAL INDICATION: Female, 43 years old.,CHEST PAIN TECHNIQUE: Frontal chest projection is submitted. Examination is limited by patient positioning and t echnique. COMPARISON: 09/10/2023 FINDINGS: The lungs are well inflated and clear. No pneumothorax or sizable effusion. The heart is normal in s ize. IMPRESSION: No acute intrathoracic abnormalities.
--- NOTE | 2024-01-15 12:42 | ER ---
Nurse's Notes [facility] Name: Yohana Perez Age: 43 yrs Sex: Female : 1980 Arrival Date: 01/15/2024 Time: 10:29 Bed 15 Private MD: Diagnosis: Chest pain, unspecified Presentation: 01/14 10:39 Chief complaint: Patient states: she started having chest pain that she rates a 8/10 on ap3 the pain scale. patient reports the chest pain radiates into her neck. patient reports that she has had some dizziness with the last few days. Coronavirus screen: At this time, the client does not indicate any symptoms associated with coronavirus-19. Ebola Screen: No symptoms or risks identified at this time. Initial Sepsis Screen: Does the patient meet any 2 criteria? HR > 90 bpm. Does the patient have a suspected source of infection? No. Patient's initial sepsis screen is negative. Risk Assessment: Do you want to hurt yourself or someone else? Patient reports no desire to harm self or others. Onset of symptoms was January 15, 2024. 10:39 Method Of Arrival: Ambulatory ap3 10:39 Acuity: NICOLASA 2 ap3 Triage Assessment: 10:40 General: Appears in no apparent distress. Behavior is calm, cooperative, appropriate ap3 for age. Pain: Complains of pain in chest and neck Pain currently is 8 out of 10 on a pain scale. Neuro: Level of Consciousness is awake, alert, obeys commands, Oriented to person, place, time, situation. Cardiovascular: Patient's skin is warm and dry. Respiratory: Airway is patent Respiratory effort is even, unlabored, Respiratory pattern is regular, symmetrical. Historical: - Allergies: 10:40 No Known Allergies; ap3 - PMHx: 10:40 Anxiety; chronic back pain; depressive disorder; GI Bleed; heart attack due to trauma; ap3 Hypertensive disorder; Kidney stones; Migraine; - Immunization history:: Client reports receiving the 2nd dose of the Covid vaccine. - Infectious Disease History:: Denies. - Social history:: Smoking status: Reported history of juuling and/or vaping. Screenin:41 Abuse screen: Denies threats or abuse. Nutritional screening: No deficits noted. ap3 Tuberculosis screening: No symptoms or risk factors identified. 13:12 [facility] ED Fall Risk Assessment (Adult) History of falling in the last 3 months, ap3 including since admission No falls in past 3 months (0 pts) Confusion or Disorientation No (0 pts) Intoxicated or Sedated No (0 pts) Impaired Gait No (0 pts) Mobility Assist Device Used No (0 pt) Altered Elimination No (0 pt) Score/Fall Risk Level 0 - 2 = Low Risk Oriented to surroundings, Maintained a safe environment, Educated pt \\T\\ family on fall prevention, incl call for assistance when getting out of bed, Assessed \\T\\ reinforced patient's understanding of fall precautions, Hourly rounding (assess needs \\T\\ fall precautionary measures) done, Used ambulatory aids as needed (educated on \\T\\ assisted with), Used gait belt as appropriate. Assessment: 11:30 General: Appears comfortable, Behavior is calm, cooperative. Pain: Complains of pain in aa5 chest Pain radiates to neck Pain currently is 8 out of 10 on a pain scale. Quality of pain is described as sharp, shooting, Pain began this morning Is continuous. Neuro: Level of Consciousness is awake, alert, obeys commands, Oriented to person, place, time, situation. Cardiovascular: Reports chest pain, Pt states "my heart rate was about 150 this morning and I called the [facility] and they told me to come here to get evaluated". Pt states "I take metoprolol for a high heart rate" Denies palpitations, Heart tones S1 S2 present Rhythm is sinus rhythm. Respiratory: Airway is patent Respiratory effort is even, unlabored, Respiratory pattern is regular, symmetrical. GI: No signs and/or symptoms were reported involving the gastrointestinal system. : No signs and/or symptoms were reported regarding the genitourinary system. EENT: No signs and/or symptoms were reported regarding the EENT system. Derm: Skin is pink, warm \\T\\ dry. Musculoskeletal: Range of motion: intact in all extremities. 12:30 Reassessment: Patient is alert, oriented x 3, equal unlabored respirations, skin aa5 warm/dry/pink. Patient states symptoms have not improved. Pt requesting pain medication, notified. . 13:12 Pain: Pain radiates to neck Pain began suddenly, this morning. ap3 Vital Signs: 10:39 BP 128 / 84; Pulse 97; Resp 17; Temp 98.3; Pulse Ox 100% ; Weight 72.57 kg; Height 5 ap3 ft. 2 in. ; Pain 8/10; 11:35 BP 121 / 92; Pulse 76; Resp 19 S; Pulse Ox 100% on R/A; aa5 13:00 BP 107 / 77; Pulse 87; Resp 16 S; Pulse Ox 99% on R/A; aa5 10:39 Body Mass Index 29.26 (72.57 kg, 157.48 cm) ap3 10:39 Pain Scale: Adult ap3 ED Course: 10:30 Patient arrived in ED. mr 10:32 Percy Stallworth MD is Attending Physician. ec2 10:40 Triage completed. ap3 10:41 Patient maintains SpO2 saturation greater than 95% on room air. ap3 10:41 Arm band placed on right wrist. ap3 10:53 EKG done, by ED staff, reviewed by Percy Stallworth MD. em1 10:56 Initial lab(s) drawn, by me, sent to lab. Inserted saline lock: 20 gauge in right ap3 antecubital area, using aseptic technique. Blood collected. 11:17 XRAY Chest (1 view) In Process Unspecified. EDMS 11:30 Patient has correct armband on for positive identification. Placed in gown. Bed in low aa5 position. Call light in reach. Side rails up X2. Client placed on continuous cardiac and pulse oximetry monitoring. NIBP monitoring applied. agency legal counsel on. Pulse ox on. NIBP on. 11:31 Tianna Henry, RN is Primary Nurse. aa5 13:12 No provider procedures requiring assistance completed. IV discontinued, intact, ap3 bleeding controlled, No redness/swelling at site. Pressure dressing applied. 13:12 Provided Education on: discharge instructions. ap3 Administered Medications: 11:47 Drug: Ondansetron IVP 4 mg IVP once; over 2 minutes Route: IVP; Site: right antecubital;aa5 12:00 Follow up: Response: No adverse reaction aa5 11:48 Drug: morphine IVP or IV 4 mg IVP once over 4 mins Route: IVP; Infused Over: 4 mins; aa5 Site: right antecubital; 12:00 Follow up: Response: No adverse reaction aa5 12:43 Not Given (Patient Refused): TORadol - [id number] mg IVP once aa5 Medication: 13:12 VIS not applicable for this client. ap3 Outcome: 12:42 Discharge ordered by . ec2 13:12 Discharged to home ambulatory, ap3 13:12 Condition: good 13:12 Discharge instructions given to patient, Instructed on discharge instructions, follow up and referral plans. Demonstrated understanding of instructions, follow-up care, 13:12 Patient left the ED. ap3 Signatures: Dispatcher [employer] EDMS Cherelle Ellsworth, Reg Reg mr Michael, Binu em1 Tianna Henry, FÁTIMA RN aa5 Elise Forde RN RN ap3 Percy Stallworth MD MD ec2
--- NOTE | 2024-01-15 12:42 | EDPHYS ---
Physician Documentation [facility] Name: Yohana Perez Age: 43 yrs Sex: Female : 1980 Arrival Date: 01/15/2024 Time: 10:29 Bed 15 Private MD: ED Physician Percy Stallworth HPI: 01/14 11:02 This 43 yrs old Female presents to ER via Ambulatory with complaints of Chest ec2 Pain. 11:02 Patient arrives today for evaluation of left-sided chest pain. Onset of earlier today. ec2 No specific exertional component. Patient reports no difficulty breathing. Reports history of hypertension as well as hyperlipidemia. Historical: - Allergies: 10:40 No Known Allergies; ap3 - PMHx: 10:40 Anxiety; chronic back pain; depressive disorder; GI Bleed; heart attack due to trauma; ap3 Hypertensive disorder; Kidney stones; Migraine; - Immunization history:: Client reports receiving the 2nd dose of the Covid vaccine. - Infectious Disease History:: Denies. - Social history:: Smoking status: Reported history of juuling and/or vaping. ROS: 11:02 Constitutional: as per hpi ec2 Exam: 10:49 ECG was reviewed by the Attending Physician. ec2 11:02 Constitutional: GEN: NAD Head: atraumatic Eyes: EOMI Ears: External ears are ec2 normal. CV: regular rate LUNGS: no respiratory distress ABD: non-distended SKIN: no evidence of rashes MSK: no evidence of trauma Vital Signs: 10:39 BP 128 / 84; Pulse 97; Resp 17; Temp 98.3; Pulse Ox 100% ; Weight 72.57 kg; Height 5 ap3 ft. 2 in. ; Pain 8/10; 11:35 BP 121 / 92; Pulse 76; Resp 19 S; Pulse Ox 100% on R/A; aa5 13:00 BP 107 / 77; Pulse 87; Resp 16 S; Pulse Ox 99% on R/A; aa5 10:39 Body Mass Index 29.26 (72.57 kg, 157.48 cm) ap3 10:39 Pain Scale: Adult ap3 MDM: 10:43 Patient medically screened. ec2 10:49 ED course: EKG independently reviewed and interpreted by me, shows normal sinus rhythm, ec2 rate 91, no acute ST segment elevations, intervals are nonconcerning. . 11:02 Data reviewed: vital signs. ED course: Patient arrives today for left-sided chest pain ec2 ongoing for several hours. Examination remarkable for well-appearing nontoxic dividual's otherwise in no acute distress. Will obtain lab work, chest x-ray. Will give the patient morphine for pain control. Differential clues not such as ACS, gastritis, doubt PE, doubt dissection . 11:24 ED course: Metabolic profile reassuring, CBC reassuring, BNP, INR reassuring. Troponin ec2 within normal ranges. . 10 10:32 Order name: Basic Metabolic Panel; Complete Time: 11:23 ec2 01/14 10:32 Order name: CBC with Diff; Complete Time: 11:23 ec2 01/14 10:32 Order name: NT PRO-BNP; Complete Time: 11:23 ec2 01/14 10:32 Order name: PT-INR; Complete Time: 11:23 ec2 01/14 10:32 Order name: Troponin HS; Complete Time: 11:23 ec2 01/14 10:32 Order name: XRAY Chest (1 view); Complete Time: 12:08 ec2 01/14 10:32 Order name: Cardiac monitoring; Complete Time: 11:48 ec2 01/14 10:32 Order name: EKG - Nurse/Tech; Complete Time: 10:45 ec2 01/14 10:32 Order name: IV Saline Lock; Complete Time: 10:56 ec2 01/14 10:32 Order name: Labs collected and sent; Complete Time: 10:56 ec2 01/14 10:32 Order name: O2 Per Protocol; Complete Time: 11:48 ec2 01/14 10:32 Order name: O2 Sat Monitoring; Complete Time: 11:48 ec2 Administered Medications: 11:47 Drug: Ondansetron IVP 4 mg IVP once; over 2 minutes Route: IVP; Site: right antecubital;aa5 12:00 Follow up: Response: No adverse reaction aa5 11:48 Drug: morphine IVP or IV 4 mg IVP once over 4 mins Route: IVP; Infused Over: 4 mins; aa5 Site: right antecubital; 12:00 Follow up: Response: No adverse reaction aa5 12:43 Not Given (Patient Refused): TORadol - [id number] mg IVP once aa5 Disposition Summary: 01/15/24 12:42 Discharge Ordered Notes: Location: Home ec2 Condition: Stable ec2 Diagnosis - Chest pain, unspecified ec2 Followup: ec2 - With: Private Physician - When: - Reason: Re-evaluation by your physician Discharge Instructions: - Discharge Summary Sheet ec2 - Nonspecific Chest Pain, Adult, [id number] ec2 Forms: - Medication Reconciliation Form ec2 - Antibiotic Education ec2 - Prescription Opioid Use ec2 - Patient Portal Instructions ec2 - Leadership Thank You Letter ec2 Signatures: Dispatcher [employer] EDTianna Jacobson, RN RN aa5 Elise Forde RN RN ap3 Percy Stallworth MD MD ec2 Corrections: (The following items were deleted from the chart) 10:33 10:33 BASIC METABOLIC PANEL+C.LAB.BRZ ordered. EDMS EDMS 10:33 10:33 CBC+H.LAB.BRZ ordered. EDMS EDMS 10:33 10:33 PROBNP+C.LAB.BRZ ordered. EDMS EDMS 10:33 10:33 PROTIME (+INR)+COAG.LAB.BRZ ordered. EDMS EDMS 10:33 10:33 Troponin High Sensitivity+C.LAB.BRZ ordered. EDMS EDMS 10:33 10:33 Chest Single View+RAD.RAD.BRZ ordered. EDMS EDMS
[2024-01-15 15:52] VITALS: TEMP 98.3; O2SAT 100
[2024-01-15 15:53] VITALS: BP 121/92
--- NOTE | 2024-01-18 12:02 | EKG ---
Test Date: 2024-01-15 Test Time: 10:41:49 Financial Planning Assistant: RAE MEASUREMENT RESULTS: Intervals: Rate: 91 IL: 128 QRSD: 76 QT: 354 QTc: 435 [place]: P: 79 IL: 128 QRS: 76 T: 59 INTERPRETIVE STATEMENTS: Normal sinus rhythm Normal ECG Compared to ECG 09/14/2023 10:39:39 No significant changes Electronically Signed On 01-18-24 11:56:44 CDT by Ari Lawton
== END 2024-01-15 13:12 | disposition home or self-care (01) ==
LOC: ER 10:29
DX: R07.89 Other chest pain (principal); I10 Essential (primary) hypertension; F41.9 Anxiety disorder, unspecified
CPT/HCPCS: 93005; 85025; 80048; 36415; 85610; 84484; 83880; 71045; 96375; 96374; 99285; J2405

== ENCOUNTER 2024-02-15 10:24 | Observation (INO) | payer BC ==
--- NOTE | 2024-02-15 11:26 | RAD REPORT ---
EXAM: CT Ct Stroke Brain Wo Cont HISTORY: STROKE ALERT COMPARISON: 04/26/2019 TECHNIQUE: Multiple contiguous axial images were obtained for a CT of the brain without contrast. Sag ittal and coronal reformats were performed. One or more of the following dose reduction techniques were used: Automated exposure control, adjus tment of the mA and kV according to patient size, and iterative reconstruction. Unless otherwise specified, incidental findings do not require dedicated imaging follow-up. FINDINGS: No evidence of hydrocephalus, intracranial hemorrhage, or extra-axial fluid collection. The brain is normal in morphology. The calvarium is intact. The visualized paranasal sinuses and mastoid air cells are essentially clear . IMPRESSION: No evidence of acute intracranial abnormality. THIS REPORT CONTAINS FINDINGS THAT MAY BE CRITICAL TO PATIENT CARE. The findings were verbally commun icated via telephone to Scott Mari M.D. on 02/15/2024 11:23 AM.
--- NOTE | 2024-02-15 11:29 | RAD REPORT ---
EXAMINATION: CTA HEAD CLINICAL INDICATION: Female, 43 years old. stroke TECHNIQUE: Axial CT images were obtained through the head after intravenous contrast utilizing angiog raphic protocol with 3D post-processing (maximum intensity projection images, volume rendered images and/or shaded surface rendered images). One or more of the following dose reduction technique s were used: Automated exposure control, adjustment of the mA and/or kV according to patient size, and/or iterative reconstruction. Unless otherwise specified, incidental findings do not require dedic ated imaging follow-up. COMPARISON: No prior exam. FINDINGS: ICA: The petrous, cavernous, and supraclinoid segments of the bilateral internal carotid arteries are normal. Patent posterior communicating arteries, more prominent on the right. SHERRY: Anterior cerebral arteries are normal bilaterally. The anterior communicating artery is patent. MCA: Middle cerebral arteries are normal bilaterally. HAND QUILTER: Posterior cerebral arteries are normal bilaterally. Vertebrobasilar: The vertebral arteries are patent. The basilar artery is normal in appearance. 3D images confirm these findings. IMPRESSION: No evidence of intracranial large vessel occlusion or hemodynamically significant stenosis. THIS REPORT CONTAINS FINDINGS THAT MAY BE CRITICAL TO PATIENT CARE. The findings were verbally commun icated via telephone to Scott Mari M.D. on 02/15/2024 11:23 AM.
--- NOTE | 2024-02-15 11:31 | RAD REPORT ---
EXAMINATION: CT Neck Angio CLINICAL INDICATION: Female, 43 years old. [facility] stroke Bed Name: 3 TECHNIQUE: Axial CT images were obtained from the aortic arch to the skull base after intravenous con trast utilizing angiographic protocol. Multiplanar reformats, as well as 3D post-processing (maximum intensity projection images, volume rendered images and/or shaded surface rendered images) w ere generated and reviewed. One or more of the following dose reduction techniques were used: Automated exposure control, adjustment of the mA and/or kV according to patient size, and/or iterativ e reconstruction. Unless otherwise specified, incidental findings do not require dedicated imaging follow-up. COMPARISON: 09/24/2022 FINDINGS: AORTA: The imaged aortic arch is normal. Normal three-vessel configuration of the arch. CCA: No artifact The common carotid arteries are patent and normal in caliber. ICA/ECA: Bilateral internal and external carotid arteries are patent. There is no significant interna l carotid artery stenosis. VERTEBRAL: The cervical vertebral arteries are patent to the skull base. Vertebral arteries are codom inant. SOFT TISSUE: No significant neck soft tissue abnormalities. The visualized lung apices are clear. 3D images confirm these findings. IMPRESSION: No significant flow abnormality of the neck vessels is identified. THIS REPORT CONTAINS FINDINGS THAT MAY BE CRITICAL TO PATIENT CARE. The findings were verbally commun icated via telephone to Scott Mari M.D. on 02/15/2024 11:23 AM. NASCET criteria used to quantify ICA stenosis, with the following grading scheme: Mild 0-49% stenosis Moderate 50-69% stenosis Severe 70-99% stenosis Reference: [place] Symptomatic Carotid Endarterectomy Trial Collaborators; Samuel ROBERSON, Wendy GIFFORD, Cristina RB, et al. Beneficial effect of carotid endarterectomy in symptomatic patients with high-grade carotid stenosis. N Engl J Med. 1990Nov 25;325(7):445-53.
[2024-02-15 11:32] LABS: Absolute Eosinophils 0.2 K/uL (0-0.5); Absolute Lymphocytes (CBC) 2.3 K/uL (0.7-4.9); Absolute Monocytes 0.7 K/uL (0.1-1.3); Basophils % 0.3 % (0-1.3); Eosinophils % 2.2 % (0-4.4); Hematocrit 44.1 % (36.0-45.0); Hemoglobin 14.7 g/dL (12.0-15.0); Lymphocytes % 24.7 % (15.3-44.8); MCH 29.5 pg (27.0-35.0); MCHC 33.4 g/dL (32.0-36.0); MCV 88.4 fL (80-100); MPV 9.4 fL (7.6-11.3); Monocytes % 7.8 % (3.3-12.3); Platelets 285 thou/uL (152-406); Red Cell Distribution Width 14.4 % (12.1-15.2)
[2024-02-15 11:39] LABS: PT Prothrombin Time 11.3 SECONDS (9.4-12.5); PTT, Activated Partial Thromb 35.2 SECONDS (24.3-36.9); Protime INR 1.01
[2024-02-15 11:54] LABS: Albumin 3.8 g/dL (3.4-5.0); Alkaline Phosphatase 127 U/L (45-117); BUN Blood Urea Nitrogen 6 mg/dL (7-18); Bicarbonate 30 mEq/L (21-32); Bilirubin Total 0.4 mg/dL (0.2-1.0); Globulin 3.8 g/dL (2.3-3.5); Glomerular Filtration Rate 76 ml/min (=/>90); Glucose Level 78 mg/dL (74-106); Magnesium 2.3 mg/dL (1.6-2.4); Protein, Total 7.6 g/dL (6.4-8.2); Sodium Level 138 mEq/L (136-145)
[2024-02-15 11:58] LABS: ALT/SGPT < 14 U/L (13-56); AST/SGOT < 10 U/L (15-37); Bilirubin Direct < 0.2 mg/dL (0-0.2); Bilirubin Indirect, Calculated 0.2 mg/dL (0.2-0.8); Troponin High Sensitivity < 3.0 pg/mL (<58.9)
[2024-02-15 12:28] LABS: Barbiturates NEGATIVE (NEGATIVE); Benzodiazepines POSITIVE (NEGATIVE); Cocaine NEGATIVE (NEGATIVE); METHAMPHETAM NEGATIVE (NEGATIVE); Methadone NEGATIVE (NEGATIVE); Opiates NEGATIVE (NEGATIVE); Phencyclidine NEGATIVE (NEGATIVE); THC Cannibis NEGATIVE (NEGATIVE)
[2024-02-15] MEDS ORDERED: DIPHENHYDRAMINE 50 MG/ML VIAL ONE (13:35)
[2024-02-15] MEDS ORDERED: KETOROLAC 30 MG/ML INJ ONE (13:35)
[2024-02-15] MEDS ORDERED: NA CHLORIDE 0.9% 100 ML ONE (13:36)
[2024-02-15] MEDS ORDERED: METOCLOPRAMIDE 10 MG/2mL INJ ONE (13:36)
--- NOTE | 2024-02-15 13:45 | RAD REPORT ---
EXAMINATION: ONE VIEW CHEST XR CLINICAL INDICATION: Female, 43 years old.,stroke TECHNIQUE: Frontal chest projection is submitted. Examination is limited by patient positioning and t echnique. COMPARISON: 01/15/2024 FINDINGS: The lungs are well inflated and clear. No pneumothorax or sizable effusion. The heart is normal in s ize. Mediastinal contours are unremarkable. IMPRESSION: No acute intrathoracic abnormalities.
--- NOTE | 2024-02-15 14:26 | EDPHYS ---
Physician Documentation [facility] Name: Yohana Perez Age: 43 yrs Sex: Female : 1980 Arrival Date: 02/15/2024 Time: 10:24 Bed 19 Private MD: THELMA Physician Scott Mari HPI: 02/14 11:07 This 43 yrs old Female presents to ER via Ambulatory with complaints of facial and left sb4 side numbness. 11:08 The patient's problem is reported as paresthesias, in left upper extremity, in left sb4 lower extremity, in left side of face. Onset: The symptoms/episode began/occurred 2 day(s) ago. Duration: The episode is continuous. 11:09 Patient states that she noticed about 2 days ago that the left side of her body has sb4 felt numb and weak, mainly her left arm and upper left leg. Has not had any issues with slurred speech or difficulty swallowing that she is aware of. States that her family has noticed that she has been having issues finding her words. States that she is also felt like her left eye is not functioning as normally. INDUSTRIAL CUSTODIAN: 17:11 unknown cm10 Historical: - Allergies: 10:51 No Known Allergies; ss - PMHx: 10:51 Anxiety; depressive disorder; GI Bleed; chronic back pain; heart attack due to trauma; ss Hypertensive disorder; Kidney stones; Migraine; - PSHx: 10:51 section; Emergency laparotomy; ss - Immunization history:: Adult Immunizations up to date. - Infectious Disease History:: Denies. - Social history:: Smoking status: unknown. ROS: 11:09 Constitutional: Negative for fever, chills, and weight loss, sb4 11:09 Neuro: Positive for numbness, of the left arm and left leg, 11:09 All other systems are negative, Exam: 11:09 Constitutional: This is a well developed, well nourished patient who is awake, alert, sb4 and in no acute distress. Head/Face: Normocephalic, atraumatic. Eyes: Extra-ocular motions intact. Periorbital areas with no swelling, redness, or edema. ENT: Mucous membranes moist. Cardiovascular: Regular rate and rhythm with a normal S1 and S2. Respiratory: No increased work of breathing, no retractions or nasal flaring. Abdomen/GI: Soft, non-tender, no distension. 14:11 Radiologist reports: negative sb4 Vital Signs: 10:48 BP 120 / 99; Pulse 113; Resp 15; Temp 98(TE); Pulse Ox 100% on R/A; ss 13:57 BP 125 / 100; Pulse 84; Resp 16; Pulse Ox 99% on R/A; Pain 9/10; iw 15:45 BP 108 / 84; Pulse 90; Resp 18; Pulse Ox 100% on R/A; cm10 13:57 Pain Scale: Adult iw NIH Stroke Scale Scores: 10:52 NIHSS Score: 1 ss 11:09 NIHSS Score: 3 sb4 MDM: 10:48 Medical Screening Exam initiated sb4 14:25 Data reviewed: vital signs, nurses notes, lab test result(s), EKG, radiologic studies, sb4 and as a result, I will admit patient. Consideration of Admission/Observation Patient was admitted/placed on observation. Counseling: I had a detailed discussion with the patient and/or guardian regarding the historical points, exam findings, and any diagnostic results supporting the discharge/admit diagnosis, the presence of at least one elevated blood pressure reading (>120/80) during this emergency department visit, lab results, radiology results, the need for further work-up and treatment in the hospital. 02/14 10:55 Order name: Basic Metabolic Panel; Complete Time: 11:59 sb4 02/14 10:55 Order name: CBC with Diff; Complete Time: 11:37 sb4 02/14 10:55 Order name: Hepatic Function; Complete Time: 11:59 sb4 02/14 10:55 Order name: High Sensitivity Troponin; Complete Time: 11:59 sb4 02/14 10:55 Order name: Magnesium; Complete Time: 11:59 sb4 02/14 10:55 Order name: Protime (+inr); Complete Time: 11:41 sb4 02/14 10:55 Order name: Ptt, Activated; Complete Time: 11:41 sb4 02/14 10:55 Order name: UDS; Complete Time: 12:28 sb4 02/14 11:40 Order name: CREATININE WHOLE BLOOD; Complete Time: 11:41 EDMS 02/14 15:30 Order name: CBC with Automated Diff EDMS 02/14 15:30 Order name: CBC with Automated Diff EDMS 02/14 15:30 Order name: Comprehensive Metabolic Panel EDMS 02/14 15:30 Order name: Comprehensive Metabolic Panel EDOK 02/14 15:30 Order name: Lipid Profile EDMS 02/14 15:30 Order name: Lipid Profile EDOK 02/14 10:55 Order name: CT Neck Angio; Complete Time: 11:33 sb4 02/14 10:55 Order name: CT Stroke Brain w/o Contrast; Complete Time: 11:33 sb4 02/14 10:55 Order name: Stroke CXR 1 View; Complete Time: 13:46 sb4 02/14 11:02 Order name: Head angio; Complete Time: 11:33 EDMS 02/14 15:31 Order name: Brain Wo Cont EDOK 02/14 15:30 Order name: CONS Physician Consult EDOK 02/14 10:55 Order name: Accucheck; Complete Time: 13:47 sb4 02/14 10:55 Order name: Cardiac monitoring; Complete Time: 13:47 sb4 02/14 10:55 Order name: EKG - Nurse/Tech; Complete Time: 14:14 sb4 02/14 10:55 Order name: IV Saline Lock; Complete Time: 11:28 sb4 02/14 10:55 Order name: Labs collected and sent; Complete Time: 11:28 sb4 02/14 10:55 Order name: O2 Per Protocol; Complete Time: 11:28 sb4 02/14 10:55 Order name: O2 Sat Monitoring; Complete Time: 11:28 sb4 02/14 10:55 Order name: Stroke Swallow Screen; Complete Time: 14:14 sb4 EC:11 Rate is 96 beats/min. Rhythm is regular, Normal Sinus Rhythm. [place] interval is normal at sb4 128 msec. QRS interval is normal at 76 msec. QT interval is normal at 372 msec. No Q waves. T waves are Normal. No ST changes noted. Clinical impression: Normal ECG. Interpreted by me. Reviewed by me. Administered Medications: 13:47 Drug: metoCLOPramide IVP 10 mg IVP once; over 1 to 2 minutes Route: IVP; Site: right iw antecubital; 16:16 Follow up: Response: No adverse reaction cm10 13:47 Drug: diphenhydrAMINE IVP 25 mg IVP once Route: IVP; Site: right antecubital; iw 16:15 Follow up: Response: No adverse reaction cm10 13:47 Drug: Ketorolac IVP 15 mg IVP once Route: IVP; Site: right antecubital; iw 16:15 Follow up: Response: No adverse reaction cm10 Disposition Summary: 02/15/24 14:26 Hospitalization Ordered Notes: Hospitalization Status: Observation sb4 Provider: Mayra Carpenter4 Location: Telemetry/MedSurg (observation) sb4 Condition: Fair sb4 Problem: new sb4 Symptoms: are unchanged sb4 Bed/Room Type: Standard sb4 Room Assignment: 205(02/15/24 16:12) bd Diagnosis - Paresthesia of skin sb4 - Weakness sb4 Forms: - Medication Reconciliation Form sb4 - SBAR form sb4 - Leadership Thank You Letter sb4 NIH Stroke Scale - NIH Stroke Score Date: 02/15/2024 Time: 10:52 Total Score = 1 10. Dysarthria (speech clarity - read or repeat words) - 0(Normal) 11. Extinction and Inattention (visual/tactile/auditory/spatial/personal) - 0(No abnormality) 1a. Level of Consciousness (LOC) - 0(Alert) 1b. Level of Consciousness (LOC) (Month \T\ Age) - 0(Both) 1c. LOC Commands (Open \T\ Closes Eyes/Rouge Miller) - 0(Both) 2. Best Gaze (Lateral Gaze Paresis) - 0(Normal) 3. Visual Field Loss - 0(No visual loss) 4. Facial Palsy - 0(Normal) 5a. Left Arm: Motor (10-second hold) - 0(No drift) 5b. Right Arm: Motor (10-second hold) - 0(No drift) 6a. Left Leg: Motor (5-second hold - always test supine) - 0(No drift) 6b. Right Leg: Motor (5-second hold - always test supine) - 0(No drift) 7. Limb Ataxia (finger/nose \T\ heel/eckert - test with eyes open) - 0(Absent) 8. Sensory Loss (pinprick arms/legs/face) - 1(Mild to moderate loss) 9. Best Language: Aphasia (description/naming/reading) - 0(No aphasia) Initials: NIH Stroke Scale - NIH Stroke Score Date: 02/15/2024 Time: 11:09 Total Score = 3 10. Dysarthria (speech clarity - read or repeat words) - 0(Normal) 11. Extinction and Inattention (visual/tactile/auditory/spatial/personal) - 0(No abnormality) 1a. Level of Consciousness (LOC) - 0(Alert) 1b. Level of Consciousness (LOC) (Month \T\ Age) - 0(Both) 1c. LOC Commands (Open \T\ Closes Eyes/Rouge Miller) - 0(Both) 2. Best Gaze (Lateral Gaze Paresis) - 0(Normal) 3. Visual Field Loss - 0(No visual loss) 4. Facial Palsy - 1(Minor Paralysis) 5a. Left Arm: Motor (10-second hold) - 1(Drift) 5b. Right Arm: Motor (10-second hold) - 0(No drift) 6a. Left Leg: Motor (5-second hold - always test supine) - 0(No drift) 6b. Right Leg: Motor (5-second hold - always test supine) - 0(No drift) 7. Limb Ataxia (finger/nose \T\ heel/eckert - test with eyes open) - 0(Absent) 8. Sensory Loss (pinprick arms/legs/face) - 1(Mild to moderate loss) 9. Best Language: Aphasia (description/naming/reading) - 0(No aphasia) Initials: sb4 Signatures: Dispatcher [employer] EDMS Makayla Malin Irene, RN FÁTIMA iw Rochelle Jung RN RN Ana Godwin PA-Dany PAMichelle sb4 Rosa Rodriguez RN RN cm10 Corrections: (The following items were deleted from the chart) 10:56 10:56 Neck Angio+CT.RAD.BRZ ordered. EDMS EDMS 10:56 10:56 CT-STROKE BRAIN W/O CONTRAST+CT.RAD.BRZ ordered. EDMS EDMS 10:56 10:56 Chest Single View+RAD.RAD.BRZ ordered. EDMS EDMS 16:12 14:26 sb4 bd
--- NOTE | 2024-02-15 14:26 | ER ---
Nurse's Notes [facility] Name: Yohana Perez Age: 43 yrs Sex: Female : 1980 Arrival Date: 02/15/2024 Time: 10:24 Bed 19 Private MD: Diagnosis: Paresthesia of skin;Weakness Presentation: 02/14 10:48 Chief complaint: Patient states: L sided numbness that began in face that radiates down ss arm x 2 days. Pt states, "my family is telling me I keep repeating myself. I'm also on psych meds, so I'm not sure if it could be that or not.". Coronavirus screen: Client denies travel out of the [place] in the last 14 days. Ebola Screen: Patient denies exposure to infectious person. Patient denies travel to an Ebola-affected area in the 21 days before illness onset. Initial Sepsis Screen: Does the patient meet any 2 criteria? No. Patient's initial sepsis screen is negative. Does the patient have a suspected source of infection? No. Patient's initial sepsis screen is negative. Risk Assessment: Do you want to hurt yourself or someone else? Patient reports no desire to harm self or others. Onset of symptoms was February 13, 2024. 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 - Infectious Disease History:: Denies. - Social history:: Smoking status: unknown. Screenin:52 Abuse screen: Denies threats or abuse. Denies injuries from another. Tuberculosis ss screening: Never had TB. VAN Screening: Arm Drift: Patient shows no arm weakness. Patient is VAN negative. Visual Disturbance: No visual disturbance noted. Aphasia: No aphasia noted. Neglect: No neglect noted. 13:50 [place] Swallow Protocol Exclusion Criteria: Unable to remain alert for testing: No NPO iw for medical/surgical reason by provider order No Head-of-bed restricted <30 degrees Tracheostomy tube present No No thin liquids due to preexisting dysphagia/baseline modified diet thickened liquids No Exclusion Criteria Result: Proceed Brief Cognitive Screen What is your name? Normal, Where are you right now? Normal, What year is it? Normal. Oral Mechanism Examination Facial Symmetry: Normal, Motion: Normal, Lip Closure: Normal, Oral Mechanism Result: Normal. 3 oz Water Swallow Challenge: Pt able to drink all water without stopping, coughing, choking or throat clearing: Yes Result: PASS. 17:11 [facility] ED Fall Risk Assessment (Adult) History of falling in the last 3 months, cm10 including since admission No falls in past 3 months (0 pts) Confusion or Disorientation No (0 pts) Intoxicated or Sedated No (0 pts) Impaired Gait No (0 pts) Mobility Assist Device Used No (0 pt) Altered Elimination No (0 pt) Score/Fall Risk Level 0 - 2 = Low Risk Oriented to surroundings, Maintained a safe environment, Hourly rounding (assess needs \\T\\ fall precautionary measures) done. Nutritional screening: No deficits noted. Assessment: 13:30 General: Appears in no apparent distress. Behavior is calm, cooperative. Pain: iw Complains of pain in head Pain currently is 9 out of 10 on a pain scale. Neuro: Level of Consciousness is awake, alert, obeys commands, Oriented to person, place, time, situation, Moves all extremities. Full function Reports numbness in forehead, left ear, left cheek, left eye, left jaw and left arm since 2 days ago weakness in left arm and left leg. Cardiovascular: Patient's skin is warm and dry. Respiratory: Airway is patent Respiratory effort is even, unlabored. GI: Abdomen is non-distended. Derm: Skin is intact, is healthy with good turgor. Musculoskeletal: Range of motion: intact in all extremities. 16:14 Reassessment: Patient appears in no apparent distress at this time. No changes from cm10 previously documented assessment. Patient and/or family updated on plan of care and expected duration. Pain level reassessed. Patient is alert, oriented x 3, equal unlabored respirations, skin warm/dry/pink. Vital Signs: 10:48 BP 120 / 99; Pulse 113; Resp 15; Temp 98(TE); Pulse Ox 100% on R/A; ss 13:57 BP 125 / 100; Pulse 84; Resp 16; Pulse Ox 99% on R/A; Pain 9/10; iw 15:45 BP 108 / 84; Pulse 90; Resp 18; Pulse Ox 100% on R/A; cm10 13:57 Pain Scale: Adult NIH Stroke Scale Scores: 10:52 NIHSS Score: 1 ss 11:09 NIHSS Score: 3 sb4 ED Course: 10:26 Patient arrived in ED. ra3 10:39 [facility]C [facility] sb4 10:39 Scott Mari MD is Attending Physician. sb4 10:51 Triage completed. ss 10:51 Arm band placed on right wrist. ss 11:23 CT Stroke Brain w/o Contrast In Process Unspecified. EDMS 11:24 CT Neck Angio In Process Unspecified. EDMS 11:24 Head angio In Process Unspecified. EDMS 11:28 Stroke CXR 1 View In Process Unspecified. EDMS 11:28 Initial lab(s) drawn, by me, sent to lab. Inserted saline lock: 22 gauge in right zm antecubital area, using aseptic technique. Blood collected. Flushed with 10 mL NS. 11:28 Basic Metabolic Panel Sent. zm 11:28 CBC with Diff Sent. zm 11:28 Hepatic Function Sent. zm 11:28 High Sensitivity Troponin Sent. zm 11:28 Magnesium Sent. zm 11:28 Protime (+inr) Sent. zm 11:28 Ptt, Activated Sent. zm 13:31 oRse Sims, RN is Primary Nurse. iw 14:01 Patient has correct armband on for positive identification. Provided Education on: iw medication . 14:14 EKG done, by ED staff, reviewed by Ana Reece PA-C. zm 14:25 Mayra Carpenter MD is Hospitalizing Provider. sb4 16:31 Report faxed at [phone]. Leelee confirmed received at 1630. cm10 17:10 No provider procedures requiring assistance completed. Patient admitted, IV remains in cm10 place. Administered Medications: 13:47 Drug: metoCLOPramide IVP 10 mg IVP once; over 1 to 2 minutes Route: IVP; Site: right iw antecubital; 16:16 Follow up: Response: No adverse reaction cm10 13:47 Drug: diphenhydrAMINE IVP 25 mg IVP once Route: IVP; Site: right antecubital; iw 16:15 Follow up: Response: No adverse reaction cm10 13:47 Drug: Ketorolac IVP 15 mg IVP once Route: IVP; Site: right antecubital; iw 16:15 Follow up: Response: No adverse reaction cm10 Medication: 17:11 VIS not applicable for this client. cm10 Outcome: 14:26 Decision to Hospitalize by Provider. sb4 17:10 Admitted to Med/surg accompanied by nurse, via wheelchair, room 205, cm10 17:10 Condition: good 17:10 Instructed on the need for admit, 17:11 Patient left the ED. cm10 NIH Stroke Scale - NIH Stroke Score Date: 02/15/2024 Time: 10:52 Total Score = 1 10. Dysarthria (speech clarity - read or repeat words) - 0(Normal) 11. Extinction and Inattention (visual/tactile/auditory/spatial/personal) - 0(No abnormality) 1a. Level of Consciousness (LOC) - 0(Alert) 1b. Level of Consciousness (LOC) (Month \\T\\ Age) - 0(Both) 1c. LOC Commands (Open \\T\\ Closes Eyes/District Manager Primary Care Sales) - 0(Both) 2. Best Gaze (Lateral Gaze Paresis) - 0(Normal) 3. Visual Field Loss - 0(No visual loss) 4. Facial Palsy - 0(Normal) 5a. Left Arm: Motor (10-second hold) - 0(No drift) 5b. Right Arm: Motor (10-second hold) - 0(No drift) 6a. Left Leg: Motor (5-second hold - always test supine) - 0(No drift) 6b. Right Leg: Motor (5-second hold - always test supine) - 0(No drift) 7. Limb Ataxia (finger/nose \\T\\ heel/eckert - test with eyes open) - 0(Absent) 8. Sensory Loss (pinprick arms/legs/face) - 1(Mild to moderate loss) 9. Best Language: Aphasia (description/naming/reading) - 0(No aphasia) Initials: NIH Stroke Scale - NIH Stroke Score Date: 02/15/2024 Time: 11:09 Total Score = 3 10. Dysarthria (speech clarity - read or repeat words) - 0(Normal) 11. Extinction and Inattention (visual/tactile/auditory/spatial/personal) - 0(No abnormality) 1a. Level of Consciousness (LOC) - 0(Alert) 1b. Level of Consciousness (LOC) (Month \\T\\ Age) - 0(Both) 1c. LOC Commands (Open \\T\\ Closes Eyes/District Manager Primary Care Sales) - 0(Both) 2. Best Gaze (Lateral Gaze Paresis) - 0(Normal) 3. Visual Field Loss - 0(No visual loss) 4. Facial Palsy - 1(Minor Paralysis) 5a. Left Arm: Motor (10-second hold) - 1(Drift) 5b. Right Arm: Motor (10-second hold) - 0(No drift) 6a. Left Leg: Motor (5-second hold - always test supine) - 0(No drift) 6b. Right Leg: Motor (5-second hold - always test supine) - 0(No drift) 7. Limb Ataxia (finger/nose \\T\\ heel/eckert - test with eyes open) - 0(Absent) 8. Sensory Loss (pinprick arms/legs/face) - 1(Mild to moderate loss) 9. Best Language: Aphasia (description/naming/reading) - 0(No aphasia) Initials: sb4 Signatures: Dispatcher [employer] Rose Morin, RN Rochelle Ojeda RN RN ss Martinez, Zaina zm Brown, Sophia, PAMichelle PAMichelle sb4 Rosa Rodriguez RN RN cm10 Bharati Baker ra3
--- NOTE | 2024-02-15 14:44 | P.HP ---
Certification for Inpatient Patient admitted to: Observation With expected LOS: <2 Midnights Patient will require the following post-hospital care: None Practitioner: I am a practitioner with admitting privileges, knowledge of patient current condition, hospital course, and medical plan of care. Services: Services provided to patient in accordance with Admission requirements found in Title 42 Section 412.3 of the Code of Federal Regulations Patient History Date of Service: 02/15/24 Reason for admission: Weakness, paresthesias, headache History of Present Illness: Ms. Perez is a 43-year-old female with a past medical history of type II CA, recent cath with clean coronaries, anxiety, depression, and migraines. She presented to the ED emergency department with a chief complaint of left-sided paresthesias and weakness to her left upper extremity yesterday and then encompassing her left lower extremity today. She describes a sharp right parietal headache. She has had multiple vascular workups in the past and takes metoprolol 50 mg p.o. twice daily and Imdur 30 mg p.o. daily. She and her state that she has never had a seizure, when asked if she has had an EEG in the past she states she does not think so; but, her states she had 1 at [facility] during a 5-day admission for similar signs and symptoms about a year ago. CT head, CTA head and neck in the emergency department negative for acute findings, chest x-ray clear, hemoglobin 14.7/44.1, electrolytes and troponin negative. GCS 15, NIHSS 4, for mild drift of left upper and lower extremity with altered sensation to each. She will be admitted for observation for neurochecks, stroke scale each shift, and consultation with Dr. Qiu. Will try to obtain a MRI of the brain tomorrow Allergies No Known Drug Allergies Allergy (Verified 09/10/23 22:13) Unknown Home Medications: Hydrocodone 5/APAP 325 [[place] 5/325*] 1 tab PO Q6H PRN #12 tab 04/27/23 Zolpidem Tartrate [Ambien*] 10 mg PO BEDTIME 04/27/23 Alprazolam [Xanax] 1 mg PO TID* 09/10/23 Cariprazine HCl [Vraylar] 3 mg PO DAILY 09/10/23 Isosorbide Mononitrate [Isosorbide Mononitrate ER] 30 mg PO DAILY #30 tab 09/15/23 Metoprolol Tartrate 50 mg PO BID 02/15/24 Vortioxetine Hydrobromide [Trintellix] 15 mg PO BEDTIME 02/15/24 - Past Medical/Surgical History Has patient received pneumonia vaccine in the past: No Diabetic: No -: migraine -: HTN -: CA- 2003 -: DISC HERNIATION L5 S1 -: AFIB -: MITRAL VALVE PROLAPSE -: GIB -: RLS -: depression/anxiety -: kidney stone -: x 3 -: exlap secondary to c/section Psychosocial/ Personal History: Lives at home with her and 3 children - Family History Father -: Heart disease, Diabetes, Cancer Notes: . recently Mother -: Cancer Notes: ovarian - Social History Smoking Status: Unknown if ever smoked Smoking therapy provided: No (Vapes) Alcohol use: Yes CD- Drugs: No Caffeine use: Yes Place of Residence: Home Review of Systems 10-point ROS is otherwise unremarkable General: Weakness, Malaise Eyes: Unremarkable ENT: Unremarkable Respiratory: Unremarkable Cardiovascular: Chest Pain Gastrointestinal: Unremarkable Genitourinary: Unremarkable Musculoskeletal: As per HPI Integumentary: Unremarkable Neurological: As per HPI Lymphatics: Unremarkable Physical Examination - Vital Signs Blood Pressure: 118/94 Pulse: 94 Respirations: 20 Pulse Ox (%): 99 - Physical Exam General: Alert, In no apparent distress, Oriented x3 HEENT: Atraumatic, Normocephalic Neck: Supple, 2+ carotid pulse no bruit Respiratory: Clear to auscultation bilaterally, Normal air movement Cardiovascular: No edema, Regular rate/rhythm Capillary refill: <2 Seconds Gastrointestinal: Soft and benign Musculoskeletal: No clubbing Integumentary: No rashes Neurological: Normal speech, Normal tone, Other (Questionable weakness to left upper and lower extremity, states sensation is diminished to each), Abnormal affect Lymphatics: No axilla or inguinal lymphadenopathy External genitalia: Deferred Rectal: Deferred - Studies Laboratory Data (last 24 hrs) 02/15/24 02/15/24 02/15/24 11:16 11:16 11:16 WBC 9.20 Hgb 14.7 Hct 44.1 Plt Count 285 PT 11.3 INR 1.01 APTT 35.2 Sodium 138 Potassium 4.0 BUN 6 L Creatinine 0.95 Glucose 78 Magnesium 2.3 Total Bilirubin 0.4 AST < 10 L ALT < 14 Alkaline Phosphatase 127 H Assessment and Plan - Plan Weakness and paresthesias Headache Hypertension CT head, CTA head and neck negative in ED MRI stroke protocol tomorrow Gentle hydration Neurochecks every 4 NIHSS every shift Consult Dr. Qiu Continue Imdur and metoprolol Vital signs every 4 Monitor and trend electrolytes VTE/GI prophylaxis Discharge Plan: Home Plan to discharge in: 24 Hours - Advance Directives Does patient have a Living Will: No Does patient have a Durable POA for Healthcare: No - Code Status/Comfort Care Code Status Assessed: Yes (Full)
[2024-02-15] MEDS ORDERED: ONDANSETRON 4 MG/2 ML VIAL IV PRN (15:25)
[2024-02-15] MEDS: NA CHLORIDE 0.9% 1,000 ML IV SCH (16:00)
[2024-02-15] MEDS ORDERED: NA CHLORIDE 0.9% 1,000 ML IV SCH (16:00)
[2024-02-15] MEDS ORDERED: droPERidol 5 MG/2 ML VIAL IV PRN (16:15)
[2024-02-15 19:35] VITALS: BMI 28.5
[2024-02-15] MEDS: METOPROLOL TAR 50 MG TAB PO SCH (19:54)
[2024-02-15] MEDS: HYDROMORPHONE HCL 0.5 MG/0.5 ML INJ IV PRN (19:55)
[2024-02-15] MEDS ORDERED: ATORVASTATIN 20 MG TAB PO SCH (21:00)
[2024-02-15] MEDS ORDERED: ATORVASTATIN 40 MG TAB PO SCH (21:00)
[2024-02-15] MEDS: ALPRAZOLAM 0.25 MG TABLET PO PRN (21:44)
[2024-02-15 22:37] VITALS: O2SAT 100
[2024-02-15] MEDS: ZOLPIDEM TARTRATE 10 MG TABLET PO PRN (23:19)
[2024-02-16] MEDS: ENOXAPARIN 40 MG/0.4 ML SQ SCH (02:34)
[2024-02-16 05:42] LABS: Absolute Eosinophils 0.2 K/uL (0-0.5); Absolute Lymphocytes (CBC) 2.6 K/uL (0.7-4.9); Absolute Monocytes 0.7 K/uL (0.1-1.3); Absolute Neutrophil 4.5 K/uL (1.8-8.0); Basophils % 0.4 % (0-1.3); Eosinophils % 2.2 % (0-4.4); Hematocrit 39.1 % (36.0-45.0); Hemoglobin 13.2 g/dL (12.0-15.0); Lymphocytes % 32.3 % (15.3-44.8); MCH 29.8 pg (27.0-35.0); MCHC 33.8 g/dL (32.0-36.0); MCV 88.1 fL (80-100); MPV 9.2 fL (7.6-11.3); Monocytes % 8.7 % (3.3-12.3); Neutrophils % 56.4 % (41.7-73.7); Nucleated Red Blood Cells % 0.1 % (0-0); Platelets 259 thou/uL (152-406); RBC Red Blood Cell Count 4.44 M/uL (3.86-4.86); Red Cell Distribution Width 13.9 % (12.1-15.2)
[2024-02-16 06:05] LABS: ALT/SGPT < 14 U/L (13-56); AST/SGOT < 10 U/L (15-37); Albumin/Globulin Ratio 0.9 (1.1-1.8); Alkaline Phosphatase 102 U/L (45-117); Anion Gap 7.5 mEq/L (5.0-15.0); BUN Blood Urea Nitrogen 15 mg/dL (7-18); Bicarbonate 28 mEq/L (21-32); Bilirubin Total 0.4 mg/dL (0.2-1.0); Globulin 3.2 g/dL (2.3-3.5); Glomerular Filtration Rate 73 ml/min (=/>90); Glucose Level 96 mg/dL (74-106); HDL Cholesterol 43 mg/dL (40-60); LDL Cholesterol, Calculated 119 mg/dL (<130); LDL Cholesterol,Calc NonReport 119; Magnesium 2.2 mg/dL (1.6-2.4); Phosphorus 4.7 mg/dL (2.5-4.9); Potassium 4.5 mEq/L (3.5-5.1); Protein, Total 6.2 g/dL (6.4-8.2); Sodium Level 139 mEq/L (136-145)
[2024-02-16] MEDS: ACETAMINOPHEN 500 MG TAB PO PRN (06:32)
[2024-02-16] MEDS: ASPIRIN EC 81 MG TAB PO SCH (08:12)
[2024-02-16] MEDS: ISOSORBIDE MONO SR 30 MG TAB PO SCH (08:12)
--- NOTE | 2024-02-16 11:07 | RAD REPORT ---
EXAMINATION: MRI BRAIN WITHOUT CONTRAST CLINICAL INDICATION: Acute CVA TECHNIQUE: Multiplanar multisequence MR images of the brain were obtained without intravenous contras t. Unless otherwise specified, incidental findings do not require dedicated imaging follow-up. COMPARISON: February 15, 2024 FINDINGS: No significant abnormal signal within the brain. Diffusion weighted/ADC mapping does not demonstrate evidence of an acute infarction. Ventricles are normal caliber. No extra-axial fluid collection. No fluid within the sinuses/mastoid seen IMPRESSION: No acute abnormalities displayed
[2024-02-16 12:02] VITALS: BP 96/59; TEMP 97.3
--- NOTE | 2024-02-16 12:20 | EKG ---
Test Date: 2024-02-15 Test Time: 14:10:22 Commodity Supervisor: FAHAD MEASUREMENT RESULTS: Intervals: Rate: 96 FL: 128 QRSD: 76 QT: 372 QTc: 469 [place]: P: 71 FL: 128 QRS: 72 T: 59 INTERPRETIVE STATEMENTS: Normal sinus rhythm Normal ECG Compared to ECG 01/15/2024 10:41:49 No significant changes Electronically Signed On 02-16-24 12:17:01 CORPORATE SPECIALIST by Ari Lawton
--- NOTE | 2024-02-16 12:37 | P.DS ---
Admission Date: 02/15/24 Discharge Date: 02/16/24 Disposition: ROUTINE DISCHARGE Discharge Condition: GOOD Reason for Admission: Weakness, paresthesias, headache Brief History of Present Illness: Ms. Perez is a 43-year-old female with a past medical history of type II [place], recent cath with clean coronaries, anxiety, depression, and migraines. She presented to the ED emergency department with a chief complaint of left-sided paresthesias and weakness to her left upper extremity yesterday and then encompassing her left lower extremity today. She describes a sharp right parietal headache. She has had multiple vascular workups in the past and takes metoprolol 50 mg p.o. twice daily and Imdur 30 mg p.o. daily. She and her state that she has never had a seizure, when asked if she has had an EEG in the past she states she does not think so; but, her states she had 1 at [facility] during a 5-day admission for similar signs and symptoms about a year ago. CT head, CTA head and neck in the emergency department negative for acute findings, chest x-ray clear, hemoglobin 14.7/44.1, electrolytes and troponin negative. GCS 15, NIHSS 4, for mild drift of left upper and lower extremity with altered sensation to each. She will be admitted for observation for neurochecks, stroke scale each shift, and consultation with Dr. Qiu. Will try to obtain a MRI of the brain tomorrow Hospital Course: No abnormalities noted on imagining. MRI also clear. Mrs. Perez needs outpatient follow up with neurology for continued, intermittent neurological episodes. Vital signs are stable and she is stable for discharge home. Vital Signs/Physical Exam: Temp Pulse Resp BP Pulse Ox 97.3 F 61 16 96/59 L 97 02/16/24 12:00 02/16/24 12:00 02/16/24 12:00 02/16/24 12:00 02/16/24 12:00 General: Alert, In no apparent distress, Oriented x3 HEENT: Atraumatic, Normocephalic, PERRLA Neck: Supple Respiratory: Clear to auscultation bilaterally, Normal air movement Cardiovascular: Regular rate/rhythm, Normal S1 S2 Capillary refill: <2 Seconds Gastrointestinal: Normal bowel sounds, Soft and benign Musculoskeletal: No clubbing, No swelling Integumentary: No rashes, No tenderness/swelling Neurological: Normal gait, Normal speech, Normal tone, Normal affect Lymphatics: No axilla or inguinal lymphadenopathy External genitalia: Deferred Rectal: Deferred Laboratory Data at Discharge: WBC 7.90 thou/uL (4.3-10.9) 02/16/24 05:16 Hgb 13.2 g/dL (12.0-15.0) D 02/16/24 05:16 Hct 39.1 % (36.0-45.0) 02/16/24 05:16 Plt Count 259 thou/uL (152-406) 02/16/24 05:16 PT 11.3 SECONDS (9.4-12.5) 02/15/24 11:16 INR 1.01 02/15/24 11:16 APTT 35.2 SECONDS (24.3-36.9) 02/15/24 11:16 Sodium 139 mEq/L (136-145) 02/16/24 05:16 Potassium 4.5 mEq/L (3.5-5.1) 02/16/24 05:16 BUN 15 mg/dL (7-18) 02/16/24 05:16 Creatinine 0.98 mg/dL (0.55-1.02) 02/16/24 05:16 Glucose 96 mg/dL (74-106) 02/16/24 05:16 Phosphorus 4.7 mg/dL (2.5-4.9) 02/16/24 05:16 Magnesium 2.2 mg/dL (1.6-2.4) 02/16/24 05:16 Total Bilirubin 0.4 mg/dL (0.2-1.0) 02/16/24 05:16 AST < 10 U/L (15-37) L 02/16/24 05:16 ALT < 14 U/L (13-56) 02/16/24 05:16 Alkaline Phosphatase 102 U/L (45-117) 02/16/24 05:16 Triglycerides 129 mg/dL (<150) 02/16/24 05:16 Cholesterol 188 mg/dL (<200) 02/16/24 05:16 HDL Cholesterol 43 mg/dL (40-60) 02/16/24 05:16 Cholesterol/HDL Ratio 4.37 02/16/24 05:16 Home Medications: Hydrocodone 5/APAP 325 [[place] 5/325*] 1 tab PO Q6H PRN #12 tab 04/27/23 Zolpidem Tartrate [Ambien*] 10 mg PO BEDTIME 04/27/23 Alprazolam [Xanax] 1 mg PO TID* 09/10/23 Cariprazine HCl [Vraylar] 3 mg PO DAILY 09/10/23 Isosorbide Mononitrate [Isosorbide Mononitrate ER] 30 mg PO DAILY #30 tab 09/15/23 Metoprolol Tartrate 50 mg PO BID 02/15/24 Semaglutide [Wegovy] 90 units SQ EVERY 7TH DAY 02/15/24 Vortioxetine Hydrobromide [Trintellix] 15 mg PO BEDTIME 02/15/24 Physician Discharge Instructions: No abnormalities noted on imagining. MRI also clear. Mrs. Perez needs outpatient follow up with neurology for continued, intermittent neurological episodes. Vital signs are stable and she is stable for discharge home. Diet: Regular Activity: Ad francine Followup: Leif Qiu MD [ASSOCIATE-ACTIVE - CAN ADMIT] - 1-2 Weeks Edd Friedman MD [Primary Care Provider] - 1-2 Weeks
== END 2024-02-16 14:12 | disposition home or self-care (01) ==
LOC: ER 10:24 → ERHOLD 15:25 → 2ND 17:01
PROVIDERS: ADMIT Hospitalist; ATTEND Hospitalist
DX: R20.2 Paresthesia of skin (principal); R53.1 Weakness; R51.9 Headache, unspecified; F41.9 Anxiety disorder, unspecified; F32.A Depression, unspecified; G43.909 Migraine, unspecified, not intractable, without status migrainosus; I25.2 Old myocardial infarction; I10 Essential (primary) hypertension
CPT/HCPCS: 93005; 85025 ×2; 80048; 36415; 83735 ×2; 84100; 85610; 80061; 82565; 80076; 85730; 84443; 84484; 84439; 80053; 80307; 70496; 70498; 70450; 71045; 70551; Q9967; J2765; J1200; J1650; J1171 ×3; J7030 ×2; 96374; 96375; 99285; G0378

== ENCOUNTER → 2024-06-14 | Day surgery (SDC) | payer BC ==
[2011-12-25 15:16] VITALS: BP 108/62
--- NOTE | 2024-06-15 10:46 | RAD REPORT ---
PROCEDURE: ULTRASOUND GUIDED BIOPSY Pre-procedure diagnosis: Enlarged left cervical chain lymph node Post-procedure diagnosis: Same as above. CLINICAL INDICATION: I88.1 COMPLICATIONS: No immediate complications. IMPRESSION: Percutaneous ultrasound-guided Core needle biopsy of a left level 2 cervical chain lymph node PROCEDURE DETAILS: Consent: Informed consent for the procedure including risks, benefits and alternatives was obtained a nd time-out was performed prior to the procedure. Preparation: The site was prepared and draped using all elements of maximal sterile barrier technique including sterile gloves, sterile gown, cap, mask, large sterile sheet, sterile ultrasound probe cover as needed, hand hygiene and cutaneous antisepsis with 2% chlorhexidine. Sedation: None Biopsy: Local anesthesia was administered. Under ultrasound guidance, the 17-gauge coaxial needle was advanced to the target and biopsy was performed using an 18-gauge core biopsy device. The biopsy needle was removed and a sterile dressing was applied. [id number]. Number of specimens: 4 On-site biopsy touch preparation: None. Additional sampling description: None. Preliminary assessment of sample adequacy: Not applicable. Tract embolization: None. Post-biopsy imaging findings: No immediate complications seen. Contrast used: None. Estimated blood loss: Less than 10 mL.
== END ==
LOC: FNA 13:34
PROVIDERS: ATTEND Otolaryngology Facial Plastic Surgery
PROC: 07923ZX Drainage of Left Neck Lymphatic, Percutaneous Approach, Diagnostic (ICD-10-PCS; principal; 2024-06-14)
DX: I88.1 Chronic lymphadenitis, except mesenteric (principal)
CPT/HCPCS: 38505; 76942; 88305

== ENCOUNTER 2024-06-30 08:28 | Day surgery (SDC) | payer BC ==
[2024-06-28 14:25] LABS: Anion Gap 6.8 mEq/L (5.0-15.0); Potassium 3.8 mEq/L (3.5-5.1)
--- NOTE | 2024-06-29 12:30 | EKG ---
Test Date: 2024-06-28 Test Time: 14:01:02 Appliance Service Supervisor: YAHAIRA MEASUREMENT RESULTS: Intervals: Rate: 86 ND: 116 QRSD: 72 QT: 356 QTc: 426 Burke: P: 82 ND: 116 QRS: 85 T: 73 INTERPRETIVE STATEMENTS: Normal sinus rhythm Nonspecific T wave abnormality Abnormal ECG Compared to ECG 02/15/2024 14:10:22 T-wave abnormality now present Electronically Signed On 06-29-24 12:25:46 CDT by Ari Lawton
[2024-06-30] MEDS: Ringers Lactate 1,000 ML IV ONE (09:00)
[2024-06-30] MEDS ORDERED: ONDANSETRON 4 MG/2 ML VIAL ONE (09:17)
[2024-06-30] MEDS ORDERED: LIDOCAINE 2% MPF 5 ML VIAL ONE (09:17)
[2024-06-30] MEDS ORDERED: propofoL 200 MG/20 ML VIAL IV ONE (09:18)
[2024-06-30] MEDS ORDERED: MIDAZOLAM HCL 2 MG/2 ML INJ ONE (09:18)
[2024-06-30] MEDS ORDERED: FENTANYL CITR 100 MCG/2 ML ONE (09:18)
[2024-06-30] MEDS ORDERED: ROCURONIUM 50 MG/5 ML VIAL IV ONE (09:18)
[2024-06-30] MEDS ORDERED: SUCCINYLCHOLINE 20 MG/ML (10 ML) IV ONE (09:22)
[2024-06-30] MEDS ORDERED: HYDROMORPHONE HCL 1 MG/ML INJ ONE ×2 (10:59→14:46)
[2024-06-30] MEDS ORDERED: dexAMETHasone 10 MG/ML VIAL ONE (11:35)
[2024-06-30] MEDS ORDERED: EPHEDRINE SULF 50 MG/ML VIAL ONE (11:35)
[2024-06-30] MEDS: CEFAZOLIN SODIUM 2 GM/VIAL ONE (11:37)
[2024-06-30] MEDS: LIDOCAINE HCL/EPINEPHRINE 20 ML MDV ONE (11:40)
[2024-06-30] MEDS: NA CHLORIDE 0.9% 500 ML ONE (14:03)
[2024-06-30 16:03] VITALS: BP 117/78; TEMP 97.8; O2SAT 99
--- NOTE | 2024-07-06 12:04 | OP ---
Date of Procedure: 06/30/2024 Surgeon: GREGORY HUMPHREY Preoperative Diagnosis: Chronic cervical lymphadenitis, except mesentery. Postoperative Diagnosis: Chronic cervical lymphadenitis, except mesentery. Procedure: Excisional biopsy of deep cervical lymph nodes of left level 1A cervical neck. Anesthesia: General endotracheal anesthesia administered. I also infiltrated approximately 10 mL of 1% lidocaine with 1:100,000 epinephrine at the incision site. Estimated Blood Loss: Less than 5 mL. Specimens: Specimens obtained from left level 1A cervical neck and submitted to pathology as fresh s [email or web address]. Findings: Several lymph nodes imbedded in fatty tissue removed from left level 1A neck. The patient had normal-appearing submandibular gland and no cystic or solid tissue mass seen in this area. Complications: None. Disposition: Stable. The patient tolerated procedure well. Indication For Procedure: The patient is a pleasant 43-year-old female, who initially presented with vitamin D deficiency and primary hyperparathyroidism, who reportedly had swelling of bilateral upper neck and globus sensation with difficulty swallowing. A CT scan of soft tissue neck with contrast o n 05/31/2024 revealed multiple enlarged lymph nodes located in bilateral high jugular chain and low j ugular chain and multiple lymph nodes in bilateral level 1 neck in the submandibular region. These w ere indications to bring the patient to operative suite for the above-mentioned procedure. We had in itially attempted a fine-needle aspiration of one of the nodes, but there was positive cellularity of the node and diagnosis could not be obtained, but we did get a result that revealed abnormal B cells , thus these were indications to bring the patient to operative suite for the above-mentioned procedu re. She understood. All questions were answered. Risks versus benefits and complications were expl ained in detail and a consent form was signed, which was placed in the chart. Description Of Procedure: The patient was transferred from the preoperative holding area to the oper ative suite by Department of Anesthesia, placed on the operating room table supine, sedated and intub ated in normal fashion. I infiltrated approximately 10 mL of 1% lidocaine with 1:100,000 epinephrine into the left upper neck incision. The patient was then sterilely prepped and draped. A horizontal neck incision was made approximately 2 cm below the left rim of the mandible and #15 venancio de scalpel was used to make the initial incision. I then used monopolar electrocautery down to the p latysma and then switched over to the ligature for division of the platysma and subplatysmal dissecti on. The patient had above-average amount of fat tissue, but I believe I felt several lymph nodes imb edded in the fatty tissue and the specimens were sent fresh. I directly visualized and excised a lym ph node that was at least 0.5 cm embedded in fatty tissue and this was submitted. The inferior edge of the submandibular gland was lifted anteriorly. I did not see any lymph nodes behind the submandib ular gland. The digastric tendon anterior and posterior were visualized. I did not see any cystic m ass lesion located in this area and the gland itself was soft with no induration or palpable mass. I did dissect down to the hyoid bone and I did not detect any lower level 1 lymph nodes. Once all are as were examined carefully, I then irrigated the wound bed with saline and then I reapproximated the platysma and subcutaneous tissue with 3-0 Vicryl in a simple interrupted fashion. The dermal tissue was reapproximated in a simple interrupted fashion with 4-0 Monocryl and then the epidermal incision was reapproximated in a subcuticular fashion with 4-0 Monocryl. A compressive dressing was placed. No drain was needed. She tolerated the procedure well, will be discharged home on antibiotic and analgesic medication, and will follow up in 1 week or sooner if needed. JOAQUÍN/ALEKSANDR Voice ID: [id number] Report ID: [id number]
== END 2024-06-30 16:15 | disposition home or self-care (01) ==
LOC: OR 08:28
PROVIDERS: ATTEND Otolaryngology Facial Plastic Surgery
PROC: 07B20ZX Excision of Left Neck Lymphatic, Open Approach, Diagnostic (ICD-10-PCS; principal; 2024-06-30 10:45)
DX: I88.1 Chronic lymphadenitis, except mesenteric (principal); D76.3 Other histiocytosis syndromes
CPT/HCPCS: 38510; 93005; 80048; 36415; 88305 ×2; J2704; J2003; J2250; J3010; J1100; J1171 ×2; J2405; J7120; J7040

== ENCOUNTER 2024-07-28 08:51 | Emergency (ER) | payer BC ==
[2024-07-28 09:46] LABS: Absolute Eosinophils 0.1 K/uL (0-0.5); Absolute Lymphocytes (CBC) 2.1 K/uL (0.7-4.9); Absolute Monocytes 0.8 K/uL (0.1-1.3); Absolute Neutrophil 5.8 K/uL (1.8-8.0); Basophils % 0.3 % (0-1.3); Eosinophils % 1.2 % (0-4.4); Hematocrit 41.6 % (36.0-45.0); Hemoglobin 14.4 g/dL (12.0-15.0); Lymphocytes % 24.3 % (15.3-44.8); MCH 30.1 pg (27.0-35.0); MCHC 34.5 g/dL (32.0-36.0); MCV 87.2 fL (80-100); MPV 9.4 fL (7.6-11.3); Monocytes % 9.1 % (3.3-12.3); Neutrophils % 65.1 % (41.7-73.7); Platelets 254 thou/uL (152-406); RBC Red Blood Cell Count 4.77 M/uL (3.86-4.86); Red Cell Distribution Width 13.5 % (12.1-15.2)
[2024-07-28] MEDS ORDERED: ONDANSETRON 4 MG/2 ML VIAL ONE (09:51)
[2024-07-28] MEDS ORDERED: MORPHINE 4 MG/ML SYR ONE (09:51)
[2024-07-28] MEDS ORDERED: FAMOTIDINE 20 MG/2 ML VIAL IV ONE (09:51)
[2024-07-28 10:06] LABS: Specific Gravity 1.005 (1.005-1.030)
[2024-07-28 10:14] LABS: Specific Gravity 1.005 (1.005-1.030); Sqamous Epithelial <5 /HPF (None Seen); Urine Bacteria <20 /HPF (<20); Urine Bilirubin NEGATIVE (Negative); Urine Blood Negative (Negative); Urine Clarity Turbid (Clear); Urine Color Colorless (Yellow); Urine Culture Reflex Order NOT NEEDED; Urine Glucose NEGATIVE (Negative); Urine Ketones NEGATIVE (Negative); Urine Microscopic Reflex YN ORDER UMIC; Urine Nitrite NEGATIVE (Negative); Urine Protein NEGATIVE (Negative); Urine RBC <5 /HPF (None Seen); Urine Urobilinogen Normal (Normal); Urine WBC <5 /HPF (<5); Urine pH 6.5 (5.0-7.0)
[2024-07-28 10:26] LABS: ALT/SGPT 17 U/L (13-56); Albumin 3.5 g/dL (3.4-5.0); Albumin/Globulin Ratio 0.9 (1.1-1.8); Alkaline Phosphatase 134 U/L (45-117); BUN Blood Urea Nitrogen 8 mg/dL (7-18); Bicarbonate 30 mEq/L (21-32); Bilirubin Total 0.2 mg/dL (0.2-1.0); Globulin 3.8 g/dL (2.3-3.5); Glomerular Filtration Rate 81 ml/min (=/>90); Glucose Level 95 mg/dL (74-106); Lipase 51 U/L (13-75); Protein, Total 7.3 g/dL (6.4-8.2); Sodium Level 140 mEq/L (136-145)
[2024-07-28] MEDS ORDERED: CEFTRIAXONE 1000 MG/VIAL ONE (11:04)
[2024-07-28] MEDS ORDERED: NA CHLORIDE 0.9% 50 ML ONE (11:04)
[2024-07-28 11:05] LABS: AST/SGOT < 10 U/L (15-37)
--- NOTE | 2024-07-28 11:05 | RAD REPORT ---
EXAMINATION: CT Abdomen Pelvis W Contrast CLINICAL INDICATION: Female, 43 years old. ABD PAIN TECHNIQUE: CT abdomen and pelvis was performed, after the administration of IV [facility] Axial, sagittal and coronal reconstructions were obtained. One or more of the following dose reduction techniques were used: Automated exposure control, adjustment of the mA and k V according to patient size, and iterative reconstruction. Unless otherwise specified, incidental findings do not require dedicated imaging follow-up. COMPARISON: 06/16/2023 FINDINGS: LOWER CHEST: Right more than left patchy groundglass opacities. LIVER: Normal in size and contour. No focal lesion. BILIARY SYSTEM: Compressed gallbladder limiting evaluation. No suspicious abnormalities. SPLEEN: Normal size. No focal lesion. PANCREAS: No mass, ductal dilation, or christiane-pancreatic fluid. ADRENALS: Normal; no mass. KIDNEYS: Normal size and contour. No hydronephrosis. URINARY BLADDER: Unremarkable. GASTROINTESTINAL TRACT: No evidence of free air, significant intra-abdominal free fluid, bowel obstru ction or abscess. APPENDIX: Normal appendix. LYMPH NODES: No lymphadenopathy. MUSCULOSKELETAL: No acute or suspicious osseous abnormality. ADDITIONAL FINDINGS: None. IMPRESSION: Bibasilar groundglass opacities more so on the right, concerning for pneumonitis. No acute or concerning abnormalities seen within the abdomen or pelvis.
--- NOTE | 2024-07-28 11:13 | EDPHYS ---
Physician Documentation [facility] Name: Yohana Perez Age: 43 yrs Sex: Female : 1980 Arrival Date: 07/28/2024 Time: 08:51 Bed 15 Private MD: ED Physician Ann Sims HPI: 07/28 09:18 This 43 yrs old Female presents to ER via Unassigned with complaints of sw6 Abdominal Pain. 09:18 The patient presents with abdominal pain. Onset: The symptoms/episode began/occurred sw6 yesterday. The symptoms do not radiate. Associated signs and symptoms: Pertinent positives: nausea, Pertinent negatives: diarrhea, dysuria, fever, vomiting. The patient has not experienced similar symptoms in the past. The patient presents with mom for evaluation for left side abdominal that started yesterday. She was able to sleep during the night however the pain continued this morning. She has nausea but no vomiting. No fevers or chills. No diarrhea. No dysuria or hematuria. She reports her last menstrual period was when she was 37 years old. She did try a laxative at home but reports it did not help her. She did not eat or drink today. She had prior sections but no other abdominal surgeries. No chest pain or pressure. No shortness of breath. No cough, congestion or URI symptoms. Here for evaluation.. 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 - Infectious Disease History:: Denies. - Social history:: Smoking status: Reported history of juuling and/or vaping. ROS: 09:18 Constitutional: Negative for fever, chills, and weight loss, Cardiovascular: Negative sw6 for chest pain, palpitations, and edema, Respiratory: Negative for shortness of breath, cough, wheezing, and pleuritic chest pain, Back: Negative for injury and pain, MS/Extremity: Negative for injury and deformity, Skin: Negative for injury, rash, and discoloration, 09:18 Abdomen/GI: Positive for abdominal pain, nausea, Negative for vomiting, diarrhea, 09:18 All other systems are negative, Exam: 09:18 Constitutional: This is a well developed, well nourished patient who is awake, alert, sw6 and in no acute distress. Head/Face: Normocephalic, atraumatic. Neck: Trachea midline, no thyromegaly or masses palpated, and no cervical lymphadenopathy. Supple, full range of motion without nuchal rigidity, or vertebral point tenderness. No Meningismus. Chest/axilla: Normal chest wall appearance and motion. Nontender with no deformity. No lesions are appreciated. Cardiovascular: Regular rate and rhythm with a normal S1 and S2. No gallops, murmurs, or rubs. Normal PMI, no JVD. No pulse deficits. Respiratory: Lungs have equal breath sounds bilaterally, clear to auscultation and percussion. No rales, rhonchi or wheezes noted. No increased work of breathing, no retractions or nasal flaring. Neuro: Awake and alert, GCS 15, oriented to person, place, time, and situation. Cranial nerves II-XII grossly intact. Motor strength 5/5 in all extremities. Sensory grossly intact. Cerebellar exam normal. Normal gait. Psych: Awake, alert, with orientation to person, place and time. Behavior, mood, and affect are within normal limits. 09:18 Abdomen/GI: Inspection: abdomen appears normal, Bowel sounds: normal, in all quadrants, Palpation: soft, in all quadrants, mild abdominal tenderness, in the left upper quadrant and left lower quadrant, rebound tenderness, is not appreciated, Vital Signs: 09:00 BP 121 / 93; Pulse 101; Resp 18 S; Temp 98.4(O); Pulse Ox 100% on R/A; Weight 72.57 kg aa5 (R); Height 5 ft. 5 in. (R); 10:04 BP 117 / 90; Pulse 91; Resp 17; Pulse Ox 100% ; ap3 11:26 BP 135 / 97; Pulse 79; Resp 17; Temp 98.6; Pulse Ox 100% on R/A; ap3 11:26 Pain 6/10; ap3 09:00 Body Mass Index 26.63 (72.57 kg, 165.1 cm) aa5 11:26 Pain Scale: Adult ap3 MDM: 09:17 Medical Screening Exam initiated 09:18 Differential diagnosis: bowel obstruction, Cholelithiasis, diverticulitis, gastritis, sw gastroesophageal reflux disease, pancreatitis, Peptic Ulcer Disease, urinary tract infection. 11:08 Data reviewed: lab test result(s), amylase and lipase, CBC, electrolytes, urinalysis, UPT: radiologic studies, CT scan. ED course: The patient is doing well her near. Her laboratory studies show no leukocytosis. Her urinalysis shows an infection with leukocyte Estrace. Her UPT is negative. A CT of her abdomen and pelvis is suggestive of pneumonitis for which the patient has no clinical signs or symptoms. There is no other acute intra-abdominal pathology seen on the CT of her abdomen and pelvis. She was given a dose of antibiotics here in the ER for her UTI. She remained stable here in the ER and is okay for discharge home with PCP follow-up.. 07/28 09:17 Order name: CBC with Diff; Complete Time: 10:14 07/28 10:14 Interpretation: Within normal limits. 07/28 09:17 Order name: CMP; Complete Time: 11:07 07/28 11:08 Interpretation: Within normal limits. 07/28 09:17 Order name: Lipase; Complete Time: 11:07 07/28 11:08 Interpretation: Within normal limits. 07/28 09:17 Order name: Test, Urine; Complete Time: 10:14 07/28 10:15 Interpretation: Within normal limits. 07/28 09:17 Order name: Urinalysis w/ reflexes; Complete Time: 10:56 07/28 10:57 Interpretation: Abnormal: Leukocyte esterase. 07/28:17 Order name: CT Abd/Pelvis - IV Contrast Only; Complete Time: 11:07 07/28 11:08 Interpretation: Abnormal. 07/28:17 Order name: IV Saline Lock; Complete Time: 09:40 07/28:17 Order name: Labs collected and sent; Complete Time: 09:40 Administered Medications: 10:02 Drug: Famotidine IVP 20 mg IVP once; dilute with 10 mL 0.9% NaCl; give over 2 minutes ap3 Route: IVP; Site: right antecubital; 10:44 Follow up: Response: No adverse reaction ap3 10:02 Drug: Ondansetron IVP 4 mg IVP once; over 2 minutes Route: IVP; Site: right antecubital;ap3 10:44 Follow up: Response: No adverse reaction; Nausea is decreased ap3 10:02 Drug: morphine IVP or IV 4 mg IVP once over 4 mins Route: IVP; Infused Over: 4 mins; ap3 Site: right antecubital; 10:44 Follow up: Response: No adverse reaction; Pain is decreased ap3 11:08 Drug: Rocephin IV 1 grams IV at calculated rate once; Given slow IV push per pharmacy ap3 instructions Route: IV; Rate: calculated rate; Site: right antecubital; 11:28 Follow up: IV Status: Completed infusion; IV Intake: 50ml ap3 11:26 Drug: Phenazopyridine PO 100 mg PO once Route: PO; ap3 11:26 Follow up: Response: Medication administered at discharge. ap3 Disposition Summary: 07/28/24 11:13 Discharge Ordered Notes: Location: Home 6 Condition: Stable 6 Diagnosis - UTI/ Urinary tract infection, site not specified sw6 - Abdominal pain, Generalized sw6 Discharge Instructions: - Discharge Summary Sheet 6 Forms: - Medication Reconciliation Form sw6 - Antibiotic Education sw6 - Prescription Opioid Use sw6 - Patient Portal Instructions sw6 - Leadership Thank You Letter 6 Prescriptions: - Pyridium 200 mg Oral Tablet - take 1 tablet ORAL route every 8 hours for 3 days; 9 tablet; Refills: 0, 6 Product Selection Permitted - cefpodoxime 100 mg Oral Tablet - take 1 tablet ORAL route every 12 hours for 10 days take with food; 20 tablet; sw6 Refills: 0, Product Selection Permitted Signatures: Dispatcher [employer] Tianna Cates RN RN tran5 Elise Forde RN RN ap3 Ann Sims MD MD 6 Corrections: (The following items were deleted from the chart) 10:57 10:14 Within normal limits. 6 6
--- NOTE | 2024-07-28 11:13 | ER ---
Nurse's Notes [facility] Name: Yohana Perez Age: 43 yrs Sex: Female : 1980 Arrival Date: 07/28/2024 Time: 08:51 Bed 15 Private MD: Diagnosis: UTI/ Urinary tract infection, site not specified;Abdominal pain, Generalized Presentation: 07/28 09:00 Chief complaint: Patient states: LLQ and umbilical pain that began last night, also aa5 reports nausea, denies vomiting/denies diarrhea. 09:00 Coronavirus screen: nausea. Ebola Screen: Patient denies travel to an Ebola-affected [facility] area in the 21 days before illness onset. Initial Sepsis Screen: Does the patient meet any 2 criteria? HR > 90 bpm. Does the patient have a suspected source of infection? No. Patient's initial sepsis screen is negative. Risk Assessment: Do you want to hurt yourself or someone else? Patient reports no desire to harm self or others. Onset of symptoms was July 2024. 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 - Infectious Disease History:: Denies. - Social history:: Smoking status: Reported history of juuling and/or vaping. Screenin:03 [facility] ED Fall Risk Assessment (Adult) History of falling in the last 3 months, ap3 including since admission No falls in past 3 months (0 pts) Confusion or Disorientation No (0 pts) Intoxicated or Sedated No (0 pts) Impaired Gait No (0 pts) Mobility Assist Device Used No (0 pt) Altered Elimination No (0 pt) Score/Fall Risk Level 0 - 2 = Low Risk Oriented to surroundings, Maintained a safe environment, Educated pt \T\ family on fall prevention, incl call for assistance when getting out of bed, Assessed \T\ reinforced patient's understanding of fall precautions, Hourly rounding (assess needs \T\ fall precautionary measures) done, Used ambulatory aids as needed (educated on \T\ assisted with). Abuse screen: Denies threats or abuse. Nutritional screening: No deficits noted. Tuberculosis screening: No symptoms or risk factors identified. Assessment: 10:03 General: Appears in no apparent distress. Behavior is calm, cooperative, appropriate ap3 for age. Pain: Complains of pain in left lower quadrant and left upper quadrant Pain currently is 9 out of 10 on a pain scale. Neuro: Level of Consciousness is awake, alert, obeys commands, Oriented to person, place, time, situation. Cardiovascular: Patient's skin is warm and dry. Respiratory: Airway is patent Respiratory effort is even, unlabored, Respiratory pattern is regular, symmetrical. GI: Abd is soft Reports lower abdominal pain. Vital Signs: 09:00 BP 121 / 93; Pulse 101; Resp 18 S; Temp 98.4(O); Pulse Ox 100% on R/A; Weight 72.57 kg aa5 (R); Height 5 ft. 5 in. (R); 10:04 BP 117 / 90; Pulse 91; Resp 17; Pulse Ox 100% ; ap3 11:26 BP 135 / 97; Pulse 79; Resp 17; Temp 98.6; Pulse Ox 100% on R/A; ap3 11:26 Pain 6/10; ap3 09:00 Body Mass Index 26.63 (72.57 kg, 165.1 cm) aa5 11:26 Pain Scale: Adult ap3 ED Course: 08:53 Patient arrived in ED. gl 09:00 Arm band placed on Patient placed in an exam room, on a stretcher. aa5 09:01 Ann Sims MD is Attending Physician. sw6 09:34 Triage completed. aa5 09:40 Initial lab(s) drawn, by co, sent to lab. Inserted saline lock: 20 gauge in right zm antecubital area, using aseptic technique. Blood collected. Flushed with 10 mL NS. 09:40 CBC with Diff Sent. zm 09:40 CMP Sent. zm 09:40 Lipase Sent. zm 09:40 Urinalysis w/ reflexes Sent. zm 09:40 Test, Urine Sent. zm 09:41 Urine collected: clean catch specimen, clear. zm 09:52 Elise Forde RN is Primary Nurse. ap3 10:04 Patient has correct armband on for positive identification. Bed in low position. Call ap3 light in reach. Side rails up X2. Pulse ox on. NIBP on. 10:37 CT Abd/Pelvis - IV Contrast Only In Process Unspecified. EDMS 11:27 Provided Education on: discharge instructions . ap3 11:27 No provider procedures requiring assistance completed. IV discontinued, intact, ap3 bleeding controlled, No redness/swelling at site. Pressure dressing applied. Administered Medications: 10:02 Drug: Famotidine IVP 20 mg IVP once; dilute with 10 mL 0.9% NaCl; give over 2 minutes ap3 Route: IVP; Site: right antecubital; 10:44 Follow up: Response: No adverse reaction ap3 10:02 Drug: Ondansetron IVP 4 mg IVP once; over 2 minutes Route: IVP; Site: right antecubital;ap3 10:44 Follow up: Response: No adverse reaction; Nausea is decreased ap3 10:02 Drug: morphine IVP or IV 4 mg IVP once over 4 mins Route: IVP; Infused Over: 4 mins; ap3 Site: right antecubital; 10:44 Follow up: Response: No adverse reaction; Pain is decreased ap3 11:08 Drug: Rocephin IV 1 grams IV at calculated rate once; Given slow IV push per pharmacy ap3 instructions Route: IV; Rate: calculated rate; Site: right antecubital; 11:28 Follow up: IV Status: Completed infusion; IV Intake: 50ml ap3 11:26 Drug: Phenazopyridine PO 100 mg PO once Route: PO; ap3 11:26 Follow up: Response: Medication administered at discharge. ap3 Medication: 11:27 VIS not applicable for this client. ap3 Intake: 11:28 IV: 50ml; Total: 50ml. ap3 Outcome: 11:13 Discharge ordered by swMay 11:27 Discharged to to lobby to wait for ride ap3 11:27 Condition: good 11:27 Discharge instructions given to patient, Instructed on discharge instructions, follow up and referral plans. medication usage, Demonstrated understanding of instructions, follow-up care, medications, Prescriptions given X 2, 11:27 Patient left the ED. ap3 Signatures: Dispatcher [employer] EDMS Tianna Henry RN RN aa5 Elise Forde, RN RN ap3 Pearl Rodriguez Sandra, MD MD sw6 Jagruti Gordon, Reg Reg gl
[2024-07-28] MEDS ORDERED: PHENAZOPYRIDINE 100MG TAB PO ONE (11:17)
[2024-07-28 11:56] VITALS: O2SAT 100
[2024-07-28 11:59] VITALS: BP 135/97; TEMP 98.6
== END 2024-07-28 11:27 | disposition home or self-care (01) ==
LOC: ER 08:51
DX: N39.0 Urinary tract infection, site not specified (principal); R10.84 Generalized abdominal pain
CPT/HCPCS: 36415; 74177; 80053; 81001; 81025; 83690; 85025; J0696; J2405; Q9967

== ENCOUNTER 2024-08-24 10:48 | Emergency (ER) | payer BC ==
[2024-08-24] MEDS ORDERED: ONDANSETRON 4 MG/2 ML VIAL ONE (12:03)
[2024-08-24] MEDS ORDERED: KETOROLAC 30 MG/ML INJ ONE (12:03)
[2024-08-24] MEDS ORDERED: NA CHLORIDE 0.9% 1,000 ML ONE (12:04)
[2024-08-24] MEDS ORDERED: MORPHINE 4 MG/ML SYR ONE ×2 (12:04→13:42)
[2024-08-24] MEDS ORDERED: FAMOTIDINE 20 MG/2 ML VIAL IV ONE (12:04)
[2024-08-24 12:32] LABS: Specific Gravity > 1.030 (1.005-1.030)
[2024-08-24 12:33] LABS: Specific Gravity > 1.030 (1.005-1.030); Sqamous Epithelial <5 /HPF (None Seen); Urine Bacteria None Seen /HPF (<20); Urine Bilirubin NEGATIVE (Negative); Urine Blood Negative (Negative); Urine Clarity Turbid (Clear); Urine Color Yellow (Yellow); Urine Culture Reflex Order NOT NEEDED; Urine Glucose NEGATIVE (Negative); Urine Ketones NEGATIVE (Negative); Urine Microscopic Reflex YN ORDER UMIC; Urine Mucus 1+ /HPF (None Seen); Urine Nitrite NEGATIVE (Negative); Urine Protein TRACE (Negative); Urine RBC <5 /HPF (None Seen); Urine Urobilinogen Normal (Normal); Urine WBC <5 /HPF (<5); Urine WBC Clump Rare /HPF (None Seen); Urine pH 6.5 (5.0-7.0)
[2024-08-24 12:43] LABS: Absolute Eosinophils 0.1 K/uL (0-0.5); Absolute Lymphocytes (CBC) 2.5 K/uL (0.7-4.9); Absolute Monocytes 0.8 K/uL (0.1-1.3); Absolute Neutrophil 5.9 K/uL (1.8-8.0); Basophils % 0.5 % (0-1.3); Hematocrit 46.5 % (36.0-45.0); Lymphocytes % 27.2 % (15.3-44.8); MCH 29.5 pg (27.0-35.0); MCHC 34.5 g/dL (32.0-36.0); MCV 85.6 fL (80-100); MPV 9.2 fL (7.6-11.3); Monocytes % 8.2 % (3.3-12.3); Neutrophils % 63.1 % (41.7-73.7); Nucleated Red Blood Cells % 0.1 % (0-0); Platelets 252 thou/uL (152-406); RBC Red Blood Cell Count 5.43 M/uL (3.86-4.86); Red Cell Distribution Width 13.5 % (12.1-15.2)
[2024-08-24 12:44] LABS: ALT/SGPT 32 U/L (13-56); Albumin 4.1 g/dL (3.4-5.0); Alkaline Phosphatase 142 U/L (45-117); Anion Gap 11.9 mEq/L (5.0-15.0); BUN Blood Urea Nitrogen 8 mg/dL (7-18); Bicarbonate 27 mEq/L (21-32); Bilirubin Total 0.6 mg/dL (0.2-1.0); Glomerular Filtration Rate 81 ml/min (=/>90); Glucose Level 94 mg/dL (74-106); Lipase 114 U/L (13-75); Potassium 3.9 mEq/L (3.5-5.1); Protein, Total 8.1 g/dL (6.4-8.2); Sodium Level 139 mEq/L (136-145)
[2024-08-24 12:50] LABS: AST/SGOT < 10 U/L (15-37)
--- NOTE | 2024-08-24 13:25 | RAD REPORT ---
EXAMINATION: CT Stone Protocol CLINICAL INDICATION: Female, 43 years old. PAIN TECHNIQUE: CT abdomen and pelvis was performed, without IV contrast, as per department protocol. Axia l, sagittal and coronal reconstructions were obtained. One or more of the following dose reduction techniques were used: Automated exposure control, adjustment of the mA and kV according to the patien t size, and iterative reconstruction. Unless otherwise specified, incidental findings do not require dedicated imaging follow-up. COMPARISON: 07/28/2024 FINDINGS: The lack of intravenous contrast limits the sensitivity of this exam for evaluation of solid visceral organs, vascular structures, and retroperitoneum. LOWER CHEST: The visualized lung bases are clear. LIVER: Normal in size and contour. No focal lesion. BILIARY SYSTEM: No suspicious abnormalities. SPLEEN: Normal size. No focal lesion. PANCREAS: No mass, ductal dilation, or christiane-pancreatic fluid. ADRENALS: Normal; no mass. KIDNEYS AND URETERS: Normal size and contour. No hydronephrosis. URINARY BLADDER: Normal contour. GASTROINTESTINAL TRACT: No evidence of bowel obstruction, significant free fluid, free air or abscess . Mild distal colonic diverticulosis without evidence of acute diverticulitis. APPENDIX: Fluid-filled and mildly prominent near the tip measuring up to 9 mm, without significant wa ll thickening or adjacent inflammatory changes. LYMPH NODES: No lymphadenopathy. MUSCULOSKELETAL: No acute or suspicious osseous abnormality. ADDITIONAL FINDINGS: None. IMPRESSION: Mildly prominent caliber of the appendix, with fluid filling. The tip. No adjacent inflammatory esclaante es. Finding is of uncertain clinical significance, although very early appendicitis cannot be entirely excluded. Please correlate clinically. No other acute or concerning abnormalities in the abdomen or pelvis, with evaluation limited by lack of IV contrast. Stable incidental findings including distal colonic diverticulosis without evidence of acute diverticulitis.
--- NOTE | 2024-08-24 14:49 | ER ---
Nurse's Notes [facility] Name: Yohana Preez Age: 43 yrs Sex: Female : 1980 Arrival Date: 08/24/2024 Time: 10:48 Bed 17 Private MD: Diagnosis: Abdominal tenderness-LEFT FLANK PAIN;Nausea;Weakness Presentation: 08/24 10:55 Chief complaint: Patient states: n/v/d with decreased appetite for one week. L flank me1 pain that started yesterday 10/20. Denies burning with urination. c/o urinary frequency and urgency. Coronavirus screen: Vaccine status: Patient reports receiving the 2nd dose of the covid vaccine. Ebola Screen: No symptoms or risks identified at this time. Initial Sepsis Screen: Does the patient meet any 2 criteria? HR > 90 bpm. Does the patient have a suspected source of infection? No. Patient's initial sepsis screen is negative. Risk Assessment: Do you want to hurt yourself or someone else? Patient reports no desire to harm self or others. Onset of symptoms was August 17, 2024. 10:55 Method Of Arrival: Ambulatory [facility] 10:55 Acuity: NICOLASA 3 me1 Triage Assessment: 11:20 General: Appears in no apparent distress. uncomfortable, Behavior is calm, cooperative, bp appropriate for age. Pain: Complains of pain in back. EENT: No deficits noted. Neuro: No deficits noted. Cardiovascular: No deficits noted. Respiratory: No deficits noted. GI: Reports nausea. : No signs and/or symptoms were reported regarding the genitourinary system. Derm: No deficits noted. Musculoskeletal: No deficits noted. 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 - Infectious Disease History:: Denies. - Social history:: Smoking status: Reported history of juuling and/or vaping. - Family history:: not pertinent. Screenin:46 [facility] ED Fall Risk Assessment (Adult) History of falling in the last 3 months, bp including since admission No falls in past 3 months (0 pts) Confusion or Disorientation No (0 pts) Intoxicated or Sedated No (0 pts) Impaired Gait No (0 pts) Mobility Assist Device Used No (0 pt) Altered Elimination No (0 pt) Score/Fall Risk Level 0 - 2 = Low Risk Oriented to surroundings. Abuse screen: Denies threats or abuse. Denies injuries from another. Nutritional screening: No deficits noted. Tuberculosis screening: No symptoms or risk factors identified. Assessment: 11:20 General: SEE TRIAGE NOTE. bp 12:46 Reassessment: Patient appears in no apparent distress at this time. Patient is alert, bp oriented x 3, equal unlabored respirations, skin warm/dry/pink. GI: Abdomen is non-distended. 13:45 Reassessment: No changes from previously documented assessment. Patient is alert, bp oriented x 3, equal unlabored respirations, skin warm/dry/pink. Vital Signs: 10:55 BP 138 / 89; Pulse 108; Resp 16; Temp 98.7; Pulse Ox 97% ; Weight 70.31 kg; Height 5 me1 ft. 3 in. ; Pain 7/10; 12:44 BP 141 / 101; Pulse 70; Resp 16; Pulse Ox 100% ; bp 13:45 BP 135 / 87; Pulse 88; Resp 16; Pulse Ox 100% ; bp 15:01 BP 118 / 90; Pulse 74; Resp 15; Pulse Ox 99% ; bp 10:55 Body Mass Index 27.46 (70.31 kg, 160.02 cm) me1 10:55 Pain Scale: Adult me1 ED Course: 10:54 Patient arrived in ED. cj3 10:54 Scott Mari MD is Attending Physician. israel 11:20 Triage completed. me1 11:20 Arm band placed on Patient placed in an exam room. me1 11:30 Inserted saline lock: 20 gauge in right antecubital area, using aseptic technique. bp Blood collected. Flushed with 10 mL NS. 11:59 Rolo Simental, FÁTIMA is Primary Nurse. bp 12:46 Patient has correct armband on for positive identification. bp 13:09 CT Stone Protocol In Process Unspecified. EDMS 14:48 Wilian Hyde MD is Referral Physician. israel 15:02 No provider procedures requiring assistance completed. IV discontinued, intact, bp bleeding controlled, No redness/swelling at site. Pressure dressing applied. Administered Medications: 12:17 Drug: Famotidine IVP 20 mg IVP once; dilute with 10 mL 0.9% NaCl; give over 2 minutes bp Route: IVP; Site: right antecubital; 13:49 Follow up: Response: No adverse reaction bp 12:17 Drug: NS 0.9% IV 1000 ml IV at 1 bolus Per protocol; to be given as a bolus over 60 bp minutes Route: IV; Rate: 1 bolus; Site: right antecubital; 13:49 Follow up: IV Status: Completed infusion bp 12:18 Drug: TORadol - Ketorolac IVP 15 mg IVP once Route: IVP; Site: right antecubital; bp 13:49 Follow up: Response: No adverse reaction bp 12:18 Drug: Ondansetron IVP 4 mg IVP once; over 2 minutes Route: IVP; Site: right antecubital;bp 13:49 Follow up: Response: No adverse reaction bp 12:18 Drug: morphine IVP or IV 4 mg IVP once over 4 mins Route: IVP; Infused Over: 4 mins; bp Site: right antecubital; 13:49 Follow up: Response: No adverse reaction bp 13:45 Drug: morphine IVP or IV 4 mg IVP once over 4 mins Route: IVP; Infused Over: 4 mins; bp Site: right antecubital; 13:50 Follow up: Response: No adverse reaction bp Medication: 12:46 VIS not applicable for this client. bp Outcome: 14:48 Discharge ordered by . [facility] 15:02 Discharged to home ambulatory, with family, bp 15:02 Condition: stable 15:02 Discharge instructions given to patient, Instructed on discharge instructions, follow up and referral plans. medication usage, Demonstrated understanding of instructions, follow-up care, medications, Prescriptions given X 2, 15:03 Patient left the ED. bp Signatures: Dispatcher [employer] Scott Vigil MD MD cha Peltier, Brian, RN RN bp Ai Snell, RN RN ny1 Brigitte Adams 3
--- NOTE | 2024-08-24 14:49 | EDPHYS ---
Physician Documentation [facility] Name: Yohana Perez Age: 43 yrs Sex: Female : 1980 Arrival Date: 08/24/2024 Time: 10:48 Bed 17 Private MD: THELMA Physician Scott Mari HPI: 08/24 14:43 This 43 yrs old Female presents to ER via Ambulatory with complaints of israel General Weakness, Flank Pain, Nausea/Vomiting, Decreased Appetite. 14:43 The patient complains of pain in the left mid back. The pain does not radiate. Onset: israel The symptoms/episode began/occurred 3 day(s) ago. Modifying factors: The symptoms are alleviated by change of position, the symptoms are aggravated by nothing. Associated signs and symptoms: The patient has no apparent associated signs or symptoms. Severity of pain: At its worst the pain was mild in the emergency department the pain is unchanged. The patient has not experienced similar symptoms in the past. 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 - Infectious Disease History:: Denies. - Social history:: Smoking status: Reported history of juuling and/or vaping. - Family history:: not pertinent. ROS: 14:43 Constitutional: Negative for fever, chills, and weight loss, Eyes: Negative for injury, israel pain, redness, and discharge, ENT: Negative for injury, pain, and discharge, Neck: Negative for injury, pain, and swelling, Cardiovascular: Negative for chest pain, palpitations, and edema, Respiratory: Negative for shortness of breath, cough, wheezing, and pleuritic chest pain, Abdomen/GI: Negative for abdominal pain, nausea, vomiting, diarrhea, and constipation, : Negative for injury, bleeding, discharge, and swelling, MS/Extremity: Negative for injury and deformity, Skin: Negative for injury, rash, and discoloration, Neuro: Negative for headache, weakness, numbness, tingling, and seizure, Psych: Negative for depression, anxiety, suicide ideation, homicidal ideation, and hallucinations, Allergy/Immunology: Negative for hives, rash, and allergies, Endocrine: Negative for neck swelling, polydipsia, polyuria, polyphagia, and marked weight changes, Hematologic/Lymphatic: Negative for swollen nodes, abnormal bleeding, and unusual bruising, 14:43 Back: Positive for pain at rest, pain with movement, of the left mid back, Exam: 14:43 Constitutional: This is a well developed, well nourished patient who is awake, alert, israel and in no acute distress. Head/Face: Normocephalic, atraumatic. Eyes: Pupils equal round and reactive to light, extra-ocular motions intact. Lids and lashes normal. Conjunctiva and sclera are non-icteric and not injected. Cornea within normal limits. Periorbital areas with no swelling, redness, or edema. ENT: Nares patent. No nasal discharge, no septal abnormalities noted. Tympanic membranes are normal and external auditory canals are clear. Oropharynx with no redness, swelling, or masses, exudates, or evidence of obstruction, uvula midline. Mucous membranes moist. Neck: Trachea midline, no thyromegaly or masses palpated, and no cervical lymphadenopathy. Supple, full range of motion without nuchal rigidity, or vertebral point tenderness. No Meningismus. Chest/axilla: Normal chest wall appearance and motion. Nontender with no deformity. No lesions are appreciated. Cardiovascular: Regular rate and rhythm with a normal S1 and S2. No gallops, murmurs, or rubs. Normal PMI, no JVD. No pulse deficits. Respiratory: Lungs have equal breath sounds bilaterally, clear to auscultation and percussion. No rales, rhonchi or wheezes noted. No increased work of breathing, no retractions or nasal flaring. Abdomen/GI: Soft, non-tender, with normal bowel sounds. No distension or tympany. No guarding or rebound. No evidence of tenderness throughout. Skin: Warm, dry with normal turgor. Normal color with no rashes, no lesions, and no evidence of cellulitis. MS/ Extremity: Pulses equal, no cyanosis. Neurovascular intact. Full, normal range of motion., bilateral aka Neuro: Awake and alert, GCS 15, oriented to person, place, time, and situation. Cranial nerves II-XII grossly intact. Motor strength 5/5 in all extremities. Sensory grossly intact. Cerebellar exam normal. Normal gait. Psych: Awake, alert, with orientation to person, place and time. Behavior, mood, and affect are within normal limits. 14:43 Abdomen/GI: Inspection: abdomen appears normal, Bowel sounds: normal, Palpation: abdomen is soft and non-tender, Liver: no appreciated palpable abnormalities, Hernia: not appreciated, SPECIFICALLY NO RIGHT LOWER QUADRANT PAIN, 14:43 Back: pain, that is mild, ROM is normal, normal spinal alignment noted, CVA tenderness, that is mild, is noted on the left, vertebral tenderness, is not appreciated, muscle spasm, is not present, Vital Signs: 10:55 BP 138 / 89; Pulse 108; Resp 16; Temp 98.7; Pulse Ox 97% ; Weight 70.31 kg; Height 5 me1 ft. 3 in. ; Pain 7/10; 12:44 BP 141 / 101; Pulse 70; Resp 16; Pulse Ox 100% ; bp 13:45 BP 135 / 87; Pulse 88; Resp 16; Pulse Ox 100% ; bp 15:01 BP 118 / 90; Pulse 74; Resp 15; Pulse Ox 99% ; bp 10:55 Body Mass Index 27.46 (70.31 kg, 160.02 cm) me1 10:55 Pain Scale: Adult me1 MDM: 10:54 Medical Screening Exam initiated israel 14:46 Differential diagnosis: nephrolithiasis, pyelonephritis, UTI, diverticulitis, israel pancreatitis. Data reviewed: vital signs, nurses notes, lab test result(s), radiologic studies, CT scan. Consideration of Admission/Observation Escalation of care including admission/observation considered. I considered the following discharge prescriptions or medication management in the emergency department Medications were administered in the Emergency Department. See MAR. Independent interpretation of the following test(s) in the Emergency Department CT Scan: My interpretation is CT STONE. Historians other than the Patient: Family Member: MOM WELL INFORMED. Care significantly affected by the following chronic conditions: CBP, ANXIETY, GI BLEED, DEPRESSION. 08/24 10:56 Order name: CBC with Diff; Complete Time: 13:[address] [facility] 08/24 10:56 Order name: CMP; Complete Time: 13:[address] [facility] 08/24 10:56 Order name: Lipase; Complete Time: 13:[address] [facility] 08/24 10:56 Order name: Test, Urine; Complete Time: 13:[address] [facility] 08/24 10:56 Order name: UA Rfx Elvis Cult if indicated; Complete Time: 13:[address] [facility] 08/24 10:56 Order name: CT Stone Protocol; Complete Time: 13:[address] [facility] 08/24 10:56 Order name: IV Saline Lock; Complete Time: 12:[address] [facility] 08/24 10:56 Order name: Labs collected and sent; Complete Time: 12:[address] [facility] Administered Medications: 12:17 Drug: Famotidine IVP 20 mg IVP once; dilute with 10 mL 0.9% NaCl; give over 2 minutes bp Route: IVP; Site: right antecubital; 13:49 Follow up: Response: No adverse reaction bp 12:17 Drug: NS 0.9% IV 1000 ml IV at 1 bolus Per protocol; to be given as a bolus over 60 bp minutes Route: IV; Rate: 1 bolus; Site: right antecubital; 13:49 Follow up: IV Status: Completed infusion bp 12:18 Drug: TORadol - Ketorolac IVP 15 mg IVP once Route: IVP; Site: right antecubital; bp 13:49 Follow up: Response: No adverse reaction bp 12:18 Drug: Ondansetron IVP 4 mg IVP once; over 2 minutes Route: IVP; Site: right antecubital;bp 13:49 Follow up: Response: No adverse reaction bp 12:18 Drug: morphine IVP or IV 4 mg IVP once over 4 mins Route: IVP; Infused Over: 4 mins; bp Site: right antecubital; 13:49 Follow up: Response: No adverse reaction bp 13:45 Drug: morphine IVP or IV 4 mg IVP once over 4 mins Route: IVP; Infused Over: 4 mins; bp Site: right antecubital; 13:50 Follow up: Response: No adverse reaction bp Disposition Summary: 08/24/24 14:48 Discharge Ordered Notes: Location: Home israel Problem: new israel Symptoms: have improved israel Condition: Stable israel Diagnosis - Abdominal tenderness - LEFT FLANK PAIN israel - Nausea israel - Weakness israel Followup: israel - With: Private Physician - When: 2 - 3 days - Reason: Recheck today's complaints, Continuance of care, Re-evaluation by your physician Followup: israel - With: Wilian Hyde MD - When: 1 - 2 days - Reason: Recheck today's complaints, Re-evaluation by your physician Discharge Instructions: - Discharge Summary Sheet israel - Abdominal Pain, Adult israel - Nausea, Adult israel - Weakness israel - Fatigue israel - Nausea and Vomiting, Adult, [id number] israel - Abdominal Pain, Adult, [id number] israel - Appendicitis, Adult, [id number] israel Forms: - Medication Reconciliation Form israel - Antibiotic Education israel - Prescription Opioid Use israel - Patient Portal Instructions israel - Leadership Thank You Letter israel - Work release form Prescriptions: - ondansetron 4 mg Oral Tablet,disintegrating - take 1 tablet ORAL route every 8 hours PRN; 20 tablet; Refills: 0, Product israel Selection Permitted - dicyclomine 20 mg Oral tablet - take 1 tablet ORAL route 4 times per day PRN; 28 tablet; Refills: 0, Product israel Selection Permitted Signatures: Dispatcher [employer] Scott Vigil MD MD cha Peltier, Brian, RN RN Ai Snell RN RN me1
[2024-08-24 15:28] VITALS: TEMP 98.7
[2024-08-24 15:31] VITALS: BP 118/90; O2SAT 99
== END 2024-08-24 15:03 | disposition home or self-care (01) ==
LOC: ER 10:48
DX: R10.814 Left lower quadrant abdominal tenderness (principal); R11.0 Nausea; R53.1 Weakness
CPT/HCPCS: 85025; 81001; 36415; 81025; 83690; 80053; 76377; 74176; J2405; J7030; 96361; 96374; 96375; 99284

== ENCOUNTER 2024-08-28 11:11 | Observation (INO) | payer BC ==
[2024-08-28] MEDS ORDERED: ONDANSETRON 4 MG/2 ML VIAL ONE ×2 (11:57→16:09)
[2024-08-28] MEDS ORDERED: KETOROLAC 30 MG/ML INJ ONE ×2 (11:58→16:09)
--- NOTE | 2024-08-28 12:20 | RAD REPORT ---
EXAM: Abdomen Exam Limited HISTORY: RLQ pain;Abd pain COMPARISON: None TECHNIQUE: Sonographic grayscale and color flow imaging of the right lower quadrant to evaluate for t he appendix. IMPRESSION: No normal or abnormal appendix identified in the right lower quadrant. This does not exclude the pres ence of acute appendicitis. No free fluid.
[2024-08-28 12:25] LABS: Absolute Eosinophils 0.1 K/uL (0-0.5); Absolute Lymphocytes (CBC) 1.6 K/uL (0.7-4.9); Absolute Monocytes 0.7 K/uL (0.1-1.3); Absolute Neutrophil 7.2 K/uL (1.8-8.0); Basophils % 0.4 % (0-1.3); Eosinophils % 0.8 % (0-4.4); Hemoglobin 15.3 g/dL (12.0-15.0); Lymphocytes % 16.8 % (15.3-44.8); MCH 29.4 pg (27.0-35.0); MCHC 34.1 g/dL (32.0-36.0); MCV 86.2 fL (80-100); MPV 9.1 fL (7.6-11.3); Monocytes % 7.8 % (3.3-12.3); Neutrophils % 74.2 % (41.7-73.7); Platelets 259 thou/uL (152-406); RBC Red Blood Cell Count 5.22 M/uL (3.86-4.86); Red Cell Distribution Width 13.4 % (12.1-15.2)
[2024-08-28] MEDS ORDERED: FENTANYL CITR 100 MCG/2 ML ONE ×3 (12:35→16:05)
[2024-08-28 12:40] LABS: Specific Gravity 1.012 (1.005-1.030); Urine Clarity Cloudy (Clear); Urine Color Light-Yellow (Yellow)
[2024-08-28 12:41] LABS: ALT/SGPT 17 U/L (13-56); Albumin 3.9 g/dL (3.4-5.0); Alkaline Phosphatase 137 U/L (45-117); Anion Gap 11.8 mEq/L (5.0-15.0); BUN Blood Urea Nitrogen 9 mg/dL (7-18); Bicarbonate 28 mEq/L (21-32); Bilirubin Total 0.4 mg/dL (0.2-1.0); Globulin 3.8 g/dL (2.3-3.5); Glomerular Filtration Rate 77 ml/min (=/>90); Glucose Level 107 mg/dL (74-106); Potassium 3.8 mEq/L (3.5-5.1); Protein, Total 7.7 g/dL (6.4-8.2); Sodium Level 138 mEq/L (136-145)
[2024-08-28 12:41] LABS: Sqamous Epithelial <5 /HPF (None Seen); Urine Bacteria <20 /HPF (<20); Urine Bilirubin NEGATIVE (Negative); Urine Blood Negative (Negative); Urine Culture Reflex Order NOT NEEDED; Urine Glucose Negative (Negative); Urine Ketones Negative (Negative); Urine Microscopic Reflex YN ORDER UMIC; Urine Nitrite Negative (Negative); Urine Protein Negative (Negative); Urine RBC <5 /HPF (None Seen); Urine Urobilinogen Normal mg/dL (0.2-1.0); Urine WBC <5 /HPF (<5)
[2024-08-28 12:42] LABS: Lipase 80 U/L (13-75)
[2024-08-28 12:44] LABS: AST/SGOT < 10 U/L (15-37)
--- NOTE | 2024-08-28 13:57 | RAD REPORT ---
EXAMINATION: Abdomen Pelvis W Contrast CLINICAL INDICATION: Female, 43 years old.rlq pain/tenderness;Abd pain TECHNIQUE: CT abdomen and pelvis was performed, after the administration of IV contrast, as per [facility] protocol. Axial, sagittal and coronal reconstructions were obtained. One or more of the following dose reduction techniques were used: Automated exposure control, adjustment of the mA and/o r kV according to patient size, and/or iterative reconstruction. Unless otherwise specified, incidental findings do not require dedicated imaging follow-up. [id number]. COMPARISON: 07/28/2024, 08/24/2024 FINDINGS: LOWER CHEST: No acute process identified.No significant pericardial effusion. Mild circumferential th ickening of the distal esophagus which could reflect esophagitis. UPPER GI: No significant abnormality. LIVER: No significant focal abnormality. GALLBLADDER/BILE DUCTS: Contracted gallbladder. No ductal dilatation.? PANCREAS: No mass, ductal dilation, or christiane-pancreatic fluid. SPLEEN: Unremarkable. ADRENALS: No adrenal masses. KIDNEYS AND URETERS: No hydronephrosis.No suspicious renal mass.No renal calculi. ABDOMINAL AORTA AND OTHER VESSELS: Normal caliber aorta and IVC. PERITONEUM: No abnormal free fluid. No free air. LYMPH NODES: No pathologic lymphadenopathy. ABDOMINAL WALL: Unremarkable SMALL BOWEL/COLON: Small bowel has normal course and caliber. No colonic wall thickening or pericolon ic inflammatory changes.Similar diffusely enlarged appendix measuring 9 mm in diameter but without significant periappendiceal inflammatory changes. Mild diverticulosis without diverticulitis. URINARY BLADDER: Underdistended but grossly unremarkable. REPRODUCTIVE ORGANS: No pathologic process. MUSCULOSKELETAL: No acute or suspicious osseous abnormality. ADDITIONAL FINDINGS: None. IMPRESSION: No acute findings within the abdomen or pelvis. Similar diffuse mild enlargement of the appendix without periappendiceal inflammatory changes. Acute appendicitis considered unlikely but not totally excluded in the appropriate clinical setting.
[2024-08-28] MEDS ORDERED: MORPHINE 4 MG/ML SYR ONE (14:35)
[2024-08-28] MEDS ORDERED: NA CHLORIDE 0.9% 100 ML ONE (14:35)
[2024-08-28] MEDS ORDERED: PIPERACIL/TAZO 3.375 GM VIAL IV ONE (14:36)
--- NOTE | 2024-08-28 14:58 | EDPHYS ---
Physician Documentation [facility] Name: Yohana Perez Age: 43 yrs Sex: Female : 1980 Arrival Date: 08/28/2024 Time: 11:11 Bed 19 Private MD: ED Physician Violeta Shin HPI: 08/28 11:42 This 43 yrs old Female presents to ER via Ambulatory with complaints of Abdominal Pain. jh7 11:42 The patient presents with abdominal pain right lower quadrant. Onset: The jh7 symptoms/episode began/occurred last night. The symptoms do not radiate. Associated signs and symptoms: Pertinent positives: diarrhea, nausea. Patient reports that she was seen 4 days ago for left-sided abdominal pain, left flank pain, and diarrhea. She was informed that her CT abdomen pelvis without contrast showed that her appendix was mildly enlarged. She was discharged with Bentyl but reports that her symptoms have not improved. Also reports that she developed severe right lower quadrant pain last night that woke her from sleep. Reports that her abdomen is extremely tender. Denies fever.. Historical: - Allergies: 11:43 No Known Allergies; cm10 - PMHx: 11:43 Anxiety; chronic back pain; depressive disorder; GI Bleed; heart attack due to trauma; cm10 Hypertensive disorder; Kidney stones; Migraine; sinus histiocytosis (Migraine); - Immunization history:: Adult Immunizations up to date. - Infectious Disease History:: Denies. - Social history:: Smoking status: Reported history of juuling and/or vaping. ROS: 11:42 Constitutional: Per HPI jh7 Exam: 11:42 Cardiovascular: Regular rate and rhythm with a normal S1 and S2. No gallops, murmurs, jh7 or rubs. Normal PMI, no JVD. No pulse deficits. Respiratory: Lungs have equal breath sounds bilaterally, clear to auscultation and percussion. No rales, rhonchi or wheezes noted. No increased work of breathing, no retractions or nasal flaring. Back: No spinal tenderness. No costovertebral tenderness. Full range of motion. Skin: Warm, dry with normal turgor. Normal color with no rashes, no lesions, and no evidence of cellulitis. MS/ Extremity: Pulses equal, no cyanosis. Neurovascular intact. Full, normal range of motion. Neuro: Awake and alert, GCS 15, oriented to person, place, time, and situation. Motor strength 5/5 in all extremities. Sensory grossly intact. Normal gait. 11:42 Constitutional: The patient appears alert, awake, in obvious pain, 11:42 Abdomen/GI: Inspection: abdomen appears normal, Bowel sounds: normal, Palpation: soft, moderate abdominal tenderness, in the right lower quadrant, rebound tenderness, is appreciated in the right lower quadrant, Vital Signs: 11:42 BP 112 / 70; Pulse 105; Resp 18; Temp 98.4(O); Pulse Ox 96% on R/A; Weight 70.31 kg; cm10 Height 5 ft. 3 in. ; Pain 9/10; 13:22 BP 121 / 86; Pulse 86; Resp 16; Pulse Ox 100% on R/A; mb9 11:42 Body Mass Index 27.46 (70.31 kg, 160.02 cm) cm10 11:42 Pain Scale: Adult cm10 MDM: 11:16 Medical Screening Exam initiated 7 14:15 Differential diagnosis: appendicitis, diverticulitis, non-specific abd pain, 7 Pyelonephritis, urinary tract infection. Data reviewed: vital signs, nurses notes, lab test result(s), radiologic studies, CT scan. Consideration of Admission/Observation Patient was admitted/placed on observation. Management of patient was discussed with the following: Hospitalist: Dr. Carpenter. Platen Press Feeder: Dr. Wilian Delgado, General Surgery. I considered the following discharge prescriptions or medication management in the emergency department Medications were administered in the Emergency Department. See MAR. Care significantly affected by the following chronic conditions: Hypertension. Counseling: I had a detailed discussion with the patient and/or guardian regarding the historical points, exam findings, and any diagnostic results supporting the discharge/admit diagnosis, the need for further work-up and treatment in the hospital. Response to treatment: the patient's symptoms have mildly improved after treatment. ED course: Spoke with general surgery regarding the patient's CT findings. Informed him that they were comparable to the CT scan performed 4 days ago but that the patient was complaining of persistent right lower quadrant pain. Also informed him that the labs were unremarkable. He requested that we give the patient the option of admitting her for an appendectomy versus outpatient antibiotics and close follow-up. The patient stated that she was in so much pain she would rather just have her appendix taken out. She remained hemodynamically stable throughout her ER stay and was admitted to the hospitalist with general surgery as a consult.. 08/28 11:31 Order name: CBC with Diff; Complete Time: 12:35 [facility] 08/28 11:31 Order name: CMP; Complete Time: 12:48 [facility] 08/28 11:31 Order name: Lipase; Complete Time: 12:48 [facility] 08/28 11:31 Order name: UA Rfx Elvis Cult if indicated; Complete Time: 12:48 [facility] 08/28 14:32 Order name: Type And Screen; Complete Time: 16:02 [facility] 08/28 15:22 Order name: Test, Urine EDMS 08/28 11:31 Order name: US Abdomen Limited; Complete Time: 12:25 [facility] 08/28 12:48 Order name: CT Abd/Pelvis - IV Contrast Only; Complete Time: 14:03 [facility] 08/28 11:31 Order name: IV Saline Lock; Complete Time: 12:15 [facility] 08/28 11:31 Order name: Labs collected and sent; Complete Time: 12:15 [facility] Administered Medications: 12:13 Drug: Ondansetron IVP 4 mg IVP once; over 2 minutes Route: IVP; Site: right antecubital;mb9 12:36 Follow up: Response: No adverse reaction mb9 12:15 Drug: TORadol - Ketorolac IVP 15 mg IVP once Route: IVP; Site: right antecubital; mb9 12:37 Follow up: Response: No adverse reaction mb9 12:44 Drug: fentaNYL (PF) IVP 25 mcg IVP once Route: IVP; Site: right antecubital; mb9 14:05 Follow up: Response: No adverse reaction mb9 14:05 Drug: fentaNYL (PF) IVP 25 mcg IVP once Route: IVP; Site: right antecubital; mb9 14:47 Follow up: Response: No adverse reaction mb9 14:39 Drug: morphine IVP or IV 4 mg IVP once over 4 mins Route: IVP; Infused Over: 4 mins; mb9 Site: right antecubital; 15:36 Follow up: Response: No adverse reaction mb9 14:47 Drug: Piperacillin-Tazobactam IVPB 3.375 grams IVPB once over 60 mins; (mix in NS 100 mb9 mL) Route: IVPB; Infused Over: 60 mins; Site: right antecubital; 15:36 Follow up: Response: No adverse reaction; IV Status: Completed infusion mb9 Disposition Summary: 08/28/24 14:57 Hospitalization Ordered Notes: Hospitalization Status: Observation [facility] Provider: Mayra Carpenter Location: Telemetry/MedSurg (observation) [facility] Condition: Stable [facility] Problem: new [facility] Symptoms: are unchanged [facility] Bed/Room Type: Standard [facility] Room Assignment: [facility] Diagnosis - Unspecified acute appendicitis [facility] - Diarrhea, unspecified [facility] Forms: - Medication Reconciliation Form [facility] - SBAR form [facility] - Leadership Thank You Letter [facility] Signatures: Dispatcher [employer] EDNani Gallegos FNP [employer] PREVENTION MANAGER Cherelle Shields RN RN mb9 Rosa Rodriguez RN RN cm10 Corrections: (The following items were deleted from the chart) 11:32 11:32 CBC+H.LAB.BRZ ordered. EDMS EDMS 11:32 11:32 COMPREHENSIVE METABOLIC PANEL+C.LAB.BRZ ordered. EDMS EDMS 11:32 11:32 LIPASE+C.LAB.BRZ ordered. EDMS EDMS 11:32 11:32 UA Rfx Elvis Cult if indicated+U.LAB.BRZ ordered. EDMS EDMS
--- NOTE | 2024-08-28 14:58 | ER ---
Nurse's Notes [facility] Name: Yohana Perez Age: 43 yrs Sex: Female : 1980 Arrival Date: 08/28/2024 Time: 11:11 Bed 19 Private MD: Diagnosis: Unspecified acute appendicitis;Diarrhea, unspecified Presentation: 08/28 11:42 Chief complaint: Patient states: RLQ abdominal pain onset last night. Pt states that cm10 she was seen here a few days ago and was told that "my appendix looked inflamed on the ct scan". Coronavirus screen: Client denies travel out of the [place] in the last 14 days. Ebola Screen: Patient denies travel to an Ebola-affected area in the 21 days before illness onset. Initial Sepsis Screen: Does the patient meet any 2 criteria? HR > 90 bpm. Does the patient have a suspected source of infection? No. Patient's initial sepsis screen is negative. Risk Assessment: Do you want to hurt yourself or someone else? Patient reports no desire to harm self or others. Onset of symptoms was August 28, 2024. 11:42 Method Of Arrival: Ambulatory cm10 11:42 Acuity: NICOLASA 3 cm10 Triage Assessment: 11:44 General: Appears uncomfortable, Behavior is calm, cooperative. Pain: Complains of pain cm10 in right lower quadrant Pain currently is 9 out of 10 on a pain scale. Quality of pain is described as aching, sharp, Pain began 1 day ago. Neuro: No deficits noted. Level of Consciousness is awake, alert, obeys commands, Oriented to person, place, time, situation, Appropriate for age. Respiratory: No deficits noted. Airway is patent Respiratory effort is even, unlabored, Respiratory pattern is regular, symmetrical. Historical: - Allergies: 11:43 No Known Allergies; cm10 - PMHx: 11:43 Anxiety; chronic back pain; depressive disorder; GI Bleed; heart attack due to trauma; cm10 Hypertensive disorder; Kidney stones; Migraine; sinus histiocytosis (Migraine); - Immunization history:: Adult Immunizations up to date. - Infectious Disease History:: Denies. - Social history:: Smoking status: Reported history of juuling and/or vaping. Screenin:28 [facility] ED Fall Risk Assessment (Adult) History of falling in the last 3 months, mb9 including since admission No falls in past 3 months (0 pts) Confusion or Disorientation No (0 pts) Intoxicated or Sedated No (0 pts) Impaired Gait No (0 pts) Mobility Assist Device Used No (0 pt) Altered Elimination No (0 pt) Score/Fall Risk Level 0 - 2 = Low Risk Oriented to surroundings, Maintained a safe environment, Educated pt \\T\\ family on fall prevention, incl call for assistance when getting out of bed. Abuse screen: Denies threats or abuse. Nutritional screening: No deficits noted. Tuberculosis screening: No symptoms or risk factors identified. Assessment: 12:27 General: Appears uncomfortable. Pain: Complains of pain in abdomen Pain radiates to mb9 right lower quadrant Pain currently is 10 out of 10 on a pain scale. Quality of pain is described as sharp, shooting, Pain began suddenly, Is continuous. Neuro: Batres Agitation-Sedation Scale (RASS): 0 - Alert and Calm Level of Consciousness is awake, alert, obeys commands, Oriented to person, place, time, situation, Appropriate for age. Cardiovascular: Patient's skin is warm and dry. Respiratory: Airway is patent Respiratory effort is even, unlabored, Respiratory pattern is regular, symmetrical. GI: Abdomen is round non-distended, Bowel sounds present X 4 quads. Abd is soft Abdomen is tender to palpation in left lower quadrant Parent/caregiver reports the patient having nausea. : No signs and/or symptoms were reported regarding the genitourinary system. EENT: No signs and/or symptoms were reported regarding the EENT system. Derm: Skin is pink, warm \\T\\ dry. Musculoskeletal: Range of motion: intact in all extremities. 13:30 Reassessment: No changes from previously documented assessment. Patient and/or family mb9 updated on plan of care and expected duration. Pain level reassessed. Patient is alert, oriented x 3, equal unlabored respirations, skin warm/dry/pink. 14:28 Reassessment: No changes from previously documented assessment. Patient and/or family mb9 updated on plan of care and expected duration. Pain level reassessed. Patient is alert, oriented x 3, equal unlabored respirations, skin warm/dry/pink. Vital Signs: 11:42 BP 112 / 70; Pulse 105; Resp 18; Temp 98.4(O); Pulse Ox 96% on R/A; Weight 70.31 kg; cm10 Height 5 ft. 3 in. ; Pain 9/10; 13:22 BP 121 / 86; Pulse 86; Resp 16; Pulse Ox 100% on R/A; mb9 11:42 Body Mass Index 27.46 (70.31 kg, 160.02 cm) cm10 11:42 Pain Scale: Adult cm10 ED Course: 11:14 Patient arrived in ED. sj2 11:16 [facility] Conrad [facility] jh7 11:16 Violeta Shin MD is Attending Physician. jh7 11:43 Triage completed. cm10 11:44 Arm band placed on right wrist. Patient placed in waiting room. cm10 12:00 Cherelle Khan, FÁTIMA is Primary Nurse. mb9 12:00 Patient placed in an exam room, on a stretcher. ll1 12:02 US Abdomen Limited In Process Unspecified. EDMS 12:16 Initial lab(s) drawn, by me, sent to lab. Urine collected: clean catch specimen, clear. mb9 Inserted saline lock: 20 gauge in right antecubital area, using aseptic technique. Blood collected. Flushed with 10 mL NS. 12:28 Placed in gown. Bed in low position. Call light in reach. Side rails up X 1. Provided mb9 Education on: press call light if needing anything. Client placed on continuous cardiac and pulse oximetry monitoring. NIBP monitoring applied. 13:38 CT Abd/Pelvis - IV Contrast Only In Process Unspecified. EDMS 14:57 Mayra Carpenter MD is Hospitalizing Provider. jh7 15:35 No provider procedures requiring assistance completed. Patient admitted, IV remains in mb9 place. Administered Medications: 12:13 Drug: Ondansetron IVP 4 mg IVP once; over 2 minutes Route: IVP; Site: right antecubital;mb9 12:36 Follow up: Response: No adverse reaction mb9 12:15 Drug: TORadol - Ketorolac IVP 15 mg IVP once Route: IVP; Site: right antecubital; mb9 12:37 Follow up: Response: No adverse reaction mb9 12:44 Drug: fentaNYL (PF) IVP 25 mcg IVP once Route: IVP; Site: right antecubital; mb9 14:05 Follow up: Response: No adverse reaction mb9 14:05 Drug: fentaNYL (PF) IVP 25 mcg IVP once Route: IVP; Site: right antecubital; mb9 14:47 Follow up: Response: No adverse reaction mb9 14:39 Drug: morphine IVP or IV 4 mg IVP once over 4 mins Route: IVP; Infused Over: 4 mins; mb9 Site: right antecubital; 15:36 Follow up: Response: No adverse reaction mb9 14:47 Drug: Piperacillin-Tazobactam IVPB 3.375 grams IVPB once over 60 mins; (mix in NS 100 mb9 mL) Route: IVPB; Infused Over: 60 mins; Site: right antecubital; 15:36 Follow up: Response: No adverse reaction; IV Status: Completed infusion mb9 Medication: 12:28 VIS not applicable for this client. mb9 Outcome: 14:57 Decision to Hospitalize by Provider. [facility] 15:35 Admitted to OR accompanied by nurse, via stretcher, Report called to FÁTIMA Medina mb9 15:35 Condition: stable 15:35 Instructed on the need for admit, 15:47 Patient left the ED. 1 Signatures: Dispatcher [employer] EDFrancisca Burns RN RN ll1 Nani Conrad, RESTAURANT EXPEDITOR RESTAURANT EXPEDITOR aj7 Cherelle Khan RN RN mb9 Rosa Rodriguez RN RN cm10 Anjelica Li2
[2024-08-28] MEDS ORDERED: ACETAMINOPHEN 325 MG TABLET PO PRN (15:40)
--- NOTE | 2024-08-28 15:57 | P.HP ---
Certification for Inpatient Patient admitted to: Observation With expected LOS: <2 Midnights <Elham Linares - Last Filed: 08/28/24 21:46> Patient History Date of Service: 08/28/24 Reason for admission: Acute appendicitis History of Present Illness: Yohana Perez is a 43 year old female wtih pmhx Anxiety; chronic back pain; depressive disorder; GI Bleed; heart attack 2/2 blood loss c section; Hypertensi ve who presents to the ED with right lower quadrant pain that began last night. Laboratory evaluation significant for lipase 80, Abdominal ultrasound reports "No normal or abnormal appendix identified in the right lower quadrant. This does not exclude the presence of acute appendicitis. No free fluid." Yohana will be admitted to the hospitalist service for acute appendicitis, Dr. Hyde consulted, - Past Medical/Surgical History Diabetic: No -: migraine -: HTN -: ID- [id number] -: DISC HERNIATION L5 S1 -: AFIB -: MITRAL VALVE PROLAPSE -: GIB -: RLS -: depression/anxiety -: kidney stone -: x 3 -: exlap secondary to c/section Psychosocial/ Personal History: Lives at home with her and 3 children - Family History Father -: Heart disease, Diabetes, Cancer Notes: . recently Mother -: Cancer Notes: ovarian - Social History Smoking Status: Never smoker Alcohol use: Yes CD- Drugs: No Caffeine use: Yes <Elham Linares - Last Filed: 08/28/24 21:46> Date of Service: 08/28/24 <Mayra Carpenter - Last Filed: 08/29/24 00:20> Allergies No Known Drug Allergies Allergy (Verified 06/28/24 13:44) Unknown Home Medications: Cariprazine HCl [Vraylar] 3 mg PO DAILY 09/10/23 Metoprolol Tartrate 50 mg PO BID 02/15/24 Vortioxetine Hydrobromide [Trintellix] 20 mg PO BEDTIME 02/15/24 Alprazolam [Xanax] 0.5 mg PO TID 06/28/24 Hydrocodone Bit/Acetaminophen [Hydrocodon-Acetaminophn 10-325] 1 each PO BID PRN 06/28/24 Isosorbide Dinitrate 30 mg PO BID 06/28/24 Review of Systems Other: per HPI <Elham Linares - Last Filed: 08/28/24 21:46> Physical Examination - Physical Exam General: Alert, In no apparent distress, Oriented x3 HEENT: Atraumatic, Normocephalic Neck: Supple, 2+ carotid pulse no bruit Respiratory: Clear to auscultation bilaterally, Normal air movement Cardiovascular: Normal pulses, Regular rate/rhythm Capillary refill: <2 Seconds Gastrointestinal: Soft and benign, Tenderness (RLQ) Musculoskeletal: No clubbing Integumentary: No rashes Neurological: Normal speech, Normal tone - Studies Laboratory Data (last 24 hrs) 08/28/24 08/28/24 12:12 12:12 WBC 9.60 Hgb 15.3 H Hct 45.0 Plt Count 259 Sodium 138 Potassium 3.8 BUN 9 Creatinine 0.94 Glucose 107 H Total Bilirubin 0.4 AST < 10 L ALT 17 Alkaline Phosphatase 137 H Lipase 80 H <Elham Linares - Last Filed: 08/28/24 21:46> - Studies Laboratory Data (last 24 hrs) 08/28/24 08/28/24 12:12 12:12 WBC 9.60 Hgb 15.3 H Hct 45.0 Plt Count 259 Sodium 138 Potassium 3.8 BUN 9 Creatinine 0.94 Glucose 107 H Total Bilirubin 0.4 AST < 10 L ALT 17 Alkaline Phosphatase 137 H Lipase 80 H <Mayra Carpenter - Last Filed: 08/29/24 00:20> Assessment and Plan - Plan Assessment and plan Acute appendicitis intractable RLQ pain -Consulted Dr. Hyde -Pain control -Zosyn -IVF -NPO for surgery Anxiety depressive disorder chronic back pain GI Bleed Hypertensive heart attack 2/2 blood loss c section -continue home medications DVT ppx SCD Full Code LOS 24 hour OBS Discharge Plan: Home Plan to discharge in: 24 Hours - Advance Directives Does patient have a Living Will: No Does patient have a Durable POA for Healthcare: No <Elham Linares - Last Filed: 08/28/24 21:46> Date of Service: 08/28/24 Patient was seen and examined. Events of the last 24 hours have been noted. Spoke with with BREE regarding patient's clinical picture after evaluating and examining the patient independently. I performed a substantial part of the MDM during this patient's care today. I personally made or approved the documented management plan and acknowledge its risk of complications. I agree with the findings and documentation provided in the BREE's notes. Patient taken to the operating room. Patient had a laparoscopic appendectomy. Discharge planning in the morning. <Mayra Carpenter - Last Filed: 08/29/24 00:20>
[2024-08-28] MEDS ORDERED: ONDANSETRON 4 MG/2 ML VIAL IV PRN (16:01)
[2024-08-28] MEDS ORDERED: propofoL 200 MG/20 ML VIAL IV ONE (16:05)
[2024-08-28] MEDS ORDERED: ROCURONIUM 50 MG/5 ML VIAL IV ONE (16:05)
[2024-08-28] MEDS ORDERED: MIDAZOLAM HCL 2 MG/2 ML INJ ONE (16:05)
[2024-08-28] MEDS ORDERED: LIDOCAINE 1% MPF 5 ML VIAL ONE (16:06)
[2024-08-28] MEDS ORDERED: NEOSTIGMINE 1 MG/ML -10 ML VIAL ONE (16:09)
[2024-08-28] MEDS ORDERED: dexAMETHasone 10 MG/ML VIAL ONE (16:09)
[2024-08-28] MEDS ORDERED: GLYCOPYRROLATE 0.2 MG/ML SYR ONE ×2 (16:09→17:48)
[2024-08-28] MEDS: LIDOCAINE HCL/EPINEPHRINE 20 ML MDV ONE (16:23)
[2024-08-28] MEDS: NA CHLORIDE 0.9% 1,000 ML ONE ×2 (16:26→17:25)
--- NOTE | 2024-08-28 16:55 | CON ---
Date of Consultation: 08/28/2024 Brief History Of Present Illness: The patient is a 43-year-old white woman with past medical history of anxiety, chronic back pain, depressive disorder, GI bleed, heart attack due to blood loss after a complication, and hypertension who presents the ER with periumbilical with now localized t o the right lower quadrant abdominal pain. She was recently seen in the ER with left flank pain and left abdominal pain several days ago; however, that pain has since resolved. She then developed yest erday acute onset of periumbilical pain which now has radiated to the right lower quadrant unlike any other attacks she has had before in the past associated with nausea. No sick contacts. No recent t ravel. No new food exposures. She does have diarrhea as well low-grade fever, otherwise. The past medical history also includes Rosai-Nallely disease/sinus histiocytosis. Surgeries: 3 C-sections and a tubal ligation. One of the was complicated by postoperative bleeding, for which she underwent an emergency surgery. Allergies: NO KNOWN DRUG ALLERGIES. Home Medications: Include Ambien, Vraylar, metoprolol, Trintellix, Xanax, amitriptyline, Lolo , isosorbide dinitrate 30 mg p.o. b.i.d. Past history also includes migraines. Past Medical History: Also to include anxiety, chronic back pain, depressive disorder, GI bleed, ananth cardial infarction secondary to blood loss, hypertension, disk herniation, mitral valve prolapse, Ros ai-Nallely disease/histiocytosis. Family History: Significant for heart disease, diabetes, cancer. Social History: She drinks alcohol socially. She vapes regularly. She denies smoking or other recr eational drug use. Review of Systems: Ten-point review of systems other than HPI, denies. Physical Examination: General: At the time of my examination, she is awake, alert, and oriented. Psychiatric: Appropriate. Conversive. HEENT: Normocephalic. Sclerae anicteric. Mucous membranes are moist. Oropharynx clear. Neck: Supple without JVD. There is a well-healed scar to the left of midline under neck, otherwise. Chest: Normal to expansion and excursion. Cardiovascular: Regular rate and rhythm bilaterally. Abdomen: Soft with positive right lower quadrant tenderness to palpation. Positive focal peritoniti s. Positive significant guarding and rebound. No obvious hernias appreciated. Well-healed surgical scars evident. Abdomen: Obese. Extremities: No clubbing, cyanosis, or edema. Skin: Warm and dry. Laboratory Data: Revealed a white blood cell count of 9.6, hemoglobin is 15.3, hematocrit of 45.0, p latelet count is 259. Sodium is 138, potassium 3.8, chloride 102, carbon dioxide is 28, BUN 9, creat inine 0.9, glucose is 107, total bilirubin 0.4, AST is less than 10, ALT 17, alkaline phosphatase 137 , lipase is 80. UA is essentially negative. test is currently pending. She had a CT scan of the abdomen and pelvis officially read as similarly diffuse enlarged appendix measuring 9 mm in d iameter but without significant periappendiceal inflammatory changes. Mild diverticulosis without di verticulitis. She had also an abdominal ultrasound on 08/28 officially read as no normal or abnormal appendix identified in the right lower quadrant denotes clear presence of acute appendicitis. No fr ee fluid. Assessment And Plan: This is a 43-year-old woman who comes in with signs and symptoms of acute appen dicitis, right lower quadrant pain, and change in her appendix over the course of the last year by gr oss appearance when compared imaging. However, recent imaging looks very similar to several days ago . Her symptoms are fairly consideration for intermediate risk of acute appendicitis given criteria. 1. IV fluid hydration. 2. Antibiotic coverage. 3. I have explained risks, benefits, and alternatives of diagnostic laparoscopy with laparoscopic lise endectomy including, but not limited to, bleeding, infection, damage to surrounding tissues, need for further operative procedures, injury in the perioperative period, which includes blood clots, heart attack, strokes, other unforeseen complications in the perioperative period, need for more surgery. Patient displayed understanding of above-stated plan and agreed to proceed as indicated. Thank you for this interesting consult. AKIL/ALEKSANDR Voice ID: [id number] Report ID: [id number]
[2024-08-28] MEDS: PIPER TAZO 3.375 GM in NA CHLORIDE 0.9% 100 ML IV SCH (17:00)
[2024-08-28] MEDS: NA CHLORIDE 0.9% 1,000 ML IV SCH (17:15)
--- NOTE | 2024-08-28 17:23 | P.OP ---
Preoperative diagnosis: Acute Appendicitis Postoperative diagnosis: Acute Appendicitis Primary procedure: Laparoscopic Appendectomy Anesthesia: GETA + Local Estimated blood loss: <5cc Specimen: Appendix Findings: Dilated Appendix, multiple small ovarian cysts Complications: None Transferred to: Recovery Room Condition: Good
[2024-08-28] MEDS: MIDAZOLAM HCL 2 MG/2 ML INJ ONE (17:52)
--- NOTE | 2024-08-28 17:55 | OP ---
Date of Procedure: 08/28/2024 Surgeon: Wilian Hyde MD, Preoperative Diagnosis: Acute appendicitis. Postoperative Diagnosis: Acute appendicitis. Procedure Performed: Laparoscopic appendectomy. Anesthesia: General endotracheal plus local with 1% lidocaine with epinephrine. Estimated Blood Loss: Less than 5 cc. Specimen: Vermiform appendix. Findings: Dilated appendix, multiple small ovarian cysts noted. Complications: None. Disposition: The patient transferred to recovery room in good condition. Procedure In Detail: After informed consent was obtained, patient was brought to the operating room, prepped and draped in the usual sterile fashion. After adequate anesthesia was achieved, I anesthe tized an area in the infraumbilical position down to subcutaneous tissue. 5-mm 0-degree optical troc ar was introduced into the abdomen without incident or complication. Insufflation was obtained to 15 mmHg, at this time. There was no injury to vital structures upon entry into the abdomen. Additiona l trocar placed in the epigastrium. This was similarly anesthetized and sharply incised. A 5 mm tro car was placed under direct visualization without incident or complication. The umbilical trocar wa s then upsized to a 12 mm under direct visualization without incident or complication. At this point , I placed an additional 5 mm trocar in the right lower quadrant under direct visualization without i ncident or complication. The patient was positioned head down, right side up position. Ratcheted gr asper was used to grab the patient's appendix, and dissected down to the mesoappendix. The mesoappen diceal window was created with a [place] retractor. Ultimately, a SLIME 45 purple load fired across the base the appendix at the confluence of the cecum with good approximation of tissues. I then took the mesoappendix down using a LigaSure device without incident or complication. There was no hemost atic measures that was required. At this point, the appendix was placed in EndoCatch bag, removed th rough the umbilical trocar site, sent off for pathologic examination. The abdomen was reinsufflated, at this point. The area was copiously irrigated including the pelvis. Ovarian cysts were noted on bilateral ovaries which were small and fluid-filled appearance. The area was copiously irrigated, ramirez ctioned out until completely dry. The patient was positioned back in neutral position. Remainder of the effluent was suctioned out. I then closed the 12 mm trocar site using a Aurelio-Yadira suture passer with a #1 Vicryl in interrupted fashion with good approximation of tissues. The abdomen was t hen desufflated under direct visualization without incident or complication. Remainder of trocars we re removed. All skin incisions were then copiously irrigated and closed with a 4-0 Monocryl in a run deidra fashion. Dermabond was placed over top. The patient tolerated procedure without incident or co mplication, transferred to PACU in good condition. All counts were correct at the end of the case. AKIL/ALEKSANDR Voice ID: [id number] Report ID: [id number]
[2024-08-28] MEDS: HYDROMORPHONE HCL 1 MG/ML INJ ONE (18:07)
[2024-08-28 19:35] VITALS: BMI 27.4
[2024-08-28] MEDS: MORPHINE 2 MG/ML SYR IV PRN (21:40)
[2024-08-28 23:59] VITALS: O2SAT 98
[2024-08-29 04:25] LABS: Absolute Lymphocytes (CBC) 0.8 K/uL (0.7-4.9); Absolute Monocytes 0.3 K/uL (0.1-1.3); Absolute Neutrophil 8.4 K/uL (1.8-8.0); Basophils % 0.2 % (0-1.3); Hemoglobin 12.4 g/dL (12.0-15.0); Lymphocytes % 8.7 % (15.3-44.8); MCH 29.7 pg (27.0-35.0); MCHC 34.5 g/dL (32.0-36.0); MCV 86.2 fL (80-100); MPV 9.1 fL (7.6-11.3); Monocytes % 2.8 % (3.3-12.3); Neutrophils % 88.3 % (41.7-73.7); Platelets 216 thou/uL (152-406); RBC Red Blood Cell Count 4.18 M/uL (3.86-4.86); Red Cell Distribution Width 13.5 % (12.1-15.2)
[2024-08-29 04:40] LABS: Anion Gap 12.4 mEq/L (5.0-15.0); Magnesium 2.1 mg/dL (1.6-2.4); Phosphorus 4.3 mg/dL (2.5-4.9); Potassium 4.4 mEq/L (3.5-5.1)
[2024-08-29] MEDS: HYDROCODONE/APAP 5/325 MG TAB PO PRN (04:54)
--- NOTE | 2024-08-29 15:07 | P.DS ---
Admission Date: 08/28/24 Discharge Date: 08/29/24 Reason for Admission: Acute appendicitis Brief History of Present Illness: Diagnosis Acute appendicitis intractable RLQ pain Anxiety depressive disorder chronic back pain GI Bleed Hypertensive heart attack 2/2 blood loss c section HPI 08/28/2024 Yohana Perez is a 43 year old female wtih pmhx Anxiety; chronic back pain; depressive disorder; GI Bleed; heart attack 2/2 blood loss c section; Hypertensive who presents to the ED with right lower quadrant pain that began last night. Laboratory evaluation significant for lipase 80, Abdominal ultrasound reports "No normal or abnormal appendix identified in the right lower quadrant. This does not exclude the presence of acute appendicitis. No free fluid." Yohana will be admitted to the hospitalist service for acute appendicitis, Dr. Hyde consulted, Hospital Course: Acute appendicitis intractable RLQ pain Patient was seen by Dr. Hyde, taken to surgery for laparoscopic appendectomy same day Patient is tolerating p.o. diet and ambulating independently in her room Dr. Hyde has evaluated and cleared for discharge home Anxiety depressive disorder chronic back pain GI Bleed Hypertensive heart attack 2/2 blood loss c section -continued home medications On 08/29/24, Yohana was seen on morning rounds by hospitalist and Dr. Hyde. She is hemodynamcically stable and tolerating PO diet. Dr. Hyde has cleared her for discharge with a follow up at his clinic. Augmentin has been prescribed. Physical Exam General: Alert and Oriented x3, NAD HEENT: Atraumatic, Normocephalic Neck: Supple, 2+ carotid pulse no bruit Respiratory: Clear BBS, Normal air movement, on RA Cardiovascular: Normal pulses, RRR, S1 S2 present Capillary refill: <2 Seconds Gastrointestinal: Soft and benign, Tenderness (RLQ), incisions approximated Musculoskeletal: No clubbing Integumentary: No rashes Neurological: Normal speech, Normal tone <Elham Linares - Last Filed: 08/29/24 18:34> Admission Date: 08/28/24 Discharge Date: 08/29/24 <Drake Murguia - Last Filed: 08/29/24 19:11> Disposition: ROUTINE DISCHARGE Discharge Condition: GOOD Vital Signs/Physical Exam: Temp Pulse Resp BP Pulse Ox 97.9 F 67 18 105/67 98 08/29/24 12:00 08/29/24 12:00 08/29/24 12:32 08/29/24 12:00 08/29/24 12:00 Laboratory Data at Discharge: WBC 9.50 thou/uL (4.3-10.9) 08/29/24 04:13 Hgb 12.4 g/dL (12.0-15.0) D 08/29/24 04:13 Hct 36.0 % (36.0-45.0) 08/29/24 04:13 Plt Count 216 thou/uL (152-406) 08/29/24 04:13 Sodium 139 mEq/L (136-145) 08/29/24 04:13 Potassium 4.4 mEq/L (3.5-5.1) D 08/29/24 04:13 BUN 11 mg/dL (7-18) 08/29/24 04:13 Creatinine 0.66 mg/dL (0.55-1.02) 08/29/24 04:13 Glucose 119 mg/dL (74-106) H 08/29/24 04:13 Phosphorus 4.3 mg/dL (2.5-4.9) 08/29/24 04:13 Magnesium 2.1 mg/dL (1.6-2.4) 08/29/24 04:13 Total Bilirubin 0.4 mg/dL (0.2-1.0) 08/28/24 12:12 AST < 10 U/L (15-37) L 08/28/24 12:12 ALT 17 U/L (13-56) 08/28/24 12:12 Alkaline Phosphatase 137 U/L (45-117) H 08/28/24 12:12 Lipase 80 U/L (13-75) H 08/28/24 12:12 <Elham Linares - Last Filed: 08/29/24 18:34> Vital Signs/Physical Exam: Temp Pulse Resp BP Pulse Ox 97.8 F 60 18 113/72 98 08/29/24 16:00 08/29/24 16:00 08/29/24 16:19 08/29/24 16:00 08/29/24 16:00 Laboratory Data at Discharge: WBC 9.50 thou/uL (4.3-10.9) 08/29/24 04:13 Hgb 12.4 g/dL (12.0-15.0) D 08/29/24 04:13 Hct 36.0 % (36.0-45.0) 08/29/24 04:13 Plt Count 216 thou/uL (152-406) 08/29/24 04:13 Sodium 139 mEq/L (136-145) 08/29/24 04:13 Potassium 4.4 mEq/L (3.5-5.1) D 08/29/24 04:13 BUN 11 mg/dL (7-18) 08/29/24 04:13 Creatinine 0.66 mg/dL (0.55-1.02) 08/29/24 04:13 Glucose 119 mg/dL (74-106) H 08/29/24 04:13 Phosphorus 4.3 mg/dL (2.5-4.9) 08/29/24 04:13 Magnesium 2.1 mg/dL (1.6-2.4) 08/29/24 04:13 Total Bilirubin 0.4 mg/dL (0.2-1.0) 08/28/24 12:12 AST < 10 U/L (15-37) L 08/28/24 12:12 ALT 17 U/L (13-56) 08/28/24 12:12 Alkaline Phosphatase 137 U/L (45-117) H 08/28/24 12:12 Lipase 80 U/L (13-75) H 08/28/24 12:12 <Drake Murguia - Last Filed: 08/29/24 19:11> Diet: Regular Activity: No lifting more than 10 lbs <Elham Linares - Last Filed: 08/29/24 18:34> Physician Review: Patient Assessed, Agree with Above Assessment and Plan <Drake Murguia - Last Filed: 08/29/24 19:11> Home Medications: Cariprazine HCl [Vraylar] 3 mg PO DAILY 09/10/23 Metoprolol Tartrate 50 mg PO BID 02/15/24 Vortioxetine Hydrobromide [Trintellix] 20 mg PO BEDTIME 02/15/24 Alprazolam [Xanax] 0.5 mg PO TID 06/28/24 Isosorbide Dinitrate 30 mg PO BID 06/28/24 Amox/Clavulanate [Augmentin 875-125 Tab] 875 mg PO BID 5 Days #10 tab 08/29/24 New Medications: Amox/Clavulanate [Augmentin 875-125 Tab] 875 mg PO BID 5 Days #10 tab Physician Discharge Instructions: 1. Please call and schedule a follow-up appointment with your PCP in 3-5 days - Please follow-up with your PCP for medication refills/adjustments 2. Please call and schedule a follow-up appointment with Barrett in 3-5 days 3. Continue regular diet, concentrate on hydration 4. activity restrictions fall risk, do not lift greater than 10 pounds for 1 week 5. Return to the ED if symptoms worsen New medications Augmentin 875 twice daily x 5 days Followup: Wilian Hyde MD [ACTIVE - CAN ADMIT] - NONE,NONE [Primary Care Provider] -
[2024-08-29 17:01] VITALS: BP 113/72; TEMP 97.8
== END 2024-08-29 17:12 | disposition home or self-care (01) ==
LOC: ER 11:11 → ERHOLD 15:40 → 2ND 18:18
PROVIDERS: ADMIT Hospitalist; ATTEND Family Medicine
PROC: 0DTJ4ZZ Resection of Appendix, Percutaneous Endoscopic Approach (ICD-10-PCS; principal; 2024-08-28 16:00)
DX: K35.80 Unspecified acute appendicitis (principal); R10.31 Right lower quadrant pain; F41.9 Anxiety disorder, unspecified; F32.A Depression, unspecified; M54.9 Dorsalgia, unspecified; K92.2 Gastrointestinal hemorrhage, unspecified; I10 Essential (primary) hypertension
CPT/HCPCS: 96365; 85025 ×2; 81001; 80048; 36415; 86900; 83735; 86850; 84100; 86901; 88304; 83690; 80053; 74177; 76705; 96375; 99285; 44970; Q9967; J2704; J2710; J2003; J2543 ×3; J2250 ×2; J3010 ×3; J1100; J2270 ×4; J1171; J2405 ×2; J7030 ×3; G0378

== ENCOUNTER 2024-12-22 12:02 | Observation (INO) | payer BC ==
--- NOTE | 2024-12-22 13:02 | RAD REPORT ---
EXAM: Chest Single View HISTORY: 44 years Female CHEST PAIN COMPARISON: 02/15/2024 FINDINGS: LUNGS/PLEURA: The lungs are clear. No pleural effusions or pneumothorax. No pulmonary edema. CARDIAC/MEDIASTINUM: The cardiac silhouette is within normal limits. UPPER ABDOMEN: No significant abnormality. BONES: No acute abnormality. LINES/TUBES/OTHER: N/A IMPRESSION: No evidence of acute cardiopulmonary disease.
[2024-12-22] MEDS ORDERED: ONDANSETRON 4 MG/2 ML VIAL ONE (13:20)
[2024-12-22 13:21] LABS: Absolute Lymphocytes (CBC) 2.8 K/uL (0.7-4.9); Hematocrit 47.7 % (36.0-45.0); Hemoglobin 16.1 g/dL (12.0-15.0); MCH 29.3 pg (27.0-35.0); MCHC 33.8 g/dL (32.0-36.0); MCV 86.8 fL (80-100); MPV 9.6 fL (7.6-11.3); Nucleated RBC Absolute Count 0.0 (0-0); Nucleated Red Blood Cells % 0.1 % (0-0); RBC Red Blood Cell Count 5.49 M/uL (3.86-4.86); White Blood Count 9.20 thou/uL (4.3-10.9)
[2024-12-22] MEDS ORDERED: MORPHINE 4 MG/ML SYR ONE (13:21)
[2024-12-22 13:31] LABS: PT Prothrombin Time 11.5 SECONDS (10-13.0); Protime INR 1.02
[2024-12-22 13:46] LABS: ALT/SGPT 21 U/L (13-56); AST/SGOT 11 U/L (15-37); Albumin 4.1 g/dL (3.4-5.0); Albumin/Globulin Ratio 1.0 (1.1-1.8); Alkaline Phosphatase 125 U/L (45-117); Anion Gap 10.0 mEq/L (5.0-15.0); BUN Blood Urea Nitrogen 7 mg/dL (7-18); Globulin 4.2 g/dL (2.3-3.5); Glucose Level 100 mg/dL (74-106); Magnesium 2.6 mg/dL (1.6-2.4); NT PRO-BNP 10 pg/mL (<125); Potassium 4.0 mEq/L (3.5-5.1)
[2024-12-22 13:52] LABS: Bilirubin Indirect, Calculated 0.0 mg/dL (0.2-0.8); Troponin High Sensitivity < 3.0 pg/mL (<58.9)
--- NOTE | 2024-12-22 13:55 | ER ---
Nurse's Notes [facility] Name: Yohana Perez Age: 44 yrs Sex: Female : 1980 Arrival Date: 12/22/2024 Time: 12:02 Bed 19 Private MD: Diagnosis: Chest pain, unspecified;Supraventricular tachycardia Presentation: 12/22 12:31 Chief complaint: Sent by Dr. Mathis for frequent episodes of SVT and chest pressure. hb Coronavirus screen: At this time, the client does not indicate any symptoms associated with coronavirus-19. Ebola Screen: No symptoms or risks identified at this time. Initial Sepsis Screen: Does the patient meet any 2 criteria? No. Patient's initial sepsis screen is negative. Does the patient have a suspected source of infection? No. Patient's initial sepsis screen is negative. Risk Assessment: Do you want to hurt yourself or someone else? Patient reports no desire to harm self or others. Onset of symptoms was December 22, 2024. 12:31 Method Of Arrival: Ambulatory hb 12:31 Acuity: NICOLASA 2 hb Historical: - Allergies: 12:32 No Known Drug Allergies; hb - Home Meds: 12:32 Ambien 10 mg Oral tab 1 tab once daily [Active]; Metoprolol Tartrate Oral [Active]; hb Imdur Oral [Active]; Trintellix oral [Active]; Vraylar oral [Active]; Xanax Oral [Active]; Estradiol Oral [Active]; progesterone micronized oral [Active]; Singulair Oral [Active]; hydrocodone-acetaminophen 5-325 mg Oral tab 1 tab every 4-6 hours [Active]; - PMHx: 12:32 chronic back pain; heart attack due to trauma; Hypertensive disorder; Migraine; Kidney hb stones; GI Bleed; depressive disorder; Anxiety; - PSHx: 12:32 section; Emergency laparotomy; hb - Immunization history:: Adult Immunizations unknown. - Infectious Disease History:: Denies. - Social history:: Smoking status: unknown. Screenin:31 [facility] ED Fall Risk Assessment (Adult) History of falling in the last 3 months, db including since admission No falls in past 3 months (0 pts) Confusion or Disorientation No (0 pts) Intoxicated or Sedated Impaired Gait No (0 pts) Mobility Assist Device Used No (0 pt) Altered Elimination No (0 pt) Score/Fall Risk Level 0 - 2 = Low Risk Oriented to surroundings, Maintained a safe environment. Abuse screen: Denies threats or abuse. Denies injuries from another. Nutritional screening: No deficits noted. Tuberculosis screening: No symptoms or risk factors identified. Assessment: 13:30 Reassessment: Patient appears in no apparent distress at this time. Patient and/or db family updated on plan of care and expected duration. Pain level reassessed. Patient is alert, oriented x 3, equal unlabored respirations, skin warm/dry/pink. Pain: Complains of pain in chest Pain does not radiate. Pain began gradually. Cardiovascular: Reports chest pain. Respiratory: Airway is patent Respiratory effort is even, unlabored, Respiratory pattern is regular, symmetrical. 14:30 Reassessment: Patient appears in no apparent distress at this time. Patient and/or db family updated on plan of care and expected duration. Pain level reassessed. Patient is alert, oriented x 3, equal unlabored respirations, skin warm/dry/pink. Reassessment: Patient states feeling better. General: Appears in no apparent distress. comfortable, Behavior is calm, cooperative. Neuro: Level of Consciousness is awake, alert, obeys commands, Oriented to person, place, time, situation. 14:33 Reassessment: HOSPITALIST AT PATIENT BEDSIDE. db 15:57 Reassessment: Patient appears in no apparent distress at this time. Patient and/or db family updated on plan of care and expected duration. Pain level reassessed. Patient is alert, oriented x 3, equal unlabored respirations, skin warm/dry/pink. Vital Signs: 12:31 BP 141 / 105; Pulse 87; Resp 15; Temp 98.4(O); Pulse Ox 100% on R/A; Weight 75.3 kg; hb Height 5 ft. 2 in. ; Pain 8/10; 13:12 BP 138 / 99; Pulse 87; Resp 16; Pulse Ox 99% on R/A; db 14:00 BP 137 / 90; Pulse 76; Resp 18; Pulse Ox 98% on R/A; db 14:30 BP 128 / 88; Pulse 70; Resp 20; Pulse Ox 98% on R/A; db 15:30 BP 128 / 95; Pulse 70; Resp 18; Pulse Ox 98% on R/A; db 12:31 Body Mass Index 30.36 (75.30 kg, 157.48 cm) hb 12:31 Pain Scale: Adult hb ED Course: 12:04 Patient arrived in ED. mr 12:11 Ana Reece PA-C is PHCP. sb4 12:11 Blade Haas MD is Attending Physician. sb4 12:32 Triage completed. hb 12:37 Client placed on continuous cardiac and pulse oximetry monitoring. NIBP monitoring hb applied. monitor worker on. Pulse ox on. NIBP on. 12:52 XRAY Chest (1 view) In Process Unspecified. EDMS 13:02 Shaista Gomez, RN is Primary Nurse. db 13:04 EKG done, by ED staff, reviewed by Ana Reece PA-C. rk3 13:54 Yuriy Haas MD is Hospitalizing Provider. sb4 14:31 Patient has correct armband on for positive identification. Bed in low position. Call db light in reach. Side rails up X 1. 14:32 Provided Education on: ADMISSION. Warm blanket given. Pillow given. db 14:32 No provider procedures requiring assistance completed. Patient admitted, IV remains in db place. Patient maintains SpO2 saturation greater than 95% on room air. 15:30 Patient placed. db Administered Medications: 13:25 Drug: morphine IVP or IV 4 mg IVP once over 4 mins Route: IVP; Infused Over: 4 mins; db Site: right antecubital; 15:30 Follow up: Response: No adverse reaction db 13:25 Drug: Ondansetron IVP 4 mg IVP once; over 2 minutes Route: IVP; Site: right antecubital;db 15:30 Follow up: Response: No adverse reaction db Medication: 14:30 VIS not applicable for this client. db Outcome: 13:54 Decision to Hospitalize by Provider. sb4 15:57 Admitted to Med/surg room 215, db 15:57 Condition: stable 15:57 Instructed on the need for admit, 15:59 Patient left the ED. db Signatures: Dispatcher [employer] EDAZ Cherelle Ellsworth, Bogdan Reg RichmondAdelita, RN RN Shaista Gomez, RN RN db Ana Reece PA-C PA-C sb4 Sunshine Diggs [id number]
--- NOTE | 2024-12-22 13:55 | EDPHYS ---
Physician Documentation [facility] Name: Yohana Perez Age: 44 yrs Sex: Female : 1980 Arrival Date: 12/22/2024 Time: 12:02 Bed 19 Private MD: ED Physician Blade Haas HPI: 12/22 13:03 This 44 yrs old Female presents to ER via Ambulatory with complaints of Chest Pain, sb4 Sent by Dr. Mathis. 13:03 Patient reports a history of cardiac disease and SVT. States that she has been having sb4 frequent episodes of SVT over the past few months. She was most recently wearing a heart monitor that captured a few episodes. She went to her brake repairer railroad this morning and told him she was having some chest pain so she was sent over to the ED for further eval and possible catheterization. Historical: - Allergies: 12:32 No Known Drug Allergies; hb - Home Meds: 12:32 Ambien 10 mg Oral tab 1 tab once daily [Active]; Metoprolol Tartrate Oral [Active]; hb Imdur Oral [Active]; Trintellix oral [Active]; Vraylar oral [Active]; Xanax Oral [Active]; Estradiol Oral [Active]; progesterone micronized oral [Active]; Singulair Oral [Active]; hydrocodone-acetaminophen 5-325 mg Oral tab 1 tab every 4-6 hours [Active]; - PMHx: 12:32 chronic back pain; heart attack due to trauma; Hypertensive disorder; Migraine; Kidney hb stones; GI Bleed; depressive disorder; Anxiety; - PSHx: 12:32 section; Emergency laparotomy; hb - Immunization history:: Adult Immunizations unknown. - Infectious Disease History:: Denies. - Social history:: Smoking status: unknown. ROS: 13:03 Constitutional: Negative for fever, chills, and weight loss, sb4 13:03 Cardiovascular: Positive for chest pain, palpitations, 13:03 All other systems are negative, Exam: 13:03 Head/Face: Normocephalic, atraumatic. Eyes: Extra-ocular motions intact. Periorbital sb4 areas with no swelling, redness, or edema. ENT: Mucous membranes moist. Cardiovascular: Regular rate and rhythm with a normal S1 and S2. Respiratory: No increased work of breathing, no retractions or nasal flaring. Abdomen/GI: Soft, non-tender, no distension. Skin: Warm, dry with normal turgor. Normal color with no rashes, no lesions, and no evidence of cellulitis. 13:03 Constitutional: The patient appears in no acute distress, alert, awake, Vital Signs: 12:31 BP 141 / 105; Pulse 87; Resp 15; Temp 98.4(O); Pulse Ox 100% on R/A; Weight 75.3 kg; hb Height 5 ft. 2 in. ; Pain 8/10; 13:12 BP 138 / 99; Pulse 87; Resp 16; Pulse Ox 99% on R/A; db 14:00 BP 137 / 90; Pulse 76; Resp 18; Pulse Ox 98% on R/A; db 14:30 BP 128 / 88; Pulse 70; Resp 20; Pulse Ox 98% on R/A; db 15:30 BP 128 / 95; Pulse 70; Resp 18; Pulse Ox 98% on R/A; db 12:31 Body Mass Index 30.36 (75.30 kg, 157.48 cm) hb 12:31 Pain Scale: Adult hb MDM: 12:12 Medical Screening Exam initiated sb4 13:06 Differential diagnosis: anxiety, ACS, arrhythmia, electrolyte abnormality. sb4 13:53 Data reviewed: vital signs, nurses notes, lab test result(s), EKG, radiologic studies, sb4 and as a result, I will admit patient. Consideration of Admission/Observation Patient was admitted/placed on observation. Management of patient was discussed with the following: Flight Controls Engineer: mikael Mathis pt admitted for cath tomorrow. Care significantly affected by the following chronic conditions: Hypertension. Counseling: I had a detailed discussion with the patient and/or guardian regarding the historical points, exam findings, and any diagnostic results supporting the discharge/admit diagnosis, the presence of at least one elevated blood pressure reading (>120/80) during this emergency department visit, lab results, radiology results, the need for further work-up and treatment in the hospital. 12/22 12:35 Order name: Basic Metabolic Panel; Complete Time: 13:53 sb4 12/22 12:35 Order name: CBC with Diff; Complete Time: 13:21 sb4 12/22 12:35 Order name: LFT's; Complete Time: 13:53 sb4 12/22 12:35 Order name: Magnesium; Complete Time: 13:53 sb4 12/22 12:35 Order name: NT PRO-BNP; Complete Time: 13:53 sb4 12/22 12:35 Order name: PT-INR; Complete Time: 13:33 sb4 12/22 12:35 Order name: Troponin HS; Complete Time: 13:53 sb4 12/22 14:18 Order name: Lactate w/ 2H reflex if indic. EDMS 12/22 14:18 Order name: Magnesium EDMS 12/22 14:18 Order name: Phosphorus EDMS 12/22 14:18 Order name: Basic Metabolic Panel EDMS 12/22 14:18 Order name: Basic Metabolic Panel EDMS 12/22 14:18 Order name: CBC with Automated Diff EDMS 12/22 14:18 Order name: CBC with Automated Diff EDMS 12/22 14:18 Order name: Lipid Profile EDMS 12/22 14:18 Order name: Lipid Profile EDMS 12/22 14:18 Order name: Troponin High Sensitivity EDMS 12/22 14:18 Order name: Troponin High Sensitivity EDMS 12/22 14:18 Order name: Troponin High Sensitivity EDMS 12/22 14:18 Order name: Troponin High Sensitivity EDMS 12/22 12:35 Order name: XRAY Chest (1 view); Complete Time: 13:03 sb4 12/22 14:19 Order name: Echo with Doppler EDMS 12/22 12:35 Order name: Cardiac monitoring; Complete Time: 13:03 sb4 12/22 12:35 Order name: EKG - Nurse/Tech; Complete Time: 13:02 sb4 12/22 12:35 Order name: IV Saline Lock; Complete Time: 13:25 sb4 12/22 12:35 Order name: Labs collected and sent; Complete Time: 13:25 sb4 12/22 12:35 Order name: O2 Per Protocol; Complete Time: 13:03 sb4 12/22 12:35 Order name: O2 Sat Monitoring; Complete Time: 13:03 sb4 EC:03 Rate is 80 beats/min. Rhythm is regular, Normal Sinus Rhythm. RI interval is shortened sb4 at 106 msec. QRS interval is normal at 74 msec. QT interval is normal at 400 msec. No Q waves. T waves are Normal. No ST changes noted. Clinical impression: No evidence of ischemia. Interpreted by me. Reviewed by me. Administered Medications: 13:25 Drug: morphine IVP or IV 4 mg IVP once over 4 mins Route: IVP; Infused Over: 4 mins; db Site: right antecubital; 15:30 Follow up: Response: No adverse reaction db 13:25 Drug: Ondansetron IVP 4 mg IVP once; over 2 minutes Route: IVP; Site: right antecubital;db 15:30 Follow up: Response: No adverse reaction db Disposition: 16:45 Co-signature as Attending Physician, Blade Haas MD. rn Disposition Summary: 12/22/24 13:54 Hospitalization Ordered Notes: Hospitalization Status: Inpatient Admission sb4 Provider: Yuriy Haas sbNydia Location: Telemetry/[facility] (Inpatient) sb4 Condition: Fair sb4 Problem: an ongoing problem sb4 Symptoms: are unchanged sb4 Bed/Room Type: Standard sb4 Room Assignment: 215(12/22/24 14:33) ja1 Diagnosis - Chest pain, unspecified sb4 - Supraventricular tachycardia sb4 Forms: - Medication Reconciliation Form sb4 - SBAR form sb4 - Leadership Thank You Letter sb4 Signatures: Dispatcher [employer] Rose Morin RN RN iw Nieto, Roman, MD MD rn Baxter, Heather, RN RN hb Aguilar, Jose, RN RN ja1 Benton, Danielle, RN RN db Brown, Sophia, PA-C PAMichelle sb4 Corrections: (The following items were deleted from the chart) 12:35 12:35 BASIC METABOLIC PANEL+C.LAB.BRZ ordered. EDMS EDMS 12:35 12:35 CBC+H.LAB.BRZ ordered. EDMS EDMS 12:35 12:35 HEPATIC FUNCTION+C.LAB.BRZ ordered. EDMS EDMS 12:35 12:35 MAGNESIUM+C.LAB.BRZ ordered. EDMS EDMS 12:35 12:35 PROBNP+C.LAB.BRZ ordered. EDMS EDMS 12:35 12:35 PROTIME (+INR)+COAG.LAB.BRZ ordered. EDMS EDMS 12:35 12:35 Troponin High Sensitivity+C.LAB.BRZ ordered. EDMS EDMS 12:35 12:35 Chest Single View+RAD.RAD.BRZ ordered. EDMS EDMS 14: 13:54 sb4 iw 14 14:31 202 iw ja1
[2024-12-22] MEDS ORDERED: ONDANSETRON 4 MG/2 ML VIAL IV PRN (14:14)
[2024-12-22] MEDS ORDERED: ALBUTEROL 2.5 MG/3 ML NEB SOL NEB PRN (14:14)
[2024-12-22] MEDS ORDERED: IPRATROPIUM BROM 0.5MG/2.5ML NEB PRN (14:14)
--- NOTE | 2024-12-22 14:22 | P.HP ---
Certification for Inpatient Patient admitted to: Observation With expected LOS: <2 Midnights Practitioner: I am a practitioner with admitting privileges, knowledge of patient current condition, hospital course, and medical plan of care. Services: Services provided to patient in accordance with Admission requirements found in Title 42 Section 412.3 of the Code of Federal Regulations Patient History Date of Service: 12/22/24 Reason for admission: SVT History of Present Illness: Patient is a 44-year-old female with a past medical history of hypertension, anxiety, UT after blood loss experienced during . She presents to the ER upon cardiology recommendation for evaluation of chest pain. Patient was having a routine visit with her penetration tester due to her history of SVT. She has a known history of SVT and had episode capture on event monitor. Her symptoms have progressed for the past few weeks and she is not experiencing chest pain. Patient had a left heart cath in September 2023 which revealed coronary vasospasm but no obstructions. She was placed on Imdur and beta-elgin at the time. During this visit, her initial troponin is negative. The EKG is normal except for short CA interval. Patient still appears to be in distress. She is going to be n.p.o. after midnight for left heart cath tomorrow. Allergies No Known Drug Allergies Allergy (Verified 06/28/24 13:44) Unknown Home Medications: Cariprazine HCl [Vraylar] 3 mg PO DAILY 09/10/23 Metoprolol Tartrate 50 mg PO BID 02/15/24 Vortioxetine Hydrobromide [Trintellix] 20 mg PO BEDTIME 02/15/24 Alprazolam [Xanax] 0.5 mg PO TID 06/28/24 Isosorbide Dinitrate 30 mg PO BID 06/28/24 Amox/Clavulanate [Augmentin 875-125 Tab] 875 mg PO BID 5 Days #10 tab 08/29/24 - Past Medical/Surgical History Diabetic: No -: migraine -: HTN -: UT- 2003 -: DISC HERNIATION L5 S1 -: AFIB -: MITRAL VALVE PROLAPSE -: GIB -: RLS -: depression/anxiety -: kidney stone -: x 3 -: exlap secondary to c/section -: Lymph Nodes Resection Psychosocial/ Personal History: Lives at home with her and 3 children - Family History Father -: Heart disease, Diabetes, Cancer Notes: . recently Mother -: Cancer Notes: ovarian - Social History Alcohol use: Yes CD- Drugs: No Caffeine use: Yes Physical Examination - Physical Exam General: Acute distress HEENT: Atraumatic, Normocephalic Neck: Supple Respiratory: Clear to auscultation bilaterally, Normal air movement Cardiovascular: No edema, Normal pulses, Regular rate/rhythm, Normal S1 S2 Neurological: Normal speech - Studies Laboratory Data (last 24 hrs) 12/22/24 12/22/24 12/22/24 13:14 13:14 13:14 WBC 9.20 Hgb 16.1 H Hct 47.7 H Plt Count 249 PT 11.5 INR 1.02 Sodium 139 Potassium 4.0 BUN 7 Creatinine 0.85 Glucose 100 Magnesium 2.6 H Total Bilirubin 0.2 AST 11 L ALT 21 Alkaline Phosphatase 125 H Assessment and Plan - Plan Assessment 44-year-old female with a past medical history of hypertension, UT and SVT currently being admitted for chest pain. Patient has been having several episodes of SVT. She complained of chest pain this morning during a routine visit with her penetration tester. While in the ER, her troponin was negative. BNP unremarkable. Chest pain History of SVT History of UT Hypertension Plan: Will admit under observation with telemetry Trend troponin Will obtain a 2D echo and lipid panel Morphine, oxygen, nitroglycerin and aspirin N.p.o. after midnight for heart cath tomorrow Cardiology has been consulted - Advance Directives Does patient have a Living Will: No Does patient have a Durable POA for Healthcare: No
[2024-12-22] MEDS: ASPIRIN EC 81 MG TAB PO ONE (16:40)
[2024-12-22] MEDS: NA CHLORIDE 0.9% 1,000 ML IV SCH (16:40)
[2024-12-22] MEDS: MORPHINE 2 MG/ML SYR IV PRN (17:15)
[2024-12-22 17:47] VITALS: BMI 30.3
[2024-12-22 19:52] LABS: Magnesium 2.4 mg/dL (1.6-2.4)
[2024-12-22] MEDS: MONTELUKAST 10 MG TAB PO SCH (21:00)
[2024-12-22] MEDS: ALPRAZOLAM 1 MG TABLET PO SCH (21:00)
[2024-12-22] MEDS: ATORVASTATIN 40 MG TAB PO SCH (21:49)
[2024-12-22 22:01] VITALS: O2SAT 97
[2024-12-23 04:28] LABS: Absolute Lymphocytes (CBC) 1.8 K/uL (0.7-4.9); Hematocrit 39.6 % (36.0-45.0); Hemoglobin 13.7 g/dL (12.0-15.0); MCH 30.0 pg (27.0-35.0); MCHC 34.6 g/dL (32.0-36.0); MCV 86.6 fL (80-100); MPV 9.3 fL (7.6-11.3); Nucleated RBC Absolute Count 0.0 (0-0); Nucleated Red Blood Cells % 0.3 % (0-0); RBC Red Blood Cell Count 4.57 M/uL (3.86-4.86); White Blood Count 7.80 thou/uL (4.3-10.9)
[2024-12-23 04:48] LABS: Anion Gap 10.4 mEq/L (5.0-15.0); BUN Blood Urea Nitrogen 11.0 mg/dL (7-18); Glucose Level 101.0 mg/dL (74-106); HDL Cholesterol 42.0 mg/dL (40-60); LDL Cholesterol, Calculated 102.0 mg/dL (<130); LDL Cholesterol,Calc NonReport 102.0; Potassium 4.4 mEq/L (3.5-5.1)
[2024-12-23] MEDS: ENOXAPARIN 40 MG/0.4 ML SQ SCH (08:59)
[2024-12-23] MEDS ORDERED: PROGESTERONE,MICRONIZED 100 MG CAP PO SCH (09:00)
[2024-12-23] MEDS: PROGESTERONE MICRONIZED 100 MG PO SCH (09:00)
[2024-12-23] MEDS: CARIPRAZINE HCL 3 MG PO SCH (09:08)
[2024-12-23] MEDS: ISOSORBIDE DINITRATE 30 MG PO SCH (09:08)
[2024-12-23] MEDS: ESTRADIOL 2 MG PO SCH (09:08)
[2024-12-23] MEDS: METOPROLOL TAR 25 MG TAB PO SCH (09:10)
[2024-12-23] MEDS: ASPIRIN EC 81 MG TAB PO SCH (09:11)
[2024-12-23] MEDS ORDERED: LIDOCAINE 1% 20 ML MDV ONE (11:34)
[2024-12-23] MEDS ORDERED: HEPA 1000U/500MLS 2,000 UNIT/1,000 ML BAG IV ONE (11:34)
[2024-12-23] MEDS ORDERED: VERAPAMIL HCL 10 MG/4 ML VIAL IV ONE (11:34)
[2024-12-23] MEDS ORDERED: HEPARIN 10,000 UNIT/10 ML VIAL IV ONE (11:34)
[2024-12-23] MEDS ORDERED: HEPARIN 5000 UNIT/ML 1 ML VIAL ONE (11:35)
[2024-12-23] MEDS ORDERED: NA CHLORIDE 0.9% 500 ML ONE (11:35)
[2024-12-23] MEDS: NA CHLORIDE 0.9% 500 ML ONE (11:41)
[2024-12-23] MEDS: FENTANYL CITR 100 MCG/2 ML ONE (11:52)
[2024-12-23] MEDS: MIDAZOLAM HCL 2 MG/2 ML INJ ONE (11:52)
[2024-12-23] MEDS: DILTIAZEM HCL 120 MG SR CAP PO SCH (13:16)
[2024-12-23] MEDS: NITROGLYCERIN 0.4 MG/TAB SL PRN (13:16)
--- NOTE | 2024-12-23 14:43 | P.DS ---
Admission Date: 12/22/24 Discharge Date: 12/23/24 Disposition: ROUTINE DISCHARGE Discharge Condition: GOOD Reason for Admission: SVT Brief History of Present Illness: Patient is a 44-year-old female with a past medical history of hypertension, anxiety, [place] after blood loss experienced during . She presents to the ER upon cardiology recommendation for evaluation of chest pain. Patient was having a routine visit with her customer experience strategist due to her history of SVT. She has a known history of SVT and had episode capture on event monitor. Her symptoms have progressed for the past few weeks and she is not experiencing chest pain. Patient had a left heart cath in September 2023 which revealed coronary vasospasm but no obstructions. She was placed on Imdur and beta-elgin at the time. During this visit, her initial troponin is negative. The EKG is normal except for short CO interval. Patient still appears to be in distress. She is going to be n.p.o. after midnight for left heart cath tomorrow. Hospital Course: Patient underwent cardiac cath which was unremarkable. Her medication were modified to include diltiazem. Nitroglycerin has been discontinued as per cardiology recommendation. She will continue her home dose of metoprolol. Patient's hospital course was unremarkable. Vital Signs/Physical Exam: Temp Pulse Resp BP Pulse Ox 98.3 F 67 16 126/85 98 12/23/24 08:00 12/23/24 08:00 12/23/24 08:00 12/23/24 08:00 12/23/24 08:00 General: In no apparent distress, Cooperative HEENT: Atraumatic, Normocephalic Respiratory: Other (breathing is not laboured) Cardiovascular: No edema Neurological: Normal speech Laboratory Data at Discharge: WBC 7.80 thou/uL (4.3-10.9) 12/23/24 04:14 Hgb 13.7 g/dL (12.0-15.0) D 12/23/24 04:14 Hct 39.6 % (36.0-45.0) 12/23/24 04:14 Plt Count 208 thou/uL (152-406) 12/23/24 04:14 PT 11.5 SECONDS (10-13.0) 12/22/24 13:14 INR 1.02 12/22/24 13:14 Sodium 141 mEq/L (136-145) 12/23/24 04:14 Potassium 4.4 mEq/L (3.5-5.1) 12/23/24 04:14 BUN 11 mg/dL (7-18) 12/23/24 04:14 Creatinine 0.86 mg/dL (0.55-1.02) 12/23/24 04:14 Glucose 101 mg/dL (74-106) 12/23/24 04:14 Phosphorus 3.9 mg/dL (2.5-4.9) 12/22/24 19:11 Magnesium 2.4 mg/dL (1.6-2.4) 12/22/24 19:11 Total Bilirubin 0.2 mg/dL (0.2-1.0) 12/22/24 13:14 AST 11 U/L (15-37) L 12/22/24 13:14 ALT 21 U/L (13-56) 12/22/24 13:14 Alkaline Phosphatase 125 U/L (45-117) H 12/22/24 13:14 Triglycerides 155 mg/dL (<150) H 12/23/24 04:14 Cholesterol 175 mg/dL (<200) 12/23/24 04:14 HDL Cholesterol 42 mg/dL (40-60) 12/23/24 04:14 Cholesterol/HDL Ratio 4.17 12/23/24 04:14 Home Medications: Metoprolol Tartrate 50 mg PO BID 02/15/24 Alprazolam [Xanax] 0.5 tab PO BID 06/28/24 Cariprazine HCl [Vraylar] 3 mg PO DAILY 12/22/24 Estradiol 2 mg PO DAILY 12/22/24 Hydrocodone Bit/Acetaminophen [Hydrocodon-Acetaminophn 10-325] 1 tab PO BID PRN 12/22/24 Montelukast Sodium [Singulair] 10 mg PO BEDTIME 12/22/24 Progesterone, Micronized [Progesterone] 100 mg PO DAILY 12/22/24 Vortioxetine Hydrobromide [Trintellix] 20 mg PO BEDTIME 12/22/24 Aspirin [Aspirin EC 81 MG] 81 mg PO DAILY #30 tab 12/23/24 Diltiazem Cd [Cardizem Cd*] 120 mg PO DAILY #30 cap 12/23/24 New Medications: Aspirin [Aspirin EC 81 MG] 81 mg PO DAILY #30 tab Diltiazem Cd [Cardizem Cd*] 120 mg PO DAILY #30 cap Followup: Edd Friedman MD [Primary Care Provider] - Jaciel Mathis MD [ACTIVE - CAN ADMIT] - 1 Week (Please follow up with Cardiology in 1 week)
[2024-12-23 16:35] VITALS: BP 108/69; TEMP 98.1
--- NOTE | 2024-12-23 17:56 | CON ---
Date of Consultation: 12/23/2024 Reason For Consultation: Chest pain and palpitations. History Of Present Illness: 44-year-old female presented with chest pain, pressure like, retrosterna l, radiates to the neck, throat, and shoulder and extremely short of breath with minimal exertion. A lso has been having palpitations, and palpitations had been lasting for a long time and leaving behin d significant fatigue and shortness of breath and on and off chest pain that is happening with activi ties and rest as outlined above. She is known to have history of coronary artery disease and spasms. There is no significant coronary artery disease at present. Also has dyslipidemia, on statin. Past Medical History: As outlined above in the HPI. Medications: Refer to reconciliation sheet for detailed list. Allergies: NO KNOWN DRUG ALLERGIES. Family History: No premature coronary artery disease or cancer. Social History: She does not smoke or drink. Does not use any drugs. Review of Systems: All systems were reviewed and they were negative except as mentioned in the HPI. Physical Examination: Vital Signs: Reviewed. Head and Neck: Pupils are equal, reactive to light. Intact eye movements. No JVD. No cervical lym phadenopathy. Neck is supple. Thyroid is not enlarged. Lungs: Clear to auscultation bilaterally. No rhonchi, wheezing, or crackles. No accessory muscle u se. Heart: Regular rate and rhythm. No extra sounds. Abdomen: Soft, nontender. Bowel sounds positive. No organomegaly. No masses or hernia. No rigidi ty or rebound. Extremities: No edema, clubbing, or cyanosis. Intact pulses. Skin: No rash. No nodules. Neurologic: Alert, awake, oriented x3. No acute focal deficits appreciated. Investigations: Troponins x3 are negative. BUN 11, creatinine 0.86, and hemoglobin is 13.7. Assessment And Recommendations: 1. Chest pain, very typical features and symptoms, and it is happening at rest and with activities. This is suggestive of unstable angina. Keep her NPO. Plan for coronary angiogram today, and continu e baby aspirin and beta-elgin. 2. Dyslipidemia. Continue Lipitor 40 mg q.h.s. 3. SVT. Her arrhythmia is due to SVT. Heart rate reaches very high levels 180 to 200. Continue met oprolol 50 mg twice a day. Add Cardizem CD 120 mg daily and discontinue the Imdur. 4. Coronary artery spasm. I will discontinue Imdur and put her on Cardizem CD to control her SVT. T herefore, if her SVT does not get controlled that way, we will plan for outpatient ablation. /ALEKSANDR Voice ID: [id number] Report ID: [id number]
[2024-12-23] MEDS ORDERED: ISOSORBIDE DINIT 20 MG TAB PO SCH (21:00)
[2024-12-23] MEDS ORDERED: VORTIOXETINE HYDROBROMIDE 20 MG PO SCH (21:00)
--- NOTE | 2024-12-23 22:32 | OP ---
Date of Procedure: 12/23/2024 Surgeon: CANDACE BISWAS Procedures Performed: 1. Selective coronary angiogram. 2. Left heart catheterization. Indication: Unstable angina. Access: Right common femoral artery 6-Cameroonian closed with a 6-Cameroonian Mynx closure device. Complications: None. Bleeding: Less than 50 mL. Total Sedation Time: 1 hour, used fentanyl and Versed. Description Of Procedure: After risks, benefits, and alternatives were explained, the patient agreed to procedure and signed informed consent. The [facility] prepped and draped in usual sterile fashion. Then, I accessed the right common femoral arter y using micropuncture kit, ultrasound guidance, fluoroscopy, placed 6-Cameroonian [place] sheath and took a 6-Cameroonian JL-4 catheter into aortic root, engaged the left main, took standard views. There was a left circumflex artery ostial spasm, improved with the nitroglycerin. Then, I exchanged for a 6-Fren ch JR4 catheter over the J-wire across the aortic valve, measured the LVEDP. Pullback did not record any gradient, then engaged the RCA, took standard views and then removed the catheter and the sheath and 6-Cameroonian Mynx closure device was used for closure with good hemostasis. Findings: 1. Left main is normal. 2. LAD; large and normal. Normal diagonal branches. 3. Left circumflex; large and dominant and normal. She had a spasm when the catheter touched the ost ium of the left circumflex, responded very well to nitroglycerin. 4. RCA; moderate size and codominant and normal. 5. LVEDP is normal at 7 mmHg. Conclusion: 1. No coronary artery disease. 2. Significant coronary artery spasm issue. 3. Normal LVEDP. Recommendation: 1. Continue metoprolol. Discontinue Imdur and add Cardizem CD to control her SVT as well. 2. Disposition: Patient can be released home today and follow up with me in the office in a week or 2 after making the above adjustments switching the Imdur to Cardizem. SR/MODL Voice ID: [id number] Report ID: [id number]
[2024-12-24] MEDS ORDERED: PROGESTERONE MICRONIZED 100 MG PO SCH (09:00)
== END 2024-12-23 16:46 | disposition home or self-care (01) ==
LOC: ER 12:02 → ERHOLD 14:14 → 2ND 14:37
PROVIDERS: ADMIT Internal Medicine; ATTEND Internal Medicine
PROC: 4A023N7 Measurement of Cardiac Sampling and Pressure, Left Heart, Percutaneous Approach (ICD-10-PCS; principal; 2024-12-23)
PROC: B2111ZZ Fluoroscopy of Multiple Coronary Arteries using Low Osmolar Contrast (ICD-10-PCS; 2024-12-23)
DX: I20.1 Angina pectoris with documented spasm (principal); I47.10 Supraventricular tachycardia, unspecified; I10 Essential (primary) hypertension; I48.91 Unspecified atrial fibrillation; I34.1 Nonrheumatic mitral (valve) prolapse; E78.5 Hyperlipidemia, unspecified; I25.2 Old myocardial infarction; F41.9 Anxiety disorder, unspecified; F32.A Depression, unspecified; G25.81 Restless legs syndrome; Z82.49 Family history of ischemic heart disease and other diseases of the circulatory system; Z83.3 Family history of diabetes mellitus; Z80.41 Family history of malignant neoplasm of ovary
CPT/HCPCS: 93005; 93306; 85025 ×2; 80048 ×2; 36415 ×2; 83735 ×2; 84100; 85610; 80061; 82947; 80076; 83605; 84484 ×3; 83880; 71045; 93458; 76937; 96375; 96374; 99285; C1893; Q9966; J1644 ×2; J2003; J2250; J3010; J2270 ×5; J2405; J7040 ×2; J7030 ×3; G0378 ×3; C1760; 99152; 99153